=== PATIENT | male | born 1945 | race Caucasian/White ===

== ENCOUNTER → 2017-09-21 08:52 | Outpatient (CLI) | payer OTHER, SELFPAY ==
--- NOTE | 2017-09-21 09:06 | EKG12_ITS ---
Test Reason : PRE OP Blood Pressure : / mmHG Vent. Rate : 066 BPM Atrial Rate : 066 BPM P-R Int : 248 ms QRS Dur : 094 ms QT Int : 386 ms P-R-T Axes : 063 005 030 degrees QTc Int : 404 ms Sinus rhythm with 1st degree A-V block Otherwise normal ECG Confirmed by LESVIA BAIN, YONI ([id number]), acquisitions editor LUZ SO ([id number] on 09/25/2017 2:58:08 PM Referred By: KYLIE Confirmed By:YONI ALKHANI MD
[2017-09-21 09:20] LABS: Hematocrit 41.6 % (40-54); Hemoglobin 14.3 g/dl (13.0-16.5); Mean Corp Hgb Conc 34.4 g/gl (32-36); Mean Corpuscular Volume 96.1 fL (80-94); Mean Platelet Vol. 9.3 fl (6.2-12.0); Platelet Count 167 K/mm3 (150-450); RBC Distribution Width CV 13.3 % (11.6-14.6); RBC Distribution Width SD 46.7 fl (35.1-43.9); Red Blood Count 4.33 M/mm3 (4.6-6.2); Scan Indicated on CBC? Y/N NO; White Blood Count 5.1 K/mm3 (4.4-11.0)
[2017-09-21 09:40] LABS: Anion Gap 6 (5-15); BUN 16 mg/dL (7-18); BUN/Creat Ratio 15.8 RATIO (10-20); Calcium,Total 8.9 mg/dL (8.5-10.1); Chloride 110 mmol/L (98-107); Creatinine, Serum 1.01 mg/dL (0.70-1.30); EST Glomerular Filtration Rate 77 mL/min (>60); Est Glom Filt Rate - Afr Amer 93 mL/min (>60); Glucose 121 mg/dL (74-106); Potassium 4.2 mmol/L (3.5-5.1); Sodium Level 142 mmol/L (136-145)
[2017-09-21 09:48] LABS: Hemoglobin A1c 6.8 % (4.2-6.3)
== END ==
PROVIDERS: Physician Assistant; Family Provider Family Medicine; PCP Family Medicine; Visit Provider Orthopaedic Surgery
DX: Z01.818 Encounter for other preprocedural examination (principal); E11.9 Type 2 diabetes mellitus without complications; Z01.810 Encounter for preprocedural cardiovascular examination
CPT/HCPCS: 36415; 80048; 83036; 85027; 93005

== ENCOUNTER → 2017-09-27 12:47 | Outpatient (CLI) | payer SELFPAY ==
--- NOTE | 2017-09-27 12:43 | STE_ITS ---
Reason For Study: CAD/ASHD, PREOP Stress Results Protocol: Stress Echocardiogram Maximum Predicted HR: 148 bpm Target HR: 126 bpm% Maximum Pr edicted HR: 88 % DurationHeart Rate Stage (mm:ss) (bpm) BP BASELINE 68 130/70 RAY PROTOCOL- STAGE 1 3:00 10 0 132/76 RAY PROTOCOL- STAGE 2 3:00 12 1 148/78 RAY PROTOCOL- STAGE 3 0:30 13 0 / RECOVERY 90 122/62 Stress Duration: 6:30 mm:ss Maximum Stress HR: 130 bpm Baseline Echocardiogram Findings The estimated ejection fraction is 65 %. Stress Echo Wall motion Data Resting WMIntermediate WMStress WM Resting Wall Motion Wall Motion Stress No regional wall motion No regional wall motion abnormalities noted. abnormalities noted. EKG Data Normal intervals are noted. The patient exercised according to the regular Ray protocol for a total duration of 6:30. The maximum heart rate attained was 129 beats per minute. This was 87% of maximum predicted heart rate. The patient exercised into stage 3 of the Ray protocol. During stress, there were no ST or T wave changes noted to suggest ischemia. No clinical angina was noted. Interpretation Summary The estimated ejection fraction is 65 %. Normal, adequate, treadmill echocardiogram. Negative for ischemia by EKG and echocardiographic criteria. No anginal symptoms noted. Rare PVCs noted. Appropriate blood pressure response to exercise. Average exercise capacity for age. Final LVEF of 75%. No complications. Ordering Physician: Terry Barba Referring Physician: Terry Barba Performed By: Olinda Rice RDCS
== END ==
PROVIDERS: Family Provider Family Medicine; PCP Family Medicine; Visit Provider Internal Medicine Cardiovascular Disease
DX: I25.10 Atherosclerotic heart disease of native coronary artery without angina pectoris (principal); E78.5 Hyperlipidemia, unspecified; I10 Essential (primary) hypertension; I25.2 Old myocardial infarction; Z95.5 Presence of coronary angioplasty implant and graft; E11.9 Type 2 diabetes mellitus without complications
CPT/HCPCS: 93017; 93350

== ENCOUNTER → 2018-04-10 09:25 | Outpatient (CLI) | payer SELFPAY ==
[2018-04-08 14:27] VITALS: BMI 34.7
[2018-04-10 11:50] LABS: AST(SGOT) 24 U/L (15-37); Alanine Aminotransfer ALT/SGPT 34 U/L (16-61); Albumin, Serum 3.7 g/dL (3.2-5.0); Alkaline Phosphatase 56 U/L (45-117); Bilirubin, Direct 0.19 mg/dL (0.00-0.30); Cholesterol 114 mg/dL (200); Globulin 3.8 g/dL (2.2-4.2); High Density Lipoprotein 46 mg/dL; Protein, Total 7.5 g/dL (6.4-8.2); Triglycerides 121 mg/dL; Very Low Density Lipoprotein 24 mg/dL (5-40)
--- OUTSIDE RECORDS SUMMARY | 2018-05-27 05:36 | XMS RPT_ITS ---
:1945 Author Organization [place] Support Name Relationship Address Phone [facility] Unavailable [address] + [place] [address] JEROME, STARR Unavailable Unavailable + [facility] Unavailable Unavailable + [facility] Unavailable [address] + [place] [address] JEROME, STARR Unavailable [address] + [place] [address] [facility] Unavailable . + [place], [place] . [facility] Unavailable [address] + [place] [address] JEROME, STARR Unavailable [address] + [place] [address] JEROEM, ROSE Unavailable Unavailable + [facility] Unavailable [address] + [place] [address] JEROME, STARR Unavailable [address] + [place] [address] JEROME, ROSE Unavailable Unavailable + [facility] Unavailable [address] + [place] [address] [facility] Unavailable [address] + [place] [address] JEROME, STARR Unavailable [address] + [place] [address] JEROME, ROSE Unavailable Unavailable + [facility] Unavailable [address] + [place] [address] [facility] Unavailable [address] + [place] [address] CHETAN MARTÍNEZ Unavailable [address] + [place] [address] Care Team Providers Name Role Phone LELO MONROY (STEPHEN) Referring Unavailable ADAIR MERRILL Attending Unavailable ADAIR MERRILL Referring Unavailable DESIRAE ADAIR A Referring Unavailable DESIRAEBELLAADAIR A Attending Unavailable DESIRAE, ADAIR A Referring Unavailable DESIRAE, ADAIR A Referring Unavailable Terry Barba Attending Unavailable Terry Barba Referring Unavailable Desirae, Adair Primary Care Unavailable Terry Barba Attending Unavailable Adair Merrill Referring Unavailable Desirae, Adair Primary Care Unavailable Daljit Griffin Attending Unavailable Desirae, Adair Primary Care Unavailable Terry Barba Attending Unavailable Terry Barba Referring Unavailable Adair Merrill Primary Care Unavailable Terry Barba Attending Unavailable Evan Lakhani Attending Unavailable Daljit Griffin Referring Unavailable Terry Braba Attending Unavailable Adair Merrill Referring Unavailable PROBLEMS PROBLEMS DATE TYPE CONDITION / CODE ATTENDING STATUS SOURCE 04/10/2018 Unknown E78.5 - Terry Barba Active [facility] Hyperlipidemia, Community unspecified / Hospital E78.5(ICD-10) Repository 04/10/2018 Unknown I25.10 - Terry Barba Active [facility] Atherosclerotic heart Community disease of [facility] coronary artery Repository without angina pectoris / I25.10(ICD-10) 02/22/2018 Active Encounter for general NA Active [facility] adult medical [facility] Main examination without [place] abnormal findings / Repository Z00.00(ICD-10) 12/11/2016 Active Encounter for Active [facility] screening for Clinic Main malignant neoplasm of [place] colon / Repository Z12.11(ICD-10) 08/14/2017 Active Type 2 diabetes Active [facility] mellitus with Clinic Main hyperglycemia / [place] E11.65(ICD-10) Repository 12/11/2016 Active Disorder of prostate, NA Active [facility] unspecified / Clinic Main N42.9(ICD-10) [place] Repository 09/25/2017 Unknown Z01.818 - Encounter Gesler, Daljit Active [place] for other Community preprocedural Hospital examination / Repository Z01.818(ICD-10) 11/01/2017 Unknown I10 - Essential Evan Lakhani Active [facility] (primary) Community hypertension / Hospital I10(ICD-10) Repository 11/01/2017 Unknown I25.2 - Old Evan Lakhani Active [facility] myocardial infarction Community / I25.2(ICD-10) Hospital Repository 12/11/2016 Active Essential (primary) NA Active [facility] hypertension / Clinic Main I10(ICD-10) [place] Repository 11/06/2016 Active Mixed hyperlipidemia NA Active [facility] / E78.2(ICD-10) [facility] Main [place] Repository 08/08/2017 Active Atherosclerotic heart NA Active [facility] disease of [place] [facility] Main coronary artery [place] without angina Repository pectoris / I25.10(ICD-10) PROCEDURES PROCEDURES No Procedure Records FoundRESULTS RESULTS HOSP Observed: 04/17/2018 Status: COMPLETED Source: [place] 12:00 AM [facility] REPOSITORY Patient Update (FAMPWS) ESTELLA GALVAN ([id number]) 1945 M Date Time Provider Department 04/17/18 [facility]IR [facility]LL [facility] During your visit today, we recorded the following information about you: Allergies As of Date: 04/17/2018 Noted Allergy Reaction DIOVAN (VALSARTAN) 02/09/2005 3 - Cough CRESTOR (ROSUVASTATIN CALCIUM) 11/01/2006 14 - Other: See Comments Comments: rash and sore muscles METFORMIN 08/01/2005 6 - Diarrhea ZINC 02/09/2005 5 - Intolerance Comments: chest pain Date Reviewed: 02/22/2018 Reviewed by: Adair Merrill - Fully Assessed Order(s):LIPID PANEL (OUTSIDE) [[id number]] Order #: [id number] Prescriptions as of 04/17/2018 Sig: * ASPIRIN 81 MG TABLET 2 tablets daily ATENOLOL 50 MG TABLET Take 1 tablet by mouth once d* CINNAMON BARK 500 MG CAPSULE Take 500 mg by mouth. CLOTRIMAZOLE-BETAMETHASONE 1 * Apply 1 application to affect* VITAMIN D2 ORAL Take 2,000 Units by mouth. FLURBIPROFEN 100 MG TABLET TAKE ONE TABLET BY MOUTH TWIC* GLIMEPIRIDE 4 MG TABLET Take 1 tablet by mouth daily * QDUAQFSUJFM-PDGNEATGG-XPH C-M* Take 1 capsule by mouth twice* LOSARTAN 50 MG-HYDROCHLOROTHI* Take 1 tablet by mouth once d* METFORMIN ER 500 MG TABLET,EX* Take 1 tablet by mouth twice * UATSVPBSPOJH-YHQIELJO-PQNAPO * Take 1 tablet by mouth once d* NITROGLYCERIN 0.4 MG SUBLINGU* Dissolve 1 tablet under the t* ORPHENADRINE CITRATE ER 100 M* Take 1 tablet by mouth once d* SIMVASTATIN 80 MG TABLET Take 1 tablet by mouth daily * Problem List As Of Date 04/17/2018 Noted Resolved Generalized osteoarthrosis, unspecified site [M*INVALID FOR* Mixed hyperlipidemia [E78.2] INVALID FOR* Coronary atherosclerosis [I25.10] INVALID FOR* More... History of coronary artery stent placement [Z95*INVALID FOR* More... KARLA (obstructive sleep apnea) [G47.33] INVALID FOR* More... Ex-smoker [Z87.891] INVALID FOR* More... Well adult exam [Z00.00] INVALID FOR* More... Phimosis [N47.1] INVALID FOR* Benign prostatic hyperplasia without lower urin*INVALID FOR* Prostate disorder [N42.9] INVALID FOR* Hypertension, essential [I10] INVALID FOR* Screening for colon cancer [Z12.11] INVALID FOR* Microscopic hematuria [R31.29] INVALID FOR* Diabetic eye exam (HCC) [Z01.00, E11.9] INVALID FOR* More... controlled type 2 diabetes mellitus without com*INVALID FOR* Nocturnal leg cramps [G47.62] INVALID FOR* Encounter Status:Closed by ADAIR MERRILL on 04/17/18 LIVER PROFILE Collected: 04/10/2018 Status: F Source: [place] 9:33 AM [facility] REPOSITORY TYPE CODE TESTS RESULT OUT OF RANGE REFERENCE UNITS LAB L501.1500 6.4-8.2 g/dL Normal T PROT 7.5 LAB L501.1800 3.2-5.0 g/dL Normal ALB 3.7 LAB L501.1950 2.2-4.2 g/dL Normal GLOB 3.8 LAB L501.4100 15-37 U/L Normal AST 24 LAB L501.4305 45-117 U/L Normal ALK P 56 LAB L501.4405 16-61 U/L Normal ALT 34 LAB L501.4600 0.20-1.00 mg/dL Normal T BILI 0.60 LAB L501.4700 0.00-0.30 mg/dL Normal D BILI 0.19 Performed By: #### L500.3400, L500.4100 #### [facility] [address] [place], [place], [id number] LIPID PROFILE Collected: 04/10/2018 Status: F Source: [place] 9:33 AM [facility] REPOSITORY TYPE CODE TESTS RESULT OUT OF RANGE REFERENCE UNITS LAB L501.4900 200 mg/dL Normal CHOL 114 Result Comment: <200 mg/dL Desirable 200-240 mg/dL Borderline >240 mg/dL High Risk LAB L501.5000 mg/dL Normal TRIG 121 Result Comment: The drugs N-Acetylcysteine and Metamizole may falsely depress this assay. Serum Triglycerides Reference Interval Normal <150 mg/dL Borderline high 150 - 199 mg/dL High 200 - 499 mg/dL Very High > or = 500 mg/dL LAB L501.6400 mg/dL Normal HDL 46 Result Comment: The drugs N-Acetylcysteine and Metamizole may falsely depress this assay. Reference Range HDL <40 mg/dL Low HDL Cholesterol HDL >or= 60 mg/dL High HDL Cholesterol LAB L501.6500 0-130 mg/dL Normal LDL 44 LAB L501.6600 5-40 mg/dL Normal VLDL 24 Performed By: #### L500.3400, L500.4100 #### [facility] [address] [place], [place], [address] CARDIOLOGY VISIT Observed: 04/08/2018 Status: F Source: [place] REPORT 2:36 PM [facility] REPOSITORY [facility] [address] [place] [address] OFFICE VISIT Date of Service: 04/08/18 MR#: [id number] Acct: [id number] Name: ESTELLA GALVAN Rep #: [id number] : 1945 Provider: Terry Barba MD Age/Sex: 73/M Location: [facility] Status: Signed HPI HPI Chief Complaint: Routine f/u Details: Referring physician: Dr. Luis Bear It was a pleasure seeing your patient, Estella Galvan, today in our office. He is returning for followup of his coronary artery disease. As you know he is a very pleasant 73-year-old nondiabetic gentleman with a history of hypertension, hypercholesterolemia, coronary artery disease status post acute inferior wall myocardial infarction with bare metal stenting placed at [facility] to the mid right coronary artery . Since that time he has been doing relatively well. Since his last visit Mr. Galvan has had no chest, neck, jaw, arm discomfort to suggest angina,, pedal edema, palpitations, near syncope, or syncope. He underwent a previous stress echocardiogram on 05/24/11 which was negative for inducible ischemia, and he has an EF of 55%. He then had a repeat stress echocardiogram done in January 2013 which was also negative for inducible ischemia. 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 As part of his cardiac workup, he also underwent a repeat stress echo on 02/13/15 which was negative for inducible ischemia.patient continues to exercise by mowing his grass with an old-fashioned lawnmower without any difficulty. He has no anginal symptoms. Part of his workup for his spinal surgery by Dr. Hernandez, he underwent a stress echocardiogram on 09/27/17 which was negative for inducible ischemia. From a cardiac standpoint he denies any chest pain, angina, shortness of breath or dyspnea on exertion. In our office today his blood pressure is 140/60, pulse is 72 and regular. His physical exam is as below. His lipids as of 01/25/15 showed HDL of 45 and LDL 41. lipids as of 07/19/15 showing HDL 47 and LDL of 57. His lipids as of 07/08/16 showed LDL 37 and HDL 44. His lipids as of 01/20/17 shown LDL of 37 and an HDL of 45. Repeat lipids are pending per Intake Vital Signs04/08/18 Height 5 ft 6 in 04/08/18 Weight: 215 lb 04/08/18 Body Mass Index (BMI) 34.7 04/08/18 Blood Pressure 140/60 H Intake Visit Reasons: 6 M FU Allergies rosuvastatin [From Crestor] Allergy (Intermediate, Verified 04/08/18 14:29) Rash Medications antiarthritic combination no.2 900 mg tablet See Rx Instructions PO .q day tab 08/18/17 [History Confirmed 04/08/18] aspirin 81 mg tablet,delayed release 81 mg PO QDAY 08/18/17 [History Confirmed 04/08/18] cholecalciferol (vitamin D3) 2,000 unit tablet 2,000 unit PO QDAY 08/18/17 [History Confirmed 04/08/18] flurbiprofen 100 mg tablet 100 mg PO BID 08/18/17 [History Confirmed 04/08/18] glimepiride 4 mg tablet 4 mg PO QAM 08/18/17 [History Confirmed 04/08/18] metformin 500 mg tablet 500 mg PO BID 08/18/17 [History Confirmed 04/08/18] multivitamin tablet 1 tab PO QDAY 08/18/17 [History Confirmed 04/08/18] orphenadrine citrate ER 100 mg tablet,extended release 100 mg PO .q day tab 08/18/17 [History Confirmed 04/08/18] simvastatin 80 mg tablet 80 mg PO QPM #90 tab 08/20/17 [Rx Confirmed 04/08/18] atenolol 25 mg tablet 25 mg PO DAILY #90 tab 02/11/18 [Rx Confirmed 04/08/18] losartan 50 mg-hydrochlorothiazide 12.5 mg tablet 1 tab PO QDAY #90 tab 02/11/18 [Rx Confirmed 04/08/18] nitroglycerin 0.4 mg sublingual tablet 0.4 mg SUBLINGUAL Q5- 15M PRN #25 tab 04/08/18 [Rx Confirmed 04/08/18] [facility] Medical History Hyperlipidemia (Chronic) Hypertension (Chronic) Nonrheumatic mitral (valve) prolapse (Chronic) History of anterior wall myocardial infarction (Chronic) Atherosclerotic heart disease of [place] coronary artery without angina pectoris (Chronic) Diabetes mellitus type II, controlled (Chronic) Surgical History Stented coronary artery (Chronic) Family History Father , age 81 CAD (coronary artery disease) History of angioplasty, stent, CABG and valvular heart disease Mother , age 42 Heart disease Brother No problems noted. Sister , age 57 of renal cancer Renal cancer Social History Smoking Status: Former smoker ROS Const Const: Positive for other (Feels well); negative for fatigue, weakness, body ache, fever(s), headache(s), chills, frequent falls, night sweats, daytime sleepiness, difficulty sleeping, excessive sweating, weight gain, weight loss, increased appetite, poor appetite or anorexia Eyes Eyes: Negative for blind spots, loss of peripheral vision, transient loss of vision, blurry vision, change in vision, double vision, floaters, tunnel vision or other ENT ENT: Negative for headache(s), dizziness, hearing loss, tinnitus, Nosebleed/epistaxis, balance problems, post nasal drip, lip swelling, tongue swelling, bleeding gums, hoarseness, neck pain, dry mouth or other Cardio Chest Pain: No Palpitations: No Edema: None Muscle aches with walking: None Resp Respiratory: Negative for SOB with activity, SOB at rest, SOB orthopnea\SOB lying down, Cough, Coughing up blood/hemoptysis, chest congestion, pain on inspiration, snoring, stridor, wheezing, crackles, paroxysmal nocturnal dyspnea or other GI GI: Negative nausea, vomiting, heartburn, constipation, belching, bloating, cramping, vomiting blood/hematemesis, bright, red blood in stools, black,tarry stools, loose stools, Difficulty Swallowing or other : Negative for hematuria, frequent nighttime urination/ nocturia, erectile dysfunction or abnormal vaginal bleeding Musc Musc: Negative for balance problems, muscle aches/ myalgia, muscle weakness or joint pain Skin Skin: Negative redness, non-healing lesions, rash, unusual bruising, skin ulcer, wounds, jaundice or other Neuro Neuro: Negative for weakness, headache(s), frequent falls, blurry vision, double vision, dizziness, lightheadedness, near syncope, syncope, orthostatic symptoms, confusion, memory loss, restless legs, vertigo, seizures, lack of coordination or other Jesus Hematologic/Lymphatic: Negative for easy bleeding, easy bruising, enlarged lymph nodes or other Endo Endo: Negative for fatigue, excessive sweating, cold intolerance, heat intolerance, flushing, increased thirst/drinking, increased hunger, hair loss, hair growth or other Psych Psych: Negative for anxiety, depression, thoughts of harming anyone, thoughts of harming yourself, visual hallucinations, panic attacks or audible hallucinations Allergy Allergy/Immunology: Negative for lip swelling, Negative for tongue swelling, Negative for rash, Negative for throat swelling, Negative for hives Cardiology Exam Const Appearance: cooperative, healthy appearing and no acute distress Nutritional Appearance: well nourished Orientation: alert, oriented x3 and oriented to person Head Head: normal to inspection, atraumatic and normocephalic Nose: external nose normal Face and Sinus: face symmetric Mouth: oral mucosae normal Eyes General: appearance normal, both eyes and all related structures Eyelids: eyelids normal Conjunctivae: conjunctivae normal Pupils: PERRL and normal by confrontation EOM: EOM intact bilaterally Neck Neck: normal visual inspection and full ROM Carotids: normal carotid upstroke Chest Chest inspection: normal inspection of the chest Auscultation: Bilateral: Clear to Auscultation Cardio Palpation: normal PMI Rate: regular rate Rhythm: regular rhythm Heart sounds: S1 normal and S2 normal GI GI: normal to inspection, no hepatosplenomegaly and bowel sounds present Neuro General: alert, oriented x3, awake, CN's II-XI intact bilaterally and moves all extremities Skin Skin: no rashes or lesions noted Extremities Pulses: Normal: Right Femoral Pulse, Left Femoral Pulse, Right Dorsalis Pedis Pulse, Left Dorsalis Pedis Pulse, Right Posterior Tibial Pulse, Left Posterior Tibial Pulse, Right Radial Pulse, Left Radial Pulse Lower Extremity Edema: None: Bilateral Psych Psychological: normal affect Assessment AND Plan 1. Atherosclerotic heart disease of [place] coronary artery without angina pectoris I25.10 anterior MS,08/01/1997 PTCA and BMS to mid RCA per Dr. Tobar @ [facility] Plan 1. Coronary artery disease: No exertional anginal symptoms at this time. No indication for any additional testing. Recommended he continue his baby aspirin, atenolol, Hyzaar. I encouraged him to continue to exercise. His stress test in August 2017 was negative for inducible ischemia and he underwent spinal surgery without complications or difficulty and he feels much better. Orders Orders: 2. Hyperlipidemia E78.5 Plan 2. Hyperlipidemia: His LDL and HDL cholesterol were at goal. Repeat lipid profile pending. Continue Zocor. 3. Return office in 6 months. This note was generated using a voice recognition system and there may be incorrect words, spelling or punctuation that were not noted when reviewing the office note prior to saving. Orders Orders: Plan Detail Other Medications New: Follow Up +6M ([place]) Coding Level of Care Code Off vis,est,level 3 Diagnoses Atherosclerotic heart disease of [place] coronary artery without angina pectoris I25.10 Hyperlipidemia E78.5 Coding Level of Care Code Off vis,est,level 3 Diagnoses Atherosclerotic heart disease of [place] coronary artery without angina pectoris I25.10 Hyperlipidemia E78.5 04/08/18 1436 <Electronically signed by Terry Barba MD> Date Terry Barba MD Cosigner Signature: Date (if applicable) CC: Adair Merrill MD FECAL OCCULT BLD Collected: 04/08/2018 Status: F Source: [facility] 7:00 AM [facility] REPOSITORY TYPE CODE TESTS RESULT OUT OF REFERENCE UNITS RANGE LAB IFO Negative Immuno Negative FOB Result Comment: This test was developed and its performance characteristics determined by [facility] [place] (-[facility]). It has not been cleared or approved by the FDA. -[facility] is regulated under CLIA as qualified to perform high-complexity testing. This test is used for clinical purposes. It should not be regarded as investigational or for research. Performed By: #### IFOBT #### [facility] [address] [place], [place] [address] PROGRESS Observed: 02/22/2018 Status: COMPLETED Source: [place] 3:13 PM [facility] REPOSITORY HNO ID: [id number] Author: Adair Merrill Service: (none) Author Type: Physician Type: Progress Notes Filed: 02/22/2018 4:38 PM Note Text: Chief Complaint Patient presents with: Physical Imm/Inj: Flu Vaccine HPI Estella Galvan is a 73 year old male who presents here today for WAE and routine. Patient with Hx of DM type 2, HTN, Hyperlipidemia, CAD, COPD. Patient has been doing ok. Continues routine use of CPAP and notes benefit. Past medical history, appointments, medications, allergies reviewed. Previous Medical History PAST MEDICAL HISTORY Diagnosis Date - Benign prostatic hyperplasia without lower urinary tract symptoms 12/11/2016 - controlled type 2 diabetes mellitus without complication, without long-term current use of insulin (HCC) 08/14/2017 - Coronary atherosclerosis 05/02/2007 - Ex-smoker 12/11/2016 Started at age 17 yo, Up to 7-10 pipes a day. Quite at age 53 - Generalized osteoarthrosis, unspecified site 06/16/2005 - History of coronary artery stent placement 12/19/2012 - Hypertension, essential 12/11/2016 - Mixed hyperlipidemia 11/07/2005 - KARLA (obstructive sleep apnea) 12/19/2012 - Phimosis 12/11/2016 - Type II or unspecified type diabetes mellitus without mention of complication, not stated as uncontrolled 12/23/2014 Previous Surgical History PAST SURGICAL HISTORY Procedure Laterality Date - FECAL OCCULT BLOOD TEST 12/29/2016 negative - PAST SURGICAL HISTORY OF 07/09/2017 right carpal tunnel repair - PAST SURGICAL HISTORY OF 09/2017 C6, C7 block and plates - STRESS TEST 09/27/2017 negative - TOTAL KNEE REPLACEMENT Right - TOTAL KNEE REPLACEMENT Left Family History FAMILY HISTORY Problem Relation Age of Onset - Coronary Artery Disease Father after CABG at 81 - Cancer Sister renal - Kidney Disease Brother - other (Funk's Dz) Brother - Coronary Artery Disease Paternal Uncle 70's Patient Allergies ALLERGIES Allergen Reactions - Diovan [Valsartan] Cough - Crestor [Rosuvastat* Other: See Comments rash and sore muscles - Metformin Diarrhea - Zinc Intolerance chest pain Current Medications Current Outpatient Prescriptions on File Prior to Visit: metFORMIN ER (GLUCOPHAGE XR) 500 mg 24 hr tablet Take 1 tablet by mouth twice daily. Flurbiprofen 100 mg tablet TAKE ONE TABLET BY MOUTH TWICE DAILY FOR ARTHRITIS glimepiride (AMARYL) 4 mg tablet Take 1 tablet by mouth daily with breakfast. clotrimazole-betamethasone (LOTRISONE) cream Apply 1 application to affected area twice daily. ERGOCALCIFEROL, VITAMIN D2, (VITAMIN D2 ORAL) Take 2,000 Units by mouth. Frthtovemut-Cvzgtjzbe-Fyb C-Mn (GLUCOSAMINE CHONDROITIN MAXSTR) 500-400 mg cap Take 1 capsule by mouth twice daily. atenolol (TENORMIN) 50 mg tablet Take 1 tablet by mouth once daily. orphenadrine ER (NORFLEX) 100 mg tablet Take 1 tablet by mouth once daily. at night for leg cramps as needed nitroglycerin sublingual (NITROQUICK) 0.4 mg SL tablet Dissolve 1 tablet under the tongue as directed. EVERY 5 MIN X3 losartan-hydrochlorothiazide (HYZAAR) 50-12.5 mg per tablet Take 1 tablet by mouth once daily. simvastatin (ZOCOR) 80 mg tablet Take 1 tablet by mouth daily at bedtime. Per Dr. Barba Cinnamon Bark (CINNAMON) 500 mg cap Take 500 mg by mouth. Hzcbvfwdmjrpx-Faugtbjs-Vcuydk (CENTRUM SILVER) Tab Take 1 tablet by mouth once daily. Aspirin 81 mg ORAL Tab 2 tablets daily No current facility-administered medications on file prior to visit. Social History Social History Marital status: Spouse name: Years of education: Number of children: Social History Main Topics Smoking status: Former Smoker Packs/day: 0.00 Years: 0.00 Quit date: 07/29/1997 Smokeless tobacco: Former User Alcohol use: No Drug use: No Sexual activity: Not Currently Review of Symptoms REVIEW OF SYSTEMS GENERAL: No weight loss, malaise or fevers HEENT: Negative for frequent or significant headaches, significant change in vision, significant vision problems, significant ear problems or hearing loss, nasal discharge, or nose bleeds, sore throat, difficulty swallowing, mouth lesions, hoarseness NECK: Negative for lumps, goiter, pain and significant neck swelling RESPIRATORY: Negative for cough, hemoptysis, wheezing, COPD, dyspnea or shortness of breath CARDIOVASCULAR: Negative for chest pain, increased leg swelling, hypertension, CHF or palpitations GI: No nausea, vomiting, or diarrhea, No heartburn or reflux symptoms and no blood : No history of dysuria, frequency or blood MUSCULOSKELETAL: Negative for new or changes in typical joint pain,, back pain or muscle pain SKIN: Negative for lesions, rash, and itching PSYCH: Negative for sleep disturbance, mood disorder and recent psychosocial stressors HEMATOLOGY/LYMPHOLOGY: Negative for prolonged bleeding, bruising easily or swollen nodes ENDOCRINE: Negative for cold or heat intolerance and no symptoms of low BS's NEURO: No history of headaches, syncope, paralysis, seizures or tremors and no symptoms of low BS's EXAM: BP 136/60 (BP Site: Right Arm, BP Position: Sitting, BP Cuff Size: Large Adult) Pulse 70 Resp 12 Ht 165.1 cm (5' 5) Wt 95.7 kg (211 lb) BMI 35.11 kg/m? General Appearance: Well appearing, alert, in no acute distress, well-hydrated, well nourished. and Obese. Skin: Skin color, texture, turgor normal, no suspicious rashes or lesions. Head: Normocephalic, no masses, lesions, tenderness or abnormalities. Eyes: Anicteric sclera. Pupils are equally round and reactive to light. Extraocular movements are intact. . Ears: External ears normal, canals clear. Nose/Sinuses: Nares normal, septum midline, mucosa normal, no drainage or sinus tenderness. Oropharynx: Lips, mucosa, and tongue normal, teeth and gums normal, oropharynx normal. Neck: Supple, no adenopathy; thyroid symmetric, normal size, no bruits. Lungs: Lungs clear to auscultation. No wheezing, rhonchi, rales. Heart: RRR without murmur, gallop, or rubs. No ectopy. Abdomen: Normal abdominal exam, Abdomen soft, non-tender. Bowel sounds normal. No masses, organomegaly. Extremities: No deformities, edema, skin discoloration,. Musculoskeletal: Spine range of motion normal. Muscular strength intact, No joint swelling, deformity, or tenderness. Peripheral Pulses: Normal. Neurologic: Gait normal. Reflexes normal and symmetric. Sensation to light touch and crainal nerves 2-12intact.. Genitalia: Normal, Penis normal. No urethral discharge. Scrotum normal to palpation. No hernia. Four skin retractable.. Rectal: Normal exam. Prostate enlarged but smooth firm capsule. Diabetic Foot Exam: Feet: Shoes and socks removed, no deformities, ulcers, calluses, normal distal pulses, sensitive to 10 gm microfilament and vibratory exam within normal limits Skin: warm and dry Vascular Pulses: Normal SEMMES-NIHARIKA MONOFILAMENT TESTING Left Foot Right Foot Dorsal Surface Intact Dorsal Surface Intact Plantar Surface Intact Plantar Surface Intact Health Maintenance List BP CONTROLLED (<130/80) due on 1963 HEPATITIS C SCREENING due on 1989 FECAL OCCULT BLOOD due on 12/29/2017 INFLUENZA(1) due on 12/29/2017 STATIN MED ADHERENCE due on 02/28/2018 DIABETES MED ADHERENCE due on 02/28/2018 DTAP,TDAP,TD(2 - Td) due on 05/22/2018 URINE ALBUMIN:CREATININE RATIO due on 08/08/2018 ANNUAL PCP TEAM CHRONIC DISEASE VISIT due on 08/14/2018 HBA1C due on 08/19/2018 DILATED RETINAL EXAM due on 12/18/2018 LDL CHOLESTEROL due on 2019 DIABETIC FOOT EXAM due on 02/22/2019 ABDOMINAL AORTIC ANEURYSM SCREENING TOPIC Completed ADULT PREVNAR-13 Completed PNEUMOVAX AGE 65 AND OVER WITH 5YR LOOKBACK Completed Data reviewed Component Latest Ref Rng AND Units 08/08/2017 09/21/2017 2018 WBC 3.70 - 11.00 k/uL 5.1 5.35 RBC 4.20 - 6.00 m/uL 4.33 4.41 Hemoglobin 13.0 - 17.0 g/dL 14.8 Hematocrit 39.0 - 51.0 % 43.8 MCV 80.0 - 100.0 fL 96.1 99.3 MCH 26.0 - 34.0 pG 33.0 33.6 MCHC 30.5 - 36.0 g/dL 34.4 33.8 RDW-CV 11.5 - 15.0 % 13.0 Platelet Count 150 - 400 k/uL 187 MPV 9.0 - 12.7 fL 9.3 10.5 Neut% % 42.8 Abs Neut (ANC) 1.45 - 7.50 k/uL 2.27 Lymph% % 40.0 Abs Lymph 1.00 - 4.00 k/uL 2.14 Republic% % 12.5 Abs Republic <0.87 k/uL 0.67 Eosin% % 3.6 Abs Eosin <0.46 k/uL 0.19 Baso% % 1.1 Abs Baso <0.11 k/uL 0.06 Nucleated Reds 0 /100 WBC 0.0 Absolute nRBC <0.01 k/uL <0.01 Diff Type Auto Diff Protein, Total 6.3 - 8.0 g/dL 8.0 Albumin 3.9 - 4.9 g/dL 4.4 Calcium 8.5 - 10.2 mg/dL 9.8 Bilirubin, Total 0.2 - 1.3 mg/dL 0.5 Alkaline Phosphatase 36 - 108 U/L 47 AST 14 - 40 U/L 21 Glucose 74 - 106 MG/DL 136 (H) 121 (A) BUN 9 - 24 mg/dL 12 Creatinine 0.6 - 1.3 MG/DL 0.99 1.01 Sodium 136 - 145 MEQ/L 142 142 Potassium 3.5 - 5.1 MEQ/L 4.5 4.2 Chloride 98 - 107 MEQ/L 103 110 (A) CO2 22 - 30 mmol/L 26 Anion Gap 13 6 ALT 10 - 54 U/L 22 eGFR- >60 eGFR-All Other Races . >60 BICARBONATE 26.0 Urea Nitrogen 6 - 20 mg/dL 15.8 GFR mL/MIN 77 GFR AFR AMER mL/MIN 93 Calcium 8.8 - 10.5 MG/DL 8.9 HGB 14 - 16.5 g/dL 14.3 HCT 39 - 55 % 41.6 RDW 140 - 440 K/uL 13.3 (A) Platelet 140 - 440 K/uL 167 Cholesterol, Total <200 mg/dL 128 110 Triglyceride <150 mg/dL 148 110 HDL Cholesterol >39 mg/dL 51 43 LDL Cholesterol <100 mg/dL 47 45 Non HDL Cholesterol <130 mg/dL 77 67 Fasting Time hrs 12 12 VLDL Cholesterol <30 mg/dL 30 (H) 22 TC:HDL Ratio <5.10 2.51 2.56 LDL:HDL Ratio <2.54 0.92 1.05 Hemoglobin A1C 4.3 - 5.6 % 6.8 (A) 7.0 (H) Estimated Average Glucose mg/dL 154 PSA 0.00 - 2.59 ng/mL 1.01 A/P ASSESSMENT/PLAN: 1. Well adult exam - ICD9: V70.0, ICD10: Z00.00 (primary diagnosis) - Completed Digital Rectal exam - Recommended regular aerobic exercise. - Follow up for annual exam in one year. - FECAL OCCULT BLOOD TEST 2. controlled type 2 diabetes mellitus without complication, without long-term current use of insulin (HCC) - ICD9: 250.02, ICD10: E11.65 Controlled. - Continue current medications - Encouraged regular aerobic exercise and weight loss - Daily Asprin therapy recommended - BP goal of <130/80 - LDL goal of <100 - Patient to work on improved diet to get A1c back below 7% 3. Diabetic eye exam (HCC) - ICD9: V72.0, 250.00, ICD10: Z01.00, E11.9 - Up to date 4. Hypertension, essential - ICD9: 401.9, ICD10: I10 - good control - Continue current medication(s) - Recommended regular aerobic exercise. - Recommend home blood pressure monitoring, to bring results in on next visit - Goal of BP <130/80 5. Mixed hyperlipidemia - ICD9: 272.2, ICD10: E78.2 - good control - Continue current medication. - Encouraged following a low fat, low cholesterol diet. - Discussed the benefits of regular aerobic exercise and weight loss. - Encouraged following a low carbohydrate, healthy oil intake diet. 6. Atherosclerosis of [place] coronary artery of [place] heart without angina pectoris - ICD9: 414.01, ICD10: I25.10 - Clinically stable no changes and cont f/u with cardio 7. KARLA (obstructive sleep apnea) - ICD9: 327.23, ICD10: G47.33 - Doing well and benefiting from CPAP. 8. Benign prostatic hyperplasia without lower urinary tract symptoms - ICD9: 600.00, ICD10: N40.0 - No clinical issues. 9. Nocturnal leg cramps - ICD9: 327.52, ICD10: G47.62 - Cont nightly norflex. 10. Need for vaccination - ICD9: V05.9, ICD10: Z23 - INFLUENZA SEASONAL HIGH DOSE AGE 65+ 11. Screening for colon cancer - ICD9: V76.51, ICD10: Z12.11 Check - FECAL OCCULT BLOOD TEST Signed Prescriptions Disp Refills orphenadrine ER (NORFLEX) 100 mg tablet 30 tablet 5 Sig: Take 1 tablet by mouth once daily. at night for leg cramps as needed BRENNEN: No F/u 6 months routine check A1c, CMP, FLP, UA, urine albumin and CBC prior. Adair Merrill MD CNOV Observed: 02/22/2018 Status: COMPLETED Source: [place] 3:00 PM [facility] REPOSITORY Office Visit (FAMPWS) JEROMEESTELLA ([id number]) 1945 M Date Time Provider Department 02/22/18 3:00 PM ADAIR MERRILL FAMPWS During your visit today, we recorded the following information about you: Pulse Respiration Blood pressure Weight 70/minute 12/minute 136/60 95.7 kg Height 1.651 m Katelyn Taylor Cma 02/22/2018 4:38 PM Signed 73 year old male here for INACTIVATED INFLUENZA VACCINE. [id number] Season Patient is identified by name and date of : Yes [] CONTRAINDICATIONS color enhanced section Age less than 6 months? No Allergy to eggs, chicken, chicken feathers, or chicken dander? No Allergy to thimerosal (a preservative) or formaldehyde, gelatin? No History of severe reaction to any vaccine component or a previous dose of influenza vaccination? No History of Guillain-[place] Syndrome within 6 weeks after a previous influenza vaccine? No Patient is not moderately or severely ill? No Current temperature greater or equal to 100.4F? No History of Bone Marrow Transplant prior 6 months or solid organ transplant in the past 3 months ? No History of fainting after a prior injection or medical procedure? No- ? If patient has fainted in the past, the CDC recommends sitting or lying down for 15 minutes after the vaccination. [] VERIFICATION color enhanced section Was the answer Yes for any of the above contraindications? No contraindications present. Acceptable to proceed with vaccine. Patient/guardian agrees the above answers are true to the best of their knowledge? Yes Flu vaccine information sheet given? Yes See immunization activity in [facility] for details of immunizations adminstered today. Patient age: [age] year old For The 2249-5222 Flu Season 6-35 months old: Fluzone 0.25 ml - IM (Preservative Free) 3 years of age: Fluzone 0.5 ml - IM (Preservative Free) 3 years and older: Fluzone 0.5 ml- IM-(with Preservatives) 65+ years old: 2-49 years old Fluzone High-Dose 0.5 ml - IM (Preservative Free) FLUMIST- intranasal REMEMBER: If patient is less than 9 years of age and this is the first vaccine of Influenza to be received in any flu season, they should receive a second dose in one months time. Adair Merrill MD 02/22/2018 4:38 PM Signed Chief Complaint Patient presents with: Physical Imm/Inj: Flu Vaccine HPI Estella Galvan is a 73 year old male who presents here today for WAE and routine. Patient with Hx of DM type 2, HTN, Hyperlipidemia, CAD, COPD. Patient has been doing ok. Continues routine use of CPAP and notes benefit. Past medical history, appointments, medications, allergies reviewed. Previous Medical History PAST MEDICAL HISTORY Diagnosis Date - Benign prostatic hyperplasia without lower urinary tract symptoms 12/11/2016 - controlled type 2 diabetes mellitus without complication, without long-term current use of insulin (HCC) 08/14/2017 - Coronary atherosclerosis 05/02/2007 - Ex-smoker 12/11/2016 Started at age 17 yo, Up to 7-10 pipes a day. Quite at age 53 - Generalized osteoarthrosis, unspecified site 06/16/2005 - History of coronary artery stent placement 12/19/2012 - Hypertension, essential 12/11/2016 - Mixed hyperlipidemia 11/07/2005 - KARLA (obstructive sleep apnea) 12/19/2012 - Phimosis 12/11/2016 - Type II or unspecified type diabetes mellitus without mention of complication, not stated as uncontrolled 12/23/2014 Previous Surgical History PAST SURGICAL HISTORY Procedure Laterality Date - FECAL OCCULT BLOOD TEST 12/29/2016 negative - PAST SURGICAL HISTORY OF 07/09/2017 right carpal tunnel repair - PAST SURGICAL HISTORY OF 09/2017 C6, C7 block and plates - STRESS TEST 09/27/2017 negative - TOTAL KNEE REPLACEMENT Right - TOTAL KNEE REPLACEMENT Left Family History FAMILY HISTORY Problem Relation Age of Onset - Coronary Artery Disease Father after CABG at 81 - Cancer Sister renal - Kidney Disease Brother - other (Funk's Dz) Brother - Coronary Artery Disease Paternal Uncle 70's Patient Allergies ALLERGIES Allergen Reactions - Diovan [Valsartan] Cough - Crestor [Rosuvastat* Other: See Comments rash and sore muscles - Metformin Diarrhea - Zinc Intolerance chest pain Current Medications Current Outpatient Prescriptions on File Prior to Visit: metFORMIN ER (GLUCOPHAGE XR) 500 mg 24 hr tablet Take 1 tablet by mouth twice daily. Flurbiprofen 100 mg tablet TAKE ONE TABLET BY MOUTH TWICE DAILY FOR ARTHRITIS glimepiride (AMARYL) 4 mg tablet Take 1 tablet by mouth daily with breakfast. clotrimazole-betamethasone (LOTRISONE) cream Apply 1 application to affected area twice daily. ERGOCALCIFEROL, VITAMIN D2, (VITAMIN D2 ORAL) Take 2,000 Units by mouth. Shjtheunwic-Qlwgnrtmg-Zwp C-Mn (GLUCOSAMINE CHONDROITIN MAXSTR) 500-400 mg cap Take 1 capsule by mouth twice daily. atenolol (TENORMIN) 50 mg tablet Take 1 tablet by mouth once daily. orphenadrine ER (NORFLEX) 100 mg tablet Take 1 tablet by mouth once daily. at night for leg cramps as needed nitroglycerin sublingual (NITROQUICK) 0.4 mg SL tablet Dissolve 1 tablet under the tongue as directed. EVERY 5 MIN X3 losartan-hydrochlorothiazide (HYZAAR) 50-12.5 mg per tablet Take 1 tablet by mouth once daily. simvastatin (ZOCOR) 80 mg tablet Take 1 tablet by mouth daily at bedtime. Per Dr. Barba Cinnamon Bark (CINNAMON) 500 mg cap Take 500 mg by mouth. Xfgvtidcwrbyt-Nrvlecon-Ltkbil (CENTRUM SILVER) Tab Take 1 tablet by mouth once daily. Aspirin 81 mg ORAL Tab 2 tablets daily No current facility-administered medications on file prior to visit. Social History Social History Marital status: Spouse name: Years of education: Number of children: Social History Main Topics Smoking status: Former Smoker Packs/day: 0.00 Years: 0.00 Quit date: 07/29/1997 Smokeless tobacco: Former User Alcohol use: No Drug use: No Sexual activity: Not Currently Review of Symptoms REVIEW OF SYSTEMS GENERAL: No weight loss, malaise or fevers HEENT: Negative for frequent or significant headaches, significant change in vision, significant vision problems, significant ear problems or hearing loss, nasal discharge, or nose bleeds, sore throat, difficulty swallowing, mouth lesions, hoarseness NECK: Negative for lumps, goiter, pain and significant neck swelling RESPIRATORY: Negative for cough, hemoptysis, wheezing, COPD, dyspnea or shortness of breath CARDIOVASCULAR: Negative for chest pain, increased leg swelling, hypertension, CHF or palpitations GI: No nausea, vomiting, or diarrhea, No heartburn or reflux symptoms and no blood : No history of dysuria, frequency or blood MUSCULOSKELETAL: Negative for new or changes in typical joint pain,, back pain or muscle pain SKIN: Negative for lesions, rash, and itching PSYCH: Negative for sleep disturbance, mood disorder and recent psychosocial stressors HEMATOLOGY/LYMPHOLOGY: Negative for prolonged bleeding, bruising easily or swollen nodes ENDOCRINE: Negative for cold or heat intolerance and no symptoms of low BS's NEURO: No history of headaches, syncope, paralysis, seizures or tremors and no symptoms of low BS's EXAM: BP 136/60 (BP Site: Right Arm, BP Position: Sitting, BP Cuff Size: Large Adult) Pulse 70 Resp 12 Ht 165.1 cm (5' 5) Wt 95.7 kg (211 lb) BMI 35.11 kg/m? General Appearance: Well appearing, alert, in no acute distress, well-hydrated, well nourished. and Obese. Skin: Skin color, texture, turgor normal, no suspicious rashes or lesions. Head: Normocephalic, no masses, lesions, tenderness or abnormalities. Eyes: Anicteric sclera. Pupils are equally round and reactive to light. Extraocular movements are intact. . Ears: External ears normal, canals clear. Nose/Sinuses: Nares normal, septum midline, mucosa normal, no drainage or sinus tenderness. Oropharynx: Lips, mucosa, and tongue normal, teeth and gums normal, oropharynx normal. Neck: Supple, no adenopathy; thyroid symmetric, normal size, no bruits. Lungs: Lungs clear to auscultation. No wheezing, rhonchi, rales. Heart: RRR without murmur, gallop, or rubs. No ectopy. Abdomen: Normal abdominal exam, Abdomen soft, non-tender. Bowel sounds normal. No masses, organomegaly. Extremities: No deformities, edema, skin discoloration,. Musculoskeletal: Spine range of motion normal. Muscular strength intact, No joint swelling, deformity, or tenderness. Peripheral Pulses: Normal. Neurologic: Gait normal. Reflexes normal and symmetric. Sensation to light touch and crainal nerves 2-12intact.. Genitalia: Normal, Penis normal. No urethral discharge. Scrotum normal to palpation. No hernia. Four skin retractable.. Rectal: Normal exam. Prostate enlarged but smooth firm capsule. Diabetic Foot Exam: Feet: Shoes and socks removed, no deformities, ulcers, calluses, normal distal pulses, sensitive to 10 gm microfilament and vibratory exam within normal limits Skin: warm and dry Vascular Pulses: Normal SEMMES-NIHARIKA MONOFILAMENT TESTING Left Foot Right Foot Dorsal Surface Intact Dorsal Surface Intact Plantar Surface Intact Plantar Surface Intact Health Maintenance List BP CONTROLLED (<130/80) due on 1963 HEPATITIS C SCREENING due on 1989 FECAL OCCULT BLOOD due on 12/29/2017 INFLUENZA(1) due on 12/29/2017 STATIN MED ADHERENCE due on 02/28/2018 DIABETES MED ADHERENCE due on 02/28/2018 DTAP,TDAP,TD(2 - Td) due on 05/22/2018 URINE ALBUMIN:CREATININE RATIO due on 08/08/2018 ANNUAL PCP TEAM CHRONIC DISEASE VISIT due on 08/14/2018 HBA1C due on 08/19/2018 DILATED RETINAL EXAM due on 12/18/2018 LDL CHOLESTEROL due on 2019 DIABETIC FOOT EXAM due on 02/22/2019 ABDOMINAL AORTIC ANEURYSM SCREENING TOPIC Completed ADULT PREVNAR-13 Completed PNEUMOVAX AGE 65 AND OVER WITH 5YR LOOKBACK Completed Data reviewed Component Latest Ref Rng AND Units 08/08/2017 09/21/2017 2018 WBC 3.70 - 11.00 k/uL 5.1 5.35 RBC 4.20 - 6.00 m/uL 4.33 4.41 Hemoglobin 13.0 - 17.0 g/dL 14.8 Hematocrit 39.0 - 51.0 % 43.8 MCV 80.0 - 100.0 fL 96.1 99.3 MCH 26.0 - 34.0 pG 33.0 33.6 MCHC 30.5 - 36.0 g/dL 34.4 33.8 RDW-CV 11.5 - 15.0 % 13.0 Platelet Count 150 - 400 k/uL 187 MPV 9.0 - 12.7 fL 9.3 10.5 Neut% % 42.8 Abs Neut (ANC) 1.45 - 7.50 k/uL 2.27 Lymph% % 40.0 Abs Lymph 1.00 - 4.00 k/uL 2.14 Republic% % 12.5 Abs Republic <0.87 k/uL 0.67 Eosin% % 3.6 Abs Eosin <0.46 k/uL 0.19 Baso% % 1.1 Abs Baso <0.11 k/uL 0.06 Nucleated Reds 0 /100 WBC 0.0 Absolute nRBC <0.01 k/uL <0.01 Diff Type Auto Diff Protein, Total 6.3 - 8.0 g/dL 8.0 Albumin 3.9 - 4.9 g/dL 4.4 Calcium 8.5 - 10.2 mg/dL 9.8 Bilirubin, Total 0.2 - 1.3 mg/dL 0.5 Alkaline Phosphatase 36 - 108 U/L 47 AST 14 - 40 U/L 21 Glucose 74 - 106 MG/DL 136 (H) 121 (A) BUN 9 - 24 mg/dL 12 Creatinine 0.6 - 1.3 MG/DL 0.99 1.01 Sodium 136 - 145 MEQ/L 142 142 Potassium 3.5 - 5.1 MEQ/L 4.5 4.2 Chloride 98 - 107 MEQ/L 103 110 (A) CO2 22 - 30 mmol/L 26 Anion Gap 13 6 ALT 10 - 54 U/L 22 eGFR- >60 eGFR-All Other Races . >60 BICARBONATE 26.0 Urea Nitrogen 6 - 20 mg/dL 15.8 GFR mL/MIN 77 GFR AFR AMER mL/MIN 93 Calcium 8.8 - 10.5 MG/DL 8.9 HGB 14 - 16.5 g/dL 14.3 HCT 39 - 55 % 41.6 RDW 140 - 440 K/uL 13.3 (A) Platelet 140 - 440 K/uL 167 Cholesterol, Total <200 mg/dL 128 110 Triglyceride <150 mg/dL 148 110 HDL Cholesterol >39 mg/dL 51 43 LDL Cholesterol <100 mg/dL 47 45 Non HDL Cholesterol <130 mg/dL 77 67 Fasting Time hrs 12 12 VLDL Cholesterol <30 mg/dL 30 (H) 22 TC:HDL Ratio <5.10 2.51 2.56 LDL:HDL Ratio <2.54 0.92 1.05 Hemoglobin A1C 4.3 - 5.6 % 6.8 (A) 7.0 (H) Estimated Average Glucose mg/dL 154 PSA 0.00 - 2.59 ng/mL 1.01 A/P ASSESSMENT/PLAN: 1. Well adult exam - ICD9: V70.0, ICD10: Z00.00 (primary diagnosis) - Completed Digital Rectal exam - Recommended regular aerobic exercise. - Follow up for annual exam in one year. - FECAL OCCULT BLOOD TEST 2. controlled type 2 diabetes mellitus without complication, without long-term current use of insulin (HCC) - ICD9: 250.02, ICD10: E11.65 Controlled. - Continue current medications - Encouraged regular aerobic exercise and weight loss - Daily Asprin therapy recommended - BP goal of <130/80 - LDL goal of <100 - Patient to work on improved diet to get A1c back below 7% 3. Diabetic eye exam (HCC) - ICD9: V72.0, 250.00, ICD10: Z01.00, E11.9 - Up to date 4. Hypertension, essential - ICD9: 401.9, ICD10: I10 - good control - Continue current medication(s) - Recommended regular aerobic exercise. - Recommend home blood pressure monitoring, to bring results in on next visit - Goal of BP <130/80 5. Mixed hyperlipidemia - ICD9: 272.2, ICD10: E78.2 - good control - Continue current medication. - Encouraged following a low fat, low cholesterol diet. - Discussed the benefits of regular aerobic exercise and weight loss. - Encouraged following a low carbohydrate, healthy oil intake diet. 6. Atherosclerosis of [place] coronary artery of [place] heart without angina pectoris - ICD9: 414.01, ICD10: I25.10 - Clinically stable no changes and cont f/u with cardio 7. KARLA (obstructive sleep apnea) - ICD9: 327.23, ICD10: G47.33 - Doing well and benefiting from CPAP. 8. Benign prostatic hyperplasia without lower urinary tract symptoms - ICD9: 600.00, ICD10: N40.0 - No clinical issues. 9. Nocturnal leg cramps - ICD9: 327.52, ICD10: G47.62 - Cont nightly norflex. 10. Need for vaccination - ICD9: V05.9, ICD10: Z23 - INFLUENZA SEASONAL HIGH DOSE AGE 65+ 11. Screening for colon cancer - ICD9: V76.51, ICD10: Z12.11 Check - FECAL OCCULT BLOOD TEST Signed Prescriptions Disp Refills orphenadrine ER (NORFLEX) 100 mg tablet 30 tablet 5 Sig: Take 1 tablet by mouth once daily. at night for leg cramps as needed BRENNEN: No F/u 6 months routine check A1c, CMP, FLP, UA, urine albumin and CBC prior. MD Adair Porter MD 02/22/2018 3:42 PM Signed Please get fasting labs and urine testing on or after 08/09/2018 prior to next visit. Referring Provider: ADAIR MERRILL [[id number]] Allergies As of Date: 02/22/2018 Noted Allergy Reaction DIOVAN (VALSARTAN) 02/09/2005 3 - Cough CRESTOR (ROSUVASTATIN CALCIUM) 11/01/2006 14 - Other: See Comments Comments: rash and sore muscles METFORMIN 08/01/2005 6 - Diarrhea ZINC 02/09/2005 5 - Intolerance Comments: chest pain Date Reviewed: 02/22/2018 Reviewed by: Adair Merrill - Fully Assessed Reason for Visit: Physical [83] Imm/Inj [58] Cmt: Flu Vaccine Reason For Visit History Recorded Primary Visit Diagnosis:Well adult exam [Z00.00] Other Visit Diagnoses:controlled type 2 diabetes mellitus without complication, without long-term current use of insulin (HCC) [E11.65] Diabetic eye exam (HCC) [Z01.00, E11.9] Hypertension, essential [I10] Mixed hyperlipidemia [E78.2] Atherosclerosis of [place] coronary artery of [place] heart without angina pectoris [I25.10] KARLA (obstructive sleep apnea) [G47.33] Benign prostatic hyperplasia without lower urinary tract symptoms [N40.0] Nocturnal leg cramps [G47.62] Need for vaccination [Z23] Screening for colon cancer [Z12.11] Order(s):INFLUENZA SEASONAL HIGH DOSE AGE 65+ [30054HIX] Order #: [id number] orphenadrine ER (NORFLEX) 100 mg tabletTake 1 tablet by mouth once daily. at night for leg cramps as neededDisp: 30 tabletRfl: 5 FECAL OCCULT BLOOD TEST [SQIFOBT] Order #: [id number] FUTURE ALBUMIN/CREAT RATIO RND UR [SQUACR] Order #: [id number] FUTURE COMP METABOLIC PANEL [SQCMP] Order #: [id number] FUTURE HGB A1C [CFSGS3I] Order #: [id number] FUTURE URINALYSIS WITH MICROSCOPIC [SQUAWMIC] Order #: [id number] FUTURE LIPID PANEL, NONFASTING [SQLIPNF] Order #: [id number] FUTURE CBC + DIFF [SQCBCDIF] Order #: [id number] FUTURE Prescriptions as of 02/22/2018 Sig: ORPHENADRINE CITRATE ER 100 M* Take 1 tablet by mouth once d* METFORMIN ER 500 MG TABLET,EX* Take 1 tablet by mouth twice * FLURBIPROFEN 100 MG TABLET TAKE ONE TABLET BY MOUTH TWIC* GLIMEPIRIDE 4 MG TABLET Take 1 tablet by mouth daily * CLOTRIMAZOLE-BETAMETHASONE 1 * Apply 1 application to affect* VITAMIN D2 ORAL Take 2,000 Units by mouth. [id number]-PKYWWWCUH-BDV C-M* Take 1 capsule by mouth twice* ATENOLOL 50 MG TABLET Take 1 tablet by mouth once d* NITROGLYCERIN 0.4 MG SUBLINGU* Dissolve 1 tablet under the t* LOSARTAN 50 MG-HYDROCHLOROTHI* Take 1 tablet by mouth once d* SIMVASTATIN 80 MG TABLET Take 1 tablet by mouth daily * CINNAMON BARK 500 MG CAPSULE Take 500 mg by mouth. [id number]-[id number] * Take 1 tablet by mouth once d* * ASPIRIN 81 MG TABLET 2 tablets daily Problem List As Of Date 02/22/2018 Noted Resolved Generalized osteoarthrosis, unspecified site [M*INVALID FOR* Priority: M Mixed hyperlipidemia [E78.2] INVALID FOR* Priority: A Coronary atherosclerosis [I25.10] INVALID FOR* Priority: A More... History of coronary artery stent placement [Z95*INVALID FOR* Priority: A More... KARLA (obstructive sleep apnea) [G47.33] INVALID FOR* Priority: B More... Ex-smoker [Z87.891] INVALID FOR* Priority: B More... Well adult exam [Z00.00] INVALID FOR* Priority: E More... Phimosis [N47.1] INVALID FOR* Priority: C Benign prostatic hyperplasia without lower urin*INVALID FOR* Priority: C Prostate disorder [N42.9] INVALID FOR* Hypertension, essential [I10] INVALID FOR* Priority: A Screening for colon cancer [Z12.11] INVALID FOR* Microscopic hematuria [R31.29] INVALID FOR* Diabetic eye exam (HCC) [Z01.00, E11.9] INVALID FOR* Priority: A More... controlled type 2 diabetes mellitus without com*INVALID FOR* Priority: A Nocturnal leg cramps [G47.62] INVALID FOR* Priority: M Other instructions from your clinician: Please get fasting labs and urine testing on or after 08/09/2018 prior to next visit. Prescriptions ordered this encounter Disp Refills Start End ORPHENADRINE CITRATE ER 100 MG TABLE* 30 t* 5 02/22/2018 Route: ORAL Sig: Take 1 tablet by mouth once daily. at night for leg cramps as needed Medications Discontinued During This Encounter orphenadrine ER (NORFLEX) 100 mg tab* 30 t* 3 08/22/2016 02/22/2018 Route: ORAL Sig: Take 1 tablet by mouth once daily. at night for leg cramps as needed Disc: Reason for discontinue is not on file. Disposition: Return in about 6 months (around 08/23/2018) for daija. Follow-up and Disposition History Recorded Encounter Status:Closed by ADAIR MERRILL on 02/22/18 PROGRESS Observed: 02/22/2018 Status: COMPLETED Source: [place] 2:56 PM [facility] RE[facility]IT[facility] O ID: [id number] Author: Katelyn Taylor [facility] Service: (none) Author Type: (none) Type: Progress Notes Filed: 02/22/2018 4:38 PM Note Text: 73 year old male here for INACTIVATED INFLUENZA VACCINE. 6156-8818 Season Patient is identified by name and date of : Yes [] CONTRAINDICATIONS color enhanced section Age less than 6 months? No Allergy to eggs, chicken, chicken feathers, or chicken dander? No Allergy to thimerosal (a preservative) or formaldehyde, gelatin? No History of severe reaction to any vaccine component or a previous dose of influenza vaccination? No History of Guillain-[place] Syndrome within 6 weeks after a previous influenza vaccine? No Patient is not moderately or severely ill? No Current temperature greater or equal to 100.4F? No History of Bone Marrow Transplant prior 6 months or solid organ transplant in the past 3 months ? No History of fainting after a prior injection or medical procedure? No- ? If patient has fainted in the past, the CDC recommends sitting or lying down for 15 minutes after the vaccination. [] VERIFICATION color enhanced section Was the answer Yes for any of the above contraindications? No contraindications present. Acceptable to proceed with vaccine. Patient/guardian agrees the above answers are true to the best of their knowledge? Yes Flu vaccine information sheet given? Yes See immunization activity in [facility] for details of immunizations adminstered today. Patient age: [age] year old For The 3947-0318 Flu Season 6-35 months old: Fluzone 0.25 ml - IM (Preservative Free) 3 years of age: Fluzone 0.5 ml - IM (Preservative Free) 3 years and older: Fluzone 0.5 ml- IM-(with Preservatives) 65+ years old: 2-49 years old Fluzone High-Dose 0.5 ml - IM (Preservative Free) FLUMIST- intranasal REMEMBER: If patient is less than 9 years of age and this is the first vaccine of Influenza to be received in any flu season, they should receive a second dose in one months time. LIPID PANEL, BASIC Collected: 2018 Status: F Source: CALLERY 9:32 AM [facility] REPOSITORY TYPE CODE TESTS RESULT OUT OF REFERENCE UNITS RANGE LAB CHOL <200 mg/dL Cholesterol 110 Result Comment: <200 mg/dL, Desirable 200-239 mg/dL, Borderline high >239 mg/dL, High LAB TRIGLY <150 mg/dL Triglyceride 110 Result Comment: <150 mg/dL, Normal 150-199 mg/dL, Borderline high 200-499 mg/dL, High >499 mg/dL, Very high LAB HDL >39 mg/dL HDL-Cholesterol 43 Result Comment: 40-59 mg/dL, Acceptable >59 mg/dL, High: Negative risk factor for coronary heart disease <40 mg/dL, Low: Positive risk factor for coronary heart disease LAB LDL <100 mg/dL LDL-Cholesterol 45 Result Comment: <100 mg/dL, Optimal 100-129 mg/dL, Near optimal/above optimal 130-159 mg/dL, Borderline high 160-189 mg/dL, High >189 mg/dL, Very high Secondary prevention optimal LDL Cholesterol levels are recommended to be < 70 mg/dL LAB NONHDL <130 mg/dL Non HDL Cholesterol 67 Result Comment: <130 mg/dL, Optimal 130-159 mg/dL, Near optimal/above optimal 160-189 mg/dL, Borderline high 190-219 mg/dL, High >219 mg/dL, Very high Secondary prevention optimal non HDL Cholesterol levels are recommended to be < 100 mg/dL LAB FT hrs Fasting Time 12 LAB VLDL <30 mg/dL VLDL Cholesterol 22 LAB TCHDL <5.10 TC:HDL Ratio 2.56 LAB LDLHDL <2.54 LDL:HDL Ratio 1.05 Result Comment: Reference: 1. National Cholesterol Education Program ATP III Guideline At-A-Glance Quick Desk Reference: National Heart, Lung, and Blood [place]. National Institutes of Health. 2001: NIH Publication No. 01-3305. 2. An International Atherosclerosis Society position paper: global recommendations for the management of dyslipidemia: executive summary, Atherosclerosis. 2014: 232(2):410-413. Performed By: #### LIPB, CBCDIF, PSA, HBA1C #### [facility] [address] [address] CBC AND DIFFERENTIAL Collected: 2018 Status: F Source: CALLERY 9:32 AM [facility] REPOSITORY TYPE CODE TESTS RESULT OUT OF REFERENCE UNITS RANGE LAB WBC 3.70-11.00 k/uL WBC 5.35 LAB RBC 4.20-6.00 m/uL RBC 4.41 LAB HGB 13.0-17.0 g/dL Hemoglobin 14.8 LAB HCT 39.0-51.0 % Hematocrit 43.8 LAB MCV 80.0-100.0 fL MCV 99.3 LAB MCH 26.0-34.0 pG MCH 33.6 LAB MCHC 30.5-36.0 g/dL MCHC 33.8 LAB RDWCV 11.5-15.0 % RDW-CV 13.0 LAB PLTCT 150-400 k/uL Platelet Count 187 LAB MPV 9.0-12.7 fL MPV 10.5 LAB ANEUT % Neut% 42.8 LAB AANEUT 1.45-7.50 k/uL Abs Neut 2.27 LAB ALYMP % Lymph% 40.0 LAB AALYMP 1.00-4.00 k/uL Abs Lymph 2.14 LAB AMONO % Republic% 12.5 LAB AAMONO <0.87 k/uL Abs Republic 0.67 LAB AEOS % Eosin% 3.6 LAB AAEOS <0.46 k/uL Abs Eosin 0.19 LAB ABASO % Baso% 1.1 LAB AABASO <0.11 k/uL Abs Baso 0.06 LAB AUNRBC 0 /100 WBC NRBCs 0.0 LAB ABNRBC <0.01 k/uL Absolute nRBC <0.01 LAB DTYP DTYPE Auto Diff Performed By: #### LIPB, CBCDIF, PSA, HBA1C #### [facility] [address] [id number] PSA, DIAGNOSTIC Collected: 2018 Status: F Source: CALLERY 9:32 AM [facility] REPOSITORY TYPE CODE TESTS RESULT OUT OF REFERENCE UNITS RANGE LAB PSA 0.00-2.59 ng/mL PSA, Diagnostic 1.01 Result Comment: Total PSA test methodology used is the Electrochemiluminescence Immunoassay. Performed By: #### LIPB, CBCDIF, PSA, HBA1C #### [facility] [address] [address] HEMOGLOBIN A1C Collected: 2018 Status: F Source: CALLERY 9:32 AM [facility] REPOSITORY TYPE CODE TESTS RESULT OUT OF REFERENCE UNITS RANGE LAB HGBA1C 4.3-5.6 % High Hemoglobin A1c 7.0 LAB HBA0 mg/dL Est. Average Glucose 154 Result Comment: eAG: (Estimated average glucose) is a calculated value from HgbA1c and is data entry representative of the average blood glucose level in the last 2-3 month period. Performed By: #### LIPB, CBCDIF, PSA, HBA1C #### [facility] [address] [place], [place] [address] STRESS TEST ECHO W/O Observed: 09/27/2017 Status: F Source: CASCADE CONTRAST 5:21 PM [facility] REPOSITORY [facility] Cardiovascular Services [address] [place] [address] Stress Test Echo w/o Contrast MR#: [id number] Acct: [id number] Name: ESTELLA GALVAN Rep #: [id number] : 1945 72 From: Terry Barba MD Primary Care: Adair Merrill MD Status: REG CLI Ordering Dr: Terry Barba MD Sex: M C Reason For Study: CAD/ASHD, PREOP Stress Results Protocol: Stress Echocardiogram Maximum Predicted HR: 148 bpm Target HR: 126 bpm% Maximum Pr edicted HR: 88 % DurationHeart Rate Stage (mm:ss) (bpm) BP BASELINE 68 130/70 FRANCISCO J PROTOCOL- STAGE 1 3:00 10 0 132/76 FRANCISCO J PROTOCOL- STAGE 2 3:00 12 1 148/78 FRANCISCO J PROTOCOL- STAGE 3 0:30 13 0 / RECOVERY 90 122/62 Stress Duration: 6:30 mm:ss Maximum Stress HR: 130 bpm Baseline Echocardiogram Findings The estimated ejection fraction is 65 %. Stress Echo Wall motion Data Resting WMIntermediate WMStress WM Resting Wall Motion Wall Motion Stress No regional wall motion No regional wall motion abnormalities noted. abnormalities noted. EKG Data Normal intervals are noted. The patient exercised according to the regular Francisco J protocol for a total duration of 6:30. The maximum heart rate attained was 129 beats per minute. This was 87% of maximum predicted heart rate. The patient exercised into stage 3 of the Francisco J protocol. During stress, there were no ST or T wave changes noted to suggest ischemia. No clinical angina was noted. Interpretation Summary The estimated ejection fraction is 65 %. Normal, adequate, treadmill echocardiogram. Negative for ischemia by EKG and echocardiographic criteria. No anginal symptoms noted. Rare PVCs noted. Appropriate blood pressure response to exercise. Average exercise capacity for age. Final LVEF of 75%. No complications. Ordering Physician: Terry Barba Referring Physician: Terry Barba Performed By: Olinda Rice RDCS 09/27/17 1721 Date Terry Barba MD CC: Terry Barba MD; Adair Merrill MD Date Dictated: 09/27/17 1301 Date Transcribed: 09/27/171720 Avionics Electrical Engineer: Signed 12 LEAD ELECTROCARDIOGRAM Observed: 09/25/2017 Status: F Source: CASCADE 2:58 PM [facility] REPOSITORY [facility] Cardiovascular Services [address] [place] [id number] 12 Lead EKG 09/21/17913 MR#: [id number] Acct: [id number] Name: ESTELLA GALVAN Rep #: [id number] : 1945 72 From: Evan Lakhani MD Attending Dr: Daljit Griffin MD Status: REG CLI Ordering Dr: Daljit Griffin MD Date: 09/21/17 Location: LAB Sex: M C Admitted: Test Reason : PRE OP Blood Pressure : / mmHG Vent. Rate : 066 BPM Atrial Rate : 066 BPM P-R Int : 248 ms QRS Dur : 094 ms QT Int : 386 ms P-R-T Axes : 063 005 030 degrees QTc Int : 404 ms Sinus rhythm with 1st degree A-V block Otherwise normal ECG Confirmed by LESVIA BAIN, EVAN ([id number]), news editor LUZ SO ([id number]) on 09/25/2017 2:58:08 PM Referred By: KYLIE Confirmed By:EVAN LAKHANI MD 09/25/17 1458 Date Evan Lakhani MD CC: Daljit Griffin MD; Adair Merrill MD Signed CBC-COMPLETE BLOOD CNT Collected: 09/21/2017 Status: F Source: PETEY NO DIFF 8:58 AM [facility] REPOSITORY TYPE CODE TESTS RESULT OUT OF RANGE REFERENCE UNITS LAB L100.1000 4.4-11.0 K/mm3 Normal WBC 5.1 LAB L100.1200 4.6-6.2 M/mm3 Low RBC 4.33 LAB L100.1300 13.0-16.5 g/dl Normal HGB 14.3 LAB L100.1400 40-54 % Normal HCT 41.6 LAB L100.1500 80-94 fL High MCV 96.1 LAB L100.1600 27.0-32.0 pg High MCH 33.0 LAB L100.1700 32-36 g/gl Normal MCHC 34.4 LAB L100.1810 11.6-14.6 % Normal RDW CV 13.3 LAB L100.1820 35.1-43.9 fl High RDW SD 46.7 LAB L100.1900 150-450 K/mm3 Normal PLT 167 LAB L100.2000 6.2-12.0 fl Normal MPV 9.3 Performed By: #### L100.0500 #### [facility] [place], [address] BASIC METABOLIC Collected: 09/21/2017 Status: F Source: PETEY PROFILE (BMP) 8:58 AM [facility] REPOSITORY TYPE CODE TESTS RESULT OUT OF RANGE REFERENCE UNITS LAB L501.0100 74-106 mg/dL High GLU 121 Result Comment: Fasting Glucose result from 100 to 125 mg/dL suggests IMPAIRED HOMEOSTASIS per A.D.A. criteria. Please note revised GLUCOSE reference range effective 2017. LAB L501.1000 7-18 mg/dL Normal BUN 16 LAB L501.1100 0.70-1.30 mg/dL Normal CREAT,SERUM 1.01 Result Comment: The validity of the calculated GFR AND GFRAA in patients over 70 years has not been determined. Clinical correlation is essential. LAB L501.1110 >60 mL/min Normal EST GFR 77 Result Comment: Non- GFR Calc LAB L501.1115 >60 mL/min Normal EST GFR - AA 93 Result Comment: GFR Calc LAB L501.1300 10-20 RATIO Normal BUN/CRE 15.8 LAB L501.2200 8.5-10.1 mg/dL CA Normal 8.9 LAB L501.5300 136-145 mmol/L NA Normal 142 LAB L501.5600 3.5-5.1 mmol/L K Normal 4.2 LAB L501.5900 98-107 mmol/L High CL 110 LAB L501.6100 21.0-32.0 mmol/L Normal CO2 26.0 LAB L501.6200 5-15 Normal GAP 6 Performed By: #### L500.2500 #### [facility] [address] [place], [address] HEMOGLOBIN A1C Collected: 09/21/2017 Status: F Source: CASCADE 8:58 AM [facility] REPOSITORY TYPE CODE TESTS RESULT OUT OF RANGE REFERENCE UNITS LAB L501.9985 4.2-6.3 % High HGB A1C 6.8 Performed By: #### L501.9985 #### [facility] [address] [place], [address] CARDIOLOGY VISIT Observed: 08/20/2017 Status: F Source: CASC[place] REPORT 11:51 AM [facility] REPOSITORY [facility] [address] [place] [address] OFFICE VISIT Date of Service: 08/20/17 MR#: [id number] Acct: [id number] Name: ESTELLA GALVAN Rep #: [id number] : 1945 Provider: Terry Barba MD Age/Sex: 72/M Location: [facility] Status: Signed HPI HPI Chief Complaint: Routine f/u Details: Referring physician: Dr. Luis Bear It was a pleasure seeing your patient, Estella Galvan, today in our office. He is returning for followup of his coronary artery disease. As you know he is a very pleasant 72-year-old nondiabetic gentleman with a history of hypertension, hypercholesterolemia, coronary artery disease status post acute inferior wall myocardial infarction with bare metal stenting placed at [facility] to the mid right coronary artery . Since that time he has been doing relatively well. Since his last visit Mr. Galvan has had no chest, neck, jaw, arm discomfort to suggest angina,, pedal edema, palpitations, near syncope, or syncope. He underwent a previous stress echocardiogram on 05/24/11 which was negative for inducible ischemia, and he has an EF of 55%. He then had a repeat stress echocardiogram done in January 2013 which was also negative for inducible ischemia. 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 As part of his cardiac workup, he also underwent a repeat stress echo on 02/13/15 which was negative for inducible ischemia.patient continues to exercise by mowing his grass with an old-fashioned lawnmower without any difficulty. He has no anginal symptoms. Since our last visit he has been doing extraordinarily well. He denies any exertional chest pain, angina, shortness of breath or dyspnea on exertion he is taking and tolerating his medicines well. No additional lower extremity edema, presyncope or syncope. No appreciable change in his activity level since our last visit. Since her last visit he has been diagnosed with diabetes and started on Metformin and glimepiride. 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 Hernandez. This is not yet been confirmed. In our office today his blood pressure is 120/60, pulse is 64 and regular. His physical exam is as below. His lipids as of 01/25/15 showed HDL of 45 and LDL 41. lipids as of 07/19/15 showing HDL 47 and LDL of 57. His lipids as of 07/08/16 showed LDL 37 and HDL 44. His lipids as of 01/20/17 shown LDL of 37 and an HDL of 45. Intake Vital Signs08/20/17 Height 5 ft 6 in 08/20/17 Weight: 210 lb 08/20/17 Body Mass Index (BMI) 33.9 08/20/17 Blood Pressure 120/60 Intake Visit Reasons: 6 M FU Accompanied by: Is patient in pain?: No Allergies rosuvastatin [From Crestor] Allergy (Intermediate, Verified 08/20/17 11:38) Rash Medications antiarthritic combination no.2 900 mg tablet See Label Instructions PO .q day tab 08/18/17 [History Confirmed 08/20/17] aspirin 81 mg tablet,delayed release 81 mg PO QDAY 08/18/17 [History Confirmed 08/20/17] atenolol 50 mg tablet 50 mg PO QDAY 08/18/17 [History Confirmed 08/20/17] cholecalciferol (vitamin D3) 2,000 unit tablet 2,000 unit PO QDAY 08/18/17 [History Confirmed 08/20/17] flurbiprofen 100 mg tablet 100 mg PO BID 08/18/17 [History Confirmed 08/20/17] glimepiride 4 mg tablet 4 mg PO QAM 08/18/17 [History Confirmed 08/20/17] losartan 50 mg-hydrochlorothiazide 12.5 mg tablet 1 tab PO QDAY 08/18/17 [History Confirmed 08/20/17] metformin 500 mg tablet 500 mg PO BID 08/18/17 [History Confirmed 08/20/17] multivitamin tablet 1 tab PO QDAY 08/18/17 [History Confirmed 08/20/17] nitroglycerin 0.4 mg sublingual tablet 0.4 mg SUBLINGUAL Q5- 15M PRN 08/18/17 [History Confirmed 08/20/17] orphenadrine citrate ER 100 mg tablet,extended release 100 mg PO .q day tab 08/18/17 [History Confirmed 08/20/17] simvastatin 80 mg tablet 80 mg PO QPM #90 tab 08/20/17 [Rx Confirmed 08/20/17] Ejection fraction %: 55 to 59 PFSH Medical History Hyperlipidemia (Chronic) Hypertension (Chronic) Nonrheumatic mitral (valve) prolapse (Chronic) History of anterior wall myocardial infarction (Chronic) Atherosclerotic heart disease of [place] coronary artery without angina pectoris (Chronic) Diabetes mellitus type II, controlled (Chronic) Surgical History Stented coronary artery (Chronic) Family History Father , age 81 CAD (coronary artery disease) History of angioplasty, stent, CABG and valvular heart disease Mother , age 42 Heart disease Brother No problems noted. Sister , age 57 of renal cancer Renal cancer Social History Smoking Status: Former smoker ROS Const Const: Negative for fatigue, weakness, body ache, fever(s), headache(s), chills, frequent falls, night sweats, daytime sleepiness, difficulty sleeping, excessive sweating, weight gain, weight loss, increased appetite, poor appetite, anorexia or other Eyes Eyes: Negative for blind spots, loss of peripheral vision, transient loss of vision, blurry vision, change in vision, double vision, floaters, tunnel vision or other ENT ENT: Negative for headache(s), dizziness, hearing loss, tinnitus, Nosebleed/epistaxis, balance problems, post nasal drip, lip swelling, tongue swelling, bleeding gums, hoarseness, neck pain, dry mouth or other Cardio Chest Pain: No Palpitations: No Edema: Bilateral (mild lower leg, left > right) Muscle aches with walking: None Resp Respiratory: Negative for SOB with activity, SOB at rest, SOB orthopnea\SOB lying down, Coughing up blood/hemoptysis, chest congestion, pain on inspiration, snoring, stridor, wheezing, crackles, paroxysmal nocturnal dyspnea or other GI GI: Negative nausea, vomiting, heartburn, constipation, belching, bloating, cramping, vomiting blood/hematemesis, bright, red blood in stools, black,tarry stools, loose stools, Difficulty Swallowing or other : Negative for hematuria, frequent nighttime urination/ nocturia, erectile dysfunction or abnormal vaginal bleeding Musc Musc: Negative for balance problems, muscle aches/ myalgia, muscle weakness or joint pain Skin Skin: Negative redness, non-healing lesions, rash, unusual bruising, skin ulcer, wounds, jaundice or other Neuro Neuro: Negative for weakness, headache(s), frequent falls, blurry vision, double vision, dizziness, lightheadedness, near syncope, syncope, orthostatic symptoms, confusion, memory loss, restless legs, vertigo, seizures, lack of coordination or other Jesus Hematologic/Lymphatic: Negative for easy bleeding, easy bruising, enlarged lymph nodes or other Endo Endo: Negative for fatigue, excessive sweating, cold intolerance, heat intolerance, flushing, increased thirst/drinking, increased hunger, hair loss, hair growth or other Psych Psych: Negative for anxiety, depression, thoughts of harming anyone, thoughts of harming yourself, visual hallucinations, panic attacks or audible hallucinations Allergy Allergy/Immunology: Negative for lip swelling, Negative for tongue swelling, Negative for rash, Negative for throat swelling, Negative for hives Cardiology Exam Const Appearance: cooperative, healthy appearing and no acute distress Nutritional Appearance: well nourished Orientation: alert, oriented x3 and oriented to person Head Head: normal to inspection, atraumatic and normocephalic Nose: external nose normal Face and Sinus: face symmetric Mouth: oral mucosae normal Eyes General: appearance normal, both eyes and all related structures Eyelids: eyelids normal Conjunctivae: conjunctivae normal Pupils: PERRL and normal by confrontation EOM: EOM intact bilaterally Neck Neck: normal visual inspection and full ROM Carotids: normal carotid upstroke Chest Chest inspection: normal inspection of the chest Auscultation: Bilateral: Clear to Auscultation Cardio Palpation: normal PMI Rate: regular rate Rhythm: regular rhythm Heart sounds: S1 normal and S2 normal GI GI: normal to inspection, no hepatosplenomegaly and bowel sounds present Neuro General: alert, oriented x3, awake, CN's II-XI intact bilaterally and moves all extremities Skin Skin: no rashes or lesions noted Extremities Pulses: Normal: Right Femoral Pulse, Left Femoral Pulse, Right Dorsalis Pedis Pulse, Left Dorsalis Pedis Pulse, Right Posterior Tibial Pulse, Left Posterior Tibial Pulse, Right Radial Pulse, Left Radial Pulse Lower Extremity Edema: None: Bilateral Psych Psychological: normal affect Assessment AND Plan 1. Atherosclerotic heart disease of [place] coronary artery without angina pectoris I25.10 anterior MS,08/01/1997 PTCA and BMS to mid RCA per Dr. Tobar @ [facility] Plan 1. Coronary artery disease: No exertional anginal symptoms at this time. Patient is awaiting confirmation of surgery on his neck perhaps in August 2017. If and when it is been determined the patient requires neck surgery for a bulging disc, I would recommended he undergo a treadmill echocardiogram to evaluate for possible ischemia given his history of coronary disease. If his stress test is negative he will be deemed at low risk for noncardiac surgery. If his stress test is abnormal for ischemia he may require repeat catheterization prior to his next surgery. In the meantime I recommend he continue baby aspirin, atenolol, losartan/hydrochlorothiazide. 2. Hyperlipidemia E78.5 Plan 2. Hyperlipidemia: His LDL and HDL cholesterol are at goal. Continue Zocor and vitamin D. 3. Return office in 6 months. This note was generated using a voice recognition system and there may be incorrect words, spelling or punctuation that were not noted when reviewing the office note prior to saving. Plan Detail Other Medications New: Discontinued: cyanocobalamin (vit B-12) (Vitamin B-12) Discontinued [id number] mcg PO QDAY Valerie Agosto : Pt no longer taking Follow Up +6M ([place]) Coding Level of Care Code Off vis,est,level 3 Diagnoses Atherosclerotic heart disease of [place] coronary artery without angina pectoris I25.10 Hyperlipidemia E78.5 Coding Level of Care Code Off vis,est,level 3 Diagnoses Atherosclerotic heart disease of [place] coronary artery without angina pectoris I25.10 Hyperlipidemia E78.5 08/20/17 1151 <Electronically signed by Terry Barba MD> Date Terry Barba MD Cosigner Signature: Date (if applicable) CC: Adair Merrill MD PROGRESS Observed: 08/14/2017 Status: COMPLETED Source: CALLERY 9:51 AM [facility] [place] REPOSITORY HNO ID: [id number] Author: Adair Merrill Service: (none) Author Type: Physician Type: Progress Notes Filed: 08/14/2017 7:52 PM Note Text: Chief Complaint Patient presents with: Recheck: 4 months HPI Estella Galvan is a 72 year old male who presents here today for Chronic Medical Conditions.. Patient with Hx as reviewed and documented below. Has been doing well. Using CPAP nightly and feels good and sleeps better with than without. Past medical history, appointments, medications, allergies reviewed. Previous Medical History PAST MEDICAL HISTORY Diagnosis Date - Coronary atherosclerosis 05/02/2007 - Generalized osteoarthrosis, unspecified site 06/16/2005 - History of coronary artery stent placement 12/19/2012 - Mixed hyperlipidemia 11/07/2005 - KARLA (obstructive sleep apnea) 12/19/2012 - Type II or unspecified type diabetes mellitus without mention of complication, not stated as uncontrolled 12/23/2014 Previous Surgical History PAST SURGICAL HISTORY Procedure Laterality Date - FECAL OCCULT BLOOD TEST 12/29/2016 negative - TOTAL KNEE REPLACEMENT Right - TOTAL KNEE REPLACEMENT Left Family History FAMILY HISTORY Problem Relation Age of Onset - Coronary Artery Disease Father after CABG at 81 - Cancer Sister renal - Kidney Disease Brother - Funk's Dz [OTHER] Brother - Coronary Artery Disease Paternal Uncle 70's Patient Allergies ALLERGIES Allergen Reactions - Zinc Intolerance chest pain - Diovan [Valsartan] Cough - Crestor [Rosuvastat* rash and sore muscles - Metformin Diarrhea Current Medications Current Outpatient Prescriptions on File Prior to Visit: metFORMIN ER (GLUCOPHAGE XR) 500 mg 24 hr tablet Take 1 tablet by mouth twice daily. glimepiride (AMARYL) 4 mg tablet Take 1 tablet by mouth daily with breakfast. Flurbiprofen 100 mg tablet TAKE ONE TABLET BY MOUTH TWICE DAILY FOR ARTHRITIS clotrimazole-betamethasone (LOTRISONE) cream Apply 1 application to affected area twice daily. ERGOCALCIFEROL, VITAMIN D2, (VITAMIN D2 ORAL) Take 2,000 Units by mouth. Mzcknalbpwi-Victufuhx-Sdu C-Mn (GLUCOSAMINE CHONDROITIN MAXSTR) 500-400 mg cap Take 1 capsule by mouth twice daily. atenolol (TENORMIN) 50 mg tablet Take 1 tablet by mouth once daily. orphenadrine ER (NORFLEX) 100 mg tablet Take 1 tablet by mouth once daily. at night for leg cramps as needed nitroglycerin sublingual (NITROQUICK) 0.4 mg SL tablet Dissolve 1 tablet under the tongue as directed. EVERY 5 MIN X3 losartan-hydrochlorothiazide (HYZAAR) 50-12.5 mg per tablet Take 1 tablet by mouth once daily. simvastatin (ZOCOR) 80 mg tablet Take 1 tablet by mouth daily at bedtime. Per Dr. Barba Cinnamon Bark (CINNAMON) 500 mg cap Take 500 mg by mouth. Xhunacudgdtba-Qvnvhlny-Bvlpny (CENTRUM SILVER) Tab Take 1 tablet by mouth once daily. Aspirin 81 mg ORAL Tab 2 tablets daily No current facility-administered medications on file prior to visit. Social History Social History Marital status: Spouse name: Years of education: Number of children: Social History Main Topics Smoking status: Former Smoker Packs/day: 0.00 Years: 0.00 Quit date: 07/29/1997 Smokeless status: Former User Alcohol use: No Drug use: No Sexual activity: Not Currently Review of Symptoms REVIEW OF SYSTEMS GENERAL: No weight loss, malaise or fevers NECK: Negative for lumps, goiter, pain and significant neck swelling RESPIRATORY: Negative for cough, hemoptysis, wheezing, COPD, dyspnea or shortness of breath CARDIOVASCULAR: Negative for chest pain, leg swelling, hypertension, CHF or palpitations GI: No nausea, vomiting, or diarrhea and No heartburn or reflux symptoms : No history of dysuria or blood ENDOCRINE: FBS: 97-180. (last average on machine was around 180) NEURO: No history of headaches, syncope, paralysis, seizures or tremors EXAM: BP 132/66 (BP Site: Left Arm, BP Position: Sitting, BP Cuff Size: Large Adult) Pulse 74 Resp 20 Ht 167.6 cm (5' 6) Wt 94.8 kg (209 lb) BMI 33.73 kg/m2 General Appearance: Well appearing, alert, in no acute distress, well-hydrated, well nourished., Obese. Eyes: Anicteric sclera. Pupils are equally round and reactive to light. Extraocular movements are intact. . Oropharynx: Lips, mucosa, and tongue normal, teeth and gums normal, oropharynx normal. Neck: Supple, no adenopathy; thyroid symmetric, normal size, no bruits. Lungs: Lungs clear to auscultation. No wheezing, rhonchi, rales. Heart: RRR without murmur, gallop, or rubs. No ectopy. Abdomen: Normal abdominal exam, Abdomen soft, non-tender. Bowel sounds normal. No masses, organomegaly. Extremities: No deformities, edema . Musculoskeletal: Muscular strength intact, No joint swelling, deformity, or tenderness. Peripheral Pulses: Normal. Neurologic: Gait normal. Reflexes normal and symmetric. Sensation to light touch and crainal nerves 2-12 intact.. Health Maintenance List HEPATITIS C SCREENING due on 1989 FECAL OCCULT BLOOD due on 12/29/2017 DILATED RETINAL EXAM due on 01/11/2018 HBA1C due on 02/07/2018 DIABETIC FOOT EXAM due on 04/12/2018 TETANUS due on 05/22/2018 URINE ALBUMIN CREATININE RATIO due on 08/08/2018 LDL due on 08/08/2018 PROSTATE CANCER SCREENING DISCUSSION Completed ABDOMINAL AORTIC ANEURYSM SCREENING TOPIC Completed ADULT PREVNAR-13 Completed INFLUENZA Completed PNEUMOVAX AGE 65 AND OVER WITH 5YR LOOKBACK Completed Data reviewed Component Latest Ref Rng AND Units 01/20/2017 04/12/2017 08/08/2017 Protein, Total 6.3 - 8.0 g/dL 7.2 8.0 Albumin 3.9 - 4.9 g/dL 4.1 4.4 Calcium 8.5 - 10.2 mg/dL 9.0 9.8 Bilirubin, Total 0.2 - 1.3 mg/dL 0.5 0.5 Alkaline Phosphatase 36 - 108 U/L 44 47 AST 14 - 40 U/L 19 21 Glucose 74 - 99 mg/dL 118 (H) 136 (H) BUN 9 - 24 mg/dL 13 12 Creatinine 0.73 - 1.22 mg/dL 1.00 0.99 Sodium 136 - 144 mmol/L 141 142 Potassium 3.7 - 5.1 mmol/L 4.2 4.5 Chloride 97 - 105 mmol/L 103 103 CO2 22 - 30 mmol/L 27 26 Anion Gap 9 - 18 mmol/L 11 13 ALT 10 - 54 U/L 21 22 eGFR- >60 >60 eGFR-All Other Races . >60 >60 Cholesterol, Total <200 mg/dL 101 128 Triglyceride <150 mg/dL 94 148 HDL Cholesterol >39 mg/dL 51 LDL Cholesterol <100 mg/dL 47 Non HDL Cholesterol <130 mg/dL 77 Fasting Time hrs 12 VLDL Cholesterol <30 mg/dL 30 (H) TC:HDL Ratio <5.10 2.51 LDL:HDL Ratio <2.54 0.92 HDL CHOLESTEROL 40 45 LDL Cholesterol 70 37 Creatinine, Ur Random (UCRR) 20 - 300 mg/dL 64.2 Albumin, Urine Random 0.0 - 23.0 mg/L <12.0 Albumin/Creat Ratio 0 - 30 mg/g Not calculated Hemoglobin A1C 4.3 - 5.6 % 6.6 (H) 6.5 (H) Estimated Average Glucose mg/dL 143 140 A/P ASSESSMENT/PLAN: 1. controlled type 2 diabetes mellitus without complication, without long-term current use of insulin (HCC) - ICD9: 250.02, ICD10: E11.65 (primary diagnosis) Controlled. - Continue current medications - Daily Asprin therapy recommended - BP goal of <130/80 - LDL goal of <100 2. Hypertension, essential - ICD9: 401.9, ICD10: I10 - good control - Continue current medication(s) - Recommended regular aerobic exercise. - Recommend home blood pressure monitoring, to bring results in on next visit - Goal of BP <130/80 3. Mixed hyperlipidemia - ICD9: 272.2, ICD10: E78.2 - good control - Continue current medication. - Encouraged following a low fat, low cholesterol diet. - Discussed the benefits of regular aerobic exercise and weight loss. - Encouraged following a low carbohydrate, healthy oil intake diet. - Copy of labs given to take to his cardio appt. 4. Atherosclerosis of [place] coronary artery of [place] heart without angina pectoris - ICD9: 414.01, ICD10: I25.10 - Clinically stable cont current Tx and cardio f/u 5. KARLA (obstructive sleep apnea) - ICD9: 327.23, ICD10: G47.33 - Doing well and benefiting from nightly CPAP use. Signed Prescriptions Disp Refills Flurbiprofen 100 mg tablet 60 tablet 5 Sig: TAKE ONE TABLET BY MOUTH TWICE DAILY FOR ARTHRITIS BRNENEN: No F/u 6 months WAE, Check A1c, FLP ands PSA prior Adair Merrill MD CNOV Observed: 08/14/2017 Status: COMPLETED Source: [place] 9:20 AM [facility] REPOSITORY Office Visit (FAMPWS) ESTELLA GALVAN ([id number]) 1945 M Date Time Provider Department 08/14/17 9:20 AM ADAIR MERRILLPWS During your visit today, we recorded the following information about you: Pulse Respiration Blood pressure Weight 74/minute 20/minute 132/66 94.8 kg Height 1.676 m Adair Merrill MD 08/14/2017 7:52 PM Signed Chief Complaint Patient presents with: Recheck: 4 months HPI Estella Galvan is a 72 year old male who presents here today for Chronic Medical Conditions.. Patient with Hx as reviewed and documented below. Has been doing well. Using CPAP nightly and feels good and sleeps better with than without. Past medical history, appointments, medications, allergies reviewed. Previous Medical History PAST MEDICAL HISTORY Diagnosis Date - Coronary atherosclerosis 05/02/2007 - Generalized osteoarthrosis, unspecified site 06/16/2005 - History of coronary artery stent placement 12/19/2012 - Mixed hyperlipidemia 11/07/2005 - KARLA (obstructive sleep apnea) 12/19/2012 - Type II or unspecified type diabetes mellitus without mention of complication, not stated as uncontrolled 12/23/2014 Previous Surgical History PAST SURGICAL HISTORY Procedure Laterality Date - FECAL OCCULT BLOOD TEST 12/29/2016 negative - TOTAL KNEE REPLACEMENT Right - TOTAL KNEE REPLACEMENT Left Family History FAMILY HISTORY Problem Relation Age of Onset - Coronary Artery Disease Father after CABG at 81 - Cancer Sister renal - Kidney Disease Brother - Funk's Dz [OTHER] Brother - Coronary Artery Disease Paternal Uncle 70's Patient Allergies ALLERGIES Allergen Reactions - Zinc Intolerance chest pain - Diovan [Valsartan] Cough - Crestor [Rosuvastat* rash and sore muscles - Metformin Diarrhea Current Medications Current Outpatient Prescriptions on File Prior to Visit: metFORMIN ER (GLUCOPHAGE XR) 500 mg 24 hr tablet Take 1 tablet by mouth twice daily. glimepiride (AMARYL) 4 mg tablet Take 1 tablet by mouth daily with breakfast. Flurbiprofen 100 mg tablet TAKE ONE TABLET BY MOUTH TWICE DAILY FOR ARTHRITIS clotrimazole-betamethasone (LOTRISONE) cream Apply 1 application to affected area twice daily. ERGOCALCIFEROL, VITAMIN D2, (VITAMIN D2 ORAL) Take 2,000 Units by mouth. Ddwoilgoqzy-Gvduqeavi-Bty C-Mn (GLUCOSAMINE CHONDROITIN MAXSTR) 500-400 mg cap Take 1 capsule by mouth twice daily. atenolol (TENORMIN) 50 mg tablet Take 1 tablet by mouth once daily. orphenadrine ER (NORFLEX) 100 mg tablet Take 1 tablet by mouth once daily. at night for leg cramps as needed nitroglycerin sublingual (NITROQUICK) 0.4 mg SL tablet Dissolve 1 tablet under the tongue as directed. EVERY 5 MIN X3 losartan-hydrochlorothiazide (HYZAAR) 50-12.5 mg per tablet Take 1 tablet by mouth once daily. simvastatin (ZOCOR) 80 mg tablet Take 1 tablet by mouth daily at bedtime. Per Dr. Barba Cinnamon Bark (CINNAMON) 500 mg cap Take 500 mg by mouth. Cbadbepozmwoq-Bkavybet-Rmmstf (CENTRUM SILVER) Tab Take 1 tablet by mouth once daily. Aspirin 81 mg ORAL Tab 2 tablets daily No current facility-administered medications on file prior to visit. Social History Social History Marital status: Spouse name: Years of education: Number of children: Social History Main Topics Smoking status: Former Smoker Packs/day: 0.00 Years: 0.00 Quit date: 07/29/1997 Smokeless status: Former User Alcohol use: No Drug use: No Sexual activity: Not Currently Review of Symptoms REVIEW OF SYSTEMS GENERAL: No weight loss, malaise or fevers NECK: Negative for lumps, goiter, pain and significant neck swelling RESPIRATORY: Negative for cough, hemoptysis, wheezing, COPD, dyspnea or shortness of breath CARDIOVASCULAR: Negative for chest pain, leg swelling, hypertension, CHF or palpitations GI: No nausea, vomiting, or diarrhea and No heartburn or reflux symptoms : No history of dysuria or blood ENDOCRINE: FBS: 97-180. (last average on machine was around 180) NEURO: No history of headaches, syncope, paralysis, seizures or tremors EXAM: BP 132/66 (BP Site: Left Arm, BP Position: Sitting, BP Cuff Size: Large Adult) Pulse 74 Resp 20 Ht 167.6 cm (5' 6ANDquot;) Wt 94.8 kg (209 lb) BMI 33.73 kg/m2 General Appearance: Well appearing, alert, in no acute distress, well-hydrated, well nourished., Obese. Eyes: Anicteric sclera. Pupils are equally round and reactive to light. Extraocular movements are intact. . Oropharynx: Lips, mucosa, and tongue normal, teeth and gums normal, oropharynx normal. Neck: Supple, no adenopathy; thyroid symmetric, normal size, no bruits. Lungs: Lungs clear to auscultation. No wheezing, rhonchi, rales. Heart: RRR without murmur, gallop, or rubs. No ectopy. Abdomen: Normal abdominal exam, Abdomen soft, non-tender. Bowel sounds normal. No masses, organomegaly. Extremities: No deformities, edema . Musculoskeletal: Muscular strength intact, No joint swelling, deformity, or tenderness. Peripheral Pulses: Normal. Neurologic: Gait normal. Reflexes normal and symmetric. Sensation to light touch and crainal nerves 2-12 intact.. Health Maintenance List HEPATITIS C SCREENING due on 1989 FECAL OCCULT BLOOD due on 12/29/2017 DILATED RETINAL EXAM due on 01/11/2018 HBA1C due on 02/07/2018 DIABETIC FOOT EXAM due on 04/12/2018 TETANUS due on 05/22/2018 URINE ALBUMIN CREATININE RATIO due on 08/08/2018 LDL due on 08/08/2018 PROSTATE CANCER SCREENING DISCUSSION Completed ABDOMINAL AORTIC ANEURYSM SCREENING TOPIC Completed ADULT PREVNAR-13 Completed INFLUENZA Completed PNEUMOVAX AGE 65 AND OVER WITH 5YR LOOKBACK Completed Data reviewed Component Latest Ref Rng ANDamp; Units 01/20/2017 04/12/2017 08/08/2017 Protein, Total 6.3 - 8.0 g/dL 7.2 8.0 Albumin 3.9 - 4.9 g/dL 4.1 4.4 Calcium 8.5 - 10.2 mg/dL 9.0 9.8 Bilirubin, Total 0.2 - 1.3 mg/dL 0.5 0.5 Alkaline Phosphatase 36 - 108 U/L 44 47 AST 14 - 40 U/L 19 21 Glucose 74 - 99 mg/dL 118 (H) 136 (H) BUN 9 - 24 mg/dL 13 12 Creatinine 0.73 - 1.22 mg/dL 1.00 0.99 Sodium 136 - 144 mmol/L 141 142 Potassium 3.7 - 5.1 mmol/L 4.2 4.5 Chloride 97 - 105 mmol/L 103 103 CO2 22 - 30 mmol/L 27 26 Anion Gap 9 - 18 mmol/L 11 13 ALT 10 - 54 U/L 21 22 eGFR- ANDgt;60 ANDgt;60 eGFR-All Other Races . ANDgt;60 ANDgt;60 Cholesterol, Total ANDlt;200 mg/dL 101 128 Triglyceride ANDlt;150 mg/dL 94 148 HDL Cholesterol ANDgt;39 mg/dL 51 LDL Cholesterol ANDlt;100 mg/dL 47 Non HDL Cholesterol ANDlt;130 mg/dL 77 Fasting Time hrs 12 VLDL Cholesterol ANDlt;30 mg/dL 30 (H) TC:HDL Ratio ANDlt;5.10 2.51 LDL:HDL Ratio ANDlt;2.54 0.92 HDL CHOLESTEROL 40 45 LDL Cholesterol 70 37 Creatinine, Ur Random (UCRR) 20 - 300 mg/dL 64.2 Albumin, Urine Random 0.0 - 23.0 mg/L ANDlt;12.0 Albumin/Creat Ratio 0 - 30 mg/g Not calculated Hemoglobin A1C 4.3 - 5.6 % 6.6 (H) 6.5 (H) Estimated Average Glucose mg/dL 143 140 A/P ASSESSMENT/PLAN: 1. controlled type 2 diabetes mellitus without complication, without long-term current use of insulin (HCC) - ICD9: 250.02, ICD10: E11.65 (primary diagnosis) Controlled. - Continue current medications - Daily Asprin therapy recommended - BP goal of ANDlt;130/80 - LDL goal of ANDlt;100 2. Hypertension, essential - ICD9: 401.9, ICD10: I10 - good control - Continue current medication(s) - Recommended regular aerobic exercise. - Recommend home blood pressure monitoring, to bring results in on next visit - Goal of BP ANDlt;130/80 3. Mixed hyperlipidemia - ICD9: 272.2, ICD10: E78.2 - good control - Continue current medication. - Encouraged following a low fat, low cholesterol diet. - Discussed the benefits of regular aerobic exercise and weight loss. - Encouraged following a low carbohydrate, healthy oil intake diet. - Copy of labs given to take to his cardio appt. 4. Atherosclerosis of [place] coronary artery of [place] heart without angina pectoris - ICD9: 414.01, ICD10: I25.10 - Clinically stable cont current Tx and cardio f/u 5. KARLA (obstructive sleep apnea) - ICD9: 327.23, ICD10: G47.33 - Doing well and benefiting from nightly CPAP use. Signed Prescriptions Disp Refills Flurbiprofen 100 mg tablet 60 tablet 5 Sig: TAKE ONE TABLET BY MOUTH TWICE DAILY FOR ARTHRITIS BRENNEN: No F/u 6 months WAE, Check A1c, FLP ands PSA prior MD Adair Porter MD 08/14/2017 10:04 AM Signed Please get fasting labs on or after 02/01/2018 prior to next visit. Referring Provider: ADAIR MERRILL [[id number]] Allergies As of Date: 08/14/2017 Noted Allergy Reaction ZINC 02/09/2005 5 - Intolerance Comments: chest pain DIOVAN (VALSARTAN) 02/09/2005 3 - Cough CRESTOR (ROSUVASTATIN CALCIUM) 11/01/2006 Comments: rash and sore muscles METFORMIN 08/01/2005 6 - Diarrhea Date Reviewed: 08/14/2017 Reviewed by: Adair Merrill - Fully Assessed Reason for Visit: Recheck [92] Cmt: 4 months Primary Visit Diagnosis:controlled type 2 diabetes mellitus without complication, without long-term current use of insulin (HCC) [E11.65] Other Visit Diagnoses:Hypertension, essential [I10] Mixed hyperlipidemia [E78.2] Atherosclerosis of [place] coronary artery of [place] heart without angina pectoris [I25.10] KARLA (obstructive sleep apnea) [G47.33] Prostate disorder [N42.9] Order(s):Flurbiprofen 100 mg tabletTAKE ONE TABLET BY MOUTH TWICE DAILY FOR ARTHRITISDisp: 60 tabletRfl: 5 HGB A1C [QNRYX2X] Order #: [id number] FUTURE LIPID PANEL BASIC [SQLIPB] Order #: [id number] FUTURE PSA/PROSTSPECAG DIAG [SQPSA] Order #: [id number] FUTURE CBC + DIFF [SQCBCDIF] Order #: [id number] FUTURE Prescriptions as of 08/14/2017 Sig: FLURBIPROFEN 100 MG TABLET TAKE ONE TABLET BY MOUTH TWIC* METFORMIN ER 500 MG TABLET,EX* Take 1 tablet by mouth twice * GLIMEPIRIDE 4 MG TABLET Take 1 tablet by mouth daily * CLOTRIMAZOLE-BETAMETHASONE 1 * Apply 1 application to affect* VITAMIN D2 ORAL Take 2,000 Units by mouth. DLMNANXQZGL-ESDKUHIHT-JXH C-M* Take 1 capsule by mouth twice* ATENOLOL 50 MG TABLET Take 1 tablet by mouth once d* ORPHENADRINE CITRATE ER 100 M* Take 1 tablet by mouth once d* NITROGLYCERIN 0.4 MG SUBLINGU* Dissolve 1 tablet under the t* LOSARTAN 50 MG-HYDROCHLOROTHI* Take 1 tablet by mouth once d* SIMVASTATIN 80 MG TABLET Take 1 tablet by mouth daily * CINNAMON BARK 500 MG CAPSULE Take 500 mg by mouth. OVGWWFUGTAWD-KLIBVCFV-YEWTMB * Take 1 tablet by mouth once d* * ASPIRIN 81 MG TABLET 2 tablets daily Problem List As Of Date 08/14/2017 Noted Resolved Generalized osteoarthrosis, unspecified site [M*INVALID FOR* Priority: M Mixed hyperlipidemia [E78.2] INVALID FOR* Priority: A Coronary atherosclerosis [I25.10] INVALID FOR* Priority: A More... History of coronary artery stent placement [Z95*INVALID FOR* Priority: A More... KARLA (obstructive sleep apnea) [G47.33] INVALID FOR* Priority: B More... Ex-smoker [Z87.891] INVALID FOR* Priority: C More... Well adult exam [Z00.00] INVALID FOR* Priority: E More... Phimosis [N47.1] INVALID FOR* Priority: C Benign prostatic hyperplasia without lower urin*INVALID FOR* Priority: C Prostate disorder [N42.9] INVALID FOR* Hypertension, essential [I10] INVALID FOR* Priority: A Screening for colon cancer [Z12.11] INVALID FOR* Microscopic hematuria [R31.29] INVALID FOR* Diabetic eye exam (HCC) [Z01.00, E11.9] INVALID FOR* Priority: A More... controlled type 2 diabetes mellitus without com*INVALID FOR* Priority: A Other instructions from your clinician: Please get fasting labs on or after 02/01/2018 prior to next visit. Prescriptions ordered this encounter Disp Refills Start End FLURBIPROFEN 100 MG TABLET 60 t* 5 08/14/2017 Sig: TAKE ONE TABLET BY MOUTH TWICE DAILY FOR ARTHRITIS Medications Discontinued During This Encounter Flurbiprofen 100 mg tablet 60 t* 5 01/31/2017 08/14/2017 Sig: TAKE ONE TABLET BY MOUTH TWICE DAILY FOR ARTHRITIS Disc: Reason for discontinue is not on file. Disposition: Return in about 6 months (around 02/13/2018) for complete PE. Follow-up and Disposition History Recorded Encounter Status:Closed by ADAIR MERRILL on 08/14/17 ALBUMIN/CREAT RATIO Collected: 08/08/2017 Status: F Source: [facility] 9:20 AM [facility] REPOSITORY TYPE CODE TESTS RESULT OUT OF REFERENCE UNITS RANGE LAB UCRR 20-300 mg/dL 64.2 Creatinine,Ur ine,Ran LAB UALBR 0.0-23.0 mg/L <12.0 Albumin Urine Random LAB UALBCR 0-30 mg/g Not Albumin/Creat calculated Ratio Performed By: #### UACR #### [facility] [address] [place], [place] [address] COMP METABOLIC PANEL Collected: 08/08/2017 Status: F Source: [place] 9:10 AM [facility] REPOSITORY TYPE CODE TESTS RESULT OUT OF REFERENCE UNITS RANGE LAB TP 6.3-8.0 g/dL Protein, Total 8.0 LAB ALB 3.9-4.9 g/dL Albumin 4.4 LAB CA 8.5-10.2 mg/dL Calcium, Total 9.8 LAB TBIL 0.2-1.3 mg/dL Bilirubin, Total 0.5 LAB ALKP 36-108 U/L Alkaline Phosphatase 47 LAB AST 14-40 U/L AST 21 LAB GLU 74-99 mg/dL Glucose High 136 Result Comment: The [place] Diabetes Association (ADA) provides guidance for cutoff values for fasting glucose and random glucose. The ADA defines fasting as no caloric intake for at least 8 hours. Fas ting plasma glucose results between 100 to 125 mg/dL indicate increased risk for diabetes (prediabetes). Fasting plasma glucose results greater than or equal to 126 mg/dL meet the criteria for diagnosis of diabetes. In the absence of unequivocal hyperglycemia, results should be confirmed by repeat testing. In a patient with classic symptoms of hyperglycemia or hyperglycemic crisis, random plasma glucose results greater than or equal to 200 mg/dL meet the criteria for diagnosis of diabetes. Reference: Standards of Medical Care in Diabetes 2016, [place] Diabetes Association. Diabetes Care. 2016.39(Suppl 1). LAB BUN 9-24 mg/dL BUN 12 LAB CRET 0.73-1.22 mg/dL Creatinine 0.99 LAB NA 136-144 mmol/L Sodium 142 LAB K 3.7-5.1 mmol/L Potassium 4.5 LAB CL 97-105 mmol/L Chloride 103 LAB CO2 22-30 mmol/L CO2 26 LAB AGAP 9-18 mmol/L Anion Gap 13 LAB ALT 10-54 U/L ALT 22 LAB GFRAA eGFR- Amer. >60 LAB GFRNAA . eGFR-All Other Races >60 Result Comment: eGFR (Estimated GFR) Units of measure: mL/min/1.73 meters squared eGFR is derived from the reexpressed MDRD Study equation using the following parameters: serum creatinine, age, gender and race. The creatinine assay has been calibrated to be traceable to IDMS. An eGFR <60 mL/min/1.73m2 for >3 months is consistent with chronic kidney disease. Refer to KDOQI guidelines for clinical interpretation. In patients with unstable renal function, e.g. those with acute kidney injury, the eGFR may not accurately reflect actual GFR. Performed By: #### CMP, LIPB, HBA1C #### [facility] [address] [place], [place] [address] LIPID PANEL, BASIC Collected: 08/08/2017 Status: F Source: [place] 9:10 AM [facility] REPOSITORY TYPE CODE TESTS RESULT OUT OF REFERENCE UNITS RANGE LAB CHOL <200 mg/dL Cholesterol 128 Result Comment: <200 mg/dL, Desirable 200-239 mg/dL, Borderline high >239 mg/dL, High LAB TRIGLY <150 mg/dL Triglyceride 148 Result Comment: <150 mg/dL, Normal 150-199 mg/dL, Borderline high 200-499 mg/dL, High >499 mg/dL, Very high LAB HDL >39 mg/dL HDL-Cholesterol 51 Result Comment: 40-59 mg/dL, Acceptable >59 mg/dL, High: Negative risk factor for coronary heart disease <40 mg/dL, Low: Positive risk factor for coronary heart disease LAB LDL <100 mg/dL LDL-Cholesterol 47 Result Comment: <100 mg/dL, Optimal 100-129 mg/dL, Near optimal/above optimal 130-159 mg/dL, Borderline high 160-189 mg/dL, High >189 mg/dL, Very high Secondary prevention optimal LDL Cholesterol levels are recommended to be < 70 mg/dL LAB NONHDL <130 mg/dL Non HDL Cholesterol 77 Result Comment: <130 mg/dL, Optimal 130-159 mg/dL, Near optimal/above optimal 160-189 mg/dL, Borderline high 190-219 mg/dL, High >219 mg/dL, Very high Secondary prevention optimal non HDL Cholesterol levels are recommended to be < 100 mg/dL LAB FT hrs Fasting Time 12 LAB VLDL <30 mg/dL High VLDL Cholesterol 30 LAB TCHDL <5.10 TC:HDL Ratio 2.51 LAB LDLHDL <2.54 LDL:HDL Ratio 0.92 Result Comment: Reference: 1. National Cholesterol Education Program ATP III Guideline At-A-Glance Quick Desk Reference: National Heart, Lung, and Blood [place]. National Institutes of Health. 2001: NIH Publication No. 01-3305. 2. An International Atherosclerosis Society position paper: global recommendations for the management of dyslipidemia: executive summary, Atherosclerosis. 2014: 232(2):410-413. Performed By: #### CMP, LIPB, HBA1C #### [facility] [address] [place], [place] [address] HEMOGLOBIN A1C Collected: 08/08/2017 Status: F Source: [place] 9:10 AM [facility] REPOSITORY TYPE CODE TESTS RESULT OUT OF REFERENCE UNITS RANGE LAB HGBA1C 4.3-5.6 % High Hemoglobin A1c 6.5 LAB HBA0 mg/dL Est. Average Glucose 140 Result Comment: eAG: (Estimated average glucose) is a calculated value from HgbA1c and is data entry representative of the average blood glucose level in the last 2-3 month period. Performed By: #### CMP, LIPB, HBA1C #### [facility] [address] [place], [place] [address] ALLERGIES ALLERGIES DATE TYPE / NAME / CODE REACTION SEVERITY SOURCE CODE 04/08/2018 Drug rosuvastatin/F0060 Rash [place] Allergy/41 51614(RXNORM) [facility] [id number]([facility] OME CT) Repository 11/01/2006 DRUG ROSUVASTATIN OTHER: SEE C [facility] INGREDI/ CALCIUM [facility] [id number]( Repository OMED CT) 11/01/2006 DRUG [facility] [id number]( Repository OMED CT) 08/01/2005 DRUG METFORMIN DIARRHEA Low [facility] [address] [id number]( Repository OMED CT) 08/01/2005 DRUG METFORMIN DIARRHEA [facility] [address] [id number]( Repository OMED CT) 02/09/2005 DRUG ZINC INTOLERANCE High [address] [id number]( Repository OMED CT) 02/09/2005 DRUG VALSARTAN COUGH Med [facility] [address] [id number]( Repository OMED CT) ENCOUNTERS ENCOUNTERS ADMIT/DISCHARGE ACCOUNT ADMITTING ENCOUNTER LOCATION SOURCE NUMBER CLASS 04/10/2018 [id number] Ambulatory [facility] Hospital ing:LAB Repository 04/08/2018/04/08/20 [id number] Ambulatory [address] Repository 04/08/2018/04/08/20 [id number] Ambulatory BMSBuilding:B [place] [address] Repository 02/22/2018/02/26/20 [id number] Ambulatory [address] Repository 02/18/2018/02/19/20 [id number] Ambulatory [address] Repository 09/27/2017 [id number] Ambulatory [facility] ing:[facility] Repository 09/27/2017 [id number] [facility]ulatory [facility] 09/21/2017 [id number] Ambulatory [facility] Hospital ing:LAB Repository 09/21/2017 [id number] Ambulatory [facility]MSBuilding[facility] Repository 08/20/2017/08/21/19 [id number] Ambulatory BMSBuilding:B [place] 18 MS.[facility] Repository 08/14/2017/08/16/19 [id number] Ambulatory [address] Repository 08/08/2017/08/11/19 [id number] Ambulatory [address] Repository PAYERS PAYERS ENCOUNTER GUARANTOR PAYER SUBSCRIBER SOURCE 04/10/2018 ESTELLA D Primary NOT GIVENUNK [place] [id number] E Insurance:SELF [place]Y [place] Number: Effective Repository [id number]: (330) Date:2018-04-10 () 04/08/2018 ESTELLA D Primary NOT GIVENUNK [place] [id number] E Insurance:[place] Number: Effective Repository [id number]: (330) Date:2018-04-08 () 09/27/2017 ESTELLA D Primary Insurance:[facility] ESTELLA D [place] [id number] E PACKAGE PLANPolicy STUTZMANDOB: [facility] Number: [id number] Date:2017-09-26 Repository [id number]: () 09/27/2017 Secondary NOT GIVENUNK [place] Insurance:SELF PAY [facility] Number: Effective Repository Date:2017-09-26 09/27/2017 ESTELLA D Primary Insurance:[facility] ESTELLA D [place] [id number] E PACKAGE PLANPolicy STUTZMANDOB: Community HUSAM RDAPPLE Number: [id number] [place] Date:2017-09-26 Repository [id number]: () 09/27/2017 Secondary NOT GIVENUNK [place] Insurance:SELF PAY [facility] Number: Effective Repository Date:2017-09-27 09/21/2017 ESTELLA D Primary ESTELLA D [place] [id number] E Insurance:DIANNE STUTZMANDOB: [facility] Number: [id number] [id number] Repository [id number]: 330) Date:2017-09-21 () 09/21/2017 Secondary NOT GIVENUNK [place] Insurance:SELF PAY [facility] Number: Effective Repository Date:2017-09-21 09/21/2017 ESTELLA D Primary Insurance:[facility] ESTELLA D [place] [id number] E PACKAGE PLANPolicy STUTZMANDOB: Community HUSAM RDAPPLE Number: [id number] Date:2017-09-26 Repository [id number]: () 09/21/2017 Secondary NOT GIVENUNK [place] Insurance:SELF PAY [facility] Number: Effective Repository Date:2017-09-21 08/20/2017 ESTELLA D Primary NOT GIVENUNK [place] [id number] E Insurance:SELF [place] Number: Effective Repository [id number]: [phone]) Date:2017-04-09 [phone] ()
== END ==
PROVIDERS: Family Provider Family Medicine; PCP Family Medicine; Referring Provider Internal Medicine Cardiovascular Disease; Visit Provider Internal Medicine Cardiovascular Disease
DX: E78.5 Hyperlipidemia, unspecified (principal); I25.10 Atherosclerotic heart disease of native coronary artery without angina pectoris
CPT/HCPCS: 80061; 80076

== ENCOUNTER → 2018-11-09 | Outpatient (CLI) | payer SELFPAY ==
[2018-11-04 14:08] VITALS: BMI 33.9
[2018-11-09 08:36] LABS: AST(SGOT) 19 U/L (15-37); Alanine Aminotransfer ALT/SGPT 33 U/L (16-61); Albumin, Serum 3.6 g/dL (3.2-5.0); Alkaline Phosphatase 55 U/L (45-117); Bilirubin, Direct 0.18 mg/dL (0.00-0.30); Cholesterol 104 mg/dL (200); Globulin 3.6 g/dL (2.2-4.2); High Density Lipoprotein 45 mg/dL; Protein, Total 7.2 g/dL (6.4-8.2); Triglycerides 119 mg/dL; Very Low Density Lipoprotein 24 mg/dL (5-40)
== END | disposition home or self-care (01) ==
LOC: LAB 07:27
PROVIDERS: Family Provider Family Medicine; PCP Family Medicine; Referring Provider Internal Medicine Cardiovascular Disease; Visit Provider Internal Medicine Cardiovascular Disease
DX: E78.5 Hyperlipidemia, unspecified (principal)
CPT/HCPCS: 36415; 80061; 80076

== ENCOUNTER → 2018-11-19 | Outpatient (CLI) | payer SELFPAY ==
[2018-11-04 14:08] VITALS: BMI 33.9
--- NOTE | 2018-11-19 07:37 | ECHOD_ITS ---
Reason For Study: CAD/ASHD Procedure This was a 2D Doppler, Color Flow transthoracic echocardiogram. Exam performed in department. Left Ventricle Normal size and thickness. The estimated ejection fraction is 55 %. Stage 1 diastolic dysfunction. No regional wall motion abnormalities noted. Right Ventricle Normal size and thickness. Normal systolic function. Atria Normal left atrium. Normal right atrium. Normal atrial septum. Mitral Valve The mitral valve is structurally normal. No prolapse or stenosis seen. Tricuspid Valve Normal tricuspid valve. Trivial tricuspid valve insufficiency. Right ventricular systolic pressure estimated to be 27 mmHg. Aortic Valve Normal aortic valve. Trisinus/trileaflet aortic valve. Pulmonic Valve Normal pulmonic valve. Great Vessels Normal aortic root. Normal arch. Normal inferior vena cava. Inferior vena cava collapse with sniff. Pericardium/Pleural No pericardial effusion. MMode/2D Measurements & Calculations LVIDd: 4.8 cm IVSd: 1.2 cm Ao root diam: 3.5 cm LVIDs: 3.5 cm LVPWd: 1.2 cm RVDd: 3.5 cm FS: 28.5 % LAV(MOD-bp): 59.3 ml LA A4 area: 19.1 cm2 LA dimension(2D): 4.0 cm LAV(MOD-bp) Indexed: 29.4 ml/m2 LAV(MOD-sp2): 62.4 ml LAV(MOD-sp4): 56.1 ml RA A4 area: 15.7 cm2 Time Measurements MV dec time: 0.23 sec Doppler Measurements & Calculations MV E max jeancarlos: 57.7 cm/sec Lat Peak E' Jeancarlos: 6.5 cm/sec Med Peak E' Jeancarlos: 6.8 cm/sec MV A max jeancarlos: 82.4 cm/sec E/E' lat: 8.8 E/E' med: 8.4 MV E/A: 0.70 Ao V2 max: 133.2 cm/sec LV V1 max: 78.1 cm/sec PA V2 max: 111.5 cm/sec Ao max P.1 mmHg LV V1 max P.4 mmHg TR max jeancarlos: 236.4 cm/sec TR max P.4 mmHg Interpretation Summary The estimated ejection fraction is 55 %. Stage 1 diastolic dysfunction. Trivial tricuspid valve insufficiency. Right ventricular systolic pressure estimated to be 27 mmHg. Compared to echo report dated 05/24/2011, no appreciable changes noted. Ordering Physician: Terry Barba Referring Physician: César Osorio Performed By: Korina Chavez RDCS, RVT
== END | disposition home or self-care (01) ==
LOC: CVS 07:34
PROVIDERS: Family Provider Family Medicine; PCP Family Medicine; Referring Provider Internal Medicine Cardiovascular Disease; Visit Provider Internal Medicine Cardiovascular Disease
DX: I25.10 Atherosclerotic heart disease of native coronary artery without angina pectoris (principal); Z95.5 Presence of coronary angioplasty implant and graft; I25.2 Old myocardial infarction; I34.1 Nonrheumatic mitral (valve) prolapse
CPT/HCPCS: 93306

== ENCOUNTER → 2019-05-28 10:23 | Outpatient (CLI) | payer OTHER, SELFPAY ==
[2019-05-26 13:49] VITALS: BMI 33.9
[2019-05-28 11:34] LABS: AST(SGOT) 23 U/L (15-37); Alanine Aminotransfer ALT/SGPT 41 U/L (16-61); Albumin, Serum 3.8 g/dL (3.2-5.0); Alkaline Phosphatase 57 U/L (45-117); Bilirubin, Direct 0.22 mg/dL (0.00-0.30); Cholesterol 115 mg/dL (200); Globulin 3.9 g/dL (2.2-4.2); High Density Lipoprotein 50 mg/dL; Protein, Total 7.7 g/dL (6.4-8.2); Triglycerides 116 mg/dL; Very Low Density Lipoprotein 23 mg/dL (5-40)
== END ==
PROVIDERS: PCP Family Medicine; Referring Provider Internal Medicine Cardiovascular Disease; Visit Provider Internal Medicine Cardiovascular Disease
DX: E78.5 Hyperlipidemia, unspecified (principal)
CPT/HCPCS: 36415; 80061; 80076

== ENCOUNTER → 2019-11-28 07:24 | Outpatient (CLI) | payer SELFPAY ==
[2019-11-24 09:21] VITALS: BMI 33.5
[2019-11-28 08:33] LABS: AST(SGOT) 24 U/L (15-37); Alanine Aminotransfer ALT/SGPT 39 U/L (16-61); Albumin, Serum 3.7 g/dL (3.2-5.0); Alkaline Phosphatase 54 U/L (45-117); Bilirubin, Direct 0.24 mg/dL (0.00-0.30); Cholesterol 97 mg/dL (200); Globulin 3.6 g/dL (2.2-4.2); High Density Lipoprotein 42 mg/dL; Protein, Total 7.3 g/dL (6.4-8.2); Triglycerides 107 mg/dL; Very Low Density Lipoprotein 21 mg/dL (5-40)
== END ==
PROVIDERS: PCP Family Medicine; Referring Provider Internal Medicine Cardiovascular Disease; Visit Provider Internal Medicine Cardiovascular Disease
DX: E78.00 Pure hypercholesterolemia, unspecified (principal); E78.5 Hyperlipidemia, unspecified
CPT/HCPCS: 36415; 80061; 80076

== ENCOUNTER → 2019-12-09 09:26 | Outpatient (CLI) | payer SELFPAY ==
[2019-11-24 09:21] VITALS: BMI 33.5
--- NOTE | 2019-12-09 09:28 | STE_ITS ---
Reason For Study: CAD Stress Results Protocol: Francisco J Protocol Maximum Predicted HR: 146 bpm Target HR: 124 bpm % Maximum Predicted HR: 97 % DurationHeart Rate Stage (mm:ss) (bpm) BP Comment Baseline 67 148/72No Chest Pain Francisco J Protocol Stage I 3:00 113 152/64No Chest Pain Francisco J Protocol Stage II 3:00 131 184/70No Chest Pain; Mild Dyspnea Francisco J Protocol Stage III 1:00 141 / No Chest Pain; Moderate Dyspnea Recovery 97 138/64No Chest Pain; No Dyspnea Stress Duration: 7:00 mm:ss Maximum Stress HR: 141 bpm METS: 10 Baseline Echocardiogram Findings The estimated ejection fraction is 65 %. Stress Echo Wall motion Data Resting WM Intermediate WM Stress WM Resting Wall Motion Wall Motion Stress No regional wall motion No regional wall motion abnormalities noted. abnormalities noted. EKG Data The baseline ECG displays normal sinus rhythm. The patient exercised according to the regular Francisco J protocol for a total duration of 7:00. The maximum heart rate attained was 146 beats per minute. This was 100% of maximum predicted heart rate. The patient exercised into stage 3 of the Francisco J protocol. During stress, there were no ST or T wave changes noted to suggest ischemia. No clinical angina was noted. Interpretation Summary The estimated ejection fraction is 65 %. Normal, adequate, treadmill echocardiogram. Negative for ischemia by EKG and echocardiographic criteria. No anginal symptoms noted. Rare PVCs noted. Appropriate blood pressure response to exercise. Average exercise capacity for age. Patient tolerated procedure well. Final LVEF is 75%. Test terminated due to dyspnea. No complications. Ordering Physician: Terry Barba Referring Physician: César Osorio M.D. Performed By: Olinda Rice RDCS
== END ==
PROVIDERS: PCP Family Medicine; Referring Provider Internal Medicine Cardiovascular Disease; Visit Provider Internal Medicine Cardiovascular Disease
DX: I25.10 Atherosclerotic heart disease of native coronary artery without angina pectoris (principal); Z95.5 Presence of coronary angioplasty implant and graft; E78.5 Hyperlipidemia, unspecified; I10 Essential (primary) hypertension; I25.2 Old myocardial infarction
CPT/HCPCS: 93017; 93350

== ENCOUNTER → 2020-06-01 10:42 | Outpatient (CLI) | payer OTHER, SELFPAY ==
[2020-06-01 10:02] VITALS: BMI 33.4
[2020-06-01 11:56] LABS: AST(SGOT) 30 U/L (15-37); Alanine Aminotransfer ALT/SGPT 43 U/L (16-61); Albumin, Serum 3.6 g/dL (3.2-5.0); Alkaline Phosphatase 60 U/L (45-117); Bilirubin, Direct 0.13 mg/dL (0.00-0.30); Cholesterol 109 mg/dL (200); Globulin 4.1 g/dL (2.2-4.2); High Density Lipoprotein 49 mg/dL; Protein, Total 7.7 g/dL (6.4-8.2); Triglycerides 151 mg/dL; Very Low Density Lipoprotein 30 mg/dL (5-40)
== END ==
PROVIDERS: PCP Family Medicine; Referring Provider Physician Assistant Medical; Visit Provider Physician Assistant Medical
DX: I10 Essential (primary) hypertension (principal); E78.5 Hyperlipidemia, unspecified; I25.10 Atherosclerotic heart disease of native coronary artery without angina pectoris
CPT/HCPCS: 36415; 80061; 80076

== ENCOUNTER 2021-01-18 09:14 | Emergency (ER) | payer MEDICARE, OTHER, SELFPAY ==
[2021-01-18 09:14] VITALS: BP 166/75; PULSE 113; RESP 32; TEMP 37.6; O2SAT 94; BMI 32.3
--- NOTE | 2021-01-18 09:33 | RAD_ITS ---
STUDY: X-RAY CHEST REASON FOR EXAM: Male, 75 years old. Bilateral rales TECHNIQUE: Single AP portable view of the chest. COMPARISON: None. FINDINGS: EKG electrodes are seen. Patchy infiltrate in the right lung base as well as in the left lung. There is blunting of the left costophrenic angle. Normal size heart. Normal mediastinum and snehal. Normal visualized pulmonary arteries. There is atherosclerotic calcification of the aortic arch with tortuosity. There are diffuse degenerative changes of the visualized thoracic spine. Prior fusion of the lower cervical spine. There is no demonstrated abnormality of the visualized soft tissue structures of the upper abdomen. RAD/Chest 1 View (Portable) IMPRESSION: Patchy bilateral pulmonary infiltrates worse in the left lung. Blunting of the left costophrenic angle. Electronically Signed: Biju Armendariz MD at 11:07 EDT , Service support ,
--- NOTE | 2021-01-18 09:33 | EKG12_ITS ---
Test Reason : SOB Blood Pressure : / mmHG Vent. Rate : 116 BPM Atrial Rate : 116 BPM P-R Int : 198 ms QRS Dur : 084 ms QT Int : 304 ms P-R-T Axes : 044 -17 040 degrees QTc Int : 422 ms Sinus tachycardia Otherwise normal ECG Confirmed by LESVIA BAIN, YONI ([id number]), web editor IRMA CHOU ([id number]) on 01/21/2021 10:02:08 AM Referred By: SAVI Confirmed By:YONI LAKHANI MD
[2021-01-18 09:34] VITALS: O2SAT 92
--- NOTE | 2021-01-18 09:35 | EDS_ITS ---
HPI History of Present Illness Chief Complaint: Shortness of Breath Detail of Chief Complaint: Shortness of breath, generalized weakness and fatigue Informant: patient and legal guardian Onset/Context/Timing Onset: Days (Onset 5 days ago) Context: Sudden Onset Timing: Continuous Quality: Subjective fever, cough, shortness of breath, fatigue Location: Respiratory Current Severity: Mild Maximum Severity: Moderate Worsened by: This been on exertion Relieved by: Nothing Associated Symptoms Associated Symptoms: Generalized weakness with respiratory symptoms Narrative Narrative: Patient is an elderly male with multiple medical problems who presents with onset of respiratory symptoms 5 days ago. He reports subjective fever. He reports mild congestion with cough. The cough is nonproductive. He does endorse swelling of his legs and feet. He denies increased orthopnea. He denies PND. He denies chest discomfort. He denies history of PE or DVT. He denies black or maroon-colored stool. He denies headache. He denies ocular, visual auditory symptoms. He denies loss of taste or smell. He denies rash. He does report aching. He denies n eurologic symptoms. Prior similar symptoms: No Recent Illness/Hospitalization: No [facility] Medical History (Updated 01/18/21 @ 10:[address] Heath Hwang MD) Atherosclerotic heart disease of [place] coronary artery without angina pectoris Diabetes mellitus type II, controlled History of anterior wall myocardial infarction Hyperlipidemia Hypertension Nonrheumatic mitral (valve) prolapse Home Medications antiarthritic combination no.2 900 mg tablet See Rx Instructions PO .q day tab 08/18/17 [History Last Taken Unknown] aspirin 81 mg tablet,delayed release 81 mg PO QDAY 08/18/17 [History Last Taken Unknown] cholecalciferol (vitamin D3) 50 mcg (2,000 unit) tablet 2,000 unit PO QDAY 08/18/17 [History Last Taken Unknown] flurbiprofen 100 mg tablet 100 mg PO BID 08/18/17 [History Last Taken Unknown] glimepiride 4 mg tablet 4 mg PO QAM 08/18/17 [History Last Taken Unknown] metformin 500 mg tablet 500 mg PO BID 08/18/17 [History Last Taken Unknown] multivitamin 1 tab PO QDAY 08/18/17 [History Last Taken Unknown] orphenadrine citrate 100 mg tablet,extended release 100 mg PO .q day tab 04/21/18 [History Last Taken Unknown] nitroglycerin 0.4 mg sublingual tablet 0.4 mg SUBLINGUAL Q5-15M PRN #25 tab 11/04/18 [Rx Last Taken Unknown] atenolol 25 mg tablet 25 mg PO DAILY #90 tab 02/17/20 [Rx Last Taken Unknown] losartan 50 mg tablet 50 mg PO DAILY #90 tab 06/01/20 [Rx Last Taken Unknown] simvastatin 80 mg tablet 80 mg PO QPM #90 tab 09/06/20 [Rx Last Taken Unknown] hydrochlorothiazide 12.5 mg tablet 12.5 mg PO DAILY #90 tab 09/29/20 [Rx Last Taken Unknown] dexamethasone [Decadron] 6 mg PO DAILY #6 tab 01/18/21 [Rx Last Taken Unknown] Allergy/AdvReac Type Severity Reaction Status Date / Time rosuvastatin [From Crestor] Allergy Intermediate Rash Verified 06/01/20 10:00 Family History Father , age 81 CAD (coronary artery disease) History of angioplasty, stent, CABG and valvular heart disease Mother , age 42 Heart disease Brother No problems noted. Sister , age 57 of renal cancer Renal cancer Surgical History Stented coronary artery Social History (Updated 01/18/21 @ 09:[address] Heath Hwang MD) household members: spouse Smoking Status: Former smoker alcohol intake: current alcohol intake frequency: other substance use type: does not use ROS ROS ED Constitutional Constitutional ED: Reports fever(s) and subjective; Denies chills, sweats or weight loss Eyes Eyes: Denies blurry vision, change in vision or diplopia ENT ENT ED: Reports rhinorrhea and sore throat; Denies ear pain Cardiovascular Cardiovascular: Denies chest pain, orthopnea, palpitations, paroxysmal nocturnal dyspnea or racing heartbeat Respiratory/Chest Respiratory/Chest: Reports cough, dyspnea and dyspnea on exertion; Denies orthopnea, paroxysmal nocturnal dyspnea or sputum Gastrointestinal Gastrointestinal: Reports diarrhea and other Details: Patient reports diarrhea started Sunday. ; Denies abdominal pain, constipation, nausea or vomiting Genitourinary Genitourinary ED: Denies dysuria, hematuria or urinary frequency Musculoskeletal Musculoskeletal: Reports myalgias; Denies arthralgias, back pain or neck pain Integumentary Denies rash Neurologic Neurologic: Reports weakness; Denies headache(s) or paresthesias Endocrine Endocrinology: Denies polydipsia, polyphagia or polyuria EXAM Physical Exam Const Vital Signs: 01/18/21 09:14 01/18/21 09:34 Temperature 99.6 F H Temperature Source Temporal Pulse Rate 113 H Respiratory Rate 32 H Respiratory Effort Short of Breath Respiratory Depth Deep Respiratory Pattern Tachypnea Blood Pressure 166/75 H Blood Pressure Mean 105 Pulse Ox 94 Oxygen Delivery Method Room Air Room Air Positive well nourished, well developed and obese General Appearance ED: well developed; Negative for cyanotic, diaphoretic or NAD Nutritional Appearance: obese HEENT Reports TM's clear and moist mucous membranes HEENT Narrative: Head is atraumatic normocephalic. Nares patent with no discharge. Tympanic Membrane ED: Yes TM's clear Eyes PERRL and EOMs intact bilaterally General Eye ED: Negative for pale conjunctiva or scleral icterus Neck no lymphadenopathy, supple and no JVD Chest Wall inspection of chest normal Resp No normal respiratory effort and No clear to auscultation bilaterally Effort and Inspection: Negative for retractions Auscultation: rales bilateral (Right greater than left) base and diminished lung sounds; Negative for wheezes Cardio regular rhythm, S1 normal heart sound, S2 normal heart sound and no murmurs Rate: tachycardic GI normal to inspection, nondistended, normoactive bowel sounds and non-tender Palpation: soft Back/Spine no CVA tenderness Thoracic Spine / Upper Back: Negative for thoracic spinal tenderness or paraspinal muscle tenderness Lumbar Spine / Lower Back: Negative for lumbar spinal tenderness Extremity normal to inspection Extremity Narrative: 1+ pitting edema General Extremety ED: Yes edema; Negative for tenderness General Extremity: edema Neuro oriented x3 and CN's II-XII intact bilaterally Sensorium / Orientation: alert Motor Exam: strength 5/5 throughout Psych mental status grossly normal Skin no rashes or lesions noted and no wounds MDM MDM MDM Narrative Medical decision making narrative: Patient presents with shortness of breath. This may represent pneumonia, Covid pneumonia, congestive heart failure since he has rales with bilateral pedal edema. To evaluate patient's symptoms and findings EKG, chest x-ray and appropriate labs were ordered. Covid test was ordered as well. I was informed by the hospitalist Dr. Lenny cook he did the reinstituted the home oxygen plan for Covid patients. Patient does qualify for home oxygen. He was discharged prescription for Decadron and arrangements were made to have oxygen at patient's residence. Lab Data Attestation: I reviewed the patient's lab results. Lab results narrative: Test is positive. Since patient is tachypneic, tachycardic and now requiring oxygen at rest will call hospitalist for admission. Blood sugar is elevated to 28 with a normal CO2 and anion gap. Estimated GFR is 50 with a creatinine of 1.14. Labs: Laboratory Results - last 24 hr 01/18/21 01/18/21 01/18/21 09:40 09:40 09:40 WBC 2.6 L RBC 4.39 L Hgb 14.8 Hct 42.8 MCV 97.5 H MCH 33.7 H MCHC 34.6 RDW Std Deviation 46.2 H RDW Coeff of Gem 12.8 Plt Count 121 L MPV 9.5 Immature Gran % (Auto) 0.400 Neut % (Auto) 65.1 Lymph % (Auto) 24.4 [place] % (Auto) 10.1 H Eos % (Auto) 0.0 Baso % (Auto) 0.0 Absolute Neuts (auto) 1.7 L Absolute Lymphs (auto) 0.63 L Nucleated RBC % 0 Sodium 133 L Potassium 4.2 Chloride 102 Carbon Dioxide 25.0 Anion Gap 6 BUN 19 H Creatinine 1.14 Estim Creat Clear Calc 50.52 Est GFR (MDRD) Af Amer 80 Est GFR (MDRD) Non-Af 66 BUN/Creatinine Ratio 16.7 Glucose 228 H Calcium 8.7 Total Bilirubin 0.60 AST 57 H ALT 52 Alkaline Phosphatase 57 Troponin I High Sens 12 B-Natriuretic Peptide 10.4 Total Protein 7.9 Albumin 3.2 Globulin 4.7 H Albumin/Globulin Ratio 0.7 L Radiography Chest X-Ray - ED: 1 View (Single view portable chest x-ray reveals bilateral interstitial filtrates consistent with Covid. Patient's Covid test is positive.), Read by ED Physician (Chest is right at 1008.), Normal, Heart, Mediastinum, Bony Structures, Right Infiltrate and Left Infiltrate Diagnostic Testing: Radiology Impression Chest X-Ray 01/18/21 09:33 IMPRESSION: Patchy bilateral pulmonary infiltrates worse in the left lung. Blunting of the left costophrenic angle. Electronically Signed: Biju Armendariz MD at 11:07 EDT , Service support , Rhythm Strip Rhythm Strip: Sinus Tach Rate: 122 Ectopy: None EKG Initial EKG: Attestation: I personally reviewed and interpreted this EKG as follows: Interpretation: Sinus Tachycardia (Sinus tachycardia with a ventricular rate of 116. SD intervals 198 ms. Cures duration 84 ms. QS T duration is 304 ms. Brooks is normal.) Discharge Plan Triage Chief Complaint: Shortness of Breath ED Provider: Heath Hwang Dx/Rx/DC Orders Clinical Impression: Pneumonia due to 2019-nCoV, Acute respiratory failure with hypoxia, Sinus tachycardia by electrocardiogram, Hyperglycemia due to type 2 diabetes mellitus Instructions: Coronavirus Disease 2019 (COVID-19): Caring for Yourself or Others Prescriptions: New dexamethasone [Decadron] 6 mg tablet 6 mg PO DAILY Qty: 6 RF: 0 No Action glimepiride 4 mg tablet 4 mg PO QAM RF: 0 metformin 500 mg tablet 500 mg PO BID RF: 0 cholecalciferol (vitamin D3) 2,000 unit tablet 2,000 unit tablet 2,000 unit PO QDAY RF: 0 aspirin [Adult Aspirin Regimen] 81 mg tablet,delayed release (DR/EC) 81 mg PO QDAY RF: 0 orphenadrine citrate 100 mg tablet extended release 100 mg PO .q day RF: 0 multivitamin tablet 1 tab PO QDAY RF: 0 antiarthritic combination no.2 [glucosamine-chondroitin] 900 mg tablet See Rx Instructions PO .q day RF: 0 flurbiprofen 100 mg tablet 100 mg PO BID RF: 0 nitroglycerin 0.4 mg tablet, sublingual 0.4 mg SUBLINGUAL Q5-15M PRN (Reason: chest pain) Qty: 25 RF: 3 losartan 50 mg tablet 50 mg PO DAILY Qty: 90 RF: 3 atenolol 25 mg tablet 25 mg PO DAILY Qty: 90 RF: 4 simvastatin 80 mg tablet 80 mg PO QPM Qty: 90 RF: 3 hydrochlorothiazide 12.5 mg tablet 12.5 mg PO DAILY Qty: 90 RF: 3 Primary Care Provider: César Osorio Referrals: César Osorio MD [Primary Care Provider] - 10-14 Days if not better Disposition Disposition: Home, Self Care
[2021-01-18 09:51] LABS: Absolute Lymphocyte Count 0.63 X10^3/uL (0.83-4.51); Absolute Neutrophil Count 1.7 X10^3/uL (2.0-7.7); Hematocrit 42.8 % (40-54); Hemoglobin 14.8 g/dL (13.0-16.5); Lymphocyte # 0.63 X10^3/ul (0.83-4.51); Lymphocyte % 24.4 % (19-41); Mean Corp Hgb Conc 34.6 g/dL (32-36); Mean Corpuscular Hgb 33.7 pg (27.0-32.0); Mean Corpuscular Volume 97.5 fL (80-94); Mean Platelet Vol. 9.5 fl (6.2-12.0); Monocyte# 0.26 X10^3/uL; Monocyte% 10.1 % (0-10); NRBC Flagged by Analyzer 0 % (0-5); Neutrophil # 1.68 X10^3/uL (2.7-7.7); Neutrophil % 65.1 % (47-70); Platelet Count 121 K/mm3 (150-450); RBC Distribution Width CV 12.8 % (11.6-14.6); RBC Distribution Width SD 46.2 fl (35.1-43.9); Red Blood Count 4.39 M/mm3 (4.6-6.2); White Blood Count 2.6 K/mm3 (4.4-11.0)
[2021-01-18 10:08] LABS: ALB/GLOB Ratio 0.7 RATIO (0.9-2.4); AST(SGOT) 57 U/L (15-37); Alanine Aminotransfer ALT/SGPT 52 U/L (16-61); Albumin, Serum 3.2 g/dL (3.2-5.0); Alkaline Phosphatase 57 U/L (45-117); Anion Gap 6 (5-15); BUN 19 mg/dL (7-18); BUN/Creat Ratio 16.7 RATIO (10-20); Calcium,Total 8.7 mg/dL (8.5-10.1); Chloride 102 mmol/L (98-107); Creatinine, Serum 1.14 mg/dL (0.70-1.30); EST Glomerular Filtration Rate 66 mL/min (>60); Est Glom Filt Rate - Afr Amer 80 mL/min (>60); Estimated Creatinine Clearance 50.52 ml/min; Globulin 4.7 g/dL (2.2-4.2); Glucose 228 mg/dL (74-106); Potassium 4.2 mmol/L (3.5-5.1); Protein, Total 7.9 g/dL (6.4-8.2); Sodium Level 133 mmol/L (136-145); Troponin-I HS 12 pg/mL (3.0-78.0)
[2021-01-18 10:27] LABS: BNP,B-Type NATRIURETIC PEPTIDE 10.4 pg/mL (0-100)
[2021-01-18 11:10] VITALS: O2SAT 94
[2021-01-18 11:33] VITALS: BP 138/77; PULSE 62; RESP 15; O2SAT 93
--- NOTE | 2021-01-18 11:33 | CM.ED ---
SOCIAL WORK Referral Source: Dr. Hwang Reason for Consult: COVID-19 positive home O2 Received call from Dr. Hwang, patient requires home O2. Patient does not smoke, lives home with . Patient is Jainism and does not have electricity in the home. Patient was given pulse ox. Patient in agreement to have O2 set up through [employer]. [employer], [employer], and positive COVID-19 test result faxed and called to [employer]. Portable tank provided. RT to review O2 with patient and . Notified case management for follow up. Plan: Home with O2 through [employer] Ramone Huerta, WHARF BUILDER, ADVERTISING JOB TITLES
[2021-01-18] MEDS: dexAMETHasone 10 MG/ML Vial IV (12:05)
--- NOTE | 2021-01-18 12:06 | CM.ED ---
SOCIAL WORK Call to [facility] [place] to update patient has been discharged from ED. Ramone Huerta, PROGRAM DIRECTOR AIR TALENT, DIE TRY OUT WORKER
--- NOTE | 2021-01-19 17:05 | CASEMGMT ---
[facility] ED COVID Home O2 follow-up: This [facility] attempted to contact pt via phone for follow-up to pt's discharge from the ED with home O2. Voicemail for a business received so a message was not left. Kayleen Julian RN CM
--- NOTE | 2021-01-20 12:35 | CASEMGMT ---
RN [facility] ED COVWA Home O2 Follow-up: This RN CM attempted to contact pt for follow-up. The only number listed is a work number for both the pt and the pt's son. Upon calling this number, this RN CM was told nor the pt or his son were working today and she was not aware of the pt's status. An alternate number for the pt nor his son were available. Kayleen Julian RN CM
== END 2021-01-18 12:06 | disposition home or self-care (01) ==
PROVIDERS: Emergency Provider Emergency Medicine; PCP Family Medicine
DX: U07.1 COVID-19 (principal); J12.82 Pneumonia due to coronavirus disease 2019; E11.65 Type 2 diabetes mellitus with hyperglycemia; R00.0 Tachycardia, unspecified; J96.01 Acute respiratory failure with hypoxia; I10 Essential (primary) hypertension; E78.5 Hyperlipidemia, unspecified; I25.2 Old myocardial infarction; I34.1 Nonrheumatic mitral (valve) prolapse; I25.10 Atherosclerotic heart disease of native coronary artery without angina pectoris; Z79.82 Long term (current) use of aspirin; Z79.84 Long term (current) use of oral hypoglycemic drugs; Z79.899 Other long term (current) drug therapy; Z87.891 Personal history of nicotine dependence
CPT/HCPCS: 71045; 80053; 83880; 84484; 85025; 87426; 93005; 96374; 99284; A4216

== ENCOUNTER 2021-01-30 09:34 | Inpatient (IN) | payer MEDICARE, OTHER, SELFPAY ==
[2021-01-30] VITALS (9 sets, daily range): BP systolic 131–157; BP diastolic 61–72; PULSE 85–110; RESP 18–30; TEMP 36.8–37.6; O2SAT 87–99; BMI 30.6; BMI 29.5
--- NOTE | 2021-01-30 10:10 | EKG12_ITS ---
Test Reason : SOB Blood Pressure : / mmHG Vent. Rate : 109 BPM Atrial Rate : 109 BPM P-R Int : 194 ms QRS Dur : 086 ms QT Int : 318 ms P-R-T Axes : 049 -09 027 degrees QTc Int : 428 ms Sinus tachycardia Otherwise normal ECG Confirmed by LESVIA BAIN, YONI ([id number]), editorial assistant IRMA CHOU ([id number]) on 02/01/2021 8:42:58 AM Referred By: SHEELA Confirmed By:YONI LAKHANI MD
--- NOTE | 2021-01-30 10:11 | EDS_ITS ---
HPI History of Present Illness Chief Complaint: Shortness of Breath Informant: patient and family Onset/Context/Timing Onset: - (Worsened today) Current Severity: Moderate Maximum Severity: Moderate Narrative Narrative: Patient presents to emergency room secondary to increased shortness of breath. He was diagnosed with Covid approximately 2 weeks ago. He completed a 6-day course of Decadron and had been on 4 L of oxygen at home. Family states his oxygen saturations have been in the mid 90s. Due to increased shortness of breath today EMS was called. They state his oxygen level was 87% on 4 L. Patient denies fever or chills. Very minimal cough. He denies chest pain. [facility] Medical History (Updated 01/30/21 @ 12:[address] Meggan Husain MD) Atherosclerotic heart disease of [place] coronary artery without angina pectoris Diabetes mellitus type II, controlled History of anterior wall myocardial infarction Hyperlipidemia Hypertension Nonrheumatic mitral (valve) prolapse Home Medications antiarthritic combination no.2 900 mg tablet See Rx Instructions PO .q day tab 08/18/17 [History Last Taken Unknown] aspirin 81 mg tablet,delayed release 81 mg PO QDAY 08/18/17 [History Last Taken Unknown] cholecalciferol (vitamin D3) 50 mcg (2,000 unit) tablet 2,000 unit PO QDAY 08/18/17 [History Last Taken Unknown] flurbiprofen 100 mg tablet 100 mg PO BID 08/18/17 [History Last Taken Unknown] glimepiride 4 mg tablet 4 mg PO QAM 08/18/17 [History Last Taken Unknown] metformin 500 mg tablet 500 mg PO BID 08/18/17 [History Last Taken Unknown] multivitamin 1 tab PO QDAY 08/18/17 [History Last Taken Unknown] orphenadrine citrate 100 mg tablet,extended release 100 mg PO .q day tab 08/18/17 [History Last Taken Unknown] nitroglycerin 0.4 mg sublingual tablet 0.4 mg SUBLINGUAL Q5-15M PRN #25 tab 11/04/18 [Rx Last Taken Unknown] atenolol 25 mg tablet 25 mg PO DAILY #90 tab 02/17/20 [Rx Last Taken Unknown] losartan 50 mg tablet 50 mg PO DAILY #90 tab 06/01/20 [Rx Last Taken Unknown] simvastatin 80 mg tablet 80 mg PO QPM #90 tab 09/06/20 [Rx Last Taken Unknown] hydrochlorothiazide 12.5 mg tablet 12.5 mg PO DAILY #90 tab 09/29/20 [Rx Last Taken Unknown] dexamethasone [Decadron] 6 mg PO DAILY #6 tab 01/18/21 [Rx Last Taken Unknown] Allergy/AdvReac Type Severity Reaction Status Date / Time rosuvastatin [From Crestor] Allergy Intermediate Rash Verified 01/30/21 09:40 Family History Father , age 81 CAD (coronary artery disease) History of angioplasty, stent, CABG and valvular heart disease Mother , age 42 Heart disease Brother No problems noted. Sister , age 57 of renal cancer Renal cancer Surgical History Stented coronary artery Social History household members: spouse Smoking Status: Former smoker alcohol intake: current alcohol intake frequency: other substance use type: does not use ROS ROS ED Constitutional Constitutional ED: Denies chills or fever(s) Eyes Eyes: Denies change in vision ENT ENT ED: Denies sore throat Cardiovascular Cardiovascular: Denies chest pain Respiratory/Chest Respiratory/Chest: Reports cough and dyspnea Gastrointestinal Gastrointestinal: Denies abdominal pain, diarrhea, nausea or vomiting Genitourinary Genitourinary ED: Denies dysuria Musculoskeletal Musculoskeletal: Denies back pain Integumentary Denies rash Neurologic Neurologic: Reports weakness; Denies headache(s) Allergic/Immunologic Allergic/Immunologic ED: Denies urticaria EXAM Physical Exam Const Vital Signs: 01/30/21 09:36 01/30/21 11:47 01/30/21 12:08 Temperature 99.2 F H Temperature Source Oral Pulse Rate 110 H 103 H 105 H Respiratory Rate 25 H 30 H 30 H Respiratory Effort Short of Breath Respiratory Pattern Tachypnea Blood Pressure 157/71 H 140/72 H 142/61 H Blood Pressure Mean 99 94 88 Pulse Ox 87 93 94 Oxygen Delivery Method Nasal Cannula Nasal Cannula Nasal Cannula Oxygen Flow Rate (L/min) 4 6 6 Positive well nourished and well developed General Appearance ED: well developed HEENT Reports normocephalic and head/scalp atraumatic Eyes PERRL and EOMs intact bilaterally Neck supple Chest Wall inspection of chest normal and palpation of chest normal Resp Resp Narrative: Tachypnea Auscultation: rales Cardio regular rhythm Rate: tachycardic GI normal to inspection, nondistended, normoactive bowel sounds Palpation: soft Extremity normal to inspection General Extremety ED: Negative for edema General Extremity: Negative for edema Neuro oriented x3 Neuro Narrative: No focal neurologic deficits. Sensorium / Orientation: alert Psych mental status grossly normal Skin no rashes or lesions noted MDM MDM MDM Narrative Medical decision making narrative: Patient was on 6 L nasal cannula at the time of my examination. Lab work, EKG, chest x-ray ordered. Lab Data Attestation: I reviewed the patient's lab results. Labs: Laboratory Results - last 24 hr 01/30/21 01/30/21 01/30/21 09:45 09:45 09:45 WBC 10.6 RBC 4.08 L Hgb 13.7 Hct 39.5 L MCV 96.8 H MCH 33.6 H MCHC 34.7 RDW Std Deviation 44.4 H RDW Coeff of Gem 12.4 Plt Count 231 MPV 9.5 Immature Gran % (Auto) 0.600 Neut % (Auto) 88.1 H Lymph % (Auto) 4.8 L [place] % (Auto) 6.3 Eos % (Auto) 0.0 Baso % (Auto) 0.2 Absolute Neuts (auto) 9.3 H Absolute Lymphs (auto) 0.51 L Nucleated RBC % 0 Differential Comment SCANNED D-Dimer Quant (PE/DVT) 3.72 H* Sodium 135 L Potassium 4.1 Chloride 104 Carbon Dioxide 23.0 Anion Gap 8 BUN 14 Creatinine 1.01 Estim Creat Clear Calc 57.03 Est GFR (MDRD) Af Amer 92 Est GFR (MDRD) Non-Af 76 BUN/Creatinine Ratio 13.9 Glucose 364 H Lactic Acid Calcium 9.0 Total Bilirubin 0.70 AST 22 ALT 30 Alkaline Phosphatase 76 Troponin I High Sens 12 Total Protein 7.8 Albumin 2.1 L Globulin 5.7 H Albumin/Globulin Ratio 0.4 L 01/30/21 09:45 WBC RBC Hgb Hct MCV MCH MCHC RDW Std Deviation RDW Coeff of Gem Plt Count MPV Immature Gran % (Auto) Neut % (Auto) Lymph % (Auto) [place] % (Auto) Eos % (Auto) Baso % (Auto) Absolute Neuts (auto) Absolute Lymphs (auto) Nucleated RBC % Differential Comment D-Dimer Quant (PE/DVT) Sodium Potassium Chloride Carbon Dioxide Anion Gap BUN Creatinine Estim Creat Clear Calc Est GFR (MDRD) Af Amer Est GFR (MDRD) Non-Af BUN/Creatinine Ratio Glucose Lactic Acid 2.0 Calcium Total Bilirubin AST ALT Alkaline Phosphatase Troponin I High Sens Total Protein Albumin Globulin Albumin/Globulin Ratio Radiography Diagnostic Testing: Radiology Impression Chest CTA 01/30/21 10:35 IMPRESSION: 1. No CT evidence of pulmonary embolism. 2. Bilateral subsegmental atelectasis or pneumonitis. Commonly reported imaging features of Covid 19 pneumonia are present. Other processes such as influenza pneumonia and organizing pneumonia from drug toxicity or connective tissue disease can cause a similar imaging pattern. 3. Some denser bibasilar atelectasis or pneumonia. Electronically Signed: Jem Wan MD at 11:49 EDT Tel , Service support , EKG Initial EKG: Attestation: I personally reviewed and interpreted this EKG as follows: Interpretation: Sinus Tachycardia (Sinus tachycardia at 109. No acute ischemia.) Treatment and Re-Evaluation Comments:: Patient's lab work is reviewed. D-dimer is elevated at 3.72. In light of this portable chest x-ray is canceled and patient is sent for CTA of the chest. CTA reveals pneumonitis but no evidence of PE. At this time patient is requiring 6 L nasal cannula and will be admitted to the hospital for further treatment. He has already previously completed a full course of Decadron. Discharge Plan Triage Chief Complaint: Shortness of Breath ED Provider: Meggan Husain Dx/Rx/DC Orders Clinical Impression: Pneumonia due to COVID-19 virus Prescriptions: No Action glimepiride 4 mg tablet 4 mg PO QAM RF: 0 metformin 500 mg tablet 500 mg PO BID RF: 0 cholecalciferol (vitamin D3) 2,000 unit tablet 2,000 unit tablet 2,000 unit PO QDAY RF: 0 aspirin [Adult Aspirin Regimen] 81 mg tablet,delayed release (DR/EC) 81 mg PO QDAY RF: 0 orphenadrine citrate 100 mg tablet extended release 100 mg PO .q day RF: 0 multivitamin tablet 1 tab PO QDAY RF: 0 antiarthritic combination no.2 [glucosamine-chondroitin] 900 mg tablet See Rx Instructions PO .q day RF: 0 flurbiprofen 100 mg tablet 100 mg PO BID RF: 0 nitroglycerin 0.4 mg tablet, sublingual 0.4 mg SUBLINGUAL Q5-15M PRN (Reason: chest pain) Qty: 25 RF: 3 losartan 50 mg tablet 50 mg PO DAILY Qty: 90 RF: 3 dexamethasone [Decadron] 6 mg tablet 6 mg PO DAILY Qty: 6 RF: 0 atenolol 25 mg tablet 25 mg PO DAILY Qty: 90 RF: 4 simvastatin 80 mg tablet 80 mg PO QPM Qty: 90 RF: 3 hydrochlorothiazide 12.5 mg tablet 12.5 mg PO DAILY Qty: 90 RF: 3 Primary Care Provider: César Osorio Referrals: César Osorio MD [Primary Care Provider] - Disposition Disposition: Acute Care Hospital [facility]
[2021-01-30 10:17] LABS: Absolute Lymphocyte Count 0.51 X10^3/uL (0.83-4.51); Absolute Neutrophil Count 9.3 X10^3/uL (2.0-7.7); Basophil# 0.02 X10^3/uL; Basophil% 0.2 % (0-1); Hematocrit 39.5 % (40-54); Hemoglobin 13.7 g/dL (13.0-16.5); Lymphocyte # 0.51 X10^3/ul (0.83-4.51); Lymphocyte % 4.8 % (19-41); Mean Corp Hgb Conc 34.7 g/dL (32-36); Mean Corpuscular Hgb 33.6 pg (27.0-32.0); Mean Corpuscular Volume 96.8 fL (80-94); Mean Platelet Vol. 9.5 fl (6.2-12.0); Monocyte# 0.67 X10^3/uL; Monocyte% 6.3 % (0-10); NRBC Flagged by Analyzer 0 % (0-5); Neutrophil % 88.1 % (47-70); POSITIVE DIFFERENTIAL YES; Platelet Count 231 K/mm3 (150-450); RBC Distribution Width CV 12.4 % (11.6-14.6); RBC Distribution Width SD 44.4 fl (35.1-43.9); Red Blood Count 4.08 M/mm3 (4.6-6.2); White Blood Count 10.6 K/mm3 (4.4-11.0)
[2021-01-30 10:21] LABS: Differential Indicated SCAN CRITERIA MET
[2021-01-30 10:27] LABS: D-Dimer Quantitative (DVT/PE) 3.72 FEU/ug/m (0.27-0.49)
[2021-01-30 10:31] LABS: ALB/GLOB Ratio 0.4 RATIO (0.9-2.4); AST(SGOT) 22 U/L (15-37); Alanine Aminotransfer ALT/SGPT 30 U/L (16-61); Albumin, Serum 2.1 g/dL (3.2-5.0); Alkaline Phosphatase 76 U/L (45-117); Anion Gap 8 (5-15); BUN 14 mg/dL (7-18); BUN/Creat Ratio 13.9 RATIO (10-20); Chloride 104 mmol/L (98-107); Creatinine, Serum 1.01 mg/dL (0.70-1.30); EST Glomerular Filtration Rate 76 mL/min (>60); Est Glom Filt Rate - Afr Amer 92 mL/min (>60); Estimated Creatinine Clearance 57.03 ml/min; Globulin 5.7 g/dL (2.2-4.2); Glucose 364 mg/dL (74-106); Potassium 4.1 mmol/L (3.5-5.1); Protein, Total 7.8 g/dL (6.4-8.2); Sodium Level 135 mmol/L (136-145); Troponin-I HS 12 pg/mL (3.0-78.0)
--- NOTE | 2021-01-30 10:35 | CT_ITS ---
STUDY: CTA CHEST REASON FOR EXAM: Male, 75 years old. sob RADIATION DOSAGE (If Supplied By Facility): CTDIvol = ( 12.55 ) mGy, DLP = ( 411.79 ) mGycm TECHNIQUE: The examination was performed with the intravenous administration of IV 100mL Isovue-370. Post-processing of the angiographic images was performed, with multiplanar reformation and 3D reconstruction. Individualized dose optimization techniques were used for this CT. COMPARISON: Chest x-ray 01/18/2021 FINDINGS: Normal enhancement of the main pulmonary artery and right and left pulmonary arteries. Normal enhancement of the bilateral peripheral pulmonary arteries. There is no demonstrated pulmonary embolism. Normal thoracic aorta and visualized great vessels. There is no demonstrated aortic dissection. Normal heart and pericardium. There are calcifications of the coronary arteries. Several prominent mediastinal lymph nodes which are likely reactive. Normal hilar regions. Normal visualized trachea and bronchi. The lungs are well expanded. Bilateral patchy peripheral groundglass opacities consistent with subsegmental atelectasis or pneumonitis. Alveolar density in the dependent portion of both lungs consistent with bibasilar atelectasis or pneumonia. Normal pleura. Normal chest wall structures. Normal osseous structures. Normal visualized upper abdomen. CT/CTA Chest W/WO Contrast IMPRESSION: 1. No CT evidence of pulmonary embolism. 2. Bilateral subsegmental atelectasis or pneumonitis. Commonly reported imaging features of Covid 19 pneumonia are present. Other processes such as influenza pneumonia and organizing pneumonia from drug toxicity or connective tissue disease can cause a similar imaging pattern. 3. Some denser bibasilar atelectasis or pneumonia. Electronically Signed: Jem Wan MD at 11:49 EDT Tel , Service support ,
[2021-01-30 10:49] LABS: Differential Comment SCANNED
[2021-01-30] MEDS: Acetaminophen 500 MG Tablet 1000 MG PO (11:43)
--- NOTE | 2021-01-30 12:45 | HP.PCM.HOS_ITS ---
HPI - General General Date of Admission: 01/30/21 HPI Narrative ESTELLA CANO, is a 75 M who presents with a history of Covid diagnosed 2 weeks ago. He was sent home from the ER and was generally doing well on 4 L of oxygen nasal cannula. He took 6 days of Decadron however this morning he was found to be 95% and the family checked him again he was in the low to mid 80s on his 4 L. He was also experiencing increase shortness of breath today. Unfortunately he is out of the window for remdesivir, and baricitinib. In the ER lab work was unremarkable, he was tachycardic but afebrile but is a little tachypneic. CTA of the chest was negative for PEs and did not show any consolidation just showed atelectasis. [facility] Medical History (Updated 01/30/21 @ 12:[address] Thierno Caal MD) Atherosclerotic heart disease of [place] coronary artery without angina pectoris Diabetes mellitus type II, controlled History of anterior wall myocardial infarction Hyperlipidemia Hypertension Nonrheumatic mitral (valve) prolapse Home Medications antiarthritic combination no.2 900 mg tablet See Rx Instructions PO .q day tab 08/18/17 [History Last Taken Unknown] aspirin 81 mg tablet,delayed release 81 mg PO QDAY 08/18/17 [History Last Taken Unknown] cholecalciferol (vitamin D3) 50 mcg (2,000 unit) tablet 2,000 unit PO QDAY 08/18/17 [History Last Taken Unknown] metformin 500 mg tablet 500 mg PO BID 08/18/17 [History Last Taken Unknown] multivitamin 1 tab PO QDAY 08/18/17 [History Last Taken Unknown] nitroglycerin 0.4 mg sublingual tablet 0.4 mg SUBLINGUAL Q5-15M PRN #25 tab 12/16 [Rx Last Taken Unknown] atenolol 25 mg tablet 25 mg PO DAILY #90 tab 02/17/20 [Rx Last Taken Unknown] losartan 50 mg tablet 50 mg PO DAILY #90 tab 06/01/20 [Rx Last Taken Unknown] hydrochlorothiazide 12.5 mg tablet 12.5 mg PO DAILY #90 tab 09/29/20 [Rx Last Taken Unknown] baclofen 20 mg PO QHS 01/30/21 [History Last Taken Unknown] tamsulosin 0.4 mg PO QHS 01/30/21 [History Last Taken Unknown] Allergy/AdvReac Type Severity Reaction Status Date / Time rosuvastatin [From Crestor] Allergy Intermediate Rash Verified 01/30/21 09:40 Family History Father , age 81 CAD (coronary artery disease) History of angioplasty, stent, CABG and valvular heart disease Mother , age 42 Heart disease Brother No problems noted. Sister , age 57 of renal cancer Renal cancer Surgical History Stented coronary artery Social History household members: spouse Smoking Status: Former smoker alcohol intake: current alcohol intake frequency: other substance use type: does not use ROS Constitutional Constitutional: Denies chills, fatigue, fever(s) or malaise Eyes Eyes: Denies blurry vision ENT HEENT: Denies headache(s) or nasal discharge Cardiovascular Cardiovascular: Denies chest pain, dyspnea on exertion or syncope Respiratory/Chest Respiratory/Chest: Reports cough and shortness of breath at rest; Denies shortness of breath with exertion Gastrointestinal Gastrointestinal: Denies constipation, diarrhea, nausea or vomiting Genitourinary Genitourinary: Denies dysuria Neurologic Neurologic: Denies focal weakness, numbness or tremor(s) Psychiatric Psychiatric: Denies anxiety or depression Vital Signs Vital Signs Vital Signs: 01/30/21 09:36 01/30/21 11:47 01/30/21 12:08 Temperature 99.2 F H Temperature Source Oral Pulse Rate 110 H 103 H 105 H Respiratory Rate 25 H 30 H 30 H Respiratory Effort Short of Breath Respiratory Pattern Tachypnea Blood Pressure 157/71 H 140/72 H 142/61 H Blood Pressure Mean 99 94 88 Pulse Ox 87 93 94 Oxygen Delivery Method Nasal Cannula Nasal Cannula Nasal Cannula Oxygen Flow Rate (L/min) 4 6 6 Weight Weight: 189 lb 13.088 oz Body Mass Index (BMI) 30.6 Physical Exam Const alert, oriented x3 and no apparent distress General Appearance: cooperative HEENT normocephalic and moist oral mucous membranes Eyes PERRL, EOMs intact bilaterally and conjunctivae normal Neck supple and no JVD Resp normal respiratory effort, no retractions and no use of accessory muscles Effort and Inspection: tachypneic Auscultation: rhonchi, wheezes and diminished lung sounds; Negative for crackles or rales Cardio regular rate, regular rhythm, S1 normal heart sound, S2 normal heart sound and no murmurs GI soft to palpation, non-tender and non-distended; Negative for hepatosplenomegaly Extremity no clubbing, cyanosis or edema Skin no rashes or lesions noted Neuro no focal motor deficits and no sensory deficits noted Psych affect normal Appearance: appropriate Results Lab / Micro Data Result Diagrams: 01/30/21 09:45 01/30/21 09:45 Labs: Laboratory Results - last 24 hr 01/30/21 09:45: WBC 10.6, RBC 4.08 L, Hgb 13.7, Hct 39.5 L, MCV 96.8 H, MCH 33.6 H, MCHC 34.7, RDW Std Deviation 44.4 H, RDW Coeff of Gem 12.4, Plt Count 231, MPV 9.5, Immature Gran % (Auto) 0.600, Neut % (Auto) 88.1 H, Lymph % (Auto) 4.8 L, [place] % (Auto) 6.3, Eos % (Auto) 0.0, Baso % (Auto) 0.2, Absolute Neuts (auto) 9.3 H, Absolute Lymphs (auto) 0.51 L, Nucleated RBC % 0, Differential Comment SCANNED 01/30/21 09:45: D-Dimer Quant (PE/DVT) 3.72 H* 01/30/21 09:45: Sodium 135 L, Potassium 4.1, Chloride 104, Carbon Dioxide 23.0, Anion Gap 8, BUN 14, Creatinine 1.01, Estim Creat Clear Calc 57.03, Est GFR (MDRD) Af Amer 92, Est GFR (MDRD) Non-Af 76, BUN/Creatinine Ratio 13.9, Glucose 364 H, Calcium 9.0, Total Bilirubin 0.70, AST 22, ALT 30, Alkaline Phosphatase 76, Troponin I High Sens 12, Total Protein 7.8, Albumin 2.1 L, Globulin 5.7 H, Albumin/Globulin Ratio 0.4 L 01/30/21 09:45: Lactic Acid 2.0 Radiology Impression Chest CTA 01/30/21 10:35 IMPRESSION: 1. No CT evidence of pulmonary embolism. 2. Bilateral subsegmental atelectasis or pneumonitis. Commonly reported imaging features of Covid 19 pneumonia are present. Other processes such as influenza pneumonia and organizing pneumonia from drug toxicity or connective tissue disease can cause a similar imaging pattern. 3. Some denser bibasilar atelectasis or pneumonia. Electronically Signed: Jem Wan MD at 11:49 EDT Tel , Service support , Assessment & Plan Assessment/Plan (1) Acute and chronic respiratory failure with hypoxia: (2) Pneumonia due to COVID-19 virus: PLAN: 1. Acute on chronic hypoxic respiratory failure secondary to COVID-19 pneumonia -Symptoms started on 01/13/2021, currently has rhonchi on exam that clears with coughing, with increasing oxygen requirements -We will obtain a sputum culture and give him a dose of Lasix today -If no significant improvement in a day or 2 may need to initiate antibiotics while sputum cultures pending -Does not meet for remdesivir or baricitinib, he did receive a course of Decadron when he was first diagnosed 2. HTN/HLD -Blood pressure stable -We will continue with his home blood pressure medications -Continue with statin 3. DM2 -We will hold his home medication -we will place him on a long-acting insulin as well as sliding scale insulin -Accu-Cheks AC at bedtime, will adjust insulin as necessary DVT: Lovenox Charges/Coding Visit Charges Inpatient E&M: 28684 Init Hosp L3
[2021-01-30 14:12] LABS: Reflex Lactate? Y
[2021-01-30 15:06] LABS: Lactic Acid 1.6 mmol/L (0.4-1.9)
--- NOTE | 2021-01-30 15:17 | NURSING ---
Bladder scanned for 412 prior to lasix Iv x1 dose order, Pt up to bathroom, voided/unmeasured and then bladder scanned again. Post void bladder scan is 281ml. Will continue to monitor.
[2021-01-30] MEDS: Furosemide 40 MG/4 ML Vial IV (16:38)
[2021-01-30] MEDS: 0.9% Saline Lock 10 ML Syringe IV (16:41)
[2021-01-30] MEDS: Insulin Lispro 100 UNIT/ML INSULN.PEN SC ×2 (16:49→20:52)
[2021-01-30 19:26] LABS: Bedside Glucose 300 mg/dL (70-110)
[2021-01-30] MEDS: Ibuprofen 600 MG Tablet PO (20:54)
[2021-01-30] MEDS: Simvastatin 20 MG Tablet 80 MG PO (20:54)
[2021-01-30] MEDS: Acetaminophen 325 MG Tablet 650 MG PO (20:59)
[2021-01-30 22:00] LABS: Bedside Glucose 358 mg/dL (70-110)
--- NOTE | 2021-01-30 22:56 | PCS.PANDOC ---
PANDEMIC DOCUMENTATION INITIATED: Date: 12/13/2020 Time: 190
[2021-01-31] VITALS (8 sets, daily range): BP systolic 114–144; BP diastolic 56–63; PULSE 60–74; RESP 18–20; TEMP 35.8–36.8; O2SAT 94–96
[2021-01-31] MEDS: Insulin Lispro 100 UNIT/ML INSULN.PEN SC ×4 (03:31→21:33)
[2021-01-31 03:41] LABS: Bedside Glucose 323 mg/dL (70-110)
[2021-01-31 07:14] LABS: Absolute Lymphocyte Count 0.98 X10^3/uL (0.83-4.51); Absolute Neutrophil Count 4.1 X10^3/uL (2.0-7.7); Basophil# 0.04 X10^3/uL; Basophil% 0.7 % (0-1); Eosinophil# 0.07 X10^3/uL; Eosinophils% 1.2 % (0-5); Hematocrit 38.4 % (40-54); Hemoglobin 12.8 g/dL (13.0-16.5); Lymphocyte # 0.98 X10^3/ul (0.83-4.51); Lymphocyte % 16.9 % (19-41); Mean Corp Hgb Conc 33.3 g/dL (32-36); Mean Corpuscular Hgb 33.5 pg (27.0-32.0); Mean Corpuscular Volume 100.5 fL (80-94); Mean Platelet Vol. 9.4 fl (6.2-12.0); Monocyte# 0.55 X10^3/uL; Monocyte% 9.5 % (0-10); NRBC Flagged by Analyzer 0 % (0-5); Neutrophil # 4.13 X10^3/uL (2.7-7.7); Neutrophil % 71.2 % (47-70); Platelet Count 219 K/mm3 (150-450); RBC Distribution Width CV 12.7 % (11.6-14.6); Red Blood Count 3.82 M/mm3 (4.6-6.2); White Blood Count 5.8 K/mm3 (4.4-11.0)
[2021-01-31 07:34] LABS: Anion Gap 6 (5-15); BUN 23 mg/dL (7-18); BUN/Creat Ratio 20.7 RATIO (10-20); Calcium,Total 8.9 mg/dL (8.5-10.1); Chloride 107 mmol/L (98-107); Creatinine, Serum 1.11 mg/dL (0.70-1.30); EST Glomerular Filtration Rate 69 mL/min (>60); Est Glom Filt Rate - Afr Amer 83 mL/min (>60); Estimated Creatinine Clearance 51.89 ml/min; Glucose 286 mg/dL (74-106); Potassium 3.7 mmol/L (3.5-5.1); Sodium Level 139 mmol/L (136-145)
[2021-01-31] MEDS: Aspirin E.C. 81 MG Tablet PO (08:36)
[2021-01-31] MEDS: Atenolol 25 MG Tablet PO (08:36)
[2021-01-31] MEDS: Enoxaparin 40 MG/0.4 ML Syringe SC (08:36)
[2021-01-31] MEDS: Losartan Potassium 50 MG Tablet PO (08:36)
[2021-01-31] MEDS: Ibuprofen 600 MG Tablet PO ×2 (08:36→21:32)
[2021-01-31] MEDS: hydroCHLOROthiazide 12.5mg 12.5 MG PO (08:37)
[2021-01-31] MEDS: Orphenadrine 100 MG Tablet PO (08:37)
--- NOTE | 2021-01-31 11:15 | CASEMGMT ---
LEONEL NEVILLE Assessment: Face to Face with pt for initial transition planning/care coordination assessment. LEONEL NEVILLE introduced self and role at [facility], pt voices understanding and consents to assessment. Pt is A/O x4 and answers all questions appropriately at this time. Pt sitting up in bed with O2 on in no distress. Care providers, pharmacy, and demographics verified/updated. Admitting Dx: COVID PCP: Devon Specialists: Alec, cardio Preferred [facility]acy: [facility] Insurance: [employer] Prescription Benefit: No LW/HPOA: Pt states he does have a LW/DPOA. His DPOA is his Tejal Galvan. LNOK: Tejal Galvan, ; Adelaida Galvan, son; Gilberto Galvan, son Living Arrangements: Pt lives with in a two story house with 7 steps to enter with a rail. Pt reports he does not use the upstairs. Pt states he is I in ADL's and denies concerns at home. 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 DME/HHC/SNF: Pt has O2 through [employer] at 2L continuous. Pt has a CPAP at home that he states he does wear. Pt states he is not aware if his O2 is bled through his CPAP. Pt has a BGM with lancets and strips and checks his blood sugar before bed nightly. Pt denies having any previous HHC or SNF stays. Pt reports he was first tested for COVID at [facility]. He is able to quarantine at home and has family who can provide him with groceries and supplies. 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 Denies any alcohol or drug use. Pt states no concerns with going home at time of dc. Pt states no further concerns/needs. CM to follow. Advised pt to ask CM if any further question/concerns/needs arise, voices understanding. Pt Goal: Home Plan: Home, will monitor for change in O2 script- Pt will need an order to have O2 bled through CPAP. TC to [employer], spoke with Michelle. She states pt liter flow is 2L continuous. She was not aware that pt has CPAP. She states the O2 is not ordered to bleed through. She states pt does not have electricity and they are providing him with a jumbo tank and conserver.
[2021-01-31 11:50] LABS: Bedside Glucose 316 mg/dL (70-110)
--- NOTE | 2021-01-31 14:48 | PN.HOSP_ITS ---
Subjective Subjective Patient seen and examined. He says he feels much better and his breathing has improved. He denies cough, chest pain, palpitations, dizziness, nausea or vomiting. Review of systems otherwise negative. Objective Data Objective Data Vital Signs: Vital Signs Temp Pulse Resp BP Pulse Ox 97.8 F 73 18 124/62 H 94 01/31/21 13:30 01/31/21 13:30 01/31/21 13:30 01/31/21 13:30 01/31/21 13:30 Oxygen Flow Rate (L/min) 6 Oxygen Delivery Method Nasal Cannula Weight: 182 lb 12.211 oz Body Mass Index (BMI) 29.5 Intake & Output: Intake and Output for Last 24 Hours 01/29/21 01/30/21 01/31/21 23:59 23:59 23:59 Intake Total 240 / 240 1000 / 1000 Output Total 300 / 300 Balance 240 / 240 700 / 700 Medical Nutrition Assessment Dietitian: Malnutrition Criteria Met Start: 01/31/21 11:49 Freq: Status: Active Protocol: Document 01/31/21 11:49 AYAN (Rec: 01/31/21 11:49 SLA [id number]) Nutrition Malnutrition Evidence of Malnutrition Exists Yes Evidenced By Suboptimal Energy Intake ( Severe),Weight Loss (Severe) Clinical Problem Acute Disease or Injury Related Malnutrition Etiology related to acute illness / COVID and not being able to consume adequate nutrition to meet pt est nutritional needs Signs/Symptoms as evidenced by 8.9% wt loss and <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 Problem Recommendation Dietitian Recommendations/Changes Will continue diet as ordered Will provide 120 ml glucerna shake w/ meals Lab / Micro Data Result Diagrams: 01/31/21 06:46 01/31/21 06:46 Labs: Laboratory Results - last 24 hr 01/30/21 14:25: Lactic Acid 1.6 01/30/21 16:36: POC Glucose 300 H 01/30/21 20:51: POC Glucose 358 H 01/31/21 03:30: POC Glucose 323 H 01/31/21 06:46: WBC 5.8, RBC 3.82 L, Hgb 12.8 L, Hct 38.4 L, MCV 100.5 H, MCH 33.5 H, MCHC 33.3, RDW Std Deviation 47.0 H, RDW Coeff of Gem 12.7, Plt Count 219, MPV 9.4, Immature Gran % (Auto) 0.500, Neut % (Auto) 71.2 H, Lymph % (Auto) 16.9 L, [place] % (Auto) 9.5, Eos % (Auto) 1.2, Baso % (Auto) 0.7, Absolute Neuts (auto) 4.1, Absolute Lymphs (auto) 0.98, Nucleated RBC % 0 01/31/21 06:46: Sodium 139, Potassium 3.7, Chloride 107, Carbon Dioxide 26.0, Anion Gap 6, BUN 23 H, Creatinine 1.11, Estim Creat Clear Calc 51.89, Est GFR (MDRD) Af Amer 83, Est GFR (MDRD) Non-Af 69, BUN/Creatinine Ratio 20.7 H, Glucose 286 H, Calcium 8.9 01/31/21 11:31: POC Glucose 316 H Physical Exam Const alert, oriented x3 and no apparent distress Exam Limitations: no limitations HEENT head/scalp atraumatic and moist oral mucous membranes Head and Scalp: normocephalic Eyes PERRL, EOMs intact bilaterally and conjunctivae normal Neck no lymphadenopathy Resp Resp Narrative: diminished breath sounds bibasally, no wheezes or crackles. On 6L of oxygen. Cardio regular rate, regular rhythm, S1 normal heart sound and S2 normal heart sound GI normal to inspection, nondistended, normoactive bowel sounds, soft to palpation, non-tender and non-distended Extremity normal to inspection, full ROM and no clubbing, cyanosis or edema Peripheral Pulses: Yes pulses 2+ throughout Skin no rashes or lesions noted Neuro oriented x3, CN's II-XII intact bilaterally and moves all extremities Sensorium / Orientation: awake and alert Psych affect normal Assessment & Plan Assessment/Plan (1) Acute and chronic respiratory failure with hypoxia: (2) Pneumonia due to COVID-19 virus: PLAN: #Acute on chronic hypoxic respiratory failure due to COVID 19 pneumonia * symptoms started on 01/13/2021. * out of window for remdesivir and baricitinib. * on decadron * #Hypertension: on HCTZ and losartan as well atenolol #Hyperlipidemia: on statin #DM2 * onlantus 10 units daily. ISS * Accuchecks ACHS. DVT prophylaxis: on lovenox Charges/Coding Visit Charges Inpatient E&M: 56601 Subs Hosp L3
[2021-01-31 21:20] LABS: Bedside Glucose 361 mg/dL (70-110)
[2021-01-31] MEDS: Simvastatin 20 MG Tablet 80 MG PO (21:36)
[2021-01-31 21:45] LABS: Bedside Glucose 330 mg/dL (70-110)
[2021-02-01] VITALS (8 sets, daily range): BP systolic 114–133; BP diastolic 49–62; PULSE 60–77; RESP 18–20; TEMP 36.6–36.9; O2SAT 91–96
[2021-02-01] MEDS: Insulin Lispro 100 UNIT/ML INSULN.PEN SC ×4 (06:29→21:31)
[2021-02-01 06:34] LABS: Absolute Lymphocyte Count 1.39 X10^3/uL (0.83-4.51); Absolute Neutrophil Count 4.3 X10^3/uL (2.0-7.7); Basophil# 0.03 X10^3/uL; Basophil% 0.5 % (0-1); Eosinophil# 0.09 X10^3/uL; Eosinophils% 1.4 % (0-5); Hematocrit 39.1 % (40-54); Hemoglobin 13.4 g/dL (13.0-16.5); Lymphocyte # 1.39 X10^3/ul (0.83-4.51); Lymphocyte % 21.6 % (19-41); Mean Corp Hgb Conc 34.3 g/dL (32-36); Mean Corpuscular Hgb 33.6 pg (27.0-32.0); Mean Platelet Vol. 9.5 fl (6.2-12.0); Monocyte# 0.65 X10^3/uL; Monocyte% 10.1 % (0-10); NRBC Flagged by Analyzer 0 % (0-5); Neutrophil # 4.25 X10^3/uL (2.7-7.7); Neutrophil % 65.9 % (47-70); Platelet Count 233 K/mm3 (150-450); RBC Distribution Width CV 12.7 % (11.6-14.6); Red Blood Count 3.99 M/mm3 (4.6-6.2); White Blood Count 6.4 K/mm3 (4.4-11.0)
[2021-02-01 06:50] LABS: Bedside Glucose 295 mg/dL (70-110)
[2021-02-01 06:50] LABS: Anion Gap 8 (5-15); BUN 23 mg/dL (7-18); Calcium,Total 8.9 mg/dL (8.5-10.1); Chloride 105 mmol/L (98-107); Creatinine, Serum 0.92 mg/dL (0.70-1.30); EST Glomerular Filtration Rate 85 mL/min (>60); Est Glom Filt Rate - Afr Amer 103 mL/min (>60); Estimated Creatinine Clearance 62.61 ml/min; Glucose 308 mg/dL (74-106); Potassium 4.1 mmol/L (3.5-5.1); Sodium Level 136 mmol/L (136-145)
--- NOTE | 2021-02-01 07:40 | PN.HOSP_ITS ---
Subjective Subjective Patient seen and examined. He is feeling better today, and his shortness of breath has improved. REview of systems is otherwise negative. He is on 6L of oxygen today. Objective Data Objective Data Vital Signs: Vital Signs Temp Pulse Resp BP Pulse Ox 98.4 F 60 18 114/49 L 94 02/01/21 02:11 02/01/21 02:11 02/01/21 02:19 02/01/21 02:11 02/01/21 02:11 Oxygen Flow Rate (L/min) 6 Oxygen Delivery Method Nasal Cannula Weight: 182 lb 12.211 oz Body Mass Index (BMI) 29.5 Intake & Output: Intake and Output for Last 24 Hours 01/30/21 01/31/21 02/01/21 23:59 23:59 23:59 Intake Total 240 / 240 2200 / 2200 Output Total 1000 / 1000 Balance 240 / 240 1200 / 1200 Medical Nutrition Assessment Dietitian: Malnutrition Criteria Met Start: 01/31/21 11:49 Freq: Status: Active Protocol: Document 01/31/21 11:49 AYAN (Rec: 01/31/21 11:49 AYAN [id number]) Nutrition Malnutrition Evidence of Malnutrition Exists Yes Evidenced By Suboptimal Energy Intake ( Severe),Weight Loss (Severe) Clinical Problem Acute Disease or Injury Related Malnutrition Etiology related to acute illness / COVID and not being able to consume adequate nutrition to meet pt est nutritional needs Signs/Symptoms as evidenced by 8.9% wt loss and <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 Problem Recommendation Dietitian Recommendations/Changes Will continue diet as ordered Will provide 120 ml glucerna shake w/ meals Lab / Micro Data Result Diagrams: 02/01/21 06:16 02/01/21 06:16 Labs: Laboratory Results - last 24 hr 01/31/21 11:31: POC Glucose 316 H 01/31/21 16:42: POC Glucose 361 H 01/31/21 21:31: POC Glucose 330 H 02/01/21 06:16: WBC 6.4, RBC 3.99 L, Hgb 13.4, Hct 39.1 L, MCV 98.0 H, MCH 33.6 H, MCHC 34.3, RDW Std Deviation 46.0 H, RDW Coeff of Gem 12.7, Plt Count 233, MPV 9.5, Immature Gran % (Auto) 0.500, Neut % (Auto) 65.9, Lymph % (Auto) 21.6, [place] % (Auto) 10.1 H, Eos % (Auto) 1.4, Baso % (Auto) 0.5, Absolute Neuts (auto) 4.3, Absolute Lymphs (auto) 1.39, Nucleated RBC % 0 02/01/21 06:16: Sodium 136, Potassium 4.1, Chloride 105, Carbon Dioxide 23.0, Anion Gap 8, BUN 23 H, Creatinine 0.92, Estim Creat Clear Calc 62.61, Est GFR (MDRD) Af Amer 103, Est GFR (MDRD) Non-Af 85, BUN/Creatinine Ratio 25.0 H, Glucose 308 H, Calcium 8.9 02/01/21 06:27: POC Glucose 295 H Physical Exam Const alert, oriented x3 and no apparent distress General Appearance: cooperative Exam Limitations: no limitations HEENT normocephalic, head/scalp atraumatic and moist oral mucous membranes Head and Scalp: normocephalic Eyes PERRL, EOMs intact bilaterally and conjunctivae normal Neck no lymphadenopathy, supple and no JVD Resp normal respiratory effort, no retractions and no use of accessory muscles Resp Narrative: diminished breath sounds bibasally, no wheezes or crackles. On 6L of oxygen. Effort and Inspection: tachypneic Auscultation: diminished lung sounds; Negative for crackles or rales Cardio regular rate, regular rhythm, S1 normal heart sound, S2 normal heart sound and no murmurs GI normal to inspection, nondistended, normoactive bowel sounds, soft to palpation, non-tender and non-distended; Negative for hepatosplenomegaly Extremity normal to inspection, full ROM and no clubbing, cyanosis or edema Skin no rashes or lesions noted Neuro oriented x3, CN's II-XII intact bilaterally, moves all extremities, no focal motor deficits and no sensory deficits noted Sensorium / Orientation: awake and alert Psych affect normal Appearance: appropriate Assessment & Plan Assessment/Plan (1) Acute and chronic respiratory failure with hypoxia: (2) Pneumonia due to COVID-19 virus: PLAN: #Acute on chronic hypoxic respiratory failure due to COVID 19 pneumonia * symptoms started on 01/13/2021. * out of window for remdesivir and baricitinib. * on decadron * on 6L of oxygen today. Titrate oxygen to maintain sats >90% * breathing treatment with bronchodilators * #Hypertension: on HCTZ and losartan as well atenolol #Hyperlipidemia: on statin #DM2 * on lantus 10 units daily. ISS * Accuchecks ACHS. DVT prophylaxis: on lovenox Disposition: anticipate discharge in the next 24-48 hours. Charges/Coding Visit Charges Inpatient E&M: 44365 Subs Hosp L2
[2021-02-01] MEDS: Aspirin E.C. 81 MG Tablet PO (09:34)
[2021-02-01] MEDS: hydroCHLOROthiazide 12.5mg 12.5 MG PO (09:34)
[2021-02-01] MEDS: Losartan Potassium 50 MG Tablet PO (09:34)
[2021-02-01] MEDS: Atenolol 25 MG Tablet PO (09:35)
[2021-02-01] MEDS: Orphenadrine 100 MG Tablet PO (09:35)
[2021-02-01] MEDS: Ibuprofen 600 MG Tablet PO ×2 (09:35→21:30)
[2021-02-01] MEDS: Enoxaparin 40 MG/0.4 ML Syringe SC (09:35)
[2021-02-01 11:25] LABS: Bedside Glucose 383 mg/dL (70-110)
[2021-02-01 18:50] LABS: Bedside Glucose 327 mg/dL (70-110)
[2021-02-01] MEDS: Simvastatin 20 MG Tablet 80 MG PO (21:30)
[2021-02-01 21:46] LABS: Bedside Glucose 208 mg/dL (70-110)
[2021-02-02] VITALS (7 sets, daily range): BP systolic 121–142; BP diastolic 63–68; PULSE 61–102; RESP 16–24; TEMP 36.7–36.9; O2SAT 2–96
[2021-02-02] MEDS: Insulin Lispro 100 UNIT/ML INSULN.PEN SC ×3 (06:43→16:41)
[2021-02-02 06:55] LABS: Bedside Glucose 248 mg/dL (70-110)
[2021-02-02 07:46] LABS: Absolute Lymphocyte Count 0.99 X10^3/uL (0.83-4.51); Basophil# 0.04 X10^3/uL; Basophil% 0.7 % (0-1); Eosinophil# 0.06 X10^3/uL; Eosinophils% 1.1 % (0-5); Hematocrit 37.6 % (40-54); Hemoglobin 13.1 g/dL (13.0-16.5); Lymphocyte # 0.99 X10^3/ul (0.83-4.51); Lymphocyte % 17.5 % (19-41); Mean Corp Hgb Conc 34.8 g/dL (32-36); Mean Corpuscular Hgb 33.8 pg (27.0-32.0); Mean Corpuscular Volume 96.9 fL (80-94); Mean Platelet Vol. 9.3 fl (6.2-12.0); Monocyte# 0.59 X10^3/uL; Monocyte% 10.4 % (0-10); NRBC Flagged by Analyzer 0 % (0-5); Neutrophil # 3.97 X10^3/uL (2.7-7.7); Neutrophil % 69.9 % (47-70); Platelet Count 239 K/mm3 (150-450); RBC Distribution Width CV 12.6 % (11.6-14.6); Red Blood Count 3.88 M/mm3 (4.6-6.2); White Blood Count 5.7 K/mm3 (4.4-11.0)
[2021-02-02 08:28] LABS: Anion Gap 7 (5-15); BUN 18 mg/dL (7-18); BUN/Creat Ratio 19.7 RATIO (10-20); Chloride 103 mmol/L (98-107); Creatinine, Serum 0.92 mg/dL (0.70-1.30); EST Glomerular Filtration Rate 86 mL/min (>60); Est Glom Filt Rate - Afr Amer 103 mL/min (>60); Estimated Creatinine Clearance 62.61 ml/min; Glucose 279 mg/dL (74-106); Potassium 4.3 mmol/L (3.5-5.1); Sodium Level 136 mmol/L (136-145)
[2021-02-02] MEDS: Enoxaparin 40 MG/0.4 ML Syringe SC (09:14)
[2021-02-02] MEDS: hydroCHLOROthiazide 12.5mg 12.5 MG PO (09:15)
[2021-02-02] MEDS: Losartan Potassium 50 MG Tablet PO (09:15)
[2021-02-02] MEDS: Ibuprofen 600 MG Tablet PO (09:15)
[2021-02-02] MEDS: Atenolol 25 MG Tablet PO (09:15)
[2021-02-02] MEDS: Aspirin E.C. 81 MG Tablet PO (09:15)
[2021-02-02] MEDS: Orphenadrine 100 MG Tablet PO (09:15)
[2021-02-02 11:15] LABS: Bedside Glucose 333 mg/dL (70-110)
--- NOTE | 2021-02-02 12:59 | CASEMGMT ---
TC to Padma at [facility] [place] to make aware that pt requires a higher O2 script, pt will need an adaptor to have O2 bled into CPAP and that pt does not have electricity. Faxed referral at this time with this info on the face sheet as well. Spoke with nurse Natalie to make aware that pt has portable tanks at home and he will need to bring in to go home with.
--- NOTE | 2021-02-02 14:28 | DS.PCM_ITS ---
Providers Date of Admission: 01/30/21 Primary Care Physician: Dr. César Osorio MD Reason For Visit: COVID Diagnosis Discharge Diagnosis (1) Acute and chronic respiratory failure with hypoxia: Status: Chronic Code(s): J96.21 - Acute and chronic respiratory failure with hypoxia (2) Pneumonia due to COVID-19 virus: Status: Acute Code(s): U07.1 - COVID-19; J12.82 - Pneumonia due to coronavirus disease 2019 Medications at Discharge Home Medications antiarthritic combination no.2 900 mg tablet See Rx Instructions PO .q day tab 08/18/17 aspirin 81 mg tablet,delayed release 162 mg PO QDAY 08/18/17 cholecalciferol (vitamin D3) 50 mcg (2,000 unit) tablet 2,000 unit PO QDAY 08/18/17 metformin 500 mg tablet 1,000 mg PO BID 08/18/17 multivitamin 1 tab PO QDAY 08/18/17 nitroglycerin 0.4 mg sublingual tablet 0.4 mg SUBLINGUAL Q5-15M PRN #25 tab 11/04/18 atenolol 25 mg tablet 25 mg PO DAILY #90 tab 02/17/20 losartan 50 mg tablet 50 mg PO DAILY #90 tab 06/01/20 hydrochlorothiazide 12.5 mg tablet 12.5 mg PO DAILY #90 tab 09/29/20 baclofen 20 mg PO QHS 01/30/21 tamsulosin 0.4 mg PO QHS 01/30/21 Hospital Course Operations None Procedures None Summary of Care Provided Minutes Spent on Discharge: 45 Hospital Course: Patient is a 75-year-old male with a past medical history as outlined which includes, hypertension, hyperlipidemia and type 2 diabetes me llitus who was admitted through the ED on 01/30/2021 with a complaint of worsening shortness of breath. Patient had been diagnosed with Covid 2 weeks prior to admission and was sent home from the ER on 4 L of oxygen and had been doing well. He had been on Decadron for 6 days. On the morning of admission, family found him to be hypoxic in the low to mid 80s on his 4 L of oxygen with worsening shortness of breath so he was brought into the ED. He was out of window for remdesivir on baricitinib. CT of the chest was negative for PE and showed bilateral atelectasis. He was admitted and managed for acute on chronic hypoxic respiratory failure due to COVID-19 infection. He was also given Lasix as needed to help maintain euvolemic status. Patient was gradually weaned down on his oxygen and gradually felt better. His walking pulse ox showed that he required 4 L of oxygen on 02/02/2021. Patient remained stable and was discharged on 02/02/2021 and is to follow-up with his primary care doctor in 1 to 2 weeks. Patient was seen and examined prior to discharge. He felt much better and had no complaints. Review of systems otherwise negative. Labs and vitals reviewed. Home medication reviewed and reconciled. Physical Exam Const alert, oriented x3 and no apparent distress General Appearance: cooperative Exam Limitations: no limitations HEENT normocephalic, head/scalp atraumatic and moist oral mucous membranes Eyes PERRL, EOMs intact bilaterally and conjunctivae normal Neck no lymphadenopathy, supple and no JVD Resp normal respiratory effort, no retractions and no use of accessory muscles Resp Narrative: * diminished breath sounds bibasally, no wheezes or crackles. On 4L of oxygen. Effort and Inspection: tachypneic Auscultation: diminished lung sounds; Negative for crackles or rales Cardio regular rate, regular rhythm, S1 normal heart sound, S2 normal heart sound and no murmurs GI normal to inspection, nondistended, normoactive bowel sounds, soft to palpation, non-tender and non-distended; Negative for hepatosplenomegaly Extremity normal to inspection, full ROM and no clubbing, cyanosis or edema Skin no rashes or lesions noted Neuro oriented x3, CN's II-XII intact bilaterally, moves all extremities, no focal motor deficits and no sensory deficits noted Sensorium / Orientation: awake and alert Psych affect normal Appearance: appropriate Medical Records Data Medical Nutrition Assessment Dietitian: Malnutrition Criteria Met Start: 01/31/21 11:49 Freq: Status: Active Protocol: Document 01/31/21 11:49 AYAN (Rec: 01/31/21 11:49 AYAN [id number]) Nutrition Malnutrition Evidence of Malnutrition Exists Yes Evidenced By Suboptimal Energy Intake ( Severe),Weight Loss (Severe) Clinical Problem Acute Disease or Injury Related Malnutrition Etiology related to acute illness / COVID and not being able to consume adequate nutrition to meet pt est nutritional needs Signs/Symptoms as evidenced by 8.9% wt loss and <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 Problem Recommendation Dietitian Recommendations/Changes Will continue diet as ordered Will provide 120 ml glucerna shake w/ meals Weight / BMI Weight Weight: 182 lb 12.211 oz Body Mass Index (BMI) 29.5 ABG / Lab / Microbiology Data Result Diagrams: 02/02/21 07:23 02/02/21 07:23 Laboratory: Laboratory Results - last 24 hr 02/01/21 18:38: POC Glucose 327 H 02/01/21 21:23: POC Glucose 208 H 02/02/21 06:42: POC Glucose 248 H 02/02/21 07:23: WBC 5.7, RBC 3.88 L, Hgb 13.1, Hct 37.6 L, MCV 96.9 H, MCH 33.8 H, MCHC 34.8, RDW Std Deviation 45.0 H, RDW Coeff of Gem 12.6, Plt Count 239, MPV 9.3, Immature Gran % (Auto) 0.400, Neut % (Auto) 69.9, Lymph % (Auto) 17.5 L , [place] % (Auto) 10.4 H, Eos % (Auto) 1.1, Baso % (Auto) 0.7, Absolute Neuts (auto) 4.0, Absolute Lymphs (auto) 0.99, Nucleated RBC % 0 02/02/21 07:23: Sodium 136, Potassium 4.3, Chloride 103, Carbon Dioxide 26.0, Anion Gap 7, BUN 18, Creatinine 0.92, Estim Creat Clear Calc 62.61, Est GFR (MDRD) Af Amer 103, Est GFR (MDRD) Non-Af 86, BUN/Creatinine Ratio 19.7, Glucose 279 H, Calcium 9.0 02/02/21 11:04: POC Glucose 333 H Microbiology: Microbiology 01/30/21 11:20 Blood Culture (Wb) - Anticubital Right Blood Culture - Preliminary No growth in 48 hours. 01/30/21 09:45 Blood Culture (Wb) - Anticubital Left Blood Culture - Preliminary No growth in 48 hours. D/C Instructions Discharge Diet: Low fat / Low cholesterol and 1800 Calorie Control Diet Discharge Activity: Return to Normal Activity Weight Bearing Status: Weight bearing as tolerated Meaningful Use Info Meaningful Use Diagnoses (Choose all that apply): None applicable Discharge Plan Admission Admit Date/Time: 01/30/21 12:39 Primary Reason for Your Visit: acute on chronic hypoxic respiratory failure due to COVID 19 pneumonia Attending Provider: Carmenza Larson Primary Care Provider: César Osorio Discharge Orders/Prescriptions Prescriptions: Continued metformin 500 mg tablet 1,000 mg PO BID RF: 0 cholecalciferol (vitamin D3) 2,000 unit tablet 2,000 unit tablet 2,000 unit PO QDAY RF: 0 aspirin [Adult Aspirin Regimen] 81 mg tablet,delayed release (DR/EC) 162 mg PO QDAY RF: 0 multivitamin tablet 1 tab PO QDAY RF: 0 antiarthritic combination no.2 [glucosamine-chondroitin] 900 mg tablet See Rx Instructions PO .q day RF: 0 nitroglycerin 0.4 mg tablet, sublingual 0.4 mg SUBLINGUAL Q5-15M PRN (Reason: chest pain) Qty: 25 RF: 3 losartan 50 mg tablet 50 mg PO DAILY Qty: 90 RF: 3 baclofen 20 mg tablet 20 mg PO QHS RF: 0 tamsulosin 0.4 mg capsule 0.4 mg PO QHS RF: 0 atenolol 25 mg tablet 25 mg PO DAILY Qty: 90 RF: 4 hydrochlorothiazide 12.5 mg tablet 12.5 mg PO DAILY Qty: 90 RF: 3 Referrals / Follow Up: César Osorio MD [Primary Care Provider] - Within 2 Weeks Disposition Disposition (needs filled in before D/C Order can be placed): Home, Self Care Charges/Coding Visit Charges Inpatient E&M: 21807 Disch Hosp
[2021-02-02 16:56] LABS: Bedside Glucose 265 mg/dL (70-110)
--- NOTE | 2021-02-03 15:03 | CASEMGMT ---
RN CM Discharge Follow Up Phone Call: EFREME: Ghada Strata:2 Call Date: 02/03/21 Discharge Date: 02/02/21 Time of Call:1502 Duration:<1 min Admitting Dx:EDMAR CASTANEDA CM completed follow up phone call after recent hospitalization. Pt phone number is to his work. Lady who answered states there is no way to reach the patient.
== END 2021-02-02 18:15 | disposition home or self-care (01) | DRG 177 ==
LOC: ED 12:13 → MS3 12:59
PROVIDERS: Admitting Provider Family Medicine; Emergency Provider Emergency Medicine; PCP Family Medicine; Visit Provider Student in an Organized Health Care Education/Training Program
DX: U07.1 COVID-19 (principal); J12.82 Pneumonia due to coronavirus disease 2019; J96.21 Acute and chronic respiratory failure with hypoxia; E43 Unspecified severe protein-calorie malnutrition; Z68.29 Body mass index [BMI] 29.0-29.9, adult; E11.9 Type 2 diabetes mellitus without complications; E78.5 Hyperlipidemia, unspecified; I10 Essential (primary) hypertension; I25.10 Atherosclerotic heart disease of native coronary artery without angina pectoris; I25.2 Old myocardial infarction; I34.1 Nonrheumatic mitral (valve) prolapse; Z95.1 Presence of aortocoronary bypass graft; Z79.84 Long term (current) use of oral hypoglycemic drugs; Z79.82 Long term (current) use of aspirin; Z79.899 Other long term (current) drug therapy; Z87.891 Personal history of nicotine dependence
CPT/HCPCS: 36415; 71275; 80048; 80053; 82962; 83605; 84484; 85025; 85379; 87040; 93005; 94762; 99285; Q9967; A4216; J1940

== ENCOUNTER 2021-07-21 07:11 | Outpatient (CLI) | payer OTHER, SELFPAY ==
[2021-07-21 08:44] LABS: AST(SGOT) 21 U/L (15-37); Alanine Aminotransfer ALT/SGPT 24 U/L (16-61); Albumin, Serum 3.7 g/dL (3.2-5.0); Alkaline Phosphatase 52 U/L (45-117); Bilirubin, Direct 0.19 mg/dL (0.00-0.30); Cholesterol 117 mg/dL (200); Globulin 3.8 g/dL (2.2-4.2); High Density Lipoprotein 48 mg/dL; Protein, Total 7.5 g/dL (6.4-8.2); Triglycerides 131 mg/dL; Very Low Density Lipoprotein 26 mg/dL (5-40)
== END 2021-07-21 23:59 | disposition home or self-care (01) ==
LOC: LAB 07:12
PROVIDERS: PCP Family Medicine; Referring Provider Internal Medicine Cardiovascular Disease; Visit Provider Internal Medicine Cardiovascular Disease
DX: E78.00 Pure hypercholesterolemia, unspecified (principal)
CPT/HCPCS: 36415; 80061; 80076

== ENCOUNTER → 2022-01-24 | Outpatient (CLI) | payer SELFPAY, OTHER ==
--- NOTE | 2022-01-24 09:48 | ECHOD_ITS ---
Reason For Study: NON-RHEUMATIC MVP Procedure This was a 2D Doppler, Color Flow transthoracic echocardiogram. The study was technically difficult. Exam performed in department. Left Ventricle Normal LV size. Left ventricular systolic function is normal. The estimated ejection fraction is 60 %. Diastolic function is indeterminate. No regional wall motion abnormalities noted. Right Ventricle Normal RV size. The right ventricle is normal in size, function, and thickness. Atria The left and right atria are normal. Normal right atrium. No doppler evidence for ASD. Mitral Valve There is no mitral annular calcification. Normal mitral valve. Trivial mitral valve insufficiency. Tricuspid Valve Normal tricuspid valve. Trivial tricuspid valve insufficiency. Unable to estimate RV systolic pressure/pulmonary artery pressure due to technically difficult study. Aortic Valve Trisinus/trileaflet aortic valve. Mild focal aortic valve calcification. Pulmonic Valve The pulmonic valve is not well visualized. Great Vessels Normal sized aortic root. Calcified aortic root. Pericardium/Pleural No pericardial effusion. MMode/2D Measurements & Calculations LVIDd: 5.4 cm IVSd: 1.0 cm Ao root diam: 3.6 cm LVIDs: 3.8 cm LVPWd: 1.0 cm RVDd: 3.4 cm FS: 29.5 % LAV(MOD-bp): 70.9 ml LA A4 area: 21.3 cm2 LA dimension(2D): 5.0 cm LAV(MOD-bp) Indexed: 34.3 ml/m2 LAV(MOD-sp2): 68.7 ml LAV(MOD-sp4): 68.8 ml RA A4 area: 18.7 cm2 Time Measurements MV dec time: 0.35 sec Doppler Measurements & Calculations MV E max jeancarlos: 51.7 cm/sec Lat Peak E' Jeancarlos: 7.3 cm/sec Med Peak E' Jeancarlos: 8.3 cm/sec MV A max jeancarlos: 78.5 cm/sec E/E' lat: 7.1 E/E' med: 6.2 MV E/A: 0.66 MV dec slope: 146.5 cm/sec2 Ao V2 max: 138.0 cm/sec LV V1 max: 74.3 cm/sec Ao max P.6 mmHg LV V1 max P.2 mmHg Ao V2 mean: 91.9 cm/sec LV V1 mean P.2 mmHg Ao mean P.9 mmHg LV V1 mean: 51.7 cm/sec Ao V2 VTI: 30.3 cm LV V1 VTI: 16.4 cm PA V2 max: 126.4 cm/sec ECHO/Echo Complete Interpretation Summary The study was technically difficult. Left ventricular systolic function is normal. The estimated ejection fraction is 60 %. Trivial mitral valve insufficiency. Trivial tricuspid valve insufficiency. Mild focal aortic valve calcification. Calcified aortic root. Unable to estimate RV systolic pressure/pulmonary artery pressure due to techni dario difficult study. Diastolic function is indeterminate. Ordering Physician: January Loera Referring Physician: César Osorio Performed By: Korina Chavez, KARYNA, RVT
== END | disposition home or self-care (01) ==
PROVIDERS: PCP Family Medicine; Referring Provider Nurse Practitioner Gerontology; Visit Provider Nurse Practitioner Gerontology
DX: I34.1 Nonrheumatic mitral (valve) prolapse (principal); R06.09 Other forms of dyspnea
CPT/HCPCS: 93306

== ENCOUNTER → 2022-07-04 | Outpatient (CLI) | payer OTHER, SELFPAY ==
[2022-07-04 10:40] LABS: BNP,B-Type NATRIURETIC PEPTIDE 57.4 pg/mL (0-100)
[2022-07-04 10:58] LABS: AST(SGOT) 18 U/L (15-37); Alanine Aminotransfer ALT/SGPT 23 U/L (16-61); Albumin, Serum 3.5 g/dL (3.2-5.0); Alkaline Phosphatase 49 U/L (45-117); Anion Gap 9 (5-15); BUN 15 mg/dL (7-18); BUN/Creat Ratio 13.3 RATIO (10-20); Calcium,Total 9.1 mg/dL (8.5-10.1); Chloride 107 mmol/L (98-107); Cholesterol 110 mg/dL (200); Creatinine, Serum 1.13 mg/dL (0.70-1.30); EST Glomerular Filtration Rate 67 mL/min (>60); Est Glom Filt Rate - Afr Amer 81 mL/min (>60); Globulin 3.7 g/dL (2.2-4.2); Glucose 156 mg/dL (74-106); High Density Lipoprotein 49 mg/dL; Protein, Total 7.2 g/dL (6.4-8.2); Sodium Level 143 mmol/L (136-145); Triglycerides 135 mg/dL; Very Low Density Lipoprotein 27 mg/dL (5-40)
== END | disposition home or self-care (01) ==
PROVIDERS: Internal Medicine Cardiovascular Disease; PCP Family Medicine; Referring Provider Nurse Practitioner Gerontology; Visit Provider Nurse Practitioner Gerontology
DX: E78.5 Hyperlipidemia, unspecified (principal); I25.10 Atherosclerotic heart disease of native coronary artery without angina pectoris; R06.09 Other forms of dyspnea
CPT/HCPCS: 36415; 80048; 80061; 80076; 83880

== ENCOUNTER 2023-04-12 08:08 | Observation (INO) | payer OTHER, SELFPAY ==
--- NOTE | 2023-03-20 08:50 | RAD_ITS ---
STUDY: X-RAY CHEST REASON FOR EXAM: Male, 78 years old. Preoperative evaluation. TECHNIQUE: Frontal and lateral views of the chest. COMPARISON: January 18, 2021. FINDINGS: Stable hyperinflation with linear scarring in both bases. Scattered healed parenchymal granulomatous calcifications, unchanged. There is no demonstrated pleural abnormality. Cardiomegaly unchanged. Normal mediastinum and snehal. Normal visualized pulmonary arteries. Aortic tortuosity with calcification unaltered. Thoracic osteopenia with mild diffuse thoracic spondylosis, unchanged. Normal visualized ribs, clavicles, and shoulders. Stable lower cervical spine fusion. No abnormality of the visualized soft tissue structures of the upper abdomen. RAD/Chest PA and Lateral IMPRESSION: Stable cardiomegaly, marked aortic tortuosity with calcification and hyperinflation. No active or acute cardiopulmonary disease. Electronically Signed: George Gonzalez MD at 9:58 EST ,
[2023-03-20 09:19] LABS: Absolute Neutrophil Count 3.4 X10^3/uL (2.0-7.7); Basophil# 0.05 X10^3/uL; Basophil% 0.9 % (0-1); Eosinophil# 0.22 X10^3/uL; Eosinophils% 3.9 % (0-5); Hematocrit 42.5 % (40-54); Hemoglobin 13.9 g/dL (13.0-16.5); Lymphocyte % 26.6 % (19-41); Mean Corp Hgb Conc 32.7 g/dL (32-36); Mean Corpuscular Hgb 34.3 pg (27.0-32.0); Mean Corpuscular Volume 104.9 fL (80-94); Mean Platelet Vol. 9.4 fl (6.2-12.0); Monocyte# 0.49 X10^3/uL; Monocyte% 8.7 % (0-10); NRBC Flagged by Analyzer 0 % (0-5); Neutrophil # 3.35 X10^3/uL (2.7-7.7); Neutrophil % 59.5 % (47-70); Platelet Count 213 K/mm3 (150-450); RBC Distribution Width SD 54.1 fl (35.1-43.9); Red Blood Count 4.05 M/mm3 (4.6-6.2); White Blood Count 5.6 K/mm3 (4.4-11.0)
[2023-03-20 09:27] LABS: Prothrombin Time (Protime)PT. 13.6 SECONDS (11.7-14.9)
[2023-03-20 09:28] LABS: Partial Thromboplast Time 32.2 Seconds (24.1-36.2)
[2023-03-20 09:42] LABS: Anion Gap 2 (5-15); BUN 16 mg/dL (7-18); BUN/Creat Ratio 12.1 RATIO (10-20); Calcium,Total 9.4 mg/dL (8.5-10.1); Chloride 107 mmol/L (98-107); Creatinine, Serum 1.32 mg/dL (0.70-1.30); EST Glomerular Filtration Rate 56 mL/min (>60); Est Glom Filt Rate - Afr Amer 67 mL/min (>60); Glucose 219 mg/dL (74-106); Sodium Level 138 mmol/L (136-145)
[2023-03-20 10:14] LABS: Hemoglobin A1c 6.3 % (3.8-5.6)
[2023-04-12] VITALS (12 sets, daily range): BP systolic 91–135; BP diastolic 50–79; PULSE 53–75; RESP 16–26; TEMP 36.1–36.8; O2SAT 92–97; BMI 35.9; BMI 37.9
--- NOTE | 2023-04-12 06:30 | RAD_ITS ---
STUDY: X-RAY - LUMBAR SPINE REASON FOR EXAM: Male, 78 years old. LUMBAR FUSION/ DECOMPRESSION TECHNIQUE: 2 view(s) of the lumbar spine were obtained. COMPARISON: None FINDINGS: Fluoroscopy of the lumbar spine was utilized operating room during discectomy, interbody fusion, transpedicular fixation the lower lumbar spine and 6 images are cemented for interpretation. . RAD/Lumbar Spine 2 or 3 Views IMPRESSION: Fluoroscopy during lumbar spine fixation. Electronically Signed: Jem Wan MD at 23:28 EST ,
[2023-04-12] MEDS: Lactated Ringers 1,000 ML 15 ML IV (06:58)
[2023-04-12 07:22] LABS: Bedside Glucose 157 mg/dL (74-106)
--- NOTE | 2023-04-12 08:05 | OP.PCM_ITS ---
Problems Associated Problem List Diagnoses (1) Lumbar stenosis: Report of Operation Date of Procedure: 04/12/23 Description of Surgical Findings:: Preop diagnosis: 1. Lumbar stenosis, L3-4, L4-5 with spondylosis 2. Lumbar degenerative disc disease L3-4, L4-5 3 L3-4 spondylolisthesis Postop diagnosis: 1. Lumbar stenosis, L3-4, L4-5 with spondylosis 2. Lumbar degenerative disc disease L3-4, L4-5 3. L3-4 spondylolisthesis Procedures performed: 1. L3-4 posterior lumbar interbody fusion 2. L4-5 posterior lumbar interbody fusion 3. Insertion of intervertebral biomechanical device x 2 4. Structural allograft for spinal fusion 5. L3 bilateral laminectomies, foraminotomies, facetectomies, decompression of bilateral nerve roots 6. L4 bilateral laminectomies, foraminotomies, facetectomies, decompression of bilateral nerve roots 7. L3-4, L4-5 posterolateral fusion 8. Pedicle screw fixation 9. Local autograft for spinal fusion 10. Neuro monitoring bilateral upper and bilateral lower extremities Statement of medical necessity: The patient is a 78-year-old male with intractable back and leg pain. Image studies confirm the above diagnoses. They have failed conservative treatments and have opted for operative intervention understanding the risk to include but not limited to infection, bleeding, damage to nerves arteries and veins, possibility of spinal fluid leak, nonunion, hardware failure, continued pain, need for further surgery, deep vein thrombosis, pulmonary embolism, heart attack, risk of stroke or . Description of the procedure: The patient was identified in the preoperative holding area. There they received preoperative IV antibiotics and was then transferred to the operative suite. Once in the operative suite after general endotracheal anesthesia was established, the patient was positioned prone on the Jj operating table. All bony prominences were padded accordingly. The lumbar spine was prepped and draped in a standard fashion. Bear hugger's were not turned on until the drapes were placed and sealed with Ioban. A midline incision was made and taken down to the fascia. The fascia was divided and subperiosteal dissection was taken down to the level of the transverse processes of L3, L4, and L5 bilaterally. Deep retractors were placed. A bone scalpel was used to make cuts in the lamina and then a series of rongeurs and Kerrisons were used removing the spinous process and lamina of L3 and L4. Then facetectomies of greater than 50% were performed at L3-4 and L4-5 bilaterally as well as foraminotomies decompressing the bilateral nerve roots. Given the severity of the stenosis I needed to perform wide bilateral laminectomies and near complete facetectomies in order to decompress the neural elements thus creating instability necessitating the fusion. I then proceeded with interbody fusion. The nerve roots and dura were identified and retracted medially. A knife was utilized to perform an annulotomy at L3-4 on the left. Endplate elevators, curettes, and pituitaries were utilized to remove disc material. Endplates were prepared with a rasp. An appropriate sized intervertebral peek cage device measuring 11 mm was packed with morselized cancellous allograft and impacted int o position completing the posterior lumbar interbody fusion at the L3-4 level. The same steps were repeated at L4-5. An intervertebral peek cage device measuring 12 mm was packed with morselized cancellous allograft and impacted into position thus completing the posterior interbody fusion at the L4-5 level. I then proceeded with pedicle screw fixation. Starting points were found at the junction of the superior articular process and transverse processes of L3, L4, and L5. A power bur was used for the starting points. Pedicle probes were placed bilaterally and then 6.5 x 55 mm screws were placed bilaterally at L3, L4, and L5. The screws were tested with intraoperative neurophysiologic monitoring and tested within normal limits. Connector rods were applied and secured with set screws. I then proceeded with the posterolateral fusion. This was accomplished by decorticating the transverse processes bilaterally at L3, L4, and L5. This decorticated bone was then bridged with local autograft from the decompression as well as morselized cancellous allograft completing the posterolateral fusion of the L3-4, and L4-5 levels. The incision was thoroughly irrigated. Tisseel was placed over the dura as a hemostatic agent. A deep drain was placed. The fascia was closed with #1 Vicryl, subcutaneous with 2-0 Vicryl and skin with 2-0 nylon. A sterile dressing was applied with 4 x 4's ABD and tape. Sponge instrument and needle counts were correct at the end of the case. Neurophysiologic monitoring was maintained at baseline throughout the duration of the case. The patient was extubated and taken to the PACU without incident Surgeon: César Yung Type of Anesthesia: General Drains: Hemovac Estimated Blood Loss (mL): 1000 cc Fluids Replaced: 2000 cc Grafts/Implants Used: Unified spine Complications None Admit VTE Documentation VTE Present on Admission: No
--- NOTE | 2023-04-12 08:06 | PCM.PN.ORT ---
Subjective Subjective Seen and examined postop. Resting comfortably. Pain controlled. No complaints Objective Data Objective Data Vital Signs: Vital Signs Temp Pulse Resp BP Pulse Ox O2 Del Method 98.3 F 65 16 124/63 H 96 Room Air 04/12/23 06:20 04/12/23 06:20 04/12/23 06:20 04/12/23 06:20 04/12/23 06:20 04/12/23 06:20 Oxygen Delivery Method Room Air Weight: 222 lb 10.67 oz Body Mass Index (BMI) 35.9 Lab / Micro Data 03/20/23 08:41 03/20/23 08:41 Labs: Laboratory Results - last 24 hr 04/12/23 06:30: POC Glucose 157 H Physical Exam Const alert, oriented x3 and no apparent distress General Appearance: cooperative, comfortable and well kempt HEENT normocephalic and head/scalp atraumatic Eyes EOMs intact bilaterally and conjunctivae normal Neck full ROM General: normal visual inspection Chest inspection of chest normal and palpation of chest normal Resp normal respiratory effort and normal air movement Cardio regular rate, regular rhythm and peripheral pulses 2+ throughout GI soft to palpation, non-tender and non-distended Back/Spine Back/Spine Narrative: Dressing clean dry and intact. Cervical Spine: cervical ROM normal Thoracic Spine / Upper Back: normal to inspection Lumbar Spine / Lower Back: normal to inspection Extremity normal to inspection, full ROM, normal capillary refill, no clubbing, cyanosis or edema and no calf tenderness Skin no rashes or lesions noted General Skin Exam: no breakdown Neuro oriented x3, CN's II-XII intact bilaterally, moves all extremities, no focal motor deficits, no sensory deficits noted and deep tendon reflexes 2+ bilaterally Motor Exam: muscle tone normal throughout Assessment & Plan Assessment/Plan (1) Lumbar stenosis: PLAN: Okay to admit See orders Discharge planning, likely home tomorrow
--- NOTE | 2023-04-12 08:06 | PCM.DC.SUM ---
Providers Date of Admission: 04/12/23 Primary Care Physician: Dr. César Osorio MD Reason For Visit: LUMBAR 3 - LUMBAR 4, LUMBAR 4 - LUM Diagnosis Discharge Diagnosis (1) Lumbar stenosis: Status: Acute Code(s): M48.061 - Spinal stenosis, lumbar region without neurogenic claudication Medications at Discharge Home Medications nitroglycerin 0.4 mg sublingual tablet 0.4 mg sublingual Q5-15M PRN chest pain #25 tabs 11/04/18 baclofen 20 mg tablet 20 mg PO QHS Check with primary doctor 01/30/21 tamsulosin 0.4 mg capsule 0.4 mg PO QHS Check with primary doctor 01/30/21 gabapentin 100 mg capsule 100 mg PO QHS 07/21/21 pioglitazone 45 mg tablet 45 mg PO DAILY 07/21/21 cholecalciferol (vitamin D3) 125 mcg (5,000 unit) tablet 5,000 unit PO BID 01/11/22 glimepiride 4 mg tablet 4 mg PO BID 01/11/22 metformin 500 mg tablet,extended release 24 hr 1,000 mg PO BID 01/11/22 atenolol 25 mg tablet 25 mg PO DAILY #90 tabs 07/04/22 losartan 50 mg-hydrochlorothiazide 12.5 mg tablet 1 tab PO DAILY #90 tabs 07/04/22 simvastatin 80 mg tablet 80 mg PO QHS #90 tabs 10/11/22 hydrocodone-acetaminophen 5-325mg 5mg-325mg 1 tab PO Q6H 7 days #28 tabs 04/12/23 ipratropium bromide 17 mcg/actuation HFA aerosol inhaler (Atrovent HFA) 1 inh inhalation Q6H PRN shortness of breath or wheezing #12.9 grams 04/14/23 prednisone 10 mg tablet 10 mg PO DAILY #30 tabs 04/14/23 Hospital Course Operations - (L3-5 posterior lumbar interbody fusion, decompression, posterior spinal fusion with instrumentation) Summary of Care Provided Minutes Spent on Discharge: 15 Hospital Course: The patient is a 78-year-old male who underwent L3-5 lumbar fusion on 04/12/2023. He was subsequently admitted. The hospitalist was consulted for medical management. The patient progressed well. His pain was controlled and he was mobilizing well. His drain was pulled on postoperative day 1. No significant medical issues were reported. He was subsequently discharged home on 04/14/2023 to follow-up with Dr. Yung in 3 weeks Physical Exam Const alert, oriented x3 and no apparent distress General Appearance: cooperative, comfortable and well kempt Neck full ROM General: normal visual inspection Chest inspection of chest normal and palpation of chest normal Resp normal respiratory effort and normal air movement Effort and Inspection: able to speak in complete sentences Cardio regular rate and peripheral pulses 2+ throughout GI soft to palpation, non-tender and non-distended Back/Spine Back/Spine Narrative: Dressing clean dry and intact. Incision well-approximated with interrupted sutures in place. No tenderness erythema drainage or fluctuance Cervical Spine: cervical ROM normal Thoracic Spine / Upper Back: normal to inspection Lumbar Spine / Lower Back: normal to inspection Extremity normal to inspection, full ROM, normal capillary refill, no clubbing, cyanosis or edema and no calf tenderness Skin no rashes or lesions noted General Skin Exam: no breakdown Neuro oriented x3, CN's II-XII intact bilaterally, moves all extremities, no focal motor deficits, no sensory deficits noted and deep tendon reflexes 2+ bilaterally Motor Exam: strength 5/5 throughout and muscle tone normal throughout Weight / BMI Weight Weight: 222 lb 10.67 oz Body Mass Index (BMI) 35.9 ABG / Lab / Microbiology Data 04/13/23 09:16 04/13/23 09:16 Laboratory: Laboratory Results - last 24 hr 04/12/23 06:30: POC Glucose 157 H D/C Instructions Discharge Diet: No restrictions Additional Activity Instructions: Wear back brace at all times. Okay to remove brace to sleep. No repetitive bending twisting or lifting greater than 5 pounds Call your doctor if your incision/area has: Continuous Slow Oozing, Sudden Increased Bleeding, Increased Pain/ Swelling, Increased Redness, Foul Smelling Discharge and Swelling at the incision site Call your doctor if you observe: Fever of 101 or Higher, Coldness, Increased Pain, Numbness or Tingling, Change in Color, Inability to urinate, Inability to have a bowel movement, Using more than 1 pad per hour, Shortness of breath, Dizziness, Fainting spells, Swelling in the ankles, Chest pain, Prolonged hiccupping, Increased palpitations (irregular heartbeat), Calf discomfort and Uncontrolled pain Cleanse incision/area with: Do not get Incision Wet and Keep Dressing Clean & Dry Additional Dressing/Incision Instructions: Change dressing daily with iodine gauze and tape. Use waterproof dressing to shower Additional Instructions: 1. During your procedure, you received sedation through your IV. Please follow these instructions for the next 24 hours: Do not drive a motor vehicle, do not drink any alcoholic beverages, and do not sign any legal documents or make personal or business decisions. A responsible adult should stay with you at least 6 hours after the procedure. 2. Keep your surgical site/incision clean and the dressing dry and intact. You may use an ice pack at the surgical site to reduce any swelling or discomfort. 3. Monitor the incision site for any signs or symptoms of infection. Watch for redness, excessive swelling or drainage, or continued pain at the incision site after 3 days. Contact your physician immediately for a fever, chills or a temperature of 101.5? F or greater. 4. Take your medication exactly as prescribed by your physician. Do not attempt to wean yourself off any of your medications even though your pain is improving. This process needs to be carefully monitored by your doctor. Take any antibiotics prescribed exactly as directed and until they are gone. 5. Avoid stretching, bending, pulling, twisting or any sudden movements. Do not bend or twist at the waist. Wear back brace at all times 6. No lifting greater than 5 pounds. 7. Do not operate a motor vehicle, equipment or a power tool while taking pain medication 8. Do not have any manipulation done by a chiropractor or any other physician without first consulting with the surgeon 9. Please contact our office if you are even scheduled for a CT scan or an MRI. 10. Please call us if you have any questions, problems or concerns. Please Follow Up With: César Yung DO When: 3 weeks Meaningful Use Info Meaningful Use Diagnoses (Choose all that apply): None applicable Discharge Plan Admission Admit Date/Time: 04/12/23 08:08 Attending Provider: César Yung Primary Care Provider: César Osorio Consulting Providers: Gogo Santizo; Lenore Robledo Instructions Additional Instructions / Restrictions: 1. During your procedure, you received sedation through your IV. Please follow these instructions for the next 24 hours: Do not drive a motor vehicle, do not drink any alcoholic beverages, and do not sign any legal documents or make personal or business decisions. A responsible adult should stay with you at least 6 hours after the procedure. 2. Keep your surgical site/incision clean and the dressing dry and intact. You may use an ice pack at the surgical site to reduce any swelling or discomfort. 3. Monitor the incision site for any signs or symptoms of infection. Watch for redness, excessive swelling or drainage, or continued pain at the incision site after 3 days. Contact your physician immediately for a fever, chills or a temperature of 101.5? F or greater. 4. Take your medication exactly as prescribed by your physician. Do not attempt to wean yourself off any of your medications even though your pain is improving. This process needs to be carefully monitored by your doctor. Take any antibiotics prescribed exactly as directed and until they are gone. 5. Avoid stretching, bending, pulling, twisting or any sudden movements. Do not bend or twist at the waist. Wear back brace at all times 6. No lifting greater than 5 pounds. 7. Do not operate a motor vehicle, equipment or a power tool while taking pain medication 8. Do not have any manipulation done by a chiropractor or any other physician without first consulting with the surgeon 9. Please contact our office if you are even scheduled for a CT scan or an MRI. 10. Please call us if you have any questions, problems or concerns. 1. Please continue using your incentive spirometry and Acapella after discharge and complete your prednisone course and use your inhaler as needed 2. Please call your pulmonary doctor and get a follow-up to be seen in the next 1 to 2 weeks as availability allows Discharge Orders/Prescriptions Prescriptions: New hydrocodone-acetaminophen 5-325 mg tablet 1 tab PO Q6H 7 Days Qty: 28 0RF Atrovent HFA 17 mcg/actuation HFA aerosol inhaler 1 inh inhalation Q6H PRN (Reason: shortness of breath or wheezing) Qty: 12.9 1RF Rx Instructions: with a spacer prednisone 10 mg tablet 10 mg PO DAILY Qty: 30 0RF Rx Instructions: Take 4 tablets x 3 days, 3 tablets x 3 days, 2 tablets x 3 days, 1 tablet x 3 days and then stop Continued nitroglycerin 0.4 mg tablet, sublingual 0.4 mg SUBLINGUAL Q5-15M PRN (Reason: chest pain) Qty: 25 3RF metformin 500 mg tablet extended release 24 hr 1,000 mg PO BID Patient Comments: TAKE TWO TABLETS IN THE MORNING WITH breakfast AND TAKE TWO TABLETS IN THE EVENING losartan-hydrochlorothiazide 50-12.5 mg tablet 1 tab PO DAILY Qty: 90 3RF atenolol 25 mg tablet 25 mg PO DAILY Qty: 90 4RF baclofen 20 mg tablet 20 mg PO QHS Patient Comments: TAKE 1 TABLET BY MOUTH ONCE DAILY AT BEDTIME tamsulosin 0.4 mg capsule 0.4 mg PO QHS Patient Comments: TAKE 1 CAPSULE BY MOUTH EVERY DAY AT BEDTIME gabapentin 100 mg capsule 100 mg PO QHS pioglitazone 45 mg tablet 45 mg PO DAILY cholecalciferol (vitamin D3) 125 mcg (5,000 unit) tablet 5,000 unit PO BID glimepiride 4 mg tablet 4 mg PO BID simvastatin 80 mg tablet 80 mg PO QHS Qty: 90 3RF Discontinued aspirin [Adult Aspirin Regimen] 81 mg tablet,delayed release (DR/EC) 162 mg PO QDAY flurbiprofen 100 mg tablet 100 mg PO BID Patient Comments: TAKE ONE TABLET BY MOUTH TWICE DAILY for arthritis Referrals / Follow Up: Francisco J Fu MD [Med Staff - Active Staff] - None (COPD) May Ragland MD [Non-Staff] - Within 2 Weeks (Call Sunday to schedule follow-up to reassess oxygen needs) César Osorio MD [Primary Care Provider] - César Yung DO [Med Staff - Active Staff] - Disposition Disposition (needs filled in before D/C Order can be placed): Home, Self Care
[2023-04-12] MEDS: Cefazolin 2 GM in 0.9% Normal Saline (100mL Bag) 100 ML IV ×2 (08:30→12:30)
[2023-04-12] MEDS: Heparin 10,000 UNITS/10 ML Vial 10000 UNITS (09:36)
[2023-04-12] MEDS: THROMBIN (RECOMBINANT) 20,000 UNIT VIAL 20000 UNIT TOPICAL (09:37)
[2023-04-12] MEDS: Bupivacaine 0.25% 30 ML Vial (13:00)
[2023-04-12 14:03] LABS: Bedside Glucose 140 mg/dL (74-106)
[2023-04-12] MEDS: Acetaminophen 500 MG Tablet 1000 MG PO (16:18)
[2023-04-12] MEDS: Lactated Ringers 1,000 ML 100 ML IV (16:19)
--- NOTE | 2023-04-12 16:52 | EKG12_ITS ---
Test Reason : BRADYCARDIA Blood Pressure : / mmHG Vent. Rate : 066 BPM Atrial Rate : 066 BPM P-R Int : 234 ms QRS Dur : 086 ms QT Int : 362 ms P-R-T Axes : 039 -14 001 degrees QTc Int : 379 ms Sinus rhythm with 1st degree A-V block Otherwise normal ECG When compared with ECG of 30-JAN-2021 09:51, TX interval has increased Vent. rate has decreased BY 43 BPM QT has shortened Confirmed by DECLAN BAIN, MAN ([id number]), manager editorial IRMA CHOU ([id number]) on 04/16/2023 12:59:27 PM Referred By: César Yung Confirmed By:AMBAR MANRIQUEZ MD
[2023-04-12 17:04] LABS: Bedside Glucose 191 mg/dL (74-106)
[2023-04-12] MEDS: metFORMIN (XR) 500 MG Tablet 1000 MG PO (18:02)
[2023-04-12] MEDS: Glimepiride 4 MG Tablet PO (18:02)
--- NOTE | 2023-04-12 18:06 | PCM.PN.HOSP ---
Reason for Visit Reason for Visit: Diagnoses Spinal stenosis, lumbar region without neurogenic claudication (04/12/23) Encounter for other preprocedural examination (04/12/23) Subjective Subjective 78-year-old male history of coronary artery disease status post stenting, lumbar stenosis, type 2 diabetes, hypertension presented to [facility] 04/12/2023 for lumbar stenosis requiring L3-5 posterior lumbar interbody fusion, decompression, posterior spinal fusion with instrumentation with Dr. Yung. Hospitalist consulted for medical management. Reportedly postop on telemetry heart rate vacillating between 30s and 80s with no known history of fib. EKG obtained which showed sinus rhythm with first-degree block and heart rate of 66, similar to previous. On telemetry patient sinus rhythm with heart rate 60s to 80s at this time after chest was shaved and leads replaced. No fib or long pauses or other kinds of blocks appreciated on telemetry. Patient seen at bedside and reports a little bit of lumbar pain but overall feeling well and has no lightheadedness or chest pain and denies any problems with his breathing. No other complaints at this time Objective Data Objective Data Vital Signs: Vital Signs Temp Pulse Resp BP Pulse Ox O2 Del Method O2 Flow Rate 97.2 F L 66 18 130/54 H 95 Nasal Cannula 5 04/12/23 18:00 04/12/23 18:00 04/12/23 18:00 04/12/23 18:00 04/12/23 18:00 04/12/23 18:00 04/12/23 18:00 Oxygen Flow Rate (L/min) 5 Oxygen Delivery Method Nasal Cannula Weight: 106.594 kg Body Mass Index (BMI) 37.9 Intake & Output: Intake and Output for Last 24 Hours 04/10/23 04/11/23 04/12/23 23:59 23:59 23:59 Intake Total 2364 / 2364 Output Total 590 / 590 Balance 1774 / 1774 Lab / Micro Data 03/20/23 08:41 03/20/23 08:41 Labs: Laboratory Results - last 24 hr 04/12/23 06:30: POC Glucose 157 H 04/12/23 13:46: POC Glucose 140 H 04/12/23 16:39: POC Glucose 191 H Physical Exam Narrative General: Alert, oriented, no apparent distress HEENT: Atraumatic, normocephalic Eyes: Anicteric, normal conjunctiva, extraocular movements grossly intact Neck: Supple Respiratory: Clear to auscultation bilaterally, normal respiratory effort Cardiovascular: Regular rate and rhythm GI: Soft, nontender, nondistended Extremities: Trace lower extremity edema which is chronic Musculoskeletal: Moving all extremities Neuro: No overt focal neurological deficits Skin: No rashes appreciated Psych: Cooperative Assessment & Plan Assessment/Plan (1) Lumbar stenosis: (2) Stented coronary artery: (3) Diabetes mellitus type II, controlled: PLAN: Plan #First degree AV block -Reportedly heart rates transiently down into 30s, no fib on monitor, has been 60s to 80s since chest shaved and leads replaced. Patient has been asymptomatic -EKG with heart rate of 66 sinus rhythm and first-degree AV block similar to EKG in cardiology office last month -EKG in cardiology office 03/09/2023 demonstrated sinus rhythm with first-degree AV block and heart rate of 83 -most recent echocardiogram from 01/24/2022 demonstrated an ejection fraction of 60%, normal mitral valve, and trivial mitral valve insufficiency, RVSP and diastolic function indeterminant -Given patient now consistent in no new onset A-fib or new blocks do not think echo needs repeated -Would hold atenolol at this time pending continued improvement in heart rate # Lumbar stenosis -Lumbar fusion decompression 04/12/[address] Yung -Management per primary # Coronary artery disease -Stented artery in 1997 -Continue statin -Does follow with cardiology on an outpatient basis #Type 2 diabetes mellitus -Glucose checks, patient was continued on his home medications # Hypertension -Blood pressure medications continued #DVT ppx: Pharmacologic prophylaxis timing at discretion of surgeon Gogo Santizo MD Time spent in the patient's overall evaluation,decision-making process, review of diagnostic data, adjustment of management, discussion with other providers, nursing nursing and ancillary staff involved in patient's care documentation, 35 minutes Charges/Coding Visit Charges Inpatient E&M: 72580 Subs Hosp L2
[2023-04-12] MEDS: Gabapentin 100 MG Capsule PO (21:13)
[2023-04-12] MEDS: Cefazolin 1 GM/50 ML BAG IV (21:13)
[2023-04-12] MEDS: Tamsulosin HCl 0.4 MG Capsule PO (21:13)
[2023-04-12] MEDS: Atorvastatin Calcium 40 MG Tablet PO (21:14)
[2023-04-12] MEDS: Baclofen 10 MG Tablet 20 MG PO (21:14)
[2023-04-12] MEDS: Cholecalciferol (Vit D3) 125 MCG CAPSULE (5,000 UNITS) PO (21:14)
[2023-04-12] MEDS: Insulin Lispro 100 UNIT/ML INSULN.PEN SC (21:16)
[2023-04-12] MEDS: oxyCODONE 5 MG Tablet PO (21:23)
[2023-04-12 22:58] LABS: Bedside Glucose 193 mg/dL (74-106)
[2023-04-13] VITALS (11 sets, daily range): BP systolic 122–145; BP diastolic 52–60; PULSE 87–106; RESP 16–26; TEMP 36.6–37.6; O2SAT 90–97
[2023-04-13] MEDS: Lactated Ringers 1,000 ML 100 ML IV (02:19)
[2023-04-13] MEDS: Cefazolin 1 GM/50 ML BAG IV (05:24)
[2023-04-13] MEDS: Insulin Lispro 100 UNIT/ML INSULN.PEN SC ×4 (05:27→21:49)
[2023-04-13] MEDS: oxyCODONE 5 MG Tablet PO (05:36)
[2023-04-13 05:50] LABS: Bedside Glucose 183 mg/dL (74-106)
--- NOTE | 2023-04-13 06:43 | PCM.PN.ORT ---
Subjective Subjective Seen and examined postop day 1. Lying in bed resting comfortably. Pain controlled. No complaints including numbness tingling or weakness. The patient has been up with assistance including to a chair. Objective Data Objective Data Vital Signs: Vital Signs Temp Pulse Resp BP Pulse Ox O2 Del Method O2 Flow Rate 97.8 F 98 16 135/53 H 97 Nasal Cannula 5 04/13/23 03:00 04/13/23 03:00 04/13/23 03:00 04/13/23 03:00 04/13/23 03:00 04/13/23 03:00 04/13/23 03:00 Oxygen Flow Rate (L/min) 5 Oxygen Delivery Method Nasal Cannula Weight: 235 lb Body Mass Index (BMI) 37.9 Intake & Output: Intake and Output for Last 24 Hours 04/11/23 04/12/23 04/13/23 23:59 23:59 23:59 Intake Total 2414 / 2414 1050 / 1050 Output Total 905 / 2105 1840 / 1840 Balance 1509 / 309 -790 / -790 Lab / Micro Data 03/20/23 08:41 03/20/23 08:41 Labs: Laboratory Results - last 24 hr 04/12/23 06:30: POC Glucose 157 H 04/12/23 13:46: POC Glucose 140 H 04/12/23 16:39: POC Glucose 191 H 04/12/23 21:12: POC Glucose 193 H 04/13/23 05:27: POC Glucose 183 H Radiography Diagnostic Testing: Radiology Impression Lumbar Spine X-Ray 04/12/23 06:30 IMPRESSION: Fluoroscopy during lumbar spine fixation. Electronically Signed: Jem Wan MD at 23:28 EST , Physical Exam Const alert, oriented x3 and no apparent distress General Appearance: cooperative, comfortable and well kempt Neck full ROM General: normal visual inspection Chest inspection of chest normal and palpation of chest normal Resp normal respiratory effort and normal air movement Effort and Inspection: able to speak in complete sentences Cardio regular rate and peripheral pulses 2+ throughout GI soft to palpation, non-tender and non-distended Back/Spine Back/Spine Narrative: Dressing clean dry and intact. Incision well-approximated with interrupted sutures in place. No tenderness erythema drainage or fluctuance. Drain pulled Cervical Spine: cervical ROM normal Thoracic Spine / Upper Back: normal to inspection Lumbar Spine / Lower Back: normal to inspection Extremity normal to inspection, full ROM, normal capillary refill, no joint enlargement and no calf tenderness Skin no rashes or lesions noted General Skin Exam: no breakdown Neuro oriented x3, CN's II-XII intact bilaterally, moves all extremities, no focal motor deficits, no sensory deficits noted and deep tendon reflexes 2+ bilaterally Motor Exam: strength 5/5 throughout and muscle tone normal throughout Assessment & Plan Assessment/Plan (1) Lumbar stenosis: PLAN: Continue pain control and mobilization as tolerated. Okay to discharge home when patient is mobilizing well and stable from medicine point of view
--- NOTE | 2023-04-13 07:18 | PCM.PN.HOSP ---
Reason for Visit Reason for Visit: Lumbar stenosis Subjective Subjective Mr. Galvan is a 78-year-old male who underwent a lumbar interbody fusion, decompression, posterior spinal fusion with Dr. Yung yesterday at L3-L5. Postoperatively in PACU he had some bradycardia with heart rates between the 30s and 80s however this is resolved at this time. EKG showed first-degree block which is his baseline. He had no further bradycardia since PACU. He did require oxygen supplementation overnight however he has a history of sleep apnea and wears a CPAP which was not available to him here. Patient denies any dyspnea. No fever or chills. No cough. Patient does report a remote history of tobacco use and is unable to tell me exactly how long he smoked but does state he is quit 15 to 20 years ago. Does not wear oxygen at baseline but is compliant with CPAP nocturnally. Objective Data Objective Data Vital Signs: Vital Signs Temp Pulse Resp BP Pulse Ox O2 Del Method O2 Flow Rate 97.8 F 98 16 135/53 H 97 Nasal Cannula 5 04/13/23 03:00 04/13/23 03:00 04/13/23 03:00 04/13/23 03:00 04/13/23 03:00 04/13/23 03:00 04/13/23 03:00 Oxygen Flow Rate (L/min) 5 Oxygen Delivery Method Nasal Cannula Weight: 106.594 kg Body Mass Index (BMI) 37.9 Intake & Output: Intake and Output for Last 24 Hours 04/11/23 04/12/23 04/13/23 23:59 23:59 23:59 Intake Total 2414 / 2414 1050 / 1050 Output Total 905 / 2105 1840 / 1840 Balance 1509 / 309 -790 / -790 Lab / Micro Data 04/13/23 09:16 04/13/23 09:16 Labs: Laboratory Results - last 24 hr 04/12/23 06:30: POC Glucose 157 H 04/12/23 13:46: POC Glucose 140 H 04/12/23 16:39: POC Glucose 191 H 04/12/23 21:12: POC Glucose 193 H 04/13/23 05:27: POC Glucose 183 H Radiography Diagnostic Testing: Radiology Impression Lumbar Spine X-Ray 04/12/23 06:30 IMPRESSION: Fluoroscopy during lumbar spine fixation. Electronically Signed: Jem Wan MD at 23:28 EST , Physical Exam Const alert, oriented x3, no apparent distress and well nourished Constitutional Narrative: Older, Restorationist, white male, sitting up in bed, family at bedside, patient appears comfortable and nontoxic, currently on 5 L nasal cannula with no signs of respiratory distress HEENT head/scalp atraumatic and moist oral mucous membranes HEENT Narrative: Dentures in place, Mallampati is 3, no thrush Head and Scalp: normocephalic Resp normal respiratory effort, no retractions and no use of accessory muscles Resp Narrative: Diffuse end expiratory wheezing Auscultation: wheezes; Negative for crackles or rhonchi Cardio regular rhythm and S1 normal heart sound Cardio Narrative: Mild tachycardia GI normal to inspection, nondistended, normoactive bowel sounds, soft to palpation and non-tender Extremity no clubbing, cyanosis or edema Extremity Narrative: Pedal pulses are 2+ Neuro oriented x3, moves all extremities and no focal motor deficits Speech: speech normal Psych affect normal Psych Narrative: Very pleasant, eye contact is good Assessment & Plan Assessment/Plan (1) Lumbar stenosis: (2) Bradycardia: (3) First degree heart block: (4) Hypoxia: PLAN: Plan Lumbar stenosis -Postop day 1 lumbar fusion/decompression with Dr. 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 -Echocardiogram done within the last year showing EF of 60% -Heart rates have been stable through the night -Okay to restart atenolol at discharge Hypoxia -Patient currently on 5 L nasal cannula and desats easily with exertion -Is not O2 dependent at baseline -No signs of respiratory failure however patient hypoxic at rest and with exertion on room air -Discontinue IV fluids -Significant wheezing on exam -BNP is unremarkable -Chest x-ray shows some right basilar atelectasis or scarring but was otherwise unremarkable -Encourage Acapella and incentive spirometry -Start prednisone 40 mg daily -Check flu and COVID swab -Check respiratory viral panel -DuoNebs scheduled every 4 hours while awake -Will need to check ambulatory pulse ox prior to discharge CAD/HTN/HPL -Most recent stent was in 1997 -Continue statin -Continue losartan hydrochlorothiazide -Okay to beta-lizandro on discharge DM-2 -Continue Accu-Cheks as ordered -Patient okay to continue home medications with metformin, glimepiride and Actos Chronic pain/neuropathy -Continue home gabapentin -Continue home baclofen -Acute pain management per primary service BPH with obstruction -Continue home Flomax KARLA -Continue nocturnal CPAP DVT prophylaxis -Per primary service Disposition: With ongoing hypoxia and workup/treatment is ongoing. Would recommend holding discharge medically today and less able to wean to room air. Will require ambulatory pulse ox and possibly oxygen prior to discharge depending on progress in the next 24 hours Charges/Coding Visit Charges Inpatient E&M: 73408 Subs Hosp L2
[2023-04-13] MEDS: hydroCHLOROthiazide 12.5mg 12.5 MG PO (07:32)
[2023-04-13] MEDS: Acetaminophen 500 MG Tablet 1000 MG PO ×2 (07:32→16:05)
[2023-04-13] MEDS: metFORMIN (XR) 500 MG Tablet 1000 MG PO ×2 (07:32→17:21)
[2023-04-13] MEDS: Pioglitazone Hydrochloride 45 MG Tablet PO (07:32)
[2023-04-13] MEDS: Losartan Potassium 50 MG Tablet PO (07:32)
[2023-04-13] MEDS: Glimepiride 4 MG Tablet PO ×2 (07:32→17:21)
[2023-04-13] MEDS: Cholecalciferol (Vit D3) 125 MCG CAPSULE (5,000 UNITS) PO ×2 (07:33→21:49)
--- NOTE | 2023-04-13 08:57 | RAD_ITS ---
INDICATION: hypoxia EXAMINATION/TECHNIQUE: X-RAY - XR Chest 1 View COMPARISON: March 20, 2023 FINDINGS: LINES/DEVICES: None. LUNGS: There are low lung volumes. There is a curvilinear opacity within the right lower lung. No pneumothorax. MEDIASTINUM AND CARDIOVASCULAR STRUCTURES: Cardiac silhouette not enlarged. Central airways and mediastinal contour are unremarkable. BONES AND SOFT TISSUES: Unremarkable. RAD/Chest 1 View (Portable) IMPRESSION: Minimal right basilar atelectasis and/or scarring. Electronically Signed: Ashley Lujan MD at 9:53 EST ,
[2023-04-13 09:24] LABS: Absolute Lymphocyte Count 1.45 X10^3/uL (0.83-4.51); Absolute Neutrophil Count 5.8 X10^3/uL (2.0-7.7); Basophil# 0.03 X10^3/uL; Basophil% 0.4 % (0-1); Eosinophil# 0.01 X10^3/uL; Eosinophils% 0.1 % (0-5); Hematocrit 33.8 % (40-54); Hemoglobin 11.2 g/dL (13.0-16.5); Lymphocyte # 1.45 X10^3/ul (0.83-4.51); Lymphocyte % 17.4 % (19-41); Mean Corp Hgb Conc 33.1 g/dL (32-36); Mean Corpuscular Hgb 34.1 pg (27.0-32.0); Mean Platelet Vol. 9.4 fl (6.2-12.0); Monocyte# 0.97 X10^3/uL; Monocyte% 11.7 % (0-10); NRBC Flagged by Analyzer 0 % (0-5); Neutrophil # 5.82 X10^3/uL (2.7-7.7); Neutrophil % 69.9 % (47-70); Platelet Count 132 K/mm3 (150-450); RBC Distribution Width CV 13.9 % (11.6-14.6); Red Blood Count 3.28 M/mm3 (4.6-6.2); White Blood Count 8.3 K/mm3 (4.4-11.0)
[2023-04-13 09:35] LABS: Anion Gap 6 (5-15); BUN 15 mg/dL (7-18); BUN/Creat Ratio 11.1 RATIO (10-20); Calcium,Total 8.8 mg/dL (8.5-10.1); Chloride 106 mmol/L (98-107); Creatinine, Serum 1.35 mg/dL (0.70-1.30); EST Glomerular Filtration Rate 54 mL/min (>60); Est Glom Filt Rate - Afr Amer 66 mL/min (>60); Glucose 229 mg/dL (74-106); Potassium 3.9 mmol/L (3.5-5.1); Sodium Level 137 mmol/L (136-145)
[2023-04-13 09:37] LABS: BNP,B-Type NATRIURETIC PEPTIDE 94.6 pg/mL (0-100)
[2023-04-13] MEDS: Atenolol 25 MG Tablet PO (10:19)
[2023-04-13] MEDS: Ipratropium/Albuterol Sulfate 3 ML AMPUL.NEB INHALATION ×3 (11:33→19:42)
[2023-04-13 11:59] LABS: Bedside Glucose 241 mg/dL (74-106)
[2023-04-13] MEDS: predniSONE 20 MG Tablet 40 MG PO (12:16)
[2023-04-13] MEDS: Insulin Glargine-YFGN 100 UNIT/ML Pen 10 UNIT SC (12:16)
--- NOTE | 2023-04-13 14:21 | CASEMGMT ---
LEONEL NEVILLE Assessment: LEONEL NEVILLE to room to meet w/ pt for initial transition planning/care coordination assessment. LEONEL NEVILLE introduced self and role at [facility], pt voices understanding and consents to assessment. Pt is A/O x4 and answers all questions appropriately at this time. and son, Adelaida, @ bedside and pt agreeable to them being present during assessment. Pt resting in bed with O2 on in no distress. Care providers, pharmacy, and demographics verified/updated. PCP: [facility] Specialists: ROSY/cardioDilshad-ortho Preferred Pharmacy: [facility] if they are open @ time of discharge. Otherwise, [facility] [place] Insurance: [facility] [place] Prescription Benefit: No LW/HPOA: Pt states he does have a LW/DPOA. His DPOA is his Tejal Galvan. He states 1st alternative is son, Gilberto. 2nd alternative, Adelaida. LNOK: Tejal Galvan, ; Adelaida Galvan, son; Gilberto Galvan, son; dtr, Nancy. (Pt has 5 adult children) Living Arrangements: Pt lives with in a two story house with 4 steps to enter with a railing on both sides. FFSU/does not use the upstairs. Pt states he is I in ADL's and denies concerns at home. Pt manages his own medications. does home mgnt tasks. Atlee/son, lives next door. 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 DME: Pt has a pulse ox and O2 from [employer] that he had set up a couple yrs ago when he had COVID. He states he still has the large O2 tank and has 13 portable tanks. He no longer uses the oxygen. Pt has a CPAP at home that he uses @ . He has a generator that runs this. Pt has a functioning glucometer w/supplies. He has a shower chair and cane available that he does not use. Atlee has a walker that he can borrow. Pt wishes to discharge home, denies need for SNF, and states he feels he will be safe @ home. He reports good family support. Pt states no concerns with going home at time of dc. Pt states no further concerns/needs. CM to follow. Advised pt to ask CM if any further question/concerns/needs arise, voices understanding. Plan: Home w/family support and discharge plans in place. Monitor for Home O2 needs. Kareem JIMÉNEZN RN CM
--- NOTE | 2023-04-13 14:43 | CASEMGMT ---
LEONEL CM into pt room to make aware that a pain medication was called in yesterday to [facility] pharmacy. Pt states he can have someone pick this up for him. He is aware that meds will be sent to [facility] pharmacy if there is anything additional at [place] tomorrow and if they close, will be sent to [facility] in [place]. Pt verbalizes understanding. Green sheet on chart in case pt should need oxygen at [place].
[2023-04-13 16:31] LABS: Bedside Glucose 224 mg/dL (74-106)
[2023-04-13] MEDS: Atorvastatin Calcium 40 MG Tablet PO (21:49)
[2023-04-13] MEDS: Baclofen 10 MG Tablet 20 MG PO (21:49)
[2023-04-13] MEDS: Tamsulosin HCl 0.4 MG Capsule PO (21:49)
[2023-04-13] MEDS: Gabapentin 100 MG Capsule PO (21:49)
--- NOTE | 2023-04-13 21:50 | CPS ---
Pt refused PAP therapy for the night.
--- NOTE | 2023-04-13 21:52 | CPS ---
Critical ABG values, due to venous sample obtained. aware
[2023-04-13 22:32] LABS: Bedside Glucose 240 mg/dL (74-106)
[2023-04-14] MEDS: Acetaminophen 500 MG Tablet 1000 MG PO ×2 (01:03→07:48)
[2023-04-14 03:48] VITALS: BP 121/53; PULSE 92; RESP 18; TEMP 37.3; O2SAT 95
[2023-04-14 06:52] LABS: Bedside Glucose 135 mg/dL (74-106)
[2023-04-14 07:01] VITALS: PULSE 92; RESP 22; O2SAT 93
[2023-04-14] MEDS: Ipratropium/Albuterol Sulfate 3 ML AMPUL.NEB INHALATION ×2 (07:01→10:56)
[2023-04-14 07:37] VITALS: BP 124/56; PULSE 106; RESP 16; TEMP 36.8; O2SAT 94
[2023-04-14] MEDS: Furosemide 20 MG/2 ML VIAL IV (07:46)
[2023-04-14] MEDS: metFORMIN (XR) 500 MG Tablet 1000 MG PO (07:47)
[2023-04-14] MEDS: Glimepiride 4 MG Tablet PO (07:47)
[2023-04-14] MEDS: 0.9% Saline Lock 10 ML Syringe IV (07:47)
[2023-04-14] MEDS: predniSONE 20 MG Tablet 40 MG PO (07:48)
[2023-04-14] MEDS: Pioglitazone Hydrochloride 45 MG Tablet PO (09:25)
[2023-04-14] MEDS: Atenolol 25 MG Tablet PO (09:25)
[2023-04-14] MEDS: Losartan Potassium 50 MG Tablet PO (09:25)
[2023-04-14] MEDS: hydroCHLOROthiazide 12.5mg 12.5 MG PO (09:26)
[2023-04-14] MEDS: Cholecalciferol (Vit D3) 125 MCG CAPSULE (5,000 UNITS) PO (09:26)
[2023-04-14 09:28] VITALS: O2SAT 87; O2SAT 91
[2023-04-14 10:56] VITALS: PULSE 88; RESP 22
[2023-04-14] MEDS: Insulin Glargine-YFGN 100 UNIT/ML Pen 10 UNIT SC (11:24)
[2023-04-14] MEDS: Insulin Lispro 100 UNIT/ML INSULN.PEN SC (11:24)
--- NOTE | 2023-04-14 11:24 | PN.HOSP_ITS ---
Reason for Visit Reason for Visit: Chronic back pain Subjective Subjective No issues overnight. Patient remains on 2 L nasal cannula and with ambulation did well with 2 L however at rest with no oxygen his oxygen saturation was 87%. He indicates he is followed with Dr. May Ragland over at [facility] previously and will do so after discharge. He is anxious to go home and would be willing to do so on oxygen if needed. I think with his oxygen stabilizing we can get him home today with supplemental oxygen [id number] and he can follow-up as an outpatient with pulmonary medicine after discharge. He is very anxious to leave and voiced that he would be compliant at home with his supplemental oxygen. Objective Data Objective Data Vital Signs: Vital Signs Temp Pulse Resp BP Pulse Ox O2 Del Method O2 Flow Rate 98.3 F 88 22 H 124/56 H 87 Nasal Cannula 2 04/14/23 07:37 04/14/23 10:56 04/14/23 10:56 04/14/23 07:37 04/14/23 09:28 04/14/23 07:39 04/14/23 09:28 Oxygen Flow Rate (L/min) [ 2 AMBULATING with Oxygen #1] Oxygen Flow Rate (L/min) 4 Oxygen Delivery Method Nasal Cannula Weight: 106.594 kg Body Mass Index (BMI) 37.9 Intake & Output: Intake and Output for Last 24 Hours 04/12/23 04/13/23 04/14/23 23:59 23:59 23:59 Intake Total 2414 / 2414 1646.08 / 1646.08 600 / 600 Output Total 905 / 2105 2490 / 2490 150 / 150 Balance 1509 / 309 -843.92 / -843.92 450 / 450 Lab / Micro Data 04/13/23 09:16 04/13/23 09:16 Labs: Laboratory Results - last 24 hr 04/13/23 11:39: POC Glucose 241 H 04/13/23 16:03: POC Glucose 224 H 04/13/23 21:47: POC Glucose 240 H 04/14/23 06:32: POC Glucose 135 H Micro: Microbiology 04/13/23 11:35 Mucosa - Nasopharyngeal Respiratory Panel (PCR) - Final 04/13/23 11:35 Nasal Secretion SARS-CoV-2 & FLU Antigen (Rapid) - Final Physical Exam Const alert, oriented x3, no apparent distress and well nourished Constitutional Narrative: Older, Lion, white male, sitting up in a chair at the bedside, family at bedside, patient appears comfortable and nontoxic, currently on 2 L nasal cannula with no signs of respiratory distress HEENT head/scalp atraumatic and moist oral mucous membranes HEENT Narrative: Dentition is poor, Mallampati is 3, no thrush Head and Scalp: normocephalic Resp normal respiratory effort, no retractions, no use of accessory muscles and clear to auscultation bilaterally Resp Narrative: Wheezing has resolved and lungs pereira are clear Auscultation: Negative for crackles, rhonchi or wheezes Cardio regular rate, regular rhythm, S1 normal heart sound, S2 normal heart sound, no murmurs, no rub, no gallops and no clicks GI normal to inspection, nondistended, normoactive bowel sounds, soft to palpation and non-tender Extremity no clubbing, cyanosis or edema Extremity Narrative: Pedal pulses are 2+ Neuro oriented x3, moves all extremities and no focal motor deficits Speech: speech normal Psych affect normal Psych Narrative: Very pleasant, eye contact is good Assessment & Plan Assessment/Plan (1) Lumbar stenosis: (2) Bradycardia: (3) First degree heart block: (4) Hypoxia: PLAN: Plan Lumbar stenosis -Postop day 2 lumbar fusion/decompression with Dr. 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 -Echocardiogram done within the last year showing EF of 60% -Heart rates have been stable through the night -Continue atenolol Hypoxia -Supplemental oxygen had been weaned to 2 L an ambulatory pulse ox was assessed and patient does require 2 L with ambulation -No signs of respiratory failure however patient hypoxic at rest and with exert ion on room air -Lasix 20 mg IV push given one-time dose today -Wheezing on exam has resolved -Will discharge home with prednisone taper -Discharge home with Atrovent utilizing spacer and patient was instructed in use prior to discharge -Flu/COVID/respiratory viral panel were all unremarkable -Chest x-ray shows some right basilar atelectasis or scarring but was otherwise unremarkable -Encouraged Acapella and incentive spirometry at home after discharge -Home oxygen was set up for the patient and he was referred to revisit 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 Will require 2 L at rest and with exertion. Patient is anxious to go home and indicates that he can obtain oxygen at home. He utilizes a CPAP nocturnally with a 7 L bleed and already has supplies available with the generator. He has seen Dr. May Ragland in the past and did indicate he would schedule a follow-up to be seen by her after discharge. Okay to discharge home from medical standpoint with supplemental oxygen, prednisone taper, and as needed Atrovent inhaler with spacer. Charges/Coding Visit Charges Inpatient E&M: 62705 Subs Hosp L2
[2023-04-14 11:32] LABS: Bedside Glucose 233 mg/dL (74-106)
== END 2023-04-14 16:58 | disposition home or self-care (01) ==
LOC: SDC 15:11 → MS3 16:30
PROVIDERS: Emergency Medicine; Internal Medicine; Admitting Provider Orthopaedic Surgery; PCP Family Medicine; Referring Provider Orthopaedic Surgery; Visit Provider Orthopaedic Surgery
PROC: 0SG10AJ Fusion of 2 or more Lumbar Vertebral Joints with Interbody Fusion Device, Posterior Approach, Anterior Column, Open Approach (ICD-10-PCS; CPT 22630; principal; 2023-04-12 07:00)
DX: M48.061 Spinal stenosis, lumbar region without neurogenic claudication (principal); E11.40 Type 2 diabetes mellitus with diabetic neuropathy, unspecified; M43.16 Spondylolisthesis, lumbar region; M51.36 Other intervertebral disc degeneration, lumbar region; I25.10 Atherosclerotic heart disease of native coronary artery without angina pectoris; Z87.891 Personal history of nicotine dependence; Z79.84 Long term (current) use of oral hypoglycemic drugs; Z95.5 Presence of coronary angioplasty implant and graft; M47.816 Spondylosis without myelopathy or radiculopathy, lumbar region; I44.0 Atrioventricular block, first degree; R09.02 Hypoxemia; Z79.82 Long term (current) use of aspirin; Z79.899 Other long term (current) drug therapy; E78.00 Pure hypercholesterolemia, unspecified; G47.33 Obstructive sleep apnea (adult) (pediatric); Z86.16 Personal history of COVID-19; I25.2 Old myocardial infarction; I10 Essential (primary) hypertension; M41.86 Other forms of scoliosis, lumbar region; N40.1 Benign prostatic hyperplasia with lower urinary tract symptoms; N13.8 Other obstructive and reflux uropathy
CPT/HCPCS: 22633; 22634; 63053; 63052; 22842; 22853 ×2; 20930; 20936; 00670; 36415; 36600; 71045; 71046; 72100; 76000; 80048; 82962; 83036; 83880; 85025; 85610; 85730; 87428; 87633; 93005; 94002; 94640; 94668; 94762; 96361; 96365; 96366; 96375; 97162; 99221; C1713; J7120; A4216; G0378; J1940; J2405

== ENCOUNTER → 2024-10-03 | Outpatient (CLI) | payer SELFPAY, OTHER ==
--- NOTE | 2024-10-03 08:01 | CT_ITS ---
PROCEDURE: CTA ABD W/RUNOFF W/WO CONTRAST 10/03/2024 REASON FOR EXAM: SEVERE PAD TECHNIQUE: CTA imaging of the abdomen and pelvis with intravenous contrast. Multiplanar and multisequence images were obtained. CONTRAST: Isovue 370 VOLUME: 100 mL One or more dose reduction techniques were used (e.g., Automated exposure control, adjustment of the mA and/or kV according to patient size, use of iterative reconstruction technique). RADIATION DOSE SUMMARY: CTDlvol: 4.32 mGy DLP: 300 mGycm COMPARISON: None. FINDINGS: Aorta: Moderate stenosis of the abdominal aorta. Celiac: Mild stenosis. SMA: Moderate stenosis. BROOKE : Mild stenosis. Right Renal: Moderate stenosis. Left Renal: Mild stenosis. On the right side: Common iliac: High-grade subocclusive stenosis. External iliac : Mild stenosis. Internal iliac : Mild stenosis. Common femoral artery: Moderate stenosis. Superficial femoral artery : Moderate stenosis. Deep femoral artery : Mild stenosis. Popliteal artery : Mild stenosis. Posterior tibial artery : Mild stenosis. Anterior tibial artery : Mild stenosis. Peroneal artery : Mild stenosis. Dorsalis pedis artery : Mild stenosis. On the left side: Common iliac: Mild stenosis. External iliac : Mild stenosis. Internal iliac : Moderate stenosis. Common femoral artery: High-grade subocclusive stenosis. Superficial femoral artery : Moderate stenosis. Deep femoral artery : Mild stenosis. Popliteal artery : Mild stenosis. Posterior tibial artery : Mild stenosis. Anterior tibial artery : Mild stenosis. Peroneal artery : Mild stenosis. Dorsalis pedis artery : Mild stenosis. Cholelithiasis without acute cholecystitis. Uncomplicated colonic diverticulosis. Prostatomegaly. Diffuse thickening of the bladder. Chronic bladder outlet obstruction versus cystitis. Unremarkable metallic prosthesis of the knees. Prior decompression and fusion of the lower lumbar levels. CT/CTA Abd w/Runoff W/WO Contrast IMPRESSION: Atherosclerosis. Multifocal stenosis. Reading [facility]
[2024-10-03 08:30] LABS: CREATININE FINGERSTICK 1.4 mg/dL (0.70-1.30)
== END | disposition home or self-care (01) ==
LOC: CT 07:55
PROVIDERS: PCP Family Medicine; Referring Provider Physician Assistant; Visit Provider Physician Assistant
DX: I73.9 Peripheral vascular disease, unspecified (principal)
CPT/HCPCS: 75635; Q9967; A4216

== ENCOUNTER 2024-11-04 10:00 | Outpatient (CLI) | payer OTHER, SELFPAY ==
[2024-11-12 09:29] LABS: Hematocrit 42.0 % (40-54); Hemoglobin 14.0 g/dL (13.0-16.5); Mean Corp Hgb Conc 33.3 g/dL (32-36); Mean Corpuscular Volume 102.2 fL (80-94); Mean Platelet Vol. 9.4 fl (6.2-12.0); Platelet Count 170 K/mm3 (150-450); RBC Distribution Width CV 14.5 % (11.6-14.6); RBC Distribution Width SD 54.5 fl (35.1-43.9); Red Blood Count 4.11 M/mm3 (4.6-6.2); White Blood Count 4.5 K/mm3 (4.4-11.0)
[2024-11-12 10:00] LABS: Anion Gap 13 (5-15); BUN 18 mg/dL (4-19); BUN/Creat Ratio 14.4 RATIO (10-20); Calcium,Total 9.4 mg/dL (7.6-11.0); Carbon Dioxide 21.9 mmol/L (21.0-32.0); Chloride 103 mmol/L (98-108); Glucose 123 mg/dL (70-99); Potassium 3.8 mmol/L (3.3-5.1)
--- NOTE | 2024-11-12 21:22 | PAT.ANE_ITS ---
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 When Was Last Pacemaker Check QUESTION #4 FULL TEXT: You/Your Family Experience fever (hyperthermia) with Anesthesia Last Oral Intake Last Oral intake: Last Oral Intake NPO since Meds taken in AM with sips of water? 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 Has anyone observed you stop breathing during sleep? STOP Results Positive 11/06/24 11:49 QUESTION #5 FULL TEXT : Do you snore loudly (louder than talking or can be heard through closed doors)? 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 Specify any problems Hx of Preganancy in last 3 N/A 11/06/24 11:49 Months Nurse Filling Out Transfusion DSCHRIBER 11/06/24 11:49 & Questions: Date: 11/06/24 11/06/24 11:49 Time: 11:50 11/06/24 11:49 Patient unable to answer at this time (ie. 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 operator Hx Now No 11/06/24 11:49 Gestational Age (in weeks): EDC: Hx Hx Para Hx Section SAB No 11/06/24 11:49 PFSH Medical History (Updated 11/06/24 @ 11:57 by Jayla Joseph) Ambulates with cane History of pain when walking History of heart attack Wears hearing aid Wears glasses Wears dentures Diabetes Prostate disease High cholesterol Back pain Dietary restriction Former smoker Shortness of breath on exertion Leg cramps History of edema History of stress test History of echocardiogram Cardiology follow-up encounter History of rheumatic fever Essential hypertension Arthritis CPAP (continuous positive airway pressure) dependence Acute and chronic respiratory failure with hypoxia Hyperlipidemia Nonrheumatic mitral (valve) prolapse History of anterior wall myocardial infarction Stented coronary artery (~08/01/97) Atherosclerotic heart disease of [place] coronary artery without angina pectoris Home Medications ?Medication ?Instructions ?Recorded ?Last Taken ?Type nitroglycerin 0.4 mg sublingual 0.4 mg sublingual Q5-1 5M PRN chest 11/04/18 Unknown Rx tablet pain #25 tabs baclofen 20 mg tablet 20 mg PO QHS Check with prim cas 01/30/21 Unknown History doctor tamsulosin 0.4 mg capsule 0.4 mg PO QHS Check with rene katie 01/30/21 Unknown History doctor gabapentin 100 mg capsule 100 mg PO QHS LEG CRAMPS Unknown History pioglitazone 45 mg tablet 45 mg PO DAILY DIABETES 06/29 08/19 Unknown History glimepiride 4 mg tablet 4 mg PO BID DIABETES 2 Unknown History losartan 50 mg-hydrochlorothiazide 1 tab PO DAILY BP # 90 tabs 01/03/24 Unknown Rx 12.5 mg tablet simvastatin 80 mg tablet 80 mg PO QHS CHOLESTEROL #90 01/03/24 Unknown Rx TABLETS aspirin 81 mg chewable tablet 162 mg (2 x 81 mg) PO QD AY PVD #60 07/10/24 Unknown Rx (Manan Chewable Low Dose Aspirin) tabs berberine chloride 500 mg capsule 1,000 mg PO BID SUPP LEMENT 08/29/24 Unknown History cilostazol 50 mg tablet 50 mg PO BID PVD #60 tabs Unknown Rx clopidogrel 75 mg tablet (Plavix) 75 mg PO DAILY PVD # 180 tabs 10/09/24 Unknown Rx atenolol 25 mg tablet 25 mg PO DAILY BP #90 tabs 0 10/15/24 Unknown Rx CIRULATION CALCIUM 1 tab PO DAILY SUPPLEMENT Unknown History CURALIAN 2 cap PO BID SUPPLEMENT 10/28 Unknown History DYSODIUM 1 tab PO DAILY SUPPLEMENT Unknown History PRO-CURSE 1 tab PO DAILY SUPPLEMENT Unknown History SUPER HEALTH PROSTATE 1 tab PO DAILY SUPPLEMENT Unknown History cholecalciferol (vitamin D3) 50 50 mcg PO DAILY SUPPLE MENT 11/06/24 Unknown History mcg (2,000 unit) capsule (Vitamin D3) mecobalamin (vitamin B12) 1,000 1,000 mcg PO DAILY SUP PLEMENT 11/06/24 Unknown History mcg chewable tablet Allergy/AdvReac Type Severity Reaction Status Date / Time rosuvastatin (From [employer]) Allergy Intermediate Rash Verified 11/06/24 11:40 Family History Father , age 81 CAD (coronary artery disease) History of angioplasty, stent, CABG and valvular heart disease Mother , age 42 Heart disease Brother No problems noted. Sister , age 57 of renal cancer Renal cancer Surgical History (Updated 11/06/24 @ 11:57 by Jayla Joseph) History of lumbar fusion History of cardiac catheterization Hx of total knee arthroplasty Hx of fusion of cervical spine Presence of coronary angioplasty implant and graft (~08/01/97) Social History household members: spouse Smoking Status: Former smoker alcohol intake: current alcohol intake frequency: other substance use type: does not use Audit: Pertinent Findings HISTORY of Pertinent Findings History of Pertinent Findings: Patient with a history of CAD status post right coronary artery PCI done in 1997. Also with a history of type 2 diabetes. Echocardiogram 01/24/2022 Interpretation Summary The study was technically difficult. Left ventricular systolic function is normal. The estimated ejection fraction is 60 %. Trivial mitral valve insufficiency. Trivial tricuspid valve insufficiency. Mild focal aortic valve calcification. Calcified aortic root. Unable to estimate RV systolic pressure/pulmonary artery pressure due to technically difficult study. Diastolic function is indeterminate. Chest CTA 01/30/2021 IMPRESSION: 1. No CT evidence of pulmonary embolism. 2. Bilateral subsegmental atelectasis or pneumonitis. Commonly reported imaging features of Covid 19 pneumonia are present. Other processes such as influenza pneumonia and organizing pneumonia from drug toxicity or connective tissue disease can cause a similar imaging pattern. 3. Some denser bibasilar atelectasis or pneumonia. Stress Echocardiogram 12/09/2019 Interpretation Summary The estimated ejection fraction is 65 %. Normal, adequate, treadmill echocardiogram. Negative for ischemia by EKG and echocardiographic criteria. No anginal symptoms noted. Rare PVCs noted. Appropriate blood pressure response to exercise. Average exercise capacity for age. Patient tolerated procedure well. Final LVEF is 75%. Test terminated due to dyspnea. No complications. Pertinent Findings Stress test pertinent findings: Stress test done 11/12/2024: Impression: 1. Pharmacologic (Regadenoson) evaluation 2. Peak pharmacologic ECG with no ischemic changes. 3. There were no cardiac dysrhythmias pretest, during pharmacologic infusion, or recovery. 5. Mildly reduced reversible perfusion of the basal inferior and lateral wall, suggestive of mild ischemia. 6. The gated Cardiolite study reports an LVEF of 60%. Consult pertinent findings: Last cardiology note from 10/29/2024 visit with Trey Brooks NP cardiology patient and EKG twelve-lead done on 10/29/2024 that showed sinus rhythm with a first-degree AV block at a rate of 68 with no evidence of pathological Q waves. They recommended that he undergo a stress test prior to vascular surgery to ensure that his CAD is stable. His stress test results are above, which does not demonstrate any ischemic changes however there is mildly reduced reversible perfusion of the basal inferior and lateral wall suggestive of mild ischemia. 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 He last saw them on 10/29/2024 and they ordered a stress test that was done today. There should be had a note with a comment on the stress test results as there are some reversible perfusion changes that were noted.
== END 2024-11-04 19:00 | disposition home or self-care (01) ==
LOC: SDC 02-26 08:08
PROVIDERS: Anesthesiology; PCP Family Medicine; Referring Provider Surgery Trauma Surgery; Visit Provider Surgery Trauma Surgery
DX: Z01.818 Encounter for other preprocedural examination (principal)
CPT/HCPCS: 36415; 80048; 83036; 85027; 86850; 86900; 86901

== ENCOUNTER → 2024-11-12 | Outpatient (CLI) | payer SELFPAY, OTHER ==
--- OUTSIDE RECORDS SUMMARY | 2024-11-06 02:56 | XMS RPT_ITS | CCD ---
Author Organization [facility] ion Partnership [facility] Care Team Providers Care Furnace Attendant Name Role Phone Padma Baker Unavailable Unavailable Roof JOSH, Trey Alvarado Unavailable Padma Baker Unavailable Unavailable Padma Baker Unavailable Unavailable Padma Baker Unavailable Unavailable César Merrill MD Primary Care Provider [phone] Dr. César Merrill Primary Care Provider Dr. César Merrill Referring Provider [phone] Dr. Evan Michael Attending Provider [phone] Dr. César Merrill Primary Care Provider Dr. César Merrill Referring Provider [phone] CONRADO Loera NP Attending Provider Dr. Evan Michael Attending Provider [phone] César Merrill MD Primary Care Provider [phone] César Merrill MD Primary Care Provider [phone] Dr. César Merrill Primary Care Provider Dr. César Merrill Referring Provider [phone] CONRADO Loera NP Attending Provider César Merrill MD Primary Care Provider [phone] César Merrill MD Primary Care Provider [phone] Dr. César Merrill Primary Care Provider Dr. César Merrill Referring Provider [phone] Jaskaran MITCHELL, STEPHEN Gonzalez Attending Provider Dilshad, Dr. Lindsey Admit Provider Dr. César Tijerina Referring Provider Dilshad, Dr. Lindsey Other Provider [phone] Sukhdev, Dr. Bowens Attending Provider Dr. Gogo Santizo Other Provider Dr. Lenore Robledo Attending Provider Dr. 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 Lindsey Primary Care Provider [phone] Dr. César Merrill MD Referring Provider Dr. London Tobar MD Attending Provider Sloane Villela Attending Provider Sloane Villela Referring Provider Dr. 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, Fartun Unavailable Arpit SHI Katarzyna Unavailable DESIRAE, CÉSAR A Primary Care Unavailable DESIRAE, CÉSAR A Referring Unavailable DESIRAE, CÉSAR A Primary Care Unavailable DESIRAE, CÉSAR A Attending Unavailable DESIRAE, CÉSAR A Primary Care Unavailable DESIRAE, CÉSAR A Referring Unavailable DESIRAE, CÉSAR A Referring Unavailable DESIRAE, CÉSAR A Primary Care Unavailable DESIRAE, CÉSAR A Referring Unavailable DESIRAE, CÉSAR A Primary Care Unavailable DESIRAE, CÉSAR A Attending Unavailable DESIRAE, CÉSAR A Referring Unavailable DESIRAE, CÉSAR A Primary Care Unavailable Trey Lane Attending Provider Sloane Rush Attending Unavailable Sloane Rush Referring Unavailable Desirae, César Primary Care Unavailable Desirae, César Primary Care Unavailable Lenny Taylor Attending Unavailable César Merrill Referring Unavailable César Merrill Referring Unavailable Sloane Rush Attending Unavailable César Merrill Primary Care Unavailable César Merrill Referring Unavailable London Tobar Attending Unavailable César Merrill Primary Care Unavailable César Merrill Primary Care Unavailable Trey Malagon NP Attending Unavailable César Merrill Referring Unavailable César Merrill Primary Care Unavailable Lenny Taylor Admitting Unavailable Lenny Taylor Attending Unavailable Allergies Allergy Classification Reported Allergen(s) Allergy Type Date of Onset Reaction(s) Facility (5 sources) rosuvastatin drug allergy 1 Rash [facility] Work Phone: (20 sources) metFORMIN; Translations: [METFORMIN] Drug Allergy 6 Diarrhea [facility] Work Phone: (20 sources) rosuvastatin; Translations: [ROSUVASTATIN CALCIUM] Drug Allergy 7 Other: See Comments [facility] Work Phone: (20 sources) valsartan; Translations: [VALSARTAN] Drug Allergy 5 Cough [facility] (20 sources) Zinc; Translations: [ZINC] Drug Allergy 5 Intolerance [facility] Work Phone: (7 sources) rosuvastatin Drug Allergy 2 [facility] (1 source) rosuvastatin Drug Allergy 5 [facility] Medications Current Medications Medication Drug Class(es) Dates Sig (Normalized) Sig (Original) Antiarthritic Combination No.2 (Glucosamine-Chondro itin) 900 mg tablet (7 sources) Start: 08-18-2017 take 1 tablet by mouth once daily Antiarthritic Combination No.2 (Glucosamine-Chondr oitin) 900 mg tablet Active 0 PO .q day August 18, 2017 11:43am 1 tablet PO .q day Start: 08-18-2017 End: 01-11-2022 take 1 tablet by mouth once daily Antiarthritic Combination No.2 (Glucosamine-Chondroitin) 900 mg tablet Discontinued 0 PO .q day 0 August 18, 2017 12:00am January 11, 2022 10:09am 1 tablet PO .q day Start: 08-18-2017 End: 01-11-2022 take 1 tablet by mouth once daily Antiarthritic Combination No.2 (Glucosamine-Chondroitin) 900 mg tablet Discontinued 0 PO .q day August 17, 2017 11:00pm January 11, 2022 9:09am 1 tablet PO .q day Start: 08-18-2017 End: 01-11-2022 take 1 tablet by mouth once daily Antiarthritic Combination No.2 (Glucosamine-Chondroitin) 900 mg tablet Discontinued 0 PO .q day August 18, 2017 12:00am January 11, 2022 10:09am 1 tablet PO .q day aspirin 81 mg chewable tablet (20 sources) Nonsteroidal Anti-inflammatory Drug Start: 07-10-2024 take 2 tablets by mouth once daily Aspirin (Manan Chewable Aspirin) 81 mg tablet,chewable Active 162 mg PO daily 60 0 July 10, 2024 12:00am Start: 08-18-2017 End: 04-12-2023 Aspirin (Adult Aspirin Regim en) 81 mg tablet,delayed release (DR/EC) Discontinued 162 mg PO daily August 18, 2017 12:00am April 12, 2023 9:10am Check with primary doctor Start: 08-26-2010 take 1 tablet by lobito th once daily ADULT ASPIRIN EC LOW STRENGTH 81 MG TBEC One tablet by mouth daily ASPIRIN [id number] Mirna Weeks Start: 08-26-2010 take 1 tablet by lobito th once daily ADULT ASPIRIN EC LOW STRENGTH 81 MG TBEC One tablet by mouth daily ASPIRIN [id number] Mirna Weeks Start: 08-26-2010 [facility] daily ASPIRIN 81 MG TABS Two tablets by mouth daily ASPIRIN [id number] Madie Kearney Start: 11-01-2006 take 1 tablet by lobito th in the morning Aspirin 81 mg ORAL Tab Take 81 mg by mouth. Take (2) tablets in the morning 0 11/01/2006 Active Start: 11-01-2006 take 2 tablets by mo [facility] once daily Aspirin 81 mg ORAL Tab 2 tablets daily 0 11/01/2006 Active Comment on above: 2 tablets daily Take 81 mg by mouth. Take (2) tablets in the morning atenolol 25 mg oral tablet (20 sources) beta-Adrenergic Lizandro Start: 02-11-2018 End: 10-15-2024 take 1 tablet by mouth once daily Atenolol 25 mg tablet Active 25 mg PO DAILY 90 October 15, 2024 4:54pm Start: 08-18-2017 End: 02-11-2018 take 1 tablet by mouth once daily Atenolol 50 mg tablet Discontinued 50 mg PO daily August 18, 2017 12:00am February 11, 2018 2:52pm Start: 08-26-2010 take 1 tablet by lobito th once daily ATENOLOL 50 MG TABS One tablet by mouth daily ATENOLOL [id number] Terry Barba MD Comment on above: Take 1 tablet by lobito th once daily. Per [facility] atorvastatin 40 mg oral tablet (7 sources) HMG-CoA Reductase Inhibitor Start: End: take 1 tablet by mouth once daily atorvastatin (LIPITOR) 40 mg tablet Take 1 tablet by mouth once daily. 30 tablet 2 10/14/2024 Active baclofen 20 mg oral tablet (20 sources) gamma-Aminobutyric Acid-ergic Agonist Start: End: take 1 tablet by mouth at bedtime Baclofen 20 mg tablet Active 20 mg PO AT BEDTIME January 30, 2021 12:00am Check with primary doctor Comment on above: Take 1 tablet by lobito th daily at bedtime. Berberine Chloride 500 mg capsule (3 sources) Start: Berberine Chloride 500 mg capsule Active mg PO August 29, 2024 12:00am cilostazol 50 mg oral tablet (3 sources) Phosphodiesterase 3 Inhibitor Start: take 1 tablet by mouth twice daily Cilostazol 50 mg tablet Active 50 mg PO TWICE A DAY 60 1 August 29, 2024 12:00am clopidogrel 75 mg oral tablet (2 sources) P2Y12 Platelet Inhibitor Start: take 1 tablet by mouth once daily Clopidogrel (Plavix) 75 mg tablet Active 75 mg PO DAILY 180 0 October 09, 2024 12:00am dapagliflozin 5 mg oral tablet (7 sources) Sodium-Glucose Cotransporter 2 Inhibitor Start: take 1 tablet by mouth once daily at breakfast dapagliflozin propanediol (FARXIGA) 5 mg tablet Take 1 tablet by mouth daily with breakfast. 30 tablet 2 07/30/2024 Active doxycycline hyclate 100 mg oral tablet (1 source) Tetracycline-class Drug Start: End: take 1 tablet by mouth twice daily doxycycline (VIBRA-TABS) 100 mg tablet Indications: URI, acute Take 1 tablet by mouth two times a day for 7 days. 14 tablet 06/10/2024 06/17/2024 Active gabapentin 100 mg oral capsule (20 sources) Anti-epileptic Agent Start: End: take 1 capsule by mouth at bedtime Gabapentin 100 mg capsule Active 100 mg PO AT BEDTIME July 21, 2021 12:00am Comment on above: Take 1 capsule by [facility] daily at bedtime for 180 days. For leg cramps MEDICATION, NON-DATABASE (8 sources) take 2 capsules by mouth twice daily MEDICATION, NON-DATABASE Take 2 capsules by mouth two times a day. CURALIN BLOOD SUGAR SUPPORT Active Multivitamin preparation (4 sources) Start: take 1 tablet by mouth once daily Multivitamin Active 1 TABLET PO daily August 18, 2017 11:43am Start: 08-18-2017 End: 01-11-2022 take 1 tablet by mouth once daily Multivitamin Discontinued 1 TABLET PO daily August 17, 2017 11:00pm January 11, 2022 9:10am Start: 08-18-2017 End: 01-11-2022 take 1 tablet by mouth once daily Multivitamin Discontinued 1 TABLET PO daily August 18, 2017 12:00am January 11, 2022 10:10am pioglitazone 45 mg oral tablet (20 sources) Peroxisome Proliferator Receptor alpha Agonist, Peroxisome Proliferator Receptor gamma Agonist, Thiazolidinedione Start: 05-20-2021 End: 03-09-2025 take 1 tablet by mouth once daily Pioglitazone 45 mg tablet Active 45 mg PO DAILY July 21, 2021 12:00am Start: 11-09-2020 End: 05-20-2021 take 1 tablet by mouth once daily pioglitazone (ACTOS) 30 mg tablet Take 1 tablet by mouth once daily. 30 tablet 5 11/09/2020 05/20/2021 Discontinued Comment on above: Take 1 tablet by lobito once daily. saw/vit E/sod indu/lyc/beta/pyg (PROSTATE HEALTH ORAL) (8 sources) take 1 capsule by mouth twice daily saw/vit E/sod indu/lyc/beta/pyg (PROSTATE HEALTH ORAL) Take 1 capsule by mouth two times a day. Active tamsulosin hydrochloride 0.4 mg oral capsule (20 sources) alpha-Adrenergic Lizandro Start: 10-28-19 End: 03-09-20 take 1 capsule by mouth at bedtime Tamsulosin 0.4 mg capsule Active 0.4 mg PO AT BEDTIME January 30, 2021 12:00am Check with primary doctor Comment on above: Take 1 capsule by mo ut daily at bedtime. Bringing good RX coupon. terbinafine 250 mg oral tablet (8 sources) Allylamine Antifungal Start: 05-13-19 take 1 tablet by mouth once terbinafine HCl (LAMISIL) 250 mg tablet Take 1 tablet by mouth every afternoon. 05/13/2024 Active vitamin b12 1 mg extended release oral tablet (20 sources) Vitamin B12 Start: 07-26-19 take 1 tablet by mouth once daily Cyanocobalamin 1,000 mcg TbER Take 1 tablet by mouth once daily. 07/25/2024 Active Start: 09-14-2023 End: 07-25-2024 take 1.5 tablets by mouth once daily Cyanocobalamin 1,000 mcg TbER Take 1.5 tablets by mouth once daily. 09/14/2023 07/25/2024 Discontinued (Adjust Sig - Block E-Cancel) Start: 09-13-2023 End: 07-10-2024 take 1 tablet by mouth once daily Cyanocobalamin (Vitamin B-12) 2,500 mcg tablet Discontinued 2500 ug PO DAILY September 13, 2023 12:00am July 10, 2024 9:31am Start: 08-16-2023 End: 09-14-2023 take 1 tablet by mouth once daily Cyanocobalamin 1,000 mcg TbER Take 1 tablet by mouth once daily. 0 08/16/2023 09/14/2023 Discontinued (Adjust Sig - Block E-Cancel) Start: 08-18-2017 End: 08-20-2017 take 1 tablet by mouth once daily Cyanocobalamin (Vitamin B-12) (Vitamin B-12) 100 mcg tablet Discontinued 100 ug PO daily August 18, 2017 12:00am August 20, 2017 11:40am Start: 07-19-2015 take 1 tablet by lobito th once daily VITAMIN B-12 100 MCG TABS One tablet by mouth daily CYANOCOBALAMIN [id number] Terry Barba MD Comment on above: Take 1 tablet by lobito th once daily. Completed/Discontinued Medications Medication Drug Class(es) Dates Sig (Normalized) Sig (Original) acetaminophen 325 mg / HYDROcodone bitartrate 5 mg oral tablet (6 sources) Opioid Agonist Start: 04-12-2023 End: 09-13-2023 Hydrocodone-Acetami nophen 5-325 mg tablet Discontinued 1 {tbl} PO EVERY 6 HOURS 28 7 0 April 12, 2023 September 13, 2023 10:21am Spinal stenosis of lumbar region Spinal stenosis, lumbar region without neurogenic claudication Start: 04-12-2023 take 1 tablet by lobito th every six hours Hydrocodone-Acetaminophen Active 1 TABLE T PO EVERY 6 HOURS 28 7 April 12, 2023 Comment on above: Take 1 tablet by lobito th every 6 hours. for 7 days azithromycin 250 mg oral tablet (1 source) Macrolide Antimicrobial Start: End: azithromycin (ZITHROMAX Z-MARKUS) 250 mg tablet Indications: Pneumonia due to COVID-19 virus Take 2 tablets day one, then, 1 tablet daily until gone. 6 tablet 02/11/2021 02/16/2021 cholecalciferol 0.125 mg oral tablet (20 sources) Vitamin D Start: 022 End: take 1 tablet by mouth twice daily Cholecalciferol (Vitamin D3) 125 mcg (5,000 unit) tablet Discontinued 5000 U PO TWICE A DAY January 11, 2022 10:05am July 10, 2024 9:31am Start: 07-21-2021 End: 01-11-2022 take 1 tablet by mouth once daily Cholecalciferol (Vitamin D3) 125 mcg (5,000 unit) tablet Discontinued 250 ug PO DAILY July 21, 2021 12:00am January 11, 2022 10:13am Start: 08-18-2017 End: 07-21-2021 take 1 tablet by mouth once daily Cholecalciferol (Vitamin D3) 2,000 unit tablet Discontinued 2000 U PO daily August 18, 2017 12:00am July 21, 2021 8:50am Start: 07-19-2015 take 1 tablet by lobito th once daily VITAMIN D 2000 UNIT TABS One tablet by mouth daily CHOLECALCIFEROL [id number] Terry Barba MD chondroitin sulfates 400 mg / glucosamine hydrochloride 500 mg oral capsule (11 sources) Start: 12-11-2016 End: 11-15-2021 take 1 capsule by mouth twice daily [facility]-Mn (GLUCOSAMINE CHONDROITIN MAXSTR) 500-400 mg cap Take 1 capsule by mouth twice daily. 12/11/2016 11/15/2021 Discontinued (Discontinued by Patient) Start: 08-26-2010 take 1 tablet by lobito th once daily GLUCOSAMINE-CHONDROITIN CAPS One tablet by mouth daily GLUCOSAMINE-CHONDROITIN CAPS [id number] Madie Kearney Start: 08-26-2010 take 1 tablet by lobito th once daily GLUCOSAMINE-CHONDROITIN CAPS One tablet by mouth daily GLUCOSAMINE-CHONDROITIN CAPS [id number] Madie Kearney Start: 08-26-2010 take 1 tablet by lobito th once daily GLUCOSAMINE-CHONDROITIN CAPS One tablet by mouth daily GLUCOSAMINE-CHONDROITIN CAPS [id number] Madie Kearney Comment on above: Take 1 capsule by mo ut twice daily. cinnamon bark 500 mg oral capsule (9 sources) Start: 11-24-2014 End: 11-15-2021 Cinnamon Bark (CINNAMON) 500 mg cap Take 500 mg by mouth. 0 11/24/2014 11/15/2021 Discontinued (Discontinued by Patient) Comment on above: Take 500 mg by mouth . ERGOCALCIFEROL, VITAMIN D2, (VITAMIN D2 ORAL) (20 sources) End: 07-24-2024 ERGOCALCIFEROL, VITAMIN D2, (VITAMIN D2 ORAL) Take 2,000 Units by mouth. 07/24/2024 Discontinued (Discontinued by Patient) ERGOCALCIFEROL, VITAMIN D2, (VITAMIN D2 ORAL) Take 2,000 Units by mouth. Active ERGOCALCIFEROL, VITAMIN D2, (VITAMIN D2 ORAL) Take 2,000 Units by mouth. 0 Active Comment on above: Take 2,000 Units by mouth. flurbiprofen 100 mg oral tablet (20 sources) Nonsteroidal Anti-inflammatory Drug Start: End: 4 take 1 tablet by mouth twice daily Flurbiprofen 100 mg tablet Discontinued 100 mg PO TWICE A DAY January 11, 2022 12:00am April 12, 2023 9:10am Start: 08-26-2010 take 1 tablet by lobito th twice daily FLURBIPROFEN 100 MG TABS One tablet by mouth twice daily FLURBIPROFEN [id number] Madie Kearney Comment on above: TAKE ONE TABLET BY M OUTH TWICE DAILY FOR ARTHRITIS TAKE ONE TABLET BY M OUTH TWICE DAILY FOR ARTHRITIS, as needed folic acid 1 mg oral tablet (10 sources) Start: 1 End: 2 take 2 tablets by mouth once daily FOLIC ACID 1 MG TABS Two tablets by mouth daily FOLIC ACID [id number] Ray Guajardo MD glimepiride 4 mg oral tablet (20 sources) Sulfonylurea Start: 2 End: 2 take 1 tablet by mouth once daily Glimepiride 4 mg tablet Discontinued 4 mg PO DAILY July 21, 2021 12:00am January 11, 2022 10:13am Start: 05-20-2021 End: 01-20-2025 take 1 tablet by mouth twice daily Glimepiride 4 mg tablet Active 4 mg PO TWICE A DAY January 11, 2022 10:06am Start: 10-27-2020 End: 05-12-2021 take 1 tablet by mouth once daily at breakfast glimepiride (AMARYL) 4 mg tablet Take 1 tablet by mouth daily with breakfast. 90 tablet 1 10/27/2020 05/12/2021 Discontinued Start: 01-29-2017 take 1 tablet by lobito th once daily GLIMEPIRIDE 4 MG TABS One tablet by mouth daily GLIMEPIRIDE [id number] Terry Barba MD Comment on above: Take 1 tablet by lobito th twice daily with meals. Take 1 tablet by lobito th two times a day with meals. Cywwrygrujc-Lpgynhhvw-Qru C-Mn (GLUCOSAMINE CHONDROITIN MAXSTR) 500-400 mg cap (3 sources) Start: 2016 take 1 capsule by mouth twice daily Phlsjnmgcih-Mpgobnrno-Gs t C-Mn (GLUCOSAMINE CHONDROITIN MAXSTR) 500-400 mg cap Take 1 capsule by mouth twice daily. 0 12/11/2016 Active Comment on above: Take 1 capsule by mo [facility] twice daily. hydroCHLOROthiazide 12.5 mg oral tablet (20 sources) Thiazide Diuretic Start: 2019 End: 2021 take 1 tablet by mouth once daily Hydrochlorothiazide 12.5 mg tablet Discontinued 12.5 mg PO DAILY 90 September 29, 2020 1:12pm January 11, 2022 10:09am hydroCHLOROthiazide 12.5 mg / losartan potassium 50 mg oral tablet (20 sources) Thiazide Diuretic, Angiotensin 2 Receptor Lizandro Start: 2021 End: 2022 take 1 tablet by mouth once daily Losartan-Hydrochlorothia zide Active 1 TABLET PO DAILY July 04, 2022 9:34am Start: 08-18-2017 End: 05-28-2019 take 1 tablet by mouth once daily Losartan-Hydrochlorothiazide Discontinue d 1 TABLET PO daily November 25, 2018 1:02pm May 26, 2019 1:57pm Start: 08-26-2010 End: 03-09-2025 Losartan-Hydrochlorothiazide 50-12.5 mg tablet Discontinued 1 {tbl} PO DAILY July 21, 2021 12:00am July 04, 2022 10:34am Comment on above: Take 1 tablet by [facility] once daily. 200 actuat ipratropium bromide 0.017 mg/actuat metered dose inhaler (4 sources) Anticholinergic Start: 04-14-2023 End: 07-10-2024 Ipratropium Bard (Atrovent Hfa) 17 mcg/actuation HFA aerosol inhaler Discontinued 1 NMA INHALATION EVERY 6 HOURS as needed for shortness of breath or wheezing 12.9 1 April 14, 2023 1:00am July 10, 2024 9:31am with a spacer Start: 04-14-2023 Ipratropium Br omide (Atrovent Hfa) 17 mcg/actuation HFA aerosol inhaler Active 1 INH INHALATION EVERY 6 HOURS 12.9 April 14, 2023 12:00am with a spacer losartan potassium 50 mg oral tablet (20 sources) Angiotensin 2 Receptor Lizandro Start: 05-28-2019 End: 01-11-2022 take 1 tablet by mouth once daily Losartan 50 mg tablet Discontinued 50 mg PO DAILY 90 May 20, 2021 10:32am January 11, 2022 10:09am Start: 08-26-2010 take 1 tablet by lobito th once daily COZAAR 25 MG TABS One tablet by mouth daily LOSARTAN POTASSIUM [id number] Rayna Jessica PA-C 24 hr metFORMIN hydrochloride 500 mg extended release oral tablet (20 sources) Biguanide Start: 02-05-2023 End: 07-24-2024 metFORMIN ER (GLUCOPHAGE XR) 500 mg 24 hr tablet Take 2 in the morning with breakfast and two in the evening. 120 tablet 5 02/14/2024 07/24/2024 Discontinued (Adverse Reaction) Start: 01-11-2022 End: 07-10-2024 Metformin 500 mg tablet exte nded release 24 hr Discontinued 1000 mg PO TWICE A DAY January 11, 2022 12:00am July 10, 2024 9:32am Start: 01-11-2022 take 1000 mg by mout h twice daily Metformin Active 1000 MG PO TWICE A DAY January 10, 2022 11:00pm Start: 02-07-2021 End: 11-10-2022 metFORMIN ER (GLUCOPHAGE XR) 500 mg 24 hr tablet Take 2 in the morning with breakfast and two in the evening. 120 tablet 5 02/07/2021 08/09/2021 Discontinued Start: 08-18-2017 End: 01-11-2022 take 2 tablets by mouth twice daily Metformin 500 mg tablet Discontinued 1000 mg PO TWICE A DAY August 18, 2017 12:00am January 11, 2022 10:08am Check with primary doctor Start: 08-18-2017 End: 01-11-2022 take 1000 mg by mouth twice daily Metformin Discontinued 1000 MG PO TWICE A DAY August 17, 2017 11:00pm January 11, 2022 9:08am Start: 01-29-2017 take 1 tablet by lobito th twice daily METFORMIN HCL 500 MG TABS One tablet by mouth twice daily METFORMIN HCL [id number] Terry Barba MD Comment on above: Take 2 in the mornin g with breakfast and two in the evening. MULTIPLE VITAMIN (2 sources) Start: 08-26-2010 take 1 tablet by mouth once daily MULTIVITAMINS TABS One tablet by mouth daily MULTIPLE VITAMIN [id number] Madie Kearney MULTIPLE VITAMIN (3 sources) Start: 08-26-2010 take 1 tablet by mouth once daily MULTIVITAMINS TABS One tablet by mouth daily MULTIPLE VITAMIN [id number] Madie Kearney Start: 08-26-2010 take 1 tablet by lobito th once daily MULTIVITAMINS TABS One tablet by mouth daily MULTIPLE VITAMIN [id number] Madie Kearney Multivitamin tablet (3 sources) Start: 08-18-2017 End: 01-11-2022 Multivitamin tablet Discontinued 1 {tbl} PO daily August 18, 2017 12:00am January 11, 2022 10:10am Jnrecdaqprcbc-Cdzrewlu-E utein (CENTRUM SILVER) Tab (9 sources) Start: 10-21-2012 End: 11-15-2021 take 1 tablet by mouth once daily Multivitamins-Minerals- Lutein (CENTRUM SILVER) Tab Take 1 tablet by mouth once daily. 1 tablet 0 10/21/2012 11/15/2021 Discontinued (Discontinued by Patient) Start: 10-21-2012 take 1 tablet by lobito th once daily Lmtiofubduwel-Sroiopxx-Ilkbqx (CENTRUM SILVER) Tab Take 1 tablet by mouth once daily. 1 tablet 0 10/21/2012 Active Comment on above: Take 1 tablet by lobito th once daily. nitroglycerin 0.4 mg sublingual tablet (20 sources) Nitrate Vasodilator Start: 08-18-2017 End: 08-08-2023 Nitroglycerin 0.4 mg tablet, sublingual Discontinued 0.4 mg SL every 5 to 15 minutes as needed for chest pain 25 April 08, 2018 3:30pm November 04, 2018 2:20pm Start: 08-26-2010 NITROSTAT 0.4 MG SUBL 1 tablet under tongue every 5 min up to 3 X NITROGLYCERIN [id number] Ray Guajardo MD Comment on above: Dissolve 1 tablet un clayton the tongue as directed. EVERY 5 MIN X3 orphenadrine citrate 100 mg oral tablet (5 sources) Muscle Relaxant Start: 1 take 1 tablet by mouth at bedtime NORFLEX SOLN 100mg, One tablet by mouth at bedtime. ORPHENADRINE CITRATE SOLN [id number] Madie Kearney predniSONE 10 mg oral tablet (4 sources) Start: 3 End: 4 Prednisone 10 mg tablet Discontinued 10 mg PO DAILY 30 0 April 14, 2023 1:00am September 13, 2023 10:21am Take 4 tablets x 3 days, 3 tablets x 3 days, 2 tablets x 3 days, 1 tablet x 3 days and then stop simvastatin 80 mg oral tablet (20 sources) HMG-CoA Reductase Inhibitor Start: 1 End: 4 take 1 tablet by mouth at bedtime Simvastatin 80 mg tablet Discontinued 80 mg PO AT BEDTIME 90 3 October 11, 2022 10:05am January 03, 2024 12:32pm Comment on above: Take 1 tablet by lobito th daily at bedtime. Per Dr. Barba Problems Active Problems Problem Classification Problem Date Documented Date Episodic/Chronic Abdominal pain (2 sources) Generalized abdominal pain; Translations: [Generalized abdominal pain] Episodic Administrative/social admission (20 sources) Advance directive discussed with patient; Translations: [Other specified counseling] Onset: 11-15-2021 Episodic Cardiac dysrhythmias (13 sources) ECG: sinus tachycardia; Translations: [Tachycardia, unspecified] Onset: 10-29-2024 01-26-2021 Episodic Conduction disorders (6 sources) First degree atrioventricular block; Translations: [Atrioventricular block, first degree] Onset: 10-29-2024 04-13-2023 Chronic Coronary atherosclerosis and other heart disease (20 sources) Coronary arteriosclerosis; Translations: [Atherosclerotic heart disease of [place] coronary artery without angina pectoris] Onset: 05-02-2007 Resolved: 01-25-2015 01-25-2015 Chronic Comment on above: 08/01/1997 Deficiency and other anemia (1 source) Anemia; Translations: [Anemia, unspecified] 08-09-2023 Episodic Diabetes mellitus with complications (7 sources) Hyperglycemia due to type 2 diabetes mellitus; Translations: [Type 2 diabetes mellitus with hyperglycemia] 01-26-2021 Chronic Diabetes mellitus without complication (20 sources) Type 2 diabetes mellitus without complications; Translations: [Type 2 diabetes mellitus without complication] Onset: 01-29-2017 01-29-2017 Chronic Disorders of lipid metabolism (20 sources) Hyperlipidemia; Translations: [Mixed hyperlipidemia] Onset: 11-07-2005 08-26-2010 Chronic Essential hypertension (20 sources) Hypertensive disorder; Translations: [Essential hypertension] Onset: 08-26-2010 08-26-2010 Chronic Comment on above: CONTROLLED WITH MED Heart valve disorders (20 sources) Mitral valve prolapse; Translations: [Mitral valve regurgitation] Onset: 08-26-2010 Resolved: 01-25-2015 07-12-2016 Chronic Comment on above: per echo 05/24/2011 Hyperplasia of prostate (20 sources) Urinary frequency due to benign prostatic hypertrophy; Translations: [Benign prostatic hyperplasia with lower urinary tract symptoms] Onset: 12-11-2016 10-27-2020 Chronic Osteoarthritis (20 sources) Osteoarthritis; Translations: [Unspecified osteoarthritis, unspecified site] Onset: 06-16-2005 10-27-2020 Chronic Other circulatory disease (6 sources) Peripheral arterial occlusive disease; Translations: [Disorder of arteries and arterioles, unspecified] 09-02-2024 Chronic Comment on above: Arterial study from [facility] 08/21/24:R WILMA 0.25 with monophasic waveformsL WILMA 0.11 with monophasic PT waveform, absent DP waveform Other circulatory disease (1 source) Disorder of arteries and arterioles, unspecified; Translations: [Disorder of arteries and arterioles, unspecified] Onset: 08-29-2024 Chronic Other circulatory disease (2 sources) Abnormal peripheral pulse; Translations: [Other specified symptoms and signs involving the circulatory and respiratory systems] 07-24-2024 Episodic Other circulatory disease (1 source) Other specified symptoms and signs involving the circulatory and respiratory systems; Translations: [Diminished pulses in lower extremity] Onset: 08-21-2024 Episodic Other connective tissue disease (20 sources) Cramp in lower limb; Translations: [Sleep related leg cramps] Onset: 02-22-2018 02-22-2018 Chronic Other connective tissue disease (1 source) Sleep related leg cramps; Translations: [Nocturnal leg cramps] Onset: 02-22-2018 Chronic Other lower respiratory disease (6 sources) Dyspnea on exertion; Translations: [Other forms of dyspnea] 01-11-2022 Episodic Other lower respiratory disease (2 sources) Other forms of dyspnea; Translations: [Other respiratory abnormalities] Episodic Other lower respiratory disease (1 source) Hypoxemia; Translations: [Hypoxemia] 04-19-2023 Episodic Other lower respiratory disease (4 sources) Hypoxia; Translations: [Hypoxemia] 04-13-2023 Episodic Other lower respiratory disease (2 sources) Cyanosis; Translations: [Cyanosis] 07-24-2024 Episodic Other lower respiratory disease (1 source) Cyanosis; Translations: [Cyanosis] Onset: 08-21-2024 Episodic Other nutritional; endocrine; and metabolic disorders (5 sources) Body mass index (BMI) 36.0-36.9, adult; Translations: [Body mass index (BMI) 36.0-36.9, adult] Onset: 01-14-2013 01-14-2013 Chronic Other nutritional; endocrine; and metabolic disorders (1 source) Hypercalcemia; Translations: [Hypercalcemia] Chronic Other upper respiratory infections (1 source) Acute upper respiratory infection; Translations: [Acute upper respiratory infection, unspecified] 06-10-2024 Episodic Peripheral and visceral atherosclerosis (10 sources) Peripheral vascular disease; Translations: [Peripheral vascular disease, unspecified] Onset: 08-22-2024 08-22-2024 Chronic Comment on above: CTA images reviewed, bilateral common iliac densely calcified plaque, left with 90% stenosis, right appears occluded; bilateral common femoral densely calcified plaque both appear occluded Residual codes; unclassified (20 sources) Obstructive sleep apnea syndrome; Translations: [Obstructive sleep apnea (adult) (pediatric)] Onset: 12-19-2012 12-11-2016 Chronic Residual codes; unclassified (1 source) Obstructive sleep apnea (adult) (pediatric); Translations: [KARLA (obstructive sleep apnea)] Onset: 12-11-2016 Chronic Respiratory failure; insufficiency; arrest (adult) (7 sources) Acute respiratory failure; Translations: [Acute respiratory failure with hypoxia] 01-26-2021 Episodic Screening and history of mental health and substance abuse codes (20 sources) Ex-smoker; Translations: [Personal history of nicotine dependence] Onset: 12-11-2016 02-25-2019 Episodic Spondylosis; intervertebral disc disorders; other back problems (5 sources) Spinal stenosis of lumbar region; Translations: [Spinal stenosis, lumbar region without neurogenic claudication] 04-12-2023 Episodic Unclassified (2 sources) Placement of stent in coronary artery ; Translations: [Presence of coronary angioplasty implant and graft] Onset: 08-26-2010 01-25-2015 Unclassified (3 sources) Long-term drug therapy; Translations: [Other terminal worker (current) drug therapy] Onset: 08-26-2010 08-26-2010 Viral infection (16 sources) Disease caused by 2019-nCoV; Translations: [COVID-19] Onset: 01-18-2021 01-18-2021 Episodic Past or Other Problems Problem Classification Problem Date Documented Da te Episodic/Chronic Coronary atherosclerosis and other heart disease (20 sources) Coronary angioplasty status; Translations: [History of myocardial infarction] Onset: 07-29-1997 08-26-2010 Episodic Comment on above: 08/01/1997 PTCA and DE S to mid RCA per Dr. Tobar @ [facility] Genitourinary symptoms and ill-defined conditions (20 sources) Increased frequency of urination; Translations: [Frequency of micturition] Onset: 10-27-2019 10-27-2019 Episodic Immunizations and screening for infectious disease (3 sources) Vaccination needed; Translations: [Encounter for immunization] Onset: 02-14-2024 02-14-2024 Episodic Nutritional deficiencies (19 sources) Cobalamin deficiency; Translations: [Deficiency of other specified B group vitamins] Onset: 08-16-2023 08-16-2023 Episodic Other aftercare (2 sources) Other terminal worker (current) drug therapy; Translations: [Other alf (current) drug therapy] Onset: 08-26-2010 08-26-2010 Episodic Other circulatory disease (2 sources) History of myocardial infarction; Translations: [Old myocardial infarction] Onset: 01-25-2015 01-25-2015 Episodic Other infections; including parasitic (20 sources) Personal history of other infectious and parasitic diseases; Translations: [History of COVID-19] Onset: 01-18-2021 11-15-2021 Episodic Other lower respiratory disease (1 source) Hypoxemia; Translations: [Hypoxemia] 04-14-2023 Episodic Other male genital disorders (20 sources) Phimosis; Translations: [Phimosis] Onset: 12-11-2016 08-14-2017 Episodic Other male genital disorders (20 sources) Disorder of prostate; Translations: [Disorder of prostate, unspecified] Onset: 12-11-2016 12-11-2016 Episodic Other screening for suspected conditions (not mental disorders or infectious disease) (20 sources) Patient encounter status; Translations: [Encounter for screening for malignant neoplasm of colon] Onset: 12-11-2016 12-11-2016 Episodic Residual codes; unclassified (20 sources) Active living will ; Translations: [Other specified health status] Onset: 11-15-2021 Episodic Unclassified (10 sources) Family history of ischemic heart disease and other diseases of the circulatory system; Translations: [Family history of ischemic heart disease and other diseases of the circulatory system] Resolved: 01-25-2015 01-25-2015 Episodic Results Test Name Value Interpretation Reference Range Facility Cardiology Visit Reporton Cardiology Visit Report [facility] [address] [place] [address] OFFICE VISIT Date of Service: 10/29/24 MR#: [id number] Acct: [id number] Name: KATHARINE CANO Rep #: [id number] : 1945 Provider: CONRADO moyer Age/Sex: 79/M Location: [facility] Status: Signed HPI HPI History of Present Illness Details: Patient is a very pleasant 79-year-old Orthodox white male that comes in today for monitoring of his cardiovascular status. Patient is 26 years out from a PCI of the right coronary [place] [address] Tobar. He also has a history of hyperlipidemia and hypertension. He is also a type II diabetic. He is currently in follow-up with vascular team for peripheral arterial disease. He denies chest, arm, jaw, or neck discomfort. He denies palpitations. He acknowledges bilateral lower extreme edema and claudication. He acknowledges shortness breath with activity during increased walking. He denies shortness of breath at rest, cough, orthopnea, or PND. He denies lightheadedness, dizziness, near-syncope, syncope, weakness, or fatigue. Intake Vital Signs 07/10/24 09:30 10/29/24 10:29 10/29/24 10:42 Height 5 ft 6 in 5 ft 6 in Weight: 231 lb BMI 37.3 BP 158/68 H 149/70 H Blood Pressure Location Rt brachial Lt brachial Position Sitting Sitting Respiration 18 Pulse 60 60 Pulse Source NIBP NIBP Intake Visit Reasons: Surgical Clearance (See Note) [employer] Practitioner Required: No Accompanied by: Is patient in pain?: No Allergies rosuvastatin (From Crestor) Allergy (Intermediate, Verified 10/29/24 10:35) Rash Medications ???Medication ???Instructions ???Recorded ???Confirmed ???Type nitroglycerin 0.4 mg sublingual 0.4 mg sublingual Q5-15M PRN chest 11/04/18 10/29/24 Rx tablet pain #25 tabs baclofen 20 mg tablet 20 mg PO QHS Check with primary 10/29/24 History doctor tamsulosin 0.4 mg capsule 0.4 mg PO QHS Check with primary 1 10/29/24 History doctor gabapentin 100 mg capsule 100 mg PO QHS 07/21/21 10/29/24 Hi story pioglitazone 45 mg tablet 45 mg PO DAILY 07/21/21 10/29/24 H istory glimepiride 4 mg tablet 4 mg PO BID 01/11/22 10/29/24 Hist ory losartan 50 mg-hydrochlorothiazid e 1 tab PO DAILY #90 tabs 01/03/24 10/29/24 Rx 12.5 mg tablet simvastatin 80 mg tablet 80 mg PO QHS #90 TABLETS 01/03/24 10/29/24 Rx aspirin 81 mg chewable tablet 162 mg (2 x 81 mg) PO QDAY #60 tab s 07/10/24 10/29/24 Rx (Manan Chewable Low Dose Aspirin) berberine chloride 500 mg capsule mg PO 08/29/24 10/29/24 History cilostazol 50 mg tablet 50 mg PO BID #60 tabs 08/29/2406/24 Rx clopidogrel 75 mg tablet (Plavix) 75 mg PO DAILY #180 tabs 10/09/24 10/29/24 Rx atenolol 25 mg tablet 25 mg PO DAILY #90 tabs 10/15/24 0 10/29/24 Rx Ejection fraction %: 60 Have you fallen in the past year?: No PFSH Medical History Wears hearing aid Wears glasses Wears dentures Diabetes Prostate disease High cholesterol Back pain Dietary restriction Former smoker Shortness of breath on exertion Leg cramps History of edema History of stress test History of echocardiogram Cardiology follow-up encounter History of rheumatic fever Essential hypertension Arthritis CPAP (continuous positive airway pressure) dependence Acute and chronic respiratory failure with hypoxia Hyperlipidemia Nonrheumatic mitral (valve) prolapse History of anterior wall myocardial infarction Stented coronary artery ( 08/01/97) 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 Sister , age 57 of renal cancer Renal cancer Social History household members: spouse Smoking Status: Former smoker alcohol intake: current alcohol intake frequency: other substance use type: does not use ROS Const Const: Negative for fatigue or weakness Eyes Eyes: Negative for change in vision ENT ENT: Negative for dizziness or balance problems Cardio Chest Pain: No Palpitations: No Edema: Bilateral Muscle aches with walking: Bilateral Resp Respiratory: Positive for SOB with activity (Only with increased walking); Negative for SOB at rest or SOB orthopne (more content not included)... Normal [facility] MR/BMSAllie 10-09-2024 MR/BMSKAREN [facility] Vascular Surgery [address] [place] [address]. [address] [place] [address] OFFICE VISIT Date of Service: 10/09/24 MR#: [id number] Acct: [id number] Name: JEROME,KATHARINE Galvin Rep #: [id number] : 1945 Provider: Dr. Lenny Taylor MD Age/Sex: 79/M Location: [facility] Status: Signed Intake Vital Signs 07/10/24 09:30 10/09/24 15:06 Height 5 ft 6 in Weight: 232 lb 233 lb BMI 37.4 BP 142/65 H 143/70 H Blood Pressure Location Rt brachial Lt brachial Position Sitting Sitting Respiration 18 16 Pulse 55 L 83 Pulse Source Monitor Monitor Temp 98.2 F Temp Source Temporal Pulse Oximetry (%) 92 93 Oxygen Delivery Method room air room air Intake Visit Reasons: Discuss CTA Is patient in pain?: No Allergies rosuvastatin (From Crestor) Allergy (Intermediate, Verified 10/09/24 15:08) Rash Medications ???Medication ???Instructions ???Recorded ???Confirmed ???Type nitroglycerin 0.4 mg sublingual 0.4 mg sublingual Q5-15M PRN chest 11/04/18 10/09/24 Rx tablet pain #25 tabs baclofen 20 mg tablet 20 mg PO QHS Check with primary 10/09/24 History doctor tamsulosin 0.4 mg capsule 0.4 mg PO QHS Check with primary 1 10/09/24 History doctor gabapentin 100 mg capsule 100 mg PO QHS 07/21/21 10/09/24 Hi story pioglitazone 45 mg tablet 45 mg PO DAILY 07/21/21 10/09/24 H istory glimepiride 4 mg tablet 4 mg PO BID 01/11/22 10/09/24 Hist ory atenolol 25 mg tablet 25 mg PO DAILY #90 tabs 09/26/23 0 10/09/24 Rx losartan 50 mg-hydrochlorothiazid e 1 tab PO DAILY #90 tabs 01/03/24 10/09/24 Rx 12.5 mg tablet simvastatin 80 mg tablet 80 mg PO QHS #90 TABLETS 01/03/24 10/09/24 Rx aspirin 81 mg chewable tablet 162 mg (2 x 81 mg) PO QDAY #60 tab s 07/10/24 10/09/24 Rx (Manan Chewable Low Dose Aspirin) berberine chloride 500 mg capsule mg PO 08/29/24 10/09/24 History cilostazol 50 mg tablet 50 mg PO BID #60 tabs 08/29/2404/23 Rx Have you fallen in the past year?: No PFSH Medical History Wears hearing aid Wears glasses Wears dentures Diabetes Prostate disease High cholesterol Back pain Dietary restriction Former smoker Shortness of breath on exertion Leg cramps History of edema History of stress test History of echocardiogram Cardiology follow-up encounter History of rheumatic fever Essential hypertension Arthritis CPAP (continuous positive airway pressure) dependence Acute and chronic respiratory failure with hypoxia Hyperlipidemia Nonrheumatic mitral (valve) prolapse History of anterior wall myocardial infarction Stented coronary artery ( 08/01/97) 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 Sister , age 57 of renal cancer Renal cancer Social History household members: spouse Smoking Status: Former smoker alcohol intake: current alcohol intake frequency: other substance use type: does not use HPI HPI HPI: KATHARINE CANO, is a 79 M who presents to the office today for follow up of bilateral lower extremity critical arterial insufficiency with nocturnal rest pain, bilateral buttock claudication. He has had his CTA and is here to discuss options. His rest pain has improved with pletal but still present, no new wounds, left tam wound improved. ROS General General: No weight change, appetite, fatigue, colon cancer, breast cancer or weakness HEENT HEENT: No difficulty swallowing, eye injury, eye surgery, swollen glands or hoarseness Endo Endocrine: Yes diabetes mellitus; No thyroid disease, thyroid cancer, Hair loss, heat intolerance or cold intolerance Skin Skin: No rash or changing moles Musc Musculoskeletal: Yes back problems and arthritis; No rheumatoid arthritis, gout or joint pain Cardio Cardiovascular: Yes heart stent; No murmur, pacemaker, heart disease, atrial fibrillation, high blood pressure, heart attack, palpitations, shortness of breath with exertion or chest pain Psych Psychiatric: No depression, anxiety or hearing voices Resp Respiratory: Yes shortness of breath, Yes sleep apnea, No cough, No COPD, No asthma, No emphysema (more content not included)... Normal [facility] CREATININE FINGERSTICKon Creatinine [Mass/Vol] 1.4 mg/dL High 0.70-1.30 [facility] Comment on above: Performed By: #### L 9100.0200 #### [facility] [address] [place], [address] GFR/1.73 sq M.predicted among non-blacks MDRD (S/P/Bld) [Vol rate/Area] 51.0000 mL/min/{1.73_m2} Low >60 [facility] Comment on above: Performed By: #### L 9100.0200 #### [facility] [address] [place], [address] CTA Abd w/Runoff W/WO Contra ston 10-03-2024 CTA Abd w/Runoff W/WO Contrast [facility] [address] [facility] [place], [place] [address] CTA Abd w/Runoff W/WO Contrast MR#: [id number] Acct: [id number] Name: KATHARINE CANO Rep #: [id number] : 1945 M 79 From: Gloria weiner MD PCP: Dr. César Merrill MD Status: REG CLI Study: CTA Abd w/Runoff W/WO Contrast Date of Exam: 0 10/03/24 Exam# [id number] Ordering Dr: Sloane Rush PROCEDURE: CTA ABD W/RUNOFF W/WO CONTRAST 10/03/2024 REASON FOR EXAM: SEVERE PAD TECHNIQUE: CTA imaging of the abdomen and pelvis with intravenous contrast. Multiplanar and multisequence images were obtained. CONTRAST: Isovue 370 VOLUME: 100 mL One or more dose reduction techniques were used (e.g., Automated exposure control, adjustment of the mA and/or kV according to patient size, use of iterative reconstruction technique). RADIATION DOSE SUMMARY: CTDlvol: 4.32 mGy DLP: 300 mGycm COMPARISON: None. FINDINGS: Aorta: Moderate stenosis of the abdominal aorta. Celiac: Mild stenosis. SMA: Moderate stenosis. BROOKE : Mild stenosis. Right Renal: Moderate stenosis. Left Renal: Mild stenosis. On the right side: Common iliac: High-grade subocclusive stenosis. External iliac : Mild stenosis. Internal iliac : Mild stenosis. Common femoral artery: Moderate stenosis. Superficial femoral artery : Moderate stenosis. Deep femoral artery : Mild stenosis. Popliteal artery : Mild stenosis. Posterior tibial artery : Mild stenosis. Anterior tibial artery : Mild stenosis. Peroneal artery : Mild stenosis. Dorsalis pedis artery : Mild stenosis. On the left side: Common iliac: Mild stenosis. External iliac : Mild stenosis. Internal iliac : Moderate stenosis. Common femoral artery: High-grade subocclusive stenosis. Superficial femoral artery : Moderate stenosis. Deep femoral artery : Mild stenosis. Popliteal artery : Mild stenosis. Posterior tibial artery : Mild stenosis. Anterior tibial artery : Mild stenosis. Peroneal artery : Mild stenosis. Dorsalis pedis artery : Mild stenosis. Cholelithiasis without acute cholecystitis. Uncomplicated colonic diverticulosis. Prostatomegaly. Diffuse thickening of the bladder. Chronic bladder outlet obstruction versus cystitis. Unremarkable metallic prosthesis of the knees. Prior decompression and fusion of the lower lumbar levels. CT/CTA Abd w/Runoff W/WO Contrast IMPRESSION: Atherosclerosis. Multifocal stenosis. Reading Location: [place] [address] CC: STEPHEN Toth; Dr. 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 [address] [place] [address] OFFICE VISIT Date of Service: 08/29/24 MR#: [id number] Acct: [id number] Name: KATHARINE CANO Rep #: [id number] : 1945 Provider: STEPHEN Toth Age/Sex: 79/M Location: [facility] Status: Signed Intake Vital Signs 07/10/24 09:30 08/29/24 11:06 Height 5 ft 6 in Weight: 232 lb 231 lb BMI 37.4 BP 142/65 H 128/63 H Blood Pressure Location Rt brachial Rt brachial Position Sitting Sitting Respiration 18 18 Pulse 55 L 62 Pulse Source Monitor Monitor Temp 98.6 F Temp Source Temporal Pulse Oximetry (%) 92 94 Oxygen Delivery Method room air room air Intake Visit Reasons: Severe PVD Chief Complaint: Establish Care [employer] Practitioner Required: No Is patient in pain?: Yes Allergies rosuvastatin (From MediSapiens) Allergy (Intermediate, Verified 07/10/24 09:30) Rash Medications ???Medication ???Instructions ???Recorded ???Confirmed ???Type nitroglycerin 0.4 mg sublingual 0.4 mg sublingual Q5-15M PRN chest 11/04/18 08/29/24 Rx tablet pain #25 tabs baclofen 20 mg tablet 20 mg PO QHS Check with primary 08/29/24 History doctor tamsulosin 0.4 mg capsule 0.4 mg PO QHS Check with primary 1 08/29/24 History doctor gabapentin 100 mg capsule 100 mg PO QHS 07/21/21 08/29/24 Hi story pioglitazone 45 mg tablet 45 mg PO DAILY 07/21/21 08/29/24 H istory glimepiride 4 mg tablet 4 mg PO BID 01/11/22 08/29/24 Hist ory atenolol 25 mg tablet 25 mg PO DAILY #90 tabs 09/26/23 0 08/29/24 Rx losartan 50 mg-hydrochlorothiazid e 1 tab PO DAILY #90 tabs 01/03/24 08/29/24 Rx 12.5 mg tablet simvastatin 80 mg tablet 80 mg PO QHS #90 TABLETS 01/03/24 08/29/24 Rx aspirin 81 mg chewable tablet 162 mg (2 x 81 mg) PO QDAY #60 tab s 07/10/24 08/29/24 Rx (Manan Chewable Low Dose Aspirin) berberine chloride 500 mg capsule mg PO 08/29/24 08/29/24 History cilostazol 50 mg tablet 50 mg PO BID #60 tabs 08/29/2406/24 Rx Have you fallen in the past year?: No PFSH Medical History Wears hearing aid Wears glasses Wears dentures Diabetes Prostate disease High cholesterol Back pain Dietary restriction Former smoker Shortness of breath on exertion Leg cramps History of edema History of stress test History of echocardiogram Cardiology follow-up encounter History of rheumatic fever Essential hypertension Arthritis CPAP (continuous positive airway pressure) dependence Acute and chronic respiratory failure with hypoxia Hyperlipidemia Nonrheumatic mitral (valve) prolapse History of anterior wall myocardial infarction Stented coronary artery ( 08/01/97) 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 Sister , age 57 of renal cancer Renal cancer Social History household members: spouse Smoking Status: Former smoker alcohol intake: current alcohol intake frequency: other substance use type: does not use HPI HPI HPI: KATHARINE CANO, is a 79 M who presents to the office today for evaluation of PAD as referred by his PCP Dr. Merrill. He had recent arterial study demonstrating severe PAD. He denies claudication symptoms but admittedly does not do much walking. He does have nocturnal rest pain worse in the LLE which wakes him up at least 3 times a night and he has to sit on the edge of the bed to dangle his legs for a while to relieve this until he can go back to sleep. During the day, he sleeps in his recliner with his legs angled down and is much more comfortable. He has a very small superficial scrape to the anterior L tam, reports this has been there a long time and seems to be getting better. He has not had any other wounds. He has no prior history of revascularization. He is on aspirin and statin daily. He is diabetic. He has a history of smoking, quit years ago. ROS General General: No weight change, appetite, fatigue, colon cancer, breast cancer or weakness HEENT HEENT: No difficulty swallowing, eye injury, eye surgery, swollen glands or hoarseness Endo Endocrine: Yes diabetes mellitus; No thyroid disease, thyroid canc (more content not included)... Normal [facility] P[facility] LEG VAL VAS LABon 2024 [facility] LAB Non-Invasive Vascula r Laboratory [facility] Lower Extremity Arterial Physiology Study Bilateral/Complete Date of service/time: 08/21/2024 12:21:06 PM Name: MR. KATHARINE CANO Date of : 1945 Age: 79 years Gender: M Medical History Coronary disease: Yes Hypertension: Yes Diabetes: Yes Clinical Indication Cyanosis and decreased pulses. TECHNIQUE -------- An arterial physiological examination was performed, including measurement of blood pressures using continuous wave Doppler and recording of plethysmographic with or without Doppler waveforms at the below-mentioned limb segments. FINDINGS -------- RIGHT SIDE AT REST Right Doppler Waveforms Dorsalis pedis: Monophasic. Post tibial: Monophasic. Right Pressures Brachial: 132 mmHg High thigh: 121 mmHg Low thigh: 58 mmHg Calf: 42 mmHg Ankle dorsalis pedis: 29 mmHg WILMA: 0.22 Ankle posterior tibial: 33 mmHg WILMA: 0.25 Right PVR Waveforms High thigh: Severely dampened. Low thigh: Severely dampened. Calf: Severely dampened. Ankle: Severely dampened. Transmetatarsal: Severely dampened. Digit: Severely dampened. LEFT SIDE AT REST Left Doppler Waveforms Dorsalis pedis: Absent. Post tibial: Monophasic. Left Pressures Brachial: 130 mmHg High thigh: 49 mmHg Low thigh: 35 mmHg Calf: 31 mmHg Ankle dorsalis pedis: Not audible. Ankle posterior tibial: 15 mmHg WILMA: 0.11 Left PVR Waveforms High thigh: Severely dampened. Low thigh: Severely dampened. Calf: Severely dampened. Ankle: Severely dampened. Transmetatarsal: Severely dampened. Digit: Severely dampened. IMPRESSION The patient has an WILMA consistent with a diagnosis of peripheral artery disease. Consider referral to a vascular specialist for evaluation unless already implemented. RIGHT SIDE Resting right ankle brachial index: 0.25 Abnormal ankle brachial index at rest diagnostic of peripheral artery disease. Right ankle: Severe disease at rest. Aortic or bilateral iliofemoral disease. Right distal superficial femoral and/or popliteal disease. Right infrapopliteal disease. Unable to rule out distal disease in the right leg. LEFT SIDE Resting left ankle brachial index: 0.11 Abnormal ankle brachial index at rest diagnostic of peripheral artery disease. Left ankle: Severe disease at rest. Aortic or bilateral iliofemoral disease. Unable to rule out distal disease in the left leg. Technologist: Sabrina Deng T Ordering physician: CÉSAR MERRILL Interpreting physician: Diego Rice MD, ZAID Final CC [facility] Image : [id number] amicsSISUID See Link below for Image [facility] Tele[facility] ([facility]) KATHARINE CANO ([id number]) 1945 M Date Time Provider Department 07/31/24 CÉSAR MERRILL During your visit today, we recorded the following information about you: Jeannette Oliveira RN 07/31/2024 11:52 AM Signed Patient's son Adelaida calls and states that Farxiga is too expensive for patient. Atlee asking for different medication to be called into pharmacy. Please review and advise, LEONEL Trotter Christopher B, MD 07/31/2024 12:30 PM Signed Patient is already on Actos and Glimepiride. Cannot tolerate metformin due to diarrhea. Can we initiate PA for this medication? If not, would have patient check with insurance to see if they have list of covered alternatives. NORMA ANDERSON 07/31/2024 12:57 PM Signed Spoke with son, Adelaida, at this time and notified of Farxiga rangel if he uses GoodRx coupon at a different pharmacy ($288 with coupon; he was quoted over $400 at his preferred pharmacy without GoodRx). They will contact office back on whether they choose this route. He currently is taking Simvastatin 80mg daily that was originally prescribed through [facility]. Last visit with them on 07/10/24, stated they encouraged him to follow up with PCP for long-term management of his lipids and hypertension. They are questioning if they should continue with this or start Atorvastatin instead. Please review and advise. SAMMIE Figueroa Christopher B, MD 07/31/2024 3:01 PM Signed With LDL above 70 I would recommend he switch to the Atorvastatin 40 mg daily. Valerie Johnson LPN 07/31/2024 4:00 PM Signed Reviewed message with Adelaida and he voiced understanding. Valerie Johnson LPN Allergies As of Date: 07/31/2024 Noted Allergy Reaction DIOVAN (VALSARTAN) 02/09/2005 3 - Cough CRESTOR (ROSUVASTATIN CALCIUM) 11/01/2006 14 - Other: See Comments Comments: rash and sore muscles METFORMIN 08/01/2005 6 - Diarrhea ZINC 02/09/2005 5 - Intolerance Comments: chest pain Date Reviewed: 07/24/2024 Reviewed by: César Merrill MD - Fully Assessed Reason for Visit: Patient Update [1234] Prescriptions as of 08/05/2024 - dapagliflozin propanediol (FARXIGA) 5 mg tablet Take 1 tablet by mouth daily with breakfast. - atorvastatin (LIPITOR) 40 mg tablet Take 1 tablet by mouth once daily. - Cyanocobalamin 1,000 mcg TbER Take 1 tablet by mouth once daily. - terbinafine HCl (LAMISIL) 250 mg tablet Take 1 tablet by mouth every afternoon. - MEDICATION, NON-DATABASE Take 2 capsules by mouth two times a day. CURALIN BLOOD SUGAR SUPPORT - saw/vit E/sod indu/lyc/beta/pyg (PROSTATE HEALTH ORAL) Take 1 capsule by mouth two times a day. - gabapentin (NEURONTIN) 100 mg capsule Take 1 capsule by mouth daily at bedtime for 180 days. For leg cramps - baclofen 20 mg tablet Take 1 tablet by mouth daily at bedtime. - pioglitazone (ACTOS) 45 mg tablet Take 1 tablet by mouth once daily. - tamsulosin (FLOMAX) 0.4 mg Take 1 capsule by mouth daily at bedtime. Bringing good RX coupon. - losartan-hydroCHLOROt hiazide (HYZAAR) 50-12.5 mg per tablet Take 1 tablet by mouth once daily. - glimepiride (AMARYL) 4 mg tablet Take 1 tablet by mouth two times a day with meals. - nitroglycerin sublingual (NITROQUICK) 0.4 mg SL tablet Dissolve 1 tablet under the tongue as directed. EVERY 5 MIN X3 - Flurbiprofen 100 mg tablet TAKE ONE TABLET BY MOUTH TWICE DAILY FOR ARTHRITIS, as needed - atenolol (TENORMIN) 25 mg tablet Take 1 tablet by mouth once daily. Per [facility] - simvastatin (ZOCOR) 80 mg tablet Take 1 tablet by mouth daily at bedtime. Per Dr. Barba - Aspirin 81 mg ORAL Tab Take 81 mg by mouth. Take (2) tablets in the morning Problem List As Of Date 07/31/2024 Noted Resolved Osteoarthritis [M19.90] 06/16/2005 Mixed hyperlipidemia [E78.2] 11/07/2005 Coronary atherosclerosis [I25.10] 05/02/2007 History of coronary artery stent placement [Z95*12/19/2012 KARLA (obstructive sleep apnea) [G47.33] 12/19/2012 Ex-smoker [Z87.891] 12/11/2016 Well adult exam [Z00.00] 12/11/2016 Phimosis [N47.1] 12/11/2016 Benign prostatic hyperplasia with urinary frequ*12/11/2016 Prostate disorder [N42.9] 12/11/2016 Hypertension, essential [I10] 12/11/2016 Screening for colon cancer [Z12.11] 12/11/2016 Diabetic eye exam (HCC) [Z01.00, E11.9] 01/11/2017 Type 2 diabetes mellitus without complication, *08/14/2017 Nocturnal leg cramps [G47.62] 02/22/2018 History of COVID-19 [Z86.16] 01/18/[address] [Z78.9] 11/15/2021 Advance directive discussed with patient [Z71.8*11/15/2021 Vitamin B12 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] 08/16/2023 Encounter Status:Closed by JEANNETTE OLIVEIRA on 08/05/[address] [facility] ALBUMIN/CREATININE RATIO, UR INEon 07-24-2024 Albumin DL <= 20 mg/L (U) [Mass/Vol] mg/dL Normal [facility] Comment on above: Order Comment: Speci men Type: URINE SPECIMENOrdering Facility: [facility] Address: [address] [place] [address] Performed By: #### U ACR ####[facility] LABCLIA [id number] [place] [address] [place] Albumin/Creatinine (U) [Mass ratio] <8 Normal <30 [facility] Comment on above: Order Comment: Speci men Type: URINE SPECIMENOrdering Facility: [facility] Address: [address] [place] [address] Result Comment: Adul t Male and Female Nephrotic Criteria: <30 mg/g is considered normal to mildly increased 30-300 mg/g is considered moderately increased >300 mg/g is considered severely increased KDIGO. (2013). KDIGO 2012 Clinical Practice Guideline for the Evaluation and Management of Chronic Kidney Disease. Official Journal of the International Society of Nephrology, 3(1), 1-150. Performed By: #### U ACR ####[facility] LABCLIA [id number] [place] [address] [place] Creatinine (U) [Mass/Vol] 155.2 mg/dL Normal 20.0-300.0 [facility] Comment on above: Order Comment: Speci men Type: URINE SPECIMENOrdering Facility: [facility] Address: [address] [place], [place] [address] Performed By: #### U ACR ####[facility] LABCLIA [id number] [facility] [place] [address] [place] CBC W Auto Differential pane l (Bld)on 07-24-2024 Basophils (Bld) [#/Vol] 0.04 10*3/uL [facility] Basophils/100 WBC (Bld) 0.8 % [facility] Differential cell count method Nom (Bld) Auto [facility] Eosinophils (Bld) [#/Vol] 0.15 10*3/uL [facility] Eosinophils/100 WBC (Bld) 3.1 % [facility] Erythrocyte distribution width (RBC) [Ratio] 13.5 % 11.5 - 15.0 % [facility] Hematocrit (Bld) [Volume fraction] 42.7 % 39.0 - 51.0 % [facility] Hemoglobin (Bld) [Mass/Vol] 14.1 g/dL 13.0 - 17.0 g/dL [facility] Immature granulocytes (Bld) [#/Vol] [facility] Immature granulocytes/100 WBC (Bld) 0 % [facility] Interpretation and review of laboratory results Abnormal [facility] Lymphocytes (Bld) [#/Vol] 2.17 10*3/uL [facility] Lymphocytes/100 WBC (Bld) 45.5 % [facility] MCH (RBC) [Entitic mass] 33.3 pg 26.0 - 34.0 pg [facility] MCHC (RBC) [Mass/Vol] 33 g/dL 30.5 - 36.0 g/dL [facility] MCV (RBC) [Entitic vol] 100.9 fL High 80.0 - 100.0 fL [facility] Monocytes (Bld) [#/Vol] 0.56 10*3/uL [facility] Monocytes/100 WBC (Bld) 11.7 % [facility] Neutrophils (Bld) [#/Vol] 1.85 10*3/uL [facility] Neutrophils/100 WBC (Bld) 38.9 % [facility] Nucleated RBC (Bld) [#/Vol] [facility] Nucleated RBC/100 WBC (Bld) [Ratio] 0 % /100 WBC [facility] Platelet mean volume (Bld) [Entitic vol] 9.5 fL 9.0 - 12.7 fL [facility] Platelets (Bld) [#/Vol] 232 10*3/uL [facility] RBC (Bld) [#/Vol] 4.23 10*6/uL 4.20 - 6.0 0 m/uL [facility] WBC (Bld) [#/Vol] 4.77 10*3/uL [facility] Basophils (Bld) [#/Vol] 0.04 10*3/uL Normal <0.11 [facility] Comment on above: Order Comment: Speci men Type: BLOOD SPECIMENOrdering Facility: [facility] Address: [address] [place] [address] Performed By: #### 5 7021-8 ####[facility] LABCLIA [id number] [place] [address] [place] Basophils/100 WBC (Bld) 0.8 % Normal [facility] Comment on above: Order Comment: Speci men Type: BLOOD SPECIMENOrdering Facility: [facility] Address: [address] [place] [address] Performed By: #### 5 7021-8 ####[facility] LABCLIA [id number] [place] [address] [place] Differential cell count method Nom (Bld) Auto Normal [facility] Comment on above: Order Comment: Speci men Type: BLOOD SPECIMENOrdering Facility: [facility] Address: [address] [place] [address] Performed By: #### 5 7021-8 ####[facility] LABCLIA [id number] [place] [address] [place] Eosinophils (Bld) [#/Vol] 0.15 10*3/uL Normal <0.46 [facility] Comment on above: Order Comment: Speci men Type: BLOOD SPECIMENOrdering Facility: [facility] Address: [address] [place] [address] Performed By: #### 5 7021-8 ####[facility] LABCLIA [id number] [address] [place] [address] [place] Eosinophils/100 WBC (Bld) 3.1 % Normal [facility] Comment on above: Order Comment: Speci men Type: BLOOD SPECIMENOrdering Facility: [facility] Address: [address] [place] [address] Performed By: #### 5 7021-8 ####[facility] LABCLIA [id number] [address], [place] [address] [place] Erythrocyte distribution width (RBC) [Ratio] 13.5 % Normal 11.5-15.0 [facility] Comment on above: Order Comment: Speci men Type: BLOOD SPECIMENOrdering Facility: [facility] Address: [address] [place] [address] Performed By: #### 5 7021-8 ####[facility] LABCLIA [id number] [address], [place] [address] [place] Hematocrit (Bld) [Volume fraction] 42.7 % Normal 39.0-51.0 [facility] Comment on above: Order Comment: Speci men Type: BLOOD SPECIMENOrdering Facility: [facility] Address: [address] [place] [address] Performed By: #### 5 7021-8 ####[facility] LABCLIA [id number] [address], [place] [address] [place] Hemoglobin (Bld) [Mass/Vol] 14.1 g/dL Normal 13.0-17.0 [facility] Comment on above: Order Comment: Speci men Type: BLOOD SPECIMENOrdering Facility: [facility] Address: [address] [place] [address] Performed By: #### 5 7021-8 ####[facility] LABCLIA [id number] [address], [facility] [place] Immature granulocytes (Bld) [#/Vol] 10*3/uL Normal <0.10 [facility] Comment on above: Order Comment: Speci men Type: BLOOD SPECIMENOrdering Facility: [facility] Address: [address] [place] [address] Performed By: #### 5 7021-8 ####[facility] LABCLIA [id number] [address] [address] [place] Immature granulocytes/100 WBC (Bld) 0.0 % Normal [facility] Comment on above: Order Comment: Speci men Type: BLOOD SPECIMENOrdering Facility: [facility] Address: [address] [place] [address] Performed By: #### 5 7021-8 ####[facility] LABCLIA [id number] [address], [place] [address] [place] Lymphocytes (Bld) [#/Vol] 2.17 10*3/uL Normal 1.00-4.00 [facility] Comment on above: Order Comment: Speci men Type: BLOOD SPECIMENOrdering Facility: [facility] Address: [address] [place] [address] Performed By: #### 5 7021-8 ####[facility] LABCLIA [id number] [place] [address] [place] Lymphocytes/100 WBC (Bld) 45.5 % Normal [facility] Comment on above: Order Comment: Speci men Type: BLOOD SPECIMENOrdering Facility: [facility] Address: [address] [place] [address] Performed By: #### 5 7021-8 ####[facility] LABCLIA [id number] [place] [id number] [place] MCH (RBC) [Entitic mass] 33.3 pg Normal 26.0-34.0 [facility] Comment on above: Order Comment: Speci men Type: BLOOD SPECIMENOrdering Facility: [facility] Address: [address] [place] [address] Performed By: #### 5 7021-8 ####[facility] LABCLIA [id number] [place] [address] [place] MCHC (RBC) [Mass/Vol] 33.0 g/dL Normal 30.5-36.0 [facility] Comment on above: Order Comment: Speci men Type: BLOOD SPECIMENOrdering Facility: [facility] Address: [address] [place] [address] Performed By: #### 5 7021-8 ####[facility] LABIA [id number] [place] [address] [place] MCV (RBC) [Entitic vol] 100.9 fL High 80.0-100.0 [facility] Comment on above: Order Comment: Speci men Type: BLOOD SPECIMENOrdering Facility: [facility] Address: [address] [place] [address] Performed By: #### 5 7021-8 ####[facility] LABIA [id number] [place] [address] [place] Monocytes (Bld) [#/Vol] 0.56 10*3/uL Normal <0.87 [facility] Comment on above: Order Comment: Speci men Type: BLOOD SPECIMENOrdering Facility: [facility] Address: [address] [place] [address] Performed By: #### 5 7021-8 ####[facility] LABIA [id number] [place] [address] [place] Monocytes/100 WBC (Bld) 11.7 % Normal [facility] Comment on above: Order Comment: Speci men Type: BLOOD SPECIMENOrdering Facility: [facility] Address: [address] [place] [address] Performed By: #### 5 7021-8 ####[facility] LABIA [id number] [place] [address] [place] Neutrophils (Bld) [#/Vol] 1.85 10*3/uL Normal 1.45-7.50 [facility] Comment on above: Order Comment: Speci men Type: BLOOD SPECIMENOrdering Facility: [facility] Address: [address] [place] [address] Performed By: #### 5 7021-8 ####[facility] LABCLIA [id number] [place] [address] [place] Neutrophils/100 WBC (Bld) 38.9 % Normal [facility] Comment on above: Order Comment: Speci men Type: BLOOD SPECIMENOrdering Facility: [facility] Address: [address] [place] [address] Performed By: #### 5 7021-8 ####[facility] LABCLIA [id number] [place] [address] [place] Nucleated RBC (Bld) [#/Vol] 10*3/uL Normal <0.01 [facility] Comment on above: Order Comment: Speci men Type: BLOOD SPECIMENOrdering Facility: [facility] Address: [address] [place] [address] Performed By: #### 5 7021-8 ####[facility] LABCLIA [id number] [place] [address] [place] Nucleated RBC/100 WBC (Bld) [Ratio] 0.0 /[address] [facility] Comment on above: Order Comment: Speci men Type: BLOOD SPECIMENOrdering Facility: [facility] Address: [address] [place] [address] Performed By: #### 5 7021-8 ####[facility] LABIA [id number] [place] [address] [place] Platelet mean volume (Bld) [Entitic vol] 9.5 fL Normal 9.0-12.7 [facility] Comment on above: Order Comment: Speci men Type: BLOOD SPECIMENOrdering Facility: [facility] Address: [address] [place] [address] Performed By: #### 5 7021-8 ####[facility] LABCLIA [id number] [place] [address] [place] Platelets (Bld) [#/Vol] 232 10*3/uL Normal 150-400 [facility] Comment on above: Order Comment: Speci men Type: BLOOD SPECIMENOrdering Facility: [facility] Address: [address] [place] [address] Performed By: #### 5 7021-8 ####[facility] LABIA [id number] [place] [address] [place] RBC (Bld) [#/Vol] 4.23 10*6/uL Normal 4.20-6.00 [facility] Comment on above: Order Comment: Speci men Type: BLOOD SPECIMENOrdering Facility: [facility] Address: [address] [place] [address] Performed By: #### 5 7021-8 ####[facility]PITAL[facility] [id number] [place] [id number] [place] WBC (Bld) [#/Vol] 4.77 10*3/uL Normal 3.70-11.00 [facility] Comment on above: Order Comment: Speci men Type: BLOOD SPECIMENOrdering Facility: [facility] Address: [address] [place] [address] Performed By: #### 5 7021-8 ####[facility] LABIA [id number] [place] [id number] [place] CNOVon 07-24-2024 CNOV Office Visit (FAMPWS ) KATHARINE CANO ([id number]) 1945 M Date Time Provider Department 07/24/24 8:40 AM CÉSAR MERRILL During your visit today, we recorded the following information about you: Pulse Blood pressure Weight Height 60/minute 124/54 103 kg 1.651 m César Merrill MD 07/24/2024 8:53 AM Addendum Please bring in copies of your power of attorney general for health care and living will. Please get back on the B12 1000 mcg 1.5 tabs a day. César Merrill MD 07/24/2024 6:43 PM Signed Chief Complaint Patient presents with: Physical HPI Katharine Cano is a 79 year old male who presents here today for Physical. Patient with hx of CAD, HTN, hyperlipidemia, KARLA, DM2, BPH, and those as below. Ref Range AND Units 5 mo ago (02/14/24) 11 mo ago (08/08/23) 2 yr ago (05/31/22) 2 yr ago (11/15/21) 3 yr ago (05/12/21) 3 yr ago (10/27/20) 5 yr ago (08/15/18) Hemoglobin A1C 4.3 - 5.6 % 6.5 High 6.4 High CM 6.3 High CM 7.0 High CM 9.7 High CM 8.7 High CM 6 Patient sees Cardiology last visit 06/2024 Patient sees Ophthalmology last visit 06/2024 A recent phone encounter with patient's pharmacy revealed that he may not be taking his metformin, Glimepiride, gabapentin and baclofen on a regular basis based on last script dates and med refills. Seeing Dr. Castro with [facility] for his hip pains. Patient had run out of his gabapentin and baclofen and since he had no refills he used his 's gabapentin as needed and just stayed off the baclofen. He would like to get back on both meds. Patient stopped his metformin due to diarrhea and since then the diarrhea has stopped. Has been taking an OTC supplement called Curalin. His Fasting Blood sugars are running 170's on average and his before bed are running 140-200. Past medical history, appointments, medications, allergies reviewed. Previous Medical History PAST MEDICAL HISTORY Diagnosis Date Advance directive discussed with patient 11/15/2021 Discussed 10/2021 Benign prostatic hyperplasia with urinary frequency 12/11/2016 Coronary atherosclerosis 05/02/2007 COVID-19 virus infection 01/18/202112/2020 Diabetic eye exam (HCC) 01/11/2017 Last Done: 12/09/2018, No Retinopathy Ex-smoker 12/11/2016 Started at age 17 yo, Up to 7-10 pipes a day. Quite at age 53, [place] 11/2015 neg for AAA History of coronary artery stent placement 12/19/2012 Hypertension, essential 12/11/[address] 11/15/2021 DPA: Wilfredo (son) Mixed hyperlipidemia 11/07/2005 Nocturnal leg cramps 02/22/2018 KARLA (obstructive sleep apnea) 12/19/2012 Phimosis 12/11/2016 Type 2 diabetes mellitus without complication, without long-term current use of insulin (HCC) 08/14/2017 Previous Surgical History PAST SURGICAL HISTORY Procedure Laterality Date 2D ECHO (EXEP) 11/19/2018 EF 55%, stage 1 Diast Dysf, NO change from 04/2011 ARTHRP KNE CONDYLEANDPLATU MEDIALANDLAT COMPARTMENTS Right ARTHRP KNE CONDYLEANDPLATU MEDIALANDLAT COMPARTMENTS Left FECAL OCCULT BLOOD TEST 05/26/2019 negative PAST SURGICAL HISTORY OF 07/09/2017 right carpal tunnel repair PAST SURGICAL HISTORY OF 09/2017 C6, C7 block and plates PAST SURGICAL HISTORY OF 04/12/2023 lumbar surgery PAST SURGICAL HISTORY OF 03/2023 Spinal fusion L3-L4 STRESS TEST 09/27/2017 negative Family History FAMILY HISTORY Problem Relation Age of Onset Coronary Artery Disease Father after CABG at 81 Cancer Sister renal Kidney Disease Brother other (Lavon's) Brother Cancer Brother Coronary Artery Disease Paternal Uncle 70's COPD No Family History Cystic Fibrosis No Family History Patient Allergies ALLERGIES Allergen Reactions Diovan [Valsartan] Cough Crestor [Rosuvastat* Other: See Comments rash and sore muscles Metformin Diarrhea Zinc Intolerance chest pain Current Medications Current Outpatient Medications on File Prior to Visit Medication Sig tamsulosin (FLOMAX) 0.4 mg Take 1 capsule by mouth daily at bedtime. Bringing good RX coupon. pioglitazone (ACTOS) 45 mg tablet Take 1 tablet by mouth once daily. metFORMIN ER (GLUCOPHAGE XR) 500 mg 24 hr tablet Take 2 in the morning with breakfast and two in the evening. losartan-hydroCHLOROt hiazide (HYZAAR) 50-12.5 mg per tablet Take 1 tablet by mouth once daily. glimepiride (AMARYL) 4 mg tablet Take 1 tablet by mouth two times a day with meals. Cyanocobalamin 1,000 mcg TbER Take 1.5 tablets by mouth once daily. baclofen 20 mg tablet Take 1 tablet by mouth daily at bedtime. nitroglycerin sublingual (NITROQUICK) 0.4 mg SL tablet Dissolve 1 tablet under the tongue as directed. EVERY 5 MIN X3 Flurbiprofen 100 mg tablet TAKE ONE TABLET BY MOUTH TWICE DAILY FOR ARTHRITIS, as needed gabapentin (NEURONTIN) 100 mg capsule Take 1 capsule by mouth daily at bedtime for 180 days. For leg cramps ate (more content not included)... Normal [facility] Cobalamin (Vitamin B12) [Mas s/Vol]on 07-24-2024 Interpretation and review of laboratory results Normal [facility] Comprehensive metabolic 2000 panelon 07-24-2024 Albumin [Mass/Vol] 4.1 g/dL 3.9 - 4.9 g/dL [facility] ALP [Catalytic activity/Vol] 84 U/L 38 - 113 U/L [facility] ALT [Catalytic activity/Vol] 12 U/L 10 - 54 U/L [facility] Anion gap [Moles/Vol] 12 mmol/L 8 - 15 mmol/L [facility] AST [Catalytic activity/Vol] 20 U/L 14 - 40 U/L [facility] Bilirubin [Mass/Vol] 0.4 mg/dL 0.2 - 1 .3 mg/dL [facility] Calcium [Mass/Vol] 9.7 mg/dL 8.5 - 10. 2 mg/dL [facility] Chloride [Moles/Vol] 103 mmol/L 98 - 10 7 mmol/L [facility] CO2 [Moles/Vol] 24 mmol/L 22 - 30 mmol/L [facility] Creatinine [Mass/Vol] 1.36 mg/dL High 0.73 - 1.22 mg/dL [facility] GFR/1.73 sq M.predicted among non-blacks MDRD (S/P/Bld) [Vol rate/Area] 53 mL/min/{1.73_m2} Low - PINF [facility] Comment on above: Estimated Glomerular Filtration Rate (eGFR) is calculated using the 2020 CKD-EPI creatinine equation. This equation utilizes serum creatinine, sex, and age as parameters. The creatinine assay has traceable calibration to isotope dilution-mass spectrometry. Refer to KDIGO guidelines for clinical interpretation. In patients with unstable renal function, e.g. those with acute kidney injury, the eGFR may not accurately reflect actual GFR. Glucose [Mass/Vol] 154 mg/dL High 74 - 99 mg/dL [facility] Comment on above: The [place] Diabete s Association (ADA) provides guidance for cutoff values for fasting glucose and random glucose. The ADA defines fasting as no caloric intake for at least 8 hours. Fasting plasma glucose results between 100 to 125 [...] Standards of Medical Care in Diabetes 2016, [place] Diabetes Association. Diabetes Care. 2016.39(Suppl 1). Potassium [Moles/Vol] 4.4 mmol/L 3.7 - 5.1 mmol/L [facility] Protein [Mass/Vol] 7.9 g/dL 6.3 - 8.0 g/dL [facility] Sodium [Moles/Vol] 139 mmol/L 136 - 144 mmol/L [facility] Urea nitrogen [Mass/Vol] 21 mg/dL 9 - 24 mg/dL [facility] Albumin [Mass/Vol] 4.1 g/dL Normal 3.9-4.9 [facility] Comment on above: Order Comment: Speci men Type: BLOOD SPECIMENOrdering Facility: [facility] Address: [address] [place] [address] [place] [address] Performed By: #### 2 4323-8, BERNADINE, 2132-9 ####[facility] LABCLIA [id number] [place] [address] [place] ALP [Catalytic activity/Vol] 84 U/L Normal 38-113 [facility] Comment on above: Order Comment: Speci men Type: BLOOD SPECIMENOrdering Facility: [facility] Address: [address] [place] [address] Performed By: #### 2 4323-8, LIPNF, 2131-12 ####[facility] LABCLIA [id number] [place] [id number] [place] ALT [Catalytic activity/Vol] 12 U/L Normal 10-54 [facility] Comment on above: Order Comment: Speci men Type: BLOOD SPECIMENOrdering Facility: [facility] Address: [address] [place] [address] Performed By: #### 2 4323-8, LIPNF, 2131-12 ####[facility] LABCLIA [id number] [place] [address] [place] Anion gap [Moles/Vol] 12 mmol/L Normal 8-15 [facility] Comment on above: Order Comment: Speci men Type: BLOOD SPECIMENOrdering Facility: [facility] Address: [address] [place] [address] Performed By: #### 2 4323-8, LIPNF, 2131-12 ####[facility] LABIA [id number] [place] [address] [place] AST [Catalytic activity/Vol] 20 U/L Normal 14-40 [facility] Comment on above: Order Comment: Speci men Type: BLOOD SPECIMENOrdering Facility: [facility] Address: [address] [place] [address] Performed By: #### 2 4323-8, LIPNF, 2131-12 ####[facility] LABCLIA [id number] [place] [id number] [place] Bilirubin [Mass/Vol] 0.4 mg/dL Normal 0.2-1.3 [facility] Comment on above: Order Comment: Speci men Type: BLOOD SPECIMENOrdering Facility: [facility] Address: [address] [place] [address] Performed By: #### 2 432-8, LIPNF, 2131-12 ####[facility] LABCLIA [id number] [address] [address] [place] Calcium [Mass/Vol] 9.7 mg/dL Normal 8.5-10.2 [facility] Comment on above: Order Comment: Speci men Type: BLOOD SPECIMENOrdering Facility: [facility] Address: [address] [place] [address] Performed By: #### 2 432-8, LIPNF, 2131-12 ####[facility] LABCLIA [id number] [place] [id number] [place] Chloride [Moles/Vol] 103 mmol/L Normal 98-107 [facility] Comment on above: Order Comment: Speci men Type: BLOOD SPECIMENOrdering Facility: [facility] Address: [address] [place] [address] Performed By: #### 2 4328, LIPNF, 2131-12 ####[facility] LABCLIA [id number] [place] [id number] [place] CO2 [Moles/Vol] 24 mmol/L Normal 22-30 [facility] Comment on above: Order Comment: Speci men Type: BLOOD SPECIMENOrdering Facility: [facility] Address: [address] [place], [place] [address] Performed By: #### 2 4328, LIPNF, 2131-12 ####[facility] LABCLIA [id number] [address] [address] [place] Creatinine [Mass/Vol] 1.36 mg/dL High 0.73-1.22 [facility] Comment on above: Order Comment: Speci men Type: BLOOD SPECIMENOrdering Facility: [facility] Address: [address] [place], [place] [address] Performed By: #### 2 432-8, LIPNF, 2131-12 ####[facility] LABCLIA [id number] [place] [address] [place] Creatinine and Glomerular filtration rate.predicted panel (S/P/Bld) 53 mL/min/1.73m??? Low >=60 [facility] Comment on above: Order Comment: Lucho kidd Type: BLOOD SPECIMENOrdering Facility: [facility] Address: [address] [place] [address] Result Comment: Laurie mated Glomerular Filtration Rate (eGFR) is calculated using the 2020 CKD-EPI creatinine equation. This equation utilizes serum creatinine, sex, and age as parameters. The creatinine assay has traceable calibration to isotope dilution-mass spectrometry. Refer to KDIGO guidelines for clinical interpretation. In patients with unstable renal function, e.g. those with acute kidney injury, the eGFR may not accurately reflect actual GFR. Performed By: #### 2 4323-8, LIPTHOMAS, 2131-12 ####[facility]PITAL[facility] [id number] [place] [address] [place] Glucose [Mass/Vol] 154 mg/dL High 74-99 [facility] Comment on above: Order Comment: Lucho kidd Type: BLOOD SPECIMENOrdering Facility: [facility] Address: [address] [place] [address] Result Comment: The [place] Diabetes Association (ADA) provides guidance for cutoff values for fasting glucose and random glucose. The ADA defines fasting as no caloric intake for at least 8 hours. Fasting plasma glucose results between 100 to 125 [...] Standards of Medical Care in Diabetes 2016, [place] Diabetes Association. Diabetes Care. 2016.39(Suppl 1). Performed By: #### 2 4323-8, LIPNF, 2131-12 ####[facility] LABIA [id number] [address] [address] [place] Potassium [Moles/Vol] 4.4 mmol/L Normal 3.7-5.1 [facility] Comment on above: Order Comment: Speci men Type: BLOOD SPECIMENOrdering Facility: [facility] Address: [address] [place] [address] Performed By: #### 2 4323-8, LIPNF, 2131-12 ####[facility] LABCLIA [id number] [place] [address] [place] Protein [Mass/Vol] 7.9 g/dL Normal 6.3-8.0 [facility] Comment on above: Order Comment: Speci men Type: BLOOD SPECIMENOrdering Facility: [facility] Address: [address] [place] [address] Performed By: #### 2 4328, LIPNF, 2131-12 ####[facility] LABCLIA [id number] [place] [address] [place] Sodium [Moles/Vol] 139 mmol/L Normal 136-144 [facility] Comment on above: Order Comment: Speci men Type: BLOOD SPECIMENOrdering Facility: [facility] Address: [address] [place] [address] Performed By: #### 2 4328, LIPNF, 2131-12 ####[facility] LABCLIA [id number] [place] [id number] [place] Urea nitrogen [Mass/Vol] 21 mg/dL Normal 9-24 [facility] Comment on above: Order Comment: Speci men Type: BLOOD SPECIMENOrdering Facility: [facility] Address: [address] [place] [address] Performed By: #### 2 4323-8, LIPNF, 2131-12 ####[facility] LABCLIA [id number] [address] [address] [place] HbA1c (Bld)on 07-24-2024 Average glucose Estimated from glycated hemoglobin (Bld) [Mass/Vol] 171 mg/dL [facility] Comment on above: eAG: (Estimated aver age glucose) is a calculated value from HgbA1c and is sales solutions representative of the average blood glucose level in the last 2-3 month period. HbA1c (Bld) [Mass fraction] 7.6 % High 4.3 - 5.6 % [facility] Comment on above: [place] Diabetes As sociation guidelines indicate that patients with HgbA1c in the range 5.7-6.4% are at increased risk for development of diabetes, and intervention by lifestyle modification may be beneficial. HgbA1c greater or equal to 6.5% is considered diagnostic of diabetes. Interpretation and review of laboratory results Abnormal [facility] Average glucose Estimated from glycated hemoglobin (Bld) [Mass/Vol] 171 mg/dL Normal [facility] Comment on above: Order Comment: Lucho kidd Type: BLOOD SPECIMENOrdering Facility: [facility] Address: [address] [place] [address] Result Comment: eAG: (Estimated average glucose) is a calculated value from HgbA1c and is sales solutions representative of the average blood glucose level in the last 2-3 month period. Performed By: #### 5 5454-3 ####[facility] LABCLIA [id number] [address] STATES OF [facility] HbA1c (Bld) [Mass fraction] 7.6 % High 4.3-5.6 [facility] Comment on above: Order Comment: Lucho kidd Type: BLOOD SPECIMENOrdering Facility: [facility] Address: [address] [place] [address] Result Comment: [place] Diabetes Association guidelines indicate that patients with HgbA1c in the range 5.7-6.4% are at increased risk for development of diabetes, and intervention by lifestyle modification may be beneficial. HgbA1c greater or equal to 6.5% is considered diagnostic of diabetes. Performed By: #### 5 5454-3 ####[facility] LABCLIA [id number] [address] [address] [place] LIPID PANEL, NONFASTINGon Cholesterol [Mass/Vol] 213 mg/dL High NINF - 200 mg/dL [facility] Comment on above: <200 mg/dL, Desirabl e 200-239 mg/dL, Borderline high >239 mg/dL, High HDL Cholesterol, Nonfasting 44 mg/dL 39 - PINF mg/dL [facility] Comment on above: 40-59 mg/dL, Accepta ble >59 mg/dL, High: Negative risk factor for coronary heart disease <40 mg/dL, Low: Positive risk factor for coronary heart disease LDL Cholesterol, Nonfasting 133 mg/dL High NINF - 100 mg/dL [facility] Comment on above: <100 mg/dL, Optimal 100-129 mg/dL, Near optimal/above optimal 130-159 mg/dL, Borderline high 160-189 mg/dL, High >189 mg/dL, Very high Secondary prevention optimal LDL Cholesterol levels are recommended to be < 70 mg/dL LDL/HDL Ratio, Nonfasting 3.02 mg/dL High NINF - 2.54 mg/dL [facility] Comment on above: Reference: 1. National Cholesterol Education Program ATP III Guideline At-A-Glance Quick Desk Reference: National Heart, Lung, and Blood Post. National Institutes of Health. 2001: NIH Publication No. 01-3305. 2. An International Atherosclerosis Society position paper: global recommendations for the management of dyslipidemia: executive summary, Atherosclerosis. 2014: 232(2):410-413. Non HDL Cholesterol, Nonfasting 169 mg/dL High NINF - 130 mg/dL [facility] Comment on above: <130 mg/dL, Optimal 130-159 mg/dL, Near optimal/above optimal 160-189 mg/dL, Borderline high 190-219 mg/dL, High >219 mg/dL, Very high Secondary prevention optimal non HDL Cholesterol levels are recommended to be <100 mg/dL Total Chol/HDL Ratio, Nonfasting 4.84 mg/dL NINF - 5.10 mg/dL [facility] Triglycerides, Nonfasting 182 mg/dL High NINF - 150 mg/dL [facility] Comment on above: <150 mg/dL, Normal 150-199 mg/dL, Borderline high 200-499 mg/dL, High >499 mg/dL, Very high VLDL Cholesterol, Nonfasting 36 mg/dL High NINF - 30 mg/dL [facility] Cholesterol [Mass/Vol] 213 mg/dL High <200 [facility] Comment on above: Order Comment: Speci men Type: BLOOD SPECIMENOrdering Facility: [facility] Address: [address] [place] [address] Result Comment: <200 mg/dL, Desirable 200-239 mg/dL, Borderline high >239 mg/dL, High Performed By: #### 2 4323-8, LIPNF, 2131-12 ####[facility] LABCLIA [id number] [facility] [id number], [place] [address] [place] HDL CHOLESTEROL, NF 44 mg/dL Normal >39 [facility] Comment on above: Order Comment: Speci men Type: BLOOD SPECIMENOrdering Facility: [facility] Address: [address] [place] [address] Result Comment: 40-5 9 mg/dL, Acceptable >59 mg/dL, High: Negative risk factor for coronary heart disease <40 mg/dL, Low: Positive risk factor for coronary heart disease Performed By: #### 2 4323-8, LIPNF, 2131-12 ####[facility] LABCLIA [id number] [facility] [id number], [place] [address] [place] LDL CHOLESTEROL, NF 133 mg/dL High <100 [facility] Comment on above: Order Comment: Speci men Type: BLOOD SPECIMENOrdering Facility: [facility] Address: [address] [place] [address] Result Comment: <100 mg/dL, Optimal 100-129 mg/dL, Near optimal/above optimal 130-159 mg/dL, Borderline high 160-189 mg/dL, High >189 mg/dL, Very high Secondary prevention optimal LDL Cholesterol levels are recommended to be < 70 mg/dL Performed By: #### 2 4323-8, LIPNF, 2131-12 ####[facility] LABCLIA [id number] [facility] [id number] [address] [place] LDL/HDL RATIO, NF 3.02 mg/dL High <2.54 [facility] Comment on above: Order Comment: Speci men Type: BLOOD SPECIMENOrdering Facility: [facility] Address: [address] [place] [address] Result Comment: Conchita bateman: 1. National Cholesterol Education Program ATP III Guideline At-A-Glance Quick Desk Reference: National Heart, Lung, and Blood Post. National Institutes of Health. 2001: NIH Publication No. 01-3305. 2. An International Atherosclerosis Society position paper: global recommendations for the management of dyslipidemia: executive summary, Atherosclerosis. 2014: 232(2):410-413. Performed By: #### 2 4323-8, LIPNF, 2131-12 ####[facility] LABCLIA [id number] [place] [address] [place] NON HDL CHOL, NF 169 mg/dL High <130 [facility] Comment on above: Order Comment: Speci men Type: BLOOD SPECIMENOrdering Facility: [facility] Address: [address] [place] [address] Result Comment: <130 mg/dL, Optimal 130-159 mg/dL, Near optimal/above optimal 160-189 mg/dL, Borderline high 190-219 mg/dL, High >219 mg/dL, Very high Secondary prevention optimal non HDL Cholesterol levels are recommended to be <100 mg/dL Performed By: #### 2 432-8, LIPNF, 2131-12 ####[facility] LABCLIA [id number] [place] [address] [place] T CHOL/HDL RATIO NF 4.84 mg/dL Normal <5.10 [facility] Comment on above: Order Comment: Speci men Type: BLOOD SPECIMENOrdering Facility: [facility] Address: [address] [place] [address] Performed By: #### 2 4323-8, LIPNF, 2131-12 ####[facility] LABCLIA [id number] [place] [id number] [place] TRIGLYCERIDES, NF 182 mg/dL High <150 [facility] Comment on above: Order Comment: Speci men Type: BLOOD SPECIMENOrdering Facility: [facility] Address: [address] [place] [address] Result Comment: <150 mg/dL, Normal 150-199 mg/dL, Borderline high 200-499 mg/dL, High >499 mg/dL, Very high Performed By: #### 2 4323-8, LIPNF, 2131-12 ####[facility] LABCLIA [id number] [place] [address] [place] VLDL CHOLESTEROL, NF 36 mg/dL High <30 [facility] Comment on above: Order Comment: Speci men Type: BLOOD SPECIMENOrdering Facility: [facility] Address: [address] [place] [address] Performed By: #### 2 4323-8, LIPNF, 2131-12 ####[facility] LABCLIA [id number] [address] [place] No Panel Informationon 07-24 Interpretation and review of laboratory results Abnormal [facility] Urinalysis complete panel (U )on 07-24-2024 Bacteria LM.HPF (Urine sed) [#/Area] Negative Negative /HPF [facility] Bilirubin Ql (U) Negative Negative [facility] Clarity (Unsp spec) Clear [facility] Color (U) Yellow Yellow [facility] Epithelial cells LM.HPF (Urine sed) [#/Area] None Seen /HPF [facility] Glucose Test strip (U) [Mass/Vol] Negative Negative [facility] Hemoglobin Ql (U) Negative Negative [facility] Hyaline casts (Urine sed) [#/Area] 4-10 /LPF Abnormal 0 /LPF [facility] Interpretation and review of laboratory results Abnormal [facility] Ketones Ql (U) Negative Negative [facility] Leukocyte esterase Test strip Ql (U) Negative Negative [facility] Nitrite Ql (U) Negative Negative [facility] pH (U) 5.5 [pH] NINF - 8.5 [facility] Protein (U) [Mass/Vol] Negative Negative [facility] RBC LM.HPF (Urine sed) [#/Area] 0-2 /HPF 0-2 /HPF [facility] Specific gravity (U) [Rel density] 1.018 1.005 - 1.030 [facility] Urobilinogen Ql (U) 0.2 EU/dL 0.2-1.0 EU/dL [facility] WBC LM.HPF (Urine sed) [#/Area] 0-5 /HPF 0-5 /HPF [facility] This test was developed and its performance characteristics determined by [facility]'s [facility] ([facility]). It has not been cleared or approved by the FDA. [facility] is regulated under CLIA as qualified to perform high-complexity testing. This test is used for clinical purposes. It should not be regarded as investigational or for research. [facility] Bacteria LM.HPF (Urine sed) [#/Area] Negative Normal Negative [facility] Comment on above: Order Comment: Speci men Type: URINE SPECIMENOrdering Facility: [facility] Address: [address] [place] [address] Performed By: #### 2 4356-8 ####[facility] LABIA [id number] [place] [address] [place] Bilirubin Ql (U) Negative Normal Negative [facility] Comment on above: Order Comment: Speci men Type: URINE SPECIMENOrdering Facility: [facility] Address: [address] [place] [address] Performed By: #### 2 4356-8 ####[facility] LABIA [id number] [place] [address] [place] Clarity (Unsp spec) Clear Normal Clear [facility] Comment on above: Order Comment: Speci men Type: URINE SPECIMENOrdering Facility: [facility] Address: [address] [place] [address] Performed By: #### 2 4356-8 ####[facility] LABCLIA [id number] [place] [address] [place] Color (U) Yellow Normal Yellow [facility] Comment on above: Order Comment: Speci men Type: URINE SPECIMENOrdering Facility: [facility] Address: [address] [place] [address] Performed By: #### 2 4356-8 ####[facility] LABCLIA [id number] [place] [address] [place] [facility] Epithelial cells LM.HPF (Urine sed) [#/Area] None Seen Normal [facility] Comment on above: Order Comment: Speci men Type: URINE SPECIMENOrdering Facility: [facility] Address: [address] [place] [address] Performed By: #### 2 4356-8 ####[facility] LABCLIA [id number] [address] [place] Glucose Test strip (U) [Mass/Vol] Negative Normal Negative [facility] Comment on above: Order Comment: Speci men Type: URINE SPECIMENOrdering Facility: [facility] Address: [address] [place] [address] Performed By: #### 2 4356-8 ####[facility] LABCLIA [id number] [place] [address] [place] Hemoglobin Ql (U) Negative Normal Negative [facility] Comment on above: Order Comment: Speci men Type: URINE SPECIMENOrdering Facility: [facility] Address: [address] [place] [address] Performed By: #### 2 4356-8 ####[facility] LABCLIA [id number] [place] [address] [place] Hyaline casts (Urine sed) [#/Area] 4-10 /LPF Abnormal 0 /LPF [facility] Comment on above: Order Comment: Speci men Type: URINE SPECIMENOrdering Facility: [facility] Address: [address] [place] [address] Performed By: #### 2 4356-8 ####[facility] LABCLIA [id number] [place] [address] [place] Ketones Ql (U) Negative Normal Negative [facility] Comment on above: Order Comment: Speci men Type: URINE SPECIMENOrdering Facility: [facility] Address: [address] [place] [address] Performed By: #### 2 4356-8 ####[facility] LABCLIA [id number] [address] [place] [address] [place] Leukocyte esterase Test strip Ql (U) Negative Normal Negative [facility] Comment on above: Order Comment: Speci men Type: URINE SPECIMENOrdering Facility: [facility] Address: [address] [place] [address] Performed By: #### 2 4356-8 ####[facility] LABCLIA [id number] [address], [place] [address] [place] Nitrite Ql (U) Negative Normal Negative [facility] Comment on above: Order Comment: Speci men Type: URINE SPECIMENOrdering Facility: [facility] Address: [address] [place] [address] Performed By: #### 2 4356-8 ####[facility] LABCLIA [id number] [address], [place] [address] [place] pH (U) 5.5 [pH] Normal <8.5 [facility] Comment on above: Order Comment: Speci men Type: URINE SPECIMENOrdering Facility: [facility] Address: [address] [place] [address] Performed By: #### 2 4356-8 ####[facility] LABCLIA [id number] [address], [facility] [place] Protein (U) [Mass/Vol] Negative Normal Negative [facility] Comment on above: Order Comment: Speci men Type: URINE SPECIMENOrdering Facility: [facility] Address: [address] [place] [address] Performed By: #### 2 4356-8 ####[facility] LABCLIA [id number] [place] RBC LM.HPF (Urine sed) [#/Area] 0-2 /HPF Normal 0-2 /HPF [facility] Comment on above: Order Comment: Speci men Type: URINE SPECIMENOrdering Facility: [facility] Address: [address] [place] [address] Performed By: #### 2 4356-8 ####[facility] LABIA [id number] [place] [address] [place] Specific gravity (U) [Rel density] 1.018 Normal 1.005-1.030 [facility] Comment on above: Order Comment: Speci men Type: URINE SPECIMENOrdering Facility: [facility] Address: [address] [place] [address] Performed By: #### 2 4356-8 ####[facility] LABIA [id number] [address] [place] Urobilinogen Ql (U) 0.2 EU/dL Normal 0.2-1.0 EU/dL [facility] Comment on above: Order Comment: Speci men Type: URINE SPECIMENOrdering Facility: [facility] Address: [address] [place] [address] Performed By: #### 2 4356-8 ####[facility] LABIA [id number] [place] [address] [place] WBC LM.HPF (Urine sed) [#/Area] 0-5 /HPF Normal 0-5 /HPF [facility] Comment on above: Order Comment: Speci men Type: URINE SPECIMENOrdering Facility: [facility] Address: [address] [place] [address] Performed By: #### 2 4356-8 ####[facility] LABIA [id number] [place] [address] [place] VITAMIN B12on 07-24-2024 Cobalamin (Vitamin B12) [Mass/Vol] 529 pg/mL 232 - 1245 pg/mL [facility] Vit B12 SerPl-mCncon 07-24- 025 Cobalamin (Vitamin B12) [Mass/Vol] 529 pg/mL Normal 232-1245 [facility] Comment on above: Order Comment: Speci men Type: BLOOD SPECIMENOrdering Facility: [facility] Address: [address] [place] [address] [place] [address] Performed By: #### 2 4323-8, BERNADINE, 2132-9 ####[facility] LABCLIA [id number] [facility] SYSTEMKamar [place] [id number] [place] [address] STATES OF [facility] CNPLuisa 07-18-2024 CNPN Telephone (FAMPWS) KATHARINE CANO ([id number]) 1945 M Date Time Provider Department 07/18/24 CÉSAR MERRILL During your visit today, we recorded the following information about you: Zohreh Hughes, RN 07/18/2024 12:19 PM Signed Love from [facility] pharmacy in [place] calling in for refills for pt. She states pt called in for refill on his Baclofen and Gabapentin. Per [email or web address], last prescriptions for both of these were sent on 08/08/23 and were for 6 months total. Per Love, last time pt had them filled was in 10/2023 for 90 day supply. Discussed all of pt's meds with Love and it appears pt is not taking his Glimipiride or Metformin as he received 90 day supplies of those meds 155 days ago. Pt is taking his Losartan/HCTZ, Atenolol, Simvastatin correctly. Atenolol and Simvastatin prescribed by [facility]. Pt is set up for a physical on 08/12 with Katarzyna Munson. Pt is Orthodox and needs financially cleared for appt. Attempted to call pt and son Adelaida answered the phone and said pt is unavailable. Discussed with son about how pt is taking his medications and that perhaps we need to bring him in sooner for an appt to discuss med compliance. Son agreeable to this. César Merrill MD 07/18/2024 12:49 PM Signed Noted. Allergies As of Date: 07/18/2024 Noted Allergy Reaction DIOVAN (VALSARTAN) 02/09/2005 3 - Cough CRESTOR (ROSUVASTATIN CALCIUM) 11/01/2006 14 - Other: See Comments Comments: rash and sore muscles METFORMIN 08/01/2005 6 - Diarrhea ZINC 02/09/2005 5 - Intolerance Comments: chest pain Date Reviewed: 06/10/2024 Reviewed by: Jada Rivas MA - Fully Assessed Reason for Visit: Refill Request [94] Prescriptions as of 07/18/2024 - tamsulosin (FLOMAX) 0.4 mg Take 1 capsule by mouth daily at bedtime. Bringing good RX coupon. - pioglitazone (ACTOS) 45 mg tablet Take 1 tablet by mouth once daily. - metFORMIN ER (GLUCOPHAGE XR) 500 mg 24 hr tablet Take 2 in the morning with breakfast and two in the evening. - losartan-hydroCHLOROt hiazide (HYZAAR) 50-12.5 mg per tablet Take 1 tablet by mouth once daily. - glimepiride (AMARYL) 4 mg tablet Take 1 tablet by mouth two times a day with meals. - Cyanocobalamin 1,000 mcg TbER Take 1.5 tablets by mouth once daily. - baclofen 20 mg tablet Take 1 tablet by mouth daily at bedtime. - nitroglycerin sublingual (NITROQUICK) 0.4 mg SL tablet Dissolve 1 tablet under the tongue as directed. EVERY 5 MIN X3 - Flurbiprofen 100 mg tablet TAKE ONE TABLET BY MOUTH TWICE DAILY FOR ARTHRITIS, as needed - gabapentin (NEURONTIN) 100 mg capsule Take 1 capsule by mouth daily at bedtime for 180 days. For leg cramps - atenolol (TENORMIN) 25 mg tablet Take 1 tablet by mouth once daily. Per [facility] - ERGOCALCIFEROL, VITAMIN D2, (VITAMIN D2 ORAL) Take 2,000 Units by mouth. - simvastatin (ZOCOR) 80 mg tablet Take 1 tablet by mouth daily at bedtime. Per Dr. Barba - Aspirin 81 mg ORAL Tab Take 81 mg by mouth. Take (2) tablets in the morning Problem List As Of Date 07/18/2024 Noted Resolved Osteoarthritis [M19.90] 06/16/2005 Mixed hyperlipidemia [E78.2] 11/07/2005 Coronary atherosclerosis [I25.10] 05/02/2007 History of coronary artery stent placement [Z95*12/19/2012 KARLA (obstructive sleep apnea) [G47.33] 12/19/2012 Ex-smoker [Z87.891] 12/11/2016 Well adult exam [Z00.00] 12/11/2016 Phimosis [N47.1] 12/11/2016 Benign prostatic hyperplasia with urinary frequ*12/11/2016 Prostate disorder [N42.9] 12/11/2016 Hypertension, essential [I10] 12/11/2016 Screening for colon cancer [Z12.11] 12/11/2016 Diabetic eye exam (HCC) [Z01.00, E11.9] 01/11/2017 Type 2 diabetes mellitus without complication, *08/14/2017 Nocturnal leg cramps [G47.62] 02/22/2018 History of COVID-19 [Z86.16] 01/18/[address] [Z78.9] 11/15/2021 Advance directive discussed with patient [Z71.8*11/15/2021 Vitamin B12 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] 08/16/2023 Encounter Status:Closed by CÉSAR MERRILL on 07/18/24 [facility] Cardiology Visit Reporton Cardiology Visit Report [facility] [address] [place] [address] OFFICE VISIT Date of Service: 07/10/24 MR#: [id number] Acct: [id number] Name: JEROMEKATHARINE Rep #: [id number] : 1945 Provider: Dr. London ghosh MD Age/Sex: 79/M Location: [facility] Status: Signed HPI HPI History of Present Illness Details: Patient is a very pleasant 79-year-old Orthodox white male that comes in today for monitoring of his cardiovascular status. Patient is 26 years out from a PCI of the right coronary artery [place] [address] Tobar. He also has a history of hyperlipidemia and hypertension. The patient denies any recurrence of his burning mid retrosternal discomfort that was his anginal equivalent back in 1997. He is fairly active in his home environment he has some chronic dyspnea on exertion and chronic bilateral dependent lower extremity edema. None of this is changed over the past year. Patient's last lipids that we have are from June 2022 his total cholesterol was 110 HDL 49, LDL 34, and triglycerides 135. The patient also carries a history of hypertension reports his blood pressure in his home environment is adequately controlled. Today in the office it was 142/65 with a heart rate of 55. Patient denies any syncope or near syncope denies any lightheaded spells reports that he is doing fairly well in his home environment. 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 Accompanied by: Is patient in pain?: No Allergies rosuvastatin (From [employer]) Allergy (Intermediate, Verified 07/10/24 09:30) Rash Medications ???Medication ???Instructions ???Recorded ???Confirmed ???Type nitroglycerin 0.4 mg sublingual 0.4 mg sublingual Q5-15M PRN chest 11/04/18 07/10/24 Rx tablet pain #25 tabs baclofen 20 mg tablet 20 mg PO QHS Check with primary 07/10/24 [address] tamsulosin 0.4 mg capsule 0.4 mg PO QHS Check with primary 1 07/10/24 History doctor gabapentin 100 mg capsule 100 mg PO QHS 07/21/21 07/10/24 Hi story pioglitazone 45 mg tablet 45 mg PO DAILY 07/21/21 07/10/24 H istory glimepiride 4 mg tablet 4 mg PO BID 01/11/22 07/10/24 Hist ory atenolol 25 mg tablet 25 mg PO DAILY #90 tabs 09/26/23 0 07/10/24 Rx losartan 50 mg-hydrochlorothiazid e 1 tab PO DAILY #90 tabs 01/03/24 07/10/24 Rx 12.5 mg tablet simvastatin 80 mg tablet 80 mg PO QHS #90 TABLETS 01/03/24 07/10/24 Rx aspirin 81 mg chewable tablet 162 mg (2 x 81 mg) PO QDAY #60 tab s 07/10/24 07/10/24 Rx (Manan Chewable Low Dose Aspirin) Ejection fraction %: 60 Have you fallen in the past year?: No PFSH Medical History Wears hearing aid Wears glasses Wears dentures Diabetes Prostate disease High cholesterol Back pain Dietary restriction Former smoker Shortness of breath on exertion Leg cramps History of edema History of stress test History of echocardiogram Cardiology follow-up encounter History of rheumatic fever Essential hypertension Arthritis CPAP (continuous positive airway pressure) dependence Acute and chronic respiratory failure with hypoxia Hyperlipidemia Nonrheumatic mitral (valve) prolapse History of anterior wall myocardial infarction Stented coronary artery ( 08/01/97) 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 Sister , age 57 of renal cancer Renal cancer Social History household members: spouse Smoking Status: Former smoker alcohol intake: current alcohol intake frequency: other substance use type: does not use ROS Const Const: Positive for fatigue (attributes to back surgery); Negative for weakness ENT ENT: Negative for dizziness or balance problems Cardio Chest Pain: No Palpitations: No Edema (more content not included)... 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 Symptoms are staying the same. Associated symptoms includes facial pain/pressure and cough. Denies wheezing, dyspnea, fatigue, nausea, vomiting , and diarrhea. Treatments tried include nothing so far. with no relief of symptoms. Sick contacts: unknown. History of asthma, frequent episodes of bronchitis, chronic bronchitis, bronchiectasis or COPD: No Smoker: No Seasonal/environmenta l allergies: No The ROS is otherwise negative. The patient's pmh, medications, allergies, and past visits are reviewed. PHYSICAL EXAM: BP 142/72 Pulse 92 Temp 37.1 ?C (98.7 ?F) Resp 18 Wt 105.1 kg (231 lb 11.3 oz) SpO2 94% BMI 39.16 kg/m? General appearance: alert, cooperative, pleasant, in no acute distress Head: Normocephalic Eyes: EOM's intact, conjunctiva pink and moist, no icterus, sclera white, non-injected Ears: Right ear: External ear/canal- Normal, TM - clear with good landmarks. Left ear: External ear/canal- Normal, TM - clear with good landmarks Oropharynx:moist without lesions, No erythema, exudates or tonsillar hypertrophy. Heart: Negative. RRR without obvious murmur, gallop, or rubs. No ectopy. Lungs: clear to auscultation, without rales or wheeze, good air exchange PAST MEDICAL HISTORY Diagnosis Date Advance directive discussed with patient 11/15/2021 Discussed 10/2021 Benign prostatic hyperplasia with urinary frequency 12/11/2016 Coronary atherosclerosis 05/02/2007 COVID-19 virus infection 01/18/202112/2020 Diabetic eye exam (HCC) 01/11/2017 Last Done: 12/09/2018, No Retinopathy Ex-smoker 12/11/2016 Started at age 17 yo, Up to 7-10 pipes a day. Quite at age 53, [place] 11/2015 neg for AAA History of coronary artery stent placement 12/19/2012 Hypertension, essential 12/11/[address] 11/15/2021 DPA: Wilfredo (son) Mixed hyperlipidemia 11/07/2005 Nocturnal leg cramps 02/22/2018 KARLA (obstructive sleep apnea) 12/19/2012 Phimosis 12/11/2016 Type 2 diabetes mellitus without complication, without long-term current use of insulin (HCC) 08/14/2017 PAST SURGICAL HISTORY Procedure Laterality Date 2D ECHO (EXEP) 11/19/2018 EF 55%, stage 1 Diast Dysf, NO change from 04/2011 ARTHRP KNE CONDYLEANDPLATU MEDIALANDLAT COMPARTMENTS Right ARTHRP KNE CONDYLEANDPLATU MEDIALANDLAT COMPARTMENTS Left FECAL OCCULT BLOOD TEST 05/26/2019 negative PAST SURGICAL HISTORY OF 07/09/2017 right carpal tunnel repair PAST SURGICAL HISTORY OF 09/2017 C6, C7 block and plates PAST SURGICAL HISTORY OF 04/12/2023 lumbar surgery PAST SURGICAL HISTORY OF 03/2023 Spinal fusion L3-L4 STRESS TEST 09/27/2017 negative ALLERGIES Diovan [Valsartan], Crestor [Rosuvastatin Calcium], Metformin, and Zinc MEDICATIONS tamsulosin (FLOMAX) 0.4 mg Take 1 capsule by mouth daily at bedtime. Bringing good RX coupon. pioglitazone (ACTOS) 45 mg tablet Take 1 tablet by mouth once daily. metFORMIN ER (GLUCOPHAGE XR) 500 mg 24 hr tablet Take 2 in the morning with breakfast and two in the evening. losartan-hydroCHLOROt hiazide (HYZAAR) 50-12.5 mg per tablet Take 1 tablet by mouth once daily. glimepiride (AMARYL) 4 mg tablet Take 1 tablet by mouth two times a day with meals. Cyanocobalamin 1,000 mcg TbER Take 1.5 tablets by mouth once daily. baclofen 20 mg tablet Take 1 tablet by mouth daily at bedtime. nitroglycerin sublingual (NITROQUICK) 0.4 mg SL tablet Dissolve 1 tablet under the tongue as directed. EVERY 5 MIN X3 Flurbiprofen 100 mg tablet TAKE ONE TABLET BY MOUTH TWICE DAILY FOR ARTHRITIS, as needed atenolol (TENORMIN) 25 mg tablet Take 1 tablet by mouth once daily. Per [facility] ERGOCALCIFEROL, VITAMIN D2, (VITAMIN D2 ORAL) Take 2,000 Units by mouth. simvastatin (ZOCOR) 80 mg tablet Take 1 tablet by mouth daily at bedtime. Per Dr. Barba Aspirin 81 mg ORAL Tab Take 81 mg by mouth. Take (2) tablets in the morning doxycycline (VIBRA-TABS) 100 mg tablet Take 1 tablet by mouth two times a day for 7 days. gabapentin (NEURONTIN) 100 mg capsule Take 1 capsule by mouth daily at bedtime for 180 days. For leg cramps FAMILY HISTORY Problem Relation Age of Onset Coronary Artery Disease Father after CABG at 81 Cancer Sister renal Kidney Disease Brother other (Lavon's) Brother Can (more content not included)... Normal [facility] 02-15-[address] [facility] KATHARINE CANO ([id number]) 1945 M Date Time Provider Department 02/15/24 [facility]LL [facility] During your visit today, we recorded the following information about you: César Merrill MD 02/15/2024 10:04 AM Signed Let Katharine know that his recent labs along with his 's recent labs were ok. Demarcus Higginbotham LPN 02/15/2024 11:46 AM Signed Left message of pt and pt's results on pt's vm. Demarcus Higginbotham LPN Allergies As of Date: 02/15/2024 Noted Allergy Reaction DIOVAN (VALSARTAN) 02/09/2005 3 - Cough CRESTOR (ROSUVASTATIN CALCIUM) 11/01/2006 14 - Other: See Comments Comments: rash and sore muscles METFORMIN 08/01/2005 6 - Diarrhea ZINC 02/09/2005 5 - Intolerance Comments: chest pain Date Reviewed: 02/14/2024 Reviewed by: César Merrill MD - Fully Assessed Reason for Visit: Results [95] Prescriptions as of 02/15/2024 - tamsulosin (FLOMAX) 0.4 mg Take 1 capsule by mouth daily at bedtime. Bringing good RX coupon. - pioglitazone (ACTOS) 45 mg tablet Take 1 tablet by mouth once daily. - metFORMIN ER (GLUCOPHAGE XR) 500 mg 24 hr tablet Take 2 in the morning with breakfast and two in the evening. - losartan-hydroCHLOROt hiazide (HYZAAR) 50-12.5 mg per tablet Take 1 tablet by mouth once daily. - glimepiride (AMARYL) 4 mg tablet Take 1 tablet by mouth two times a day with meals. - Cyanocobalamin 1,000 mcg TbER Take 1.5 tablets by mouth once daily. - baclofen 20 mg tablet Take 1 tablet by mouth daily at bedtime. - nitroglycerin sublingual (NITROQUICK) 0.4 mg SL tablet Dissolve 1 tablet under the tongue as directed. EVERY 5 MIN X3 - Flurbiprofen 100 mg tablet TAKE ONE TABLET BY MOUTH TWICE DAILY FOR ARTHRITIS, as needed - gabapentin (NEURONTIN) 100 mg capsule Take 1 capsule by mouth daily at bedtime for 180 days. For leg cramps - atenolol (TENORMIN) 25 mg tablet Take 1 tablet by mouth once daily. Per [facility] - ERGOCALCIFEROL, VITAMIN D2, (VITAMIN D2 ORAL) Take 2,000 Units by mouth. - simvastatin (ZOCOR) 80 mg tablet Take 1 tablet by mouth daily at bedtime. Per Dr. Barba - Aspirin 81 mg ORAL Tab Take 81 mg by mouth. Take (2) tablets in the morning Problem List As Of Date 02/15/2024 Noted Resolved Osteoarthritis [M19.90] 06/16/2005 Mixed hyperlipidemia [E78.2] 11/07/2005 Coronary atherosclerosis [I25.10] 05/02/2007 History of coronary artery stent placement [Z95*12/19/2012 KARLA (obstructive sleep apnea) [G47.33] 12/19/2012 Ex-smoker [Z87.891] 12/11/2016 Well adult exam [Z00.00] 12/11/2016 Phimosis [N47.1] 12/11/2016 Benign prostatic hyperplasia with urinary frequ*12/11/2016 Prostate disorder [N42.9] 12/11/2016 Hypertension, essential [I10] 12/11/2016 Screening for colon cancer [Z12.11] 12/11/2016 Diabetic eye exam (HCC) [Z01.00, E11.9] 01/11/2017 Type 2 diabetes mellitus without complication, *08/14/2017 Nocturnal leg cramps [G47.62] 02/22/2018 History of COVID-19 [Z86.16] 01/18/[address] [Z78.9] 11/15/2021 Advance directive discussed with patient [Z71.8*11/15/2021 Vitamin B12 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] 08/16/2023 Encounter Status:Closed by DEMARCUS HIGGINBOTHAM on 02/15/24 [facility] CNOVon 02-14-2024 CNOV Office Visit (FAMPWS ) JEROMEKATHARINE ([id number]) 1945 M Date Time Provider Department 02/14/24 9:20 AM CÉSAR MERRILLPWS During your visit today, we recorded the following information about you: Pulse Blood pressure Weight Height 59/minute 132/58 100.2 kg 1.638 m César Merrill MD 02/14/2024 4:20 PM Signed Chief Complaint Patient presents with: 6 Month Exam HPI Katharine Galvin Jerome is a 78 year old male who presents here today for 6 month follow up. Patient with hx of CAD, HTN, hyperlipidemia, KARLA, DM2, BPH, and those as below. Patient has been doing ok. Having pain in the left hip and seeing ortho. No new issues Component Ref Range AND Units 6 mo ago (08/08/23) 1 yr ago (05/31/22) 2 yr ago (11/15/21) 2 yr ago (05/12/21) 3 yr ago (10/27/20) 5 yr ago (08/15/18) 5 yr ago (02/18/18) Hemoglobin A1C 4.3 - 5.6 % 6.4 High 6.3 High CM 7.0 High CM 9.7 High CM 8.7 High CM 6.8 High CM 7.0 High Past medical history, appointments, medications, allergies reviewed. Previous Medical History PAST MEDICAL HISTORY Diagnosis Date Advance directive discussed with patient 11/15/2021 Discussed 10/2021 Benign prostatic hyperplasia with urinary frequency 12/11/2016 Coronary atherosclerosis 05/02/2007 COVID-19 virus infection 01/18/202112/2020 Diabetic eye exam (HCC) 01/11/2017 Last Done: 12/09/2018, No Retinopathy Ex-smoker 12/11/2016 Started at age 17 yo, Up to 7-10 pipes a day. Quite at age 53, US 11/2015 neg for AAA History of coronary artery stent placement 12/19/2012 Hypertension, essential 12/11/[address] 11/15/2021 DPA: Wilfredo (son) Mixed hyperlipidemia 11/07/2005 Nocturnal leg cramps 02/22/2018 KARLA (obstructive sleep apnea) 12/19/2012 Phimosis 12/11/2016 Type 2 diabetes mellitus without complication, without long-term current use of insulin (HCC) 08/14/2017 Previous Surgical History PAST SURGICAL HISTORY Procedure Laterality Date 2D ECHO (EXEP) 11/19/2018 EF 55%, stage 1 Diast Dysf, NO change from 04/2011 ARTHRP KNE CONDYLEANDPLATU MEDIALANDLAT COMPARTMENTS Right ARTHRP KNE CONDYLEANDPLATU MEDIALANDLAT COMPARTMENTS Left FECAL OCCULT BLOOD TEST 05/26/2019 negative PAST SURGICAL HISTORY OF 07/09/2017 right carpal tunnel repair PAST SURGICAL HISTORY OF 09/2017 C6, C7 block and plates PAST SURGICAL HISTORY OF 04/12/2023 lumbar surgery PAST SURGICAL HISTORY OF 03/2023 Spinal fusion L3-L4 STRESS TEST 09/27/2017 negative Family History FAMILY HISTORY Problem Relation Age of Onset Coronary Artery Disease Father after CABG at 81 Cancer Sister renal Kidney Disease Brother other (Lavon's) Brother Cancer Brother Coronary Artery Disease Paternal Uncle 70's COPD No Family History Cystic Fibrosis No Family History Patient Allergies ALLERGIES Allergen Reactions Diovan [Valsartan] Cough Crestor [Rosuvastat* Other: See Comments rash and sore muscles Metformin Diarrhea Zinc Intolerance chest pain Current Medications Current Outpatient Medications on File Prior to Visit Medication Sig Cyanocobalamin 1,000 mcg TbER Take 1.5 tablets by mouth once daily. baclofen 20 mg tablet Take 1 tablet by mouth daily at bedtime. metFORMIN ER (GLUCOPHAGE XR) 500 mg 24 hr tablet Take 2 in the morning with breakfast and two in the evening. tamsulosin (FLOMAX) 0.4 mg Take 1 capsule by mouth daily at bedtime. Bringing good RX coupon. pioglitazone (ACTOS) 45 mg tablet Take 1 tablet by mouth once daily. losartan-hydroCHLOROt hiazide (HYZAAR) 50-12.5 mg per tablet Take 1 tablet by mouth once daily. glimepiride (AMARYL) 4 mg tablet Take 1 tablet by mouth two times a day with meals. nitroglycerin sublingual (NITROQUICK) 0.4 mg SL tablet Dissolve 1 tablet under the tongue as directed. EVERY 5 MIN X3 Flurbiprofen 100 mg tablet TAKE ONE TABLET BY MOUTH TWICE DAILY FOR ARTHRITIS, as needed gabapentin (NEURONTIN) 100 mg capsule Take 1 capsule by mouth daily at bedtime for 180 days. For leg cramps atenolol (TENORMIN) 25 mg tablet Take 1 tablet by mouth once daily. Per [facility] ERGOCALCIFEROL, VITAMIN D2, (VITAMIN D2 ORAL) Take 2,000 Units by mouth. simvastatin (ZOCOR) 80 mg tablet Take 1 tablet by mouth daily at bedtime. Per Dr. Barba Aspirin 81 mg ORAL Tab Take 81 mg by mouth. Take (2) tablets in the morning No current facility-administered medications on file prior to visit. Social History Social History Tobacco Use Smoking status: Former Current packs/day: 0.00 Types: Cigarettes Start date: 1963 Quit date: 07/29/1997 Years since quittin.5 Smokeless tobacco: Former Vaping Use Vaping status: Never Used Substance Use Topics Alcohol use: No Drug use: No Review of Symptoms REVIEW OF SYSTEMS GENERAL: No weight loss, malaise or fevers NECK: Negative for lumps, goiter, pain an (more content not included)... Normal [facility] Cobalamin (Vitamin B12) [Mas s/Vol]on 02-14-2024 Interpretation and review of laboratory results Normal [facility] HbA1c (Bld)on 02-14-2024 Average glucose Estimated from glycated hemoglobin (Bld) [Mass/Vol] 140 mg/dL [facility] Comment on above: eAG: (Estimated aver age glucose) is a calculated value from HgbA1c and is sales solutions representative of the average blood glucose level in the last 2-3 month period. HbA1c (Bld) [Mass fraction] 6.5 % High 4.3 - 5.6 % [facility] Comment on above: [place] Diabetes As sociation guidelines indicate that patients with HgbA1c in the range 5.7-6.4% are at increased risk for development of diabetes, and intervention by lifestyle modification may be beneficial. HgbA1c greater or equal to 6.5% is considered diagnostic of diabetes. Interpretation and review of laboratory results Abnormal [facility] Average glucose Estimated from glycated hemoglobin (Bld) [Mass/Vol] 140 mg/dL Normal [facility] Comment on above: Order Comment: Lucho kidd Type: BLOOD SPECIMENOrdering Facility: [facility] Address: [address] [place] [address] Result Comment: eAG: (Estimated average glucose) is a calculated value from HgbA1c and is sales solutions representative of the average blood glucose level in the last 2-3 month period. Performed By: #### 5 5454-3 ####[facility] LABCLIA [id number] [place] [address] [place] HbA1c (Bld) [Mass fraction] 6.5 % High 4.3-5.6 [facility] Comment on above: Order Comment: Lucho kidd Type: BLOOD SPECIMENOrdering Facility: [facility] Address: [address] [place] [address] Result Comment: [place] Diabetes Association guidelines indicate that patients with HgbA1c in the range 5.7-6.4% are at increased risk for development of diabetes, and intervention by lifestyle modification may be beneficial. HgbA1c greater or equal to 6.5% is considered diagnostic of diabetes. Performed By: #### 5 5454-3 ####[facility] LABCLIA [id number] [place] [address] [place] VITAMIN B12on 02-14-2024 Cobalamin (Vitamin B12) [Mass/Vol] 480 pg/mL 232 - 1245 pg/mL [facility] Vit B12 SerPl-mCncon 024 Cobalamin (Vitamin B12) [Mass/Vol] 480 pg/mL Normal 232-1245 [facility] Comment on above: Order Comment: Speci men Type: BLOOD SPECIMENOrdering Facility: [facility] Address: [address] [place] [address] Performed By: #### 2 [id number] ####[facility] LABCLIA [id number] [address] [place] CNPNon 08-16-[address] [facility] Telephone ([facility]) KATHARINE CANO ( ) 1945 M Date Time Provider Department 08/16/23 CÉSAR MERRILL [facility] During your visit today, we recorded the following information about you: César Merrill MD 08/16/2023 10:38 AM Signed Let patient know his iron studies and folate were ok. His B12 is pretty low and most likely the source of his anemia. I want him to start taking an OTC form of B12 at 1000 mcg once a day. I placed an order to get his B12 and CBC repeated in a month. Valerie Johnson LPN 08/16/2023 10:13 AM Signed Message left for patient's son Adelaida to return call to review patient's results and provider's recommendations. Jeannette Oliveira RN 08/16/2023 10:38 AM Signed Patient's son Atlee calls and notified of results and provider instructions. Atlee voices understanding. Jeannette Oliveira RN Allergies As of Date: 08/16/2023 Noted Allergy Reaction DIOVAN (VALSARTAN) 02/09/2005 3 - Cough CRESTOR (ROSUVASTATIN CALCIUM) 11/01/2006 14 - Other: See Comments Comments: rash and sore muscles METFORMIN 08/01/2005 6 - Diarrhea ZINC 02/09/2005 5 - Intolerance Comments: chest pain Date Reviewed: 08/08/2023 Reviewed by: César Merrill MD - Fully Assessed Reason for Visit: Results [95] Primary Visit Diagnosis:Vitamin B12 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] Order(s):VITAMIN B12 [SQB12] Order #: [id number] FUTURE COMPLETE BLOOD COUNT AND DIFFERENTIAL [SQCBCDIF] Order #: [id number] FUTURE Cyanocobalamin 1,000 mcg TbERTake 1 tablet by mouth once daily.Disp: Rfl: Prescriptions as of 08/16/2023 - Cyanocobalamin 1,000 mcg TbER Take 1 tablet by mouth once daily. - baclofen 20 mg tablet Take 1 tablet by mouth daily at bedtime. - metFORMIN ER (GLUCOPHAGE XR) 500 mg 24 hr tablet Take 2 in the morning with breakfast and two in the evening. - tamsulosin (FLOMAX) 0.4 mg Take 1 capsule by mouth daily at bedtime. Bringing good RX coupon. - pioglitazone (ACTOS) 45 mg tablet Take 1 tablet by mouth once daily. - losartan-hydroCHLOROt hiazide (HYZAAR) 50-12.5 mg per tablet Take 1 tablet by mouth once daily. - glimepiride (AMARYL) 4 mg tablet Take 1 tablet by mouth two times a day with meals. - nitroglycerin sublingual (NITROQUICK) 0.4 mg SL tablet Dissolve 1 tablet under the tongue as directed. EVERY 5 MIN X3 - Flurbiprofen 100 mg tablet TAKE ONE TABLET BY MOUTH TWICE DAILY FOR ARTHRITIS, as needed - gabapentin (NEURONTIN) 100 mg capsule Take 1 capsule by mouth daily at bedtime for 180 days. For leg cramps - atenolol (TENORMIN) 25 mg tablet Take 1 tablet by mouth once daily. Per [facility] - ERGOCALCIFEROL, VITAMIN D2, (VITAMIN D2 ORAL) Take 2,000 Units by mouth. - simvastatin (ZOCOR) 80 mg tablet Take 1 tablet by mouth daily at bedtime. Per Dr. Barba - Aspirin 81 mg ORAL Tab Take 81 mg by mouth. Take (2) tablets in the morning Problem List As Of Date 08/16/2023 Noted Resolved Osteoarthritis [M19.90] 06/16/2005 Mixed hyperlipidemia [E78.2] 11/07/2005 Coronary atherosclerosis [I25.10] 05/02/2007 History of coronary artery stent placement [Z95*12/19/2012 KARLA (obstructive sleep apnea) [G47.33] 12/19/2012 Ex-smoker [Z87.891] 12/11/2016 Well adult exam [Z00.00] 12/11/2016 Phimosis [N47.1] 12/11/2016 Benign prostatic hyperplasia with urinary frequ*12/11/2016 Prostate disorder [N42.9] 12/11/2016 Hypertension, essential [I10] 12/11/2016 Screening for colon cancer [Z12.11] 12/11/2016 Diabetic eye exam (HCC) [Z01.00, E11.9] 01/11/2017 Type 2 diabetes mellitus without complication, *08/14/2017 Nocturnal leg cramps [G47.62] 02/22/2018 History of COVID-19 [Z86.16] 01/18/[address] [Z78.9] 11/15/2021 Advance directive discussed with patient [Z71.8*11/15/2021 Vitamin B12 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] 08/16/2023 Prescriptions ordered this encounter Disp Refills Start End CYANOCOBALAMIN (VIT B-12) ER 1,000 M* 08/16/2023 Class: OTC Route: ORAL Sig: Take 1 tablet by mouth once daily. Encounter Status:Closed by JEANNETTE OLIVEIRA on 08/16/23 Normal [facility] ALBUMIN/CREATININE RATIO, UR SHERLEYon 08-08-2023 Albumin DL <= 20 mg/L (U) [Mass/Vol] [facility] Albumin/Creatinine (U) [Mass ratio] <30 mg/g [facility] Creatinine (U) [Mass/Vol] 92.5 mg/dL 20.0 - 300.0 mg/dL [facility] CBC W Auto Differential pane l (Bld)on 08-08-2023 Basophils (Bld) [#/Vol] 0.04 10*3/uL <0.11 k/uL [facility] Basophils/100 WBC (Bld) 0.8 % [facility] Differential cell count method Nom (Bld) Auto [facility] Eosinophils (Bld) [#/Vol] 0.14 10*3/uL <0.46 k/uL [facility] Eosinophils/100 WBC (Bld) 2.9 % [facility] Erythrocyte distribution width (RBC) [Ratio] 14.6 % 11.5 - 15.0 % [facility] Hematocrit (Bld) [Volume fraction] 39.3 % 39.0 - 51.0 % [facility] Hemoglobin (Bld) [Mass/Vol] 12.7 g/dL Low 13.0 - 17.0 g/dL [facility] Immature granulocytes (Bld) [#/Vol] <0.10 k/uL [facility] Immature granulocytes/100 WBC (Bld) 0.2 % [facility] Lymphocytes (Bld) [#/Vol] 1.94 10*3/uL 1.00 - 4.00 k/uL [facility] Lymphocytes/100 WBC (Bld) 40.8 % [facility] MCH (RBC) [Entitic mass] 32.5 pg 26.0 - 34.0 pg [facility] MCHC (RBC) [Mass/Vol] 32.3 g/dL 30.5 - 36.0 g/dL [facility] MCV (RBC) [Entitic vol] 100.5 fL High 80.0 - 100.0 fL [facility] Monocytes (Bld) [#/Vol] 0.59 10*3/uL <0.87 k/uL [facility] Monocytes/100 WBC (Bld) 12.4 % [facility] Neutrophils (Bld) [#/Vol] 2.03 10*3/uL 1.45 - 7.50 k/uL [facility] Neutrophils/100 WBC (Bld) 42.9 % [facility] Nucleated RBC (Bld) [#/Vol] <0.01 k/uL [facility] Nucleated RBC/100 WBC (Bld) [Ratio] 0.0 /100 WBC [facility] Platelet mean volume (Bld) [Entitic vol] 9.9 fL 9.0 - 12.7 fL [facility] Platelets (Bld) [#/Vol] 179 10*3/uL 150 - 400 k/uL [facility] RBC (Bld) [#/Vol] 3.91 10*6/uL Low 4.20 - 6.0 0 m/uL [facility] WBC (Bld) [#/Vol] 4.75 10*3/uL 3.70 - 11. 00 k/uL [facility] Comprehensive metabolic 2000 panelon 08-08-2023 Albumin [Mass/Vol] 4.1 g/dL 3.9 - 4.9 g/dL [facility] ALP [Catalytic activity/Vol] 71 U/L 38 - 113 U/L [facility] ALT [Catalytic activity/Vol] 12 U/L 10 - 54 U/L [facility] Anion gap [Moles/Vol] 12 mmol/L 9 - 18 mmol/L [facility] AST [Catalytic activity/Vol] 20 U/L 14 - 40 U/L [facility] Bilirubin [Mass/Vol] 0.4 mg/dL 0.2 - 1 .3 mg/dL [facility] Calcium [Mass/Vol] 9.8 mg/dL 8.5 - 10. 2 mg/dL [facility] Chloride [Moles/Vol] 105 mmol/L 97 - 10 5 mmol/L [facility] CO2 [Moles/Vol] 25 mmol/L 22 - 30 mmol/L [facility] Creatinine [Mass/Vol] 1.17 mg/dL 0.73 - 1.22 mg/dL [facility] Estimated Glomerular Filtration Rate 64 mL/min/1.73m >=60 mL/min/1.73m [facility] Glucose [Mass/Vol] 108 mg/dL High 74 - 99 mg/dL [facility] Potassium [Moles/Vol] 4.2 mmol/L 3.7 - 5.1 mmol/L [facility] Protein [Mass/Vol] 7.3 g/dL 6.3 - 8.0 g/dL [facility] Sodium [Moles/Vol] 142 mmol/L 136 - 144 mmol/L [facility] Urea nitrogen [Mass/Vol] 17 mg/dL 9 - 24 mg/dL [facility] HbA1c (Bld)on 08-08-2023 Average glucose Estimated from glycated hemoglobin (Bld) [Mass/Vol] 137 mg/dL [facility] HbA1c (Bld) [Mass fraction] 6.4 % High 4.3 - 5.6 % [facility] LIPID PANEL, NONFASTINGon Cholesterol [Mass/Vol] 133 mg/dL <200 mg/dL [facility] HDL Cholesterol, Nonfasting 41 mg/dL >39 mg/dL [facility] LDL Cholesterol, Nonfasting 64 mg/dL <100 mg/dL [facility] LDL/HDL Ratio, Nonfasting 1.56 mg/dL <2.54 mg/dL [facility] Non HDL Cholesterol, Nonfasting 92 mg/dL <130 mg/dL [facility] Total Chol/HDL Ratio, Nonfasting 3.24 mg/dL <5.10 mg/dL [facility] Triglycerides, Nonfasting 142 mg/dL <150 mg/dL [facility] VLDL Cholesterol, Nonfasting 28 mg/dL <30 mg/dL [facility] PROSTATE-SPECIFIC ANTIGEN DI AGNOSTICon 08-08-2023 Prostate specific Ag [Mass/Vol] 1.92 ng/mL <2.60 ng/mL [facility] Urinalysis complete panel (U )on 08-08-2023 Bacteria LM.HPF (Urine sed) [#/Area] Negative Negative /HPF [facility] Bilirubin Ql (U) Negative Negative [facility] Clarity (Unsp spec) Clear [facility] Color (U) Yellow Yellow [facility] Epithelial cells LM.HPF (Urine sed) [#/Area] None Seen [facility] Glucose Test strip (U) [Mass/Vol] Negative Negative [facility] Hemoglobin Ql (U) Negative Negative [facility] Hyaline casts (Urine sed) [#/Area] 0 /[LPF] 0 /LPF [facility] Ketones Ql (U) Negative Negative [facility] Leukocyte esterase Test strip Ql (U) Negative Negative [facility] Nitrite Ql (U) Negative Negative [facility] pH (U) 6.0 [pH] <8.5 [facility] Protein (U) [Mass/Vol] Negative Negative [facility] RBC LM.HPF (Urine sed) [#/Area] 0-2 /HPF 0-2 /HPF [facility] Specific gravity (U) [Rel density] 1.015 1.005 - 1.030 [facility] Urobilinogen Ql (U) 0.2 EU/dL 0.2-1.0 EU/dL [facility] WBC LM.HPF (Urine sed) [#/Area] 0-5 /HPF 0-5 /HPF [facility] Glucose Glucometer (BldC) [M ass/Vol]Ordered By: César Tijerina on 04-14-2023 Glucose [Mass/Vol] 233 mg/dL 74-106 [facility] Comment on above: MANAGEMENT OF PATIEN T CARE PER NURSING PROTOCOL Absolute lymphocyte countOrd ered By: Lenore Robledo on 04-13-2023 Lymphocytes Auto (Unsp spec) [#/Vol] 1.45 10*3/uL 0.83-4.51 [facility] Basophil percentageOrdered B y: Lenore Robledo on 04-13-2023 Basophils/100 WBC (Bld) 0.4 % 0-1 [facility] Chloride [Moles/Vol] 106 mmol/L 98-107 [facility] Eosinophils/100 WBC (Bld) 0.1 % 0-5 [facility] Glucose [Mass/Vol] 229 mg/dL 74-106 [facility] Comment on above: Glucose result great er than or equal to 200 mg/dLsuggests DIABETES MELLITUS per A.D.A. criteria. Neutrophils (Bld) [#/Vol] 5.8 10*3/uL 2.0-7.7 [facility] Neutrophils/100 WBC (Bld) 69.9 % 47-70 [facility] Potassium [Moles/Vol] 3.9 mmol/L 3.5-5.1 [facility] Sodium [Moles/Vol] 137 mmol/L 136-145 [facility] WBC (Bld) [#/Vol] 8.3 10*3/uL 4.4-11.0 [facility] Blood erythrocytes count (nu mber/volume)Ordered By: Lenore Robledo on 04-13-2023 RBC (Bld) [#/Vol] 3.28 10*6/uL 4.6-6.2 [facility] Blood hemoglobin measurement (mass/volume)Ordered By: Lenore Robledo on 04-13-2023 Hemoglobin (Bld) [Mass/Vol] 11.2 g/dL 13.0-16.5 [facility] Blood lymphocytes/100 leukoc ytesOrdered By: Lenore Robledo on 04-13-2023 Lymphocytes/100 WBC (Bld) 17.4 % 19-41 [facility] Blood monocytes/100 leukocyt esOrdered By: Lenore Robledo on 04-13-2023 Monocytes/100 WBC (Bld) 11.7 % 0-10 [facility] Blood platelet mean volumeOr dered By: Lenore Robledo on 04-13-2023 Platelet mean volume (Bld) [Entitic vol] 9.4 fL 6.2-12.0 [facility] Determination of erythrocyte mean corpuscular volume (MCV)Ordered By: Lenore Robledo on 04-13-2023 MCV (RBC) [Entitic vol] 103.0 fL 80-94 [facility] Hematocrit Auto (Bld) [Volum e fraction]Ordered By: Lenore Robledo on 04-13-2023 Hematocrit (Bld) [Volume fraction] 33.8 % 40-54 [facility] Laboratory - Chemistry and C hemistry - challengeOrdered By: Lenore Robledo on 04-13-2023 CO2 [Moles/Vol] 25.0 mmol/L 21.0-32.0 [facility] Natriuretic peptide B (Bld) [Mass/Vol] 94.6 pg/mL 0-100 [facility] Urea nitrogen/Creatinine [Mass ratio] 11.1 mg/mg 10-20 [facility] - Hematology and Cell countsOrdered By: Lenore Robledo on 04-13-2023 Erythrocyte distribution width (RBC) [Entitic vol] 53.0 fL 35.1-43.9 [facility] Erythrocyte distribution width (RBC) [Ratio] 13.9 % 11.6-14.6 [facility] Immature granulocytes/100 WBC (Bld) 0.500 % 0.0-0.9 [facility] Comment on above: IG% - Immature Granu locytes (promyelocytes, myelocytes and metamyelocytes) > 1% indicates that a LEFT SHIFT is Present. MCH (RBC) [Entitic mass] 34.1 pg 27.0-32.0 [facility] Nucleated RBC/100 WBC (Bld) [Ratio] 0 % 0-5 [facility] Auto (RBC) [Mass/Vol]Or dered By: Lenore Robledo on 04-13-2023 MCHC (RBC) [Mass/Vol] 33.1 g/dL 32-36 [facility] No Panel InformationOrdered By: Lenore Robledo on 04-13-2023 Estimated Creatinine Clearance Calc 40.70 ml/min [facility] Estimated GFR (MDRD) Amer 66 mL/min >60 [facility] Comment on above: GFR Calc Estimated GFR (MDRD) Non-Af Amer 54 mL/min >60 [facility] Comment on above: Non- GFR Calc Platelets bldOrdered By: Astrid Robledo on 04-13-2023 Platelets (Bld) [#/Vol] 132 10*3/uL 150-450 [facility] Respiratory pathogens detect ion panel by molecular detection methodOrdered By: Lenore Robledo on 04-13-2023 Respiratory pathogens DNA and RNA panel JOYCE+probe (Resp) [facility] Serum or plasma calcium jose urement (mass/volume)Ordered By: Lenore Robledo on 04-13-2023 Calcium [Mass/Vol] 8.8 mg/dL 8.5-10.1 [facility] Serum or plasma creatinine m easurement (mass/volume)Ordered By: Lenore Robledo on 04-13-2023 Creatinine [Mass/Vol] 1.35 mg/dL 0.70-1.30 [facility] Comment on above: The validity of the calculated GFR & GFRAA in patients over 70 years has not been determined. Clinical correlation is essential. Serum or plasma urea nitroge n measurement (mass/volume)Ordered By: Lenore Robledo on 04-13-2023 Urea nitrogen [Mass/Vol] 15 mg/dL 7-18 [facility] Thin prep Papanicolaou smear with manual screeningOrdered By: Lenore Robledo on 04-13-2023 Thin prep Papanicolaou smear with manual screening 6 - [facility] INR in Blood by Coagulation assayOrdered By: César Tijerina on 03-20-2023 INR Coag (Bld) [Relative time] 1.0 {INR} [facility] Laboratory - CoagulationOrde red By: César Tijerina on 03-20-2023 aPTT Coag (Bld) [Time] 32.2 s 24.1-36.2 [facility] PT Coag (PPP) [Time] 13.6 s 11.7-14.9 [facility] Whole blood hemoglobin A1c/t otal hemoglobin ratio (mass fraction)Ordered By: Neo Henry on 03-20-2023 HbA1c (Bld) [Mass fraction] 6.3 % 3.8-5.6 [facility] Comment on above: Normal < 5.7 % Predi abetic 5.7 - 6.4 % Diabetic >or= 6.5 % Please note range changes. Basophil percentageOrdered B y: Dr. Michael on 07-04-2022 Bilirubin [Mass/Vol] 0.60 mg/dL 0.20-1.00 [facility] Comment on above: For patients on eltr ombopag therapy, use of Dimension [place] TBIL is not recommended. Cholesterol [Mass/Vol] 110 mg/dL <200 [facility] Comment on above: <200 mg/dL Desirable 200-240 mg/dL Borderline >240 mg/dL High Risk Protein [Mass/Vol] 7.2 g/dL 6.4-8.2 [facility] Triglyceride [Mass/Vol] 135 mg/dL <199 [facility] Comment on above: The drugs N-Acetylcy steine and Metamizole may falsely depress this assay.Serum Triglycerides Reference Interval Normal <150 mg/dL Borderline high 150 - 199 mg/dL High 200 - 499 mg/dL Very High > or = 500 mg/dL Basophil percentageOrdered B y: January Loera on 07-04-2022 Chloride [Moles/Vol] 107 mmol/L 98-107 [facility] Glucose [Mass/Vol] 156 mg/dL 74-106 [facility] Comment on above: Fasting Glucose resu lt greater than or equal to 126 mg/dL suggests DIABETES MELLITUS per A.D.A. criteria. Potassium [Moles/Vol] 4.0 mmol/L 3.5-5.1 [facility] Sodium [Moles/Vol] 143 mmol/L 136-145 [facility] Direct bilirubinOrdered By: Dr. Michael on 07-04-2022 Bilirubin.direct [Mass/Vol] 0.20 mg/dL 0.00-0.30 [facility] - Chemistry and C hemistry - challengeOrdered By: Dr. Michael on 07-04-2022 ALP [Catalytic activity/Vol] 49 U/L 45-117 [facility] ALT [Catalytic activity/Vol] 23 U/L 16-61 [facility] Globulin (S) [Mass/Vol] 3.7 g/dL 2.2-4.2 [facility] - Chemistry and C hemistry - challengeOrdered By: January Loera on 07-04-2022 CO2 [Moles/Vol] 27.0 mmol/L 21.0-32.0 [facility] Urea nitrogen/Creatinine [Mass ratio] 13.3 mg/mg 10-20 [facility] Natriuretic peptide B (Bld) [Mass/Vol] 57.4 pg/mL 0-100 [facility] No Panel InformationOrdered By: January Loera on 07-04-2022 Estimated GFR (MDRD) Amer 81 mL/min >60 [facility] Comment on above: GFR Calc Estimated GFR (MDRD) Non-Af Amer 67 mL/min >60 [facility] Comment on above: Non- GFR Calc Serum or plasma albumin jose urement (mass/volume)Ordered By: Dr. Michael on 07-04-2022 Albumin [Mass/Vol] 3.5 g/dL 3.2-5.0 [facility] Serum or plasma calcium jose urement (mass/volume)Ordered By: January Loera on 07-04-2022 Calcium [Mass/Vol] 9.1 mg/dL 8.5-10.1 [facility] Serum or plasma cholesterol in HDL measurement (mass/volume)Ordered By: Dr. Michael on 07-04-2022 Cholesterol in HDL [Mass/Vol] 49 mg/dL >40 [facility] Comment on above: The drugs N-Acetylcy steine and Metamizole may falsely depress this assay. Reference Range HDL <40 mg/dL Low HDL Cholesterol HDL >or= 60 mg/dL High HDL Cholesterol Serum or plasma cholesterol in VLDL measurement (mass/volume)Ordered By: Dr. Michael on 07-04-2022 Cholesterol in VLDL [Mass/Vol] 27 mg/dL 5-40 [facility] Serum or plasma creatinine m easurement (mass/volume)Ordered By: January Loera on 07-04-2022 Creatinine [Mass/Vol] 1.13 mg/dL 0.70-1.30 [facility] Comment on above: The validity of the calculated GFR & GFRAA in patients over 70 years has not been determined. Clinical correlation is essential. Serum or plasma low density lipoprotein (LDL) cholesterol measurement (mass/volume)Ordered By: Dr. Michael on 07-04-2022 Cholesterol in LDL [Mass/Vol] 34 mg/dL 0-130 [facility] Serum or plasma urea nitroge n measurement (mass/volume)Ordered By: January Loera on 07-04-2022 Urea nitrogen [Mass/Vol] 15 mg/dL 7-18 [facility] Thin prep Papanicolaou smear with manual screeningOrdered By: Dr. Michael on 07-04-2022 Thin prep Papanicolaou smear with manual screening 18 U/L 15-37 [facility] Thin prep Papanicolaou smear with manual screeningOrdered By: January Loera on 07-04-2022 Thin prep Papanicolaou smear with manual screening 9 5-15 [facility] CBC W Auto Differential pane l (Bld)on 05-31-2022 Basophils (Bld) [#/Vol] 0.03 10*3/uL <0.11 k/uL [facility] Basophils/100 WBC (Bld) 0.6 % [facility] Differential cell count method Nom (Bld) Auto [facility] Eosinophils (Bld) [#/Vol] 0.17 10*3/uL <0.46 k/uL [facility] Eosinophils/100 WBC (Bld) 3.3 % [facility] Erythrocyte distribution width (RBC) [Ratio] 14.2 % 11.5 - 15.0 % [facility] Hematocrit (Bld) [Volume fraction] 42.1 % 39.0 - 51.0 % [facility] Hemoglobin (Bld) [Mass/Vol] 13.6 g/dL 13.0 - 17.0 g/dL [facility] Immature granulocytes (Bld) [#/Vol] <0.10 k/uL [facility] Immature granulocytes/100 WBC (Bld) 0.2 % [facility] Lymphocytes (Bld) [#/Vol] 1.75 10*3/uL 1.00 - 4.00 k/uL [facility] Lymphocytes/100 WBC (Bld) 33.6 % [facility] MCH (RBC) [Entitic mass] 33.7 pg 26.0 - 34.0 pg [facility] MCHC (RBC) [Mass/Vol] 32.3 g/dL 30.5 - 36.0 g/dL [facility] MCV (RBC) [Entitic vol] 104.2 fL High 80.0 - 100.0 fL [facility] Monocytes (Bld) [#/Vol] 0.59 10*3/uL <0.87 k/uL [facility] Monocytes/100 WBC (Bld) 11.3 % [facility] Neutrophils (Bld) [#/Vol] 2.66 10*3/uL 1.45 - 7.50 k/uL [facility] Neutrophils/100 WBC (Bld) 51.0 % [facility] Nucleated RBC (Bld) [#/Vol] <0.01 k/uL [facility] Nucleated RBC/100 WBC (Bld) [Ratio] 0.0 /100 WBC [facility] Platelet mean volume (Bld) [Entitic vol] 10.2 fL 9.0 - 12.7 fL [facility] Platelets (Bld) [#/Vol] 207 10*3/uL 150 - 400 k/uL [facility] RBC (Bld) [#/Vol] 4.04 10*6/uL Low 4.20 - 6.0 0 m/uL [facility] WBC (Bld) [#/Vol] 5.21 10*3/uL 3.70 - 11. 00 k/uL [facility] Comprehensive metabolic 2000 panelon 05-31-2022 Albumin [Mass/Vol] 4.2 g/dL 3.9 - 4.9 g/dL [facility] ALP [Catalytic activity/Vol] 48 U/L 38 - 113 U/L [facility] ALT [Catalytic activity/Vol] 21 U/L 10 - 54 U/L [facility] Anion gap [Moles/Vol] 10 mmol/L 9 - 18 mmol/L [facility] AST [Catalytic activity/Vol] 27 U/L 14 - 40 U/L [facility] Bilirubin [Mass/Vol] 0.6 mg/dL 0.2 - 1 .3 mg/dL [facility] Calcium [Mass/Vol] 9.7 mg/dL 8.5 - 10. 2 mg/dL [facility] Chloride [Moles/Vol] 108 mmol/L High 97 - 10 5 mmol/L [facility] CO2 [Moles/Vol] 25 mmol/L 22 - 30 mmol/L [facility] Creatinine [Mass/Vol] 0.89 mg/dL 0.73 - 1.22 mg/dL [facility] Estimated Glomerular Filtration Rate 88 mL/min/1.73m >=60 mL/min/1.73m [facility] Glucose [Mass/Vol] 156 mg/dL High 74 - 99 mg/dL [facility] Potassium [Moles/Vol] 4.7 mmol/L 3.7 - 5.1 mmol/L [facility] Protein [Mass/Vol] 7.2 g/dL 6.3 - 8.0 g/dL [facility] Sodium [Moles/Vol] 143 mmol/L 136 - 144 mmol/L [facility] Urea nitrogen [Mass/Vol] 14 mg/dL 9 - 24 mg/dL [facility] LIPID PANEL, NONFASTINGon Cholesterol [Mass/Vol] 117 mg/dL <200 mg/dL [facility] HDL Cholesterol, Nonfasting 51 mg/dL >39 mg/dL [facility] LDL Cholesterol, Nonfasting 49 mg/dL <100 mg/dL [facility] LDL/HDL Ratio, Nonfasting 0.96 mg/dL <2.54 mg/dL [facility] Non HDL Cholesterol, Nonfasting 66 mg/dL <130 mg/dL [facility] Total Chol/HDL Ratio, Nonfasting 2.29 mg/dL <5.10 mg/dL [facility] Triglycerides, Nonfasting 85 mg/dL <150 mg/dL [facility] VLDL Cholesterol, Nonfasting 17 mg/dL <30 mg/dL [facility] PSA/PROSTSPECAG DIAGon 05-31 Prostate specific Ag [Mass/Vol] 1.42 ng/mL <2.60 ng/mL [facility] C-REACTIVE PROTEIN (CRP)on 0 09-19-2021 CRP [Mass/Vol] mg/L <0.9 mg/dL [facility] CBC W Auto Differential pane l (Bld)on 09-19-2021 Abs Immature Gran <0.03 <0.10 k/uL [facility] Basophils (Bld) [#/Vol] 0.05 10*3/uL <0.11 k/uL [facility] Basophils/100 WBC (Bld) 0.7 % [facility] Differential cell count method Nom (Bld) Auto [facility] Eosinophils (Bld) [#/Vol] 0.09 10*3/uL <0.46 k/uL [facility] Eosinophils/100 WBC (Bld) 1.2 % [facility] Erythrocyte distribution width (RBC) [Ratio] 13.3 % 11.5 - 15.0 % [facility] Hematocrit (Bld) [Volume fraction] 43.0 % 39.0 - 51.0 % [facility] Hemoglobin (Bld) [Mass/Vol] 14.5 g/dL 13.0 - 17.0 g/dL [facility] Immature Gran % 0.3 % [facility] Lymphocytes (Bld) [#/Vol] 2.18 10*3/uL 1.00 - 4.00 k/uL [facility] Lymphocytes/100 WBC (Bld) 29.1 % [facility] MCH (RBC) [Entitic mass] 34.1 pg High 26.0 - 34.0 pg [facility] MCHC (RBC) [Mass/Vol] 33.7 g/dL 30.5 - 36.0 g/dL [facility] MCV (RBC) [Entitic vol] 101.2 fL High 80.0 - 100.0 fL [facility] Monocytes (Bld) [#/Vol] 0.80 10*3/uL <0.87 k/uL [facility] Monocytes/100 WBC (Bld) 10.7 % [facility] Neutrophils (Bld) [#/Vol] 4.35 10*3/uL 1.45 - 7.50 k/uL [facility] Neutrophils/100 WBC (Bld) 58.0 % [facility] Nucleated RBC (Bld) [#/Vol] 10*3/uL <0.01 k/uL [facility] Nucleated RBC/100 WBC (Bld) [Ratio] 0.0 /100 WBC [facility] Platelet mean volume (Bld) [Entitic vol] 9.0 fL 9.0 - 12.7 fL [facility] Platelets (Bld) [#/Vol] 274 10*3/uL 150 - 400 k/uL [facility] RBC (Bld) [#/Vol] 4.25 10*6/uL 4.20 - 6.0 0 m/uL [facility] WBC (Bld) [#/Vol] 7.49 10*3/uL 3.70 - 11. 00 k/uL [facility] Comprehensive metabolic 2000 panelon 09-19-2021 Albumin [Mass/Vol] 4.7 g/dL 3.9 - 4.9 g/dL [facility] ALP [Catalytic activity/Vol] 62 U/L 38 - 113 U/L [facility] ALT [Catalytic activity/Vol] 17 U/L 10 - 54 U/L [facility] Anion gap [Moles/Vol] 12 mmol/L 9 - 18 mmol/L [facility] AST [Catalytic activity/Vol] 20 U/L 14 - 40 U/L [facility] Bilirubin [Mass/Vol] 0.6 mg/dL 0.2 - 1 .3 mg/dL [facility] Calcium [Mass/Vol] 10.4 mg/dL High 8.5 - 10. 2 mg/dL [facility] Chloride [Moles/Vol] 100 mmol/L 97 - 10 5 mmol/L [facility] CO2 [Moles/Vol] 27 mmol/L 22 - 30 mmol/L [facility] Creatinine [Mass/Vol] 1.22 mg/dL 0.73 - 1.22 mg/dL [facility] Estimated Glomerular Filtration Rate 61 mL/min/1.73m >=60 mL/min/1.73m [facility] Glucose [Mass/Vol] 147 mg/dL High 74 - 99 mg/dL [facility] Potassium [Moles/Vol] 4.9 mmol/L 3.7 - 5.1 mmol/L [facility] Protein [Mass/Vol] 7.8 g/dL 6.3 - 8.0 g/dL [facility] Sodium [Moles/Vol] 139 mmol/L 136 - 144 mmol/L [facility] Urea nitrogen [Mass/Vol] 25 mg/dL High 9 - 24 mg/dL [facility] Basophil percentageon 2021 Bilirubin [Mass/Vol] 0.70 mg/dL 0.20-1.00 [facility] Work Phone: Comment on above: For patients on eltr ombopag therapy, use of Dimension [place] TBIL is not recommended. Cholesterol [Mass/Vol] 117 mg/dL <200 [facility] Work Phone: [phone] Comment on above: <200 mg/dL Desirable 200-240 mg/dL Borderline >240 mg/dL High Risk Protein [Mass/Vol] 7.5 g/dL 6.4-8.2 [facility] Work Phone: [phone] Triglyceride [Mass/Vol] 131 mg/dL [facility] Work Phone: [phone] Comment on above: The drugs N-Acetylcy steine and Metamizole may falsely depress this assay.Serum Triglycerides Reference Interval Normal <150 mg/dL Borderline high 150 - 199 mg/dL High 200 - 499 mg/dL Very High > or = 500 mg/dL Direct bilirubinon Bilirubin.direct [Mass/Vol] 0.19 mg/dL 0.00-0.30 [facility] Work Phone: [phone] Laboratory - Chemistry and C hemistry - challengeon 07-21-2021 ALP [Catalytic activity/Vol] 52 U/L 45-117 [facility] Work Phone: [phone] ALT [Catalytic activity/Vol] 24 U/L 16-61 [facility] Work Phone: [phone] Globulin (S) [Mass/Vol] 3.8 g/dL 2.2-4.2 [facility] Work Phone: [phone] Serum or plasma albumin jose urement (mass/volume)on 07-21-2021 Albumin [Mass/Vol] 3.7 g/dL 3.2-5.0 [facility] Work Phone: [phone] Serum or plasma cholesterol in HDL measurement (mass/volume)on 07-21-2021 Cholesterol in HDL [Mass/Vol] 48 mg/dL [facility] Work Phone: [phone] Comment on above: The drugs N-Acetylcy steine and Metamizole may falsely depress this assay. Reference Range HDL <40 mg/dL Low HDL Cholesterol HDL >or= 60 mg/dL High HDL Cholesterol Serum or plasma cholesterol in VLDL measurement (mass/volume)on 07-21-2021 Cholesterol in VLDL [Mass/Vol] 26 mg/dL 5-40 [facility] Work Phone: Serum or plasma low density lipoprotein (LDL) cholesterol measurement (mass/volume)on 07-21-2021 Cholesterol in LDL [Mass/Vol] 43 mg/dL 0-130 [facility] Work Phone: Thin prep Papanicolaou smear with manual screeningon 07-21-2021 Thin prep Papanicolaou smear with manual screening 21 U/L 15-37 [facility] Work Phone: XR Chest PA and Lateralon IMPRESSION: Bilateral pulmonary parenchymal opacities related to scarring or infiltrates. Small right-sided pleural effusion. Wedding Florist: RICARDO Transcribe Date/Time: Feb 11 2021 2:24P Dictated by : DAVID CLEMONS MD This examination was interpreted and the report reviewed and electronically signed by: DAVID CLEMONS MD on Feb 11 2021 2:28PM [facility] DIVISION OF RADIOLOGY * * *Final Report* * * DATE OF EXAM: Feb 11 2021 2:17PM WOX 5291 - XR CHEST 2V FRONTAL/LAT / PROCEDURE REASON: multiple diagnoses * * * * Physician Interpretation * * * * EXAMINATION: CHEST RADIOGRAPH (2 VIEW FRONTAL & LATERAL) CLINICAL HISTORY: Pneumonia due to COVID-19 virus Pneumonia due to COVID-19 virus MQ: XC2_6 EXAM DATE/TIME: 02/11/2021 2:17 PM COMPARISON: No relevant prior studies available. RESULT: Lines, tubes, and devices: None. Lungs and pleura: Bilateral pulmonary parenchymal opacities related to scarring or infiltrates. Small right-sided pleural effusion. No pneumothorax. Cardiomediastinal silhouette: Normal cardiomediastinal silhouette. Bones and soft tissues: Unremarkable. DIVISION OF RADIOLOGY Provider, [facility] * * *Final Report* * * DATE OF EXAM: Feb 11 2021 2:17PM WOX 5291 - XR CHEST 2V FRONTAL/LAT / PROCEDURE REASON: multiple diagnoses * * * * Physician Interpretation * * * * EXAMINATION: CHEST RADIOGRAPH (2 VIEW FRONTAL & LATERAL) CLINICAL HISTORY: Pneumonia due to COVID-19 virus Pneumonia due to COVID-19 virus MQ: XC2_6 EXAM DATE/TIME: 02/11/2021 2:17 PM COMPARISON: No relevant prior studies available. RESULT: Lines, tubes, and devices: None. Lungs and pleura: Bilateral pulmonary parenchymal opacities related to scarring or infiltrates. Small right-sided pleural effusion. No pneumothorax. Cardiomediastinal silhouette: Normal cardiomediastinal silhouette. Bones and soft tissues: Unremarkable. IMPRESSION IMPRESSION: Bilateral pulmonary parenchymal opacities related to scarring or infiltrates. Small right-sided pleural effusion. Wedding Florist: PSCB Transcribe Date/Time: Feb 11 2021 2:24P Dictated by : DAVID CLEMONS MD This examination was interpreted and the report reviewed and electronically signed by: DAVID CLEMONS MD on Feb 11 2021 2:28PM EST [facility] Radiology Study observation (narrative) [facility] XR Chest PA and LateralOrder ed By: [facility] Provider on 02-11-2021 [facility] Office Visiton 01-29-2017 Documentation of current medications (procedure) Done Invalid Interpretation Code [facility] Work Phone: [phone] Protein mass conc Done Invalid Interpretation Code [facility] Work Phone: [phone] Lab Report: Lipid Profileon 01-20-2017 HDL Cholesterol 45 mg/dL Invalid Interpretation Code [facility] Work Phone: [phone] LDL Cholesterol 37 mg/dL Invalid Interpretation Code 0-130 [facility] Work Phone: [phone] very low density lipoproteins 19 mg/dL Invalid Interpretation Code 5-40 [facility] Work Phone: [phone] Cholesterol 101 mg/dL Invalid Interpretation Code 200 [facility] Work Phone: [phone] Triglyceride 94 mg/dL Invalid Interpretation Code [facility] Work Phone: [phone] Replaced Document: Liver Pro fileon 01-20-2017 Alanine aminotransferase (ALT) 26 U/L Invalid Interpretation Code 12-78 [facility] Work Phone: [phone] Albumin 3.5 g/dL Invalid Interpretation Code 3.4-5.0 [facility] Work Phone: [phone] Alkaline phosphatase (ALP) 54 U/L Invalid Interpretation Code 45-117 [facility] [employer] Work Phone: [phone] ALP enzyme act/vol (Bld) 54 U/L Invalid Interpretation Code 45-117 [facility] [employer] Work Phone: [phone] Aspartate aminotransferase (AST) 21 U/L Invalid Interpretation Code 15-37 [facility] [employer] Work Phone: [phone] Bilirubin (direct) 0.16 mg/dL Invalid Interpretation Code 0.00-0.30 [facility] [employer] Work Phone: [phone] Bilirubin (total) 0.60 mg/dL Invalid Interpretation Code 0.20-1.00 [facility] [employer] Work Phone: [phone] Globulin 3.4 g/dL Invalid Interpretation Code 2.3-3.5 [facility] [employer] Work Phone: [phone] Globulin mass conc (S) 3.4 g/dL 2.3-3.5 [facility] [employer] Work Phone: [phone] Protein 6.9 g/dL Invalid Interpretation Code 6.4-8.2 [facility] Work Phone: [phone] Office Visiton 07-17-2016 Documentation of current medications (procedure) Done Invalid Interpretation Code [facility] Phone: [phone] Clinical Lists Update: 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 07-12-2016 Left ventricular Ejection fraction 55 % Invalid Interpretation Code [facility] Phone: [phone] Office Visiton 07-19-2015 Tobacco smoking status NHIS Former smoker Invalid Interpretation Code [facility] Work Phone: [phone] Tobacco use CPHS Former smoker Invalid Interpretation Code [facility] [employer] Work Phone: [phone] Office Visiton 01-26-2015 cardiac risk group C Invalid Interpretation Code [facility] Phone: [phone] Dietary management education, guidance, and counseling (procedure) yes Invalid Interpretation Code [facility] [employer] Work Phone: [phone] General cardiovascular disease 10Y risk [#] [place].Kamar'Agocal N/A Invalid Interpretation Code [facility] Work Phone: [phone] EKG Report: [facility] ECG Obse rvationson 01-20-2014 GE use only - for [employer] import when terms are not otherwise specified 399 ms Invalid Interpretation Code [facility] Work Phone: [phone] QTc Medrano 399 ms Invalid Interpretation Code [facility] Work Phone: [phone] Replaced Document: Joe Naik CG Observationson 01-20-2014 EKG QRS axis -9 deg Invalid Interpretation Code [facility] Work Phone: [phone] electrocardiogram interpretation Sinus Rhythm -First degree A-V block [place] = 230BORDERLINE RHYTHM Invalid Interpretation Code [facility] Work Phone: [phone] Interpretation Sinus Rhythm -First degree A-V block [place] = 230BORDERLINE RHYTHM Invalid Interpretation Code [facility] Work Phone: [phone] P Epps 36 deg Invalid Interpretation Code [facility] Work Phone: [phone] P wave axis, electrocardiogram 36 deg Invalid Interpretation Code [facility] Work Phone: [phone] SC Interval 230 ms Invalid Interpretation Code [facility] Work Phone: [phone] SC interval, electrocardiogram 230 ms Invalid Interpretation Code [facility] Work Phone: [phone] Pulse (Heart Rate) 401 ms Invalid Interpretation Code [facility] Work Phone: [phone] Pulse (Heart Rate) 61 /min Invalid Interpretation Code [facility] Phone: [phone] QRS axis, electrocardiogram -9 deg Invalid Interpretation Code [facility] Work Phone: [phone] QRS Duration 94 ms Invalid Interpretation Code [facility] Work Phone: [phone] QRS duration, electrocardiogram 94 ms Invalid Interpretation Code [facility] Work Phone: [phone] QT Interval new path ms Invalid Interpretation Code [facility] Work Phone: QT interval, electrocardiogram new path ms Invalid Interpretation Code [facility] Work Phone: T Epps 12 deg Invalid Interpretation Code [facility] Work Phone: T wave axis, electrocardiogram 12 deg Invalid Interpretation Code [facility] Work Phone: [phone] Clinical Lists Update: 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 Anion gap 8 mmol/L Invalid Interpretation Code [facility] Work Phone: [phone] Anion gap 4 molar conc 8 Invalid Interpretation Code [facility] Work Phone: [phone] Anion gap molar conc 8 mmol/L [facility] Work Phone: [phone] BUN/Creatinine Ratio 15 mg/mg Invalid Interpretation Code [facility] Work Phone: [phone] Calcium 8.9 mg/dL Invalid Interpretation Code [facility] Work Phone: [phone] Chloride 109 mmol/L High [facility] Work Phone: [phone] CO2 25 mmol/L Invalid Interpretation Code [facility] Work Phone: [phone] CO2 ppres (BldV) 25 mmol/L Invalid Interpretation Code [facility] Work Phone: [phone] Creatinine 1.0 mg/dL Invalid Interpretation Code [facility] Work Phone: [phone] Glucose 122 mg/dL High [facility] Work Phone: [phone] Glucose mass conc 122 mg/dL High [facility] Work Phone: [phone] Potassium 4.0 mmol/L Invalid Interpretation Code [facility] Work Phone: [phone] Sodium 142 mmol/L Invalid Interpretation Code [facility] Work Phone: [phone] Urea nitrogen 15 mg/dL Invalid Interpretation Code [facility] Work Phone: [phone] Office Visiton 05-19-2011 Alcoholism counseling (procedure) no Invalid Interpretation Code [facility] Work Phone: [phone] Protein mass conc no Invalid Interpretation Code [facility] Work Phone: [phone] Vital Signs Date Time Vital Sign Value Performing Clinician Facility 10-29-2024 10:42-0400 Diastolic blood pressure 70 mm[Hg] Dr. César Merrill MD Work Phone: [facility] 10-29-2024 10:42-0400 Heart rate 60 /min Dr. César Merrill MD Work Phone: [facility] 10-29-2024 10:42-0400 Systolic blood pressure 149 mm[Hg] Dr. César Merrill MD Work Phone: [phone] [place] [address] 10-29-2024 10:29-0400 Body height 167.[address] César Merrill MD Work Phone: [phone] [place] [address] 10-29-2024 10:29-0400 Body mass index (BMI) [Ratio] 37.3 kg/m2 Dr. César Merrill MD Work Phone: [phone] [place] [address] 10-29-2024 10:29-0400 Body weight 104.[address] César Merrill MD Work Phone: [phone] [place] [address] 10-29-2024 10:29-0400 Respiratory rate 18 /min Dr. César Merrill MD Work Phone: [phone] [place] [address] 10-09-2024 15:06-0400 Body temperature 98.2 [degF] Dr. César Merrill MD Work Phone: [phone] [place] [address] 10-09-2024 15:06-0400 Body weight 105.[address] César Merrill MD Work Phone: [phone] [place] [address] 10-09-2024 15:06-0400 Diastolic blood pressure 70 mm[Hg] Dr. César Merrill MD Work Phone: [phone] [place] [address] 10-09-2024 15:06-0400 Heart rate 83 /min Dr. César Merrill MD Work Phone: [phone] [place] [address] 10-09-2024 15:06-0400 Respiratory rate 16 /min Dr. César Merrill MD Work Phone: [phone] [place] [address] 10-09-2024 15:06-0400 SaO2% (BldA) [Mass fraction] 93 % Dr. César Merrill MD Work Phone: [phone] [place] [address] 10-09-2024 15:06-0400 Systolic blood pressure 143 mm[Hg] Dr. César Merrill MD Work Phone: [phone] [place] [address] 08-29-2024 11:06-0400 Body temperature 98.6 [degF] Dr. César Merrill MD Work Phone: [facility] 08-29-2024 11:06-0400 Body weight 104.[address] César Merrill MD Work Phone: [facility] 08-29-2024 11:06-0400 Diastolic blood pressure 63 mm[Hg] Dr. César Merrill MD Work Phone: [facility] 08-29-2024 11:06-0400 Heart rate 62 /min Dr. César Merrill MD Work Phone: [facility] 08-29-2024 11:06-0400 Respiratory rate 18 /min Dr. César Merrill MD Work Phone: [facility] 08-29-2024 11:06-0400 SaO2% (BldA) [Mass fraction] 94 % Dr. César Merrill MD Work Phone: [facility] 08-29-2024 11:06-0400 Systolic blood pressure 128 mm[Hg] Dr. César Merrill MD Work Phone: [facility] 07-24-2024 08:29-0400 Body height 165.1 cm César Merrill MD Work Phone: [facility] 07-24-2024 08:29-0400 Body mass index (BMI) [Ratio] 37.77 kg/m2 César Merrill MD Work Phone: [facility] 07-24-2024 08:29-0400 Body weight 102.97 kg César Merrill MD Work Phone: [facility] 07-24-2024 08:29-0400 Diastolic blood pressure 54 mm[Hg] César Merrill MD Work Phone: [facility] 07-24-2024 08:29-0400 Heart rate 60 /min César Merrill MD Work Phone: [facility] 07-24-2024 08:29-0400 SaO2% (BldA) [Mass fraction] 95 % César Merrill MD Work Phone: [facility] 07-24-2024 08:29-0400 Systolic blood pressure 124 mm[Hg] César Merrill MD Work Phone: [facility] 07-10-2024 09:30-0400 Body height 167.[address] César Merrlil MD Work Phone: [facility] 07-10-2024 09:30-0400 Body mass index (BMI) [Ratio] 37.4 kg/m2 Dr. César Merrill MD Work Phone: [facility] 07-10-2024 09:30-0400 Body weight 105.[address] César Merrill MD Work Phone: [facility] 07-10-2024 09:30-0400 Diastolic blood pressure 65 mm[Hg] Dr. César Merrill MD Work Phone: [facility] 07-10-2024 09:30-0400 Heart rate 55 /min Dr. César Merrill MD Work Phone: [facility] 07-10-2024 09:30-0400 Respiratory rate 18 /min Dr. César Merrill MD Work Phone: [facility] 07-10-2024 09:30-0400 SaO2% (BldA) [Mass fraction] 92 % Dr. César Merrill MD Work Phone: [facility] 07-10-2024 09:30-0400 Systolic blood pressure 142 mm[Hg] Dr. César Merrill MD Work Phone: [facility] 06-10-2024 13:21-0500 Body mass index (BMI) [Ratio] 39.16 kg/m2 Deysi Cain APRN.COMPOSITE BOAT BUILDER Work Phone: [facility] 06-10-2024 13:21-0500 Body temperature 98.71 [degF] Deysi Cain APRN.COMPOSITE BOAT BUILDER Work Phone: [facility] 06-10-2024 13:21-0500 Body weight 105.1 kg Deysi Cain APRN.COMPOSITE BOAT BUILDER Work Phone: [facility] 06-10-2024 13:21-0500 Diastolic blood pressure 72 mm[Hg] Deysi Cain APRN.COMPOSITE BOAT BUILDER Work Phone: [facility] 06-10-2024 13:21-0500 Heart rate 92 /min Deysiemeli Cain APRN.COMPOSITE BOAT BUILDER Work Phone: [facility] 06-10-2024 13:21-0500 Respiratory rate 18 /min Deysiemeli Cain APRN.COMPOSITE BOAT BUILDER Work Phone: [facility] 06-10-2024 13:21-0500 SaO2% (BldA) [Mass fraction] 94 % Deysi Cain APRN.COMPOSITE BOAT BUILDER Work Phone: [facility] 06-10-2024 13:21-0500 Systolic blood pressure 142 mm[Hg] Deysi Cain APRN.COMPOSITE BOAT BUILDER Work Phone: [facility] 02-14-2024 09:13-0400 Diastolic blood pressure 58 mm[Hg] César Merrill MD Work Phone: [facility] 02-14-2024 09:13-0400 Systolic blood pressure 132 mm[Hg] César Merrill MD Work Phone: [facility] 02-14-2024 08:39-0400 Body height 163.8 cm César Merrill MD Work Phone: [facility] 02-14-2024 08:39-0400 Body mass index (BMI) [Ratio] 37.33 kg/m2 César Merrill MD Work Phone: [facility] 02-14-2024 08:39-0400 Body weight 100.2 kg César Merrill MD Work Phone: [facility] 02-14-2024 08:39-0400 Heart rate 59 /min César Merrill MD Work Phone: [facility] 08-08-2023 09:31-0400 Body height 163.8 cm César Merrill MD Work Phone: [facility] 08-08-2023 09:31-0400 Body weight 101.15 kg César Merrill MD Work Phone: [facility] 08-08-2023 09:31-0400 Diastolic blood pressure 60 mm[Hg] César Merrill MD Work Phone: [facility] 08-08-2023 09:31-0400 Heart rate 76 /min César Merrill MD Work Phone: [facility] 08-08-2023 09:31-0400 Respiratory rate 16 /min César Merrill MD Work Phone: [facility] 08-08-2023 09:31-0400 Systolic blood pressure 118 mm[Hg] César Merrill MD Work Phone: [facility] 04-19-2023 09:58-0500 Body weight 101.15 kg May Ragland MD Work Phone: [facility] 04-19-2023 09:58-0500 Diastolic blood pressure 62 mm[Hg] May Ragland MD Work Phone: [facility] 04-19-2023 09:58-0500 Heart rate 81 /min May Ragland MD Work Phone: [facility] 04-19-2023 09:58-0500 SaO2% (BldA) [Mass fraction] 96 % May Ragland MD Work Phone: [facility] 04-19-2023 09:58-0500 Systolic blood pressure 142 mm[Hg] May Ragland MD Work Phone: [facility] 04-14-2023 10:56-0500 Heart rate 88 /min Dr. César Merrill Work Phone: [facility] 04-14-2023 10:56-0500 Respiratory rate 22 /min Dr. César Merrill Work Phone: [facility] 04-14-2023 09:28-0500 Inhaled oxygen flow rate 2 L/min Dr. César Merrill Work Phone: [facility] 04-14-2023 09:28-0500 SaO2% (BldA) [Mass fraction] 91 % Dr. César Merrill Work Phone: [phone] [place] [address] 04-14-2023 07:37-0500 Body temperature 98.3 [degF] Dr. César Merrill Work Phone: [phone] [place] [address] 04-14-2023 07:37-0500 Diastolic blood pressure 56 mm[Hg] Dr. César Merrill Work Phone: 2(772)[phone] [place] [address] 04-14-2023 07:37-0500 Systolic blood pressure 124 mm[Hg] Dr. César Merrill Work Phone: 3(407)[phone] [place] [address] 04-12-2023 16:00-0500 Body height 167.[address] César Merrill Work Phone: 8(213)[phone] [place] [address] 04-12-2023 16:00-0500 Body mass index (BMI) [Ratio] 37.9 kg/m2 Dr. César Merrill Work Phone: 9(154)[phone] [place] [address] 04-12-2023 16:00-0500 Body weight 106.[address] César Merrill Work Phone: 6(547)[phone] [place] [address] 03-26-2023 11:56-0500 Diastolic blood pressure 66 mm[Hg] Melody Jerome VACUUM DRIER OPERATOR.COMPOSITE BOAT BUILDER Work Phone: [facility] 03-26-2023 11:56-0500 Systolic blood pressure 141 mm[Hg] Melody Jerome VACUUM DRIER OPERATOR.COMPOSITE BOAT BUILDER Work Phone: [facility] 03-26-2023 11:50-0500 Body height 165.1 cm Melody Jerome VACUUM DRIER OPERATOR.COMPOSITE BOAT BUILDER Work Phone: [facility] 03-26-2023 11:50-0500 Body temperature 98.01 [degF] Melody Jerome VACUUM DRIER OPERATOR.COMPOSITE BOAT BUILDER Work Phone: [facility] 03-26-2023 11:50-0500 Body weight 103.42 kg Melody Jerome VACUUM DRIER OPERATOR.COMPOSITE BOAT BUILDER Work Phone: [facility] 03-26-2023 11:50-0500 Heart rate 70 /min Melody Cano VACUUM DRIER OPERATOR.COMPOSITE BOAT BUILDER Work Phone: [facility] 03-26-2023 11:50-0500 Respiratory rate 12 /min Melody Cano VACUUM DRIER OPERATOR.COMPOSITE BOAT BUILDER Work Phone: [facility] 03-26-2023 11:50-0500 SaO2% (BldA) [Mass fraction] 99 % Melody Cano VACUUM DRIER OPERATOR.COMPOSITE BOAT BUILDER Work Phone: [facility] 03-09-2023 10:57-0500 Diastolic blood pressure 78 mm[Hg] Dr. César Merrill Work Phone: [facility] 03-09-2023 10:57-0500 Systolic blood pressure 128 mm[Hg] Dr. César Merrill Work Phone: [facility] 03-09-2023 10:27-0500 Body mass index (BMI) [Ratio] 35.9 kg/m2 Dr. César Merrill Work Phone: 7(025)[phone] [place] [address] 03-09-2023 10:27-0500 Body weight 101.[address] César Merrill Work Phone: [facility] 03-09-2023 10:27-0500 Heart rate 94 /min Dr. César Merrill Work Phone: [facility] 03-09-2023 10:27-0500 Respiratory rate 18 /min Dr. César Merrill Work Phone: [facility] 03-09-2023 10:27-0500 SaO2% (BldA) [Mass fraction] 95 % Dr. César Merrill Work Phone: [facility] 07-04-2022 09:18-0500 Body height 167.[address] César Merrill Work Phone: 8(844)[phone] [place] [address] 07-04-2022 09:18-0500 Body mass index (BMI) [Ratio] 35.8 kg/m2 Dr. César Merrill Work Phone: [facility] 07-04-2022 09:18-0500 Body weight 100.[address] César Merrill Work Phone: [facility] 07-04-2022 09:18-0500 Diastolic blood pressure 67 mm[Hg] Dr. César Merrill Work Phone: [facility] 07-04-2022 09:18-0500 Heart rate 62 /min Dr. César Merrill Work Phone: [facility] 07-04-2022 09:18-0500 Respiratory rate 18 /min Dr. César Merrill Work Phone: [facility] 07-04-2022 09:18-0500 SaO2% (BldA) [Mass fraction] 95 % Dr. César Merrill Work Phone: [facility] 07-04-2022 09:18-0500 Systolic blood pressure 133 mm[Hg] Dr. César Merrill Work Phone: [facility] 05-31-2022 07:54-0500 Body height 165.1 cm César Merrill MD Work Phone: [facility] 05-31-2022 07:54-0500 Body weight 100.7 kg César Merrill MD Work Phone: [facility] 05-31-2022 07:54-0500 Diastolic blood pressure 68 mm[Hg] César Merrill MD Work Phone: [facility] 05-31-2022 07:54-0500 Heart rate 64 /min César Merrill MD Work Phone: [facility] 05-31-2022 07:54-0500 Respiratory rate 16 /min César Merrill MD Work Phone: [facility] 05-31-2022 07:54-0500 Systolic blood pressure 132 mm[Hg] César Merrill MD Work Phone: [facility] 01-11-2022 10:33-0400 Diastolic blood pressure 68 mm[Hg] Dr. César Merrill Work Phone: [facility] Work Phone: 01-11-2022 10:33-0400 Heart rate 60 /min Dr. César Merrill Work Phone: [facility] Work Phone: 01-11-2022 10:33-0400 Systolic blood pressure 142 mm[Hg] Dr. César Merrill Work Phone: [facility] Work Phone: 01-11-2022 10:00-0400 Body height 167.[address] César Merrill Work Phone: [facility] Work Phone: 01-11-2022 10:00-0400 Body mass index (BMI) [Ratio] 34.8 kg/m2 Dr. César Merrill Work Phone: [facility] Work Phone: 01-11-2022 10:00-0400 Body weight 97.[address] César Merrill Work Phone: [facility] Work Phone: 01-11-2022 10:00-0400 Respiratory rate 16 /min Dr. César Merrill Work Phone: [facility] Work Phone: 11-15-2021 08:00-0400 Body weight 98.43 kg César Merrill MD Work Phone: [facility] 11-15-2021 08:00-0400 Diastolic blood pressure 84 mm[Hg] César Merrill MD Work Phone: [facility] 11-15-2021 08:00-0400 Heart rate 78 /min César Merrill MD Work Phone: [facility] 11-15-2021 08:00-0400 Respiratory rate 14 /min César Merrill MD Work Phone: [facility] 11-15-2021 08:00-0400 Systolic blood pressure 132 mm[Hg] César Merrill MD Work Phone: [facility] 09-23-2021 11:04-0400 Body temperature 98.49 [degF] Katarzyna MITCHELL-C Work Phone: [facility] 09-23-2021 11:04-0400 Body weight 96.16 kg Katarzyna PAGANC Work Phone: [facility] 09-23-2021 11:04-0400 Diastolic blood pressure 60 mm[Hg] Katarzyna MITCHELL-C Work Phone: [facility] 09-23-2021 11:04-0400 Heart rate 68 /min Katarzyna Munson PA-C Work Phone: [facility] 09-23-2021 11:04-0400 Respiratory rate 16 /min Katarzyna PAGANC Work Phone: [facility] 09-23-2021 11:04-0400 Systolic blood pressure 110 mm[Hg] Katarzyna MITCHELL-C Work Phone: [facility] 09-19-2021 09:29-0400 Body temperature 98.71 [degF] César Ghotra VACUUM DRIER OPERATOR.COMPOSITE BOAT BUILDER Work Phone: [facility] 09-19-2021 09:29-0400 Body weight 93.44 kg César Ghotra APRN.COMPOSITE BOAT BUILDER Work Phone: [facility] 09-19-2021 09:29-0400 Diastolic blood pressure 56 mm[Hg] César Ghotra VACUUM DRIER OPERATOR.COMPOSITE BOAT BUILDER Work Phone: [facility] 09-19-2021 09:29-0400 Heart rate 92 /min César Ghotra VACUUM DRIER OPERATOR.COMPOSITE BOAT BUILDER Work Phone: [facility] 09-19-2021 09:29-0400 Respiratory rate 16 /min César Ghotra VACUUM DRIER OPERATOR.COMPOSITE BOAT BUILDER Work Phone: [facility] 09-19-2021 09:29-0400 SaO2% (BldA) [Mass fraction] 97 % César Ghotra VACUUM DRIER OPERATOR.COMPOSITE BOAT BUILDER Work Phone: [facility] 09-19-2021 09:29-0400 Systolic blood pressure 132 mm[Hg] César Ghotra VACUUM DRIER OPERATOR.COMPOSITE BOAT BUILDER Work Phone: [facility] 07-14-2021 10:03-0400 Body height 167.[address] César Merrill Work Phone: [facility] Work Phone: 07-14-2021 10:03-0400 Body mass index (BMI) [Ratio] 33.3 kg/m2 Dr. César Merrill Work Phone: [facility] Work Phone: 07-14-2021 10:03-0400 Body weight 93.[address] César Merrill Work Phone: [facility] Work Phone: 07-14-2021 10:03-0400 Diastolic blood pressure 58 mm[Hg] Dr. César Merrill Work Phone: [facility] Work Phone: 07-14-2021 10:03-0400 Heart rate 60 /min Dr. César Merrill Work Phone: [facility] Work Phone: 07-14-2021 10:03-0400 Respiratory rate 16 /min Dr. César Merrill Work Phone: [facility] Work Phone: 07-14-2021 10:03-0400 Systolic blood pressure 130 mm[Hg] Dr. César Merrill Work Phone: [facility] Work Phone: 01-29-2017 08:41-0400 BMI (Body Mass Index) 31.95 kg/m2 Padma Baker [facility] Work Phone: 01-29-2017 08:41-0400 BP Diastolic 72 mm[Hg] Padma Baker [facility] Work Phone: 01-29-2017 08:41-0400 BP Systolic 130 mm[Hg] Padma Baker [facility] Work Phone: 01-29-2017 08:41-0400 Height 167.64 cm Padma Baker [facility] Work Phone: 01-29-2017 08:41-0400 Pulse (Heart Rate) 58 /min Padma Baker [facility] Work Phone: 01-29-2017 08:41-0400 Respiratory Rate 18 /min [facility] Work Phone: 01-29-2017 08:41-0400 Weight 89.81 kg Padma Baker [facility] Work Phone: 07-17-2016 12:00-0400 BMI (Body Mass Index) 33.73 kg/m2 Trey Malagon MANAGER CLINICAL PHARMACY [facility] Work Phone: 07-17-2016 12:00-0400 BP Diastolic 52 mm[Hg] Trey Manas MANAGER CLINICAL PHARMACY [facility] Work Phone: 07-17-2016 12:00-0400 BP Systolic 128 mm[Hg] Trey Manas MANAGER CLINICAL PHARMACY [facility] Work Phone: 07-17-2016 12:00-0400 Height 167.64 cm Trey Malagon MANAGER CLINICAL PHARMACY [facility] Work Phone: 07-17-2016 12:00-0400 Pulse (Heart Rate) 60 /min Trey Malagon MANAGER CLINICAL PHARMACY [facility] Work Phone: 07-17-2016 12:00-0400 Respiratory Rate 18 /min Trey Malagon MANAGER CLINICAL PHARMACY [facility] Work Phone: 07-17-2016 12:00-0400 Weight 94.8 kg Trey Malagon MANAGER CLINICAL PHARMACY [facility] Work Phone: 01-14-2016 11:48-0400 BSA (Body Surface Area) 2.06 m2 Trey Malagon MANAGER CLINICAL PHARMACY [facility] Work Phone: 07-19-2015 09:04-0400 BP Diastolic 80 mm[Hg] Trey Manas MANAGER CLINICAL PHARMACY [facility] Work Phone: 07-19-2015 09:04-0400 BP Systolic 130 mm[Hg] Trey Manas MANAGER CLINICAL PHARMACY [facility] Work Phone: 01-20-2014 14:06-0400 Heart rate 401 ms Padma Baker [facility] Work Phone: 01-20-2014 14:06-0400 Heart rate 61 /min [facility] Work Phone: Encounters Encounter Date Encounter Type Care Provider Facility Start: 10-29-2024 Encounter for preprocedural cardiovascular examination Trey Alvarado Manas [facility] Start: 10-29-2024 End: 10-29-2024 Patient encounter procedure rTey Alvarado Manas MANAGER CLINICAL PHARMACY-C -[facility] Work Phone: Start: 10-29-2024 End: 10-29-2024 Patient encounter status Trey Alvarado Manas MANAGER CLINICAL PHARMACY-C [facility] Start: 10-29-2024 End: 10-29-[address] César Merrill MD Work Phone: -[facility] Start: 10-17-2024 End: 10-17-2024 Chart abstracting Diamond Cain MA [facility] Comment on above: Results (Outside res ults /) Start: 10-14-2024 End: 10-14-2024 Refill César Merrill MD Work Phone: [facility] Comment on above: Refill Request Start: 10-09-2024 End: 10-09-[address] Lenny Taylor MD -[facility] Work Phone: Start: 10-09-2024 End: 10-09-[address] César Merrill MD Work Phone: [facility] Work Phone: Start: 10-03-2024 End: 10-03-[address] César Merrill MD Work Phone: [facility] Work Phone: Start: 10-03-2024 End: 10-03-2024 [facility] Start: 10-03-2024 End: 10-03-2024 ambulatory [facility] Facility:[facility] Start: 09-10-2024 End: 09-10-2024 Refill César Merrill MD Work Phone: [facility] Comment on above: Refill Request Start: 09-02-2024 End: 09-02-2024 Chart abstracting César Merrill MD Work Phone: [facility] Comment on above: Outside Vascular Start: 08-29-2024 End: 08-29-2024 [facility] Work [facility]: Start: 08-29-2024 End: 08-29-2024 ambulatory César Merrill Facility:[facility] Start: 08-21-2024 End: 08-21-2024 ambulatory CÉSAR MERRILL Facility:[facility] Start: 07-31-2024 End: 08-05-2024 Telephone encounter César Merrill MD Work Phone: [facility] Comment on above: Patient Update Start: 07-25-2024 End: 07-30-2024 Follow-up encounter César Merrill MD Work Phone: [facility] Start: 07-24-2024 End: 07-24-2024 ambulatory CÉSAR MERRILL Facility:[facility] Start: 07-24-2024 End: 07-24-2024 Ophthalmic examination and evaluation César Merrill MD Work Phone: [facility] Start: 07-24-2024 End: 07-24-2024 Patient encounter procedure César Merrill MD Work Phone: [facility] Comment on above: Well adult exam (Bonita katie Dx); Type 2 diabetes mellitus without complication, without long-term current use of insulin (HCC); Diabetic eye exam (HCC); Hypertension, essential; Mixed hyperlipidemia; 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 Start: 07-24-2024 End: 07-24-2024 ambulatory CÉSAR MERRILL Facility:[facility] Start: 07-18-2024 End: 07-18-2024 Telephone encounter César Merrill MD Work Phone: [facility] Comment on above: Refill Request Start: 07-10-2024 End: 07-10-[address] London Tobar MD -[facility] Work Phone: Start: 07-10-2024 End: 07-10-2024 ambulatory César Merrill Facility:[facility] Start: 07-04-2024 End: 07-04-2024 Chart abstracting César Merrill MD Work Phone: [facility] Comment on above: Outside Diabetic Eye Exam Start: 06-10-2024 End: 06-10-2024 ambulatory CÉSAR MERRILL Facility:[facility] Start: 06-10-2024 End: 06-10-2024 Patient encounter procedure Deysi Cain APRN.CNP Work Phone: [facility] Comment on above: URI, acute (Primary Dx) Start: 02-15-2024 End: 02-15-2024 Telephone encounter César Merrill MD Work Phone: [facility] Comment on above: Results Start: 02-14-2024 End: 02-14-2024 ambulatory CÉSAR MERRILL Facility:[facility] Start: 02-14-2024 End: 02-14-2024 Ophthalmic examination and evaluation César Merrill MD Work Phone: [facility] Start: 02-14-2024 End: 02-14-2024 Patient encounter procedure César Merrill MD Work Phone: [facility] Comment on above: Type 2 diabetes channing itus without complication, without long- term current use of insulin (HCC) (Primary Dx); Diabetic eye exam (HCC); Hypertension, essential; Mixed hyperlipidemia; 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; KARLA (obstructive sleep apnea); Vitamin B12 deficiency; Need for vaccination; Encounter for immunization Start: 02-14-2024 End: 02-14-2024 ambulatory CÉSAR MERRILL Facility:[facility] Start: 09-14-2023 Telephone encounter César Merrill MD Work Phone: [facility] Comment on above: Results Start: 08-16-2023 Telephone encounter César Merrill MD Work Phone: [facility] Comment on above: Results Start: 08-09-2023 Telephone encounter César Merrill MD Work Phone: [facility] Comment on above: Results Start: 08-08-2023 End: 08-08-2023 Ophthalmic examination and evaluation César Merrill MD Work Phone: [facility] Work Phone: Start: 08-08-2023 End: 08-08-2023 Patient encounter procedure César Merrill MD Work Phone: [facility] Comment on above: Well adult exam (Bonita katie Dx); Type 2 diabetes mellitus without complication, without long-term current use of insulin (HCC); Diabetic eye exam (HCC); Hypertension, essential; Mixed hyperlipidemia; 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 Riccardo Merrill Work Phone: [facility] Work Phone: Start: 04-13-2023 Non-patient / Non-visit Dr. Riccardo Merrill Work Phone: [facility] Work Phone: Start: 04-12-2023 Non-patient / Non-visit Dr. Riccardo Merrill Work Phone: [facility] Work Phone: Start: 04-12-2023 End: 04-14-2023 Evaluation and management of inpatient Dr. César Merrill Work Phone: [facility] Work Phone: Start: 04-12-2023 End: 04-14-[address] César Merrill Work Phone: [facility] Work Phone: Start: 04-10-2023 Chart abstracting César winn MD Work Phone: [facility] Start: 04-10-2023 Ophthalmic examinati on and evaluation César Merrill MD Work Phone: [facility] Start: 03-26-2023 End: 03-26-2023 Patient encounter procedure Melody Cano APRN.COMPOSITE BOAT BUILDER Work Phone: [facility] Comment on above: Preop examination (P rimary Dx) Start: 03-26-2023 End: 03-26-2023 Preprocedural examination done Melody Cano APRN.COMPOSITE BOAT BUILDER Work Phone: [facility] Work Phone: Start: 03-15-2023 Telephone encounter César Merrill MD Work Phone: [facility] Comment on above: pre-op form Start: 03-09-2023 End: 03-09-[address] César Merrill Work Phone: [facility] Work Phone: Start: 11-10-2022 Refill César guevara MD Work Phone: [facility] Comment on above: Refill Request Start: 08-08-2022 Refill César guevara MD Work Phone: [facility] Comment on above: Refill Request Start: 07-06-2022 Chart abstracting César winn MD Work Phone: [facility] Comment on above: Consult (Consult to Cardiology/labs) Start: 07-04-2022 End: 07-04-[address] César Merrill Work Phone: [facility] Work Phone: Start: 07-04-2022 End: 07-04-[address] César Merrill Work Phone: [facility] Start: 05-31-2022 End: 05-31-2022 Ophthalmic examination and evaluation César Merrill MD Work Phone: [facility] Start: 05-31-2022 End: 05-31-2022 Patient encounter procedure César Merrill MD Work Phone: [facility] Comment on above: Well adult exam (Bonita katie Dx); Type 2 diabetes mellitus without complication, without long-term current use of insulin (HCC); Diabetic eye exam (HCC); Hypertension, essential; Mixed hyperlipidemia; 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; KARLA (obstructive sleep apnea); Benign prostatic hyperplasia with urinary frequency; Osteoarthritis of multiple joints, unspecified osteoarthritis type; Advance directive discussed with patient; Encounter for immunization; Screening for colon cancer; Prostate disorder Start: 05-31-2022 End: 05-31-2022 Patient encounter status César Merrill MD Work Phone: [facility] Start: 05-08-2022 Refill César guevara MD Work Phone: [facility] Comment on above: Refill Request Start: 04-05-2022 Telephone encounter Meggan Duffy LoreeGwen Milligan Work Phone: [facility]monary Medicine Comment on above: Orders Start: 03-21-2022 Ophthalmic examinati on and evaluation Meggan Kitchenone Work Phone: [facility] Start: 02-10-2022 Refill César guevara MD Work Phone: [facility] Comment on above: Refill Request Start: 01-24-2022 Non-patient / Non-visit Dr. Riccadro Merrill Work Phone: [facility] Start: 01-24-2022 End: 01-24-[address] César Merrill Work Phone: [facility] Work Phone: Start: 01-24-2022 End: 01-24-[address] César Merrill Work Phone: [facility] Start: 01-11-2022 End: 01-11-[address] César Merrill Work Phone: [facility] Start: 11-16-2021 Telephone encounter César Merrill MD Work Phone: [facility] Comment on above: Results Start: 11-15-2021 End: 11-15-2021 Ophthalmic examination and evaluation César Merrill MD Work Phone: [facility] Start: 11-15-2021 End: 11-15-2021 Patient encounter procedure César Merrill MD Work Phone: [facility] Comment on above: Type 2 diabetes channing itus without complication, without long- term current use of insulin (HCC) (Primary Dx); Diabetic eye exam (HCC); Hypertension, essential; Mixed hyperlipidemia; 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; KARLA (obstructive sleep apnea); Nocturnal leg cramps; Benign prostatic hyperplasia with urinary frequency; Living will in place; Advance directive discussed with patient Start: 09-27-2021 Telephone encounter Katarzyna huddleston PA-C Work Phone: [facility] Comment on above: Results Start: 09-23-2021 End: 09-23-2021 Patient encounter procedure Katarzyna Munson PA-C Work Phone: [facility] Comment on above: Generalized abdomina l pain (Primary Dx); Hypercalcemia Start: 09-19-2021 Telephone encounter Tiff Natalee manuel VACUUM DRIER OPERATOR.COMPOSITE BOAT BUILDER Work Phone: [facility] Comment on above: Results Start: 09-19-2021 End: 09-19-2021 Patient encounter procedure César Ghotra VACUUM DRIER OPERATOR.COMPOSITE BOAT BUILDER Work Phone: [facility] Comment on above: Abdominal pain, gene ralized (Primary Dx) Start: 08-09-2021 Refill César guevara MD Work Phone: [facility] Comment on above: Refill Request Start: 07-21-2021 Chart abstracting César winn MD Work Phone: [facility] Comment on above: Outside Labs Results Start: 07-21-2021 End: 07-21-[address] César Merrill Work Phone: [facility] Start: 07-14-2021 End: 07-14-[address] César Merrill Work Phone: [facility] Start: 06-27-2021 Refill César guevara MD Work Phone: [facility] Comment on above: Refill Request (NEW PHARMACY) Start: 05-12-2021 Patient encounter status Jogre Merrill MD Work Phone: [facility] Work Phone: Start: 02-24-2021 Ophthalmic examinati on and evaluation César Merrill MD Work Phone: [facility] Start: 02-11-2021 End: 02-11-2021 Subsequent hospital visit by physician [facility] Work Phone: Radiology Comment on above: Pneumonia due to COV ID-19 virus [U07.1, J12.82] Procedures Date Procedure Procedure Detail Performing Clinician Start: 10-03-2024 CT of abdominal aorta with contrast Dr. César Merrill MD Work Phone: Start: 07-24-2024 Adult depression screening assessment César Merrill MD Work Phone: Start: 08-08-2023 Adult depression screening assessment [facility] Work Phone: Start: 04-13-[address] César Merrill Work Phone: Start: 04-13-2023 Plain chest X-ray Dr. César Merrill Work Phone: Start: 04-12-2023 Post Lum Interbody Fusion Watt Two Level (Not Applicable) Dr. César Merrill Work Phone: Start: 04-12-[address] César Merrill Work Phone: Start: 04-12-2023 X-ray of lumbar spine, two or three views Dr. César Merrill Work Phone: Start: 03-20-2023 Plain chest X-ray Dr. César Merrill Work Phone: Start: 05-31-2022 INFLUENZA SEASONAL QUADRIVALENT HIGH DOSE AGE 65+ César Merrill MD Work Phone: Start: 02-11-2021 Radiologic exam chest 2 views Terry Sullivan APRN.COCO, MARIANNA Work Phone: Start: 01-29-2017 End: 01-29-2017 GREGORY Barba MD Work Phone: Start: 01-29-2017 End: 01-29-2017 Follow Up Appt 6 months Terry Barba MD Work Phone: Start: 01-29-2017 End: 01-29-2017 GREGORY Barba MD Work Phone: Start: 01-29-2017 End: 01-29-2017 Follow Up Appt 6 months Terry Barba MD Work Phone: Start: 01-12-2017 End: 01-29-2017 *Hepatic Function Panel Terry Barba MD Work Phone: Start: 01-12-2017 End: 01-29-2017 Lipid 1996 panel - Serum or Plasma Terry Barba MD Work Phone: Start: 01-12-2017 End: 01-29-2017 *Hepatic Function Panel Terry Barba MD Work Phone: Start: 01-12-2017 End: 01-29-2017 Lipid panel [AGGREGATE] Terry Barba MD Work Phone: Start: 07-17-2016 End: 07-17-2016 GREGORY Barba MD Work Phone: Start: 07-17-2016 End: 07-17-2016 Follow Up Appt 6 months Terry Barba MD Work Phone: Start: 07-17-2016 End: 07-17-2016 GREGORY Barba MD Work Phone: Start: 07-17-2016 End: 07-17-2016 Follow Up Appt 6 months Terry Barba MD Work Phone: Start: 07-12-2016 End: 07-13-2016 *Hepatic Function Panel Terry Barba MD Work Phone: Start: 07-12-2016 End: 07-14-2016 Lipid 1996 panel - Serum or Plasma Terry Barba MD Work Phone: Start: 07-12-2016 End: 07-13-2016 *Hepatic Function Panel Terry Barba MD Work Phone: Start: 07-12-2016 End: 07-14-2016 Lipid panel [AGGREGATE] Terry Barba MD Work Phone: Start: 01-14-2016 End: 01-14-2016 GREGORY Barba MD Work Phone: Start: 01-14-2016 End: 01-14-2016 Follow Up Appt 6 months Terry Barba MD Work Phone: Start: 01-14-2016 End: 01-14-2016 GREGORY Barba MD Work Phone: Start: 01-14-2016 End: 01-14-2016 Follow Up Appt 6 months Terry Barba MD Work Phone: Start: 01-10-2016 End: 01-10-2016 *Hepatic Function Panel Terry Barba MD Work Phone: Start: 01-10-2016 End: 01-10-2016 Lipid 1996 panel - Serum or Plasma Terry Barba MD Work Phone: Start: 01-10-2016 End: 01-10-2016 *Hepatic Function Panel Terry Barba MD Work Phone: Start: 01-10-2016 End: 01-10-2016 Lipid panel [AGGREGATE] Terry Barba MD Work Phone: Start: 07-19-2015 End: 07-19-2015 *Hepatic Function Panel Terry Barba MD Work Phone: Start: 07-19-2015 End: 07-19-2015 GREGORY Barba MD Work Phone: Start: 07-19-2015 End: 07-19-2015 Follow Up Appt 6 months Terry Barba MD Work Phone: Start: 07-19-2015 End: 07-19-2015 Lipid 1996 panel - Serum or Plasma Terry Barba MD Work Phone: Start: 07-19-2015 End: 07-19-2015 *Hepatic Function Panel Terry Barba MD Work Phone: Start: 07-19-2015 End: 07-19-2015 GREGORY Barba MD Work Phone: Start: 07-19-2015 End: 07-19-2015 Follow Up Appt 6 months Terry Barba MD Work Phone: Start: 07-19-2015 End: 07-19-2015 Lipid panel [AGGREGATE] Terry Barba MD Work Phone: Start: 01-26-2015 End: 01-26-2015 GREGORY Barba MD Work Phone: Start: 01-26-2015 End: 01-26-2015 Follow Up Appt 6 months Terry Barba MD Work Phone: Start: 01-26-2015 End: 02-05-2015 Stress Echocardiogram (treadmill) Terry Barba MD Work Phone: Start: 01-26-2015 End: 01-26-2015 Dietary management education, guidance, and counseling Padma Baker Start: 01-26-2015 End: 01-26-2015 GREGORY Barba MD Work Phone: Start: 01-26-2015 End: 01-26-2015 Follow Up Appt 6 months Terry Barba MD Work Phone: Start: 01-26-2015 End: 02-05-2015 Stress Echocardiogram (treadmill) Terry Barba MD Work Phone: Start: 01-22-2015 End: 01-25-2015 *Hepatic Function Panel Terry Barba MD Work Phone: Start: 01-22-2015 End: 01-25-2015 Lipid 1996 panel - Serum or Plasma Terry Barba MD Work Phone: Start: 01-22-2015 End: 01-25-2015 *Hepatic Function Panel Terry Barba MD Work Phone: Start: 01-22-2015 End: 01-25-2015 Lipid panel [AGGREGATE] Terry Barba MD Work Phone: Start: 07-15-2014 End: 07-20-2014 *Hepatic Function Panel Terry Barba MD Work Phone: Start: 07-15-2014 End: 07-20-2014 Lipid 1996 panel - Serum or Plasma Terry Barba MD Work Phone: Start: 07-15-2014 End: 07-20-2014 *Hepatic Function Panel Terry Barba MD Work Phone: Start: 07-15-2014 End: 07-20-2014 Lipid panel [AGGREGATE] Terry Barba MD Work Phone: Start: 01-20-2014 End: 01-20-2014 BONNIEN Terry Barba MD Work Phone: Start: 01-20-2014 End: 01-22-2014 Ecg routine ecg w/least 12 lds w/i&r Terry Barba MD Work Phone: Start: 01-20-2014 End: 01-20-2014 Follow Up Appt 1 year Lisa Pandey Work Phone: Start: 01-20-2014 End: 01-20-2014 BONNIEN Terry Barba MD Work Phone: Start: 01-20-2014 End: 01-22-2014 Electrocardiogram, complete Terry barrientos MD Work Phone: Start: 01-20-2014 End: 01-20-2014 Follow Up Appt 1 year Lisa Pandey Work Phone: Start: 12-29-2013 End: 01-15-2014 *Hepatic Function Panel Terry Barba MD Work Phone: Start: 12-29-2013 End: 01-15-2014 Lipid 1996 panel - Serum or Plasma Terry Barba MD Work Phone: Start: 12-29-2013 End: 01-15-2014 *Hepatic Function Panel Terry Barba MD Work Phone: Start: 12-29-2013 End: 01-15-2014 Lipid panel [AGGREGATE] Terry Barba MD Work Phone: Start: 06-28-2013 End: 07-16-2013 *Hepatic Function Panel Evan Michael MD Start: 06-28-2013 End: 07-16-2013 Lipid 1996 panel - Serum or Plasma Evan Michael MD Start: 06-28-2013 End: 07-16-2013 *Hepatic Function Panel Evan Michael MD Start: 06-28-2013 End: 07-16-2013 Lipid panel [AGGREGATE] Evan Michael MD Start: 01-14-2013 End: 01-14-2013 GREGORY Barba MD Work Phone: Start: 01-14-2013 End: 01-14-2013 Follow Up Appt 1 year Lisa Pandey Work Phone: Start: 01-14-2013 End: 01-23-2013 Stress Echocardiogram (treadmill) Terry Barba MD Work Phone: Start: 01-14-2013 End: 01-14-2013 GREGORY Barba MD Work Phone: Start: 01-14-2013 End: 01-14-2013 Follow Up Appt 1 year Lisa Pandey Work Phone: Start: 01-14-2013 End: 01-23-2013 Stress Echocardiogram (treadmill) Terry Barba MD Work Phone: Start: 12-29-2012 End: 01-06-2013 *Hepatic Function Panel Ray Guajardo MD Start: 12-29-2012 End: 01-06-2013 Lipid 1996 panel - Serum or Plasma Ray Guajardo MD Start: 12-29-2012 End: 01-06-2013 *Hepatic Function Panel Ray Guajardo MD Start: 12-29-2012 End: 01-06-2013 Lipid panel [AGGREGATE] Ray Guajardo MD Start: 12-19-2012 History of placement of stent for coronary artery disease History of coronary artery stent placement César Merrill MD Work Phone: Start: 06-25-2012 End: 07-18-2012 *Hepatic Function Panel Ray Guajardo MD Start: 06-25-2012 End: 06-25-2012 Ecg routine ecg w/least 12 lds w/i&r Ray Guajardo MD Start: 06-25-2012 End: 06-25-2012 Follow Up Appt 6 months Ray Guajardo MD Start: 06-25-2012 End: 07-18-2012 Lipid 1996 panel - Serum or Plasma Ray Guajardo MD Start: 06-25-2012 End: 07-18-2012 *Hepatic Function Panel Ray Guajardo MD Start: 06-25-2012 End: 06-25-2012 Electrocardiogram, complete Ray Guajardo MD Start: 06-25-2012 End: 06-25-2012 Follow Up Appt 6 months Ray Guajardo MD Start: 06-25-2012 End: 07-18-2012 Lipid panel [AGGREGATE] Ray Guajardo MD Start: 12-21-2011 End: 01-11-2012 *Hepatic Function Panel Ray Guajardo MD Start: 12-21-2011 End: 12-21-2011 Follow Up Appt 6 months Ray Guajardo MD Start: 12-21-2011 End: 01-11-2012 Lipid 1996 panel - Serum or Plasma Ray Guajardo MD Start: 12-21-2011 End: 01-11-2012 *Hepatic Function Panel Ray Guajardo MD Start: 12-21-2011 End: 12-21-2011 Follow Up Appt 6 months Ray Guajardo MD Start: 12-21-2011 End: 01-11-2012 Lipid panel [AGGREGATE] Ray Guajardo MD Start: 05-19-2011 End: 05-19-2011 Ecg routine ecg w/least 12 lds w/i&r Ray Guajardo MD Start: 05-19-2011 End: 05-25-2011 Echocardiography Ray Guajardo MD Start: 05-19-2011 End: 05-19-2011 Follow Up Appt 3 months Ray Guajardo MD Start: 05-19-2011 End: 05-25-2011 Nuclear stress test -adenosine Ray Guajardo MD Start: 05-19-2011 End: 05-25-2011 Echocardiography Ray Guajardo MD Start: 05-19-2011 End: 05-19-2011 Electrocardiogram, complete Ray Guajardo MD Start: 05-19-2011 End: 05-19-2011 Follow Up Appt 3 months Ray Guajardo MD Start: 05-19-2011 End: 05-25-2011 Nuclear stress test -adenosine Ray Guajardo MD Start: 08-26-2010 Placement of stent in coronary artery Status post cardiac stent placement Padma Baker Start: 08-26-2010 Placement of stent in coronary artery Status post cardiac stent placement Padma Baker Plan of Treatment Date Care Activity Detail Author Start: 10-27-2030 Urine microalbumin profile [facility] Start: 02-13-2027 Diabetes Screening Diabetes Screenin g [facility] Start: 07-24-2025 Annual PCP Team Store Protection Specialist kay Disease Visit Annual PCP Team Chronic Disease Visit [facility] Start: 03-27-2026 Anxiety Screening Anxiety Screening [facility] Start: 07-24-2025 BP Controlled (<130/80) BP Controlle d (<130/80) [facility] Start: 07-24-2025 Depression Screening Depression Scre ening [facility] Start: 07-24-2025 Diabetic foot examination Diabetic F oot Exam [facility] Start: 07-24-2025 Hepatitis B screening Urine Albumin:Creatinine Ratio [facility] Start: 07-24-2025 Hepatitis B surface antibody level LDL Cholesterol [facility] Start: 07-03-2025 Glaucoma screening Dilated Retinal E xam [facility] Start: 02-13-2025 Annual PCP Team Store Protection Specialist kay Disease Visit Annual PCP Team Chronic Disease Visit [facility] Start: 02-13-2025 BP Controlled (<130/80) BP Controlle d (<130/80) [facility] Start: 01-27-2025 End: 01-27-2025 Patient encounter procedure 01/27/2025 8:40 AM EDT Office Visit [facility] [address] [place] [address] [id number] César Merrill MD [address] [place] [id number] 6 month follow up Family [facility] Comment on above: 6 month follow up Start: 01-24-2025 Hemoglobin A1c measurement HbA1C [facility] Start: 11-18-2024 ambulatory Ambulatory Facility:[facility] Start: 10-29-2024 Evaluation of diagno stic study results [facility] Start: 08-21-2024 End: 08-21-2024 Patient encounter procedure 08/21/2024 12:30 PM EDT Office Visit [facility] [address] [place], [place] [id number] Cyanosis [R23.0]; Diminished pulses in lower extremity [R09.89] [facility] Comment on above: Cyanosis [R23.0]; Di minished pulses in lower extremity [R09.89] Start: 08-14-2024 Hemoglobin A1c measurement HbA1C [facility] Start: 08-14-2024 End: 08-14-2024 Patient encounter procedure Family [facility] Comment on above: physical physical-discuss med compliance Start: 08-07-2024 Annual PCP Team Store Protection Specialist kay Disease Visit Annual PCP Team Chronic Disease Visit [facility] Start: 08-07-2024 Anxiety Screening Anxiety Screening [facility] Start: 08-07-2024 BP Controlled (<130/80) BP Controlle d (<130/80) [facility] Start: 08-07-2024 Depression Screening Depression Scre ening [facility] Start: 08-07-2024 Diabetic foot examination Diabetic F oot Exam [facility] Start: 08-07-2024 Hepatitis B screening Urine Albumin:Creatinine Ratio [facility] Start: 08-07-2024 Hepatitis B surface antibody level LDL Cholesterol [facility] Start: 08-07-2024 RSV Vaccine (1 - 1-d ose 60+ series) RSV Vaccine (1 - 1-dose 60+ series) [facility] Comment on above: Postponed from 02/18 (Insurance Coverage) Start: 08-07-2024 RSV Vaccine (1 - 1-d ose 75+ series) RSV Vaccine (1 - 1-dose 75+ series) [facility] Comment on above: Postponed from 02/18 (Insurance Coverage) Start: 08-07-2024 Shingrix Vaccine (2 of 2) Tam grix Vaccine (2 of 2) [facility] Comment on above: Postponed from 12/22 (Declined at this time) Start: 07-24-2024 End: 10-23-2024 Microalbumin/Creatinine [Mass Ratio] in Urine [facility] Work Phone: Comment on above: Expected: 07/24/2024 , Expires: 10/23/2024 Start: 04-30-2024 Advance Directive Discussion Advance Directive Discussion [facility] Start: 04-10-2024 Glaucoma screening Dilated Retinal E xam [facility] Start: 03-26-2024 Annual PCP Team Store Protection Specialist kay Disease Visit Annual PCP Team Chronic Disease Visit [facility] Start: 02-14-2024 End: 02-14-2024 Patient encounter procedure 02/14/2024 9:20 AM EDT Office Visit [facility] [address] [place] [phone] César Merrill MD [address] [place] [id number] 6 month follow up [facility] Comment on above: 6 month follow up Start: 02-07-2024 Hemoglobin A1c measurement HbA1C [facility] Start: 02-06-2024 Annual PCP Team Store Protection Specialist kay Disease Visit Annual PCP Team Chronic Disease Visit [facility] Start: 02-06-2024 BP Controlled (<130/80) BP Controlle d (<130/80) [facility] Start: 02-06-2024 Covid-19 Vaccine (#1) Covid-19 Vacci ne (#1) [facility] Comment on above: Postponed from 08/19 (Declined at this time) Start: 02-06-2024 Covid-19 Vaccine () Covid-19 Vaccine () [facility] Comment on above: Postponed from 12/29 (Declined at this time) Start: 02-06-2024 Hepatitis B Vaccine (1 of 3 - Risk 3-dose series) Hepatitis B Vaccine (1 of 3 - Risk 3-dose series) [facility] Comment on above: Postponed from 02/18 (Declined at this time) Start: 12-30-2023 Covid-19 Vaccine ( season) Covid-19 Vaccine ( season) [facility] Start: 12-30-2023 Influenza vaccination Influenza Vacc ine (#1) [facility] Start: 09-14-2023 End: 12-14-2023 CBC W Auto Differential panel - Blood COMPLETE BLOOD COUNT AND DIFFERENTIAL Lab Routine Vitamin B12 deficiency Expected: 09/14/2023, Expires: 12/14/2023 [facility] Work Phone: Comment on above: Expected: 09/14/2023 , Expires: 12/14/2023 Start: 09-14-2023 End: 12-14-2023 Cobalamin (Vitamin B12) [Mass/volume] in Serum or Plasma VITAMIN B12 Lab Routine Vitamin B12 deficiency Expected: 09/14/2023, Expires: 12/14/2023 [facility] Work Phone: Comment on above: Expected: 09/14/2023 , Expires: 12/14/2023 Start: 08-09-2023 End: 11-08-2023 Cobalamin (Vitamin B12) [Mass/volume] in Serum or Plasma VITAMIN B12 Lab Routine Anemia, unspecified type Expected: 08/09/2023, Expires: 11/08/2023 [facility] Work Phone: Comment on above: Expected: 08/09/2023 , Expires: 11/08/2023 Start: 08-09-2023 End: 11-08-2023 Ferritin [Mass/volume] in Serum or Plasma FERRITIN Lab Routine Anemia, unspecified type Expected: 08/09/2023, Expires: 11/08/2023 [facility] Work Phone: Comment on above: Expected: 08/09/2023 , Expires: 11/08/2023 Start: 08-09-2023 End: 11-08-2023 Folate [Mass/volume] in Serum or Plasma FOLATE, SERUM Lab Routine Anemia, unspecified type Expected: 08/09/2023, Expires: 11/08/2023 [facility] Work Phone: Comment on above: Expected: 08/09/2023 , Expires: 11/08/2023 Start: 08-09-2023 End: 11-08-2023 Iron and Iron binding capacity panel - Serum or Plasma IRON AND TIBC Lab Routine Anemia, unspecified type Expected: 08/09/2023, Expires: 11/08/2023 [facility] Work Phone: Comment on above: Expected: 08/09/2023 , Expires: 11/08/2023 Start: 05-31-2023 3 comp foot exam completed DIABETIC FOOT EXAM [facility] Start: 05-31-2023 ANNUAL 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 KAY DISEASE VISIT ANNUAL PCP TEAM CHRONIC DISEASE VISIT [facility] Start: 05-31-2023 Diabetic foot examination Diabetic F oot Exam [facility] Start: 05-31-2023 Hepatitis B screening URINE ALBUMIN:CREATININE RATIO [facility] Start: 05-31-2023 Hepatitis B surface antibody level LDL CHOLESTEROL [facility] Start: [facility]-14-[facility]23 [facility] Start: 04-13-2023 Continuous pulse oximetry [facility] Start: 04-13-2023 Physiotherapy of chest [facility] Start: 04-13-2023 Inhalation therapy procedure [facility] Start: 04-12-2023 Care regimes management [facility] Start: 04-12-2023 Notification of physician [facility] Start: 04-12-2023 Oxygen therapy [facility] Start: 04-12-2023 Following clinical p athway protocol [facility] Start: 04-12-2023 Admission procedure [facility] Start: 04-12-2023 Application of ice c ollar, cap or bag [facility] Start: 04-12-2023 Application of intermittent pneumatic compression device [facility] Start: 04-12-2023 Catheterization of vein [facility] Start: 04-12-2023 Consultation [facility] Start: 04-12-2023 Following clinical p athway protocol [facility] Start: 04-12-2023 Introduction of urin cas catheter [facility] Start: 04-12-2023 Maintenance of drain age tube [facility] Start: 04-12-2023 Measuring intake and output [facility] Start: 04-12-2023 Neurovascular assessment [facility] Start: 04-12-2023 Patient education [facility] Start: 04-12-2023 Procedure discontinued [facility] Start: 04-12-2023 Provision of activit y privileges [facility] Start: 04-12-2023 Recommendation to co negraue with treatment [facility] Start: 04-12-2023 Referral to service [facility] Start: 04-12-2023 Taking patient vital signs [facility] Start: 03-16-2023 Hepatitis C antibody , confirmatory test DILATED RETINAL EXAM [facility] Start: 12-29-2022 Influenza vaccination INFLUENZA (#1) [facility] Start: 11-28-2022 Hemoglobin A1c measurement HbA1C [facility] Start: 11-28-2022 Hemoglobin A1c/Hemoglobin.total in Blood HBA1C [facility] Start: 11-15-2022 ANNUAL 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 KAY DISEASE VISIT ANNUAL PCP TEAM CHRONIC DISEASE VISIT [facility] Start: 11-15-2022 BP CONTROLLED (<130/80) BP CONTROLLE D (<130/80) [facility] Start: 11-15-2022 COVID-19 VACCINE (#1) COVID-19 VACCI NE (#1) [facility] Comment on above: Postponed from 08/19 (Declined at this time) Start: 11-15-2022 Hepatitis B screening URINE ALBUMIN:CREATININE RATIO [facility] Start: 11-15-2022 Hepatitis B surface antibody level LDL CHOLESTEROL [facility] Start: 11-15-2022 SHINGRIX VACCINE (2 of 2) TAM GRIX VACCINE (2 of 2) [facility] Comment on above: Postponed from 12/22 (Insurance Coverage) Start: 09-23-2022 ANNUAL 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 KAY DISEASE VISIT ANNUAL PCP TEAM CHRONIC DISEASE VISIT [facility] Start: 09-23-2022 BP CONTROLLED (<130/80) BP CONTROLLE D (<130/80) [facility] Start: 06-05-2022 FECAL OCCULT BLOOD FECAL OCCULT BLOO D [facility] Start: 06-05-2022 Screening for malign ant neoplasm of colon Fecal Occult Blood [facility] Start: 05-31-2022 End: 07-31-2022 ALBUMIN[facility]CREAT [facility] Work Phone: Comment on above: Expected: 05/31/2022 , Expires: 07/31/2022 Start: 05-31-2022 End: 07-31-2022 Hemoglobin A1c in Blood [facility] Work Phone: Comment on above: Expected: 05/31/2022 , Expires: 07/31/2022 Start: 05-31-2022 End: 07-31-2022 Urinalysis complete panel - Urine [facility] Work Phone: Comment on above: Expected: 05/31/2022 , Expires: 07/31/2022 Start: 05-18-2022 Hemoglobin A1c/Hemoglobin.total in Blood HBA1C [facility] Start: 05-12-2022 3 comp foot exam completed DIABETIC FOOT EXAM [facility] Start: 05-12-2022 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 KAY DISEASE VISIT ANNUAL PCP TEAM CHRONIC DISEASE VISIT [facility] Start: 04-30-2022 ADVANCE DIRECTIVE DISCUSSION ADVANCE DIRECTIVE DISCUSSION [facility] Start: 04-30-2022 DEPRESSION ASSESSMENT DEPRESSION ASS ESSMENT [facility] Start: 02-24-2022 Hepatitis C antibody , confirmatory test DILATED RETINAL EXAM [facility] Start: 12-29-2021 Influenza vaccination INFLUENZA (#1) [facility] Start: 10-27-2021 BP CONTROLLED (<130/80) BP CONTROLLE D (<130/80) [facility] Start: 10-27-2021 COVID-19 VACCINE (#1) COVID-19 VACCI NE (#1) [facility] Comment on above: Postponed from 02/18 (Declined at this time) Start: 10-27-2021 COVID-19 VACCINE (1) COVID-19 VACCIN E (1) [facility] Comment on above: Postponed from 02/18 (Declined at this time) Start: 10-27-2021 Hepatitis B screening URINE ALBUMIN:CREATININE RATIO [facility] Start: 10-27-2021 Hepatitis B surface antibody level LDL CHOLESTEROL [facility] Start: 09-23-2021 End: 11-23-2021 Calcium [Mass/volume] in Serum or Plasma [facility] Work Phone: Comment on above: Expected: 09/23/2021 , Expires: 11/23/2021 Start: 09-23-2021 End: 11-23-2021 PTH INTACT BLD [facility] Work Phone: Comment on above: Expected: 09/23/2021 , Expires: 11/23/2021 Start: 09-19-2021 End: 11-19-2021 Erythrocyte sedimentation rate [facility] Work Phone: Comment on above: Expected: 09/19/2021 , Expires: 11/19/2021 Start: 08-10-2021 Hemoglobin A1c/Hemoglobin.total in Blood HBA1C [facility] Start: 04-30-2021 ADVANCE DIRECTIVE DISCUSSION ADVANCE DIRECTIVE DISCUSSION [facility] Start: 04-30-2021 DEPRESSION ASSESSMENT DEPRESSION ASS ESSMENT [facility] Start: 12-22-2020 SHINGRIX VACCINE (2 of 2) TAM GRIX VACCINE (2 of 2) [facility] Start: 02-19-2020 RSV Vaccine (1 - 1-d ose 75+ series) RSV Vaccine (1 - 1-dose 75+ series) [facility] Start: 08-20-2017 End: 08-20-2017 Appointment Appointment [facility] Work Phone: Start: 07-23-2017 End: 01-23-2017 *Hepatic Function Panel *Hepatic Function Panel [facility] Work Phone: Start: 07-23-2017 End: 01-23-2017 Lipid 1996 panel *Lipid Profile CC PCP [facility] Work Phone: Start: 07-23-2017 End: 01-23-2017 *Hepatic Function Panel *Hepatic Function Panel [facility] Work Phone: Start: 07-23-2017 End: 01-23-2017 Lipid panel [AGGREGATE] *Lipid Profile CC PCP [facility] Work Phone: Start: 01-29-2017 End: 01-29-2017 BONNIEN BONNIEN [facility] Work Phone: Start: 01-29-2017 End: 01-29-2017 Follow Up Appt 6 months Follow Up Appt 6 months [facility] Work Phone: Start: 01-29-2017 End: 01-29-2017 Appointment Appointment [facility] Work Phone: Start: 01-29-2017 End: 01-29-2017 GREGORY NICOLEN [facility] Work Phone: Start: 01-29-2017 End: 01-29-2017 Follow Up Appt 6 months Follow Up Appt 6 months [facility] Work Phone: Start: 01-12-2017 End: 01-22-2017 *Hepatic Function Panel *Hepatic Function Panel [facility] Work Phone: Start: 01-12-2017 End: 01-22-2017 Lipid 1996 panel *Lipid Profile CC PCP [facility] Work Phone: Start: 01-12-2017 End: 01-22-2017 *Hepatic Function Panel *Hepatic Function Panel [facility] Work Phone: Start: 01-12-2017 End: 01-22-2017 Lipid panel [AGGREGATE] *Lipid Profile CC PCP [facility] Work Phone: Start: 07-17-2016 End: 07-17-2016 DJN DJN [facility] Work Phone: Start: 07-17-2016 End: 07-17-2016 Follow Up Appt 6 months Follow Up Appt 6 months [facility] Work Phone: Start: 07-17-2016 End: 07-17-2016 DJN DJN [facility] Work Phone: Start: 07-17-2016 End: 07-17-2016 Follow Up Appt 6 months Follow Up Appt 6 months [facility] Work Phone: Start: 07-12-2016 End: 07-13-2016 *Hepatic Function Panel *Hepatic Function Panel [facility] Work Phone: Start: 07-12-2016 End: 07-14-2016 Lipid 1996 panel *Lipid Profile CC PCP [facility] Work Phone: Start: 07-12-2016 End: 07-13-2016 *Hepatic Function Panel *Hepatic Function Panel [facility] Work Phone: Start: 07-12-2016 End: 07-14-2016 Lipid panel [AGGREGATE] *Lipid Profile CC PCP [facility] Work Phone: Start: 01-19-2016 End: 01-10-2016 *Hepatic Function Panel *Hepatic Function Panel [facility] Work Phone: Start: 01-19-2016 End: 01-10-2016 *Hepatic Function Panel *Hepatic Function Panel [facility] Work Phone: Start: 01-14-2016 End: 01-14-2016 DJN DJN [facility] Work Phone: Start: 01-14-2016 End: 01-14-2016 Follow Up Appt 6 months Follow Up Appt 6 months [facility] Work Phone: Start: 01-14-2016 End: 01-14-2016 DJN DJN [facility] Work Phone: Start: 01-14-2016 End: 01-14-2016 Follow Up Appt 6 months Follow Up Appt 6 months [facility] Work Phone: Start: 01-10-2016 End: 01-10-2016 Lipid 1996 panel *Lipid Profile CC PCP [facility] Work Phone: Start: 01-10-2016 End: 01-10-2016 Lipid panel [AGGREGATE] *Lipid Profile CC [facility]CP [facility] [facility] Work Phone: Start: 07-26-2015 End: 07-19-2015 *Hepatic Function Panel *Hepatic Function Panel [facility] Work Phone: Start: 07-26-2015 End: 07-19-2015 Lipid 1996 panel *Lipid Profile CC PCP [facility] Work Phone: Start: 07-26-2015 End: 07-19-2015 *Hepatic Function Panel *Hepatic Function Panel [facility] Work Phone: Start: 07-26-2015 End: 07-19-2015 Lipid panel [AGGREGATE] *Lipid Profile CC PCP [facility] Work Phone: Start: 07-19-2015 End: 07-19-2015 GREGORY JENKINS [facility] Work Phone: Start: 07-19-2015 End: 07-19-2015 Follow Up Appt 6 months Follow Up Appt 6 months [facility] Work Phone: Start: 07-19-2015 End: 07-19-2015 BONNIEN BONNIEN [facility] Work Phone: Start: 07-19-2015 End: 07-19-2015 Follow Up Appt 6 months Follow Up Appt 6 months [facility] Work Phone: Start: 01-26-2015 End: 01-26-2015 BONNIEN DJN [facility] Work Phone: Start: 01-26-2015 End: 01-26-2015 Follow Up Appt 6 months Follow Up Appt 6 months [facility] Work Phone: Start: 01-26-2015 End: 01-26-2015 Stress Echocardiogram (treadmill) Stress Echocardiogram (treadmill) [facility] Work Phone: Start: 01-26-2015 End: 01-26-2015 GREGORY JENKINS [facility] Work Phone: Start: 01-26-2015 End: 01-26-2015 Follow Up Appt 6 months Follow Up Appt 6 months [facility] Work Phone: Start: 01-26-2015 End: 01-26-2015 Stress Echocardiogram (treadmill) Stress Echocardiogram (treadmill) [facility] [employer] Work Phone: Start: 01-22-2015 End: 01-25-2015 *Hepatic Function Panel *Hepatic Function Panel [facility] [employer] Work Phone: Start: 01-22-2015 End: 01-25-2015 Lipid 1996 panel *Lipid Profile CC PCP [facility] Work Phone: Start: 01-22-2015 End: 01-25-2015 *Hepatic Function Panel *Hepatic Function Panel [facility] [employer] Work Phone: Start: 01-22-2015 End: 01-25-2015 Lipid panel [AGGREGATE] *Lipid Profile CC PCP [facility] Work Phone: Start: 07-15-2014 End: 07-20-2014 *Hepatic Function Panel *Hepatic Function Panel [facility] Work Phone: Start: 07-15-2014 End: 07-20-2014 Lipid 1996 panel *Lipid Profile CC PCP [facility] Work Phone: Start: 07-15-2014 End: 07-20-2014 *Hepatic Function Panel *Hepatic Function Panel [facility] Work Phone: Start: 07-15-2014 End: 07-20-2014 Lipid panel [AGGREGATE] *Lipid Profile CC PCP [facility] Work Phone: Start: 01-20-2014 End: 01-20-2014 GREGORY JENKINS [facility] Work Phone: Start: 01-20-2014 End: 01-22-2014 Ecg routine ecg w/least 12 lds w/i&r EKG (In office) [facility] Work Phone: Start: 01-20-2014 End: 01-20-2014 Follow Up Appt 1 year Follow Up Appt 1 year [facility] Work Phone: Start: 01-20-2014 End: 01-20-2014 DJN DJN [facility] Work Phone: Start: 01-20-2014 End: 01-22-2014 Electrocardiogram, complete EKG (In office) [facility] Work Phone: Start: 01-20-2014 End: 01-20-2014 Follow Up Appt 1 year Follow Up Appt 1 year [facility] Work Phone: Start: 12-29-2013 End: 01-15-2014 *Hepatic Function Panel *Hepatic Function Panel [facility] Work Phone: Start: 12-29-2013 End: 01-15-2014 Lipid 1996 panel *Lipid Profile CC PCP [facility] Work Phone: Start: 12-29-2013 End: 01-15-2014 *Hepatic Function Panel *Hepatic Function Panel [facility] Work Phone: Start: 12-29-2013 End: 01-15-2014 Lipid panel [AGGREGATE] *Lipid Profile CC PCP [facility] Work Phone: Start: 06-28-2013 End: 07-16-2013 *Hepatic Function Panel *Hepatic Function Panel [facility] Work Phone: Start: 06-28-2013 End: 07-16-2013 Lipid 1996 panel *Lipid Profile CC PCP [facility] Work Phone: Start: 06-28-2013 End: 07-16-2013 *Hepatic Function Panel *Hepatic Function Panel [facility] Work Phone: Start: 06-28-2013 End: 07-16-2013 Lipid panel [AGGREGATE] *Lipid Profile CC PCP [facility] Work Phone: Start: 01-14-2013 End: 01-14-2013 GREGORY BONNIEHarry [facility] Work Phone: Start: 01-14-2013 End: 01-14-2013 Follow Up Appt 1 year Follow Up Appt 1 year [facility] Work Phone: Start: 01-14-2013 End: 01-14-2013 Stress Echocardiogram (treadmill) Stress Echocardiogram (treadmill) [facility] [employer] Work Phone: Start: 01-14-2013 End: 01-14-2013 GREGORY JENKINS [facility] [employer] Work Phone: Start: 01-14-2013 End: 01-14-2013 Follow Up Appt 1 year Follow Up Appt 1 year [facility] Work Phone: Start: 01-14-2013 End: 01-14-2013 Stress Echocardiogram (treadmill) Stress Echocardiogram (treadmill) [facility] [employer] Work Phone: Start: 12-29-2012 End: 01-06-2013 *Hepatic Function Panel *Hepatic Function Panel [employer] Work Phone: Start: 12-29-2012 End: 01-06-2013 Lipid 1996 panel *Lipid Profile [facility] [employer] Phone: Start: 12-29-2012 End: 01-06-2013 *Hepatic Function Panel *Hepatic Function Panel [facility] [employer] Work Phone: Start: 12-29-2012 End: 01-06-2013 Lipid panel [AGGREGATE] *Lipid Profile [facility] Work Phone: Start: 06-25-2012 End: 07-18-2012 *Hepatic Function Panel *Hepatic Function Panel [facility] [employer] Work Phone: Start: 06-25-2012 End: 06-25-2012 Ecg routine ecg w/least 12 lds w/i&r EKG (In office) [facility] [employer] Work Phone: Start: 06-25-2012 End: 06-25-2012 Follow Up Appt 6 months Follow Up Appt 6 months [employer] Work Phone: Start: 06-25-2012 End: 07-18-2012 Lipid 1996 panel *Lipid Profile [facility] [employer] Phone: Start: 06-25-2012 End: 07-18-2012 *Hepatic Function Panel *Hepatic Function Panel [facility] [employer] Phone: Start: 06-25-2012 End: 06-25-2012 Electrocardiogram, complete EKG (In office) [facility] [employer] Work Phone: Start: 06-25-2012 End: 06-25-2012 Follow Up Appt 6 months Follow Up Appt 6 months [facility] [employer] Work Phone: Start: 06-25-2012 End: 07-18-2012 Lipid panel [AGGREGATE] *Lipid Profile [facility] [employer] [facility] [employer] Work Phone: Start: 12-21-2011 End: 01-11-2012 *Hepatic Function Panel *Hepatic Function Panel [facility] [employer] Work Phone: Start: 12-21-2011 End: 12-21-2011 Follow Up Appt 6 months Follow Up Appt 6 months [facility] [employer] Work Phone: Start: 12-21-2011 End: 01-11-2012 Lipid 1996 panel *Lipid Profile [facility] [employer] Phone: Start: 12-21-2011 End: 01-11-2012 *Hepatic Function Panel *Hepatic Function Panel [facility] [employer] Phone: Start: 12-21-2011 End: 12-21-2011 Follow Up Appt 6 months Follow Up Appt 6 months [facility] [employer] Work Phone: Start: 12-21-2011 End: 01-11-2012 Lipid panel [AGGREGATE] *Lipid Profile [facility] Work Phone: Start: 05-19-2011 End: 05-19-2011 Ecg routine ecg w/least 12 lds w/i&r EKG (In office) [employer] Phone: Start: 05-19-2011 End: 05-19-2011 Echocardiography Echocardiogram (complete) [facility] Work Phone: Start: 05-19-2011 End: 05-19-2011 Follow Up Appt 3 months Follow Up Appt 3 months [employer] Work Phone: Start: 05-19-2011 End: 05-19-2011 Nuclear stress test -adenosine Nuclear stress test -adenosine [facility] Work Phone: Start: 05-19-2011 End: 05-19-2011 Echocardiography Echocardiogram (complete) [facility] Work Phone: Start: 05-19-2011 End: 05-19-2011 Electrocardiogram, complete EKG (In office) [facility] Work Phone: Start: 05-19-2011 End: 05-19-2011 Follow Up Appt 3 months Follow Up Appt 3 months [employer] Work Phone: Start: 05-19-2011 End: 05-19-2011 Nuclear stress test -adenosine Nuclear stress test -adenosine [facility] Work Phone: Start: 2005 RSV Vaccine (1 - 1-d ose 60+ series) RSV Vaccine (1 - 1-dose 60+ series) [facility] Hemoglobin.gastroint estina l.lower [Presence] in Stool by Immunoassay FECAL OCCULT BLOOD TEST Lab Routine Well adult exam Screening for colon cancer Ordered: 05/31/2022 [facility] Work Phone: Comment on above: Ordered: 05/31/2022 Hemoglobin.gastroint estina l.lower [Presence] in Stool by Immunoassay IMMUNOCHEMICAL FECAL OCCULT BLOOD TEST Lab Routine Screening for colon cancer Ordered: 08/08/2023 [facility] Work Phone: Comment on above: Ordered: 08/08/2023 [facility] W str ess and W radionuclide IV [facility] OXIMETRY - NOCTURNAL OXIMETRY - NOCTURNAL Procedures Routine Pneumonia due to COVID-19 virus Ordered: 04/10/2022 [facility] Work Phone: Comment on above: Ordered: 04/10/2022 End: 05-18-2024 OXIMETRY WITH AMBULATION OXIMETRY WITH AMBULATION PFT Routine Hypoxemia 1 Occurrences starting 04/19/2023 until 05/18/2024 [facility] Work Phone: Comment on above: 1 Occurrences starti ng 04/19/2023 until 05/18/2024 Patient Education [facility] Work Phone: Patient referral [facility] Work Phone: End: 07-24-2025 US Lower extremity artery - bilateral [facility] V[facility] Lab Routine Cyanosis Diminished pulses in lower extremity 1 Occurrences starting 07/24/2024 until 07/24/2025 [facility] Comment on above: 1 Occurrences starti ng 07/24/2024 until 07/24/2025 [facility] Immunizations Immunization Date Immunization Notes Care Provider Fa [facility] 02-14-2024 influenza, high dose seasonal, preservative-free César Merrill MD Work Phone: [facility] 02-14-2024 zoster vaccine recombinant César Merrill MD Work Phone: [facility] 02-05-2023 influenza (HD-IIV4) vaccine, age 65+ yr, high dose, quadrivalent, PF (FLUZONE HIGH-DOSE) César Merrill MD Work Phone: [facility] 02-05-2023 influenza virus vacc ine, unspecified formulation Xr [facility] Work Phone: [facility] 05-31-2022 influenza, high-dose , quadrivalent vaccine (FLUZONE HIGH DOSE QUADRIVALENT) César Merrill MD Work Phone: [facility] 03-07-2021 influenza, high-dose , quadrivalent vaccine (FLUZONE HIGH DOSE QUADRIVALENT) César Merrill MD Work Phone: [facility] 10-27-2020 tetanus toxoid, redu silva diphtheria toxoid, and acellular pertussis vaccine, adsorbed César Merrill MD Work Phone: [facility] 10-27-2020 zoster vaccine recombinant César Merrill MD Work Phone: [facility] 02-25-2019 influenza, high dose seasonal, preservative-free César Merrill MD Work Phone: [facility] 02-22-2018 influenza, high dose seasonal, preservative-free César Merrill MD Work Phone: [facility] 04-12-2017 influenza, injectabl e, quadrivalent, contains preservative César Merrill MD Work Phone: [facility] 12-06-2015 pneumococcal polysaccharide vaccine, 23 valent César Merrill MD Work Phone: [facility] 11-24-2014 pneumococcal conjuga te vaccine, 13 valent César Merrill MD Work Phone: [facility] 10-22-2013 measles, mumps and rubella virus vaccine César Merrill MD Work Phone: [facility] Work Phone: 09-03-2013 measles, mumps and rubella virus vaccine César Merrill MD Work Phone: [facility] Work Phone: 01-24-2010 influenza virus vacc ine, unspecified formulation César Merrill MD Work Phone: [facility] 05-22-2008 tetanus toxoid, redu silva diphtheria toxoid, and acellular pertussis vaccine, adsorbed César Merrill MD Work Phone: [facility] Work Phone: 02-28-1998 pneumococcal polysaccharide vaccine, 23 valjing Merrill MD Work Phone: [facility] Payers Date Payer Category Payer Unknown [id number] 2024 Unknown [id number] 2024 Self-pay [id number] Unknown [id number] Unknown [id number] Unknown [id number] Unknown [id number] Unknown [id number] [id number] Unknown [id number] [id number] [id number] Unknown [id number] [id number] Social History Date Type Detail Facility Start: 03-07-2021 End: 03-16-2023 Tobacco smoking status OHIS Ex-smoker [facility] Start: 1963 End: 07-29-1997 History of tobacco use Current smoker [facility] Start: 05-12-2021 End: 08-22-2024 Alcohol intake Current non-drinker of alcohol (finding) [facility] Start: 1945 Sex Assigned At Not on file [facility] Start: 07-14-2021 End: 03-16-2023 Tobacco smoking status [facility] Unknown if ever smoked [facility] Start: 1945 Sex Assigned At Male W [facility] Start: 01-12-2021 End: 11-15-2021 Exposure to SARS-CoV-2 (event) Not sure [facility] Work Phone: Start: 1963 End: 07-29-1997 History of tobacco use Cigarette Smoker [facility] Work Phone: Start: 03-07-2021 End: 02-14-2024 Tobacco use and exposure Former smokeless tobacco user [facility] Work Phone: Start: 05-31-2022 End: 02-05-2023 History of Social function [facility] Work Phone: Start: 05-31-2022 End: 02-05-2023 Tobacco use panel [facility] Work Phone: Adult Depression Screening Assessment 0 [facility] Work Phone: Medical Equipment Procedure Code Equipment Code Equipment Original Text Equipment Identifier Dates [id number] FDA Start: 04-12-2023 SCREW FDA Start: 04-12-2023 SCREW FDA Start: 04-12-2023 SEALANT,TISSEEL 2ML FDA Start : 04-12-2023 SEALANT,TISSEEL 2ML FDA Start : 04-12-2023 SEALANT,TISSEEL 2ML FDA Start : 04-12-2023 SET SCREW FDA Start: 04-12-2023 SET SCREW FDA Start: 04-12-2023 SET SCREW FDA Start: 04-12-2023 SET SCREW FDA Start: 04-12-2023 SET SCREW FDA Start: 04-12-2023 GRAFT,DESHAWN ELITE MED FDA S tart: 04-12-2023 SET SCREW FDA Start: 04-12-2023 STERILE TALOS PE EK IBFD-CAGE FDA Start: 04-12-2023 STERILE TALOS PE EK IBFD-CAGE FDA Start: 04-12-2023 Collagen haemost atic agent, non-antimicrobial ()[id number] FDA Start: 04-12-2023 Collagen haemost atic agent, non-antimicrobial ()[id number] FDA Start: 04-12-2023 Plant polysaccha ride haemostatic agent, bioabsorbable ()[id number] FDA Start: 04-12-2023 PUTTY,BONE DBM 5 CC TIJERINA FDA Start: 04-12-2023 AMNA FDA Start: 04-12-2023 AMNA FDA Start: 04-12-2023 SCREW FDA Start: 04-12-2023 SCREW FDA Start: 04-12-2023 SCREW FDA Start: 04-12-2023 SCREW FDA Start: 04-12-2023 [id number] FDA Start: 04-12-2023 SCREW FDA Start: 04-12-2023 SCREW FDA Start: 04-12-2023 SEALANT,TISSEEL 2ML FDA Start : 04-12-2023 SEALANT,TISSEEL 2ML FDA Start : 04-12-2023 SEALANT,TISSEEL 2ML FDA Start : 04-12-2023 SET SCREW FDA Start: 04-12-2023 SET SCREW FDA Start: 04-12-2023 SET SCREW FDA Start: 04-12-2023 SET SCREW FDA Start: 04-12-2023 SET SCREW FDA Start: 04-12-2023 GRAFT,DESHAWN ELITE MED FDA S tart: 04-12-2023 SET SCREW FDA Start: 04-12-2023 STERILE TALOS PE EK IBFD-CAGE FDA Start: 04-12-2023 STERILE TALOS PE EK IBFD-CAGE FDA Start: 04-12-2023 PUTTY,BONE DBM 5 CC TIJERINA FDA Start: 04-12-2023 AMNA FDA Start: 04-12-2023 AMNA FDA Start: 04-12-2023 SCREW FDA Start: 04-12-2023 SCREW FDA Start: 04-12-2023 SCREW FDA Start: 04-12-2023 SCREW FDA Start: 04-12-2023 [id number] FDA Start: 04-12-2023 SCREW FDA Start: 04-12-2023 SCREW FDA Start: 04-12-2023 SEALANT,TISSEEL 2ML FDA Start : 04-12-2023 SEALANT,TISSEEL 2ML FDA Start : 04-12-2023 SEALANT,TISSEEL 2ML FDA Start : 04-12-2023 SET SCREW FDA Start: 04-12-2023 SET SCREW FDA Start: 04-12-2023 SET SCREW FDA Start: 04-12-2023 SET SCREW FDA Start: 04-12-2023 SET SCREW FDA Start: 04-12-2023 GRAFT,DESHAWN ELITE MED FDA S tart: 04-12-2023 SET SCREW FDA Start: 04-12-2023 STERILE TALOS PE EK IBFD-CAGE FDA Start: 04-12-2023 STERILE TALOS PE EK IBFD-CAGE FDA Start: 04-12-2023 PUTTY,BONE DBM 5 CC TIJERINA FDA Start: 04-12-2023 AMNA FDA Start: 04-12-2023 AMNA FDA Start: 04-12-2023 SCREW FDA Start: 04-12-2023 SCREW FDA Start: 04-12-2023 SCREW FDA Start: 04-12-2023 SCREW FDA Start: 04-12-2023 Goals Date Patient Goal Desired Activity /State Functional Status Date Assessment Result Facility 04-14-2023 Functional status Patient Activity Chair [facility] Work Phone: 04-14-2023 Functional status With Assist of 1 [facility] Work Phone: 11-24-2014 Are you deaf, or do you have serious difficulty hearing Yes 11/24/2014 8:22 AM EDT Bryn Benedict LPN Yes [facility] 11-24-2014 Are you blind, or do you have serious difficulty seeing, even when wearing glasses No 11/24/2014 8:22 AM EDT Bryn Benedict LPN No [facility] 11-24-2014 Do you have serious difficulty walking or climbing stairs No 11/24/2014 8:22 AM EDT Bryn Benedict LPN No [facility] 11-24-2014 Do you have difficul ty dressing or bathing No 11/24/2014 8:22 AM EDT Bryn Benedict LPN No [facility] 11-24-2014 Because of a physica l, mental, or emotional condition, do you have difficulty doing errands alone such as visiting a physician's office or shopping No 11/24/2014 8:22 AM EDT Bryn Benedict LPN No [facility] Mental Status Date Assessment Result Facility 04-14-2023 Cognitive function Voice/Name [facility] Work Phone: 11-24-2014 Because of a physica l, mental, or emotional condition, do you have serious difficulty concentrating, remembering, or making decisions No 11/24/2014 8:22 AM EDT Bryn Benedict LPN No [facility] Clinical Notes 07-29-1997 to 10-17-2024 Diamond Cain MA - 10/17/2024 1:51 PM EDTTelephone Encounter - Tamera Yeung - 10/14/2024 2:21 PM EDTTelephone Encounter - Tamera Yeung - 10/14/2024 2:21 PM EDT Note Date & Type Note Facility 10-17-2024 Note HNO ID: [id number] Author: DIAMOND CAIN MA Service: ? Author Type: Liability Claims Adjuster Type: Progress Notes Filed: 10/17/2024 13:51 Note Text: Scan on 10/03/2024 8:33 AM by ProviderTori PA-C: Chemistry Scan on 10/05/2024 6:29 AM by ProviderTori PA-C: CT Scan Diamond Cain MA [facility] 10-17-2024 History of Presen t illness Narrative Scan on 10/03/2024 8:33 AM by ProviderTori PA-C: Chemistry Scan on 10/05/2024 6:29 AM by ProviderTori PA-C: CT Scan Diamond Cain MA documented in this encounter [facility] 10-14-2024 Telephone encounter Note Patient son calling back for message. The message was read and patient son will call the heart group for the heart medication [facility] 10-14-2024 Miscellaneous Notes Patient son calling back for message. The message was read and patient son will call the heart group for the heart medication Patient has refills on Losartan and gets his atenolol through [facility]. Diamond Cain MA Left message for patient's EC . Diamond Cain MA' Patient has been identified by name and date of : Yes, Patient phones for refill(s): Requested Prescriptions Pending Prescriptions Disp Refills atenolol (TENORMIN) 25 mg tablet 90 tablet Sig: Take 1 tablet by mouth once daily. Per [facility] losartan-hydroCHLOROthiazide (HYZAAR) 50-12.5 mg per tablet 90 tablet 1 Sig: Take 1 tablet by mouth once daily. Date of last office visit in primary care: 07/24/2024 Date of next office visit in primary care: 01/27/2025 Please advise. Thank you. Zita Patel. documented in this encounter [facility] 10-14-2024 Telephone encounter Note Patient has refills on Losartan and gets his atenolol through [facility]. Diamond Cain MA Left message for patient's EC . Diamond Cain MA' [facility] 10-14-2024 Telephone encounter Note Prescription Refill Information The patient has been identified by name and date of : Yes Caregiver verified no other encounters exist for this prescription request: Yes Caregiver confirmed with patient/requestor that no other refills are due, in the near future, with this provider at this time: Yes The last office visit in the department: 06/2024 Does the patient have a future office visit with this provider/department: Yes Requested Prescriptions Pending Prescriptions Disp Refills atorvastatin (LIPITOR) 40 mg tablet 30 tablet 2 Sig: Take 1 tablet by mouth once daily. Diamond Cain MA October 14, 2024 11:10 AM [facility] 10-14-2024 Miscellaneous Notes Prescription Refill Information The patient has been identified by name and date of : Yes Caregiver verified no other encounters exist for this prescription request: Yes Caregiver confirmed with patient/requestor that no other refills are due, in the near future, with this provider at this time: Yes The last office visit in the department: 06/2024 Does the patient have a future office visit with this provider/department: Yes Requested Prescriptions Pending Prescriptions Disp Refills atorvastatin (LIPITOR) 40 mg tablet 30 tablet 2 Sig: Take 1 tablet by mouth once daily. Diamond Cain MA October 14, 2024 11:10 AM Patient has been identified by name and date of : Yes, Patient phones for refill(s): Requested Prescriptions Pending Prescriptions Disp Refills atorvastatin (LIPITOR) 40 mg tablet 30 tablet 2 Sig: Take 1 tablet by mouth once daily. Date of last office visit in primary care: 07/24/2024 Date of next office visit in primary care: 01/27/2025 Please advise. Thank you. Zita Patel. documented in this encounter [facility] 10-14-2024 Telephone encounter Note Patient has been identified by name and date of : Yes, Patient phones for refill(s): Requested Prescriptions Pending Prescriptions Disp Refills atorvastatin (LIPITOR) 40 mg tablet 30 tablet 2 Sig: Take 1 tablet by mouth once daily. Date of last office visit in primary care: 07/24/2024 Date of next office visit in primary care: 01/27/2025 Please advise. Thank you. Zita Patel. [facility] 10-14-2024 Telephone encounter Note Patient has been identified by name and date of : Yes, Patient phones for refill(s): Requested Prescriptions Pending Prescriptions Disp Refills atenolol (TENORMIN) 25 mg tablet 90 tablet Sig: Take 1 tablet by mouth once daily. [facility] losartan-hydroCHLOROthiazide (HYZAAR) 50-12.5 mg per tablet 90 tablet 1 Sig: Take 1 tablet by mouth once daily. Date of last office visit in primary care: 07/24/2024 Date of next office visit in primary care: 01/27/2025 Please advise. Thank you. Zita Patel. [facility] 10-05-2024 Radiology Diagnostic study note [facility] Imaging Services [address] [place] [address] CTA Abd w/Runoff W/WO Contrast MR#: [id number] Acct: [id number] Name: KATHARINE CANO Rep #: [id number] : 1945 M 79 From: Salazar Goldberg MD PCP: Dr. César Merrill MD Status: REG CLI Study:CTA Abd w/Runoff W/WO Contrast Date of Exam: 10/03/24 Exam# [id number] Ordering Dr: Kyrie Rush PA PROCEDURE: CTA ABD W/RUNOFF W/WO CONTRAST 10/03/2024 REASON FOR EXAM: SEVERE PAD TECHNIQUE: CTA imaging of the abdomen and pelvis with intravenous contrast. Multiplanar andmultisequence images were obtained. CONTRAST: Isovue 370 VOLUME: 100 mL One or more dose reduction techniques were used (e.g., Automated exposure control, adjustment of the mA and/or kV according to patient size, use of iterative reconstruction technique). RADIATION DOSE SUMMARY: CTDlvol: 4.32 mGy DLP: 300 mGycm COMPARISON: None. FINDINGS: Aorta: Moderate stenosis of the abdominal aorta. Celiac: Mild stenosis. SMA: Moderate stenosis. BROOKE : Mild stenosis. Right Renal: Moderate stenosis. Left Renal: Mild stenosis. On the right side: Common iliac: High-grade subocclusive stenosis. External iliac : Mild stenosis. Internal iliac : Mild stenosis. Common femoral artery: Moderate stenosis. Superficial femoral artery : Moderate stenosis. Deep femoral artery : Mild stenosis. Popliteal artery : Mild stenosis. Posterior tibial artery : Mild stenosis. Anterior tibial artery : Mild stenosis. Peroneal artery : Mild stenosis. Dorsalis pedis artery : Mild stenosis. On the left side: Common iliac: Mild stenosis. External iliac : Mild stenosis. Internal iliac : Moderate stenosis. Common femoral artery: High-grade subocclusive stenosis. Superficial femoral artery : Moderate stenosis. Deep femoral artery : Mild stenosis. Popliteal artery : Mild stenosis. Posterior tibial artery : Mild stenosis. Anterior tibial artery : Mild stenosis. Peroneal artery : Mild stenosis. Dorsalis pedis artery : Mild stenosis. Cholelithiasis without acute cholecystitis. Uncomplicated colonic diverticulosis. Prostatomegaly. Diffuse thickening of the bladder. Chronic bladder outlet obstruction versus cystitis. Unremarkable metallic prosthesis of the knees. Prior decompression and fusion of the lower lumbar levels. CT/CTA Abd w/Runoff W/WO Contrast IMPRESSION: Atherosclerosis. Multifocal stenosis. Reading Location: [place] [address] CC: STEPHEN Toth; Dr. César Merrill MD ~ [employer]: Signed [facility] 09-10-2024 Telephone encounter Note The following approved medication requests have been transmitted electronically. Requested Prescriptions Signed Prescriptions Disp Refills pioglitazone (ACTOS) 45 mg tablet 90 tablet 1 Sig: Take 1 tablet by mouth once daily. Authorizing Provider: CÉSAR MERRILL tamsulosin (FLOMAX) 0.4 mg 90 capsule 1 Sig: Take 1 capsule by mouth daily at bedtime. Bringing good RX coupon. Authorizing Provider: CÉSAR MERRILL losartan-hydroCHLOROthiazide (HYZAAR) 50-12.5 mg per tablet 90 tablet 1 Sig: Take 1 tablet by mouth once daily. Authorizing Provider: CÉSAR MERRILL MD [facility] 09-10-2024 Miscellaneous Notes The following approved medication requests have been transmitted electronically. Requested Prescriptions Signed Prescriptions Disp Refills pioglitazone (ACTOS) 45 mg tablet 90 tablet 1 Sig: Take 1 tablet by mouth once daily. Authorizing Provider: CÉSAR MERRILL tamsulosin (FLOMAX) 0.4 mg 90 capsule 1 Sig: Take 1 capsule by mouth daily at bedtime. Bringing good RX coupon. Authorizing Provider: CÉSAR MERRILL losartan-hydroCHLOROthiazide (HYZAAR) 50-12.5 mg per tablet 90 tablet 1 Sig: Take 1 tablet by mouth once daily. Authorizing Provider: CÉSAR MERRILL MD Prescription Refill Information The patient has been identified by name and date of : Yes Caregiver verified no other encounters exist for this prescription request: Yes Caregiver confirmed with patient/requestor that no other refills are due, in the near future, with this provider at this time: Yes The last office visit in the department: 07/24/24 Does the patient have a future office visit with this provider/department: Yes Requested Prescriptions Pending Prescriptions Disp Refills pioglitazone (ACTOS) 45 mg tablet 90 tablet 1 Sig: Take 1 tablet by mouth once daily. tamsulosin (FLOMAX) 0.4 mg 90 capsule 1 Sig: Take 1 capsule by mouth daily at bedtime. Bringing good RX coupon. losartan-hydroCHLOROthiazide (HYZAAR) 50-12.5 mg per tablet 90 tablet 1 Sig: Take 1 tablet by mouth once daily. Demarcus Higginbotham LPN September 10, 2024 2:52 PM Prescription Refill Information The patient has been identified by name and date of : Yes Caregiver verified no other encounters exist for this prescription request: Yes Caregiver confirmed with patient/requestor that no other refills are due, in the near future, with this provider at this time: Yes The last office visit in the department: 07/24/24 Does the patient have a future office visit with this provider/department: Yes 01/27/25 Requested Prescriptions Pending Prescriptions Disp Refills pioglitazone (ACTOS) 45 mg tablet 90 tablet 1 Sig: Take 1 tablet by mouth once daily. tamsulosin (FLOMAX) 0.4 mg 90 capsule 1 Sig: Take 1 capsule by mouth daily at bedtime. Bringing good RX coupon. losartan-hydroCHLOROthiazide (HYZAAR) 50-12.5 mg per tablet 90 tablet 1 Sig: Take 1 tablet by mouth once daily. Sissy Figueroa September 10, 2024 11:56 AM documented in this encounter [facility] 09-10-2024 Telephone encounter Note Prescription Refill Information The patient has been identified by name and date of : Yes Caregiver verified no other encounters exist for this prescription request: Yes Caregiver confirmed with patient/requestor that no other refills are due, in the near future, with this provider at this time: Yes The last office visit in the department: 07/24/24 Does the patient have a future office visit with this provider/department: Yes Requested Prescriptions Pending Prescriptions Disp Refills pioglitazone (ACTOS) 45 mg tablet 90 tablet 1 Sig: Take 1 tablet by mouth once daily. tamsulosin (FLOMAX) 0.4 mg 90 capsule 1 Sig: Take 1 capsule by mouth daily at bedtime. Bringing good RX coupon. losartan-hydroCHLOROthiazide (HYZAAR) 50-12.5 mg per tablet 90 tablet 1 Sig: Take 1 tablet by mouth once daily. Demarcus Higginbotham LPN September 10, 2024 2:52 PM [facility] 09-10-2024 Telephone encounter Note Prescription Refill Information The patient has been identified by name and date of : Yes Caregiver verified no other encounters exist for this prescription request: Yes Caregiver confirmed with patient/requestor that no other refills are due, in the near future, with this provider at this time: Yes The last office visit in the department: 07/24/24 Does the patient have a future office visit with this provider/department: Yes 01/27/25 Requested Prescriptions Pending Prescriptions Disp Refills pioglitazone (ACTOS) 45 mg tablet 90 tablet 1 Sig: Take 1 tablet by mouth once daily. tamsulosin (FLOMAX) 0.4 mg 90 capsule 1 Sig: Take 1 capsule by mouth daily at bedtime. Bringing good RX coupon. losartan-hydroCHLOROthiazide (HYZAAR) 50-12.5 mg per tablet 90 tablet 1 Sig: Take 1 tablet by mouth once daily. Sissy Figueroa September 10, 2024 11:56 AM [facility] 09-02-2024 Note HNO ID: [id number] Author: DEMARCUS HIGGINBOTHAM LPN Service: ? Author Type: LICENSED NURSE Type: Progress Notes Filed: 09/02/2024 14:59 Note Text: Scan on 09/02/2024 9:55 AM by Provider, External, PA-C: Consultation - Vascular Medicine/Vascular Surgery [facility] 09-02-2024 History of Presen t illness Narrative Scan on 09/02/2024 9:55 AM by Provider, YURIDIA Valle: Consultation - Vascular Medicine/Vascular Surgery documented in this encounter [facility] 07-31-2024 Telephone encounter Note Reviewed message with Adelaida and he voiced understanding. Valerie Johnson LPN [facility] 07-31-2024 Miscellaneous Notes Reviewed message with Adelaida and he voiced understanding. Valerie Johnson LPN With LDL above 70 I would recommend he switch to the Atorvastatin 40 mg daily. Spoke with son, Adelaida, at this time and notified of Nickie rangel if he uses GoodRx coupon at a different pharmacy ($288 with coupon; he was quoted over $400 at his preferred pharmacy without GoodRx). They will contact office back on whether they choose this route. He currently is taking Simvastatin 80mg daily that was originally prescribed through [facility]. Last visit with them on 07/10/24, stated they encouraged him to follow up with PCP for long-term management of his lipids and hypertension. They are questioning if they should continue with this or start Atorvastatin instead. Please review and advise. Norma Anderson LPN Patient is already on Actos and Glimepiride. Cannot tolerate metformin due to diarrhea. Can we initiate PA for this medication? If not, would have patient check with insurance to see if they have list of covered alternatives. Patient's son Adealida calls and states that Farxiga is too expensive for patient. Adelaida asking for different medication to be called into pharmacy. Please review and advise, Jeannette Oliveira RN documented in this encounter [facility] 07-31-2024 Telephone encounter Note With LDL above 70 I would recommend he switch to the Atorvastatin 40 mg daily. [facility] 07-31-2024 Telephone encounter Note Spoke with son, Adelaida, at this time and notified of Farxiga rangel if he uses GoodRx coupon at a different pharmacy ($288 with coupon; he was quoted over $400 at his preferred pharmacy without GoodRx). They will contact office back on whether they choose this route. He currently is taking Simvastatin 80mg daily that was originally prescribed through [facility]. Last visit with them on 07/10/24, stated they encouraged him to follow up with PCP for long-term management of his lipids and hypertension. They are questioning if they should continue with this or start Atorvastatin instead. Please review and advise. Norma Anderson LPN [facility] 07-31-2024 Telephone encounter Note Patient is already on Actos and Glimepiride. Cannot tolerate metformin due to diarrhea. Can we initiate PA for this medication? If not, would have patient check with insurance to see if they have list of covered alternatives. [facility] 07-31-2024 Telephone encounter Note Patient's son Adelaida calls and states that Farxiga is too expensive for patient. Adelaida asking for different medication to be called into pharmacy. Please review and advise, Jeannette Oliveira RN [facility] 07-30-2024 Telephone encounter Note Patient's son aware. Valerie Johnson LPN [facility] 07-30-2024 Miscellaneous Notes Patient's son aware. Valerie Johnson LPN Rx sent as requested. Call if unable to afford farxiga. Patient's son, Adelaida, returned call and given provider's message below. Son agreeable to provider's recommendations. 1)Son agreeable to have PCP send Farxiga script as pended, for patient. He will let office know if cost is too expensive. 2) Son states he is not sure if pt on cholesterol medication ordered by [facility]. States he will find out and call back with an update. 3) Son states he will instruct pt to take the Vit B12 as advised. Mee Shi RN Left message for pt to contact office. Demarcus Higginbotham LPN Let patient know his A1c is elevated at 7.6% (goal<7% and had been 6.3-6.5%). I would like to put him on farxiga since it has some kidney benefit and his kidney labs showed a reduced function. However, I do not know what it will cost. If it's too expensive they need to let me know so I can come up with a different plan. Also he should try to get 56-64 ounces of water a day for his kidnies. His lipid panel showed his trigs were elevated at 182 (goal<150 and typically was 120-140's), HDL is good at 44 and LDL is elevated at 133 (goal<100 and typically was 40-60's) I'm guessing he is no longer on the simvastatin per [facility]. If so I would suggest we put him on atorvastatin 40 mg a day. His B12 was on the low end of normal so I would advise getting back on Vit B12 1000 mcg but just one a day. All other labs and urine testing were ok. documented in this encounter [facility] 07-30-2024 Telephone encounter Note Rx sent as requested. Call if unable to afford farxiga. [facility] 07-30-2024 Telephone encounter Note Patient's son, Adelaida, returned call and given provider's message below. Son agreeable to provider's recommendations. 1)Son agreeable to have PCP send Farxiga script as pended, for patient. He will let office know if cost is too expensive. 2) Son states he is not sure if pt on cholesterol medication ordered by [facility]. States he will find out and call back with an update. 3) Son states he will instruct pt to take the Vit B12 as advised. Mee Shi RN [facility] 07-26-2024 Telephone encounter Note Left message for pt to contact office. Demarcus Higginbotham LPN [facility] 07-25-2024 Telephone encounter Note Let patient know his A1c is elevated at 7.6% (goal<7% and had been 6.3-6.5%). I would like to put him on farxiga since it has some kidney benefit and his kidney labs showed a reduced function. However, I do not know what it will cost. If it's too expensive they need to let me know so I can come up with a different plan. Also he should try to get 56-64 ounces of water a day for his kidnies. His lipid panel showed his trigs were elevated at 182 (goal<150 and typically was 120-140's), HDL is good at 44 and LDL is elevated at 133 (goal<100 and typically was 40-60's) I'm guessing he is no longer on the simvastatin per [facility]. If so I would suggest we put him on atorvastatin 40 mg a day. His B12 was on the low end of normal so I would advise getting back on Vit B12 1000 mcg but just one a day. All other labs and urine testing were ok. [facility] 07-24-2024 History of Presen t illness Narrative Images from the original note were not included. Chief Complaint Patient presents with: Physical HPI Katharine Cano is a 79 year old male who presents here today for Physical. Patient with hx of CAD, HTN, hyperlipidemia, KARLA, DM2, BPH, and those as below. Ref Range & Units 5 mo ago (02/14/24) 11 mo ago (08/08/23) 2 yr ago (05/31/22) 2 yr ago (11/15/21) 3 yr ago (05/12/21) 3 yr ago (10/27/20) 5 yr ago (08/15/18) Hemoglobin A1C 4.3 - 5.6 % 6.5 High 6.4 High CM 6.3 High CM 7.0 High CM 9.7 High CM 8.7 High CM 6 Patient sees Cardiology last visit 06/2024 Patient sees Ophthalmology last visit 06/2024 A recent phone encounter with patient's pharmacy revealed that he may not be taking his metformin, Glimepiride, gabapentin and baclofen on a regular basis based on last script dates and med refills. Seeing Dr. Castro with [facility] for his hip pains. Patient had run out of his gabapentin and baclofen and since he had no refills he used his 's gabapentin as needed and just stayed off the baclofen. He would like to get back on both meds. Patient stopped his metformin due to diarrhea and since then the diarrhea has stopped. Has been taking an OTC supplement called Curalin. His Fasting Blood sugars are running 170's on average and his before bed are running 140-200. Past medical history, appointments, medications, allergies reviewed. Previous Medical History PAST MEDICAL HISTORY Diagnosis Date Advance directive discussed with patient 11/15/2021 Discussed 10/2021 Benign prostatic hyperplasia with urinary frequency 12/11/2016 Coronary atherosclerosis 05/02/2007 COVID-19 virus infection 01/18/202112/2020 Diabetic eye exam (HCC) 01/11/2017 Last Done: 12/09/2018, No Retinopathy Ex-smoker 12/11/2016 Started at age 17 yo, Up to 7-10 pipes a day. Quite at age 53, [place] 11/2015 neg for AAA History of coronary artery stent placement 12/19/2012 Hypertension, essential 12/11/[address] 11/15/2021 DPA: Wilfredo (son) Mixed hyperlipidemia 11/07/2005 Nocturnal leg cramps 02/22/2018 KARLA (obstructive sleep apnea) 12/19/2012 Phimosis 12/11/2016 Type 2 diabetes mellitus without complication, without long-term current use of insulin (HCC) 08/14/2017 Previous Surgical History PAST SURGICAL HISTORY Procedure Laterality Date 2D ECHO (EXEP) 11/19/2018 EF 55%, stage 1 Diast Dysf, NO change from 04/2011 ARTHRP KNE CONDYLE&PLATU MEDIAL&LAT COMPARTMENTS Right ARTHRP KNE CONDYLE&PLATU MEDIAL&LAT COMPARTMENTS Left FECAL OCCULT BLOOD TEST 05/26/2019 negative PAST SURGICAL HISTORY OF 07/09/2017 right carpal tunnel repair PAST SURGICAL HISTORY OF 09/2017 C6, C7 block and plates PAST SURGICAL HISTORY OF 04/12/2023 lumbar surgery PAST SURGICAL HISTORY OF 03/2023 Spinal fusion L3-L4 STRESS TEST 09/27/2017 negative Family History FAMILY HISTORY Problem Relation Age of Onset Coronary Artery Disease Father after CABG at 81 Cancer Sister renal Kidney Disease Brother other (Lavon's) Brother Cancer Brother Coronary Artery Disease Paternal Uncle 70's COPD No Family History Cystic Fibrosis No Family History Patient Allergies ALLERGIES Allergen Reactions Diovan [Valsartan] Cough Crestor [Rosuvastat* Other: See Comments rash and sore muscles Metformin Diarrhea Zinc Intolerance chest pain Current Medications Current Outpatient Medications on File Prior to Visit Medication Sig tamsulosin (FLOMAX) 0.4 mg Take 1 capsule by mouth daily at bedtime. Bringing good RX coupon. pioglitazone (ACTOS) 45 mg tablet Take 1 tablet by mouth once daily. metFORMIN ER (GLUCOPHAGE XR) 500 mg 24 hr tablet Take 2 in the morning with breakfast and two in the evening. losartan-hydroCHLOROthiazide (HYZAAR) 50-12.5 mg per tablet Take 1 tablet by mouth once daily. glimepiride (AMARYL) 4 mg tablet Take 1 tablet by mouth two times a day with meals. Cyanocobalamin 1,000 mcg TbER Take 1.5 tablets by mouth once daily. baclofen 20 mg tablet Take 1 tablet by mouth daily at bedtime. nitroglycerin sublingual (NITROQUICK) 0.4 mg SL tablet Dissolve 1 tablet under the tongue as directed. EVERY 5 MIN X3 Flurbiprofen 100 mg tablet TAKE ONE TABLET BY MOUTH TWICE DAILY FOR ARTHRITIS, as needed gabapentin (NEURONTIN) 100 mg capsule Take 1 capsule by mouth daily at bedtime for 180 days. For leg cramps atenolol (TENORMIN) 25 mg tablet Take 1 tablet by mouth once daily. Per [facility] ERGOCALCIFEROL, VITAMIN D2, (VITAMIN D2 ORAL) Take 2,000 Units by mouth. simvastatin (ZOCOR) 80 mg tablet Take 1 tablet by mouth daily at bedtime. Per Dr. Barba Aspirin 81 mg ORAL Tab Take 81 mg by mouth. Take (2) tablets in the morning No current facility-administered medications on file prior to visit. Social History Social History Tobacco Use Smoking status: Former Current packs/day: 0.00 Types: Cigarettes Start date: 1963 Quit date: 07/29/1997 Years since quittin.0 Smokeless tobacco: Former Vaping Use Vaping status: Never Used Substance Use Topics Alcohol use: No Drug use: No Review of Symptoms REVIEW OF SYSTEMS GENERAL: No unintentional weight loss, malaise or fevers HEENT: Negative for frequent or significant headaches, No changes in hearing or vision, no nose bleeds or other nasal problems NECK: Negative for lumps, goiter, pain and significant neck swelling RESPIRATORY: Negative for cough, hemoptysis, wheezing, COPD, dyspnea or shortness of breath CARDIOVASCULAR: Negative for chest pain, leg swelling, hypertension, CHF or palpitations GI: No nausea, vomiting, or diarrhea, No heartburn or reflux symptoms, and no blood : No history of dysuria, blood. The flomax helps his stream strength MUSCULOSKELETAL: having hip pain and sees orthoi SKIN: Negative for lesions, rash, and itching PSYCH: Negative for sleep disturbance, mood disorder and recent psychosocial stressors HEMATOLOGY/LYMPHOLOGY: Negative for prolonged bleeding, bruising easily or swollen nodes ENDOCRINE: Negative for cold or heat intolerance, symptoms of low BS's NEURO: No history of headaches, syncope, paralysis, seizures or tremors EXAM: BP 124/54 Pulse 60 Ht 165.1 cm (5' 5) Wt 103 kg (227 lb) SpO2 95% BMI 37.77 kg/m Last 5 Encounter Wt Readings: Date: Wt: 07/24/2024 103 kg (227 lb) 06/10/2024 105.1 kg (231 lb 11.3 oz) 02/14/2024 100.2 kg (220 lb 14.4 oz) 08/08/2023 101.2 kg (223 lb) 04/19/2023 101.2 kg (223 lb) General Appearance: Well appearing, alert, in no acute distress, well-hydrated, well nourished. and Obese. Skin: Skin color, texture, turgor normal, no suspicious rashes or lesions. Head: Normocephalic, no masses, lesions, tenderness or abnormalities. Eyes: Anicteric sclera. Pupils are equally round and reactive to light. Extraocular movements are intact. . Ears: External ears, TM's normal, canals clear. Nose/Sinuses: Nares normal, septum midline, mucosa normal, no drainage or sinus tenderness. Oropharynx: Lips, mucosa, and tongue normal, teeth and gums normal, oropharynx normal. Neck: Supple, no adenopathy; thyroid symmetric, normal size, no bruits. Lungs: Lungs clear to auscultation. No wheezing, rhonchi, rales.. Heart: RRR without murmur, gallop, or rubs. No ectopy. Abdomen: Normal abdominal exam, Abdomen soft, non-tender. Bowel sounds normal. No masses, organomegaly. Extremities: No deformities, skin discoloration. Has mild edema in both lower legs. The left foot has mild cyanosis and reduced cap refill. Musculoskeletal: . Muscular strength intact, No joint swelling, deformity, or tenderness. Peripheral Pulses: Normal in the carotids and radials. Difficult to palpate in the feet/ankles. Neurologic: Gait normal. Reflexes normal and symmetric. Sensation to light touch and crainal nerves 2-12 intact.. Genitalia: Normal, Penis normal. No urethral discharge. Scrotum normal to palpation. No hernia.. Diabetic Foot Exam: Feet: Shoes and socks removed, no deformities, ulcers, calluses, abnormal pulses Decreased on the right and feels absent on the left. , sensitive to 10 gm microfilament, and vibratory exam absent bilaterally. Skin: warm, dry, and no callouses or ulcer Vascular Pulses: As above SEMMES-NIHAR[facility] MONOFILAMENT TESTING Left Foot Right Foot Dorsal Surface Intact Dorsal Surface Intact Plantar Surface Intact Plantar Surface Intact Health Maintenance List Advance Directive Discussion due on 04/30/2024 Urine Albumin:Creatinine Ratio due on 08/07/2024 LDL Cholesterol due on 08/07/2024 Diabetic Foot Exam due on 08/07/2024 Depression Screening due on 08/07/2024 Anxiety Screening due on 08/07/2024 RSV Vaccine(1 - 1-dose 75+ series) due on 08/07/2024 HbA1C due on 08/14/2024 Annual PCP Team Chronic Disease Visit due on 02/13/2025 BP Controlled (<130/80) due on 02/13/2025 Dilated Retinal Exam due on 07/03/2025 DTaP,Tdap,Td Vaccine(3 - Td or Tdap) due on 10/27/2030 Influenza Vaccine Completed Shingrix Vaccine Completed Pneumococcal Vaccine: 50+ Completed Colorectal Cancer Screening Discontinued Covid-19 Vaccine Discontinued Data reviewed A/P ASSESSMENT/PLAN: 1. Well adult exam - ICD9: V70.0, ICD10: Z00.00 (primary diagnosis) - Counseled on healthy diet and regular exercise - Discussed need for and benefit of weight loss. BMI 37.77 kg/(m^2) - Follow up for annual exam in one year 2. Type 2 diabetes mellitus without complication, without long-term current use of insulin (HCC) - ICD9: 250.00, ICD10: E11.9 - Control undetermined, due for labs - Continue current medications - Counseled on healthy diet and regular exercise - Discussed need for and benefit of weight loss. BMI 37.77 kg/(m^2) Check - ALBUMIN/CREATININE RATIO, URINE - COMPREHENSIVE METABOLIC PANEL - HEMOGLOBIN A1C - URINALYSIS, WITH MICROSCOPIC - LIPID PANEL, NONFASTING - COMPLETE BLOOD COUNT AND DIFFERENTIAL 3. Diabetic eye exam (HCC) - ICD9: V72.0, 250.00, ICD10: Z01.00, E11.9 - up to date 4. Hypertension, essential - ICD9: 401.9, ICD10: I10 - Controlled - Continue current medications - Recommend home blood pressure monitoring, to bring results to next visit - Encouraged sodium restriction, DASH or Mediterranean diet - Recommend regular aerobic exercise - Discussed need for and benefit of weight loss. BMI 37.77 kg/(m^2) Check - COMPREHENSIVE METABOLIC PANEL - URINALYSIS, WITH MICROSCOPIC - LIPID PANEL, NONFASTING 5. Mixed hyperlipidemia - ICD9: 272.2, ICD10: E78.2 - Control undetermined, due for labs - Continue current medications - Counseled on healthy diet and regular exercise - Discussed need for and benefit of weight loss. BMI 37.77 kg/(m^2) - COMPREHENSIVE METABOLIC PANEL - URINALYSIS, WITH MICROSCOPIC - LIPID PANEL, NONFASTING 6. 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 - ICD9: 414.01, ICD10: I25.10 - clinically stable and follows with cardio. Check - LIPID PANEL, NONFASTING 7. KARLA (obstructive sleep apnea) - ICD9: 327.23, ICD10: G47.33 - wearing CPAP nightly for at least 4 hrs. 8. Vitamin B12 deficiency - ICD9: 266.2, ICD10: E53.8 Check - VITAMIN B12 - advised him to restart the Vit B12. 9. Benign prostatic hyperplasia with urinary frequency - ICD9: 600.01, 788.41, ICD10: N40.1, R35.0 Doing well with the flomax. 10. Nocturnal leg cramps - ICD9: 327.52, ICD10: G47.62 Cont - GABAPENTIN 100 MG CAPSULE and baclofen. 11. Cyanosis - ICD9: 782.5, ICD10: R23.0 Check - [facility] 12. Diminished pulses in lower extremity - ICD9: 785.9, ICD10: R09.89 Check - [facility] 13. Screening for depression - ICD9: V79.0, ICD10: Z13.31 - DEPRESSION SCREENING 14. Advance directive discussed with patient - ICD9: V65.49, ICD10: Z71.89 - patient to bring in copies. 15. Encounter for screening examination for other mental health and behavioral disorders - ICD9: V79.8, ICD10: Z13.39 - ANXIETY SCREENING Requested Prescriptions Signed Prescriptions Disp Refills gabapentin (NEURONTIN) 100 mg capsule 90 capsule 1 Sig: Take 1 capsule by mouth daily at bedtime for 180 days. For leg cramps baclofen 20 mg tablet 30 tablet 5 Sig: Take 1 tablet by mouth daily at bedtime. pioglitazone (ACTOS) 45 mg tablet 90 tablet 1 Sig: Take 1 tablet by mouth once daily. tamsulosin (FLOMAX) 0.4 mg 90 capsule 1 Sig: Take 1 capsule by mouth daily at bedtime. Bringing good RX coupon. losartan-hydroCHLOROthiazide (HYZAAR) 50-12.5 mg per tablet 90 tablet 1 Sig: Take 1 tablet by mouth once daily. glimepiride (AMARYL) 4 mg tablet 180 tablet 1 Sig: Take 1 tablet by mouth two times a day with meals. F/u 6 months Will await labs to determine if any changes needed. I spent a total of 55 minutes on the date of the service which included preparing to see the patient, [id number] patient care, completing clinical documentation, performing a medically appropriate examination, counseling and educating the patient/family/caregiver and ordering medications, tests, or procedures. César Merrill MD SENSITIVE EXAMINATION CONSENT: The sensitive examination was discussed with the Patient or Patient's Authorized French Comber. As applicable, any other physician, advance practice provider, medical student, or other health professional student that will be observing or involved in the sensitive examination for educational or training purposes was discussed with the Patient or Authorized French Comber. The Patient or Authorized French Comber has agreed to proceed with the sensitive examination. documented in this encounter [facility] 07-24-2024 Note HNO ID: [id number] Author: CÉSAR MERRILL MD Service: ? Author Type: Physician Type: Progress Notes Filed: 07/24/2024 18:43 Note Text: Chief Complaint Patient presents with: Physical HPI Katharine Cano is a 79 year old male who presents here today for Physical. Patient with hx of CAD, HTN, hyperlipidemia, KARLA, DM2, BPH, and those as below. Ref Range AND Units 5 mo ago (02/14/24) 11 mo ago (08/08/23) 2 yr ago (05/31/22) 2 yr ago (11/15/21) 3 yr ago (05/12/21) 3 yr ago (10/27/20) 5 yr ago (08/15/18) Hemoglobin A1C 4.3 - 5.6 % 6.5 High 6.4 High CM 6.3 High CM 7.0 High CM 9.7 High CM 8.7 High CM 6 Patient sees Cardiology last visit 06/2024 Patient sees Ophthalmology last visit 06/2024 A recent phone encounter with patient's pharmacy revealed that he may not be taking his metformin, Glimepiride, gabapentin and baclofen on a regular basis based on last script dates and med refills. Seeing Dr. Castro with [facility] for his hip pains. Patient had run out of his gabapentin and baclofen and since he had no refills he used his 's gabapentin as needed and just stayed off the baclofen. He would like to get back on both meds. Patient stopped his metformin due to diarrhea and since then the diarrhea has stopped. Has been taking an OTC supplement called Curalin. His Fasting Blood sugars are running 170's on average and his before bed are running 140-200. Past medical history, appointments, medications, allergies reviewed. Previous Medical History PAST MEDICAL HISTORY Diagnosis Date Advance directive discussed with patient 11/15/2021 Discussed 10/2021 Benign prostatic hyperplasia with urinary frequency 12/11/2016 Coronary atherosclerosis 05/02/2007 COVID-19 virus infection 01/18/202112/2020 Diabetic eye exam (HCC) 01/11/2017 Last Done: 12/09/2018, No Retinopathy Ex-smoker 12/11/2016 Started at age 17 yo, Up to 7-10 pipes a day. Quite at age 53, [place] 11/2015 neg for AAA History of coronary artery stent placement 12/19/2012 Hypertension, essential 12/11/[address] 11/15/2021 DPA: Wilfredo (son) Mixed hyperlipidemia 11/07/2005 Nocturnal leg cramps 02/22/2018 KARLA (obstructive sleep apnea) 12/19/2012 Phimosis 12/11/2016 Type 2 diabetes mellitus without complication, without long-term current use of insulin (HCC) 08/14/2017 Previous Surgical History PAST SURGICAL HISTORY Procedure Laterality Date 2D ECHO (EXEP) 11/19/2018 EF 55%, stage 1 Diast Dysf, NO change from 04/2011 ARTHRP KNE CONDYLEANDPLATU MEDIALANDLAT COMPARTMENTS Right ARTHRP KNE CONDYLEANDPLATU MEDIALANDLAT COMPARTMENTS Left FECAL OCCULT BLOOD TEST 05/26/2019 negative PAST SURGICAL HISTORY OF 07/09/2017 right carpal tunnel repair PAST SURGICAL HISTORY OF 09/2017 C6, C7 block and plates PAST SURGICAL HISTORY OF 04/12/2023 lumbar surgery PAST SURGICAL HISTORY OF 03/2023 Spinal fusion L3-L4 STRESS TEST 09/27/2017 negative Family History FAMILY HISTORY Problem Relation Age of Onset Coronary Artery Disease Father after CABG at 81 Cancer Sister renal Kidney Disease Brother other (Lavon's) Brother Cancer Brother Coronary Artery Disease Paternal Uncle 70's COPD No Family History Cystic Fibrosis No Family History Patient Allergies ALLERGIES Allergen Reactions Diovan [Valsartan] Cough Crestor [Rosuvastat* Other: See Comments rash and sore muscles Metformin Diarrhea Zinc Intolerance chest pain Current Medications Current Outpatient Medications on File Prior to Visit Medication Sig tamsulosin (FLOMAX) 0.4 mg Take 1 capsule by mouth daily at bedtime. Bringing good RX coupon. pioglitazone (ACTOS) 45 mg tablet Take 1 tablet by mouth once daily. metFORMIN ER (GLUCOPHAGE XR) 500 mg 24 hr tablet Take 2 in the morning with breakfast and two in the evening. losartan-hydroCHLOROthiazide (HYZAAR) 50-12.5 mg per tablet Take 1 tablet by mouth once daily. glimepiride (AMARYL) 4 mg tablet Take 1 tablet by mouth two times a day with meals. Cyanocobalamin 1,000 mcg TbER Take 1.5 tablets by mouth once daily. baclofen 20 mg tablet Take 1 tablet by mouth daily at bedtime. nitroglycerin sublingual (NITROQUICK) 0.4 mg SL tablet Dissolve 1 tablet under the tongue as directed. EVERY 5 MIN X3 Flurbiprofen 100 mg tablet TAKE ONE TABLET BY MOUTH TWICE DAILY FOR ARTHRITIS, as needed gabapentin (NEURONTIN) 100 mg capsule Take 1 capsule by mouth daily at bedtime for 180 days. For leg cramps atenolol (TENORMIN) 25 mg tablet Take 1 tablet by mouth once daily. Per [facility] ERGOCALCIFEROL, VITAMIN D2, (VITAMIN D2 ORAL) Take 2,000 Units by mouth. simvastatin (ZOCOR) 80 mg tablet Take 1 tablet by mouth daily at bedtime. Per Dr. Barba Aspirin 81 mg ORAL Tab Take 81 mg by mouth. Take (2) tablets in the morning No current facility-administered medications on file prior to visit. Social History Social History Tobacco Use (more content not included)... [facility] 07-24-2024 Instructions César Merrill MD - 07/24/2024 8:38 AM EDT Please bring in copies of your power of attorney general for health care and living will. Please get back on the B12 1000 mcg 1.5 tabs a day. documented in this encounter [facility] 07-18-2024 Telephone encounter Note Noted. [facility] 07-18-2024 Miscellaneous Notes Noted. Love from [facility] pharmacy in [place] calling in for refills for pt. She states pt called in for refill on his Baclofen and Gabapentin. Per epic, last prescriptions for both of these were sent on 08/08/23 and were for 6 months total. Per Love, last time pt had them filled was in 10/2023 for 90 day supply. Discussed all of pt's meds with Love and it appears pt is not taking his Glimipiride or Metformin as he received 90 day supplies of those meds 155 days ago. Pt is taking his Losartan/HCTZ, Atenolol, Simvastatin correctly. Atenolol and Simvastatin prescribed by [facility]. Pt is set up for a physical on 08/12 with Katarzyna Munson. Pt is Orthodox and needs financially cleared for appt. Attempted to call pt and son Adelaida answered the phone and said pt is unavailable. Discussed with son about how pt is taking his medications and that perhaps we need to bring him in sooner for an appt to discuss med compliance. Son agreeable to this. documented in this encounter [facility] 07-18-2024 Telephone encounter Note Love from [facility] pharmacy in [place] calling in for refills for pt. She states pt called in for refill on his Baclofen and Gabapentin. Per epic, last prescriptions for both of these were sent on 08/08/23 and were for 6 months total. Per Love, last time pt had them filled was in 10/2023 for 90 day supply. Discussed all of pt's meds with Love and it appears pt is not taking his Glimipiride or Metformin as he received 90 day supplies of those meds 155 days ago. Pt is taking his Losartan/HCTZ, Atenolol, Simvastatin correctly. Atenolol and Simvastatin prescribed by [facility]. Pt is set up for a physical on 08/12 with Katarzyna Munson. Pt is Orthodox and needs financially cleared for appt. Attempted to call pt and son Adelaida answered the phone and said pt is unavailable. Discussed with son about how pt is taking his medications and that perhaps we need to bring him in sooner for an appt to discuss med compliance. Son agreeable to this. [facility] 07-10-2024 Evaluation note Diagnosis Onset Date Resolution Essential hypertension acute [facility] 2024 9:26am Atherosclerotic heart disease of augustine coronary artery without angina pectoris chronic July 10, 2024 9:26am Hyperlipidemia chronic June 9:26am PAOD (peripheral arterial occlusive disease) acute August 29, 2024 10:57am [facility] Work Phone: 1(678) 685-585903-13-2025 Evaluation note* Diagnosis Onset Date Resolution Status Admit Date Essential hypertension acute [facility] 2024 9:26am Atherosclerotic heart diseas e of augustine coronary artery without angina pectoris chronic July 10, 2024 9:26am Hyperlipidemia chronic June 9:26am PAOD (peripheral arterial occlusive disease) acute August 29, 2024 10:57am 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, bilateral chronic October 09, 2024 2:55pm [facility] Work Phone: 1(180) 422-442303-13-2025 Evaluation note* Diagnosis Onset Date Resolution Status Admit Date Essential hypertension acute [facility] 2024 9:26am Atherosclerotic heart diseas e of augustine coronary artery without angina pectoris chronic July 10, 2024 9:26am Hyperlipidemia chronic June 9:26am PAOD (peripheral arterial occlusive disease) acute August 29, 2024 10:57am 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 Author Type: LICENSED NURSE Type: Progress Notes Filed: 07/04/2024 08:36 Note Text: Scan on 07/04/2024 7:19 AM by Provider, External, PA-C: [facility] of Present illness Narrative* Demarcus Higginbotham LPN - 07/04/2024 8:24 AM EST Scan on 07/04/2024 7:19 AM by Provider, YURIDIA Valle: Consultation - Ophthalmology [facility] NoteHNO ID: [id number] Author: DEYSI CAIN APRN.[employer] Service: ? Author Type: Nurse Practitioner Type: Progress Notes Filed: 06/10/2024 13:45 Note Text: CC: Patient presents with: Chest Congestion: cough x 3 days HPI: Katharine Cano is a 79 year old male who presents to the office with complaint of head congestion, cough, nonproductive, and ear symptoms for a few days. Symptoms are staying the same. Associated symptoms includes facial pain/pressure and cough. Denies wheezing, dyspnea, fatigue, nausea, vomiting , and diarrhea. Treatments tried include nothing so far. with no relief of symptoms. Sick contacts: unknown. History of asthma, frequent episodes of bronchitis, chronic bronchitis, bronchiectasis or COPD: No Smoker: No Seasonal/environmental allergies: No The ROS is otherwise negative. The patient's pmh, medications, allergies, and past visits are reviewed. PHYSICAL EXAM: BP 142/72 Pulse 92 Temp 37.1 ?C (98.7 ?F) Resp 18 Wt 105.1 kg (231 lb 11.3 oz) SpO2 94% BMI 39.16 kg/m? General appearance: alert, cooperative, pleasant, in no acute distress Head: Normocephalic Eyes: EOM's intact, conjunctiva pink and moist, no icterus, sclera white, non-injected Ears: Right ear: External ear/canal- Normal, TM - clear with good landmarks. Left ear: External ear/canal- Normal, TM - clear with good landmarks Oropharynx:moist without lesions, No erythema, exudates or tonsillar hypertrophy. Heart: Negative. RRR without obvious murmur, gallop, or rubs. No ectopy. Lungs: clear to auscultation, without rales or wheeze, good air exchange PAST MEDICAL HISTORY Diagnosis Date Advance directive discussed with patient 11/15/2021 Discussed 10/2021 Benign prostatic hyperplasia with urinary frequency 12/11/2016 Coronary atherosclerosis 05/02/2007 COVID-19 virus infection 01/18/202112/2020 Diabetic eye exam (HCC) 01/11/2017 Last Done: 12/09/2018, No Retinopathy Ex-smoker 12/11/2016 Started at age 17 yo, Up to 7-10 pipes a day. Quite at age 53, [place] 11/2015 neg for AAA History of coronary artery stent placement 12/19/2012 Hypertension, essential 12/11/[address] 11/15/2021 DPA: Wilfredo (son) Mixed hyperlipidemia 11/07/2005 Nocturnal leg cramps 02/22/2018 KARLA (obstructive sleep apnea) 12/19/2012 Phimosis 12/11/2016 Type 2 diabetes mellitus without complication, without long-term current use of insulin (HCC) 08/14/2017 PAST SURGICAL HISTORY Procedure Laterality Date 2D ECHO (EXEP) 11/19/2018 EF 55%, stage 1 Diast Dysf, NO change from 04/2011 ARTHRP KNE CONDYLEANDPLATU MEDIALANDLAT COMPARTMENTS Right ARTHRP KNE CONDYLEANDPLATU MEDIALANDLAT COMPARTMENTS Left FECAL OCCULT BLOOD TEST 05/26/2019 negative PAST SURGICAL HISTORY OF 07/09/2017 right carpal tunnel repair PAST SURGICAL HISTORY OF 09/2017 C6, C7 block and plates PAST SURGICAL HISTORY OF 04/12/2023 lumbar surgery PAST SURGICAL HISTORY OF 03/2023 Spinal fusion L3-L4 STRESS TEST 09/27/2017 negative ALLERGIES Diovan [Valsartan], Crestor [Rosuvastatin Calcium], Metformin, and Zinc MEDICATIONS tamsulosin (FLOMAX) 0.4 mg Take 1 capsule by mouth daily at bedtime. Bringing good RX coupon. pioglitazone (ACTOS) 45 mg tablet Take 1 tablet by mouth once daily. metFORMIN ER (GLUCOPHAGE XR) 500 mg 24 hr tablet Take 2 in the morning with breakfast and two in the evening. losartan-hydroCHLOROthiazide (HYZAAR) 50-12.5 mg per tablet Take 1 tablet by mouth once daily. glimepiride (AMARYL) 4 mg tablet Take 1 tablet by mouth two times a day with meals. Cyanocobalamin 1,000 mcg TbER Take 1.5 tablets by mouth once daily. baclofen 20 mg tablet Take 1 tablet by mouth daily at bedtime. nitroglycerin sublingual (NITROQUICK) 0.4 mg SL tablet Dissolve 1 tablet under the tongue as directed. EVERY 5 MIN X3 Flurbiprofen 100 mg tablet TAKE ONE TABLET BY MOUTH TWICE DAILY FOR ARTHRITIS, as needed atenolol (TENORMIN) 25 mg tablet Take 1 tablet by mouth once daily. Per [facility] ERGOCALCIFEROL, VITAMIN D2, (VITAMIN D2 ORAL) Take 2,000 Units by mouth. simvastatin (ZOCOR) 80 mg tablet Take 1 tablet by mouth daily at bedtime. Per Dr. Barba Aspirin 81 mg ORAL Tab Take 81 mg by mouth. Take (2) tablets in the morning doxycycline (VIBRA-TABS) 100 mg tablet Take 1 tablet by mouth two times a day for 7 days. gabapentin (NEURONTIN) 100 mg capsule Take 1 capsule by mouth daily at bedtime for 180 days. For leg cramps FAMILY HISTORY Problem Relation Age of Onset Coronary Artery Disease Father after CABG at 81 Cancer Sister renal Kidney Disease Brother other (Lavon's) Brother Cancer Brother Coronary Artery Disease Paternal Uncle 70's COPD No Family History Cystic Fibrosis No Family History Social History Tobacco Use Smoking status: Former Current packs/day: 0.00 Types: Cigarettes Start date: 1963 Quit date: 07/29/1997 Years since quitting: (more content not included)...[facility] 06-10-2024 History of Present illness Narrative* Deysi Cain APRN.[facility] - 06/10/2024 1:43 PM EST CC: Patient presents with: Chest Congestion: cough x 3 days HPI: Katharine Cano is a 79 year old male who presents to the office with complaint of head congestion, cough, nonproductive, and ear symptoms for a few days. Symptoms are staying the same. Associated symptoms includes facial pain/pressure and cough. Denies wheezing, dyspnea, fatigue, nausea, vomiting , and diarrhea. Treatments tried include nothing so far. with no relief of symptoms. Sick contacts: unknown. History of asthma, frequent episodes of bronchitis, chronic bronchitis, bronchiectasis or COPD: No Smoker: No Seasonal/environmental allergies: No The ROS is otherwise negative. The patient's pmh, medications, allergies, and past visits are reviewed. PHYSICAL EXAM: BP 142/72 Pulse 92 Temp 37.1 C (98.7 F) Resp 18 Wt 105.1 kg (231 lb 11.3 oz) SpO2 94% BMI 39.16 kg/m General appearance: alert, cooperative, pleasant, in no acute distress Head: Normocephalic Eyes: EOM's intact, conjunctiva pink and moist, no icterus, sclera white, non-injected Ears: Right ear: External ear/canal- Normal, TM - clear with good landmarks. Left ear: External ear/canal- Normal, TM - clear with good landmarks Oropharynx:moist without lesions, No erythema, exudates or tonsillar hypertrophy. Heart: Negative. RRR without obvious murmur, gallop, or rubs. No ectopy. Lungs: clear to auscultation, without rales or wheeze, good air exchange PAST MEDICAL HISTORY Diagnosis Date Advance directive discussed with patient 11/15/2021 Discussed 10/2021 Benign prostatic hyperplasia with urinary frequency 12/11/2016 Coronary atherosclerosis 05/02/2007 COVID-19 virus infection 01/18/202112/2020 Diabetic eye exam (HCC) 01/11/2017 Last Done: 12/09/2018, No Retinopathy Ex-smoker 12/11/2016 Started at age 17 yo, Up to 7-10 pipes a day. Quite at age 53, [place] 11/2015 neg for AAA History of coronary artery stent placement 12/19/2012 Hypertension, essential 12/11/[address] 11/15/2021 DPA: Wilfreod (son) Mixed hyperlipidemia 11/07/2005 Nocturnal leg cramps 02/22/2018 KARLA (obstructive sleep apnea) 12/19/2012 Phimosis 12/11/2016 Type 2 diabetes mellitus without complication, without long-term current use of insulin (HCC) 08/14/2017 PAST SURGICAL HISTORY Procedure Laterality Date 2D ECHO (EXEP) 11/19/2018 EF 55%, stage 1 Diast Dysf, NO change from 04/2011 ARTHRP KNE CONDYLE&PLATU MEDIAL&LAT COMPARTMENTS Right ARTHRP KNE CONDYLE&PLATU MEDIAL&LAT COMPARTMENTS Left FECAL OCCULT BLOOD TEST 05/26/2019 negative PAST SURGICAL HISTORY OF 07/09/2017 right carpal tunnel repair PAST SURGICAL HISTORY OF 09/2017 C6, C7 block and plates PAST SURGICAL HISTORY OF 04/12/2023 lumbar surgery PAST SURGICAL HISTORY OF 03/2023 Spinal fusion L3-L4 STRESS TEST 09/27/2017 negative ALLERGIES Diovan [Valsartan], Crestor [Rosuvastatin Calcium], Metformin, and Zinc MEDICATIONS tamsulosin (FLOMAX) 0.4 mg Take 1 capsule by mouth daily at bedtime. Bringing good RX coupon. pioglitazone (ACTOS) 45 mg tablet Take 1 tablet by mouth once daily. metFORMIN ER (GLUCOPHAGE XR) 500 mg 24 hr tablet Take 2 in the morning with breakfast and two in the evening. losartan-hydroCHLOROthiazide (HYZAAR) 50-12.5 mg per tablet Take 1 tablet by mouth once daily. glimepiride (AMARYL) 4 mg tablet Take 1 tablet by mouth two times a day with meals. Cyanocobalamin 1,000 mcg TbER Take 1.5 tablets by mouth once daily. baclofen 20 mg tablet Take 1 tablet by mouth daily at bedtime. nitroglycerin sublingual (NITROQUICK) 0.4 mg SL tablet Dissolve 1 tablet under the tongue as directed. EVERY 5 MIN X3 Flurbiprofen 100 mg tablet TAKE ONE TABLET BY MOUTH TWICE DAILY FOR ARTHRITIS, as needed atenolol (TENORMIN) 25 mg tablet Take 1 tablet by mouth once daily. Per [facility] ERGOCALCIFEROL, VITAMIN D2, (VITAMIN D2 ORAL) Take 2,000 Units by mouth. simvastatin (ZOCOR) 80 mg tablet Take 1 tablet by mouth daily at bedtime. Per Dr. Barba Aspirin 81 mg ORAL Tab Take 81 mg by mouth. Take (2) tablets in the morning doxycycline (VIBRA-TABS) 100 mg tablet Take 1 tablet by mouth two times a day for 7 days. gabapentin (NEURONTIN) 100 mg capsule Take 1 capsule by mouth daily at bedtime for 180 days. For leg cramps FAMILY HISTORY Problem Relation Age of Onset Coronary Artery Disease Father after CABG at 81 Cancer Sister renal Kidney Disease Brother other (Lavon's) Brother Cancer Brother Coronary Artery Disease Paternal Uncle 70's COPD No Family History Cystic Fibrosis No Family History Social History Tobacco Use Smoking status: Former Current packs/day: 0.00 Types: Cigarettes Start date: 1963 Quit date: 07/29/1997 Years since quittin.8 Smokeless tobacco: Former Vaping Use Vaping status: Never Used Substance Use Topics Alcohol use: No Drug use: No ASSESSMENT/PLAN: 1. URI, acute - ICD9: 465.9, ICD10: J06.9 - DOXYCYCLINE HYCLATE 100 MG TABLET Patient will not start antibiotics until Sunday if symptoms persist. Prescription instructions reviewed with patient as applicable. Potential red flag symptoms discussed with the patient. Reviewed appropriate action plan to take if red flag symptoms occur. Patient agreeable to treatment plan. Deysi Cain APRN.[employer]DER [facility] Telephone encounter Note * Telephone Encounter - Demarcus Higginbotham LPN - 02/15/2024 11:46 AM EDT Left message of pt and pt's results on pt's vm. Demarcus Higginbotham LPN [facility]10-18-[facility]24 Miscellaneous Notes* Telephone Encounter - Demarcus Higginbotham LPN - 02/15/2024 11:46 AM EDT Left message of pt and pt's results on pt's vm. Demarcus Higginbotham LPN * Telephone Encounter - César Merrill MD - 02/15/2024 10:03 AM EDT Let Katharine know that his recent labs along with his 's recent labs were ok. [facility] Telephone encounter Note * Telephone Encounter - César Merrill MD - 02/15/2024 10:03 AM EDT Let Katharine know that his recent labs along with his 's recent labs were ok. [facility] History of Present illness Narrative* César Merrill MD - 02/14/2024 9:20 AM EDT Chief Complaint Patient presents with: 6 Month Exam HPI Katharine Cano is a 78 year old male who presents here today for 6 month follow up. Patient with hx of CAD, HTN, hyperlipidemia, KARLA, DM2, BPH, and those as below. Patient has been doing ok. Having pain in the left hip and seeing ortho. No new issues Component Ref Range & Units 6 mo ago (08/08/23) 1 yr ago (05/31/22) 2 yr ago (11/15/21) 2 yr ago (05/12/21) 3 yr ago (10/27/20) 5 yr ago (08/15/18) 5 yr ago (02/18/18) Hemoglobin A1C 4.3 - 5.6 % 6.4 High 6.3 High CM 7.0 High CM 9.7 High CM 8.7 High CM 6.8 High CM 7.0 High Past medical history, appointments, medications, allergies reviewed. Previous Medical History PAST MEDICAL HISTORY Diagnosis Date Advance directive discussed with patient 11/15/2021 Discussed 10/2021 Benign prostatic hyperplasia with urinary frequency 12/11/2016 Coronary atherosclerosis 05/02/2007 COVID-19 virus infection 01/18/202112/2020 Diabetic eye exam (HCC) 01/11/2017 Last Done: 12/09/2018, No Retinopathy Ex-smoker 12/11/2016 Started at age 17 yo, Up to 7-10 pipes a day. Quite at age 53, [place] 11/2015 neg for AAA History of coronary artery stent placement 12/19/2012 Hypertension, essential 12/11/[address] 11/15/2021 DPA: Wilfredo (son) Mixed hyperlipidemia 11/07/2005 Nocturnal leg cramps 02/22/2018 KARLA (obstructive sleep apnea) 12/19/2012 Phimosis 12/11/2016 Type 2 diabetes mellitus without complication, without long-term current use of insulin (HCC) 08/14/2017 Previous Surgical History PAST SURGICAL HISTORY Procedure Laterality Date 2D ECHO (EXEP) 11/19/2018 EF 55%, stage 1 Diast Dysf, NO change from 04/2011 ARTHRP KNE CONDYLE&PLATU MEDIAL&LAT COMPARTMENTS Right ARTHRP KNE CONDYLE&PLATU MEDIAL&LAT COMPARTMENTS Left FECAL OCCULT BLOOD TEST 05/26/2019 negative PAST SURGICAL HISTORY OF 07/09/2017 right carpal tunnel repair PAST SURGICAL HISTORY OF 09/2017 C6, C7 block and plates PAST SURGICAL HISTORY OF 04/12/2023 lumbar surgery PAST SURGICAL HISTORY OF 03/2023 Spinal fusion L3-L4 STRESS TEST 09/27/2017 negative Family History FAMILY HISTORY Problem Relation Age of Onset Coronary Artery Disease Father after CABG at 81 Cancer Sister renal Kidney Disease Brother other (Lavon's) Brother Cancer Brother Coronary Artery Disease Paternal Uncle 70's COPD No Family History Cystic Fibrosis No Family History Patient Allergies ALLERGIES Allergen Reactions Diovan [Valsartan] Cough Crestor [Rosuvastat* Other: See Comments rash and sore muscles Metformin Diarrhea Zinc Intolerance chest pain Current Medications Current Outpatient Medications on File Prior to Visit Medication Sig Cyanocobalamin 1,000 mcg TbER Take 1.5 tablets by mouth once daily. baclofen 20 mg tablet Take 1 tablet by mouth daily at bedtime. metFORMIN ER (GLUCOPHAGE XR) 500 mg 24 hr tablet Take 2 in the morning with breakfast and two in the evening. tamsulosin (FLOMAX) 0.4 mg Take 1 capsule by mouth daily at bedtime. Bringing good RX coupon. pioglitazone (ACTOS) 45 mg tablet Take 1 tablet by mouth once daily. losartan-hydroCHLOROthiazide (HYZAAR) 50-12.5 mg per tablet Take 1 tablet by mouth once daily. glimepiride (AMARYL) 4 mg tablet Take 1 tablet by mouth two times a day with meals. nitroglycerin sublingual (NITROQUICK) 0.4 mg SL tablet Dissolve 1 tablet under the tongue as directed. EVERY 5 MIN X3 Flurbiprofen 100 mg tablet TAKE ONE TABLET BY MOUTH TWICE DAILY FOR ARTHRITIS, as needed gabapentin (NEURONTIN) 100 mg capsule Take 1 capsule by mouth daily at bedtime for 180 days. For leg cramps atenolol (TENORMIN) 25 mg tablet Take 1 tablet by mouth once daily. Per [facility] ERGOCALCIFEROL, VITAMIN D2, (VITAMIN D2 ORAL) Take 2,000 Units by mouth. simvastatin (ZOCOR) 80 mg tablet Take 1 tablet by mouth daily at bedtime. Per Dr. Barba Aspirin 81 mg ORAL Tab Take 81 mg by mouth. Take (2) tablets in the morning No current facility-administered medications on file prior to visit. Social History Social History Tobacco Use Smoking status: Former Current packs/day: 0.00 Types: Cigarettes Start date: 1963 Quit date: 07/29/1997 Years since quittin.5 Smokeless tobacco: Former Vaping Use Vaping status: Never Used Substance Use Topics Alcohol use: No Drug use: No Review of Symptoms REVIEW OF SYSTEMS GENERAL: No weight loss, malaise or fevers NECK: Negative for lumps, goiter, pain and significant neck swelling RESPIRATORY: Negative for cough, hemoptysis, wheezing, COPD, dyspnea or shortness of breath CARDIOVASCULAR: Negative for chest pain, increased leg swelling, hypertension, CHF or palpitations GI: No nausea, vomiting, or diarrhea and No heartburn or reflux symptoms : No history of dysuria, blood ENDOCRINE: Negative for symptoms of low BS's NEURO: No history of headaches, syncope, paralysis, seizures or tremors EXAM: BP 143/75 Pulse (!) 59 Ht 163.8 cm (5' 4.5) Wt 100.2 kg (220 lb 14.4 oz) BMI 37.33 kg/m BP 132/58 Pulse (!) 59 Ht 163.8 cm (5' 4.5) Wt 100.2 kg (220 lb 14.4 oz) BMI 37.33 kg/m Last 5 Encounter Wt Readings: Date: Wt: 02/14/2024 100.2 kg (220 lb 14.4 oz) 08/08/2023 101.2 kg (223 lb) 04/19/2023 101.2 kg (223 lb) 03/26/2023 103.4 kg (228 lb) 02/05/2023 100.2 kg (221 lb) General Appearance: Well appearing, alert, in no acute distress, well-hydrated, well nourished.. Eyes: Anicteric sclera. Pupils are equally round and reactive to light. Extraocular movements are intact. . Neck: Supple, no adenopathy; thyroid symmetric, normal size, no bruits. Lungs: Lungs clear to auscultation. No wheezing, rhonchi, rales.. Heart: RRR without murmur, gallop, or rubs. No ectopy. Abdomen: Normal abdominal exam, Abdomen soft, non-tender. Bowel sounds normal. No masses, organomegaly. Extremities: No deformities, edema, skin discoloration, Good capillary refill. . Musculoskeletal: Muscular strength intact, No joint swelling, deformity, or tenderness. Peripheral Pulses: Normal. Neurologic: Gait normal. Sensation to light touch and crainal nerves 2-12 intact.. Health Maintenance List Influenza Vaccine(1) due on 12/30/2023 Covid-19 Vaccine( season) Never done HbA1C due on 02/07/2024 RSV Vaccine(1 - 1-dose 75+ series) due on 08/07/2024 Shingrix Vaccine(2 of 2) due on 08/07/2024 Dilated Retinal Exam due on 04/10/2024 Urine Albumin:Creatinine Ratio due on 08/07/2024 LDL Cholesterol due on 08/07/2024 Diabetic Foot Exam due on 08/07/2024 Annual PCP Team Chronic Disease Visit due on 08/07/2024 Depression Screening due on 08/07/2024 Anxiety Screening due on 08/07/2024 BP Controlled (<130/80) due on 08/07/2024 DTaP,Tdap,Td Vaccine(3 - Td or Tdap) due on 10/27/2030 Advance Directive Discussion Completed Pneumococcal Vaccine: 65+ Completed Colorectal Cancer Screening Discontinued Hepatitis C Screening Discontinued Data reviewed A/P ASSESSMENT/PLAN: 1. Type 2 diabetes mellitus without complication, without long-term current use of insulin (HCC) - ICD9: 250.00, ICD10: E11.9 (primary diagnosis) - Control undetermined, due for labs - Continue current medications - Counseled on healthy diet and regular exercise - Discussed need for and benefit of weight loss. BMI 37.33 kg/(m^2) - HEMOGLOBIN A1C 2. Diabetic eye exam (HCC) - ICD9: V72.0, 250.00, ICD10: Z01.00, E11.9 - up to date 3. Hypertension, essential - ICD9: 401.9, ICD10: I10 - Controlled - Continue current medications - Recommend home blood pressure monitoring, to bring results to next visit - Encouraged sodium restriction, DASH or Mediterranean diet - Recommend regular aerobic exercise - Discussed need for and benefit of weight loss. BMI 37.33 kg/(m^2) 4. Mixed hyperlipidemia - ICD9: 272.2, ICD10: E78.2 - Controlled - Continue current medications - Counseled on healthy diet and regular exercise 5. 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 - ICD9: 414.01, ICD10: I25.10 - clinically stable. No changes and managed per cardio 6. KARLA (obstructive sleep apnea) - ICD9: 327.23, ICD10: G47.33 - wearing CPAP nightly with benefit. 7. Vitamin B12 deficiency - ICD9: 266.2, ICD10: E53.8 Check - VITAMIN B12 8. Need for vaccination - ICD9: V05.9, ICD10: Z23 - ZOSTER VACCINE, RECOMBINANT (SHINGRIX): #2 given 9. Encounter for immunization - ICD9: V03.89, ICD10: Z23 - INFLUENZA VACCINE, PRSV FREE, AGE 65+ YR, HIGH DOSE, TRIVALENT (FLUZONE HIGH- DOSE): given Requested Prescriptions Signed Prescriptions Disp Refills tamsulosin (FLOMAX) 0.4 mg 90 capsule 1 Sig: Take 1 capsule by mouth daily at bedtime. Bringing good RX coupon. pioglitazone (ACTOS) 45 mg tablet 90 tablet 1 Sig: Take 1 tablet by mouth once daily. metFORMIN ER (GLUCOPHAGE XR) 500 mg 24 hr tablet 120 tablet 5 Sig: Take 2 in the morning with breakfast and two in the evening. losartan-hydroCHLOROthiazide (HYZAAR) 50-12.5 mg per tablet 90 tablet 1 Sig: Take 1 tablet by mouth once daily. glimepiride (AMARYL) 4 mg tablet 180 tablet 1 Sig: Take 1 tablet by mouth two times a day with meals. F/u 6 months extensive. César Merrill MD [facility] NoteHNO ID: [id number] Author: CÉSAR MERRILL MD Service: ? Author Type: Physician Type: Progress Notes Filed: 02/14/2024 16:20 Note Text: Chief Complaint Patient presents with: 6 Month Exam HPI Katharine Cano is a 78 year old male who presents here today for 6 month follow up. Patient with hx of CAD, HTN, hyperlipidemia, KARLA, DM2, BPH, and those as below. Patient has been doing ok. Having pain in the left hip and seeing ortho. No new issues Component Ref Range AND Units 6 mo ago (08/08/23) 1 yr ago (05/31/22) 2 yr ago (11/15/21) 2 yr ago (05/12/21) 3 yr ago (10/27/20) 5 yr ago (08/15/18) 5 yr ago (02/18/18) Hemoglobin A1C 4.3 - 5.6 % 6.4 High 6.3 High CM 7.0 High CM 9.7 High CM 8.7 High CM 6.8 High CM 7.0 High Past medical history, appointments, medications, allergies reviewed. Previous Medical History PAST MEDICAL HISTORY Diagnosis Date Advance directive discussed with patient 11/15/2021 Discussed 10/2021 Benign prostatic hyperplasia with urinary frequency 12/11/2016 Coronary atherosclerosis 05/02/2007 COVID-19 virus infection 01/18/202112/2020 Diabetic eye exam (HCC) 01/11/2017 Last Done: 12/09/2018, No Retinopathy Ex-smoker 12/11/2016 Started at age 17 yo, Up to 7-10 pipes a day. Quite at age 53, US 11/2015 neg for AAA History of coronary artery stent placement 12/19/2012 Hypertension, essential 12/11/[address] 11/15/2021 DPA: Wilfredo (son) Mixed hyperlipidemia 11/07/2005 Nocturnal leg cramps 02/22/2018 KARLA (obstructive sleep apnea) 12/19/2012 Phimosis 12/11/2016 Type 2 diabetes mellitus without complication, without long-term current use of insulin (HCC) 08/14/2017 Previous Surgical History PAST SURGICAL HISTORY Procedure Laterality Date 2D ECHO (EXEP) 11/19/2018 EF 55%, stage 1 Diast Dysf, NO change from 04/2011 ARTHRP KNE CONDYLEANDPLATU MEDIALANDLAT COMPARTMENTS Right ARTHRP KNE CONDYLEANDPLATU MEDIALANDLAT COMPARTMENTS Left FECAL OCCULT BLOOD TEST 05/26/2019 negative PAST SURGICAL HISTORY OF 07/09/2017 right carpal tunnel repair PAST SURGICAL HISTORY OF 09/2017 C6, C7 block and plates PAST SURGICAL HISTORY OF 04/12/2023 lumbar surgery PAST SURGICAL HISTORY OF 03/2023 Spinal fusion L3-L4 STRESS TEST 09/27/2017 negative Family History FAMILY HISTORY Problem Relation Age of Onset Coronary Artery Disease Father after CABG at 81 Cancer Sister renal Kidney Disease Brother other (Lavon's) Brother Cancer Brother Coronary Artery Disease Paternal Uncle 70's COPD No Family History Cystic Fibrosis No Family History Patient Allergies ALLERGIES Allergen Reactions Diovan [Valsartan] Cough Crestor [Rosuvastat* Other: See Comments rash and sore muscles Metformin Diarrhea Zinc Intolerance chest pain Current Medications Current Outpatient Medications on File Prior to Visit Medication Sig Cyanocobalamin 1,000 mcg TbER Take 1.5 tablets by mouth once daily. baclofen 20 mg tablet Take 1 tablet by mouth daily at bedtime. metFORMIN ER (GLUCOPHAGE XR) 500 mg 24 hr tablet Take 2 in the morning with breakfast and two in the evening. tamsulosin (FLOMAX) 0.4 mg Take 1 capsule by mouth daily at bedtime. Bringing good RX coupon. pioglitazone (ACTOS) 45 mg tablet Take 1 tablet by mouth once daily. losartan-hydroCHLOROthiazide (HYZAAR) 50-12.5 mg per tablet Take 1 tablet by mouth once daily. glimepiride (AMARYL) 4 mg tablet Take 1 tablet by mouth two times a day with meals. nitroglycerin sublingual (NITROQUICK) 0.4 mg SL tablet Dissolve 1 tablet under the tongue as directed. EVERY 5 MIN X3 Flurbiprofen 100 mg tablet TAKE ONE TABLET BY MOUTH TWICE DAILY FOR ARTHRITIS, as needed gabapentin (NEURONTIN) 100 mg capsule Take 1 capsule by mouth daily at bedtime for 180 days. For leg cramps atenolol (TENORMIN) 25 mg tablet Take 1 tablet by mouth once daily. Per [facility] ERGOCALCIFEROL, VITAMIN D2, (VITAMIN D2 ORAL) Take 2,000 Units by mouth. simvastatin (ZOCOR) 80 mg tablet Take 1 tablet by mouth daily at bedtime. Per Dr. Barba Aspirin 81 mg ORAL Tab Take 81 mg by mouth. Take (2) tablets in the morning No current facility-administered medications on file prior to visit. Social History Social History Tobacco Use Smoking status: Former Current packs/day: 0.00 Types: Cigarettes Start date: 1963 Quit date: 07/29/1997 Years since quittin.5 Smokeless tobacco: Former Vaping Use Vaping status: Never Used Substance Use Topics Alcohol use: No Drug use: No Review of Symptoms REVIEW OF SYSTEMS GENERAL: No weight loss, malaise or fevers NECK: Negative for lumps, goiter, pain and significant neck swelling RESPIRATORY: Negative for cough, hemoptysis, wheezing, COPD, dyspnea or shortness of breath CARDIOVASCULAR: Negative for chest pain, increased leg swelling, hypertension, CHF or palpitations GI: No nausea, vomiting, or diarrhea and N (more content not included)... [facility]05-17-2024 Telephone encounter Note* Telephone Encounter - Zohreh Hughes RN - 09/14/2023 2:48 PM EDT Teto Son returns the call and is notified of Dr. Merrill's instructions. He verbalizes understanding. [facility] Miscellaneous Notes* Telephone Encounter - Zohreh Hughes RN - 09/14/2023 2:48 PM EDT Teto Son returns the call and is notified of Dr. Merrill's instructions. He verbalizes understanding. * Telephone Encounter - Natalie Hebert LPN - 09/14/2023 1:16 PM EDT Left message to contact office for results. * Telephone Encounter - César Merrill MD - 09/14/2023 12:51 PM EDT Let patient (or since he has dementia) know his hemoglobin was back into a normal range. His B12 is improved but not wear it needs to be. He needs to increase his Vit B12 to 1500 mcg once a day. [facility] Telephone encounter Note * Telephone Encounter - Natalie Hebert LPN - 09/14/2023 1:16 PM EDT Left message to contact office for results. [facility] Tele[facility] encounter Note* Telephone Encounter - César Merrill MD - 09/14/2023 12:51 PM EDT Let patient (or since he has dementia) know his hemoglobin was back into a normal range. His B12 is improved but not wear it needs to be. He needs to increase his Vit B12 to 1500 mcg once a day. [facility] Miscellaneous Notes* Telephone Encounter - Jeannette Oliveira RN - 08/16/2023 10:37 AM EDT Patient's son Atlee calls and notified of results and provider instructions. Atlee voices understanding. Jeannette Olievira RN * Telephone Encounter - Valerie Johnson LPN - 08/16/2023 10:11 AM EDT Message left for patient's son Atlee to return call to review patient's results and provider's recommendations. * Telephone Encounter - César Merrill MD - 08/16/2023 8:34 AM EDT Let patient know his iron studies and folate were ok. His B12 is pretty low and most likely the source of his anemia. I want him to start taking an OTC form of B12 at 1000 mcg once a day. I placed an order to get his B12 and CBC repeated in a month. documented in [facility]04-[facility] Miscellaneous Notes* Telephone Encounter - Jeannette Oliveira RN - 08/13/2023 11:59 AM EDT Patient's son call back and notified of results and provider instructions. Son Voices understanding. Jeannette Oliveira RN * Telephone Encounter - Diamond Cain MA - 08/13/2023 9:24 AM EDT Left message for patient to contact office. Please verify the best number to reach patient's. Diamond Cain MA * Telephone Encounter - Natalie Hebert LPN - 08/09/2023 2:11 PM EDT Left message for patient to contact office. * Telephone Encounter - César Merrill MD - 08/09/2023 1:41 PM EDT Let patient know all his recent labs were ok except his blood count shows a mild anemia> I placed an order for additional labs to further evaluate. [facility] Instructions* Patient Instructions* César Merrill MD - 08/08/2023 9:43 AM EDT Consider getting the shingrix vaccine for prevention of shingles, and RSV vaccine from a local pharmacy or the health dept Please bring in copies of your power of attorney general for health care and living will. documented in [facility]04[facility] History of Present illness Narrative* César Merrill MD - 08/08/2023 9:40 AM EDT Images from the original note were not included. Chief Complaint Patient presents with: Physical HPI Katharine Cano is a 78 year old male who presents here today for medicare wellness Patient with hx of CAD, HTN, hyperlipidemia, KARLA, DM2, BPH, and those as below. Any recent ER/hospital visits? None Patient sees Dr. Ragland for pulmonary last visit 03/2023 Patient sees [facility] 03/2023 Patient sees Ophthalmology last visit 03/2023 Past medical history, appointments, medications, allergies reviewed. Previous Medical History PAST MEDICAL HISTORY Diagnosis Date Advance directive discussed with patient 11/15/2021 Discussed 10/2021 Benign prostatic hyperplasia without lower urinary tract symptoms 12/11/2016 Coronary atherosclerosis 05/02/2007 COVID-19 virus infection 01/18/202112/2020 Diabetes mellitus (HCC) Diabetic eye exam (HCC) 01/11/2017 Last Done: 12/09/2018, No Retinopathy Ex-smoker 12/11/2016 Started at age 17 yo, Up to 7-10 pipes a day. Quite at age 53, US 11/2015 neg for AAA History of coronary artery stent placement 12/19/2012 Hypertension, essential 12/11/[address] 11/15/2021 DPA: Wilfredo (son) Mixed hyperlipidemia 11/07/2005 Nocturnal leg cramps 02/22/2018 KARLA (obstructive sleep apnea) 12/19/2012 Phimosis 12/11/2016 Previous Surgical History PAST SURGICAL HISTORY Procedure Laterality Date 2D ECHO (EXEP) 11/19/2018 EF 55%, stage 1 Diast Dysf, NO change from 04/2011 ARTHRP KNE CONDYLE&PLATU MEDIAL&LAT COMPARTMENTS Right ARTHRP KNE CONDYLE&PLATU MEDIAL&LAT COMPARTMENTS Left FECAL OCCULT BLOOD TEST 05/26/2019 negative PAST SURGICAL HISTORY OF 07/09/2017 right carpal tunnel repair PAST SURGICAL HISTORY OF 09/2017 C6, C7 block and plates PAST SURGICAL HISTORY OF 04/12/2023 lumbar surgery PAST SURGICAL HISTORY OF 03/2023 Spinal fusion L3-L4 STRESS TEST 09/27/2017 negative Family History FAMILY HISTORY Problem Relation Age of Onset Coronary Artery Disease Father after CABG at 81 Cancer Sister renal Kidney Disease Brother other (Lavon's) Brother Cancer Brother Coronary Artery Disease Paternal Uncle 70's COPD No Family History Cystic Fibrosis No Family History Patient Allergies ALLERGIES Allergen Reactions Diovan [Valsartan] Cough Crestor [Rosuvastat* Other: See Comments rash and sore muscles Metformin Diarrhea Zinc Intolerance chest pain Current Medications Current Outpatient Medications on File Prior to Visit Medication Sig HYDROcodone-acetaminophen (NORCO) 5-325 mg per tablet Take 1 tablet by mouth every 6 hours. for 7 days baclofen 20 mg tablet Take 1 tablet by mouth daily at bedtime. gabapentin (NEURONTIN) 100 mg capsule Take 1 capsule by mouth daily at bedtime for 180 days. For leg cramps metFORMIN ER (GLUCOPHAGE XR) 500 mg 24 hr tablet Take 2 in the morning with breakfast and two in the evening. tamsulosin (FLOMAX) 0.4 mg Take 1 capsule by mouth daily at bedtime. Bringing good RX coupon. pioglitazone (ACTOS) 45 mg tablet Take 1 tablet by mouth once daily. losartan-hydroCHLOROthiazide (HYZAAR) 50-12.5 mg per tablet Take 1 tablet by mouth once daily. glimepiride (AMARYL) 4 mg tablet Take 1 tablet by mouth two times a day with meals. Flurbiprofen 100 mg tablet TAKE ONE TABLET BY MOUTH TWICE DAILY FOR ARTHRITIS nitroglycerin sublingual (NITROQUICK) 0.4 mg SL tablet Dissolve 1 tablet under the tongue as directed. EVERY 5 MIN X3 atenolol (TENORMIN) 25 mg tablet Take 1 tablet by mouth once daily. Per [facility] ERGOCALCIFEROL, VITAMIN D2, (VITAMIN D2 ORAL) Take 2,000 Units by mouth. simvastatin (ZOCOR) 80 mg tablet Take 1 tablet by mouth daily at bedtime. Per Dr. Barba Aspirin 81 mg ORAL Tab 2 tablets daily No current facility-administered medications on file prior to visit. Social History Social History Tobacco Use Smoking status: Former Years: 35 Types: Cigarettes Start date: 1963 Quit date: 07/29/1997 Years since quittin.0 Smokeless tobacco: Former Vaping Use Vaping Use: Never used Substance Use Topics Alcohol use: No Drug use: No Review of Symptoms REVIEW OF SYSTEMS GENERAL: No weight loss, malaise or fevers HEENT: Negative for frequent or significant headaches, No changes in hearing or vision, no nose bleeds or other nasal problems NECK: Negative for lumps, goiter, pain and significant neck swelling RESPIRATORY: Negative for cough, hemoptysis, wheezing, COPD, dyspnea or shortness of breath CARDIOVASCULAR: Negative for chest pain, increased leg swelling, hypertension, CHF or palpitations GI: No nausea, vomiting, or diarrhea, No heartburn or reflux symptoms, and no blood : No history of dysuria, frequency or blood MUSCULOSKELETAL: Negative for joint pain or swelling, back pain or muscle pain SKIN: Negative for lesions, rash, and itching PSYCH: Negative for sleep disturbance, mood disorder and recent psychosocial stressors HEMATOLOGY/LYMPHOLOGY: Negative for prolonged bleeding, bruising easily or swollen nodes ENDOCRINE: Negative for cold or heat intolerance,symptoms of low BS's NEURO: No history of headaches, syncope, paralysis, seizures or tremors EXAM: BP 118/60 (BP Site: Right Arm, BP Position: Sitting, BP Cuff Size: Large Adult) Pulse 76 Resp 16 Ht 163.8 cm (5' 4.5) Wt 101.2 kg (223 lb) BMI 37.69 kg/m Last 5 Encounter Wt Readings: Date: Wt: 08/08/2023 101.2 kg (223 lb) 04/19/2023 101.2 kg (223 lb) 03/26/2023 103.4 kg (228 lb) 02/05/2023 100.2 kg (221 lb) 05/31/2022 100.7 kg (222 lb) General Appearance: Well appearing, alert, in no acute distress, well-hydrated, well nourished. andObese. Skin: Skin color, texture, turgor normal, no suspicious rashes or lesions. Head: Normocephalic, no masses, lesions, tenderness or abnormalities. Eyes: Anicteric sclera. Pupils are equally round and reactive to light. Extraocular movements are intact. . Ears: External ears, TM's normal, canals clear. Nose/Sinuses: Nares normal, septum midline, mucosa normal, no drainage or sinus tenderness. Oropharynx: Lips, mucosa, and tongue normal, teeth and gums normal, oropharynx normal. Neck: Supple, no adenopathy; thyroid symmetric, normal size, no bruits. Lungs: Lungs clear to auscultation. No wheezing, rhonchi, rales.. Heart: RRR without murmur, gallop, or rubs. No ectopy. Abdomen: Normal abdominal exam, Abdomen soft, non-tender. Bowel sounds normal. No masses, organomegaly. Extremities: No deformities, skin discoloration, clubbing or cyanosis. Good capillary refill. Has bilateral 1+ pitting edema. Musculoskeletal: Muscular strength intact, No joint swelling, deformity, or tenderness. Peripheral Pulses: Normal. Neurologic: Gait normal. Reflexes normal and symmetric. Sensation to light touch and crainal nerves2-12 intact.. Genitalia: Normal, Penis normal. No urethral discharge. Scrotum normal to palpation. No hernia.. Rectal: Normal exam. Prostate enlarged with smooth firm capsule Diabetic Foot Exam: Feet: Shoes and socks removed, no deformities, ulcers, calluses, normal distal pulses, sensitive to10 gm microfilament, and vibratory exam within normal limits Skin: warm, dry, no callouses or ulcer, and normal hair growth Vascular Pulses: Normal SEMMES-NIHARIKA MONOFILAMENT TESTING Left Foot Right Foot Dorsal Surface Intact Dorsal Surface Intact Plantar Surface Intact Plantar Surface Intact Health Maintenance List RSV Vaccine(1 - 1-dose 60+ series) Never done Shingrix Vaccine(2 of 2) due on 12/22/2020 Fecal Occult Blood due on 06/05/2022 BP Controlled (<130/80) due on 11/15/2022 HbA1C due on 11/28/2022 Advance Directive Discussion due on 04/30/2023 Behavioral Health Screening Never done Urine Albumin:Creatinine Ratio due on 05/31/2023 LDL Cholesterol due on 05/31/2023 Diabetic Foot Exam due on 05/31/2023 Covid-19 Vaccine(2022- season) due on 02/06/2024 Annual PCP Team Chronic Disease Visit due on 03/26/2024 Dilated Retinal Exam due on 04/10/2024 DTaP,Tdap,Td Vaccine(3 - Td or Tdap) due on 10/27/2030 Influenza Vaccine Completed Pneumococcal Vaccine: 65+ Completed Hepatitis C Screening Discontinued Data reviewed ASSESSMENT/PLAN: 1. Well adult exam - ICD9: V70.0, ICD10: Z00.00 (primary diagnosis) - Counseled on healthy diet and regular exercise - Discussed need for and benefit of weight loss. BMI 37.69 kg/(m^2) - Colorectal cancer screening recommended - agrees to iFOBT testing - Risks/benefits of prostate cancer screening discussed. screening PSA ordered - Follow up for annual exam in one year - advised on RSV and Shingrix vaccine 2. Type 2 diabetes mellitus without complication, without long-term current use of insulin (HCC) - ICD9: 250.00, ICD10: E11.9 - Await labs - Continue current medications - Counseled on healthy diet and regular exercise - Discussed need for and benefit of weight loss. BMI 37.69 kg/(m^2) Check CMP, Lipid, UA, urine Micro albumin, A1c, CBC 3. Diabetic eye exam (HCC) - ICD9: V72.0, 250.00, ICD10: Z01.00, E11.9 - up to date 4. Hypertension, essential - ICD9: 401.9, ICD10: I10 - Controlled - Continue current medications - Recommend home blood pressure monitoring, to bring results to next visit - Encouraged sodium restriction, DASH or Mediterranean diet - Recommend regular aerobic exercise - Discussed need for and benefit of weight loss. BMI 37.69 kg/(m^2) - await labs 5. Mixed hyperlipidemia - ICD9: 272.2, ICD10: E78.2 - await labs - Continue current medications - Counseled on healthy diet and regular exercise - Discussed need for and benefit of weight loss. BMI 37.69 kg/(m^2) 6. 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 - ICD9: 414.01, ICD10: I25.10 - clinically stable - cont care with cardio 7. KARLA (obstructive sleep apnea) - ICD9: 327.23, ICD10: G47.33 - using CPAP nightly. 8. Benign prostatic hyperplasia with urinary frequency - ICD9: 600.01, 788.41, ICD10: N40.1, R35.0 Stable - cont current Tx. 9. Advance directive discussed with patient - ICD9: V65.49, ICD10: Z71.89 - needs to bring in copies. 10. Screening for colon cancer - ICD9: V76.51, ICD10: Z12.11 - check IFOBT 11. Prostate disorder - ICD9: 602.9, ICD10: N42.9 - check PSA 12. Nocturnal leg cramps - ICD9: 327.52, ICD10: G47.62 - cont baclofen. Requested Prescriptions Signed Prescriptions Disp Refills baclofen 20 mg tablet 30 tablet 5 Sig: Take 1 tablet by mouth daily at bedtime. metFORMIN ER (GLUCOPHAGE XR) 500 mg 24 hr tablet 120 tablet 5 Sig: Take 2 in the morning with breakfast and two in the evening. tamsulosin (FLOMAX) 0.4 mg 90 capsule 1 Sig: Take 1 capsule by mouth daily at bedtime. Bringing good RX coupon. pioglitazone (ACTOS) 45 mg tablet 90 tablet 1 Sig: Take 1 tablet by mouth once daily. losartan-hydroCHLOROthiazide (HYZAAR) 50-12.5 mg per tablet 90 tablet 1 Sig: Take 1 tablet by mouth once daily. glimepiride (AMARYL) 4 mg tablet 180 tablet 1 Sig: Take 1 tablet by mouth two times a day with meals. nitroglycerin sublingual (NITROQUICK) 0.4 mg SL tablet 25 tablet 3 Sig: Dissolve 1 tablet under the tongue as directed. EVERY 5 MIN X3 Flurbiprofen 100 mg tablet 60 tablet 5 Sig: TAKE ONE TABLET BY MOUTH TWICE DAILY FOR ARTHRITIS, as needed gabapentin (NEURONTIN) 100 mg capsule 90 capsule 1 Sig: Take 1 capsule by mouth daily at bedtime for 180 days. For leg cramps F/u 6 months routine I spent a total of 40 minutes on the date of the service which included preparing to see the patient, [id number] patient care, completing clinical documentation, performing a medically appropriate examination, counseling and educating the patient/family/caregiver and ordering medications, tests, or procedures. César Merrill MD documented in this [facility]12-21-2023 Instructions* Patient Instructions* May Ragland MD - 04/19/2023 10:20 AM EST Use inhaler for SOB Oxygen reassessment documented in this [facility]12-21-2023 History of Present illness Narrative* May Ragland MD - 04/19/2023 10:00 AM EST Images from the original note were not included. . Respiratory Post Note Patient name: Katharine Cano PCP: César Merrill MD CC: Hypoxemia HPI: Katharine Cano 78 year old male former 35 pack year smoker, quitting in 1997 with PMH significant for obesity, CAD s/p stent, HTN, HLD, KARLA on CPAP, DM2 and history of COVID PNA 2020 requiring oxygen. Last seen in pulmonary clinic in 2020. Ambulatory oxygen assessment did not show persistent need for supplemental oxygen. He had been doing well without oxygen. Self monitored levels had been > 90%.he has had persistent need for rescue inhaler due to intermittent shortness of breath, cough. Recently had at L3-5 laminectomy with spinal fusion [facility] 04/22/23 with postoperative note of hypoxemia down to 87%. Discharged on 2 L supplemental oxygen. Patient states that he has been doing well this past week since his surgery. He is more ambulatory. Denies any significant shortness of breath although he has intermittent cough without sputum production. He has not been wearing his oxygen and self monitored SpO2 has not dropped below 89%. DME: [employer] DATA: Reviewed EMR from [facility] Imaging / Diagnostic Studies: 03/20/23 STUDY: X-RAY CHEST REASON FOR EXAM: Male, 78 years old. Preoperative evaluation. COMPARISON: January 18, 2021. FINDINGS: Stable hyperinflation with linear scarring in both bases. Scattered healed parenchymal granulomatous calcifications, unchanged. There is no demonstrated pleural abnormality. Cardiomegaly unchanged. Normal mediastinum and snehal. Normal visualized pulmonary arteries. Aortic tortuosity with calcification unaltered. Thoracic osteopenia with mild diffuse thoracic spondylosis, unchanged. Normal visualized ribs, clavicles, and shoulders. Stable lower cervical spine fusion. No abnormality of the visualized soft tissue structures of the upper abdomen. IMPRESSION: Stable cardiomegaly, marked aortic tortuosity with calcification and hyperinflation. No active or acute cardiopulmonary disease. Reviewed portable CXR from [facility] which shows poor lung volumes but no evidence of pulmonary edema or significant atelectasis PAST MEDICAL HISTORY Diagnosis Date Advance directive discussed with patient 11/15/2021 Discussed 10/2021 Benign prostatic hyperplasia without lower urinary tract symptoms 12/11/2016 Coronary atherosclerosis 05/02/2007 COVID-19 virus infection 01/18/202112/2020 Diabetes mellitus (HCC) Diabetic eye exam (HCC) 01/11/2017 Last Done: 12/09/2018, No Retinopathy Ex-smoker 12/11/2016 Started at age 17 yo, Up to 7-10 pipes a day. Quite at age 53, [place] 11/2015 neg for AAA History of coronary artery stent placement 12/19/2012 Hypertension, essential 12/11/[address] 11/15/2021 DPA: Wilfredo (son) Mixed hyperlipidemia 11/07/2005 Nocturnal leg cramps 02/22/2018 KARLA (obstructive sleep apnea) 12/19/2012 Phimosis 12/11/2016 ALLERGIES Allergen Reactions Diovan [Valsartan] Cough Crestor [Rosuvastat* Other: See Comments rash and sore muscles Metformin Diarrhea Zinc Intolerance chest pain HYDROcodone-acetaminophen (NORCO) 5-325 mg per tablet Take 1 tablet by mouth every 6 hours. for 7 days baclofen 20 mg tablet Take 1 tablet by mouth daily at bedtime. gabapentin (NEURONTIN) 100 mg capsule Take 1 capsule by mouth daily at bedtime for 180 days. For leg cramps metFORMIN ER (GLUCOPHAGE XR) 500 mg 24 hr tablet Take 2 in the morning with breakfast and two in the evening. tamsulosin (FLOMAX) 0.4 mg Take 1 capsule by mouth daily at bedtime. Bringing good RX coupon. pioglitazone (ACTOS) 45 mg tablet Take 1 tablet by mouth once daily. losartan-hydroCHLOROthiazide (HYZAAR) 50-12.5 mg per tablet Take 1 tablet by mouth once daily. glimepiride (AMARYL) 4 mg tablet Take 1 tablet by mouth two times a day with meals. Flurbiprofen 100 mg tablet TAKE ONE TABLET BY MOUTH TWICE DAILY FOR ARTHRITIS nitroglycerin sublingual (NITROQUICK) 0.4 mg SL tablet Dissolve 1 tablet under the tongue as directed. EVERY 5 MIN X3 atenolol (TENORMIN) 25 mg tablet Take 1 tablet by mouth once daily. Per [facility] ERGOCALCIFEROL, VITAMIN D2, (VITAMIN D2 ORAL) Take 2,000 Units by mouth. simvastatin (ZOCOR) 80 mg tablet Take 1 tablet by mouth daily at bedtime. Per Dr. Barba Aspirin 81 mg ORAL Tab 2 tablets daily Social History Tobacco Use Smoking status: Former Years: 35 Types: Cigarettes Start date: 1963 Quit date: 07/29/1997 Years since quittin.7 Smokeless tobacco: Former Vaping Use Vaping Use: Never used Substance Use Topics Alcohol use: No Drug use: No FAMILY HISTORY Problem Relation Age of Onset Coronary Artery Disease Father after CABG at 81 Cancer Sister renal Kidney Disease Brother other (Lavon's) Brother Cancer Brother Coronary Artery Disease Paternal Uncle 70's COPD No Family History Cystic Fibrosis No Family History PAST SURGICAL HISTORY Procedure Laterality Date 2D ECHO (EXEP) 11/19/2018 EF 55%, stage 1 Diast Dysf, NO change from 04/2011 ARTHRP KNE CONDYLE&PLATU MEDIAL&LAT COMPARTMENTS Right ARTHRP KNE CONDYLE&PLATU MEDIAL&LAT COMPARTMENTS Left FECAL OCCULT BLOOD TEST 05/26/2019 negative PAST SURGICAL HISTORY OF 07/09/2017 right carpal tunnel repair PAST SURGICAL HISTORY OF 09/2017 C6, C7 block and plates PAST SURGICAL HISTORY OF 04/12/2023 lumbar surgery PAST SURGICAL HISTORY OF 03/2023 Spinal fusion L3-L4 STRESS TEST 09/27/2017 negative PMH, Social history, family history and surgical history reviewed and updated in EMR REVIEW OF SYSTEMS: CONSTITUTIONAL: No fevers, chills, nightsweats, unintended weight loss HEENT: Denies nasal congestion/sinus symptoms, allergy problems. CARDIOVASCULAR: No chest pain, dyspnea, palpitations, orthopnea, PND. Edema PULM: See HPI NEURO: No peripheral weakness/paresthesias or numbness of concern. Ambulating with a walker MUSC-SKEL: Back pain has improved PSY: No concerns regarding depression, anxiety INTEGUMENTARY: No new skin changes or rashes PHYSICAL EXAMINATION: BP 142/62 Pulse 81 Wt 223 lb (101.2kg) SpO2 96% General Appearance: Elderly male, NAD. Skin: Skin color, texture, turgor normal, no suspicious rashes or lesions. Head: Normocephalic, no masses, lesions, tenderness or abnormalities. Eyes: Sclera, conjunctiva normal. Neck: No JVD, no masses, no adenopathy. Lungs: Not labored, no wheezes or crackles. Heart: Regular rate and rhythm, no murmurs or gallops. Extremities: Lower extremity edema, no clubbing. Assessment/Plan: 1. Hypoxemia -Patient has history of COVID infection/pneumonia with some residual scarring, previously required supplemental oxygen. But able to discontinue in 2020 -Suspect patient had some atelectasis/poor inspiratory effort post lumbar surgery resulting in hypoxemia -Currently appears to be doing well -Repeat ambulatory oximetry testing 2. History of COVID -Long-term sequelae of mild fibrosis May Ragland MD Respiratory Post [facility] Progress note Author Lenore Robledo [facility] April 14, 2023 11:28am Note Date/Time April 14, 2023 11:28am [facility] Medical Records Department [address] [place] [address] Progress Note - Hospitalist 04/14/23 1124 MR#: [id number] Acct: [id number] Name: KATHARINE CANO Rep #:[id number] : 1945 78 From: Lenore Robledo DO PCP: Dr. César Merrill MD Status:ADM REESE Location: [place] [address] Reason for Visit Reason for Visit: Chronic back pain Subjective Subjective No issues overnight. Patient remains on 2 L nasal cannula and with ambulation did well with 2 L however at rest with no oxygen his oxygen saturation was 87%. He indicates he is followed with Dr. May Ragland over at [facility] previously and will do so after discharge. He is anxious to go home and would be willing to doso on oxygen if needed. I think with his oxygen stabilizing we can get him hometoday with supplemental oxygen [id number] and he can follow-up as an outpatient with pulmonary medicine after discharge. He is very anxious to leaveand voiced that he would be compliant at home with his supplemental oxygen. Objective Data Objective Data Vital Signs: Vital Signs Temp Pulse Resp BP Pulse Ox O2 Del Method O2 Flow Rate 98.3 F 88 22 H 124/56 H 87 Nasal Cannula 2 04/14/23 07:37 04/14/23 10:56 04/14/23 10:56 04/14/23 07:37 04/14/23 09:28 04/14/23 07:39 04/14/23 09:28 Oxygen Flow Rate (L/min) [ 2 AMBULATING with Oxygen #1] Oxygen Flow Rate (L/min) 4 Oxygen Delivery Method Nasal Cannula Weight: 106.594 kg Body Mass Index (BMI) 37.9 Intake & Output: Intake and Output for Last 24 Hours 04/12/23 04/13/23 04/14/23 23:59 23:59 23:59 Intake Total 2414 / 2414 1646.08 / 1646.08 600 / 600 Output Total 905 / 2105 2490 / 2490 150 / 150 Balance 1509 / 309 -843.92 / -843.92 450 / 450 Lab / Micro Data 04/13/23 09:16 04/13/23 09:16 Labs: Laboratory Results - last 24 hr 04/13/23 11:39: POC Glucose 241 H 04/13/23 16:03: POC Glucose 224 H 04/13/23 21:47: POC Glucose 240 H 04/14/23 06:32: POC Glucose 135 H Micro: Microbiology 04/13/23 11:35 Mucosa - Nasopharyngeal Respiratory Panel (PCR) - Final 04/13/23 11:35 Nasal Secretion SARS-CoV-2 & FLU Antigen (Rapid) - Final Physical Exam Const alert, oriented x3, no apparent distress and well nourished Constitutional Narrative: Older, Orthodox, white male, sitting up in a chair at the bedside, family at bedside, patient appears comfortable and nontoxic, currently on 2 L nasal cannula with no signs of respiratory distress HEENT head/scalp atraumatic and moist oral mucous membranes HEENT Narrative: Dentition is poor, Mallampati is 3, no thrush Head and Scalp: normocephalic Resp normal respiratory effort, no retractions, no use of accessory muscles and clearto auscultation bilaterally Resp Narrative: Wheezing has resolved and lungs pereira are clear Auscultation: Negative for crackles, rhonchi or wheezes Cardio regular rate, regular rhythm, S1 normal heart sound, S2 normal heart sound, no murmurs, no rub, no gallops and no clicks GI normal to inspection, nondistended, normoactive bowel sounds, soft to palpation and non-tender Extremity no clubbing, cyanosis or edema Extremity Narrative: Pedal pulses are 2+ Neuro oriented x3, moves all extremities and no focal motor deficits Speech: speech normal Psych affect normal Psych Narrative: Very pleasant, eye contact is good Assessment & Plan Assessment/Plan (1) Lumbar stenosis: (2) Bradycardia: (3) First degree heart block: (4) Hypoxia: PLAN: Plan Lumbar stenosis -Postop day 2 lumbar fusion/decompression with Dr. Tijerina -Seems to be doing well clinically and anxious to go home -Management per primary service next-recommend bowel regimen Postoperative bradycardia/first-degree heart block -Patient has chronic first-degree heart block that was noted in his cardiologistoffice last month -Echocardiogram done within the last year showing EF of 60% -Heart rates have been stable through the night -Continue atenolol Hypoxia -Supplemental oxygen had been weaned to 2 L an ambulatory pulse ox was assessed and patient does require 2 L with ambulation -No signs of respiratory failure however patient hypoxic at rest and with exertion on room air -Lasix 20 mg IV push given one-time dose today -Wheezing on exam has resolved -Will discharge home with prednisone taper -Discharge home with Atrovent utilizing spacer and patient was instructed in useprior to discharge -Flu/COVID/respiratory viral panel were all unremarkable -Chest x-ray shows some right basilar atelectasis or scarring but was otherwise unremarkable -Encouraged Acapella and incentive spirometry at home after discharge -Home oxygen was set up for the patient and he was referred to revisit with his home investment advisor after discharge CAD/HTN/HPL -Most recent stent was in 1997 -Continue statin -Continue losartan hydrochlorothiazide -Continue home atenolol DM-2 -Continue Accu-Cheks as ordered -Patient okay to continue home medications with metformin, glimepiride and Actos Chronic pain/neuropathy -Continue home gabapentin -Continue home baclofen -Acute pain management per primary service BPH with obstruction -Continue home Flomax KARLA -Continue nocturnal CPAP DVT prophylaxis -Per primary service Disposition: Patient medically stable however still requiring some supplemental oxygen however down to 2 L. Will require 2 L at rest and with exertion. Patient is anxious to go home and indicates that he can obtain oxygen at home. He utilizesa CPAP nocturnally with a 7 L bleed and already has supplies available with the generator. He has seen Dr. May Ragland in the past and did indicate he would schedule a follow-up to be seen by her after discharge. Okay to dischargehome from medical standpoint with supplemental oxygen, prednisone taper, and as needed Atrovent inhaler with spacer. Charges/Coding Visit Charges Inpatient E&M: 48512 Subs Hosp L2 04/14/23 1128 <Electronically signed by Lenore Robledo DO> Cosigner Signature (if applicable): CC: ~ Signed [facility] Work Phone: 1(911) 438-261912-15-2023 Progress note Author Lenore Robledo [facility] April 13, 2023 10:53am Note Date/Time April 13, 2023 7:24am [facility] Medical Records Department [address] [place] [address] Progress Note - Hospitalist 04/13/23 0718 MR#: [id number] Acct: [id number] Name: KATHARINE CANO Rep #:[id number] : 1945 78 From: Lenore Robledo DO PCP: Dr. César Merrill MD Status:ADM REESE Location: [place] [id number] Reason for Visit Reason for Visit: Lumbar stenosis Subjective Subjective Mr. Cano is a 78-year-old male who underwent a lumbar interbody fusion, decompression, posterior spinal fusion with Dr. Tijerina yesterday at L3-L5. Postoperatively in PACU he had some bradycardia with heart rates between the 30sand 80s however this is resolved at this time. EKG showed first-degree block which is his baseline. He had no further bradycardia since PACU. He did require oxygen supplementation overnight however he has a history of sleep apneaand wears a CPAP which was not available to him here. Patient denies any dyspnea. No fever or chills. No cough. Patient does reporta remote history of tobacco use and is unable to tell me exactly how long he smoked but does state he is quit 15 to 20 years ago. Does not wear oxygen at baseline but is compliant with CPAP nocturnally. Objective Data Objective Data Vital Signs: Vital Signs Temp Pulse Resp BP Pulse Ox O2 Del Method O2 Flow Rate 97.8 F 98 16 135/53 H 97 Nasal Cannula 5 04/13/23 03:00 04/13/23 03:00 04/13/23 03:00 04/13/23 03:00 04/13/23 03:00 04/13/23 03:00 04/13/23 03:00 Oxygen Flow Rate (L/min) 5 Oxygen Delivery Method Nasal Cannula Weight: 106.594 kg Body Mass Index (BMI) 37.9 Intake & Output: Intake and Output for Last 24 Hours 04/11/23 04/12/23 04/13/23 23:59 23:59 23:59 Intake Total 2414 / 2414 1050 / 1050 Output Total 905 / 2105 1840 / 1840 Balance 1509 / 309 -790 / -790 Lab / Micro Data 04/13/23 09:16 04/13/23 09:16 Labs: Laboratory Results - last 24 hr 04/12/23 06:30: POC Glucose 157 H 04/12/23 13:46: POC Glucose 140 H 04/12/23 16:39: POC Glucose 191 H 04/12/23 21:12: POC Glucose 193 H 04/13/23 05:27: POC Glucose 183 H Radiography Diagnostic Testing: Radiology Impression Lumbar Spine X-Ray 04/12/23 06:30 IMPRESSION: Fluoroscopy during lumbar spine fixation. Electronically Signed: Jem Wan MD at 23:28 EST , Physical Exam Const alert, oriented x3, no apparent distress and well nourished Constitutional Narrative: Older, Orthodox, white male, sitting up in bed, family at bedside, patient appears comfortable and nontoxic, currently on 5 L nasal cannula with no signs of respiratory distress HEENT head/scalp atraumatic and moist oral mucous membranes HEENT Narrative: Dentures in place, Mallampati is 3, no thrush Head and Scalp: normocephalic Resp normal respiratory effort, no retractions and no use of accessory muscles Resp Narrative: Diffuse end expiratory wheezing Auscultation: wheezes; Negative for crackles or rhonchi Cardio regular rhythm and S1 normal heart sound Cardio Narrative: Mild tachycardia GI normal to inspection, nondistended, normoactive bowel sounds, soft to palpation and non-tender Extremity no clubbing, cyanosis or edema Extremity Narrative: Pedal pulses are 2+ Neuro oriented x3, moves all extremities and no focal motor deficits Speech: speech normal Psych affect normal Psych Narrative: Very pleasant, eye contact is good Assessment & Plan Assessment/Plan (1) Lumbar stenosis: (2) Bradycardia: (3) First degree heart block: (4) Hypoxia: PLAN: Plan Lumbar stenosis -Postop day 1 lumbar fusion/decompression with Dr. Tijerina -Management per primary service next-recommend bowel regimen Postoperative bradycardia/first-degree heart block -Patient has chronic first-degree heart block that was noted in his cardiologistoffice last month -Echocardiogram done within the last year showing EF of 60% -Heart rates have been stable through the night -Okay to restart atenolol at discharge Hypoxia -Patient currently on 5 L nasal cannula and desats easily with exertion -Is not O2 dependent at baseline -No signs of respiratory failure however patient hypoxic at rest and with exertion on room air -Discontinue IV fluids -Significant wheezing on exam -BNP is unremarkable -Chest x-ray shows some right basilar atelectasis or scarring but was otherwise unremarkable -Encourage Acapella and incentive spirometry -Start prednisone 40 mg daily -Check flu and COVID swab -Check respiratory viral panel -DuoNebs scheduled every 4 hours while awake -Will need to check ambulatory pulse ox prior to discharge CAD/HTN/HPL -Most recent stent was in 1997 -Continue statin -Continue losartan hydrochlorothiazide -Okay to beta-lizandro on discharge DM-2 -Continue Accu-Cheks as ordered -Patient okay to continue home medications with metformin, glimepiride and Actos Chronic pain/neuropathy -Continue home gabapentin -Continue home baclofen -Acute pain management per primary service BPH with obstruction -Continue home Flomax KARLA -Continue nocturnal CPAP DVT prophylaxis -Per primary service Disposition: With ongoing hypoxia and workup/treatment is ongoing. Would recommend holding discharge medically today and less able to wean to room air. Will require ambulatory pulse ox and possibly oxygen prior to discharge depending on progressin the next 24 hours Charges/Coding Visit Charges Inpatient E&M: 62660 Subs Hosp L2 04/13/23 1053 <Electronically signed by Lenore Robledo DO> Cosigner Signature (if applicable): CC: ~ Signed [facility] Work Phone: [phone]) 743-192112-15-2023 Progress note Author César Tijerina [facility] April 13, 2023 6:45am Note Date/Time April 13, 2023 6:45am [facility] Medical Records Department [address] [place] [address] [place] [address] Progress Note - Orthopedic 04/13/23 0643 MR#: [id number] Acct: [id number] Name: KATHARINE CANO Rep #:[id number] : 1945 78 From: César Martin PCP: Dr. César Merrill MD Status:ADM REESE Location: [id number] Subjective Subjective Seen and examined postop day 1. Lying in bed resting comfortably. Pain controlled. No complaints including numbness tingling or weakness. The patienthas been up with assistance including to a chair. Objective Data Objective Data Vital Signs: Vital Signs Temp Pulse Resp BP Pulse Ox O2 Del Method O2 Flow Rate 97.8 F 98 16 135/53 H 97 Nasal Cannula 5 04/13/23 03:00 04/13/23 03:00 04/13/23 03:00 04/13/23 03:00 04/13/23 03:00 04/13/23 03:00 04/13/23 03:00 Oxygen Flow Rate (L/min) 5 Oxygen Delivery Method Nasal Cannula Weight: 235 lb Body Mass Index (BMI) 37.9 Intake & Output: Intake and Output for Last 24 Hours 04/11/23 04/12/23 04/13/23 23:59 23:59 23:59 Intake Total 2414 / 2414 1050 / 1050 Output Total 905 / 2105 1840 / 1840 Balance 1509 / 309 -790 / -790 Lab / Micro Data 03/20/23 08:41 03/20/23 08:41 Labs: Laboratory Results - last 24 hr 04/12/23 06:30: POC Glucose 157 H 04/12/23 13:46: POC Glucose 140 H 04/12/23 16:39: POC Glucose 191 H 04/12/23 21:12: POC Glucose 193 H 04/13/23 05:27: POC Glucose 183 H Radiography Diagnostic Testing: Radiology Impression Lumbar Spine X-Ray 04/12/23 06:30 IMPRESSION: Fluoroscopy during lumbar spine fixation. Electronically Signed: Jem Wan MD at 23:28 EST , Physical Exam Const alert, oriented x3 and no apparent distress General Appearance: cooperative, comfortable and well kempt Neck full ROM General: normal visual inspection Chest inspection of chest normal and palpation of chest normal Resp normal respiratory effort and normal air movement Effort and Inspection: able to speak in complete sentences Cardio regular rate and peripheral pulses 2+ throughout GI soft to palpation, non-tender and non-distended Back/Spine Back/Spine Narrative: Dressing clean dry and intact. Incision well-approximated with interrupted sutures in place. No tenderness erythema drainage or fluctuance. Drain pulled Cervical Spine: cervical ROM normal Thoracic Spine / Upper Back: normal to inspection Lumbar Spine / Lower Back: normal to inspection Extremity normal to inspection, full ROM, normal capillary refill, no joint enlargement and no calf tenderness Skin no rashes or lesions noted General Skin Exam: no breakdown Neuro oriented x3, CN's II-XII intact bilaterally, moves all extremities, no focal motor deficits, no sensory deficits noted and deep tendon reflexes 2+ bilaterally Motor Exam: strength 5/5 throughout and muscle tone normal throughout Assessment & Plan Assessment/Plan (1) Lumbar stenosis: PLAN: Continue pain control and mobilization as tolerated. Okay to discharge home when patient is mobilizing well and stable from medicine point of view 04/13/23 0645 <Electronically signed by César Tijerina DO> Cosigner Signature (if applicable): CC: ~ Signed [facility] Work Phone: 1(149) 417-722212-15-2023 Progress note Author César Tijerina [facility] April 13, 2023 6:43am Note Date/Time April 12, 2023 8:06am [facility] Medical Records Department [address] [place] [id number] Progress Note - Orthopedic 04/12/23805 MR#: [id number] Acct: [id number] Name: JEROMEKATHARINE Galvin Rep #:[id number] : 1945 78 From: César Martin PCP: Dr. César Merrill MD Status:ADM REESE Location: [place] [id number] Subjective Subjective Seen and examined postop. Resting comfortably. Pain controlled. No complaints Objective Data Objective Data Vital Signs: Vital Signs Temp Pulse Resp BP Pulse Ox O2 Del Method 98.3 F 65 16 124/63 H 96 Room Air 04/12/23 06:20 04/12/23 06:20 04/12/23 06:20 04/12/23 06:20 04/12/23 06:20 04/12/23 06:20 Oxygen Delivery Method Room Air Weight: 222 lb 10.67 oz Body Mass Index (BMI) 35.9 Lab / Micro Data 03/20/23 08:41 03/20/23 08:41 Labs: Laboratory Results - last 24 hr 04/12/23 06:30: POC Glucose 157 H Physical Exam Const alert, oriented x3 and no apparent distress General Appearance: cooperative, comfortable and well kempt HEENT normocephalic and head/scalp atraumatic Eyes EOMs intact bilaterally and conjunctivae normal Neck full ROM General: normal visual inspection Chest inspection of chest normal and palpation of chest normal Resp normal respiratory effort and normal air movement Cardio regular rate, regular rhythm and peripheral pulses 2+ throughout GI soft to palpation, non-tender and non-distended Back/Spine Back/Spine Narrative: Dressing clean dry and intact. Cervical Spine: cervical ROM normal Thoracic Spine / Upper Back: normal to inspection Lumbar Spine / Lower Back: normal to inspection Extremity normal to inspection, full ROM, normal capillary refill, no clubbing, cyanosis or edema and no calf tenderness Skin no rashes or lesions noted General Skin Exam: no breakdown Neuro oriented x3, CN's II-XII intact bilaterally, moves all extremities, no focal motor deficits, no sensory deficits noted and deep tendon reflexes 2+ bilaterally Motor Exam: muscle tone normal throughout Assessment & Plan Assessment/Plan (1) Lumbar stenosis: PLAN: Okay to admit See orders Discharge planning, likely home tomorrow 04/13/23 0643 <Electronically signed by César Tijerina DO> Cosigner Signature (if applicable): CC: ~ Signed [facility] Work Phone: 1(272) 876-816112-14-2023 Progress note Author Gogo Santizo [facility] April 12, 2023 6:13pm Note Date/Time April 12, 2023 6:13pm [facility] Medical Records Department [address] [place] [address] Progress Note - Hospitalist 04/12/231805 MR#: [id number] Acct: [id number] Name: KATHARINE CANO Rep #:[id number] : 1945 78 From: Gogo Santizo MD PCP: Dr. César Merrill MD Status:ADM REESE Location: [place] [id number] Reason for Visit Reason for Visit: Diagnoses Spinal stenosis, lumbar region without neurogenic claudication (04/12/23) Encounter for other preprocedural examination (04/12/23) Subjective Subjective 78-year-old male history of coronary artery disease status post stenting, lumbarstenosis, type 2 diabetes, hypertension presented to [facility] 04/12/2023 for lumbar stenosis requiring L3-5 posterior lumbar interbody fusion,decompression, posterior spinal fusion with instrumentation with Dr. Tijerina. Hospitalist consulted for medical management. Reportedly postop on telemetry heart rate vacillating between 30s and 80s with no known history of fib. EKG obtained which showed sinus rhythm with first-degree block and heart rate of 66,similar to previous. On telemetry patient sinus rhythm with heart rate 60s to 80s at this time after chest was shaved and leads replaced. No fib or long pauses or other kinds of blocks appreciated on telemetry. Patient seen at bedside and reports a little bit of lumbar pain but overall feeling well and hasno lightheadedness or chest pain and denies any problems with his breathing. Noother complaints at this time Objective Data Objective Data Vital Signs: Vital Signs Temp Pulse Resp BP Pulse Ox O2 Del Method O2 Flow Rate 97.2 F L 66 18 130/54 H 95 Nasal Cannula 5 04/12/23 18:00 04/12/23 18:00 04/12/23 18:00 04/12/23 18:00 04/12/23 18:00 04/12/23 18:00 04/12/23 18:00 Oxygen Flow Rate (L/min) 5 Oxygen Delivery Method Nasal Cannula Weight: 106.594 kg Body Mass Index (BMI) 37.9 Intake & Output: Intake and Output for Last 24 Hours 04/10/23 04/11/23 04/12/23 23:59 23:59 23:59 Intake Total 2364 / 2364 Output Total 590 / 590 Balance 1774 / 1774 Lab / Micro Data 03/20/23 08:41 03/20/23 08:41 Labs: Laboratory Results - last 24 hr 04/12/23 06:30: POC Glucose 157 H 04/12/23 13:46: POC Glucose 140 H 04/12/23 16:39: POC Glucose 191 H Physical Exam Narrative General: Alert, oriented, no apparent distress HEENT: Atraumatic, normocephalic Eyes: Anicteric, normal conjunctiva, extraocular movements grossly intact Neck: Supple Respiratory: Clear to auscultation bilaterally, normal respiratory effort Cardiovascular: Regular rate and rhythm GI: Soft, nontender, nondistended Extremities: Trace lower extremity edema which is chronic Musculoskeletal: Moving all extremities Neuro: No overt focal neurological deficits Skin: No rashes appreciated Psych: Cooperative Assessment & Plan Assessment/Plan (1) Lumbar stenosis: (2) Stented coronary artery: (3) Diabetes mellitus type II, controlled: PLAN: Plan #First degree AV block -Reportedly heart rates transiently down into 30s, no fib on monitor, has been 60s to 80s since chest shaved and leads replaced. Patient has been asymptomatic -EKG with heart rate of 66 sinus rhythm and first-degree AV block similar to EKGin cardiology office last month -EKG in cardiology office 03/09/2023 demonstrated sinus rhythm with first- degreeAV block and heart rate of 83 -most recent echocardiogram from 01/24/2022 demonstrated an ejection fraction of 60%, normal mitral valve, and trivial mitral valve insufficiency, RVSP and diastolic function indeterminant -Given patient now consistent in no new onset A-fib or new blocks do not think echo needs repeated -Would hold atenolol at this time pending continued improvement in heart rate # Lumbar stenosis -Lumbar fusion decompression 04/12/[address] Tijerina -Management per primary # Coronary artery disease -Stented artery in 1997 -Continue statin -Does follow with cardiology on an outpatient basis #Type 2 diabetes mellitus -Glucose checks, patient was continued on his home medications # Hypertension -Blood pressure medications continued #DVT ppx: Pharmacologic prophylaxis timing at discretion of surgeon Gogo Santizo MD Time spent in the patient's overall evaluation,decision-making process, review of diagnostic data, adjustment of management, discussion with other providers, nursing nursing and ancillary staff involved in patient's care documentation, 35minutes Charges/Coding Visit Charges Inpatient E&M: 91928 Subs Hosp L2 04/12/231812 <Electronically signed by Gogo Santizo MD> Cosigner Signature (if applicable): CC: ~ Signed [facility] Work Phone: 1(680) 696-194412-14-2023 Procedure [facility] 04-10-2023 History of Present illness Narrative* Demarcus Higginbotham LPN - 04/10/2023 2:26 PM EST Scan on 04/10/2023 10:15 AM by Provider, Tori, YURIDIA: Consultation - Ophthalmology documented [facility] History of Present illness Narrative* JeromeMauriceahBOBBY.COMPOSITE BOAT BUILDER - 03/26/2023 12:09 PM EST Chief Complaint Patient presents with: Pre-Op Exam: Surgery clearance for 04/12/23 by for back surgery HPI Katharine Cano is a 78 year old male who presents here today for Above Complaints. Today: Has had pain for about 2 years in his lumbar spine, L4 and L5. When just sitting is only a 1/10. Ifup walking, it gets worse the further he goes gets up to 8- 9/10. No known injury. BP at home is always systolic 130-140's. Walking far will cause some SOB but this is only due to the pain. Denies SOB. Has never had any trouble with anesthesia, no known family hx either. Recently had labs, EKG, chest xray as ordered by orthopedic physician. Dentures on the top, own teeth on bottom. Past medical history, appointments, medications, allergies reviewed. Previous Medical History PAST MEDICAL HISTORY Diagnosis Date Advance directive discussed with patient 11/15/2021 Discussed 10/2021 Benign prostatic hyperplasia without lower urinary tract symptoms 12/11/2016 Coronary atherosclerosis 05/02/2007 COVID-19 virus infection 01/18/202112/2020 Diabetic eye exam (HCC) 01/11/2017 Last Done: 12/09/2018, No Retinopathy Ex-smoker 12/11/2016 Started at age 17 yo, Up to 7-10 pipes a day. Quite at age 53, US 11/2015 neg for AAA History of coronary artery stent placement 12/19/2012 Hypertension, essential 12/11/[address] 11/15/2021 DPA: Wilfredo (son) Mixed hyperlipidemia 11/07/2005 Nocturnal leg cramps 02/22/2018 KARLA (obstructive sleep apnea) 12/19/2012 Phimosis 12/11/2016 Previous Surgical History PAST SURGICAL HISTORY Procedure Laterality Date 2D ECHO (EXEP) 11/19/2018 EF 55%, stage 1 Diast Dysf, NO change from 04/2011 ARTHRP KNE CONDYLE&PLATU MEDIAL&LAT COMPARTMENTS Right ARTHRP KNE CONDYLE&PLATU MEDIAL&LAT COMPARTMENTS Left FECAL OCCULT BLOOD TEST 05/26/2019 negative PAST SURGICAL HISTORY OF 07/09/2017 right carpal tunnel repair PAST SURGICAL HISTORY OF 09/2017 C6, C7 block and plates STRESS TEST 09/27/2017 negative Family History FAMILY HISTORY Problem Relation Age of Onset Coronary Artery Disease Father after CABG at 81 Cancer Sister renal Kidney Disease Brother other (Lavon's) Brother Cancer Brother Coronary Artery Disease Paternal Uncle 70's COPD No Family History Cystic Fibrosis No Family History Patient Allergies ALLERGIES Allergen Reactions Diovan [Valsartan] Cough Crestor [Rosuvastat* Other: See Comments rash and sore muscles Metformin Diarrhea Zinc Intolerance chest pain Current Medications Current Outpatient Medications on File Prior to Visit Medication Sig baclofen 20 mg tablet Take 1 tablet by mouth daily at bedtime. gabapentin (NEURONTIN) 100 mg capsule Take 1 capsule by mouth daily at bedtime for 180 days. For leg cramps metFORMIN ER (GLUCOPHAGE XR) 500 mg 24 hr tablet Take 2 in the morning with breakfast and two in the evening. tamsulosin (FLOMAX) 0.4 mg Take 1 capsule by mouth daily at bedtime. Bringing good RX coupon. pioglitazone (ACTOS) 45 mg tablet Take 1 tablet by mouth once daily. losartan-hydroCHLOROthiazide (HYZAAR) 50-12.5 mg per tablet Take 1 tablet by mouth once daily. glimepiride (AMARYL) 4 mg tablet Take 1 tablet by mouth two times a day with meals. Flurbiprofen 100 mg tablet TAKE ONE TABLET BY MOUTH TWICE DAILY FOR ARTHRITIS nitroglycerin sublingual (NITROQUICK) 0.4 mg SL tablet Dissolve 1 tablet under the tongue as directed. EVERY 5 MIN X3 atenolol (TENORMIN) 25 mg tablet Take 1 tablet by mouth once daily. Per [facility] ERGOCALCIFEROL, VITAMIN D2, (VITAMIN D2 ORAL) Take 2,000 Units by mouth. simvastatin (ZOCOR) 80 mg tablet Take 1 tablet by mouth daily at bedtime. Per Dr. Barba Aspirin 81 mg ORAL Tab 2 tablets daily No current facility-administered medications on file prior to visit. Social History Social History Tobacco Use Smoking status: Former Years: 35 Types: Cigarettes Start date: 1963 Quit date: 07/29/1997 Years since quittin.6 Smokeless tobacco: Former Vaping Use Vaping Use: Never used Substance Use Topics Alcohol use: No Drug use: No Review of Symptoms REVIEW OF SYSTEMS See HPI, otherwise negative EXAM: BP 141/66 (BP Site: Right Arm, BP Position: Sitting, BP Cuff Size: Large Adult) Pulse 70 Temp 36.7 C (98 F) Resp 12 Ht 165.1 cm (5' 5) Wt 103.4 kg (228 lb) SpO2 99% BMI 37.94 kg/m General Appearance: Well appearing, alert, in no acute distress, well-hydrated, well nourished.. Head: Normocephalic, no masses, lesions, tenderness or [...] Lungs clear to auscultation. No wheezing, rhonchi, rales.. Heart: RRR without murmur, gallop, or rubs. No ectopy. Abdomen: Normal abdominal exam, Abdomen soft, non-tender. Bowel sounds normal. No masses, organomegaly. Peripheral Pulses: Normal. Neurologic: Gait normal. Reflexes normal and symmetric. Sensation grossly intact.. Psychiatric: pleasant, cooperative. Health Maintenance List RSV Vaccine(1 - 1-dose 60+ series) Never done Shingrix Vaccine(2 of 2) due on 12/22/2020 Fecal Occult Blood due on 06/05/2022 HbA1C due on 11/28/2022 Dilated Retinal Exam due on 03/16/2023 Hepatitis B Vaccine(1 of 3 - Risk 3-dose series) due on 02/06/2024 Covid-19 Vaccine(1) due on 02/06/2024 Urine Albumin:Creatinine Ratio due on 05/31/2023 LDL Cholesterol due on 05/31/2023 Diabetic Foot Exam due on 05/31/2023 BP Controlled (<130/80) due on 02/06/2024 Annual PCP Team Chronic Disease Visit due on 03/26/2024 DTaP,Tdap,Td Vaccine(3 - Td or Tdap) due on 10/27/2030 Influenza Vaccine Completed Advance Directive Discussion Completed Depression Assessment Completed Pneumococcal Vaccine: 65+ Completed Hepatitis C Screening Discontinued Data reviewed Previous records, office notes ASSESSMENT/PLAN: 1. Preop examination - ICD9: V72.84, ICD10: Z01.818 Cleared for surgery from my standpoint. Melody Cano APRN.COMPOSITE BOAT BUILDER documented in [facility]11-22-[facility]23 Miscellaneous Notes* Telephone Encounter - Mary Worthington - 03/21/2023 2:45 PM EST Pre-op form received. Mary Worthington * Telephone Encounter - Demarcus Higginbotham LPN - 03/15/2023 3:26 PM EST Received pre -op forms form [facility]. Pt has appointment with Melody Cano 03/26. Forms placed in her mailbox. Demarcus Higginbotham LPN documented in [facility] encounterKe[facility]07-15-2023 Miscellaneous Notes* Telephone Encounter - César Merrill MD - 11/11/2022 11:29 AM EDT The following approved medication requests have been transmitted electronically. Requested Prescriptions Signed Prescriptions Disp Refills baclofen 20 mg tablet 30 tablet 5 Sig: Take 1 tablet by mouth daily at bedtime. Authorizing Provider: CÉSAR MERRILL gabapentin (NEURONTIN) 100 mg capsule 90 capsule 1 Sig: Take 1 capsule by mouth daily at bedtime for 180 days. For leg cramps Authorizing Provider: CÉSAR MERRILL metFORMIN ER (GLUCOPHAGE XR) 500 mg 24 hr tablet 120 tablet 5 Sig: Take 2 in the morning with breakfast and two in the evening. Authorizing Provider: CÉSAR MERRILL tamsulosin (FLOMAX) 0.4 mg 90 capsule 1 Sig: Take 1 capsule by mouth daily at bedtime. Bringing good RX coupon. Authorizing Provider: CÉSAR MERRILL pioglitazone (ACTOS) 45 mg tablet 90 tablet 1 Sig: Take 1 tablet by mouth once daily. Authorizing Provider: CÉSAR MERRILL losartan-hydroCHLOROthiazide (HYZAAR) 50-12.5 mg per tablet 90 tablet 1 Sig: Take 1 tablet by mouth once daily. Authorizing Provider: CÉSAR MERRILL glimepiride (AMARYL) 4 mg tablet 180 tablet 1 Sig: Take 1 tablet by mouth twice daily with meals. Authorizing Provider: CÉSAR MERRILL Flurbiprofen 100 mg tablet 60 tablet 5 Sig: TAKE ONE TABLET BY MOUTH TWICE DAILY FOR ARTHRITIS Authorizing Provider: CÉSAR MERRILL MD * Telephone Encounter - Demarcus Higginbotham LPN - 11/11/2022 8:23 AM EDT Appears pt should have refills of metformin left at pharm. [facility] 05/31/22 NOV none scheduled. Was canceled by clinic. Left message for pt to call and schedule 6 month routine f/u. Demarcus Higginbotham LPN * Telephone Encounter - Elvia Condon - 11/10/2022 1:53 PM EDT Patient has been identified by name and date of : Yes Requested Prescriptions Pending Prescriptions Disp Refills baclofen 20 mg tablet 30 tablet 5 Sig: Take 1 tablet by mouth daily at bedtime. gabapentin (NEURONTIN) 100 mg capsule 90 capsule 1 Sig: Take 1 capsule by mouth daily at bedtime for 180 days. For leg cramps metFORMIN ER (GLUCOPHAGE XR) 500 mg 24 hr tablet 120 tablet 5 Sig: Take 2 in the morning with breakfast and two in the evening. tamsulosin (FLOMAX) 0.4 mg 90 capsule 1 Sig: Take 1 capsule by mouth daily at bedtime. Bringing good RX coupon. pioglitazone (ACTOS) 45 mg tablet 90 tablet 1 Sig: Take 1 tablet by mouth once daily. losartan-hydroCHLOROthiazide (HYZAAR) 50-12.5 mg per tablet 90 tablet 1 Sig: Take 1 tablet by mouth once daily. glimepiride (AMARYL) 4 mg tablet 180 tablet 1 Sig: Take 1 tablet by mouth twice daily with meals. Flurbiprofen 100 mg tablet 60 tablet 5 Sig: TAKE ONE TABLET BY MOUTH TWICE DAILY FOR ARTHRITIS RX INSTRUCTIONS: Patient aware RX will be sent to pharmacy. No need to notify patient. Elvia Condon documented in this encounterKe[facility]04-11-2023 Miscellaneous Notes* Telephone Encounter - César Merrill MD - 08/08/2022 10:44 AM EDT The following approved medication requests have been transmitted electronically. Requested Prescriptions Signed Prescriptions Disp Refills metFORMIN ER (GLUCOPHAGE XR) 500 mg 24 hr tablet 120 tablet 5 Sig: Take 2 in the morning with breakfast and two in the evening. Authorizing Provider: CÉSAR MERRILL MD * Telephone Encounter - Trang Vanessa MA - 08/08/2022 10:32 AM EDT [facility] 05/31/22 NOV 11/28/22 Trang Vanessa MA * Telephone Encounter - Shima Ramon - 08/08/2022 9:49 AM EDT Patient has been identified by name and date of : Yes Requested Prescriptions Pending Prescriptions Disp Refills metFORMIN ER (GLUCOPHAGE XR) 500 mg 24 hr tablet 120 tablet 5 Sig: Take 2 in the morning with breakfast and two in the evening. RX INSTRUCTIONS: Patient aware RX will be sent to pharmacy. No need to notify patient. Shima Ramon documented in this encounterKe[facility]03-09-2023 History of Present illness Narrative* Diamond Cain MA - 07/06/2022 2:55 PM EST Scan on 07/04/2022 11:06 AM by External Provider: Consultation - Cardiology Scan on 07/04/2022 11:54 AM by External Provider: Chemistry Diamond Cain MA documented in this encounterKe[facility]02-01-2023 Instructions* Patient Instructions* César Merrill MD - 05/31/2022 8:12 AM EST Please bring in copies of your living ramos and durable power of attorney general for health care. documented in this encounterKe[facility]02-[facility]-2023 History of Present illness Narrative* César Merrill MD - 05/31/2022 7:46 AM EST Chief Complaint Patient presents with: Physical HPI Katharine Cano is a 77 year old male who presents here today for Physical. Patient with Hx of CAD, HTN, DM 2, hyperlipidemia, KARLA, BPH, nocturnal leg cramps as well as those reviewed and addressed below and in ROS. Patient has been doing ok. No new issues. Hearing getting worse. Does wear hearing aids. Past medical history, appointments, medications, allergies reviewed. Previous Medical History PAST MEDICAL HISTORY Diagnosis Date Advance directive discussed with patient 11/15/2021 Discussed 10/2021 Benign prostatic hyperplasia without lower urinary tract symptoms 12/11/2016 Coronary atherosclerosis 05/02/2007 COVID-19 virus infection 01/18/202112/2020 Diabetic eye exam (HCC) 01/11/2017 Last Done: 12/09/2018, No Retinopathy Ex-smoker 12/11/2016 Started at age 17 yo, Up to 7-10 pipes a day. Quite at age 53, US 11/2015 neg for AAA History of coronary artery stent placement 12/19/2012 Hypertension, essential 12/11/[address] 11/15/2021 DPA: Wilfredo (son) Mixed hyperlipidemia 11/07/2005 Nocturnal leg cramps 02/22/2018 KARLA (obstructive sleep apnea) 12/19/2012 Phimosis 12/11/2016 Previous Surgical History PAST SURGICAL HISTORY Procedure Laterality Date 2D ECHO (EXEP) 11/19/2018 EF 55%, stage 1 Diast Dysf, NO change from 04/2011 ARTHRP KNE CONDYLE&PLATU MEDIAL&LAT COMPARTMENTS Right ARTHRP KNE CONDYLE&PLATU MEDIAL&LAT COMPARTMENTS Left FECAL OCCULT BLOOD TEST 05/26/2019 negative PAST SURGICAL HISTORY OF 07/09/2017 right carpal tunnel repair PAST SURGICAL HISTORY OF 09/2017 C6, C7 block and plates STRESS TEST 09/27/2017 negative Family History FAMILY HISTORY Problem Relation Age of Onset Coronary Artery Disease Father after CABG at 81 Cancer Sister renal Kidney Disease Brother other (Lavon's) Brother Cancer Brother Coronary Artery Disease Paternal Uncle 70's COPD No Family History Cystic Fibrosis No Family History Patient Allergies ALLERGIES Allergen Reactions Diovan [Valsartan] Cough Crestor [Rosuvastat* Other: See Comments rash and sore muscles Metformin Diarrhea Zinc Intolerance chest pain Current Medications Current Outpatient Medications on File Prior to Visit Medication Sig baclofen (LIORESAL) 20 mg tablet Take 1 tablet by mouth daily at bedtime. gabapentin (NEURONTIN) 100 mg capsule Take 1 capsule by mouth daily at bedtime for 180 days. For leg cramps tamsulosin (FLOMAX) 0.4 mg Take 1 capsule by mouth daily at bedtime. Bringing good RX coupon. metFORMIN ER (GLUCOPHAGE XR) 500 mg 24 hr tablet Take 2 in the morning with breakfast and two in the evening. Flurbiprofen 100 mg tablet TAKE ONE TABLET BY MOUTH TWICE DAILY FOR ARTHRITIS losartan-hydroCHLOROthiazide (HYZAAR) 50-12.5 mg per tablet Take 1 tablet by mouth once daily. pioglitazone (ACTOS) 45 mg tablet Take 1 tablet by mouth once daily. glimepiride (AMARYL) 4 mg tablet Take 1 tablet by mouth twice daily with meals. nitroglycerin sublingual (NITROQUICK) 0.4 mg SL tablet Dissolve 1 tablet under the tongue as directed. EVERY 5 MIN X3 atenolol (TENORMIN) 25 mg tablet Take 1 tablet by mouth once daily. Per [facility] ERGOCALCIFEROL, VITAMIN D2, (VITAMIN D2 ORAL) Take 2,000 Units by mouth. simvastatin (ZOCOR) 80 mg tablet Take 1 tablet by mouth daily at bedtime. Per Dr. Barba Aspirin 81 mg ORAL Tab 2 tablets daily No current facility-administered medications on file prior to visit. Social History Social History Tobacco Use Smoking status: Former Years: 35.00 Types: Cigarettes Start date: 1963 Quit date: 07/29/1997 Years since quittin.8 Smokeless tobacco: Former Substance Use Topics Alcohol use: No Drug use: No Review of Symptoms REVIEW OF SYSTEMS GENERAL: No weight loss, malaise or fevers HEENT: Negative for frequent or significant headaches, No changes in hearing or vision, no nose bleeds or other nasal problems NECK: Negative for lumps, goiter, pain and significant neck swelling RESPIRATORY: Negative for cough, hemoptysis, wheezing, COPD, or shortness of breath. Slight dyspneawith stairs but has been stable from past. CARDIOVASCULAR: Negative for chest pain, increased leg swelling, hypertension, CHF or palpitations GI: No nausea, vomiting, or diarrhea, No heartburn or reflux symptoms, and no blood : No history of dysuria, blood MUSCULOSKELETAL: Negative for new or changes in his typical joint pain or swelling, back pain or muscle pain SKIN: Negative for lesions, rash, and itching PSYCH: Negative for sleep disturbance, mood disorder and recent psychosocial stressors HEMATOLOGY/LYMPHOLOGY: Negative for prolonged bleeding, bruising easily or swollen nodes ENDOCRINE: Negative for cold or heat intolerance, symptoms of low BS's NEURO: No history of headaches, syncope, paralysis, seizures or tremors EXAM: BP 132/68 (BP Site: Left Arm, BP Position: Sitting, BP Cuff Size: Large Adult) Pulse 64 Resp 16 Ht 165.1 cm (5' 5) Wt 100.7 kg (222 lb) BMI 36.94 kg/m Last 5 Encounter Wt Readings: Date: Wt: 05/31/2022 100.7 kg (222 lb) 11/15/2021 98.4 kg (217 lb) 09/23/2021 96.2 kg (212 lb) 09/19/2021 93.4 kg (206 lb) 05/12/2021 90.3 kg (199 lb) General Appearance: Well appearing, alert, in no acute distress, well-hydrated, well nourished. andObese. Skin: Skin color, texture, turgor normal, no suspicious rashes or lesions. Head: Normocephalic, no masses, lesions, tenderness or abnormalities. Eyes: Anicteric sclera. Pupils are equally round and reactive to light. Extraocular movements are intact. . Ears: External ears normal, canals clear. Neck: Supple, no adenopathy; thyroid symmetric, normal size, no bruits. Lungs: Lungs clear to auscultation. No wheezing, rhonchi, rales.. Heart: RRR without murmur, gallop, or rubs. No ectopy. Abdomen: Normal abdominal exam, Abdomen soft, non-tender. Bowel sounds normal. No masses, organomegaly. Has an umbilical hernia. Extremities: No deformities, edema, skin discoloration, clubbing or cyanosis. Good capillary refill. . Musculoskeletal: Muscular strength intact, No joint swelling, deformity, or tenderness. Peripheral Pulses: Normal. Neurologic: Gait normal. Reflexes normal and symmetric. Sensation grossly intact.. Genitalia: Normal, Penis normal. No urethral discharge. Scrotum normal to palpation. No hernia.. Rectal: Normal exam. Prostate enlarged but smooth firm capsule. Health Maintenance List INFLUENZA(1) due on 12/29/2021 ADVANCE DIRECTIVE DISCUSSION due on 04/30/2022 DEPRESSION ASSESSMENT Never done HBA1C due on 05/18/2022 DIABETIC FOOT EXAM due on 05/12/2022 FECAL OCCULT BLOOD due on 06/05/2022 SHINGRIX VACCINE(2 of 2) due on 11/15/2022 COVID-19 VACCINE(1) due on 11/15/2022 URINE ALBUMIN:CREATININE RATIO due on 11/15/2022 LDL CHOLESTEROL due on 11/15/2022 ANNUAL PCP TEAM CHRONIC DISEASE VISIT due on 11/15/2022 BP CONTROLLED (<130/80) due on 11/15/2022 DILATED RETINAL EXAM due on 03/16/2023 DTAP,TDAP,TD(3 - Td or Tdap) due on 10/27/2030 PNEUMOCOCCAL: 65+ Completed HEPATITIS C SCREENING Discontinued Data reviewed A/P ASSESSMENT/PLAN: 1. Well adult exam - ICD9: V70.0, ICD10: Z00.00 (primary diagnosis) - Counseled on healthy diet and regular exercise - Discussed need for and benefit of weight loss. BMI 36.94 kg/(m^2) - Patient was counseled [id number] by myself (the billing provider) for the following immunizations and vaccine components, including side effects: Influenza. Patient consents for immunization and understands risks and benefits. A VIS sheet on each immunization was given to the patient. - Follow up for annual exam in one year Check - FECAL OCCULT BLOOD TEST - PSA/PROSTSPECAG DIAG 2. Type 2 diabetes mellitus without complication, without long-term current use of insulin (HCC) - ICD9: 250.00, ICD10: E11.9 - will await labs to see if any changes needed. - Continue current medications - Encouraged regular aerobic exercise and weight loss - BP goal of <130/80 - LDL goal of <100 Check - HGB A1C - ALBUMIN/CREAT RATIO RND UR - COMP METABOLIC PANEL - URINALYSIS, WITH MICROSCOPIC - LIPID PANEL, NONFASTING - CBC + DIFF 3. Diabetic eye exam (HCC) - ICD9: V72.0, 250.00, ICD10: Z01.00, E11.9 - up to date 4. Hypertension, essential - ICD9: 401.9, ICD10: I10 - good control - Continue current medication(s) - Recommended regular aerobic exercise. - Recommend home blood pressure monitoring, to bring results in on next visit - Goal of BP <130/80 Check - COMP METABOLIC PANEL - URINALYSIS, WITH MICROSCOPIC - LIPID PANEL, NONFASTING 5. Mixed hyperlipidemia - ICD9: 272.2, ICD10: E78.2 - to be determined upon return of lab results - Encouraged following a low fat, low cholesterol diet. - Discussed the benefits of regular aerobic exercise and weight loss. - Encouraged following a low carbohydrate, healthy oil intake diet. - Continue current therapy. Check - COMP METABOLIC PANEL - URINALYSIS, WITH MICROSCOPIC - LIPID PANEL, NONFASTING 6. 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 - ICD9: 414.01, ICD10: I25.10 - clinically stable. No changes and cont f/u with cardio 7. KARLA (obstructive sleep apnea) - ICD9: 327.23, ICD10: G47.33 - wearing CPAP nightly with benefit. 8. Benign prostatic hyperplasia with urinary frequency - ICD9: 600.01, 788.41, ICD10: N40.1, R35.0 - stable 9. Osteoarthritis of multiple joints, unspecified osteoarthritis type - ICD9: 715.89, ICD10: M15.9 - stable 10. Advance directive discussed with patient - ICD9: V65.49, ICD10: Z71.89 - patient to bring in copies 11. Encounter for immunization - ICD9: V03.89, ICD10: Z23 - INFLUENZA SEASONAL QUADRIVALENT HIGH DOSE AGE 65+: given 12. Screening for colon cancer - ICD9: V76.51, ICD10: Z12.11 Check - FECAL OCCULT BLOOD TEST 13. Prostate disorder - ICD9: 602.9, ICD10: N42.9 Check - PSA/PROSTSPECAG DIAG Requested Prescriptions Signed Prescriptions Disp Refills losartan-hydroCHLOROthiazide (HYZAAR) 50-12.5 mg per tablet 90 tablet 1 Sig: Take 1 tablet by mouth once daily. pioglitazone (ACTOS) 45 mg tablet 90 tablet 1 Sig: Take 1 tablet by mouth once daily. glimepiride (AMARYL) 4 mg tablet 180 tablet 1 Sig: Take 1 tablet by mouth twice daily with meals. F/u 6 months routine César Merrill MD documented in this encounterKe[facility]01-09-[facility]23 Miscellaneous Notes* Telephone Encounter - Diamond Cain MA - 05/08/2022 12:24 PM EST Patient has been identified by name and date of : Yes Requested Prescriptions Pending Prescriptions Disp Refills baclofen (LIORESAL) 20 mg tablet 30 tablet 5 Sig: Take 1 tablet by mouth daily at bedtime. gabapentin (NEURONTIN) 100 mg capsule 90 capsule 1 Sig: Take 1 capsule by mouth daily at bedtime for 180 days. For leg cramps tamsulosin (FLOMAX) 0.4 mg 90 capsule 1 Sig: Take 1 capsule by mouth daily at bedtime. Bringing good RX coupon. RX INSTRUCTIONS: Patient aware RX will be sent to pharmacy. No need to notify patient. Diamond Cain MA Vinod: 10/2021 Nov: 05/2022 Last refill 10/2021 * Telephone Encounter - Shima Ramon - 05/08/2022 12:13 PM EST Patient has been identified by name and date of : Yes Requested Prescriptions Pending Prescriptions Disp Refills baclofen (LIORESAL) 20 mg tablet 30 tablet 5 Sig: Take 1 tablet by mouth daily at bedtime. gabapentin (NEURONTIN) 100 mg capsule 90 capsule 1 Sig: Take 1 capsule by mouth daily at bedtime for 180 days. For leg cramps tamsulosin (FLOMAX) 0.4 mg 90 capsule 1 Sig: Take 1 capsule by mouth daily at bedtime. Bringing good RX coupon. RX INSTRUCTIONS: Patient aware RX will be sent to pharmacy. No need to notify patient. Shima Ramon documented in this encounterKe[facility]12-12-2022 Miscellaneous Notes* Telephone Encounter - Mary Portillo LPN - 04/10/2022 10:54 AM EST Order for overnight oximetry faxed to [facility]. Mary Portillo LPN * Telephone Encounter - Meggan Milligan PA-C - 04/10/2022 10:52 AM EST Printed order for nocturnal oximetry on RA with CPAP. Please FAX to [facility]. Meggan Milligan PA-C * Telephone Encounter - Mary Portillo LPN - 04/05/2022 10:03 AM EST VINOD 03/2021. Patient was requiring 2L at night. Mary Portillo LPN * Telephone Encounter - Karina Mcdonough LPN - 04/05/2022 9:56 AM EST Atlashlee, patients son, called. Verified name and date of of patient. Adelaida states he has been trying to get [employer] to [employer] that patient no longer uses and was told by them yesterday a referral is needed sent to [employer] [facility] [employer]. Karina Mcdonough LPN documented in this encounterKeen[facility]10-14-2022 Miscellaneous Notes* Telephone Encounter - Diamond Cain MA - 02/10/2022 10:13 AM EDT Patient has been identified by name and date of : Yes Requested Prescriptions Pending Prescriptions Disp Refills metFORMIN ER (GLUCOPHAGE XR) 500 mg 24 hr tablet 120 tablet 5 Sig: Take 2 in the morning with breakfast and two in the evening. Flurbiprofen 100 mg tablet 60 tablet 5 Sig: TAKE ONE TABLET BY MOUTH TWICE DAILY FOR ARTHRITIS RX INSTRUCTIONS: Patient aware RX will be sent to pharmacy. No need to notify patient. Diamond Cain MA Vinod: 10/2021 Nov: 05/2022 Last refill; 07/2021 * Telephone Encounter - Jdaa Solomon - 02/10/2022 9:38 AM EDT Patient has been identified by name and date of : Yes Last office visit in this department: 11/15/2021 RX INSTRUCTIONS: Patient aware RX will be sent to pharmacy. No need to notify patient. Patient phones requesting refills as follows: Requested Prescriptions Pending Prescriptions Disp Refills metFORMIN ER (GLUCOPHAGE XR) 500 mg 24 hr tablet 120 tablet 5 Sig: Take 2 in the morning with breakfast and two in the evening. Flurbiprofen 100 mg tablet 60 tablet 5 Sig: TAKE ONE TABLET BY MOUTH TWICE DAILY FOR ARTHRITIS Please review and advise. Jada Newton Pss documented in this encounterKeen[facility]07-21-2022 Miscellaneous Notes* Telephone Encounter - May Doe Ma - 11/17/2021 9:47 AM EDT Left detailed message on son Adelaida Cano confidential vm May Doe Ma * Telephone Encounter - César Merrill MD - 11/16/2021 9:23 PM EDT Let patient know urine testing, CBC, lipid panel and CMP were all ok. A1c is improved at 7% down from 9.7%. Will not make any further changes at this time to see if dietcan further lower this. (see Tejal's TE to discuss with him with her dementia) documented in this encounterKeenan [facility]07-19-2022 History of Present illness Narrative* César Merrill MD - 11/15/2021 8:40 AM EDT Chief Complaint Patient presents with: Recheck HPI Katharine Cano is a 76 year old male who presents here today for 6 month follow up. Patient with Hx of CAD, HTN, DM 2, hyperlipidemia, KARLA, BPH, nocturnal leg cramps as well as those reviewed and addressed below and in ROS. Patient continues to see cardio and has an appt in the near future. Patient continues to use his CPAP at night. The flomax has been helpful in reducing the urine frequency. The baclofen and Neurontinhave been controlling his nocturnal leg cramps. Past medical history, appointments, medications, allergies reviewed. Previous Medical History PAST MEDICAL HISTORY Diagnosis Date Benign prostatic hyperplasia without lower urinary tract symptoms 12/11/2016 Coronary atherosclerosis 05/02/2007 COVID-19 virus infection 01/18/202112/2020 Diabetic eye exam (HCC) 01/11/2017 Last Done: 12/09/2018, No Retinopathy Ex-smoker 12/11/2016 Started at age 17 yo, Up to 7-10 pipes a day. Quite at age 53, [place] 11/2015 neg for AAA History of coronary artery stent placement 12/19/2012 Hypertension, essential 12/11/2016 Mixed hyperlipidemia 11/07/2005 Nocturnal leg cramps 02/22/2018 KARLA (obstructive sleep apnea) 12/19/2012 Phimosis 12/11/2016 Previous Surgical History PAST SURGICAL HISTORY Procedure Laterality Date 2D ECHO (EXEP) 11/19/2018 EF 55%, stage 1 Diast Dysf, NO change from 04/2011 ARTHRP KNE CONDYLE&PLATU MEDIAL&LAT COMPARTMENTS Right ARTHRP KNE CONDYLE&PLATU MEDIAL&LAT COMPARTMENTS Left FECAL OCCULT BLOOD TEST 05/26/2019 negative PAST SURGICAL HISTORY OF 07/09/2017 right carpal tunnel repair PAST SURGICAL HISTORY OF 09/2017 C6, C7 block and plates STRESS TEST 09/27/2017 negative Family History FAMILY HISTORY Problem Relation Age of Onset Coronary Artery Disease Father after CABG at 81 Cancer Sister renal Kidney Disease Brother other (Lavon's) Brother Cancer Brother Coronary Artery Disease Paternal Uncle 70's COPD No Family History Cystic Fibrosis No Family History Patient Allergies ALLERGIES Allergen Reactions Diovan [Valsartan] Cough Crestor [Rosuvastat* Other: See Comments rash and sore muscles Metformin Diarrhea Zinc Intolerance chest pain Current Medications Current Outpatient Medications on File Prior to Visit Medication Sig glimepiride (AMARYL) 4 mg tablet Take 1 tablet by mouth twice daily with meals. metFORMIN ER (GLUCOPHAGE XR) 500 mg 24 hr tablet Take 2 in the morning with breakfast and two in the evening. losartan-hydroCHLOROthiazide (HYZAAR) 50-12.5 mg per tablet Take 1 tablet by mouth once daily. pioglitazone (ACTOS) 45 mg tablet Take 1 tablet by mouth once daily. tamsulosin (FLOMAX) 0.4 mg Take 1 capsule by mouth daily at bedtime. Bringing good RX coupon. Flurbiprofen 100 mg tablet TAKE ONE TABLET BY MOUTH TWICE DAILY FOR ARTHRITIS gabapentin (NEURONTIN) 100 mg capsule Take 1 capsule by mouth daily at bedtime for 180 days. For leg cramps nitroglycerin sublingual (NITROQUICK) 0.4 mg SL tablet Dissolve 1 tablet under the tongue as directed. EVERY 5 MIN X3 atenolol (TENORMIN) 25 mg tablet Take 1 tablet by mouth once daily. Per [facility] baclofen (LIORESAL) 20 mg tablet Take 1 tablet by mouth daily at bedtime. ERGOCALCIFEROL, VITAMIN D2, (VITAMIN D2 ORAL) Take 2,000 Units by mouth. Muweymvrrih-Xsmgwyjyj-Hbl C-Mn (GLUCOSAMINE CHONDROITIN MAXSTR) 500-400 mg cap Take 1 capsule by mouth twice daily. simvastatin (ZOCOR) 80 mg tablet Take 1 tablet by mouth daily at bedtime. Per Dr. Barba Cinnamon Bark (CINNAMON) 500 mg cap Take 500 mg by mouth. Ophxhshxnhlue-Fhyluvlt-Bhumew (CENTRUM SILVER) Tab Take 1 tablet by mouth once daily. Aspirin 81 mg ORAL Tab 2 tablets daily No current facility-administered medications on file prior to visit. Social History Social History Tobacco Use Smoking status: Former Smoker Years: 35.00 Start date: 1963 Quit date: 07/29/1997 Years since quittin.3 Smokeless tobacco: Former User Substance Use Topics Alcohol use: No Drug use: No Review of Symptoms REVIEW OF SYSTEMS GENERAL: No weight loss, malaise or fevers NECK: Negative for lumps, goiter, pain and significant neck swelling RESPIRATORY: Negative for cough, hemoptysis, wheezing, COPD, dyspnea or shortness of breath CARDIOVASCULAR: Negative for chest pain, increased leg swelling, hypertension, CHF or palpitations GI: No nausea, vomiting, or diarrhea and No heartburn or reflux symptoms : No history of dysuria, no blood. See HPI MUSCULOSKELETAL: see HPI ENDOCRINE: Negative for symptoms of low BS's NEURO: No history of syncope, paralysis, seizures or tremors. Has the occasional headache. EXAM: BP 132/84 Pulse 78 Resp 14 Wt 98.4 kg (217 lb) BMI 36.15 kg/m Last 6 Encounter Wt Readings: Date: Wt: 11/15/2021 98.4 kg (217 lb) 09/23/2021 96.2 kg (212 lb) 09/19/2021 93.4 kg (206 lb) 05/12/2021 90.3 kg (199 lb) 04/08/2021 90.7 kg (200 lb) 03/14/2021 89.8 kg (198 lb) General Appearance: Well appearing, alert, in no acute distress, well-hydrated, well nourished. andObese. Eyes: Anicteric sclera. Pupils are equally round and reactive to light. Extraocular movements are intact. . Neck: Supple, no adenopathy; thyroid symmetric, normal size, no bruits. Lungs: Lungs clear to auscultation. No wheezing, rhonchi, rales.. Heart: RRR without murmur, gallop, or rubs. No ectopy. Abdomen: Normal abdominal exam, Abdomen soft, non-tender. Bowel sounds normal. No masses, organomegaly. Extremities: No deformities, skin discoloration. 1+ pitting edema in both lower legs, stable Musculoskeletal: . Muscular strength intact, No joint swelling, deformity, or tenderness. Peripheral Pulses: Normal. Neurologic: Gait normal. Sensation to light touch and crainal nerves 2-12 intact.. Health Maintenance List COVID-19 VACCINE(1) Never done SHINGRIX VACCINE(2 of 2) due on 12/22/2020 ADVANCE DIRECTIVE DISCUSSION Never done HBA1C due on 08/10/2021 URINE ALBUMIN:CREATININE RATIO due on 10/27/2021 LDL CHOLESTEROL due on 10/27/2021 INFLUENZA(1) due on 12/29/2021 DILATED RETINAL EXAM due on 02/24/2022 DIABETIC FOOT EXAM due on 05/12/2022 FECAL OCCULT BLOOD due on 06/05/2022 ANNUAL PCP TEAM CHRONIC DISEASE VISIT due on 09/23/2022 BP CONTROLLED (<130/80) due on 09/23/2022 DTAP,TDAP,TD(3 - Td or Tdap) due on 10/27/2030 PNEUMOCOCCAL: 65+ Completed HEPATITIS C SCREENING Discontinued DEPRESSION SCREENING Discontinued Data reviewed Component Latest Ref Rng & Units 10/27/2020 WBC 3.70 - 11.00 k/uL 5.39 RBC 4.20 - 6.00 m/uL 4.22 Hemoglobin 13.0 - 17.0 g/dL 13.8 Hematocrit 39.0 - 51.0 % 41.0 MCV 80.0 - 100.0 fL 97.2 MCH 26.0 - 34.0 pG 32.7 MCHC 30.5 - 36.0 g/dL 33.7 RDW-CV 11.5 - 15.0 % 12.5 Platelet Count 150 - 400 k/uL 183 MPV 9.0 - 12.7 fL 10.1 Neut% % 52.5 Abs Neut (ANC) 1.45 - 7.50 k/uL 2.82 Lymph% % 31.2 Abs Lymph 1.00 - 4.00 k/uL 1.68 Nye% % 11.5 Abs Nye <0.87 k/uL 0.62 Eosin% % 3.9 Abs Eosin <0.46 k/uL 0.21 Baso% % 0.9 Abs Baso <0.11 k/uL 0.05 Nucleated Reds 0 /100 WBC 0.0 Absolute nRBC <0.01 k/uL <0.01 Diff Type Auto Diff Protein, Total 6.3 - 8.0 g/dL 6.8 Albumin 3.9 - 4.9 g/dL 4.0 Calcium 8.5 - 10.2 mg/dL 9.2 Bilirubin, Total 0.2 - 1.3 mg/dL 0.8 Alkaline Phosphatase 38 - 113 U/L 55 AST 14 - 40 U/L 33 Glucose 74 - 99 mg/dL 216 (H) BUN 9 - 24 mg/dL 14 Creatinine 0.73 - 1.22 mg/dL 0.78 Sodium 136 - 144 mmol/L 139 Potassium 3.7 - 5.1 mmol/L 4.1 Chloride 97 - 105 mmol/L 105 CO2 22 - 30 mmol/L 22 Anion Gap 9 - 18 mmol/L 12 ALT 10 - 54 U/L 36 eGFR- >60 eGFR-All Other Races . >60 Total Cholesterol, Nonfasting <200 mg/dL 97 Triglycerides, Nonfasting <150 mg/dL 117 HDL Cholesterol, Nonfasting >39 mg/dL 37 (L) LDL Cholesterol, Nonfasting <100 mg/dL 37 Non HDL Cholesterol, Nonfasting <130 mg/dL 60 VLDL Cholesterol, Nonfasting <30 mg/dL 23 Total Chol/HDL Ratio, Nonfasting <5.10 mg/dL 2.62 LDL/HDL Ratio, Nonfasting <2.54 mg/dL 1.00 Creatinine, Ur Random (UCRR) 20 - 300 mg/dL 142.9 Albumin, Urine Random mg/L 24.9 Albumin/Creat Ratio <30 mg/g 17 Hemoglobin A1C 4.3 - 5.6 % 8.7 (H) Estimated Average Glucose mg/dL 203 A/P ASSESSMENT/PLAN: 1. Type 2 diabetes mellitus without complication, without long-term current use of insulin ([facility]) - ICD9: 250.00, ICD10: E11.9 (primary diagnosis) - Will await labs to determine control and if changes needed. - Continue current medications - Encouraged regular aerobic exercise and weight loss - BP goal of <130/80 - LDL goal of <100 2. Diabetic eye exam (HCC) - ICD9: V72.0, 250.00, ICD10: Z01.00, E11.9 - Up to date 3. Hypertension, essential - ICD9: 401.9, ICD10: I10 - good control - Continue current medication(s) - Recommended regular aerobic exercise. - Recommend home blood pressure monitoring, to bring results in on next visit - Goal of BP <130/80 4. Mixed hyperlipidemia - ICD9: 272.2, ICD10: E78.2 - to be determined upon return of lab results - Encouraged following a low fat, low cholesterol diet. - Discussed the benefits of regular aerobic exercise and weight loss. - Encouraged following a low carbohydrate, healthy oil intake diet. - Continue current therapy. 5. 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 - ICD9: 414.01, ICD10: I25.10 - clinically stable no changes. Cont f/u with cardio 6. KARLA (obstructive sleep apnea) - ICD9: 327.23, ICD10: G47.33 - benefiting from oightly CPAP 7. Nocturnal leg cramps - ICD9: 327.52, ICD10: G47.62 Cont - GABAPENTIN 100 MG CAPSULE and baclofen. 8. Benign prostatic hyperplasia with urinary frequency - ICD9: 600.01, 788.41, ICD10: N40.1, R35.0 Cont - TAMSULOSIN 0.4 MG CAPSULE 9. Living will in place - ICD9: V49.89, ICD10: Z78.9 - Patient asked to bring in copies of living will and DPA 10. Advance directive discussed with patient - ICD9: V65.49, ICD10: Z71.89 - As per #9 Signed Prescriptions Disp Refills losartan-hydroCHLOROthiazide (HYZAAR) 50-12.5 mg per tablet 90 tablet 1 Sig: Take 1 tablet by mouth once daily. BRENNEN: No Flurbiprofen 100 mg tablet 60 tablet 5 Sig: TAKE ONE TABLET BY MOUTH TWICE DAILY FOR ARTHRITIS BRENNEN: No pioglitazone (ACTOS) 45 mg tablet 90 tablet 1 Sig: Take 1 tablet by mouth once daily. BRENNEN: No tamsulosin (FLOMAX) 0.4 mg 90 capsule 1 Sig: Take 1 capsule by mouth daily at bedtime. Bringing good RX coupon. BRENNEN: No gabapentin (NEURONTIN) 100 mg capsule 90 capsule 1 Sig: Take 1 capsule by mouth daily at bedtime for 180 days. For leg cramps BRENNEN: No glimepiride (AMARYL) 4 mg tablet 180 tablet 1 Sig: Take 1 tablet by mouth twice daily with meals. BRENNEN: No baclofen (LIORESAL) 20 mg tablet 30 tablet 5 Sig: Take 1 tablet by mouth daily at bedtime. BRENNEN: No nitroglycerin sublingual (NITROQUICK) 0.4 mg SL tablet 25 tablet 3 Sig: Dissolve 1 tablet under the tongue as directed. EVERY 5 MIN X3 BRENNEN: No F/u 6 months complete PE César Merrill MD documented in this encounterKeen[facility]05-31-2022 Miscellaneous Notes* Telephone Encounter - Demarcus Higginbotham LPN - 09/27/2021 8:46 AM EDT Pt's son advised of results. Demarcus Higginbotham LPN * Telephone Encounter - Katarzyna Munson PA-C - 09/27/2021 7:30 AM EDT Repeat calcium level is normal. Katarzyna Munson PA-C documented in this encounterKeenan [facility] Hospital05-27-2022 Instructions* Patient Instructions* Katarzyna Munson PA-C - 09/23/2021 11:21 AM EDT Repeat calcium labs today. Follow up as scheduled in October. Return sooner as needed. documented in this encounterKeenan [facility] Hospital05-27-2022 History of Present illness Narrative* Katarzyna Munson PA-C - 09/23/2021 11:14 AM EDT Chief Complaint Patient presents with: Recheck: labs done [facility] HPI Katharine Cano is a 76 year old male who presents here today for Above Complaints.. Patient was seen in [facility] on 09/19/21 for abdominal pain/nausea. Symptoms at that time had seemed to start improving but patient had some LLQ pain on exam so express care provider discussed with me and we had labs checked. Overall labs looked okay. Only mild elevation in sed rate. He is feeling better now. States that on 09/21 he was feeling pretty much back to normal. See labs below. Past medical history, appointments, medications, allergies reviewed. Previous Medical History PAST MEDICAL HISTORY Diagnosis Date Benign prostatic hyperplasia without lower urinary tract symptoms 12/11/2016 Coronary atherosclerosis 05/02/2007 COVID-19 virus infection 01/18/202112/2020 Diabetic eye exam (HCC) 01/11/2017 Last Done: 12/09/2018, No Retinopathy Ex-smoker 12/11/2016 Started at age 17 yo, Up to 7-10 pipes a day. Quite at age 53, US 11/2015 neg for AAA History of coronary artery stent placement 12/19/2012 Hypertension, essential 12/11/2016 Mixed hyperlipidemia 11/07/2005 Nocturnal leg cramps 02/22/2018 KARLA (obstructive sleep apnea) 12/19/2012 Phimosis 12/11/2016 Previous Surgical History PAST SURGICAL HISTORY Procedure Laterality Date 2D ECHO (EXEP) 11/19/2018 EF 55%, stage 1 Diast Dysf, NO change from 04/2011 ARTHRP KNE CONDYLE&PLATU MEDIAL&LAT COMPARTMENTS Right ARTHRP KNE CONDYLE&PLATU MEDIAL&LAT COMPARTMENTS Left FECAL OCCULT BLOOD TEST 05/26/2019 negative PAST SURGICAL HISTORY OF 07/09/2017 right carpal tunnel repair PAST SURGICAL HISTORY OF 09/2017 C6, C7 block and plates STRESS TEST 09/27/2017 negative Family History FAMILY HISTORY Problem Relation Age of Onset Coronary Artery Disease Father after CABG at 81 Cancer Sister renal Kidney Disease Brother other (Alvon's) Brother Cancer Brother Coronary Artery Disease Paternal Uncle 70's COPD No Family History Cystic Fibrosis No Family History Patient Allergies ALLERGIES Allergen Reactions Diovan [Valsartan] Cough Crestor [Rosuvastat* Other: See Comments rash and sore muscles Metformin Diarrhea Zinc Intolerance chest pain Current Medications Current Outpatient Medications on File Prior to Visit Medication Sig metFORMIN ER (GLUCOPHAGE XR) 500 mg 24 hr tablet Take 2 in the morning with breakfast and two in the evening. losartan-hydroCHLOROthiazide (HYZAAR) 50-12.5 mg per tablet Take 1 tablet by mouth once daily. pioglitazone (ACTOS) 45 mg tablet Take 1 tablet by mouth once daily. glimepiride (AMARYL) 4 mg tablet Take 1 tablet by mouth twice daily with meals. tamsulosin (FLOMAX) 0.4 mg Take 1 capsule by mouth daily at bedtime. Bringing good RX coupon. Flurbiprofen 100 mg tablet TAKE ONE TABLET BY MOUTH TWICE DAILY FOR ARTHRITIS nitroglycerin sublingual (NITROQUICK) 0.4 mg SL tablet Dissolve 1 tablet under the tongue as directed. EVERY 5 MIN X3 atenolol (TENORMIN) 25 mg tablet Take 1 tablet by mouth once daily. Per [facility] baclofen (LIORESAL) 20 mg tablet Take 1 tablet by mouth daily at bedtime. ERGOCALCIFEROL, VITAMIN D2, (VITAMIN D2 ORAL) Take 2,000 Units by mouth. Xdnjfdilqku-Kshwilfna-Bqk C-Mn (GLUCOSAMINE CHONDROITIN MAXSTR) 500-400 mg cap Take 1 capsule by mouth twice daily. simvastatin (ZOCOR) 80 mg tablet Take 1 tablet by mouth daily at bedtime. Per Dr. Barba Cinnamon Bark (CINNAMON) 500 mg cap Take 500 mg by mouth. Osimwibbdhbyq-Zygoosrf-Oxrsql (CENTRUM SILVER) Tab Take 1 tablet by mouth once daily. Aspirin 81 mg ORAL Tab 2 tablets daily gabapentin (NEURONTIN) 100 mg capsule Take 1 capsule by mouth daily at bedtime for 180 days. For leg cramps No current facility-administered medications on file prior to visit. Social History Social History Tobacco Use Smoking status: Former Smoker Years: 35.00 Start date: 1963 Quit date: 07/29/1997 Years since quittin.1 Smokeless tobacco: Former User Substance Use Topics Alcohol use: No Drug use: No Review of Symptoms REVIEW OF SYSTEMS see hpi EXAM: BP 110/60 (BP Site: Left Arm, BP Position: Sitting, BP Cuff Size: Large Adult) Pulse 68 Temp 36.9 C (98.5 F) Resp 16 Wt 96.2 kg (212 lb) BMI 35.32 kg/m General Appearance: Well appearing, alert, in no acute distress, well-hydrated, well nourished.. obese Lungs: Lungs clear to auscultation. No wheezing, rhonchi, rales.. Heart: RRR without murmur, gallop, or rubs. No ectopy. Abdomen: Normal abdominal exam, Abdomen soft, non-tender. Bowel sounds normal. No masses, organomegaly. Health Maintenance List SHINGRIX VACCINE(2 of 2) due on 12/22/2020 ADVANCE DIRECTIVE DISCUSSION Never done HBA1C due on 08/10/2021 COVID-19 VACCINE(1) due on 10/27/2021 URINE ALBUMIN:CREATININE RATIO due on 10/27/2021 LDL CHOLESTEROL due on 10/27/2021 BP CONTROLLED (<130/80) due on 10/27/2021 DILATED RETINAL EXAM due on 02/24/2022 DIABETIC FOOT EXAM due on 05/12/2022 ANNUAL PCP TEAM CHRONIC DISEASE VISIT due on 05/12/2022 FECAL OCCULT BLOOD due on 06/05/2022 DTAP,TDAP,TD(3 - Td or Tdap) due on 10/27/2030 INFLUENZA Completed PNEUMOCOCCAL: 65+ Completed HEPATITIS C SCREENING Discontinued DEPRESSION SCREENING Discontinued Data reviewed Component Latest Ref Rng & Units 09/19/2021 WBC 3.70 - 11.00 k/uL 7.49 RBC 4.20 - 6.00 m/uL 4.25 Hemoglobin 13.0 - 17.0 g/dL 14.5 Hematocrit 39.0 - 51.0 % 43.0 MCV 80.0 - 100.0 fL 101.2 (H) MCH 26.0 - 34.0 pg 34.1 (H) MCHC 30.5 - 36.0 g/dL 33.7 RDW-CV 11.5 - 15.0 % 13.3 Platelet Count 150 - 400 k/uL 274 MPV 9.0 - 12.7 fL 9.0 Neut% % 58.0 Abs Neut (ANC) 1.45 - 7.50 k/uL 4.35 Lymph% % 29.1 Abs Lymph 1.00 - 4.00 k/uL 2.18 Nye% % 10.7 Abs Nye <0.87 k/uL 0.80 Eosin% % 1.2 Abs Eosin <0.46 k/uL 0.09 Baso% % 0.7 Abs Baso <0.11 k/uL 0.05 Immature Gran % % 0.3 IMMATURE GRANS (ABS) <0.10 k/uL <0.03 NRBC /100 WBC 0.0 Absolute nRBC <0.01 k/uL <0.01 DTYPE Auto Protein, Total 6.3 - 8.0 g/dL 7.8 Albumin 3.9 - 4.9 g/dL 4.7 Calcium 8.5 - 10.2 mg/dL 10.4 (H) Bilirubin, Total 0.2 - 1.3 mg/dL 0.6 Alkaline Phosphatase 38 - 113 U/L 62 AST 14 - 40 U/L 20 ALT 10 - 54 U/L 17 Glucose 74 - 99 mg/dL 147 (H) BUN 9 - 24 mg/dL 25 (H) Creatinine 0.73 - 1.22 mg/dL 1.22 Sodium 136 - 144 mmol/L 139 Potassium 3.7 - 5.1 mmol/L 4.9 Chloride 97 - 105 mmol/L 100 CO2 22 - 30 mmol/L 27 Anion Gap 9 - 18 mmol/L 12 eGFR >=60 mL/min/1.73m 61 WSR 0 - 15 mm/hr 20 (H) CRP <0.9 mg/dL <0.3 ASSESSMENT/PLAN: 1. Generalized abdominal pain - ICD9: 789.07, ICD10: R10.84 (primary diagnosis) - Resolved F/u prn 2. Hypercalcemia - ICD9: 275.42, ICD10: E83.52 recheck - CALCIUM TOTAL BLD - PTH INTACT BLD Keep routine in October. Labs prior. Katarzyna Munson PA-C documented in [facility] encounter[facility] Miscellaneous Notes* Telephone Encounter - Zahra Currie LPN - 09/20/2021 7:53 AM EDT Left message on cell phone with results and recommendations-home number is a work number and he wasnot there today.Zahra Currie LPN * Telephone Encounter - Tiff Meadows APRN.COCO - 09/19/2021 7:52 PM EDT Sed rate is slightly elevated. Please attempt to call patient again in the morning of 09/20/21. Encourage him to keep his follow up appointment. * Telephone Encounter - Tiff Meadows APRN.CNP - 09/19/2021 6:41 PM EDT CBC, CMP (BUN is slightly elevated at 25) , and CRP are essentially normal The CRP is pending Attempted to call patient. No answer. VM message left requesting call back and directing him to keep his appointment tomorrow. documented in this encounterKe[facility]05-[facility]22 History of Present illness Narrative* César Ghotra APRN.CNP - 09/19/2021 10:05 AM EDT Subjective HPI Nontoxic-appearing male presents urgent care chief complaint transient abdominal pain. Duration of symptoms 5 days. Associated symptoms intermittent abdominal pain. Patient states abdominal pain improves in the morning and worsens throughout the day. States pain is worse after eating. States he hashad a few episodes of loose stool would not consider this diarrhea. States pain is slightly better today. Denies any blood in stool. No nausea no vomiting. Denies any fevers. No OTC medications. Denies any significant abdominal pain currently. Past medical history prescription medication use allergies reviewed. .Patient presents with: Diarrhea: abdominal cramping x 5 days PAST MEDICAL HISTORY Diagnosis Date Benign prostatic hyperplasia without lower urinary tract symptoms 12/11/2016 Coronary atherosclerosis 05/02/2007 COVID-19 virus infection 01/18/202112/2020 Diabetic eye exam (HCC) 01/11/2017 Last Done: 12/09/2018, No Retinopathy Ex-smoker 12/11/2016 Started at age 17 yo, Up to 7-10 pipes a day. Quite at age 53, [place] 11/2015 neg for AAA History of coronary artery stent placement 12/19/2012 Hypertension, essential 12/11/2016 Mixed hyperlipidemia 11/07/2005 Nocturnal leg cramps 02/22/2018 KARLA (obstructive sleep apnea) 12/19/2012 Phimosis 12/11/2016 PAST SURGICAL HISTORY Procedure Laterality Date 2D ECHO (EXEP) 11/19/2018 EF 55%, stage 1 Diast Dysf, NO change from 04/2011 ARTHRP KNE CONDYLE&PLATU MEDIAL&LAT COMPARTMENTS Right ARTHRP KNE CONDYLE&PLATU MEDIAL&LAT COMPARTMENTS Left FECAL OCCULT BLOOD TEST 05/26/2019 negative PAST SURGICAL HISTORY OF 07/09/2017 right carpal tunnel repair PAST SURGICAL HISTORY OF 09/2017 C6, C7 block and plates STRESS TEST 09/27/2017 negative ALLERGIES Diovan [Valsartan], Crestor [Rosuvastatin Calcium], Metformin, and Zinc MEDICATIONS metFORMIN ER (GLUCOPHAGE XR) 500 mg 24 hr tablet Take 2 in the morning with breakfast and two in the evening. losartan-hydroCHLOROthiazide (HYZAAR) 50-12.5 mg per tablet Take 1 tablet by mouth once daily. pioglitazone (ACTOS) 45 mg tablet Take 1 tablet by mouth once daily. glimepiride (AMARYL) 4 mg tablet Take 1 tablet by mouth twice daily with meals. tamsulosin (FLOMAX) 0.4 mg Take 1 capsule by mouth daily at bedtime. Bringing good RX coupon. Flurbiprofen 100 mg tablet TAKE ONE TABLET BY MOUTH TWICE DAILY FOR ARTHRITIS gabapentin (NEURONTIN) 100 mg capsule Take 1 capsule by mouth daily at bedtime for 180 days. For leg cramps nitroglycerin sublingual (NITROQUICK) 0.4 mg SL tablet Dissolve 1 tablet under the tongue as directed. EVERY 5 MIN X3 atenolol (TENORMIN) 25 mg tablet Take 1 tablet by mouth once daily. Per [facility] baclofen (LIORESAL) 20 mg tablet Take 1 tablet by mouth daily at bedtime. ERGOCALCIFEROL, VITAMIN D2, (VITAMIN D2 ORAL) Take 2,000 Units by mouth. Tucnksugjym-Ofxdcxftr-Kou C-Mn (GLUCOSAMINE CHONDROITIN MAXSTR) 500-400 mg cap Take 1 capsule by mouth twice daily. simvastatin (ZOCOR) 80 mg tablet Take 1 tablet by mouth daily at bedtime. Per Dr. Barba Cinnamon Bark (CINNAMON) 500 mg cap Take 500 mg by mouth. Qcgxymckugclt-Djojrfpl-Fipfgd (CENTRUM SILVER) Tab Take 1 tablet by mouth once daily. Aspirin 81 mg ORAL Tab 2 tablets daily FAMILY HISTORY Problem Relation Age of Onset Coronary Artery Disease Father after CABG at 81 Cancer Sister renal Kidney Disease Brother other (Lavon's) Brother Cancer Brother Coronary Artery Disease Paternal Uncle 70's COPD No Family History Cystic Fibrosis No Family History Social History Tobacco Use Smoking status: Former Smoker Years: 35.00 Start date: 1963 Quit date: 07/29/1997 Years since quittin.1 Smokeless tobacco: Former User Substance Use Topics Alcohol use: No Drug use: No BP 132/56 Pulse 92 Temp 37.1 C (98.7 F) Resp 16 Wt 93.4 kg (206 lb) SpO2 97% BMI 34.32 kg/m Review of Systems Constitutional: Negative for chills, fever and malaise/fatigue. HENT: Negative for congestion, ear discharge, ear pain, sinus pain and sore throat. Eyes: Negative for blurred vision, pain, discharge and redness. Respiratory: Negative for cough, hemoptysis, sputum production, shortness of breath, wheezing and stridor. Cardiovascular: Negative for chest pain. Gastrointestinal: Positive for abdominal pain and diarrhea. Negative for nausea and vomiting. Musculoskeletal: Negative for myalgias. Skin: Negative for itching and rash. Neurological: Negative for dizziness and headaches. Objective Physical Exam Constitutional: General: He is not in acute distress. Appearance: He is not diaphoretic. HENT: Head: Normocephalic. Mouth/Throat: Mouth: Mucous membranes are moist. Pharynx: Oropharynx is clear. No oropharyngeal exudate or posterior oropharyngeal erythema. Eyes: Conjunctiva/sclera: Conjunctivae normal. Pupils: Pupils are equal, round, and reactive to light. Cardiovascular: Rate and Rhythm: Normal rate and regular rhythm. Heart sounds: Normal heart sounds. Pulmonary: Effort: Pulmonary effort is normal. No tachypnea, accessory muscle usage or respiratory distress. Breath sounds: Normal breath sounds. No stridor. Abdominal: General: Bowel sounds are normal. There is no distension. Palpations: Abdomen is soft. Tenderness: There is no abdominal tenderness. There is no right CVA tenderness, left CVA tenderness, guarding or rebound. Hernia: A hernia is present. Comments: Umbilical hernia noted. No signs or symptoms of incarceration. Slight increased tenderness left upper/left lower quadrant. Musculoskeletal: Cervical back: Normal range of motion and neck supple. No rigidity or tenderness. Lymphadenopathy: Cervical: No cervical adenopathy. Skin: General: Skin is warm and dry. Neurological: Mental Status: He is alert and oriented to person, place, and time. ASSESSMENT/PLAN: 1. Abdominal pain, generalized - ICD9: 789.07, ICD10: - CBC + DIFF - COMP METABOLIC PANEL - SED RATE WESTERGREN - C-REACTIVE PROTEIN (CRP) Patient nontoxic-appearing. Vital signs within normal limits. Patient states pain is slightly better today than yesterday. Upon examination patient did not have a surgical abdomen. Will obtain a CBC CMP sed rate and CRP today. We will follow-up with PCP tomorrow. Appointment scheduled. Red flags for prompt reevaluation tonight discussed with patient and significant other. Will be seen in ED for any new or worsening symptoms. Patient/significant other verbalized understanding agrees with plan ofcare. César Ghotra APRN.COCO documented in this encounterKe[facility]04-12-2022 Miscellaneous Notes* Telephone Encounter - César Merrill MD - 08/09/2021 2:03 PM EDT The following approved medication requests have been transmitted electronically. Signed Prescriptions Disp Refills metFORMIN ER (GLUCOPHAGE XR) 500 mg 24 hr tablet 120 tablet 5 Sig: Take 2 in the morning with breakfast and two in the evening. BRENNEN: No Authorizing Provider: CÉSAR MERRILL MD * Telephone Encounter - May Doe Ma - 08/09/2021 1:00 PM EDT Patient last visit with PCP 05/12/21 Follow up appointment scheduled 11/15/21 May Doe Ma * Telephone Encounter - Elvia Condon - 08/09/2021 12:47 PM EDT Patient has been identified by name and date of : Yes Pending Prescriptions Disp Refills METFORMIN ER 500 MG TABLET,EXTENDED RELEASE 24 HR 120 tablet 5 Sig: Take 2 in the morning with breakfast and two in the evening. BRENNEN: No RX INSTRUCTIONS: Patient aware RX will be sent to pharmacy. No need to notify patient. Elvia Condon documented in this encounterKeen[facility]03-24-2022 History of Present illness Narrative* Demarcus Higginbotham LPN - 07/21/2021 9:35 AM EDT Scan on 07/21/2021 9:08 AM by External Provider: Chemistry documented in this encounterKeenan [facility]02-28-2022 Miscellaneous Notes* Telephone Encounter - Catarina Calvert Pss - 06/27/2021 12:20 PM EST Patient has been identified by name and date of : Yes Pending Prescriptions Disp Refills LOSARTAN 50 MG-HYDROCHLOROTHIAZIDE 12.5 MG TABLET 90 tablet 1 Sig: Take 1 tablet by mouth once daily. BRENNEN: No PIOGLITAZONE 45 MG TABLET 90 tablet 1 Sig: Take 1 tablet by mouth once daily. BRENNEN: No VINOD-05/12/21 Labs-06/07/21 NOV-11/15/21 RX INSTRUCTIONS:Patient is out of the losartan-hydrocholorothiazide. Patient is using new Pharmacy,please send both. Patient aware RX will be sent to pharmacy. No need to notify patient. Catarina Calvert Pss documented in this encounterKeenan [facility] Hospital10-15-2021 History of Present illness Narrative* Christine Hendrix, RT(R) - 02/11/2021 2:10 PM EDT Radiology Service Progress Note PATIENT NAME: Katharine Cano DATE OF SERVICE: February 11, 2021 TIME: 2:06 PM PATIENT IDENTITY VERIFICATION COMPLETED USING TWO (2) IDENTIFIERS: Name and Date of confirmedby patient verbally. FALL SCREENING: Has the patient had 2 falls in the last year or 1 fall with injury or currently using an Ambulatory Assistive Device (Walker, Cane, Wheelchair, Crutches, etc.)? No PATIENT GENDER DATA: Male PATIENT RELEVANT IMPLANT DATA REVIEWED: Yes RADIOLOGY DEPARTMENT: General X-ray: Exam(s) Completed: Chest X-Ray PERIPHERAL IV DATA: Not applicable SIGNED BY: RT Jessica(R) February 11, 2021 2:06 PM documented in this encounterKeenan [facility]04-01-1998 Evaluation note* Diagnosis Onset Date Resolution Status Essential hypertension acute Atherosclerotic heart diseas e of [place] coronary artery without angina pectoris chronic Hyperlipidemia chronic Stented coronary artery July, [facility] Work Phone: 1(851) 234-576004-01-1998 Evaluation note* Diagnosis Onset Date Resolution Status SEYMOUR (dyspnea on exertion) [place] Essential hypertension acute Hyperlipidemia chronic Nonrheumatic mitral (valve) prolapse chronic Stented coronary artery July, [facility] Work Phone: 1(274) 742-988104-01-1998 Evaluation note* Diagnosis Onset Date Resolution Status Essential hypertension acute Hyperlipidemia chronic Nonrheumatic mitral (valve) prolapse chronic Stented coronary artery July, [facility] Bradycardia acute First degree heart block acu te Hypoxia acute Lumbar stenosis acute Diabetes mellitus type II, controlled chronic Stented coronary artery July, [facility] Work Phone: Evaluation note* Diagnosis Abdominal pain, generalized- Primary [facility] Diagnosis Generalized abdominal pain- Primary Abdominal pain, generalized Hypercalcemia documented in this encounter [facility] note* Diagnosis Type 2 diabetes mellitus without complication, without long-term current use of insulin (HCC)- Primary Diabetic eye exam (HCC) Type II or unspecified type diabetes mellitus without mention of complication, not stated as uncontrolled Hypertension, essential Unspecified essential hypertension Mixed hyperlipidemia 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 KARLA (obstructive sleep apnea) Obstructive sleep apnea (adult) (pediatric) Nocturnal leg cramps Sleep related leg cramps Benign prostatic hyperplasia with urinary frequency Living will in place Advance directive discussed with patient Other specified counseling documented in this encounter [facility] note* Diagnosis Onset Date Resolution Status [place]OUR (dyspnea on exertion) [place] Essential hypertension acute Atherosclerotic heart diseas e of [place] coronary artery without angina pectoris chronic Hyperlipidemia chronic Nonrheumatic mitral (valve) prolapse chronic Stented coronary artery July, [facility] Work Phone: Evaluation note* Diagnosis Pneumonia due to COVID-19 virus- [facility] Diagnosis Nocturnal leg cramps Sleep related leg cramps Benign prostatic hyperplasia with urinary frequency [facility]* Diagnosis Well adult exam- Primary Routine general medical examination at a health care facility Type 2 diabetes mellitus without complication, without long-term current use of insulin (HCC) Diabetic eye exam (HCC) Type II or unspecified type diabetes mellitus without mention of complication, not stated as uncontrolled Hypertension, essential Unspecified essential hypertension Mixed hyperlipidemia 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 KARLA (obstructive sleep apnea) Obstructive sleep apnea (adult) (pediatric) Benign prostatic hyperplasia with urinary frequency Osteoarthritis of multiple joints, unspecified osteoarthritis type Advance directive discussed with patient Other specified counseling Encounter for immunization Need for other specified prophylactic vaccination against single bacterial disease Screening for colon cancer Special screening for malignant neoplasms, colon Prostate disorder Unspecified disorder of prostate [facility] Diagnosis Nocturnal leg cramps Sleep related leg cramps Benign prostatic hyperplasia with urinary frequency [facility]* Diagnosis Preop examination- Primary Preoperative examination, unspecified [facility]* Diagnosis Diabetic eye exam (HCC) Type II or unspecified type diabetes mellitus without mention of complication, not stated as uncontrolled [facility]* Diagnosis Hypoxemia- Primary History of COVID-19 [facility]* Diagnosis Well adult exam- Primary Routine general medical examination at a health care facility Type 2 diabetes mellitus without complication, without long-term current use of insulin (HCC) Diabetic eye exam (HCC) Type II or unspecified type diabetes mellitus without mention of complication, not stated as uncontrolled Hypertension, essential Unspecified essential hypertension Mixed hyperlipidemia 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 KARLA (obstructive sleep apnea) Obstructive sleep apnea (adult) (pediatric) Benign prostatic hyperplasia with urinary frequency Advance directive discussed with patient Other specified counseling Screening for colon cancer Special screening for malignant neoplasms, colon Prostate disorder Unspecified disorder of prostate Nocturnal leg cramps Sleep related leg cramps documented [facility]* Diagnosis Anemia, unspecified type- Primary [facility]* Diagnosis Vitamin B12 deficiency- Primary Other B-complex deficiencies [facility]* Diagnosis Pneumonia due to COVID-19 virus [facility]* Diagnosis Type 2 diabetes mellitus without complication, without long-term current use of insulin (HCC)- Primary Diabetic eye exam (HCC) Type II or unspecified type diabetes mellitus without mention of complication, not stated as uncontrolled Hypertension, essential Unspecified essential hypertension Mixed hyperlipidemia 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 KARLA (obstructive sleep apnea) Obstructive sleep apnea (adult) (pediatric) Vitamin B12 deficiency Other B-complex deficiencies Need for vaccination Need for prophylactic vaccination and inoculation against unspecified single disease Encounter for immunization Need for other specified prophylactic vaccination against single bacterial disease documented in this encounter [facility] note* Diagnosis URI, acute- Primary Acute upper respiratory infections of unspecified site documented [facility] encounter [facility]* Diagnosis Well adult exam- Primary Routine general medical examination at a health care facility Type 2 diabetes mellitus without complication, without long-term current use of insulin ([facility]) Diabetic eye exam (HCC) Type II or unspecified type diabetes mellitus without mention of complication, not stated as uncontrolled Hypertension, essential Unspecified essential hypertension Mixed hyperlipidemia 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 KARLA (obstructive sleep apnea) Obstructive sleep apnea (adult) (pediatric) Vitamin B12 deficiency Other B-complex deficiencies Benign prostatic hyperplasia with urinary frequency Nocturnal leg cramps Sleep related leg cramps Cyanosis Diminished pulses in lower extremity Other symptoms involving cardiovascular system Screening for depression Advance directive discussed with patient Other specified counseling Encounter for screening examination for other mental health and behavioral disorders documented in this encounter [facility] for referral (narrative)* Outpatient Procedure (Routine) - Pending Review Specialty Diagnoses / Procedures Referred By Sincere vivas [facility] Diagnoses Hypoxemia Procedures OXIMETRY WITH AMBULATION NONINVASIVE EAR/PULSE OXIMETRY May Alford MD [address] [place] [address] Respiratory [address] [facility] [place] [place] [address] Referral ID Status Reason Start Date Expiration Date Visits Requested Visits Authorized [id number] Pending Review Auto-Generat ed Referral 3 05/18/2024 1 1 [facility]No reason for referral information availableZearing Medical Services Work Phone: Chief Complaint and Reason for Visit Chief Complaint 1 y fu INT LABS Reason for Visit Essential hypertensi on Atherosclerotic heart disease of [place] coronary artery without angina pectoris Hyperlipidemia Stented coronary artery Chief Complaint 6 M FU DYSPNEA Reason for Visit SEYMOUR (dyspnea on exer tion) Essential hypertension Atherosclerotic heart disease of [place] coronary artery without angina pectoris Hyperlipidemia Nonrheumatic mitral (valve) prolapse Stented coronary artery Chief Complaint 6 M FU E ORDERS Reason for Visit SEYMOUR (dyspnea on exer tion) Essential hypertension Hyperlipidemia Nonrheumatic mitral (valve) prolapse Stented coronary artery Chief Complaint 9 M FU (Prev PFM) / Surg Clearance LUMBAR 3 - LUMBAR 4, LUMBAR 4 - LUM LUMBAR 3 - LUMBAR 4, LUMBAR 4 - LUM LUMBAR 3 - LUMBAR 4, LUMBAR 4 - LUM LUMBAR 3 - LUMBAR 4, LUMBAR 4 - LUM Reason for Visit Essential hypertensi on Hyperlipidemia Nonrheumatic mitral (valve) prolapse Stented coronary artery Bradycardia First degree heart block Hypoxia Lumbar stenosis Diabetes mellitus type II, controlled Stented coronary artery Chief Complaint Admit Date 9 M FU July 10, 2024 9:2 6am Severe PVD August 29, 2024 10:57a m Disorder of arteries and arterioles, uns pecified October 03, 2024 7:53am Discuss CTA October 09, 2024 2:55 pm Reason for Visit Admit Date Essential hypertension July 10, 2024 9:26am Atherosclerotic heart diseas e of [place] coronary artery without angina pectoris July 10, 2024 9:26am Hyperlipidemia July 10, 2024 9:2 6am PAOD (peripheral arterial occlusive dise ase) August 29, 2024 10:57am Reason for Visit Admit Date Essential hypertension July 10, 2024 9:26am Atherosclerotic heart diseas e of [place] coronary artery without angina pectoris July 10, 2024 9:26am Hyperlipidemia July 10, 2024 9:2 6am PAOD (peripheral arterial occlusive dise ase) August 29, 2024 10:57am Atherosclerosis of [place] 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, bilateral October 09, 2024 2:55pm Chief Complaint Admit Date 9 M FU July 10, 2024 9:2 6am Severe PVD August 29, 2024 10:57a m Disorder of arteries and arterioles, uns pecified October 03, 2024 7:53am Discuss CTA October 09, 2024 2:55 pm Surgical Clearance (See Note) October 29, 2024 10:17am Reason for Visit Admit Date Essential hypertension July 10, 2024 9:26am Atherosclerotic heart diseas e of [place] coronary artery without angina pectoris July 10, 2024 9:26am Hyperlipidemia July 10, 2024 9:2 6am PAOD (peripheral arterial occlusive dise ase) August 29, 2024 10:57am Atherosclerosis of [place] 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, bilateral October 09, 2024 2:55pm Essential hypertension October 29, 2024 10 :17am Preop cardiovascular exam October 29, 2024 10:17am Atherosclerotic heart diseas e of [place] coronary artery without angina pectoris October 29, 2024 10:17am Hyperlipidemia October 29, 2024 10:17 am Family History No Family History Records Found Relationship Condition Age at Onset Recorded Date/T fabio father Coronary artery disease Unknown mother Cardiac disease Unknown sister Malignant neoplasm of kidney Unknown Advance Directives No Advanced Directives Records Found Advance Directive Response Recorded Date/ Time Living Will No January 30 2:08pm Power of Industrial Waste Treatment Technician No January 30 021 2:08pm Advance Directive Response Recorded Date/ Time Name of Medical Power of Industrial Waste Treatment Technician SON April 12, 2023 4:00pm Living Will Yes April 12 023 4:00pm Power of Industrial Waste Treatment Technician Yes April 12, 2023 4:00pm Summary Purpose Additional Source Comments Source Comments (unrecognize d section and content) In the event this informatio n is protected by the Federal Confidentiality of Alcohol and Drug Abuse Patient Records regulations: The Federal rules restrict any use of the information to criminally investigate or prosecute any alcohol or drug abuse patient.[facility] the event this information is protected by the Federal Confidentiality of Alcohol and Drug Abuse Patient Records regulations: The Federal rules restrict any use of the information to criminally investigate or prosecute any alcohol or drug abuse patient.[facility] HospitalIn the event this information is protected by the Federal Confidentiality of Alcohol and Drug Abuse Patient Records regulations: The Federal rules restrict any use of the information to criminally investigate or prosecute any alcohol or drug abuse patient.[facility] HospitalIn the event this information is protected by the Federal Confidentiality of Alcohol and Drug Abuse Patient Records regulations: The Federal rules restrict any use of the information to criminally investigate or prosecute any alcohol or drug abuse patient.[facility] HospitalIn the event this information is protected by the Federal Confidentiality of Alcohol and Drug Abuse Patient Records regulations: The Federal rules restrict any use of the information to criminally investigate or prosecute any alcohol or drug abuse patient.[facility] HospitalIn the event this information is protected by the Federal Confidentiality of Alcohol and Drug Abuse Patient Records regulations: The Federal rules restrict any use of the information to criminally investigate or prosecute any alcohol or drug abuse patient.[facility] HospitalIn the event this information is protected by the Federal Confidentiality of Alcohol and Drug Abuse Patient Records regulations: The Federal rules restrict any use of the information to criminally investigate or prosecute any alcohol or drug abuse patient.[facility] HospitalIn the event this information is protected by the Federal Confidentiality of Alcohol and Drug Abuse Patient Records regulations: The Federal rules restrict any use of the information to criminally investigate or prosecute any alcohol or drug abuse patient.[facility] HospitalIn the event this information is protected by the Federal Confidentiality of Alcohol and Drug Abuse Patient Records regulations: The Federal rules restrict any use of the information to criminally investigate or prosecute any alcohol or drug abuse patient.[facility] HospitalIn the event this information is protected by the Federal Confidentiality of Alcohol and Drug Abuse Patient Records regulations: The Federal rules restrict any use of the information to criminally investigate or prosecute any alcohol or drug abuse patient.[facility] HospitalIn the event this information is protected by the Federal Confidentiality of Alcohol and Drug Abuse Patient Records regulations: The Federal rules restrict any use of the information to criminally investigate or prosecute any alcohol or drug abuse patient.[facility] HospitalIn the event this information is protected by the Federal Confidentiality of Alcohol and Drug Abuse Patient Records regulations: The Federal rules restrict any use of the information to criminally investigate or prosecute any alcohol or drug abuse patient.[facility] HospitalIn the event this information is protected by the Federal Confidentiality of Alcohol and Drug Abuse Patient Records regulations: The Federal rules restrict any use of the information to criminally investigate or prosecute any alcohol or drug abuse patient.[facility] HospitalIn the event this information is protected by the Federal Confidentiality of Alcohol and Drug Abuse Patient Records regulations: The Federal rules restrict any use of the information to criminally investigate or prosecute any alcohol or drug abuse patient.[facility] HospitalIn the event this information is protected by the Federal Confidentiality of Alcohol and Drug Abuse Patient Records regulations: The Federal rules restrict any use of the information to criminally investigate or prosecute any alcohol or drug abuse patient.[facility] HospitalIn the event this information is protected by the Federal Confidentiality of Alcohol and Drug Abuse Patient Records regulations: The Federal rules restrict any use of the information to criminally investigate or prosecute any alcohol or drug abuse patient.[facility] HospitalIn the event this information is protected by the Federal Confidentiality of Alcohol and Drug Abuse Patient Records regulations: The Federal rules restrict any use of the information to criminally investigate or prosecute any alcohol or drug abuse patient.[facility] HospitalIn the event this information is protected by the Federal Confidentiality of Alcohol and Drug Abuse Patient Records regulations: The Federal rules restrict any use of the information to criminally investigate or prosecute any alcohol or drug abuse patient.[facility] HospitalIn the event this information is protected by the Federal Confidentiality of Alcohol and Drug Abuse Patient Records regulations: The Federal rules restrict any use of the information to criminally investigate or prosecute any alcohol or drug abuse patient.[facility] HospitalIn the event this information is protected by the Federal Confidentiality of Alcohol and Drug Abuse Patient Records regulations: The Federal rules restrict any use of the information to criminally investigate or prosecute any alcohol or drug abuse patient.[facility] HospitalIn the event this information is protected by the Federal Confidentiality of Alcohol and Drug Abuse Patient Records regulations: The Federal rules restrict any use of the information to criminally investigate or prosecute any alcohol or drug abuse patient.[facility] HospitalIn the event this information is protected by the Federal Confidentiality of Alcohol and Drug Abuse Patient Records regulations: The Federal rules restrict any use of the information to criminally investigate or prosecute any alcohol or drug abuse patient.[facility] HospitalIn the event this information is protected by the Federal Confidentiality of Alcohol and Drug Abuse Patient Records regulations: The Federal rules restrict any use of the information to criminally investigate or prosecute any alcohol or drug abuse patient.[facility] HospitalIn the event this information is protected by the Federal Confidentiality of Alcohol and Drug Abuse Patient Records regulations: The Federal rules restrict any use of the information to criminally investigate or prosecute any alcohol or drug abuse patient.[facility] HospitalIn the event this information is protected by the Federal Confidentiality of Alcohol and Drug Abuse Patient Records regulations: The Federal rules restrict any use of the information to criminally investigate or prosecute any alcohol or drug abuse patient.[facility] HospitalIn the event this information is protected by the Federal Confidentiality of Alcohol and Drug Abuse Patient Records regulations: The Federal rules restrict any use of the information to criminally investigate or prosecute any alcohol or drug abuse patient.[facility] HospitalIn the event this information is protected by the Federal Confidentiality of Alcohol and Drug Abuse Patient Records regulations: The Federal rules restrict any use of the information to criminally investigate or prosecute any alcohol or drug abuse patient.[facility] HospitalIn the event this information is protected by the Federal Confidentiality of Alcohol and Drug Abuse Patient Records regulations: The Federal rules restrict any use of the information to criminally investigate or prosecute any alcohol or drug abuse patient.[facility] HospitalIn the event this information is protected by the Federal Confidentiality of Alcohol and Drug Abuse Patient Records regulations: The Federal rules restrict any use of the information to criminally investigate or prosecute any alcohol or drug abuse patient.[facility] HospitalIn the event this information is protected by the Federal Confidentiality of Alcohol and Drug Abuse Patient Records regulations: The Federal rules restrict any use of the information to criminally investigate or prosecute any alcohol or drug abuse patient.[facility] HospitalIn the event this information is protected by the Federal Confidentiality of Alcohol and Drug Abuse Patient Records regulations: The Federal rules restrict any use of the information to criminally investigate or prosecute any alcohol or drug abuse patient.[facility] HospitalIn the event this information is protected by the Federal Confidentiality of Alcohol and Drug Abuse Patient Records regulations: The Federal rules restrict any use of the information to criminally investigate or prosecute any alcohol or drug abuse patient.[facility] HospitalIn the event this information is protected by the Federal Confidentiality of Alcohol and Drug Abuse Patient Records regulations: The Federal rules restrict any use of the information to criminally investigate or prosecute any alcohol or drug abuse patient.[facility] HospitalIn the event this information is protected by the Federal Confidentiality of Alcohol and Drug Abuse Patient Records regulations: The Federal rules restrict any use of the information to criminally investigate or prosecute any alcohol or drug abuse patient.[facility] HospitalIn the event this information is protected by the Federal Confidentiality of Alcohol and Drug Abuse Patient Records regulations: The Federal rules restrict any use of the information to criminally investigate or prosecute any alcohol or drug abuse patient.[facility] HospitalIn the event this information is protected by the Federal Confidentiality of Alcohol and Drug Abuse Patient Records regulations: The Federal rules restrict any use of the information to criminally investigate or prosecute any alcohol or drug abuse patient.[facility] HospitalIn the event this information is protected by the Federal Confidentiality of Alcohol and Drug Abuse Patient Records regulations: The Federal rules restrict any use of the information to criminally investigate or prosecute any alcohol or drug abuse patient.[facility] HospitalIn the event this information is protected by the Federal Confidentiality of Alcohol and Drug Abuse Patient Records regulations: The Federal rules restrict any use of the information to criminally investigate or prosecute any alcohol or drug abuse patient.[facility] Reason for Visit (unrecogniz ed section and content) Reason Onset Date Comments Refill Request 06/27/2021 NEW PHARMACY Reason Comments Outside Labs Results Reason Onset Date Comments Refill Request 08/09/2021 Reason Comments Diarrhea abdominal cramping x 5 days Reason Comments Results Reason Comments Recheck labs done [facility] Reason Comments Recheck Reason Onset Date Comments Refill Request 02/10/2022 Reason Comments Orders Reason Onset Date Comments Refill Request 05/08/2022 Reason Comments Physical Specialty Diagnoses / Procedures Referred By Contac t Referred To Contact Diagnoses consult/test/treat Procedures consult/test/treat César Merrill MD [address] [place] [address] [facility] Dept Referral ID Status Reason Start Date Expiration Date Visits Requested Visits Authorized [id number] Authorized Patient Cleared - Qualified 100% FAS 11/28/2022 02/28/2023 99 99 Reason Comments Consult Consult to Cardiolog y/labs Reason Onset Date Comments Refill Request 08/08/2022 Reason Onset Date Comments Refill Request 11/10/2022 Reason Comments pre-op form Reason Comments Pre-Op Exam Surgery clearance fo r 04/12/23 by for back surgery Specialty Diagnoses / Procedures Referred By Contac t Referred To Contact Diagnoses consult/test/treat Procedures consult/test/treat César Merrill MD [address] [place] [address] [facility] [place] [address] Referral ID Status Reason Start Date Expiration Date V isits Requested Visits Authorized [id number] Closed Patient Cleared - Qualified 100% FAS 11/28/2022 02/28/2023 99 99 Reason Comments Hospital F/U Specialty Diagnoses / Procedures Referred By Contac t Referred To Contact [facility] Diagnoses [facility] Hosp discharge oxygen levels dropped after surgery was discharged with O2 Procedures hosp follow up Self [facility] [address] [place] [address] Referral ID Status Reason Start Date Expiration Date Visits Requested Visits Authorized [id number] Authorized Patient Cleared - Qualified 100% FAS 07/15/2023 99 99 Specialty Diagnoses / Procedures Referred By Contac t Referred To Contact Family Medicine / FAMILY MEDICINE Diagnoses [facility] FOLLOW UP-COVID/PNEUMONIA DISCHARGED 02/02 Procedures 4C EST HOSP/ER FU Self Terry Sullivan, VACUUM DRIER OPERATOR.COMPOSITE BOAT BUILDER, DNP [address] [place] [address] Referral ID Status Reason Start Date Expiration Date V isits Requested Visits Authorized [id number] Closed Patient Cleared - Qualified 100% FAS 02/11/2021 05/12/2021 99 99 Reason Comments 6 Month Exam Specialty Diagnoses / Procedures Referred By Contac t Referred To Contact Family Medicine / FAMILY MEDICINE Diagnoses 6 month follow up Procedures 4C EST César Merrill MD [address] [place] [address] César Merrill MD [address] [place] [address] Referral ID Status Reason Start Date Expiration Date Visits Requested Visits Authorized [id number] Authorized Patient Cleared - Qualified 100% FAS 05/14/2024 99 99 Reason Comments Chest Congestion cough x 3 days Reason Comments Outside Diabetic Eye Exam Reason Onset Date Comments Refill Request 07/18/2024 Reason Comments Physical Specialty Diagnoses / Procedures Referred By Contac t Referred To Contact Family Medicine / [facility] Diagnoses cough, chest congestion Procedures EST SAME DAY Self Deysi Cain APRN.COMPOSITE BOAT BUILDER [address] [place] [address] Phone: tel: fax: Referral ID Status Reason Start Date Expiration Date Visits Requested Visits Authorized [id number] Authorized Patient Cleared - Qualified 100% FAS 06/10/2024 09/08/2024 99 99 Reason Comments Patient Update Reason Comments Outside Vascular Reason Onset Date Comments Refill Request 09/10/2024 Reason Onset Date Comments Refill Request 10/14/2024 Reason Comments Results Outside results Care Teams (unrecognized sec tion and content) Furnace Attendant Relationship Specialty Start Date End Date César Merrill MD [address] [place], [place] [id number] PCP - General Family Practice 12/11/16 Furnace Attendant Relationship Specialty Start Date End Date César Merrill MD [address] [place] [address] PCP - General Family Practice 12/11/16 Furnace Attendant Relationship Specialty Start Date End Date César Merrill MD [address] [place], [place] [id number] [phone] PCP - General Family Practice 12/11/16 Furnace Attendant Relationship Specialty Start Date End Date Cés[place] [address] [place] [address] [phone] PCP - General Family Practice 12/11/16 Furnace Attendant Relationship Specialty Start Date End Date César Merrill MD [address] [facility] [address] PCP - General Family Practice 12/11/16 Furnace Attendant Relationship Specialty Start Date End Date César Merrill MD [address] [facility] [address] PCP - General Family Practice 12/11/16 Furnace Attendant Relationship Specialty Start Date End Date César Merrill MD [address] [facility] [address] PCP - General Family Practice 12/11/16 Furnace Attendant Relationship Specialty Start Date End Date César Merrill MD [facility] [address] PCP - General Family Practice 12/11/16 Furnace Attendant Relationship Specialty Start Date End Date César Merrill MD [address] [facility] [address] PCP - General Family Medicine 12/11/16 Furnace Attendant Relationship Specialty Start Date End Date César Merrill MD [address] [facility] [address] PCP - General Family Medicine 12/11/16 Furnace Attendant Relationship Specialty Start Date End Date César Merrill MD [facility] [address] PCP - General Family Medicine 12/11/16 Furnace Attendant Relationship Specialty Start Date End Date César Merrill MD [address] [facility] [address] PCP - General Family Medicine 12/11/16 Furnace Attendant Relationship Specialty Start Date End Date César Merrill MD [facility] [address] PCP - General Family Medicine 12/11/16 Team Status: Active Member Role Status Dates Dr. César Merrill MD Family Provider Active Dr. César Merrill MD Primary Care Provider Active Team Status: Inactive Member Role Status Dates Dr. César Merrill MD Primary Care Provider, Referri ng Provider Active January Loera [facility], [facility]C Attending Provider Active Team Status: Inactive Member Role Status Dates Dr. César Merrill MD Primary Care Provider Active January Loera [facility], [facility] Attending Provider, Patrick gregory Active Furnace Attendant Relationship Specialty Start Date End Date César Merrill MD [address] [place] [address] PCP - General Family Medicine 12/11/16 Furnace Attendant Relationship Specialty Start Date End Date César Merrill MD [address] [place] [address] PCP - General Family Medicine 12/11/16 Furnace Attendant Relationship Specialty Start Date End Date César Merrill MD [address] [place] [address] PCP - General Family Medicine 12/11/16 Furnace Attendant Relationship Specialty Start Date End Date César Merrill MD [address] [place] [address] PCP - General Family Medicine 12/11/16 Furnace Attendant Relationship Specialty Start Date End Date César Merrill MD [address] [place] [address] PCP - General Family Medicine 12/11/16 Furnace Attendant Relationship Specialty Start Date End Date César Merrill MD [address] [place] [address] PCP - General Family Medicine 12/11/16 Furnace Attendant Relationship Specialty Start Date End Date César Merrill MD [address] [place] [address] PCP - General Family Medicine 12/11/16 Furnace Attendant Relationship Specialty Start Date End Date César Merrill MD [address] [place] [address] PCP - General Family Medicine 12/11/16 Furnace Attendant Relationship Specialty Start Date End Date César Merrill MD [address] [place] [address] PCP - General Family Medicine 12/11/16 Furnace Attendant Relationship Specialty Start Date End Date César Merrill MD [address] [place] [address] PCP - General Family Medicine 12/11/16 Furnace Attendant Relationship Specialty Start Date End Date César Merrill MD [address] [place] [address] PCP - General Family Medicine 12/11/16 Team Status: Inactive Member Role Status Dates Dr. César Merrill MD Primary Care Provider, Referri ng Provider Active Rayna Jessica PA, PA Attending Provider Active Team Status: Active Member Role Status Dates Dr. César Merrill MD Primary Care Provider Active Dr. César Tijerina DO Admit Provider, R eferring Provider, Other Provider Active Dr. Gogo Santizo MD Attending Provider, Other Provid er Active Team Status: Active Member Role Status Dates Dr. César Merrill MD Primary Care Provider Active Dr. César Tijerina DO Admit Provider, R eferring Provider, Other Provider Active Dr. Gogo Santizo MD Other Provider Active Dr. Lenore Robledo DO Attending Provider, Other Provide r Active Team Status: Inactive Member Role Status Dates Dr. César Merrill MD Primary Care Provider Active Dr. César Tijerina DO Admit Provider, A ttending Provider, Referring Provider Active Dr. Gogo Santizo MD Other Provider Active Dr. Lenore Robledo DO Other Provider Active Furnace Attendant Relationship Specialty Start Date End Date César Merrill MD [address] [place] [address] PCP - General Family Medicine 12/11/16 Fartun Knight, BOBBY.COMPOSITE BOAT BUILDER [address] [place] [address] Dye Mixer Family Medicine 04/05/24 Katarzyna Munson PA-C [address] [place] [address] [facility]24 Furnace Attendant Relationship Specialty Start Date End Date César Merrill MD [address] [place] [address] PCP - General Family Medicine 12/11/16 Fartun Knight, BOBBY.COMPOSITE BOAT BUILDER [address] [place] [address] Dye Mixer Family Medicine 04/05/24 Katarzyna Munson PA-C [address] [place] [address] Dye Mixer Family Medicine 04/05/24 Furnace Attendant Relationship Specialty Start Date End Date César Merrill MD [address] [place] [address] PCP - General Family Medicine 12/11/16 Fartun Knight, BOBBY.COMPOSITE BOAT BUILDER [address] [place] [address] Dye Mixer Family Medicine 04/05/24 Katarzyna Munson PA-C [address] [facility] [address] Dye Mixer Family Medicine 04/05/24 Furnace Attendant Relationship Specialty Start Date End Date César Merrill MD [address] [facility] [address] PCP - General Family Medicine 12/11/16 Fartun Knight, BOBBY.COMPOSITE BOAT BUILDER [address] [place] [address] Dye Mixer Family Medicine 04/05/24 Katarzyna Munson PA-C [address] [place] [address] Dye Mixer Family Medicine 04/05/24 Furnace Attendant Relationship Specialty Start Date End Date César Merrill MD [address] [place] [address] PCP - General Family Medicine 12/11/16 Fartun Knight, BOBBY.COMPOSITE BOAT BUILDER [address] [place] [address] Dye Mixer Family Medicine 04/05/24 Katarzyna Munson PA-C [address] [facility] [address] Dye Mixer Family Medicine 04/05/24 Furnace Attendant Relationship Specialty Start Date End Date César Merrill MD [address] [place] [address] PCP - General Family Medicine 12/11/16 08/03/24 César Merrill MD [address] [place] [address] [place] [address] PCP - General Family Medicine 08/04/24 Fartun Knight APRN.COMPOSITE BOAT BUILDER [address] [place] [address] Dye Mixer Family Medicine 04/05/24 Katarzyna Munson PA-C [address] [place] [address] Dye Mixer Family Medicine 04/05/24 Furnace Attendant Relationship Specialty Start Date End Date César Merrill MD [address] [place] [address] PCP - General Family Medicine 08/04/24 Fartun Knight APRN.COMPOSITE BOAT BUILDER [address] [place] [address] Dye Mixer Family Medicine 04/05/24 Katarzyna Munson PA-C [address] [place] [address] Dye Mixer Family Medicine 04/05/24 Furnace Attendant Relationship Specialty Start Date End Date César Merrill MD [address] [place] [address] PCP - General Family Medicine 08/04/24 Fartun Knight APRN.COMPOSITE BOAT BUILDER [address] [place] [address] Dye Mixer Family Medicine 04/05/24 Katarzyna Munson PA-C [address] [place] [address] Dye Mixer Family Medicine 04/05/24 Team Status: Active Member Role Status Dates Dr. César Merrill MD Primary Care Provider Active Team Status: Inactive Member Role Status Dates Dr. César Merrill MD Primary Care Provider Active Start: July 10, 2024 End: July 10, 2024 Dr. César Merrill MD Referring Provider Active Start: July 10, 2024 End: July 10, 2024 Dr. London Tobar MD Attending Provider Active Start: July 10, 2024 End: July 10, 2024 Team Status: Inactive Member Role Status Dates Dr. César Merrill MD Primary Care Provider Active Start: August 29, 2024 End: August 29, 2024 Dr. César Merrill MD Referring Provider Active Start: August 29, 2024 End: August 29, 2024 STEPHEN Toth Attending Provider Active Star t: August 29, 2024 End: August 29, 2024 Team Status: Active Member Role Status Dates Dr. César Merrill MD Primary Care Provider Active Start: October 03, 2024 STEPHEN Toth Attending Provider Active Star t: October 03, 2024 STEPHEN Toth Referring Provider Active Star t: October 03, 2024 Team Status: Inactive Member Role Status Dates Dr. César Merrill MD Primary Care Provider Active Start: October 09, 2024 End: October 09, 2024 Dr. César Merrill MD Referring Provider Active Start: October 09, 2024 End: October 09, 2024 Dr. Lenny Taylor MD Attending Provider Active S tart: October 09, 2024 End: October 09, 2024 Team Status: Inactive Member Role Status Dates Dr. César Merrill MD Primary Care Provider Active Start: October 03, 2024 End: October 03, 2024 STEPHEN Toth Attending Provider Active Star t: October 03, 2024 End: October 03, 2024 STEPHEN Toth Referring Provider Active Star t: October 03, 2024 End: October 03, 2024 Furnace Attendant Relationship Specialty Start Date End Date César Merrill MD [address] [place] [id number] PCP - General Family Medicine 08/04/24 Fartun Knight APRN.COMPOSITE BOAT BUILDER [facility] [place] [address] Dye Mixer Family Medicine 09/29/24 Katarzyna Munson PA-C [facility] [place] [address] Dye Mixer Family Medicine 09/29/24 Furnace Attendant Relationship Specialty Start Date End Date César Merrill MD [address] [place] [id number] PCP - General Family Medicine 08/04/24 Fartun Knight APRN.COMPOSITE BOAT BUILDER [address] [place] [id number] Dye Mixer Family Medicine 09/29/24 Katarzyna Munson PA-C [address] [place] [id number] Dye Mixer Family Medicine 09/29/24 Furnace Attendant Relationship Specialty Start Date End Date César Merrill MD [address] [place] [id number] PCP - General Family Medicine 08/04/24 Fartun Knight APRN.COMPOSITE BOAT BUILDER [address] [place] [id number] Dye Mixer Family Medicine 09/29/24 Katarzyna Munson PA-C [address] [place] [id number] Dye Mixer Family Medicine 09/29/24 Team Status: Active Member Role/Relationship Status Dates Dr. César Merrill MD Primary Care Provider Active Team Status: Inactive Member Role/Relationship Status Dates Dr. César Merrill MD Primary Care Provider Active Start: July 10, 2024 End: July 10, 2024 Dr. César Merrill MD Referring Provider Active Start: July 10, 2024 End: July 10, 2024 Dr. London Tobar MD Attending Provider Active Start: July 10, 2024 End: July 10, 2024 Team Status: Inactive Member Role/Relationship Status Dates Dr. César Merrill MD Primary Care Provider Active Start: August 29, 2024 End: August 29, 2024 Dr. César Merrill MD Referring Provider Active Start: August 29, 2024 End: August 29, 2024 STEPHEN Toth Attending Provider Active Star t: August 29, 2024 End: August 29, 2024 Team Status: Inactive Member Role/Relationship Status Dates Dr. César Merrill MD Primary Care Provider Active Start: October 03, 2024 End: October 03, 2024 STEPHEN Toth Attending Provider Active Star t: October 03, 2024 End: October 03, 2024 STEPHEN Toth Referring Provider Active Star t: October 03, 2024 End: October 03, 2024 Team Status: Inactive Member Role/Relationship Status Dates Dr. César Merrill MD Primary Care Provider Active Start: October 09, 2024 End: October 09, 2024 Dr. César Merrill MD Referring Provider Active Start: October 09, 2024 End: October 09, 2024 Dr. Lenny Taylor MD Attending Provider Active S tart: October 09, 2024 End: October 09, 2024 Team Status: Inactive Member Role/Relationship Status Dates Dr. César Merrill MD Primary Care Provider Active Start: October 29, 2024 End: October 29, 2024 Dr. César Merrill MD Referring Provider Active Start: October 29, 2024 End: October 29, 2024 Trey Malagon [facility], [facility] Attending Provider Active S tart: October 29, 2024 End: October 29, 2024 Goals (unrecognized section and content) Goals may be documented in a n alternate sectionGoals may be documented in an alternate sectionGoals may be documented in an alternate sectionGoals may be documented in an alternate sectionGoals may be documented in an alternate sectionGoals may be documented in an alternate section (unrecognized sect ion and content) No Status Records FoundNo Status Records FoundNo Status Records Found INFORMATION SOURCE (unrecogn ized section and content) DATE CREATED AUTHOR 08/17/2023 [facility] DATE CREATED AUTHOR AUTHOR'S ORGANIZ ATION 10/20/2024 [facility] DATE CREATED AUTHOR AUTHOR'S ORGANIZ ATION 10/31/2024 [facility] FOR RECORDS PERTAINING TO PATIENTS WHO ARE OR HAVE BEEN ENROLLED IN A CHEMICAL DEPENDENCY/SUBSTANCEABUSE PROGRAM, SOME INFORMATION MAY BE OMITTED. This clinical summary was aggregated from multiple sources. Caution should be exercised in using it in the provision of clinical care. This summary normalizes information from multiple sources, and as a consequence, information in this document may materially change the coding, format and clinical context of patient data. In addition, data may be omitted in some cases. CLINICAL DECISIONS SHOULD BE BASED ON THE PRIMARY CLINICAL RECORDS. [facility] [employer] provides no warranty or guarantee of the accuracy or completeness of information in this document.
--- OUTSIDE RECORDS SUMMARY | 2024-11-06 02:56 | XMS RPT_ITS | CCD ---
Author Organization [facility] ion Partnership [facility] Care Team Providers Care Unit Assembler Name Role Phone Padma Baker Unavailable Unavailable [...] Referring Provider Dilshad, Dr. Lindsey Other Provider Sukhdev, Dr. Bowens Attending Provider Dr. Gogo Santizo Other Provider Dr. Lenore Robledo Attending Provider Dr. Lenore Robledo Other Provider [facility] MEDICAL SOCIAL WORKER.LOOSE HAND PACKER, Fartun Unavailable Arpit SHI, Katarzyna Unavailable César Merrill MD Primary Care Provider Desirae BAIN, César Rascon Primary Care Provider Desirae BAIN, Dr. Lindsey Primary Care Provider [phone] Dr. César Merrill MD Referring Provider Dr. London Tobar MD Attending Provider Sloane Villela Attending Provider Sloane Villela Referring Provider Dr. Lenny Taylor MD Attending Provider [facility] MEDICAL SOCIAL WORKER.LOOSE HAND PACKER, Fartun Unavailable Arpit SHI Katarzyna Unavailable DESIRAE, [...] (5 sources) rosuvastatin drug allergy 1 Rash [facility] Work Phone: (20 sources) metFORMIN; Translations: [METFORMIN] Drug Allergy 6 Diarrhea [facility] Work Phone: (20 sources) rosuvastatin; Translations: [ROSUVASTATIN CALCIUM] Drug Allergy 7 Other: See Comments [facility] Work Phone: (20 sources) valsartan; Translations: [VALSARTAN] Drug Allergy 5 Cough [facility] (20 sources) Zinc; Translations: [ZINC] Drug Allergy 5 Intolerance [facility] Work Phone: (7 sources) rosuvastatin Drug Allergy 2 [facility] (1 source) rosuvastatin Drug Allergy 5 [facility] Repository Medications Current Medications Medication Drug Class(es) [...] TBEC One tablet by mouth daily ASPIRIN 08201233337 Mirna Weeks Start: 08-26-2010 take 1 tablet by lobito th once daily ADULT ASPIRIN EC LOW STRENGTH 81 MG TBEC One tablet by mouth daily ASPIRIN 69633187250 Mirna Weeks Start: 08-26-2010 take 2 tablets by mo [facility] once daily ASPIRIN 81 MG TABS Two tablets by mouth daily ASPIRIN 60438368839 Madie Kearney Start: 11-01-2006 take 1 tablet by lobito th in the morning Aspirin 81 mg ORAL Tab Take 81 mg by mouth. Take (2) tablets in the morning 0 11/01/2006 Active Start: 11-01-2006 take 2 tablets by mo [facility] once daily Aspirin 81 mg ORAL Tab [...] TABS One tablet by mouth daily ATENOLOL 09220035439 Terry Barba MD Comment on above: Take [...] on above: Take 1 capsule by mo [facility] daily at bedtime for 180 days. For [...] TABS One tablet by mouth daily CYANOCOBALAMIN 76689550720 Terry Barba MD Comment on above: Take [...] TABS One tablet by mouth daily CHOLECALCIFEROL 41228871909 Terry Barba MD chondroitin sulfates 400 mg / glucosamine hydrochloride 500 mg oral capsule (11 sources) Start: 12-11-2016 End: 11-15-2021 take 1 capsule by mouth twice daily Shfljomihbt-Ibsrdutir-Htj C-Mn (GLUCOSAMINE CHONDROITIN MAXSTR) 500-400 mg cap Take 1 capsule by mouth twice daily. 12/11/2016 11/15/2021 Discontinued (Discontinued by Patient) Start: 08-26-2010 take 1 tablet by lobito th once daily GLUCOSAMINE-CHONDROITIN CAPS One tablet by mouth daily GLUCOSAMINE-CHONDROITIN CAPS 35299851304 Madie Kearney Start: 08-26-2010 take 1 tablet by lobito th once daily GLUCOSAMINE-CHONDROITIN CAPS One tablet by mouth daily GLUCOSAMINE-CHONDROITIN CAPS 62735803521 Madie Kearney Start: 08-26-2010 take 1 tablet by lobito th once daily GLUCOSAMINE-CHONDROITIN CAPS One tablet by mouth daily GLUCOSAMINE-CHONDROITIN CAPS 37360987639 Madie Kearney Comment on above: Take 1 [...] One tablet by mouth twice daily FLURBIPROFEN 27307670157 Madie Kearney Comment on above: TAKE ONE TABLET BY M OUTH TWICE DAILY FOR ARTHRITIS TAKE ONE TABLET BY M OUTH TWICE DAILY FOR ARTHRITIS, as needed folic acid 1 mg oral tablet (10 sources) Start: 1 End: 2 take 2 tablets by mouth once daily FOLIC ACID 1 MG TABS Two tablets by mouth daily FOLIC ACID 94824625693 Ray Guajardo MD glimepiride 4 mg oral [...] TABS One tablet by mouth daily GLIMEPIRIDE 68403543556 Terry Barba MD Comment on above: Take 1 tablet by lobito th twice daily with meals. Take 1 tablet by lobito th two times a day with meals. Ejebjexavap-Cbxztxhep-Rca C-Mn (GLUCOSAMINE CHONDROITIN MAXSTR) 500-400 mg cap (3 sources) Start: 2016 take 1 capsule by mouth twice daily Hokrjmlzuso-Tksboysgz-Bw t C-Mn (GLUCOSAMINE CHONDROITIN MAXSTR) 500-400 mg cap Take 1 capsule by mouth twice daily. 0 12/11/2016 Active Comment on above: Take 1 capsule by mo [facility] twice daily. hydroCHLOROthiazide 12.5 mg oral tablet [...] Comment on above: Take 1 tablet by [facility] once daily. 200 actuat ipratropium bromide 0.017 mg/actuat metered dose inhaler (4 sources) Anticholinergic Start: 04-14-2023 End: 07-10-2024 Ipratropium [place] (Atrovent Hfa) 17 mcg/actuation HFA aerosol inhaler [...] One tablet by mouth daily LOSARTAN POTASSIUM 46128833348 Rayna Jessica PA-C 24 hr metFORMIN hydrochloride [...] tablet by mouth twice daily METFORMIN HCL 65068430143 Terry Barba MD Comment on above: Take 2 in the mornin g with breakfast and two in the evening. MULTIPLE VITAMIN (2 sources) Start: 08-26-2010 take 1 tablet by mouth once daily MULTIVITAMINS TABS One tablet by mouth daily MULTIPLE VITAMIN 59426549076 Madie Kearney MULTIPLE VITAMIN (3 sources) Start: 08-26-2010 take 1 tablet by mouth once daily MULTIVITAMINS TABS One tablet by mouth daily MULTIPLE VITAMIN 31879733731 Madie Kearney Start: 08-26-2010 take 1 tablet by lobito th once daily MULTIVITAMINS TABS One tablet by mouth daily MULTIPLE VITAMIN 74474686437 Madie Kearney Multivitamin tablet (3 sources) Start: 08-18-2017 End: 01-11-2022 Multivitamin tablet Discontinued 1 {tbl} PO daily August 18, 2017 12:00am January 11, 2022 10:10am Idyewuritrsds-Ybdrjzuk-D utein (CENTRUM SILVER) Tab (9 sources) Start: 10-21-2012 End: 11-15-2021 take 1 tablet by mouth once daily Multivitamins-Minerals- Lutein (CENTRUM SILVER) Tab Take 1 tablet by mouth once daily. 1 tablet 0 10/21/2012 11/15/2021 Discontinued (Discontinued by Patient) Start: 10-21-2012 take 1 tablet by lobito th once daily Extrnybwgnswj-Ujeqdpzf-Pqcmom (CENTRUM SILVER) Tab Take 1 tablet by [...] 5 min up to 3 X NITROGLYCERIN [id number] Ray Guajardo MD Comment on above: Dissolve 1 tablet un clayton the tongue as directed. EVERY 5 MIN X3 orphenadrine citrate 100 mg oral tablet (5 sources) Muscle Relaxant Start: 1 take 1 tablet by mouth at bedtime NORFLEX SOLN 100mg, One tablet by mouth at bedtime. ORPHENADRINE CITRATE SOLN 51097412055 Madie Kearney predniSONE 10 mg oral tablet [...] Coronary arteriosclerosis; Translations: [Atherosclerotic heart disease of red devil coronary artery without angina pectoris] Onset: 05-02-2007 [...] Chronic Comment on above: Arterial study from [facility] 08/21/24:R WILMA 0.25 with monophasic waveformsL [...] (3 sources) Long-term drug therapy; Translations: [Other intermodal dispatcher (current) drug therapy] Onset: 08-26-2010 08-26-2010 Viral [...] to mid RCA per Dr. Tobar @ [facility] Genitourinary symptoms and ill-defined conditions (20 sources) Increased frequency of urination; Translations: [Frequency of micturition] Onset: 10-27-2019 10-27-2019 Episodic Immunizations and screening for infectious disease (3 sources) Vaccination needed; Translations: [Encounter for immunization] Onset: 02-14-2024 02-14-2024 Episodic Nutritional deficiencies (19 sources) Cobalamin deficiency; Translations: [Deficiency of other specified B group vitamins] Onset: 08-16-2023 08-16-2023 Episodic Other aftercare (2 sources) Other intermodal dispatcher (current) drug therapy; Translations: [Other retirement (current) drug therapy] Onset: 08-26-2010 08-26-2010 Episodic [...] Facility Cardiology Visit Reporton Cardiology Visit Report [facility] [address] [place] [address] OFFICE VISIT Date of Service: 10/29/24 MR#: [id number] Acct: [id number] Name: KAHTARINE CANO Rep #: [id number] : 1945 Provider: CONRADO moyer Age/Sex: 79/M Location: [facility] [place] Status: Signed HPI HPI History of Present Illness Details: Patient is a very pleasant 79-year-old Christianity white male that comes in today for [...] Intake Visit Reasons: Surgical Clearance (See Note) Oven Press Tender Required: No Accompanied by: Is patient in [...] artery ( 08/01/97) Atherosclerotic heart disease of red devil coronary artery without angina pectoris Diabetes mellitus [...] SOB orthopne (more content not included)... Normal [facility] MR/BMSAllie 10-09-2024 MR/BMSKAREN [facility] Vascular Surgery [address] [place] [address]. [address] [place] [address] OFFICE VISIT Date of Service: 10/09/24 MR#: [id number] Acct: [id number] Name: JEROME,KATHARINE Galvin Rep #: [id number] : 1945 Provider: Dr. Lenny Taylor MD Age/Sex: 79/M Location: [facility] Status: Signed Intake Vital Signs [...] artery ( 08/01/97) Atherosclerotic heart disease of red devil coronary artery without angina pectoris Diabetes mellitus [...] No emphysema (more content not included)... Normal [facility] CREATININE FINGERSTICKon Creatinine [Mass/Vol] 1.4 mg/dL High 0.70-1.30 [facility] Comment on above: Performed By: #### L 9100.0200 #### [facility] Laboratory [address] [place], [address] GFR/1.73 sq M.predicted among non-blacks MDRD (S/P/Bld) [Vol rate/Area] 51.0000 mL/min/{1.73_m2} Low >60 [facility] Comment on above: Performed By: #### L 9100.0200 #### [facility] [address] [place], [address] CTA Abd w/Runoff W/WO Contra ston 10-03-2024 CTA Abd w/Runoff W/WO Contrast [facility] Imaging Services [address] [facility] [place], [place] [address] CTA Abd w/Runoff W/WO Contrast MR#: [id number] Acct: [id number] Name: KATHARINE CANO Rep #: [id number] : 1945 M 79 From: Gloria weiner MD PCP: Dr. César Merrill MD Status: REG CLI Study: CTA Abd w/Runoff W/WO Contrast Date of Exam: 0 10/03/24 Exam# [id number] Ordering Dr: Sloane Rush PROCEDURE: CTA ABD [...] Contrast IMPRESSION: Atherosclerosis. Multifocal stenosis. Reading Location: [place] [address] CC: STEPHEN Toth; Dr. César Merrill MD Pick Up Driver: Signed Normal [facility] Creatinine measurement at dsideOrdered By: Sloane Rush on 10-03-2024 Creatinine [Mass/Vol] 1.4 mg/dL High 0.70-1.30 [facility] EGFROrdered By: Sloane Rush on 10-03-2024 GFR/1.73 sq M.predicted among non-blacks MDRD (S/P/Bld) [Vol rate/Area] 51.0000 mL/min/{1.73_m2} Low >60 [facility] MR/Vinod 08-29-2024 /SEVERINO.SALVADOR [facility] [place] [facility] [address] [place] [address] OFFICE VISIT Date of Service: 08/29/24 MR#: [id number] Acct: [id number] Name: KATHARINE CANO Rep #: [id number] : 1945 Provider: STEPHEN Toth Age/Sex: 79/M Location: [facility] [place] Status: Signed Intake Vital Signs 07/10/24 09:30 [...] Reasons: Severe PVD Chief Complaint: Establish Care Oven Press Tender Required: No Is patient in pain?: Yes Allergies rosuvastatin (From [employer] ASA) Allergy (Intermediate, Verified 07/10/24 09:30) Rash Medications [...] artery ( 08/01/97) Atherosclerotic heart disease of red devil coronary artery without angina pectoris Diabetes mellitus [...] thyroid canc (more content not included)... Normal [facility] PVR LEG VAL VAS LABon 2024 P[facility] LEG VAL VAS LAB Non-Invasive Vascula r Laboratory [facility] Lower Extremity Arterial Physiology Study Bilateral/Complete [...] physician: Diego Rice MD, ZAID Final CC [employer] [facility] Image : [id number] amicsSISUID See Link below for Image [facility] CNPN Telephone ([facility]) KATHARINE CANO ([id number]) 1945 M Date Time Provider Department 07/31/24 [...] Status:Closed by JEANNETTE OLIVEIRA on 08/05/24 Normal [facility] ALBUMIN/CREATININE RATIO, UR INEon 07-24-2024 Albumin DL <= 20 mg/L (U) [Mass/Vol] mg/dL Normal [facility] Comment on above: Order Comment: Speci men Type: URINE SPECIMENOrdering Facility: [facility] Address: [address] [place] [address] Performed By: #### U ACR ####[facility] LABCLIA [id number] [place] [address] [place] Albumin/Creatinine (U) [Mass ratio] <8 Normal <30 [facility] Comment on above: Order Comment: Speci men Type: URINE SPECIMENOrdering Facility: [facility] Address: [address] [place] [address] Result Comment: Adul t Male and Female Nephrotic Criteria: <30 mg/g is considered normal to mildly increased 30-300 mg/g is considered moderately increased >300 mg/g is considered severely increased KDIGO. (2013). KDIGO 2012 Clinical Practice Guideline for the Evaluation and Management of Chronic Kidney Disease. Official Journal of the International Society of Nephrology, 3(1), 1-150. Performed By: #### U ACR ####[facility] LABCLIA [id number] [place] [address] [place] Creatinine (U) [Mass/Vol] 155.2 mg/dL Normal 20.0-300.0 [facility] Comment on above: Order Comment: Speci men Type: URINE SPECIMENOrdering Facility: [facility] Address: [address] [place], [place] [address] Performed By: #### U ACR ####[facility] LABCLIA [id number] [facility] [place] [address] [place] CBC W Auto Differential pane l (Bld)on 07-24-2024 Basophils (Bld) [#/Vol] 0.04 10*3/uL [facility] Basophils/100 WBC (Bld) 0.8 % [facility] Differential cell count method Nom (Bld) Auto [facility] Eosinophils (Bld) [#/Vol] 0.15 10*3/uL [facility] Eosinophils/100 WBC (Bld) 3.1 % [facility] Erythrocyte distribution width (RBC) [Ratio] 13.5 % 11.5 - 15.0 % [facility] Hematocrit (Bld) [Volume fraction] 42.7 % 39.0 - 51.0 % [facility] Hemoglobin (Bld) [Mass/Vol] 14.1 g/dL 13.0 - 17.0 g/dL [facility] Immature granulocytes (Bld) [#/Vol] [facility] Immature granulocytes/100 WBC (Bld) 0 % [facility] Interpretation and review of laboratory results Abnormal [facility] Lymphocytes (Bld) [#/Vol] 2.17 10*3/uL [facility] Lymphocytes/100 WBC (Bld) 45.5 % [facility] MCH (RBC) [Entitic mass] 33.3 pg 26.0 - 34.0 pg [facility] MCHC (RBC) [Mass/Vol] 33 g/dL 30.5 - 36.0 g/dL [facility] MCV (RBC) [Entitic vol] 100.9 fL High 80.0 - 100.0 fL [facility] Monocytes (Bld) [#/Vol] 0.56 10*3/uL [facility] Monocytes/100 WBC (Bld) 11.7 % [facility] Neutrophils (Bld) [#/Vol] 1.85 10*3/uL [facility] Neutrophils/100 WBC (Bld) 38.9 % [facility] Nucleated RBC (Bld) [#/Vol] [facility] Nucleated RBC/100 WBC (Bld) [Ratio] 0 % /100 WBC [facility] Platelet mean volume (Bld) [Entitic vol] 9.5 fL 9.0 - 12.7 fL [facility] Platelets (Bld) [#/Vol] 232 10*3/uL [facility] RBC (Bld) [#/Vol] 4.23 10*6/uL 4.20 - 6.0 0 m/uL [facility] WBC (Bld) [#/Vol] 4.77 10*3/uL [facility] Basophils (Bld) [#/Vol] 0.04 10*3/uL Normal <0.11 [facility] Comment on above: Order Comment: Speci men Type: BLOOD SPECIMENOrdering Facility: [facility] Address: [address] [place] [address] Performed By: #### 5 7021-8 ####[facility] LABCLIA [id number] [place] [address] [place] Basophils/100 WBC (Bld) 0.8 % Normal [facility] Comment on above: Order Comment: Speci men Type: BLOOD SPECIMENOrdering Facility: [facility] Address: [address] [place] [address] Performed By: #### 5 7021-8 ####[facility] LABCLIA [id number] [place] [address] [place] Differential cell count method Nom (Bld) Auto Normal [facility] Comment on above: Order Comment: Speci men Type: BLOOD SPECIMENOrdering Facility: [facility] Address: [address] [place] [address] Performed By: #### 5 7021-8 ####[facility] LABCLIA [id number] [place] [address] [place] Eosinophils (Bld) [#/Vol] 0.15 10*3/uL Normal <0.46 [facility] Comment on above: Order Comment: Speci men Type: BLOOD SPECIMENOrdering Facility: [facility] Address: [address] [place] [address] Performed By: #### 5 7021-8 ####[facility] LABCLIA [id number] [address] [place] [address] [place] Eosinophils/100 WBC (Bld) 3.1 % Normal [facility] Comment on above: Order Comment: Speci men Type: BLOOD SPECIMENOrdering Facility: [facility] Address: [address] [place] [address] Performed By: #### 5 7021-8 ####[facility] LABCLIA [id number] [address], [place] [address] [place] Erythrocyte distribution width (RBC) [Ratio] 13.5 % Normal 11.5-15.0 [facility] Comment on above: Order Comment: Speci men Type: BLOOD SPECIMENOrdering Facility: [facility] Address: [address] [place] [address] Performed By: #### 5 7021-8 ####[facility] LABCLIA [id number] [address], [place] [address] [place] Hematocrit (Bld) [Volume fraction] 42.7 % Normal 39.0-51.0 [facility] Comment on above: Order Comment: Speci men Type: BLOOD SPECIMENOrdering Facility: [facility] Address: [address] [place] [address] Performed By: #### 5 7021-8 ####[facility] LABCLIA [id number] [address], [place] [address] [place] Hemoglobin (Bld) [Mass/Vol] 14.1 g/dL Normal 13.0-17.0 [facility] Comment on above: Order Comment: Speci men Type: BLOOD SPECIMENOrdering Facility: [facility] Address: [address] [place] [address] Performed By: #### 5 7021-8 ####[facility] LABCLIA [id number] [address], [facility] [place] Immature granulocytes (Bld) [#/Vol] 10*3/uL Normal <0.10 [facility] Comment on above: Order Comment: Speci men Type: BLOOD SPECIMENOrdering Facility: [facility] Address: [address] [place] [address] Performed By: #### 5 7021-8 ####[facility] LABCLIA [id number] [address] [address] [place] Immature granulocytes/100 WBC (Bld) 0.0 % Normal [facility] Comment on above: Order Comment: Speci men Type: BLOOD SPECIMENOrdering Facility: [facility] Address: [address] [place] [address] Performed By: #### 5 7021-8 ####[facility] LABCLIA [id number] [address], [place] [address] [place] Lymphocytes (Bld) [#/Vol] 2.17 10*3/uL Normal 1.00-4.00 [facility] Comment on above: Order Comment: Speci men Type: BLOOD SPECIMENOrdering Facility: [facility] Address: [address] [place] [address] Performed By: #### 5 7021-8 ####[facility] LABCLIA [id number] [place] [address] [place] Lymphocytes/100 WBC (Bld) 45.5 % Normal [facility] Comment on above: Order Comment: Speci men Type: BLOOD SPECIMENOrdering Facility: [facility] Address: [address] [place] [address] Performed By: #### 5 7021-8 ####[facility] LABCLIA [id number] [place] [address] [place] MCH (RBC) [Entitic mass] 33.3 pg Normal 26.0-34.0 [facility] Comment on above: Order Comment: Speci men Type: BLOOD SPECIMENOrdering Facility: [facility] Address: [address] [place] [address] Performed By: #### 5 7021-8 ####[facility] LABCLIA [id number] [place] [address] [place] MCHC (RBC) [Mass/Vol] 33.0 g/dL Normal 30.5-36.0 [facility] Comment on above: Order Comment: Speci men Type: BLOOD SPECIMENOrdering Facility: [facility] Address: [address] [place] [address] Performed By: #### 5 7021-8 ####[facility] LABIA [id number] [place] [address] [place] MCV (RBC) [Entitic vol] 100.9 fL High 80.0-100.0 [facility] Comment on above: Order Comment: Speci men Type: BLOOD SPECIMENOrdering Facility: [facility] Address: [address] [place] [address] Performed By: #### 5 7021-8 ####[facility] LABIA [id number] [place] [address] [place] Monocytes (Bld) [#/Vol] 0.56 10*3/uL Normal <0.87 [facility] Comment on above: Order Comment: Speci men Type: BLOOD SPECIMENOrdering Facility: [facility] Address: [address] [place] [address] Performed By: #### 5 7021-8 ####[facility] LABIA [id number] [place] [address] [place] Monocytes/100 WBC (Bld) 11.7 % Normal [facility] Comment on above: Order Comment: Speci men Type: BLOOD SPECIMENOrdering Facility: [facility] Address: [address] [place] [address] Performed By: #### 5 7021-8 ####[facility] LABIA [id number] [place] [address] [place] Neutrophils (Bld) [#/Vol] 1.85 10*3/uL Normal 1.45-7.50 [facility] Comment on above: Order Comment: Speci men Type: BLOOD SPECIMENOrdering Facility: [facility] Address: [address] [place] [address] Performed By: #### 5 7021-8 ####[facility] LABCLIA [id number] [place] [address] [place] Neutrophils/100 WBC (Bld) 38.9 % Normal [facility] Comment on above: Order Comment: Speci men Type: BLOOD SPECIMENOrdering Facility: [facility] Address: [address] [place] [address] Performed By: #### 5 7021-8 ####[facility] LABCLIA [id number] [place] [address] [place] Nucleated RBC (Bld) [#/Vol] 10*3/uL Normal <0.01 [facility] Comment on above: Order Comment: Speci men Type: BLOOD SPECIMENOrdering Facility: [facility] Address: [address] [place] [address] Performed By: #### 5 7021-8 ####[facility] LABCLIA [id number] [place] [address] [place] Nucleated RBC/100 WBC (Bld) [Ratio] 0.0 /100 WBC Normal [facility] Comment on above: Order Comment: Speci men Type: BLOOD SPECIMENOrdering Facility: [facility] Address: [address] [place] [address] Performed By: #### 5 7021-8 ####[facility] LABIA [id number] [place] [address] [place] Platelet mean volume (Bld) [Entitic vol] 9.5 fL Normal 9.0-12.7 [facility] Comment on above: Order Comment: Speci men Type: BLOOD SPECIMENOrdering Facility: [facility] Address: [address] [place] [address] Performed By: #### 5 7021-8 ####[facility] LABCLIA [id number] [place] [address] [place] Platelets (Bld) [#/Vol] 232 10*3/uL Normal 150-400 [facility] Comment on above: Order Comment: Speci men Type: BLOOD SPECIMENOrdering Facility: [facility] Address: [address] [place] [address] Performed By: #### 5 7021-8 ####[facility] LABIA [id number] [place] [address] [place] RBC (Bld) [#/Vol] 4.23 10*6/uL Normal 4.20-6.00 [facility] Comment on above: Order Comment: Speci men Type: BLOOD SPECIMENOrdering Facility: [facility] Address: [address] [place] [address] Performed By: #### 5 7021-8 ####[facility], INCIA [id number] [place] [id number] [place] WBC (Bld) [#/Vol] 4.77 10*3/uL Normal 3.70-11.00 [facility] Comment on above: Order Comment: Speci men Type: BLOOD SPECIMENOrdering Facility: [facility] Address: [address] [place] [address] Performed By: #### 5 7021-8 ####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 Please [...] cramps ate (more content not included)... Normal [facility] Cobalamin (Vitamin B12) [Mas s/Vol]on 07-24-2024 Interpretation and review of laboratory results Normal [facility] Comprehensive metabolic 2000 panelon 07-24-2024 Albumin [Mass/Vol] 4.1 g/dL 3.9 - 4.9 g/dL [facility] ALP [Catalytic activity/Vol] 84 U/L 38 - 113 U/L [facility] ALT [Catalytic activity/Vol] 12 U/L 10 - 54 U/L [facility] Anion gap [Moles/Vol] 12 mmol/L 8 - 15 mmol/L [facility] AST [Catalytic activity/Vol] 20 U/L 14 - 40 U/L [facility] Bilirubin [Mass/Vol] 0.4 mg/dL 0.2 - 1 .3 mg/dL [facility] Calcium [Mass/Vol] 9.7 mg/dL 8.5 - 10. 2 mg/dL [facility] Chloride [Moles/Vol] 103 mmol/L 98 - 10 7 mmol/L [facility] CO2 [Moles/Vol] 24 mmol/L 22 - 30 mmol/L [facility] Creatinine [Mass/Vol] 1.36 mg/dL High 0.73 - 1.22 mg/dL [facility] GFR/1.73 sq M.predicted among non-blacks MDRD (S/P/Bld) [Vol rate/Area] 53 mL/min/{1.73_m2} Low - PINF [facility] Comment on above: Estimated Glomerular Filtration [...] 154 mg/dL High 74 - 99 mg/dL [facility] Comment on above: The [place] Diabete s Association (ADA) provides guidance for [...] Standards of Medical Care in Diabetes 2016, [place] Diabetes Association. Diabetes Care. 2016.39(Suppl 1). Potassium [Moles/Vol] 4.4 mmol/L 3.7 - 5.1 mmol/L [facility] Protein [Mass/Vol] 7.9 g/dL 6.3 - 8.0 g/dL [facility] Sodium [Moles/Vol] 139 mmol/L 136 - 144 mmol/L [facility] Urea nitrogen [Mass/Vol] 21 mg/dL 9 - 24 mg/dL [facility] Albumin [Mass/Vol] 4.1 g/dL Normal 3.9-4.9 [facility] Comment on above: Order Comment: Speci men Type: BLOOD SPECIMENOrdering Facility: [facility] Address: [address] [place] [address] [place] [address] Performed By: #### 2 4323-8, BERNADINE, 2132-9 ####[facility] LABCLIA [id number] [place] [address] [place] ALP [Catalytic activity/Vol] 84 U/L Normal 38-113 [facility] Comment on above: Order Comment: Speci men Type: BLOOD SPECIMENOrdering Facility: [facility] Address: [address] [place] [address] Performed By: #### 2 4323-8, LIPNF, 2131-12 ####[facility] LABCLIA [id number] [place] [id number] [place] ALT [Catalytic activity/Vol] 12 U/L Normal 10-54 [facility] Comment on above: Order Comment: Speci men Type: BLOOD SPECIMENOrdering Facility: [facility] Address: [address] [place] [address] Performed By: #### 2 4323-8, LIPNF, 2131-12 ####[facility] LABCLIA [id number] [place] [address] [place] Anion gap [Moles/Vol] 12 mmol/L Normal 8-15 [facility] Comment on above: Order Comment: Speci men Type: BLOOD SPECIMENOrdering Facility: [facility] Address: [address] [place] [address] Performed By: #### 2 4323-8, LIPNF, 2131-12 ####[facility] LABIA [id number] [place] [address] [place] AST [Catalytic activity/Vol] 20 U/L Normal 14-40 [facility] Comment on above: Order Comment: Speci men Type: BLOOD SPECIMENOrdering Facility: [facility] Address: [address] [place] [address] Performed By: #### 2 4323-8, LIPNF, 2131-12 ####[facility] LABCLIA [id number] [place] [id number] [place] Bilirubin [Mass/Vol] 0.4 mg/dL Normal 0.2-1.3 [facility] Comment on above: Order Comment: Speci men Type: BLOOD SPECIMENOrdering Facility: [facility] Address: [address] [place] [address] Performed By: #### 2 432-8, LIPNF, 2131-12 ####[facility] LABCLIA [id number] [address] [address] [place] Calcium [Mass/Vol] 9.7 mg/dL Normal 8.5-10.2 [facility] Comment on above: Order Comment: Speci men Type: BLOOD SPECIMENOrdering Facility: [facility] Address: [address] [place] [address] Performed By: #### 2 432-8, LIPNF, 2131-12 ####[facility] LABCLIA [id number] [place] [id number] [place] Chloride [Moles/Vol] 103 mmol/L Normal 98-107 [facility] Comment on above: Order Comment: Speci men Type: BLOOD SPECIMENOrdering Facility: [facility] Address: [address] [place] [address] Performed By: #### 2 4328, LIPNF, 2131-12 ####[facility] LABCLIA [id number] [place] [id number] [place] CO2 [Moles/Vol] 24 mmol/L Normal 22-30 [facility] Comment on above: Order Comment: Speci men Type: BLOOD SPECIMENOrdering Facility: [facility] Address: [address] [place], [place] [address] Performed By: #### 2 4328, LIPNF, 2131-12 ####[facility] LABCLIA [id number] [address] [address] [place] Creatinine [Mass/Vol] 1.36 mg/dL High 0.73-1.22 [facility] Comment on above: Order Comment: Speci men Type: BLOOD SPECIMENOrdering Facility: [facility] Address: [address] [place], [place] [address] Performed By: #### 2 432-8, LIPNF, 2131-12 ####[facility] LABCLIA [id number] [place] [address] [place] Creatinine and Glomerular filtration rate.predicted panel (S/P/Bld) 53 mL/min/1.73m??? Low >=60 [facility] Comment on above: Order Comment: Lucho kidd Type: BLOOD SPECIMENOrdering Facility: [facility] Address: [address] [place] [address] Result Comment: Laurie mated Glomerular Filtration Rate [...] Performed By: #### 2 4323-8, LIPTHOMAS, 2131-12 ####[facility] [id number] [place] [address] [place] Glucose [Mass/Vol] 154 mg/dL High 74-99 [facility] Comment on above: Order Comment: Lucho kidd Type: BLOOD SPECIMENOrdering Facility: [facility] Address: [address] [place] [address] Result Comment: The [place] Diabetes Association (ADA) provides guidance for cutoff [...] Standards of Medical Care in Diabetes 2016, [place] Diabetes Association. Diabetes Care. 2016.39(Suppl 1). Performed By: #### 2 4323-8, LIPNF, 2131-12 ####[facility] LABIA [id number] [address] [address] [place] Potassium [Moles/Vol] 4.4 mmol/L Normal 3.7-5.1 [facility] Comment on above: Order Comment: Speci men Type: BLOOD SPECIMENOrdering Facility: [facility] Address: [address] [place] [address] Performed By: #### 2 4323-8, LIPNF, 2131-12 ####[facility] LABCLIA [id number] [place] [address] [place] Protein [Mass/Vol] 7.9 g/dL Normal 6.3-8.0 [facility] Comment on above: Order Comment: Speci men Type: BLOOD SPECIMENOrdering Facility: [facility] Address: [address] [place] [address] Performed By: #### 2 4328, LIPNF, 2131-12 ####[facility] LABCLIA [id number] [place] [address] [place] Sodium [Moles/Vol] 139 mmol/L Normal 136-144 [facility] Comment on above: Order Comment: Speci men Type: BLOOD SPECIMENOrdering Facility: [facility] Address: [address] [place] [address] Performed By: #### 2 4328, LIPNF, 2131-12 ####[facility] LABCLIA [id number] [place] [id number] [place] Urea nitrogen [Mass/Vol] 21 mg/dL Normal 9-24 [facility] Comment on above: Order Comment: Speci men Type: BLOOD SPECIMENOrdering Facility: [facility] Address: [address] [place] [address] Performed By: #### 2 4323-8, LIPNF, 2131-12 ####[facility] LABCLIA [id number] [address] [address] [place] HbA1c (Bld)on 07-24-2024 Average glucose Estimated from glycated hemoglobin (Bld) [Mass/Vol] 171 mg/dL [facility] Comment on above: eAG: (Estimated aver age glucose) is a calculated value from HgbA1c and is exhibit display representative of the average blood glucose level in the last 2-3 month period. HbA1c (Bld) [Mass fraction] 7.6 % High 4.3 - 5.6 % [facility] Comment on above: [place] Diabetes As sociation guidelines indicate that patients with HgbA1c in the range 5.7-6.4% are at increased risk for development of diabetes, and intervention by lifestyle modification may be beneficial. HgbA1c greater or equal to 6.5% is considered diagnostic of diabetes. Interpretation and review of laboratory results Abnormal [facility] Average glucose Estimated from glycated hemoglobin (Bld) [Mass/Vol] 171 mg/dL Normal [facility] Comment on above: Order Comment: Lucho kidd Type: BLOOD SPECIMENOrdering Facility: [facility] Address: [address] [place] [address] Result Comment: eAG: (Estimated average glucose) is a calculated value from HgbA1c and is exhibit display representative of the average blood glucose level in the last 2-3 month period. Performed By: #### 5 5454-3 ####[facility] LABCLIA [id number] [address] STATES OF [facility] HbA1c (Bld) [Mass fraction] 7.6 % High 4.3-5.6 [facility] Comment on above: Order Comment: Lucho kidd Type: BLOOD SPECIMENOrdering Facility: [facility] Address: [address] [place] [address] Result Comment: [place] Diabetes Association guidelines indicate that patients with HgbA1c in the range 5.7-6.4% are at increased risk for development of diabetes, and intervention by lifestyle modification may be beneficial. HgbA1c greater or equal to 6.5% is considered diagnostic of diabetes. Performed By: #### 5 5454-3 ####[facility] LABCLIA [id number] [address] [address] [place] LIPID PANEL, NONFASTINGon Cholesterol [Mass/Vol] 213 mg/dL High NINF - 200 mg/dL [facility] Comment on above: <200 mg/dL, Desirabl e 200-239 mg/dL, Borderline high >239 mg/dL, High HDL Cholesterol, Nonfasting 44 mg/dL 39 - PINF mg/dL [facility] Comment on above: 40-59 mg/dL, Accepta ble >59 mg/dL, High: Negative risk factor for coronary heart disease <40 mg/dL, Low: Positive risk factor for coronary heart disease LDL Cholesterol, Nonfasting 133 mg/dL High NINF - 100 mg/dL [facility] Comment on above: <100 mg/dL, Optimal 100-129 mg/dL, Near optimal/above optimal 130-159 mg/dL, Borderline high 160-189 mg/dL, High >189 mg/dL, Very high Secondary prevention optimal LDL Cholesterol levels are recommended to be < 70 mg/dL LDL/HDL Ratio, Nonfasting 3.02 mg/dL High NINF - 2.54 mg/dL [facility] Comment on above: Reference: 1. National Cholesterol Education Program ATP III Guideline At-A-Glance Quick Desk Reference: National Heart, Lung, and Blood [place]. National Institutes of Health. 2001: NIH Publication No. 01-3305. 2. An International Atherosclerosis Society position paper: global recommendations for the management of dyslipidemia: executive summary, Atherosclerosis. 2014: 232(2):410-413. Non HDL Cholesterol, Nonfasting 169 mg/dL High NINF - 130 mg/dL [facility] Comment on above: <130 mg/dL, Optimal 130-159 mg/dL, Near optimal/above optimal 160-189 mg/dL, Borderline high 190-219 mg/dL, High >219 mg/dL, Very high Secondary prevention optimal non HDL Cholesterol levels are recommended to be <100 mg/dL Total Chol/HDL Ratio, Nonfasting 4.84 mg/dL NINF - 5.10 mg/dL [facility] Triglycerides, Nonfasting 182 mg/dL High NINF - 150 mg/dL [facility] Comment on above: <150 mg/dL, Normal 150-199 mg/dL, Borderline high 200-499 mg/dL, High >499 mg/dL, Very high VLDL Cholesterol, Nonfasting 36 mg/dL High NINF - 30 mg/dL [facility] Cholesterol [Mass/Vol] 213 mg/dL High <200 [facility] Comment on above: Order Comment: Speci men Type: BLOOD SPECIMENOrdering Facility: [facility] Address: [address] [place] [address] Result Comment: <200 mg/dL, Desirable 200-239 mg/dL, Borderline high >239 mg/dL, High Performed By: #### 2 4323-8, LIPNF, 2131-12 ####[facility] LABCLIA [id number] [facility] [id number], [place] [address] [place] HDL CHOLESTEROL, NF 44 mg/dL Normal >39 [facility] Comment on above: Order Comment: Speci men Type: BLOOD SPECIMENOrdering Facility: [facility] Address: [address] [place] [address] Result Comment: 40-5 9 mg/dL, Acceptable >59 mg/dL, High: Negative risk factor for coronary heart disease <40 mg/dL, Low: Positive risk factor for coronary heart disease Performed By: #### 2 4323-8, LIPNF, 2131-12 ####[facility] LABCLIA [id number] [facility] [id number], [place] [address] [place] LDL CHOLESTEROL, NF 133 mg/dL High <100 [facility] Comment on above: Order Comment: Speci men Type: BLOOD SPECIMENOrdering Facility: [facility] Address: [address] [place] [address] Result Comment: <100 mg/dL, Optimal 100-129 mg/dL, Near optimal/above optimal 130-159 mg/dL, Borderline high 160-189 mg/dL, High >189 mg/dL, Very high Secondary prevention optimal LDL Cholesterol levels are recommended to be < 70 mg/dL Performed By: #### 2 4323-8, LIPNF, 2131-12 ####[facility] LABCLIA [id number] [facility] [id number], [place] [address] [place] LDL/HDL RATIO, NF 3.02 mg/dL High <2.54 [facility] Comment on above: Order Comment: Speci men Type: BLOOD SPECIMENOrdering Facility: [facility] Address: [address] [place] [address] Result Comment: Conchita bateman: 1. National Cholesterol Education Program ATP III Guideline At-A-Glance Quick Desk Reference: National Heart, Lung, and Blood [place]. National Institutes of Health. 2001: NIH Publication No. 01-3305. 2. An International Atherosclerosis Society position paper: global recommendations for the management of dyslipidemia: executive summary, Atherosclerosis. 2014: 232(2):410-413. Performed By: #### 2 4323-8, LIPNF, 2131-12 ####[facility] LABCLIA [id number] [place] [address] [place] NON HDL CHOL, NF 169 mg/dL High <130 [facility] Comment on above: Order Comment: Speci men Type: BLOOD SPECIMENOrdering Facility: [facility] Address: [address] [place] [address] Result Comment: <130 mg/dL, Optimal 130-159 mg/dL, Near optimal/above optimal 160-189 mg/dL, Borderline high 190-219 mg/dL, High >219 mg/dL, Very high Secondary prevention optimal non HDL Cholesterol levels are recommended to be <100 mg/dL Performed By: #### 2 432-8, LIPNF, 2131-12 ####[facility] LABCLIA [id number] [place] [address] [place] T CHOL/HDL RATIO NF 4.84 mg/dL Normal <5.10 [facility] Comment on above: Order Comment: Speci men Type: BLOOD SPECIMENOrdering Facility: [facility] Address: [address] [place] [address] Performed By: #### 2 4323-8, LIPNF, 2131-12 ####[facility] LABCLIA [id number] [place] [id number] [place] TRIGLYCERIDES, NF 182 mg/dL High <150 [facility] Comment on above: Order Comment: Speci men Type: BLOOD SPECIMENOrdering Facility: [facility] Address: [address] [place] [address] Result Comment: <150 mg/dL, Normal 150-199 mg/dL, Borderline high 200-499 mg/dL, High >499 mg/dL, Very high Performed By: #### 2 4323-8, LIPNF, 2131-12 ####[facility] LABCLIA [id number] [place] [address] [place] VLDL CHOLESTEROL, NF 36 mg/dL High <30 [facility] Comment on above: Order Comment: Speci men Type: BLOOD SPECIMENOrdering Facility: [facility] Address: [address] [place] [address] Performed By: #### 2 4323-8, LIPNF, 2131-12 ####[facility] LABCLIA [id number] [address] [place] No Panel Informationon 07-24 Interpretation and review of laboratory results Abnormal [facility] Urinalysis complete panel (U )on 07-24-2024 Bacteria LM.HPF (Urine sed) [#/Area] Negative Negative /HPF [facility] Bilirubin Ql (U) Negative Negative [facility] Clarity (Unsp spec) Clear Clear [facility] Color (U) Yellow Yellow [facility] Epithelial cells LM.HPF (Urine sed) [#/Area] None Seen /HPF [facility] Glucose Test strip (U) [Mass/Vol] Negative Negative [facility] Hemoglobin Ql (U) Negative Negative [facility] Hyaline casts (Urine sed) [#/Area] 4-10 /LPF Abnormal 0 /LPF [facility] Interpretation and review of laboratory results Abnormal [facility] Ketones Ql (U) Negative Negative [facility] Leukocyte esterase Test strip Ql (U) Negative Negative [facility] Nitrite Ql (U) Negative Negative [facility] pH (U) 5.5 [pH] NINF - 8.5 [facility] Protein (U) [Mass/Vol] Negative Negative [facility] RBC LM.HPF (Urine sed) [#/Area] 0-2 /HPF 0-2 /HPF [facility] Specific gravity (U) [Rel density] 1.018 1.005 - 1.030 [facility] Urobilinogen Ql (U) 0.2 EU/dL 0.2-1.0 EU/dL [facility] WBC LM.HPF (Urine sed) [#/Area] 0-5 /HPF 0-5 /HPF [facility] This test was developed and its performance characteristics determined by [facility]'s [facility] Pathology and Laboratory Medicine [place] ([facility]). It has not been cleared or approved by the FDA. [facility] is regulated under CLIA as qualified to perform high-complexity testing. This test is used for clinical purposes. It should not be regarded as investigational or for research. [facility] Bacteria LM.HPF (Urine sed) [#/Area] Negative Normal Negative [facility] Comment on above: Order Comment: Speci men Type: URINE SPECIMENOrdering Facility: [facility] Address: [address] [place] [address] Performed By: #### 2 4356-8 ####[facility] LABIA [id number] [place] [address] [place] Bilirubin Ql (U) Negative Normal Negative [facility] Comment on above: Order Comment: Speci men Type: URINE SPECIMENOrdering Facility: [facility] Address: [address] [place] [address] Performed By: #### 2 4356-8 ####[facility] LABIA [id number] [place] [address] [place] Clarity (Unsp spec) Clear Normal Clear [facility] Comment on above: Order Comment: Speci men Type: URINE SPECIMENOrdering Facility: [facility] Address: [address] [place] [address] Performed By: #### 2 4356-8 ####[facility] LABCLIA [id number] [place] [address] [place] Color (U) Yellow Normal Yellow [facility] Comment on above: Order Comment: Speci men Type: URINE SPECIMENOrdering Facility: [facility] Address: [address] [place] [address] Performed By: #### 2 4356-8 ####[facility] LABCLIA [id number] [place] [address] [place] [facility] Epithelial cells LM.HPF (Urine sed) [#/Area] None Seen Normal [facility] Comment on above: Order Comment: Speci men Type: URINE SPECIMENOrdering Facility: [facility] Address: [address] [place] [address] Performed By: #### 2 4356-8 ####[facility] LABCLIA [id number] [address] [place] Glucose Test strip (U) [Mass/Vol] Negative Normal Negative [facility] Comment on above: Order Comment: Speci men Type: URINE SPECIMENOrdering Facility: [facility] Address: [address] [place] [address] Performed By: #### 2 4356-8 ####[facility] LABCLIA [id number] [place] [address] [place] Hemoglobin Ql (U) Negative Normal Negative [facility] Comment on above: Order Comment: Speci men Type: URINE SPECIMENOrdering Facility: [facility] Address: [address] [place] [address] Performed By: #### 2 4356-8 ####[facility] LABCLIA [id number] [place] [address] [place] Hyaline casts (Urine sed) [#/Area] 4-10 /LPF Abnormal 0 /LPF [facility] Comment on above: Order Comment: Speci men Type: URINE SPECIMENOrdering Facility: [facility] Address: [address] [place] [address] Performed By: #### 2 4356-8 ####[facility] LABCLIA [id number] [place] [address] [place] Ketones Ql (U) Negative Normal Negative [facility] Comment on above: Order Comment: Speci men Type: URINE SPECIMENOrdering Facility: [facility] Address: [address] [place] [address] Performed By: #### 2 4356-8 ####[facility] LABCLIA [id number] [address] [place] [address] [place] Leukocyte esterase Test strip Ql (U) Negative Normal Negative [facility] Comment on above: Order Comment: Speci men Type: URINE SPECIMENOrdering Facility: [facility] Address: [address] [place] [address] Performed By: #### 2 4356-8 ####[facility] LABCLIA [id number] [address], [place] [address] [place] Nitrite Ql (U) Negative Normal Negative [facility] Comment on above: Order Comment: Speci men Type: URINE SPECIMENOrdering Facility: [facility] Address: [address] [place] [address] Performed By: #### 2 4356-8 ####[facility] LABCLIA [id number] [address], [place] [address] [place] pH (U) 5.5 [pH] Normal <8.5 [facility] Comment on above: Order Comment: Speci men Type: URINE SPECIMENOrdering Facility: [facility] Address: [address] [place] [address] Performed By: #### 2 4356-8 ####[facility] LABCLIA [id number] [address], [facility] [place] Protein (U) [Mass/Vol] Negative Normal Negative [facility] Comment on above: Order Comment: Speci men Type: URINE SPECIMENOrdering Facility: [facility] Address: [address] [place] [address] Performed By: #### 2 4356-8 ####[facility] LABCLIA [id number] [place] RBC LM.HPF (Urine sed) [#/Area] 0-2 /HPF Normal 0-2 /HPF [facility] Comment on above: Order Comment: Speci men Type: URINE SPECIMENOrdering Facility: [facility] Address: [address] [place] [address] Performed By: #### 2 4356-8 ####[facility] LABIA [id number] [place] [address] [place] Specific gravity (U) [Rel density] 1.018 Normal 1.005-1.030 [facility] Comment on above: Order Comment: Speci men Type: URINE SPECIMENOrdering Facility: [facility] Address: [address] [place] [address] Performed By: #### 2 4356-8 ####[facility] LABIA [id number] [address] [place] Urobilinogen Ql (U) 0.2 EU/dL Normal 0.2-1.0 EU/dL [facility] Comment on above: Order Comment: Speci men Type: URINE SPECIMENOrdering Facility: [facility] Address: [address] [place] [address] Performed By: #### 2 4356-8 ####[facility] LABIA [id number] [place] [address] [place] WBC LM.HPF (Urine sed) [#/Area] 0-5 /HPF Normal 0-5 /HPF [facility] Comment on above: Order Comment: Speci men Type: URINE SPECIMENOrdering Facility: [facility] Address: [address] [place] [address] Performed By: #### 2 4356-8 ####[facility] LABIA [id number] [place] [address] [place] VITAMIN B12on 07-24-2024 Cobalamin (Vitamin B12) [Mass/Vol] 529 pg/mL 232 - 1245 pg/mL [facility] Vit B12 SerPl-mCncon 07-24- 025 Cobalamin (Vitamin B12) [Mass/Vol] 529 pg/mL Normal 232-1245 [facility] Comment on above: Order Comment: Speci men Type: BLOOD SPECIMENOrdering Facility: [facility] Address: [address] [place] [address] [place] [address] Performed By: #### 2 4323-8, BERNADINE, 2132-9 ####[facility] LABCLIA [id number] [facility] CENTERKamar FISHS EDDYCALVIN [id number] [place] [address] STATES OF [facility] CNPLuisa 07-18-2024 CNPN Telephone (FAMPWS) KATHARINE CANO ([id number]) 1945 M Date Time Provider Department 07/18/24 CÉSAR MERRILL During your visit today, we recorded the following information about you: Zohreh Hughes, RN 07/18/2024 12:19 PM Signed Love from [facility] pharmacy in [place] calling in for refills for pt. She states pt called in for refill on his Baclofen and Gabapentin. Per [employer], last prescriptions for both of these were [...] Simvastatin correctly. Atenolol and Simvastatin prescribed by [facility]. Pt is set up for a physical on 08/12 with Katarzyna Munson. Pt is Christianity and needs financially cleared for appt. Attempted [...] Encounter Status:Closed by CÉSAR MERRILL on 07/18/24 [facility] Cardiology Visit Reporton Cardiology Visit Report [facility] [address] [place] [address] OFFICE VISIT Date of Service: 07/10/24 MR#: [id number] Acct: [id number] Name: JEROMEKATHARINE Rep #: [id number] : 1945 Provider: Dr. 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 Normal [facility] 02-15-2024 [facility] KATHARINE CANO ([id number]) 1945 M Date Time Provider Department 02/15/24 [facility] During your visit today, we recorded the [...] Encounter Status:Closed by DEMARCUS HIGGINBOTHAM on 02/15/24 [facility] CNOVon 02-14-2024 CNOV Office Visit (FAMPWS ) JEROMEKATHARINE ([id number]) 1945 M Date Time Provider Department 02/14/24 [...] pain an (more content not included)... Normal [facility] Cobalamin (Vitamin B12) [Mas s/Vol]on 02-14-2024 Interpretation and review of laboratory results Normal [facility] HbA1c (Bld)on 02-14-2024 Average glucose Estimated from glycated hemoglobin (Bld) [Mass/Vol] 140 mg/dL [facility] Comment on above: eAG: (Estimated aver age glucose) is a calculated value from HgbA1c and is exhibit display representative of the average blood glucose level in the last 2-3 month period. HbA1c (Bld) [Mass fraction] 6.5 % High 4.3 - 5.6 % [facility] Comment on above: [place] Diabetes As sociation guidelines indicate that patients with HgbA1c in the range 5.7-6.4% are at increased risk for development of diabetes, and intervention by lifestyle modification may be beneficial. HgbA1c greater or equal to 6.5% is considered diagnostic of diabetes. Interpretation and review of laboratory results Abnormal [facility] Average glucose Estimated from glycated hemoglobin (Bld) [Mass/Vol] 140 mg/dL Normal [facility] Comment on above: Order Comment: Lucho kidd Type: BLOOD SPECIMENOrdering Facility: [facility] Address: [address] [place] [address] Result Comment: eAG: (Estimated average glucose) is a calculated value from HgbA1c and is exhibit display representative of the average blood glucose level in the last 2-3 month period. Performed By: #### 5 5454-3 ####[facility] LABCLIA [id number] [place] [address] [place] HbA1c (Bld) [Mass fraction] 6.5 % High 4.3-5.6 [facility] Comment on above: Order Comment: Lucho kidd Type: BLOOD SPECIMENOrdering Facility: [facility] Address: [address] [place] [address] Result Comment: [place] Diabetes Association guidelines indicate that patients with HgbA1c in the range 5.7-6.4% are at increased risk for development of diabetes, and intervention by lifestyle modification may be beneficial. HgbA1c greater or equal to 6.5% is considered diagnostic of diabetes. Performed By: #### 5 5454-3 ####[facility] LABCLIA [id number] [place] [address] [place] VITAMIN B12on 02-14-2024 Cobalamin (Vitamin B12) [Mass/Vol] 480 pg/mL 232 - 1245 pg/mL [facility] Vit B12 SerPl-mCncon 024 Cobalamin (Vitamin B12) [Mass/Vol] 480 pg/mL Normal 232-1245 [facility] Comment on above: Order Comment: Speci men Type: BLOOD SPECIMENOrdering Facility: [facility] Address: [address] [place] [address] Performed By: #### 2 132-9 ####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] Order(s):VITAMIN B12 [SQB12] Order #: [id number] FUTURE COMPLETE BLOOD COUNT AND DIFFERENTIAL [SQCBCDIF] Order #: [id number] FUTURE Cyanocobalamin 1,000 mcg TbERTake 1 tablet [...] Status:Closed by JEANNETTE OLIVEIRA on 08/16/23 Normal [facility] ALBUMIN/CREATININE RATIO, UR SHERLEYon 08-08-2023 Albumin DL <= 20 mg/L (U) [Mass/Vol] [facility] Albumin/Creatinine (U) [Mass ratio] <30 mg/g [facility] Creatinine (U) [Mass/Vol] 92.5 mg/dL 20.0 - 300.0 mg/dL [facility] CBC W Auto Differential pane l (Bld)on 08-08-2023 Basophils (Bld) [#/Vol] 0.04 10*3/uL <0.11 k/uL [facility] Basophils/100 WBC (Bld) 0.8 % [facility] Differential cell count method Nom (Bld) Auto [facility] Eosinophils (Bld) [#/Vol] 0.14 10*3/uL <0.46 k/uL [facility] Eosinophils/100 WBC (Bld) 2.9 % [facility] Erythrocyte distribution width (RBC) [Ratio] 14.6 % 11.5 - 15.0 % [facility] Hematocrit (Bld) [Volume fraction] 39.3 % 39.0 - 51.0 % [facility] Hemoglobin (Bld) [Mass/Vol] 12.7 g/dL Low 13.0 - 17.0 g/dL [facility] Immature granulocytes (Bld) [#/Vol] <0.10 k/uL [facility] Immature granulocytes/100 WBC (Bld) 0.2 % [facility] Lymphocytes (Bld) [#/Vol] 1.94 10*3/uL 1.00 - 4.00 k/uL [facility] Lymphocytes/100 WBC (Bld) 40.8 % [facility] MCH (RBC) [Entitic mass] 32.5 pg 26.0 - 34.0 pg [facility] MCHC (RBC) [Mass/Vol] 32.3 g/dL 30.5 - 36.0 g/dL [facility] MCV (RBC) [Entitic vol] 100.5 fL High 80.0 - 100.0 fL [facility] Monocytes (Bld) [#/Vol] 0.59 10*3/uL <0.87 k/uL [facility] Monocytes/100 WBC (Bld) 12.4 % [facility] Neutrophils (Bld) [#/Vol] 2.03 10*3/uL 1.45 - 7.50 k/uL [facility] Neutrophils/100 WBC (Bld) 42.9 % [facility] Nucleated RBC (Bld) [#/Vol] <0.01 k/uL [facility] Nucleated RBC/100 WBC (Bld) [Ratio] 0.0 /100 WBC [facility] Platelet mean volume (Bld) [Entitic vol] 9.9 fL 9.0 - 12.7 fL [facility] Platelets (Bld) [#/Vol] 179 10*3/uL 150 - 400 k/uL [facility] RBC (Bld) [#/Vol] 3.91 10*6/uL Low 4.20 - 6.0 0 m/uL [facility] WBC (Bld) [#/Vol] 4.75 10*3/uL 3.70 - 11. 00 k/uL [facility] Comprehensive metabolic 2000 panelon 08-08-2023 Albumin [Mass/Vol] 4.1 g/dL 3.9 - 4.9 g/dL [facility] ALP [Catalytic activity/Vol] 71 U/L 38 - 113 U/L [facility] ALT [Catalytic activity/Vol] 12 U/L 10 - 54 U/L [facility] Anion gap [Moles/Vol] 12 mmol/L 9 - 18 mmol/L [facility] AST [Catalytic activity/Vol] 20 U/L 14 - 40 U/L [facility] Bilirubin [Mass/Vol] 0.4 mg/dL 0.2 - 1 .3 mg/dL [facility] Calcium [Mass/Vol] 9.8 mg/dL 8.5 - 10. 2 mg/dL [facility] Chloride [Moles/Vol] 105 mmol/L 97 - 10 5 mmol/L [facility] CO2 [Moles/Vol] 25 mmol/L 22 - 30 mmol/L [facility] Creatinine [Mass/Vol] 1.17 mg/dL 0.73 - 1.22 mg/dL [facility] Estimated Glomerular Filtration Rate 64 mL/min/1.73m >=60 mL/min/1.73m [facility] Glucose [Mass/Vol] 108 mg/dL High 74 - 99 mg/dL [facility] Potassium [Moles/Vol] 4.2 mmol/L 3.7 - 5.1 mmol/L [facility] Protein [Mass/Vol] 7.3 g/dL 6.3 - 8.0 g/dL [facility] Sodium [Moles/Vol] 142 mmol/L 136 - 144 mmol/L [facility] Urea nitrogen [Mass/Vol] 17 mg/dL 9 - 24 mg/dL [facility] HbA1c (Bld)on 08-08-2023 Average glucose Estimated from glycated hemoglobin (Bld) [Mass/Vol] 137 mg/dL [facility] HbA1c (Bld) [Mass fraction] 6.4 % High 4.3 - 5.6 % [facility] LIPID PANEL, NONFASTINGon Cholesterol [Mass/Vol] 133 mg/dL <200 mg/dL [facility] HDL Cholesterol, Nonfasting 41 mg/dL >39 mg/dL [facility] LDL Cholesterol, Nonfasting 64 mg/dL <100 mg/dL [facility] LDL/HDL Ratio, Nonfasting 1.56 mg/dL <2.54 mg/dL [facility] Non HDL Cholesterol, Nonfasting 92 mg/dL <130 mg/dL [facility] Total Chol/HDL Ratio, Nonfasting 3.24 mg/dL <5.10 mg/dL [facility] Triglycerides, Nonfasting 142 mg/dL <150 mg/dL [facility] VLDL Cholesterol, Nonfasting 28 mg/dL <30 mg/dL [facility] PROSTATE-SPECIFIC ANTIGEN DI AGNOSTICon 08-08-2023 Prostate specific Ag [Mass/Vol] 1.92 ng/mL <2.60 ng/mL [facility] Urinalysis complete panel (U )on 08-08-2023 Bacteria LM.HPF (Urine sed) [#/Area] Negative Negative /HPF [facility] Bilirubin Ql (U) Negative Negative [facility] Clarity (Unsp spec) Clear Clear [facility] Color (U) Yellow Yellow [facility] Epithelial cells LM.HPF (Urine sed) [#/Area] None Seen [facility] Glucose Test strip (U) [Mass/Vol] Negative Negative [facility] Hemoglobin Ql (U) Negative Negative [facility] Hyaline casts (Urine sed) [#/Area] 0 /[LPF] 0 /LPF [facility] Ketones Ql (U) Negative Negative [facility] Leukocyte esterase Test strip Ql (U) Negative Negative [facility] Nitrite Ql (U) Negative Negative [facility] pH (U) 6.0 [pH] <8.5 [facility] Protein (U) [Mass/Vol] Negative Negative [facility] RBC LM.HPF (Urine sed) [#/Area] 0-2 /HPF 0-2 /HPF [facility] Specific gravity (U) [Rel density] 1.015 1.005 - 1.030 [facility] Urobilinogen Ql (U) 0.2 EU/dL 0.2-1.0 EU/dL [facility] WBC LM.HPF (Urine sed) [#/Area] 0-5 /HPF 0-5 /HPF [facility] Glucose Glucometer (BldC) [M ass/Vol]Ordered By: César Tijerina on 04-14-2023 Glucose [Mass/Vol] 233 mg/dL 74-106 [facility] Comment on above: MANAGEMENT OF PATIEN T CARE PER NURSING PROTOCOL Absolute lymphocyte countOrd ered By: Lenore Robledo on 04-13-2023 Lymphocytes Auto (Unsp spec) [#/Vol] 1.45 10*3/uL 0.83-4.51 [facility] Basophil percentageOrdered B y: Lenore Robledo on 04-13-2023 Basophils/100 WBC (Bld) 0.4 % 0-1 [facility] Chloride [Moles/Vol] 106 mmol/L 98-107 [facility] Eosinophils/100 WBC (Bld) 0.1 % 0-5 [facility] Glucose [Mass/Vol] 229 mg/dL 74-106 [facility] Comment on above: Glucose result great er than or equal to 200 mg/dLsuggests DIABETES MELLITUS per A.D.A. criteria. Neutrophils (Bld) [#/Vol] 5.8 10*3/uL 2.0-7.7 [facility] Neutrophils/100 WBC (Bld) 69.9 % 47-70 [facility] Potassium [Moles/Vol] 3.9 mmol/L 3.5-5.1 [facility] Sodium [Moles/Vol] 137 mmol/L 136-145 [facility] WBC (Bld) [#/Vol] 8.3 10*3/uL 4.4-11.0 [facility] Blood erythrocytes count (nu mber/volume)Ordered By: Lenore Robledo on 04-13-2023 RBC (Bld) [#/Vol] 3.28 10*6/uL 4.6-6.2 [facility] Blood hemoglobin measurement (mass/volume)Ordered By: Lenore Robledo on 04-13-2023 Hemoglobin (Bld) [Mass/Vol] 11.2 g/dL 13.0-16.5 [facility] Blood lymphocytes/100 leukoc ytesOrdered By: Lenore Robledo on 04-13-2023 Lymphocytes/100 WBC (Bld) 17.4 % 19-41 [facility] Blood monocytes/100 leukocyt esOrdered By: Lenore Robledo on 04-13-2023 Monocytes/100 WBC (Bld) 11.7 % 0-10 [facility] Blood platelet mean volumeOr dered By: Lenore Robledo on 04-13-2023 Platelet mean volume (Bld) [Entitic vol] 9.4 fL 6.2-12.0 [facility] Determination of erythrocyte mean corpuscular volume (MCV)Ordered By: Lenore Robledo on 04-13-2023 MCV (RBC) [Entitic vol] 103.0 fL 80-94 [facility] Hematocrit Auto (Bld) [Volum e fraction]Ordered By: Lenore Robledo on 04-13-2023 Hematocrit (Bld) [Volume fraction] 33.8 % 40-54 [facility] Laboratory - Chemistry and C hemistry - challengeOrdered By: Lenore Robledo on 04-13-2023 CO2 [Moles/Vol] 25.0 mmol/L 21.0-32.0 [facility] Natriuretic peptide B (Bld) [Mass/Vol] 94.6 pg/mL 0-100 [facility] Urea nitrogen/Creatinine [Mass ratio] 11.1 mg/mg 10-20 [facility] Laboratory - Hematology and Cell countsOrdered By: Lenore Robledo on 04-13-2023 Erythrocyte distribution width (RBC) [Entitic vol] 53.0 fL 35.1-43.9 [facility] Erythrocyte distribution width (RBC) [Ratio] 13.9 % 11.6-14.6 [facility] Immature granulocytes/100 WBC (Bld) 0.500 % 0.0-0.9 [facility] Comment on above: IG% - Immature Granu locytes (promyelocytes, myelocytes and metamyelocytes) > 1% indicates that a LEFT SHIFT is Present. MCH (RBC) [Entitic mass] 34.1 pg 27.0-32.0 [facility] Nucleated RBC/100 WBC (Bld) [Ratio] 0 % 0-5 [facility] Auto (RBC) [Mass/Vol]Or dered By: Lenore Robledo on 04-13-2023 MCHC (RBC) [Mass/Vol] 33.1 g/dL 32-36 [facility] No Panel InformationOrdered By: Lenore Robledo on 04-13-2023 Estimated Creatinine Clearance Calc 40.70 ml/min [facility] Estimated GFR (MDRD) Amer 66 mL/min >60 [facility] Comment on above: GFR Calc Estimated GFR (MDRD) Non-Af Amer 54 mL/min >60 [facility] Comment on above: Non- GFR Calc Platelets bldOrdered By: Astrid Robledo on 04-13-2023 Platelets (Bld) [#/Vol] 132 10*3/uL 150-450 [facility] Respiratory pathogens detect ion panel by molecular detection methodOrdered By: Lenore Robledo on 04-13-2023 Respiratory pathogens DNA and RNA panel JOYCE+probe (Resp) [facility] Serum or plasma calcium jose urement (mass/volume)Ordered By: Lenore Robledo on 04-13-2023 Calcium [Mass/Vol] 8.8 mg/dL 8.5-10.1 [facility] Serum or plasma creatinine m easurement (mass/volume)Ordered By: Lenore Robledo on 04-13-2023 Creatinine [Mass/Vol] 1.35 mg/dL 0.70-1.30 [facility] Comment on above: The validity of the calculated GFR & GFRAA in patients over 70 years has not been determined. Clinical correlation is essential. Serum or plasma urea nitroge n measurement (mass/volume)Ordered By: Lenore Robledo on 04-13-2023 Urea nitrogen [Mass/Vol] 15 mg/dL 7-18 [facility] Thin prep Papanicolaou smear with manual screeningOrdered By: Lenore Robledo on 04-13-2023 Thin prep Papanicolaou smear with manual screening 6 - [facility] INR in Blood by Coagulation assayOrdered By: César Tijerina on 03-20-2023 INR Coag (Bld) [Relative time] 1.0 {INR} [facility] Laboratory - CoagulationOrde red By: César Tijerina on 03-20-2023 aPTT Coag (Bld) [Time] 32.2 s 24.1-36.2 [facility] PT Coag (PPP) [Time] 13.6 s 11.7-14.9 [facility] Whole blood hemoglobin A1c/t otal hemoglobin ratio (mass fraction)Ordered By: Neo Henry on 03-20-2023 HbA1c (Bld) [Mass fraction] 6.3 % 3.8-5.6 [facility] Comment on above: Normal < 5.7 % Predi abetic 5.7 - 6.4 % Diabetic >or= 6.5 % Please note range changes. Basophil percentageOrdered B y: Dr. Michael on 07-04-2022 Bilirubin [Mass/Vol] 0.60 mg/dL 0.20-1.00 [facility] Comment on above: For patients on eltr ombopag therapy, use of Dimension [place] TBIL is not recommended. Cholesterol [Mass/Vol] 110 mg/dL <200 [facility] Comment on above: <200 mg/dL Desirable 200-240 mg/dL Borderline >240 mg/dL High Risk Protein [Mass/Vol] 7.2 g/dL 6.4-8.2 [facility] Triglyceride [Mass/Vol] 135 mg/dL <199 [facility] Comment on above: The drugs N-Acetylcy steine and Metamizole may falsely depress this assay.Serum Triglycerides Reference Interval Normal <150 mg/dL Borderline high 150 - 199 mg/dL High 200 - 499 mg/dL Very High > or = 500 mg/dL Basophil percentageOrdered B y: January Loera on 07-04-2022 Chloride [Moles/Vol] 107 mmol/L 98-107 [facility] Glucose [Mass/Vol] 156 mg/dL 74-106 [facility] Comment on above: Fasting Glucose resu lt greater than or equal to 126 mg/dL suggests DIABETES MELLITUS per A.D.A. criteria. Potassium [Moles/Vol] 4.0 mmol/L 3.5-5.1 [facility] Sodium [Moles/Vol] 143 mmol/L 136-145 [facility] Direct bilirubinOrdered By: Dr. Michael on 07-04-2022 Bilirubin.direct [Mass/Vol] 0.20 mg/dL 0.00-0.30 [facility] Laboratory - Chemistry and C hemistry - challengeOrdered By: Dr. Michael on 07-04-2022 ALP [Catalytic activity/Vol] 49 U/L 45-117 [facility] ALT [Catalytic activity/Vol] 23 U/L 16-61 [facility] Globulin (S) [Mass/Vol] 3.7 g/dL 2.2-4.2 [facility] Laboratory - Chemistry and C hemistry - challengeOrdered By: January Loera on 07-04-2022 CO2 [Moles/Vol] 27.0 mmol/L 21.0-32.0 [facility] Urea nitrogen/Creatinine [Mass ratio] 13.3 mg/mg 10-20 [facility] Natriuretic peptide B (Bld) [Mass/Vol] 57.4 pg/mL 0-100 [facility] No Panel InformationOrdered By: January Loera on 07-04-2022 Estimated GFR (MDRD) Amer 81 mL/min >60 [facility] Comment on above: GFR Calc Estimated GFR (MDRD) Non-Af Amer 67 mL/min >60 [facility] Comment on above: Non- GFR Calc Serum or plasma albumin jose urement (mass/volume)Ordered By: Dr. Michael on 07-04-2022 Albumin [Mass/Vol] 3.5 g/dL 3.2-5.0 [facility] Serum or plasma calcium jose urement (mass/volume)Ordered By: January Loera on 07-04-2022 Calcium [Mass/Vol] 9.1 mg/dL 8.5-10.1 [facility] Serum or plasma cholesterol in HDL measurement (mass/volume)Ordered By: Dr. Michael on 07-04-2022 Cholesterol in HDL [Mass/Vol] 49 mg/dL >40 [facility] Comment on above: The drugs N-Acetylcy steine and Metamizole may falsely depress this assay. Reference Range HDL <40 mg/dL Low HDL Cholesterol HDL >or= 60 mg/dL High HDL Cholesterol Serum or plasma cholesterol in VLDL measurement (mass/volume)Ordered By: Dr. Michael on 07-04-2022 Cholesterol in VLDL [Mass/Vol] 27 mg/dL 5-40 [facility] Serum or plasma creatinine m easurement (mass/volume)Ordered By: January Loera on 07-04-2022 Creatinine [Mass/Vol] 1.13 mg/dL 0.70-1.30 [facility] Comment on above: The validity of the calculated GFR & GFRAA in patients over 70 years has not been determined. Clinical correlation is essential. Serum or plasma low density lipoprotein (LDL) cholesterol measurement (mass/volume)Ordered By: Dr. Michael on 07-04-2022 Cholesterol in LDL [Mass/Vol] 34 mg/dL 0-130 [facility] Serum or plasma urea nitroge n measurement (mass/volume)Ordered By: January Loera on 07-04-2022 Urea nitrogen [Mass/Vol] 15 mg/dL 7-18 [facility] Thin prep Papanicolaou smear with manual screeningOrdered By: Dr. Michael on 07-04-2022 Thin prep Papanicolaou smear with manual screening 18 U/L 15-37 [facility] Thin prep Papanicolaou smear with manual screeningOrdered By: January Loera on 07-04-2022 Thin prep Papanicolaou smear with manual screening 9 5-15 [facility] CBC W Auto Differential pane l (Bld)on 05-31-2022 Basophils (Bld) [#/Vol] 0.03 10*3/uL <0.11 k/uL [facility] Basophils/100 WBC (Bld) 0.6 % [facility] Differential cell count method Nom (Bld) Auto [facility] Eosinophils (Bld) [#/Vol] 0.17 10*3/uL <0.46 k/uL [facility] Eosinophils/100 WBC (Bld) 3.3 % [facility] Erythrocyte distribution width (RBC) [Ratio] 14.2 % 11.5 - 15.0 % [facility] Hematocrit (Bld) [Volume fraction] 42.1 % 39.0 - 51.0 % [facility] Hemoglobin (Bld) [Mass/Vol] 13.6 g/dL 13.0 - 17.0 g/dL [facility] Immature granulocytes (Bld) [#/Vol] <0.10 k/uL [facility] Immature granulocytes/100 WBC (Bld) 0.2 % [facility] Lymphocytes (Bld) [#/Vol] 1.75 10*3/uL 1.00 - 4.00 k/uL [facility] Lymphocytes/100 WBC (Bld) 33.6 % [facility] MCH (RBC) [Entitic mass] 33.7 pg 26.0 - 34.0 pg [facility] MCHC (RBC) [Mass/Vol] 32.3 g/dL 30.5 - 36.0 g/dL [facility] MCV (RBC) [Entitic vol] 104.2 fL High 80.0 - 100.0 fL [facility] Monocytes (Bld) [#/Vol] 0.59 10*3/uL <0.87 k/uL [facility] Monocytes/100 WBC (Bld) 11.3 % [facility] Neutrophils (Bld) [#/Vol] 2.66 10*3/uL 1.45 - 7.50 k/uL [facility] Neutrophils/100 WBC (Bld) 51.0 % [facility] Nucleated RBC (Bld) [#/Vol] <0.01 k/uL [facility] Nucleated RBC/100 WBC (Bld) [Ratio] 0.0 /100 WBC [facility] Platelet mean volume (Bld) [Entitic vol] 10.2 fL 9.0 - 12.7 fL [facility] Platelets (Bld) [#/Vol] 207 10*3/uL 150 - 400 k/uL [facility] RBC (Bld) [#/Vol] 4.04 10*6/uL Low 4.20 - 6.0 0 m/uL [facility] WBC (Bld) [#/Vol] 5.21 10*3/uL 3.70 - 11. 00 k/uL [facility] Comprehensive metabolic 2000 panelon 05-31-2022 Albumin [Mass/Vol] 4.2 g/dL 3.9 - 4.9 g/dL [facility] ALP [Catalytic activity/Vol] 48 U/L 38 - 113 U/L [facility] ALT [Catalytic activity/Vol] 21 U/L 10 - 54 U/L [facility] Anion gap [Moles/Vol] 10 mmol/L 9 - 18 mmol/L [facility] AST [Catalytic activity/Vol] 27 U/L 14 - 40 U/L [facility] Bilirubin [Mass/Vol] 0.6 mg/dL 0.2 - 1 .3 mg/dL [facility] Calcium [Mass/Vol] 9.7 mg/dL 8.5 - 10. 2 mg/dL [facility] Chloride [Moles/Vol] 108 mmol/L High 97 - 10 5 mmol/L [facility] CO2 [Moles/Vol] 25 mmol/L 22 - 30 mmol/L [facility] Creatinine [Mass/Vol] 0.89 mg/dL 0.73 - 1.22 mg/dL [facility] Estimated Glomerular Filtration Rate 88 mL/min/1.73m >=60 mL/min/1.73m [facility] Glucose [Mass/Vol] 156 mg/dL High 74 - 99 mg/dL [facility] Potassium [Moles/Vol] 4.7 mmol/L 3.7 - 5.1 mmol/L [facility] Protein [Mass/Vol] 7.2 g/dL 6.3 - 8.0 g/dL [facility] Sodium [Moles/Vol] 143 mmol/L 136 - 144 mmol/L [facility] Urea nitrogen [Mass/Vol] 14 mg/dL 9 - 24 mg/dL [facility] LIPID PANEL, NONFASTINGon Cholesterol [Mass/Vol] 117 mg/dL <200 mg/dL [facility] HDL Cholesterol, Nonfasting 51 mg/dL >39 mg/dL [facility] LDL Cholesterol, Nonfasting 49 mg/dL <100 mg/dL [facility] LDL/HDL Ratio, Nonfasting 0.96 mg/dL <2.54 mg/dL [facility] Non HDL Cholesterol, Nonfasting 66 mg/dL <130 mg/dL [facility] Total Chol/HDL Ratio, Nonfasting 2.29 mg/dL <5.10 mg/dL [facility] Triglycerides, Nonfasting 85 mg/dL <150 mg/dL [facility] VLDL Cholesterol, Nonfasting 17 mg/dL <30 mg/dL [facility] PSA/PROSTSPECAG DIAGon 05-31 Prostate specific Ag [Mass/Vol] 1.42 ng/mL <2.60 ng/mL [facility] C-REACTIVE PROTEIN (CRP)on 0 09-19-2021 CRP [Mass/Vol] mg/L <0.9 mg/dL [facility] CBC W Auto Differential pane l (Bld)on 09-19-2021 Abs Immature Gran <0.03 <0.10 k/uL [facility] Basophils (Bld) [#/Vol] 0.05 10*3/uL <0.11 k/uL [facility] Basophils/100 WBC (Bld) 0.7 % [facility] Differential cell count method Nom (Bld) Auto [facility] Eosinophils (Bld) [#/Vol] 0.09 10*3/uL <0.46 k/uL [facility] Eosinophils/100 WBC (Bld) 1.2 % [facility] Erythrocyte distribution width (RBC) [Ratio] 13.3 % 11.5 - 15.0 % [facility] Hematocrit (Bld) [Volume fraction] 43.0 % 39.0 - 51.0 % [facility] Hemoglobin (Bld) [Mass/Vol] 14.5 g/dL 13.0 - 17.0 g/dL [facility] Immature Gran % 0.3 % [facility] Lymphocytes (Bld) [#/Vol] 2.18 10*3/uL 1.00 - 4.00 k/uL [facility] Lymphocytes/100 WBC (Bld) 29.1 % [facility] MCH (RBC) [Entitic mass] 34.1 pg High 26.0 - 34.0 pg [facility] MCHC (RBC) [Mass/Vol] 33.7 g/dL 30.5 - 36.0 g/dL [facility] MCV (RBC) [Entitic vol] 101.2 fL High 80.0 - 100.0 fL [facility] Monocytes (Bld) [#/Vol] 0.80 10*3/uL <0.87 k/uL [facility] Monocytes/100 WBC (Bld) 10.7 % [facility] Neutrophils (Bld) [#/Vol] 4.35 10*3/uL 1.45 - 7.50 k/uL [facility] Neutrophils/100 WBC (Bld) 58.0 % [facility] Nucleated RBC (Bld) [#/Vol] 10*3/uL <0.01 k/uL [facility] Nucleated RBC/100 WBC (Bld) [Ratio] 0.0 /100 WBC [facility] Platelet mean volume (Bld) [Entitic vol] 9.0 fL 9.0 - 12.7 fL [facility] Platelets (Bld) [#/Vol] 274 10*3/uL 150 - 400 k/uL [facility] RBC (Bld) [#/Vol] 4.25 10*6/uL 4.20 - 6.0 0 m/uL [facility] WBC (Bld) [#/Vol] 7.49 10*3/uL 3.70 - 11. 00 k/uL [facility] Comprehensive metabolic 2000 panelon 09-19-2021 Albumin [Mass/Vol] 4.7 g/dL 3.9 - 4.9 g/dL [facility] ALP [Catalytic activity/Vol] 62 U/L 38 - 113 U/L [facility] ALT [Catalytic activity/Vol] 17 U/L 10 - 54 U/L [facility] Anion gap [Moles/Vol] 12 mmol/L 9 - 18 mmol/L [facility] AST [Catalytic activity/Vol] 20 U/L 14 - 40 U/L [facility] Bilirubin [Mass/Vol] 0.6 mg/dL 0.2 - 1 .3 mg/dL [facility] Calcium [Mass/Vol] 10.4 mg/dL High 8.5 - 10. 2 mg/dL [facility] Chloride [Moles/Vol] 100 mmol/L 97 - 10 5 mmol/L [facility] CO2 [Moles/Vol] 27 mmol/L 22 - 30 mmol/L [facility] Creatinine [Mass/Vol] 1.22 mg/dL 0.73 - 1.22 mg/dL [facility] Estimated Glomerular Filtration Rate 61 mL/min/1.73m >=60 mL/min/1.73m [facility] Glucose [Mass/Vol] 147 mg/dL High 74 - 99 mg/dL [facility] Potassium [Moles/Vol] 4.9 mmol/L 3.7 - 5.1 mmol/L [facility] Protein [Mass/Vol] 7.8 g/dL 6.3 - 8.0 g/dL [facility] Sodium [Moles/Vol] 139 mmol/L 136 - 144 mmol/L [facility] Urea nitrogen [Mass/Vol] 25 mg/dL High 9 - 24 mg/dL [facility] Basophil percentageon 2021 Bilirubin [Mass/Vol] 0.70 mg/dL 0.20-1.00 [facility] Work Phone: Comment on above: For patients on eltr ombopag therapy, use of Dimension [place] TBIL is not recommended. Cholesterol [Mass/Vol] 117 mg/dL <200 [facility] Work Phone: [phone] Comment on above: <200 mg/dL Desirable 200-240 mg/dL Borderline >240 mg/dL High Risk Protein [Mass/Vol] 7.5 g/dL 6.4-8.2 [facility] Work Phone: [phone] Triglyceride [Mass/Vol] 131 mg/dL [facility] Work Phone: [phone] Comment on above: The drugs N-Acetylcy steine and Metamizole may falsely depress this assay.Serum Triglycerides Reference Interval Normal <150 mg/dL Borderline high 150 - 199 mg/dL High 200 - 499 mg/dL Very High > or = 500 mg/dL Direct bilirubinon Bilirubin.direct [Mass/Vol] 0.19 mg/dL 0.00-0.30 [facility] Work Phone: [phone] Laboratory - Chemistry and C hemistry - challengeon 07-21-2021 ALP [Catalytic activity/Vol] 52 U/L 45-117 [facility] Work Phone: [phone] ALT [Catalytic activity/Vol] 24 U/L 16-61 [facility] Work Phone: [phone] Globulin (S) [Mass/Vol] 3.8 g/dL 2.2-4.2 [facility] Work Phone: [phone] Serum or plasma albumin jose urement (mass/volume)on 07-21-2021 Albumin [Mass/Vol] 3.7 g/dL 3.2-5.0 [facility] Work Phone: [phone] Serum or plasma cholesterol in HDL measurement (mass/volume)on 07-21-2021 Cholesterol in HDL [Mass/Vol] 48 mg/dL [facility] Work Phone: [phone] Comment on above: The drugs N-Acetylcy steine and Metamizole may falsely depress this assay. Reference Range HDL <40 mg/dL Low HDL Cholesterol HDL >or= 60 mg/dL High HDL Cholesterol Serum or plasma cholesterol in VLDL measurement (mass/volume)on 07-21-2021 Cholesterol in VLDL [Mass/Vol] 26 mg/dL 5-40 [facility] Work Phone: Serum or plasma low density lipoprotein (LDL) cholesterol measurement (mass/volume)on 07-21-2021 Cholesterol in LDL [Mass/Vol] 43 mg/dL 0-130 [facility] Work Phone: Thin prep Papanicolaou smear with manual screeningon 07-21-2021 Thin prep Papanicolaou smear with manual screening 21 U/L 15-37 [facility] Work Phone: XR Chest PA and Lateralon IMPRESSION: Bilateral pulmonary parenchymal opacities related to scarring or infiltrates. Small right-sided pleural effusion. Pick Up Driver: RICARDO Transcribe Date/Time: Feb 11 2021 2:24P Dictated by : DAVID CLEMONS MD This examination was interpreted and the report reviewed and electronically signed by: DAVID CLEMONS MD on Feb 11 2021 2:28PM [facility] DIVISION OF RADIOLOGY * * *Final [...] soft tissues: Unremarkable. DIVISION OF RADIOLOGY Provider, [facility] * * *Final Report* * [...] scarring or infiltrates. Small right-sided pleural effusion. Pick Up Driver: PSCB Transcribe Date/Time: Feb 11 2021 2:24P Dictated by : DAVID CLEMONS MD This examination was interpreted and the report reviewed and electronically signed by: DAVID CLEMONS MD on Feb 11 2021 2:28PM EST [facility] Radiology Study observation (narrative) [facility] XR Chest PA and LateralOrder ed By: Ccf Provider on 02-11-2021 [facility] Office Visiton 01-29-2017 Documentation of current medications (procedure) Done Invalid Interpretation Code [facility] Work Phone: [phone] Protein mass conc Done Invalid Interpretation Code [facility] Work Phone: [phone] Lab Report: Lipid Profileon 01-20-2017 HDL Cholesterol 45 mg/dL Invalid Interpretation Code [facility] Work Phone: [phone] LDL Cholesterol 37 mg/dL Invalid Interpretation Code 0-130 [facility] Work Phone: [phone] very low density lipoproteins 19 mg/dL Invalid Interpretation Code 5-40 [facility] Work Phone: [phone] Cholesterol 101 mg/dL Invalid Interpretation Code 200 [facility] Work Phone: [phone] Triglyceride 94 mg/dL Invalid Interpretation Code [facility] Work Phone: [phone] Replaced Document: Liver Pro fileon 01-20-2017 Alanine aminotransferase (ALT) 26 U/L Invalid Interpretation Code 12-78 [facility] Work Phone: [phone] Albumin 3.5 g/dL Invalid Interpretation Code 3.4-5.0 [facility] Work Phone: [phone] Alkaline phosphatase (ALP) 54 U/L Invalid Interpretation Code 45-117 [facility] Work Phone: [phone] ALP enzyme act/vol (Bld) 54 U/L Invalid Interpretation Code 45-117 [facility] Work Phone: [phone] Aspartate aminotransferase (AST) 21 U/L Invalid Interpretation Code 15-37 [facility] Work Phone: [phone] Bilirubin (direct) 0.16 mg/dL Invalid Interpretation Code 0.00-0.30 [facility] Work Phone: [phone] Bilirubin (total) 0.60 mg/dL Invalid Interpretation Code 0.20-1.00 [facility] Work Phone: [phone] Globulin 3.4 g/dL Invalid Interpretation Code 2.3-3.5 [facility] Work Phone: [phone] Globulin mass conc (S) 3.4 g/dL 2.3-3.5 [facility] Work Phone: [phone] Protein 6.9 g/dL Invalid Interpretation Code 6.4-8.2 [facility] Work Phone: [phone] Office Visiton 07-17-2016 Documentation of current medications (procedure) Done Invalid Interpretation Code [employer] Phone: [phone] 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 Left ventricular Ejection fraction 55 % Invalid Interpretation Code [facility] Phone: [phone] Office Visiton 07-19-2015 Tobacco smoking status NHIS Former smoker Invalid Interpretation Code [facility] Work Phone: [phone] Tobacco use CPHS Former smoker Invalid Interpretation Code [facility] Work Phone: [phone] Office Visiton 01-26-2015 cardiac risk group C Invalid Interpretation Code [facility] Phone: [phone] Dietary management education, guidance, and counseling (procedure) yes Invalid Interpretation Code [facility] Work Phone: [phone] General cardiovascular disease 10Y risk [#] [facility]amar[facility]Agocal N/A Invalid Interpretation Code [facility] Work Phone: [phone] EKG Report: [facility] ECG Obse rvationson 01-20-2014 GE use only - for [employer] import when terms are not otherwise specified 399 ms Invalid Interpretation Code [facility] Work Phone: [phone] QTc [place] 399 ms Invalid Interpretation Code [facility] Work Phone: [phone] Replaced Document: Joe Naik CG Observationson 01-20-2014 EKG QRS axis -9 deg Invalid Interpretation Code [facility] Work Phone: [phone] electrocardiogram interpretation Sinus Rhythm -First degree A-V block [place] = 230BORDERLINE RHYTHM Invalid Interpretation Code [facility] Work Phone: [phone] Interpretation Sinus Rhythm -First degree A-V block [place] = 230BORDERLINE RHYTHM Invalid Interpretation Code [facility] Work Phone: [phone] P [place] 36 deg Invalid Interpretation Code [facility] Work Phone: [phone] P wave axis, electrocardiogram 36 deg Invalid Interpretation Code [facility] Work Phone: [phone] MI Interval 230 ms Invalid Interpretation Code [facility] Work Phone: [phone] MI interval, electrocardiogram 230 ms Invalid Interpretation Code [facility] Work Phone: [phone] Pulse (Heart Rate) 401 ms Invalid Interpretation Code [facility] Work Phone: [phone] Pulse (Heart Rate) 61 /min Invalid Interpretation Code [facility] Phone: [phone] QRS axis, electrocardiogram -9 deg Invalid Interpretation Code [facility] Work Phone: [phone] QRS Duration 94 ms Invalid Interpretation Code [facility] Work Phone: [phone] QRS duration, electrocardiogram 94 ms Invalid Interpretation Code [facility] Work Phone: [phone] QT Interval new path ms Invalid Interpretation Code [facility] Work Phone: QT interval, electrocardiogram new path ms Invalid Interpretation Code [facility] Work Phone: T [place] 12 deg Invalid Interpretation Code [facility] Work Phone: T wave axis, electrocardiogram 12 deg Invalid Interpretation Code [facility] Work Phone: [phone] Clinical Lists Update: 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 Anion gap 8 mmol/L Invalid Interpretation Code [facility] Work Phone: [phone] Anion gap 4 molar conc 8 Invalid Interpretation Code [facility] Work Phone: [phone] Anion gap molar conc 8 mmol/L [facility] Work Phone: [phone] BUN/Creatinine Ratio 15 mg/mg Invalid Interpretation Code [facility] Work Phone: [phone] Calcium 8.9 mg/dL Invalid Interpretation Code [facility] Work Phone: [phone] Chloride 109 mmol/L High [facility] Work Phone: [phone] CO2 25 mmol/L Invalid Interpretation Code [facility] Work Phone: [phone] CO2 ppres (BldV) 25 mmol/L Invalid Interpretation Code [facility] Work Phone: [phone] Creatinine 1.0 mg/dL Invalid Interpretation Code [facility] Work Phone: [phone] Glucose 122 mg/dL High [facility] Work Phone: [phone] Glucose mass conc 122 mg/dL High [facility] Work Phone: [phone] Potassium 4.0 mmol/L Invalid Interpretation Code [facility] Work Phone: [phone] Sodium 142 mmol/L Invalid Interpretation Code [facility] Work Phone: [phone] Urea nitrogen 15 mg/dL Invalid Interpretation Code [facility] Work Phone: [phone] Office Visiton 05-19-2011 Alcoholism counseling (procedure) no Invalid Interpretation Code [facility] Work Phone: [phone] Protein mass conc no Invalid Interpretation Code [facility] Work Phone: [phone] Vital Signs Date Time Vital Sign Value Performing Clinician Facility 10-29-2024 10:42-0400 Diastolic blood pressure 70 mm[Hg] Dr. César Merrill MD Work Phone: [facility] 10-29-2024 10:42-0400 Heart rate 60 /min Dr. César Merrill MD Work Phone: [facility] 10-29-2024 10:42-0400 Systolic blood pressure 149 mm[Hg] Dr. César Merrill MD Work Phone: [phone] [place] [address] 10-29-2024 10:29-0400 Body height 167.[address] César Merrill MD Work Phone: [phone] [place] [address] 10-29-2024 10:29-0400 Body mass index (BMI) [Ratio] 37.3 kg/m2 Dr. César Merrill MD Work Phone: [phone] [place] [address] 10-29-2024 10:29-0400 Body weight 104.[address] César Merrill MD Work Phone: [phone] [place] [address] 10-29-2024 10:29-0400 Respiratory rate 18 /min Dr. César Merrill MD Work Phone: [phone] [place] [address] 10-09-2024 15:06-0400 Body temperature 98.2 [degF] Dr. César Merrill MD Work Phone: [phone] [place] [address] 10-09-2024 15:06-0400 Body weight 105.[address] César Merrill MD Work Phone: [phone] [place] [address] 10-09-2024 15:06-0400 Diastolic blood pressure 70 mm[Hg] Dr. César Merrill MD Work Phone: [phone] [place] [address] 10-09-2024 15:06-0400 Heart rate 83 /min Dr. César Merrill MD Work Phone: [phone] [place] [address] 10-09-2024 15:06-0400 Respiratory rate 16 /min Dr. César Merrill MD Work Phone: [phone] [place] [address] 10-09-2024 15:06-0400 SaO2% (BldA) [Mass fraction] 93 % Dr. César Merrill MD Work Phone: [phone] [place] [address] 10-09-2024 15:06-0400 Systolic blood pressure 143 mm[Hg] Dr. César Merrill MD Work Phone: [phone] [place] [address] 08-29-2024 11:06-0400 Body temperature 98.6 [degF] Dr. César Merrill MD Work Phone: [facility] 08-29-2024 11:06-0400 Body weight 104.[address] César Merrill MD Work Phone: [facility] 08-29-2024 11:06-0400 Diastolic blood pressure 63 mm[Hg] Dr. César Merrill MD Work Phone: [facility] 08-29-2024 11:06-0400 Heart rate 62 /min Dr. César Merrill MD Work Phone: [facility] 08-29-2024 11:06-0400 Respiratory rate 18 /min Dr. César Merrill MD Work Phone: [facility] 08-29-2024 11:06-0400 SaO2% (BldA) [Mass fraction] 94 % Dr. César Merrill MD Work Phone: [facility] 08-29-2024 11:06-0400 Systolic blood pressure 128 mm[Hg] Dr. César Merrill MD Work Phone: [facility] 07-24-2024 08:29-0400 Body height 165.1 cm César Merrill MD Work Phone: [facility] 07-24-2024 08:29-0400 Body mass index (BMI) [Ratio] 37.77 kg/m2 César Merrill MD Work Phone: [facility] 07-24-2024 08:29-0400 Body weight 102.97 kg César Merrill MD Work Phone: [facility] 07-24-2024 08:29-0400 Diastolic blood pressure 54 mm[Hg] César Merrill MD Work Phone: [facility] 07-24-2024 08:29-0400 Heart rate 60 /min César Merrill MD Work Phone: [facility] 07-24-2024 08:29-0400 SaO2% (BldA) [Mass fraction] 95 % César Merrill MD Work Phone: [facility] 07-24-2024 08:29-0400 Systolic blood pressure 124 mm[Hg] César Merrill MD Work Phone: [facility] 07-10-2024 09:30-0400 Body height 167.[address] César Merrill MD Work Phone: [facility] 07-10-2024 09:30-0400 Body mass index (BMI) [Ratio] 37.4 kg/m2 Dr. César Merrill MD Work Phone: [facility] 07-10-2024 09:30-0400 Body weight 105.[address] César Merrill MD Work Phone: [facility] 07-10-2024 09:30-0400 Diastolic blood pressure 65 mm[Hg] Dr. César Merrill MD Work Phone: [facility] 07-10-2024 09:30-0400 Heart rate 55 /min Dr. César Merrill MD Work Phone: [facility] 07-10-2024 09:30-0400 Respiratory rate 18 /min Dr. César Merrill MD Work Phone: [facility] 07-10-2024 09:30-0400 SaO2% (BldA) [Mass fraction] 92 % Dr. César Merrill MD Work Phone: [facility] 07-10-2024 09:30-0400 Systolic blood pressure 142 mm[Hg] Dr. César Merrill MD Work Phone: [facility] 06-10-2024 13:21-0500 Body mass index (BMI) [Ratio] 39.16 kg/m2 Deysi Cain APRN.[employer] Work Phone: [facility] 06-10-2024 13:21-0500 Body temperature 98.71 [degF] Deysi Cain APRN.[employer] Work Phone: [facility] 06-10-2024 13:21-0500 Body weight 105.1 kg Deysi Cain APRN.[employer] Work Phone: [facility] 06-10-2024 13:21-0500 Diastolic blood pressure 72 mm[Hg] Deysi Cain APRN.[employer] Work Phone: [facility] 06-10-2024 13:21-0500 Heart rate 92 /min Deysiemeli Cain APRN.[employer] Work Phone: [facility] 06-10-2024 13:21-0500 Respiratory rate 18 /min Deysiemeli Cain APRN.[employer] Work Phone: [facility] 06-10-2024 13:21-0500 SaO2% (BldA) [Mass fraction] 94 % Deysi Cain APRN.[employer] Work Phone: [facility] 06-10-2024 13:21-0500 Systolic blood pressure 142 mm[Hg] Deysi Cain APRN.[employer] Work Phone: [facility] 02-14-2024 09:13-0400 Diastolic blood pressure 58 mm[Hg] César Merrill MD Work Phone: [facility] 02-14-2024 09:13-0400 Systolic blood pressure 132 mm[Hg] César Merrill MD Work Phone: [facility] 02-14-2024 08:39-0400 Body height 163.8 cm César Merrill MD Work Phone: [facility] 02-14-2024 08:39-0400 Body mass index (BMI) [Ratio] 37.33 kg/m2 César Merrill MD Work Phone: [facility] 02-14-2024 08:39-0400 Body weight 100.2 kg César Merrill MD Work Phone: [facility] 02-14-2024 08:39-0400 Heart rate 59 /min César Merrill MD Work Phone: [facility] 08-08-2023 09:31-0400 Body height 163.8 cm César Merrill MD Work Phone: [facility] 08-08-2023 09:31-0400 Body weight 101.15 kg César Merrill MD Work Phone: [facility] 08-08-2023 09:31-0400 Diastolic blood pressure 60 mm[Hg] César Merrill MD Work Phone: [facility] 08-08-2023 09:31-0400 Heart rate 76 /min César Merrill MD Work Phone: [facility] 08-08-2023 09:31-0400 Respiratory rate 16 /min César Merrill MD Work Phone: [facility] 08-08-2023 09:31-0400 Systolic blood pressure 118 mm[Hg] César Merrill MD Work Phone: [facility] 04-19-2023 09:58-0500 Body weight 101.15 kg May Ragland MD Work Phone: [facility] 04-19-2023 09:58-0500 Diastolic blood pressure 62 mm[Hg] May Ragland MD Work Phone: [facility] 04-19-2023 09:58-0500 Heart rate 81 /min May Ragland MD Work Phone: [facility] 04-19-2023 09:58-0500 SaO2% (BldA) [Mass fraction] 96 % May Ragland MD Work Phone: [facility] 04-19-2023 09:58-0500 Systolic blood pressure 142 mm[Hg] May Ragland MD Work Phone: [facility] 04-14-2023 10:56-0500 Heart rate 88 /min Dr. César Merrill Work Phone: [facility] 04-14-2023 10:56-0500 Respiratory rate 22 /min Dr. César Merrill Work Phone: [facility] 04-14-2023 09:28-0500 Inhaled oxygen flow rate 2 L/min Dr. César Merrill Work Phone: [facility] 04-14-2023 09:28-0500 SaO2% (BldA) [Mass fraction] 91 % Dr. César Merrill Work Phone: 7(219)003-500604 [place] [address] 04-14-2023 07:37-0500 Body temperature 98.3 [degF] Dr. César Merrill Work Phone: 2(264)670-074913 [place] [address] 04-14-2023 07:37-0500 Diastolic blood pressure 56 mm[Hg] Dr. César Merrill Work Phone: 5(600)601-279013 [place] [address] 04-14-2023 07:37-0500 Systolic blood pressure 124 mm[Hg] Dr. César Merrill Work Phone: 1(248)166-001413 [place] [address] 04-12-2023 16:00-0500 Body height 167.[address] César Merrill Work Phone: 8(272)017-051313 [place] [address] 04-12-2023 16:00-0500 Body mass index (BMI) [Ratio] 37.9 kg/m2 Dr. César Merrill Work Phone: 1(449)195-902513 [place] [address] 04-12-2023 16:00-0500 Body weight 106.[address] César Merrill Work Phone: 5(556)502-540913 [place] [address] 03-26-2023 11:56-0500 Diastolic blood pressure 66 mm[Hg] Melody Jerome MEDICAL SOCIAL WORKER.[employer]OOSE [employer] PACKER Work Phone: [facility] 03-26-2023 11:56-0500 Systolic blood pressure 141 mm[Hg] Melody Jerome MEDICAL SOCIAL WORKER.[employer]OOSE [employer] PACKER Work Phone: [facility] 03-26-2023 11:50-0500 Body height 165.1 cm Melody Jerome MEDICAL SOCIAL WORKER.[employer]OOSE [employer] P[employer]ER Work Phone: [facility] 03-26-2023 11:50-0500 Body temperature 98.01 [degF] Melody Jerome MEDICAL SOCIAL WORKER.LOOSE [employer] PACKER Work Phone: [facility] 03-26-2023 11:50-0500 Body weight 103.42 kg Melody Jerome MEDICAL SOCIAL WORKER.LOOSE [employer] P[employer]ER Work Phone: [facility] 03-26-2023 11:50-0500 Heart rate 70 /min Melody Cano MEDICAL SOCIAL WORKER.LOOSE [employer] P[employer]ER Work Phone: [facility] 03-26-2023 11:50-0500 Respiratory rate 12 /min Melody Cano MEDICAL SOCIAL WORKER.[employer]OOSE [employer] P[employer]ER Work Phone: [facility] 03-26-2023 11:50-0500 SaO2% (BldA) [Mass fraction] 99 % Melody Cano MEDICAL SOCIAL WORKER.[employer]OOSE [employer] PACKER Work Phone: [facility] 03-09-2023 10:57-0500 Diastolic blood pressure 78 mm[Hg] Dr. César Merrill Work Phone: [facility] 03-09-2023 10:57-0500 Systolic blood pressure 128 mm[Hg] Dr. César Merrill Work Phone: [facility] 03-09-2023 10:27-0500 Body mass index (BMI) [Ratio] 35.9 kg/m2 Dr. César Merrill Work Phone: 8(908)652-023904 [place] [address] 03-09-2023 10:27-0500 Body weight 101.[address] César Merrill Work Phone: [facility] 03-09-2023 10:27-0500 Heart rate 94 /min Dr. César Merrill Work Phone: [facility] 03-09-2023 10:27-0500 Respiratory rate 18 /min Dr. César Merrill Work Phone: [facility] 03-09-2023 10:27-0500 SaO2% (BldA) [Mass fraction] 95 % Dr. César Merrill Work Phone: [facility] 07-04-2022 09:18-0500 Body height 167.[address] César Merrill Work Phone: 2(856)692-885604 [place] [address] 07-04-2022 09:18-0500 Body mass index (BMI) [Ratio] 35.8 kg/m2 Dr. César Merrill Work Phone: [facility] 07-04-2022 09:18-0500 Body weight 100.[address] César Merrill Work Phone: [facility] 07-04-2022 09:18-0500 Diastolic blood pressure 67 mm[Hg] Dr. César Merrill Work Phone: [facility] 07-04-2022 09:18-0500 Heart rate 62 /min Dr. César Merrill Work Phone: [facility] 07-04-2022 09:18-0500 Respiratory rate 18 /min Dr. César Merrill Work Phone: [facility] 07-04-2022 09:18-0500 SaO2% (BldA) [Mass fraction] 95 % Dr. César Merrill Work Phone: [facility] 07-04-2022 09:18-0500 Systolic blood pressure 133 mm[Hg] Dr. César Merrill Work Phone: [facility] 05-31-2022 07:54-0500 Body height 165.1 cm César Merrill MD Work Phone: [facility] 05-31-2022 07:54-0500 Body weight 100.7 kg César Merrill MD Work Phone: [facility] 05-31-2022 07:54-0500 Diastolic blood pressure 68 mm[Hg] César Merrill MD Work Phone: [facility] 05-31-2022 07:54-0500 Heart rate 64 /min César Merrill MD Work Phone: [facility] 05-31-2022 07:54-0500 Respiratory rate 16 /min César Merrill MD Work Phone: [facility] 05-31-2022 07:54-0500 Systolic blood pressure 132 mm[Hg] César Merrill MD Work Phone: [facility] 01-11-2022 10:33-0400 Diastolic blood pressure 68 mm[Hg] Dr. César Merrill Work Phone: [facility] Work Phone: 01-11-2022 10:33-0400 Heart rate 60 /min Dr. César Merrill Work Phone: [facility] Work Phone: 01-11-2022 10:33-0400 Systolic blood pressure 142 mm[Hg] Dr. César Merrill Work Phone: [facility] Work Phone: 01-11-2022 10:00-0400 Body height 167.[address] César Merrill Work Phone: [facility] Work Phone: 01-11-2022 10:00-0400 Body mass index (BMI) [Ratio] 34.8 kg/m2 Dr. César Merrill Work Phone: [facility] Work Phone: 01-11-2022 10:00-0400 Body weight 97.[address] César Merrill Work Phone: [facility] Work Phone: 01-11-2022 10:00-0400 Respiratory rate 16 /min Dr. César Merrill Work Phone: [facility] Work Phone: 11-15-2021 08:00-0400 Body weight 98.43 kg César Merrill MD Work Phone: [facility] 11-15-2021 08:00-0400 Diastolic blood pressure 84 mm[Hg] César Merrill MD Work Phone: [facility] 11-15-2021 08:00-0400 Heart rate 78 /min César Merrill MD Work Phone: [facility] 11-15-2021 08:00-0400 Respiratory rate 14 /min César Merrill MD Work Phone: [facility] 11-15-2021 08:00-0400 Systolic blood pressure 132 mm[Hg] César Merrill MD Work Phone: [facility] 09-23-2021 11:04-0400 Body temperature 98.49 [degF] Katarzyna MITCHELL-C Work Phone: [facility] 09-23-2021 11:04-0400 Body weight 96.16 kg Katarzyna PAGANC Work Phone: [facility] 09-23-2021 11:04-0400 Diastolic blood pressure 60 mm[Hg] Katarzyna MITCHELL-C Work Phone: [facility] 09-23-2021 11:04-0400 Heart rate 68 /min Katarzyna Munson PA-C Work Phone: [facility] 09-23-2021 11:04-0400 Respiratory rate 16 /min Katarzyna PAGANC Work Phone: [facility] 09-23-2021 11:04-0400 Systolic blood pressure 110 mm[Hg] Katarzyna MITCHELL-C Work Phone: [facility] 09-19-2021 09:29-0400 Body temperature 98.71 [degF] César Ghotra MEDICAL SOCIAL WORKER.[employer]OOSE [employer] P[employer]ER Work Phone: [facility] 09-19-2021 09:29-0400 Body weight 93.44 kg César Ghotra APRN.[employer]OOSE [employer] PACKER Work Phone: [facility] 09-19-2021 09:29-0400 Diastolic blood pressure 56 mm[Hg] César Ghotra MEDICAL SOCIAL WORKER.[employer]OOSE [employer] P[employer]ER Work Phone: [facility] 09-19-2021 09:29-0400 Heart rate 92 /min César Ghotra MEDICAL SOCIAL WORKER.[employer]OOSE [employer] P[employer]ER Work Phone: [facility] 09-19-2021 09:29-0400 Respiratory rate 16 /min César Ghotra MEDICAL SOCIAL WORKER.LOOSE [employer] PACKER Work Phone: [facility] 09-19-2021 09:29-0400 SaO2% (BldA) [Mass fraction] 97 % César Ghotra MEDICAL SOCIAL WORKER.[employer]OOSE [employer] P[employer]ER Work Phone: [facility] 09-19-2021 09:29-0400 Systolic blood pressure 132 mm[Hg] César Ghotra MEDICAL SOCIAL WORKER.LOOSE [employer] PACKER Work Phone: [facility] 07-14-2021 10:03-0400 Body height 167.[address] César Merrill Work Phone: [facility] Work Phone: 07-14-2021 10:03-0400 Body mass index (BMI) [Ratio] 33.3 kg/m2 Dr. César Merrill Work Phone: [facility] Work Phone: 07-14-2021 10:03-0400 Body weight 93.[address] César Merrill Work Phone: [facility] Work Phone: 07-14-2021 10:03-0400 Diastolic blood pressure 58 mm[Hg] Dr. César Merrill Work Phone: [facility] Work Phone: 07-14-2021 10:03-0400 Heart rate 60 /min Dr. César Merrill Work Phone: [facility] Work Phone: 07-14-2021 10:03-0400 Respiratory rate 16 /min Dr. César Merrill Work Phone: [facility] Work Phone: 07-14-2021 10:03-0400 Systolic blood pressure 130 mm[Hg] Dr. César Merrill Work Phone: [facility] Work Phone: 01-29-2017 08:41-0400 BMI (Body Mass Index) 31.95 kg/m2 Padma Baker [facility] Work Phone: 01-29-2017 08:41-0400 BP Diastolic 72 mm[Hg] Padma Baker [facility] Work Phone: 01-29-2017 08:41-0400 BP Systolic 130 mm[Hg] Padma Baker [facility] Work Phone: 01-29-2017 08:41-0400 Height [...] (Body Mass Index) 33.73 kg/m2 Trey Malagon DINKEY MOTOR OPERATOR [facility] Work Phone: 07-17-2016 12:00-0400 BP Diastolic 52 mm[Hg] Trey Manas DINKEY MOTOR OPERATOR [facility] Work Phone: 07-17-2016 12:00-0400 BP Systolic 128 mm[Hg] Trey Manas DINKEY MOTOR OPERATOR [facility] Work Phone: 07-17-2016 12:00-0400 Height 167.64 cm Trey Malagon DINKEY MOTOR OPERATOR [facility] Work Phone: 07-17-2016 12:00-0400 Pulse (Heart Rate) 60 /min Trey Malagon DINKEY MOTOR OPERATOR [facility] Work Phone: 07-17-2016 12:00-0400 Respiratory Rate 18 /min Trey Malagon DINKEY MOTOR OPERATOR [facility] Work Phone: 07-17-2016 12:00-0400 Weight 94.8 kg Trey Malagon DINKEY MOTOR OPERATOR [facility] Work Phone: 01-14-2016 11:48-0400 BSA (Body Surface Area) 2.06 m2 Trey Malagon DINKEY MOTOR OPERATOR [facility] Work Phone: 07-19-2015 09:04-0400 BP Diastolic 80 mm[Hg] Trey Manas DINKEY MOTOR OPERATOR [facility] Work Phone: 07-19-2015 09:04-0400 BP Systolic 130 mm[Hg] Trey Manas DINKEY MOTOR OPERATOR [facility] Work Phone: 01-20-2014 14:06-0400 Heart rate 401 ms Padma Baker [facility] Work Phone: 01-20-2014 14:06-0400 Heart rate 61 /min [facility] Work Phone: Encounters Encounter Date Encounter Type Care Provider Facility Start: 10-29-2024 Encounter for preprocedural cardiovascular examination Trey Alvarado Manas [facility] Start: 10-29-2024 End: 10-29-2024 Patient encounter procedure Trey Alvarado Manas DINKEY MOTOR OPERATOR-C -[facility] Work Phone: Start: 10-29-2024 End: 10-29-2024 Patient encounter status Trey Alvarado Manas DINKEY MOTOR OPERATOR-C [facility] Start: 10-29-2024 End: 10-29-[address] César Merrill MD Work Phone: [facility] Start: 10-17-2024 End: 10-17-2024 Chart abstracting Diamond Cain MA [facility] Comment on above: Results (Outside res ults /) Start: 10-14-2024 End: 10-14-2024 Refill César Merrill MD Work Phone: [facility] Comment on above: Refill Request Start: 10-09-2024 End: 10-09-[address] Lenny Taylor MD -[facility] Work Phone: Start: 10-09-2024 End: 10-09-[address] César Merrill MD Work Phone: [facility] Work Phone: Start: 10-03-2024 End: 10-03-[address] César Merrill MD Work Phone: [facility] Work Phone: Start: 10-03-2024 End: 10-03-2024 [facility] Start: 10-03-2024 End: 10-03-2024 ambulatory [facility] Facility:[facility] Start: 09-10-2024 End: 09-10-2024 Refill César Merrill MD Work Phone: [facility] Comment on above: Refill Request Start: 09-02-2024 End: 09-02-2024 Chart abstracting César Merrill MD Work Phone: [facility] Comment on above: Outside Vascular Start: 08-29-2024 End: 08-29-2024 [facility] Work [facility]: Start: 08-29-2024 End: 08-29-2024 ambulatory César Merrill Facility:[facility] Start: 08-21-2024 End: 08-21-2024 ambulatory CÉSAR MERRILL Facility:[facility] Start: 07-31-2024 End: 08-05-2024 Telephone encounter César Merrill MD Work Phone: [facility] Comment on above: Patient Update Start: 07-25-2024 End: 07-30-2024 Follow-up encounter César Merrill MD Work Phone: [facility] Start: 07-24-2024 End: 07-24-2024 ambulatory CÉSAR MERRILL Facility:[facility] Start: 07-24-2024 End: 07-24-2024 Ophthalmic examination and evaluation César Merrill MD Work Phone: [facility] Start: 07-24-2024 End: 07-24-2024 Patient encounter procedure César Merrill MD Work Phone: [facility] Comment on above: Well adult exam (Bonita katie Dx); Type 2 diabetes mellitus without complication, without long-term current use of insulin (HCC); Diabetic eye exam (HCC); Hypertension, essential; Mixed hyperlipidemia; 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; KARLA (obstructive sleep apnea); Vitamin B12 deficiency; Benign prostatic hyperplasia with urinary frequency; Nocturnal leg cramps; Cyanosis; Diminished pulses in lower extremity; Screening for depression; Advance directive discussed with patient; Encounter for screening examination for other mental health and behavioral disorders Start: 07-24-2024 End: 07-24-2024 Patient encounter status César Merrill MD Work Phone: [facility] Start: 07-24-2024 Encounter for genera l adult medical examination without abnormal findings CÉSAR MERRILL [facility] Start: 07-24-2024 End: 07-24-2024 ambulatory CÉSAR MERRILL Facility:[facility] Start: 07-18-2024 End: 07-18-2024 Telephone encounter César Merrill MD Work Phone: [facility] [place] Comment on above: Refill Request Start: 07-10-2024 End: 07-10-[address] London Tobar MD -[facility] Work Phone: Start: 07-10-2024 End: 07-10-2024 ambulatory César Merrill Facility:[facility] [facility] Start: 07-04-2024 End: 07-04-2024 Chart abstracting César Merrill MD Work Phone: [facility] Comment on above: Outside Diabetic Eye Exam Start: 06-10-2024 End: 06-10-2024 ambulatory CÉSAR MERRILL Facility:[facility] Start: 06-10-2024 End: 06-10-2024 Patient encounter procedure Deysi Cain APRN.CNP Work Phone: [facility] Comment on above: URI, acute (Primary Dx) Start: 02-15-2024 End: 02-15-2024 Telephone encounter César Merrill MD Work Phone: [facility] Comment on above: Results Start: 02-14-2024 End: 02-14-2024 ambulatory CÉSAR MERRILL Facility:[facility] Start: 02-14-2024 End: 02-14-2024 Ophthalmic examination and evaluation César Merrill MD Work Phone: [facility] Start: 02-14-2024 End: 02-14-2024 Patient encounter procedure César Merrill MD Work Phone: [facility] Comment on above: Type 2 diabetes channing itus without complication, without long- term current use of insulin (HCC) (Primary Dx); Diabetic eye exam (HCC); Hypertension, essential; Mixed hyperlipidemia; 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; KARLA (obstructive sleep apnea); Vitamin B12 deficiency; Need for vaccination; Encounter for immunization Start: 02-14-2024 End: 02-14-2024 ambulatory CÉSAR MERRILL Facility:[facility] Start: 09-14-2023 Telephone encounter César Merrill MD Work Phone: [facility] [place] Comment on above: Results Start: 08-16-2023 Telephone encounter César Merrill MD Work Phone: [facility] Comment on above: Results Start: 08-09-2023 Telephone encounter César Merrill MD Work Phone: [facility] Comment on above: Results Start: 08-08-2023 End: 08-08-2023 Ophthalmic examination and evaluation César Merrill MD Work Phone: [facility] Work Phone: Start: 08-08-2023 End: 08-08-2023 Patient encounter procedure César Merrill MD Work Phone: [facility] Comment on above: Well adult exam (Bonita katie Dx); Type 2 diabetes mellitus without complication, without long-term current use of insulin (HCC); Diabetic eye exam (HCC); Hypertension, essential; Mixed hyperlipidemia; 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 Riccardo Merrill Work Phone: [facility] Work Phone: Start: 04-13-2023 Non-patient / Non-visit Dr. Riccardo Merrill Work Phone: [facility] Work Phone: Start: 04-12-2023 Non-patient / Non-visit Dr. Riccardo Merrill Work Phone: [facility] Work Phone: Start: 04-12-2023 End: 04-14-2023 Evaluation and management of inpatient Dr. César Merrill Work Phone: [facility] Work Phone: Start: 04-12-2023 End: 04-14-[address] César Merrill Work Phone: [facility] Work Phone: Start: 04-10-2023 Chart abstracting César winn MD Work Phone: [facility] Start: 04-10-2023 Ophthalmic examinati on and evaluation César Merrill MD Work Phone: [facility] Start: 03-26-2023 End: 03-26-2023 Patient encounter procedure Melody Cano APRN.LOOSE HAND PACKER Work Phone: [facility] Comment on above: Preop examination (P rimary Dx) Start: 03-26-2023 End: 03-26-2023 Preprocedural examination done Melody Cano APRN.LOOSE HAND PACKER Work Phone: [facility] Work Phone: Start: 03-15-2023 Telephone encounter César Merrill MD Work Phone: [facility] [place] Comment on above: pre-op form Start: 03-09-2023 End: 03-09-[address] César Merrill Work Phone: [facility] Work Phone: Start: 11-10-2022 Refill César guevara MD Work Phone: [facility] Comment on above: Refill Request Start: 08-08-2022 Refill César guevara MD Work Phone: [facility] Comment on above: Refill Request Start: 07-06-2022 Chart abstracting César winn MD Work Phone: [facility] Comment on above: Consult (Consult to Cardiology/labs) Start: 07-04-2022 End: 07-04-[address] César Merrill Work Phone: [facility] Work Phone: Start: 07-04-2022 End: 07-04-[address] 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; KARLA (obstructive sleep apnea); Benign prostatic hyperplasia with urinary frequency; Osteoarthritis of multiple joints, unspecified osteoarthritis type; Advance directive discussed with patient; Encounter for immunization; Screening for colon cancer; Prostate disorder Start: 05-31-2022 End: 05-31-2022 Patient encounter status César Merrill MD Work Phone: [facility] Start: 05-08-2022 Refill César guevara MD Work Phone: [facility] Comment on above: Refill Request Start: 04-05-2022 Telephone encounter Meggan Duffy LoreeGwen Milligan Work Phone: [facility] Comment on above: Orders Start: 03-21-2022 Ophthalmic examinati on and evaluation Meggan Kitchenone Work Phone: [facility] Start: 02-10-2022 Refill César guevara MD Work Phone: [facility] Comment on above: Refill Request Start: 01-24-2022 Non-patient / Non-visit Dr. Riccardo Merrill Work Phone: [facility] Start: 01-24-2022 End: 01-24-[address] César Merrill Work Phone: [facility] Work Phone: Start: 01-24-2022 End: 01-24-[address] César Merrill Work Phone: [facility] Start: 01-11-2022 End: 01-11-[address] Cséar Merrill Work Phone: [facility] Start: 11-16-2021 Telephone encounter César Merrill MD Work Phone: [facility] Comment on above: Results Start: 11-15-2021 End: 11-15-2021 Ophthalmic examination and evaluation César Merrill MD Work Phone: [facility] Start: 11-15-2021 End: 11-15-2021 Patient encounter procedure César Merrill MD Work Phone: [facility] Comment on above: Type 2 diabetes channing itus without complication, without long- term current use of insulin (HCC) (Primary Dx); Diabetic eye exam (HCC); Hypertension, essential; Mixed hyperlipidemia; 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; KARLA (obstructive sleep apnea); Nocturnal leg cramps; Benign prostatic hyperplasia with urinary frequency; Living will in place; Advance directive discussed with patient Start: 09-27-2021 Telephone encounter Katarzyna huddleston PA-C Work Phone: [facility] Comment on above: Results Start: 09-23-2021 End: 09-23-2021 Patient encounter procedure Katarzyna Munson PA-C Work Phone: [facility] Comment on above: Generalized abdomina l pain (Primary Dx); Hypercalcemia Start: 09-19-2021 Telephone encounter Tiff Natalee manuel MEDICAL SOCIAL WORKER.LOOSE [employer] P[employer]ER Work Phone: [facility] Comment on above: Results Start: 09-19-2021 End: 09-19-2021 Patient encounter procedure César Ghotra MEDICAL SOCIAL WORKER.[employer]OOSE [employer] P[employer]ER Work Phone: [facility] Comment on above: Abdominal pain, gene ralized (Primary Dx) Start: 08-09-2021 Refill César guevara MD Work Phone: [facility] Comment on above: Refill Request Start: 07-21-2021 Chart abstracting César winn MD Work Phone: [facility] Comment on above: Outside Labs Results Start: 07-21-2021 End: 07-21-[address] César Merrill Work Phone: [facility] Start: 07-14-2021 End: 07-14-[address] César Merrill Work Phone: [facility] Start: 06-27-2021 Refill César guevara MD Work Phone: [facility] Comment on above: Refill Request (NEW PHARMACY) Start: 05-12-2021 Patient encounter status Jorge Merrill MD Work Phone: [facility] Work Phone: Start: 02-24-2021 Ophthalmic examinati on and evaluation César Merrill MD Work Phone: [facility] Start: 02-11-2021 End: 02-11-2021 Subsequent hospital visit by physician Xr [facility] Work Phone: Radiology Comment on above: [...] 01-26-2015 Follow Up Appt 6 months Terry Braba MD Work Phone: Start: 01-26-2015 End: 02-05-2015 [...] Detail Author Start: 10-27-2030 Urine microalbumin profile [facility] Start: 02-13-2027 Diabetes Screening Diabetes Screenin g [facility] Start: 07-24-2025 Annual PCP Team Crew Supervisor kay Disease Visit Annual PCP Team Chronic Disease Visit [facility] Start: 03-27-2026 Anxiety Screening Anxiety Screening [facility] Start: 07-24-2025 BP Controlled (<130/80) BP Controlle d (<130/80) [facility] Start: 07-24-2025 Depression Screening Depression Scre ening [facility] Start: 07-24-2025 Diabetic foot examination Diabetic F oot Exam [facility] Start: 07-24-2025 Hepatitis B screening Urine Albumin:Creatinine Ratio [facility] Start: 07-24-2025 Hepatitis B surface antibody level LDL Cholesterol [facility] Start: 07-03-2025 Glaucoma screening Dilated Retinal E xam [facility] Start: 02-13-2025 Annual PCP Team Crew Supervisor kay Disease Visit Annual PCP Team Chronic Disease Visit [facility] Start: 02-13-2025 BP Controlled (<130/80) BP Controlle d (<130/80) [facility] Start: 01-27-2025 End: 01-27-2025 Patient encounter procedure 01/27/2025 8:40 AM EDT Office Visit [facility] [address] [place] [id number] César Merrill MD [address] [place] [id number] 6 month follow up [facility] Comment on above: 6 month follow up Start: 01-24-2025 Hemoglobin A1c measurement HbA1C [facility] Start: 11-18-2024 ambulatory Ambulatory Facility:[facility] Start: 10-29-2024 Evaluation of diagno stic study results [facility] Start: 08-21-2024 End: 08-21-2024 Patient encounter procedure 08/21/2024 12:30 PM EDT Office Visit [facility] [address] [place], [place] [address] Cyanosis [R23.0]; Diminished pulses in lower extremity [R09.89] [facility] Comment on above: Cyanosis [R23.0]; Di minished pulses in lower extremity [R09.89] Start: 08-14-2024 Hemoglobin A1c measurement HbA1C [facility] Start: 08-14-2024 End: 08-14-2024 Patient encounter procedure [facility] Comment on above: physical physical-discuss med compliance Start: 08-07-2024 Annual PCP Team Crew Supervisor kay Disease Visit Annual PCP Team Chronic Disease Visit [facility] Start: 08-07-2024 Anxiety Screening Anxiety Screening [facility] Start: 08-07-2024 BP Controlled (<130/80) BP Controlle d (<130/80) [facility] Start: 08-07-2024 Depression Screening Depression Scre ening [facility] Start: 08-07-2024 Diabetic foot examination Diabetic F oot Exam [facility] Start: 08-07-2024 Hepatitis B screening Urine Albumin:Creatinine Ratio [facility] Start: 08-07-2024 Hepatitis B surface antibody level LDL Cholesterol [facility] Start: 08-07-2024 RSV Vaccine (1 - 1-d ose 60+ series) RSV Vaccine (1 - 1-dose 60+ series) [facility] Comment on above: Postponed from 02/18 (Insurance Coverage) Start: 08-07-2024 RSV Vaccine (1 - 1-d ose 75+ series) RSV Vaccine (1 - 1-dose 75+ series) [facility] Comment on above: Postponed from 02/18 (Insurance Coverage) Start: 08-07-2024 Shingrix Vaccine (2 of 2) Tam grix Vaccine (2 of 2) [facility] Comment on above: Postponed from 12/22 (Declined at this time) Start: 07-24-2024 End: 10-23-2024 Microalbumin/Creatinine [Mass Ratio] in Urine [facility] Work Phone: Comment on above: Expected: 07/24/2024 , Expires: 10/23/2024 Start: 04-30-2024 Advance Directive Discussion Advance Directive Discussion [facility] Start: 04-10-2024 Glaucoma screening Dilated Retinal E xam [facility] Start: 03-26-2024 Annual PCP Team Crew Supervisor kay Disease Visit Annual PCP Team Chronic Disease Visit [facility] Start: 02-14-2024 End: 02-14-2024 Patient encounter procedure 02/14/2024 9:20 AM EDT Office Visit [facility] [address] [place] [id number] César Merrill MD [address] [place] [id number] 6 month follow up [facility] Comment on above: 6 month follow up Start: 02-07-2024 Hemoglobin A1c measurement HbA1C [facility] Start: 02-06-2024 Annual PCP Team Crew Supervisor kay Disease Visit Annual PCP Team Chronic Disease Visit [facility] Start: 02-06-2024 BP Controlled (<130/80) BP Controlle d (<130/80) [facility] Start: 02-06-2024 Covid-19 Vaccine (#1) Covid-19 Vacci ne (#1) [facility] Comment on above: Postponed from 08/19 (Declined at this time) Start: 02-06-2024 Covid-19 Vaccine () Covid-19 Vaccine () [facility] Comment on above: Postponed from 12/29 (Declined at this time) Start: 02-06-2024 Hepatitis B Vaccine (1 of 3 - Risk 3-dose series) Hepatitis B Vaccine (1 of 3 - Risk 3-dose series) [facility] Comment on above: Postponed from 02/18 (Declined at this time) Start: 12-30-2023 Covid-19 Vaccine ( season) Covid-19 Vaccine ( season) [facility] Start: 12-30-2023 Influenza vaccination Influenza Vacc ine (#1) [facility] Start: 09-14-2023 End: 12-14-2023 CBC W Auto Differential panel - Blood COMPLETE BLOOD COUNT AND DIFFERENTIAL Lab Routine Vitamin B12 deficiency Expected: 09/14/2023, Expires: 12/14/2023 [facility] Work Phone: Comment on above: Expected: 09/14/2023 , Expires: 12/14/2023 Start: 09-14-2023 End: 12-14-2023 Cobalamin (Vitamin B12) [Mass/volume] in Serum or Plasma VITAMIN B12 Lab Routine Vitamin B12 deficiency Expected: 09/14/2023, Expires: 12/14/2023 [facility] Work Phone: Comment on above: Expected: 09/14/2023 , Expires: 12/14/2023 Start: 08-09-2023 End: 11-08-2023 Cobalamin (Vitamin B12) [Mass/volume] in Serum or Plasma VITAMIN B12 Lab Routine Anemia, unspecified type Expected: 08/09/2023, Expires: 11/08/2023 [facility] Work Phone: Comment on above: Expected: 08/09/2023 , Expires: 11/08/2023 Start: 08-09-2023 End: 11-08-2023 Ferritin [Mass/volume] in Serum or Plasma FERRITIN Lab Routine Anemia, unspecified type Expected: 08/09/2023, Expires: 11/08/2023 [facility] Work Phone: Comment on above: Expected: 08/09/2023 , Expires: 11/08/2023 Start: 08-09-2023 End: 11-08-2023 Folate [Mass/volume] in Serum or Plasma FOLATE, SERUM Lab Routine Anemia, unspecified type Expected: 08/09/2023, Expires: 11/08/2023 [facility] Work Phone: Comment on above: Expected: 08/09/2023 , Expires: 11/08/2023 Start: 08-09-2023 End: 11-08-2023 Iron and Iron binding capacity panel - Serum or Plasma IRON AND TIBC Lab Routine Anemia, unspecified type Expected: 08/09/2023, Expires: 11/08/2023 [facility] Work Phone: Comment on above: Expected: 08/09/2023 , Expires: 11/08/2023 Start: 05-31-2023 3 comp foot exam completed DIABETIC FOOT EXAM [facility] Start: 05-31-2023 ANNUAL PCP TEAM FIRE EXTINGUISHER INSTALLER KAY DISEASE VISIT ANNUAL PCP TEAM CHRONIC DISEASE VISIT [facility] Start: 05-31-2023 Diabetic foot examination Diabetic F oot Exam [facility] Start: 05-31-2023 Hepatitis B screening URINE ALBUMIN:CREATININE RATIO [facility] Start: 05-31-2023 Hepatitis B surface antibody level LDL CHOLESTEROL [facility] Start: 04-14-2023 [facility] Start: 04-13-2023 Continuous pulse oximetry [facility] Start: 04-13-2023 Physiotherapy of chest [facility] Start: 04-13-2023 Inhalation therapy procedure [facility] Start: 04-12-2023 Care regimes management [facility] Start: 04-12-2023 Notification of physician [facility] Start: 04-12-2023 Oxygen therapy [facility] Start: 04-12-2023 Following clinical p athway protocol [facility] Start: 04-12-2023 Admission procedure [facility] Start: 04-12-2023 Application of ice c ollar, cap or bag [facility] Start: 04-12-2023 Application of intermittent pneumatic compression device [facility] Start: 04-12-2023 Catheterization of vein [facility] Start: 04-12-2023 Consultation [facility] Start: 04-12-2023 Following clinical p athway protocol [facility] Start: 04-12-2023 Introduction of urin cas catheter [facility] Start: 04-12-2023 Maintenance of drain age tube [facility] Start: 04-12-2023 Measuring intake and output [facility] Start: 04-12-2023 Neurovascular assessment [facility] Start: 04-12-2023 Patient education [facility] Start: 04-12-2023 Procedure discontinued [facility] Start: 04-12-2023 Provision of activit y privileges [facility] Start: 04-12-2023 Recommendation to co negraue with treatment [facility] Start: 04-12-2023 Referral to service [facility] Start: 04-12-2023 Taking patient vital signs [facility] Start: 03-16-2023 Hepatitis C antibody , confirmatory test DILATED RETINAL EXAM [facility] Start: 12-29-2022 Influenza vaccination INFLUENZA (#1) [facility] Start: 11-28-2022 Hemoglobin A1c measurement HbA1C [facility] Start: 11-28-2022 Hemoglobin A1c/Hemoglobin.total in Blood HBA1C [facility] Start: 11-15-2022 ANNUAL PCP TEAM FIRE EXTINGUISHER INSTALLER KAY DISEASE VISIT ANNUAL PCP TEAM CHRONIC DISEASE VISIT [facility] Start: 11-15-2022 BP CONTROLLED (<130/80) BP CONTROLLE D (<130/80) [facility] Start: 11-15-2022 COVID-19 VACCINE (#1) COVID-19 VACCI NE (#1) [facility] Comment on above: Postponed from 08/19 (Declined at this time) Start: 11-15-2022 Hepatitis B screening URINE ALBUMIN:CREATININE RATIO [facility] Start: 11-15-2022 Hepatitis B surface antibody level LDL CHOLESTEROL [facility] Start: 11-15-2022 SHINGRIX VACCINE (2 of 2) TAM GRIX VACCINE (2 of 2) [facility] Comment on above: Postponed from 12/22 (Insurance Coverage) Start: 09-23-2022 ANNUAL PCP TEAM FIRE EXTINGUISHER INSTALLER KAY DISEASE VISIT ANNUAL PCP TEAM CHRONIC DISEASE VISIT [facility] Start: 09-23-2022 BP CONTROLLED (<130/80) BP CONTROLLE D (<130/80) [facility] Start: 06-05-2022 FECAL OCCULT BLOOD FECAL OCCULT BLOO D [facility] Start: 06-05-2022 Screening for malign ant neoplasm of colon Fecal Occult Blood [facility] Start: 05-31-2022 End: 07-31-2022 ALBUMIN/CREAT RATIO RND UR [facility] Work Phone: Comment on above: Expected: 05/31/2022 , Expires: 07/31/2022 Start: 05-31-2022 End: 07-31-2022 Hemoglobin A1c in Blood [facility] Work Phone: Comment on above: Expected: 05/31/2022 , Expires: 07/31/2022 Start: 05-31-2022 End: 07-31-2022 Urinalysis complete panel - Urine [facility] Work Phone: Comment on above: Expected: 05/31/2022 , Expires: 07/31/2022 Start: 05-18-2022 Hemoglobin A1c/Hemoglobin.total in Blood HBA1C [facility] Start: 05-12-2022 3 comp foot exam completed DIABETIC FOOT EXAM [facility] Start: 05-12-2022 ANNUAL PCP TEAM FIRE EXTINGUISHER INSTALLER KAY DISEASE VISIT ANNUAL PCP TEAM CHRONIC DISEASE VISIT [facility] Start: 04-30-2022 ADVANCE DIRECTIVE DISCUSSION ADVANCE DIRECTIVE DISCUSSION [facility] Start: 04-30-2022 DEPRESSION ASSESSMENT DEPRESSION ASS ESSMENT [facility] Start: 02-24-2022 Hepatitis C antibody , confirmatory test DILATED RETINAL EXAM [facility] Start: 12-29-2021 Influenza vaccination INFLUENZA (#1) [facility] Start: 10-27-2021 BP CONTROLLED (<130/80) BP CONTROLLE D (<130/80) [facility] Start: 10-27-2021 COVID-19 VACCINE (#1) COVID-19 VACCI NE (#1) [facility] Comment on above: Postponed from 02/18 (Declined at this time) Start: 10-27-2021 COVID-19 VACCINE (1) COVID-19 VACCIN E (1) [facility] Comment on above: Postponed from 02/18 (Declined at this time) Start: 10-27-2021 Hepatitis B screening URINE ALBUMIN:CREATININE RATIO [facility] Start: 10-27-2021 Hepatitis B surface antibody level LDL CHOLESTEROL [facility] Start: 09-23-2021 End: 11-23-2021 Calcium [Mass/volume] in Serum or Plasma [facility] Work Phone: Comment on above: Expected: 09/23/2021 , Expires: 11/23/2021 Start: 09-23-2021 End: 11-23-2021 PTH INTACT BLD [facility] Work Phone: Comment on above: Expected: 09/23/2021 , Expires: 11/23/2021 Start: 09-19-2021 End: 11-19-2021 Erythrocyte sedimentation rate [facility] Work Phone: Comment on above: Expected: 09/19/2021 , Expires: 11/19/2021 Start: 08-10-2021 Hemoglobin A1c/Hemoglobin.total in Blood HBA1C [facility] Start: 04-30-2021 ADVANCE DIRECTIVE DISCUSSION ADVANCE DIRECTIVE DISCUSSION [facility] Start: 04-30-2021 DEPRESSION ASSESSMENT DEPRESSION ASS ESSMENT [facility] Start: 12-22-2020 SHINGRIX VACCINE (2 of 2) TAM GRIX VACCINE (2 of 2) [facility] Start: 02-19-2020 RSV Vaccine (1 - 1-d ose 75+ series) RSV Vaccine (1 - 1-dose 75+ series) [facility] Start: 08-20-2017 End: 08-20-2017 Appointment Appointment [facility] Work Phone: Start: 07-23-2017 End: 01-23-2017 *Hepatic Function Panel *Hepatic Function Panel [facility] Work Phone: Start: 07-23-2017 End: 01-23-2017 Lipid 1996 panel *Lipid Profile CC PCP [facility] Work Phone: Start: 07-23-2017 End: 01-23-2017 *Hepatic Function Panel *Hepatic Function Panel [facility] Work Phone: Start: 07-23-2017 End: 01-23-2017 Lipid panel [AGGREGATE] *Lipid Profile CC PCP [facility] Work Phone: Start: 01-29-2017 End: 01-29-2017 BONNIEN BONNIEN [facility] Work Phone: Start: 01-29-2017 End: 01-29-2017 Follow Up Appt 6 months Follow Up Appt 6 months [facility] Work Phone: Start: 01-29-2017 End: 01-29-2017 Appointment Appointment [facility] Work Phone: Start: 01-29-2017 End: 01-29-2017 GREGORY NICOLEN [facility] Work Phone: Start: 01-29-2017 End: 01-29-2017 Follow Up Appt 6 months Follow Up Appt 6 months [facility] Work Phone: Start: 01-12-2017 End: 01-22-2017 *Hepatic Function Panel *Hepatic Function Panel [facility] Work Phone: Start: 01-12-2017 End: 01-22-2017 Lipid 1996 panel *Lipid Profile CC PCP [facility] Work Phone: Start: 01-12-2017 End: 01-22-2017 *Hepatic Function Panel *Hepatic Function Panel [facility] Work Phone: Start: 01-12-2017 End: 01-22-2017 Lipid panel [AGGREGATE] *Lipid Profile CC PCP [facility] Work Phone: Start: 07-17-2016 End: 07-17-2016 DJN DJN [facility] Work Phone: Start: 07-17-2016 End: 07-17-2016 Follow Up Appt 6 months Follow Up Appt 6 months [facility] Work Phone: Start: 07-17-2016 End: 07-17-2016 DJN DJN [facility] Work Phone: Start: 07-17-2016 End: 07-17-2016 Follow Up Appt 6 months Follow Up Appt 6 months [facility] Work Phone: Start: 07-12-2016 End: 07-13-2016 *Hepatic Function Panel *Hepatic Function Panel [facility] Work Phone: Start: 07-12-2016 End: 07-14-2016 Lipid 1996 panel *Lipid Profile CC PCP [facility] Work Phone: Start: 07-12-2016 [...] 07-19-2015 *Hepatic Function Panel *Hepatic Function Panel [facility] Work Phone: Start: 07-26-2015 End: 07-19-2015 Lipid 1996 panel *Lipid Profile CC PCP [facility] Work Phone: Start: 07-26-2015 End: 07-19-2015 *Hepatic Function Panel *Hepatic Function Panel [facility] Work Phone: Start: 07-26-2015 End: 07-19-2015 Lipid panel [AGGREGATE] *Lipid Profile CC PCP [facility] Work Phone: Start: 07-19-2015 End: 07-19-2015 GREGORY JENKINS [facility] Work Phone: Start: 07-19-2015 End: 07-19-2015 Follow Up Appt 6 months Follow Up Appt 6 months [facility] Work Phone: Start: 07-19-2015 [...] 6 months Follow Up Appt 6 months [facility] Work Phone: Start: 01-26-2015 End: 01-26-2015 Stress Echocardiogram (treadmill) Stress Echocardiogram (treadmill) [facility] Work Phone: Start: 01-22-2015 End: 01-25-2015 *Hepatic Function Panel *Hepatic Function Panel [facility] Work Phone: Start: 01-22-2015 End: 01-25-2015 Lipid 1996 panel *Lipid Profile CC PCP [facility] Work Phone: Start: 01-22-2015 End: 01-25-2015 *Hepatic Function Panel *Hepatic Function Panel [facility] Work Phone: Start: 01-22-2015 End: 01-25-2015 Lipid panel [AGGREGATE] *Lipid Profile CC PCP [facility] Work Phone: Start: 07-15-2014 End: 07-20-2014 *Hepatic Function Panel *Hepatic Function Panel [facility] Work Phone: Start: 07-15-2014 End: 07-20-2014 Lipid 1996 panel *Lipid Profile CC PCP [facility] Work Phone: Start: 07-15-2014 End: 07-20-2014 *Hepatic Function Panel *Hepatic Function Panel [facility] Work Phone: Start: 07-15-2014 End: 07-20-2014 Lipid panel [AGGREGATE] *Lipid Profile CC PCP [facility] Work Phone: Start: 01-20-2014 End: 01-20-2014 GREGORY JENKINS [facility] Work Phone: Start: 01-20-2014 End: 01-22-2014 Ecg routine ecg w/least 12 lds w/i&r EKG (In office) [facility] Work Phone: Start: 01-20-2014 End: 01-20-2014 Follow Up Appt 1 year Follow Up Appt 1 year [facility] Work Phone: Start: 01-20-2014 End: 01-20-2014 DJN DJN [facility] Work Phone: Start: 01-20-2014 End: 01-22-2014 Electrocardiogram, complete EKG (In office) [facility] Work Phone: Start: 01-20-2014 End: 01-20-2014 Follow Up Appt 1 year Follow Up Appt 1 year [facility] Work Phone: Start: 12-29-2013 End: 01-15-2014 *Hepatic Function Panel *Hepatic Function Panel [facility] Work Phone: Start: 12-29-2013 [...] 01-14-2013 Stress Echocardiogram (treadmill) Stress Echocardiogram (treadmill) [facility] Work Phone: Start: 01-14-2013 End: 01-14-2013 GREGORY JENKINS [facility] Work Phone: Start: 01-14-2013 End: 01-14-2013 Follow Up Appt 1 year Follow Up Appt 1 year [facility] Work Phone: Start: 01-14-2013 End: 01-14-2013 Stress Echocardiogram (treadmill) Stress Echocardiogram (treadmill) [facility] Work Phone: Start: 12-29-2012 End: 01-06-2013 *Hepatic Function Panel *Hepatic Function Panel [employer] Work Phone: Start: 12-29-2012 End: 01-06-2013 Lipid 1996 panel *Lipid Profile [employer] [facility] [employer] Phone: Start: 12-29-2012 End: 01-06-2013 *Hepatic Function Panel *Hepatic Function Panel [facility] Work Phone: Start: 12-29-2012 End: 01-06-2013 Lipid panel [AGGREGATE] *Lipid Profile [facility] Work Phone: Start: 06-25-2012 End: 07-18-2012 *Hepatic Function Panel *Hepatic Function Panel [facility] Work Phone: Start: 06-25-2012 End: 06-25-2012 Ecg routine ecg w/least 12 lds w/i&r EKG (In office) [facility] Work Phone: Start: 06-25-2012 End: 06-25-2012 Follow Up Appt 6 months Follow Up Appt 6 months [employer] Work Phone: Start: 06-25-2012 End: 07-18-2012 Lipid 1996 panel *Lipid Profile [facility] [employer] Phone: Start: 06-25-2012 End: 07-18-2012 *Hepatic Function Panel *Hepatic Function Panel [facility] [employer] Phone: Start: 06-25-2012 End: 06-25-2012 Electrocardiogram, complete EKG (In office) [facility] Work Phone: Start: 06-25-2012 End: 06-25-2012 Follow Up Appt 6 months Follow Up Appt 6 months [facility] Work Phone: Start: 06-25-2012 End: 07-18-2012 Lipid panel [AGGREGATE] *Lipid Profile [facility] [employer] Work Phone: Start: 12-21-2011 End: 01-11-2012 *Hepatic Function Panel *Hepatic Function Panel [facility] Work Phone: Start: 12-21-2011 End: 12-21-2011 Follow Up Appt 6 months Follow Up Appt 6 months [facility] Work Phone: Start: 12-21-2011 End: 01-11-2012 Lipid 1996 panel *Lipid Profile [facility] Phone: Start: 12-21-2011 End: 01-11-2012 *Hepatic Function Panel *Hepatic Function Panel [facility] [employer] Phone: Start: 12-21-2011 End: 12-21-2011 Follow Up Appt 6 months Follow Up Appt 6 months [facility] Work Phone: Start: 12-21-2011 End: 01-11-2012 Lipid panel [AGGREGATE] *Lipid Profile [facility] Work Phone: Start: 05-19-2011 End: 05-19-2011 Ecg routine ecg w/least 12 lds w/i&r EKG (In office) [employer] Phone: Start: 05-19-2011 End: 05-19-2011 Echocardiography Echocardiogram (complete) [employer] Work Phone: Start: 05-19-2011 End: 05-19-2011 Follow Up Appt 3 months Follow Up Appt 3 months [employer] Work Phone: Start: 05-19-2011 End: 05-19-2011 Nuclear stress test -adenosine Nuclear stress test -adenosine [facility] Work Phone: Start: 05-19-2011 End: 05-19-2011 Echocardiography Echocardiogram (complete) [facility] Work Phone: Start: 05-19-2011 End: 05-19-2011 Electrocardiogram, complete EKG (In office) [facility] Work Phone: Start: 05-19-2011 End: 05-19-2011 Follow Up Appt 3 months Follow Up Appt 3 months [employer] Work Phone: Start: 05-19-2011 End: 05-19-2011 Nuclear stress test -adenosine Nuclear stress test -adenosine [facility] [employer] Work Phone: Start: 2005 RSV Vaccine (1 - 1-d ose 60+ series) RSV Vaccine (1 - 1-dose 60+ series) [facility] Hemoglobin.gastroint estina l.lower [Presence] in Stool by Immunoassay FECAL OCCULT BLOOD TEST Lab Routine Well adult exam Screening for colon cancer Ordered: 05/31/2022 [facility] Work Phone: Comment on above: Ordered: 05/31/2022 Hemoglobin.gastroint estina l.lower [Presence] in Stool by Immunoassay IMMUNOCHEMICAL FECAL OCCULT BLOOD TEST Lab Routine Screening for colon cancer Ordered: 08/08/2023 [facility] Work Phone: Comment on above: Ordered: 08/08/2023 [facility] W str ess and W radionuclide IV [facility] OXIMETRY - NOCTURNAL OXIMETRY - NOCTURNAL Procedures Routine Pneumonia due to COVID-19 virus Ordered: 04/10/2022 [facility] Work Phone: Comment on above: Ordered: 04/10/2022 End: 05-18-2024 OXIMETRY WITH AMBULATION OXIMETRY WITH AMBULATION PFT Routine Hypoxemia 1 Occurrences starting 04/19/2023 until 05/18/2024 [facility] Work Phone: Comment on above: 1 Occurrences starti ng 04/19/2023 until 05/18/2024 Patient Education [facility] [employer] Work Phone: [place] [facility] [place]: End: 07-24-2025 US Lower extremity artery - bilateral [facility] Vascular Lab Routine Cyanosis Diminished pulses in lower extremity 1 Occurrences starting 07/24/2024 until 07/24/2025 [facility] Comment on above: 1 Occurrences starti ng 07/24/2024 until 07/24/[address] [facility] Immunizations Immunization Date Immunization Notes Care Provider Fa [facility] 02-14-2024 influenza, high dose seasonal, preservative-free César Merrill MD Work Phone: [facility] 02-14-2024 zoster vaccine recombinant César Merrill MD Work Phone: [facility] 02-05-2023 influenza (HD-IIV4) vaccine, age 65+ yr, high dose, quadrivalent, PF (FLUZONE HIGH-DOSE) César Merrill MD Work Phone: [facility] 02-05-2023 influenza virus vacc ine, unspecified formulation [facility] [place] Work Phone: [facility] 05-31-2022 influenza, high-dose , quadrivalent vaccine (FLUZONE HIGH DOSE QUADRIVALENT) César Merrill MD Work Phone: [facility] 03-07-2021 influenza, high-dose , quadrivalent vaccine (FLUZONE HIGH DOSE QUADRIVALENT) César Merrill MD Work Phone: [facility] 10-27-2020 tetanus toxoid, redu silva diphtheria toxoid, and acellular pertussis vaccine, adsorbed César Merrill MD Work Phone: [facility] 10-27-2020 zoster vaccine recombinant César Merrill MD Work Phone: [facility] 02-25-2019 influenza, high dose seasonal, preservative-free César Merrill MD Work Phone: [facility] 02-22-2018 influenza, high dose seasonal, preservative-free César Merrill MD Work Phone: [facility] 04-12-2017 influenza, injectabl e, quadrivalent, contains preservative César Merrill MD Work Phone: [facility] 12-06-2015 pneumococcal polysaccharide vaccine, 23 valent César Merrill MD Work Phone: [facility] 11-24-2014 pneumococcal conjuga te vaccine, 13 valent César Merrill MD Work Phone: [facility] 10-22-2013 measles, mumps and rubella virus vaccine César Merrill MD Work Phone: [facility] Work Phone: 09-03-2013 measles, mumps and rubella virus vaccine César Merrill MD Work Phone: [facility] Work Phone: 01-24-2010 influenza virus vacc ine, unspecified formulation César Merrill MD Work Phone: [facility] 05-22-2008 tetanus toxoid, redu silva diphtheria toxoid, and acellular pertussis vaccine, adsorbed César Merrill MD Work Phone: [facility] Work Phone: 02-28-1998 pneumococcal polysaccharide vaccine, 23 valjing Merrill MD Work Phone: [facility] Payers Date Payer Category Payer Unknown [id number] 2024 Unknown [id number] 2024 Self-pay [id number] Unknown [id number] Unknown [id number] [id number] [id number] Unknown [id number] [id number] Unknown [id number] [id number] Unknown [id number] [id number] [id number] Unknown [id number] [id number] [id number] Unknown [id number] [id number] [id number] Social History Date Type Detail Facility Start: 03-07-2021 End: 03-16-2023 Tobacco smoking status AKIS Ex-smoker [facility] Start: 1963 End: 07-29-1997 History of tobacco use Current smoker [facility] Start: 05-12-2021 End: 08-22-2024 Alcohol intake Current non-drinker of alcohol (finding) [facility] Start: 1945 Sex Assigned At Not on file C [facility] Start: 07-14-2021 End: 03-16-2023 Tobacco smoking status [facility] Unknown if ever smoked [facility] Start: 1945 Sex Assigned At Male [facility] Start: 01-12-2021 End: 11-15-2021 Exposure to SARS-CoV-2 (event) Not sure [facility] Work Phone: Start: 1963 End: 07-29-1997 History of tobacco use Cigarette Smoker [facility] Work Phone: Start: 03-07-2021 End: 02-14-2024 Tobacco use and exposure Former smokeless tobacco user [facility] Work Phone: Start: 05-31-2022 End: 02-05-2023 History of Social function [facility] Work Phone: Start: 05-31-2022 End: 02-05-2023 Tobacco use panel [facility] Work Phone: Adult Depression Screening Assessment 0 [facility] Work Phone: Medical Equipment Procedure Code Equipment Code Equipment Original Text Equipment Identifier Dates [id number] FDA Start: 04-12-2023 SCREW FDA Start: 04-12-2023 [...] Start: 04-12-2023 Collagen haemost atic agent, non-antimicrobial ()[id number] FDA Start: 04-12-2023 Collagen haemost atic agent, non-antimicrobial ()[id number] FDA Start: 04-12-2023 Plant polysaccha ride haemostatic agent, bioabsorbable ()[id number] FDA Start: 04-12-2023 PUTTY,BONE DBM 5 CC TIJERINA FDA Start: 04-12-2023 AMNA FDA Start: 04-12-2023 AMNA FDA Start: 04-12-2023 SCREW FDA Start: 04-12-2023 SCREW FDA Start: 04-12-2023 SCREW FDA Start: 04-12-2023 SCREW FDA Start: 04-12-2023 [id number] FDA Start: 04-12-2023 SCREW FDA Start: 04-12-2023 [...] FDA Start: 04-12-2023 SCREW FDA Start: 04-12-2023 [id number] FDA Start: 04-12-2023 SCREW FDA Start: 04-12-2023 [...] Facility 04-14-2023 Functional status Patient Activity Chair [facility] Work Phone: 04-14-2023 Functional status With Assist of 1 [facility] Work Phone: 11-24-2014 Are you deaf, or do you have serious difficulty hearing Yes 11/24/2014 8:22 AM EDT Bryn Benedict LPN Yes [facility] 11-24-2014 Are you blind, or do you have serious difficulty seeing, even when wearing glasses No 11/24/2014 8:22 AM EDT Brny Benedict LPN No [facility] 11-24-2014 Do you have serious difficulty walking or climbing stairs No 11/24/2014 8:22 AM EDT Bryn Benedict LPN No [facility] 11-24-2014 Do you have difficul ty dressing or bathing No 11/24/2014 8:22 AM EDT Bryn Benedict LPN No [facility] 11-24-2014 Because of a physica l, mental, or emotional condition, do you have difficulty doing errands alone such as visiting a physician's office or shopping No 11/24/2014 8:22 AM EDT Bryn Benedict LPN No [facility] Mental Status Date Assessment Result Facility 04-14-2023 Cognitive function Voice/Name [facility] Work Phone: 11-24-2014 Because of a physica l, mental, or emotional condition, do you have serious difficulty concentrating, remembering, or making decisions No 11/24/2014 8:22 AM EDT Bryn Benedict LPN No [facility] Clinical Notes 07-29-1997 to 10-17-2024 Diamond Cain MA - 10/17/2024 1:51 PM EDTTelephone Encounter - Tamera Yeung - 10/14/2024 2:21 PM EDTTelephone Encounter - Tamera Yeung - 10/14/2024 2:21 PM EDT Note Date & Type Note Facility 10-17-2024 Note HNO ID: [id number] Author: DIAMOND CAIN MA Service: ? Author Type: Motorcyles Final Inspector Type: Progress Notes Filed: 10/17/2024 13:51 Note Text: Scan on 10/03/2024 8:33 AM by ProviderTori PA-C: Chemistry Scan on 10/05/2024 6:29 AM by ProviderTori PA-C: CT Scan Diamond Cain MA [facility] 10-17-2024 History of Presen t illness Narrative Scan on 10/03/2024 8:33 AM by ProviderTori PA-C: Chemistry Scan on 10/05/2024 6:29 AM by ProviderTori PA-C: CT Scan Diamond Cain MA documented in this encounter [facility] 10-14-2024 Telephone encounter Note Patient son calling back for message. The message was read and patient son will call the heart group for the heart medication [facility] 10-14-2024 Miscellaneous Notes Patient son calling [...] you. Zita Patel. documented in this encounter [facility] 10-14-2024 Telephone encounter Note Patient has refills on Losartan and gets his atenolol through [facility]. Diamond Cain MA Left message for patient's EC . Diamond Cian MA' [facility] 10-14-2024 Telephone encounter Note Prescription Refill [...] Cain MA October 14, 2024 11:10 AM [facility] 10-14-2024 Miscellaneous Notes Prescription Refill Information [...] you. Zita Patel. documented in this encounter [facility] 10-14-2024 Telephone encounter Note Patient has [...] 01/27/2025 Please advise. Thank you. Zita Patel. [facility] 10-14-2024 Telephone encounter Note Patient has [...] 01/27/2025 Please advise. Thank you. Zita Patel. [facility] 10-05-2024 Radiology Diagnostic study note [facility] Imaging Services [address] [place] [address] CTA Abd w/Runoff W/WO Contrast MR#: [id number] Acct: [id number] Name: KATHARINE CANO Rep #: [id number] : 1945 M 79 From: Salazar Goldberg MD PCP: Dr. César Merrill MD Status: REG CLI Study:CTA Abd w/Runoff W/WO Contrast Date of Exam: 10/03/24 Exam# [id number] Ordering Dr: Kyrie Rush PA PROCEDURE: CTA [...] Contrast IMPRESSION: Atherosclerosis. Multifocal stenosis. Reading Location: [place] [address] CC: STEPHEN Toth; Dr. César Merrill MD ~ Pick Up Driver: Signed [facility] 09-10-2024 Telephone encounter Note The following approved [...] once daily. Authorizing Provider: CÉSAR MERRILL MD [facility] 09-10-2024 Miscellaneous Notes The following approved [...] 2024 11:56 AM documented in this encounter [facility] 09-10-2024 Telephone encounter Note Prescription Refill [...] Higginbotham LPN September 10, 2024 2:52 PM [facility] 09-10-2024 Telephone encounter Note Prescription Refill [...] Sissy Figueroa September 10, 2024 11:56 AM [facility] 09-02-2024 Note HNO ID: [id number] Author: DEMARCUS HIGGINBOTHAM LPN Service: ? Author Type: LICENSED NURSE Type: Progress Notes Filed: 09/02/2024 14:59 Note Text: Scan on 09/02/2024 9:55 AM by Provider, External, PA-C: Consultation - Vascular Medicine/Vascular Surgery [facility] 09-02-2024 History of Presen t illness Narrative Scan on 09/02/2024 9:55 AM by Provider, YURIDIA Valle: Consultation - Vascular Medicine/Vascular Surgery documented in this encounter [facility] 07-31-2024 Telephone encounter Note Reviewed message with Adelaida and he voiced understanding. Valerie Johnson LPN [facility] 07-31-2024 Miscellaneous Notes Reviewed message with [...] 80mg daily that was originally prescribed through [facility]. Last visit with them on [...] have list of covered alternatives. Patient's son Adelaida calls and states that Farxiga is too expensive for patient. Adelaida asking for different medication to be called into pharmacy. Please review and advise, Jeannette Oliveira RN documented in this encounter [facility] 07-31-2024 Telephone encounter Note With LDL above 70 I would recommend he switch to the Atorvastatin 40 mg daily. [facility] 07-31-2024 Telephone encounter Note Spoke with [...] Please review and advise. Norma Anderson LPN [facility] 07-31-2024 Telephone encounter Note Patient is already on Actos and Glimepiride. Cannot tolerate metformin due to diarrhea. Can we initiate PA for this medication? If not, would have patient check with insurance to see if they have list of covered alternatives. [facility] 07-31-2024 Telephone encounter Note Patient's son Adelaida calls and states that Farxiga is too expensive for patient. Adelaida asking for different medication to be called into pharmacy. Please review and advise, Jeannette Oliveira RN [facility] 07-30-2024 Telephone encounter Note Patient's son aware. Valerie Johnson LPN [facility] 07-30-2024 Miscellaneous Notes Patient's son aware. [...] if pt on cholesterol medication ordered by [facility]. States he will find out [...] is no longer on the simvastatin per [facility]. If so I would suggest we put him on atorvastatin 40 mg a day. His B12 was on the low end of normal so I would advise getting back on Vit B12 1000 mcg but just one a day. All other labs and urine testing were ok. documented in this encounter [facility] 07-30-2024 Telephone encounter Note Rx sent as requested. Call if unable to afford farxiga. [facility] 07-30-2024 Telephone encounter Note Patient's son, [...] Vit B12 as advised. Mee Shi RN [facility] 07-26-2024 Telephone encounter Note Left message for pt to contact office. Demarcus Higginbotham LPN [facility] 07-25-2024 Telephone encounter Note Let patient [...] other labs and urine testing were ok. [facility] 07-24-2024 History of Presen t illness Narrative Images from the original note were not included. Chief Complaint Patient presents with: Physical HPI Katharine aCno is a 79 year old male who [...] and med refills. Seeing Dr. Castro with [facility] for his hip pains. Patient had [...] - LIPID PANEL, NONFASTING 6. 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 César Merrill MD SENSITIVE EXAMINATION CONSENT: The sensitive examination was discussed with the Patient or Patient's Authorized Diplomatic Interpreter. As applicable, any other physician, advance practice provider, medical student, or other health professional student that will be observing or involved in the sensitive examination for educational or training purposes was discussed with the Patient or Authorized Diplomatic Interpreter. The Patient or Authorized Diplomatic Interpreter has agreed to proceed with the sensitive examination. documented in this encounter [facility] 07-24-2024 Note HNO ID: [id number] Author: CÉSAR MERRILL MD Service: ? Author [...] History Tobacco Use (more content not included)... [facility] 07-24-2024 Instructions César Merrill MD - 07/24/2024 8:38 AM EDT Please bring in copies of your power of buffet attendant for health care and living will. Please get back on the B12 1000 mcg 1.5 tabs a day. documented in this encounter [facility] 07-18-2024 Telephone encounter Note Noted. [facility] 07-18-2024 Miscellaneous Notes Noted. Love from [facility] pharmacy in [place] calling in for refills for pt. She [...] Simvastatin correctly. Atenolol and Simvastatin prescribed by [facility]. Pt is set up for a physical on 08/12 with Katarzyna Munson. Pt is Christianity and needs financially cleared for appt. Attempted to call pt and son Adelaida answered the phone and said pt is unavailable. Discussed with son about how pt is taking his medications and that perhaps we need to bring him in sooner for an appt to discuss med compliance. Son agreeable to this. documented in this encounter [facility] 07-18-2024 Telephone encounter Note Love from [facility] pharmacy in [place] calling in for refills for pt. She [...] Simvastatin correctly. Atenolol and Simvastatin prescribed by [facility]. Pt is set up for a physical on 08/12 with Katarzyna Munson. Pt is Christianity and needs financially cleared for appt. Attempted to call pt and son Adelaida answered the phone and said pt is unavailable. Discussed with son about how pt is taking his medications and that perhaps we need to bring him in sooner for an appt to discuss med compliance. Son agreeable to this. [facility] 07-10-2024 Evaluation note Diagnosis Onset Date Resolution Essential hypertension acute 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 Work Phone: 1(641) 205-403803-13-2025 Evaluation note* Diagnosis Onset Date Resolution Status Admit Date Essential hypertension acute 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 Author Type: LICENSED NURSE Type: Progress Notes Filed: 07/04/2024 08:36 Note Text: Scan on 07/04/2024 7:19 AM by Provider, External, PA-C: [facility] History of Present illness Narrative* Demarcus Higginbotham LPN - 07/04/2024 8:24 AM EST Scan on 07/04/2024 7:19 AM by Provider, YURIDIA Valle: Consultation - Ophthalmology [facility]25 NoteHNO ID: [id number] Author: DEYSI CAIN APRN.[employer] Service: ? Author Type: Nurse Practitioner Type: [...] 07/29/1997 Years since quitting: (more content not included)...[facility] 06-10-2024 History of Present illness Narrative* Deysi Cain APRN.[facility] - 06/10/2024 1:43 PM EST CC: [...] Patient agreeable to treatment plan. Deysi Cain APRN.[employer] documented [facility] Telephone encounter Note * Telephone Encounter - Demarcus Higginbotham LPN - 02/15/2024 11:46 AM EDT Left message of pt and pt's results on pt's vm. Demarcus Higginbotham LPN [facility]10-18-2024 Miscellaneous Notes* Telephone Encounter - Demarcus Higginbotham LPN - 02/15/2024 11:46 AM EDT Left message of pt and pt's results on pt's vm. Demarcus Higginbotham LPN * Telephone Encounter - César Merrill MD - 02/15/2024 10:03 AM EDT Let Katharine know that his recent labs along with his 's recent labs were ok. [facility] Telephone encounter Note * Telephone Encounter - César Merrill MD - 02/15/2024 10:03 AM EDT Let Katharine know that his recent labs along with his 's recent labs were ok. [facility]10-17-2024 History of Present illness Narrative* César [...] diet and regular exercise 5. 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 César Merrill MD documented in [facility]2024 NoteHNO ID: [id number] Author: CÉSAR MERRILL MD Service: ? Author [...] diarrhea and N (more content not included)... [facility]05-17-[facility] Telephone encounter Note* Telephone Encounter - Zohreh Hughes RN - 09/14/2023 2:48 PM EDT Teto Son returns the call and is notified of Dr. Merrill's instructions. He verbalizes understanding. [facility]05-17-2024 Miscellaneous Notes* Telephone Encounter - Zohreh [...] mcg once a day. documented in this encounter[facility] Telephone encounter Note * Telephone Encounter - Natalie Hebert LPN - 09/14/2023 1:16 PM EDT Left message to contact office for results. [facility]05-17-2024 Telephone encounter Note* Telephone Encounter - César Merrill MD - 09/14/2023 12:51 PM EDT Let patient (or since he has dementia) know his hemoglobin was back into a normal range. His B12 is improved but not wear it needs to be. He needs to increase his Vit B12 to 1500 mcg once a day. [facility]04-18-2024 Miscellaneous Notes* Telephone Encounter - Jeannette Oliveira RN - 08/16/2023 10:37 AM EDT Patient's son Atlee calls and notified of results and provider instructions. Atlee voices understanding. Jeannette Oliveira RN * Telephone Encounter - Valerie Johnson [...] repeated in a month. documented in [facility] Miscellaneous Notes* Telephone Encounter - Jeannette [...] labs to further evaluate. documented in this encounterAv[facility]24 Instructions* Patient Instructions* César Merrill MD - 08/08/2023 9:43 AM EDT Consider getting the shingrix vaccine for prevention of shingles, and RSV vaccine from a local pharmacy or the health dept Please bring in copies of your power of buffet attendant for health care and living will. documented in [facility] encounter[facility] History of Present illness Narrative* César [...] for pulmonary last visit 03/2023 Patient sees [facility] 03/2023 Patient sees Ophthalmology last [...] loss. BMI 37.69 kg/(m^2) 6. 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 César Merrill MD documented in this [facility]12-21-2023 Instructions* Patient Instructions* May Ragland MD - 04/19/2023 10:20 AM EST Use inhaler for SOB Oxygen reassessment documented in this [facility]12-21-2023 History of Present illness Narrative* May Ragland MD - 04/19/2023 10:00 AM EST Images from the original note were not included. . [facility] [place] Note Patient name: Katharine Cano PCP: César [...] had at L3-5 laminectomy with spinal fusion [facility] 04/22/23 with postoperative note of hypoxemia [...] 89%. DME: [employer] DATA: Reviewed EMR from [facility] Imaging / Diagnostic Studies: 03/20/23 STUDY: [...] acute cardiopulmonary disease. Reviewed portable CXR from [facility] which shows poor lung volumes but [...] of mild fibrosis May Ragland MD [facility] [place] [facility] this [facility] Progress note Author Lenore Robledo [facility] April 14, 2023 11:28am Note Date/Time April 14, 2023 11:28am [facility] Medical Records Department [address] [place] [address] Progress Note - Hospitalist 04/14/23 1124 MR#: [id number] Acct: [id number] Name: KATHARINE CANO Rep #:[id number] : 1945 78 From: Lenore Robledo DO PCP: Dr. César Merrill MD Status:ADM REESE Location: [place] [address] Reason for Visit Reason for Visit: Chronic back pain Subjective Subjective No issues overnight. Patient remains on 2 L nasal cannula and with ambulation did well with 2 L however at rest with no oxygen his oxygen saturation was 87%. He indicates he is followed with Dr. May Ragland over at [facility] previously and will do so after discharge. He is anxious to go home and would be willing to doso on oxygen if needed. 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 Charges/Coding Visit Charges Inpatient E&M: 94987 Subs Hosp L2 04/14/23 1128 <Electronically signed by Lenore Robledo DO> Cosigner Signature (if applicable): CC: ~ Signed [facility] Work Phone: 1(891) 987-140012-15-2023 Progress note Author Lenore Robledo [facility] April 13, 2023 10:53am Note Date/Time April 13, 2023 7:24am [facility] Medical Records Department [address] [place] [address] Progress Note - Hospitalist 04/13/23 0718 MR#: [id number] Acct: [id number] Name: KATHARINE CANO Rep #:[id number] : 1945 78 From: Lenore Robledo DO PCP: Dr. César Merrill MD Status:ADM REESE Location: [place] [address]-1 Reason for Visit Reason for Visit: Lumbar [...] distress and well nourished Constitutional Narrative: Older, Christianity, white male, sitting up in bed, family [...] 24 hours Charges/Coding Visit Charges Inpatient E&M: 70780 Subs Hosp L2 04/13/23 1053 <Electronically signed by Lenore Robledo DO> Cosigner Signature (if applicable): CC: ~ Signed [facility] Work Phone: 1(497) 367-108012-15-2023 Progress note Author César Tijerina [facility] April 13, 2023 6:45am Note Date/Time April 13, 2023 6:45am [facility] Medical Records Department [address] [place] [address] [place] [address] Progress Note - Orthopedic 04/13/23 0643 MR#: [id number] Acct: [id number] Name: KATHARINE CANO Rep #:[id number] : 1945 78 From: César Martin PCP: Dr. César Merrill MD Status:ADM REESE Location: MS3 [id number] Subjective Subjective Seen and examined postop day [...] Cosigner Signature (if applicable): CC: ~ Signed [facility] Work Phone: 1(293) 979-565712-15-2023 Progress note Author César Tijerina [facility] April 13, 2023 6:43am Note Date/Time April 12, 2023 8:06am [facility] Medical Records Department [address] [place] [address] Progress Note - Orthopedic 04/12/23805 MR#: [id number] Acct: [id number] Name: JEROMEKATHARINE Galvin Rep #:[id number] : 1945 78 From: César Martin PCP: Dr. César Merrill MD Status:ADM REESE Location: [place] [id number] Subjective Subjective Seen and examined postop. Resting [...] Cosigner Signature (if applicable): CC: ~ Signed [facility] Work Phone: 1(654) 552-177812-14-2023 Progress note Author Gogo Santizo [facility] April 12, 2023 6:13pm Note Date/Time April 12, 2023 6:13pm [facility] Medical Records Department [address] [place] [address] Progress Note - Hospitalist 04/12/231805 MR#: [id number] Acct: [id number] Name: KATHARINE CANO Rep #:[id number] : 1945 78 From: Gogo Santizo MD PCP: Dr. César Merrill MD Status:ADM REESE Location: [place]3 LP590-6 Reason for Visit Reason for Visit: Diagnoses Spinal stenosis, lumbar region without neurogenic claudication (04/12/23) Encounter for other preprocedural examination (04/12/23) Subjective Subjective 78-year-old male history of coronary artery disease status post stenting, lumbarstenosis, type 2 diabetes, hypertension presented to [facility] 04/12/2023 for lumbar stenosis requiring L3-5 posterior [...] documentation, 35minutes Charges/Coding Visit Charges Inpatient E&M: 03057 Subs Hosp L2 04/12/231812 <Electronically signed by Gogo Santizo MD> Cosigner Signature (if applicable): CC: ~ Signed [facility] Work Phone: 1(561) 912-664012-14-2023 Procedure [facility] 04-10-2023 History of Present illness Narrative* Demarcus Higginbotham LPN - 04/10/2023 2:26 PM EST Scan on 04/10/2023 10:15 AM by Provider, Tori, YURIDIA: Consultation - Ophthalmology documented in this encounterAv[facility]11-27-2023 History of Present illness Narrative* JeromeMauriceahBOBBY.LOOSE HAND PACKER - 03/26/2023 12:09 PM EST Chief Complaint [...] for surgery from my standpoint. Melody Cano APRN.LOOSE HAND PACKER documented in this encounterAvita [facility]11-22-2023 Miscellaneous Notes* Telephone Encounter - Mary Worthington - 03/21/2023 2:45 PM EST Pre-op form received. Mary Worthington * Telephone Encounter - Demarcus Higginbotham LPN - 03/15/2023 3:26 PM EST Received pre -op forms form [facility] L[facility]. Pt has appointment with Melody Cano 03/26. Forms placed in her mailbox. Demarcus Higginbotham LPN documented in this encounterAvita [facility]07-15-2023 Miscellaneous Notes* Telephone Encounter - César [...] have refills of metformin left at pharm. [facility] 05/31/22 NOV none scheduled. Was canceled by [...] notify patient. Elvia Condon documented in this encounterAvita [facility]04-11-2023 Miscellaneous Notes* Telephone Encounter - César [...] notify patient. Shima Ramon documented in this encounterAvita [facility]03-09-2023 History of Present illness Narrative* Diamond Cain MA - 07/06/2022 2:55 PM EST Scan on 07/04/2022 11:06 AM by External Provider: Consultation - Cardiology Scan on 07/04/2022 11:54 AM by External Provider: Chemistry Diamond Cain MA documented in this encounterAvita [facility]02-01-2023 Instructions* Patient Instructions* César Merrill MD - 05/31/2022 8:12 AM EST Please bring in copies of your living ramos and durable power of buffet attendant for health care. documented in this encounterAvita [facility]02-01-2023 History of Present illness Narrative* César [...] BMI 36.94 kg/(m^2) - Patient was counseled [id number] by myself (the billing provider) for the [...] - LIPID PANEL, NONFASTING 6. 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 - ICD9: 414.01, [...] routine César Merrill MD documented in this encounterAvita [facility]01-09-2023 Miscellaneous Notes* Telephone Encounter - Diamond [...] notify patient. Shima Ramon documented in this encounterAvita [facility]12-12-2022 Miscellaneous Notes* Telephone Encounter - Mary Portillo LPN - 04/10/2022 10:54 AM EST Order for overnight oximetry faxed to [facility]. Mary Portillo LPN * Telephone Encounter - Meggan Milligan PA-C - 04/10/2022 10:52 AM EST Printed order for nocturnal oximetry on RA with CPAP. Please FAX to [facility]. Meggan Milligan PA-C * Telephone Encounter - Mary Portillo LPN - 04/05/2022 10:03 AM EST [facility] 03/2021. Patient was requiring 2L at night. Mary Portillo LPN * Telephone Encounter - Karina Mcdonough LPN - 04/05/2022 9:56 AM EST Atlashlee, patients son, called. Verified name and date of of patient. Adelaida states he has been trying to get [employer] to [employer] that patient no longer uses and was told by them yesterday a referral is needed sent to [employer] to [employer]. Karina Mcdonough LPN documented in this encounterAvita [facility]10-14-2022 Miscellaneous Notes* Telephone Encounter - Diamond [...] Last refill; 07/2021 * Telephone Encounter - Jada Solomon - 02/10/2022 9:38 AM EDT Patient [...] advise. Jada Newton Pss documented in this encounterAvita [facility]07-21-2022 Miscellaneous Notes* Telephone Encounter - May [...] him with her dementia) documented in this encounterAvita [facility]07-19-2022 History of Present illness Narrative* César [...] D2 ORAL) Take 2,000 Units by mouth. Yoarcmnvyhu-Saufrhtpz-Fjj C-Mn (GLUCOSAMINE CHONDROITIN MAXSTR) 500-400 mg cap Take 1 capsule by mouth twice daily. simvastatin (ZOCOR) 80 mg tablet Take 1 tablet by mouth daily at bedtime. Per Dr. Barba Cinnamon Bark (CINNAMON) 500 mg cap Take 500 mg by mouth. Itypzxtlcbukh-Qbslywfn-Qrkvyr (CENTRUM SILVER) Tab Take 1 tablet by [...] Abs Lymph 1.00 - 4.00 k/uL 1.68 Bethel% % 11.5 Abs Bethel <0.87 k/uL 0.62 Eosin% % 3.9 Abs [...] complication, without long-term current use of insulin ([facility]) - ICD9: 250.00, ICD10: E11.9 (primary diagnosis) [...] - Continue current therapy. 5. 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 - ICD9: 414.01, [...] PE César Merrill MD documented in this encounterAvita [facility]05-31-2022 Miscellaneous Notes* Telephone Encounter - Demarcus Higginbotham LPN - 09/27/2021 8:46 AM EDT Pt's son advised of results. Demarcus Higginbotham LPN * Telephone Encounter - Katarzyna Munson PA-C - 09/27/2021 7:30 AM EDT Repeat calcium level is normal. Katarzyna Munson PA-C documented in this encounterAvita [facility]05-27-2022 Instructions* Patient Instructions* Katarzyna Munson PA-C - 09/23/2021 11:21 AM EDT Repeat calcium labs today. Follow up as scheduled in October. Return sooner as needed. documented in this encounterAvita [facility]05-27-2022 History of Present illness Narrative* Katarzyna Munson PA-C - 09/23/2021 11:14 AM EDT Chief Complaint Patient presents with: Recheck: labs done [facility] HPI Katharine Cano is a 76 year old male who presents here today for Above Complaints.. Patient was seen in [facility] on 09/19/21 for abdominal pain/nausea. Symptoms at [...] D2 ORAL) Take 2,000 Units by mouth. Thrgahfzble-Efwgruovc-Fhy C-Mn (GLUCOSAMINE CHONDROITIN MAXSTR) 500-400 mg cap Take 1 capsule by mouth twice daily. simvastatin (ZOCOR) 80 mg tablet Take 1 tablet by mouth daily at bedtime. Per Dr. Barba Cinnamon Bark (CINNAMON) 500 mg cap Take 500 mg by mouth. Ucaydfwhmouxo-Isgtvqbk-Zmwrlo (CENTRUM SILVER) Tab Take 1 tablet by [...] Abs Lymph 1.00 - 4.00 k/uL 2.18 Bethel% % 10.7 Abs Bethel <0.87 k/uL 0.80 Eosin% % 1.2 Abs [...] prior. Katarzyna Munson PA-C documented in this encounterAvita [facility]05-24-2022 Miscellaneous Notes* Telephone Encounter - Zahra [...] keep his appointment tomorrow. documented in this encounterAvita Health [facility]05-23-2022 History of Present illness Narrative* César [...] D2 ORAL) Take 2,000 Units by mouth. Bqixalbqovg-Jfihxzeei-Mqv C-Mn (GLUCOSAMINE CHONDROITIN MAXSTR) 500-400 mg cap Take 1 capsule by mouth twice daily. simvastatin (ZOCOR) 80 mg tablet Take 1 tablet by mouth daily at bedtime. Per Dr. Barba Cinnamon Bark (CINNAMON) 500 mg cap Take 500 mg by mouth. Mstiirllobsbj-Nneczuno-Nyupjh (CENTRUM SILVER) Tab Take 1 tablet by [...] ofcare. César Ghotra APRN.[employer] documented in this encounterAvita [facility]04-12-2022 Miscellaneous Notes* Telephone Encounter - César [...] notify patient. Elvia Condon documented in this encounterAvita [facility]03-24-2022 History of Present illness Narrative* Demarcus Higginbotham LPN - 07/21/2021 9:35 AM EDT Scan on 07/21/2021 9:08 AM by External Provider: Chemistry documented in this encounterAvita Health [facility]02-28-2022 Miscellaneous Notes* Telephone Encounter - Catarina [...] patient. Catarina Calvert Pss documented in this encounterAvita Health [facility]10-15-2021 History of Present illness Narrative* Christine [...] 11, 2021 2:06 PM documented in this encounterAvita [facility]04-01-1998 Evaluation note* Diagnosis Onset Date Resolution Status Essential hypertension acute Atherosclerotic heart diseas e of red devil coronary artery without angina pectoris chronic Hyperlipidemia chronic Stented coronary artery July, [facility] Work Phone: 1(308) 890-343004-01-1998 Evaluation note* Diagnosis Onset Date Resolution Status SEYMOUR (dyspnea on exertion) ac kashia Essential hypertension acute Hyperlipidemia chronic Nonrheumatic mitral (valve) prolapse chronic Stented coronary artery July, [facility] Work Phone: 1(447) 509-837304-01-1998 Evaluation note* Diagnosis Onset Date Resolution Status Essential hypertension acute Hyperlipidemia chronic Nonrheumatic mitral (valve) prolapse chronic Stented coronary artery July, [facility] Bradycardia acute First degree heart block acu te Hypoxia acute Lumbar stenosis acute Diabetes mellitus type II, controlled chronic Stented coronary artery July, [facility] Work Phone: Evaluation note* Diagnosis Abdominal pain, generalized- Primary [facility] [place] [facility]* Diagnosis Generalized abdominal pain- Primary Abdominal pain, generalized Hypercalcemia documented in this encounter [facility] note* Diagnosis Type 2 diabetes mellitus without complication, without long-term current use of insulin (HCC)- Primary Diabetic eye exam (HCC) Type II or unspecified type diabetes mellitus without mention of complication, not stated as uncontrolled Hypertension, essential Unspecified essential hypertension Mixed hyperlipidemia 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 KARLA (obstructive sleep apnea) Obstructive sleep apnea (adult) (pediatric) Nocturnal leg cramps Sleep related leg cramps Benign prostatic hyperplasia with urinary frequency Living will in place Advance directive discussed with patient Other specified counseling documented in this encounter [facility] note* Diagnosis Onset Date Resolution Status SEYMOUR (dyspnea on exertion) ac kashia Essential hypertension acute Atherosclerotic heart diseas e of red devil coronary artery without angina pectoris chronic Hyperlipidemia chronic Nonrheumatic mitral (valve) prolapse chronic Stented coronary artery July, [facility] Work Phone: Evaluation note* Diagnosis Pneumonia due to COVID-19 virus- Primary [facility]* Diagnosis Nocturnal leg cramps Sleep related leg cramps Benign prostatic hyperplasia with urinary frequency [facility]* Diagnosis Well adult exam- Primary Routine general medical examination at a health care facility Type 2 diabetes mellitus without complication, without long-term current use of insulin (HCC) Diabetic eye exam (HCC) Type II or unspecified type diabetes mellitus without mention of complication, not stated as uncontrolled Hypertension, essential Unspecified essential hypertension Mixed hyperlipidemia 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 KARLA (obstructive sleep [...] disorder of prostate [facility]* Diagnosis Nocturnal leg cramps Sleep related leg cramps Benign prostatic hyperplasia with urinary frequency [facility]* Diagnosis Preop examination- Primary Preoperative examination, unspecified [facility]* Diagnosis Diabetic eye exam (HCC) Type II or unspecified type diabetes mellitus without mention of complication, not stated as uncontrolled [facility]* Diagnosis Hypoxemia- Primary History of COVID-19 [facility]* Diagnosis Well adult exam- Primary Routine general medical examination at a health care facility Type 2 diabetes mellitus without complication, without long-term current use of insulin (HCC) Diabetic eye exam (HCC) Type II or unspecified type diabetes mellitus without mention of complication, not stated as uncontrolled Hypertension, essential Unspecified essential hypertension Mixed hyperlipidemia 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 KARLA (obstructive sleep apnea) Obstructive sleep apnea (adult) (pediatric) Benign prostatic hyperplasia with urinary frequency Advance directive discussed with patient Other specified counseling Screening for colon cancer Special screening for malignant neoplasms, colon Prostate disorder Unspecified disorder of prostate Nocturnal leg cramps Sleep related leg cramps documented in this encounter [facility]* Diagnosis Anemia, unspecified type- Primary documented in this encounter [facility] [place] [facility]* Diagnosis Vitamin B12 deficiency- Primary Other B-complex deficiencies documented in this encounter [facility] [place] [facility]* Diagnosis Pneumonia due to COVID-19 virus documented in this encounter [facility] [place] [facility]* Diagnosis Type 2 diabetes mellitus without complication, without long-term current use of insulin (HCC)- Primary Diabetic eye exam (HCC) Type II or unspecified type diabetes mellitus without mention of complication, not stated as uncontrolled Hypertension, essential Unspecified essential hypertension Mixed hyperlipidemia 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 KARLA (obstructive sleep apnea) Obstructive sleep apnea (adult) (pediatric) Vitamin B12 deficiency Other B-complex deficiencies Need for vaccination Need for prophylactic vaccination and inoculation against unspecified single disease Encounter for immunization Need for other specified prophylactic vaccination against single bacterial disease documented in this encounter [facility] note* Diagnosis URI, acute- Primary Acute upper respiratory infections of unspecified site documented in this encounter [facility]* Diagnosis Well adult exam- Primary Routine general medical examination at a health care facility Type 2 diabetes mellitus without complication, without long-term current use of insulin ([facility]) Diabetic eye exam (HCC) Type II or unspecified type diabetes mellitus without mention of complication, not stated as uncontrolled Hypertension, essential Unspecified essential hypertension Mixed hyperlipidemia 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 KARLA (obstructive sleep [...] and behavioral disorders documented in this encounter [facility] for referral (narrative)* Outpatient Procedure (Routine) - Pending Review Specialty Diagnoses / Procedures Referred By [facility] Diagnoses Hypoxemia Procedures OXIMETRY WITH AMBULATION NONINVASIVE EAR/PULSE OXIMETRY May Alford MD [address] [place] [address] Respiratory [place] [address] [place] [address] Referral ID Status Reason Start Date Expiration Date Visits Requested Visits Authorized [id number] Pending Review Auto-Generat ed Referral 3 05/18/2024 1 1 [facility]No reason for referral information availableMalden Bridge Medical Services Work Phone: Chief Complaint and Reason for Visit Chief Complaint 1 y fu INT LABS Reason for Visit Essential hypertensi on Atherosclerotic heart disease of red devil coronary artery without angina pectoris Hyperlipidemia Stented coronary artery Chief Complaint 6 M FU DYSPNEA Reason for Visit SEYMOUR (dyspnea on exer tion) Essential hypertension Atherosclerotic heart disease of red devil coronary artery without angina pectoris Hyperlipidemia Nonrheumatic [...] 2024 9:26am Atherosclerotic heart diseas e of red devil coronary artery without angina pectoris July 10, 2024 9:26am Hyperlipidemia July 10, 2024 9:2 6am PAOD (peripheral arterial occlusive dise ase) August 29, 2024 10:57am Reason for Visit Admit Date Essential hypertension July 10, 2024 9:26am Atherosclerotic heart diseas e of red devil coronary artery without angina pectoris July 10, 2024 9:26am Hyperlipidemia July 10, 2024 9:2 6am PAOD (peripheral arterial occlusive dise ase) August 29, 2024 10:57am Atherosclerosis of red devil 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, [...] 2024 9:26am Atherosclerotic heart diseas e of red devil coronary artery without angina pectoris July 10, 2024 9:26am Hyperlipidemia July 10, 2024 9:2 6am PAOD (peripheral arterial occlusive dise ase) August 29, 2024 10:57am Atherosclerosis of red devil 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, bilateral October 09, 2024 2:55pm Essential hypertension October 29, 2024 10 :17am Preop cardiovascular exam October 29, 2024 10:17am Atherosclerotic heart diseas e of red devil coronary artery without angina pectoris October 29, [...] Will No January 30 2:08pm Power of Pain Medicine Physician No January 30 021 2:08pm Advance Directive Response Recorded Date/ Time Name of Medical Power of Pain Medicine Physician SON April 12, 2023 4:00pm Living Will Yes April 12 023 4:00pm Power of Pain Medicine Physician Yes April 12, 2023 4:00pm Summary Purpose Additional Source Comments Source Comments (unrecognize d section and content) In the event this informatio n is protected by the Federal Confidentiality of Alcohol and Drug Abuse Patient Records regulations: The Federal rules restrict any use of the information to criminally investigate or prosecute any alcohol or drug abuse patient.[facility] HospitalIn the event this information is protected by the Federal Confidentiality of Alcohol and Drug Abuse Patient Records regulations: The Federal rules restrict any use of the information to criminally investigate or prosecute any alcohol or drug abuse patient.[facility] HospitalIn the event this information is protected by the Federal Confidentiality of Alcohol and Drug Abuse Patient Records regulations: The Federal rules restrict any use of the information to criminally investigate or prosecute any alcohol or drug abuse patient.[facility] HospitalIn the event this information is protected by the Federal Confidentiality of Alcohol and Drug Abuse Patient Records regulations: The Federal rules restrict any use of the information to criminally investigate or prosecute any alcohol or drug abuse patient.[facility] HospitalIn the event this information is protected by the Federal Confidentiality of Alcohol and Drug Abuse Patient Records regulations: The Federal rules restrict any use of the information to criminally investigate or prosecute any alcohol or drug abuse patient.[facility] HospitalIn the event this information is protected by the Federal Confidentiality of Alcohol and Drug Abuse Patient Records regulations: The Federal rules restrict any use of the information to criminally investigate or prosecute any alcohol or drug abuse patient.[facility] HospitalIn the event this information is protected by the Federal Confidentiality of Alcohol and Drug Abuse Patient Records regulations: The Federal rules restrict any use of the information to criminally investigate or prosecute any alcohol or drug abuse patient.[facility] HospitalIn the event this information is protected by the Federal Confidentiality of Alcohol and Drug Abuse Patient Records regulations: The Federal rules restrict any use of the information to criminally investigate or prosecute any alcohol or drug abuse patient.[facility] HospitalIn the event this information is protected by the Federal Confidentiality of Alcohol and Drug Abuse Patient Records regulations: The Federal rules restrict any use of the information to criminally investigate or prosecute any alcohol or drug abuse patient.[facility] HospitalIn the event this information is protected by the Federal Confidentiality of Alcohol and Drug Abuse Patient Records regulations: The Federal rules restrict any use of the information to criminally investigate or prosecute any alcohol or drug abuse patient.[facility] HospitalIn the event this information is protected by the Federal Confidentiality of Alcohol and Drug Abuse Patient Records regulations: The Federal rules restrict any use of the information to criminally investigate or prosecute any alcohol or drug abuse patient.[facility] HospitalIn the event this information is protected by the Federal Confidentiality of Alcohol and Drug Abuse Patient Records regulations: The Federal rules restrict any use of the information to criminally investigate or prosecute any alcohol or drug abuse patient.[facility] HospitalIn the event this information is protected by the Federal Confidentiality of Alcohol and Drug Abuse Patient Records regulations: The Federal rules restrict any use of the information to criminally investigate or prosecute any alcohol or drug abuse patient.[facility] HospitalIn the event this information is protected by the Federal Confidentiality of Alcohol and Drug Abuse Patient Records regulations: The Federal rules restrict any use of the information to criminally investigate or prosecute any alcohol or drug abuse patient.[facility] HospitalIn the event this information is protected by the Federal Confidentiality of Alcohol and Drug Abuse Patient Records regulations: The Federal rules restrict any use of the information to criminally investigate or prosecute any alcohol or drug abuse patient.[facility] HospitalIn the event this information is protected by the Federal Confidentiality of Alcohol and Drug Abuse Patient Records regulations: The Federal rules restrict any use of the information to criminally investigate or prosecute any alcohol or drug abuse patient.[facility] HospitalIn the event this information is protected by the Federal Confidentiality of Alcohol and Drug Abuse Patient Records regulations: The Federal rules restrict any use of the information to criminally investigate or prosecute any alcohol or drug abuse patient.[facility] HospitalIn the event this information is protected by the Federal Confidentiality of Alcohol and Drug Abuse Patient Records regulations: The Federal rules restrict any use of the information to criminally investigate or prosecute any alcohol or drug abuse patient.[facility] HospitalIn the event this information is protected by the Federal Confidentiality of Alcohol and Drug Abuse Patient Records regulations: The Federal rules restrict any use of the information to criminally investigate or prosecute any alcohol or drug abuse patient.[facility] HospitalIn the event this information is protected by the Federal Confidentiality of Alcohol and Drug Abuse Patient Records regulations: The Federal rules restrict any use of the information to criminally investigate or prosecute any alcohol or drug abuse patient.[facility] HospitalIn the event this information is protected by the Federal Confidentiality of Alcohol and Drug Abuse Patient Records regulations: The Federal rules restrict any use of the information to criminally investigate or prosecute any alcohol or drug abuse patient.[facility] HospitalIn the event this information is protected by the Federal Confidentiality of Alcohol and Drug Abuse Patient Records regulations: The Federal rules restrict any use of the information to criminally investigate or prosecute any alcohol or drug abuse patient.[facility] HospitalIn the event this information is protected by the Federal Confidentiality of Alcohol and Drug Abuse Patient Records regulations: The Federal rules restrict any use of the information to criminally investigate or prosecute any alcohol or drug abuse patient.[facility] HospitalIn the event this information is protected by the Federal Confidentiality of Alcohol and Drug Abuse Patient Records regulations: The Federal rules restrict any use of the information to criminally investigate or prosecute any alcohol or drug abuse patient.[facility] HospitalIn the event this information is protected by the Federal Confidentiality of Alcohol and Drug Abuse Patient Records regulations: The Federal rules restrict any use of the information to criminally investigate or prosecute any alcohol or drug abuse patient.[facility] HospitalIn the event this information is protected by the Federal Confidentiality of Alcohol and Drug Abuse Patient Records regulations: The Federal rules restrict any use of the information to criminally investigate or prosecute any alcohol or drug abuse patient.[facility] HospitalIn the event this information is protected by the Federal Confidentiality of Alcohol and Drug Abuse Patient Records regulations: The Federal rules restrict any use of the information to criminally investigate or prosecute any alcohol or drug abuse patient.[facility] HospitalIn the event this information is protected by the Federal Confidentiality of Alcohol and Drug Abuse Patient Records regulations: The Federal rules restrict any use of the information to criminally investigate or prosecute any alcohol or drug abuse patient.[facility] HospitalIn the event this information is protected by the Federal Confidentiality of Alcohol and Drug Abuse Patient Records regulations: The Federal rules restrict any use of the information to criminally investigate or prosecute any alcohol or drug abuse patient.[facility] HospitalIn the event this information is protected by the Federal Confidentiality of Alcohol and Drug Abuse Patient Records regulations: The Federal rules restrict any use of the information to criminally investigate or prosecute any alcohol or drug abuse patient.[facility] HospitalIn the event this information is protected by the Federal Confidentiality of Alcohol and Drug Abuse Patient Records regulations: The Federal rules restrict any use of the information to criminally investigate or prosecute any alcohol or drug abuse patient.[facility] HospitalIn the event this information is protected by the Federal Confidentiality of Alcohol and Drug Abuse Patient Records regulations: The Federal rules restrict any use of the information to criminally investigate or prosecute any alcohol or drug abuse patient.[facility] HospitalIn the event this information is protected by the Federal Confidentiality of Alcohol and Drug Abuse Patient Records regulations: The Federal rules restrict any use of the information to criminally investigate or prosecute any alcohol or drug abuse patient.[facility] HospitalIn the event this information is protected by the Federal Confidentiality of Alcohol and Drug Abuse Patient Records regulations: The Federal rules restrict any use of the information to criminally investigate or prosecute any alcohol or drug abuse patient.[facility] HospitalIn the event this information is protected by the Federal Confidentiality of Alcohol and Drug Abuse Patient Records regulations: The Federal rules restrict any use of the information to criminally investigate or prosecute any alcohol or drug abuse patient.[facility] HospitalIn the event this information is protected by the Federal Confidentiality of Alcohol and Drug Abuse Patient Records regulations: The Federal rules restrict any use of the information to criminally investigate or prosecute any alcohol or drug abuse patient.[facility] HospitalIn the event this information is protected by the Federal Confidentiality of Alcohol and Drug Abuse Patient Records regulations: The Federal rules restrict any use of the information to criminally investigate or prosecute any alcohol or drug abuse patient.[facility] HospitalIn the event this information is protected by the Federal Confidentiality of Alcohol and Drug Abuse Patient Records regulations: The Federal rules restrict any use of the information to criminally investigate or prosecute any alcohol or drug abuse patient.[facility] Reason for Visit (unrecogniz ed section [...] Diagnoses consult/test/treat Procedures consult/test/treat César Merrill MD [address] [place] [address] [facility] Dept Referral ID Status Reason Start Date Expiration Date Visits Requested Visits Authorized [id number] Authorized Patient Cleared - Qualified 100% FAS [...] consult/test/treat Procedures consult/test/treat César Merrill MD [address] [place] [address] [facility] [place] [address] Referral ID Status Reason Start Date Expiration Date V isits Requested Visits Authorized [id number] Closed Patient Cleared - Qualified 100% FAS 11/28/2022 02/28/2023 99 99 Reason Comments Hospital F/U Specialty Diagnoses / Procedures Referred By Contac t Referred To Contact [facility] Diagnoses [facility] Hosp discharge oxygen levels dropped after surgery was discharged with O2 Procedures hosp follow up Self [facility] [place] [address] [place] [address] Referral ID Status Reason Start Date Expiration Date Visits Requested Visits Authorized [id number] Authorized Patient Cleared - Qualified 100% FAS 07/15/2023 99 99 Specialty Diagnoses / Procedures Referred By Contac t Referred To Contact Family Medicine / FAMILY MEDICINE Diagnoses [facility] FOLLOW UP-COVID/PNEUMONIA DISCHARGED 02/02 Procedures 4C EST HOSP/ER FU Self Terry Sullivan, MEDICAL SOCIAL WORKER.LOOSE HAND PACKER, DNP [address] [place] [address] Referral ID Status Reason Start Date Expiration Date V isits Requested Visits Authorized [id number] Closed Patient Cleared - Qualified 100% FAS 02/11/2021 05/12/2021 99 99 Reason Comments 6 Month Exam Specialty Diagnoses / Procedures Referred By Contac t Referred To Contact Family Medicine / FAMILY MEDICINE Diagnoses 6 month follow up Procedures 4C EST César Merrill MD [address] [place] [address] César Merrill MD [address] [place] [address] Referral ID Status Reason Start Date Expiration Date Visits Requested Visits Authorized [id number] Authorized Patient Cleared - Qualified 100% FAS 05/14/2024 99 99 Reason Comments Chest Congestion cough x 3 days Reason Comments Outside Diabetic Eye Exam Reason Onset Date Comments Refill Request 07/18/2024 Reason Comments Physical Specialty Diagnoses / Procedures Referred By Contac t Referred To Contact Family Medicine / [facility] Diagnoses cough, chest congestion Procedures EST SAME DAY Self Deysi Cain APRN.LOOSE HAND PACKER [address] [place] [address] Phone: tel: fax: Referral ID Status Reason Start Date Expiration Date Visits Requested Visits Authorized [id number] Authorized Patient Cleared - Qualified 100% FAS 06/10/2024 09/08/2024 99 99 Reason Comments Patient Update Reason Comments Outside Vascular Reason Onset Date Comments Refill Request 09/10/2024 Reason Onset Date Comments Refill Request 10/14/2024 Reason Comments Results Outside results Care Teams (unrecognized sec tion and content) Unit Assembler Relationship Specialty Start Date End Date César Merrill MD [address] [place], [place] [id number] PCP - General Family Practice 12/11/16 Unit Assembler Relationship Specialty Start Date End Date César Merrill MD [address] [place] [address] PCP - General Family Practice 12/11/16 Unit Assembler Relationship Specialty Start Date End Date César Merrill MD [address] [place], [place] [id number] [phone] PCP - General Family Practice 12/11/16 Unit Assembler Relationship Specialty Start Date End Date Cés[place] [address] [place] [id number] [phone] PCP - General Family Practice 12/11/16 Unit Assembler Relationship Specialty Start Date End Date César Merrill MD [address] [facility] [place] [address] PCP - General Family Practice 12/11/16 Unit Assembler Relationship Specialty Start Date End Date César Merrill MD [address] [facility] [place] [address] PCP - General Family Practice 12/11/16 Unit Assembler Relationship Specialty Start Date End Date César Merrill MD [address] [facility] [place] [address] PCP - General Family Practice 12/11/16 Unit Assembler Relationship Specialty Start Date End Date César Merrill MD [facility] [place] [address] PCP - General Family Practice 12/11/16 Unit Assembler Relationship Specialty Start Date End Date César Merrill MD [address] [facility] [place] [address] PCP - General Family Medicine 12/11/16 Unit Assembler Relationship Specialty Start Date End Date César Merrill MD [address] [facility] [place] [address] PCP - General Family Medicine 12/11/16 Unit Assembler Relationship Specialty Start Date End Date César Merrill MD [facility] [place] [address] PCP - General Family Medicine 12/11/16 Unit Assembler Relationship Specialty Start Date End Date César Merrill MD [address] [facility] [place] [address] PCP - General Family Medicine 12/11/16 Unit Assembler Relationship Specialty Start Date End Date César Merrill MD [facility] [place] [address] PCP - General Family Medicine 12/11/16 Team Status: Active Member Role Status Dates Dr. César Merrill MD Family Provider Active Dr. César Merrill MD Primary Care Provider Active Team Status: Inactive Member Role Status Dates Dr. César Merrill MD Primary Care Provider, Referri ng Provider Active January Loera DINKEY MOTOR OPERATOR, DINKEY MOTOR OPERATOR-C Attending Provider Active Team Status: Inactive Member Role Status Dates Dr. César Merrill MD Primary Care Provider Active January Loera DINKEY MOTOR OPERATOR, DINKEY MOTOR OPERATOR-C Attending Provider, Patrick gregory Active Unit Assembler Relationship Specialty Start Date End Date César Merrill MD [address] [place] [address] PCP - General Family Medicine 12/11/16 Unit Assembler Relationship Specialty Start Date End Date César Merrill MD [address] [place] [address] PCP - General Family Medicine 12/11/16 Unit Assembler Relationship Specialty Start Date End Date César Merrill MD [address] [place] [address] PCP - General Family Medicine 12/11/16 Unit Assembler Relationship Specialty Start Date End Date César Merrill MD [address] [place] [address] PCP - General Family Medicine 12/11/16 Unit Assembler Relationship Specialty Start Date End Date César Merrill MD [address] [place] [address] PCP - General Family Medicine 12/11/16 Unit Assembler Relationship Specialty Start Date End Date César Merrill MD [address] [place] [address] PCP - General Family Medicine 12/11/16 Unit Assembler Relationship Specialty Start Date End Date César Merrill MD [address] [place] [address] PCP - General Family Medicine 12/11/16 Unit Assembler Relationship Specialty Start Date End Date César Merrill MD [address] [place] [address] PCP - General Family Medicine 12/11/16 Unit Assembler Relationship Specialty Start Date End Date César Merrill MD [address] [place] [address] PCP - General Family Medicine 12/11/16 Unit Assembler Relationship Specialty Start Date End Date César Merrill MD [address] [place] [address] PCP - General Family Medicine 12/11/16 Unit Assembler Relationship Specialty Start Date End Date César Merrill MD [address] [place] [address] PCP - General Family Medicine 12/11/16 Team [...] Dr. Lenore Robledo DO Other Provider Active Unit Assembler Relationship Specialty Start Date End Date César Merrill MD [address] [place] [address] PCP - General Family Medicine 12/11/16 Fartun Knight, BOBBY.LOOSE HAND PACKER [address] [place] [address] Pipefitter Helper Family Medicine 04/05/24 Katarzyna Munson PA-C [address] [place] [address] [facility] 04/[facility]/24 Unit Assembler Relationship Specialty Start Date End Date César Merrill MD [address] [place] [address] PCP - General Family Medicine 12/11/16 Fartun Knight, BOBBY.LOOSE HAND PACKER [address] [place] [address] Pipefitter Helper Family Medicine 04/05/24 Katarzyna Munson PA-C [address] [place] [address] Pipefitter Helper Family Medicine 04/05/24 Unit Assembler Relationship Specialty Start Date End Date César Merrill MD [address] [place] [address] PCP - General Family Medicine 12/11/16 Fartun Knight, BOBBY.LOOSE HAND PACKER [address] [place] [address] Pipefitter Helper Family Medicine 04/05/24 Katarzyna Munson PA-C [address] [facility] [place] [address] Pipefitter Helper Family Medicine 04/05/24 Unit Assembler Relationship Specialty Start Date End Date César Merrill MD [address] [facility] [place] [address] PCP - General Family Medicine 12/11/16 Fartun Knight, BOBBY.LOOSE HAND PACKER [address] [place] [address] Pipefitter Helper Family Medicine 04/05/24 Katarzyna Munson PA-C [address] [place] [address] Pipefitter Helper Family Medicine 04/05/24 Unit Assembler Relationship Specialty Start Date End Date César Merrill MD [address] [place] [address] PCP - General Family Medicine 12/11/16 Fartun Knight, BOBBY.LOOSE HAND PACKER [address] [place] [address] Pipefitter Helper Family Medicine 04/05/24 Katarzyna Munson PA-C [address] [facility] [place] [address] Pipefitter Helper Family Medicine 04/05/24 Unit Assembler Relationship Specialty Start Date End Date César Merrill MD [address] [place] [address] PCP - General Family Medicine 12/11/16 08/03/24 César Merrill MD [address] [place] [address] [place] [address] PCP - General Family Medicine 08/04/24 Fartun Knight APRN.LOOSE HAND PACKER [address] [place] [address] Pipefitter Helper Family Medicine 04/05/24 Katarzyna Munson PA-C [address] [place] [address] Pipefitter Helper Family Medicine 04/05/24 Unit Assembler Relationship Specialty Start Date End Date César Merrill MD [address] [place] [address] PCP - General Family Medicine 08/04/24 Fartun Knight APRN.LOOSE HAND PACKER [address] [place] [address] Pipefitter Helper Family Medicine 04/05/24 Katarzyna Munson PA-C [address] [place] [address] Pipefitter Helper Family Medicine 04/05/24 Unit Assembler Relationship Specialty Start Date End Date César Merrill MD [address] [place] [address] PCP - General Family Medicine 08/04/24 Fartun Knight APRN.LOOSE HAND PACKER [address] [place] [address] Pipefitter Helper Family Medicine 04/05/24 Katarzyna Munson PA-C [address] [place] [address] Pipefitter Helper Family Medicine 04/05/24 Team Status: Active Member [...] October 03, 2024 End: October 03, 2024 Unit Assembler Relationship Specialty Start Date End Date César Merrill MD [address] [place] [address] PCP - General Family Medicine 08/04/24 Fartun Knight APRN.LOOSE HAND PACKER [facility] [place] [address] Pipefitter Helper Family Medicine 09/29/24 Katarzyna Munson PA-C [facility] [place] [address] Pipefitter Helper Family Medicine 09/29/24 Unit Assembler Relationship Specialty Start Date End Date César Merrill MD [address] [place] [address] PCP - General Family Medicine 08/04/24 Fartun Knight APRN.LOOSE HAND PACKER [address] [place] [address] Pipefitter Helper Family Medicine 09/29/24 Katarzyna Munson PA-C [address] [place] [address] Pipefitter Helper Family Medicine 09/29/24 Unit Assembler Relationship Specialty Start Date End Date César Merrill MD [address] [place] [address] PCP - General Family Medicine 08/04/24 Fartun Knight APRN.LOOSE HAND PACKER [address] [place] [address] Pipefitter Helper Family Medicine 09/29/24 Katarzyna Munson PA-C [address] [place] [address] Pipefitter Helper Family Medicine 09/29/24 Team Status: Active Member [...] 2024 End: October 29, 2024 Trey Malagon DINKEY MOTOR OPERATOR, DINKEY MOTOR OPERATOR-C Attending Provider Active S tart: October 29, [...] section and content) DATE CREATED AUTHOR 08/17/2023 [facility] DATE CREATED AUTHOR AUTHOR'S ORGANIZ ATION 10/20/2024 [facility] DATE CREATED AUTHOR AUTHOR'S ORGANIZ ATION 10/31/2024 [facility] FOR RECORDS PERTAINING TO PATIENTS WHO [...] BE BASED ON THE PRIMARY CLINICAL RECORDS. [facility] [employer] provides no warranty or guarantee of the accuracy or completeness of information in this document.
--- OUTSIDE RECORDS SUMMARY | 2024-11-12 06:30 | XMS RPT_ITS | CCD ---
Author Organization [facility] [employer] Care Team Providers Care Lot Boss Name Role Phone Baker Padma Unavailable Unavailable Roof CIGARETTE MACHINES MECHANIC, Trey Alvarado Unavailable Padma Baker Unavailable Unavailable Padma Baker Unavailable Unavailable Padma Baker Unavailable Unavailable César Merrill MD Primary Care Provider Dr. César Merrill Primary Care Provider Dr. César Merrill Referring Provider Dr. Evan Michael Attending Provider Dr. César Merrill Primary Care Provider Dr. César Merrill Referring Provider CONRADO Loera NP Attending Provider Dr. Evan Michael Attending Provider [phone] César Merrill MD Primary Care Provider César Merrill MD Primary Care Provider [phone] Dr. César Merrill Primary Care Provider Dr. César Merrill Referring Provider Evaristo MORENO, JOSH-Maria L Sin Attending Provider César Merrill MD Primary Care Provider [phone] César Merrill MD Primary Care Provider Dr. César Merrill Primary Care Provider Dr. César Merrill Referring Provider Jaskaran MITCHELL, PA Rayna Gonzalez Attending Provider Dr. César Tijerina Admit Provider [phone] César Tijerina Referring Provider [phone] Dr. César Tijerina Other Provider Dr. Gogo Santizo Attending Provider Dr. Gogo Santizo Other Provider Dr. Lenore Robledo Attending Provider Dr. Lenoer Robledo Other Provider Antonia BRUSH FINISHER.RUFFLER, Fartun Unavailable Maximilian Munson PA-Ce Unavailable Desirae BAIN, César Rascon Primary Care Provider Desirae BAIN, César Rascon Primary Care Provider Desirae BAIN, Dr. Lindsey Primary Care Provider [phone] Desirae BAIN, Dr. Lindsey Referring Provider Dr. London Tobar MD Attending Provider Sloane Villela Attending Provider [phone] Sloane Villela Referring Provider [phone] Lenny Taylor MD Attending Provider Antonia BRUSH FINISHER.RUFFLER, Fartun Unavailable Arpit SHI Katarzyna Unavailable DESIRAE, [...] Unavailable DESIRAE, CÉSAR A Primary Care Unavailable Manas MORENO-CTrey Attending Provider Desirae, César Primary Care Unavailable Desirae, César Referring Unavailable Trey Malagon NP Attending Unavailable Desirae, César Referring Unavailable Desirae, César Primary Care Unavailable London Tobar Attending Unavailable Lenny Taylor Attending Unavailable Lenny Taylor Admitting Unavailable Desirae, César Primary Care Unavailable César Merrill Primary Care Unavailable Sloane Rush Referring Unavailable Sloane Rush Attending Unavailable César Merrill Primary Care Unavailable Manas MORENO, Trey Alvarado Referring Unavailable Manas MORENO, Trey Alvarado Attending Unavailable César Merrill Referring Unavailable Lenny Taylor Attending Unavailable DesiraeCésar Primary Care Unavailable César Merrill Referring Unavailable César Merrill Primary Care Unavailable Sloane Rush Attending Unavailable Allergies Allergy Classification Reported Allergen(s) Allergy Type Date of Onset Reaction(s) Facility (5 sources) rosuvastatin drug allergy 1 Rash [facility] Work Phone: (20 sources) metFORMIN; Translations: [METFORMIN] Drug Allergy 6 Diarrhea [facility] Work Phone: (20 sources) rosuvastatin; Translations: [ROSUVASTATIN CALCIUM] Drug Allergy 7 Other: See Comments [facility] Work Phone: (20 sources) valsartan; Translations: [VALSARTAN] Drug Allergy 5 Cough [facility] (20 sources) Zinc; Translations: [ZINC] Drug Allergy 5 Intolerance [facility] Work Phone: (7 sources) rosuvastatin Drug Allergy 2 [facility] (1 source) rosuvastatin Drug Allergy 5 [facility] Repository Medications Current Medications Medication Drug [...] TBEC One tablet by mouth daily ASPIRIN [id number] Mirna Weeks Start: 08-26-2010 take 1 tablet by lobito th once daily ADULT ASPIRIN EC LOW STRENGTH 81 MG TBEC One tablet by mouth daily ASPIRIN [id number] Mirna Weeks Start: 08-26-2010 take 2 tablets by mo [facility] once daily ASPIRIN 81 MG TABS Two tablets by mouth daily ASPIRIN [id number] Madie Kearney Start: 11-01-2006 take 1 tablet by lobito th in the morning Aspirin 81 mg ORAL Tab Take 81 mg by mouth. Take (2) tablets in the morning 0 11/01/2006 Active Start: 11-01-2006 take 2 tablets by mo [facility] once daily Aspirin 81 mg ORAL Tab [...] TABS One tablet by mouth daily ATENOLOL [id number] Terry Barba MD Comment on above: Take [...] on above: Take 1 capsule by mo [facility] daily at bedtime for 180 days. For [...] on above: Take 1 capsule by mo [facility] daily at bedtime. Bringing good RX coupon. [...] TABS One tablet by mouth daily CYANOCOBALAMIN [id number] Terry Barba MD Comment on above: Take [...] TABS One tablet by mouth daily CHOLECALCIFEROL [id number] Terry Barba MD chondroitin sulfates 400 mg / glucosamine hydrochloride 500 mg oral capsule (11 sources) Start: 12-11-2016 End: 11-15-2021 take 1 capsule by mouth twice daily Qqrixgbmrha-Ocrgnxnan-Pay C-Mn (GLUCOSAMINE CHONDROITIN MAXSTR) 500-400 mg cap Take 1 capsule by mouth twice daily. 12/11/2016 11/15/2021 Discontinued (Discontinued by Patient) Start: 08-26-2010 take 1 tablet by lobito th once daily GLUCOSAMINE-CHONDROITIN CAPS One tablet by mouth daily GLUCOSAMINE-CHONDROITIN CAPS [id number] Madie M Christel Start: 08-26-2010 take 1 tablet by lobito th once daily GLUCOSAMINE-CHONDROITIN CAPS One tablet by mouth daily GLUCOSAMINE-CHONDROITIN CAPS 80919495557 Madie Kearney Start: 08-26-2010 take 1 tablet by lobito th once daily GLUCOSAMINE-CHONDROITIN CAPS One tablet by mouth daily GLUCOSAMINE-CHONDROITIN CAPS 03323699209 Madie Kearney Comment on above: Take 1 capsule by mo uth twice daily. cinnamon bark 500 mg oral [...] One tablet by mouth twice daily FLURBIPROFEN [id number] Madie Kearney Comment on above: TAKE ONE TABLET BY M OUTH TWICE DAILY FOR ARTHRITIS TAKE ONE TABLET BY M OUTH TWICE DAILY FOR ARTHRITIS, as needed folic acid 1 mg oral tablet (10 sources) Start: 1 End: 2 take 2 tablets by mouth once daily FOLIC ACID 1 MG TABS Two tablets by mouth daily FOLIC ACID 46305021676 Ray Guajardo MD glimepiride 4 mg oral [...] TABS One tablet by mouth daily GLIMEPIRIDE 26059308480 Terry Barba MD Comment on above: Take 1 tablet by lobito th twice daily with meals. Take 1 tablet by lobito th two times a day with meals. Rquspbnmlou-Aeljaqufk-Qxh C-Mn (GLUCOSAMINE CHONDROITIN MAXSTR) 500-400 mg cap (3 sources) Start: 2016 take 1 capsule by mouth twice daily Jgjxdjyruyn-Pqjvljvgh-Oc t C-Mn (GLUCOSAMINE CHONDROITIN MAXSTR) 500-400 mg cap Take 1 capsule by mouth twice daily. 0 12/11/2016 Active Comment on above: Take 1 capsule by mo [facility] twice daily. hydroCHLOROthiazide 12.5 mg oral tablet [...] Comment on above: Take 1 tablet by [facility] once daily. 200 actuat ipratropium bromide 0.017 mg/actuat metered dose inhaler (4 sources) Anticholinergic Start: 04-14-2023 End: 07-10-2024 Ipratropium [place] (Atrovent Hfa) 17 mcg/actuation HFA aerosol inhaler [...] One tablet by mouth daily LOSARTAN POTASSIUM [id number] Rayna Jessica PA-C 24 hr metFORMIN hydrochloride [...] tablet by mouth twice daily METFORMIN HCL 98796922022 Terry Barba MD Comment on above: Take 2 in the mornin g with breakfast and two in the evening. MULTIPLE VITAMIN (2 sources) Start: 08-26-2010 take 1 tablet by mouth once daily MULTIVITAMINS TABS One tablet by mouth daily MULTIPLE VITAMIN 63441198198 Madie Kearney MULTIPLE VITAMIN (3 sources) Start: 08-26-2010 take 1 tablet by mouth once daily MULTIVITAMINS TABS One tablet by mouth daily MULTIPLE VITAMIN 78043515414 Madie Kearney Start: 08-26-2010 take 1 tablet by lobito th once daily MULTIVITAMINS TABS One tablet by mouth daily MULTIPLE VITAMIN 84254697295 Madie Kearney Multivitamin tablet (3 sources) Start: 08-18-2017 End: 01-11-2022 Multivitamin tablet Discontinued 1 {tbl} PO daily August 18, 2017 12:00am January 11, 2022 10:10am Ujumpwlwkjyvt-Bajooamc-G utein (CENTRUM SILVER) Tab (9 sources) Start: 10-21-2012 End: 11-15-2021 take 1 tablet by mouth once daily Multivitamins-Minerals- Lutein (CENTRUM SILVER) Tab Take 1 tablet by mouth once daily. 1 tablet 0 10/21/2012 11/15/2021 Discontinued (Discontinued by Patient) Start: 10-21-2012 take 1 tablet by lobito th once daily Jpabjbjkgmgej-Illuqwre-Uitzzx (CENTRUM SILVER) Tab Take 1 tablet by mouth once daily. 1 tablet 0 10/21/2012 Active Comment on above: Take 1 tablet by lobito th once daily. nitroglycerin 0.4 mg sublingual tablet (20 sources) Nitrate Vasodilator Start: 08-18-2017 End: 08-08-2023 Nitroglycerin 0.4 mg tablet, sublingual Discontinued 0.4 mg SL every 5 to 15 minutes as needed for chest pain 22 07April 08, 2018 3:30pm November 04, 2018 2:20pm Start: 08-26-2010 NITROSTAT 0.4 MG SUBL 1 tablet under tongue every 5 min up to 3 X NITROGLYCERIN [id number] Ray Guajardo MD Comment on above: Dissolve 1 tablet un [place] the tongue as directed. EVERY 5 MIN X3 orphenadrine citrate 100 mg oral tablet (5 sources) Muscle Relaxant Start: 1 take 1 tablet by mouth at bedtime NORFLEX SOLN 100mg, One tablet by mouth at bedtime. ORPHENADRINE CITRATE SOLN [id number] Madie Kearney predniSONE 10 mg oral tablet [...] Coronary arteriosclerosis; Translations: [Atherosclerotic heart disease of [place] coronary artery without angina pectoris] Onset: 05-02-2007 [...] Chronic Comment on above: Arterial study from [facility] 08/21/24:R WILMA 0.25 with monophasic waveformsL [...] (3 sources) Long-term drug therapy; Translations: [Other long term care social worker (current) drug therapy] Onset: 08-26-2010 08-26-2010 [...] to mid RCA per Dr. Tobar @ [facility] Genitourinary symptoms and ill-defined conditions (20 sources) Increased frequency of urination; Translations: [Frequency of micturition] Onset: 10-27-2019 10-27-2019 Episodic Immunizations and screening for infectious disease (3 sources) Vaccination needed; Translations: [Encounter for immunization] Onset: 02-14-2024 02-14-2024 Episodic Nutritional deficiencies (19 sources) Cobalamin deficiency; Translations: [Deficiency of other specified B group vitamins] Onset: 08-16-2023 08-16-2023 Episodic Other aftercare (2 sources) Other correction (current) drug therapy; Translations: [Other long term care social worker (current) drug therapy] Onset: 08-26-2010 08-26-2010 Episodic [...] Facility Cardiology Visit Reporton Cardiology Visit Report [facility] [address] [place] [address] OFFICE VISIT Date of Service: 10/29/24 MR#: [id number] Acct: [id number] Name: KATHARINE CANO Rep #: [id number] : 1945 Provider: CONRADO moyer Age/Sex: 79/M Location: [facility] Status: Signed HPI HPI History of Present Illness Details: Patient is a very pleasant 79-year-old Yazdanism white male that comes in today for [...] Intake Visit Reasons: Surgical Clearance (See Note) Sales And Support Center Agent Required: No Accompanied by: Is patient in [...] artery ( 08/01/97) Atherosclerotic heart disease of [place] coronary artery without angina pectoris Diabetes mellitus [...] SOB orthopne (more content not included)... Normal [facility] MR/BMSAllie 10-09-2024 MR/BMSKAREN [facility] Vascular Surgery [address] [place] [address] OFFICE VISIT Date of Service: 10/09/24 MR#: [id number] Acct: [id number] Name: JEROMEKATHARINE Rep #: [id number] : 1945 Provider: Dr. Lenny Taylor MD Age/Sex: 79/M Location: [facility] Status: Signed Intake Vital [...] artery ( 08/01/97) Atherosclerotic heart disease of [place] coronary artery without angina pectoris Diabetes mellitus [...] No emphysema (more content not included)... Normal [facility] CREATININE FINGERSTICKon Creatinine [Mass/Vol] 1.4 mg/dL High 0.70-1.30 [facility] Comment on above: Performed By: #### L 9100.0200 #### [facility] [address] [place], [address] GFR/1.73 sq M.predicted among non-blacks MDRD (S/P/Bld) [Vol rate/Area] 51.0000 mL/min/{1.73_m2} Low >60 [facility] Comment on above: Performed By: #### L 9100.0200 #### [facility] [address] [place], [address] CTA Abd w/Runoff W/WO Contra ston 10-03-2024 CTA Abd w/Runoff W/WO Contrast [facility] [address] [place], [place] [address] CTA Abd w/Runoff W/WO Contrast MR#: [id number] Acct: [id number] Name: KATHARINE CANO Kamar Rep #: [id number] : 1945 M 79 From: Gloria weiner MD PCP: Dr. César Merrill MD Status: REG CLI Study: CTA Abd w/Runoff W/WO Contrast Date of Exam: 0 10/03/24 Exam# [id number] Ordering Dr: Sloane Rush PROCEDURE: CTA ABD [...] Contrast IMPRESSION: Atherosclerosis. Multifocal stenosis. Reading Location: [place] [address] CC: STEPHEN Toth; Dr. César Merrill MD Manager Drive: Signed Normal [facility] Creatinine measurement at dsideOrdered By: Sloane Rush on 10-03-2024 Creatinine [Mass/Vol] 1.4 mg/dL High 0.70-1.30 [facility] EGFROrdered By: Sloane Rush on 10-03-2024 GFR/1.73 sq M.predicted among non-blacks MDRD (S/P/Bld) [Vol rate/Area] 51.0000 mL/min/{1.73_m2} Low >60 [facility] MR/BMSAllie 08-29-2024 /BMS.SALVADOR [facility] [address] [place] [address] OFFICE VISIT Date of Service: 08/29/24 MR#: [id number] Acct: [id number] Name: KATHARINE CANO Rep #: [id number] : 1945 Provider: STEPHEN Toth Age/Sex: 79/M Location: [facility] Status: Signed Intake Vital Signs 07/10/24 09:30 [...] Reasons: Severe PVD Chief Complaint: Establish Care Sales And Support Center Agent Required: No Is patient in pain?: Yes Allergies rosuvastatin (From Crestor) Allergy (Intermediate, Verified 07/10/24 09:30) Rash Medications [...] artery ( 08/01/97) Atherosclerotic heart disease of [place] coronary artery without angina pectoris Diabetes mellitus [...] thyroid canc (more content not included)... Normal [facility]on 2024 [facility] Non-Invasive Vascula r [facility] Lower Extremity Arterial Physiology Study Bilateral/Complete [...] physician: Diego Rice MD, ZAID Final CC [employer] [facility] Image : [id number] amicsSISUID See Link below for Image [facility] CNPN Telephone (FAMAmberWS) KATHARINE CANO ([id number]) 1945 M Date Time Provider Department 07/31/24 [...] 80mg daily that was originally prescribed through [facility]. Last visit with them on [...] Status:Closed by JEANNETTE OLIVEIRA on 08/05/24 Normal [facility] ALBUMIN/CREATININE RATIO, UR INEon 07-24-2024 Albumin DL <= 20 mg/L (U) [Mass/Vol] mg/dL Normal [facility] Comment on above: Order Comment: Speci men Type: URINE SPECIMENOrdering Facility: [facility] Address: [address] [place] [address] Performed By: #### U ACR ####[facility] LABCLIA [id number] [place] [address] [place] Albumin/Creatinine (U) [Mass ratio] <8 Normal <30 [facility] Comment on above: Order Comment: Speci men Type: URINE SPECIMENOrdering Facility: [facility] Address: [address] [place] [address] Result Comment: Adul t Male and Female Nephrotic Criteria: <30 mg/g is considered normal to mildly increased 30-300 mg/g is considered moderately increased >300 mg/g is considered severely increased KDIGO. (2013). KDIGO 2012 Clinical Practice Guideline for the Evaluation and Management of Chronic Kidney Disease. Official Journal of the International Society of Nephrology, 3(1), 1-150. Performed By: #### U ACR ####[facility] LABCLIA [id number] [place] [address] [place] Creatinine (U) [Mass/Vol] 155.2 mg/dL Normal 20.0-300.0 [facility] Comment on above: Order Comment: Speci men Type: URINE SPECIMENOrdering Facility: [facility] Address: [address] [place] [address] Performed By: #### U ACR ####[facility] LABCLIA [id number] [place] [address] [place] CBC W Auto Differential pane l (Bld)on 07-24-2024 Basophils (Bld) [#/Vol] 0.04 10*3/uL [facility] Basophils/100 WBC (Bld) 0.8 % [facility] Differential cell count method Nom (Bld) Auto [facility] Eosinophils (Bld) [#/Vol] 0.15 10*3/uL [facility] Eosinophils/100 WBC (Bld) 3.1 % [facility] Erythrocyte distribution width (RBC) [Ratio] 13.5 % 11.5 - 15.0 % [facility] Hematocrit (Bld) [Volume fraction] 42.7 % 39.0 - 51.0 % [facility] Hemoglobin (Bld) [Mass/Vol] 14.1 g/dL 13.0 - 17.0 g/dL [facility] Immature granulocytes (Bld) [#/Vol] [facility] Immature granulocytes/100 WBC (Bld) 0 % [facility] Interpretation and review of laboratory results Abnormal [facility] Lymphocytes (Bld) [#/Vol] 2.17 10*3/uL [facility] Lymphocytes/100 WBC (Bld) 45.5 % [facility] MCH (RBC) [Entitic mass] 33.3 pg 26.0 - 34.0 pg [facility] MCHC (RBC) [Mass/Vol] 33 g/dL 30.5 - 36.0 g/dL [facility] MCV (RBC) [Entitic vol] 100.9 fL High 80.0 - 100.0 fL [facility] Monocytes (Bld) [#/Vol] 0.56 10*3/uL [facility] Monocytes/100 WBC (Bld) 11.7 % [facility] Neutrophils (Bld) [#/Vol] 1.85 10*3/uL [facility] Neutrophils/100 WBC (Bld) 38.9 % [facility] Nucleated RBC (Bld) [#/Vol] [facility] Nucleated RBC/100 WBC (Bld) [Ratio] 0 % /100 WBC [facility] Platelet mean volume (Bld) [Entitic vol] 9.5 fL 9.0 - 12.7 fL [facility] Platelets (Bld) [#/Vol] 232 10*3/uL [facility] RBC (Bld) [#/Vol] 4.23 10*6/uL 4.20 - 6.0 0 m/uL [facility] WBC (Bld) [#/Vol] 4.77 10*3/uL [facility] Basophils (Bld) [#/Vol] 0.04 10*3/uL Normal <0.11 [facility] Comment on above: Order Comment: Speci men Type: BLOOD SPECIMENOrdering Facility: [facility] Address: [address] [place] [address] Performed By: #### 5 7021-8 ####[facility] LABCLIA [id number] [place] [address] [place] Basophils/100 WBC (Bld) 0.8 % Normal [facility] Comment on above: Order Comment: Speci men Type: BLOOD SPECIMENOrdering Facility: [facility] Address: [address] [place] [address] Performed By: #### 5 7021-8 ####[facility] LABCLIA [id number] [place] [address] [place] Differential cell count method Nom (Bld) Auto Normal [facility] Comment on above: Order Comment: Speci men Type: BLOOD SPECIMENOrdering Facility: [facility] Address: [address] [place] [address] Performed By: #### 5 7021-8 ####[facility] LABIA [id number] [place] [address] [place] Eosinophils (Bld) [#/Vol] 0.15 10*3/uL Normal <0.46 [facility] Comment on above: Order Comment: Speci men Type: BLOOD SPECIMENOrdering Facility: [facility] Address: [address] [place] [address] Performed By: #### 5 7021-8 ####[facility] LABCLIA [id number] [address] [place] [address] [place] Eosinophils/100 WBC (Bld) 3.1 % Normal [facility] Comment on above: Order Comment: Speci men Type: BLOOD SPECIMENOrdering Facility: [facility] Address: [address] [place] [address] Performed By: #### 5 7021-8 ####[facility] LABCLIA [id number] [address], [place] [address] [place] Erythrocyte distribution width (RBC) [Ratio] 13.5 % Normal 11.5-15.0 [facility] Comment on above: Order Comment: Speci men Type: BLOOD SPECIMENOrdering Facility: [facility] Address: [address] [place] [address] Performed By: #### 5 7021-8 ####[facility] LABCLIA [id number] [address], [place] [address] [place] Hematocrit (Bld) [Volume fraction] 42.7 % Normal 39.0-51.0 [facility] Comment on above: Order Comment: Speci men Type: BLOOD SPECIMENOrdering Facility: [facility] Address: [address] [place] [address] Performed By: #### 5 7021-8 ####[facility] LABCLIA [id number] [address], [place] [address] [place] Hemoglobin (Bld) [Mass/Vol] 14.1 g/dL Normal 13.0-17.0 [facility] Comment on above: Order Comment: Speci men Type: BLOOD SPECIMENOrdering Facility: [facility] Address: [address] [place] [address] Performed By: #### 5 7021-8 ####[facility] LABCLIA [id number] [address], [facility] [place] Immature granulocytes (Bld) [#/Vol] 10*3/uL Normal <0.10 [facility] Comment on above: Order Comment: Speci men Type: BLOOD SPECIMENOrdering Facility: [facility] Address: [address] [place] [address] Performed By: #### 5 7021-8 ####[facility] LABCLIA [id number] [place] [id number] [place] Immature granulocytes/100 WBC (Bld) 0.0 % Normal [facility] Comment on above: Order Comment: Speci men Type: BLOOD SPECIMENOrdering Facility: [facility] Address: [address] [place] [address] Performed By: #### 5 7021-8 ####[facility] LABIA [id number] [place] [address] [place] Lymphocytes (Bld) [#/Vol] 2.17 10*3/uL Normal 1.00-4.00 [facility] Comment on above: Order Comment: Speci men Type: BLOOD SPECIMENOrdering Facility: [facility] Address: [address] [place] [address] Performed By: #### 5 7021-8 ####[facility] LABIA [id number] [place] [address] [place] Lymphocytes/100 WBC (Bld) 45.5 % Normal [facility] Comment on above: Order Comment: Speci men Type: BLOOD SPECIMENOrdering Facility: [facility] Address: [address] [place] [address] Performed By: #### 5 7021-8 ####[facility] LABCLIA [id number] [place] [id number] [place] MCH (RBC) [Entitic mass] 33.3 pg Normal 26.0-34.0 [facility] Comment on above: Order Comment: Speci men Type: BLOOD SPECIMENOrdering Facility: [facility] Address: [address] [place] [address] Performed By: #### 5 7021-8 ####[facility] LABCLIA [id number] [place] [address] [place] MCHC (RBC) [Mass/Vol] 33.0 g/dL Normal 30.5-36.0 [facility] Comment on above: Order Comment: Speci men Type: BLOOD SPECIMENOrdering Facility: [facility] Address: [address] [place] [address] Performed By: #### 5 7021-8 ####[facility] LABIA [id number] [place] [address] [place] MCV (RBC) [Entitic vol] 100.9 fL High 80.0-100.0 [facility] Comment on above: Order Comment: Speci men Type: BLOOD SPECIMENOrdering Facility: [facility] Address: [address] [place] [address] Performed By: #### 5 7021-8 ####[facility] LABIA [id number] [place] [address] [place] Monocytes (Bld) [#/Vol] 0.56 10*3/uL Normal <0.87 [facility] Comment on above: Order Comment: Speci men Type: BLOOD SPECIMENOrdering Facility: [facility] Address: [address] [place] [address] Performed By: #### 5 7021-8 ####[facility] LABIA [id number] [place] [address] [place] Monocytes/100 WBC (Bld) 11.7 % Normal [facility] Comment on above: Order Comment: Speci men Type: BLOOD SPECIMENOrdering Facility: [facility] Address: [address] [place] [address] Performed By: #### 5 7021-8 ####[facility] LABIA [id number] [place] [address] [place] Neutrophils (Bld) [#/Vol] 1.85 10*3/uL Normal 1.45-7.50 [facility] Comment on above: Order Comment: Speci men Type: BLOOD SPECIMENOrdering Facility: [facility] Address: [address] [place] [address] Performed By: #### 5 7021-8 ####[facility] LABCLIA [id number] [place] [address] [place] Neutrophils/100 WBC (Bld) 38.9 % Normal [facility] Comment on above: Order Comment: Speci men Type: BLOOD SPECIMENOrdering Facility: [facility] Address: [address] [place] [address] Performed By: #### 5 7021-8 ####[facility] LABCLIA [id number] [place] [address] [place] Nucleated RBC (Bld) [#/Vol] 10*3/uL Normal <0.01 [facility] Comment on above: Order Comment: Speci men Type: BLOOD SPECIMENOrdering Facility: [facility] Address: [address] [place] [address] Performed By: #### 5 7021-8 ####[facility] LABIA [id number] [place] [address] [place] Nucleated RBC/100 WBC (Bld) [Ratio] 0.0 /100 WBC Normal [facility] Comment on above: Order Comment: Speci men Type: BLOOD SPECIMENOrdering Facility: [facility] Address: [address] [place] [address] Performed By: #### 5 7021-8 ####[facility] LABCLIA [id number] [place] [address] [place] Platelet mean volume (Bld) [Entitic vol] 9.5 fL Normal 9.0-12.7 [facility] Comment on above: Order Comment: Speci men Type: BLOOD SPECIMENOrdering Facility: [facility] Address: [address] [place] [address] Performed By: #### 5 7021-8 ####[facility] LABIA [id number] [place] [address] [place] Platelets (Bld) [#/Vol] 232 10*3/uL Normal 150-400 [facility] Comment on above: Order Comment: Speci men Type: BLOOD SPECIMENOrdering Facility: [facility] Address: [address] [place] [address] Performed By: #### 5 7021-8 ####[facility] LABIA [id number] [place] [address] [place] RBC (Bld) [#/Vol] 4.23 10*6/uL Normal 4.20-6.00 [facility] Comment on above: Order Comment: Speci men Type: BLOOD SPECIMENOrdering Facility: [facility] Address: [address] [place] [address] Performed By: #### 5 7021-8 ####[facility] [id number] [place] [address] [place] WBC (Bld) [#/Vol] 4.77 10*3/uL Normal 3.70-11.00 [facility] Comment on above: Order Comment: Speci men Type: BLOOD SPECIMENOrdering Facility: [facility] Address: [address] [place] [address] Performed By: #### 5 7021-8 ####[facility] LABIA [id number] [place] [id number] [facility] [place] CNOVon 07-24-2024 CNOV Office Visit (FAMPWS ) KATHARINE CANO ([id number]) 1945 M Date Time Provider Department 07/24/24 8:40 AM CÉSAR MERRILL During your visit today, we recorded the following information about you: Pulse Blood pressure Weight Height 60/minute 124/54 103 kg 1.651 m César Merrill MD 07/24/2024 8:53 AM Addendum Please bring in copies of your power of tax associate attorney for health care and living will. Please [...] and med refills. Seeing Dr. Castro with [facility] for his hip pains. Patient had run [...] cramps ate (more content not included)... Normal [facility] Cobalamin (Vitamin B12) [Mas s/Vol]on 07-24-2024 Interpretation and review of laboratory results Normal [facility] Comprehensive metabolic 2000 panelon 07-24-2024 Albumin [Mass/Vol] 4.1 g/dL 3.9 - 4.9 g/dL [facility] ALP [Catalytic activity/Vol] 84 U/L 38 - 113 U/L [facility] ALT [Catalytic activity/Vol] 12 U/L 10 - 54 U/L [facility] Anion gap [Moles/Vol] 12 mmol/L 8 - 15 mmol/L [facility] AST [Catalytic activity/Vol] 20 U/L 14 - 40 U/L [facility] Bilirubin [Mass/Vol] 0.4 mg/dL 0.2 - 1 .3 mg/dL [facility] Calcium [Mass/Vol] 9.7 mg/dL 8.5 - 10. 2 mg/dL [facility] Chloride [Moles/Vol] 103 mmol/L 98 - 10 7 mmol/L [facility] CO2 [Moles/Vol] 24 mmol/L 22 - 30 mmol/L [facility] Creatinine [Mass/Vol] 1.36 mg/dL High 0.73 - 1.22 mg/dL [facility] GFR/1.73 sq M.predicted among non-blacks MDRD (S/P/Bld) [Vol rate/Area] 53 mL/min/{1.73_m2} Low - PINF [facility] Comment on above: Estimated Glomerular Filtration [...] 154 mg/dL High 74 - 99 mg/dL [facility] Comment on above: The [place] Diabete s Association (ADA) provides guidance for [...] Standards of Medical Care in Diabetes 2016, [place] Diabetes Association. Diabetes Care. 2016.39(Suppl 1). Potassium [Moles/Vol] 4.4 mmol/L 3.7 - 5.1 mmol/L [facility] Protein [Mass/Vol] 7.9 g/dL 6.3 - 8.0 g/dL [facility] Sodium [Moles/Vol] 139 mmol/L 136 - 144 mmol/L [facility] Urea nitrogen [Mass/Vol] 21 mg/dL 9 - 24 mg/dL [facility] Albumin [Mass/Vol] 4.1 g/dL Normal 3.9-4.9 [facility] Comment on above: Order Comment: Speci men Type: BLOOD SPECIMENOrdering Facility: [facility] Address: [address] [place] [address] Performed By: #### 2 4323-8, BERNADINE, 2132-9 ####[facility] LABCLIA [id number] [place] [address] [place] ALP [Catalytic activity/Vol] 84 U/L Normal 38-113 [facility] Comment on above: Order Comment: Speci men Type: BLOOD SPECIMENOrdering Facility: [facility] Address: [address] [place] [address] Performed By: #### 2 4323-8, LIPNF, 2131-12 ####[facility] LABCLIA [id number] [place] [id number] [place] ALT [Catalytic activity/Vol] 12 U/L Normal 10-54 [facility] Comment on above: Order Comment: Speci men Type: BLOOD SPECIMENOrdering Facility: [facility] Address: [address] [place] [address] Performed By: #### 2 4323-8, LIPNF, 2131-12 ####[facility] LABCLIA [id number] [place] [address] [place] Anion gap [Moles/Vol] 12 mmol/L Normal 8-15 [facility] Comment on above: Order Comment: Speci men Type: BLOOD SPECIMENOrdering Facility: [facility] Address: [address] [place] [address] Performed By: #### 2 4323-8, LIPNF, 2131-12 ####[facility] LABCLIA [id number] [place] [address] [place] AST [Catalytic activity/Vol] 20 U/L Normal 14-40 [facility] Comment on above: Order Comment: Speci men Type: BLOOD SPECIMENOrdering Facility: [facility] Address: [address] [place] [address] Performed By: #### 2 4323-8, LIPNF, 2131-12 ####[facility] LABCLIA [id number] [place] [id number] [place] Bilirubin [Mass/Vol] 0.4 mg/dL Normal 0.2-1.3 [facility] Comment on above: Order Comment: Speci men Type: BLOOD SPECIMENOrdering Facility: [facility] Address: [address] [place] [address] Performed By: #### 2 432-8, LIPNF, 2131-12 ####[facility] LABCLIA [id number] [address] [address] [place] Calcium [Mass/Vol] 9.7 mg/dL Normal 8.5-10.2 [facility] Comment on above: Order Comment: Speci men Type: BLOOD SPECIMENOrdering Facility: [facility] Address: [address] [place] [address] Performed By: #### 2 432-8, LIPNF, 2131-12 ####[facility] LABCLIA [id number] [place] [address] [place] Chloride [Moles/Vol] 103 mmol/L Normal 98-107 [facility] Comment on above: Order Comment: Speci men Type: BLOOD SPECIMENOrdering Facility: [facility] Address: [address] [place] [address] Performed By: #### 2 4328, LIPNF, 2131-12 ####[facility] LABCLIA [id number] [place] [address] [place] CO2 [Moles/Vol] 24 mmol/L Normal 22-30 [facility] Comment on above: Order Comment: Speci men Type: BLOOD SPECIMENOrdering Facility: [facility] Address: [address] [place] [address] Performed By: #### 2 432-8, LIPNF, 2131-12 ####[facility] LABCLIA [id number] [address] [address] [place] Creatinine [Mass/Vol] 1.36 mg/dL High 0.73-1.22 [facility] Comment on above: Order Comment: Speci men Type: BLOOD SPECIMENOrdering Facility: [facility] Address: [address] [place] [address] Performed By: #### 2 432-8, LIPNF, 2131-12 ####[facility] LABCLIA [id number] [place] [address] [place] Creatinine and Glomerular filtration rate.predicted panel (S/P/Bld) 53 mL/min/1.73m??? Low >=60 [facility] Comment on above: Order Comment: Lucho kidd Type: BLOOD SPECIMENOrdering Facility: [facility] Address: [address] [place] [address] Result Comment: Laurie mated Glomerular Filtration Rate [...] actual GFR. Performed By: #### 2 4323-8, LIPNF, 2131-12 ####[facility] [id number] [place] [address] [place] Glucose [Mass/Vol] 154 mg/dL High 74-99 [facility] Comment on above: Order Comment: Lucho kidd Type: BLOOD SPECIMENOrdering Facility: [facility] Address: [address] [place] [address] Result Comment: The [place] Diabetes Association (ADA) provides guidance for cutoff [...] Standards of Medical Care in Diabetes 2016, [place] Diabetes Association. Diabetes Care. 2016.39(Suppl 1). Performed By: #### 2 4323-8, LIPNF, 2131-12 ####[facility] [id number] [place] [address] [place] Potassium [Moles/Vol] 4.4 mmol/L Normal 3.7-5.1 [facility] Comment on above: Order Comment: Speci men Type: BLOOD SPECIMENOrdering Facility: [facility] Address: [address] [place] [address] Performed By: #### 2 4323-8, LIPNF, 2131-12 ####[facility] LABCLIA [id number] [place] [address] [place] Protein [Mass/Vol] 7.9 g/dL Normal 6.3-8.0 [facility] Comment on above: Order Comment: Speci men Type: BLOOD SPECIMENOrdering Facility: [facility] Address: [address] [place] [address] Performed By: #### 2 4328, LIPNF, 2131-12 ####[facility] LABCLIA [id number] [place] [address] [place] Sodium [Moles/Vol] 139 mmol/L Normal 136-144 [facility] Comment on above: Order Comment: Speci men Type: BLOOD SPECIMENOrdering Facility: [facility] Address: [address] [place] [address] Performed By: #### 2 432-8, LIPNF, 2131-12 ####[facility] LABCLIA [id number] [place] [address] [place] Urea nitrogen [Mass/Vol] 21 mg/dL Normal 9-24 [facility] Comment on above: Order Comment: Speci men Type: BLOOD SPECIMENOrdering Facility: [facility] Address: [address] [place] [address] Performed By: #### 2 432-8, LIPNF, 2131-12 ####[facility] LABCLIA [id number] [address] [address] [place] HbA1c (Bld)on 07-24-2024 Average glucose Estimated from glycated hemoglobin (Bld) [Mass/Vol] 171 mg/dL [facility] Comment on above: eAG: (Estimated aver age glucose) is a calculated value from HgbA1c and is sales representative consultant of the average blood glucose level in the last 2-3 month period. HbA1c (Bld) [Mass fraction] 7.6 % High 4.3 - 5.6 % [facility] Comment on above: [place] Diabetes As sociation guidelines indicate that patients with HgbA1c in the range 5.7-6.4% are at increased risk for development of diabetes, and intervention by lifestyle modification may be beneficial. HgbA1c greater or equal to 6.5% is considered diagnostic of diabetes. Interpretation and review of laboratory results Abnormal [facility] Average glucose Estimated from glycated hemoglobin (Bld) [Mass/Vol] 171 mg/dL Normal [facility] Comment on above: Order Comment: Lucho kidd Type: BLOOD SPECIMENOrdering Facility: [facility] Address: [address] [place] [address] Result Comment: eAG: (Estimated average glucose) is a calculated value from HgbA1c and is sales representative consultant of the average blood glucose level in the last 2-3 month period. Performed By: #### 5 5454-3 ####[facility] LABCLIA [id number] [address] STATES OF [facility] HbA1c (Bld) [Mass fraction] 7.6 % High 4.3-5.6 [facility] Comment on above: Order Comment: Lucho kidd Type: BLOOD SPECIMENOrdering Facility: [facility] Address: [address] [place] [address] Result Comment: [place] Diabetes Association guidelines indicate that patients with HgbA1c in the range 5.7-6.4% are at increased risk for development of diabetes, and intervention by lifestyle modification may be beneficial. HgbA1c greater or equal to 6.5% is considered diagnostic of diabetes. Performed By: #### 5 5454-3 ####[facility] LABCLIA [id number] [address] [address] [place] LIPID PANEL, NONFASTINGon Cholesterol [Mass/Vol] 213 mg/dL High NINF - 200 mg/dL [facility] Comment on above: <200 mg/dL, Desirabl e 200-239 mg/dL, Borderline high >239 mg/dL, High HDL Cholesterol, Nonfasting 44 mg/dL 39 - PINF mg/dL [facility] Comment on above: 40-59 mg/dL, Accepta ble >59 mg/dL, High: Negative risk factor for coronary heart disease <40 mg/dL, Low: Positive risk factor for coronary heart disease LDL Cholesterol, Nonfasting 133 mg/dL High NINF - 100 mg/dL [facility] Comment on above: <100 mg/dL, Optimal 100-129 mg/dL, Near optimal/above optimal 130-159 mg/dL, Borderline high 160-189 mg/dL, High >189 mg/dL, Very high Secondary prevention optimal LDL Cholesterol levels are recommended to be < 70 mg/dL LDL/HDL Ratio, Nonfasting 3.02 mg/dL High NINF - 2.54 mg/dL [facility] Comment on above: Reference: 1. National Cholesterol Education Program ATP III Guideline At-A-Glance Quick Desk Reference: National Heart, Lung, and Blood [place]. National Institutes of Health. 2001: NIH Publication No. 01-3305. 2. An International Atherosclerosis Society position paper: global recommendations for the management of dyslipidemia: executive summary, Atherosclerosis. 2014: 232(2):410-413. Non HDL Cholesterol, Nonfasting 169 mg/dL High NINF - 130 mg/dL [facility] Comment on above: <130 mg/dL, Optimal 130-159 mg/dL, Near optimal/above optimal 160-189 mg/dL, Borderline high 190-219 mg/dL, High >219 mg/dL, Very high Secondary prevention optimal non HDL Cholesterol levels are recommended to be <100 mg/dL Total Chol/HDL Ratio, Nonfasting 4.84 mg/dL NINF - 5.10 mg/dL [facility] Triglycerides, Nonfasting 182 mg/dL High NINF - 150 mg/dL [facility] Comment on above: <150 mg/dL, Normal 150-199 mg/dL, Borderline high 200-499 mg/dL, High >499 mg/dL, Very high VLDL Cholesterol, Nonfasting 36 mg/dL High NINF - 30 mg/dL [facility] Cholesterol [Mass/Vol] 213 mg/dL High <200 Cl [facility] Comment on above: Order Comment: Speci men Type: BLOOD SPECIMENOrdering Facility: [facility] Address: [address] [place] [address] Result Comment: <200 mg/dL, Desirable 200-239 mg/dL, Borderline high >239 mg/dL, High Performed By: #### 2 4323-8, LIPNF, 2131-12 ####[facility] LABCLIA [id number] [address] [place] [address] [place] HDL CHOLESTEROL, NF 44 mg/dL Normal >39 [facility] Comment on above: Order Comment: Speci men Type: BLOOD SPECIMENOrdering Facility: [facility] Address: [address] [place] [address] Result Comment: 40-5 9 mg/dL, Acceptable >59 mg/dL, High: Negative risk factor for coronary heart disease <40 mg/dL, Low: Positive risk factor for coronary heart disease Performed By: #### 2 4323-8, LIPNF, 2131-12 ####[facility] LABCLIA [id number] [address], [place] [address] [place] LDL CHOLESTEROL, NF 133 mg/dL High <100 [facility] Comment on above: Order Comment: Speci men Type: BLOOD SPECIMENOrdering Facility: [facility] Address: [address] [place] [address] Result Comment: <100 mg/dL, Optimal 100-129 mg/dL, Near optimal/above optimal 130-159 mg/dL, Borderline high 160-189 mg/dL, High >189 mg/dL, Very high Secondary prevention optimal LDL Cholesterol levels are recommended to be < 70 mg/dL Performed By: #### 2 4323-8, LIPNF, 2131-12 ####[facility] LABCLIA [id number] [address] [place] [address] [place] LDL/HDL RATIO, NF 3.02 mg/dL High <2.54 [facility] Comment on above: Order Comment: Speci men Type: BLOOD SPECIMENOrdering Facility: [facility] Address: [address] [place] [address] Result Comment: Conchita bateman: 1. National Cholesterol Education Program ATP III Guideline At-A-Glance Quick Desk Reference: National Heart, Lung, and Blood [place]. National Institutes of Health. 2001: NIH Publication No. 01-3305. 2. An International Atherosclerosis Society position paper: global recommendations for the management of dyslipidemia: executive summary, Atherosclerosis. 2014: 232(2):410-413. Performed By: #### 2 4323-8, LIPNF, 2131-12 ####[facility] LABCLIA [id number] [place] [address] [place] NON HDL CHOL, NF 169 mg/dL High <130 [facility] Comment on above: Order Comment: Speci men Type: BLOOD SPECIMENOrdering Facility: [facility] Address: [address] [place] [address] Result Comment: <130 mg/dL, Optimal 130-159 mg/dL, Near optimal/above optimal 160-189 mg/dL, Borderline high 190-219 mg/dL, High >219 mg/dL, Very high Secondary prevention optimal non HDL Cholesterol levels are recommended to be <100 mg/dL Performed By: #### 2 4323-8, LIPNF, 2131-12 ####[facility] LABCLIA [id number] [place] [address] [place] T CHOL/HDL RATIO NF 4.84 mg/dL Normal <5.10 [facility] Comment on above: Order Comment: Speci men Type: BLOOD SPECIMENOrdering Facility: [facility] Address: [address] [place] [address] Performed By: #### 2 4323-8, LIPNF, 2131-12 ####[facility] LABCLIA [id number] [place] [address] [place] TRIGLYCERIDES, NF 182 mg/dL High <150 [facility] Comment on above: Order Comment: Speci men Type: BLOOD SPECIMENOrdering Facility: [facility] Address: [address] [place] [address] Result Comment: <150 mg/dL, Normal 150-199 mg/dL, Borderline high 200-499 mg/dL, High >499 mg/dL, Very high Performed By: #### 2 4323-8, LIPNF, 2131-12 ####[facility] LABCLIA [id number] [place] [address] [place] VLDL CHOLESTEROL, NF 36 mg/dL High <30 [facility] Comment on above: Order Comment: Speci men Type: BLOOD SPECIMENOrdering Facility: [facility] Address: [address] [place] [address] Performed By: #### 2 4323-8, LIPTHOMAS, 2131-12 ####[facility] LABCLIA [id number] [address] [place] No Panel Informationon 07-24 Interpretation and review of laboratory results Abnormal [facility] Urinalysis complete panel (U )on 07-24-2024 Bacteria LM.HPF (Urine sed) [#/Area] Negative Negative /HPF [facility] Bilirubin Ql (U) Negative Negative [facility] Clarity (Unsp spec) Clear Clear [facility] Color (U) Yellow Yellow [facility] Epithelial cells LM.HPF (Urine sed) [#/Area] None Seen /HPF [facility] Glucose Test strip (U) [Mass/Vol] Negative Negative [facility] Hemoglobin Ql (U) Negative Negative [facility] Hyaline casts (Urine sed) [#/Area] 4-10 /LPF Abnormal 0 /LPF [facility] Interpretation and review of laboratory results Abnormal [facility] Ketones Ql (U) Negative Negative [facility] Leukocyte esterase Test strip Ql (U) Negative Negative [facility] Nitrite Ql (U) Negative Negative [facility] pH (U) 5.5 [pH] NINF - 8.5 [facility] Protein (U) [Mass/Vol] Negative Negative [facility] RBC LM.HPF (Urine sed) [#/Area] 0-2 /HPF 0-2 /HPF [facility] Specific gravity (U) [Rel density] 1.018 1.005 - 1.030 [facility] Urobilinogen Ql (U) 0.2 EU/dL 0.2-1.0 EU/dL [facility] WBC LM.HPF (Urine sed) [#/Area] 0-5 /HPF 0-5 /HPF [facility] This test was developed and its performance characteristics determined by [facility]'s [facility] Pathology and Laboratory Medicine [place] ([facility] It has not been cleared or approved by the FDA. [facility] is regulated under CLIA as qualified to perform high-complexity testing. This test is used for clinical purposes. It should not be regarded as investigational or for research. [facility] Bacteria LM.HPF (Urine sed) [#/Area] Negative Normal Negative [facility] Comment on above: Order Comment: Speci men Type: URINE SPECIMENOrdering Facility: [facility] Address: [address] [place] [address] Performed By: #### 2 4356-8 ####[facility] LABCLIA [id number] [place] [address] [place] Bilirubin Ql (U) Negative Normal Negative [facility] Comment on above: Order Comment: Speci men Type: URINE SPECIMENOrdering Facility: [facility] Address: [address] [place] [address] Performed By: #### 2 4356-8 ####[facility] LABCLIA [id number] [place] [address] [place] Clarity (Unsp spec) Clear Normal Clear [facility] Comment on above: Order Comment: Speci men Type: URINE SPECIMENOrdering Facility: [facility] Address: [address] [place] [address] Performed By: #### 2 4356-8 ####[facility] LABCLIA [id number] [place] [address] [place] Color (U) Yellow Normal Yellow [facility] Comment on above: Order Comment: Speci men Type: URINE SPECIMENOrdering Facility: [facility] Address: [address] [place] [address] Performed By: #### 2 4356-8 ####[facility] LABCLIA [id number] [address] [place] Epithelial cells LM.HPF (Urine sed) [#/Area] None Seen Normal [facility] Comment on above: Order Comment: Speci men Type: URINE SPECIMENOrdering Facility: [facility] Address: [address] [place] [address] Performed By: #### 2 4356-8 ####[facility] LABCLIA [id number] [address] STATES OF [place]LEKSANDRA Glucose Test strip (U) [Mass/Vol] Negative Normal Negative [facility] Comment on above: Order Comment: Speci men Type: URINE SPECIMENOrdering Facility: [facility] Address: [address] [place] [address] Performed By: #### 2 4356-8 ####[facility] LABCLIA [id number] [place] [address] [place] Hemoglobin Ql (U) Negative Normal Negative [facility] Comment on above: Order Comment: Speci men Type: URINE SPECIMENOrdering Facility: [facility] Address: [address] [place] [address] Performed By: #### 2 4356-8 ####[facility] LABCLIA [id number] [place] [address] [place] Hyaline casts (Urine sed) [#/Area] 4-10 /LPF Abnormal 0 /LPF [facility] Comment on above: Order Comment: Speci men Type: URINE SPECIMENOrdering Facility: [facility] Address: [address] [place] [address] Performed By: #### 2 4356-8 ####[facility] LABCLIA [id number] [place] [address] [place] Ketones Ql (U) Negative Normal Negative [facility] Comment on above: Order Comment: Speci men Type: URINE SPECIMENOrdering Facility: [facility] Address: [address] [place] [address] Performed By: #### 2 4356-8 ####[facility] LABCLIA [id number] [address] [place] [address] [place] Leukocyte esterase Test strip Ql (U) Negative Normal Negative [facility] Comment on above: Order Comment: Speci men Type: URINE SPECIMENOrdering Facility: [facility] Address: [address] [place] [address] Performed By: #### 2 4356-8 ####[facility] LABCLIA [id number] [address], [place] [address] [place] Nitrite Ql (U) Negative Normal Negative [facility] Comment on above: Order Comment: Speci men Type: URINE SPECIMENOrdering Facility: [facility] Address: [address] [place] [address] Performed By: #### 2 4356-8 ####[facility] LABCLIA [id number] [address], [place] [address] [place] pH (U) 5.5 [pH] Normal <8.5 [facility] Comment on above: Order Comment: Speci men Type: URINE SPECIMENOrdering Facility: [facility] Address: [address] [place] [address] Performed By: #### 2 4356-8 ####[facility] LABCLIA [id number] [facility]ALK [address], [facility] [place] Protein (U) [Mass/Vol] Negative Normal Negative [facility] Comment on above: Order Comment: Speci men Type: URINE SPECIMENOrdering Facility: [facility] Address: [address] [place], [place] [address] Performed By: #### 2 4356-8 ####[facility] LABCLIA [id number] [address] [place] RBC LM.HPF (Urine sed) [#/Area] 0-2 /HPF Normal 0-2 /HPF [facility] Comment on above: Order Comment: Speci men Type: URINE SPECIMENOrdering Facility: [facility] Address: [address] [place] [address] Performed By: #### 2 4356-8 ####[facility] LABIA [id number] [place] [address] [place] Specific gravity (U) [Rel density] 1.018 Normal 1.005-1.030 [facility] Comment on above: Order Comment: Speci men Type: URINE SPECIMENOrdering Facility: [facility] Address: [address] [place] [address] Performed By: #### 2 4356-8 ####[facility] LABIA [id number] [address] [place] Urobilinogen Ql (U) 0.2 EU/dL Normal 0.2-1.0 EU/dL [facility] Comment on above: Order Comment: Speci men Type: URINE SPECIMENOrdering Facility: [facility] Address: [address] [place] [address] Performed By: #### 2 4356-8 ####[facility]PITALIA [id number] [place] [address] [place] WBC LM.HPF (Urine sed) [#/Area] 0-5 /HPF Normal 0-5 /HPF [facility] Comment on above: Order Comment: Speci men Type: URINE SPECIMENOrdering Facility: [facility] Address: [address] [place] [address] Performed By: #### 2 4356-8 ####[facility] LABIA [id number] [place] [address] [place] VITAMIN B12on 07-24-2024 Cobalamin (Vitamin B12) [Mass/Vol] 529 pg/mL 232 - 1245 pg/mL [facility] B12 SerPl-mCncon 07-24- 025 Cobalamin (Vitamin B12) [Mass/Vol] 529 pg/mL Normal 232-1245 [facility] Comment on above: Order Comment: Speci men Type: BLOOD SPECIMENOrdering Facility: [facility] Address: [address] [place] [address] [place] [address] Performed By: #### 2 4323-8, BERNADINE, 2132-9 ####[facility] LABCLIA [id number] [facility] CLINICKamar TIFFINCALVIN [address] [place] CNPLuisa 07-18-2024 CNPN Telephone (FAMPWS) KATHARINE CANO ([id number]) 1945 M Date Time Provider Department 07/18/24 CÉSAR MERRILL During your visit today, we recorded the following information about you: Zohreh Hughes, RN 07/18/2024 12:19 PM Signed Love from [facility] pharmacy in [place] calling in for refills for pt. She states pt called in for refill on his Baclofen and Gabapentin. Per [facility], last prescriptions for both of these were [...] Simvastatin correctly. Atenolol and Simvastatin prescribed by [facility]. Pt is set up for a physical on 08/12 with Katarzyna Munson. Pt is Yazdanism and needs financially cleared for appt. Attempted [...] Encounter Status:Closed by CÉSAR MERRILL on 07/18/24 Normal [facility] Cardiology Visit Reporton Cardiology Visit Report [facility] [address] [place] [address] OFFICE VISIT Date of Service: 07/10/24 MR#: [id number] Acct: [id number] Name: JEROMEKATHARINE Rep #: [id number] : 1945 Provider: Dr. London ghosh MD Age/Sex: 79/M Location[place] [facility] [place]: Signed HPI HPI History of Present Illness Details: Patient is a very pleasant 79-year-old Yazdanism white male that comes in today for [...] room air Intake Visit Reasons: 9 M [employer] Agent Required: No Accompanied by: Is patient in pain?: No Allergies rosuvastatin (From Crestor) Allergy (Intermediate, Verified 07/10/24 09:30) Rash Medications [...] artery ( 08/01/97) Atherosclerotic heart disease of [place] coronary artery without angina pectoris Diabetes mellitus [...] (more content not included)... [facility] Office Visit (UCWSTR ) KATHARINE CANO ([id number]) 1945 M Date Time Provider Department 06/10/24 1:00 PM DEYSI [facility] During your visit today, we recorded the following information about you: Temperature Pulse Respiration Blood pressure 98.7 degrees 92/minute 18/minute 142/72 Weight 105.1 kg Deysi Cain, BRUSH FINISHER.RUFFLER 06/10/2024 1:45 PM Signed CC: Patient presents [...] Brother Can (more content not included)... Normal [facility] 02-15-2024 [facility] KATHARINE CANO ([id number]) 1945 M Date Time Provider Department 02/15/24 [facility] MERRILL [facility] During your visit today, we recorded the [...] Encounter Status:Closed by DEMARCUS HIGGINBOTHAM on 02/15/24 [facility] CNOVon 02-14-2024 CNOV Office Visit (FAMPWS ) KATHARINE CANO ([id number]) 1945 M Date Time Provider Department 02/14/24 [...] pain an (more content not included)... Normal [facility] Cobalamin (Vitamin B12) [Mas s/Vol]on 02-14-2024 Interpretation and review of laboratory results Normal [facility] HbA1c (Bld)on 02-14-2024 Average glucose Estimated from glycated hemoglobin (Bld) [Mass/Vol] 140 mg/dL [facility] Comment on above: eAG: (Estimated aver age glucose) is a calculated value from HgbA1c and is sales representative consultant of the average blood glucose level in the last 2-3 month period. HbA1c (Bld) [Mass fraction] 6.5 % High 4.3 - 5.6 % [facility] Comment on above: [place] Diabetes As sociation guidelines indicate that patients with HgbA1c in the range 5.7-6.4% are at increased risk for development of diabetes, and intervention by lifestyle modification may be beneficial. HgbA1c greater or equal to 6.5% is considered diagnostic of diabetes. Interpretation and review of laboratory results Abnormal [facility] Average glucose Estimated from glycated hemoglobin (Bld) [Mass/Vol] 140 mg/dL Normal [facility] Comment on above: Order Comment: Lucho kidd Type: BLOOD SPECIMENOrdering Facility: [facility] Address: [address] [place] [address] Result Comment: eAG: (Estimated average glucose) is a calculated value from HgbA1c and is sales representative consultant of the average blood glucose level in the last 2-3 month period. Performed By: #### 5 5454-3 ####[facility] LABCLIA [id number] [facility] [id number] [place] [address] [place] HbA1c (Bld) [Mass fraction] 6.5 % High 4.3-5.6 [facility] Comment on above: Order Comment: Lucho kidd Type: BLOOD SPECIMENOrdering Facility: [facility] Address: [address] [place] [address] Result Comment: [place] Diabetes Association guidelines indicate that patients with HgbA1c in the range 5.7-6.4% are at increased risk for development of diabetes, and intervention by lifestyle modification may be beneficial. HgbA1c greater or equal to 6.5% is considered diagnostic of diabetes. Performed By: #### 5 5454-3 ####[facility] LABCLIA [id number] [place] [address] [place] VITAMIN B12on 02-14-2024 Cobalamin (Vitamin B12) [Mass/Vol] 480 pg/mL 232 - 1245 pg/mL [facility] Vit B12 SerPl-mCncon 024 Cobalamin (Vitamin B12) [Mass/Vol] 480 pg/mL Normal 232-1245 [facility] Comment on above: Order Comment: Speci men Type: BLOOD SPECIMENOrdering Facility: [facility] Address: [address] [place] [address] Performed By: #### 2 132-9 ####[facility] LABCLIA [id number] [address] OF [facility] CNPNon 08-16-2023 [facility] KATHARINE CANO ( ) 1945 M Date Time Provider Department 08/16/23 CÉSAR MERRILL [facility] During your visit today, we [...] review patient's results and provider's recommendations. 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] Order(s):VITAMIN B12 [SQB12] Order #: [id number] FUTURE COMPLETE BLOOD COUNT AND DIFFERENTIAL [SQCBCDIF] Order #: [id number] FUTURE Cyanocobalamin 1,000 mcg TbERTake 1 tablet [...] Status:Closed by JEANNETTE OLIVEIRA on 08/16/23 Normal [facility] ALBUMIN/CREATININE RATIO, HERBERT LEPEjana 08-08-2023 Albumin DL <= 20 mg/L (U) [Mass/Vol] [facility] Albumin/Creatinine (U) [Mass ratio] <30 mg/g [facility] Creatinine (U) [Mass/Vol] 92.5 mg/dL 20.0 - 300.0 mg/dL [facility] CBC W Auto Differential pane l (Bld)on 08-08-2023 Basophils (Bld) [#/Vol] 0.04 10*3/uL <0.11 k/uL [facility] Basophils/100 WBC (Bld) 0.8 % [facility] Differential cell count method Nom (Bld) Auto [facility] Eosinophils (Bld) [#/Vol] 0.14 10*3/uL <0.46 k/uL [facility] Eosinophils/100 WBC (Bld) 2.9 % [facility] Erythrocyte distribution width (RBC) [Ratio] 14.6 % 11.5 - 15.0 % [facility] Hematocrit (Bld) [Volume fraction] 39.3 % 39.0 - 51.0 % [facility] Hemoglobin (Bld) [Mass/Vol] 12.7 g/dL Low 13.0 - 17.0 g/dL [facility] Immature granulocytes (Bld) [#/Vol] <0.10 k/uL [facility] Immature granulocytes/100 WBC (Bld) 0.2 % [facility] Lymphocytes (Bld) [#/Vol] 1.94 10*3/uL 1.00 - 4.00 k/uL [facility] Lymphocytes/100 WBC (Bld) 40.8 % [facility] MCH (RBC) [Entitic mass] 32.5 pg 26.0 - 34.0 pg [facility] MCHC (RBC) [Mass/Vol] 32.3 g/dL 30.5 - 36.0 g/dL [facility] MCV (RBC) [Entitic vol] 100.5 fL High 80.0 - 100.0 fL [facility] Monocytes (Bld) [#/Vol] 0.59 10*3/uL <0.87 k/uL [facility] Monocytes/100 WBC (Bld) 12.4 % [facility] Neutrophils (Bld) [#/Vol] 2.03 10*3/uL 1.45 - 7.50 k/uL [facility] Neutrophils/100 WBC (Bld) 42.9 % [facility] Nucleated RBC (Bld) [#/Vol] <0.01 k/uL [facility] Nucleated RBC/100 WBC (Bld) [Ratio] 0.0 /100 WBC [facility] Platelet mean volume (Bld) [Entitic vol] 9.9 fL 9.0 - 12.7 fL [facility] Platelets (Bld) [#/Vol] 179 10*3/uL 150 - 400 k/uL [facility] RBC (Bld) [#/Vol] 3.91 10*6/uL Low 4.20 - 6.0 0 m/uL [facility] WBC (Bld) [#/Vol] 4.75 10*3/uL 3.70 - 11. 00 k/uL [facility] Comprehensive metabolic 2000 panelon 08-08-2023 Albumin [Mass/Vol] 4.1 g/dL 3.9 - 4.9 g/dL [facility] ALP [Catalytic activity/Vol] 71 U/L 38 - 113 U/L [facility] ALT [Catalytic activity/Vol] 12 U/L 10 - 54 U/L [facility] Anion gap [Moles/Vol] 12 mmol/L 9 - 18 mmol/L [facility] AST [Catalytic activity/Vol] 20 U/L 14 - 40 U/L [facility] Bilirubin [Mass/Vol] 0.4 mg/dL 0.2 - 1 .3 mg/dL [facility] Calcium [Mass/Vol] 9.8 mg/dL 8.5 - 10. 2 mg/dL [facility] Chloride [Moles/Vol] 105 mmol/L 97 - 10 5 mmol/L [facility] CO2 [Moles/Vol] 25 mmol/L 22 - 30 mmol/L [facility] Creatinine [Mass/Vol] 1.17 mg/dL 0.73 - 1.22 mg/dL [facility] Estimated Glomerular Filtration Rate 64 mL/min/1.73m >=60 mL/min/1.73m [facility] Glucose [Mass/Vol] 108 mg/dL High 74 - 99 mg/dL [facility] Potassium [Moles/Vol] 4.2 mmol/L 3.7 - 5.1 mmol/L [facility] Protein [Mass/Vol] 7.3 g/dL 6.3 - 8.0 g/dL [facility] Sodium [Moles/Vol] 142 mmol/L 136 - 144 mmol/L [facility] Urea nitrogen [Mass/Vol] 17 mg/dL 9 - 24 mg/dL [facility] HbA1c (Bld)on 08-08-2023 Average glucose Estimated from glycated hemoglobin (Bld) [Mass/Vol] 137 mg/dL [facility] HbA1c (Bld) [Mass fraction] 6.4 % High 4.3 - 5.6 % [facility] LIPID PANEL, NONFASTINGon Cholesterol [Mass/Vol] 133 mg/dL <200 mg/dL [facility] HDL Cholesterol, Nonfasting 41 mg/dL >39 mg/dL [facility] LDL Cholesterol, Nonfasting 64 mg/dL <100 mg/dL [facility] LDL/HDL Ratio, Nonfasting 1.56 mg/dL <2.54 mg/dL [facility] Non HDL Cholesterol, Nonfasting 92 mg/dL <130 mg/dL [facility] Total Chol/HDL Ratio, Nonfasting 3.24 mg/dL <5.10 mg/dL [facility] Triglycerides, Nonfasting 142 mg/dL <150 mg/dL [facility] VLDL Cholesterol, Nonfasting 28 mg/dL <30 mg/dL [facility] PROSTATE-SPECIFIC ANTIGEN DI AGNOSTICon 08-08-2023 Prostate specific Ag [Mass/Vol] 1.92 ng/mL <2.60 ng/mL [facility] Urinalysis complete panel (U )on 08-08-2023 Bacteria LM.HPF (Urine sed) [#/Area] Negative Negative /HPF [facility] Bilirubin Ql (U) Negative Negative [facility] Clarity (Unsp spec) Clear Clear [facility] Color (U) Yellow Yellow [facility] Epithelial cells LM.HPF (Urine sed) [#/Area] None Seen [facility] Glucose Test strip (U) [Mass/Vol] Negative Negative [facility] Hemoglobin Ql (U) Negative Negative [facility] Hyaline casts (Urine sed) [#/Area] 0 /[LPF] 0 /LPF [facility] Ketones Ql (U) Negative Negative [facility] Leukocyte esterase Test strip Ql (U) Negative Negative [facility] Nitrite Ql (U) Negative Negative [facility] pH (U) 6.0 [pH] <8.5 [facility] Protein (U) [Mass/Vol] Negative Negative [facility] RBC LM.HPF (Urine sed) [#/Area] 0-2 /HPF 0-2 /HPF [facility] Specific gravity (U) [Rel density] 1.015 1.005 - 1.030 [facility] Urobilinogen Ql (U) 0.2 EU/dL 0.2-1.0 EU/dL [facility] WBC LM.HPF (Urine sed) [#/Area] 0-5 /HPF 0-5 /HPF [facility] Glucose Glucometer (BldC) [M ass/Vol]Ordered By: César Tijerina on 04-14-2023 Glucose [Mass/Vol] 233 mg/dL 74-106 [facility] Comment on above: MANAGEMENT OF PATIEN T CARE PER NURSING PROTOCOL Absolute lymphocyte countOrd ered By: Lenore Robledo on 04-13-2023 Lymphocytes Auto (Unsp spec) [#/Vol] 1.45 10*3/uL 0.83-4.51 [facility] Basophil percentageOrdered B y: Lenore Robledo on 04-13-2023 Basophils/100 WBC (Bld) 0.4 % 0-1 [facility] Chloride [Moles/Vol] 106 mmol/L 98-107 [facility] Eosinophils/100 WBC (Bld) 0.1 % 0-5 [facility] Glucose [Mass/Vol] 229 mg/dL 74-106 [facility] Comment on above: Glucose result great er than or equal to 200 mg/dLsuggests DIABETES MELLITUS per A.D.A. criteria. Neutrophils (Bld) [#/Vol] 5.8 10*3/uL 2.0-7.7 [facility] Neutrophils/100 WBC (Bld) 69.9 % 47-70 [facility] Potassium [Moles/Vol] 3.9 mmol/L 3.5-5.1 [facility] Sodium [Moles/Vol] 137 mmol/L 136-145 [facility] WBC (Bld) [#/Vol] 8.3 10*3/uL 4.4-11.0 [facility] Blood erythrocytes count (nu mber/volume)Ordered By: Lenore Robledo on 04-13-2023 RBC (Bld) [#/Vol] 3.28 10*6/uL 4.6-6.2 [facility] Blood hemoglobin measurement (mass/volume)Ordered By: Lenore Robledo on 04-13-2023 Hemoglobin (Bld) [Mass/Vol] 11.2 g/dL 13.0-16.5 [facility] Blood lymphocytes/100 leukoc ytesOrdered By: Lenore Robledo on 04-13-2023 Lymphocytes/100 WBC (Bld) 17.4 % 19-41 [facility] Blood monocytes/100 leukocyt esOrdered By: Lenore Robledo on 04-13-2023 Monocytes/100 WBC (Bld) 11.7 % 0-10 [facility] Blood platelet mean volumeOr dered By: Lenore Robledo on 04-13-2023 Platelet mean volume (Bld) [Entitic vol] 9.4 fL 6.2-12.0 [facility] Determination of erythrocyte mean corpuscular volume (MCV)Ordered By: Lenore Robledo on 04-13-2023 MCV (RBC) [Entitic vol] 103.0 fL 80-94 [facility] Hematocrit Auto (Bld) [Volum e fraction]Ordered By: Lenore Robledo on 04-13-2023 Hematocrit (Bld) [Volume fraction] 33.8 % 40-54 [facility] Laboratory - Chemistry and C hemistry - challengeOrdered By: Lenore Robledo on 04-13-2023 CO2 [Moles/Vol] 25.0 mmol/L 21.0-32.0 [facility] Natriuretic peptide B (Bld) [Mass/Vol] 94.6 pg/mL 0-100 [facility] Urea nitrogen/Creatinine [Mass ratio] 11.1 mg/mg 10-20 [facility] - Hematology and Cell countsOrdered By: Lenore Robledo on 04-13-2023 Erythrocyte distribution width (RBC) [Entitic vol] 53.0 fL 35.1-43.9 [facility] Erythrocyte distribution width (RBC) [Ratio] 13.9 % 11.6-14.6 [facility] Immature granulocytes/100 WBC (Bld) 0.500 % 0.0-0.9 [facility] Comment on above: IG% - Immature Granu locytes (promyelocytes, myelocytes and metamyelocytes) > 1% indicates that a LEFT SHIFT is Present. MCH (RBC) [Entitic mass] 34.1 pg 27.0-32.0 [facility] Nucleated RBC/100 WBC (Bld) [Ratio] 0 % 0-5 [facility] (RBC) [Mass/Vol]Or dered By: Lenore Robledo on 04-13-2023 MCHC (RBC) [Mass/Vol] 33.1 g/dL 32-36 [facility] No Panel InformationOrdered By: Lenore Robledo on 04-13-2023 Estimated Creatinine Clearance Calc 40.70 ml/min [facility] Estimated GFR (MDRD) Amer 66 mL/min >60 [facility] Comment on above: GFR Calc Estimated GFR (MDRD) Non-Af Amer 54 mL/min >60 [facility] Comment on above: Non- GFR Calc Platelets bldOrdered By: Astrid Robldeo on 04-13-2023 Platelets (Bld) [#/Vol] 132 10*3/uL 150-450 [facility] Respiratory pathogens detect ion panel by molecular detection methodOrdered By: Lenore Robledo on 04-13-2023 Respiratory pathogens DNA and RNA panel JOYCE+probe (Resp) [facility] Serum or plasma calcium jose urement (mass/volume)Ordered By: Lenore Robledo on 04-13-2023 Calcium [Mass/Vol] 8.8 mg/dL 8.5-10.1 [facility] Serum or plasma creatinine m easurement (mass/volume)Ordered By: Lenore Robledo on 04-13-2023 Creatinine [Mass/Vol] 1.35 mg/dL 0.70-1.30 [facility] Comment on above: The validity of the calculated GFR & GFRAA in patients over 70 years has not been determined. Clinical correlation is essential. Serum or plasma urea nitroge n measurement (mass/volume)Ordered By: Lenore Robledo on 04-13-2023 Urea nitrogen [Mass/Vol] 15 mg/dL 7-18 [facility] Thin prep Papanicolaou smear with manual screeningOrdered By: Lenore Robledo on 04-13-2023 Thin prep Papanicolaou smear with manual screening 6 09-11 [facility] INR in Blood by Coagulation assayOrdered By: César Tijerina on 03-20-2023 INR Coag (Bld) [Relative time] 1.0 {INR} [facility] Laboratory - CoagulationOrde red By: César Tijerina on 03-20-2023 aPTT Coag (Bld) [Time] 32.2 s 24.1-36.2 [facility] PT Coag (PPP) [Time] 13.6 s 11.7-14.9 [facility] Whole blood hemoglobin A1c/t otal hemoglobin ratio (mass fraction)Ordered By: Neo Henry on 03-20-2023 HbA1c (Bld) [Mass fraction] 6.3 % 3.8-5.6 [facility] Comment on above: Normal < 5.7 % Predi abetic 5.7 - 6.4 % Diabetic >or= 6.5 % Please note range changes. Basophil percentageOrdered B y: Dr. Michael on 07-04-2022 Bilirubin [Mass/Vol] 0.60 mg/dL 0.20-1.00 [facility] Comment on above: For patients on eltr ombopag therapy, use of Dimension [place] TBIL is not recommended. Cholesterol [Mass/Vol] 110 mg/dL <200 [facility] Comment on above: <200 mg/dL Desirable 200-240 mg/dL Borderline >240 mg/dL High Risk Protein [Mass/Vol] 7.2 g/dL 6.4-8.2 [facility] Triglyceride [Mass/Vol] 135 mg/dL <199 [facility] Comment on above: The drugs N-Acetylcy steine and Metamizole may falsely depress this assay.Serum Triglycerides Reference Interval Normal <150 mg/dL Borderline high 150 - 199 mg/dL High 200 - 499 mg/dL Very High > or = 500 mg/dL Basophil percentageOrdered B y: January Loera on 07-04-2022 Chloride [Moles/Vol] 107 mmol/L 98-107 [facility] Glucose [Mass/Vol] 156 mg/dL 74-106 [facility] Comment on above: Fasting Glucose resu lt greater than or equal to 126 mg/dL suggests DIABETES MELLITUS per A.D.A. criteria. Potassium [Moles/Vol] 4.0 mmol/L 3.5-5.1 [facility] Sodium [Moles/Vol] 143 mmol/L 136-145 [facility] Direct bilirubinOrdered By: Dr. Michael on 07-04-2022 Bilirubin.direct [Mass/Vol] 0.20 mg/dL 0.00-0.30 [facility] Laboratory - Chemistry and C hemistry - challengeOrdered By: Dr. Michael on 07-04-2022 ALP [Catalytic activity/Vol] 49 U/L 45-117 [facility] ALT [Catalytic activity/Vol] 23 U/L 16-61 [facility] Globulin (S) [Mass/Vol] 3.7 g/dL 2.2-4.2 [facility] - Chemistry and C hemistry - challengeOrdered By: January Loera on 07-04-2022 CO2 [Moles/Vol] 27.0 mmol/L 21.0-32.0 [facility] Urea nitrogen/Creatinine [Mass ratio] 13.3 mg/mg 10-20 [facility] Natriuretic peptide B (Bld) [Mass/Vol] 57.4 pg/mL 0-100 [facility] No Panel InformationOrdered By: January Loera on 07-04-2022 Estimated GFR (MDRD) Amer 81 mL/min >60 [facility] Comment on above: GFR Calc Estimated GFR (MDRD) Non-Af Amer 67 mL/min >60 [facility] Comment on above: Non- GFR Calc Serum or plasma albumin jose urement (mass/volume)Ordered By: Dr. Michael on 07-04-2022 Albumin [Mass/Vol] 3.5 g/dL 3.2-5.0 [facility] Serum or plasma calcium jose urement (mass/volume)Ordered By: January Loera on 07-04-2022 Calcium [Mass/Vol] 9.1 mg/dL 8.5-10.1 [facility] Serum or plasma cholesterol in HDL measurement (mass/volume)Ordered By: Dr. Michael on 07-04-2022 Cholesterol in HDL [Mass/Vol] 49 mg/dL >40 [facility] Comment on above: The drugs N-Acetylcy steine and Metamizole may falsely depress this assay. Reference Range HDL <40 mg/dL Low HDL Cholesterol HDL >or= 60 mg/dL High HDL Cholesterol Serum or plasma cholesterol in VLDL measurement (mass/volume)Ordered By: Dr. Michael on 07-04-2022 Cholesterol in VLDL [Mass/Vol] 27 mg/dL 5-40 [facility] Serum or plasma creatinine m easurement (mass/volume)Ordered By: January Loera on 07-04-2022 Creatinine [Mass/Vol] 1.13 mg/dL 0.70-1.30 [facility] Comment on above: The validity of the calculated GFR & GFRAA in patients over 70 years has not been determined. Clinical correlation is essential. Serum or plasma low density lipoprotein (LDL) cholesterol measurement (mass/volume)Ordered By: Dr. Michael on 07-04-2022 Cholesterol in LDL [Mass/Vol] 34 mg/dL 0-130 [facility] Serum or plasma urea nitroge n measurement (mass/volume)Ordered By: January Loera on 07-04-2022 Urea nitrogen [Mass/Vol] 15 mg/dL 7-18 [facility] Thin prep Papanicolaou smear with manual screeningOrdered By: Dr. Michael on 07-04-2022 Thin prep Papanicolaou smear with manual screening 18 U/L 15-37 [facility] Thin prep Papanicolaou smear with manual screeningOrdered By: January Loera on 07-04-2022 Thin prep Papanicolaou smear with manual screening 9 5-15 [facility] CBC W Auto Differential pane l (Bld)on 05-31-2022 Basophils (Bld) [#/Vol] 0.03 10*3/uL <0.11 k/uL [facility] Basophils/100 WBC (Bld) 0.6 % [facility] Differential cell count method Nom (Bld) Auto [facility] Eosinophils (Bld) [#/Vol] 0.17 10*3/uL <0.46 k/uL [facility] Eosinophils/100 WBC (Bld) 3.3 % [facility] Erythrocyte distribution width (RBC) [Ratio] 14.2 % 11.5 - 15.0 % [facility] Hematocrit (Bld) [Volume fraction] 42.1 % 39.0 - 51.0 % [facility] Hemoglobin (Bld) [Mass/Vol] 13.6 g/dL 13.0 - 17.0 g/dL [facility] Immature granulocytes (Bld) [#/Vol] <0.10 k/uL [facility] Immature granulocytes/100 WBC (Bld) 0.2 % [facility] Lymphocytes (Bld) [#/Vol] 1.75 10*3/uL 1.00 - 4.00 k/uL [facility] Lymphocytes/100 WBC (Bld) 33.6 % [facility] MCH (RBC) [Entitic mass] 33.7 pg 26.0 - 34.0 pg [facility] MCHC (RBC) [Mass/Vol] 32.3 g/dL 30.5 - 36.0 g/dL [facility] MCV (RBC) [Entitic vol] 104.2 fL High 80.0 - 100.0 fL [facility] Monocytes (Bld) [#/Vol] 0.59 10*3/uL <0.87 k/uL [facility] Monocytes/100 WBC (Bld) 11.3 % [facility] Neutrophils (Bld) [#/Vol] 2.66 10*3/uL 1.45 - 7.50 k/uL [facility] Neutrophils/100 WBC (Bld) 51.0 % [facility] Nucleated RBC (Bld) [#/Vol] <0.01 k/uL [facility] Nucleated RBC/100 WBC (Bld) [Ratio] 0.0 /100 WBC [facility] Platelet mean volume (Bld) [Entitic vol] 10.2 fL 9.0 - 12.7 fL [facility] Platelets (Bld) [#/Vol] 207 10*3/uL 150 - 400 k/uL [facility] RBC (Bld) [#/Vol] 4.04 10*6/uL Low 4.20 - 6.0 0 m/uL [facility] WBC (Bld) [#/Vol] 5.21 10*3/uL 3.70 - 11. 00 k/uL [facility] Comprehensive metabolic 2000 panelon 05-31-2022 Albumin [Mass/Vol] 4.2 g/dL 3.9 - 4.9 g/dL [facility] ALP [Catalytic activity/Vol] 48 U/L 38 - 113 U/L [facility] ALT [Catalytic activity/Vol] 21 U/L 10 - 54 U/L [facility] Anion gap [Moles/Vol] 10 mmol/L 9 - 18 mmol/L [facility] AST [Catalytic activity/Vol] 27 U/L 14 - 40 U/L [facility] Bilirubin [Mass/Vol] 0.6 mg/dL 0.2 - 1 .3 mg/dL [facility] Calcium [Mass/Vol] 9.7 mg/dL 8.5 - 10. 2 mg/dL [facility] Chloride [Moles/Vol] 108 mmol/L High 97 - 10 5 mmol/L [facility] CO2 [Moles/Vol] 25 mmol/L 22 - 30 mmol/L [facility] Creatinine [Mass/Vol] 0.89 mg/dL 0.73 - 1.22 mg/dL [facility] Estimated Glomerular Filtration Rate 88 mL/min/1.73m >=60 mL/min/1.73m [facility] Glucose [Mass/Vol] 156 mg/dL High 74 - 99 mg/dL [facility] Potassium [Moles/Vol] 4.7 mmol/L 3.7 - 5.1 mmol/L [facility] Protein [Mass/Vol] 7.2 g/dL 6.3 - 8.0 g/dL [facility] Sodium [Moles/Vol] 143 mmol/L 136 - 144 mmol/L [facility] Urea nitrogen [Mass/Vol] 14 mg/dL 9 - 24 mg/dL [facility] LIPID PANEL, NONFASTINGon Cholesterol [Mass/Vol] 117 mg/dL <200 mg/dL [facility] HDL Cholesterol, Nonfasting 51 mg/dL >39 mg/dL [facility] LDL Cholesterol, Nonfasting 49 mg/dL <100 mg/dL [facility] LDL/HDL Ratio, Nonfasting 0.96 mg/dL <2.54 mg/dL [facility] Non HDL Cholesterol, Nonfasting 66 mg/dL <130 mg/dL [facility] Total Chol/HDL Ratio, Nonfasting 2.29 mg/dL <5.10 mg/dL [facility] Triglycerides, Nonfasting 85 mg/dL <150 mg/dL [facility] VLDL Cholesterol, Nonfasting 17 mg/dL <30 mg/dL [facility] PSA/PROSTSPECAG DIAGon 05-31 Prostate specific Ag [Mass/Vol] 1.42 ng/mL <2.60 ng/mL [facility] C-REACTIVE PROTEIN (CRP)on 0 09-19-2021 CRP [Mass/Vol] mg/L <0.9 mg/dL [facility] CBC W Auto Differential pane l (Bld)on 09-19-2021 Abs Immature Gran <0.03 <0.10 k/uL [facility] Basophils (Bld) [#/Vol] 0.05 10*3/uL <0.11 k/uL [facility] Basophils/100 WBC (Bld) 0.7 % [facility] Differential cell count method Nom (Bld) Auto [facility] Eosinophils (Bld) [#/Vol] 0.09 10*3/uL <0.46 k/uL [facility] Eosinophils/100 WBC (Bld) 1.2 % [facility] Erythrocyte distribution width (RBC) [Ratio] 13.3 % 11.5 - 15.0 % [facility] Hematocrit (Bld) [Volume fraction] 43.0 % 39.0 - 51.0 % [facility] Hemoglobin (Bld) [Mass/Vol] 14.5 g/dL 13.0 - 17.0 g/dL [facility] Immature Gran % 0.3 % [facility] Lymphocytes (Bld) [#/Vol] 2.18 10*3/uL 1.00 - 4.00 k/uL [facility] Lymphocytes/100 WBC (Bld) 29.1 % [facility] MCH (RBC) [Entitic mass] 34.1 pg High 26.0 - 34.0 pg [facility] MCHC (RBC) [Mass/Vol] 33.7 g/dL 30.5 - 36.0 g/dL [facility] MCV (RBC) [Entitic vol] 101.2 fL High 80.0 - 100.0 fL [facility] Monocytes (Bld) [#/Vol] 0.80 10*3/uL <0.87 k/uL [facility] Monocytes/100 WBC (Bld) 10.7 % [facility] Neutrophils (Bld) [#/Vol] 4.35 10*3/uL 1.45 - 7.50 k/uL [facility] Neutrophils/100 WBC (Bld) 58.0 % [facility] Nucleated RBC (Bld) [#/Vol] 10*3/uL <0.01 k/uL [facility] Nucleated RBC/100 WBC (Bld) [Ratio] 0.0 /100 WBC [facility] Platelet mean volume (Bld) [Entitic vol] 9.0 fL 9.0 - 12.7 fL [facility] Platelets (Bld) [#/Vol] 274 10*3/uL 150 - 400 k/uL [facility] RBC (Bld) [#/Vol] 4.25 10*6/uL 4.20 - 6.0 0 m/uL [facility] WBC (Bld) [#/Vol] 7.49 10*3/uL 3.70 - 11. 00 k/uL [facility] Comprehensive metabolic 2000 panelon 09-19-2021 Albumin [Mass/Vol] 4.7 g/dL 3.9 - 4.9 g/dL [facility] ALP [Catalytic activity/Vol] 62 U/L 38 - 113 U/L [facility] ALT [Catalytic activity/Vol] 17 U/L 10 - 54 U/L [facility] Anion gap [Moles/Vol] 12 mmol/L 9 - 18 mmol/L [facility] AST [Catalytic activity/Vol] 20 U/L 14 - 40 U/L [facility] Bilirubin [Mass/Vol] 0.6 mg/dL 0.2 - 1 .3 mg/dL [facility] Calcium [Mass/Vol] 10.4 mg/dL High 8.5 - 10. 2 mg/dL [facility] Chloride [Moles/Vol] 100 mmol/L 97 - 10 5 mmol/L [facility] CO2 [Moles/Vol] 27 mmol/L 22 - 30 mmol/L [facility] Creatinine [Mass/Vol] 1.22 mg/dL 0.73 - 1.22 mg/dL [facility] Estimated Glomerular Filtration Rate 61 mL/min/1.73m >=60 mL/min/1.73m [facility] Glucose [Mass/Vol] 147 mg/dL High 74 - 99 mg/dL [facility] Potassium [Moles/Vol] 4.9 mmol/L 3.7 - 5.1 mmol/L [facility] Protein [Mass/Vol] 7.8 g/dL 6.3 - 8.0 g/dL [facility] Sodium [Moles/Vol] 139 mmol/L 136 - 144 mmol/L [facility] Urea nitrogen [Mass/Vol] 25 mg/dL High 9 - 24 mg/dL [facility] Basophil percentageon 2021 Bilirubin [Mass/Vol] 0.70 mg/dL 0.20-1.00 [facility] Work Phone: Comment on above: For patients on eltr ombopag therapy, use of Dimension [place] TBIL is not recommended. Cholesterol [Mass/Vol] 117 mg/dL <200 [facility] Work Phone: [phone] Comment on above: <200 mg/dL Desirable 200-240 mg/dL Borderline >240 mg/dL High Risk Protein [Mass/Vol] 7.5 g/dL 6.4-8.2 [facility] Work Phone: [phone] Triglyceride [Mass/Vol] 131 mg/dL [facility] Work Phone: [phone] Comment on above: The drugs N-Acetylcy steine and Metamizole may falsely depress this assay.Serum Triglycerides Reference Interval Normal <150 mg/dL Borderline high 150 - 199 mg/dL High 200 - 499 mg/dL Very High > or = 500 mg/dL Direct bilirubinon 2 Bilirubin.direct [Mass/Vol] 0.19 mg/dL 0.00-0.30 [facility] Work Phone: [phone] Laboratory - Chemistry and C hemistry - challengeon 07-21-2021 ALP [Catalytic activity/Vol] 52 U/L 45-117 [facility] Work Phone: [phone] ALT [Catalytic activity/Vol] 24 U/L 16-61 [facility] Work Phone: [phone] Globulin (S) [Mass/Vol] 3.8 g/dL 2.2-4.2 [facility] Work Phone: [phone] Serum or plasma albumin jose urement (mass/volume)on 07-21-2021 Albumin [Mass/Vol] 3.7 g/dL 3.2-5.0 [facility] Work Phone: [phone] Serum or plasma cholesterol in HDL measurement (mass/volume)on 07-21-2021 Cholesterol in HDL [Mass/Vol] 48 mg/dL [facility] Work Phone: [phone] Comment on above: The drugs N-Acetylcy steine and Metamizole may falsely depress this assay. Reference Range HDL <40 mg/dL Low HDL Cholesterol HDL >or= 60 mg/dL High HDL Cholesterol Serum or plasma cholesterol in VLDL measurement (mass/volume)on 07-21-2021 Cholesterol in VLDL [Mass/Vol] 26 mg/dL 5-40 [facility] Work Phone: Serum or plasma low density lipoprotein (LDL) cholesterol measurement (mass/volume)on 07-21-2021 Cholesterol in LDL [Mass/Vol] 43 mg/dL 0-130 [facility] Work Phone: Thin prep Papanicolaou smear with manual screeningon 07-21-2021 Thin prep Papanicolaou smear with manual screening 21 U/L 15-37 [facility] Work Phone: XR Chest PA and Lateralon IMPRESSION: Bilateral pulmonary parenchymal opacities related to scarring or infiltrates. Small right-sided pleural effusion. Manager Drive: RICARDO Transcribe Date/Time: Feb 11 2021 2:24P Dictated by : DAVID CLEMONS MD This examination was interpreted and the report reviewed and electronically signed by: DAVID CLEMONS MD on Feb 11 2021 2:28PM [facility] DIVISION OF RADIOLOGY * * *Final Report* [...] soft tissues: Unremarkable. DIVISION OF RADIOLOGY Provider, [facility] Parisa Douglas - 02/11/2021 * * *Final Report* * [...] scarring or infiltrates. Small right-sided pleural effusion. Manager Drive: PSCB Transcribe Date/Time: Feb 11 2021 2:24P Dictated by : DAVID CLEMONS MD This examination was interpreted and the report reviewed and electronically signed by: DAVID CLEMONS MD on Feb 11 2021 2:28PM EST [facility] Radiology Study observation (narrative) [facility] XR Chest PA and LateralOrder ed By: [facility] Provider on 02-11-2021 [facility] Office Visiton 01-29-2017 Documentation of current medications (procedure) Done Invalid Interpretation Code [facility] Work Phone: [phone] Protein mass conc Done Invalid Interpretation Code [facility] Work Phone: [phone] Lab Report: Lipid Profileon 01-20-2017 HDL Cholesterol 45 mg/dL Invalid Interpretation Code [facility] Work Phone: [phone] LDL Cholesterol 37 mg/dL Invalid Interpretation Code 0-130 [facility] Work Phone: [phone] very low density lipoproteins 19 mg/dL Invalid Interpretation Code 5-40 [facility] Work Phone: [phone] Cholesterol 101 mg/dL Invalid Interpretation Code 200 [facility] Work Phone: [phone] Triglyceride 94 mg/dL Invalid Interpretation Code [facility] Work Phone: [phone] Replaced Document: Liver Pro fileon 01-20-2017 Alanine aminotransferase (ALT) 26 U/L Invalid Interpretation Code 12-78 [facility] Work Phone: [phone] Albumin 3.5 g/dL Invalid Interpretation Code 3.4-5.0 [facility] Work Phone: [phone] Alkaline phosphatase (ALP) 54 U/L Invalid Interpretation Code 45-117 [facility] Work Phone: [phone] ALP enzyme act/vol (Bld) 54 U/L Invalid Interpretation Code 45-117 [facility] Work Phone: [phone] Aspartate aminotransferase (AST) 21 U/L Invalid Interpretation Code 15-37 [facility] Work Phone: [phone] Bilirubin (direct) 0.16 mg/dL Invalid Interpretation Code 0.00-0.30 [facility] Work Phone: [phone] Bilirubin (total) 0.60 mg/dL Invalid Interpretation Code 0.20-1.00 [facility] Work Phone: [phone] Globulin 3.4 g/dL Invalid Interpretation Code 2.3-3.5 [facility] Work Phone: [phone] Globulin mass conc (S) 3.4 g/dL 2.3-3.5 [facility] Work Phone: [phone] Protein 6.9 g/dL Invalid Interpretation Code 6.4-8.2 [facility] Work Phone: [phone] Office Visiton 07-17-2016 Documentation of current medications (procedure) Done Invalid Interpretation Code [facility] [employer] Phone: [phone] Clinical Lists Update: Prelo [employer] 07-12-2016 Left ventricular Ejection fraction 55 % Invalid Interpretation Code [facility] Phone: [phone] Office Visiton 07-19-2015 Tobacco smoking status NHIS Former smoker Invalid Interpretation Code [facility] Work Phone: [phone] Tobacco use CPHS Former smoker Invalid Interpretation Code [facility] Work Phone: [phone] Office Visiton 01-26-2015 cardiac risk group C Invalid Interpretation Code [facility] Phone: [phone] Dietary management education, guidance, and counseling (procedure) yes Invalid Interpretation Code [facility] Work Phone: [phone] General cardiovascular disease 10Y risk [#] Lyn.Kamar'James N/A Invalid Interpretation Code [facility] Work Phone: [phone] EKG Report: [place] ECG Obse rvationson 01-20-2014 GE use only - for [employer] import when terms are not otherwise specified 399 ms Invalid Interpretation Code [facility] Work Phone: [phone] QTc Med[place] 399 ms Invalid Interpretation Code [facility] Work Phone: Replaced Document: Joe Naik CG Observationson 01-20-2014 EKG QRS axis -9 deg Invalid Interpretation Code [facility] Work Phone: [phone] electrocardiogram interpretation Sinus Rhythm -First degree A-V block [place] = 230BORDERLINE RHYTHM Invalid Interpretation Code [facility] Work Phone: [phone] Interpretation Sinus Rhythm -First degree A-V block [place] = 230BORDERLINE RHYTHM Invalid Interpretation Code [facility] Work Phone: [phone] P [place] 36 deg Invalid Interpretation Code [facility] Work Phone: [phone] P wave axis, electrocardiogram 36 deg Invalid Interpretation Code [facility] Work Phone: [phone] CA Interval 230 ms Invalid Interpretation Code [facility] Work Phone: [phone] CA interval, electrocardiogram 230 ms Invalid Interpretation Code [facility] Work Phone: [phone] Pulse (Heart Rate) 401 ms Invalid Interpretation Code [facility] Work Phone: [phone] Pulse (Heart Rate) 61 /min Invalid Interpretation Code [facility] Work Phone: [phone] QRS axis, electrocardiogram -9 deg Invalid Interpretation Code [facility] Work Phone: [phone] QRS Duration 94 ms Invalid Interpretation Code [facility] Work Phone: [phone] QRS duration, electrocardiogram 94 ms Invalid Interpretation Code [facility] Work Phone: QT Interval new path ms Invalid Interpretation Code [facility] Work Phone: QT interval, electrocardiogram new path ms Invalid Interpretation Code [facility] Work Phone: T [place] 12 deg Invalid Interpretation Code [facility] Work Phone: T wave axis, electrocardiogram 12 deg Invalid Interpretation Code [facility] Work Phone: Clinical Lists Update: Prelo [employer] 10-13-2011 Anion gap 8 mmol/L Invalid Interpretation Code [facility] Work Phone: [phone] Anion gap 4 molar conc 8 Invalid Interpretation Code [facility] Work Phone: [phone] Anion gap molar conc 8 mmol/L [facility] Work Phone: [phone] BUN/Creatinine Ratio 15 mg/mg Invalid Interpretation Code [facility] Work Phone: [phone] Calcium 8.9 mg/dL Invalid Interpretation Code [facility] Work Phone: [phone] Chloride 109 mmol/L High [facility] Work Phone: [phone] CO2 25 mmol/L Invalid Interpretation Code [facility] Work Phone: [phone] CO2 ppres (BldV) 25 mmol/L Invalid Interpretation Code [facility] Work Phone: [phone] Creatinine 1.0 mg/dL Invalid Interpretation Code [facility] Work Phone: [phone] Glucose 122 mg/dL High [facility] Work Phone: [phone] Glucose mass conc 122 mg/dL High [facility] Work Phone: [phone] Potassium 4.0 mmol/L Invalid Interpretation Code [facility] Work Phone: [phone] Sodium 142 mmol/L Invalid Interpretation Code [facility] Work Phone: [phone] Urea nitrogen 15 mg/dL Invalid Interpretation Code [facility] Work Phone: [phone] Office Visiton 05-19-2011 Alcoholism counseling (procedure) no Invalid Interpretation Code [facility] Work Phone: [phone] Protein mass conc no Invalid Interpretation Code [facility] Work Phone: [phone] Vital Signs Date Time Vital Sign Value Performing Clinician Facility 10-29-2024 10:42-0400 Diastolic blood pressure 70 mm[Hg] Dr. César Merrill MD Work Phone: [facility] 10-29-2024 10:42-0400 Heart rate 60 /min Dr. César Merrill MD Work Phone: [facility] 10-29-2024 10:42-0400 Systolic blood pressure 149 mm[Hg] Dr. César Merrill MD Work Phone: [phone] [place] [address] 10-29-2024 10:29-0400 Body height 167.[address] César Merrill MD Work Phone: [phone] [place] [address] 10-29-2024 10:29-0400 Body mass index (BMI) [Ratio] 37.3 kg/m2 Dr. César Merrill MD Work Phone: [phone] [place] [address] 10-29-2024 10:29-0400 Body weight 104.[address] César Merrill MD Work Phone: [phone] [place] [address] 10-29-2024 10:29-0400 Respiratory rate 18 /min Dr. César Merrill MD Work Phone: [phone] [place] [address] 10-09-2024 15:06-0400 Body temperature 98.2 [degF] Dr. César Merrill MD Work Phone: [phone] [place] [address] 10-09-2024 15:06-0400 Body weight 105.[address] César Merrill MD Work Phone: [phone] [place] [address] 10-09-2024 15:06-0400 Diastolic blood pressure 70 mm[Hg] Dr. César Merrill MD Work Phone: [phone] [place] [address] 10-09-2024 15:06-0400 Heart rate 83 /min Dr. César Merrill MD Work Phone: [phone] [place] [address] 10-09-2024 15:06-0400 Respiratory rate 16 /min Dr. César Merrill MD Work Phone: [phone] [place] [address] 10-09-2024 15:06-0400 SaO2% (BldA) [Mass fraction] 93 % Dr. César Merrill MD Work Phone: [phone] [place] [address] 10-09-2024 15:06-0400 Systolic blood pressure 143 mm[Hg] Dr. César Merrill MD Work Phone: [phone] [place] [address] 08-29-2024 11:06-0400 Body temperature 98.6 [degF] Dr. César Merrill MD Work Phone: [facility] 08-29-2024 11:06-0400 Body weight 104.[address] César Merrill MD Work Phone: [facility] 08-29-2024 11:06-0400 Diastolic blood pressure 63 mm[Hg] Dr. César Merrill MD Work Phone: [facility] 08-29-2024 11:06-0400 Heart rate 62 /min Dr. César Merrill MD Work Phone: [facility] 08-29-2024 11:06-0400 Respiratory rate 18 /min Dr. César Merrill MD Work Phone: [facility] 08-29-2024 11:06-0400 SaO2% (BldA) [Mass fraction] 94 % Dr. César Merrill MD Work Phone: [facility] 08-29-2024 11:06-0400 Systolic blood pressure 128 mm[Hg] Dr. César Merrill MD Work Phone: [facility] 07-24-2024 08:29-0400 Body height 165.1 cm César Merrill MD Work Phone: [facility] 07-24-2024 08:29-0400 Body mass index (BMI) [Ratio] 37.77 kg/m2 César Merrill MD Work Phone: [facility] 07-24-2024 08:29-0400 Body weight 102.97 kg César Merrill MD Work Phone: [facility] 07-24-2024 08:29-0400 Diastolic blood pressure 54 mm[Hg] César Merrill MD Work Phone: [facility] 07-24-2024 08:29-0400 Heart rate 60 /min César Merrill MD Work Phone: [facility] 07-24-2024 08:29-0400 SaO2% (BldA) [Mass fraction] 95 % César Merrill MD Work Phone: [facility] 07-24-2024 08:29-0400 Systolic blood pressure 124 mm[Hg] César Merrill MD Work Phone: [facility] 07-10-2024 09:30-0400 Body height 167.[address] César Merrill MD Work Phone: [facility] 07-10-2024 09:30-0400 Body mass index (BMI) [Ratio] 37.4 kg/m2 Dr. César Merrill MD Work Phone: [facility] 07-10-2024 09:30-0400 Body weight 105.[address] César Merrill MD Work Phone: [facility] 07-10-2024 09:30-0400 Diastolic blood pressure 65 mm[Hg] Dr. César Merrill MD Work Phone: [facility] 07-10-2024 09:30-0400 Heart rate 55 /min Dr. César Merrill MD Work Phone: [facility] 07-10-2024 09:30-0400 Respiratory rate 18 /min Dr. César Merrill MD Work Phone: [facility] 07-10-2024 09:30-0400 SaO2% (BldA) [Mass fraction] 92 % Dr. César Merrill MD Work Phone: [facility] 07-10-2024 09:30-0400 Systolic blood pressure 142 mm[Hg] Dr. César Merrill MD Work Phone: [facility] 06-10-2024 13:21-0500 Body mass index (BMI) [Ratio] 39.16 kg/m2 Deysi Cain APRN.RUFFLER Work Phone: [facility] 06-10-2024 13:21-0500 Body temperature 98.71 [degF] Deysi Cain APRN.CNP Work Phone: [facility] 06-10-2024 13:21-0500 Body weight 105.1 kg Deysi Cain APRN.CNP Work Phone: [facility] 06-10-2024 13:21-0500 Diastolic blood pressure 72 mm[Hg] Deysi Cain APRN.RUFFLER Work Phone: [facility] 06-10-2024 13:21-0500 Heart rate 92 /min Deysi Cain APRN.RUFFLER Work Phone: [facility] 06-10-2024 13:21-0500 Respiratory rate 18 /min Deysi Cain APRN.RUFFLER Work Phone: [facility] 06-10-2024 13:21-0500 SaO2% (BldA) [Mass fraction] 94 % Deysi Cain APRN.RUFFLER Work Phone: [facility] 06-10-2024 13:21-0500 Systolic blood pressure 142 mm[Hg] Deysi Cain APRN.RUFFLER Work Phone: [facility] 02-14-2024 09:13-0400 Diastolic blood pressure 58 mm[Hg] César Merrill MD Work Phone: [facility] 02-14-2024 09:13-0400 Systolic blood pressure 132 mm[Hg] César Merrill MD Work Phone: [facility] 02-14-2024 08:39-0400 Body height 163.8 cm César Merrill MD Work Phone: [facility] 02-14-2024 08:39-0400 Body mass index (BMI) [Ratio] 37.33 kg/m2 César Merrill MD Work Phone: [facility] 02-14-2024 08:39-0400 Body weight 100.2 kg César Merrill MD Work Phone: [facility] 02-14-2024 08:39-0400 Heart rate 59 /min César Merrill MD Work Phone: [facility] 08-08-2023 09:31-0400 Body height 163.8 cm César Merrill MD Work Phone: [facility] 08-08-2023 09:31-0400 Body weight 101.15 kg César Merrill MD Work Phone: [facility] 08-08-2023 09:31-0400 Diastolic blood pressure 60 mm[Hg] César Merrill MD Work Phone: [facility] 08-08-2023 09:31-0400 Heart rate 76 /min César Merrill MD Work Phone: [facility] 08-08-2023 09:31-0400 Respiratory rate 16 /min César Merrill MD Work Phone: [facility] 08-08-2023 09:31-0400 Systolic blood pressure 118 mm[Hg] César Merrill MD Work Phone: [facility] 04-19-2023 09:58-0500 Body weight 101.15 kg May Ragland MD Work Phone: [facility] 04-19-2023 09:58-0500 Diastolic blood pressure 62 mm[Hg] May Ragland MD Work Phone: [facility] 04-19-2023 09:58-0500 Heart rate 81 /min May Ragland MD Work Phone: [facility] 04-19-2023 09:58-0500 SaO2% (BldA) [Mass fraction] 96 % May Ragland MD Work Phone: [facility] 04-19-2023 09:58-0500 Systolic blood pressure 142 mm[Hg] May Ragland MD Work Phone: [facility] 04-14-2023 10:56-0500 Heart rate 88 /min Dr. César Merrill Work Phone: [facility] 04-14-2023 10:56-0500 Respiratory rate 22 /min Dr. César Merrill Work Phone: [facility] 04-14-2023 09:28-0500 Inhaled oxygen flow rate 2 L/min Dr. César Merrill Work Phone: 7(491)[phone] [place] [address] 04-14-2023 09:28-0500 SaO2% (BldA) [Mass fraction] 91 % Dr. César Merrill Work Phone: 7(475)814-372082 [place] [address] 04-14-2023 07:37-0500 Body temperature 98.3 [degF] Dr. César Merrill Work Phone: 2(427)370-455371 [place] [address] 04-14-2023 07:37-0500 Diastolic blood pressure 56 mm[Hg] Dr. César Merrill Work Phone: 0(744)709-007871 [place] [address] 04-14-2023 07:37-0500 Systolic blood pressure 124 mm[Hg] Dr. César Merrill Work Phone: 5(627)353-164371 [place] [address] 04-12-2023 16:00-0500 Body height 167.[address] César Merrill Work Phone: 1(434)011-670971 [place] [address] 04-12-2023 16:00-0500 Body mass index (BMI) [Ratio] 37.9 kg/m2 Dr. César Merrill Work Phone: 4(273)246-845271 [place] [address] 04-12-2023 16:00-0500 Body weight 106.[address] César Merrill Work Phone: 2(037)942-821071 [place] [address] 03-26-2023 11:56-0500 Diastolic blood pressure 66 mm[Hg] Melody Jerome [employer]ISHER[employer]RUFFLER Work Phone: [facility] 03-26-2023 11:56-0500 Systolic blood pressure 141 mm[Hg] Melody Jerome [employer] FINISHER[employer]RUFFLER Work Phone: [facility] 03-26-2023 11:50-0500 Body height 165.1 cm Melody Jerome [employer] FINISHER[employer]RUFFLER Work Phone: [facility] 03-26-2023 11:50-0500 Body temperature 98.01 [degF] Melody Jerome [employer] FINISHER[employer]RUFF[employer]ER Work Phone: [facility] 03-26-2023 11:50-0500 Body weight 103.42 kg Melody Jerome [employer] FINISHER.RUFFLER Work Phone: [facility] 03-26-2023 11:50-0500 Heart rate 70 /min Melody Cano [employer] FINISHER[employer]RUFF[employer]ER Work Phone: [facility] 03-26-2023 11:50-0500 Respiratory rate 12 /min Melodyjuvenal Cano [employer] FINISHER[employer]RUFFLER Work Phone: [facility] 03-26-2023 11:50-0500 SaO2% (BldA) [Mass fraction] 99 % Melodyrigo Cano [employer] FINISHER[employer]RUFFLER Work Phone: [facility] 03-09-2023 10:57-0500 Diastolic blood pressure 78 mm[Hg] Dr. César Merrill Work Phone: [facility] 03-09-2023 10:57-0500 Systolic blood pressure 128 mm[Hg] Dr. César Merrill Work Phone: [facility] 03-09-2023 10:27-0500 Body mass index (BMI) [Ratio] 35.9 kg/m2 Dr. César Merrill Work Phone: 7(171)037-968382 [place] [address] 03-09-2023 10:27-0500 Body weight 101.[address] César Merrill Work Phone: [facility] 03-09-2023 10:27-0500 Heart rate 94 /min Dr. César Merrill Work Phone: [facility] 03-09-2023 10:27-0500 Respiratory rate 18 /min Dr. César Merrill Work Phone: [facility] 03-09-2023 10:27-0500 SaO2% (BldA) [Mass fraction] 95 % Dr. César Merrill Work Phone: [facility] 07-04-2022 09:18-0500 Body height 167.[address] César Merrill Work Phone: 1(700)945-146882 [place] [address] 07-04-2022 09:18-0500 Body mass index (BMI) [Ratio] 35.8 kg/m2 Dr. César Merrill Work Phone: [facility] 07-04-2022 09:18-0500 Body weight 100.[address] César Merrill Work Phone: [facility] 07-04-2022 09:18-0500 Diastolic blood pressure 67 mm[Hg] Dr. César Merrill Work Phone: [facility] 07-04-2022 09:18-0500 Heart rate 62 /min Dr. César eMrrill Work Phone: [facility] 07-04-2022 09:18-0500 Respiratory rate 18 /min Dr. César Merrill Work Phone: [facility] 07-04-2022 09:18-0500 SaO2% (BldA) [Mass fraction] 95 % Dr. César Merrill Work Phone: [facility] 07-04-2022 09:18-0500 Systolic blood pressure 133 mm[Hg] Dr. César Merrill Work Phone: [facility] 05-31-2022 07:54-0500 Body height 165.1 cm César Merrill MD Work Phone: [facility] 05-31-2022 07:54-0500 Body weight 100.7 kg César Merrill MD Work Phone: [facility] 05-31-2022 07:54-0500 Diastolic blood pressure 68 mm[Hg] César Merrill MD Work Phone: [facility] 05-31-2022 07:54-0500 Heart rate 64 /min César Merrill MD Work Phone: [facility] 05-31-2022 07:54-0500 Respiratory rate 16 /min César Merrill MD Work Phone: [facility] 05-31-2022 07:54-0500 Systolic blood pressure 132 mm[Hg] César Merrill MD Work Phone: [facility] 01-11-2022 10:33-0400 Diastolic blood pressure 68 mm[Hg] Dr. César Merrill Work Phone: [facility] Work Phone: 01-11-2022 10:33-0400 Heart rate 60 /min Dr. César Merrill Work Phone: [facility] Work Phone: 01-11-2022 10:33-0400 Systolic blood pressure 142 mm[Hg] Dr. César Merrill Work Phone: [facility] Work Phone: 01-11-2022 10:00-0400 Body height 167.[address] César Merrill Work Phone: [facility] Work Phone: 01-11-2022 10:00-0400 Body mass index (BMI) [Ratio] 34.8 kg/m2 Dr. César Merrill Work Phone: [facility] Work Phone: 01-11-2022 10:00-0400 Body weight 97.[address] César Merrill Work Phone: [facility] Work Phone: 01-11-2022 10:00-0400 Respiratory rate 16 /min Dr. César Merrill Work Phone: [facility] Work Phone: 11-15-2021 08:00-0400 Body weight 98.43 kg César Merrill MD Work Phone: [facility] 11-15-2021 08:00-0400 Diastolic blood pressure 84 mm[Hg] César Merrill MD Work Phone: [facility] 11-15-2021 08:00-0400 Heart rate 78 /min César Merrill MD Work Phone: [facility] 11-15-2021 08:00-0400 Respiratory rate 14 /min César Merrill MD Work Phone: [facility] 11-15-2021 08:00-0400 Systolic blood pressure 132 mm[Hg] César Merrill MD Work Phone: [facility] 09-23-2021 11:04-0400 Body temperature 98.49 [degF] Katarzyna MITCHELL-C Work Phone: [facility] 09-23-2021 11:04-0400 Body weight 96.16 kg Katarzyna MITCHELL-C Work Phone: [facility] 09-23-2021 11:04-0400 Diastolic blood pressure 60 mm[Hg] Katarzyna MITCHELL-C Work Phone: [facility] 09-23-2021 11:04-0400 Heart rate 68 /min Katarzyna MITCHELL-C Work Phone: [facility] 09-23-2021 11:04-0400 Respiratory rate 16 /min Katarzyna MITCHELL-C Work Phone: [facility] 09-23-2021 11:04-0400 Systolic blood pressure 110 mm[Hg] Katarzyna MITCHELL-C Work Phone: [facility] 09-19-2021 09:29-0400 Body temperature 98.71 [degF] César Ghotra BR[employer] FINISHER.RUFFLER Work Phone: [facility] 09-19-2021 09:29-0400 Body weight 93.44 kg César Ghotra [employer] FINISHER[employer]RUFFLER Work Phone: [facility] 09-19-2021 09:29-0400 Diastolic blood pressure 56 mm[Hg] César Ghotra [employer] FINISHER.RUFFLER Work Phone: [facility] 09-19-2021 09:29-0400 Heart rate 92 /min César Ghotra BR[employer] FINISHER.RUFFLER Work Phone: [facility] 09-19-2021 09:29-0400 Respiratory rate 16 /min César Ghotra [employer] FINISHER[employer]RUFFLER Work Phone: [facility] 09-19-2021 09:29-0400 SaO2% (BldA) [Mass fraction] 97 % César Ghotra [employer] FINISHER.RUFFLER Work Phone: [facility] 09-19-2021 09:29-0400 Systolic blood pressure 132 mm[Hg] César Ghotra APRN.RUFFLER Work Phone: [facility] 07-14-2021 10:03-0400 Body height 167.[address] César Merrill Work Phone: [facility] Work Phone: 07-14-2021 10:03-0400 Body mass index (BMI) [Ratio] 33.3 kg/m2 Dr. Cséar Merrill Work Phone: [facility] Work Phone: 07-14-2021 10:03-0400 Body weight 93.[address] César Merrill Work Phone: [facility] Work Phone: 07-14-2021 10:03-0400 Diastolic blood pressure 58 mm[Hg] Dr. César Merrill Work Phone: [facility] Work Phone: 07-14-2021 10:03-0400 Heart rate 60 /min Dr. César Merrill Work Phone: [facility] Work Phone: 07-14-2021 10:03-0400 Respiratory rate 16 /min Dr. César Merrill Work Phone: [facility] Work Phone: 07-14-2021 10:03-0400 Systolic blood pressure 130 mm[Hg] Dr. César Merrill Work Phone: [facility] Work Phone: 01-29-2017 08:41-0400 BMI (Body Mass Index) 31.95 kg/m2 Padma Angelo [facility] Work Phone: 01-29-2017 08:41-0400 BP Diastolic 72 mm[Hg] Padma Baker [facility] Work Phone: 01-29-2017 08:41-0400 BP Systolic 130 mm[Hg] Padma Baker [facility] Work Phone: 01-29-2017 08:41-0400 Height 167.64 cm Padma Baker [facility] Work Phone: 01-29-2017 08:41-0400 Pulse (Heart Rate) 58 /min Padma Baker [facility] Work Phone: 01-29-2017 08:41-0400 Respiratory Rate 18 /min Padma Baker [facility] Work Phone: 01-29-2017 08:41-0400 Weight 89.81 kg Padma Baker [facility] Work Phone: 07-17-2016 12:00-0400 BMI (Body Mass Index) 33.73 kg/m2 Trey Malagon [employer] [facility] Work Phone: 07-17-2016 12:00-0400 BP Diastolic 52 mm[Hg] Trey Malagon [employer] [facility] Work Phone: 07-17-2016 12:00-0400 BP Systolic 128 mm[Hg] Trey Manas [employer] [facility] Work Phone: 07-17-2016 12:00-0400 Height 167.64 cm Trey Malagon [employer] [facility] Work Phone: 07-17-2016 12:00-0400 Pulse (Heart Rate) 60 /min Trey Malagon [employer] [facility] Work Phone: 07-17-2016 12:00-0400 Respiratory Rate 18 /min Trey Malagon [employer] [facility] Work Phone: 07-17-2016 12:00-0400 Weight 94.8 kg Trey Malagon [employer] [facility] Work Phone: 01-14-2016 11:48-0400 BSA (Body Surface Area) 2.06 m2 Trey Malagon [employer] [facility] Work Phone: 07-19-2015 09:04-0400 BP Diastolic 80 mm[Hg] Trey Manas MORENO [facility] Work Phone: 07-19-2015 [id number] BP Systolic 130 mm[Hg] Trey Manas [employer] [facility] Work Phone: 01-20-2014 14:06-0400 Heart rate 401 ms Padma Baker [facility] Work Phone: 01-20-2014 14:06-0400 Heart rate 61 /min Padma Baker [facility] Work Phone: Encounters Encounter Date Encounter Type Care Provider Facility Start: 11-18-2024 ambulatory Lenny Taylor Facility:[facility] Start: 11-12-2024 ambulatory César Merrill Facility :[facility] Start: 11-07-2024 Encounter for other preprocedural examination [facility] Start: 10-29-2024 Encounter for preprocedural cardiovascular examination Trey Malagon [facility] Start: 10-29-2024 End: 10-29-2024 Patient encounter procedure Trey Alvarado Manas [employer]-C -[facility] Work Phone: Start: 10-29-2024 End: 10-29-2024 Patient encounter status Trey Alvarado Manas [employer]-C [facility] Start: 10-29-2024 End: 10-29-[address] César Merrill MD Work Phone: -[facility] Start: 10-17-2024 End: 10-17-2024 Chart abstracting Diamond Cain MA [facility] Comment on above: Results (Outside res ults /) Start: 10-14-2024 End: 10-14-2024 Refill César Merrill MD Work Phone: [facility] Comment on above: Refill Request Start: 10-09-2024 End: 10-09-[address] Lenny Taylor MD -[facility] Work Phone: Start: 10-09-2024 End: 10-09-[address] César Merrill MD Work Phone: [facility] Work Phone: Start: 10-03-2024 End: 10-03-[address] César Merrill MD Work Phone: [facility] Work Phone: Start: 10-03-2024 End: 10-03-2024 Patient encounter procedure Sloane MITCHELL [facility] Work Phone: Start: 10-03-2024 End: 10-03-2024 ambulatory César Merrill Facility:[facility] Start: 09-10-2024 End: 09-10-2024 Refill César Merrill MD Work Phone: [facility] Comment on above: Refill Request Start: 09-02-2024 End: 09-02-2024 Chart abstracting César Merrill MD Work Phone: [facility] Comment on above: Outside Vascular Start: 08-29-2024 End: 08-29-2024 Patient encounter procedure Sloane MITCHELL [facility] Work Phone: Start: 08-29-2024 End: 08-29-2024 ambulatory César Merrill Facility:[facility] Start: 08-21-2024 End: 08-21-2024 ambulatory CÉSAR MERRILL Facility:[facility] Start: 07-31-2024 End: 08-05-2024 Telephone encounter César Merrill MD Work Phone: [facility] Comment on above: Patient Update Start: 07-25-2024 End: 07-30-2024 Follow-up encounter César Merrill MD Work Phone: [facility] Start: 07-24-2024 End: 07-24-2024 ambulatory CÉSAR MERRILL Facility:[facility] Start: 07-24-2024 End: 07-24-2024 Ophthalmic examination and evaluation César Merrill MD Work Phone: [facility] Start: 07-24-2024 End: 07-24-2024 Patient encounter procedure César Merrill MD Work Phone: [facility] Comment on above: Well adult exam (Bonita katie Dx); Type 2 diabetes mellitus without complication, without long-term current use of insulin (HCC); Diabetic eye exam (HCC); Hypertension, essential; Mixed hyperlipidemia; Atherosclerosis of [place] coronary artery of [place] heart without angina pectoris; KARLA (obstructive sleep apnea); Vitamin B12 deficiency; Benign prostatic hyperplasia with urinary frequency; Nocturnal leg cramps; Cyanosis; Diminished pulses in lower extremity; Screening for depression; Advance directive discussed with patient; Encounter for screening examination for other mental health and behavioral disorders Start: 07-24-2024 End: 07-24-2024 Patient encounter status César Merrill MD Work Phone: [facility] Start: 07-24-2024 Encounter for genera l adult medical examination without abnormal findings CÉSAR MERRILL [facility] Start: 07-24-2024 End: 07-24-2024 ambulatory CÉSAR MERRILL Facility:[facility] Start: 07-18-2024 End: 07-18-2024 Telephone encounter César Merrill MD Work Phone: [facility] Comment on above: Refill Request Start: 07-10-2024 End: 07-10-[address] London Tobar MD -[facility] Work Phone: Start: 07-10-2024 End: 07-10-2024 ambulatory César Merrill Facility:[facility] Start: 07-04-2024 End: 07-04-2024 Chart abstracting César Merrill MD Work Phone: [facility] Comment on above: Outside Diabetic Eye Exam Start: 06-10-2024 End: 06-10-2024 ambulatory CÉSAR MERRILL Facility:[facility] Start: 06-10-2024 End: 06-10-2024 Patient encounter procedure Deysi Cain APRN.CNP Work Phone: [facility] Comment on above: URI, acute (Primary Dx) Start: 02-15-2024 End: 02-15-2024 Telephone encounter César Merrill MD Work Phone: [facility] Comment on above: Results Start: 02-14-2024 End: 02-14-2024 ambulatory CÉSAR MERRILL Facility:[facility] Start: 02-14-2024 End: 02-14-2024 Ophthalmic examination and evaluation César Merrill MD Work Phone: [facility] Start: 02-14-2024 End: 02-14-2024 Patient encounter procedure César Merrill MD Work Phone: [facility] Comment on above: Type 2 diabetes channing itus without complication, without long- term current use of insulin (HCC) (Primary Dx); Diabetic eye exam (HCC); Hypertension, essential; Mixed hyperlipidemia; Atherosclerosis of [place] coronary artery of [place] heart without angina pectoris; KARLA (obstructive sleep apnea); Vitamin B12 deficiency; Need for vaccination; Encounter for immunization Start: 02-14-2024 End: 02-14-2024 ambulatory CÉSAR MERRILL Facility:[facility] Start: 09-14-2023 Telephone encounter Céasr Merrill MD Work Phone: [facility] Comment on above: Results Start: 08-16-2023 Telephone encounter César Merrill MD Work Phone: [facility] Comment on above: Results Start: 08-09-2023 Telephone encounter César Merrill MD Work Phone: [facility] Comment on above: Results Start: 08-08-2023 End: 08-08-2023 Ophthalmic examination and evaluation César Merrill MD Work Phone: [facility] Work Phone: Start: 08-08-2023 End: 08-08-2023 Patient encounter procedure César Merrill MD Work Phone: [facility] Comment on above: Well adult exam (Bonita katie Dx); Type 2 diabetes mellitus without complication, without long-term current use of insulin (HCC); Diabetic eye exam (HCC); Hypertension, essential; Mixed hyperlipidemia; Atherosclerosis of [place] coronary artery of [place] heart without angina pectoris; KARLA (obstructive sleep apnea); Benign prostatic hyperplasia with urinary frequency; Advance directive discussed with patient; Screening for colon cancer; Prostate disorder; Nocturnal leg cramps Start: 08-08-2023 End: 08-08-2023 Patient encounter status César Merrill MD Work Phone: [facility] Work Phone: Start: 04-19-2023 End: 04-19-2023 Patient encounter procedure May Ragland MD Work Phone: Pulmonary Medicine Comment on above: Hypoxemia (Primary D x); History of COVID-19 Start: 04-14-2023 Non-patient / Non-visit Dr. Riccardo Merrill Work Phone: [facility] Work Phone: Start: 04-13-2023 Non-patient / Non-visit Dr. Riccardo Merrill Work Phone: [facility] Work Phone: Start: 04-12-2023 Non-patient / Non-visit Dr. Riccardo Merrill Work Phone: [facility] Work Phone: Start: 04-12-2023 End: 04-14-2023 Evaluation and management of inpatient Dr. César Merrill Work Phone: [facility] Work Phone: Start: 04-12-2023 End: 04-14-[address] César Merrill Work Phone: [facility] Work Phone: Start: 04-10-2023 Chart abstracting César winn MD Work Phone: [facility] Start: 04-10-2023 Ophthalmic examinati on and evaluation César Merrill MD Work Phone: [facility] Start: 03-26-2023 End: 03-26-2023 Patient encounter procedure Melody Cano APRN.RUFFLER Work Phone: [facility] Comment on above: Preop examination (P rimary Dx) Start: 03-26-2023 End: 03-26-2023 Preprocedural examination done Melody Jerome FRAN Work Phone: [facility] Work Phone: Start: 03-15-2023 Telephone encounter César Merrill MD Work Phone: [facility] Comment on above: pre-op form Start: 03-09-2023 End: 03-09-[address] César Merrill Work Phone: [facility] Work Phone: Start: 11-10-2022 Refill César guevara MD Work Phone: [facility] Comment on above: Refill Request Start: 08-08-2022 Refill César guevara MD Work Phone: [facility] Comment on above: Refill Request Start: 07-06-2022 Chart abstracting César winn MD Work Phone: [facility] Comment on above: Consult (Consult to Cardiology/labs) Start: 07-04-2022 End: 07-04-[address] César Merrill Work Phone: [facility] Work Phone: Start: 07-04-2022 End: 07-04-[address] César Merrill Work Phone: [facility] Start: 05-31-2022 End: 05-31-2022 Ophthalmic examination and evaluation Céasr Merrill MD Work Phone: [facility] Start: 05-31-2022 End: 05-31-2022 Patient encounter procedure César Merrill MD Work Phone: [facility] Comment on above: Well adult exam (Bonita katie Dx); Type 2 diabetes mellitus without complication, without long-term current use of insulin (HCC); Diabetic eye exam (HCC); Hypertension, essential; Mixed hyperlipidemia; Atherosclerosis of [place] coronary artery of [place] heart without angina pectoris; KARLA (obstructive sleep apnea); Benign prostatic hyperplasia with urinary frequency; Osteoarthritis of multiple joints, unspecified osteoarthritis type; Advance directive discussed with patient; Encounter for immunization; Screening for colon cancer; Prostate disorder Start: 05-31-2022 End: 05-31-2022 Patient encounter status César Merrill MD Work Phone: [facility] Start: 05-08-2022 Refill César guevara MD Work Phone: [facility] Comment on above: Refill Request Start: 04-05-2022 Telephone encounter Meggan Srini Work Phone: Pulmonary Medicine Comment on above: Orders Start: 03-21-2022 Ophthalmic examinati on and evaluation Meggan Milligan Work Phone: [facility] Start: 02-10-2022 Refill César guevara MD Work Phone: [facility] Comment on above: Refill Request Start: 01-24-2022 Non-patient / Non-visit Dr. Riccardo Merrill Work Phone: [facility] Start: 01-24-2022 End: 01-24-[address] César Merrill Work Phone: [facility] Work Phone: Start: 01-24-2022 End: 01-24-[address] César Merrill Work Phone: [facility] Start: 01-11-2022 End: 01-11-[address] César Merrill Work Phone: [facility] Start: 11-16-2021 Telephone encounter César Merrill MD Work Phone: [facility] Comment on above: Results Start: 11-15-2021 End: 11-15-2021 Ophthalmic examination and evaluation César Merrill MD Work Phone: [facility] Start: 11-15-2021 End: 11-15-2021 Patient encounter procedure César Merrill MD Work Phone: [facility] Comment on above: Type 2 diabetes channing itus without complication, without long- term current use of insulin (HCC) (Primary Dx); Diabetic eye exam (HCC); Hypertension, essential; Mixed hyperlipidemia; Atherosclerosis of [place] coronary artery of [place] heart without angina pectoris; KARLA (obstructive sleep apnea); Nocturnal leg cramps; Benign prostatic hyperplasia with urinary frequency; Living will in place; Advance directive discussed with patient Start: 09-27-2021 Telephone encounter Katarzyna huddleston PA-C Work Phone: [facility] Comment on above: Results Start: 09-23-2021 End: 09-23-2021 Patient encounter procedure Katarzyna Munson PA-C Work Phone: [facility] Comment on above: Generalized abdomina l pain (Primary Dx); Hypercalcemia Start: 09-19-2021 Telephone encounter Tiffog manuel BRUSH FINISHER.RUFFLER Work Phone: [facility] Comment on above: Results Start: 09-19-2021 End: 09-19-2021 Patient encounter procedure César Ghotra [employer] FINISHER.RUFFLER Work Phone: [facility] Comment on above: Abdominal pain, gene ralized (Primary Dx) Start: 08-09-2021 Refill César guevara MD Work Phone: [facility] Comment on above: Refill Request Start: 07-21-2021 Chart abstracting César winn MD Work Phone: [facility] Comment on above: Outside Labs Results Start: 07-21-2021 End: 07-21-[address] César Merrill Work Phone: [facility] Start: 07-14-2021 End: 07-14-[address] César Merrill Work Phone: [facility] Start: 06-27-2021 Refill César guevara MD Work Phone: [facility] Comment on above: Refill Request (NEW PHARMACY) Start: 05-12-2021 Patient encounter status Jorge Merrill MD Work Phone: [facility] Work Phone: Start: 02-24-2021 Ophthalmic examinati on and evaluation César Merrill MD Work Phone: [facility] Start: 02-11-2021 End: 02-11-2021 Subsequent hospital visit by physician [facility] Work Phone: Radiology Comment on above: Pneumonia due to COV ID-19 virus [U07.1, J12.82] Procedures Date Procedure Procedure Detail Performing Clinician Start: 10-03-2024 CT of abdominal aorta with contrast Dr. César Merrill MD Work Phone: Start: 07-24-2024 Adult depression screening assessment César Merrill MD Work Phone: Start: 08-08-2023 Adult depression screening assessment [facility] Work Phone: Start: 04-13-2023 Nucleic acid assay [...] exam chest 2 views Terry Sullivan APRN.COCO, DNP Work Phone: Start: 01-29-2017 End: 01-29-2017 GREGORY [...] Pandey Work Phone: Start: 01-20-2014 End: 01-20-2014 GREGORY Barba MD Work Phone: Start: 01-20-2014 End: [...] Detail Author Start: 10-27-2030 Urine microalbumin profile [facility] Start: 02-13-2027 Diabetes Screening Diabetes Screenin g [facility] Start: 07-24-2025 Annual PCP Team Used [employer] Ready Worker kay Disease Visit Annual PCP Team Chronic Disease Visit [facility] Start: 07-24-2025 Anxiety Screening Anxiety Screening [facility] Start: 07-24-2025 BP Controlled (<130/80) BP Controlle d (<130/80) [facility] Start: 07-24-2025 Depression Screening Depression Scre ening [facility] Start: 07-24-2025 Diabetic foot examination Diabetic F oot Exam [facility] Start: 07-24-2025 Hepatitis B screening Urine Albumin:Creatinine Ratio [facility] Start: 07-24-2025 Hepatitis B surface antibody level LDL Cholesterol [facility] Start: 07-03-2025 Glaucoma screening Dilated Retinal E xam [facility] Start: 02-13-2025 Annual PCP Team Used [employer] Ready Worker kay Disease Visit Annual PCP Team Chronic Disease Visit [facility] Start: 02-13-2025 BP Controlled (<130/80) BP Controlle d (<130/80) [facility] Start: 01-27-2025 End: 01-27-2025 Patient encounter procedure 01/27/2025 8:40 AM EDT Office Visit [facility] [address] [place] [address] César Merrill MD [address] [place] [id number] 6 month follow up [facility] Comment on above: 6 month follow up Start: 01-24-2025 Hemoglobin A1c measurement HbA1C [facility] Start: 10-29-2024 Evaluation of diagno stic study results [facility] Start: 08-21-2024 End: 08-21-2024 Patient encounter procedure 08/21/2024 12:30 PM EDT Office Visit [facility] [address] [place] [address] Cyanosis [R23.0]; Diminished pulses in lower extremity [R09.89] [facility] Comment on above: Cyanosis [R23.0]; Di minished pulses in lower extremity [R09.89] Start: 08-14-2024 Hemoglobin A1c measurement HbA1C [facility] Start: 08-14-2024 End: 08-14-2024 Patient encounter procedure [facility] Comment on above: physical physical-discuss med compliance Start: 08-07-2024 Annual PCP Team Used [employer] Make Ready Worker kay Disease Visit Annual PCP Team Chronic Disease Visit [facility] Start: 08-07-2024 Anxiety Screening Anxiety Screening [facility] Start: 08-07-2024 BP Controlled (<130/80) BP Controlle d (<130/80) [facility] Start: 08-07-2024 Depression Screening Depression Scre ening [facility] Start: 08-07-2024 Diabetic foot examination Diabetic F oot Exam [facility] Start: 08-07-2024 Hepatitis B screening Urine Albumin:Creatinine Ratio [facility] Start: 08-07-2024 Hepatitis B surface antibody level LDL Cholesterol [facility] Start: 08-07-2024 RSV Vaccine (1 - 1-d ose 60+ series) RSV Vaccine (1 - 1-dose 60+ series) [facility] Comment on above: Postponed from 02/18 (Insurance Coverage) Start: 08-07-2024 RSV Vaccine (1 - 1-d ose 75+ series) RSV Vaccine (1 - 1-dose 75+ series) [facility] Comment on above: Postponed from 02/18 (Insurance Coverage) Start: 08-07-2024 Shingrix Vaccine (2 of 2) Tam grix Vaccine (2 of 2) [facility] Comment on above: Postponed from 12/22 (Declined at this time) Start: 07-24-2024 End: 10-23-2024 Microalbumin/Creatinine [Mass Ratio] in Urine [facility] Work Phone: Comment on above: Expected: 07/24/2024 , Expires: 10/23/2024 Start: 04-30-2024 Advance Directive Discussion Advance Directive Discussion [facility] Start: 04-10-2024 Glaucoma screening Dilated Retinal E xam [facility] Start: 03-26-2024 Annual PCP Team Used [employer] Make Ready Worker kay Disease Visit Annual PCP Team Chronic Disease Visit [facility] Start: 02-14-2024 End: 02-14-2024 Patient encounter procedure 02/14/2024 9:20 AM EDT Office Visit Family [facility] [address] [facility] [place] [id number] César Merrill MD [address] [place] [address] 6 month follow up [facility] Comment on above: 6 month follow up Start: 02-07-2024 Hemoglobin A1c measurement HbA1C [facility] Start: 02-06-2024 Annual PCP Team Used [employer] Make Ready Worker kay Disease Visit Annual PCP Team Chronic Disease Visit [facility] Start: 02-06-2024 BP Controlled (<130/80) BP Controlle d (<130/80) [facility] Start: 02-06-2024 Covid-19 Vaccine (#1) Covid-19 Vacci ne (#1) [facility] Comment on above: Postponed from 08/19 (Declined at this time) Start: 02-06-2024 Covid-19 Vaccine ( season) Covid-19 Vaccine ( season) [facility] Comment on above: Postponed from 12/29 (Declined at this time) Start: 02-06-2024 Hepatitis B Vaccine (1 of 3 - Risk 3-dose series) Hepatitis B Vaccine (1 of 3 - Risk 3-dose series) [facility] Comment on above: Postponed from 02/18 (Declined at this time) Start: 12-30-2023 Covid-19 Vaccine ( season) Covid-19 Vaccine ( season) [facility] Start: 12-30-2023 Influenza vaccination Influenza Vacc ine (#1) [facility] Start: 09-14-2023 End: 12-14-2023 CBC W Auto Differential panel - Blood COMPLETE BLOOD COUNT AND DIFFERENTIAL Lab Routine Vitamin B12 deficiency Expected: 09/14/2023, Expires: 12/14/2023 [facility] Work Phone: Comment on above: Expected: 09/14/2023 , Expires: 12/14/2023 Start: 09-14-2023 End: 12-14-2023 Cobalamin (Vitamin B12) [Mass/volume] in Serum or Plasma VITAMIN B12 Lab Routine Vitamin B12 deficiency Expected: 09/14/2023, Expires: 12/14/2023 [facility] Work Phone: Comment on above: Expected: 09/14/2023 , Expires: 12/14/2023 Start: 08-09-2023 End: 11-08-2023 Cobalamin (Vitamin B12) [Mass/volume] in Serum or Plasma VITAMIN B12 Lab Routine Anemia, unspecified type Expected: 08/09/2023, Expires: 11/08/2023 [facility] Work Phone: Comment on above: Expected: 08/09/2023 , Expires: 11/08/2023 Start: 08-09-2023 End: 11-08-2023 Ferritin [Mass/volume] in Serum or Plasma FERRITIN Lab Routine Anemia, unspecified type Expected: 08/09/2023, Expires: 11/08/2023 [facility] Work Phone: Comment on above: Expected: 08/09/2023 , Expires: 11/08/2023 Start: 08-09-2023 End: 11-08-2023 Folate [Mass/volume] in Serum or Plasma FOLATE, SERUM Lab Routine Anemia, unspecified type Expected: 08/09/2023, Expires: 11/08/2023 [facility] Work Phone: Comment on above: Expected: 08/09/2023 , Expires: 11/08/2023 Start: 08-09-2023 End: 11-08-2023 Iron and Iron binding capacity panel - Serum or Plasma IRON AND TIBC Lab Routine Anemia, unspecified type Expected: 08/09/2023, Expires: 11/08/2023 [facility] Work Phone: Comment on above: Expected: 08/09/2023 , Expires: 11/08/2023 Start: 05-31-2023 3 comp foot exam completed DIABETIC FOOT EXAM [facility] Start: 05-31-2023 ANNUAL PCP TEAM [place] SURVEYOR KAY DISEASE VISIT ANNUAL PCP TEAM CHRONIC DISEASE VISIT [facility] Start: 05-31-2023 Diabetic foot examination Diabetic F oot Exam [facility] Start: 05-31-2023 Hepatitis B screening URINE ALBUMIN:CREATININE RATIO [facility] Start: 05-31-2023 Hepatitis B surface antibody level LDL CHOLESTEROL [facility] Start: 04-14-2023 Patient discharge [facility] Start: 04-13-2023 Continuous pulse oximetry [facility] Start: 04-13-2023 Physiotherapy of chest [facility] Start: 04-13-2023 Inhalation therapy procedure [facility] Start: 04-12-2023 Care regimes management [facility] Start: 04-12-2023 Notification of physician [facility] Start: 04-12-2023 Oxygen therapy [facility] Start: 04-12-2023 Following clinical p athway protocol [facility] Start: 04-12-2023 Admission procedure [facility] Start: 04-12-2023 Application of ice c ollar, cap or bag [facility] Start: 04-12-2023 Application of intermittent pneumatic compression device [facility] Start: 04-12-2023 Catheterization of vein [facility] Start: 04-12-2023 Consultation [facility] Start: 04-12-2023 Following clinical p athway protocol [facility] Start: 04-12-2023 Introduction of urin cas catheter [facility] Start: 04-12-2023 Maintenance of drain age tube [facility] Start: 04-12-2023 Measuring intake and output [facility] Start: 04-12-2023 Neurovascular assessment [facility] Start: 04-12-2023 Patient education [facility] Start: 04-12-2023 Procedure discontinued [facility] Start: 04-12-2023 Provision of activit y privileges [facility] Start: 04-12-2023 Recommendation to co nael with treatment [facility] Start: 04-12-2023 Referral to service [facility] Start: 04-12-2023 Taking patient vital signs [facility] Start: 03-16-2023 Hepatitis C antibody , confirmatory test DILATED RETINAL EXAM [facility] Start: 12-29-2022 Influenza vaccination INFLUENZA (#1) [facility] Start: 11-28-2022 Hemoglobin A1c measurement HbA1C [facility] Start: 11-28-2022 Hemoglobin A1c/Hemoglobin.total in Blood HBA1C [facility] Start: 11-15-2022 ANNUAL PCP TEAM [employer] SURVEYOR KAY DISEASE VISIT ANNUAL PCP TEAM CHRONIC DISEASE VISIT [facility] Start: 11-15-2022 BP CONTROLLED (<130/80) BP CONTROLLE D (<130/80) [facility] Start: 11-15-2022 COVID-19 VACCINE (#1) COVID-19 VACCI NE (#1) [facility] Comment on above: Postponed from 08/19 (Declined at this time) Start: 11-15-2022 Hepatitis B screening URINE ALBUMIN:CREATININE RATIO [facility] Start: 11-15-2022 Hepatitis B surface antibody level LDL CHOLESTEROL [facility] Start: 11-15-2022 SHINGRIX VACCINE (2 of 2) TAM GRIX VACCINE (2 of 2) [facility] Comment on above: Postponed from 12/22 (Insurance Coverage) Start: 09-23-2022 ANNUAL PCP TEAM [employer] SURVEYOR KAY DISEASE VISIT ANNUAL PCP TEAM CHRONIC DISEASE VISIT [facility] Start: 09-23-2022 BP CONTROLLED (<130/80) BP CONTROLLE D (<130/80) [facility] Start: 06-05-2022 FECAL OCCULT BLOOD FECAL OCCULT BLOO D [facility] Start: 06-05-2022 Screening for malign ant neoplasm of colon Fecal Occult Blood [facility] Start: 05-31-2022 End: 07-31-2022 ALBUMIN/CREAT RATIO RND UR [facility] Work Phone: Comment on above: Expected: 05/31/2022 , Expires: 07/31/2022 Start: 05-31-2022 End: 07-31-2022 Hemoglobin A1c in Blood [facility] Work Phone: Comment on above: Expected: 05/31/2022 , Expires: 07/31/2022 Start: 05-31-2022 End: 07-31-2022 Urinalysis complete panel - Urine [facility] Work Phone: Comment on above: Expected: 05/31/2022 , Expires: 07/31/2022 Start: 05-18-2022 Hemoglobin A1c/Hemoglobin.total in Blood HBA1C [facility] Start: 05-12-2022 3 comp foot exam completed DIABETIC FOOT EXAM [facility] Start: 05-12-2022 ANNUAL PCP TEAM [employer] SURVEYOR KAY DISEASE VISIT ANNUAL PCP TEAM CHRONIC DISEASE VISIT [facility] Start: 04-30-2022 ADVANCE DIRECTIVE DISCUSSION ADVANCE DIRECTIVE DISCUSSION [facility] Start: 04-30-2022 DEPRESSION ASSESSMENT DEPRESSION ASS ESSMENT [facility] Start: 02-24-2022 Hepatitis C antibody , confirmatory test DILATED RETINAL EXAM [facility] Start: 12-29-2021 Influenza vaccination INFLUENZA (#1) [facility] Start: 10-27-2021 BP CONTROLLED (<130/80) BP CONTROLLE D (<130/80) [facility] Start: 10-27-2021 COVID-19 VACCINE (#1) COVID-19 VACCI NE (#1) [facility] Comment on above: Postponed from 02/18 (Declined at this time) Start: 10-27-2021 COVID-19 VACCINE (1) COVID-19 VACCIN E (1) [facility] Comment on above: Postponed from 02/18 (Declined at this time) Start: 10-27-2021 Hepatitis B screening URINE ALBUMIN:CREATININE RATIO [facility] Start: 10-27-2021 Hepatitis B surface antibody level LDL CHOLESTEROL [facility] Start: 09-23-2021 End: 11-23-2021 Calcium [Mass/volume] in Serum or Plasma [facility] Work Phone: Comment on above: Expected: 09/23/2021 , Expires: 11/23/2021 Start: 09-23-2021 End: 11-23-2021 PTH INTACT BLD [facility] Work Phone: Comment on above: Expected: 09/23/2021 , Expires: 11/23/2021 Start: 09-19-2021 End: 11-19-2021 Erythrocyte sedimentation rate [facility] Work Phone: Comment on above: Expected: 09/19/2021 , Expires: 11/19/2021 Start: 08-10-2021 Hemoglobin A1c/Hemoglobin.total in Blood HBA1C [facility] Start: 04-30-2021 ADVANCE DIRECTIVE DISCUSSION ADVANCE DIRECTIVE DISCUSSION [facility] Start: 04-30-2021 DEPRESSION ASSESSMENT DEPRESSION ASS ESSMENT [facility] Start: 12-22-2020 SHINGRIX VACCINE (2 of 2) TAM GRIX VACCINE (2 of 2) [facility] Start: 02-19-2020 RSV Vaccine (1 - 1-d ose 75+ series) RSV Vaccine (1 - 1-dose 75+ series) [facility] Start: 08-20-2017 End: 08-20-2017 Appointment Appointment [facility] Work Phone: Start: 07-23-2017 End: 01-23-2017 *Hepatic Function Panel *Hepatic Function Panel [facility] Work Phone: Start: 07-23-2017 End: 01-23-2017 Lipid 1996 panel *Lipid Profile CC PCP [facility] Work Phone: Start: 07-23-2017 End: 01-23-2017 *Hepatic Function Panel *Hepatic Function Panel [facility] Work Phone: Start: 07-23-2017 End: 01-23-2017 Lipid panel [AGGREGATE] *Lipid Profile CC PCP [facility] Work Phone: Start: 01-29-2017 End: 01-29-2017 GREGORY JENKINS [facility] Work Phone: Start: 01-29-2017 End: 01-29-2017 Follow Up Appt 6 months Follow Up Appt 6 months [facility] Work Phone: Start: 01-29-2017 End: 01-29-2017 Appointment Appointment [facility] Work Phone: Start: 01-29-2017 End: 01-29-2017 GREGORY JENKINS [facility] Work Phone: Start: 01-29-2017 End: 01-29-2017 Follow Up Appt 6 months Follow Up Appt 6 months [facility] Work Phone: Start: 01-12-2017 End: 01-22-2017 *Hepatic Function Panel *Hepatic Function Panel [facility] Work Phone: Start: 01-12-2017 End: 01-22-2017 Lipid 1996 panel *Lipid Profile CC PCP [facility] Work Phone: Start: 01-12-2017 End: 01-22-2017 *Hepatic Function Panel *Hepatic Function Panel [facility] Work Phone: Start: 01-12-2017 End: 01-22-2017 Lipid panel [AGGREGATE] *Lipid Profile CC PCP [facility] Work Phone: Start: 07-17-2016 End: 07-17-2016 DJN DJN [facility] Work Phone: Start: 07-17-2016 End: 07-17-2016 Follow Up Appt 6 months Follow Up Appt 6 months [facility] Work Phone: Start: 07-17-2016 End: 07-17-2016 DJN DJN [facility] Work Phone: Start: 07-17-2016 End: 07-17-2016 Follow Up Appt 6 months Follow Up Appt 6 months [facility] Work Phone: Start: 07-12-2016 End: 07-13-2016 *Hepatic Function Panel *Hepatic Function Panel [facility] Work Phone: Start: 07-12-2016 End: 07-14-2016 Lipid 1996 panel *Lipid Profile CC PCP [facility] Work Phone: Start: 07-12-2016 End: 07-13-2016 *Hepatic Function Panel *Hepatic Function Panel [facility] Work Phone: Start: 07-12-2016 End: 07-14-2016 Lipid panel [AGGREGATE] *Lipid Profile CC PCP [facility] Work Phone: Start: 01-19-2016 End: 01-10-2016 *Hepatic Function Panel *Hepatic Function Panel [facility] Work Phone: Start: 01-19-2016 End: 01-10-2016 *Hepatic Function Panel *Hepatic Function Panel [facility] Work Phone: Start: 01-14-2016 End: 01-14-2016 DJN DJN [facility] Work Phone: Start: 01-14-2016 End: 01-14-2016 Follow Up Appt 6 months Follow Up Appt 6 months [facility] Work Phone: Start: 01-14-2016 End: 01-14-2016 DJN DJN [facility] Work Phone: Start: 01-14-2016 End: [...] 07-19-2015 *Hepatic Function Panel *Hepatic Function Panel [facility] Work Phone: Start: 07-26-2015 End: 07-19-2015 Lipid 1996 panel *Lipid Profile CC PCP [facility] Work Phone: Start: 07-26-2015 End: 07-19-2015 *Hepatic Function Panel *Hepatic Function Panel [facility] Work Phone: Start: 07-26-2015 End: 07-19-2015 Lipid panel [AGGREGATE] *Lipid Profile CC PCP [facility] Work Phone: Start: 07-19-2015 End: 07-19-2015 DJN DJN [facility] Work Phone: Start: 07-19-2015 End: 07-19-2015 Follow Up Appt 6 months Follow Up Appt 6 months [facility] Work Phone: Start: 07-19-2015 End: 07-19-2015 DJN DJN [facility] Work Phone: Start: 07-19-2015 End: 07-19-2015 Follow Up Appt 6 months Follow Up Appt 6 months [facility] Work Phone: Start: 01-26-2015 End: 01-26-2015 DJN BONNIEN [facility] Work Phone: Start: 01-26-2015 End: 01-26-2015 Follow Up Appt 6 months Follow Up Appt 6 months [facility] Work Phone: Start: 01-26-2015 End: 01-26-2015 Stress Echocardiogram (treadmill) Stress Echocardiogram (treadmill) [facility] Work Phone: Start: 01-26-2015 End: 01-26-2015 DJN GREGORY [facility] Work Phone: Start: 01-26-2015 End: 01-26-2015 Follow Up Appt 6 months Follow Up Appt 6 months [facility] Work Phone: Start: 01-26-2015 End: 01-26-2015 Stress Echocardiogram (treadmill) Stress Echocardiogram (treadmill) [facility] Work Phone: Start: 01-22-2015 End: 01-25-2015 *Hepatic Function Panel *Hepatic Function Panel [facility] Work Phone: Start: 01-22-2015 End: 01-25-2015 Lipid 1996 panel *Lipid Profile CC PCP [facility] Work Phone: Start: 01-22-2015 End: 01-25-2015 *Hepatic Function Panel *Hepatic Function Panel [facility] Work Phone: Start: 01-22-2015 End: 01-25-2015 Lipid panel [AGGREGATE] *Lipid Profile CC PCP [facility] Work Phone: Start: 07-15-2014 End: 07-20-2014 *Hepatic Function Panel *Hepatic Function Panel [facility] Work Phone: Start: 07-15-2014 End: 07-20-2014 Lipid 1996 panel *Lipid Profile CC PCP [facility] Work Phone: Start: 07-15-2014 End: 07-20-2014 *Hepatic Function Panel *Hepatic Function Panel [facility] Work Phone: Start: 07-15-2014 End: 07-20-2014 Lipid panel [AGGREGATE] *Lipid Profile CC PCP [facility] Work Phone: Start: 01-20-2014 End: 01-20-2014 BONNIEHarry GREGORY [facility] Work Phone: Start: 01-20-2014 End: 01-22-2014 Ecg routine ecg w/least 12 lds w/i&r EKG (In office) [facility] Work Phone: Start: 01-20-2014 End: 01-20-2014 Follow Up Appt 1 year Follow Up Appt 1 year [facility] Work Phone: Start: 01-20-2014 End: 01-20-2014 DJN BONNIEHarry [facility] Work Phone: Start: 01-20-2014 End: 01-22-2014 Electrocardiogram, complete EKG (In office) [facility] Work Phone: Start: 01-20-2014 End: 01-20-2014 Follow Up Appt 1 year Follow Up Appt 1 year [facility] Work Phone: Start: 12-29-2013 End: 01-15-2014 *Hepatic Function Panel *Hepatic Function Panel [facility] Work Phone: Start: 12-29-2013 End: 01-15-2014 Lipid 1996 panel *Lipid Profile CC PCP [facility] Work Phone: Start: 12-29-2013 End: 01-15-2014 *Hepatic Function Panel *Hepatic Function Panel [facility] Work Phone: Start: 12-29-2013 End: 01-15-2014 Lipid panel [AGGREGATE] *Lipid Profile CC PCP [facility] Work Phone: Start: 06-28-2013 End: 07-16-2013 *Hepatic Function Panel *Hepatic Function Panel [facility] Work Phone: Start: 06-28-2013 End: 07-16-2013 Lipid 1996 panel *Lipid Profile CC PCP [facility] Work Phone: Start: 06-28-2013 End: 07-16-2013 *Hepatic Function Panel *Hepatic Function Panel [facility] Work Phone: Start: 06-28-2013 End: 07-16-2013 Lipid panel [AGGREGATE] *Lipid Profile CC PCP [facility] Work Phone: Start: 01-14-2013 End: 01-14-2013 GREGORY JENKINS [facility] Work Phone: Start: 01-14-2013 End: 01-14-2013 Follow Up Appt 1 year Follow Up Appt 1 year [facility] Work Phone: Start: 01-14-2013 End: 01-14-2013 Stress Echocardiogram (treadmill) Stress Echocardiogram (treadmill) [facility] Phone: Start: 01-14-2013 End: 01-14-2013 GREGORY JENKINS [facility] Phone: Start: 01-14-2013 End: 01-14-2013 Follow Up Appt 1 year Follow Up Appt 1 year [facility] Work Phone: Start: 01-14-2013 End: 01-14-2013 Stress Echocardiogram (treadmill) Stress Echocardiogram (treadmill) [facility] Phone: Start: 12-29-2012 End: 01-06-2013 *Hepatic Function Panel *Hepatic Function Panel [employer] Phone: Start: 12-29-2012 End: 01-06-2013 Lipid 1996 panel *Lipid Profile [facility] Phone: Start: 12-29-2012 End: 01-06-2013 *Hepatic Function Panel *Hepatic Function Panel [employer] Phone: Start: 12-29-2012 End: 01-06-2013 Lipid panel [AGGREGATE] *Lipid Profile [facility] [facility] [employer] [facility] Work Phone: Start: 06-25-2012 End: 07-18-2012 *Hepatic Function Panel *Hepatic Function Panel [employer] Phone: Start: 06-25-2012 End: 06-25-2012 Ecg routine ecg w/least 12 lds w/i&r EKG (In office) [facility] Phone: Start: 06-25-2012 End: 06-25-2012 Follow Up Appt 6 months Follow Up Appt 6 months [facility] [employer] Phone: Start: 06-25-2012 End: 07-18-2012 Lipid 1996 panel *Lipid Profile [facility] [employer] Phone: Start: 06-25-2012 End: 07-18-2012 *Hepatic Function Panel *Hepatic Function Panel [facility] Work Phone: Start: 06-25-2012 End: 06-25-2012 Electrocardiogram, complete EKG (In office) [facility] [employer] Phone: Start: 06-25-2012 End: 06-25-2012 Follow Up Appt 6 months Follow Up Appt 6 months [facility] [employer] Phone: Start: 06-25-2012 End: 07-18-2012 Lipid panel [AGGREGATE] *Lipid Profile [facility] [employer] Work Phone: Start: 12-21-2011 End: 01-11-2012 *Hepatic Function Panel *Hepatic Function Panel [facility] [employer] Phone: Start: 12-21-2011 End: 12-21-2011 Follow Up Appt 6 months Follow Up Appt 6 months [facility] [employer] Phone: Start: 12-21-2011 End: 01-11-2012 Lipid 1996 panel *Lipid Profile [facility] [employer] Phone: Start: 12-21-2011 End: 01-11-2012 *Hepatic Function Panel *Hepatic Function Panel [facility] [employer] Phone: Start: 12-21-2011 End: 12-21-2011 Follow Up Appt 6 months Follow Up Appt 6 months [facility] Work Phone: Start: 12-21-2011 End: 01-11-2012 Lipid panel [AGGREGATE] *Lipid Profile [facility] Work Phone: Start: 05-19-2011 End: 05-19-2011 Ecg routine ecg w/least 12 lds w/i&r EKG (In office) [facility] Work Phone: Start: 05-19-2011 End: 05-19-2011 Echocardiography Echocardiogram (complete) [facility] Work Phone: Start: 05-19-2011 End: 05-19-2011 Follow Up Appt 3 months Follow Up Appt 3 months [facility] [employer] [facility] Work Phone: Start: 05-19-2011 End: 05-19-2011 Nuclear stress test -adenosine Nuclear stress test -adenosine [facility] Work Phone: Start: 05-19-2011 End: 05-19-2011 Echocardiography Echocardiogram (complete) [facility] Work Phone: Start: 05-19-2011 End: 05-19-2011 Electrocardiogram, complete EKG (In office) [facility] Work Phone: Start: 05-19-2011 End: 05-19-2011 Follow Up Appt 3 months Follow Up Appt 3 months [facility] [employer] [facility] [facility] Work Phone: Start: 05-19-2011 End: 05-19-2011 Nuclear stress test -adenosine Nuclear stress test -adenosine [facility] Work Phone: Start: 2005 RSV Vaccine (1 - 1-d ose 60+ series) RSV Vaccine (1 - 1-dose 60+ series) [facility] Hemoglobin.gastroint estina l.lower [Presence] in Stool by Immunoassay FECAL OCCULT BLOOD TEST Lab Routine Well adult exam Screening for colon cancer Ordered: 05/31/2022 [facility] Work Phone: Comment on above: Ordered: 05/31/2022 Hemoglobin.gastroint estina l.lower [Presence] in Stool by Immunoassay IMMUNOCHEMICAL FECAL OCCULT BLOOD TEST Lab Routine Screening for colon cancer Ordered: 08/08/2023 [facility] Work Phone: Comment on above: Ordered: 08/08/2023 [facility] W str ess and W radionuclide IV [facility] OXIMETRY - NOCTURNAL OXIMETRY - NOCTURNAL Procedures Routine Pneumonia due to COVID-19 virus Ordered: 04/10/2022 [facility] Work Phone: Comment on above: Ordered: 04/10/2022 End: 05-18-2024 OXIMETRY WITH AMBULATION OXIMETRY WITH AMBULATION PFT Routine Hypoxemia 1 Occurrences starting 04/19/2023 until 05/18/2024 [facility] Work Phone: Comment on above: 1 Occurrences starti ng 04/19/2023 until 05/18/2024 Patient Education [facility] Work Phone: Patient referral [facility] Work Phone: End: 07-24-2025 US Lower extremity artery - bilateral [facility] Vascular Lab Routine Cyanosis Diminished pulses in lower extremity 1 Occurrences starting 07/24/2024 until 07/24/2025 [facility] Comment on above: 1 Occurrences starti ng 07/24/2024 until 07/24/2025 [facility] Immunizations Immunization Date Immunization Notes Care Provider [facility] 02-14-2024 influenza, high dose seasonal, preservative-free César Merrill MD Work Phone: [facility] 02-14-2024 zoster vaccine recombinant César Merrill MD Work Phone: [facility] 02-05-2023 influenza (HD-IIV4) vaccine, age 65+ yr, high dose, quadrivalent, PF (FLUZONE HIGH-DOSE) César Merrill MD Work Phone: [facility] 02-05-2023 influenza virus vacc ine, unspecified formulation [facility] Work Phone: [facility] 05-31-2022 influenza, high-dose , quadrivalent vaccine (FLUZONE HIGH DOSE QUADRIVALENT) César Merrill MD Work Phone: [facility] 03-07-2021 influenza, high-dose , quadrivalent vaccine (FLUZONE HIGH DOSE QUADRIVALENT) César Merrill MD Work Phone: [facility] 06-30-2021 tetanus toxoid, redu silva diphtheria toxoid, and acellular pertussis vaccine, adsorbed César Merrill MD Work Phone: [facility] 10-27-2020 zoster vaccine recombinant César Merrill MD Work Phone: [facility] 02-25-2019 influenza, high dose seasonal, preservative-free César Merrill MD Work Phone: [facility] 02-22-2018 influenza, high dose seasonal, preservative-free César Merrill MD Work Phone: [facility] 04-12-2017 influenza, injectabl e, quadrivalent, contains preservative César Merrill MD Work Phone: [facility] 12-06-2015 pneumococcal polysaccharide vaccine, 23 valent César Merrill MD Work Phone: [facility] 11-24-2014 pneumococcal conjuga te vaccine, 13 valent César Merrill MD Work Phone: [facility] 10-22-2013 measles, mumps and rubella virus vaccine César Merrill MD Work Phone: [facility] Work Phone: 09-03-2013 measles, mumps and rubella virus vaccine César Merrill MD Work Phone: [facility] Work Phone: 01-24-2010 influenza virus vacc ine, unspecified formulation César Merrill MD Work Phone: [facility] 05-22-2008 tetanus toxoid, redu silva diphtheria toxoid, and acellular pertussis vaccine, adsorbed César Merrill MD Work Phone: [facility] Work Phone: 02-28-1998 pneumococcal polysaccharide vaccine, 23 valjing Merrill MD Work Phone: [facility] Payers Date Payer Category Payer Unknown [id number] 2024 Unknown [id number] 2024 Self-pay [id number] Unknown [id number] Unknown [id number] 2.16.8 [id number] Unknown [id number] 2.16.8 [id number] Unknown [id number] 2.16.8 [id number] Unknown [id number] 2.16.8 [id number] Unknown [id number] 2.16.8 [id number] Unknown [id number] 2.16.8 [id number] Unknown [id number] 2.16.8 [id number] Social History Date Type Detail Facility Start: 03-07-2021 End: 03-16-2023 Tobacco smoking status [facility] Ex-smoker [facility] Start: 1963 End: 07-29-1997 History of tobacco use Current smoker [facility] Start: 05-12-2021 End: 08-22-2024 Alcohol intake Current non-drinker of alcohol (finding) [facility] Start: 1945 Sex Assigned At Not on file [facility] Start: 07-14-2021 End: 03-16-2023 Tobacco smoking status [facility] Unknown if ever smoked [facility] Start: 1945 Sex Assigned At Male [facility] Start: 01-12-2021 End: 11-15-2021 Exposure to SARS-CoV-2 (event) Not sure [facility] Work Phone: Start: 1963 End: 07-29-1997 History of tobacco use Cigarette Smoker [facility] Work Phone: Start: 03-07-2021 End: 02-14-2024 Tobacco use and exposure Former smokeless tobacco user [facility] Work Phone: Start: 05-31-2022 End: 02-05-2023 History of Social function [facility] Work Phone: Start: 05-31-2022 End: 02-05-2023 Tobacco use panel [facility] Work Phone: Adult Depression Screening Assessment 0 [facility] Work Phone: Medical Equipment Procedure Code Equipment Code Equipment Original Text Equipment Identifier Dates [id number] FDA Start: 04-12-2023 SCREW FDA Start: 04-12-2023 [...] Start: 04-12-2023 Collagen haemost atic agent, non-antimicrobial ()[id number] FDA Start: 04-12-2023 Collagen haemost atic agent, non-antimicrobial ()[id number] FDA Start: 04-12-2023 Plant polysaccha ride haemostatic agent, bioabsorbable ()[id number] FDA Start: 04-12-2023 PUTTY,BONE DBM 5 CC TIJERINA FDA Start: 04-12-2023 AMNA FDA Start: 04-12-2023 AMNA FDA Start: 04-12-2023 SCREW FDA Start: 04-12-2023 SCREW FDA Start: 04-12-2023 SCREW FDA Start: 04-12-2023 SCREW FDA Start: 04-12-2023 [id number] FDA Start: 04-12-2023 SCREW FDA Start: 04-12-2023 [...] FDA Start: 04-12-2023 SCREW FDA Start: 04-12-2023 [id number] FDA Start: 04-12-2023 SCREW FDA Start: 04-12-2023 [...] Facility 04-14-2023 Functional status Patient Activity Chair [facility] Work Phone: 04-14-2023 Functional status With Assist of 1 [facility] Work Phone: 11-24-2014 Are you deaf, or do you have serious difficulty hearing Yes 11/24/2014 8:22 AM Bryn Oneil LPN Yes [facility] 11-24-2014 Are you blind, or do you have serious difficulty seeing, even when wearing glasses No 11/24/2014 8:22 AM Bryn Oneil LPN No [facility] 11-24-2014 Do you have serious difficulty walking or climbing stairs No 11/24/2014 8:22 AM Bryn Oneil LPN No [facility] 11-24-2014 Do you have difficul ty dressing or bathing No 11/24/2014 8:22 AM Bryn Oneil LPN No [facility] 11-24-2014 Because of a physica l, mental, or emotional condition, do you have difficulty doing errands alone such as visiting a physician's office or shopping No 11/24/2014 8:22 AM Bryn Oneil LPN No [facility] Mental Status Date Assessment Result Facility 04-14-2023 Cognitive function Voice/Name [facility] Work Phone: 11-24-2014 Because of a physica l, mental, or emotional condition, do you have serious difficulty concentrating, remembering, or making decisions No 11/24/2014 8:22 AM Bryn Oneil LPN No [facility] Clinical Notes 07-29-1997 to 10-17-2024 Diamond Cain MA - 10/17/2024 1:51 PM EDTTelephone Encounter - Tamera Yeung - 10/14/2024 2:21 PM EDTTelephone Encounter - Tamera Yeung - 10/14/2024 2:21 PM EDT Note Date & Type Note Facility 10-17-2024 Note HNO ID: [id number] Author: DIAMOND CAIN MA Service: ? Author Type: Dock Manager Type: Progress Notes Filed: 10/17/2024 13:51 Note Text: Scan on 10/03/2024 8:33 AM by ProviderTori PA-C: Chemistry Scan on 10/05/2024 6:29 AM by Tori Meredith PA-C: CT Scan Diamond Cain MA [facility] 10-17-2024 History of Presen t illness Narrative Scan on 10/03/2024 8:33 AM by ProviderTori PA-C: Chemistry Scan on 10/05/2024 6:29 AM by ProviderTori PA-C: CT Scan Diamond Cain MA documented in this encounter [facility] 10-14-2024 Telephone encounter Note Patient son calling back for message. The message was read and patient son will call the heart group for the heart medication [facility] 10-14-2024 Miscellaneous Notes Patient son calling [...] you. Zita Patel. documented in this encounter [facility] 10-14-2024 Telephone encounter Note Patient has refills on Losartan and gets his atenolol through [facility]. Diamond Cain MA Left message for patient's EC . Diamond Cain MA' [facility] 10-14-2024 Telephone encounter Note Prescription Refill [...] Cain MA October 14, 2024 11:10 AM [facility] 10-14-2024 Miscellaneous Notes Prescription Refill Information [...] you. Zita Patel. documented in this encounter [facility] 10-14-2024 Telephone encounter Note Patient has [...] 01/27/2025 Please advise. Thank you. Zita Patel. [facility] 10-14-2024 Telephone encounter Note Patient has [...] 01/27/2025 Please advise. Thank you. Zita Patel. [facility] 10-05-2024 Radiology Diagnostic study note [facility] Services [address] [address] CTA Abd w/Runoff W/WO Contrast MR#: [id number] Acct: [id number] Name: KATHARINE CANO Rep #: [id number] : 1945 M 79 From: Salazar Goldberg MD PCP: Dr. César Merrill MD Status: REG CLI Study:CTA Abd w/Runoff W/WO Contrast Date of Exam: 10/03/24 Exam# [id number] Ordering Dr: Kyrie Rush ison PA PROCEDURE: CTA ABD W/RUNOFF W/WO CONTRAST [...] Contrast IMPRESSION: Atherosclerosis. Multifocal stenosis. Reading Location: [place] [address] CC: STEPHEN Toth; Dr. César Merrill MD ~ Manager Drive: Signed [facility] 09-10-2024 Telephone encounter Note The following [...] once daily. Authorizing Provider: CÉSAR MERRILL MD [facility] 09-10-2024 Miscellaneous Notes The following approved [...] 2024 11:56 AM documented in this encounter [facility] 09-10-2024 Telephone encounter Note Prescription Refill [...] Higginbotham LPN September 10, 2024 2:52 PM [facility] 09-10-2024 Telephone encounter Note Prescription Refill [...] Sissy Figueroa September 10, 2024 11:56 AM [facility] 09-02-2024 Note HNO ID: [id number] Author: DEMARCUS HIGGINBOTHAM LPN Service: ? Author Type: LICENSED NURSE Type: Progress Notes Filed: 09/02/2024 14:59 Note Text: Scan on 09/02/2024 9:55 AM by ProviderTori PA-C: Consultation - Vascular Medicine/Vascular Surgery [facility] 09-02-2024 History of Presen t illness Narrative Scan on 09/02/2024 9:55 AM by Provider, YURIDIA Valle: Consultation - Vascular Medicine/Vascular Surgery documented in this encounter [facility] 07-31-2024 Telephone encounter Note Reviewed message with Adelaida and he voiced understanding. Valerie Johnson LPN [facility] 07-31-2024 Miscellaneous Notes Reviewed message with [...] 80mg daily that was originally prescribed through [facility]. Last visit with them on [...] Jeannette Oliveira RN documented in this encounter [facility] 07-31-2024 Telephone encounter Note With LDL above 70 I would recommend he switch to the Atorvastatin 40 mg daily. [facility] 07-31-2024 Telephone encounter Note Spoke with [...] Please review and advise. Norma Anderson LPN [facility] 07-31-2024 Telephone encounter Note Patient is already on Actos and Glimepiride. Cannot tolerate metformin due to diarrhea. Can we initiate PA for this medication? If not, would have patient check with insurance to see if they have list of covered alternatives. [facility] 07-31-2024 Telephone encounter Note Patient's son Adelaida calls and states that Farxiga is too expensive for patient. Atlee asking for different medication to be called into pharmacy. Please review and advise, Jeannette Oliveira RN [facility] 07-30-2024 Telephone encounter Note Patient's son aware. Valerie Johnson LPN [facility] 07-30-2024 Miscellaneous Notes Patient's son aware. [...] is no longer on the simvastatin per [facility]. If so I would suggest we put him on atorvastatin 40 mg a day. His B12 was on the low end of normal so I would advise getting back on Vit B12 1000 mcg but just one a day. All other labs and urine testing were ok. documented in this encounter [facility] 07-30-2024 Telephone encounter Note Rx sent as requested. Call if unable to afford farxiga. [facility] 07-30-2024 Telephone encounter Note Patient's son, [...] Vit B12 as advised. Mee Shi RN [facility] 07-26-2024 Telephone encounter Note Left message for pt to contact office. Demarcus Higginbotham LPN [facility] 07-25-2024 Telephone encounter Note Let patient [...] other labs and urine testing were ok. T [facility] 07-24-2024 History of Presen t illness [...] - LIPID PANEL, NONFASTING 6. Atherosclerosis of [place] coronary artery of [place] heart without angina pectoris - ICD9: 414.01, [...] which included preparing to see the patient, [id number] patient care, completing clinical documentation, performing a medically appropriate examination, counseling and educating the patient/family/caregiver and ordering medications, tests, or procedures. César Merrill MD SENSITIVE EXAMINATION CONSENT: The sensitive examination was discussed with the Patient or Patient's Authorized Fire Apparatus Engineer. As applicable, any other physician, advance practice provider, medical student, or other health professional student that will be observing or involved in the sensitive examination for educational or training purposes was discussed with the Patient or Authorized Fire Apparatus Engineer. The Patient or Authorized Fire Apparatus Engineer has agreed to proceed with the sensitive examination. documented in this encounter [facility] 07-24-2024 Note HNO ID: [id number] Author: CÉSAR MERRILL MD Service: ? Author [...] med refills. Seeing Dr. Castro with [facility] for his hip pains. Patient had run [...] without long-term current use of insulin ([facility]) 08/14/2017 Previous Surgical History PAST SURGICAL HISTORY [...] History Tobacco Use (more content not included)... [facility] 07-24-2024 Instructions César Merrill MD - 07/24/2024 8:38 AM EDT Please bring in copies of your power of tax associate attorney for health care and living will. Please get back on the B12 1000 mcg 1.5 tabs a day. documented in this encounter [facility] 07-18-2024 Telephone encounter Note Noted. [facility] 07-18-2024 Miscellaneous Notes Noted. Love from [facility] pharmacy in [place] calling in for refills for pt. She [...] Simvastatin correctly. Atenolol and Simvastatin prescribed by [facility]. Pt is set up for a physical on 08/12 with Katarzyna Munson. Pt is Yazdanism and needs financially cleared for appt. Attempted to call pt and son Adelaida answered the phone and said pt is unavailable. Discussed with son about how pt is taking his medications and that perhaps we need to bring him in sooner for an appt to discuss med compliance. Son agreeable to this. documented in this encounter [facility] 07-18-2024 Telephone encounter Note Love from [facility] [place] [facility] in [place] calling in for refills for pt. She [...] Simvastatin correctly. Atenolol and Simvastatin prescribed by [facility]. Pt is set up for a physical on 08/12 with Katarzyna Munson. Pt is Yazdanism and needs financially cleared for appt. Attempted to call pt and son Adelaida answered the phone and said pt is unavailable. Discussed with son about how pt is taking his medications and that perhaps we need to bring him in sooner for an appt to discuss med compliance. Son agreeable to this. [facility] 07-10-2024 Evaluation note Diagnosis Onset Date Resolution Essential hypertension acute [facility] 2024 9:26am Atherosclerotic heart disease of [place] coronary artery without angina pectoris chronic July 10, 2024 9:26am Hyperlipidemia chronic June 9:26am PAOD (peripheral arterial occlusive disease) acute August 29, 2024 10:57am [facility] Work Phone: 1(209) 832-465103-13-2025 Evaluation note* Diagnosis Onset Date Resolution Status Admit Date Essential hypertension acute [facility] 2024 9:26am Atherosclerotic heart diseas e of [place] coronary artery without angina pectoris chronic July 10, 2024 9:26am Hyperlipidemia chronic June 9:26am PAOD (peripheral arterial occlusive disease) acute August 29, 2024 10:57am Atherosclerosis of [place] arteries of extremities with rest pain, bilateral chronic October 09, 2024 2:55pm [facility] Work Phone: 1(787) 716-987303-13-2025 Evaluation note* Diagnosis Onset Date Resolution Status Admit Date Essential hypertension acute [facility] 2024 9:26am Atherosclerotic heart diseas e of [place] coronary artery without angina pectoris chronic July 10, 2024 9:26am Hyperlipidemia chronic June 9:26am PAOD (peripheral arterial occlusive disease) acute August 29, 2024 10:57am Atherosclerosis of [place] arteries of extremities with rest pain, bilateral chronic October 09, 2024 2:55pm Essential hypertension acute 2024 10:17am Preop cardiovascular exam acute October 29, 2024 10:17am Atherosclerotic heart diseas e of [place] coronary artery without angina pectoris chronic October 29, 2024 1 0:17am Hyperlipidemia chronic October 29, 2024 10:17am [facility] Work Phone: 1(704) 457-454903-07-2025 NoteHNO ID: [id number] Author: DEMARCUS HIGGINBOTHAM LPN Service: ? Author Type: LICENSED NURSE Type: Progress Notes Filed: 07/04/2024 08:36 Note Text: Scan on 07/04/2024 7:19 AM by ProviderTori PA-C: [facility] History of Present illness Narrative* Demarcus Higginbotham LPN - 07/04/2024 8:24 AM EST Scan on 07/04/2024 7:19 AM by Provider, YURIDIA Valle: Consultation - Ophthalmology [facility]-2025 NoteHNO ID: [id number] Author: DEYSI CAIN APRN.RUFFLER Service: ? Author Type: Nurse Practitioner Type: [...] 07/29/1997 Years since quitting: (more content not included)...[facility] 06-10-2024 History of Present illness Narrative* Deysi Cain APRN.RUFFLER - 06/10/2024 1:43 PM EST CC: Patient [...] Patient agreeable to treatment plan. Deysi Cain APRN.RUFFLER [facility] Telephone encounter Note * Telephone Encounter - Demarcus Higginbotham LPN - 02/15/2024 11:46 AM EDT Left message of pt and pt's results on pt's vm. Demarcus Higginbotham LPN [facility]10-18-2024 Miscellaneous Notes* Telephone Encounter - Demarcus Higginbotham LPN - 02/15/2024 11:46 AM EDT Left message of pt and pt's results on pt's vm. Demarcus Higginbotham LPN * Telephone Encounter - César Merrill MD - 02/15/2024 10:03 AM EDT Let Katharine know that his recent labs along with his 's recent labs were ok. [facility]10-[facility] Telephone encounter Note * Telephone Encounter - César Merrill MD - 02/15/2024 10:03 AM EDT Let Katharine know that his recent labs along with his 's recent labs were ok. [facility]10-17-2024 History of Present illness Narrative* César [...] Influenza Vaccine(1) due on 12/30/2023 Covid-19 Vaccine( - season) Never done HbA1C due on 02/07/2024 [...] diet and regular exercise 5. Atherosclerosis of [place] coronary artery of [place] heart without angina pectoris - ICD9: 414.01, [...] extensive. César Merrill MD documented in [facility]10-[facility]-2024 NoteHNO ID: [id number] Author: CÉSAR MERRILL MD Service: ? Author [...] diarrhea and N (more content not included)... [facility]05-17-2024 Telephone encounter Note* Telephone Encounter - Zohreh Hughes RN - 09/14/2023 2:48 PM EDT Teto Son returns the call and is notified of Dr. Merrill's instructions. He verbalizes understanding. [facility]05-17-2024 Miscellaneous Notes* Telephone Encounter - Zohreh [...] mcg once a day. documented in this encounterProv[facility]05-17-2024 Telephone encounter Note * Telephone Encounter - Natalie Hebert LPN - 09/14/2023 1:16 PM EDT Left message to contact office for results. [facility]05-17-2024 Telephone encounter Note* Telephone Encounter - César Merrill MD - 09/14/2023 12:51 PM EDT Let patient (or since he has dementia) know his hemoglobin was back into a normal range. His B12 is improved but not wear it needs to be. He needs to increase his Vit B12 to 1500 mcg once a day. [facility]04-18-2024 Miscellaneous Notes* Telephone Encounter - Jeannette [...] repeated in a month. documented in [facility] encounterProv[facility]04-15-2024 Miscellaneous Notes* Telephone Encounter - Jeannette [...] labs to further evaluate. documented in [facility]Prov[facility]04-10-2024 Instructions* Patient Instructions* César Merrill MD - 08/08/2023 9:43 AM EDT Consider getting the shingrix vaccine for prevention of shingles, and RSV vaccine from a local pharmacy or the health dept Please bring in copies of your power of tax associate attorney for health care and living will. documented in [facility] encounterProv[facility]04-10-2024 History of Present illness Narrative* César [...] for pulmonary last visit 03/2023 Patient sees [facility] 03/2023 Patient sees Ophthalmology last [...] loss. BMI 37.69 kg/(m^2) 6. Atherosclerosis of [place] coronary artery of [place] heart without angina pectoris - ICD9: 414.01, [...] which included preparing to see the patient, bslw-[id number] patient care, completing clinical documentation, performing a medically appropriate examination, counseling and educating the patient/family/caregiver and ordering medications, tests, or procedures. César Merrill MD documented in this [facility]12-21-2023 Instructions* Patient Instructions* May Ragland MD - 04/19/2023 10:20 AM EST Use inhaler for SOB Oxygen reassessment documented in this encounterCleveland [id number] History of Present illness Narrative* May Ragland MD - 04/19/2023 10:00 AM EST Images from the original note were not included. . [facility] [place] Note Patient name: Katharine Cano PCP: César [...] had at L3-5 laminectomy with spinal fusion [facility] 04/22/23 with postoperative note of hypoxemia down [...] 89%. DME: [employer] DATA: Reviewed EMR from [facility] Imaging / Diagnostic Studies: 03/20/23 STUDY: X-RAY [...] acute cardiopulmonary disease. Reviewed portable CXR from [facility] which shows poor lung volumes but no [...] Cancer Sister renal Kidney Disease Brother other (Lvaon's) Brother Cancer Brother Coronary Artery Disease Paternal [...] of mild fibrosis May Ragland MD [facility] [place] documented in this encounterProvidence Hospital12-16-2023 Progress note Author Lenore Robledo [facility] April 14, 2023 11:28am Note Date/Time April 14, 2023 11:28am [facility] Medical Records Department [address] [place] [address] Progress Note - Hospitalist 04/14/23 1124 MR#: [id number] Acct: [id number] Name: JEROMEKATHARINE Rep #:[id number] : 1945 78 From: Lenore Robledo DO PCP: Dr. César Merrill MD Status:ADM REESE Location: [address] Reason for Visit Reason for Visit: Chronic back pain Subjective Subjective No issues overnight. Patient remains on 2 L nasal cannula and with ambulation did well with 2 L however at rest with no oxygen his oxygen saturation was 87%. He indicates he is followed with Dr. May Ragland over at [facility] previously and will do so after discharge. He is anxious to go home and would be willing to doso on oxygen if needed. 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 Charges/Coding Visit Charges Inpatient E&M: 39754 Subs Hosp L2 04/14/23 1128 <Electronically signed by Lenore Robledo DO> Cosigner Signature (if applicable): CC: ~ Signed [facility] Work Phone: 1(247) 666-592012-15-2023 Progress note Author Lenore Robledo [facility] April 13, 2023 10:53am Note Date/Time April 13, 2023 7:24am [facility] Medical Records Department [address] [place] [address] Progress Note - Hospitalist 04/13/23717 MR#: [id number] Acct: [id number] Name: KATHARINE CANO Rep #:[id number] : 1945 78 From: Lenore Robledo DO PCP: Dr. César Merrill MD Status:ADM REESE Location: [facility] [id number] Reason for Visit Reason for Visit: Lumbar [...] distress and well nourished Constitutional Narrative: Older, Yazdanism, white male, sitting up in bed, family [...] 24 hours Charges/Coding Visit Charges Inpatient E&M: 52779 Subs Hosp L2 04/13/23 1054 <Electronically signed by Lenore Robledo DO> Cosigner Signature (if applicable): CC: ~ Signed [facility] Work Phone: 1(526) 132-490912-15-2023 Progress note [facility] April 13, 2023 6:45am Note Date/Time April 13, 2023 6:45am [facility] Medical Records Department [address] [place] [address] Progress Note - Orthopedic 04/13/2343 MR#: [id number] Acct: [id number] Name: KATHARINE CANO Rep #:[id number] : 1945 78 From: César Martin PCP: Dr. César Merrill MD Status:ADM REESE Location: [facility]3 [id number] Subjective Subjective Seen and examined postop day [...] Cosigner Signature (if applicable): CC: ~ Signed [facility] Work Phone: 1(254) 808-198112-15-2023 Progress note Author César Tijerina [facility] April 13, 2023 6:43am Note Date/Time April 12, 2023 8:06am [facility] Medical Records Department [address] [place] [address] Progress Note - Orthopedic 04/12/23805 MR#: [id number] Acct: [id number] Name: KATHARINE CANO Kamar Rep #:[id number] : 1945 78 From: César Martin PCP: Dr. César Merrill MD Status:ADM REESE Location: [place] [address] Subjective Subjective Seen and examined postop. Resting [...] Cosigner Signature (if applicable): CC: ~ Signed [facility] Work Phone: 1(320) 789-332112-14-2023 Progress note Author Gogo Santizo [facility] April 12, 2023 6:13pm Note Date/Time April 12, 2023 6:13pm [facility] Medical Records Department [facility] [place] [address] Progress Note - Hospitalist 04/12/23 1806 MR#: [id number] Acct: [id number] Name: KATHARINE CANO Rep #:[id number] : 1945 78 From: Gogo Santizo MD PCP: Dr. César Merrill MD Status:ADM REESE [facility] Reason for Visit Reason for Visit: Diagnoses Spinal stenosis, lumbar region without neurogenic claudication (04/12/23) Encounter for other preprocedural examination (04/12/23) Subjective Subjective 78-year-old male history of coronary artery disease status post stenting, lumbarstenosis, type 2 diabetes, hypertension presented to [facility] 04/12/2023 for lumbar stenosis requiring L3-5 [...] documentation, 35minutes Charges/Coding Visit Charges Inpatient E&M: 82073 Subs Hosp L2 04/12/231812 <Electronically signed by Gogo Santizo MD> Cosigner Signature (if applicable): CC: ~ Signed [facility] Work Phone: 1(447) 602-638412-14-2023 Procedure [facility] 04-10-2023 History of Present illness Narrative* Demarcus Higginbotham LPN - 04/10/2023 2:26 PM EST Scan on 04/10/2023 10:15 AM by Provider, YURIDIA Valle: Consultation - Ophthalmology documented in this encounterProv[facility]11-27-2023 History of Present illness Narrative* JeromeMelody APRN.RUFFLER - 03/26/2023 12:09 PM EST Chief Complaint [...] for surgery from my standpoint. Melody Cano APRN.RUFFLER documented in this encounterProvidence Hospital11-22-2023 Miscellaneous Notes* Telephone Encounter - Mary Worthington - 03/21/2023 2:45 PM EST Pre-op form received. Mary Worthington * Telephone Encounter - Demarcus Higginbotham LPN - 03/15/2023 3:26 PM EST Received pre -op forms form Mahin Lara. Pt has appointment with Melody Cano 03/26. Forms placed in her mailbox. Demarcus Higginbotham LPN documented in this encounterProvidence Hospital07-15-2023 Miscellaneous Notes* Telephone Encounter - César [...] have refills of metformin left at pharm. [facility] 05/31/22 NOV none scheduled. Was canceled by [...] notify patient. Elvia Condon documented in this encounterProvidence Hospital04-11-2023 Miscellaneous Notes* Telephone Encounter - César [...] notify patient. Shima Ramon documented in this encounterProvidence Hospital03-09-2023 History of Present illness Narrative* Diamond Cain MA - 07/06/2022 2:55 PM EST Scan on 07/04/2022 11:06 AM by External Provider: Consultation - Cardiology Scan on 07/04/2022 11:54 AM by External Provider: Chemistry Diamond Cain MA documented in this encounterProvidence Hospital02-01-2023 Instructions* Patient Instructions* César Merrill MD - 05/31/2022 8:12 AM EST Please bring in copies of your living ramos and durable power of tax associate attorney for health care. documented in this encounterProvidence Hospital02-01-2023 History of Present illness Narrative* César Merrill MD - 05/31/2022 7:46 AM EST Chief Complaint Patient presents with: Physical HPI Katharine Cnao is a 77 year old male who [...] BMI 36.94 kg/(m^2) - Patient was counseled [id number]-oeel by myself (the billing provider) for the [...] - LIPID PANEL, NONFASTING 6. Atherosclerosis of [place] coronary artery of [place] heart without angina pectoris - ICD9: 414.01, [...] routine César Merrill MD documented in this encounterProvidence Hospital01-09-2023 Miscellaneous Notes* Telephone Encounter - Diamond [...] notify patient. Shima Ramon documented in this encounterProvidence Hospital12-12-2022 Miscellaneous Notes* Telephone Encounter - Mary Portillo LPN - 04/10/2022 10:54 AM EST Order for overnight oximetry faxed to Steve. Mary Portillo LPN * Telephone Encounter - Meggan Milligan PA-C - 04/10/2022 10:52 AM EST Printed order for nocturnal oximetry on RA with CPAP. Please FAX to Steve. Meggan Milligan PA-C * Telephone Encounter - Mary Portillo LPN - 04/05/2022 10:03 AM EST [facility] 03/2021. Patient was requiring 2L at night. Mary Portillo LPN * Telephone Encounter - Karina Mcdonough LPN - 04/05/2022 9:56 AM EST [place], patients son, called. Verified name and date of of patient. 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 Karina Mcdonough LPN documented in this encounterProvidence Hospital10-14-2022 Miscellaneous Notes* Telephone Encounter - Diamond [...] refill; 07/2021 * Telephone Encounter - Jada Newton [facility] - 02/10/2022 9:38 AM EDT Patient has [...] advise. Jada Newton Pss documented in this encounterProvidence Hospital07-21-2022 Miscellaneous Notes* Telephone Encounter - May [...] him with her dementia) documented in this encounterProvidence Hospital07-19-2022 History of Present illness Narrative* César [...] Cancer Sister renal Kidney Disease Brother other (Laovn's) Brother Cancer Brother Coronary Artery Disease Paternal [...] D2 ORAL) Take 2,000 Units by mouth. Iscomndtttv-Gzpjtkjli-Xmi C-Mn (GLUCOSAMINE CHONDROITIN MAXSTR) 500-400 mg cap Take 1 capsule by mouth twice daily. simvastatin (ZOCOR) 80 mg tablet Take 1 tablet by mouth daily at bedtime. Per Dr. Barba Cinnamon Bark (CINNAMON) 500 mg cap Take 500 mg by mouth. Kqozacjmokppq-Zoifnjho-Knlwqa (CENTRUM SILVER) Tab Take 1 tablet by [...] Abs Lymph 1.00 - 4.00 k/uL 1.68 Woodford% % 11.5 Abs Woodford <0.87 k/uL 0.62 Eosin% % 3.9 Abs [...] - Continue current therapy. 5. Atherosclerosis of [place] coronary artery of [place] heart without angina pectoris - ICD9: 414.01, [...] PE César Merrill MD documented in this encounterProvidence Hospital05-31-2022 Miscellaneous Notes* Telephone Encounter - Demarcus Higginbotham LPN - 09/27/2021 8:46 AM EDT Pt's son advised of results. Demarcus Higginbotham LPN * Telephone Encounter - Katarzyna Munson PA-C - 09/27/2021 7:30 AM EDT Repeat calcium level is normal. Katarzyna Munson PA-C documented in this encounterProvidence Hospital05-27-2022 Instructions* Patient Instructions* Katarzyna Munson PA-C - 09/23/2021 11:21 AM EDT Repeat calcium labs today. Follow up as scheduled in October. Return sooner as needed. documented in this encounterProvidence Hospital05-27-2022 History of Present illness Narrative* Katarzyna Munson PA-C - 09/23/2021 11:14 AM EDT Chief Complaint Patient presents with: Recheck: labs done [facility] HPI Katharine Cano is a 76 year old male who presents here today for Above Complaints.. Patient was seen in express care on 09/19/21 for abdominal pain/nausea. Symptoms at [...] D2 ORAL) Take 2,000 Units by mouth. Kklphaacbqf-Slpyyzvwh-Bqe C-Mn (GLUCOSAMINE CHONDROITIN MAXSTR) 500-400 mg cap Take 1 capsule by mouth twice daily. simvastatin (ZOCOR) 80 mg tablet Take 1 tablet by mouth daily at bedtime. Per Dr. Braba Cinnamon Bark (CINNAMON) 500 mg cap Take 500 mg by mouth. Ygqjcpllsudyj-Ttoccavf-Qwyyst (CENTRUM SILVER) Tab Take 1 tablet by [...] Abs Lymph 1.00 - 4.00 k/uL 2.18 Woodford% % 10.7 Abs [place]ford <0.87 k/uL 0.80 Eosin% % 1.2 Abs [...] prior. Katarzyna Munson PA-C documented in this encounterProvidence Hospital05-24-2022 Miscellaneous Notes* Telephone Encounter - Zahra Currie LPN - 09/20/2021 7:53 AM EDT Left message on cell phone with results and recommendations-home number is a work number and he wasnot there today.Zahra Currie LPN * Telephone Encounter - Tiff Meadows APRN.CNP - 09/19/2021 7:52 PM EDT Sed rate [...] keep his appointment tomorrow. documented in this encounterProvidence Hospital05-23-2022 History of Present illness Narrative* César Ghotra APRN.COCO - 09/19/2021 10:05 AM EDT Subjective HPI [...] D2 ORAL) Take 2,000 Units by mouth. Rbazprczkmr-Roozkyuyb-Wkg C-Mn (GLUCOSAMINE CHONDROITIN MAXSTR) 500-400 mg cap Take 1 capsule by mouth twice daily. simvastatin (ZOCOR) 80 mg tablet Take 1 tablet by mouth daily at bedtime. Per Dr. Barba Cinnamon Bark (CINNAMON) 500 mg cap Take 500 mg by mouth. Loayzqnkyfuzv-Eqlbcaii-Jakmsw (CENTRUM SILVER) Tab Take 1 tablet by [...] ofcare. César Ghotra APRN.COCO documented in this encounterProvidence Hospital04-12-2022 Miscellaneous Notes* Telephone Encounter - César [...] notify patient. Elvia Condon documented in this encounterProvidence Hospital03-24-2022 History of Present illness Narrative* Demarcus Higginbotham LPN - 07/21/2021 9:35 AM EDT Scan on 07/21/2021 9:08 AM by External Provider: Chemistry documented in this [facility]02-28-2022 Miscellaneous Notes* Telephone Encounter - Catarina [...] patient. Catarina Calvert Pss documented in this [facility]10-15-2021 History of Present illness Narrative* Christine [...] 11, 2021 2:06 PM documented in this encounterProvidence Hospital04-01-1998 Evaluation note* Diagnosis Onset Date Resolution Status Essential hypertension acute Atherosclerotic heart diseas e of [place] coronary artery without angina pectoris chronic Hyperlipidemia chronic Stented coronary artery July, [facility] Work Phone: 1(874) 101-699204-01-1998 Evaluation note* Diagnosis Onset Date Resolution Status SEYMOUR (dyspnea on exertion) ac andreafski Essential hypertension acute Hyperlipidemia chronic Nonrheumatic mitral (valve) prolapse chronic Stented coronary artery July, [facility] Work Phone: 1(251) 553-403704-01-1998 Evaluation note* Diagnosis Onset Date Resolution Status Essential hypertension acute Hyperlipidemia chronic Nonrheumatic mitral (valve) prolapse chronic Stented coronary artery July, [facility] Bradycardia acute First degree heart block acu te Hypoxia acute Lumbar stenosis acute Diabetes mellitus type II, controlled chronic Stented coronary artery July, [facility] Work Phone: Evaluation note* Diagnosis Abdominal pain, generalized- Primary documented in this encounter [facility]* Diagnosis Generalized abdominal pain- Primary Abdominal pain, generalized Hypercalcemia documented in this encounter [facility] note* Diagnosis Type 2 diabetes mellitus without complication, without long-term current use of insulin (HCC)- Primary Diabetic eye exam (HCC) Type II or unspecified type diabetes mellitus without mention of complication, not stated as uncontrolled Hypertension, essential Unspecified essential hypertension Mixed hyperlipidemia Atherosclerosis of [place] coronary artery of [place] heart without angina pectoris KARLA (obstructive sleep apnea) Obstructive sleep apnea (adult) (pediatric) Nocturnal leg cramps Sleep related leg cramps Benign prostatic hyperplasia with urinary frequency Living will in place Advance directive discussed with patient Other specified counseling documented in this encounter [facility]Evaluation [facility]* Diagnosis Onset Date Resolution Status SEYMOUR (dyspnea on exertion) ac andreafski Essential hypertension acute Atherosclerotic heart diseas e of [place] coronary artery without angina pectoris chronic Hyperlipidemia chronic Nonrheumatic mitral (valve) prolapse chronic Stented coronary artery July, [facility] Work Phone: Evaluation note* Diagnosis Pneumonia due to COVID-19 virus- Primary [facility] Diagnosis Nocturnal leg cramps Sleep related leg cramps Benign prostatic hyperplasia with urinary frequency [facility]* Diagnosis Well adult exam- Primary Routine general medical examination at a health care facility Type 2 diabetes mellitus without complication, without long-term current use of insulin (HCC) Diabetic eye exam (HCC) Type II or unspecified type diabetes mellitus without mention of complication, not stated as uncontrolled Hypertension, essential Unspecified essential hypertension Mixed hyperlipidemia Atherosclerosis of [place] coronary artery of [place] heart without angina pectoris KARLA (obstructive sleep [...] disorder of prostate [facility]* Diagnosis Nocturnal leg cramps Sleep related leg cramps Benign prostatic hyperplasia with urinary frequency [facility]* Diagnosis Preop examination- Primary Preoperative examination, unspecified [facility]* Diagnosis Diabetic eye exam (HCC) Type II or unspecified type diabetes mellitus without mention of complication, not stated as uncontrolled [facility]* Diagnosis Hypoxemia- Primary History of COVID-19 [facility]* Diagnosis Well adult exam- Primary Routine general medical examination at a health care facility Type 2 diabetes mellitus without complication, without long-term current use of insulin (HCC) Diabetic eye exam (HCC) Type II or unspecified type diabetes mellitus without mention of complication, not stated as uncontrolled Hypertension, essential Unspecified essential hypertension Mixed hyperlipidemia Atherosclerosis of [place] coronary artery of [place] heart without angina pectoris KARLA (obstructive sleep apnea) Obstructive sleep apnea (adult) (pediatric) Benign prostatic hyperplasia with urinary frequency Advance directive discussed with patient Other specified counseling Screening for colon cancer Special screening for malignant neoplasms, colon Prostate disorder Unspecified disorder of prostate Nocturnal leg cramps Sleep related leg cramps documented [facility] this encounter [facility]* Diagnosis Anemia, unspecified type- Primary documented [facility]* Diagnosis Vitamin B12 deficiency- Primary Other B-complex deficiencies documented in this encounter [facility] note* Diagnosis Pneumonia due to COVID-19 virus documented [facility] this encounter [facility]* Diagnosis Type 2 diabetes mellitus without complication, without long-term current use of insulin (HCC)- Primary Diabetic eye exam (HCC) Type II or unspecified type diabetes mellitus without mention of complication, not stated as uncontrolled Hypertension, essential Unspecified essential hypertension Mixed hyperlipidemia Atherosclerosis of [place] coronary artery of [place] heart without angina pectoris KARLA (obstructive sleep apnea) Obstructive sleep apnea (adult) (pediatric) Vitamin B12 deficiency Other B-complex deficiencies Need for vaccination Need for prophylactic vaccination and inoculation against unspecified single disease Encounter for immunization Need for other specified prophylactic vaccination against single bacterial disease documented [facility] this encounter [facility]* Diagnosis URI, acute- Primary Acute upper respiratory infections of unspecified site documented in this encounter [facility]* Diagnosis Well adult exam- Primary Routine general medical examination at a health care facility Type 2 diabetes mellitus without complication, without long-term current use of insulin (HCC) Diabetic eye exam (HCC) Type II or unspecified type diabetes mellitus without mention of complication, not stated as uncontrolled Hypertension, essential Unspecified essential hypertension Mixed hyperlipidemia Atherosclerosis of [place] coronary artery of [place] heart without angina pectoris KARLA (obstructive sleep [...] and behavioral disorders documented in this encounter [facility] for referral (narrative)* Outpatient Procedure (Routine) - Pending Review Specialty Diagnoses / Procedures Referred By Sincere vivas [facility] Diagnoses Hypoxemia Procedures OXIMETRY WITH AMBULATION NONINVASIVE EAR/PULSE OXIMETRY May Alford MD [address] [place] [address] [address] [place] [address] Referral ID Status Reason Start Date Expiration Date Visits Requested Visits Authorized [id number] Pending Review Auto-Generat ed Referral 3 05/18/2024 [address] [facility] for referral (narrative)No reason for referral information availableAltadena Medical Services Work Phone: Chief Complaint and Reason for Visit Chief Complaint 1 y fu INT LABS Reason for Visit Essential hypertensi on Atherosclerotic heart disease of [place] coronary artery without angina pectoris Hyperlipidemia Stented coronary artery Chief Complaint 6 M FU DYSPNEA Reason for Visit SEYMOUR (dyspnea on exer tion) Essential hypertension Atherosclerotic heart disease of [place] coronary artery without angina pectoris Hyperlipidemia Nonrheumatic [...] 2024 9:26am Atherosclerotic heart diseas e of [place] coronary artery without angina pectoris July 10, 2024 9:26am Hyperlipidemia July 10, 2024 9:2 6am PAOD (peripheral arterial occlusive dise ase) August 29, 2024 10:57am Reason for Visit Admit Date Essential hypertension July 10, 2024 9:26am Atherosclerotic heart diseas e of [place] coronary artery without angina pectoris July 10, 2024 9:26am Hyperlipidemia July 10, 2024 9:2 6am PAOD (peripheral arterial occlusive dise ase) August 29, 2024 10:57am 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, [...] 2024 9:26am Atherosclerotic heart diseas e of [place] coronary artery without angina pectoris July 10, 2024 9:26am Hyperlipidemia July 10, 2024 9:2 6am PAOD (peripheral arterial occlusive dise ase) August 29, 2024 10:57am 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, bilateral October 09, 2024 2:55pm Essential hypertension October 29, 2024 10 :17am Preop cardiovascular exam October 29, 2024 10:17am Atherosclerotic heart diseas e of [place] coronary artery without angina pectoris October 29, [...] Will No January 30 2:08pm Power of Staff Development Coordinator Rn No January 30 021 2:08pm Advance Directive Response Recorded Date/ Time Name of Medical Power of Staff Development Coordinator Rn SON April 12, 2023 4:00pm Living Will Yes April 12 023 4:00pm Power of Staff Development Coordinator Rn Yes April 12, 2023 4:00pm Summary Purpose Additional Source Comments Source Comments (unrecognize d section and content) In the event this informatio n is protected by the Federal Confidentiality of Alcohol and Drug Abuse Patient Records regulations: The Federal rules restrict any use of the information to criminally investigate or prosecute any alcohol or drug abuse patient.Prov[facility] HospitalIn the event this information is protected by the Federal Confidentiality of Alcohol and Drug Abuse Patient Records regulations: The Federal rules restrict any use of the information to criminally investigate or prosecute any alcohol or drug abuse patient.Prov[facility] HospitalIn the event this information is protected by the Federal Confidentiality of Alcohol and Drug Abuse Patient Records regulations: The Federal rules restrict any use of the information to criminally investigate or prosecute any alcohol or drug abuse patient.Prov[facility] HospitalIn the event this information is protected by the Federal Confidentiality of Alcohol and Drug Abuse Patient Records regulations: The Federal rules restrict any use of the information to criminally investigate or prosecute any alcohol or drug abuse patient.[facility] HospitalIn the event this information is protected by the Federal Confidentiality of Alcohol and Drug Abuse Patient Records regulations: The Federal rules restrict any use of the information to criminally investigate or prosecute any alcohol or drug abuse patient.[facility] the event this information is protected by the Federal Confidentiality of Alcohol and Drug Abuse Patient Records regulations: The Federal rules restrict any use of the information to criminally investigate or prosecute any alcohol or drug abuse patient.[facility] HospitalIn the event this information is protected by the Federal Confidentiality of Alcohol and Drug Abuse Patient Records regulations: The Federal rules restrict any use of the information to criminally investigate or prosecute any alcohol or drug abuse patient.[facility] HospitalIn the event this information is protected by the Federal Confidentiality of Alcohol and Drug Abuse Patient Records regulations: The Federal rules restrict any use of the information to criminally investigate or prosecute any alcohol or drug abuse patient.[facility]In the event this information is protected by the Federal Confidentiality of Alcohol and Drug Abuse Patient Records regulations: The Federal rules restrict any use of the information to criminally investigate or prosecute any alcohol or drug abuse patient.[facility] HospitalIn the event this information is protected by the Federal Confidentiality of Alcohol and Drug Abuse Patient Records regulations: The Federal rules restrict any use of the information to criminally investigate or prosecute any alcohol or drug abuse patient.[facility] HospitalIn the event this information is protected by the Federal Confidentiality of Alcohol and Drug Abuse Patient Records regulations: The Federal rules restrict any use of the information to criminally investigate or prosecute any alcohol or drug abuse patient.[facility] HospitalIn the event this information is protected by the Federal Confidentiality of Alcohol and Drug Abuse Patient Records regulations: The Federal rules restrict any use of the information to criminally investigate or prosecute any alcohol or drug abuse patient.[facility] HospitalIn the event this information is protected by the Federal Confidentiality of Alcohol and Drug Abuse Patient Records regulations: The Federal rules restrict any use of the information to criminally investigate or prosecute any alcohol or drug abuse patient.[facility] HospitalIn the event this information is protected by the Federal Confidentiality of Alcohol and Drug Abuse Patient Records regulations: The Federal rules restrict any use of the information to criminally investigate or prosecute any alcohol or drug abuse patient.[facility] HospitalIn the event this information is protected by the Federal Confidentiality of Alcohol and Drug Abuse Patient Records regulations: The Federal rules restrict any use of the information to criminally investigate or prosecute any alcohol or drug abuse patient.[facility] HospitalIn the event this information is protected by the Federal Confidentiality of Alcohol and Drug Abuse Patient Records regulations: The Federal rules restrict any use of the information to criminally investigate or prosecute any alcohol or drug abuse patient.[facility] HospitalIn the event this information is protected by the Federal Confidentiality of Alcohol and Drug Abuse Patient Records regulations: The Federal rules restrict any use of the information to criminally investigate or prosecute any alcohol or drug abuse patient.[facility] HospitalIn the event this information is protected by the Federal Confidentiality of Alcohol and Drug Abuse Patient Records regulations: The Federal rules restrict any use of the information to criminally investigate or prosecute any alcohol or drug abuse patient.[facility] HospitalIn the event this information is protected by the Federal Confidentiality of Alcohol and Drug Abuse Patient Records regulations: The Federal rules restrict any use of the information to criminally investigate or prosecute any alcohol or drug abuse patient.[facility] HospitalIn the event this information is protected by the Federal Confidentiality of Alcohol and Drug Abuse Patient Records regulations: The Federal rules restrict any use of the information to criminally investigate or prosecute any alcohol or drug abuse patient.[facility] HospitalIn the event this information is protected by the Federal Confidentiality of Alcohol and Drug Abuse Patient Records regulations: The Federal rules restrict any use of the information to criminally investigate or prosecute any alcohol or drug abuse patient.[facility] HospitalIn the event this information is protected by the Federal Confidentiality of Alcohol and Drug Abuse Patient Records regulations: The Federal rules restrict any use of the information to criminally investigate or prosecute any alcohol or drug abuse patient.[facility] HospitalIn the event this information is protected by the Federal Confidentiality of Alcohol and Drug Abuse Patient Records regulations: The Federal rules restrict any use of the information to criminally investigate or prosecute any alcohol or drug abuse patient.[facility] HospitalIn the event this information is protected by the Federal Confidentiality of Alcohol and Drug Abuse Patient Records regulations: The Federal rules restrict any use of the information to criminally investigate or prosecute any alcohol or drug abuse patient.[facility] HospitalIn the event this information is protected by the Federal Confidentiality of Alcohol and Drug Abuse Patient Records regulations: The Federal rules restrict any use of the information to criminally investigate or prosecute any alcohol or drug abuse patient.[facility] HospitalIn the event this information is protected by the Federal Confidentiality of Alcohol and Drug Abuse Patient Records regulations: The Federal rules restrict any use of the information to criminally investigate or prosecute any alcohol or drug abuse patient.[facility] HospitalIn the event this information is protected by the Federal Confidentiality of Alcohol and Drug Abuse Patient Records regulations: The Federal rules restrict any use of the information to criminally investigate or prosecute any alcohol or drug abuse patient.[facility] HospitalIn the event this information is protected by the Federal Confidentiality of Alcohol and Drug Abuse Patient Records regulations: The Federal rules restrict any use of the information to criminally investigate or prosecute any alcohol or drug abuse patient.[facility] HospitalIn the event this information is protected by the Federal Confidentiality of Alcohol and Drug Abuse Patient Records regulations: The Federal rules restrict any use of the information to criminally investigate or prosecute any alcohol or drug abuse patient.[facility] HospitalIn the event this information is protected by the Federal Confidentiality of Alcohol and Drug Abuse Patient Records regulations: The Federal rules restrict any use of the information to criminally investigate or prosecute any alcohol or drug abuse patient.[facility] HospitalIn the event this information is protected by the Federal Confidentiality of Alcohol and Drug Abuse Patient Records regulations: The Federal rules restrict any use of the information to criminally investigate or prosecute any alcohol or drug abuse patient.[facility] HospitalIn the event this information is protected by the Federal Confidentiality of Alcohol and Drug Abuse Patient Records regulations: The Federal rules restrict any use of the information to criminally investigate or prosecute any alcohol or drug abuse patient.[facility] HospitalIn the event this information is protected by the Federal Confidentiality of Alcohol and Drug Abuse Patient Records regulations: The Federal rules restrict any use of the information to criminally investigate or prosecute any alcohol or drug abuse patient.[facility] HospitalIn the event this information is protected by the Federal Confidentiality of Alcohol and Drug Abuse Patient Records regulations: The Federal rules restrict any use of the information to criminally investigate or prosecute any alcohol or drug abuse patient.[facility] HospitalIn the event this information is protected by the Federal Confidentiality of Alcohol and Drug Abuse Patient Records regulations: The Federal rules restrict any use of the information to criminally investigate or prosecute any alcohol or drug abuse patient.[facility] HospitalIn the event this information is protected by the Federal Confidentiality of Alcohol and Drug Abuse Patient Records regulations: The Federal rules restrict any use of the information to criminally investigate or prosecute any alcohol or drug abuse patient.[facility] HospitalIn the event this information is protected by the Federal Confidentiality of Alcohol and Drug Abuse Patient Records regulations: The Federal rules restrict any use of the information to criminally investigate or prosecute any alcohol or drug abuse patient.[facility] HospitalIn the event this information is protected by the Federal Confidentiality of Alcohol and Drug Abuse Patient Records regulations: The Federal rules restrict any use of the information to criminally investigate or prosecute any alcohol or drug abuse patient.[facility] Reason for Visit (unrecogniz ed section [...] consult/test/treat Procedures consult/test/treat César Merrill MD [address] [place] [address] [facility] Referral ID Status Reason Start Date Expiration Date Visits Requested Visits Authorized [id number] Authorized Patient Cleared - Qualified 100% FAS [...] Diagnoses consult/test/treat Procedures consult/test/treat César Merrill MD [address] [place] [address] [facility] [address] Referral ID Status Reason Start Date Expiration Date V isits Requested Visits Authorized [id number] Closed Patient Cleared - Qualified 100% FAS 11/28/2022 02/28/2023 99 99 Reason Comments Hospital F/U Specialty Diagnoses / Procedures Referred By Contac t Referred To Contact [facility] Diagnoses [facility] Hosp discharge oxygen levels dropped after surgery was discharged with O2 Procedures hosp follow up Self [facility] [place] [address] [place] [address] Referral ID Status Reason Start Date Expiration Date Visits Requested Visits Authorized [id number] Authorized Patient Cleared - Qualified 100% FAS 07/15/2023 99 99 Specialty Diagnoses / Procedures Referred By Contac t Referred To Contact Family Medicine / FAMILY MEDICINE Diagnoses [facility] FOLLOW UP-COVID/PNEUMONIA DISCHARGED 02/02 Procedures 4C EST HOSP/ER FU Self Terry Sullivan, BRUSH FINISHER.RUFFLER, DNP [address] [place] [address] Referral ID Status Reason Start Date Expiration Date V isits Requested Visits Authorized [id number] Closed Patient Cleared - Qualified 100% FAS 02/11/2021 05/12/2021 99 99 Reason Comments 6 Month Exam Specialty Diagnoses / Procedures Referred By Contac t Referred To Contact Family Medicine / FAMILY MEDICINE Diagnoses 6 month follow up Procedures 4C EST César Merrill MD [address] [place] [address] César Merrill MD [address] [place] [address] Referral ID Status Reason Start Date Expiration Date Visits Requested Visits Authorized [id number] Authorized Patient Cleared - Qualified 100% FAS 4 05/14/2024 99 99 Reason Comments Chest Congestion cough x 3 days Reason Comments Outside Diabetic Eye Exam Reason Onset Date Comments Refill Request 07/18/2024 Reason Comments Physical Specialty Diagnoses / Procedures Referred By Contac t Referred To Contact Family Medicine / [facility] Diagnoses cough, chest congestion Procedures EST SAME DAY Self Deysi Cain APRN.CNP [address] [place] [address] Phone: tel: fax: Referral ID Status Reason Start Date Expiration Date Visits Requested Visits Authorized [id number] Authorized Patient Cleared - Qualified 100% FAS 06/10/2024 09/08/2024 99 99 Reason Comments Patient Update Reason Comments Outside Vascular Reason Onset Date Comments Refill Request 09/10/2024 Reason Onset Date Comments Refill Request 10/14/2024 Reason Comments Results Outside results Care Teams (unrecognized sec tion and content) Lot Boss Relationship Specialty Start Date End Date César Merrill MD [address] [place], [place] [id number] PCP - General Family Practice 12/11/16 Lot Boss Relationship Specialty Start Date End Date César Merrill MD [address] [place], [place] [id number] PCP - General Family Practice 12/11/16 Lot Boss Relationship Specialty Start Date End Date César Merrill MD [address] [place], [place] [id number] PCP - General Family Practice 12/11/16 Lot Boss Relationship Specialty Start Date End Date César Merrill MD [address] [place] [address] PCP - General Family Practice 12/11/16 Lot Boss Relationship Specialty Start Date End Date César Merrill MD [address] [place] [address] PCP - General Family Practice 12/11/16 Lot Boss Relationship Specialty Start Date End Date César Merrill MD [address] [place] [address] PCP - General Family Practice 12/11/16 Lot Boss Relationship Specialty Start Date End Date César Merrill MD [facility] [place] [address] PCP - General Family Practice 12/11/16 Lot Boss Relationship Specialty Start Date End Date César Merrill MD [facility] [place] [address] PCP - General Family Practice 12/11/16 Lot Boss Relationship Specialty Start Date End Date César Merrill MD [address] [place] [address] PCP - General Family Medicine 12/11/16 Lot Boss Relationship Specialty Start Date End Date éCsar Merrill MD [address] [place] [address] PCP - General Family Medicine 12/11/16 Lot Boss Relationship Specialty Start Date End Date César Merrill MD [facility] [place] [address] PCP - General Family Medicine 12/11/16 Lot Boss Relationship Specialty Start Date End Date César Merrill MD [facility] [place] [address] PCP - General Family Medicine 12/11/16 Lot Boss Relationship Specialty Start Date End Date César Merrill MD [address] [place] [address] PCP - General Family Medicine 12/11/16 Team Status: Active Member Role Status Dates Dr. César Merrill MD Family Provider Active Dr. César Merrill MD Primary Care Provider Active Team Status: Inactive Member Role Status Dates Dr. César Merrill MD Primary Care Provider, Referri ng Provider Active January Loera CIGARETTE MACHINES MECHANIC, CIGARETTE MACHINES MECHANIC-C Attending Provider Active Team Status: Inactive Member Role Status Dates Dr. César Merrill MD Primary Care Provider Active January Loera CIGARETTE MACHINES MECHANIC, CIGARETTE MACHINES MECHANIC-C Attending Provider, Patrick gregory Active Lot Boss Relationship Specialty Start Date End Date César Merrill MD [address] [place] [address] PCP - General Family Medicine 12/11/16 Lot Boss Relationship Specialty Start Date End Date César Merrill MD [address] [place] [address] PCP - General Family Medicine 12/11/16 Lot Boss Relationship Specialty Start Date End Date César Merrill MD [address] [place] [address] PCP - General Family Medicine 12/11/16 Lot Boss Relationship Specialty Start Date End Date César Merrill MD [address] [place] [address] PCP - General Family Medicine 12/11/16 Lot Boss Relationship Specialty Start Date End Date César Merrill MD [address] [place] [address] PCP - General Family Medicine 12/11/16 Lot Boss Relationship Specialty Start Date End Date César Merrill MD [address] [place] [address] PCP - General Family Medicine 12/11/16 Lot Boss Relationship Specialty Start Date End Date César Merrill MD [address] [place] [address] PCP - General Family Medicine 12/11/16 Lot Boss Relationship Specialty Start Date End Date César Merrill MD [address] [place] [address] PCP - General Family Medicine 12/11/16 Lot Boss Relationship Specialty Start Date End Date César Merrill MD [address] [place] [address] PCP - General Family Medicine 12/11/16 Lot Boss Relationship Specialty Start Date End Date César Merrill MD [address] [place] [address] PCP - General Family Medicine 12/11/16 Lot Boss Relationship Specialty Start Date End Date César Merrill MD [address] [place] [address] PCP - General Family Medicine 12/11/16 Team [...] MD Other Provider Active Dr. Lenore Robledo , Attending Provider, Other Provide r Active Team Status: Inactive Member Role Status Dates Dr. César Merrill MD Primary Care Provider Active Dr. César Tijerina , Admit Provider, A ttending Provider, Referring Provider Active Dr. Gogo Santizo MD Other Provider Active Dr. Lenore Robledo , DO Other Provider Active Lot Boss Relationship Specialty Start Date End Date César Merrill MD [address] [place] [address] PCP - General Family Medicine 12/11/16 Fartun Knight, BOBBY.RUFFLER [address] [place] [address] [facility] 04/05/24 Katarzyna Munson PA-C [address] [place] [address] Equity Trader [facility] Medicine 04/05/24 Lot Boss Relationship Specialty Start Date End Date César Merrill MD [address] [place] [address] PCP - General Family Medicine 12/11/16 Fartun Knight, BRUSH FINISHER.RUFFLER [address] [place] [address] [facility] 04/05/24 Katarzyna Munson PA-C [address] [place] [address] Equ[employer] Tr[employer] [facility] Medicine 04/05/24 Lot Boss Relationship Specialty Start Date End Date César Merrill MD [address] [place] [address] PCP - General Family Medicine 12/11/16 Fartun Knight, BRUSH FINISHER.RUFFLER [address] [place] [address] [facility] 04/05/24 Katarzyna Munson PA-C [address] [place] [address] [facility] 04/05/24 Lot Boss Relationship Specialty Start Date End Date César Merrill MD [address] [place] [address] PCP - General Family Medicine 12/11/16 Fartun Knight, BRUSH FINISHER.RUFFLER [address] [place] [address] [facility] 04/05/24 Katarzyna Munson PA-C [address] [place] [address] [facility] 04/05/24 Lot Boss Relationship Specialty Start Date End Date César Merrill MD [address] [place] [address] PCP - General Family Medicine 12/11/16 Fartun Knight, BRUSH FINISHER.RUFFLER [address] [place] [address] [facility] 04/05/24 Katarzyna Munson PA-C [address] [place] [address] [facility] 04/05/24 Lot Boss Relationship Specialty Start Date End Date César Merrill MD [address] [place] [address] PCP - General Family Medicine 12/11/16 08/03/24 César Merrill MD [address] [place] [address] PCP - General Family Medicine 08/04/24 Fartun Knight APRN.RUFFLER [address] [place] [address] [facility] 04/05/24 Katarzyna Munson PA-C [address] [place] [address] [facility] 04/05/24 Lot Boss Relationship Specialty Start Date End Date César Merrill MD [address] [place] [address] PCP - General Family Medicine 08/04/24 Fartun Knight APRN.RUFFLER [address] [place] [address] [facility] 04/05/24 Katarzyna Munson PA-C [facility] [place] [address] Equity Trader Family [facility] 04/05/24 Lot Boss Relationship Specialty Start Date End Date César Merrill MD [address] [place] [address] PCP - General Family Medicine 08/04/24 Fartun Knight APRN.RUFFLER [address] [place] [address] [facility] 04/05/24 Katarzyna Munson PA-C [address] [place] [address] [facility] 04/05/24 Team Status: Active Member Role Status [...] Active Star t: October 03, 2024 End: Tiffany 6th, 2025 Lot Boss Relationship Specialty Start Date End Date César Merrill MD [address] [place] [address] PCP - General Family Medicine 08/04/24 Fartun Knight, BOBBY.RUFFLER [address] [place] [address] [facility] 09/29/24 Katarzyna Munson PA-C [address] [place] [address] [facility] 09/29/24 Lot Boss Relationship Specialty Start Date End Date César Merrill MD [address] [place] [address] PCP - General Family Medicine 08/04/24 Fartun Knight, BRUSH FINISHER.RUFFLER [address] [place] [address] [facility] 09/29/24 Katarzyna Munson PA-C [address] [place] [address] [facility] 09/29/24 Lot Boss Relationship Specialty Start Date End Date César Merrill MD [address] [place] [address] PCP - General Family Medicine 08/04/24 Fartun Knight, BRUSH FINISHER.RUFFLER [address] [place] [address] [facility] 09/29/24 Katarzyna Munson PA-C [address] [place] [address] [facility] 09/29/24 Team Status: Active Member [...] 29, 2024 End: October 29, 2024 Trey Malgaon CIGARETTE MACHINES MECHANIC, CIGARETTE MACHINES MECHANIC-C Attending Provider Active S tart: October 29, [...] content) DATE CREATED AUTHOR 08/17/2023 [facility] DATE CREATED AUTHOR AUTHOR'S ORGANIZ ATION 10/20/2024 [facility] DATE CREATED AUTHOR AUTHOR'S ORGANIZ ATION 11/12/2024 [facility] FOR RECORDS PERTAINING TO PATIENTS WHO [...] BE BASED ON THE PRIMARY CLINICAL RECORDS. [employer] [facility]. provides no warranty or guarantee of the accuracy or completeness of information in this document.
--- OUTSIDE RECORDS SUMMARY | 2024-11-12 06:30 | XMS RPT_ITS | CCD ---
Author Organization [facility] CliniSyne Care Team Providers Care Production Controller Name Role Phone Baker Padma Unavailable Unavailable Roof TRAY SETTER, Trey Alvarado Unavailable Padma Baker Unavailable Unavailable Padma Baker Unavailable Unavailable Padma Baker Unavailable Unavailable César Merrill MD Primary Care Provider Dr. César Merrill Primary Care Provider Dr. César Merrill Referring Provider Dr. Evan Michael Attending Provider Dr. César Merrill Primary Care Provider Dr. César Merrill Referring Provider CORNADO Loera NP Attending Provider Dr. Evan Michael Attending Provider [phone] César Merrill MD Primary Care Provider César Merrill MD Primary Care Provider [phone] Dr. César Merrill Primary Care Provider Dr. César Merrill Referring Provider Evaristo MORENO, JOSH-Maria L Sin Attending Provider César Merrill MD Primary Care Provider [phone] Cséar Merrill MD Primary Care Provider Dr. César Merrill Primary Care Provider Dr. César Merrill Referring Provider Jaskaran MITCHELL, PA Rayna Gonzalez Attending Provider Dr. César Tijerina Admit Provider Dr. César Tijerina Referring Provider [phone] Dr. César Tijerina Other Provider Dr. Gogo Santizo Attending Provider Dr. Gogo Santizo Other Provider Dr. Lenore Robledo Attending Provider Dr. Lenore Robledo Other Provider Antonia ADULT FAMILY HOME PROGRAM MANAGER.BIOLOGY INTERN, Fartun Unavailable Maximilian Munson PA-Ce Unavailable Desirae BAIN, César Rascon Primary Care Provider Desirae BAIN, César Rascon Primary Care Provider Desirae BAIN, Dr. Lindsey Primary Care Provider [phone] Desirae BAIN, Dr. Lindsey Referring Provider Dr. London Tobar MD Attending Provider Sloane Villela Attending Provider [phone] Sloane Villela Referring Provider [phone] Lenny Taylor MD Attending Provider Antonia ADULT FAMILY HOME PROGRAM MANAGER.BIOLOGY INTERN, Fartun Unavailable Arpit SHI Katarzyna Unavailable DESIRAE, [...] (5 sources) rosuvastatin drug allergy 1 Rash [facility] Work Phone: (20 sources) metFORMIN; Translations: [METFORMIN] Drug Allergy 6 Diarrhea [facility] Work Phone: (20 sources) rosuvastatin; Translations: [ROSUVASTATIN CALCIUM] Drug Allergy 7 Other: See Comments [facility] Work Phone: (20 sources) valsartan; Translations: [VALSARTAN] Drug Allergy 5 Cough [facility] (20 sources) Zinc; Translations: [ZINC] Drug Allergy 5 Intolerance [facility] Work Phone: (7 sources) rosuvastatin Drug Allergy 2 [facility] (1 source) rosuvastatin Drug Allergy 5 [facility] Repository Medications Current Medications Medication Drug [...] TBEC One tablet by mouth daily ASPIRIN [id number] Mirna Weeks Start: 08-26-2010 take 1 tablet by lobito th once daily ADULT ASPIRIN EC LOW STRENGTH 81 MG TBEC One tablet by mouth daily ASPIRIN [id number] Mirna Weeks Start: 08-26-2010 take 2 tablets by mo [facility] once daily ASPIRIN 81 MG TABS Two tablets by mouth daily ASPIRIN [id number] Madie Kearney Start: 11-01-2006 take 1 tablet by lobito th in the morning Aspirin 81 mg ORAL Tab Take 81 mg by mouth. Take (2) tablets in the morning 0 11/01/2006 Active Start: 11-01-2006 take 2 tablets by mo [facility] once daily Aspirin 81 mg ORAL Tab [...] TABS One tablet by mouth daily ATENOLOL [id number] Terry Barba MD Comment on above: Take [...] on above: Take 1 capsule by mo [facility] daily at bedtime for 180 days. For [...] on above: Take 1 capsule by mo [facility] daily at bedtime. Bringing good RX coupon. [...] TABS One tablet by mouth daily CYANOCOBALAMIN [id number] Terry Barba MD Comment on above: Take [...] TABS One tablet by mouth daily CHOLECALCIFEROL 56991387566 Terry Barba MD chondroitin sulfates 400 mg / glucosamine hydrochloride 500 mg oral capsule (11 sources) Start: 12-11-2016 End: 11-15-2021 take 1 capsule by mouth twice daily Txwpqotgomb-Ihyelxdkn-Jcc C-Mn (GLUCOSAMINE CHONDROITIN MAXSTR) 500-400 mg cap Take 1 capsule by mouth twice daily. 12/11/2016 11/15/2021 Discontinued (Discontinued by Patient) Start: 08-26-2010 take 1 tablet by lobito th once daily GLUCOSAMINE-CHONDROITIN CAPS One tablet by mouth daily GLUCOSAMINE-CHONDROITIN CAPS 57854345837 Madie M Christel Start: 08-26-2010 take 1 tablet by lobito th once daily GLUCOSAMINE-CHONDROITIN CAPS One tablet by mouth daily GLUCOSAMINE-CHONDROITIN CAPS 93565088773 Madie Kearney Start: 08-26-2010 take 1 tablet by lobito th once daily GLUCOSAMINE-CHONDROITIN CAPS One tablet by mouth daily GLUCOSAMINE-CHONDROITIN CAPS 02069469975 Madie Kearney Comment on above: Take 1 [...] One tablet by mouth twice daily FLURBIPROFEN [id number] Madie Kearney Comment on above: TAKE ONE TABLET BY M OUTH TWICE DAILY FOR ARTHRITIS TAKE ONE TABLET BY M OUTH TWICE DAILY FOR ARTHRITIS, as needed folic acid 1 mg oral tablet (10 sources) Start: 1 End: 2 take 2 tablets by mouth once daily FOLIC ACID 1 MG TABS Two tablets by mouth daily FOLIC ACID 80642060481 Ray Guajardo MD glimepiride 4 mg oral [...] TABS One tablet by mouth daily GLIMEPIRIDE 05224257565 Terry Barba MD Comment on above: Take 1 tablet by lobito th twice daily with meals. Take 1 tablet by loibto th two times a day with meals. Zljobknascx-Oaprpoatm-Ihs C-Mn (GLUCOSAMINE CHONDROITIN MAXSTR) 500-400 mg cap (3 sources) Start: 2016 take 1 capsule by mouth twice daily Yaekzanhkho-Njhdsgjvl-Pe t C-Mn (GLUCOSAMINE CHONDROITIN MAXSTR) 500-400 mg cap Take 1 capsule by mouth twice daily. 0 12/11/2016 Active Comment on above: Take 1 capsule by mo [facility] twice daily. hydroCHLOROthiazide 12.5 mg oral tablet [...] Comment on above: Take 1 tablet by [facility] once daily. 200 actuat ipratropium bromide 0.017 mg/actuat metered dose inhaler (4 sources) Anticholinergic Start: 04-14-2023 End: 07-10-2024 Ipratropium Wirt (Atrovent Hfa) 17 mcg/actuation HFA aerosol inhaler [...] One tablet by mouth daily LOSARTAN POTASSIUM [id number] Rayna Jessica PA-C 24 hr metFORMIN hydrochloride [...] tablet by mouth twice daily METFORMIN HCL 45120091018 Terry Barba MD Comment on above: Take 2 in the mornin g with breakfast and two in the evening. MULTIPLE VITAMIN (2 sources) Start: 08-26-2010 take 1 tablet by mouth once daily MULTIVITAMINS TABS One tablet by mouth daily MULTIPLE VITAMIN 10595340850 Madie Kearney MULTIPLE VITAMIN (3 sources) Start: 08-26-2010 take 1 tablet by mouth once daily MULTIVITAMINS TABS One tablet by mouth daily MULTIPLE VITAMIN 23104738502 Madie Kearney Start: 08-26-2010 take 1 tablet by lobito th once daily MULTIVITAMINS TABS One tablet by mouth daily MULTIPLE VITAMIN 09660189157 Madie Kearney Multivitamin tablet (3 sources) Start: 08-18-2017 End: 01-11-2022 Multivitamin tablet Discontinued 1 {tbl} PO daily August 18, 2017 12:00am January 11, 2022 10:10am Gjjvebgbnpome-Gbfrogye-D utein (CENTRUM SILVER) Tab (9 sources) Start: 10-21-2012 End: 11-15-2021 take 1 tablet by mouth once daily Multivitamins-Minerals- Lutein (CENTRUM SILVER) Tab Take 1 tablet by mouth once daily. 1 tablet 0 10/21/2012 11/15/2021 Discontinued (Discontinued by Patient) Start: 10-21-2012 take 1 tablet by lobito th once daily Efwibfxtbzwao-Esmmucuh-Ggekur (CENTRUM SILVER) Tab Take 1 tablet by [...] 5 min up to 3 X NITROGLYCERIN [id number] Ray Guajardo MD Comment on above: Dissolve 1 tablet un clayton the tongue as directed. EVERY 5 MIN X3 orphenadrine citrate 100 mg oral tablet (5 sources) Muscle Relaxant Start: 1 take 1 tablet by mouth at bedtime NORFLEX SOLN 100mg, One tablet by mouth at bedtime. ORPHENADRINE CITRATE SOLN [id number] Madie Kearney predniSONE 10 mg oral tablet [...] Coronary arteriosclerosis; Translations: [Atherosclerotic heart disease of [place] coronary artery without angina pectoris] Onset: 05-02-2007 [...] Chronic Comment on above: Arterial study from [facility] 08/21/24:R WILMA 0.25 with monophasic waveformsL WILMA [...] sources) Long-term drug therapy; Translations: [Other terminal gauger (current) drug therapy] Onset: 08-26-2010 08-26-2010 Viral [...] to mid RCA per Dr. Tobar @ [facility] Genitourinary symptoms and ill-defined conditions (20 sources) Increased frequency of urination; Translations: [Frequency of micturition] Onset: 10-27-2019 10-27-2019 Episodic Immunizations and screening for infectious disease (3 sources) Vaccination needed; Translations: [Encounter for immunization] Onset: 02-14-2024 02-14-2024 Episodic Nutritional deficiencies (19 sources) Cobalamin deficiency; Translations: [Deficiency of other specified B group vitamins] Onset: 08-16-2023 08-16-2023 Episodic Other aftercare (2 sources) Other [facility] (current) drug therapy; Translations: [Other terminal gauger (current) drug therapy] Onset: 08-26-2010 08-26-2010 Episodic [...] Facility Cardiology Visit Reporton Cardiology Visit Report [facility] [address] [place] [address] OFFICE VISIT Date of Service: 10/29/24 MR#: [id number] Acct: [id number] Name: KATHARINE CANO Rep #: [id number] : 1945 Provider: CONRADO moyer Age/Sex: 79/M [place] [facility] [place] Status: Signed HPI HPI History of Present Illness Details: Patient is a very pleasant 79-year-old Gnosticist white male that comes in today for [...] Intake Visit Reasons: Surgical Clearance (See Note) Poultry Pathologist Required: No Accompanied by: Is patient in [...] artery ( 08/01/97) Atherosclerotic heart disease of [place] coronary artery without angina pectoris Diabetes mellitus [...] SOB orthopne (more content not included)... Normal [facility] MR/BMSAllie 10-09-2024 MR/BMSKAREN [facility] Vascular Surgery [address] [place] [address] OFFICE VISIT Date of Service: 10/09/24 MR#: [id number] Acct: [id number] Name: JEROMEKATHARINE Rep #: [id number] : 1945 Provider: Dr. Lenny Taylor MD Age/Sex: 79/M [place] [facility] [place] Status: Signed Intake Vital Signs [...] artery ( 08/01/97) Atherosclerotic heart disease of [place] coronary artery without angina pectoris Diabetes mellitus [...] No emphysema (more content not included)... Normal [facility] CREATININE FINGERSTICKon Creatinine [Mass/Vol] 1.4 mg/dL High 0.70-1.30 [facility] Comment on above: Performed By: #### L 9100.0200 #### [facility] [address] [place], [address] GFR/1.73 sq M.predicted among non-blacks MDRD (S/P/Bld) [Vol rate/Area] 51.0000 mL/min/{1.73_m2} Low >60 [facility] Comment on above: Performed By: #### L 9100.0200 #### [facility] [address] [place], [address] CTA Abd w/Runoff W/WO Contra ston 10-03-2024 CTA Abd w/Runoff W/WO Contrast [facility] Services [address] [facility] [place] [address] CTA Abd w/Runoff W/WO Contrast MR#: [id number] Acct: [id number] Name: KATHARINE CANO Kamar Rep #: [id number] : 1945 M 79 From: Gloria weiner MD PCP: Dr. César Merrill MD Status: REG CLI Study: CTA Abd w/Runoff W/WO Contrast Date of Exam: 0 10/03/24 Exam# [id number] Ordering Dr: Sloane Rush PROCEDURE: CTA ABD [...] Contrast IMPRESSION: Atherosclerosis. Multifocal stenosis. Reading Location: [place] [address] CC: STEPHEN Toth; Dr. César Merrill MD Fountain Pen Turner: Signed Normal [facility] Creatinine measurement at dsideOrdered By: Sloane Rush on 10-03-2024 Creatinine [Mass/Vol] 1.4 mg/dL High 0.70-1.30 [facility] EGFROrdered By: Sloane Rush on 10-03-2024 GFR/1.73 sq M.predicted among non-blacks MDRD (S/P/Bld) [Vol rate/Area] 51.0000 mL/min/{1.73_m2} Low >60 [facility] MR/BMSAllie 08-29-2024 /BMS.SALVADOR [facility] Vascular Surgery [address] [place] [address] OFFICE VISIT Date of Service: 08/29/24 MR#: [id number] Acct: [id number] Name: KATHARINE CANO Rep #: [id number] : 1945 Provider: STEPHEN Toth Age/Sex: 79/M [place] [facility] [place] Status: Signed Intake Vital Signs 07/10/24 09:30 [...] Reasons: Severe PVD Chief Complaint: Establish Care Poultry Pathologist Required: No Is patient in pain?: Yes [...] artery ( 08/01/97) Atherosclerotic heart disease of [place] coronary artery without angina pectoris Diabetes mellitus [...] PAD as referred by his PCP Dr. Mrerill. He had recent arterial study demonstrating severe [...] thyroid canc (more content not included)... Normal [facility] PVR LEG VAL VAS LABon 2024 P[facility] LEG [facility] VAS LAB Non-Invasive Vascula r Laboratory [facility] Lower Extremity Arterial Physiology Study Bilateral/Complete Date [...] physician: Diego Rice MD, ZAID Final CC [employer] Medical Image : [id number] amicsSISUID See Link below for Image [facility] C[facility]N Tele[facility] (FAMAmberWS) KATHARINE CANO ([id number]) 1945 M Date Time Provider Department 07/31/24 [...] 80mg daily that was originally prescribed through [facility]. Last visit with them on [...] Status:Closed by JEANNETTE OLIVEIRA on 08/05/24 Normal [facility] ALBUMIN/CREATININE RATIO, UR INEon 07-24-2024 Albumin DL <= 20 mg/L (U) [Mass/Vol] mg/dL Normal [facility] Comment on above: Order Comment: Speci men Type: URINE SPECIMENOrdering Facility: [facility] Address: [address] [place] [address] Performed By: #### U ACR ####[facility] LABCLIA [id number] [place] [address] [place] Albumin/Creatinine (U) [Mass ratio] <8 Normal <30 [facility] Comment on above: Order Comment: Speci men Type: URINE SPECIMENOrdering Facility: [facility] Address: [address] [place] [address] Result Comment: Adul t Male and Female Nephrotic Criteria: <30 mg/g is considered normal to mildly increased 30-300 mg/g is considered moderately increased >300 mg/g is considered severely increased KDIGO. (2013). KDIGO 2012 Clinical Practice Guideline for the Evaluation and Management of Chronic Kidney Disease. Official Journal of the International Society of Nephrology, 3(1), 1-150. Performed By: #### U ACR ####[facility] LABCLIA [id number] [place] [address] [place] Creatinine (U) [Mass/Vol] 155.2 mg/dL Normal 20.0-300.0 [facility] Comment on above: Order Comment: Speci men Type: URINE SPECIMENOrdering Facility: [facility] Address: [address] [place] [address] Performed By: #### U ACR ####[facility] LABCLIA [id number] [place] [address] [place] CBC W Auto Differential pane l (Bld)on 07-24-2024 Basophils (Bld) [#/Vol] 0.04 10*3/uL [facility] Basophils/100 WBC (Bld) 0.8 % [facility] Differential cell count method Nom (Bld) Auto [facility] Eosinophils (Bld) [#/Vol] 0.15 10*3/uL [facility] Eosinophils/100 WBC (Bld) 3.1 % [facility] Erythrocyte distribution width (RBC) [Ratio] 13.5 % 11.5 - 15.0 % [facility] Hematocrit (Bld) [Volume fraction] 42.7 % 39.0 - 51.0 % [facility] Hemoglobin (Bld) [Mass/Vol] 14.1 g/dL 13.0 - 17.0 g/dL [facility] Immature granulocytes (Bld) [#/Vol] [facility] Immature granulocytes/100 WBC (Bld) 0 % [facility] Interpretation and review of laboratory results Abnormal [facility] Lymphocytes (Bld) [#/Vol] 2.17 10*3/uL [facility] Lymphocytes/100 WBC (Bld) 45.5 % [facility] MCH (RBC) [Entitic mass] 33.3 pg 26.0 - 34.0 pg [facility] MCHC (RBC) [Mass/Vol] 33 g/dL 30.5 - 36.0 g/dL [facility] MCV (RBC) [Entitic vol] 100.9 fL High 80.0 - 100.0 fL [facility] Monocytes (Bld) [#/Vol] 0.56 10*3/uL [facility] Monocytes/100 WBC (Bld) 11.7 % [facility] Neutrophils (Bld) [#/Vol] 1.85 10*3/uL [facility] Neutrophils/100 WBC (Bld) 38.9 % [facility] Nucleated RBC (Bld) [#/Vol] [facility] Nucleated RBC/100 WBC (Bld) [Ratio] 0 % /100 WBC [facility] Platelet mean volume (Bld) [Entitic vol] 9.5 fL 9.0 - 12.7 fL [facility] Platelets (Bld) [#/Vol] 232 10*3/uL [facility] RBC (Bld) [#/Vol] 4.23 10*6/uL 4.20 - 6.0 0 m/uL [facility] WBC (Bld) [#/Vol] 4.77 10*3/uL [facility] Basophils (Bld) [#/Vol] 0.04 10*3/uL Normal <0.11 [facility] Comment on above: Order Comment: Speci men Type: BLOOD SPECIMENOrdering Facility: [facility] Address: [address] [place] [address] Performed By: #### 5 7021-8 ####[facility] LABCLIA [id number] [place] [address] [place] Basophils/100 WBC (Bld) 0.8 % Normal [facility] Comment on above: Order Comment: Speci men Type: BLOOD SPECIMENOrdering Facility: [facility] Address: [address] [place] [address] Performed By: #### 5 7021-8 ####[facility] LABCLIA [id number] [place] [address] [place] Differential cell count method Nom (Bld) Auto Normal [facility] Comment on above: Order Comment: Speci men Type: BLOOD SPECIMENOrdering Facility: [facility] Address: [address] [place] [address] Performed By: #### 5 7021-8 ####[facility] LABIA [id number] [place] [address] [place] Eosinophils (Bld) [#/Vol] 0.15 10*3/uL Normal <0.46 [facility] Comment on above: Order Comment: Speci men Type: BLOOD SPECIMENOrdering Facility: [facility] Address: [address] [place] [address] Performed By: #### 5 7021-8 ####[facility] LABCLIA [id number] [address] [place] [address] [place] Eosinophils/100 WBC (Bld) 3.1 % Normal [facility] Comment on above: Order Comment: Speci men Type: BLOOD SPECIMENOrdering Facility: [facility] Address: [address] [place] [address] Performed By: #### 5 7021-8 ####[facility] LABCLIA [id number] [address], [place] [address] [place] Erythrocyte distribution width (RBC) [Ratio] 13.5 % Normal 11.5-15.0 [facility] Comment on above: Order Comment: Speci men Type: BLOOD SPECIMENOrdering Facility: [facility] Address: [address] [place] [address] Performed By: #### 5 7021-8 ####[facility] LABCLIA [id number] [address], [place] [address] [place] Hematocrit (Bld) [Volume fraction] 42.7 % Normal 39.0-51.0 [facility] Comment on above: Order Comment: Speci men Type: BLOOD SPECIMENOrdering Facility: [facility] Address: [address] [place] [address] Performed By: #### 5 7021-8 ####[facility] LABCLIA [id number] [address], [place] [address] [place] Hemoglobin (Bld) [Mass/Vol] 14.1 g/dL Normal 13.0-17.0 [facility] Comment on above: Order Comment: Speci men Type: BLOOD SPECIMENOrdering Facility: [facility] Address: [address] [place] [address] Performed By: #### 5 7021-8 ####[facility] LABCLIA [id number] [address], [facility] [place] Immature granulocytes (Bld) [#/Vol] 10*3/uL Normal <0.10 [facility] Comment on above: Order Comment: Speci men Type: BLOOD SPECIMENOrdering Facility: [facility] Address: [address] [place] [address] Performed By: #### 5 7021-8 ####[facility] LABCLIA [id number] [place] [id number] [place] Immature granulocytes/100 WBC (Bld) 0.0 % Normal [facility] Comment on above: Order Comment: Speci men Type: BLOOD SPECIMENOrdering Facility: [facility] Address: [address] [place] [address] Performed By: #### 5 7021-8 ####[facility] LABIA [id number] [place] [address] [place] Lymphocytes (Bld) [#/Vol] 2.17 10*3/uL Normal 1.00-4.00 [facility] Comment on above: Order Comment: Speci men Type: BLOOD SPECIMENOrdering Facility: [facility] Address: [address] [place] [address] Performed By: #### 5 7021-8 ####[facility] LABIA [id number] [place] [address] [place] Lymphocytes/100 WBC (Bld) 45.5 % Normal [facility] Comment on above: Order Comment: Speci men Type: BLOOD SPECIMENOrdering Facility: [facility] Address: [address] [place] [address] Performed By: #### 5 7021-8 ####[facility] LABCLIA [id number] [place] [id number] [place] MCH (RBC) [Entitic mass] 33.3 pg Normal 26.0-34.0 [facility] Comment on above: Order Comment: Speci men Type: BLOOD SPECIMENOrdering Facility: [facility] Address: [address] [place] [address] Performed By: #### 5 7021-8 ####[facility] LABCLIA [id number] [place] [address] [place] MCHC (RBC) [Mass/Vol] 33.0 g/dL Normal 30.5-36.0 [facility] Comment on above: Order Comment: Speci men Type: BLOOD SPECIMENOrdering Facility: [facility] Address: [address] [place] [address] Performed By: #### 5 7021-8 ####[facility] LABIA [id number] [place] [address] [place] MCV (RBC) [Entitic vol] 100.9 fL High 80.0-100.0 [facility] Comment on above: Order Comment: Speci men Type: BLOOD SPECIMENOrdering Facility: [facility] Address: [address] [place] [address] Performed By: #### 5 7021-8 ####[facility] LABIA [id number] [place] [address] [place] Monocytes (Bld) [#/Vol] 0.56 10*3/uL Normal <0.87 [facility] Comment on above: Order Comment: Speci men Type: BLOOD SPECIMENOrdering Facility: [facility] Address: [address] [place] [address] Performed By: #### 5 7021-8 ####[facility] LABIA [id number] [place] [address] [place] [place] Monocytes/100 WBC (Bld) 11.7 % Normal [facility] Comment on above: Order Comment: Speci men Type: BLOOD SPECIMENOrdering Facility: [facility] Address: [address] [place] [address] Performed By: #### 5 7021-8 ####[facility] LABIA [id number] [place] [address] [place] Neutrophils (Bld) [#/Vol] 1.85 10*3/uL Normal 1.45-7.50 [facility] Comment on above: Order Comment: Speci men Type: BLOOD SPECIMENOrdering Facility: [facility] Address: [address] [place] [address] Performed By: #### 5 7021-8 ####[facility] LABCLIA [id number] [place] [address] [place] Neutrophils/100 WBC (Bld) 38.9 % Normal [facility] Comment on above: Order Comment: Speci men Type: BLOOD SPECIMENOrdering Facility: [facility] Address: [address] [place] [address] Performed By: #### 5 7021-8 ####[facility] LABCLIA [id number] [place] [address] [place] Nucleated RBC (Bld) [#/Vol] 10*3/uL Normal <0.01 [facility] Comment on above: Order Comment: Speci men Type: BLOOD SPECIMENOrdering Facility: [facility] Address: [address] [place] [address] Performed By: #### 5 7021-8 ####[facility] LABIA [id number] [place] [address] [place] Nucleated RBC/100 WBC (Bld) [Ratio] 0.0 /100 WBC Normal [facility] Comment on above: Order Comment: Speci men Type: BLOOD SPECIMENOrdering Facility: [facility] Address: [address] [place] [address] Performed By: #### 5 7021-8 ####[facility] LABCLIA [id number] [place] [address] [place] Platelet mean volume (Bld) [Entitic vol] 9.5 fL Normal 9.0-12.7 [facility] Comment on above: Order Comment: Speci men Type: BLOOD SPECIMENOrdering Facility: [facility] Address: [address] [place] [address] Performed By: #### 5 7021-8 ####[facility] LABIA [id number] [place] [address] [place] Platelets (Bld) [#/Vol] 232 10*3/uL Normal 150-400 [facility] Comment on above: Order Comment: Speci men Type: BLOOD SPECIMENOrdering Facility: [facility] Address: [address] [place] [address] Performed By: #### 5 7021-8 ####[facility] LABIA [id number] [place] [address] [place] RBC (Bld) [#/Vol] 4.23 10*6/uL Normal 4.20-6.00 [facility] Comment on above: Order Comment: Speci men Type: BLOOD SPECIMENOrdering Facility: [facility] Address: [address] [place] [address] Performed By: #### 5 7021-8 ####[facility] OHIOIA [id number] [place] [address] [place] WBC (Bld) [#/Vol] 4.77 10*3/uL Normal 3.70-11.00 [facility] Comment on above: Order Comment: Speci men Type: BLOOD SPECIMENOrdering Facility: [facility] Address: [address] [place] [address] Performed By: #### 5 7021-8 ####[facility] LABIA [id number] [place] [id number] [facility] OF [place] CNOVon 07-24-2024 CNOV Office Visit (FAMPWS ) KATHARINE CANO ([id number]) 1945 M Date Time Provider Department 07/24/24 8:40 AM CÉSAR MERRILL During your visit today, we recorded the following information about you: Pulse Blood pressure Weight Height 60/minute 124/54 103 kg 1.651 m César Merrill MD 07/24/2024 8:53 AM Addendum Please bring in copies of your power of assistant district attorney for health care and living will. [...] and med refills. Seeing Dr. Castro with [facility] for his hip pains. Patient had run [...] cramps ate (more content not included)... Normal [facility] Cobalamin (Vitamin B12) [Mas s/Vol]on 07-24-2024 Interpretation and review of laboratory results Normal [facility] Comprehensive metabolic 2000 panelon 07-24-2024 Albumin [Mass/Vol] 4.1 g/dL 3.9 - 4.9 g/dL [facility] ALP [Catalytic activity/Vol] 84 U/L 38 - 113 U/L [facility] ALT [Catalytic activity/Vol] 12 U/L 10 - 54 U/L [facility] Anion gap [Moles/Vol] 12 mmol/L 8 - 15 mmol/L [facility] AST [Catalytic activity/Vol] 20 U/L 14 - 40 U/L [facility] Bilirubin [Mass/Vol] 0.4 mg/dL 0.2 - 1 .3 mg/dL [facility] Calcium [Mass/Vol] 9.7 mg/dL 8.5 - 10. 2 mg/dL [facility] Chloride [Moles/Vol] 103 mmol/L 98 - 10 7 mmol/L [facility] CO2 [Moles/Vol] 24 mmol/L 22 - 30 mmol/L [facility] Creatinine [Mass/Vol] 1.36 mg/dL High 0.73 - 1.22 mg/dL [facility] GFR/1.73 sq M.predicted among non-blacks MDRD (S/P/Bld) [Vol rate/Area] 53 mL/min/{1.73_m2} Low - PINF [facility] Comment on above: Estimated Glomerular Filtration Rate [...] 154 mg/dL High 74 - 99 mg/dL [facility] Comment on above: The [place] Diabete s Association (ADA) provides guidance for [...] Standards of Medical Care in Diabetes 2016, [place] [employer] Association. Diabetes Care. 2016.39(Suppl 1). Potassium [Moles/Vol] 4.4 mmol/L 3.7 - 5.1 mmol/L [facility] Protein [Mass/Vol] 7.9 g/dL 6.3 - 8.0 g/dL [facility] Sodium [Moles/Vol] 139 mmol/L 136 - 144 mmol/L [facility] Urea nitrogen [Mass/Vol] 21 mg/dL 9 - 24 mg/dL [facility] Albumin [Mass/Vol] 4.1 g/dL Normal 3.9-4.9 [facility] Comment on above: Order Comment: Speci men Type: BLOOD SPECIMENOrdering Facility: [facility] Address: [address] [place] [address] Performed By: #### 2 4323-8, BERNADINE, 2132-9 ####[facility] LABCLIA [id number] [place] [address] [place] ALP [Catalytic activity/Vol] 84 U/L Normal 38-113 [facility] Comment on above: Order Comment: Speci men Type: BLOOD SPECIMENOrdering Facility: [facility] Address: [address] [place] [address] Performed By: #### 2 4323-8, LIPNF, 2131-12 ####[facility] LABCLIA [id number] [place] [id number] [place] ALT [Catalytic activity/Vol] 12 U/L Normal 10-54 [facility] Comment on above: Order Comment: Speci men Type: BLOOD SPECIMENOrdering Facility: [facility] Address: [address] [place] [address] Performed By: #### 2 4323-8, LIPNF, 2131-12 ####[facility] LABCLIA [id number] [place] [address] [place] Anion gap [Moles/Vol] 12 mmol/L Normal 8-15 [facility] Comment on above: Order Comment: Speci men Type: BLOOD SPECIMENOrdering Facility: [facility] Address: [address] [place] [address] Performed By: #### 2 4323-8, LIPNF, 2131-12 ####[facility] LABCLIA [id number] [place] [address] [place] AST [Catalytic activity/Vol] 20 U/L Normal 14-40 [facility] Comment on above: Order Comment: Speci men Type: BLOOD SPECIMENOrdering Facility: [facility] Address: [address] [place] [address] Performed By: #### 2 4323-8, LIPNF, 2131-12 ####[facility] LABCLIA [id number] [place] [id number] [place] Bilirubin [Mass/Vol] 0.4 mg/dL Normal 0.2-1.3 [facility] Comment on above: Order Comment: Speci men Type: BLOOD SPECIMENOrdering Facility: [facility] Address: [address] [place] [address] Performed By: #### 2 432-8, LIPNF, 2131-12 ####[facility] LABCLIA [id number] [address] [address] [place] Calcium [Mass/Vol] 9.7 mg/dL Normal 8.5-10.2 [facility] Comment on above: Order Comment: Speci men Type: BLOOD SPECIMENOrdering Facility: [facility] Address: [address] [place] [address] Performed By: #### 2 432-8, LIPNF, 2131-12 ####[facility] LABCLIA [id number] [place] [address] [place] Chloride [Moles/Vol] 103 mmol/L Normal 98-107 [facility] Comment on above: Order Comment: Speci men Type: BLOOD SPECIMENOrdering Facility: [facility] Address: [address] [place] [address] Performed By: #### 2 4328, LIPNF, 2131-12 ####[facility] LABCLIA [id number] [place] [address] [place] CO2 [Moles/Vol] 24 mmol/L Normal 22-30 [facility] Comment on above: Order Comment: Speci men Type: BLOOD SPECIMENOrdering Facility: [facility] Address: [address] [place] [address] Performed By: #### 2 432-8, LIPNF, 2131-12 ####[facility] LABCLIA [id number] [address] [address] [place] Creatinine [Mass/Vol] 1.36 mg/dL High 0.73-1.22 [facility] Comment on above: Order Comment: Speci men Type: BLOOD SPECIMENOrdering Facility: [facility] Address: [address] [place] [address] Performed By: #### 2 432-8, LIPNF, 2131-12 ####[facility] LABCLIA [id number] [place] [address] [place] Creatinine and Glomerular filtration rate.predicted panel (S/P/Bld) 53 mL/min/1.73m??? Low >=60 [facility] Comment on above: Order Comment: Lucho kidd Type: BLOOD SPECIMENOrdering Facility: [facility] Address: [address] [place] [address] Result Comment: Laurie mated Glomerular Filtration Rate [...] Performed By: #### 2 4323-8, LIPNF, 2131-12 ####[facility] [id number] [place] [address] [place] Glucose [Mass/Vol] 154 mg/dL High 74-99 [facility] Comment on above: Order Comment: Lucho kidd Type: BLOOD SPECIMENOrdering Facility: [facility] Address: [address] [place] [address] Result Comment: The [place] Diabetes Association (ADA) provides guidance for cutoff [...] Standards of Medical Care in Diabetes 2016, [place] [employer] Association. Diabetes Care. 2016.39(Suppl 1). Performed By: #### 2 4323-8, LIPNF, 2131-12 ####[facility] [id number] [place] [address] [place] Potassium [Moles/Vol] 4.4 mmol/L Normal 3.7-5.1 [facility] Comment on above: Order Comment: Speci men Type: BLOOD SPECIMENOrdering Facility: [facility] Address: [address] [place] [address] Performed By: #### 2 4323-8, LIPNF, 2131-12 ####[facility] LABCLIA [id number] [place] [address] [place] Protein [Mass/Vol] 7.9 g/dL Normal 6.3-8.0 [facility] Comment on above: Order Comment: Speci men Type: BLOOD SPECIMENOrdering Facility: [facility] Address: [address] [place] [address] Performed By: #### 2 4328, LIPNF, 2131-12 ####[facility] LABCLIA [id number] [place] [address] [place] Sodium [Moles/Vol] 139 mmol/L Normal 136-144 [facility] Comment on above: Order Comment: Speci men Type: BLOOD SPECIMENOrdering Facility: [facility] Address: [address] [place] [address] Performed By: #### 2 432-8, LIPNF, 2131-12 ####[facility] LABCLIA [id number] [place] [address] [place] Urea nitrogen [Mass/Vol] 21 mg/dL Normal 9-24 [facility] Comment on above: Order Comment: Speci men Type: BLOOD SPECIMENOrdering Facility: [facility] Address: [address] [place] [address] Performed By: #### 2 432-8, LIPNF, 2131-12 ####[facility] LABCLIA [id number] [address] [address] [place] HbA1c (Bld)on 07-24-2024 Average glucose Estimated from glycated hemoglobin (Bld) [Mass/Vol] 171 mg/dL [facility] Comment on above: eAG: (Estimated aver age glucose) is a calculated value from HgbA1c and is sales representative printing supplies of the average blood glucose level in the last 2-3 month period. HbA1c (Bld) [Mass fraction] 7.6 % High 4.3 - 5.6 % [facility] Comment on above: [place] Diabetes As sociation guidelines indicate that patients with HgbA1c in the range 5.7-6.4% are at increased risk for development of diabetes, and intervention by lifestyle modification may be beneficial. HgbA1c greater or equal to 6.5% is considered diagnostic of diabetes. Interpretation and review of laboratory results Abnormal [facility] Average glucose Estimated from glycated hemoglobin (Bld) [Mass/Vol] 171 mg/dL Normal [facility] Comment on above: Order Comment: Lucho kidd Type: BLOOD SPECIMENOrdering Facility: [facility] Address: [address] [place] [address] Result Comment: eAG: (Estimated average glucose) is a calculated value from HgbA1c and is sales representative printing supplies of the average blood glucose level in the last 2-3 month period. Performed By: #### 5 5454-3 ####[facility] LABCLIA [id number] [address] STATES OF [facility] HbA1c (Bld) [Mass fraction] 7.6 % High 4.3-5.6 [facility] Comment on above: Order Comment: Lucho kidd Type: BLOOD SPECIMENOrdering Facility: [facility] Address: [address] [place] [address] Result Comment: [place] Diabetes Association guidelines indicate that patients with HgbA1c in the range 5.7-6.4% are at increased risk for development of diabetes, and intervention by lifestyle modification may be beneficial. HgbA1c greater or equal to 6.5% is considered diagnostic of diabetes. Performed By: #### 5 5454-3 ####[facility] LABCLIA [id number] [address] [address] [place] LIPID PANEL, NONFASTINGon Cholesterol [Mass/Vol] 213 mg/dL High NINF - 200 mg/dL [facility] Comment on above: <200 mg/dL, Desirabl e 200-239 mg/dL, Borderline high >239 mg/dL, High HDL Cholesterol, Nonfasting 44 mg/dL 39 - PINF mg/dL [facility] Comment on above: 40-59 mg/dL, Accepta ble >59 mg/dL, High: Negative risk factor for coronary heart disease <40 mg/dL, Low: Positive risk factor for coronary heart disease LDL Cholesterol, Nonfasting 133 mg/dL High NINF - 100 mg/dL [facility] Comment on above: <100 mg/dL, Optimal 100-129 mg/dL, Near optimal/above optimal 130-159 mg/dL, Borderline high 160-189 mg/dL, High >189 mg/dL, Very high Secondary prevention optimal LDL Cholesterol levels are recommended to be < 70 mg/dL LDL/HDL Ratio, Nonfasting 3.02 mg/dL High NINF - 2.54 mg/dL [facility] Comment on above: Reference: 1. National Cholesterol Education Program ATP III Guideline At-A-Glance Quick Desk Reference: National Heart, Lung, and Blood [place]. National Institutes of Health. 2001: NIH Publication No. 01-3305. 2. An International Atherosclerosis Society position paper: global recommendations for the management of dyslipidemia: executive summary, Atherosclerosis. 2014: 232(2):410-413. Non HDL Cholesterol, Nonfasting 169 mg/dL High NINF - 130 mg/dL [facility] Comment on above: <130 mg/dL, Optimal 130-159 mg/dL, Near optimal/above optimal 160-189 mg/dL, Borderline high 190-219 mg/dL, High >219 mg/dL, Very high Secondary prevention optimal non HDL Cholesterol levels are recommended to be <100 mg/dL Total Chol/HDL Ratio, Nonfasting 4.84 mg/dL NINF - 5.10 mg/dL [facility] Triglycerides, Nonfasting 182 mg/dL High NINF - 150 mg/dL [facility] Comment on above: <150 mg/dL, Normal 150-199 mg/dL, Borderline high 200-499 mg/dL, High >499 mg/dL, Very high VLDL Cholesterol, Nonfasting 36 mg/dL High NINF - 30 mg/dL [facility] Cholesterol [Mass/Vol] 213 mg/dL High <200 Cl [facility] Comment on above: Order Comment: Speci men Type: BLOOD SPECIMENOrdering Facility: [facility] Address: [address] [place] [address] Result Comment: <200 mg/dL, Desirable 200-239 mg/dL, Borderline high >239 mg/dL, High Performed By: #### 2 4323-8, LIPNF, 2131-12 ####[facility] LABCLIA [id number] [address] [place] [address] [place] HDL CHOLESTEROL, NF 44 mg/dL Normal >39 [facility] Comment on above: Order Comment: Speci men Type: BLOOD SPECIMENOrdering Facility: [facility] Address: [address] [place] [address] Result Comment: 40-5 9 mg/dL, Acceptable >59 mg/dL, High: Negative risk factor for coronary heart disease <40 mg/dL, Low: Positive risk factor for coronary heart disease Performed By: #### 2 4323-8, LIPNF, 2131-12 ####[facility] LABCLIA [id number] [address], [place] [address] [place] LDL CHOLESTEROL, NF 133 mg/dL High <100 [facility] Comment on above: Order Comment: Speci men Type: BLOOD SPECIMENOrdering Facility: [facility] Address: [address] [place] [address] Result Comment: <100 mg/dL, Optimal 100-129 mg/dL, Near optimal/above optimal 130-159 mg/dL, Borderline high 160-189 mg/dL, High >189 mg/dL, Very high Secondary prevention optimal LDL Cholesterol levels are recommended to be < 70 mg/dL Performed By: #### 2 4323-8, LIPNF, 2131-12 ####[facility] LABCLIA [id number] [address] [place] [address] [place] LDL/HDL RATIO, NF 3.02 mg/dL High <2.54 [facility] Comment on above: Order Comment: Speci men Type: BLOOD SPECIMENOrdering Facility: [facility] Address: [address] [place] [address] Result Comment: Conchita bateman: 1. National Cholesterol Education Program ATP III Guideline At-A-Glance Quick Desk Reference: National Heart, Lung, and Blood [place]. National Institutes of Health. 2001: NIH Publication No. 01-3305. 2. An International Atherosclerosis Society position paper: global recommendations for the management of dyslipidemia: executive summary, Atherosclerosis. 2014: 232(2):410-413. Performed By: #### 2 4323-8, LIPNF, 2131-12 ####[facility] LABCLIA [id number] [place] [address] [place] NON HDL CHOL, NF 169 mg/dL High <130 [facility] Comment on above: Order Comment: Speci men Type: BLOOD SPECIMENOrdering Facility: [facility] Address: [address] [place] [address] Result Comment: <130 mg/dL, Optimal 130-159 mg/dL, Near optimal/above optimal 160-189 mg/dL, Borderline high 190-219 mg/dL, High >219 mg/dL, Very high Secondary prevention optimal non HDL Cholesterol levels are recommended to be <100 mg/dL Performed By: #### 2 4323-8, LIPNF, 2131-12 ####[facility] LABCLIA [id number] [place] [address] [place] T CHOL/HDL RATIO NF 4.84 mg/dL Normal <5.10 [facility] Comment on above: Order Comment: Speci men Type: BLOOD SPECIMENOrdering Facility: [facility] Address: [address] [place] [address] Performed By: #### 2 4323-8, LIPNF, 2131-12 ####[facility] LABCLIA [id number] [place] [address] [place] TRIGLYCERIDES, NF 182 mg/dL High <150 [facility] Comment on above: Order Comment: Speci men Type: BLOOD SPECIMENOrdering Facility: [facility] Address: [address] [address] Result Comment: <150 mg/dL, Normal 150-199 mg/dL, Borderline high 200-499 mg/dL, High >499 mg/dL, Very high Performed By: #### 2 4323-8, LIPNF, 2131-12 ####[facility] LABCLIA [id number] [place] [address] [place] VLDL CHOLESTEROL, NF 36 mg/dL High <30 [facility] Comment on above: Order Comment: Speci men Type: BLOOD SPECIMENOrdering Facility: [facility] Address: [address] [address] [address] Performed By: #### 2 4323-8, LIPTHOMAS, 2131-12 ####[facility] LABCLIA [id number] [address] [place] No Panel Informationon 07-24 Interpretation and review of laboratory results Abnormal [facility] Urinalysis complete panel (U )on 07-24-2024 Bacteria LM.HPF (Urine sed) [#/Area] Negative Negative /HPF [facility] Bilirubin Ql (U) Negative Negative [facility] Clarity (Unsp spec) Clear Clear [facility] Color (U) Yellow Yellow [facility] Epithelial cells LM.HPF (Urine sed) [#/Area] None Seen /HPF [facility] Glucose Test strip (U) [Mass/Vol] Negative Negative [facility] Hemoglobin Ql (U) Negative Negative [facility] Hyaline casts (Urine sed) [#/Area] 4-10 /LPF Abnormal 0 /LPF [facility] Interpretation and review of laboratory results Abnormal [facility] Ketones Ql (U) Negative Negative [facility] Leukocyte esterase Test strip Ql (U) Negative Negative [facility] Nitrite Ql (U) Negative Negative [facility] pH (U) 5.5 [pH] NINF - 8.5 [facility] Protein (U) [Mass/Vol] Negative Negative [facility] RBC LM.HPF (Urine sed) [#/Area] 0-2 /HPF 0-2 /HPF [facility] Specific gravity (U) [Rel density] 1.018 1.005 - 1.030 [facility] Urobilinogen Ql (U) 0.2 EU/dL 0.2-1.0 EU/dL [facility] WBC LM.HPF (Urine sed) [#/Area] 0-5 /HPF 0-5 /HPF [facility] This test was developed and its performance characteristics determined by [facility]'s [facility] Pathology and Laboratory Medicine [place] ([facility]). It has not been cleared or approved by the FDA. [facility] is regulated under CLIA as qualified to perform high-complexity testing. This test is used for clinical purposes. It should not be regarded as investigational or for research. [facility] Bacteria LM.HPF (Urine sed) [#/Area] Negative Normal Negative [facility] Comment on above: Order Comment: Speci men Type: URINE SPECIMENOrdering Facility: [facility] Address: [address] [place] [address] Performed By: #### 2 4356-8 ####[facility] LABCLIA [id number] [place] [address] [place] Bilirubin Ql (U) Negative Normal Negative [facility] Comment on above: Order Comment: Speci men Type: URINE SPECIMENOrdering Facility: [facility] Address: [address] [place] [address] Performed By: #### 2 4356-8 ####[facility] LABCLIA [id number] [place] [address] [place] Clarity (Unsp spec) Clear Normal Clear [facility] Comment on above: Order Comment: Speci men Type: URINE SPECIMENOrdering Facility: [facility] Address: [address] [place] [address] Performed By: #### 2 4356-8 ####[facility] LABCLIA [id number] [place] [address] [place] Color (U) Yellow Normal Yellow [facility] Comment on above: Order Comment: Speci men Type: URINE SPECIMENOrdering Facility: [facility] Address: [address] [place] [address] Performed By: #### 2 4356-8 ####[facility] LABCLIA [id number] [address] [place] Epithelial cells LM.HPF (Urine sed) [#/Area] None Seen Normal [facility] Comment on above: Order Comment: Speci men Type: URINE SPECIMENOrdering Facility: [facility] Address: [address] [place] [address] Performed By: #### 2 4356-8 ####[facility] LABCLIA [id number] [address] [place] Glucose Test strip (U) [Mass/Vol] Negative Normal Negative [facility] Comment on above: Order Comment: Speci men Type: URINE SPECIMENOrdering Facility: [facility] Address: [address] [place] [address] Performed By: #### 2 4356-8 ####[facility] LABCLIA [id number] [place] [address] [place] Hemoglobin Ql (U) Negative Normal Negative [facility] Comment on above: Order Comment: Speci men Type: URINE SPECIMENOrdering Facility: [facility] Address: [address] [place] [address] Performed By: #### 2 4356-8 ####[facility] LABCLIA [id number] [place] [address] [place] Hyaline casts (Urine sed) [#/Area] 4-10 /LPF Abnormal 0 /LPF [facility] Comment on above: Order Comment: Speci men Type: URINE SPECIMENOrdering Facility: [facility] Address: [address] [place] [address] Performed By: #### 2 4356-8 ####[facility] LABCLIA [id number] [place] [address] [place] Ketones Ql (U) Negative Normal Negative [facility] Comment on above: Order Comment: Speci men Type: URINE SPECIMENOrdering Facility: [facility] Address: [address] [place] [address] Performed By: #### 2 4356-8 ####[facility] LABCLIA [id number] [address] [place] [address] [place] Leukocyte esterase Test strip Ql (U) Negative Normal Negative [facility] Comment on above: Order Comment: Speci men Type: URINE SPECIMENOrdering Facility: [facility] Address: [address] [place] [address] Performed By: #### 2 4356-8 ####[facility] LABCLIA [id number] [address], [place] [address] [place] Nitrite Ql (U) Negative Normal Negative [facility] Comment on above: Order Comment: Speci men Type: URINE SPECIMENOrdering Facility: [facility] Address: [address] [place] [address] Performed By: #### 2 4356-8 ####[facility] LABCLIA [id number] [address], [place] [address] [place] pH (U) 5.5 [pH] Normal <8.5 [facility] Comment on above: Order Comment: Speci men Type: URINE SPECIMENOrdering Facility: [facility] Address: [address] [place] [address] Performed By: #### 2 4356-8 ####[facility] LABCLIA [id number] [facility] [address], [facility] [place] Protein (U) [Mass/Vol] Negative Normal Negative [facility] Comment on above: Order Comment: Speci men Type: URINE SPECIMENOrdering Facility: [facility] Address: [address] [place], [place] [address] Performed By: #### 2 4356-8 ####[facility] LABCLIA [id number] [address] [place] RBC LM.HPF (Urine sed) [#/Area] 0-2 /HPF Normal 0-2 /HPF [facility] Comment on above: Order Comment: Speci men Type: URINE SPECIMENOrdering Facility: [facility] Address: [address] [place] [address] Performed By: #### 2 4356-8 ####[facility] LABIA [id number] [place] [address] [place] Specific gravity (U) [Rel density] 1.018 Normal 1.005-1.030 [facility] Comment on above: Order Comment: Speci men Type: URINE SPECIMENOrdering Facility: [facility] Address: [address] [place] [address] Performed By: #### 2 4356-8 ####[facility] LABIA [id number] [address] [place] Urobilinogen Ql (U) 0.2 EU/dL Normal 0.2-1.0 EU/dL [facility] Comment on above: Order Comment: Speci men Type: URINE SPECIMENOrdering Facility: [facility] Address: [address] [place] [address] Performed By: #### 2 4356-8 ####[facility] OHIOIA [id number] [place] [address] [place] WBC LM.HPF (Urine sed) [#/Area] 0-5 /HPF Normal 0-5 /HPF [facility] Comment on above: Order Comment: Speci men Type: URINE SPECIMENOrdering Facility: [facility] Address: [address] [place] [address] Performed By: #### 2 4356-8 ####[facility] LABIA [id number] [place] [address] [place] VITAMIN B12on 07-24-2024 Cobalamin (Vitamin B12) [Mass/Vol] 529 pg/mL 232 - 1245 pg/mL [facility] B12 SerPl-mCncon 07-24- 025 Cobalamin (Vitamin B12) [Mass/Vol] 529 pg/mL Normal 232-1245 [facility] Comment on above: Order Comment: Speci men Type: BLOOD SPECIMENOrdering Facility: [facility] Address: [address] [place] [address] [place] [address] Performed By: #### 2 4323-8, BERNADINE, 2132-9 ####[facility] LABCLIA [id number] [facility] [place] [address] [place] CNPLuisa 07-18-2024 CNPN Telephone (FAMPWS) KATHARINE CANO ([id number]) 1945 M Date Time Provider Department 07/18/24 CÉSAR MERRILL During your visit today, we recorded the following information about you: Zohreh Hughes, RN 07/18/2024 12:19 PM Signed Love from [facility] pharmacy in [place] calling in for refills for pt. She states pt called in for refill on his Baclofen and Gabapentin. Per [facility], last prescriptions for both of these were [...] on 08/12 with Katarzyna Munson. Pt is Gnosticist and needs financially cleared for appt. Attempted [...] Status:Closed by CÉSAR MERRILL on 07/18/24 Normal [facility] Cardiology Visit Reporton Cardiology Visit Report [facility] [address] [place] [address] OFFICE VISIT Date of Service: 07/10/24 MR#: [id number] Acct: [id number] Name: JEROMEKATHARINE Rep #: [id number] : 1945 Provider: Dr. 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 [facility] ) KATHARINE CANO ([id number]) 1945 M Date Time Provider Department 06/10/24 1:00 PM DEYSI CAIN [facility] During your visit today, we recorded the following information about you: Temperature Pulse Respiration Blood pressure 98.7 degrees 92/minute 18/minute 142/72 Weight 105.1 kg Deysi Cain, ADULT FAMILY HOME PROGRAM MANAGER.BIOLOGY INTERN 06/10/2024 1:45 PM Signed CC: Patient presents [...] Brother Can (more content not included)... Normal [facility] 02-15-2024 [facility] KATHARINE CANO ([id number]) 1945 M Date Time Provider Department 02/15/24 [facility]LL [facility] During your visit today, we recorded the [...] Encounter Status:Closed by DEMARCUS HIGGINBOTHAM on 02/15/24 [facility] CNOVon 02-14-2024 CNOV Office Visit (FAMPWS ) KATHARINE CANO ([id number]) 1945 M Date Time Provider Department 02/14/24 [...] pain an (more content not included)... Normal [facility] Cobalamin (Vitamin B12) [Mas s/Vol]on 02-14-2024 Interpretation and review of laboratory results Normal [facility] HbA1c (Bld)on 02-14-2024 Average glucose Estimated from glycated hemoglobin (Bld) [Mass/Vol] 140 mg/dL [facility] Comment on above: eAG: (Estimated aver age glucose) is a calculated value from HgbA1c and is sales representative printing supplies of the average blood glucose level in the last 2-3 month period. HbA1c (Bld) [Mass fraction] 6.5 % High 4.3 - 5.6 % [facility] Comment on above: [place] Diabetes As sociation guidelines indicate that patients with HgbA1c in the range 5.7-6.4% are at increased risk for development of diabetes, and intervention by lifestyle modification may be beneficial. HgbA1c greater or equal to 6.5% is considered diagnostic of diabetes. Interpretation and review of laboratory results Abnormal [facility] Average glucose Estimated from glycated hemoglobin (Bld) [Mass/Vol] 140 mg/dL Normal [facility] Comment on above: Order Comment: Lucho kidd Type: BLOOD SPECIMENOrdering Facility: [facility] Address: [address] [place] [address] Result Comment: eAG: (Estimated average glucose) is a calculated value from HgbA1c and is sales representative printing supplies of the average blood glucose level in the last 2-3 month period. Performed By: #### 5 5454-3 ####[facility] LABCLIA [id number] [facility] [id number] [place] [address] [place] HbA1c (Bld) [Mass fraction] 6.5 % High 4.3-5.6 [facility] Comment on above: Order Comment: Lucho kidd Type: BLOOD SPECIMENOrdering Facility: [facility] Address: [address] [place] [address] Result Comment: [place] Diabetes Association guidelines indicate that patients with HgbA1c in the range 5.7-6.4% are at increased risk for development of diabetes, and intervention by lifestyle modification may be beneficial. HgbA1c greater or equal to 6.5% is considered diagnostic of diabetes. Performed By: #### 5 5454-3 ####[facility] LABCLIA [id number] [place] [address] [place] VITAMIN B12on 02-14-2024 Cobalamin (Vitamin B12) [Mass/Vol] 480 pg/mL 232 - 1245 pg/mL [facility] Vit B12 SerPl-mCncon 024 Cobalamin (Vitamin B12) [Mass/Vol] 480 pg/mL Normal 232-1245 [facility] Comment on above: Order Comment: Speci men Type: BLOOD SPECIMENOrdering Facility: [facility] Address: [address] [place] [address] Performed By: #### 2 132-9 ####[facility] LABCLIA [id number] [address] OF [facility] CNPNon 08-16-2023 [facility]) KATHARINE CANO ( ) 1945 M Date Time Provider Department 08/16/23 CÉSAR MERRILL [facility] During your visit today, we [...] 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] Order(s):VITAMIN B12 [SQB12] Order #: [id number] FUTURE COMPLETE BLOOD COUNT AND DIFFERENTIAL [SQCBCDIF] Order #: [id number] FUTURE Cyanocobalamin 1,000 mcg TbERTake 1 tablet [...] Status:Closed by JEANNETTE OLIVEIRA on 08/16/23 Normal [facility] ALBUMIN/CREATININE RATIO, HERBERT LEPEjana 08-08-2023 Albumin DL <= 20 mg/L (U) [Mass/Vol] [facility] Albumin/Creatinine (U) [Mass ratio] <30 mg/g [facility] Creatinine (U) [Mass/Vol] 92.5 mg/dL 20.0 - 300.0 mg/dL [facility] CBC W Auto Differential pane l (Bld)on 08-08-2023 Basophils (Bld) [#/Vol] 0.04 10*3/uL <0.11 k/uL [facility] Basophils/100 WBC (Bld) 0.8 % [facility] Differential cell count method Nom (Bld) Auto [facility] Eosinophils (Bld) [#/Vol] 0.14 10*3/uL <0.46 k/uL [facility] Eosinophils/100 WBC (Bld) 2.9 % [facility] Erythrocyte distribution width (RBC) [Ratio] 14.6 % 11.5 - 15.0 % [facility] Hematocrit (Bld) [Volume fraction] 39.3 % 39.0 - 51.0 % [facility] Hemoglobin (Bld) [Mass/Vol] 12.7 g/dL Low 13.0 - 17.0 g/dL [facility] Immature granulocytes (Bld) [#/Vol] <0.10 k/uL [facility] Immature granulocytes/100 WBC (Bld) 0.2 % [facility] Lymphocytes (Bld) [#/Vol] 1.94 10*3/uL 1.00 - 4.00 k/uL [facility] Lymphocytes/100 WBC (Bld) 40.8 % [facility] MCH (RBC) [Entitic mass] 32.5 pg 26.0 - 34.0 pg [facility] MCHC (RBC) [Mass/Vol] 32.3 g/dL 30.5 - 36.0 g/dL [facility] MCV (RBC) [Entitic vol] 100.5 fL High 80.0 - 100.0 fL [facility] Monocytes (Bld) [#/Vol] 0.59 10*3/uL <0.87 k/uL [facility] Monocytes/100 WBC (Bld) 12.4 % [facility] Neutrophils (Bld) [#/Vol] 2.03 10*3/uL 1.45 - 7.50 k/uL [facility] Neutrophils/100 WBC (Bld) 42.9 % [facility] Nucleated RBC (Bld) [#/Vol] <0.01 k/uL [facility] Nucleated RBC/100 WBC (Bld) [Ratio] 0.0 /100 WBC [facility] Platelet mean volume (Bld) [Entitic vol] 9.9 fL 9.0 - 12.7 fL [facility] Platelets (Bld) [#/Vol] 179 10*3/uL 150 - 400 k/uL [facility] RBC (Bld) [#/Vol] 3.91 10*6/uL Low 4.20 - 6.0 0 m/uL [facility] WBC (Bld) [#/Vol] 4.75 10*3/uL 3.70 - 11. 00 k/uL [facility] Comprehensive metabolic 2000 panelon 08-08-2023 Albumin [Mass/Vol] 4.1 g/dL 3.9 - 4.9 g/dL [facility] ALP [Catalytic activity/Vol] 71 U/L 38 - 113 U/L [facility] ALT [Catalytic activity/Vol] 12 U/L 10 - 54 U/L [facility] Anion gap [Moles/Vol] 12 mmol/L 9 - 18 mmol/L [facility] AST [Catalytic activity/Vol] 20 U/L 14 - 40 U/L [facility] Bilirubin [Mass/Vol] 0.4 mg/dL 0.2 - 1 .3 mg/dL [facility] Calcium [Mass/Vol] 9.8 mg/dL 8.5 - 10. 2 mg/dL [facility] Chloride [Moles/Vol] 105 mmol/L 97 - 10 5 mmol/L [facility] CO2 [Moles/Vol] 25 mmol/L 22 - 30 mmol/L [facility] Creatinine [Mass/Vol] 1.17 mg/dL 0.73 - 1.22 mg/dL [facility] Estimated Glomerular Filtration Rate 64 mL/min/1.73m >=60 mL/min/1.73m [facility] Glucose [Mass/Vol] 108 mg/dL High 74 - 99 mg/dL [facility] Potassium [Moles/Vol] 4.2 mmol/L 3.7 - 5.1 mmol/L [facility] Protein [Mass/Vol] 7.3 g/dL 6.3 - 8.0 g/dL [facility] Sodium [Moles/Vol] 142 mmol/L 136 - 144 mmol/L [facility] Urea nitrogen [Mass/Vol] 17 mg/dL 9 - 24 mg/dL [facility] HbA1c (Bld)on 08-08-2023 Average glucose Estimated from glycated hemoglobin (Bld) [Mass/Vol] 137 mg/dL [facility] HbA1c (Bld) [Mass fraction] 6.4 % High 4.3 - 5.6 % [facility] LIPID PANEL, NONFASTINGon Cholesterol [Mass/Vol] 133 mg/dL <200 mg/dL [facility] HDL Cholesterol, Nonfasting 41 mg/dL >39 mg/dL [facility] LDL Cholesterol, Nonfasting 64 mg/dL <100 mg/dL [facility] LDL/HDL Ratio, Nonfasting 1.56 mg/dL <2.54 mg/dL [facility] Non HDL Cholesterol, Nonfasting 92 mg/dL <130 mg/dL [facility] Total Chol/HDL Ratio, Nonfasting 3.24 mg/dL <5.10 mg/dL [facility] Triglycerides, Nonfasting 142 mg/dL <150 mg/dL [facility] VLDL Cholesterol, Nonfasting 28 mg/dL <30 mg/dL [facility] PROSTATE-SPECIFIC ANTIGEN DI AGNOSTICon 08-08-2023 Prostate specific Ag [Mass/Vol] 1.92 ng/mL <2.60 ng/mL [facility] Urinalysis complete panel (U )on 08-08-2023 Bacteria LM.HPF (Urine sed) [#/Area] Negative Negative /HPF [facility] Bilirubin Ql (U) Negative Negative [facility] Clarity (Unsp spec) Clear Clear [facility] Color (U) Yellow Yellow [facility] Epithelial cells LM.HPF (Urine sed) [#/Area] None Seen [facility] Glucose Test strip (U) [Mass/Vol] Negative Negative [facility] Hemoglobin Ql (U) Negative Negative [facility] Hyaline casts (Urine sed) [#/Area] 0 /[LPF] 0 /LPF [facility] Ketones Ql (U) Negative Negative [facility] Leukocyte esterase Test strip Ql (U) Negative Negative [facility] Nitrite Ql (U) Negative Negative [facility] pH (U) 6.0 [pH] <8.5 [facility] Protein (U) [Mass/Vol] Negative Negative [facility] RBC LM.HPF (Urine sed) [#/Area] 0-2 /HPF 0-2 /HPF [facility] Specific gravity (U) [Rel density] 1.015 1.005 - 1.030 [facility] Urobilinogen Ql (U) 0.2 EU/dL 0.2-1.0 EU/dL [facility] WBC LM.HPF (Urine sed) [#/Area] 0-5 /HPF 0-5 /HPF [facility] Glucose Glucometer (BldC) [M ass/Vol]Ordered By: César Tijerina on 04-14-2023 Glucose [Mass/Vol] 233 mg/dL 74-106 [facility] Comment on above: MANAGEMENT OF PATIEN T CARE PER NURSING PROTOCOL Absolute lymphocyte countOrd ered By: Lenore Robledo on 04-13-2023 Lymphocytes Auto (Unsp spec) [#/Vol] 1.45 10*3/uL 0.83-4.51 [facility] Basophil percentageOrdered B y: Lenore Robledo on 04-13-2023 Basophils/100 WBC (Bld) 0.4 % 0-1 [facility] Chloride [Moles/Vol] 106 mmol/L 98-107 [facility] Eosinophils/100 WBC (Bld) 0.1 % 0-5 [facility] Glucose [Mass/Vol] 229 mg/dL 74-106 [facility] Comment on above: Glucose result great er than or equal to 200 mg/dLsuggests DIABETES MELLITUS per A.D.A. criteria. Neutrophils (Bld) [#/Vol] 5.8 10*3/uL 2.0-7.7 [facility] Neutrophils/100 WBC (Bld) 69.9 % 47-70 [facility] Potassium [Moles/Vol] 3.9 mmol/L 3.5-5.1 [facility] Sodium [Moles/Vol] 137 mmol/L 136-145 [facility] WBC (Bld) [#/Vol] 8.3 10*3/uL 4.4-11.0 [facility] Blood erythrocytes count (nu mber/volume)Ordered By: Lenore Robledo on 04-13-2023 RBC (Bld) [#/Vol] 3.28 10*6/uL 4.6-6.2 [facility] Blood hemoglobin measurement (mass/volume)Ordered By: Lenore Robledo on 04-13-2023 Hemoglobin (Bld) [Mass/Vol] 11.2 g/dL 13.0-16.5 [facility] Blood lymphocytes/100 leukoc ytesOrdered By: Lenore Robledo on 04-13-2023 Lymphocytes/100 WBC (Bld) 17.4 % 19-41 [facility] Blood monocytes/100 leukocyt esOrdered By: Lenore Robledo on 04-13-2023 Monocytes/100 WBC (Bld) 11.7 % 0-10 [facility] Blood platelet mean volumeOr dered By: Lenore Robledo on 04-13-2023 Platelet mean volume (Bld) [Entitic vol] 9.4 fL 6.2-12.0 [facility] Determination of erythrocyte mean corpuscular volume (MCV)Ordered By: Lenore Robledo on 04-13-2023 MCV (RBC) [Entitic vol] 103.0 fL 80-94 [facility] Hematocrit Auto (Bld) [Volum e fraction]Ordered By: Lenore Robledo on 04-13-2023 Hematocrit (Bld) [Volume fraction] 33.8 % 40-54 [facility] Laboratory - Chemistry and C hemistry - challengeOrdered By: Lenore Robledo on 04-13-2023 CO2 [Moles/Vol] 25.0 mmol/L 21.0-32.0 [facility] Natriuretic peptide B (Bld) [Mass/Vol] 94.6 pg/mL 0-100 [facility] Urea nitrogen/Creatinine [Mass ratio] 11.1 mg/mg 10-20 [facility] - Hematology and Cell countsOrdered By: Lenore Robledo on 04-13-2023 Erythrocyte distribution width (RBC) [Entitic vol] 53.0 fL 35.1-43.9 [facility] Erythrocyte distribution width (RBC) [Ratio] 13.9 % 11.6-14.6 [facility] Immature granulocytes/100 WBC (Bld) 0.500 % 0.0-0.9 [facility] Comment on above: IG% - Immature Granu locytes (promyelocytes, myelocytes and metamyelocytes) > 1% indicates that a LEFT SHIFT is Present. MCH (RBC) [Entitic mass] 34.1 pg 27.0-32.0 [facility] Nucleated RBC/100 WBC (Bld) [Ratio] 0 % 0-5 [facility] ([facility]) [Mass/Vol]Or dered By: Lenore Robledo on 04-13-2023 MCHC (RBC) [Mass/Vol] 33.1 g/dL 32-36 [facility] No Panel InformationOrdered By: Lenore Robledo on 04-13-2023 Estimated Creatinine Clearance Calc 40.70 ml/min [facility] Estimated GFR (MDRD) Amer 66 mL/min >60 [facility] Comment on above: GFR Calc Estimated GFR (MDRD) Non-Af Amer 54 mL/min >60 [facility] Comment on above: Non- GFR Calc Platelets bldOrdered By: Astrid Robledo on 04-13-2023 Platelets (Bld) [#/Vol] 132 10*3/uL 150-450 [facility] Respiratory pathogens detect ion panel by molecular detection methodOrdered By: Lenore Robledo on 04-13-2023 Respiratory pathogens DNA and RNA panel JOYCE+probe (Resp) [facility] [facility] Serum or plasma calcium jose urement (mass/volume)Ordered By: Lenore Robledo on 04-13-2023 Calcium [Mass/Vol] 8.8 mg/dL 8.5-10.1 [facility] Serum or plasma creatinine m easurement (mass/volume)Ordered By: Lenore Robledo on 04-13-2023 Creatinine [Mass/Vol] 1.35 mg/dL 0.70-1.30 [facility] Comment on above: The validity of the calculated GFR & GFRAA in patients over 70 years has not been determined. Clinical correlation is essential. Serum or plasma urea nitroge n measurement (mass/volume)Ordered By: Lenore Robledo on 04-13-2023 Urea nitrogen [Mass/Vol] 15 mg/dL 7-18 [facility] Thin prep Papanicolaou smear with manual screeningOrdered By: Lenore Robledo on 04-13-2023 Thin prep Papanicolaou smear with manual screening 6 09-11 [facility] INR in Blood by Coagulation assayOrdered By: César Tijerina on 03-20-2023 INR Coag (Bld) [Relative time] 1.0 {INR} [facility] Laboratory - CoagulationOrde red By: César Tijerina on 03-20-2023 aPTT Coag (Bld) [Time] 32.2 s 24.1-36.2 [facility] PT Coag (PPP) [Time] 13.6 s 11.7-14.9 [facility] Whole blood hemoglobin A1c/t otal hemoglobin ratio (mass fraction)Ordered By: Neo Henry on 03-20-2023 HbA1c (Bld) [Mass fraction] 6.3 % 3.8-5.6 [facility] Comment on above: Normal < 5.7 % Predi abetic 5.7 - 6.4 % Diabetic >or= 6.5 % Please note range changes. Basophil percentageOrdered B y: Dr. Michael on 07-04-2022 Bilirubin [Mass/Vol] 0.60 mg/dL 0.20-1.00 [facility] Comment on above: For patients on eltr ombopag therapy, use of Dimension [place] TBIL is not recommended. Cholesterol [Mass/Vol] 110 mg/dL <200 [facility] Comment on above: <200 mg/dL Desirable 200-240 mg/dL Borderline >240 mg/dL High Risk Protein [Mass/Vol] 7.2 g/dL 6.4-8.2 [facility] Triglyceride [Mass/Vol] 135 mg/dL <199 [facility] Comment on above: The drugs N-Acetylcy steine and Metamizole may falsely depress this assay.Serum Triglycerides Reference Interval Normal <150 mg/dL Borderline high 150 - 199 mg/dL High 200 - 499 mg/dL Very High > or = 500 mg/dL Basophil percentageOrdered B y: January Loera on 07-04-2022 Chloride [Moles/Vol] 107 mmol/L 98-107 [facility] Glucose [Mass/Vol] 156 mg/dL 74-106 [facility] Comment on above: Fasting Glucose resu lt greater than or equal to 126 mg/dL suggests DIABETES MELLITUS per A.D.A. criteria. Potassium [Moles/Vol] 4.0 mmol/L 3.5-5.1 [facility] Sodium [Moles/Vol] 143 mmol/L 136-145 [facility] Direct bilirubinOrdered By: Dr. Michael on 07-04-2022 Bilirubin.direct [Mass/Vol] 0.20 mg/dL 0.00-0.30 [facility] Laboratory - Chemistry and C hemistry - challengeOrdered By: Dr. Michael on 07-04-2022 ALP [Catalytic activity/Vol] 49 U/L 45-117 [facility] ALT [Catalytic activity/Vol] 23 U/L 16-61 [facility] Globulin (S) [Mass/Vol] 3.7 g/dL 2.2-4.2 [facility] Laboratory - Chemistry and C hemistry - challengeOrdered By: January Loera on 07-04-2022 CO2 [Moles/Vol] 27.0 mmol/L 21.0-32.0 [facility] Urea nitrogen/Creatinine [Mass ratio] 13.3 mg/mg 10-20 [facility] Natriuretic peptide B (Bld) [Mass/Vol] 57.4 pg/mL 0-100 [facility] No Panel InformationOrdered By: January Loera on 07-04-2022 Estimated GFR (MDRD) Amer 81 mL/min >60 [facility] Comment on above: GFR Calc Estimated GFR (MDRD) Non-Af Amer 67 mL/min >60 [facility] Comment on above: Non- GFR Calc Serum or plasma albumin jose urement (mass/volume)Ordered By: Dr. Michael on 07-04-2022 Albumin [Mass/Vol] 3.5 g/dL 3.2-5.0 [facility] Serum or plasma calcium jose urement (mass/volume)Ordered By: January Loera on 07-04-2022 Calcium [Mass/Vol] 9.1 mg/dL 8.5-10.1 [facility] Serum or plasma cholesterol in HDL measurement (mass/volume)Ordered By: Dr. Michael on 07-04-2022 Cholesterol in HDL [Mass/Vol] 49 mg/dL >40 [facility] Comment on above: The drugs N-Acetylcy steine and Metamizole may falsely depress this assay. Reference Range HDL <40 mg/dL Low HDL Cholesterol HDL >or= 60 mg/dL High HDL Cholesterol Serum or plasma cholesterol in VLDL measurement (mass/volume)Ordered By: Dr. Michael on 07-04-2022 Cholesterol in VLDL [Mass/Vol] 27 mg/dL 5-40 [facility] Serum or plasma creatinine m easurement (mass/volume)Ordered By: January Loera on 07-04-2022 Creatinine [Mass/Vol] 1.13 mg/dL 0.70-1.30 [facility] Comment on above: The validity of the calculated GFR & GFRAA in patients over 70 years has not been determined. Clinical correlation is essential. Serum or plasma low density lipoprotein (LDL) cholesterol measurement (mass/volume)Ordered By: Dr. Michael on 07-04-2022 Cholesterol in LDL [Mass/Vol] 34 mg/dL 0-130 [facility] Serum or plasma urea nitroge n measurement (mass/volume)Ordered By: January Loera on 07-04-2022 Urea nitrogen [Mass/Vol] 15 mg/dL 7-18 [facility] Thin prep Papanicolaou smear with manual screeningOrdered By: Dr. Michael on 07-04-2022 Thin prep Papanicolaou smear with manual screening 18 U/L 15-37 [facility] Thin prep Papanicolaou smear with manual screeningOrdered By: January Loera on 07-04-2022 Thin prep Papanicolaou smear with manual screening 9 5-15 [facility] CBC W Auto Differential pane l (Bld)on 05-31-2022 Basophils (Bld) [#/Vol] 0.03 10*3/uL <0.11 k/uL [facility] Basophils/100 WBC (Bld) 0.6 % [facility] Differential cell count method Nom (Bld) Auto [facility] Eosinophils (Bld) [#/Vol] 0.17 10*3/uL <0.46 k/uL [facility] Eosinophils/100 WBC (Bld) 3.3 % [facility] Erythrocyte distribution width (RBC) [Ratio] 14.2 % 11.5 - 15.0 % [facility] Hematocrit (Bld) [Volume fraction] 42.1 % 39.0 - 51.0 % [facility] Hemoglobin (Bld) [Mass/Vol] 13.6 g/dL 13.0 - 17.0 g/[facility] Immature granulocytes (Bld) [#/Vol] <0.10 k/uL [facility] Immature granulocytes/100 WBC (Bld) 0.2 % [facility] Lymphocytes (Bld) [#/Vol] 1.75 10*3/uL 1.00 - 4.00 k/uL [facility] Lymphocytes/100 WBC (Bld) 33.6 % [facility] MCH (RBC) [Entitic mass] 33.7 pg 26.0 - 34.0 pg [facility] MCHC (RBC) [Mass/Vol] 32.3 g/dL 30.5 - 36.0 g/dL [facility] MCV (RBC) [Entitic vol] 104.2 fL High 80.0 - 100.0 fL [facility] Monocytes (Bld) [#/Vol] 0.59 10*3/uL <0.87 k/uL [facility] Monocytes/100 WBC (Bld) 11.3 % [facility] Neutrophils (Bld) [#/Vol] 2.66 10*3/uL 1.45 - 7.50 k/uL [facility] Neutrophils/100 WBC (Bld) 51.0 % [facility] Nucleated RBC (Bld) [#/Vol] <0.01 k/uL [facility] Nucleated RBC/100 WBC (Bld) [Ratio] 0.0 /100 WBC [facility] Platelet mean volume (Bld) [Entitic vol] 10.2 fL 9.0 - 12.7 fL [facility] Platelets (Bld) [#/Vol] 207 10*3/uL 150 - 400 k/uL [facility] RBC (Bld) [#/Vol] 4.04 10*6/uL Low 4.20 - 6.0 0 m/uL [facility] WBC (Bld) [#/Vol] 5.21 10*3/uL 3.70 - 11. 00 k/uL [facility] Comprehensive metabolic 2000 panelon 05-31-2022 Albumin [Mass/Vol] 4.2 g/dL 3.9 - 4.9 g/dL [facility] ALP [Catalytic activity/Vol] 48 U/L 38 - 113 U/L [facility] ALT [Catalytic activity/Vol] 21 U/L 10 - 54 U/L [facility] Anion gap [Moles/Vol] 10 mmol/L 9 - 18 mmol/L [facility] AST [Catalytic activity/Vol] 27 U/L 14 - 40 U/L [facility] Bilirubin [Mass/Vol] 0.6 mg/dL 0.2 - 1 .3 mg/dL [facility] Calcium [Mass/Vol] 9.7 mg/dL 8.5 - 10. 2 mg/dL [facility] Chloride [Moles/Vol] 108 mmol/L High 97 - 10 5 mmol/L [facility] CO2 [Moles/Vol] 25 mmol/L 22 - 30 mmol/L [facility] Creatinine [Mass/Vol] 0.89 mg/dL 0.73 - 1.22 mg/dL [facility] Estimated Glomerular Filtration Rate 88 mL/min/1.73m >=60 mL/min/1.73m [facility] Glucose [Mass/Vol] 156 mg/dL High 74 - 99 mg/dL [facility] Potassium [Moles/Vol] 4.7 mmol/L 3.7 - 5.1 mmol/L [facility] Protein [Mass/Vol] 7.2 g/dL 6.3 - 8.0 g/dL [facility] Sodium [Moles/Vol] 143 mmol/L 136 - 144 mmol/L [facility] Urea nitrogen [Mass/Vol] 14 mg/dL 9 - 24 mg/dL [facility] LIPID PANEL, NONFASTINGon Cholesterol [Mass/Vol] 117 mg/dL <200 mg/dL [facility] HDL Cholesterol, Nonfasting 51 mg/dL >39 mg/dL [facility] LDL Cholesterol, Nonfasting 49 mg/dL <100 mg/dL [facility] LDL/HDL Ratio, Nonfasting 0.96 mg/dL <2.54 mg/dL [facility] Non HDL Cholesterol, Nonfasting 66 mg/dL <130 mg/dL [facility] Total Chol/HDL Ratio, Nonfasting 2.29 mg/dL <5.10 mg/dL [facility] Triglycerides, Nonfasting 85 mg/dL <150 mg/dL [facility] VLDL Cholesterol, Nonfasting 17 mg/dL <30 mg/dL [facility] PSA/PROSTSPECAG DIAGon 05-31 Prostate specific Ag [Mass/Vol] 1.42 ng/mL <2.60 ng/mL [facility] C-REACTIVE PROTEIN (CRP)on 0 09-19-2021 CRP [Mass/Vol] mg/L <0.9 mg/dL [facility] CBC W Auto Differential pane l (Bld)on 09-19-2021 Abs Immature Gran <0.03 <0.10 k/uL [facility] Basophils (Bld) [#/Vol] 0.05 10*3/uL <0.11 k/uL [facility] Basophils/100 WBC (Bld) 0.7 % [facility] Differential cell count method Nom (Bld) Auto [facility] Eosinophils (Bld) [#/Vol] 0.09 10*3/uL <0.46 k/uL [facility] Eosinophils/100 WBC (Bld) 1.2 % [facility] Erythrocyte distribution width (RBC) [Ratio] 13.3 % 11.5 - 15.0 % [facility] Hematocrit (Bld) [Volume fraction] 43.0 % 39.0 - 51.0 % [facility] Hemoglobin (Bld) [Mass/Vol] 14.5 g/dL 13.0 - 17.0 g/dL [facility] Immature Gran % 0.3 % [facility] Lymphocytes (Bld) [#/Vol] 2.18 10*3/uL 1.00 - 4.00 k/uL [facility] Lymphocytes/100 WBC (Bld) 29.1 % [facility] MCH (RBC) [Entitic mass] 34.1 pg High 26.0 - 34.0 pg [facility] MCHC (RBC) [Mass/Vol] 33.7 g/dL 30.5 - 36.0 g/dL [facility] MCV (RBC) [Entitic vol] 101.2 fL High 80.0 - 100.0 fL [facility] Monocytes (Bld) [#/Vol] 0.80 10*3/uL <0.87 k/uL [facility] Monocytes/100 WBC (Bld) 10.7 % [facility] Neutrophils (Bld) [#/Vol] 4.35 10*3/uL 1.45 - 7.50 k/uL [facility] Neutrophils/100 WBC (Bld) 58.0 % [facility] Nucleated RBC (Bld) [#/Vol] 10*3/uL <0.01 k/uL [facility] Nucleated RBC/100 WBC (Bld) [Ratio] 0.0 /100 WBC [facility] Platelet mean volume (Bld) [Entitic vol] 9.0 fL 9.0 - 12.7 fL [facility] Platelets (Bld) [#/Vol] 274 10*3/uL 150 - 400 k/uL [facility] RBC (Bld) [#/Vol] 4.25 10*6/uL 4.20 - 6.0 0 m/uL [facility] WBC (Bld) [#/Vol] 7.49 10*3/uL 3.70 - 11. 00 k/uL [facility] Comprehensive metabolic 2000 panelon 09-19-2021 Albumin [Mass/Vol] 4.7 g/dL 3.9 - 4.9 g/dL [facility] ALP [Catalytic activity/Vol] 62 U/L 38 - 113 U/L [facility] ALT [Catalytic activity/Vol] 17 U/L 10 - 54 U/L [facility] Anion gap [Moles/Vol] 12 mmol/L 9 - 18 mmol/L [facility] AST [Catalytic activity/Vol] 20 U/L 14 - 40 U/L [facility] Bilirubin [Mass/Vol] 0.6 mg/dL 0.2 - 1 .3 mg/dL [facility] Calcium [Mass/Vol] 10.4 mg/dL High 8.5 - 10. 2 mg/dL [facility] Chloride [Moles/Vol] 100 mmol/L 97 - 10 5 mmol/L [facility] CO2 [Moles/Vol] 27 mmol/L 22 - 30 mmol/L [facility] Creatinine [Mass/Vol] 1.22 mg/dL 0.73 - 1.22 mg/dL [facility] Estimated Glomerular Filtration Rate 61 mL/min/1.73m >=60 mL/min/1.73m [facility] Glucose [Mass/Vol] 147 mg/dL High 74 - 99 mg/dL [facility] Potassium [Moles/Vol] 4.9 mmol/L 3.7 - 5.1 mmol/L [facility] Protein [Mass/Vol] 7.8 g/dL 6.3 - 8.0 g/dL [facility] Sodium [Moles/Vol] 139 mmol/L 136 - 144 mmol/L [facility] Urea nitrogen [Mass/Vol] 25 mg/dL High 9 - 24 mg/dL [facility] Basophil percentageon 2021 Bilirubin [Mass/Vol] 0.70 mg/dL 0.20-1.00 [facility] Work Phone: Comment on above: For patients on eltr ombopag therapy, use of Dimension [place] TBIL is not recommended. Cholesterol [Mass/Vol] 117 mg/dL <200 [facility] Work Phone: [phone] Comment on above: <200 mg/dL Desirable 200-240 mg/dL Borderline >240 mg/dL High Risk Protein [Mass/Vol] 7.5 g/dL 6.4-8.2 [facility] Work Phone: [phone] Triglyceride [Mass/Vol] 131 mg/dL [facility] Work Phone: [phone] Comment on above: The drugs N-Acetylcy steine and Metamizole may falsely depress this assay.Serum Triglycerides Reference Interval Normal <150 mg/dL Borderline high 150 - 199 mg/dL High 200 - 499 mg/dL Very High > or = 500 mg/dL Direct bilirubinon 2 Bilirubin.direct [Mass/Vol] 0.19 mg/dL 0.00-0.30 [facility] Work Phone: [phone] Laboratory - Chemistry and C hemistry - challengeon 07-21-2021 ALP [Catalytic activity/Vol] 52 U/L 45-117 [facility] Work Phone: [phone] ALT [Catalytic activity/Vol] 24 U/L 16-61 [facility] Work Phone: [phone] Globulin (S) [Mass/Vol] 3.8 g/dL 2.2-4.2 [facility] Work Phone: [phone] Serum or plasma albumin jose urement (mass/volume)on 07-21-2021 Albumin [Mass/Vol] 3.7 g/dL 3.2-5.0 [facility] Work Phone: [phone] Serum or plasma cholesterol in HDL measurement (mass/volume)on 07-21-2021 Cholesterol in HDL [Mass/Vol] 48 mg/dL [facility] Work Phone: [phone] Comment on above: The drugs N-Acetylcy steine and Metamizole may falsely depress this assay. Reference Range HDL <40 mg/dL Low HDL Cholesterol HDL >or= 60 mg/dL High HDL Cholesterol Serum or plasma cholesterol in VLDL measurement (mass/volume)on 07-21-2021 Cholesterol in VLDL [Mass/Vol] 26 mg/dL 5-40 [facility] Work Phone: Serum or plasma low density lipoprotein (LDL) cholesterol measurement (mass/volume)on 07-21-2021 Cholesterol in LDL [Mass/Vol] 43 mg/dL 0-130 [facility] Work Phone: Thin prep Papanicolaou smear with manual screeningon 07-21-2021 Thin prep Papanicolaou smear with manual screening 21 U/L 15-37 [facility] Work Phone: XR Chest PA and Lateralon IMPRESSION: Bilateral pulmonary parenchymal opacities related to scarring or infiltrates. Small right-sided pleural effusion. [employer] Turner: RICARDO Transcribe Date/Time: Feb 11 2021 2:24P Dictated by : DAVID CLEMONS MD This examination was interpreted and the report reviewed and electronically signed by: DAVID CLEMONS MD on Feb 11 2021 2:28PM [facility] DIVISION OF RADIOLOGY * * *Final Report* [...] soft tissues: Unremarkable. DIVISION OF RADIOLOGY Provider, [facility] Parisa Douglas - 02/11/2021 * * *Final [...] scarring or infiltrates. Small right-sided pleural effusion. [employer] Turner: PSCB Transcribe Date/Time: Feb 11 2021 2:24P Dictated by : DAVID CLEMONS MD This examination was interpreted and the report reviewed and electronically signed by: DAVID CLEMONS MD on Feb 11 2021 2:28PM EST [facility] Radiology Study observation (narrative) [facility] XR Chest PA and LateralOrder ed By: [facility] Provider on 02-11-2021 [facility] Office Visiton 01-29-2017 Documentation of current medications (procedure) Done Invalid Interpretation Code [facility] Work Phone: [phone] Protein mass conc Done Invalid Interpretation Code [facility] [employer] [facility] Work Phone: [phone] Lab Report: Lipid Profileon 01-20-2017 HDL Cholesterol 45 mg/dL Invalid Interpretation Code [facility] [employer] [facility] Work Phone: [phone] LDL Cholesterol 37 mg/dL Invalid Interpretation Code 0-130 [facility] Work Phone: [phone] very low density lipoproteins 19 mg/dL Invalid Interpretation Code 5-40 [facility] Work Phone: [phone] Cholesterol 101 mg/dL Invalid Interpretation Code 200 [facility] Work Phone: [phone] Triglyceride 94 mg/dL Invalid Interpretation Code [employer] [facility] Work Phone: [phone] Replaced Document: Liver Pro fileon 01-20-2017 Alanine aminotransferase (ALT) 26 U/L Invalid Interpretation Code 12-78 [employer] [facility] [facility] Work Phone: [phone] Albumin 3.5 g/dL Invalid Interpretation Code 3.4-5.0 [facility] [employer] [facility] Work Phone: [phone] Alkaline phosphatase (ALP) 54 U/L Invalid Interpretation Code 45-117 [facility] Work Phone: [phone] ALP enzyme act/vol (Bld) 54 U/L Invalid Interpretation Code 45-117 [facility] Work Phone: [phone] Aspartate aminotransferase (AST) 21 U/L Invalid Interpretation Code 15-37 [facility] Work Phone: [phone] Bilirubin (direct) 0.16 mg/dL Invalid Interpretation Code 0.00-0.30 [facility] Work Phone: [phone] Bilirubin (total) 0.60 mg/dL Invalid Interpretation Code 0.20-1.00 [facility] Work Phone: [phone] Globulin 3.4 g/dL Invalid Interpretation Code 2.3-3.5 [facility] Work Phone: [phone] Globulin mass conc (S) 3.4 g/dL 2.3-3.5 [facility] [employer] Work Phone: [phone] Protein 6.9 g/dL Invalid Interpretation Code 6.4-8.2 [facility] Work Phone: [phone] Office Visiton 07-17-2016 Documentation of current medications (procedure) Done Invalid Interpretation Code [facility] Phone: [phone] Clinical Lists Update: 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 Left ventricular Ejection fraction 55 % Invalid Interpretation Code [facility] Phone: [phone] Office Visiton 07-19-2015 Tobacco smoking status NHIS Former smoker Invalid Interpretation Code [facility] Work Phone: [phone] Tobacco use CPHS Former smoker Invalid Interpretation Code [facility] Work Phone: [phone] Office Visiton 01-26-2015 cardiac risk group C Invalid Interpretation Code [facility] Phone: [phone] Dietary management education, guidance, and counseling (procedure) yes Invalid Interpretation Code [facility] Work Phone: [phone] General cardiovascular disease 10Y risk [#] Lyn.Kamar'James N/A Invalid Interpretation Code [facility] Work Phone: [phone] EKG Report: [place] ECG Obse rvationson 01-20-2014 GE use only - for [employer] import when terms are not otherwise specified 399 ms Invalid Interpretation Code [facility] Work Phone: [phone] QTc Med[place] 399 ms Invalid Interpretation Code [facility] Work Phone: Replaced Document: Joe Naik CG Observationson 01-20-2014 EKG QRS axis -9 deg Invalid Interpretation Code [facility] Work Phone: [phone] electrocardiogram interpretation Sinus Rhythm -First degree A-V block [place] = 230BORDERLINE RHYTHM Invalid Interpretation Code [facility] Work Phone: [phone] Interpretation Sinus Rhythm -First degree A-V block [place] = 230BORDERLINE RHYTHM Invalid Interpretation Code [facility] Work Phone: [phone] P Seco 36 deg Invalid Interpretation Code [facility] Work Phone: [phone] P wave axis, electrocardiogram 36 deg Invalid Interpretation Code [facility] Work Phone: [phone] VA Interval 230 ms Invalid Interpretation Code [facility] Work Phone: [phone] VA interval, electrocardiogram 230 ms Invalid Interpretation Code [facility] Work Phone: [phone] Pulse (Heart Rate) 401 ms Invalid Interpretation Code [facility] Work Phone: [phone] Pulse (Heart Rate) 61 /min Invalid Interpretation Code [facility] Work Phone: [phone] QRS axis, electrocardiogram -9 deg Invalid Interpretation Code [facility] Work Phone: [phone] QRS Duration 94 ms Invalid Interpretation Code [facility] Work Phone: [phone] QRS duration, electrocardiogram 94 ms Invalid Interpretation Code [facility] Work Phone: QT Interval new path ms Invalid Interpretation Code [facility] Work Phone: QT interval, electrocardiogram new path ms Invalid Interpretation Code [facility] Work Phone: T Seco 12 deg Invalid Interpretation Code [facility] Work Phone: T wave axis, electrocardiogram 12 deg Invalid Interpretation Code [facility] Work Phone: Clinical Lists 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 Anion gap 8 mmol/L Invalid Interpretation Code [facility] Work Phone: [phone] Anion gap 4 molar conc 8 Invalid Interpretation Code [facility] Work Phone: [phone] Anion gap molar conc 8 mmol/L [facility] Work Phone: [phone] BUN/Creatinine Ratio 15 mg/mg Invalid Interpretation Code [facility] Work Phone: [phone] Calcium 8.9 mg/dL Invalid Interpretation Code [facility] Work Phone: [phone] Chloride 109 mmol/L High [facility] Work Phone: [phone] CO2 25 mmol/L Invalid Interpretation Code [facility] Work Phone: [phone] CO2 ppres (BldV) 25 mmol/L Invalid Interpretation Code [facility] Work Phone: [phone] Creatinine 1.0 mg/dL Invalid Interpretation Code [facility] Work Phone: [phone] Glucose 122 mg/dL High [facility] Work Phone: [phone] Glucose mass conc 122 mg/dL High [facility] Work Phone: [phone] Potassium 4.0 mmol/L Invalid Interpretation Code [facility] Work Phone: [phone] Sodium 142 mmol/L Invalid Interpretation Code [facility] Work Phone: [phone] Urea nitrogen 15 mg/dL Invalid Interpretation Code [facility] Work Phone: [phone] Office Visiton 05-19-2011 Alcoholism counseling (procedure) no Invalid Interpretation Code [facility] Work Phone: [phone] Protein mass conc no Invalid Interpretation Code [facility] Work Phone: [phone] Vital Signs Date Time Vital Sign Value Performing Clinician Facility 10-29-2024 10:42-0400 Diastolic blood pressure 70 mm[Hg] Dr. César Merrill MD Work Phone: [facility] 10-29-2024 10:42-0400 Heart rate 60 /min Dr. César Merrill MD Work Phone: [facility] 10-29-2024 10:42-0400 Systolic blood pressure 149 mm[Hg] Dr. César Merrill MD Work Phone: 2(467)412-728391 [place] [address] 10-29-2024 10:29-0400 Body height 167.[address] César Merrill MD Work Phone: 4(430)359-309791 [place] [address] 10-29-2024 10:29-0400 Body mass index (BMI) [Ratio] 37.3 kg/m2 Dr. César Merrill MD Work Phone: 1(836)955-290291 [place] [address] 10-29-2024 10:29-0400 Body weight 104.[address] César Merrill MD Work Phone: 8(715)885-314491 [place] [address] 10-29-2024 10:29-0400 Respiratory rate 18 /min Dr. César Merrill MD Work Phone: 8(350)976-442291 [place] [address] 10-09-2024 15:06-0400 Body temperature 98.2 [degF] Dr. César Merrill MD Work Phone: 8(988)790-492691 [place] [address] 10-09-2024 15:06-0400 Body weight 105.[address] César Merrill MD Work Phone: 6(633)745-877391 [place] [address] 10-09-2024 15:06-0400 Diastolic blood pressure 70 mm[Hg] Dr. César Merrill MD Work Phone: 6(534)828-284991 [place] [address] 10-09-2024 15:06-0400 Heart rate 83 /min Dr. César Merrill MD Work Phone: 4(063)364-386991 [place] [address] 10-09-2024 15:06-0400 Respiratory rate 16 /min Dr. César Merrill MD Work Phone: 4(127)213-974891 [place] [address] 10-09-2024 15:06-0400 SaO2% (BldA) [Mass fraction] 93 % Dr. César Merrill MD Work Phone: 1(853)582-651591 [place] [address] 10-09-2024 15:06-0400 Systolic blood pressure 143 mm[Hg] Dr. César Merrill MD Work Phone: 4(162)263-627591 [place] [address] 08-29-2024 11:06-0400 Body temperature 98.6 [degF] Dr. César Merrill MD Work Phone: [facility] 08-29-2024 11:06-0400 Body weight 104.[address] César Merrill MD Work Phone: [facility] 08-29-2024 11:06-0400 Diastolic blood pressure 63 mm[Hg] Dr. César Merrill MD Work Phone: [facility] 08-29-2024 11:06-0400 Heart rate 62 /min Dr. César Merrill MD Work Phone: [facility] 08-29-2024 11:06-0400 Respiratory rate 18 /min Dr. César Merrill MD Work Phone: [facility] 08-29-2024 11:06-0400 SaO2% (BldA) [Mass fraction] 94 % Dr. César Merrill MD Work Phone: [facility] 08-29-2024 11:06-0400 Systolic blood pressure 128 mm[Hg] Dr. César Merrill MD Work Phone: [facility] 07-24-2024 08:29-0400 Body height 165.1 cm César Merrill MD Work Phone: [facility] 07-24-2024 08:29-0400 Body mass index (BMI) [Ratio] 37.77 kg/m2 César Merrill MD Work Phone: [facility] 07-24-2024 08:29-0400 Body weight 102.97 kg César Merrill MD Work Phone: [facility] 07-24-2024 08:29-0400 Diastolic blood pressure 54 mm[Hg] César Merrill MD Work Phone: [facility] 07-24-2024 08:29-0400 Heart rate 60 /min César Merrill MD Work Phone: [facility] 07-24-2024 08:29-0400 SaO2% (BldA) [Mass fraction] 95 % César Merrill MD Work Phone: [facility] 07-24-2024 08:29-0400 Systolic blood pressure 124 mm[Hg] César Merrill MD Work Phone: [facility] 07-10-2024 09:30-0400 Body height 167.[address] César Merrill MD Work Phone: [facility] 07-10-2024 09:30-0400 Body mass index (BMI) [Ratio] 37.4 kg/m2 Dr. César Merrill MD Work Phone: [facility] 07-10-2024 09:30-0400 Body weight 105.[address] César Merrill MD Work Phone: [facility] 07-10-2024 09:30-0400 Diastolic blood pressure 65 mm[Hg] Dr. César Merrill MD Work Phone: [facility] 07-10-2024 09:30-0400 Heart rate 55 /min Dr. César Merrill MD Work Phone: [facility] 07-10-2024 09:30-0400 Respiratory rate 18 /min Dr. César Merrill MD Work Phone: [facility] 07-10-2024 09:30-0400 SaO2% (BldA) [Mass fraction] 92 % Dr. César Merrill MD Work Phone: [facility] 07-10-2024 09:30-0400 Systolic blood pressure 142 mm[Hg] Dr. César Merrill MD Work Phone: [facility] 06-10-2024 13:21-0500 Body mass index (BMI) [Ratio] 39.16 kg/m2 Deysi Cain APRN.BIOLOGY INTERN Work Phone: [facility] 06-10-2024 13:21-0500 Body temperature 98.71 [degF] Deysi Cain APRN.CNP Work Phone: [facility] 06-10-2024 13:21-0500 Body weight 105.1 kg Deysi Cain APRN.CNP Work Phone: [facility] 06-10-2024 13:21-0500 Diastolic blood pressure 72 mm[Hg] Deysi Cain APRN.BIOLOGY INTERN Work Phone: [facility] 06-10-2024 13:21-0500 Heart rate 92 /min Deysi Cain APRN.BIOLOGY INTERN Work Phone: [facility] 06-10-2024 13:21-0500 Respiratory rate 18 /min Deysi Cain APRN.BIOLOGY INTERN Work Phone: [facility] 06-10-2024 13:21-0500 SaO2% (BldA) [Mass fraction] 94 % Deysi Cain APRN.BIOLOGY INTERN Work Phone: [facility] 06-10-2024 13:21-0500 Systolic blood pressure 142 mm[Hg] Deysi Cain APRN.BIOLOGY INTERN Work Phone: [facility] 02-14-2024 09:13-0400 Diastolic blood pressure 58 mm[Hg] César Merrill MD Work Phone: [facility] 02-14-2024 09:13-0400 Systolic blood pressure 132 mm[Hg] César Merrill MD Work Phone: [facility] 02-14-2024 08:39-0400 Body height 163.8 cm César Merrill MD Work Phone: [facility] 02-14-2024 08:39-0400 Body mass index (BMI) [Ratio] 37.33 kg/m2 César Merrill MD Work Phone: [facility] 02-14-2024 08:39-0400 Body weight 100.2 kg César Merrill MD Work Phone: [facility] 02-14-2024 08:39-0400 Heart rate 59 /min César Merrill MD Work Phone: [facility] 08-08-2023 09:31-0400 Body height 163.8 cm César Merrill MD Work Phone: [facility] 08-08-2023 09:31-0400 Body weight 101.15 kg César Merrill MD Work Phone: [facility] 08-08-2023 09:31-0400 Diastolic blood pressure 60 mm[Hg] César Merrill MD Work Phone: [facility] 08-08-2023 09:31-0400 Heart rate 76 /min César Merrill MD Work Phone: [facility] 08-08-2023 09:31-0400 Respiratory rate 16 /min César Merrill MD Work Phone: [facility] 08-08-2023 09:31-0400 Systolic blood pressure 118 mm[Hg] César Merrill MD Work Phone: [facility] 04-19-2023 09:58-0500 Body weight 101.15 kg May Ragland MD Work Phone: [facility] 04-19-2023 09:58-0500 Diastolic blood pressure 62 mm[Hg] May Ragland MD Work Phone: [facility] 04-19-2023 09:58-0500 Heart rate 81 /min May Ragland MD Work Phone: [facility] 04-19-2023 09:58-0500 SaO2% (BldA) [Mass fraction] 96 % May Ragland MD Work Phone: [facility] 04-19-2023 09:58-0500 Systolic blood pressure 142 mm[Hg] May Ragland MD Work Phone: [facility] 04-14-2023 10:56-0500 Heart rate 88 /min Dr. Cséar Merrill Work Phone: [facility] 04-14-2023 10:56-0500 Respiratory rate 22 /min Dr. César Merrill Work Phone: [facility] 04-14-2023 09:28-0500 Inhaled oxygen flow rate 2 L/min Dr. César Merrill Work Phone: 1(570)428-672991 [place] [address] 04-14-2023 09:28-0500 SaO2% (BldA) [Mass fraction] 91 % Dr. César Merrill Work Phone: 2(666)072-270929 [place] [address] 04-14-2023 07:37-0500 Body temperature 98.3 [degF] Dr. César Merrill Work Phone: 8(696)036-232391 [place] [address] 04-14-2023 07:37-0500 Diastolic blood pressure 56 mm[Hg] Dr. César Merrill Work Phone: 7(393)817-429291 [place] [address] 04-14-2023 07:37-0500 Systolic blood pressure 124 mm[Hg] Dr. César Merrill Work Phone: 0(619)875-283291 [place] [address] 04-12-2023 16:00-0500 Body height 167.[address] César Merrill Work Phone: 2(962)068-942991 [place] [address] 04-12-2023 16:00-0500 Body mass index (BMI) [Ratio] 37.9 kg/m2 Dr. César Merrill Work Phone: 1(879)774-583191 [place] [address] 04-12-2023 16:00-0500 Body weight 106.[address] César Merrill Work Phone: 5(487)967-140291 [place] [address] 03-26-2023 11:56-0500 Diastolic blood pressure 66 mm[Hg] Melody Jerome ADULT FAMILY HOME PROGRAM MANAGER.BIOLOGY INTERN Work Phone: [facility] 03-26-2023 11:56-0500 Systolic blood pressure 141 mm[Hg] Melody Jerome ADULT FAMILY HOME PROGRAM MANAGER.BIOLOGY INTERN Work Phone: [facility] 03-26-2023 11:50-0500 Body height 165.1 cm Melody Jerome ADULT FAMILY HOME PROGRAM MANAGER.BIOLOGY INTERN Work Phone: [facility] 03-26-2023 11:50-0500 Body temperature 98.01 [degF] Melody Jerome ADULT FAMILY HOME PROGRAM MANAGER.BIOLOGY INTERN Work Phone: [facility] 03-26-2023 11:50-0500 Body weight 103.42 kg Melody Jerome ADULT FAMILY HOME PROGRAM MANAGER.BIOLOGY INTERN Work Phone: [facility] 03-26-2023 11:50-0500 Heart rate 70 /min Melody Cano ADULT FAMILY HOME PROGRAM MANAGER.BIOLOGY INTERN Work Phone: [facility] 03-26-2023 11:50-0500 Respiratory rate 12 /min Melodyjuvenal Cano ADULT FAMILY HOME PROGRAM MANAGER.BIOLOGY INTERN Work Phone: [facility] 03-26-2023 11:50-0500 SaO2% (BldA) [Mass fraction] 99 % Melodyrigo Cano ADULT FAMILY HOME PROGRAM MANAGER.BIOLOGY INTERN Work Phone: [facility] 03-09-2023 10:57-0500 Diastolic blood pressure 78 mm[Hg] Dr. César Merrill Work Phone: [facility] 03-09-2023 10:57-0500 Systolic blood pressure 128 mm[Hg] Dr. César Merrill Work Phone: [facility] 03-09-2023 10:27-0500 Body mass index (BMI) [Ratio] 35.9 kg/m2 Dr. César Merrill Work Phone: 7(510)500-697829 [place] [address] 03-09-2023 10:27-0500 Body weight 101.[address] César Merrill Work Phone: [facility] 03-09-2023 10:27-0500 Heart rate 94 /min Dr. César Merrill Work Phone: [facility] 03-09-2023 10:27-0500 Respiratory rate 18 /min Dr. César Merrill Work Phone: [facility] 03-09-2023 10:27-0500 SaO2% (BldA) [Mass fraction] 95 % Dr. César Merrill Work Phone: [facility] 07-04-2022 09:18-0500 Body height 167.[address] César Merrill Work Phone: 8(088)285-355929 [place] [address] 07-04-2022 09:18-0500 Body mass index (BMI) [Ratio] 35.8 kg/m2 Dr. César Merrill Work Phone: [facility] 07-04-2022 09:18-0500 Body weight 100.[address] César Merrill Work Phone: [facility] 07-04-2022 09:18-0500 Diastolic blood pressure 67 mm[Hg] Dr. César Merrill Work Phone: [facility] 07-04-2022 09:18-0500 Heart rate 62 /min Dr. César Merrill Work Phone: [facility] 07-04-2022 09:18-0500 Respiratory rate 18 /min Dr. César Merrill Work Phone: [facility] 07-04-2022 09:18-0500 SaO2% (BldA) [Mass fraction] 95 % Dr. César Merrill Work Phone: [facility] 07-04-2022 09:18-0500 Systolic blood pressure 133 mm[Hg] Dr. César Merrill Work Phone: [facility] 05-31-2022 07:54-0500 Body height 165.1 cm César Merrill MD Work Phone: [facility] 05-31-2022 07:54-0500 Body weight 100.7 kg César Merrill MD Work Phone: [facility] 05-31-2022 07:54-0500 Diastolic blood pressure 68 mm[Hg] César Merrill MD Work Phone: [facility] 05-31-2022 07:54-0500 Heart rate 64 /min César Merrill MD Work Phone: [facility] 05-31-2022 07:54-0500 Respiratory rate 16 /min César Merrill MD Work Phone: [facility] 05-31-2022 07:54-0500 Systolic blood pressure 132 mm[Hg] César Merrill MD Work Phone: [facility] 01-11-2022 10:33-0400 Diastolic blood pressure 68 mm[Hg] Dr. César Merrill Work Phone: [facility] Work Phone: 01-11-2022 10:33-0400 Heart rate 60 /min Dr. César Merrill Work Phone: [facility] Work Phone: 01-11-2022 10:33-0400 Systolic blood pressure 142 mm[Hg] Dr. César Merrill Work Phone: [facility] Work Phone: 01-11-2022 10:00-0400 Body height 167.[address] César Merrill Work Phone: [facility] Work Phone: 01-11-2022 10:00-0400 Body mass index (BMI) [Ratio] 34.8 kg/m2 Dr. César Merrill Work Phone: [facility] Work Phone: 01-11-2022 10:00-0400 Body weight 97.[address] César Merrill Work Phone: [facility] Work Phone: 01-11-2022 10:00-0400 Respiratory rate 16 /min Dr. César Merrill Work Phone: [facility] Work Phone: 11-15-2021 08:00-0400 Body weight 98.43 kg César Merrill MD Work Phone: [facility] 11-15-2021 08:00-0400 Diastolic blood pressure 84 mm[Hg] César Merrill MD Work Phone: [facility] 11-15-2021 08:00-0400 Heart rate 78 /min César Merrill MD Work Phone: [facility] 11-15-2021 08:00-0400 Respiratory rate 14 /min César Merrill MD Work Phone: [facility] 11-15-2021 08:00-0400 Systolic blood pressure 132 mm[Hg] César Merrill MD Work Phone: [facility] 09-23-2021 11:04-0400 Body temperature 98.49 [degF] Katarzyna MITCHELL-C Work Phone: [facility] 09-23-2021 11:04-0400 Body weight 96.16 kg Katarzyna MITCHELL-C Work Phone: [facility] 09-23-2021 11:04-0400 Diastolic blood pressure 60 mm[Hg] Katarzyna MITCHELL-C Work Phone: [facility] 09-23-2021 11:04-0400 Heart rate 68 /min Katarzyna MITCHELL-C Work Phone: [facility] 09-23-2021 11:04-0400 Respiratory rate 16 /min Katarzyna MITCHELL-C Work Phone: [facility] 09-23-2021 11:04-0400 Systolic blood pressure 110 mm[Hg] Katarzyna MITCHELL-C Work Phone: [facility] 09-19-2021 09:29-0400 Body temperature 98.71 [degF] César Ghotra ADULT FAMILY HOME PROGRAM MANAGER.BIOLOGY INTERN Work Phone: [facility] 09-19-2021 09:29-0400 Body weight 93.44 kg César Ghotra ADULT FAMILY HOME PROGRAM MANAGER.BIOLOGY INTERN Work Phone: [facility] 09-19-2021 09:29-0400 Diastolic blood pressure 56 mm[Hg] César Ghotra ADULT FAMILY HOME PROGRAM MANAGER.BIOLOGY INTERN Work Phone: [facility] 09-19-2021 09:29-0400 Heart rate 92 /min César Ghotra ADULT FAMILY HOME PROGRAM MANAGER.BIOLOGY INTERN Work Phone: [facility] 09-19-2021 09:29-0400 Respiratory rate 16 /min César Ghotra ADULT FAMILY HOME PROGRAM MANAGER.BIOLOGY INTERN Work Phone: [facility] 09-19-2021 09:29-0400 SaO2% (BldA) [Mass fraction] 97 % César Ghotra ADULT FAMILY HOME PROGRAM MANAGER.BIOLOGY INTERN Work Phone: [facility] 09-19-2021 09:29-0400 Systolic blood pressure 132 mm[Hg] César Ghotra APRN.BIOLOGY INTERN Work Phone: [facility] 07-14-2021 10:03-0400 Body height 167.[address] César Merrill Work Phone: [facility] Work Phone: 07-14-2021 10:03-0400 Body mass index (BMI) [Ratio] 33.3 kg/m2 Dr. César Merrill Work Phone: [facility] Work Phone: 07-14-2021 10:03-0400 Body weight 93.[address] César Merrill Work Phone: [facility] Work Phone: 07-14-2021 10:03-0400 Diastolic blood pressure 58 mm[Hg] Dr. César Merrill Work Phone: [facility] Work Phone: 07-14-2021 10:03-0400 Heart rate 60 /min Dr. César Merrill Work Phone: [facility] Work Phone: 07-14-2021 10:03-0400 Respiratory rate 16 /min Dr. César Merrill Work Phone: [facility] Work Phone: 07-14-2021 10:03-0400 Systolic blood pressure 130 mm[Hg] Dr. César Merrill Work Phone: [facility] Work Phone: 01-29-2017 08:41-0400 BMI (Body Mass Index) 31.95 kg/m2 Padma Angelo [facility] Work Phone: 01-29-2017 08:41-0400 BP Diastolic 72 mm[Hg] Padma Baker [facility] Work Phone: 01-29-2017 08:41-0400 BP Systolic 130 mm[Hg] Padma Baker [facility] Work Phone: 01-29-2017 08:41-0400 Height 167.64 cm Padma Baker [facility] Work Phone: 01-29-2017 08:41-0400 Pulse (Heart Rate) 58 /min Padma Baker [facility] Work Phone: 01-29-2017 08:41-0400 Respiratory Rate 18 /min Padma Baker [facility] Work Phone: 01-29-2017 08:41-0400 Weight 89.81 kg Padma Baker [facility] Work Phone: 07-17-2016 12:00-0400 BMI (Body Mass Index) 33.73 kg/m2 Trey Malagon [employer] [facility] Work Phone: 07-17-2016 12:00-0400 BP Diastolic 52 mm[Hg] Trey Malagon TRAY SETTER [facility] Work Phone: 07-17-2016 12:00-0400 BP Systolic 128 mm[Hg] Trey Manas TRAY SETTER [facility] Work Phone: 07-17-2016 12:00-0400 Height 167.64 cm Trey Malagon TRAY SETTER [facility] Work Phone: 07-17-2016 12:00-0400 Pulse (Heart Rate) 60 /min Trey Malagon T[employer] SETTER [facility] Work Phone: 07-17-2016 12:00-0400 Respiratory Rate 18 /min Trey Malagon T[employer] SETTER [facility] Work Phone: 07-17-2016 12:00-0400 Weight 94.8 kg Tery Malagon T[employer] SETTER [facility] Work Phone: 01-14-2016 11:48-0400 BSA (Body Surface Area) 2.06 m2 Trey Malagon T[employer] SETTER [facility] Work Phone: 07-19-2015 09:04-0400 BP Diastolic 80 mm[Hg] Trey Manas MORENO [facility] Work Phone: 07-19-2015 [id number] BP Systolic 130 mm[Hg] Trey Manas TRAY SETTER [facility] Work Phone: 01-20-2014 14:06-0400 Heart rate 401 ms Padma Baker [facility] Work Phone: 01-20-2014 14:06-0400 Heart rate 61 /min Padma Baker [facility] Work Phone: Encounters Encounter Date Encounter Type Care Provider Facility Start: 11-18-2024 ambulatory Lenny Taylor Facility:[facility] Start: 11-12-2024 ambulatory César Merrill Facility :[facility] Start: 11-07-2024 Encounter for other preprocedural examination [facility] Start: 10-29-2024 Encounter for preprocedural cardiovascular examination Trey Malagon [facility] Start: 10-29-2024 End: 10-29-2024 Patient encounter procedure Trey Alvarado Manas TRAY SETTER-C -[facility] Work Phone: Start: 10-29-2024 End: 10-29-2024 Patient encounter status Trey Alvarado Manas TRAY SETTER-C [facility] Start: 10-29-2024 End: 10-29-[address] César Merrill MD Work Phone: -[facility] Start: 10-17-2024 End: 10-17-2024 Chart abstracting Diamond Cain MA [facility] Comment on above: Results (Outside res ults /) Start: 10-14-2024 End: 10-14-2024 Refill César Merrill MD Work Phone: [facility] Comment on above: Refill Request Start: 10-09-2024 End: 10-09-[address] Lenny Taylor MD -[facility] Work Phone: Start: 10-09-2024 End: 10-09-[address] César Merrill MD Work Phone: [facility] Work Phone: Start: 10-03-2024 End: 10-03-[address] César Merrill MD Work Phone: [facility] Work Phone: Start: 10-03-2024 End: 10-03-2024 Patient encounter procedure Sloane MITCHELL [facility] Work Phone: Start: 10-03-2024 End: 10-03-2024 ambulatory César Merrill Facility:[facility] Start: 09-10-2024 End: 09-10-2024 Refill César Merrill MD Work Phone: [facility] Comment on above: Refill Request Start: 09-02-2024 End: 09-02-2024 Chart abstracting César Merrill MD Work Phone: [facility] Comment on above: Outside Vascular Start: 08-29-2024 End: 08-29-2024 Patient encounter procedure Sloane MITCHELL [facility] Work Phone: Start: 08-29-2024 End: 08-29-2024 ambulatory César Merrill [facility] Start: 08-21-2024 End: 08-21-2024 ambulatory CÉSAR MERRILL Facility:[facility] Start: 07-31-2024 End: 08-05-2024 Telephone encounter César Merrill MD Work Phone: [facility] Comment on above: Patient Update Start: 07-25-2024 End: 07-30-2024 Follow-up encounter César Merrill MD Work Phone: [facility] Start: 07-24-2024 End: 07-24-2024 ambulatory CÉSAR MERRILL Facility:[facility] Start: 07-24-2024 End: 07-24-2024 Ophthalmic examination and evaluation César Merrill MD Work Phone: [facility] Start: 07-24-2024 End: 07-24-2024 Patient encounter procedure César Merrill MD Work Phone: [facility] Comment on above: Well adult exam (Bonita katie Dx); Type 2 diabetes mellitus without complication, without long-term current use of insulin (HCC); Diabetic eye exam (HCC); Hypertension, essential; Mixed hyperlipidemia; Atherosclerosis of [place] coronary artery of [place] heart without angina pectoris; KARLA (obstructive sleep apnea); Vitamin B12 deficiency; Benign prostatic hyperplasia with urinary frequency; Nocturnal leg cramps; Cyanosis; Diminished pulses in lower extremity; Screening for depression; Advance directive discussed with patient; Encounter for screening examination for other mental health and behavioral disorders Start: 07-24-2024 End: 07-24-2024 Patient encounter status César Merrill MD Work Phone: [facility] Start: 07-24-2024 Encounter for genera l adult medical examination without abnormal findings CÉSAR MERRILL [facility] Start: 07-24-2024 End: 07-24-2024 ambulatory CÉSAR MERRILL Facility:[facility] Start: 07-18-2024 End: 07-18-2024 Telephone encounter César Merrill MD Work Phone: [facility] Comment on above: Refill Request Start: 07-10-2024 End: 07-10-[address] London Tobar MD -[facility] Work Phone: Start: 07-10-2024 End: 07-10-2024 ambulatory César Merrill Facility:[facility] Start: 07-04-2024 End: 07-04-2024 Chart abstracting César Merrill MD Work Phone: [facility] Comment on above: Outside Diabetic Eye Exam Start: 06-10-2024 End: 06-10-2024 ambulatory CÉSAR MERRILL Facility:[facility] Start: 06-10-2024 End: 06-10-2024 Patient encounter procedure Deysi Cain APRN.CNP Work Phone: [facility] Comment on above: URI, acute (Primary Dx) Start: 02-15-2024 End: 02-15-2024 Telephone encounter César Merrill MD Work Phone: [facility] Comment on above: Results Start: 02-14-2024 End: 02-14-2024 ambulatory CÉSAR MERRILL Facility:[facility] Start: 02-14-2024 End: 02-14-2024 Ophthalmic examination and evaluation César Merrill MD Work Phone: [facility] Start: 02-14-2024 End: 02-14-2024 Patient encounter procedure César Merrill MD Work Phone: [facility] Comment on above: Type 2 diabetes channing itus without complication, without long- term current use of insulin (HCC) (Primary Dx); Diabetic eye exam (HCC); Hypertension, essential; Mixed hyperlipidemia; Atherosclerosis of [place] coronary artery of [place] heart without angina pectoris; KARLA (obstructive sleep apnea); Vitamin B12 deficiency; Need for vaccination; Encounter for immunization Start: 02-14-2024 End: 02-14-2024 ambulatory CÉSAR MERRILL Facility:[facility] Start: 09-14-2023 Telephone encounter César Merrill MD Work Phone: [facility] Comment on above: Results Start: 08-16-2023 Telephone encounter César Merrill MD Work Phone: [facility] Comment on above: Results Start: 08-09-2023 Telephone encounter César Merrill MD Work Phone: [facility] Comment on above: Results Start: 08-08-2023 End: 08-08-2023 Ophthalmic examination and evaluation César Merrill MD Work Phone: [facility] Work Phone: Start: 08-08-2023 End: 08-08-2023 Patient encounter procedure César Merrill MD Work Phone: [facility] Comment on above: Well adult exam (Bonita katie Dx); Type 2 diabetes mellitus without complication, without long-term current use of insulin (HCC); Diabetic eye exam (HCC); Hypertension, essential; Mixed hyperlipidemia; Atherosclerosis of [place] coronary artery of [place] heart without angina pectoris; KARLA (obstructive sleep apnea); Benign prostatic hyperplasia with urinary frequency; Advance directive discussed with patient; Screening for colon cancer; Prostate disorder; Nocturnal leg cramps Start: 08-08-2023 End: 08-08-2023 Patient encounter status César Merrill MD Work Phone: [facility] Work Phone: Start: 04-19-2023 End: 04-19-2023 Patient encounter procedure May Ragland MD Work Phone: Pulmonary Medicine Comment on above: Hypoxemia (Primary D x); History of COVID-19 Start: 04-14-2023 Non-patient / Non-visit Dr. Riccardo Merrill Work Phone: [facility] Work Phone: Start: 04-13-2023 Non-patient / Non-visit Dr. Riccardo Merrill Work Phone: [facility] Work Phone: Start: 04-12-2023 Non-patient / Non-visit Dr. Riccardo Merrill Work Phone: [facility] Work Phone: Start: 04-12-2023 End: 04-14-2023 Evaluation and management of inpatient Dr. César Merrill Work Phone: [facility] Work Phone: Start: 04-12-2023 End: 04-14-[address] César Merrill Work Phone: [facility] Work Phone: Start: 04-10-2023 Chart abstracting César winn MD Work Phone: [facility] Start: 04-10-2023 Ophthalmic examinati on and evaluation César Merrill MD Work Phone: [facility] Start: 03-26-2023 End: 03-26-2023 Patient encounter procedure Melody Cano APRN.BIOLOGY INTERN Work Phone: [facility] Comment on above: Preop examination (P rimary Dx) Start: 03-26-2023 End: 03-26-2023 Preprocedural examination done Melody Jerome FRAN Work Phone: [facility] Work Phone: Start: 03-15-2023 Telephone encounter César Merrill MD Work Phone: [facility] [place] Comment on above: pre-op form Start: 03-09-2023 End: 03-09-[address] César Merrill Work Phone: [facility] Work Phone: Start: 11-10-2022 Refill César guevara MD Work Phone: [facility] Comment on above: Refill Request Start: 08-08-2022 Refill César guevara MD Work Phone: [facility] Comment on above: Refill Request Start: 07-06-2022 Chart abstracting César winn MD Work Phone: [facility] Comment on above: Consult (Consult to Cardiology/labs) Start: 07-04-2022 End: 07-04-[address] César Merrill Work Phone: [facility] Work Phone: Start: 07-04-2022 End: 07-04-[address] César Merrill Work Phone: [facility] Start: 05-31-2022 End: 05-31-2022 Ophthalmic examination and evaluation César Merrill MD Work Phone: [facility] Start: 05-31-2022 End: 05-31-2022 Patient encounter procedure César Merrill MD Work Phone: [facility] Comment on above: Well adult exam (Bonita katie Dx); Type 2 diabetes mellitus without complication, without long-term current use of insulin (HCC); Diabetic eye exam (HCC); Hypertension, essential; Mixed hyperlipidemia; Atherosclerosis of [place] coronary artery of [place] heart without angina pectoris; KARLA (obstructive sleep apnea); Benign prostatic hyperplasia with urinary frequency; Osteoarthritis of multiple joints, unspecified osteoarthritis type; Advance directive discussed with patient; Encounter for immunization; Screening for colon cancer; Prostate disorder Start: 05-31-2022 End: 05-31-2022 Patient encounter status César Merrill MD Work Phone: [facility] Start: 05-08-2022 Refill César guevara MD Work Phone: [facility] Comment on above: Refill Request Start: 04-05-2022 Telephone encounter Meggan Srini Work Phone: Pulmonary Medicine Comment on above: Orders Start: 03-21-2022 Ophthalmic examinati on and evaluation Meggan Milligan Work Phone: [facility] Start: 02-10-2022 Refill César guevara MD Work Phone: [facility] Comment on above: Refill Request Start: 01-24-2022 Non-patient / Non-visit Dr. Riccardo Merrill Work Phone: [facility] Start: 01-24-2022 End: 01-24-[address] César Merrill Work Phone: [facility] Work Phone: Start: 01-24-2022 End: 01-24-[address] César Merrill Work Phone: [facility] Start: 01-11-2022 End: 01-11-[address] César Merrill Work Phone: [facility] [facility] Start: 11-16-2021 Telephone encounter César Merrill MD Work Phone: [facility] Comment on above: Results Start: 11-15-2021 End: 11-15-2021 Ophthalmic examination and evaluation César Merrill MD Work Phone: [facility] Start: 11-15-2021 End: 11-15-2021 Patient encounter procedure César Merrill MD Work Phone: [facility] Comment on above: Type 2 diabetes channing itus without complication, without long- term current use of insulin (HCC) (Primary Dx); Diabetic eye exam (HCC); Hypertension, essential; Mixed hyperlipidemia; Atherosclerosis of [place] coronary artery of [place] heart without angina pectoris; KARLA (obstructive sleep apnea); Nocturnal leg cramps; Benign prostatic hyperplasia with urinary frequency; Living will in place; Advance directive discussed with patient Start: 09-27-2021 Telephone encounter Katarzyna huddleston PA-C Work Phone: [facility] Comment on above: Results Start: 09-23-2021 End: 09-23-2021 Patient encounter procedure Katarzyna Munson PA-C Work Phone: [facility] Comment on above: Generalized abdomina l pain (Primary Dx); Hypercalcemia Start: 09-19-2021 Telephone encounter Tiffog manuel ADULT FAMILY HOME PROGRAM MANAGER.BIOLOGY INTERN Work Phone: [facility] Comment on above: Results Start: 09-19-2021 End: 09-19-2021 Patient encounter procedure César Ghotra ADULT FAMILY HOME PROGRAM MANAGER.BIOLOGY INTERN Work Phone: [facility] Comment on above: Abdominal pain, gene ralized (Primary Dx) Start: 08-09-2021 Refill César guevara MD Work Phone: [facility] Comment on above: Refill Request Start: 07-21-2021 Chart abstracting César winn MD Work Phone: [facility] Comment on above: Outside Labs Results Start: 07-21-2021 End: 07-21-[address] César Merrill Work Phone: [facility] Start: 07-14-2021 End: 07-14-[address] César Merrill Work Phone: [facility] [facility] Start: 06-27-2021 Refill César guevara MD Work Phone: [facility] Comment on above: Refill Request (NEW PHARMACY) Start: 05-12-2021 Patient encounter status Jorge Merrill MD Work Phone: [facility] Work Phone: Start: 02-24-2021 Ophthalmic examinati on and evaluation César Merrill MD Work Phone: [facility] Start: 02-11-2021 End: 02-11-2021 Subsequent hospital visit by physician Xr [facility] Work Phone: Radiology Comment on above: [...] 07-19-2015 End: 07-19-2015 *Hepatic Function Panel Terry Barab MD Work Phone: Start: 07-19-2015 End: 07-19-2015 [...] 1996 panel - Serum or Plasma Ray uGajardo MD Start: 12-29-2012 End: 01-06-2013 *Hepatic Function [...] Detail Author Start: 10-27-2030 Urine microalbumin profile [facility] Start: 02-13-2027 Diabetes Screening Diabetes Screenin g [facility] Start: 07-24-2025 Annual PCP Team Dock Guard kay Disease Visit Annual PCP Team Chronic Disease Visit [facility] Start: 07-24-2025 Anxiety Screening Anxiety Screening [facility] Start: 07-24-2025 BP Controlled (<130/80) BP Controlle d (<130/80) [facility] Start: 07-24-2025 Depression Screening Depression Scre ening [facility] Start: 07-24-2025 Diabetic foot examination Diabetic F oot Exam [facility] Start: 07-24-2025 Hepatitis B screening Urine Albumin:Creatinine Ratio [facility] Start: 07-24-2025 Hepatitis B surface antibody level LDL Cholesterol [facility] Start: 07-03-2025 Glaucoma screening Dilated Retinal E xam [facility] Start: 02-13-2025 Annual PCP Team Dock Guard kay Disease Visit Annual PCP Team Chronic Disease Visit [facility] Start: 02-13-2025 BP Controlled (<130/80) BP Controlle d (<130/80) [facility] Start: 01-27-2025 End: 01-27-2025 Patient encounter procedure 01/27/2025 8:40 AM EDT Office Visit [facility] [address] [place] [address] César Merrill MD [address] [place] [id number] 6 month follow up [facility] Comment on above: 6 month follow up Start: 01-24-2025 Hemoglobin A1c measurement HbA1C [facility] Start: 10-29-2024 Evaluation of diagno stic study results [facility] Start: 08-21-2024 End: 08-21-2024 Patient encounter procedure 08/21/2024 12:30 PM EDT Office Visit Vascul[facility] [address] [place] [address] Cyanosis [R23.0]; Diminished pulses in lower extremity [R09.89] [facility] Comment on above: Cyanosis [R23.0]; Di minished pulses in lower extremity [R09.89] Start: 08-14-2024 Hemoglobin A1c measurement HbA1C [facility] Start: 08-14-2024 End: 08-14-2024 Patient encounter procedure [facility] Comment on above: physical physical-discuss med compliance Start: 08-07-2024 Annual PCP Team Dock Guard kay Disease Visit Annual PCP Team Chronic Disease Visit [facility] Start: 08-07-2024 Anxiety Screening Anxiety Screening [facility] Start: 08-07-2024 BP Controlled (<130/80) BP Controlle d (<130/80) [facility] Start: 08-07-2024 Depression Screening Depression Scre ening [facility] Start: 08-07-2024 Diabetic foot examination Diabetic F oot Exam [facility] Start: 08-07-2024 Hepatitis B screening Urine Albumin:Creatinine Ratio [facility] Start: 08-07-2024 Hepatitis B surface antibody level LDL Cholesterol [facility] Start: 08-07-2024 RSV Vaccine (1 - 1-d ose 60+ series) RSV Vaccine (1 - 1-dose 60+ series) [facility] Comment on above: Postponed from 02/18 (Insurance Coverage) Start: 08-07-2024 RSV Vaccine (1 - 1-d ose 75+ series) RSV Vaccine (1 - 1-dose 75+ series) [facility] Comment on above: Postponed from 02/18 (Insurance Coverage) Start: 08-07-2024 Shingrix Vaccine (2 of 2) Tam grix Vaccine (2 of 2) [facility] Comment on above: Postponed from 12/22 (Declined at this time) Start: 07-24-2024 End: 10-23-2024 Microalbumin/Creatinine [Mass Ratio] in Urine [facility] Work Phone: Comment on above: Expected: 07/24/2024 , Expires: 10/23/2024 Start: 04-30-2024 Advance Directive Discussion Advance Directive Discussion [facility] Start: 04-10-2024 Glaucoma screening Dilated Retinal E xam [facility] Start: 03-26-2024 Annual PCP Team Dock Guard kay Disease Visit Annual PCP Team Chronic Disease Visit [facility] Start: 02-14-2024 End: 02-14-2024 Patient encounter procedure 02/14/2024 9:20 AM EDT Office Visit [facility] [place] [address] [facility] [place] [address] César Merrill MD [address] [place] [address] 6 month follow up [facility] Comment on above: 6 month follow up Start: 02-07-2024 Hemoglobin A1c measurement HbA1C [facility] Start: 02-06-2024 Annual PCP Team Dock Guard kay Disease Visit Annual PCP Team Chronic Disease Visit [facility] Start: 02-06-2024 BP Controlled (<130/80) BP Controlle d (<130/80) [facility] Start: 02-06-2024 Covid-19 Vaccine (#1) Covid-19 Vacci ne (#1) [facility] Comment on above: Postponed from 08/19 (Declined at this time) Start: 02-06-2024 Covid-19 Vaccine ( season) Covid-19 Vaccine ( season) [facility] Comment on above: Postponed from 12/29 (Declined at this time) Start: 02-06-2024 Hepatitis B Vaccine (1 of 3 - Risk 3-dose series) Hepatitis B Vaccine (1 of 3 - Risk 3-dose series) [facility] Comment on above: Postponed from 02/18 (Declined at this time) Start: 12-30-2023 Covid-19 Vaccine ( season) Covid-19 Vaccine ( season) [facility] Start: 12-30-2023 Influenza vaccination Influenza Vacc ine (#1) [facility] Start: 09-14-2023 End: 12-14-2023 CBC W Auto Differential panel - Blood COMPLETE BLOOD COUNT AND DIFFERENTIAL Lab Routine Vitamin B12 deficiency Expected: 09/14/2023, Expires: 12/14/2023 [facility] Work Phone: Comment on above: Expected: 09/14/2023 , Expires: 12/14/2023 Start: 09-14-2023 End: 12-14-2023 Cobalamin (Vitamin B12) [Mass/volume] in Serum or Plasma VITAMIN B12 Lab Routine Vitamin B12 deficiency Expected: 09/14/2023, Expires: 12/14/2023 [facility] Work Phone: Comment on above: Expected: 09/14/2023 , Expires: 12/14/2023 Start: 08-09-2023 End: 11-08-2023 Cobalamin (Vitamin B12) [Mass/volume] in Serum or Plasma VITAMIN B12 Lab Routine Anemia, unspecified type Expected: 08/09/2023, Expires: 11/08/2023 [facility] Work Phone: Comment on above: Expected: 08/09/2023 , Expires: 11/08/2023 Start: 08-09-2023 End: 11-08-2023 Ferritin [Mass/volume] in Serum or Plasma FERRITIN Lab Routine Anemia, unspecified type Expected: 08/09/2023, Expires: 11/08/2023 [facility] Work Phone: Comment on above: Expected: 08/09/2023 , Expires: 11/08/2023 Start: 08-09-2023 End: 11-08-2023 Folate [Mass/volume] in Serum or Plasma FOLATE, SERUM Lab Routine Anemia, unspecified type Expected: 08/09/2023, Expires: 11/08/2023 [facility] Work Phone: Comment on above: Expected: 08/09/2023 , Expires: 11/08/2023 Start: 08-09-2023 End: 11-08-2023 Iron and Iron binding capacity panel - Serum or Plasma IRON AND TIBC Lab Routine Anemia, unspecified type Expected: 08/09/2023, Expires: 11/08/2023 [facility] Work Phone: Comment on above: Expected: 08/09/2023 , Expires: 11/08/2023 Start: 05-31-2023 3 comp foot exam completed DIABETIC FOOT EXAM [facility] Start: 05-31-2023 ANNUAL PCP TEAM DAYCARE DIRECTOR KAY DISEASE VISIT ANNUAL PCP TEAM CHRONIC DISEASE VISIT [facility] Start: 05-31-2023 Diabetic foot examination Diabetic F oot Exam [facility] Start: 05-31-2023 Hepatitis B screening URINE ALBUMIN:CREATININE RATIO [facility] Start: 05-31-2023 Hepatitis B surface antibody level LDL CHOLESTEROL [facility] Start: 04-14-2023 Patient discharge [facility] Start: 04-13-2023 Continuous pulse oximetry [facility] Start: 04-13-2023 Physiotherapy of chest [facility] Start: 04-13-2023 Inhalation therapy procedure [facility] Start: 04-12-2023 Care regimes management [facility] Start: 04-12-2023 Notification of physician [facility] Start: 04-12-2023 Oxygen therapy [facility] Start: 04-12-2023 Following clinical p athway protocol [facility] Start: 04-12-2023 Admission procedure [facility] Start: 04-12-2023 Application of ice c ollar, cap or bag [facility] Start: 04-12-2023 Application of intermittent pneumatic compression device [facility] Start: 04-12-2023 Catheterization of vein [facility] Start: 04-12-2023 Consultation [facility] Start: 04-12-2023 Following clinical p athway protocol [facility] Start: 04-12-2023 Introduction of urin cas catheter [facility] Start: 04-12-2023 Maintenance of drain age tube [facility] Start: 04-12-2023 Measuring intake and output [facility] Start: 04-12-2023 Neurovascular assessment [facility] Start: 04-12-2023 Patient education [facility] Start: 04-12-2023 Procedure discontinued [facility] Start: 04-12-2023 Provision of activit y privileges [facility] Start: 04-12-2023 Recommendation to co nael with treatment [facility] Start: 04-12-2023 Referral to service [facility] Start: 04-12-2023 Taking patient vital signs [facility] Start: 03-16-2023 Hepatitis C antibody , confirmatory test DILATED RETINAL EXAM [facility] Start: 12-29-2022 Influenza vaccination INFLUENZA (#1) [facility] Start: 11-28-2022 Hemoglobin A1c measurement HbA1C [facility] Start: 11-28-2022 Hemoglobin A1c/Hemoglobin.total in Blood HBA1C [facility] Start: 11-15-2022 ANNUAL PCP TEAM DAYCARE DIRECTOR KAY DISEASE VISIT ANNUAL PCP TEAM CHRONIC DISEASE VISIT [facility] Start: 11-15-2022 BP CONTROLLED (<130/80) BP CONTROLLE D (<130/80) [facility] Start: 11-15-2022 COVID-19 VACCINE (#1) COVID-19 VACCI NE (#1) [facility] Comment on above: Postponed from 08/19 (Declined at this time) Start: 11-15-2022 Hepatitis B screening URINE ALBUMIN:CREATININE RATIO [facility] Start: 11-15-2022 Hepatitis B surface antibody level LDL CHOLESTEROL [facility] Start: 11-15-2022 SHINGRIX VACCINE (2 of 2) TAM GRIX VACCINE (2 of 2) [facility] Comment on above: Postponed from 12/22 (Insurance Coverage) Start: 09-23-2022 ANNUAL PCP TEAM DAYCARE DIRECTOR KAY DISEASE VISIT ANNUAL PCP TEAM CHRONIC DISEASE VISIT [facility] Start: 09-23-2022 BP CONTROLLED (<130/80) BP CONTROLLE D (<130/80) [facility] Start: 06-05-2022 FECAL OCCULT BLOOD FECAL OCCULT BLOO D [facility] Start: 06-05-2022 Screening for malign ant neoplasm of colon Fecal Occult Blood [facility] Start: 05-31-2022 End: 07-31-2022 ALBUMIN/CREAT RATIO RND UR [facility] Work Phone: Comment on above: Expected: 05/31/2022 , Expires: 07/31/2022 Start: 05-31-2022 End: 07-31-2022 Hemoglobin A1c in Blood [facility] Work Phone: Comment on above: Expected: 05/31/2022 , Expires: 07/31/2022 Start: 05-31-2022 End: 07-31-2022 Urinalysis complete panel - Urine [facility] Work Phone: Comment on above: Expected: 05/31/2022 , Expires: 07/31/2022 Start: 05-18-2022 Hemoglobin A1c/Hemoglobin.total in Blood HBA1C [facility] Start: 05-12-2022 3 comp foot exam completed DIABETIC FOOT EXAM [facility] Start: 05-12-2022 ANNUAL PCP TEAM DAYCARE DIRECTOR KAY DISEASE VISIT ANNUAL PCP TEAM CHRONIC DISEASE VISIT [facility] Start: 04-30-2022 ADVANCE DIRECTIVE DISCUSSION ADVANCE DIRECTIVE DISCUSSION [facility] Start: 04-30-2022 DEPRESSION ASSESSMENT DEPRESSION ASS ESSMENT [facility] Start: 02-24-2022 Hepatitis C antibody , confirmatory test DILATED RETINAL EXAM [facility] Start: 12-29-2021 Influenza vaccination INFLUENZA (#1) [facility] Start: 10-27-2021 BP CONTROLLED (<130/80) BP CONTROLLE D (<130/80) [facility] Start: 10-27-2021 COVID-19 VACCINE (#1) COVID-19 VACCI NE (#1) [facility] Comment on above: Postponed from 02/18 (Declined at this time) Start: 10-27-2021 COVID-19 VACCINE (1) COVID-19 VACCIN E (1) [facility] Comment on above: Postponed from 02/18 (Declined at this time) Start: 10-27-2021 Hepatitis B screening URINE ALBUMIN:CREATININE RATIO [facility] Start: 10-27-2021 Hepatitis B surface antibody level LDL CHOLESTEROL [facility] Start: 09-23-2021 End: 11-23-2021 Calcium [Mass/volume] in Serum or Plasma [facility] Work Phone: Comment on above: Expected: 09/23/2021 , Expires: 11/23/2021 Start: 09-23-2021 End: 11-23-2021 PTH INTACT BLD [facility] Work Phone: Comment on above: Expected: 09/23/2021 , Expires: 11/23/2021 Start: 09-19-2021 End: 11-19-2021 Erythrocyte sedimentation rate [facility] Work Phone: Comment on above: Expected: 09/19/2021 , Expires: 11/19/2021 Start: 08-10-2021 Hemoglobin A1c/Hemoglobin.total in Blood HBA1C [facility] Start: 04-30-2021 ADVANCE DIRECTIVE DISCUSSION ADVANCE DIRECTIVE DISCUSSION [facility] Start: 04-30-2021 DEPRESSION ASSESSMENT DEPRESSION ASS ESSMENT [facility] Start: 12-22-2020 SHINGRIX VACCINE (2 of 2) TAM GRIX VACCINE (2 of 2) [facility] Start: 02-19-2020 RSV Vaccine (1 - 1-d ose 75+ series) RSV Vaccine (1 - 1-dose 75+ series) [facility] Start: 08-20-2017 End: 08-20-2017 Appointment Appointment [facility] Work Phone: Start: 07-23-2017 End: 01-23-2017 *Hepatic Function Panel *Hepatic Function Panel [facility] Work Phone: Start: 07-23-2017 End: 01-23-2017 Lipid 1996 panel *Lipid Profile CC [facility] Work Phone: Start: 07-23-2017 End: 01-23-2017 *Hepatic Function Panel *Hepatic Function Panel [facility] Work Phone: Start: 07-23-2017 End: 01-23-2017 Lipid panel [AGGREGATE] *Lipid Profile CC PCP [facility] Work Phone: Start: 01-29-2017 End: 01-29-2017 GREGORY JENKINS [facility] Work Phone: Start: 01-29-2017 End: 01-29-2017 Follow Up Appt 6 months Follow Up Appt 6 months [facility] Work Phone: Start: 01-29-2017 End: 01-29-2017 Appointment Appointment [facility] Work Phone: Start: 01-29-2017 End: 01-29-2017 GREGORY JENKINS [facility] Work Phone: Start: 01-29-2017 End: 01-29-2017 Follow Up Appt 6 months Follow Up Appt 6 months [facility] Work Phone: Start: 01-12-2017 End: 01-22-2017 *Hepatic Function Panel *Hepatic Function Panel [facility] Work Phone: Start: 01-12-2017 End: 01-22-2017 Lipid 1996 panel *Lipid Profile CC PCP [facility] Work Phone: Start: 01-12-2017 End: 01-22-2017 *Hepatic Function Panel *Hepatic Function Panel [facility] Work Phone: Start: 01-12-2017 End: 01-22-2017 Lipid panel [AGGREGATE] *Lipid Profile CC PCP [facility] Work Phone: Start: 07-17-2016 End: 07-17-2016 DJN DJN [facility] Work Phone: Start: 07-17-2016 End: 07-17-2016 Follow Up Appt 6 months Follow Up Appt 6 months [facility] Work Phone: Start: 07-17-2016 End: 07-17-2016 DJN DJN [facility] Work Phone: Start: 07-17-2016 End: 07-17-2016 Follow Up Appt 6 months Follow Up Appt 6 months [facility] Work Phone: Start: 07-12-2016 End: 07-13-2016 *Hepatic Function Panel *Hepatic Function Panel [facility] Work Phone: Start: 07-12-2016 End: 07-14-2016 Lipid 1996 panel *Lipid Profile CC PCP [facility] Work Phone: Start: 07-12-2016 End: 07-13-2016 *Hepatic Function Panel *Hepatic Function Panel [facility] Work Phone: Start: 07-12-2016 End: 07-14-2016 Lipid panel [AGGREGATE] *Lipid Profile CC PCP [facility] Work Phone: Start: 01-19-2016 End: 01-10-2016 *Hepatic Function Panel *Hepatic Function Panel [facility] Work Phone: Start: 01-19-2016 End: 01-10-2016 *Hepatic Function Panel *Hepatic Function Panel [facility] Work Phone: Start: 01-14-2016 End: 01-14-2016 DJN DJN [facility] Work Phone: Start: 01-14-2016 End: 01-14-2016 Follow Up Appt 6 months Follow Up Appt 6 months [facility] Work Phone: Start: 01-14-2016 End: 01-14-2016 DJN DJN [facility] Work Phone: Start: 01-14-2016 End: [...] 07-19-2015 *Hepatic Function Panel *Hepatic Function Panel [facility] Work Phone: Start: 07-26-2015 End: 07-19-2015 Lipid 1996 panel *Lipid Profile CC PCP [facility] Work Phone: Start: 07-26-2015 End: 07-19-2015 *Hepatic Function Panel *Hepatic Function Panel [facility] Work Phone: Start: 07-26-2015 End: 07-19-2015 Lipid panel [AGGREGATE] *Lipid Profile CC PCP [facility] Work Phone: Start: 07-19-2015 End: 07-19-2015 DJN DJN [facility] Work Phone: Start: 07-19-2015 End: 07-19-2015 Follow Up Appt 6 months Follow Up Appt 6 months [facility] Work Phone: Start: 07-19-2015 End: 07-19-2015 DJN DJN [facility] Work Phone: Start: 07-19-2015 End: 07-19-2015 Follow Up Appt 6 months Follow Up Appt 6 months [facility] Work Phone: Start: 01-26-2015 End: 01-26-2015 DJN BONNIEN [facility] Work Phone: Start: 01-26-2015 End: 01-26-2015 Follow Up Appt 6 months Follow Up Appt 6 months [facility] Work Phone: Start: 01-26-2015 End: 01-26-2015 Stress Echocardiogram (treadmill) Stress Echocardiogram (treadmill) [facility] Work Phone: Start: 01-26-2015 End: 01-26-2015 DJN GREGORY [facility] Work Phone: Start: 01-26-2015 End: 01-26-2015 Follow Up Appt 6 months Follow Up Appt 6 months [facility] Work Phone: Start: 01-26-2015 End: 01-26-2015 Stress Echocardiogram (treadmill) Stress Echocardiogram (treadmill) [facility] [employer] Work Phone: Start: 01-22-2015 End: 01-25-2015 *Hepatic Function Panel *Hepatic Function Panel [facility] Work Phone: Start: 01-22-2015 End: 01-25-2015 Lipid 1996 panel *Lipid Profile CC PCP [facility] Work Phone: Start: 01-22-2015 End: 01-25-2015 *Hepatic Function Panel *Hepatic Function Panel [facility] Work Phone: Start: 01-22-2015 End: 01-25-2015 Lipid panel [AGGREGATE] *Lipid Profile CC PCP [facility] Work Phone: Start: 07-15-2014 End: 07-20-2014 *Hepatic Function Panel *Hepatic Function Panel [facility] Work Phone: Start: 07-15-2014 End: 07-20-2014 Lipid 1996 panel *Lipid Profile CC PCP [facility] Work Phone: Start: 07-15-2014 End: 07-20-2014 *Hepatic Function Panel *Hepatic Function Panel [facility] Work Phone: Start: 07-15-2014 [...] Phone: Start: 01-20-2014 End: 01-20-2014 DJN BONNIEHarry [facility] Work Phone: Start: 01-20-2014 End: 01-22-2014 Electrocardiogram, complete EKG (In office) [facility] Work Phone: Start: 01-20-2014 End: 01-20-2014 Follow Up Appt 1 year Follow Up Appt 1 year [facility] Work Phone: Start: 12-29-2013 End: 01-15-2014 *Hepatic Function Panel *Hepatic Function Panel [facility] Work Phone: Start: 12-29-2013 End: 01-15-2014 Lipid 1996 panel *Lipid Profile CC PCP [facility] Work Phone: Start: 12-29-2013 End: 01-15-2014 *Hepatic Function Panel *Hepatic Function Panel [facility] Work Phone: Start: 12-29-2013 End: 01-15-2014 Lipid panel [AGGREGATE] *Lipid Profile CC PCP [facility] Work Phone: Start: 06-28-2013 End: 07-16-2013 *Hepatic Function Panel *Hepatic Function Panel [facility] Work Phone: Start: 06-28-2013 End: 07-16-2013 Lipid 1996 panel *Lipid Profile CC PCP [facility] Work Phone: Start: 06-28-2013 End: 07-16-2013 *Hepatic Function Panel *Hepatic Function Panel [facility] Work Phone: Start: 06-28-2013 End: 07-16-2013 Lipid panel [AGGREGATE] *Lipid Profile CC PCP [facility] Work Phone: Start: 01-14-2013 End: 01-14-2013 GREGORY JENKINS [facility] Work Phone: Start: 01-14-2013 End: 01-14-2013 Follow Up Appt 1 year Follow Up Appt 1 year [facility] Work Phone: Start: 01-14-2013 End: 01-14-2013 Stress Echocardiogram (treadmill) Stress Echocardiogram (treadmill) [facility] Phone: Start: 01-14-2013 End: 01-14-2013 GREGORY JENKINS [facility] Phone: Start: 01-14-2013 End: 01-14-2013 Follow Up Appt 1 year Follow Up Appt 1 year [facility] Work Phone: Start: 01-14-2013 End: 01-14-2013 Stress Echocardiogram (treadmill) Stress Echocardiogram (treadmill) [facility] Phone: Start: 12-29-2012 End: 01-06-2013 *Hepatic Function Panel *Hepatic Function Panel [facility] Phone: Start: 12-29-2012 End: 01-06-2013 Lipid 1996 panel *Lipid Profile [facility] Phone: Start: 12-29-2012 End: 01-06-2013 *Hepatic Function Panel *Hepatic Function Panel [facility] Phone: Start: 12-29-2012 End: 01-06-2013 Lipid panel [AGGREGATE] *Lipid Profile [facility] Work Phone: Start: 06-25-2012 End: 07-18-2012 *Hepatic Function Panel *Hepatic Function Panel [facility] Phone: Start: 06-25-2012 End: 06-25-2012 Ecg routine ecg w/least 12 lds w/i&r EKG (In office) [facility] Phone: Start: 06-25-2012 End: 06-25-2012 Follow Up Appt 6 months Follow Up Appt 6 months [facility] Phone: Start: 06-25-2012 End: 07-18-2012 Lipid 1996 panel *Lipid Profile [facility] Phone: Start: 06-25-2012 End: 07-18-2012 *Hepatic Function Panel *Hepatic Function Panel [facility] [employer] Work Phone: Start: 06-25-2012 End: 06-25-2012 Electrocardiogram, complete EKG (In office) [facility] Phone: Start: 06-25-2012 End: 06-25-2012 Follow Up Appt 6 months Follow Up Appt 6 months [facility] Phone: Start: 06-25-2012 End: 07-18-2012 Lipid panel [AGGREGATE] *Lipid Profile [facility] [employer] Work Phone: Start: 12-21-2011 End: 01-11-2012 *Hepatic Function Panel *Hepatic Function Panel [facility] Phone: Start: 12-21-2011 End: 12-21-2011 Follow Up Appt 6 months Follow Up Appt 6 months [facility] Phone: Start: 12-21-2011 End: 01-11-2012 Lipid 1996 panel *Lipid Profile [facility] Phone: Start: 12-21-2011 End: 01-11-2012 *Hepatic Function Panel *Hepatic Function Panel [facility] Phone: Start: 12-21-2011 End: 12-21-2011 Follow Up Appt 6 months Follow Up Appt 6 months [facility] [employer] Work Phone: Start: 12-21-2011 End: 01-11-2012 Lipid panel [AGGREGATE] *Lipid Profile [facility] Work Phone: Start: 05-19-2011 End: 05-19-2011 Ecg routine ecg w/least 12 lds w/i&r EKG (In office) [facility] Work Phone: Start: 05-19-2011 End: 05-19-2011 Echocardiography Echocardiogram (complete) [facility] Work Phone: Start: 05-19-2011 End: 05-19-2011 Follow Up Appt 3 months Follow Up Appt 3 months [facility] Work Phone: Start: 05-19-2011 End: 05-19-2011 Nuclear stress test -adenosine Nuclear stress test -adenosine [facility] Work Phone: Start: 05-19-2011 End: 05-19-2011 Echocardiography Echocardiogram (complete) [facility] Work Phone: Start: 05-19-2011 End: 05-19-2011 Electrocardiogram, complete EKG (In office) [facility] Work Phone: Start: 05-19-2011 End: 05-19-2011 Follow Up Appt 3 months Follow Up Appt 3 months [employer] [facility] Work Phone: Start: 05-19-2011 End: 05-19-2011 Nuclear stress test -adenosine Nuclear stress test -adenosine [facility] Work Phone: Start: 2005 RSV Vaccine (1 - 1-d ose 60+ series) RSV Vaccine (1 - 1-dose 60+ series) [facility] Hemoglobin.gastroint estina l.lower [Presence] in Stool by Immunoassay FECAL OCCULT BLOOD TEST Lab Routine Well adult exam Screening for colon cancer Ordered: 05/31/2022 [facility] Work Phone: Comment on above: Ordered: 05/31/2022 Hemoglobin.gastroint estina l.lower [Presence] in Stool by Immunoassay IMMUNOCHEMICAL FECAL OCCULT BLOOD TEST Lab Routine Screening for colon cancer Ordered: 08/08/2023 [facility] Work Phone: Comment on above: Ordered: 08/08/2023 [facility] W str ess and W radionuclide IV [facility] OXIMETRY - NOCTURNAL OXIMETRY - NOCTURNAL Procedures Routine Pneumonia due to COVID-19 virus Ordered: 04/10/2022 [facility] Work Phone: Comment on above: Ordered: 04/10/2022 End: 05-18-2024 OXIMETRY WITH AMBULATION OXIMETRY WITH AMBULATION PFT Routine Hypoxemia 1 Occurrences starting 04/19/2023 until 05/18/2024 [facility] Work Phone: Comment on above: 1 Occurrences starti ng 04/19/2023 until 05/18/2024 Patient Education [facility] Work Phone: Patient referral [facility] Work Phone: End: 07-24-2025 US Lower extremity artery - bilateral [facility] Vascular Lab Routine Cyanosis Diminished pulses in lower extremity 1 Occurrences starting 07/24/2024 until 07/24/2025 [facility] Comment on above: 1 Occurrences starti ng 07/24/2024 until 07/24/2025 [facility] Immunizations Immunization Date Immunization Notes Care Provider Fa [facility] 02-14-2024 influenza, high dose seasonal, preservative-free César Merrill MD Work Phone: [facility] 02-14-2024 zoster vaccine recombinant César Merrill MD Work Phone: [facility] 02-05-2023 influenza (HD-IIV4) vaccine, age 65+ yr, high dose, quadrivalent, PF (FLUZONE HIGH-DOSE) César Merrill MD Work Phone: [facility] 02-05-2023 influenza virus vacc ine, unspecified formulation Xr [place] Work Phone: [facility] 05-31-2022 influenza, high-dose , quadrivalent vaccine (FLUZONE HIGH DOSE QUADRIVALENT) César Merrill MD Work Phone: [facility] 03-07-2021 influenza, high-dose , quadrivalent vaccine (FLUZONE HIGH DOSE QUADRIVALENT) César Merrill MD Work Phone: [facility] 06-30-2021 tetanus toxoid, redu silva diphtheria toxoid, and acellular pertussis vaccine, adsorbed César Merrill MD Work Phone: [facility] 10-27-2020 zoster vaccine recombinant César Merrill MD Work Phone: [facility] 02-25-2019 influenza, high dose seasonal, preservative-free César Merrill MD Work Phone: [facility] 02-22-2018 influenza, high dose seasonal, preservative-free César Merrill MD Work Phone: [facility] 04-12-2017 influenza, injectabl e, quadrivalent, contains preservative César Merrill MD Work Phone: [facility] 12-06-2015 pneumococcal polysaccharide vaccine, 23 valent César Merrill MD Work Phone: [facility] 11-24-2014 pneumococcal conjuga te vaccine, 13 valent César Merrill MD Work Phone: [facility] 10-22-2013 measles, mumps and rubella virus vaccine César Merrill MD Work Phone: [facility] Work Phone: 09-03-2013 measles, mumps and rubella virus vaccine César Merrill MD Work Phone: [facility] Work Phone: 01-24-2010 influenza virus vacc ine, unspecified formulation César Merrill MD Work Phone: [facility] 05-22-2008 tetanus toxoid, redu silva diphtheria toxoid, and acellular pertussis vaccine, adsorbed César Merrill MD Work Phone: [facility] Work Phone: 02-28-1998 pneumococcal polysaccharide vaccine, 23 valjing Merrill MD Work Phone: [facility] Payers Date Payer Category Payer Unknown [id number] 2024 Unknown [id number] 2024 Self-pay [id number] Unknown [id number] [id number] [id number] Unknown [id number] Unknown [id number] [id number] [id number] Unknown [id number] [id number] [id number] Unknown [id number] [id number] [id number] Unknown [id number] [id number] Unknown [id number] [id number] Social History Date Type Detail Facility Start: 03-07-2021 End: 03-16-2023 Tobacco smoking status MAIS Ex-smoker [facility] Start: 1963 End: 07-29-1997 History of tobacco use Current smoker [facility] Start: 05-12-2021 End: 08-22-2024 Alcohol intake Current non-drinker of alcohol (finding) [facility] Start: 1945 Sex Assigned At Not on file [facility] Start: 07-14-2021 End: 03-16-2023 Tobacco smoking status [facility] Unknown if ever smoked [facility] Start: 1945 Sex Assigned At Male [facility] Start: 01-12-2021 End: 11-15-2021 Exposure to SARS-CoV-2 (event) Not sure [facility] Work Phone: Start: 1963 End: 07-29-1997 History of tobacco use Cigarette Smoker [facility] Work Phone: Start: 03-07-2021 End: 02-14-2024 Tobacco use and exposure Former smokeless tobacco user [facility] Work Phone: Start: 05-31-2022 End: 02-05-2023 History of Social function [facility] Work Phone: Start: 05-31-2022 End: 02-05-2023 Tobacco use panel [facility] Work Phone: Adult Depression Screening Assessment 0 [facility] Work Phone: Medical Equipment Procedure Code Equipment Code Equipment Original Text Equipment Identifier Dates [id number] FDA Start: 04-12-2023 SCREW FDA Start: 04-12-2023 [...] Start: 04-12-2023 Collagen haemost atic agent, non-antimicrobial ()[id number] FDA Start: 04-12-2023 Collagen haemost atic agent, non-antimicrobial ()[id number] FDA Start: 04-12-2023 Plant polysaccha ride haemostatic agent, bioabsorbable ()[id number] FDA Start: 04-12-2023 PUTTY,BONE DBM 5 CC TIJERINA FDA Start: 04-12-2023 AMNA FDA Start: 04-12-2023 AMNA FDA Start: 04-12-2023 SCREW FDA Start: 04-12-2023 SCREW FDA Start: 04-12-2023 SCREW FDA Start: 04-12-2023 SCREW FDA Start: 04-12-2023 [id number] FDA Start: 04-12-2023 SCREW FDA Start: 04-12-2023 [...] FDA Start: 04-12-2023 SCREW FDA Start: 04-12-2023 [id number] FDA Start: 04-12-2023 SCREW FDA Start: 04-12-2023 [...] Facility 04-14-2023 Functional status Patient Activity Chair [facility] Work Phone: 04-14-2023 Functional status With Assist of 1 [facility] Work Phone: 11-24-2014 Are you deaf, or do you have serious difficulty hearing Yes 11/24/2014 8:22 AM Bryn Oneil LPN Yes [facility] 11-24-2014 Are you blind, or do you have serious difficulty seeing, even when wearing glasses No 11/24/2014 8:22 AM Bryn Oneil LPN No [facility] 11-24-2014 Do you have serious difficulty walking or climbing stairs No 11/24/2014 8:22 AM Bryn Oneil LPN No [facility] 11-24-2014 Do you have difficul ty dressing or bathing No 11/24/2014 8:22 AM Bryn Oneil LPN No [facility] 11-24-2014 Because of a physica l, mental, or emotional condition, do you have difficulty doing errands alone such as visiting a physician's office or shopping No 11/24/2014 8:22 AM Bryn Oneil LPN No [facility] Mental Status Date Assessment Result Facility 04-14-2023 Cognitive function Voice/Name [facility] Work Phone: 11-24-2014 Because of a physica l, mental, or emotional condition, do you have serious difficulty concentrating, remembering, or making decisions No 11/24/2014 8:22 AM Bryn Oneil LPN No [facility] Clinical Notes 07-29-1997 to 10-17-2024 Diamond Cain MA - 10/17/2024 1:51 PM EDTTelephone Encounter - Tamera Yeung - 10/14/2024 2:21 PM EDTTelephone Encounter - Tamera Yeung - 10/14/2024 2:21 PM EDT Note Date & Type Note Facility 10-17-2024 Note HNO ID: [id number] Author: DIAMOND CAIN MA Service: ? Author Type: [employer] Type: Progress Notes Filed: 10/17/2024 13:51 Note Text: Scan on 10/03/2024 8:33 AM by ProviderTori PA-C: Chemistry Scan on 10/05/2024 6:29 AM by Tori Meredith PA-C: CT Scan Diamond Cain MA [facility] 10-17-2024 History of Presen t illness Narrative Scan on 10/03/2024 8:33 AM by ProviderTori PA-C: Chemistry Scan on 10/05/2024 6:29 AM by ProviderTori PA-C: CT Scan Diamond Cain MA documented in this encounter [facility] 10-14-2024 Telephone encounter Note Patient son calling back for message. The message was read and patient son will call the heart group for the heart medication [facility] 10-14-2024 Miscellaneous Notes Patient son calling back [...] you. Zita Patel. documented in this encounter [facility] 10-14-2024 Telephone encounter Note Patient has refills on Losartan and gets his atenolol through [facility]. Diamond Cain MA Left message for patient's EC . Diamond Cain MA' [facility] 10-14-2024 Telephone encounter Note Prescription Refill Information [...] Cain MA October 14, 2024 11:10 AM [facility] 10-14-2024 Miscellaneous Notes Prescription Refill Information The [...] you. Zita Patel. documented in this encounter [facility] 10-14-2024 Telephone encounter Note Patient has been [...] 01/27/2025 Please advise. Thank you. Zita Patel. [facility] 10-14-2024 Telephone encounter Note Patient has been [...] 01/27/2025 Please advise. Thank you. Zita Patel. [facility] 10-05-2024 Radiology Diagnostic study note [facility] Imaging Services [address] [address] CTA Abd w/Runoff W/WO Contrast MR#: [id number] Acct: [id number] Name: KATHARINE CANO Rep #: [id number] : 1945 M [id number] From: Salazar Goldberg MD PCP: Dr. César Merrill MD Status: REG CLI Study:CTA Abd w/Runoff W/WO Contrast Date of Exam: 10/03/24 Exam# [id number] Ordering Dr: Kyrie Rush ison PA PROCEDURE: [...] Contrast IMPRESSION: Atherosclerosis. Multifocal stenosis. Reading Location: [place] [address] CC: STEPHEN Toth; Dr. César Merrill MD ~ [employer]: Signed [facility] 09-10-2024 Telephone encounter Note The following [...] once daily. Authorizing Provider: CÉSAR MERRILL MD [facility] 09-10-2024 Miscellaneous Notes The following approved medication [...] 2024 11:56 AM documented in this encounter [facility] 09-10-2024 Telephone encounter Note Prescription Refill Information [...] Higginbotham LPN September 10, 2024 2:52 PM [facility] 09-10-2024 Telephone encounter Note Prescription Refill Information [...] Sissy Figueroa September 10, 2024 11:56 AM [facility] 09-02-2024 Note HNO ID: [id number] Author: DEMARCUS HIGGINBOTHAM LPN Service: ? Author Type: LICENSED NURSE Type: Progress Notes Filed: 09/02/2024 14:59 Note Text: Scan on 09/02/2024 9:55 AM by ProviderTori PA-C: Consultation - Vascular Medicine/Vascular Surgery [facility] 09-02-2024 History of Presen t illness Narrative Scan on 09/02/2024 9:55 AM by Provider, YURIDIA Valle: Consultation - Vascular Medicine/Vascular Surgery documented in this encounter [facility] 07-31-2024 Telephone encounter Note Reviewed message with Adelaida and he voiced understanding. Valerie Johnson LPN [facility] 07-31-2024 Miscellaneous Notes Reviewed message with Adelaida [...] 80mg daily that was originally prescribed through [facility]. Last visit with them on [...] Jeannette Oliveira RN documented in this encounter [facility] 07-31-2024 Telephone encounter Note With LDL above 70 I would recommend he switch to the Atorvastatin 40 mg daily. [facility] 07-31-2024 Telephone encounter Note Spoke with son, [...] Please review and advise. Norma Anderson LPN [facility] 07-31-2024 Telephone encounter Note Patient is already on Actos and Glimepiride. Cannot tolerate metformin due to diarrhea. Can we initiate PA for this medication? If not, would have patient check with insurance to see if they have list of covered alternatives. [facility] 07-31-2024 Telephone encounter Note Patient's son Adelaida calls and states that Farxiga is too expensive for patient. Atlee asking for different medication to be called into pharmacy. Please review and advise, Jeannette Oliveira RN [facility] 07-30-2024 Telephone encounter Note Patient's son aware. Valerie Johnson LPN [facility] 07-30-2024 Miscellaneous Notes Patient's son aware. Valerie [...] is no longer on the simvastatin per [facility]. If so I would suggest we put him on atorvastatin 40 mg a day. His B12 was on the low end of normal so I would advise getting back on Vit B12 1000 mcg but just one a day. All other labs and urine testing were ok. documented in this encounter [facility] 07-30-2024 Telephone encounter Note Rx sent as requested. Call if unable to afford farxiga. [facility] 07-30-2024 Telephone encounter Note Patient's son, Adelaida, [...] Vit B12 as advised. Mee Shi RN [facility] 07-26-2024 Telephone encounter Note Left message for pt to contact office. Demarcus Higginbotham LPN [facility] 07-25-2024 Telephone encounter Note Let patient know [...] labs and urine testing were ok. T [facility] 07-24-2024 History of Presen t illness Narrative [...] - LIPID PANEL, NONFASTING 6. Atherosclerosis of [place] coronary artery of [place] heart without angina pectoris - ICD9: 414.01, [...] which included preparing to see the patient, rcno-[id number] patient care, completing clinical documentation, performing a medically appropriate examination, counseling and educating the patient/family/caregiver and ordering medications, tests, or procedures. César Merrill MD SENSITIVE EXAMINATION CONSENT: The sensitive examination was discussed with the Patient or Patient's Authorized Business Analytics Analyst. As applicable, any other physician, advance practice provider, medical student, or other health professional student that will be observing or involved in the sensitive examination for educational or training purposes was discussed with the Patient or Authorized Business Analytics Analyst. The Patient or Authorized Business Analytics Analyst has agreed to proceed with the sensitive examination. documented in this encounter [facility] 07-24-2024 Note HNO ID: [id number] Author: CÉSAR MERRILL MD Service: ? Author [...] complication, without long-term current use of insulin ([facility]) 08/14/2017 Previous Surgical History PAST SURGICAL HISTORY [...] History Tobacco Use (more content not included)... [facility] 07-24-2024 Instructions César Merrill MD - 07/24/2024 8:38 AM EDT Please bring in copies of your power of assistant district attorney for health care and living will. Please get back on the B12 1000 mcg 1.5 tabs a day. documented in this encounter [facility] 07-18-2024 Telephone encounter Note Noted. [facility] 07-18-2024 Miscellaneous Notes Noted. Love from [facility] pharmacy in [place] calling in for refills for pt. She [...] on 08/12 with Katarzyna Munson. Pt is Gnosticist and needs financially cleared for appt. Attempted to call pt and son Adelaida answered the phone and said pt is unavailable. Discussed with son about how pt is taking his medications and that perhaps we need to bring him in sooner for an appt to discuss med compliance. Son agreeable to this. documented in this encounter [facility] 07-18-2024 Telephone encounter Note Love from [facility] in [place] calling in for refills for pt. She [...] Simvastatin correctly. Atenolol and Simvastatin prescribed by [facility]. Pt is set up for a physical on 08/12 with Katarzyna Munson. Pt is Gnosticist and needs financially cleared for appt. Attempted to call pt and son Adelaida answered the phone and said pt is unavailable. Discussed with son about how pt is taking his medications and that perhaps we need to bring him in sooner for an appt to discuss med compliance. Son agreeable to this. [facility] 07-10-2024 Evaluation note Diagnosis Onset Date Resolution Essential hypertension acute [facility] 2024 9:26am Atherosclerotic heart disease of [place] coronary artery without angina pectoris chronic July 10, 2024 9:26am Hyperlipidemia chronic June 9:26am PAOD (peripheral arterial occlusive disease) acute August 29, 2024 10:57am [facility] Work Phone: 1(909) 534-670203-13-2025 Evaluation note* Diagnosis Onset Date Resolution Status Admit Date Essential hypertension acute [facility] 2024 9:26am Atherosclerotic heart diseas e of [place] coronary artery without angina pectoris chronic July 10, 2024 9:26am Hyperlipidemia chronic June 9:26am PAOD (peripheral arterial occlusive disease) acute August 29, 2024 10:57am Atherosclerosis of [place] arteries of extremities with rest pain, bilateral chronic October 09, 2024 2:55pm [facility] Work Phone: 1(915) 352-869703-13-2025 Evaluation note* Diagnosis Onset Date Resolution Status Admit Date Essential hypertension acute [facility] 2024 9:26am Atherosclerotic heart diseas e of [place] coronary artery without angina pectoris chronic July 10, 2024 9:26am Hyperlipidemia chronic June 9:26am PAOD (peripheral arterial occlusive disease) acute August 29, 2024 10:57am Atherosclerosis of [place] arteries of extremities with rest pain, bilateral chronic October 09, 2024 2:55pm Essential hypertension acute 2024 10:17am Preop cardiovascular exam acute October 29, 2024 10:17am Atherosclerotic heart diseas e of [place] coronary artery without angina pectoris chronic October 29, 2024 1 0:17am Hyperlipidemia chronic October 29, 2024 10:17am [facility] Work Phone: 1(354) 497-115003-07-2025 NoteHNO ID: [id number] Author: DEMARCUS HIGGINBOTHAM LPN Service: ? Author Type: LICENSED NURSE Type: Progress Notes Filed: 07/04/2024 08:36 Note Text: Scan on 07/04/2024 7:19 AM by ProviderTori PA-C: [facility] History of Present illness Narrative* Demarcus Higginbotham LPN - 07/04/2024 8:24 AM EST Scan on 07/04/2024 7:19 AM by Provider, YURIDIA Valle: Consultation - Ophthalmology documented in this encounterUniversity Hospitals [facility] Center02-11-2025 NoteHNO ID: [id number] Author: DEYSI CAIN APRN.BIOLOGY INTERN Service: ? Author Type: Nurse Practitioner Type: [...] 07/29/1997 Years since quitting: (more content not included)...[facility] 06-10-2024 History of Present illness Narrative* Deysi Cain APRN.BIOLOGY INTERN - 06/10/2024 1:43 PM EST CC: Patient presents with: Chest Congestion: cough x 3 days HPI: Katharien Cano is a 79 year old male [...] 12/11/[address] 11/15/2021 DPA: Wilfrdeo (son) Mixed hyperlipidemia 11/07/2005 Nocturnal leg cramps [...] Patient agreeable to treatment plan. Deysi Cain APRN.BIOLOGY INTERN documented in this encounterUniversity Hospitals Tri[facility] Center10-18-2024 Telephone encounter Note * Telephone Encounter - Demarcus Higginbotham LPN - 02/15/2024 11:46 AM EDT Left message of pt and pt's results on pt's vm. Demarcus Higginbotham LPN [facility]10-18-2024 Miscellaneous Notes* Telephone Encounter - Demarcus Higginbotham LPN - 02/15/2024 11:46 AM EDT Left message of pt and pt's results on pt's vm. Demarcus Higginbotham LPN * Telephone Encounter - César Merrill MD - 02/15/2024 10:03 AM EDT Let Katharine know that his recent labs along with his 's recent labs were ok. documented in this encounterUniversity Hospitals [facility] Center10-18-2024 Telephone encounter Note * Telephone Encounter - César Merrill MD - 02/15/2024 10:03 AM EDT Let Katharine know that his recent labs along with his 's recent labs were ok. [facility]10-17-[facility]24 History of Present illness Narrative* César Merrill [...] diet and regular exercise 5. Atherosclerosis of [place] coronary artery of [place] heart without angina pectoris - ICD9: 414.01, [...] extensive. César Merrill MD documented in this encounterUniversity Hospitals Tripoint Medical Center10-17-2024 NoteHNO ID: [id number] Author: CÉSAR MERRILL MD Service: ? Author [...] diarrhea and N (more content not included)... [facility]05-17-2024 Telephone encounter Note* Telephone Encounter - Zohreh Hughes RN - 09/14/2023 2:48 PM EDT Teto Son returns the call and is notified of Dr. Merrill's instructions. He verbalizes understanding. [facility]05-17-2024 Miscellaneous Notes* Telephone Encounter - Zohreh Hughes [...] mcg once a day. documented in this encounterUniversity Hospitals [facility]point [facility] Center05-17-2024 Telephone encounter Note * Telephone Encounter - Natalie Hebert LPN - 09/14/2023 1:16 PM EDT Left message to contact office for results. [facility]05-17-2024 Telephone encounter Note* Telephone Encounter - César Merrill MD - 09/14/2023 12:51 PM EDT Let patient (or since he has dementia) know his hemoglobin was back into a normal range. His B12 is improved but not wear it needs to be. He needs to increase his Vit B12 to 1500 mcg once a day. [facility]04-18-2024 Miscellaneous Notes* Telephone Encounter - Jeannette Oliveira [...] repeated in a month. documented in this encounterUniversity Hospitals Tripoint Medical Center04-15-2024 Miscellaneous Notes* Telephone Encounter - Jeannette Oliveira RN - 08/13/2023 11:59 AM EDT Patient's son call back and notified of results and provider instructions. Son Voices understanding. Jeannette Oliveira RN * Telephone Encounter - Diamnod Cain MA - 08/13/2023 9:24 AM EDT [...] labs to further evaluate. documented in this encounterUniversity Hospitals Tripoint Medical Center04-10-2024 Instructions* Patient Instructions* César Merrill MD - 08/08/2023 9:43 AM EDT Consider getting the shingrix vaccine for prevention of shingles, and RSV vaccine from a local pharmacy or the health dept Please bring in copies of your power of assistant district attorney for health care and living will. documented in this encounterUniversity Hospitals Tripoint Medical Center04-10-2024 History of Present illness Narrative* César Merrill [...] for pulmonary last visit 03/2023 Patient sees [facility] 03/2023 Patient sees Ophthalmology last [...] loss. BMI 37.69 kg/(m^2) 6. Atherosclerosis of [place] coronary artery of [place] heart without angina pectoris - ICD9: 414.01, [...] which included preparing to see the patient, qxys-fq-[id number] patient care, completing clinical documentation, performing a medically appropriate examination, counseling and educating the patient/family/caregiver and ordering medications, tests, or procedures. César Merrill MD documented in this [facility]12-21-2023 Instructions* Patient Instructions* May Ragland MD - 04/19/2023 10:20 AM EST Use inhaler for SOB Oxygen reassessment documented in this encounterCleveland [id number] History of Present illness Narrative* May Ragland MD - 04/19/2023 10:00 AM EST Images from the original note were not included. . [facility] [place] Note Patient name: Katharine Cano PCP: César [...] had at L3-5 laminectomy with spinal fusion [facility] 04/22/23 with postoperative note of hypoxemia [...] 89%. DME: [employer] DATA: Reviewed EMR from [facility] Imaging / Diagnostic Studies: 03/20/23 STUDY: [...] acute cardiopulmonary disease. Reviewed portable CXR from [facility] which shows poor lung volumes but [...] of mild fibrosis May Ragland MD [facility] [place] documented in this encounterUniversity Hospitals Tripoint Medical Center12-16-2023 Progress note Author Lenore Robledo [facility] April 14, 2023 11:28am Note Date/Time April 14, 2023 11:28am [facility] Medical Records Department [address] [place] [address] Progress Note - Hospitalist 04/14/23 1124 MR#: [id number] Acct: [id number] Name: JEROMEKATHARINE Rep #:[id number] : 1945 78 From: Lenore Robledo DO PCP: Dr. César Merrill MD Status:ADM REESE Location: [address] Reason for Visit Reason for Visit: Chronic back pain Subjective Subjective No issues overnight. Patient remains on 2 L nasal cannula and with ambulation did well with 2 L however at rest with no oxygen his oxygen saturation was 87%. He indicates he is followed with Dr. May Ragland over at [facility] previously and will do so after discharge. He is anxious to go home and would be willing to doso on oxygen if needed. I think with his oxygen stabilizing we can get him hometoday with supplemental oxygen [id number] and he can follow-up as an outpatient [...] distress and well nourished Constitutional Narrative: Older, Gnosticist, white male, sitting up in a chair [...] was referred to revisit with his home brusher warp after discharge CAD/HTN/HPL -Most recent stent was [...] with spacer. Charges/Coding Visit Charges Inpatient E&M: 26920 Subs Hosp L2 04/14/23 1128 <Electronically signed by Lenore Robledo DO> Cosigner Signature (if applicable): CC: ~ Signed [facility] Work Phone: 1(770) 599-445012-15-2023 Progress note Author Lenore Robledo [facility] April 13, 2023 10:53am Note Date/Time April 13, 2023 7:24am [facility] Medical Records Department [address] [place] [address] Progress Note - Hospitalist 04/13/23717 MR#: [id number] Acct: [id number] Name: KATHARINE CANO Rep #:[id number] : 1945 78 From: Lenore Robledo DO PCP: Dr. César Merrill MD Status:ADM REESE Location: [facility] [id number] Reason for Visit Reason for Visit: Lumbar [...] distress and well nourished Constitutional Narrative: Older, Gnosticist, white male, sitting up in bed, family [...] 24 hours Charges/Coding Visit Charges Inpatient E&M: 51966 Subs Hosp L2 04/13/23 1056 <Electronically signed by Lenore Robledo DO> Cosigner Signature (if applicable): CC: ~ Signed [facility] Work Phone: 1(267) 202-513912-15-2023 Progress note Author [facility] April 13, 2023 6:45am Note Date/Time April 13, 2023 6:45am [facility] Medical Records Department [address] [place] [address] Progress Note - Orthopedic 04/13/2343 MR#: [id number] Acct: [id number] Name: KATHRAINE CANO Rep #:[id number] : 1945 78 From: César Martin PCP: Dr. César Merrill MD Status:ADM REESE Location: MS3 [id number] Subjective Subjective Seen and examined postop day [...] Cosigner Signature (if applicable): CC: ~ Signed [facility] Work Phone: 1(573) 603-630412-15-2023 Progress note Author César Tijerina [facility] April 13, 2023 6:43am Note Date/Time April 12, 2023 8:06am [facility] Medical Records Department [address] [place] [address] Progress Note - Orthopedic 04/12/23805 MR#: [id number] Acct: [id number] Name: KATHARINE CANO Kamar Rep #:[id number] : 1945 78 From: César Martin PCP: Dr. César Merrill MD Status:ADM REESE Location: [place] [address] Subjective Subjective Seen and examined postop. Resting [...] Cosigner Signature (if applicable): CC: ~ Signed [facility] Work Phone: 1(792) 967-195712-14-2023 Progress note Author Gogo Santizo [facility] April 12, 2023 6:13pm Note Date/Time April 12, 2023 6:13pm [facility] Medical Records Department [facility] [address] [place] [address] Progress Note - Hospitalist 04/12/23 1806 MR#: [id number] Acct: [id number] Name: KATHARINE CANO Rep #:[id number] : 1945 78 From: Gogo Santizo MD PCP: Dr. César Merrill MD Status:ADM REESE [id number] Reason for Visit Reason for Visit: Diagnoses Spinal stenosis, lumbar region without neurogenic claudication (04/12/23) Encounter for other preprocedural examination (04/12/23) Subjective Subjective 78-year-old male history of coronary artery disease status post stenting, lumbarstenosis, type 2 diabetes, hypertension presented to [facility] 04/12/2023 for lumbar stenosis requiring L3-5 [...] documentation, 35minutes Charges/Coding Visit Charges Inpatient E&M: 39551 Subs Hosp L2 04/12/231812 <Electronically signed by Gogo Santizo MD> Cosigner Signature (if applicable): CC: ~ Signed [facility] Work Phone: 1(364) 659-283212-14-2023 Procedure [facility] 04-10-2023 History of Present illness Narrative* Demarcus Higginbotham LPN - 04/10/2023 2:26 PM EST Scan on 04/10/2023 10:15 AM by Provider, YURIDIA Valle: Consultation - Ophthalmology documented in this encounterUniversity Hospitals Tripoint Medical Center11-27-2023 History of Present illness Narrative* JeromeMelody APRN.BIOLOGY INTERN - 03/26/2023 12:09 PM EST Chief Complaint Patient presents with: Pre-Op Exam: Surgery clearance for 04/12/23 by for back surgery HPI Ktaharine Cano is a 78 year old male [...] for surgery from my standpoint. Melody Cano APRN.BIOLOGY INTERN documented in this encounterUniversity Hospitals Tripoint Medical Center11-22-2023 Miscellaneous Notes* Telephone Encounter - Mary Worthington - 03/21/2023 2:45 PM EST Pre-op form received. Mary Worthington * Telephone Encounter - Demarcus Higginbotham LPN - 03/15/2023 3:26 PM EST Received pre -op forms form Mahin Lara. Pt has appointment with Melody Cano 03/26. Forms placed in her mailbox. Demarcus Higginbotham LPN documented in this encounterUniversity Hospitals Tripoint Medical Center07-15-2023 Miscellaneous Notes* Telephone Encounter - César Merrill [...] notify patient. Elvia Condon documented in this encounterUniversity Hospitals Tripoint Medical Center04-11-2023 Miscellaneous Notes* Telephone Encounter - César Merrill [...] notify patient. Shima Ramon documented in this encounterUniversity Hospitals Tripoint Medical Center03-09-2023 History of Present illness Narrative* Diamond Cain MA - 07/06/2022 2:55 PM EST Scan on 07/04/2022 11:06 AM by External Provider: Consultation - Cardiology Scan on 07/04/2022 11:54 AM by External Provider: Chemistry Diamond Cain MA documented in this encounterUniversity Hospitals Tripoint Medical Center02-01-2023 Instructions* Patient Instructions* César Merrill MD - 05/31/2022 8:12 AM EST Please bring in copies of your living ramos and durable power of assistant district attorney for health care. documented in this encounterUniversity Hospitals Tripoint Medical Center02-01-2023 History of Present illness Narrative* César Merrill [...] BMI 36.94 kg/(m^2) - Patient was counseled [id number] by myself (the billing provider) for the [...] - LIPID PANEL, NONFASTING 6. Atherosclerosis of [place] coronary artery of [place] heart without angina pectoris - ICD9: 414.01, [...] routine César Merrill MD documented in this encounterUniversity Hospitals Tripoint Medical Center01-09-2023 Miscellaneous Notes* Telephone Encounter - Diamond Cain [...] notify patient. 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 Karina Mcdonough LPN documented in this encounterUniversity Hospitals Tripoint Medical Center10-14-2022 Miscellaneous Notes* Telephone Encounter - Diamond Cain [...] 07/2021 * Telephone Encounter - Jada Newton [facility] - 02/10/2022 9:38 AM [...] advise. Jada Newton Pss documented in this encounterUniversity Hospitals Tripoint Medical Center07-21-2022 Miscellaneous Notes* Telephone Encounter - May Doe [...] him with her dementia) documented in this encounterUniversity Hospitals Tripoint Medical Center07-19-2022 History of Present illness Narrative* César Merrill [...] D2 ORAL) Take 2,000 Units by mouth. Coaknjssjew-Ejtqeivrf-Ybs C-Mn (GLUCOSAMINE CHONDROITIN MAXSTR) 500-400 mg cap Take 1 capsule by mouth twice daily. simvastatin (ZOCOR) 80 mg tablet Take 1 tablet by mouth daily at bedtime. Per Dr. Barba Cinnamon Bark (CINNAMON) 500 mg cap Take 500 mg by mouth. Kaqiowfoxbhqg-Gbksyfma-Iyxner (CENTRUM SILVER) Tab Take 1 tablet by [...] Abs Lymph 1.00 - 4.00 k/uL 1.68 [place]% % 11.5 Abs [place] <0.87 k/uL 0.62 Eosin% % 3.9 Abs [...] - Continue current therapy. 5. Atherosclerosis of [place] coronary artery of [place] heart without angina pectoris - ICD9: 414.01, [...] PE César Merrill MD documented in this encounterUniversity Hospitals Tripoint Medical Center05-31-2022 Miscellaneous Notes* Telephone Encounter - Demarcus Higginbotham LPN - 09/27/2021 8:46 AM EDT Pt's son advised of results. Demarcus Higginbotham LPN * Telephone Encounter - Katarzyna Munson PA-C - 09/27/2021 7:30 AM EDT Repeat calcium level is normal. Katarzyna Munson PA-C documented in this encounterUniversity Hospitals Tripoint Medical Center05-27-2022 Instructions* Patient Instructions* Katarzyna Munson PA-C - 09/23/2021 11:21 AM EDT Repeat calcium labs today. Follow up as scheduled in October. Return sooner as needed. documented in this encounterUniversity Hospitals Tripoint Medical Center05-27-2022 History of Present illness Narrative* Katarzyna Munson [...] D2 ORAL) Take 2,000 Units by mouth. Gqkrbbuiseh-Oievpazji-Jha C-Mn (GLUCOSAMINE CHONDROITIN MAXSTR) 500-400 mg cap Take 1 capsule by mouth twice daily. simvastatin (ZOCOR) 80 mg tablet Take 1 tablet by mouth daily at bedtime. Per Dr. Barba Cinnamon Bark (CINNAMON) 500 mg cap Take 500 mg by mouth. Echsaakwcsoxh-Wvbltblm-Mrhght (CENTRUM SILVER) Tab Take 1 tablet by [...] Abs Lymph 1.00 - 4.00 k/uL 2.18 [place]% % 10.7 Abs [place] <0.87 k/uL 0.80 Eosin% % 1.2 Abs [...] prior. Katarzyna Munson PA-C documented in this encounterUniversity Hospitals Tripoint Medical Center05-24-2022 Miscellaneous Notes* Telephone Encounter - Zahra Currie [...] keep his appointment tomorrow. documented in this encounterUniversity Hospitals Tripoint Medical Center05-23-2022 History of Present illness Narrative* César Ghotra [...] D2 ORAL) Take 2,000 Units by mouth. Noofoqdcjut-Dfryqfjhf-Ohz C-Mn (GLUCOSAMINE CHONDROITIN MAXSTR) 500-400 mg cap Take 1 capsule by mouth twice daily. simvastatin (ZOCOR) 80 mg tablet Take 1 tablet by mouth daily at bedtime. Per Dr. Barba Cinnamon Bark (CINNAMON) 500 mg cap Take 500 mg by mouth. Wgtsfjgmsowep-Xmxagklr-Omqmpb (CENTRUM SILVER) Tab Take 1 tablet by [...] ofcare. César Ghotra APRN.[employer] documented in this encounterUniversity Hospitals Tripoint Medical Center04-12-2022 Miscellaneous Notes* Telephone Encounter - César Merrill [...] notify patient. Elvia Condon documented in this encounterUniversity Hospitals Tripoint Medical Center03-24-2022 History of Present illness Narrative* Demarcus Higginbotham LPN - 07/21/2021 9:35 AM EDT Scan on 07/21/2021 9:08 AM by External Provider: Chemistry documented in this [facility]02-28-2022 Miscellaneous Notes* Telephone Encounter - Catarina [...] patient. Catarina Calvert Pss documented in this [facility]10-15-2021 History of Present illness Narrative* Christine [...] 11, 2021 2:06 PM documented in this encounterUniversity Hospitals Tripoint Medical Center04-01-1998 Evaluation note* Diagnosis Onset Date Resolution Status Essential hypertension acute Atherosclerotic heart diseas e of [place] coronary artery without angina pectoris chronic Hyperlipidemia chronic Stented coronary artery July, [facility] Work Phone: 1(117) 607-909804-01-1998 Evaluation note* Diagnosis Onset Date Resolution Status [place] (dyspnea on exertion) [place] Essential hypertension acute Hyperlipidemia chronic Nonrheumatic mitral (valve) prolapse chronic Stented coronary artery July, [facility] Work Phone: 1(787) 988-781804-01-1998 Evaluation note* Diagnosis Onset Date Resolution Status Essential hypertension acute Hyperlipidemia chronic Nonrheumatic mitral (valve) prolapse chronic Stented coronary artery July, [facility] Bradycardia acute First degree heart block acu te Hypoxia acute Lumbar stenosis acute Diabetes mellitus type II, controlled chronic Stented coronary artery July, [facility] Work Phone: Evaluation note* Diagnosis Abdominal pain, generalized- Primary documented in this encounter [facility] CenterEvalunemours foundation note* Diagnosis Generalized abdominal pain- Primary Abdominal pain, generalized Hypercalcemia documented in this encounter [facility] note* Diagnosis Type 2 diabetes mellitus without complication, without long-term current use of insulin (HCC)- Primary Diabetic eye exam (HCC) Type II or unspecified type diabetes mellitus without mention of complication, not stated as uncontrolled Hypertension, essential Unspecified essential hypertension Mixed hyperlipidemia Atherosclerosis of [place] coronary artery of [place] heart without angina pectoris KARLA (obstructive sleep apnea) Obstructive sleep apnea (adult) (pediatric) Nocturnal leg cramps Sleep related leg cramps Benign prostatic hyperplasia with urinary frequency Living will in place Advance directive discussed with patient Other specified counseling [facility] Diagnosis Onset Date Resolution Status SEYMOUR (dyspnea on exertion) [place] Essential hypertension acute Atherosclerotic heart diseas e of [place] coronary artery without angina pectoris chronic Hyperlipidemia chronic Nonrheumatic mitral (valve) prolapse chronic Stented coronary artery July, [facility] Work Phone: Evaluation note* Diagnosis Pneumonia due to COVID-19 virus- [facility] Diagnosis Nocturnal leg cramps Sleep related leg cramps Benign prostatic hyperplasia with urinary frequency [facility]* Diagnosis Well adult exam- Primary Routine general medical examination at a health care facility Type 2 diabetes mellitus without complication, without long-term current use of insulin (HCC) Diabetic eye exam (HCC) Type II or unspecified type diabetes mellitus without mention of complication, not stated as uncontrolled Hypertension, essential Unspecified essential hypertension Mixed hyperlipidemia Atherosclerosis of [place] coronary artery of [place] heart without angina pectoris KARLA (obstructive sleep [...] disorder of prostate [facility] Diagnosis Nocturnal leg cramps Sleep related leg cramps Benign prostatic hyperplasia with urinary frequency [facility] Diagnosis Preop examination- Primary Preoperative examination, unspecified [facility]* Diagnosis Diabetic eye exam (HCC) Type II or unspecified type diabetes mellitus without mention of complication, not stated as uncontrolled [facility] Diagnosis Hypoxemia- Primary History of COVID-19 [facility]* Diagnosis Well adult exam- Primary Routine general medical examination at a health care facility Type 2 diabetes mellitus without complication, without long-term current use of insulin (HCC) Diabetic eye exam (HCC) Type II or unspecified type diabetes mellitus without mention of complication, not stated as uncontrolled Hypertension, essential Unspecified essential hypertension Mixed hyperlipidemia Atherosclerosis of [place] coronary artery of [place] heart without angina pectoris KARLA (obstructive sleep apnea) Obstructive sleep apnea (adult) (pediatric) Benign prostatic hyperplasia with urinary frequency Advance directive discussed with patient Other specified counseling Screening for colon cancer Special screening for malignant neoplasms, colon Prostate disorder Unspecified disorder of prostate Nocturnal leg cramps Sleep related leg cramps [facility]* Diagnosis Anemia, unspecified type- Primary [facility] Diagnosis Vitamin B12 deficiency- Primary Other B-complex deficiencies documented in this encounter [facility]* Diagnosis Pneumonia due to COVID-19 virus documented [facility] this [facility]* Diagnosis Type 2 diabetes mellitus without complication, without long-term current use of insulin (HCC)- Primary Diabetic eye exam (HCC) Type II or unspecified type diabetes mellitus without mention of complication, not stated as uncontrolled Hypertension, essential Unspecified essential hypertension Mixed hyperlipidemia Atherosclerosis of [place] coronary artery of [place] heart without angina pectoris KARLA (obstructive sleep apnea) Obstructive sleep apnea (adult) (pediatric) Vitamin B12 deficiency Other B-complex deficiencies Need for vaccination Need for prophylactic vaccination and inoculation against unspecified single disease Encounter for immunization Need for other specified prophylactic vaccination against single bacterial disease documented [facility] this [facility]* Diagnosis URI, acute- Primary Acute upper respiratory infections of unspecified site documented in this encounter [facility]* Diagnosis Well adult exam- Primary Routine general medical examination at a health care facility Type 2 diabetes mellitus without complication, without long-term current use of insulin (HCC) Diabetic eye exam (HCC) Type II or unspecified type diabetes mellitus without mention of complication, not stated as uncontrolled Hypertension, essential Unspecified essential hypertension Mixed hyperlipidemia Atherosclerosis of [place] coronary artery of [place] heart without angina pectoris KARLA (obstructive sleep [...] and behavioral disorders documented in this encounter [facility] for referral (narrative)* Outpatient Procedure (Routine) - Pending Review Specialty Diagnoses / Procedures Referred By Sincere vivas Referred To [facility] Diagnoses Hypoxemia Procedures OXIMETRY WITH AMBULATION NONINVASIVE EAR/PULSE OXIMETRY May Alford MD [address] [place] [address] [facility] [place] [address] [place] [address] Referral ID Status Reason Start Date Expiration Date Visits Requested Visits Authorized [id number] Pending Review Auto-Generat ed Referral 3 05/18/2024 1 1 [facility] for referral (narrative)No reason for referral information availableWilliston [facility] Services Work Phone: Chief Complaint and Reason for Visit Chief Complaint 1 y fu INT LABS Reason for Visit Essential hypertensi on Atherosclerotic heart disease of [place] coronary artery without angina pectoris Hyperlipidemia Stented coronary artery Chief Complaint 6 M FU DYSPNEA Reason for Visit SEYMOUR (dyspnea on exer tion) Essential hypertension Atherosclerotic heart disease of [place] coronary artery without angina pectoris Hyperlipidemia Nonrheumatic [...] 2024 9:26am Atherosclerotic heart diseas e of [place] coronary artery without angina pectoris July 10, 2024 9:26am Hyperlipidemia July 10, 2024 9:2 6am PAOD (peripheral arterial occlusive dise ase) August 29, 2024 10:57am Reason for Visit Admit Date Essential hypertension July 10, 2024 9:26am Atherosclerotic heart diseas e of [place] coronary artery without angina pectoris July 10, 2024 9:26am Hyperlipidemia July 10, 2024 9:2 6am PAOD (peripheral arterial occlusive dise ase) August 29, 2024 10:57am 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, [...] 2024 9:26am Atherosclerotic heart diseas e of [place] coronary artery without angina pectoris July 10, 2024 9:26am Hyperlipidemia July 10, 2024 9:2 6am PAOD (peripheral arterial occlusive dise ase) August 29, 2024 10:57am 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, bilateral October 09, 2024 2:55pm Essential hypertension October 29, 2024 10 :17am Preop cardiovascular exam October 29, 2024 10:17am Atherosclerotic heart diseas e of [place] coronary artery without angina pectoris October 29, [...] Will No January 30 2:08pm Power of Merchandising Execution Associate No January 30 021 2:08pm Advance Directive Response Recorded Date/ Time Name of Medical Power of Merchandising Execution Associate SON April 12, 2023 4:00pm Living Will Yes April 12 023 4:00pm Power of Merchandising Execution Associate Yes April 12, 2023 4:00pm Summary Purpose Additional Source Comments Source Comments (unrecognize d section and content) In the event this informatio n is protected by the Federal Confidentiality of Alcohol and Drug Abuse Patient Records regulations: The Federal rules restrict any use of the information to criminally investigate or prosecute any alcohol or drug abuse patient.[facility] Center[facility] the event this information is protected by the Federal Confidentiality of Alcohol and Drug Abuse Patient Records regulations: The Federal rules restrict any use of the information to criminally investigate or prosecute any alcohol or drug abuse patient.[facility] Center[facility] the event this information is protected by the Federal Confidentiality of Alcohol and Drug Abuse Patient Records regulations: The Federal rules restrict any use of the information to criminally investigate or prosecute any alcohol or drug abuse patient.[facility] CenterIn the event this information is protected by the Federal Confidentiality of Alcohol and Drug Abuse Patient Records regulations: The Federal rules restrict any use of the information to criminally investigate or prosecute any alcohol or drug abuse patient.[facility] CenterIn the event this information is protected by the Federal Confidentiality of Alcohol and Drug Abuse Patient Records regulations: The Federal rules restrict any use of the information to criminally investigate or prosecute any alcohol or drug abuse patient.[facility] the event this information is protected by the Federal Confidentiality of Alcohol and Drug Abuse Patient Records regulations: The Federal rules restrict any use of the information to criminally investigate or prosecute any alcohol or drug abuse patient.[facility] CenterIn the event this information is protected by the Federal Confidentiality of Alcohol and Drug Abuse Patient Records regulations: The Federal rules restrict any use of the information to criminally investigate or prosecute any alcohol or drug abuse patient.[facility] CenterIn the event this information is protected by [...] or prosecute any alcohol or drug abuse patient.[facility] CenterIn the event this information is protected by the Federal Confidentiality of Alcohol and Drug Abuse Patient Records regulations: The Federal rules restrict any use of the information to criminally investigate or prosecute any alcohol or drug abuse patient.[facility] CenterIn the event this information is protected by the Federal Confidentiality of Alcohol and Drug Abuse Patient Records regulations: The Federal rules restrict any use of the information to criminally investigate or prosecute any alcohol or drug abuse patient.[facility] CenterIn the event this information is protected by the Federal Confidentiality of Alcohol and Drug Abuse Patient Records regulations: The Federal rules restrict any use of the information to criminally investigate or prosecute any alcohol or drug abuse patient.[facility] CenterIn the event this information is protected by the Federal Confidentiality of Alcohol and Drug Abuse Patient Records regulations: The Federal rules restrict any use of the information to criminally investigate or prosecute any alcohol or drug abuse patient.[facility] CenterIn the event this information is protected by the Federal Confidentiality of Alcohol and Drug Abuse Patient Records regulations: The Federal rules restrict any use of the information to criminally investigate or prosecute any alcohol or drug abuse patient.[facility] CenterIn the event this information is protected by the Federal Confidentiality of Alcohol and Drug Abuse Patient Records regulations: The Federal rules restrict any use of the information to criminally investigate or prosecute any alcohol or drug abuse patient.[facility] CenterIn the event this information is protected by the Federal Confidentiality of Alcohol and Drug Abuse Patient Records regulations: The Federal rules restrict any use of the information to criminally investigate or prosecute any alcohol or drug abuse patient.[facility] CenterIn the event this information is protected by the Federal Confidentiality of Alcohol and Drug Abuse Patient Records regulations: The Federal rules restrict any use of the information to criminally investigate or prosecute any alcohol or drug abuse patient.[facility] CenterIn the event this information is protected by the Federal Confidentiality of Alcohol and Drug Abuse Patient Records regulations: The Federal rules restrict any use of the information to criminally investigate or prosecute any alcohol or drug abuse patient.[facility] CenterIn the event this information is protected by the Federal Confidentiality of Alcohol and Drug Abuse Patient Records regulations: The Federal rules restrict any use of the information to criminally investigate or prosecute any alcohol or drug abuse patient.[facility] CenterIn the event this information is protected by the Federal Confidentiality of Alcohol and Drug Abuse Patient Records regulations: The Federal rules restrict any use of the information to criminally investigate or prosecute any alcohol or drug abuse patient.[facility] CenterIn the event this information is protected by the Federal Confidentiality of Alcohol and Drug Abuse Patient Records regulations: The Federal rules restrict any use of the information to criminally investigate or prosecute any alcohol or drug abuse patient.[facility] CenterIn the event this information is protected by the Federal Confidentiality of Alcohol and Drug Abuse Patient Records regulations: The Federal rules restrict any use of the information to criminally investigate or prosecute any alcohol or drug abuse patient.[facility] CenterIn the event this information is protected by the Federal Confidentiality of Alcohol and Drug Abuse Patient Records regulations: The Federal rules restrict any use of the information to criminally investigate or prosecute any alcohol or drug abuse patient.[facility] CenterIn the event this information is protected by the Federal Confidentiality of Alcohol and Drug Abuse Patient Records regulations: The Federal rules restrict any use of the information to criminally investigate or prosecute any alcohol or drug abuse patient.[facility] CenterIn the event this information is protected by the Federal Confidentiality of Alcohol and Drug Abuse Patient Records regulations: The Federal rules restrict any use of the information to criminally investigate or prosecute any alcohol or drug abuse patient.[facility] CenterIn the event this information is protected by the Federal Confidentiality of Alcohol and Drug Abuse Patient Records regulations: The Federal rules restrict any use of the information to criminally investigate or prosecute any alcohol or drug abuse patient.[facility] CenterIn the event this information is protected by the Federal Confidentiality of Alcohol and Drug Abuse Patient Records regulations: The Federal rules restrict any use of the information to criminally investigate or prosecute any alcohol or drug abuse patient.[facility] CenterIn the event this information is protected by the Federal Confidentiality of Alcohol and Drug Abuse Patient Records regulations: The Federal rules restrict any use of the information to criminally investigate or prosecute any alcohol or drug abuse patient.[facility] CenterIn the event this information is protected by the Federal Confidentiality of Alcohol and Drug Abuse Patient Records regulations: The Federal rules restrict any use of the information to criminally investigate or prosecute any alcohol or drug abuse patient.[facility] CenterIn the event this information is protected by the Federal Confidentiality of Alcohol and Drug Abuse Patient Records regulations: The Federal rules restrict any use of the information to criminally investigate or prosecute any alcohol or drug abuse patient.[facility] CenterIn the event this information is protected by the Federal Confidentiality of Alcohol and Drug Abuse Patient Records regulations: The Federal rules restrict any use of the information to criminally investigate or prosecute any alcohol or drug abuse patient.[facility] CenterIn the event this information is protected by the Federal Confidentiality of Alcohol and Drug Abuse Patient Records regulations: The Federal rules restrict any use of the information to criminally investigate or prosecute any alcohol or drug abuse patient.[facility] CenterIn the event this information is protected by the Federal Confidentiality of Alcohol and Drug Abuse Patient Records regulations: The Federal rules restrict any use of the information to criminally investigate or prosecute any alcohol or drug abuse patient.[facility] CenterIn the event this information is protected by the Federal Confidentiality of Alcohol and Drug Abuse Patient Records regulations: The Federal rules restrict any use of the information to criminally investigate or prosecute any alcohol or drug abuse patient.[facility] CenterIn the event this information is protected by the Federal Confidentiality of Alcohol and Drug Abuse Patient Records regulations: The Federal rules restrict any use of the information to criminally investigate or prosecute any alcohol or drug abuse patient.[facility] CenterIn the event this information is protected by the Federal Confidentiality of Alcohol and Drug Abuse Patient Records regulations: The Federal rules restrict any use of the information to criminally investigate or prosecute any alcohol or drug abuse patient.[facility] CenterIn the event this information is protected by the Federal Confidentiality of Alcohol and Drug Abuse Patient Records regulations: The Federal rules restrict any use of the information to criminally investigate or prosecute any alcohol or drug abuse patient.[facility] CenterIn the event this information is protected by the Federal Confidentiality of Alcohol and Drug Abuse Patient Records regulations: The Federal rules restrict any use of the information to criminally investigate or prosecute any alcohol or drug abuse patient.[facility] Reason for Visit (unrecogniz ed section and [...] consult/test/treat Procedures consult/test/treat César Merrill MD [address] [place] [address] [facility] Referral ID Status Reason Start Date Expiration Date Visits Requested Visits Authorized [id number] Authorized Patient Cleared - Qualified 100% FAS [...] Diagnoses consult/test/treat Procedures consult/test/treat César Merrill MD [address] [place] [address] [facility] [id number] Referral ID Status Reason Start Date Expiration Date V isits Requested Visits Authorized [id number] Closed Patient Cleared - Qualified 100% FAS 11/28/2022 02/28/2023 99 99 Reason Comments Hospital F/U Specialty Diagnoses / Procedures Referred By Contac t Referred To Contact [facility] Diagnoses [facility] Hosp discharge oxygen levels dropped after surgery was discharged with O2 Procedures hosp follow up Self [facility] [place] [address] [place] [address] Referral ID Status Reason Start Date Expiration Date Visits Requested Visits Authorized [id number] Authorized Patient Cleared - Qualified 100% FAS 07/15/2023 99 99 Specialty Diagnoses / Procedures Referred By Contac t Referred To Contact Family Medicine / FAMILY [facility] Diagnoses [facility] FOLLOW UP-COVID/PNEUMONIA DISCHARGED 02/02 Procedures 4C EST HOSP/ER FU Self Terry Sullivan, ADULT FAMILY HOME PROGRAM MANAGER.BIOLOGY INTERN, DNP [address] [place] [address] Referral ID Status Reason Start Date Expiration Date V isits Requested Visits Authorized [id number] Closed Patient Cleared - Qualified 100% FAS 02/11/2021 05/12/2021 99 99 Reason Comments 6 Month Exam Specialty Diagnoses / Procedures Referred By Contac t Referred To Contact Family Medicine / FAMILY MEDICINE Diagnoses 6 month follow up Procedures 4C EST César Merrill MD [address] [place] [address] César Merrill MD [address] [place] [address] Referral ID Status Reason Start Date Expiration Date Visits Requested Visits Authorized [id number] Authorized Patient Cleared - Qualified 100% FAS 4 05/14/2024 99 99 Reason Comments Chest Congestion cough x 3 days Reason Comments Outside Diabetic Eye Exam Reason Onset Date Comments Refill Request 07/18/2024 Reason Comments Physical Specialty Diagnoses / Procedures Referred By Contac t Referred To Contact Family Medicine / [facility] Diagnoses cough, chest congestion Procedures EST SAME DAY Self Deysi Cain APRN.CNP [address] [place] [address] Phone: tel: fax: Referral ID Status Reason Start Date Expiration Date Visits Requested Visits Authorized [id number] Authorized Patient Cleared - Qualified 100% FAS 06/10/2024 09/08/2024 99 99 Reason Comments Patient Update Reason Comments Outside Vascular Reason Onset Date Comments Refill Request 09/10/2024 Reason Onset Date Comments Refill Request 10/14/2024 Reason Comments Results Outside results Care Teams (unrecognized sec tion and content) Production Controller Relationship Specialty Start Date End Date César Merrill MD [address] [place], [place] [id number] PCP - General Family Practice 12/11/16 Production Controller Relationship Specialty Start Date End Date César Merrill MD [address] [place], [place] [id number] PCP - General Family Practice 12/11/16 Production Controller Relationship Specialty Start Date End Date César Merrill MD [address] [place], [place] [id number] PCP - General Family Practice 12/11/16 Production Controller Relationship Specialty Start Date End Date César Merrill MD [address] [place] [address] PCP - General Family Practice 12/11/16 Production Controller Relationship Specialty Start Date End Date César Merrill MD [address] [place] [address] PCP - General Family Practice 12/11/16 Production Controller Relationship Specialty Start Date End Date César Merrill MD [address] [place] [address] PCP - General Family Practice 12/11/16 Production Controller Relationship Specialty Start Date End Date César Merrill MD [facility] [place] [address] PCP - General Family Practice 12/11/16 Production Controller Relationship Specialty Start Date End Date César Merrill MD [facility] [place] [address] PCP - General Family Practice 12/11/16 Production Controller Relationship Specialty Start Date End Date César Merrill MD [address] [place] [address] PCP - General Family Medicine 12/11/16 Production Controller Relationship Specialty Start Date End Date César Merrill MD [address] [place] [address] PCP - General Family Medicine 12/11/16 Production Controller Relationship Specialty Start Date End Date César Merrill MD [facility] [facility] [place] [address] PCP - General Family Medicine 12/11/16 Production Controller Relationship Specialty Start Date End Date César Merrill MD [facility] [place] [address] PCP - General Family Medicine 12/11/16 Production Controller Relationship Specialty Start Date End Date César Merrill MD [address] [place] [address] PCP - General Family Medicine 12/11/16 Team Status: Active Member Role Status Dates Dr. César Merrill MD Family Provider Active Dr. César Merrill MD Primary Care Provider Active Team Status: Inactive Member Role Status Dates Dr. César Merrill MD Primary Care Provider, Referri ng Provider Active January Loera TRAY SETTER, TRAY SETTER-C Attending Provider Active Team Status: Inactive Member Role Status Dates Dr. César Merrill MD Primary Care Provider Active January Loera TRAY SETTER, TRAY SETTER-C Attending Provider, Patrick gregory Active Production Controller Relationship Specialty Start Date End Date César Merrill MD [address] [place] [address] PCP - General Family Medicine 12/11/16 Production Controller Relationship Specialty Start Date End Date César Merrill MD [address] [place] [address] PCP - General Family Medicine 12/11/16 Production Controller Relationship Specialty Start Date End Date César Merrill MD [address] [place] [address] PCP - General Family Medicine 12/11/16 Production Controller Relationship Specialty Start Date End Date César Merrill MD [address] [place] [address] PCP - General Family Medicine 12/11/16 Production Controller Relationship Specialty Start Date End Date César Merrill MD [address] [place] [address] PCP - General Family Medicine 12/11/16 Production Controller Relationship Specialty Start Date End Date César Merrill MD [address] [place] [address] PCP - General Family Medicine 12/11/16 Production Controller Relationship Specialty Start Date End Date César Merrill MD [address] [place] [address] PCP - General Family Medicine 12/11/16 Production Controller Relationship Specialty Start Date End Date César Merrill MD [address] [place] [address] PCP - General Family Medicine 12/11/16 Production Controller Relationship Specialty Start Date End Date César Merrill MD [address] [place] [address] PCP - General Family Medicine 12/11/16 Production Controller Relationship Specialty Start Date End Date César Merrill MD [address] [place] [address] PCP - General Family Medicine 12/11/16 Production Controller Relationship Specialty Start Date End Date César Merrill MD [address] [place] [address] PCP - General Family Medicine 12/11/16 Team [...] Lenore Robledo , DO Other Provider Active Production Controller Relationship Specialty Start Date End Date César Merrill MD [address] [place] [address] PCP - General Family Medicine 12/11/16 Fartun Knight, BOBBY.BIOLOGY INTERN [address] [place] [address] Gas Station Attendant Family Medicine 04/05/24 Katarzyna Munson PA-C [address] [place] [address] Gas Station Attendant [facility] Medicine 04/05/24 Production Controller Relationship Specialty Start Date End Date César Merrill MD [address] [place] [address] PCP - General Family Medicine 12/11/16 Fartun Knight, ADULT FAMILY HOME PROGRAM MANAGER.BIOLOGY INTERN [address] [place] [address] Gas Station Attendant Family Medicine 04/05/24 Katarzyna Munson PA-C [address] [place] [address] Gas Station Attendant [facility] Medicine 04/05/24 Production Controller Relationship Specialty Start Date End Date César Merrill MD [address] [place] [address] PCP - General Family Medicine 12/11/16 Fartun Knight, ADULT FAMILY HOME PROGRAM MANAGER.BIOLOGY INTERN [address] [place] [address] Gas Station Attendant Family Medicine 04/05/24 Katarzyna Munson PA-C [address] [place] [address] Gas Station Attendant Family Medicine 04/05/24 Production Controller Relationship Specialty Start Date End Date César Merrill MD [address] [place] [address] PCP - General Family Medicine 12/11/16 Fartun Knight, ADULT FAMILY HOME PROGRAM MANAGER.BIOLOGY INTERN [address] [place] [address] Gas Station Attendant Family Medicine 04/05/24 Katarzyna Munson PA-C [address] [place] [address] [facility] Production Controller Relationship Specialty Start Date End Date César Merrill MD [address] [place] [address] PCP - General Family Medicine 12/11/16 Fartun Knight, ADULT FAMILY HOME PROGRAM MANAGER.BIOLOGY INTERN [address] [place] [address] Gas Station Attendant Family Medicine 04/05/24 Katarzyna Munson PA-C [address] [place] [address] Gas Station Attendant Family Medicine 04/05/24 Production Controller Relationship Specialty Start Date End Date César Merrill MD [address] [place] [address] PCP - General Family Medicine 12/11/16 08/03/24 César Merrill MD [address] [place] [address] PCP - General Family Medicine 08/04/24 Fartun Knight APRN.BIOLOGY INTERN [address] [place] [address] Gas Station Attendant Family Medicine 04/05/24 Katarzyna Munson PA-C [address] [place] [address] Gas Station Attendant Family Medicine 04/05/24 Production Controller Relationship Specialty Start Date End Date César Merrill MD [address] [place] [address] PCP - General Family Medicine 08/04/24 Fartun Knight APRN.BIOLOGY INTERN [address] [place] [address] Gas Station Attendant Family Medicine 04/05/24 Katarzyna Munson PA-C [facility] [place] [address] Gas Station Attendant Family [facility] 04/05/24 Production Controller Relationship Specialty Start Date End Date César Merrill MD [address] [place] [address] PCP - General Family Medicine 08/04/24 Fartun Knight APRN.BIOLOGY INTERN [address] [place] [address] [facility] 04/05/24 Katarzyna Munson PA-C [address] [place] [address] [facility] 04/05/24 Team Status: Active Member Role Status Dates Dr. César Merrill MD Primary Care Provider Active Team Status: Inactive Member Role Status Dates Dr. Césra Merrill MD Primary Care Provider Active Start: [...] 03, 2024 End: October 03, 2024 STEPHEN oTth Referring Provider Active Star t: October 03, 2024 End: Tiffany 6th, 2025 Production Controller Relationship Specialty Start Date End Date César Merrill MD [address] [place] [address] PCP - General Family Medicine 08/04/24 Fartun Knight, BOBBY.BIOLOGY INTERN [address] [place] [address] Gas Station Attendant Family Medicine 09/29/24 Katarzyna Munson PA-C [address] [place] [address] Gas Station Attendant Family Medicine 09/29/24 Production Controller Relationship Specialty Start Date End Date César Merrill MD [address] [place] [address] PCP - General Family Medicine 08/04/24 Fartun Knight, ADULT FAMILY HOME PROGRAM MANAGER.BIOLOGY INTERN [address] [place] [address] Gas Station Attendant Family Medicine 09/29/24 Katarzyna Munson PA-C [address] [place] [address] Gas Station Attendant Family Medicine 09/29/24 Production Controller Relationship Specialty Start Date End Date César Merrill MD [address] [place] [address] PCP - General Family Medicine 08/04/24 Fartun Knight, ADULT FAMILY HOME PROGRAM MANAGER.BIOLOGY INTERN [address] [place] [address] Gas Station Attendant Family Medicine 09/29/24 Katarzyna Munson PA-C [address] [place] [address] Gas Station Attendant Family Medicine 09/29/24 Team Status: Active Member [...] 2024 End: October 29, 2024 Trey Malagon TRAY SETTER, TRAY SETTER-C Attending Provider Active S tart: October 29, [...] section and content) DATE CREATED AUTHOR 08/17/2023 [facility] DATE CREATED AUTHOR AUTHOR'S ORGANIZ ATION 10/20/2024 [facility] DATE CREATED AUTHOR AUTHOR'S ORGANIZ ATION 11/12/2024 [facility] FOR RECORDS PERTAINING TO PATIENTS [...] BE BASED ON THE PRIMARY CLINICAL RECORDS. [facility]. provides no warranty or guarantee of the accuracy or completeness of information in this document.
--- NOTE | 2024-11-12 12:09 | STRESSREP_ITS ---
Stress Test Report Date: 11/12/2024 Procedure: Pharmacologic stress nuclear imaging study Indications: Coronary artery disease Consent: Per the patient Procedure: The patient underwent pharmacologic (Regadenoson 0.4mg ) evaluation with a peak heart rate of 90 beats per minute (64%predicted maximal heart rate) and a peak blood pressure of 152/70 mmHg. The baseline ECG demonstrated sinus rhythm. The peak pharmacologic ECG not show any ischemic changes. There were no cardiac dysrhythmias pretest, during pharmacologic infusion, or recovery. There was no complaint of chest discomfort during pharmacologic infusion or recovery. The patient was injected with 14.2 millicuries of technetium 99m Cardiolite and subsequently rest SPECT Cardiolite nuclear imaging was obtained in the horizontal long, vertical long, and short axis views. The patient underwent pharmacologic (Regadenoson) evaluation. The patient was injected with 45.0 millicuries of technetium 99m Cardiolite and subsequently stress SPECT Cardiolite nuclear imaging was obtained in the horizontal long, vertical long, and short axis views. A gated Cardiolite study at peak stress was obtained. The examination was stopped secondary to completion of protocol. Rest and stress SPECT Cardiolite nuclear imaging status post realignment, normalization, and attenuation correction demonstrate mildly reduced perfusion of the basal inferior and lateral wall post pharmacological stress. There is end systolic thickening and brightening. The gated Cardiolite study demonstrates myocardial thickening and inward wall motion. The reported LVEF is 60%. Impression: 1. Pharmacologic (Regadenoson) evaluation 2. Peak pharmacologic ECG with no ischemic changes. 3. There were no cardiac dysrhythmias pretest, during pharmacologic infusion, or recovery. 5. Mildly reduced reversible perfusion of the basal inferior and lateral wall, suggestive of mild ischemia. 6. The gated Cardiolite study reports an LVEF of 60%. This note was generated with [email or web address] software. It may contain incorrect words, spelling, and punctuation that were not noted in checking the note before signing.
== END | disposition home or self-care (01) ==
PROVIDERS: PCP Family Medicine; Referring Provider Nurse Practitioner Family; Visit Provider Nurse Practitioner Family
DX: Z01.818 Encounter for other preprocedural examination (principal); I10 Essential (primary) hypertension; E78.00 Pure hypercholesterolemia, unspecified
CPT/HCPCS: 78452; 93017; A9500; A4216; J2785

== ENCOUNTER → 2024-11-21 | Outpatient (CLI) | payer SELFPAY, OTHER ==
--- NOTE | 2024-11-21 10:11 | RAD_ITS ---
EXAM: XR Chest, 2 Views CLINICAL INDICATION: PRE-OPERATIVE: LHC TECHNIQUE: Frontal and lateral views of the chest. COMPARISON: No relevant prior studies available. FINDINGS: LUNGS AND PLEURAL SPACES: Unremarkable. No consolidation. No pneumothorax. HEART: Unremarkable. No cardiomegaly. MEDIASTINUM: Unremarkable. Normal mediastinal contour. BONES/JOINTS: Unremarkable. No acute fracture. RAD/Chest PA and Lateral IMPRESSION: No acute cardiopulmonary process. Reading Location: [id number]
== END | disposition home or self-care (01) ==
PROVIDERS: PCP Family Medicine; Referring Provider Nurse Practitioner Family; Visit Provider Nurse Practitioner Family
DX: I70.223 Atherosclerosis of native arteries of extremities with rest pain, bilateral legs (principal); I34.1 Nonrheumatic mitral (valve) prolapse; I25.2 Old myocardial infarction; I25.10 Atherosclerotic heart disease of native coronary artery without angina pectoris; R94.39 Abnormal result of other cardiovascular function study; Z95.5 Presence of coronary angioplasty implant and graft
CPT/HCPCS: 71046

== ENCOUNTER 2024-11-27 07:24 | Day surgery (SDC) | payer SELFPAY, OTHER ==
[2024-11-26 12:14] VITALS: BMI 37.3
--- NOTE | 2024-12-08 09:47 | CL.D_ITS ---
Patient Name: ESTELLA CANO Study Date: 11/27/2024 Performing: Debbie Cablalero MD Ht: 66 inches 167.64 cm : 1945 Wt: 231 lbs 104.78 kg Age: 79 Gender: male BSA: 2.13 PROCEDURE(S) PERFORMED [id number]-([id number])[facility] CLINICAL PROFILE AND INDICATIONS Indications: Stable Known CAD Heart Failure: None Stress/Imaging Stress Test w/SPECT MPI: Yes Result: Positive Intermediate RiskStress Test with SPECT MPI: Positive Intermediate Risk CAD Presentations: No Sxs, no angina. CONCLUSIONS 60% distal LMCA 70% ostial, 70% Mid LAD 95% ostial LCX 70% distal RCA RECOMMENDATIONS Surgery consult for coronary revascularization DESCRIPTION OF PROCEDURE The patient arrived to the procedure lab. The risks and benefits of the procedure as well as a full description of our services here and current unavailability of surgical backup were fully explained to the patient and/or their significant other prior to the catheterization. The Timeout was completed, verifying the correct patient and procedure. The patient's procedural site was prepped and draped in the usual fashion. Local anesthetic was given subcutaneously to right radial region with Lidocaine 2%. Using a modified Seldinger technique, arterial access was obtained via the right radial artery, a 6Fr sheath was inserted. Right Coronary Artery selective angiography was then performed in multiple views using a 5 Fr. 4.0 [place] catheter. Left Coronary Artery selective angiography was performed in multiple views using a 5 Fr. 4.0 [place] catheter.The arterial sheath was pulled and a TR Band was applied for hemostasis. 10cc aire CORONARY ANGIOGRAPHY DOMINANCE: Right Dominant LEFT MAIN: Tubular 60% Distal lesion in LMCA LEFT ANTERIOR DESCENDING ARTERY: LAD: Tubular 70% Ostial lesion in LAD Tubular 70% Mid lesion in LAD RIGHT CORONARY ARTERY: RCA: Calcified 50% Proximal lesion in RCA Tubular 70% Distal lesion in RCA COMPLICATIONS No Complications PROCEDURE MEDICATIONS Fentanyl 50 mcg IV Versed 1 mg IV Oxygen: 2 L/min via nasal cannula Heparin given IA 11/27/2024 09:56:11 Verapamil 2.5mg, Ntg 200mcgs, 2000 units of Heparin given IA 11/27/2024 09:56:11 SUMMARY OF HEMODYNAMIC DATA Time AIR REST AO 138/60 (90) SA 10:08:13 AIR REST 10:24:00 AIR REST ECG 10:24:00 Signed By Debbie Caballero MD On 11/27/2024 10:43:53 Debbie Caballero MD
== END 2024-11-27 12:00 | disposition home or self-care (01) ==
PROVIDERS: PCP Family Medicine; Referring Provider Internal Medicine Cardiovascular Disease; Visit Provider Internal Medicine Cardiovascular Disease
DX: I25.10 Atherosclerotic heart disease of native coronary artery without angina pectoris (principal); E11.51 Type 2 diabetes mellitus with diabetic peripheral angiopathy without gangrene; I10 Essential (primary) hypertension; I25.2 Old myocardial infarction; E78.00 Pure hypercholesterolemia, unspecified; E66.9 Obesity, unspecified; Z68.37 Body mass index [BMI] 37.0-37.9, adult; R94.39 Abnormal result of other cardiovascular function study; Z95.5 Presence of coronary angioplasty implant and graft; Z79.02 Long term (current) use of antithrombotics/antiplatelets; Z79.82 Long term (current) use of aspirin; Z79.84 Long term (current) use of oral hypoglycemic drugs; Z79.899 Other long term (current) drug therapy; Z87.891 Personal history of nicotine dependence
CPT/HCPCS: 93454; 99152; 99153; C1769; Q9967; C1894

== ENCOUNTER → 2025-01-15 | Outpatient (CLI) | payer OTHER, SELFPAY ==
--- NOTE | 2025-01-15 07:49 | ECHOD_ITS ---
Reason For Study Reason For Study: AORTIC Procedure This was a 2D Doppler, Color Flow transthoracic echocardiogram. Exam performed in department. Left Ventricle Normal LV size. Moderate concentric left ventricular hypertrophy. The left ventricular ejection fraction is 55 %. Stage 1 diastolic dysfunction. No regional wall motion abnormalities noted. Right Ventricle Normal RV size. Normal systolic function. Atria Normal left atrium. Normal right atrium. Mitral Valve Normal mitral valve. Tricuspid Valve Normal tricuspid valve. Aortic Valve Trisinus/trileaflet aortic valve. Pulmonic Valve Normal pulmonic valve. Great Vessels Normal aortic root. The pulmonary artery is normal size. Inferior vena cava collapse with respiration. Pericardium/Pleural No pericardial effusion. MMode/2D Measurements & Calculations LVIDd: 5.7 cm IVSd: 1.4 cm Ao root diam: 3.6 cm LVIDs: 3.4 cm LVPWd: 1.5 cm FS: 39.4 % LAV(MOD-bp): 43.8 ml LVAd ap4: 28.7 cm2 LVAd ap2: 25.6 cm2 LAV(MOD-bp) Indexed: 20.8 ml/m2 LVLd ap4: 8.6 cm LVLd ap2: 8.6 cm LAV(MOD-sp2): 43.1 ml EDV(MOD-sp4): 80.8 ml EDV(MOD-sp2): 66.4 ml LAV(MOD-sp4): 38.1 ml EDV(sp4-el): 81.7 ml EDV(sp2-el): 64.4 ml LVAs ap4: 16.2 cm2 LVAs ap2: 15.1 cm2 LVLs ap4: 6.5 cm LVLs ap2: 7.3 cm ESV(MOD-sp4): 35.1 ml ESV(MOD-sp2): 29.1 ml ESV(sp4-el): 34.3 ml ESV(sp2-el): 26.2 ml EF(MOD-sp4): 56.5 % EF(MOD-sp2): 56.2 % EF(sp4-el): 58.0 % SV(MOD-sp4): 45.7 ml SV(MOD-sp2): 37.3 ml SV(sp4-el): 47.3 ml SI(MOD-sp4): 21.7 ml/m2 SI(MOD-sp2): 17.7 ml/m2 LA A4 area: 15.2 cm2 LA dimension(2D): 4.5 cm RA A4 area: 12.4 cm2 Time Measurements MV dec time: 0.19 sec Doppler Measurements & Calculations MV E max bjorn: 60.2 cm/sec MV V2 max: 96.3 cm/sec MV dec slope: 330.8 cm/sec2 MV A max bjorn: 86.7 cm/sec MV max P.7 mmHg MV E/A: 0.69 MV V2 mean: 53.3 cm/sec MV mean P.3 mmHg MV V2 VTI: 35.1 cm Ao V2 max: 147.9 cm/sec LV V1 max: 101.6 cm/sec PA V2 max: 94.4 cm/sec Ao max P.8 mmHg LV V1 max P.1 mmHg PA V2 mean: 61.7 cm/sec Ao V2 mean: 100.6 cm/sec LV V1 mean P.4 mmHg Ao mean P.7 mmHg LV V1 mean: 72.9 cm/sec Ao V2 VTI: 41.4 cm LV V1 VTI: 28.0 cm AV (velocity ratio): 0.68 ECHO/Echo Complete Interpretation Summary Normal LV size. Moderate concentric left ventricular hypertrophy. The left ventricular ejection fraction is 55 %. Stage 1 diastolic dysfunction. Ordering Physician: PAYTON BRIZUELA Referring Physician: PAYTON BRIZUELA Performed By: Alize Herrera RCS
--- NOTE | 2025-01-15 07:50 | CT_ITS ---
PROCEDURE: CHEST WITHOUT CONTRAST 01/15/2025 REASON FOR EXAM: AORTIC VALVE STENOSIS TECHNIQUE: Chest CT without contrast. Coronal and Sagittal reconstruction series were provided. One or more dose reduction techniques were used (e.g., Automated exposure control, adjustment of the mA and/or kV according to patient size, use of iterative reconstruction technique RADIATION DOSE SUMMARY: DLP: 602.94 mGycm COMPARISON: CT chest dated 01/30/2021 FINDINGS: There is a calcified granuloma in the right lower lobe. Dependent atelectatic changes and consolidation noted on previous exams has resolved. Mild ground-glass opacities and diffuse interstitial lung disease again demonstrated. No pneumothorax. No effusion. The thoracic inlet and base of the neck appear within normal limits. Heavy atherosclerosis of the aorta present. No aneurysm or dissection. Coronary arterial calcifications evident with heavy calcifications at the aortic leaflets. No pericardial effusion. There are shotty lymph nodes in the mediastinum which are not pathologically enlarged by size criteria. A calcified subcarinal and right hilar lymph nodes are present. Upper abdominal structures are within normal limits. Osseous structures reveal no destructive bone lesion or acute fracture. Multilevel spondylosis seen. CT/Chest without Contrast IMPRESSION: Complete resolution of consolidations and dependent atelectasis noted in previo us exams. Mild diffuse interstitial lung disease and dependent atelectasis. No acute cardiopulmonary process. Heavy calcifications of the aortic leaflets. Coronary arterial calcifications. No pericardial effusion. Reading Location: [facility]
--- NOTE | 2025-01-15 07:51 | VDLE_ITS ---
Reason For Study Reason For Study: Pre-Op Planning RIGHT LEFT GSV GSV Prox Thigh - 0.33cm x 0.37cm Prox Thigh - 0.45cm x 0.54cm Mid Thigh - 0.38cm x 0.37cm Mid Thigh - 0.49cm x 0.51cm Dist Thigh - 0.30cm x 0.34cm Dist Thigh - 0.52cm x 0.57cm Knee - 0.29cm x 0.32cm Knee - 0.41cm x 0.38cm Prox Calf - 0.20cm x 0.21cm Prox Calf - 0.16cm x 0.20cm Mid Calf - 0.22cm x 0.26cm Mid Calf - 0.16cm x 0.18cm Distal Calf - 0.18cm x 0.21cm Distal Calf - 0.18cm x 0.21cm SSV ASV Prox Calf - 0.06cm x 0.10cm Prox Calf - 0.39cm x 0.47cm Mid Calf - 0.09cm x 0.11cm Mid Calf - 0.39cm x 0.46cm Dist Calf - 0.09cm x 0.13cm Dist Calf - 0.13cm x 0.18cm GSV and SSV appear compressible throughout. SSV Procedure Prox Calf - 0.07cm x 0.09cm This is a venous duplex using B-mode, color flow and Mid Calf - 0.09cm x 0.12cm spectral Doppler. Dist Calf - 0.15cm x 0.14cm Exam performed in department. The exam was diagnostic. GSV, ASV and SSV appear compressible throughout. VL/Saphenous Vein Mapping, Bilat Interpretation Summary Bilateral great saphenous veins patent with measurements above. Bilateral small saphenous veins patent with measurements above. Ordering Physician: PAYTON BRIZUELA Referring Physician: César Osorio Performed By: Hamilton Kelly RVT and Student
== END | disposition home or self-care (01) ==
LOC: CVS 07:39
PROVIDERS: PCP Family Medicine
DX: Z01.818 Encounter for other preprocedural examination (principal); I35.0 Nonrheumatic aortic (valve) stenosis; R07.9 Chest pain, unspecified
CPT/HCPCS: 71250; 93306; 93970

== ENCOUNTER → 2025-02-05 | Outpatient (CLI) | payer SELFPAY, OTHER | END | disposition home or self-care (01) | LOC: CVS 09:45 | PROVIDERS: PCP Family Medicine; Referring Provider Thoracic Surgery (Cardiothoracic Vascular Surgery); Visit Provider Thoracic Surgery (Cardiothoracic Vascular Surgery) | DX: R09.89 Other specified symptoms and signs involving the circulatory and respiratory systems (principal) | CPT/HCPCS: 93880 ==

== ENCOUNTER → 2025-03-12 | Outpatient (CLI) | payer OTHER, SELFPAY ==
[2025-03-12 08:35] LABS: Hematocrit 39.1 % (40-54); Hemoglobin 13.0 g/dL (13.0-16.5); Immature Granulocytes Count 0.010 X10^3/uL (0.0-0.0); Mean Corp Hgb Conc 33.2 g/dL (32-36); Mean Corpuscular Volume 106.3 fL (80-94); Mean Platelet Vol. 9.4 fl (6.2-12.0); NRBC Flagged by Analyzer 0 % (0-5); Platelet Count 168 K/mm3 (150-450); RBC Distribution Width CV 13.9 % (11.6-14.6); RBC Distribution Width SD 54.4 fl (35.1-43.9); Red Blood Count 3.68 M/mm3 (4.6-6.2); White Blood Count 4.0 K/mm3 (4.4-11.0)
[2025-03-12 09:08] LABS: AST(SGOT) 23 U/L (<=37); Alanine Aminotransfer ALT/SGPT 14 U/L (<=46); Albumin, Serum 4.0 g/dL (3.4-4.8); Alkaline Phosphatase 67 U/L (40-129); Anion Gap 12 (5-15); BUN 33 mg/dL (4-19); BUN/Creat Ratio 20.9 RATIO (10-20); Calcium,Total 9.6 mg/dL (7.6-11.0); Carbon Dioxide 26.2 mmol/L (21.0-32.0); Chloride 105 mmol/L (98-108); Cholesterol 125 mg/dL (<=200); Globulin 3.5 g/dL (2.2-4.2); Glucose 174 mg/dL (70-99); Low Density Lipoprotein Calc. 53 mg/dL; Potassium 3.9 mmol/L (3.3-5.1); Pro- Brain NATRIURETIC PEPTIDE 186 pg/mL (<=1800); Triglycerides 137 mg/dL; Very Low Density Lipoprotein 27 mg/dL (5-40); cholesterol:hdl ratio screen 2.61
== END | disposition home or self-care (01) ==
LOC: LAB 07:54
PROVIDERS: PCP Family Medicine; Referring Provider Internal Medicine; Visit Provider Internal Medicine
DX: R06.02 Shortness of breath (principal)
CPT/HCPCS: 36415; 80053; 80061; 83880; 85025

== ENCOUNTER 2025-03-20 11:59 | Inpatient (IN) | payer OTHER, SELFPAY ==
[2025-03-20] VITALS (10 sets, daily range): BP systolic 131–150; BP diastolic 50–70; PULSE 57–92; RESP 13–20; TEMP 36.6–36.7; O2SAT 87–99; BMI 41.5; BMI 37.6
--- NOTE | 2025-03-20 13:15 | EKG12_ITS ---
Test Reason : Blood Pressure : */* mmHG Vent. Rate : 59 BPM Atrial Rate : * BPM P-R Int : * ms QRS Dur : 96 ms QT Int : 416 ms P-R-T Axes : * -23 17 degrees QTcB Int : 411 ms Normal sinus rhythm Minimal voltage criteria for LVH, may be normal variant ( R in aVL ) Abnormal ECG Confirmed by CHAI BAIN, BRIGIDA ([id number]), publishing editor IRMA CHOU ([id number]) on 03/23/2025 1:27:33 PM Referred By: Confirmed By: BRIGIDA PAULA MD
--- NOTE | 2025-03-20 13:15 | CT_ITS ---
PROCEDURE: CTA ABD W/RUNOFF W/WO CONTRAST 03/20/2025 REASON FOR EXAM: LLE PAIN WORSE, HX OF PAD TECHNIQUE: Procedure Code: [id number] Modality: CT Procedure: CTA ABD W/RUNOFF W/WO CONTRAST Multiplanar Sagittal and Coronal images were obtained. CONTRAST: Isovue 370 VOLUME: 100 mL One or more dose reduction techniques were used (e.g., Automated exposure control, adjustment of the mA and/or kV according to patient size, use of iterative reconstruction technique). RADIATION DOSE SUMMARY: CTDlvol: 4.32 mGy DLP: 161.27 mGycm COMPARISON: CTA abdomen and pelvis October 03, 2024. FINDINGS: Aorta: Atherosclerotic calcifications. No aneurysm. Iliac Arteries: Patent. Celiac: Patent SMA: Patent. BROOKE : Stenotic but patent. Right Renal: The 2 right renal arteries are patent. Left Renal: Patent left renal artery. Right lower extremity arteries: Severe narrowing of the right common femoral artery. The femoris profunda and femoral artery are patent. The popliteal and 3 runoff arteries to the right foot are present and patent. Left lower extremity arteries: Severe narrowing of the left common femoral artery. The femoris profunda, femoral and popliteal artery are patent. The 3 runoff arteries to the left foot are present. Extravascular Findings: Moderate cardiomegaly. Atherosclerotic calcifications of the coronary arteries. Diffuse interstitial pulmonary densities may represent CHF. The liver, spleen, adrenal glands, pancreas, and bladder are unremarkable. Perinephric fat stranding. No hydronephrosis. No nephrolithiasis. Fat containing periumbilical hernia measures 2.4 x 5.4 x 2.4 cm. No evidence of induration. Colonic diverticulosis without evidence of acute diverticulitis. No bowel obstruction. Cholelithiasis. No biliary dilation. No acute bony abnormalities. CT/CTA Abd w/Runoff W/WO Contrast IMPRESSION: Severe narrowing of the bilateral common femoral arteries mild atherosclerotic calcifications. The remainder runoff arteries to the lower extremities are patent. Perinephric fat stranding. Correlation with the urinalysis is recommended. Otherwise, no abdominopelvic abnormalities. Diffuse interstitial pulmonary densities may represent CHF. Correlate clinical ly. Reading Location: [facility]
--- NOTE | 2025-03-20 13:44 | EX.ED.DYSGE1 ---
HPI History of Present Illness Chief Complaint: Lower Extremity Injury Narrative Narrative: Patient is a 80-year-old male with past medical history of peripheral arterial disease, CAD status post stents, diabetes, hypertension, hyperlipidemia who presented to the emergency department with a chief complaint of left lower extremity pain. Patient states that he is to have surgery on his left lower extremity with Dr. Taylor however he states that he was having preoperative clearance given his cardiac history and noted that he failed the stress test. He states that he had a heart catheterization and at that point time they felt it was not safe for them to place stents and referred him to [place] for bypass. He states that he went to [place] and discussed with the doctor there and they felt that they could place stents therefore they were requesting further testing which was ultimately done. He states that he is still waiting for this stent placement before Dr. Taylor will do his surgery on his legs. He states that he has 100% occlusion of his left leg and 80% in his right leg. He states that for the past few days he has had worsening pain on and off and notes that he 2 days ago he had severe pain and then he felt something move and then after that his pain got better. He states that today his pain got bad again prompting him to come here for further evaluation management. Patient states that his legs have been chronically swollen. [facility] Medical History Peripheral artery disease Multi-vessel coronary artery stenosis Ambulates with cane History of pain when walking History of heart attack Wears hearing aid Wears glasses Wears dentures Diabetes Prostate disease High cholesterol Back pain Dietary restriction Former smoker Shortness of breath on exertion Leg cramps History of edema History of stress test History of echocardiogram Cardiology follow-up encounter History of rheumatic fever Essential hypertension Arthritis CPAP (continuous positive airway pressure) dependence Acute and chronic respiratory failure with hypoxia Hyperlipidemia Nonrheumatic mitral (valve) prolapse History of anterior wall myocardial infarction Stented coronary artery (~08/01/97) Atherosclerotic heart disease of three affiliated coronary artery without angina pectoris Home Medications ?Medication ?Instructions ?Recorded ?Last Taken ?Type nitroglycerin 0.4 mg sublingual 0.4 mg sublingual Q5-15M PRN chest 11/04/18 Unknown Rx tablet pain #25 tabs baclofen 20 mg tablet 20 mg PO QHS Check with primary 01/30/21 Unknown History doctor tamsulosin 0.4 mg capsule 0.4 mg PO QHS Check with primary 01/30/21 Unknown History doctor gabapentin 100 mg capsule 100 mg PO QHS LEG CRAMPS 07/21/21 Unknown History pioglitazone 45 mg tablet 45 mg PO DAILY DIABETES 07/21/21 Unknown History glimepiride 4 mg tablet 4 mg PO BID DIABETES 01/11/22 Unknown History losartan 50 mg-hydrochlorothiazide 1 tab PO DAILY BP #90 tabs 01/03/24 Unknown Rx 12.5 mg tablet simvastatin 80 mg tablet 80 mg PO QHS CHOLESTEROL #90 01/03/24 Unknown Rx TABLETS aspirin 81 mg chewable tablet 162 mg (2 x 81 mg) PO QDAY PVD #60 07/10/24 11/27/24 Rx (Manan Chewable Low Dose Aspirin) tabs berberine chloride 500 mg capsule 1,000 mg PO BID SUPPLEMENT 08/29/24 Unknown History cilostazol 50 mg tablet 50 mg PO BID PVD #60 tabs 08/29/24 Unknown Rx clopidogrel 75 mg tablet (Plavix) 75 mg PO DAILY PVD #180 tabs 10/09/24 11/27/24 Rx atenolol 25 mg tablet 25 mg PO DAILY BP #90 tabs 10/15/24 Unknown Rx CIRULATION CALCIUM 1 tab PO DAILY SUPPLEMENT 11/06/24 Unknown History CURALIAN 2 cap PO BID SUPPLEMENT 11/06/24 Unknown History DYSODIUM 1 tab PO DAILY SUPPLEMENT 11/06/24 Unknown History PRO-CURSE 1 tab PO DAILY SUPPLEMENT 11/06/24 Unknown History SUPER HEALTH PROSTATE 1 tab PO DAILY SUPPLEMENT 11/06/24 Unknown History cholecalciferol (vitamin D3) 50 50 mcg PO DAILY SUPPLEMENT 11/06/24 Unknown History mcg (2,000 unit) capsule (Vitamin D3) mecobalamin (vitamin B12) 1,000 1,000 mcg PO DAILY SUPPLEMENT 11/06/24 Unknown History mcg chewable tablet Allergy/AdvReac Type Severity Reaction Status Date / Time rosuvastatin (From Crestor) Allergy Intermediate Rash Verified 03/20/25 13:49 Family History Father , age 81 CAD (coronary artery disease) History of angioplasty, stent, CABG and valvular heart disease Mother , age 42 Heart disease Brother No problems noted. Sister , age 57 of renal cancer Renal cancer Surgical History History of lumbar fusion History of cardiac catheterization Hx of total knee arthroplasty Hx of fusion of cervical spine Presence of coronary angioplasty implant and graft (~08/01/97) Social History household members: spouse Smoking Status: Former smoker alcohol intake: current alcohol intake frequency: other substance use type: does not use ROS ROS ED ROS Narrative Constitutional: Denies any fevers or chills Cardiovascular: Denies chest pain Respiratory: Denies new shortness of breath Abdomen: Denies abdominal pain nausea vomit diarrhea : Denies any urinary symptoms Neurological: Denies any new numbness, tingling Musculoskeletal: Complains of left lower extremity pain as noted above Skin: Denies any new rashes or lesions EXAM Physical Exam Narrative Exam Narrative: General: Patient lying in bed rest comfortably did not appear to be in acute distress Head: Atraumatic, normocephalic Eyes: PERRL bilaterally, EOMI bilaterally, no conjunctival injection noted Neck: Soft, supple, trachea midline Cardiovascular: Regular rate and rhythm Respiratory: Clear to auscultation bilaterally Abdomen: Soft, nondistended, nontender to palpation Extremities: Patient has 2+ pitting edema in the bilateral lower extremities, patient had very weak monophasic to no dopplerable pulses in the left lower extremity the left lower extremity is warm to the touch and cap refill is approximately 3 seconds Neurological: Patient following commands that he was at [facility] year is 2024 Skin: Warm, dry, intact, patient has what appears to be a chronic skin wound noted to the left anterior tam no concern for infection at this point time chronic skin changes noted to bilateral lower extremities Const Vital Signs: 03/20/25 11:59 03/20/25 13:59 03/20/25 14:14 Temperature 98 F Temperature Source Temporal Pulse Rate 73 57 L Respiratory Rate 14 13 Blood Pressure 150/70 H 145/58 H Blood Pressure Mean 96 87 Pulse Ox 99 94 Oxygen Delivery Method Room Air Room Air Room Air 03/20/25 15:00 03/20/25 17:00 Temperature Temperature Source Pulse Rate 67 66 Respiratory Rate 19 H 20 H Blood Pressure 136/52 H 136/50 H Blood Pressure Mean 80 78 Pulse Ox 93 90 Oxygen Delivery Method Room Air MDM MDM MDM Narrative Medical decision making narrative: Patient is 80-year-old male who presented to the emergency department the chief complaint of left leg pain. On the differential diagnose includes but not limited to worsening peripheral arterial disease, electrolyte abnormality. Once workup is obtained and Reviewed he will be reevaluated. Persistent patient's CBC reviewed and showed a white blood cell count of 4.2, he was 12.4, plate count was only 164. Patient sodium 142, potassium normal 3.7, creatinine elevated 1.28 he has underlying chronic kidney disease according to previous blood draws proBNP normal at 342. Patient's EKG showed sinus rhythm with a rate of 59 bpm. Patient's chest x-ray reviewed by myself by radiology showed no acute cardiopulmonary processes. Patient CTA abdomen/pelvis with runoff showed severe narrowing of the bilateral common femoral arteries which is unchanged. Remainder runoff arteries to the lower extremities are patent. Perinephric fat stranding correlation with urinalysis recommended otherwise no acute findings. Diffuse interstitial pulmonary densities may represent CHF clinically correlate. Patient ambulated here in the emergency department and became hypoxic to 87%. He will be given a milligram of IV Bumex. Will discuss case with hospitalist for admission. Discussed case with hospitalist Dr. Ocampo who accept patient for admission. Patient is agreeable as well as family numbers. All question concerns answered. Lab Data Labs: Laboratory Results - last 24 hr 03/20/25 03/20/25 13:45 13:52 WBC 4.2 L RBC 3.59 L Hgb 12.4 L Hct 38.0 L MCV 105.8 H MCH 34.5 H MCHC 32.6 RDW Std Deviation 53.7 H RDW Coeff of Gem 13.6 Plt Count 164 MPV 9.5 Immature Gran % (Auto) 0.200 Neut % (Auto) 44.7 L Lymph % (Auto) 39.0 [place] % (Auto) 11.8 H Eos % (Auto) 3.6 Baso % (Auto) 0.7 Absolute Neuts (auto) 1.9 L Absolute Lymphs (auto) 1.62 Nucleated RBC % 0 Sodium 142 Potassium 3.7 Chloride 107 Carbon Dioxide 24.1 Anion Gap 11 BUN 27 H Creatinine 1.28 H Estim Creat Clear Calc 51.69 Est GFR (MDRD) Non-Af 57 L BUN/Creatinine Ratio 20.9 H Glucose 147 H Calcium 9.4 NT pro BNP II 342 Radiography Diagnostic Testing: Clinical Impression(s) from Imaging Studies Abdomen/Pelvis CTA 03/20/25 13:15 IMPRESSION: Severe narrowing of the bilateral common femoral arteries mild atherosclerotic calcifications. The remainder runoff arteries to the lower extremities are patent. Perinephric fat stranding. Correlation with the urinalysis is recommended. Otherwise, no abdominopelvic abnormalities. Diffuse interstitial pulmonary densities may represent CHF. Correlate clinically. Reading Location: [facility] Chest X-Ray 03/20/25 14:35 IMPRESSION: Cardiomegaly. The lungs are clear. Reading Location: [facility] Discharge Plan Dx/Rx/DC Orders Clinical Impression: Acute hypoxemic respiratory failure, CHF (congestive heart failure), Localized swelling of both lower legs, Essential hypertension, Diabetes mellitus type II, controlled, PAD (peripheral artery disease) Disposition Disposition: Acute Care Hospital [facility]
[2025-03-20 13:57] LABS: Hematocrit 38.0 % (40-54); Hemoglobin 12.4 g/dL (13.0-16.5); Immature Granulocytes Count 0.010 X10^3/uL (0.0-0.0); Mean Corp Hgb Conc 32.6 g/dL (32-36); Mean Corpuscular Volume 105.8 fL (80-94); Mean Platelet Vol. 9.5 fl (6.2-12.0); NRBC Flagged by Analyzer 0 % (0-5); Platelet Count 164 K/mm3 (150-450); RBC Distribution Width CV 13.6 % (11.6-14.6); RBC Distribution Width SD 53.7 fl (35.1-43.9); Red Blood Count 3.59 M/mm3 (4.6-6.2); White Blood Count 4.2 K/mm3 (4.4-11.0)
[2025-03-20] MEDS: HYDROcodone Bitartrate/Apap 5/325 Tablet PO (14:11)
[2025-03-20 14:20] LABS: Anion Gap 11 (5-15); BUN 27 mg/dL (4-19); BUN/Creat Ratio 20.9 RATIO (10-20); Calcium,Total 9.4 mg/dL (7.6-11.0); Carbon Dioxide 24.1 mmol/L (21.0-32.0); Chloride 107 mmol/L (98-108); Estimated Creatinine Clearance 51.69 ml/min (50-250); Glucose 147 mg/dL (70-99); Potassium 3.7 mmol/L (3.3-5.1); Pro- Brain NATRIURETIC PEPTIDE 342 pg/mL (<=1800)
--- NOTE | 2025-03-20 14:35 | RAD_ITS ---
PROCEDURE: CHEST 1 VIEW (PORTABLE) 03/20/2025 REASON FOR EXAM: SOB TECHNIQUE: Frontal view of the chest. COMPARISON: November 21, 2024. FINDINGS: Hardware: EKG electrodes are seen. Heart: Moderate degree of cardiomegaly. Lungs: The lungs are clear. Bones: Degenerative changes are identified within the thoracic spine. RAD/Chest 1 View (Portable) IMPRESSION: Cardiomegaly. The lungs are clear. Reading Location: [id number]
--- NOTE | 2025-03-20 17:30 | PCM.HP.STD ---
HPI - General General Date of Admission: 03/20/25 Date of Service: 03/20/25 Chief Complaint: Leg swelling with discomfort and shortness of breath on exertion HPI Narrative ESTELLA CANO, is a 80 M who presented to [place] ED on 03/20/2025 with leg swelling with discomfort and shortness of breath on exertion. Medical history significant for CAD with stenting, PAD, class II obesity with KARLA, hypertension, hyperlipidemia and type 2 diabetes mellitus. He follows with cardiology and vascular surgery here and has also recently established with cardiology in [place]. He sees vascular surgery for bilateral lower extremity critical arterial insufficiency with nocturnal rest pain and bilateral buttock claudication. On CTA imaging in October he had bilateral common iliac densely calcified plaque, left with 90% stenosis in right appears occluded. Plan was for bilateral femoral endarterectomy with fem-fem bypass with possible left iliac intravascular lithotripsy with stent placement. However, vascular recommended cardiology optimization first. He had a diagnostic left heart cath done on 11/27 with 60% distal LMCA lesion, 70% ostial and mid LAD lesions, 95% ostial left circumflex lesion and 70% distal RCA lesions. Was initially thought he would need bypass surgery, but after seeing cardiology in [place] they noted that complex PCI should be sufficient. However, this has apparently been delayed due to scheduling issues. Patient and family note that they are hoping it will be scheduled in the next few weeks. Patient presented today with worsening lower extremity swelling with pain for the past several days. He has also had some shortness of breath with exertion over the past few days. The trailer driver in [place] notably did put him on daily Lasix starting about 2 weeks ago, and he noticed some improvement in his leg swelling with this. However, he had a repeat BMP drawn a week ago and it was noted that his creatinine was starting to rise so the Lasix was discontinued. In the ED today he was mildly hypertensive to the 140s systolic and was hypoxic to the mid 80s on room air at rest. He was otherwise in normal sinus rhythm and afebrile. Does not wear home oxygen. CBC was benign. BMP with creatinine 1.28 (at baseline), otherwise unremarkable. Chest x-ray showed cardiomegaly with only mild vascular congestion. However, CT abdomen pelvis with runoff showed severe narrowing of the bilateral common femoral arteries, stable from previous; also showed moderate cardiomegaly with diffuse interstitial pulmonary densities concerning for CHF. BNP 342, slightly up from previous. Given concern for CHF exacerbation with hypoxia, he was given a dose of IV Bumex and hospitalist was contacted for admission. I saw the patient at bedside in the ED, several family was present. Patient was sitting up comfortably in bed, conversing normally, in no acute distress. He was breathing comfortably on 2 L nasal cannula at rest. Has urinated multiple times since the IV Bumex dose was given. Denies any leg pain currently. No other acute concerns currently. Will be admitted for further management. [facility] Medical History Peripheral artery disease Multi-vessel coronary artery stenosis Ambulates with cane History of pain when walking History of heart attack Wears hearing aid Wears glasses Wears dentures Diabetes Prostate disease High cholesterol Back pain Dietary restriction Former smoker Shortness of breath on exertion Leg cramps History of edema History of stress test History of echocardiogram Cardiology follow-up encounter History of rheumatic fever Essential hypertension Arthritis CPAP (continuous positive airway pressure) dependence Acute and chronic respiratory failure with hypoxia Hyperlipidemia Nonrheumatic mitral (valve) prolapse History of anterior wall myocardial infarction Stented coronary artery (~08/01/97) Atherosclerotic heart disease of [place] coronary artery without angina pectoris Home Medications ?Medication ?Instructions ?Recorded ?Last Taken ?Type nitroglycerin 0.4 mg sublingual 0.4 mg sublingual Q5-15M PRN chest 11/04/18 Unknown Rx tablet pain #25 tabs baclofen 20 mg tablet 20 mg PO QHS Check with primary 01/30/21 Unknown History doctor tamsulosin 0.4 mg capsule 0.4 mg PO QHS Check with primary 01/30/21 Unknown History doctor gabapentin 100 mg capsule 100 mg PO QHS LEG CRAMPS 07/21/21 Unknown History pioglitazone 45 mg tablet 45 mg PO DAILY DIABETES 07/21/21 Unknown History glimepiride 4 mg tablet 4 mg PO BID DIABETES 01/11/22 Unknown History losartan 50 mg-hydrochlorothiazide 1 tab PO DAILY BP #90 tabs 01/03/24 Unknown Rx 12.5 mg tablet simvastatin 80 mg tablet 80 mg PO QHS CHOLESTEROL #90 01/03/24 Unknown Rx TABLETS aspirin 81 mg chewable tablet 162 mg (2 x 81 mg) PO QDAY PVD #60 07/10/24 11/27/24 Rx (Manan Chewable Low Dose Aspirin) tabs berberine chloride 500 mg capsule 1,000 mg PO BID SUPPLEMENT 08/29/24 Unknown History cilostazol 50 mg tablet 50 mg PO BID PVD #60 tabs 08/29/24 Unknown Rx clopidogrel 75 mg tablet (Plavix) 75 mg PO DAILY PVD #180 tabs 10/09/24 11/27/24 Rx atenolol 25 mg tablet 25 mg PO DAILY BP #90 tabs 10/15/24 Unknown Rx CIRULATION CALCIUM 1 tab PO DAILY SUPPLEMENT 11/06/24 Unknown History CURALIAN 2 cap PO BID SUPPLEMENT 11/06/24 Unknown History DYSODIUM 1 tab PO DAILY SUPPLEMENT 11/06/24 Unknown History PRO-CURSE 1 tab PO DAILY SUPPLEMENT 11/06/24 Unknown History SUPER HEALTH PROSTATE 1 tab PO DAILY SUPPLEMENT 11/06/24 Unknown History cholecalciferol (vitamin D3) 50 50 mcg PO DAILY SUPPLEMENT 11/06/24 Unknown History mcg (2,000 unit) capsule (Vitamin D3) mecobalamin (vitamin B12) 1,000 1,000 mcg PO DAILY SUPPLEMENT 11/06/24 Unknown History mcg chewable tablet Allergy/AdvReac Type Severity Reaction Status Date / Time rosuvastatin (From Crestor) Allergy Intermediate Rash Verified 03/20/25 13:49 Family History Father , age 81 CAD (coronary artery disease) History of angioplasty, stent, CABG and valvular heart disease Mother , age 42 Heart disease Brother No problems noted. Sister , age 57 of renal cancer Renal cancer Surgical History History of lumbar fusion History of cardiac catheterization Hx of total knee arthroplasty Hx of fusion of cervical spine Presence of coronary angioplasty implant and graft (~08/01/97) Social History household members: spouse Smoking Status: Former smoker alcohol intake: current alcohol intake frequency: other substance use type: does not use ROS Constitutional Constitutional: Denies chills, fatigue, fever(s) or weakness Eyes Eyes: Denies change in vision Cardiovascular Cardiovascular: Reports dyspnea on exertion and edema; Denies chest pain, lightheadedness, orthopnea or palpitations Respiratory/Chest Respiratory/Chest: Denies cough, productive cough, shortness of breath at rest or wheezing Gastrointestinal Gastrointestinal: Denies abdominal pain, constipation, diarrhea, nausea or vomiting Genitourinary Genitourinary: Denies dysuria Musculoskeletal Musculoskeletal: Reports other Details: Bilateral leg pain with swelling ; Denies arthralgias or myalgias Neurologic Neurologic: Denies dizziness, focal weakness, headache(s), numbness or tingling Vital Signs Vital Signs Vital Signs: 03/20/25 11:59 03/20/25 13:59 03/20/25 14:14 Temperature 98 F Temperature Source Temporal Pulse Rate 73 57 L Respiratory Rate 14 13 Blood Pressure 150/70 H 145/58 H Blood Pressure Mean 96 87 Pulse Ox 99 94 Oxygen Delivery Method Room Air Room Air Room Air 03/20/25 15:00 03/20/25 17:00 Temperature Temperature Source Pulse Rate 67 66 Respiratory Rate 19 H 20 H Blood Pressure 136/52 H 136/50 H Blood Pressure Mean 80 78 Pulse Ox 93 90 Oxygen Delivery Method Room Air Weight Weight: 109.7 kg Body Mass Index (BMI) 41.5 Physical Exam Const alert, oriented x3 and no apparent distress Constitutional Narrative: Elderly male, class II obesity, mildly fatigued appearing but otherwise sitting back comfortably in bed, conversing normally, in no acute distress. General Appearance: cooperative and comfortable HEENT normocephalic, head/scalp atraumatic, hearing grossly normal bilaterally, nasal mucous membranes and turbinates normal and moist oral mucous membranes Eyes PERRL, EOMs intact bilaterally and conjunctivae normal Neck full ROM Chest inspection of chest normal Resp normal respiratory effort, normal air movement, no use of accessory muscles and clear to auscultation bilaterally Cardio regular rate, regular rhythm, no murmurs and peripheral pulses 2+ throughout GI normal to inspection, nondistended, normoactive bowel sounds, soft to palpation, non-tender and non-distended Back/Spine normal ROM Extremity Extremity Narrative: +2-3 lower extremity pitting edema up to the knees. Skin no rashes or lesions noted Psych mental status grossly normal Results Lab / Micro Data 03/20/25 13:52 03/20/25 13:45 Labs: Laboratory Results - last 24 hr 03/20/25 13:45: Sodium 142, Potassium 3.7, Chloride 107, Carbon Dioxide 24.1, Anion Gap 11, BUN 27 H, Creatinine 1.28 H, Estim Creat Clear Calc 51.69, Est GFR (MDRD) Non-Af 57 L, BUN/Creatinine Ratio 20.9 H, Glucose 147 H, Calcium 9.4, NT pro BNP II 342 03/20/25 13:52: WBC 4.2 L, RBC 3.59 L, Hgb 12.4 L, Hct 38.0 L, MCV 105.8 H, MCH 34.5 H, MCHC 32.6, RDW Std Deviation 53.7 H, RDW Coeff of Gem 13.6, Plt Count 164, MPV 9.5, Immature Gran % (Auto) 0.200, Neut % (Auto) 44.7 L, Lymph % (Auto) 39.0, [place] % (Auto) 11.8 H, Eos % (Auto) 3.6, Baso % (Auto) 0.7, Absolute Neuts (auto) 1.9 L, Absolute Lymphs (auto) 1.62, Nucleated RBC % 0 Imaging Radiology Impression Abdomen/Pelvis CTA 03/20/25 13:15 IMPRESSION: Severe narrowing of the bilateral common femoral arteries mild atherosclerotic calcifications. The remainder runoff arteries to the lower extremities are patent. Perinephric fat stranding. Correlation with the urinalysis is recommended. Otherwise, no abdominopelvic abnormalities. Diffuse interstitial pulmonary densities may represent CHF. Correlate clinically. Reading Location: [facility] Chest X-Ray 03/20/25 14:35 IMPRESSION: Cardiomegaly. The lungs are clear. Reading Location: [id number] Assessment & Plan Assessment/Plan (1) Acute on chronic heart failure with preserved ejection fraction (HFpEF): (2) Hypoxia: PLAN: Plan Patient is an 80-year-old male who presented to [place] ED on 03/20/2025 with lower extremity swelling with discomfort and shortness of breath with exertion. 1. Acute on chronic HFpEF with hypoxia ? Admit under inpatient status to PCU. Not on home oxygen, was satting in the mid 80s on room air at rest in the ED, improved to the low 90s on 2 L nasal cannula. Chest x-ray with cardiomegaly with mild vascular congestion; however CTA and pelvis with runoff showed diffuse vascular congestion and lung bases consistent with CHF. BNP only 342, is underestimated with obesity. Recent echo on 01/15 with EF 55%, stage I diastolic dysfunction, moderate concentric LV hypertrophy, no other concerning findings. EKG with no ischemic changes and no chest pain noted, low concern for ischemic etiology in setting of multivessel CAD as below. Will treat with IV Lasix 40 mg twice daily for now, follow-up daily BMP and urine output. Suspect patient will only need 1 to 2 days of IV diuresis to improve back to baseline. Will need oxygen qualification testing prior to discharge. 2. Multivessel CAD with remote history of stenting, severe bilateral PAD with claudication, hypertension, hyperlipidemia ? See HPI for further details. In short, has severe bilateral common iliac stenosis with critical arterial insufficiency leading to nocturnal rest pain and bilateral buttock claudication. Plan is for eventual bilateral femoral endarterectomy with fem-fem bypass with possible left iliac intravascular lithotripsy with stent placement. However, he needed preoperative cardiac evaluation and was found on diagnostic cath to have severe multivessel disease. Plan is for complex PCI in [place] that has been delayed due to scheduling issues; per family, hoping for this to happen in March. Normotensive and stable at rest on admit. Continue home aspirin, Plavix, atenolol, and simvastatin. Will hold home losartan?hydrochlorothiazide for now to maximize fluid removal on IV Lasix as above without causing significant RAUDEL. Continue home cilostazol, gabapentin at night and baclofen at night as well. 3. CKD stage IIIa ? Creatinine 1.28 on admit, stable at baseline. Monitoring daily BMP and urine output while on IV diuresis as above. 4. Type 2 diabetes mellitus ? Glucose 147 on admit. Most recent A1c 7.1% in October. Will treat/scale insulin with meals while inpatient, adjust as needed. Hold home pioglitazone and glimepiride. 5. Class II obesity with KARLA ? BMI 37 on admit. Complicates hospital course and care. Continue home PAP therapy at night. 6. BPH with obstructive symptoms ? Stable. Continue home Flomax. DVT prophylaxis: Lovenox CODE STATUS: Full code, verified Expected disposition: Home, 2 to 3 days Total clinical time spent by myself addressing the patient's medical issues, reviewing all the data, and collaborating with patient's care team: 83 minutes. Charges/Coding Visit Charges Inpatient E&M: 38836 Init Hosp L3
--- OUTSIDE RECORDS SUMMARY | 2025-03-20 17:53 | XMS RPT_ITS | CCD ---
Author Organization [facility] Inform ion Partnership [facility] Care Team Providers Care Applied Statistician Name Role Phone Padma Baker Unavailable Unavailable Roof JOSH, Trey Alvarado Unavailable Padma Baker Unavailable Unavailable Padma Baker Unavailable Unavailable Padma Baker Unavailable Unavailable César Merrill MD Primary Care Provider [phone] Dr. César Merrill Primary Care Provider Dr. César Merrill Referring Provider [phone] Dr. Evan Michael Attending Provider [phone] Dr. César Merrill Primary Care Provider Dr. César Merrill Referring Provider [phone] CONRADO Loera NP Attending Provider Dr. Evan Michael Attending Provider [phone] César Merrill MD Primary Care Provider [phone] César Merrill MD Primary Care Provider [phone] Dr. César Merrill Primary Care Provider Dr. César Merrill Referring Provider [phone] CONRADO Loera NP Attending Provider César Merrill MD Primary Care Provider César Merrill MD Primary Care Provider Dr. César Merrill Primary Care Provider Dr. César Merrill Referring Provider [phone] Jaskaran MITCHELLSTEPHEN Attending Provider Dilshad, Dr. Lindsey Admit Provider Dr. César Tijerina Referring Provider Dilshad, Dr. Lindsey Other Provider Sukhdev, Dr. Bowens Attending Provider Dr. Gogo Santizo Other Provider Dr. Lenore Robledo Attending Provider Dr. Lenore Robledo Other Provider [facility] ENVIRONMENTAL SCIENCE INSTRUCTOR.VEHICLE TRIMMER, Fartun Unavailable Katarzyna Munson PA-C Unavailable César Merrill MD Primary Care Provider César Merrill MD Primary Care Provider Dr. César Merrill MD Primary Care Provider [phone] Dr. César Merrill MD Referring Provider Dr. London Tobar MD Attending Provider Sloane Villela Attending Provider [phone] Sloane Villela Referring Provider [phone] Lenny Taylor MD Attending Provider [phone] [facility] ENVIRONMENTAL SCIENCE INSTRUCTOR.VEHICLE TRIMMER, Fartun Unavailable Katarzyna Munson PA-C Unavailable Manas MORENO-Trey Lisa Attending Provider Dr. César Merrill MD Primary Care Provider Dr. César Merrill MD Referring Provider Manas PROGRAM ADVISORTrey Leroy Referring Provider Trey Lane Other Provider Dr. Debbie Remy MD Attending Provider Dr. John Nieto MD Attending Provider Dr. Debbie Remy MD Referring Provider Desirae MD, César A Primary Care Provider Desirae BAIN, Dr. Lindsey Primary Care Physician Sloane Villela Attending Physician Desirae BAIN, Dr. Lindsey Referring Provider Claudia BAIN, Dr. Galvez Attending Physician Roof PROGRAM ADVISOR-C, Trey H Attending Physician Roof PROGRAM ADVISOR-C, Trey H Nurse Practitioner Federico BAIN, Dr. Lewis Attending Physician Gerson BAIN, Dr. Lopez Attending Physician PAYTON BRIZUELA Attending Physician PAYTON BRIZUELA Referring Provider Guerda BAIN, Dr. Estrada Attending Physician Desirae, César Referring Unavailable Claudia, Lenny Attending Unavailable Desirae, César Primary Care Unavailable Desirae, César Referring Unavailable Roof PROGRAM ADVISOR, Trey H Attending Unavailable Desirae, César Primary Care Unavailable Desirae, César Referring Unavailable Desirae, César Primary Care Unavailable London Tobar Attending Unavailable John Nieto Attending Unavailable Desirae, César Referring Unavailable Desirae, César Primary Care Unavailable Desirae, César Referring Unavailable Desirae, César Primary Care Unavailable Rush, Sloane Attending Unavailable Federico, Debbie Attending Unavailable Roof PROGRAM ADVISOR, Trey H Referring Unavailable Roof PROGRAM ADVISOR, Trey H Consulting Unavailable Desirae, César Primary Care Unavailable Desirae, César Primary Care Unavailable Payton Brizuela Referring Unavailable Oden, Lenny Attending Unavailable Roof PROGRAM ADVISOR, Trey H Referring Unavailable Roof PROGRAM ADVISOR, Trey H Attending Unavailable Desirae, César Primary Care Unavailable Oden, Lenny Referring Unavailable Desirae, César Primary Care Unavailable Claudia, Lenny Attending Unavailable Claudia, Lenny Admitting Unavailable Desirae, César Primary Care Unavailable Victor Manuel Sloane Referring Unavailable Rush, Sloane Attending Unavailable Roof PROGRAM ADVISOR, Trey H Referring Unavailable Roof PROGRAM ADVISOR, Trey H Attending Unavailable Desirae, César Primary Care Unavailable Federico, Debbie Referring Unavailable Federico, Debbie Attending Unavailable Roof PROGRAM ADVISOR, Trey H Consulting Unavailable Desirae, César Primary Care Unavailable Desirae, César Primary Care Unavailable Payton Brizuela Referring Unavailable Payton Brizuela Attending Unavailable SOFIE BALBUENA Attending Unavailable Desirae, César Primary Care Unavailable SOFIE BALBUENA Referring Unavailable Desirae, César Primary Care Unavailable Payton Brizuela Referring Unavailable Lenny Taylor Attending Unavailable Desirae, César Primary Care Unavailable Sean Croft Attending Unavailable CÉSAR MERRILL Attending Unavailable BELLA MERRILLREY A Primary Care Unavailable CÉSAR MERRILL A Referring Unavailable DESIRAE, CÉSAR A Primary Care Unavailable DESIRAE, CÉSAR A Primary Care Unavailable DESIRAE, CÉSAR A Referring Unavailable DESIRAE, CÉSAR A Attending Unavailable DESIRAE, CÉSAR A Primary Care Unavailable DESIRAE, CÉSAR A Referring Unavailable DESIRAE, CÉSAR A Primary Care Unavailable DESIRAE, CÉSAR A Referring Unavailable DESIRAE, CÉSAR A Primary Care Unavailable DEBBIE REMY Referring Unavailable APYTON BRIZUELA Attending Unavailable DESIRAE, CÉSAR Primary Care Unavailable PAYTON BRIZUELA Attending Unavailable DESIRAE, CÉSAR Primary Care Unavailable ZUNILDA BARRIENTOS Attending Unavailable DESIRAE, CÉSAR Primary Care Unavailable César Merrill MD Primary Care Provider Allergies Allergy Classification Reported Allergen(s) Allergy Type Date of Onset Reaction(s) Facility (5 sources) rosuvastatin drug allergy 1 Rash [facility] Work Phone: (20 sources) metFORMIN; Translations: [METFORMIN] Drug Allergy 6 Diarrhea [facility] Work Phone: (20 sources) rosuvastatin; Translations: [ROSUVASTATIN CALCIUM] Drug Allergy 7 Other: See Comments [facility] Work Phone: (20 sources) valsartan; Translations: [VALSARTAN] Drug Allergy 5 Cough [facility] (20 sources) Zinc; Translations: [ZINC] Drug Allergy 5 Intolerance [facility] Work Phone: (16 sources) rosuvastatin Drug Allergy 7 Rash [facility] (1 source) rosuvastatin Drug Allergy 5 [facility] Repository (2 sources) Valsartan Propensity to adverse reactions 5 [facility] Medications Current Medications Medication Drug Class(es) Dates Sig (Normalized) Sig (Original) Antiarthritic Combination No.2 (Glucosamine-Chondro itin) 900 mg tablet (12 sources) Start: 08-18-2017 take 1 tablet by [...] take 2 tablets by mouth once daily Start: 08-18-2017 End: 04-12-2023 Aspirin (Adult Aspirin Regim en) 81 mg tablet,delayed release (DR/EC) Discontinued 162 mg PO daily August 18, 2017 12:00am April 12, 2023 9:10am Check with primary doctor Start: 08-26-2010 take 1 tablet by lobito th once daily ADULT ASPIRIN EC LOW STRENGTH 81 MG TBEC One tablet by mouth daily ASPIRIN [id number] Mirna Weeks Start: 08-26-2010 take 1 tablet by lobito th once daily ADULT ASPIRIN EC LOW STRENGTH 81 MG TBEC One tablet by mouth daily ASPIRIN [id number] Mirna Weeks Start: 08-26-2010 take 2 tablets by mo uth once daily ASPIRIN 81 MG TABS Two tablets by mouth daily ASPIRIN [id number] Madie Kearney Start: 11-01-2006 take 1 tablet by lobito th in the morning Aspirin 81 mg ORAL Tab Take 81 mg by mouth. Take (2) tablets in the morning 0 11/01/2006 Active Start: 11-01-2006 take 2 tablets by mo neh once daily Aspirin 81 mg ORAL Tab 2 tablets daily 0 11/01/2006 Active Comment on above: 2 tablets daily Take 81 mg by mouth. Take (2) tablets in the morning atorvastatin 40 mg oral tablet (8 sources) HMG-CoA Reductase Inhibitor Start: End: 5 take 1 tablet by mouth once daily atorvastatin (LIPITOR) 40 mg tablet Take 1 tablet by mouth once daily. 30 tablet 2 10/14/2024 Active baclofen 20 mg oral tablet (20 sources) gamma-Aminobutyric Acid-ergic Agonist Start: End: take 1 tablet by mouth at bedtime Comment on above: Take 1 tablet by lobito th daily at bedtime. Berberine Chloride 500 mg capsule (8 sources) Start: take 2 capsules by mouth twice daily Start: 08-29-2024 take 2 capsules by m [facility] twice daily Berberine Chloride 500 mg capsule Active 1000 mg PO TWICE A DAY August 29, 2024 12:00am SUPPLEMENT Start: 08-29-2024 Berberine Chlo ride 500 mg capsule Active mg PO August 29, 2024 12:00am Berberine Chloride 500 MG capsule (4 sources) Berberine Chlori de 500 MG capsule Take by mouth. Active cholecalciferol 0.05 mg oral capsule (20 sources) Vitamin D Start: 11-06-2024 take 1 capsule by mouth once daily Start: 01-11-2022 End: 07-10-2024 take 1 tablet by mouth twice daily [...] TABS One tablet by mouth daily CHOLECALCIFEROL [id number] Terry Barba MD take 50 ug by mouth once daily Cholecalciferol (D3 PO) Take 50 mcg by mouth daily. Active cilostazol 50 mg oral tablet (12 sources) Phosphodiesterase 3 Inhibitor Start: 08-29-2024 take 1 tablet by mouth twice daily CIRULATION CALCIUM (5 sources) Start: 11-06-2024 Start: 11-06-2024 CIRULATION TAY CIUM Active 1 {tbl} PO DAILY November 06, 2024 12:00am SUPPLEMENT clopidogrel 75 mg oral tablet (11 sources) P2Y12 Platelet Inhibitor Start: 10-09-2024 take 1 tablet by mouth once daily CURALIAN (5 sources) Start: 11-06-2024 Start: 11-06-2024 CURALIAN Activ e 2 NMA PO TWICE A DAY November 06, 2024 12:00am SUPPLEMENT dapagliflozin 5 mg oral tablet (8 sources) Sodium-Glucose Cotransporter 2 Inhibitor Start: 07-30-2024 take 1 tablet by mouth once daily at breakfast dapagliflozin propanediol (FARXIGA) 5 mg tablet Take 1 tablet by mouth daily with breakfast. 30 tablet 2 07/30/2024 Active doxycycline hyclate 100 mg oral tablet (1 source) Tetracycline-class Drug Start: 06-10-2024 End: 06-17-2024 take 1 tablet by mouth twice daily doxycycline (VIBRA-TABS) 100 mg tablet Indications: URI, acute Take 1 tablet by mouth two times a day for 7 days. 14 tablet 06/10/2024 06/17/2024 Active DYSODIUM (5 sources) Start: 11-06-2024 Start: 11-06-2024 DYSODIUM Activ e 1 {tbl} PO DAILY November 06, 2024 12:00am SUPPLEMENT furosemide 40 mg oral tablet (2 sources) Loop Diuretic Start: 03-05-2025 End: 03-05-2026 take 1 tablet by mouth once daily furosemide (Lasix) 40 MG tablet Indications: Shortness of breath Take 1 tablet (40 mg) by mouth daily. 30 tablet 03/05/2025 03/05/2026 Active gabapentin 100 mg oral capsule (20 sources) Anti-epileptic Agent Start: 05-12-2021 End: 01-20-2025 take 1 capsule by mouth at bedtime Comment on above: Take 1 capsule by mo [facility] daily at bedtime for 180 days. For leg cramps mecobalamin 1 mg chewable tablet (5 sources) Start: 11-06-2024 take 1 tablet by mouth once daily MEDICATION, NON-DATABASE (9 sources) take 2 capsules by mouth twice daily MEDICATION, NON-DATABASE Take 2 capsules by mouth two times a day. CURALIN BLOOD SUGAR SUPPORT Active Multivitamin preparation (4 sources) Start: 08-18-2017 take 1 tablet by [...] 18, 2017 12:00am January 11, 2022 10:10am NON FORMULARY (10 sources) NON FORMULARY AVILEZ PER HEALTH Active NON FORMULARY TX O-CURSE Active NON FORMULARY DY SODIUM Active NON FORMULARY CU RALIN SUPPLEMENT FOR BLOOD SUGAR Active NON FORMULARY CI RULATION CALC Active pioglitazone 45 mg oral tablet (20 sources) Peroxisome Proliferator Receptor alpha Agonist, Peroxisome Proliferator Receptor gamma Agonist, Thiazolidinedione Start: 05-20-2021 End: 03-09-2025 take 1 tablet by mouth once daily Start: 11-09-2020 End: 05-20-2021 take 1 tablet by mouth once daily pioglitazone (ACTOS) 30 mg tablet Take 1 tablet by mouth once daily. 30 tablet 11/09/2020 05/20/2021 Discontinued Comment on above: [facility] PRO-CURSE (5 sources) Start: 11-06-2024 Start: 11-06-2024 PRO-CURSE Acti ve 1 {tbl} PO DAILY November 06, 2024 12:00am SUPPLEMENT saw/vit E/sod indu/lyc/beta/pyg (PROSTATE HEALTH ORAL) (9 sources) take 1 capsule by mouth twice daily saw/vit E/sod indu/lyc/beta/pyg (PROSTATE HEALTH ORAL) Take 1 capsule by mouth two times a day. Active [employer] PROSTATE (5 sources) Start: 11-06-2024 Start: 11-06-2024 SUPER HEALTH P ROSTATE Active 1 {tbl} PO DAILY November 06, 2024 12:00am SUPPLEMENT tamsulosin hydrochloride 0.4 mg oral capsule (20 sources) alpha-Adrenergic Lizandro Start: 10-27-2020 End: 03-09-2025 take 1 capsule by mouth at bedtime Comment on above: Take 1 capsule by mo ut daily at bedtime. Bringing good RX coupon. terbinafine 250 mg oral tablet (9 sources) Allylamine Antifungal Start: 05-13-2024 take 1 tablet by mouth once terbinafine HCl (LAMISIL) 250 mg tablet Take 1 tablet by mouth every afternoon. 05/13/2024 Active vitamin b12 1 mg extended release oral tablet (20 sources) Vitamin B12 Start: 07-25-2024 take 1 tablet by mouth once daily [...] TABS One tablet by mouth daily CYANOCOBALAMIN [id number] Terry Barba MD take 1 tablet by lobito th once daily cyanocobalamin (Vitamin B-12) 1000 MCG tablet Take 1,000 mcg by mouth daily. Active Comment on above: Take 1 tablet by lobito th once daily. Completed/Discontinued Medications Medication Drug Class(es) Dates Sig (Normalized) Sig (Original) acetaminophen 325 mg / HYDROcodone bitartrate 5 mg oral tablet (11 sources) Opioid Agonist Start: 04-12-2023 End: 09-13-2023 Hydrocodone-Acetami nophen 5-325 mg tablet Discontinued 1 {tbl} PO EVERY 6 HOURS 28 7 April 12, 2023 September 13, 2023 10:21am Spinal stenosis of lumbar region Spinal stenosis, lumbar region without neurogenic claudication Start: 04-12-2023 take 1 tablet by lobito th every six hours Hydrocodone-Acetaminophen Active 1 TABLE T PO EVERY 6 HOURS 28 April 12, 2023 Comment on above: Take 1 tablet by lobito th every 6 hours. for 7 days atenolol 25 mg oral tablet (20 sources) beta-Adrenergic Lizandro Start: 02-11-2018 End: 10-15-2024 take 1 tablet by mouth once daily Atenolol 25 mg tablet Discontinued 25 mg PO DAILY 90 4 September 26, 2023 3:57pm October 15, 2024 4:54pm Start: 08-18-2017 End: 02-11-2018 take 1 tablet by mouth once daily Atenolol 50 mg tablet Discontinued 50 mg PO daily August 18, 2017 12:00am February 11, 2018 2:52pm Start: 08-26-2010 take 1 tablet by lobito th once daily ATENOLOL 50 MG TABS One tablet by mouth daily ATENOLOL [id number] Terry Barba MD Comment on above: Take 1 tablet by lobito th once daily. Per [facility] azithromycin 250 mg oral tablet (1 source) Macrolide Antimicrobial Start: 02-12-20 End: 02-17-20 azithromycin (ZITHROMAX Z-MARKUS) 250 mg tablet Indications: Pneumonia due to COVID-19 virus Take 2 tablets day one, then, 1 tablet daily until gone. 6 tablet 02/11/2021 02/16/2021 chondroitin sulfates 400 mg / glucosamine hydrochloride 500 mg oral capsule (11 sources) Start: 12-12-19 End: 11-16-19 take 1 capsule by mouth twice daily Glucosamine-Chondroi t-Vit C-Mn (GLUCOSAMINE CHONDROITIN MAXSTR) 500-400 mg cap Take 1 capsule by mouth twice daily. 12/11/2016 11/15/2021 Discontinued (Discontinued by Patient) Start: 08-26-2010 take 1 tablet by lobito th once daily GLUCOSAMINE-CHONDROITIN CAPS One tablet by mouth daily GLUCOSAMINE-CHONDROITIN CAPS [id number] Madie Kearney Start: 08-26-2010 take 1 tablet by lobito th once daily GLUCOSAMINE-CHONDROITIN CAPS One tablet by mouth daily GLUCOSAMINE-CHONDROITIN CAPS [id number] Madie Kearney Start: 08-26-2010 take 1 tablet by lobito th once daily GLUCOSAMINE-CHONDROITIN CAPS One tablet by mouth daily GLUCOSAMINE-CHONDROITIN CAPS [id number] Madie Kearney Comment on above: Take 1 capsule by mo [facility] twice daily. cinnamon bark 500 mg oral [...] tablet (20 sources) Nonsteroidal Anti-inflammatory Drug Start: 1 End: 4 take 1 tablet by mouth twice daily Flurbiprofen 100 mg tablet Discontinued 100 mg PO TWICE A DAY January 11, 2022 12:00am April 12, 2023 9:10am Start: 08-26-2010 take 1 tablet by lobito th twice daily FLURBIPROFEN 100 MG TABS One tablet by mouth twice daily FLURBIPROFEN [id number] Madie Kearney Comment on above: TAKE ONE TABLET BY M OUTH TWICE DAILY FOR ARTHRITIS TAKE ONE TABLET BY M OUTH TWICE DAILY FOR ARTHRITIS, as needed folic acid 1 mg oral tablet (10 sources) Start: 1 End: 2 take 2 tablets by mouth once daily FOLIC ACID 1 MG TABS Two tablets by mouth daily FOLIC ACID [id number] Ray Guajardo MD glimepiride 4 mg oral tablet (20 sources) Sulfonylurea Start: 2 End: 2 take 1 tablet by mouth once daily Glimepiride 4 mg tablet Discontinued 4 mg PO DAILY July 21, 2021 12:00am January 11, 2022 10:13am Start: 05-20-2021 End: 01-20-2025 take 1 tablet by mouth twice daily Start: 10-27-2020 End: 05-12-2021 take 1 tablet by mouth once daily at breakfast glimepiride (AMARYL) 4 mg tablet Take 1 tablet by mouth daily with breakfast. 90 tablet 1 10/27/2020 05/12/2021 Discontinued Start: 01-29-2017 take 1 tablet by lobito th once daily GLIMEPIRIDE 4 MG TABS One tablet by mouth daily GLIMEPIRIDE [id number] Terry Barba MD Comment on above: Take 1 tablet by lobito th twice daily with meals. Take 1 tablet by lobito th two times a day with meals. Ayqzzugetdz-Psgxvtybx-Zvi C-Mn (GLUCOSAMINE CHONDROITIN MAXSTR) 500-400 mg cap (3 sources) Start: 2016 take 1 capsule by mouth twice daily Gjkvmxnusnd-Jauanogyj-Gb t C-Mn (GLUCOSAMINE CHONDROITIN MAXSTR) 500-400 mg cap Take 1 capsule by mouth twice daily. 0 12/11/2016 Active Comment on above: Take 1 capsule by mo [facility] twice daily. hydroCHLOROthiazide 12.5 mg oral [...] mg tablet Discontinued 1 {tbl} PO DAILY 1 July 21, 2021 12:00am July 04, 2022 10:34am Comment on above: Take 1 tablet by [facility] once daily. 200 actuat ipratropium bromide 0.017 mg/actuat metered dose inhaler (9 sources) Anticholinergic Start: 04-14-2023 End: 07-10-2024 Ipratropium [place] (Atrovent Hfa) 17 mcg/actuation HFA aerosol inhaler Discontinued 1 NMA INHALATION EVERY 6 HOURS as needed for shortness of breath or wheezing 12.9 April 14, 2023 1:00am July 10, 2024 [...] One tablet by mouth daily LOSARTAN POTASSIUM [id number] Rayna Jessica PA-C 24 hr metFORMIN hydrochloride [...] tablet by mouth twice daily METFORMIN HCL [id number] Terry Barba MD Comment on above: Take 2 in the mornin g with breakfast and two in the evening. MULTIPLE VITAMIN (2 sources) Start: 08-26-2010 take 1 tablet by mouth once daily MULTIVITAMINS TABS One tablet by mouth daily MULTIPLE VITAMIN [id number] Madie Kearney MULTIPLE VITAMIN (3 sources) Start: 08-26-2010 take 1 tablet by mouth once daily MULTIVITAMINS TABS One tablet by mouth daily MULTIPLE VITAMIN [id number] Madie Kearney Start: 08-26-2010 take 1 tablet by lobito th once daily MULTIVITAMINS TABS One tablet by mouth daily MULTIPLE VITAMIN [id number] Madie Kearney Multivitamin tablet (8 sources) Start: 08-18-2017 End: 01-11-2022 Multivitamin tablet Discontinued 1 {tbl} PO daily August 18, 2017 12:00am January 11, 2022 10:10am Fssmxjbocispe-Clwvlfpl-P utein (CENTRUM SILVER) Tab (9 sources) Start: 10-21-2012 End: 11-15-2021 take 1 tablet by mouth once daily Multivitamins-Minerals- Lutein (CENTRUM SILVER) Tab Take 1 tablet by mouth once daily. 1 tablet 0 10/21/2012 11/15/2021 Discontinued (Discontinued by Patient) Start: 10-21-2012 take 1 tablet by lobito th once daily Curscbbkjxbsi-Zedffxhw-Nqchsk (CENTRUM SILVER) Tab Take 1 tablet by mouth once daily. 1 tablet 0 10/21/2012 Active Comment on above: Take 1 tablet by lobito th once daily. nitroglycerin 0.4 mg sublingual tablet (20 sources) Nitrate Vasodilator Start: 08-27-19 End: 08-08-19 24 Nitroglycerin 0.4 mg tablet, sublingual Discontinued 0.4 mg SL every 5 to 15 minutes as needed for chest pain 22 07April 08, 2018 3:30pm November 04, 2018 2:20pm Comment on above: Dissolve 1 tablet un [place] the tongue as directed. EVERY 5 MIN X3 orphenadrine citrate 100 mg oral tablet (5 sources) Muscle Relaxant Start: 08-27-19 take 1 tablet by mouth at bedtime NORFLEX SOLN 100mg, One tablet by mouth at bedtime. ORPHENADRINE CITRATE SOLN [id number] Madie Kearney predniSONE 10 mg oral tablet (9 sources) Start: 04-14-20 End: 09-13-19 24 Prednisone 10 mg tablet Discontinued 10 mg PO DAILY 30 0 April 14, 2023 1:00am September 13, 2023 10:21am Take 4 tablets x 3 days, 3 tablets x 3 days, 2 tablets x 3 days, 1 tablet x 3 days and then stop simvastatin 80 mg oral tablet (20 sources) HMG-CoA Reductase Inhibitor Start: 08-27-19 11 End: 01-03-20 24 take 1 tablet by mouth at bedtime [...] abdominal pain; Translations: [Generalized abdominal pain] Episodic Chronic kidney disease (4 sources) Chronic kidney disease stage 3A ; Translations: [CKD stage 3a, GFR 45-59 ml/min (CMS/HCC)] Onset: 03-05-2025 03-05-2025 Chronic Conduction disorders (11 sources) First degree atrioventricular block; Translations: [Atrioventricular block, first degree] Onset: 10-29-2024 04-13-2023 Chronic Coronary atherosclerosis and other heart disease (20 sources) Coronary arteriosclerosis; Translations: [Atherosclerotic heart disease of [place] coronary artery without angina pectoris] Onset: 05-02-2007 Resolved: 01-25-2015 01-25-2015 Chronic Comment on above: 08/01/1997 Deficiency and other anemia (1 source) Anemia; Translations: [Anemia, unspecified] 08-09-2023 Episodic Diabetes mellitus with complications (12 sources) Hyperglycemia due to type 2 diabetes [...] urinary tract symptoms] Onset: 12-11-2016 10-27-2020 Chronic Immunizations and screening for infectious disease (2 sources) Vaccination needed; Translations: [Encounter for immunization] Onset: 01-27-2025 02-14-2024 Episodic Osteoarthritis (20 sources) Osteoarthritis; Translations: [Unspecified osteoarthritis, unspecified site] Onset: 06-16-2005 10-27-2020 Chronic Other circulatory disease (15 sources) Peripheral arterial occlusive disease; Translations: [Disorder of arteries and arterioles, unspecified] 09-02-2024 Chronic Comment on above: Arterial study from [facility] 08/21/24:R WILMA 0.25 with monophasic waveformsL WILMA 0.11 with monophasic PT waveform, absent DP waveform Other circulatory disease (1 source) Disorder of arteries and arterioles, unspecified; Translations: [Disorder of arteries and arterioles, unspecified] Onset: 08-29-2024 Chronic Other circulatory disease (4 sources) Iliac artery stenosis; Translations: [Stricture of artery] Onset: 03-05-2025 03-05-2025 Chronic Other circulatory disease (2 sources) Abnormal peripheral pulse; Translations: [Other specified symptoms and signs involving the circulatory and respiratory systems] 07-24-2024 Episodic Other connective tissue disease (20 sources) Cramp in lower limb; Translations: [Sleep related leg cramps] Onset: 02-22-2018 02-22-2018 Chronic Other connective tissue disease (1 source) Sleep related leg cramps; Translations: [Nocturnal leg cramps] Onset: 02-22-2018 Chronic Other lower respiratory disease (11 sources) Dyspnea on exertion; Translations: [Other forms of dyspnea] 01-11-2022 Episodic Other lower respiratory disease (2 sources) Other forms of dyspnea; Translations: [Other respiratory abnormalities] Episodic Other lower respiratory disease (1 source) Hypoxemia; Translations: [Hypoxemia] 04-19-2023 Episodic Other lower respiratory disease (9 sources) Hypoxia; Translations: [Hypoxemia] 04-13-2023 Episodic Other lower respiratory disease (2 sources) Cyanosis; Translations: [Cyanosis] 07-24-2024 Episodic Other lower respiratory disease (2 sources) Shortness of breath; Translations: [Shortness of breath] Onset: 03-05-2025 Episodic Other lower respiratory disease (4 sources) Dyspnea; Translations: [Shortness of breath] Onset: 03-05-2025 03-05-2025 Episodic Other nutritional; endocrine; and metabolic disorders (5 sources) Body mass index (BMI) 36.0-36.9, adult; Translations: [Body mass index (BMI) 36.0-36.9, adult] Onset: 01-14-2013 01-14-2013 Chronic Other nutritional; endocrine; and metabolic disorders (1 source) Hypercalcemia; Translations: [Hypercalcemia] Chronic Other screening for suspected conditions (not mental disorders or infectious disease) (20 sources) Patient encounter status; Translations: [Encounter for screening for malignant neoplasm of colon] Onset: 12-11-2016 12-11-2016 Episodic Other upper respiratory infections (1 source) Acute upper respiratory infection; Translations: [Acute upper respiratory infection, unspecified] 06-10-2024 Episodic Peripheral and visceral atherosclerosis (20 sources) Peripheral vascular disease; Translations: [Peripheral vascular [...] [KARLA (obstructive sleep apnea)] Onset: 12-11-2016 Chronic Residual codes; unclassified (4 sources) Localized edema; Translations: [Localized edema] Onset: 03-05-2025 03-05-2025 Episodic Respiratory failure; insufficiency; arrest (adult) (12 sources) Acute respiratory failure; Translations: [Acute respiratory failure with hypoxia] 01-26-2021 Episodic Spondylosis; intervertebral disc disorders; other back problems (10 sources) Spinal stenosis of lumbar region; Translations: [Spinal stenosis, lumbar region without neurogenic claudication] 04-12-2023 Episodic Unclassified (2 sources) Placement of stent in coronary artery ; Translations: [Presence of coronary angioplasty implant and graft] Onset: 08-26-2010 01-25-2015 Unclassified (3 sources) Long-term drug therapy; Translations: [Other intermediate designer (current) drug therapy] Onset: 08-26-2010 08-26-2010 Unclassified (2 sources) New Patient; Translations: [New Patient] Onset: 12-17-2024 Viral infection (20 sources) Disease caused by 2019-nCoV; Translations: [COVID-19] Onset: 01-18-2021 01-18-2021 Episodic Past or Other Problems Problem Classification Problem Date Documented Da te Episodic/Chronic Administrative/social admission (20 sources) Advance directive discussed with patient; Translations: [Other specified counseling] Onset: 11-15-2021 Episodic Cardiac dysrhythmias (20 sources) ECG: sinus tachycardia; Translations: [Tachycardia, unspecified] Onset: 10-29-2024 01-26-2021 Episodic Coronary atherosclerosis and other heart disease (20 sources) Coronary angioplasty status; Translations: [History of myocardial infarction] Onset: 07-29-1997 08-26-2010 Episodic Comment on above: 08/01/1997 PTCA and DE S to mid RCA per Dr. Tobar @ [facility] Genitourinary symptoms and ill-defined conditions (20 sources) Increased frequency of urination; Translations: [Frequency of micturition] Onset: 10-27-2019 10-27-2019 Episodic Nutritional deficiencies (20 sources) Cobalamin deficiency; Translations: [Deficiency of other specified B group vitamins] Onset: 08-16-2023 08-16-2023 Episodic Other aftercare (2 sources) Other senior living (current) drug therapy; Translations: [Other intermediate designer (current) drug therapy] Onset: 08-26-2010 08-26-2010 Episodic Other circulatory disease (2 sources) History of myocardial infarction; Translations: [Old myocardial infarction] Onset: 01-25-2015 01-25-2015 Episodic Other circulatory disease (2 sources) Other specified symptoms and signs involving the circulatory and respiratory systems; Translations: [Other specified symptoms and signs involving the circulatory and respiratory systems] Onset: 07-24-2024 Episodic Other infections; including parasitic (20 sources) Personal history of other infectious and parasitic diseases; Translations: [History of COVID-19] Onset: 01-18-2021 11-15-2021 Episodic Other lower respiratory disease (1 source) Hypoxemia; Translations: [Hypoxemia] 04-14-2023 Episodic Other lower respiratory disease (1 source) Cyanosis; Translations: [Cyanosis] Onset: 07-24-2024 Episodic Other male genital disorders (20 sources) Phimosis; Translations: [Phimosis] Onset: 12-11-2016 08-14-2017 Episodic Other male genital disorders (20 sources) Disorder of prostate; Translations: [Disorder of prostate, unspecified] Onset: 12-11-2016 12-11-2016 Episodic Residual codes; unclassified (20 sources) Active living will ; Translations: [Other specified health status] Onset: 11-15-2021 Episodic Screening and history of mental health and substance abuse codes (20 sources) Ex-smoker; Translations: [Personal history of nicotine dependence] Onset: 12-11-2016 02-25-2019 Episodic Unclassified (10 sources) Family history of ischemic heart disease and other diseases of the circulatory system; Translations: [Family history of ischemic heart disease and other diseases of the circulatory system] Resolved: 01-25-2015 01-25-2015 Episodic Results Test Name Value Interpretation Reference Range Facility Progress Noteon 03-11-2025 Progress Note I called patient to discuss plan for Impella supported left main/multivessel PCI and left a message on home phone. I asked him to return call to the office at his convenience so we can discuss and set things up as per my office note. Please let me know a time when he would be available and we will try to reach him and his family. Zunilda Barrientos MD Normal [facility] No Panel Informationon 03-05 Sinus Rhythm -First degree A-V block [facility] Office Visiton 03-05-2025 Follow-up visit [id number] Christofer Cano i 1945 M Date Provider Department Center 03/05/2025 ZUNILDA JOY [facility] [address] Family History Problem Relation Age of Onset Heart disease Mother Coronary artery disease Father Kidney cancer Sister Family Status - Relation Status Age at Mother Father Sister Level of Service:56282 [place] OFFICE/OUTPATIENT NEW MODERATE MDM 45 MINUTES Reason for Visit and Comments: New Patient [542] Coronary Artery Disease [187] Normal [facility] Progress Noteon 03-05-2025 Progress Note [facility] Cardiology Note DATE of SERVICE: 03/05/2025 DATE of : 1945 PRIMARY CARE PHYSICIAN: César Merrill MD Chief Complaint: Chief Complaint Patient presents with ? New Patient ? Coronary Artery Disease History of Present Illness: Katharine Cano is a 80 y.o. Episcopal male with severe bilateral iliac disease with lifestyle-limiting claudication (Followed by Dr. Taylor) found to have significant multivessel coronary disease involving distal left main bifurcation into ostial LAD and ostial circumflex with at least moderate calcified nodular stenosis of the large proximal dominant RCA was referred to interventional cardiology for evaluation of potential percutaneous coronary revascularization options. He was initially worked up for claudication and was found to have severe bilateral iliac stenoses with subtotal/total occlusions. Current surgical plan for lower extremity revascularization includes axillary bifemoral bypass. Further cardiovascular evaluation ensued at [place] including stress test showing inferolateral ischemia followed by cardiac cath with the findings as above. Echocardiogram performed showing normal EF and valves. He was referred to [facility] cardiothoracic surgeon Dr. Brizuela for potential CABG. however increased risks of CABG noted due to advanced age, some debilitation with decreased mobility (in wheelchair in office), obesity, and mild CKD with creatinine 1.2-1.3. Patient then referred for evaluation of percutaneous coronary revascularization options. Cardiac cath films from [place] personally reviewed and showed moderate tapering of distal left main with calcified critical stenosis of ostial circumflex and moderate to severe ostial LAD stenosis. Additional 50% stenosis of mid LAD which appears nonflow-limiting. Large dominant RCA noted calcified focal moderate proximal stenosis, estimated at least 50% stenotic. Complex anatomy with calcified distal left main bifurcation stenosis present, best approached with hemodynamic support using Impella, but this was further complicated by his critical calcified bilateral common iliac and femoral stenoses. Patient is ambulatory at baseline, but tires easily with shortness of breath, angina, and significant leg claudication bilaterally. He is obese, and utilizes a wheelchair for longer distances, including getting to our office. He is accompanied by his and son. He has chronic bilateral lower extremity edema. He is on chronic losartan/HCTZ, atenolol, DAPT with aspirin and Plavix, and high-dose Zocor 80 mg daily. Lipids are well-controlled, and hemoglobin A1c under reasonable control at 6.6%. Blood pressure is controlled. Creatinine 1.2. Past Medical History: Medical History Past Medical History: Diagnosis Date ? Acute on chronic respiratory failure with hypoxia (HCC) ? Coronary artery disease ? Diabetes mellitus (HCC) ? History of rheumatic fever ? Hyperlipidemia ? Hypertension ? ND (myocardial infarction) (HCC) ? Mitral valve prolapse Past Surgical History Surgical History Past Surgical History: Procedure Laterality Date ? BACK SURGERY 2022 ? PARTIAL KNEE ARTHROPLASTY Bilateral 2011 ? SPINE SURGERY 2014 Family History Family History Family History Problem Relation Name Age of Onset ? Heart disease Mother ? Coronary artery disease Father ? Kidney cancer Sister Social History Social History Social History Tobacco Use ? Smoking status: Former Types: Cigarettes Substance Use Topics ? Alcohol use: Never ? Drug use: Never Allergies: Allergies Allergies Allergen Reactions ? Rosuvastatin Rash Other Reaction(s): Other: See Comments rash and sore muscles ? Valsartan Other Reaction(s): Cough ? Metformin Diarrhea ? Zinc Other Reaction(s): Intolerance chest pain Medications: Current Medications Current Outpatient Medications: ? aspirin 81 MG EC tablet, Take 81 mg by mouth daily. (Patient taking differently: Take 162 mg by mouth daily.), Disp: , Rfl: ? atenolol (Tenormin) 25 MG tablet, Take 25 mg by mouth daily., Disp: , Rfl: ? baclofen (Lioresal) 20 MG tablet, Take 20 mg by mouth Nightly as needed for muscle spasms., Disp: , Rfl: ? Berberine Chloride 500 MG capsule, Take by mouth., Disp: , Rfl: ? Cholecalciferol (D3 PO), Take 50 mcg by mouth daily., Disp: , Rfl: ? cilostazol (Pletal) 50 MG tablet, Take 50 mg by mouth 2 times daily., Disp: , Rfl: ? clopidogrel (Plavix) 75 MG tablet, Take 75 mg by mouth daily., Disp: , Rfl: ? cyanocobalamin (Vitamin B-12) 1000 MCG tablet, Take 1,000 mcg by mouth daily., Disp: , Rfl: ? gabapentin (Neurontin) 100 MG capsule, Take 100 mg by mouth Nightly., Disp: , Rfl: ? glimepiride (Amaryl) 4 MG tablet, Take 4 mg by mouth 2 times daily., Disp: , Rfl: ? losartan-hydroCHLOROt hiazide (Hyzaar) 50-12.5 MG tablet, Take 1 tablet by mouth daily., Disp: , Rfl: ? nitroglycerin (Nitrost (more content not included)... Normal [facility] Progress Noteon 02-19-2025 Progress Note [facility] [address] [facility] [address] Dept: [phone] Dept Loc: [phone] Patient was identified and seen today via Telehealth by agreement and consent. I used the following Telehealth technology: Audio capability only. Total length of call 5 minutes. The patient was offered and advised video for a more comprehensive evaluation, but the patient declined or was unable to use video. Patient location: Patient Location: Home. This patient encounter is appropriate and reasonable under the circumstances: transportation issues . The patient has been advised of the potential risks and limitations of this mode of treatment (including but not limited to the absence of in-person examination) and has agreed to be treated in a remote fashion in spite of them. Any and all of the patient's/patient's family's questions on this issue have been answered and I have made no promises or guarantees to the patient. The patient has also been advised to contact this office for worsening conditions or problems, and seek emergency medical treatment and/or call 911 if the patient deems either necessary. The patient stated that they are currently in the [facility]. If the patient is a minor, permission has been obtained by the parent or guardian for the patient to receive medical care at this visit. Visit type: Established Reason for Visit: Discussed results of heart team meeting this morning Assessment and plan 1. Coronary artery disease involving [place] coronary artery of [place] heart without angina pectoris Recommendations I discussed the results of the heart team discussion with the patient, specifically our concerns regarding his left lower extremity peripheral vascular disease and potential complications associated with cardiopulmonary bypass and poor recovery given that the patient can only walk a few feet without having to use a wheelchair. The conclusion of the meeting was we will review the CT scans from [place] of the abdomen and pelvis to determine if he has access for peripheral Impella insertion to aid PCI of the left main and RCA. Once the images arrive in our system, I will have a discussion with interventional cardiology regarding the options in this regard. He may also be a candidate for axillary Impella and PCI if the femoral access is poor. STS Risk Calculator Procedure Type: Isolated CABG Perioperative Outcome Estimate % Operative Mortality 1.54% Morbidity & Mortality 6.5% Stroke 0.596% Renal Failure 1.44% Reoperation 1.67% Prolonged Ventilation 3.39% Deep Sternal Wound Infection 0.328% Long Hospital Stay (>14 days) 5.01% Short Hospital Stay (<6 days)* 37.7% History of Present Illness Katharine Cano is a 80 y.o. male known to Dr. Brizuela for CAD. Per note, patient with past medical history significant for ND s/p PCI to RCA in 1997, HLD, HTN, T2DM, PAD. Pt was seen by cardiology for pre op cardiac clearance prior to femoral vascular surgery. Pt reported ongoing shortness of breath on exertion. Pt underwent nuclear stress test 11/12/24 which showed mildly reduced reversible perfusion of basal inferior and lateral wall. Pt then underwent heart catheterization on 12/08/24 which demonstrated 60% distal LMCA, 70% ostial, 70% Mid LAD, 95% ostial LCX, 70% distal RCA lesions. Dr. Brizuela Note 12/17/24 This is a 79-year-old gentleman referred for evaluation for CABG after positive stress test and heart catheterization that showed multivessel coronary disease. He received the stress test secondary to workup for potential lower extremity bypass by vascular surgery for his peripheral arterial disease. Patient also has a history of type 2 diabetes and PCI to the RCA in 1997. Secondary to his lower extremity peripheral arterial disease, the patient does not ambulate much and presented today in a wheelchair. About a year and a half ago he was more active and denied chest pain with activity at that time. On my review of the heart catheterization, the patient has a very large RCA with a large PDA and PLB, amenable to bypass. LAD has a left main/proximal LAD lesion as well as a mid LAD lesion and a jailed diagonal branch, both amenable for grafting. The circumflex is very small vessel as result of the large right-sided dominant vessels in that territory, as result the circumflex is likely not graftable secondary to size. EF appears to be normal on stress testing, however evaluation of valvular abnormalities was limited on that exam. He has a history of rheumatic fever as a child and has a diagnosis in the chart of prolapsed mitral valve. From an anatomy standpoint, the patient has adequate targets for bypass, plan would be for use of left internal mammary artery and additional saphenous vein for conduit. His lower extremities are edematous and he has some non (more content not included)... Normal [facility] Carotid Duplex Ultrasoundon 02-05-2025 Carotid Duplex Ultrasound [facility] [address] [place] [address] Carotid Duplex Ultrasound 02/05/25 0955 MR#: [id number] Acct: [id number] Name: KATHARINE CANO Kamar Rep #: [id number] : 1945 79 From: Lenny Taylor MD Attending Dr: Dr. Payton Brizuela MD Status: REG CLI Ordering Dr: Payton Brizuela MD Date: 02/05/25 Location: [facility] Sex: M C Admitted: Reason For Study Reason For Study: Bilateral Neck Bruit Rt. Velocities/BP Lt. Velocities/BP Prox CCA 50.4/12.0 cm/sec. Prox CCA 54.8/9.8 cm/sec. Mid CCA 61.4/14.2 cm/sec. Mid CCA 73.5/12.0 cm/sec. Dist CCA 75.7/16.4 cm/sec. Dist CCA 59.2/12.0 cm/sec. Prox ICA 113.7/14.8 cm/sec. Prox ICA 111.2/21.7 cm/sec. Mid ICA 96.9/18.5 cm/sec. Mid ICA 124.1/25.7 cm/sec. Dist ICA 80.9/18.3 cm/sec. Dist ICA 61.3/16.9 cm/sec. Rt. ICA/CCA = 1.9. Lt. ICA/CCA = 1.7. Prox ECA 142.3/7.5 cm/sec. Prox ECA 95.6/7.5 cm/sec. Rt. Vert. 53.3/9.9 cm/sec. Lt. Vert. 45.3/10.4 cm/sec. Right Extracranial There is intimal thickening but no significant atherosclerotic plaque noted in the right common carotid artery. There is heterogeneous, irregular atherosclerotic plaque noted in the right internal carotid artery. The tortuous nature of the right internal carotid artery may result in flow velocities overestimating the degree of stenosis. There is heterogeneous, irregular atherosclerotic plaque noted in the right external carotid artery. Antegrade flow is noted in the right vertebral artery. Left Extracranial There is intimal thickening but no significant atherosclerotic plaque noted in the left common carotid artery. There is heterogeneous, irregular atherosclerotic plaque noted in the left internal carotid artery. The tortuous nature of the left internal carotid artery may result in flow velocities overestimating the degree of stenosis. There is heterogeneous, irregular atherosclerotic plaque noted in the left external carotid artery. Antegrade flow is noted in the left vertebral artery. Procedure Carotid Duplex 71187. This is a Carotid Duplex examination using B-mode, color flow and specral Doppler. The exam was diagnostic. Exam performed in department. VL/Carotid Duplex Ultrasound Interpretation Summary Mild (<50%) stenosis right extracranial internal carotid. Mild (<50%) stenosis left extracranial internal carotid. Patent and antegrade vertebrals bilaterally. Ordering Physician: Payton Brizuela Referring Physician: César Merrill Performed By: Hamilton Kelly, [facility] 02/05/25 1421 Date Lenny Taylor MD CC: Dr. Payton Brizuela MD; Dr. César Merrill MD Date Dictated: 02/05/2555 Date Transcribed: 02/05/25 142 Testing Lead: Signed Normal [facility] Basic metabolic 2000 panelon 01-27-2025 Anion gap [Moles/Vol] 14 mmol/L Normal 8-15 [facility] Comment on above: Order Comment: Speci men Type: BLOOD SPECIMENOrdering Facility: [facility] Address: [address] [place] [address] Performed By: #### 2 4321-2, LIPNF ####[facility] LABCLIA [id number] [place] [address] [place] Calcium [Mass/Vol] 9.4 mg/dL Normal 8.5-10.2 [facility] Comment on above: Order Comment: Speci men Type: BLOOD SPECIMENOrdering Facility: [facility] Address: [address] [place] [address] Performed By: #### 2 4321-2, LIPNF ####[facility] LABCLIA [id number] [place] [address] [place] Chloride [Moles/Vol] 106 mmol/L Normal 98-107 [facility] Comment on above: Order Comment: Speci men Type: BLOOD SPECIMENOrdering Facility: [facility] Address: [address] [place] [address] Performed By: #### 2 4321-2, LIPNF ####[facility] LABCLIA [id number] [place] [address] [place] CO2 [Moles/Vol] 21 mmol/L Low 22-30 [facility] Comment on above: Order Comment: Speci men Type: BLOOD SPECIMENOrdering Facility: [facility] Address: [address] [place] [address] Performed By: #### 2 4321-2, LIPNF ####[facility] LABCLIA [id number] [place] [address] [place] Creatinine [Mass/Vol] 1.24 mg/dL High 0.73-1.22 [facility] Comment on above: Order Comment: Speci men Type: BLOOD SPECIMENOrdering Facility: [facility] Address: [address] [place] [address] Performed By: #### 2 4321-2, LIPNF ####[facility] [id number] [place] [address] [place] eGFRcr SerPlBld CKD-EPI 2020 59 mL/min/1.73m??? Low >=60 [facility] Comment on above: Order Comment: Lucho kidd Type: BLOOD SPECIMENOrdering Facility: [facility] Address: [address] [place] [address] Result Comment: Laurie mated Glomerular Filtration Rate [...] reflect actual GFR. Performed By: #### 2 4321-2, LIPNF ####[facility] LABIA [id number] [place] [address] [place] Glucose [Mass/Vol] 125 mg/dL High 74-99 [facility] Comment on above: Order Comment: Lucho kidd Type: BLOOD SPECIMENOrdering Facility: [facility] Address: [address] [place] [address] Result Comment: The [place] Diabetes Association (ADA) provides guidance for cutoff [...] Standards of Medical Care in Diabetes 2016, [place] [employer]. Diabetes Care. 2016.39(Suppl 1). Performed By: #### 2 4321-2, LIPNF ####[facility] LABCLIA [id number] [address] [address] [place] Potassium [Moles/Vol] 4.4 mmol/L Normal 3.7-5.1 [facility] Comment on above: Order Comment: Speci men Type: BLOOD SPECIMENOrdering Facility: [facility] Address: [address] [place] [address] Performed By: #### 2 4321-2, LIPNF ####[facility] LABIA [id number] [place] [address] [place] Sodium [Moles/Vol] 141 mmol/L Normal 136-144 [facility] Comment on above: Order Comment: Speci men Type: BLOOD SPECIMENOrdering Facility: [facility] Address: [address] [place] [address] Performed By: #### 2 4321-2, LIPNF ####[facility] LABIA [id number] [place] [address] [place] Urea nitrogen [Mass/Vol] 23 mg/dL Normal 9-24 [facility] Comment on above: Order Comment: Speci men Type: BLOOD SPECIMENOrdering Facility: [facility] Address: [address] [place] [address] Performed By: #### 2 4321-2, LIPNF ####[facility] LABIA [id number] [place] [id number] [place] CNOVon 01-27-2025 CNOV Office Visit (FAMPWS ) KATHARINE CANO ([id number]) 1945 M Date Time Provider Department 01/27/25 8:40 AM CÉSAR MERRILL During your visit today, we recorded the following information about you: Pulse Respiration Blood pressure Weight 56/minute 18/minute 120/66 105 kg César Merrill MD 01/27/2025 9:42 AM Signed Chief Complaint Patient presents with: F/U 6 Month HPI Katharine Cano is a 79 year old male who presents here today for a routine follow up. Patient with hx of CAD, HTN, hyperlipidemia, KARLA, DM2, BPH, PVD and those as below. Had cardiac cath completed on 11/27/24 at [facility]. Katharine has been evaluated by a wet silk hanger at [facility], Dr. Nieto, on 11/14. He has been diagnosed with significant coronary artery disease, including an 80% occlusion in the LAD and a 100% occlusion in another coronary artery. He is awaiting further evaluation and treatment, including potential stent placement in the LAD and a bypass surgery for the 100% occluded artery. He has undergone multiple diagnostic tests, including a CT scan of the chest and vein mapping on 01/15 at [facility], which showed patent great saphenous and small saphenous veins. He is also scheduled for leg surgery by Dr. Taylor, a vascular surgeon, before the planned open-heart surgery. Katharine reports worsening dyspnea on exertion, which improves with rest. He denies hemoptysis, chest pain, palpitations, or arrhythmias. He also reports increased lower extremity edema, which has remained consistent since his last cardiology visit. He elevates his legs at home and uses a recliner for sleep due to discomfort in the lower legs, particularly from the knees down to the ankles. He experiences occasional leg cramps, for which he takes Yen's cramp pills sublingually, providing relief within 5 minutes. He denies new onset of leg cramps. Katharine experienced a syncopal episode several months ago while [place], attributed to inadequate food and water intake. He was accompanied by his two sons, who provided water and a sandwich, leading to symptom resolution. He denies seizures or tremors. He denies fevers, diaphoresis, chills, cervical lymphadenopathy, nausea, emesis, diarrhea, heartburn, or cephalalgia. He continues to use his CPAP machine at night. Past medical history, appointments, medications, allergies reviewed. [...] KARLA (obstructive sleep apnea) 12/19/2012 Phimosis 12/11/2016 PVD (peripheral vascular disease) 08/22/2024 Type 2 diabetes mellitus without complication, without long-term current use of insulin (HCC) 08/14/2017 Previous Surgical History PAST SURGICAL HISTORY Procedure Laterality Date 2D ECHO (EXEP) 11/19/2018 EF 55%, stage 1 Diast Dysf, NO change from 04/2011 ARTHRP KNE CONDYLEANDPLATU MEDIALANDLAT COMPARTMENTS Right ARTHRP KNE CONDYLEANDPLATU MEDIALANDLAT COMPARTMENTS Left IMMUNOCHEMICAL FECAL OCCULT BLOOD TEST 05/26/2019 negative PAST SURGICAL HISTORY OF 07/09/2017 right carpal tunnel repair PAST SURGICAL HISTORY OF 09/2017 C6, C7 block and plates PAST SURGICAL HISTORY OF 04/12/2023 lumbar surgery PAST SURGICAL HISTORY OF 03/2023 Spinal fusion L3-L4 PAST SURGICAL HISTORY OF N/A 11/27/2024 Heart catherization STRESS TEST 09/27/2017 negative Family History FAMILY [...] on File Prior to Visit Medication Sig atorvastatin (LIPITOR) 40 mg tablet Take 1 tablet by mouth once daily. pioglitazone (ACTOS) 45 mg tablet Take 1 tablet by mouth once daily. tamsulosin (FLOMAX) 0.4 mg Take 1 capsule by mouth daily at bedtime. Bringing good RX coupon. losartan-hydroCHLOROt hiazide (HYZAAR) 50-12.5 mg p (more content not included)... Normal [facility] HbA1c (Bld)on 01-27-2025 Average glucose Estimated from glycated hemoglobin (Bld) [Mass/Vol] 143 mg/dL Normal [facility] Comment on above: Order Comment: Lucho kidd Type: BLOOD SPECIMENOrdering Facility: [facility] Address: [address] [place] [address] Result Comment: eAG: (Estimated average glucose) is a calculated value from HgbA1c and is technical service representative of the average blood glucose level in the last 2-3 month period. Performed By: #### 5 5454-3 ####[facility] LABIA [id number] [place] [address] [place] HbA1c (Bld) [Mass fraction] 6.6 % High 4.3-5.6 [facility] Comment on above: Order Comment: Lucho kidd Type: BLOOD SPECIMENOrdering Facility: [facility] Address: [address] [place] [address] Result Comment: Amer ican Diabetes Association guidelines indicate that patients with HgbA1c in the range 5.7-6.4% are at increased risk for development of diabetes, and intervention by lifestyle modification may be beneficial. HgbA1c greater or equal to 6.5% is considered diagnostic of diabetes. Performed By: #### 5 5454-3 ####[facility] LABIA [id number] [place] [address] [place] LIPID PANEL, NONFASTINGon Cholesterol [Mass/Vol] 117 mg/dL Normal <200 Cl [facility] Comment on above: Order Comment: Lucho kidd Type: BLOOD SPECIMENOrdering Facility: [facility] Address: [address] [place] [address] Result Comment: <200 mg/dL, Desirable 200-239 mg/dL, Borderline high >239 mg/dL, High Performed By: #### 2 4321-2, LIPNF ####[facility] LABCLIA [id number] [address] [place] HDL CHOLESTEROL, NF 41 mg/dL Normal >39 [facility] Comment on above: Order Comment: Lucho kidd Type: BLOOD SPECIMENOrdering Facility: [facility] Address: [address] [place] [address] Result Comment: 40-5 9 mg/dL, Acceptable >59 mg/dL, High: Negative risk factor for coronary heart disease <40 mg/dL, Low: Positive risk factor for coronary heart disease Performed By: #### 2 4321-2, LIPNF ####[facility] LABCLIA [id number] [address] LDL CHOLESTEROL CALCULATED, NF 57 mg/dL Normal <100 [facility] Comment on above: Order Comment: Randolphjanell [facility] Type: BLOOD SPECIMENOrdering Facility: [facility] Address: [address] [place] [address] Result Comment: <100 mg/dL, Optimal 100-129 mg/dL, Near optimal/above optimal 130-159 mg/dL, Borderline high 160-189 mg/dL, High >189 mg/dL, Very high Secondary prevention optimal LDL Cholesterol levels are recommended to be <70 mg/dL LDL cholesterol is calculated using the Davis-NIH equation. Performed By: #### 2 4321-2, LIPNF ####[facility] LABCLIA [id number] [address] [facility] LDL/HDL RATIO, NF 1.39 mg/dL Normal <2.54 [facility] Comment on above: Order Comment: Lucho kidd Type: BLOOD SPECIMENOrdering Facility: [facility] Address: [address] [place] [address] Result Comment: Refe rence: 1. National Cholesterol Education Program ATP III Guideline At-A-Glance Quick Desk Reference: National Heart, Lung, and Blood Donaldson. National Institutes of Health. 2001: NIH Publication No. 01-3305. 2. An International Atherosclerosis Society position paper: global recommendations for the management of dyslipidemia: executive summary, Atherosclerosis. 2014: 232(2):410-413. Performed By: #### 2 4321-2, LIPNF ####[facility] LABCLIA [id number] [address], [facility] [place] NON HDL CHOL, NF 76 mg/dL Normal <130 [facility] Comment on above: Order Comment: Speci men Type: BLOOD SPECIMENOrdering Facility: [facility] Address: [address] [place] [address] Result Comment: <130 mg/dL, Optimal 130-159 mg/dL, Near optimal/above optimal 160-189 mg/dL, Borderline high 190-219 mg/dL, High >219 mg/dL, Very high Secondary prevention optimal non HDL Cholesterol levels are recommended to be <100 mg/dL Performed By: #### 2 4321-2, LIPNF ####[facility] LABCLIA [id number] [address], [address] [place] T CHOL/HDL RATIO NF 2.85 mg/dL Normal <5.10 [facility] Comment on above: Order Comment: Speci men Type: BLOOD SPECIMENOrdering Facility: [facility] Address: [address] [place] [address] Performed By: #### 2 4321-2, LIPNF ####[facility] LABCLIA [id number] [address], [facility] [place] TRIGLYCERIDES, NF 101 mg/dL Normal <150 [facility] Comment on above: Order Comment: Speci men Type: BLOOD SPECIMENOrdering Facility: [facility] Address: [address] [place] [address] Result Comment: <150 mg/dL, Normal 150-199 mg/dL, Borderline high 200-499 mg/dL, High >499 mg/dL, Very high Performed By: #### 2 4321-2, LIPNF ####[facility] LABCLIA [id number] [place] [address] [place] VLDL CHOLESTEROL, NF 15 mg/dL Normal <30 [facility] Comment on above: Order Comment: Speci men Type: BLOOD SPECIMENOrdering Facility: [facility] Address: [address] [place] [address] Performed By: #### 2 4321-2, LIPNF ####[facility] LABCLIA [id number] [facility] [address] [place] Venous duplex ultrasound rep ortOrdered By: Lenny Taylor on 01-19-2025 Vein [facility] Cardiovascular Services [address] [facility] [place] [address] Saphenous Vein Mapping, Bilat 01/15/25 09 MR#: [id number] Acct: [id number] Name: KATHARINE CANO Kamar Rep #:[id number] : 1945 79 From: Lenny Galvin Attending Dr: PAYTON BRIZUELA Status : REG CLI Ordering Dr: PAYTON BRIZUELA Date: Location: [facility] Sex: M C Admitted: Reason For Study Reason For Study: Pre-Op Planning RIGHT LEFT GSV GSV Prox Thigh - 0.33cm x 0.37cm Prox Thigh - 0.45cm x 0.54cm Mid Thigh - 0.38cm x 0.37cm Mid Thigh - 0.49cm x 0.51cm Dist Thigh - 0.30cm x 0.34cm Dist Thigh - 0.52cm x 0.57cm Knee - 0.29cm x 0.32cm Knee - 0.41cm x 0.38cm Prox Calf - 0.20cm x 0.21cm Prox Calf - 0.16cm x 0.20cm Mid Calf - 0.22cm x 0.26cm Mid Calf - 0.16cm x 0.18cm Distal Calf - 0.18cm x 0.21cm Distal Calf - 0.18cm x 0.21cm SSV ASV Prox Calf - 0.06cm x 0.10cm Prox Calf - 0.39cm x 0.47cm Mid Calf - 0.09cm x 0.11cm Mid Calf - 0.39cm x 0.46cm Dist Calf - 0.09cm x 0.13cm Dist Calf - 0.13cm x 0.18cm GSV and SSV appear compressible throughout. SSV Procedure Prox Calf - 0.07cm x 0.09cm This is a venous duplex using B-mode, color flow and Mid Calf - 0.09cm x 0.12cm spectral Doppler. Dist Calf - 0.15cm x 0.14cm Exam performed in department. The exam was diagnostic. GSV, ASV and SSV appear compressible throughout. VL/Saphenous Vein Mapping, Bilat Interpretation Summary Bilateral great saphenous veins patent with measurements above. Bilateral small saphenous veins patent with measurements above. Ordering Physician: PAYTON BRIZUELA Referring Physician: César Merrill Performed By: Hamilton Kelly RVT and Student 01/19/25905 Date _ Lenny Taylor MD CC: Dr. César Merrill MD; PAYTON BRIZUELA ~ Date Dictated: 01/15/25904 Date Transcribed: 01/19/25905 Testing Lead: Signed [facility] Work Phone: Chest without Contraston Chest without Contrast [facility] Imaging Services [address] [place] [address] Chest without Contrast MR#: [id number] Acct: [id number] Name: KATHARINE CANO Rep #: [id number] : 1945 M 79 From: Sergio guzman MD PCP: Dr. César Merrill MD Status: REG CLI Study: Chest without Contrast Date of Exam: 01/15/25 Exam# [id number] Ordering Dr: PAYTON BRIZUELA PROCEDURE: CHEST WITHOUT CONTRAST 01/15/2025 REASON FOR EXAM: AORTIC VALVE STENOSIS TECHNIQUE: Chest CT without contrast. Coronal and Sagittal reconstruction series were provided. One or more dose reduction techniques were used (e.g., Automated exposure control, adjustment of the mA and/or kV according to patient size, use of iterative reconstruction technique RADIATION DOSE SUMMARY: DLP: 602.94 mGycm COMPARISON: CT chest dated 01/30/2021 FINDINGS: There is a calcified granuloma in the right lower lobe. Dependent atelectatic changes and consolidation noted on previous exams has resolved. Mild ground-glass opacities and diffuse interstitial lung disease again demonstrated. No pneumothorax. No effusion. The thoracic inlet and base of the neck appear within normal limits. Heavy atherosclerosis of the aorta present. No aneurysm or dissection. Coronary arterial calcifications evident with heavy calcifications at the aortic leaflets. No pericardial effusion. There are shotty lymph nodes in the mediastinum which are not pathologically enlarged by size criteria. A calcified subcarinal and right hilar lymph nodes are present. Upper abdominal structures are within normal limits. Osseous structures reveal no destructive bone lesion or acute fracture. Multilevel spondylosis seen. CT/Chest without Contrast IMPRESSION: Complete resolution of consolidations and dependent atelectasis noted in previous exams. Mild diffuse interstitial lung disease and dependent atelectasis. No acute cardiopulmonary process. Heavy calcifications of the aortic leaflets. Coronary arterial calcifications. No pericardial effusion. Reading Location: [facility] CC: Dr. César Merrill MD; PAYTON BRIZUELA Testing Lead: Signed Normal [facility] Echo Completeon 01-15-2025 Echo Complete [facility] Cardiovascular Services [address] [place] [address] Echo Complete 01/15/25 0947 MR#: [id number] Acct: [id number] Name: KATHARINE CANO Rep #: [id number] : 1945 79 From: Sean Croft MD Attending Dr: PAYTON BRIZUELA Status: REG CLI Ordering Dr: PAYTON BRIZUELA Date: 01/15/25 Location: [facility] Sex: M C Admitted: Reason For Study Reason For Study: AORTIC Procedure This was a 2D Doppler, Color Flow transthoracic echocardiogram. Exam performed in department. Left Ventricle Normal LV size. Moderate concentric left ventricular hypertrophy. The left ventricular ejection fraction is 55 %. Stage 1 diastolic dysfunction. No regional wall motion abnormalities noted. Right Ventricle Normal RV size. Normal systolic function. Atria Normal left atrium. Normal right atrium. Mitral Valve Normal mitral valve. Tricuspid Valve Normal tricuspid valve. Aortic Valve Trisinus/trileaflet aortic valve. Pulmonic Valve Normal pulmonic valve. Great Vessels Normal aortic root. The pulmonary artery is normal size. Inferior vena cava collapse with respiration. Pericardium/Pleural No pericardial effusion. MMode/2D Measurements Calculations LVIDd: 5.7 cm IVSd: 1.4 cm Ao root diam: 3.6 cm LVIDs: 3.4 cm LVPWd: 1.5 cm FS: 39.4 % LAV(MOD-bp): 43.8 ml LVAd ap4: 28.7 cm2 LVAd ap2: 25.6 cm2 LAV(MOD-bp) Indexed: 20.8 ml/m2 LVLd ap4: 8.6 cm LVLd ap2: 8.6 cm LAV(MOD-sp2): 43.1 ml EDV(MOD-sp4): 80.8 ml EDV(MOD-sp2): 66.4 ml LAV(MOD-sp4): 38.1 ml EDV(sp4-el): 81.7 ml EDV(sp2-el): 64.4 ml LVAs ap4: 16.2 cm2 LVAs ap2: 15.1 cm2 LVLs ap4: 6.5 cm LVLs ap2: 7.3 cm ESV(MOD-sp4): 35.1 ml ESV(MOD-sp2): 29.1 ml ESV(sp4-el): 34.3 ml ESV(sp2-el): 26.2 ml EF(MOD-sp4): 56.5 % EF(MOD-sp2): 56.2 % EF(sp4-el): 58.0 % SV(MOD-sp4): 45.7 ml SV(MOD-sp2): 37.3 ml SV(sp4-el): 47.3 ml SI(MOD-sp4): 21.7 ml/m2 SI(MOD-sp2): 17.7 ml/m2 LA A4 area: 15.2 cm2 LA dimension(2D): 4.5 cm RA A4 area: 12.4 cm2 Time Measurements MV dec time: 0.19 sec Doppler Measurements Calculations MV E max bjorn: 60.2 cm/sec MV V2 max: 96.3 cm/sec MV dec slope: 330.8 cm/sec2 MV A max bjorn: 86.7 cm/sec MV max P.7 mmHg MV E/A: 0.69 MV V2 mean: 53.3 cm/sec MV mean P.3 mmHg MV V2 VTI: 35.1 cm Ao V2 max: 147.9 cm/sec LV V1 max: 101.6 cm/sec PA V2 max: 94.4 cm/sec Ao max P.8 mmHg LV V1 max P.1 mmHg PA V2 mean: 61.7 cm/sec Ao V2 mean: 100.6 cm/sec LV V1 mean P.4 mmHg Ao mean P.7 mmHg LV V1 mean: 72.9 cm/sec Ao V2 VTI: 41.4 cm LV V1 VTI: 28.0 cm AV (velocity ratio): 0.68 ECHO/Echo Complete Interpretation Summary Normal LV size. Moderate concentric left ventricular hypertrophy. The left ventricular ejection fraction is 55 %. Stage 1 diastolic dysfunction. Ordering Physician: PAYTON BRIZUELA Referring Physician: PAYTON BRIZUELA Performed By: Alize Herrera RCS 01/15/25 115 Date Sean Croft MD CC: Dr. César Merrill MD; PAYTON BRIZUELA Date Dictated: 01/15/2547 Date Transcribed: 01/15/251154 Testing Lead: Signed Normal [facility] Echocardiogram study reportO rdered By: Sean Croft on 01-15-2025 Study report [facility] Cardiovascular Services [address] [place] [address] Echo Complete 01/15/2547 MR#: [id number] Acct: [id number] Name: KATHARINE CANO Rep #:[id number] : 1945 79 From: Sean Galvin Attending Dr: PAYTON BRIZUELA Status : REG CLI Ordering Dr: PAYTON BRIZUELA Date: Location: [facility] Sex: M C Admitted: Reason For Study Reason For Study: AORTIC Procedure This was a 2D Doppler, Color Flow transthoracic echocardiogram. Exam performed in department. Left Ventricle Normal LV size. Moderate concentric left ventricular hypertrophy. The left ventricular ejection fraction is 55 %. Stage 1 diastolic dysfunction. No regional wall motion abnormalities noted. Right Ventricle Normal RV size. Normal systolic function. Atria Normal left atrium. Normal right atrium. Mitral Valve Normal mitral valve. Tricuspid Valve Normal tricuspid valve. Aortic Valve Trisinus/trileaflet aortic valve. Pulmonic Valve Normal pulmonic valve. Great Vessels Normal aortic root. The pulmonary artery is normal size. Inferior vena cava collapse with respiration. Pericardium/Pleural No pericardial effusion. MMode/2D Measurements & Calculations LVIDd: 5.7 cm IVSd: 1.4 cm Ao root diam: 3.6 cm LVIDs: 3.4 cm LVPWd: 1.5 cm FS: 39.4 % LAV(MOD-bp): 43.8 ml LVAd ap4: 28.7 cm2 LVAd ap2: 25.6 cm2 LAV(MOD-bp) Indexed: 20.8 ml/m2 LVLd ap4: 8.6 cm LVLd ap2: 8.6 cm LAV(MOD-sp2): 43.1 ml EDV(MOD-sp4): 80.8 ml EDV(MOD-sp2): 66.4 ml LAV(MOD-sp4): 38.1 ml EDV(sp4-el): 81.7 ml EDV(sp2-el): 64.4 ml LVAs ap4: 16.2 cm2 LVAs ap2: 15.1 cm2 LVLs ap4: 6.5 cm LVLs ap2: 7.3 cm ESV(MOD-sp4): 35.1 ml ESV(MOD-sp2): 29.1 ml ESV(sp4-el): 34.3 ml ESV(sp2-el): 26.2 ml EF(MOD-sp4): 56.5 % EF(MOD-sp2): 56.2 % EF(sp4-el): 58.0 % SV(MOD-sp4): 45.7 ml SV(MOD-sp2): 37.3 ml SV(sp4-el): 47.3 ml SI(MOD-sp4): 21.7 ml/m2 SI(MOD-sp2): 17.7 ml/m2 LA A4 area: 15.2 cm2 LA dimension(2D): 4.5 cm RA A4 area: 12.4 cm2 Time Measurements MV dec time: 0.19 sec Doppler Measurements & Calculations MV E max bjorn: 60.2 cm/sec MV V2 max: 96.3 cm/sec MV dec slope: 330.8 cm/sec2 MV A max bjorn: 86.7 cm/sec MV max P.7 mmHg MV E/A: 0.69 MV V2 mean: 53.3 cm/sec MV mean P.3 mmHg MV V2 VTI: 35.1 cm Ao V2 max: 147.9 cm/sec LV V1 max: 101.6 cm/sec PA V2 max: 94.4 cm/sec Ao max P.8 mmHg LV V1 max P.1 mmHg PA V2 mean: 61.7 cm/sec Ao V2 mean: 100.6 cm/sec LV V1 mean P.4 mmHg Ao mean P.7 mmHg LV V1 mean: 72.9 cm/sec Ao V2 VTI: 41.4 cm LV V1 VTI: 28.0 cm AV (velocity ratio): 0.68 ECHO/Echo Complete Interpretation Summary Normal LV size. Moderate concentric left ventricular hypertrophy. The left ventricular ejection fraction is 55 %. Stage 1 diastolic dysfunction. Ordering Physician: PAYTON BRIZUELA Referring Physician: PAYTON BRIZUELA Performed By: Alize Herrera RCS 01/15/25 1155 Date _ Sean Croft MD CC: Dr. César Merrill MD; PAYTON BRIZUELA ~ Date Dictated: 01/15/2547 Date Transcribed: 01/15/25 115 Testing Lead: Signed [facility] Work Phone: Saphenous Vein Mapping Bila ton 01-15-2025 Saphenous Vein Mapping, Bilat [facility] Cardiovascular Services [address] [place] [address] Saphenous Vein Mapping, Bilat 01/15/25904 MR#: [id number] Acct: [id number] Name: KATHARINE CANO Rep #: [id number] : 1945 79 From: Lenny Taylor MD Attending Dr: PAYTON BRIZUELA Status: REG CLI Ordering Dr: PAYTON BRIZUELA Date: 01/15/25 Location: [facility] Sex: M C Admitted: Reason For Study Reason For Study: Pre-Op Planning RIGHT LEFT GSV GSV Prox Thigh - 0.33cm x 0.37cm Prox Thigh - 0.45cm x 0.54cm Mid Thigh - 0.38cm x 0.37cm Mid Thigh - 0.49cm x 0.51cm Dist Thigh - 0.30cm x 0.34cm Dist Thigh - 0.52cm x 0.57cm Knee - 0.29cm x 0.32cm Knee - 0.41cm x 0.38cm Prox Calf - 0.20cm x 0.21cm Prox Calf - 0.16cm x 0.20cm Mid Calf - 0.22cm x 0.26cm Mid Calf - 0.16cm x 0.18cm Distal Calf - 0.18cm x 0.21cm Distal Calf - 0.18cm x 0.21cm SSV ASV Prox Calf - 0.06cm x 0.10cm Prox Calf - 0.39cm x 0.47cm Mid Calf - 0.09cm x 0.11cm Mid Calf - 0.39cm x 0.46cm Dist Calf - 0.09cm x 0.13cm Dist Calf - 0.13cm x 0.18cm GSV and SSV appear compressible throughout. SSV Procedure Prox Calf - 0.07cm x 0.09cm This is a venous duplex using B-mode, color flow and Mid Calf - 0.09cm x 0.12cm spectral Doppler. Dist Calf - 0.15cm x 0.14cm Exam performed in department. The exam was diagnostic. GSV, ASV and SSV appear compressible throughout. VL/Saphenous Vein Mapping, Bilat Interpretation Summary Bilateral great saphenous veins patent with measurements above. Bilateral small saphenous veins patent with measurements above. Ordering Physician: PAYTON BRIZUELA Referring Physician: César Merrill Performed By: Hamilton Kelly RVT and Student 01/19/25905 Date Lenny Taylor MD CC: Dr. César Merrill MD; PAYTON BRIZUELA Date Dictated: 01/15/25904 Date Transcribed: 01/19/25905 Testing Lead: Signed [facility] 36on 12-19-2024 36 Patient is scheduled for Testing in [place] on 01/15/25. [facility] 36 We have been unable to reach your patient to schedule their testing. Test Name: Vas US vein mapping, US carotid,Echo,CT chest 1st Attempt: 12/18/24 2nd Attempt: 12/19/24 [facility] Office Visiton 12-17-2024 Follow-up visit [id number] Christofer Cano i 1945 Date Provider Department Center 12/17/2024 [id number] BRIZUELA [facility] [place] Family History Problem Relation Age of Onset Heart disease Mother Coronary artery disease Father Kidney cancer Sister Family Status - Relation Status Age at Mother Father Sister Level of Service:84529 TX OFFICE/OP CONSLTJ NEW/EST PT HIGH MDM 55 MINUTES Reason for Visit and Comments: New Patient [542] [facility] Progress Noteon 12-17-2024 Progress Note [facility] CARDIOVASCULAR & THORACIC SURGERY [address] [facility] [address] Dept: [phone] Dept Loc: [phone] Visit type: New Reason for Visit: Coronary artery disease Assessment and plan 1. Coronary artery disease of [place] artery of [place] heart with stable angina pectoris (HCC) This is a 79-year-old gentleman referred for evaluation for CABG after positive stress test and heart catheterization that showed multivessel coronary disease. He received the stress test secondary to workup for potential lower extremity bypass by vascular surgery for his peripheral arterial disease. Patient also has a history of type 2 diabetes and PCI to the RCA in 1997. Secondary to his lower extremity peripheral arterial disease, the patient does not ambulate much and presented today in a wheelchair. About a year and a half ago he was more active and denied chest pain with activity at that time. On my review of the heart catheterization, the patient has a very large RCA with a large PDA and PLB, amenable to bypass. LAD has a left main/proximal LAD lesion as well as a mid LAD lesion and a jailed diagonal branch, both amenable for grafting. The circumflex is very small vessel as result of the large right-sided dominant vessels in that territory, as result the circumflex is likely not graftable secondary to size. EF appears to be normal on stress testing, however evaluation of valvular abnormalities was limited on that exam. He has a history of rheumatic fever as a child and has a diagnosis in the chart of prolapsed mitral valve. From an anatomy standpoint, the patient has adequate targets for bypass, plan would be for use of left internal mammary artery and additional saphenous vein for conduit. His lower extremities are edematous and he has some nonhealing wounds of the left lower extremity which is the side with worse stenosis in the femorals. I have concerns that blood flow will be compromised during the cardiopulmonary bypass run to the lower extremities, and I will have to have a discussion with vascular surgery regarding conduit they may use for lower extremity bypass as well. If he is deemed too high risk for surgical complications he may be a PCI candidate, we will have to discuss with interventional cardiology regarding his options. Prior to consideration for surgery will need the following: - TTE - CT of the chest - Bilateral carotid artery ultrasounds - Bilateral lower extremity vein mapping I will then see him back in the office to discuss the results of the studies as well as determine his risk for surgical intervention and plan moving forward. STS Calculation Procedure Type: Isolated CABG Perioperative Outcome Estimate % Operative Mortality 1.73% Morbidity & Mortality 6.31% Stroke 0.969% Renal Failure 1.2% Reoperation 1.95% Prolonged Ventilation 2.83% Deep Sternal Wound Infection 0.162% Long Hospital Stay (>14 days) 3.73% Short Hospital Stay (<6 days)* 46.3% History of Present Illness Katharine Cano is a 79 y.o. male referred by Dr. Remy for CABG consult. Per note, patient with past medical history significant for ND s/p PCI to RCA in 1997, HLD, HTN, T2DM, PAD. Pt was seen by cardiology for pre op cardiac clearance prior to femoral vascular surgery. Pt reported ongoing shortness of breath on exertion. Pt underwent nuclear stress test 11/12/24 which showed mildly reduced reversible perfusion of basal inferior and lateral wall. Pt then underwent heart catheterization on 12/08/24 which demonstrated 60% distal LMCA, 70% ostial, 70% Mid LAD, 95% ostial LCX, 70% distal RCA lesions. Patient is a former smoker. Hgb A1C on 07/24/24 was 7.6%. Patient is here for a CABG consult. Past Medical History Medical History[1] Past Surgical History Surgical History[2] Family History Family History[3] Social History Social History[4] Allergies Allergies[5] Medications Current Medications[6] Review of Systems Review of Systems Respiratory: Negative for shortness of breath. Shortness of breath with exertion Cardiovascular: Positive for chest pain. All other systems reviewed and are negative. Physical Exam Vitals: BP 138/76 (BP Location: Right arm, Patient Position: Sitting, BP Cuff Size: Large adult) Pulse 56 Wt 230 lb (104 kg) Physical Exam Labs No results found for: WBC, HGB, PLT, NA, K, CREATININE Imaging Heart Catheterization 11/27/24 CONCLUSIONS 60% distal LMCA 70% ostial, 70% Mid LAD 95% ostial LCX 70% distal RCA RECOMMENDATIONS Surgery consult for coronary revascularization CORONARY ANGIOGRAPHY DOMINANCE: Right Dominant LEFT MAIN: Tubular 60% Distal lesion in LMCA LEFT ANTERIOR DESCENDING ARTERY: LAD: Tubular 70% Ostial lesion in LAD Tubular 70% Mid lesion in LAD RIGHT CORONARY ARTERY: RCA: Calcified 50% Proximal lesion in RC (more content not included)... Normal [facility] Cardiac Cath Diagnosticon Cardiac Cath Diagnostic [facility] Imaging Services [address] [place] [address] Cardiac Cath Diagnostic MR#: [id number] Acct: [id number] Name: KATHARINE CANO Rep #: [id number] : 1945 79 From: Debbie Remy MD PCP: Dr. César Merrill MD Status:[facility] Patient Name: KATHARINE CNAO Study Date: 11/27/2024 Performing: Debbie Remy MD Ht: 66 inches 167.64 cm : 1945 Wt: 231 lbs 104.78 kg Age: 79 Gender: male BSA: 2.13 PROCEDURE(S) PERFORMED [id number]-([id number])[facility] CLINICAL PROFILE AND INDICATIONS Indications: Stable Known CAD Heart Failure: None Stress/Imaging Stress Test w/SPECT MPI: Yes Result: Positive Intermediate RiskStress Test with SPECT MPI: Positive Intermediate Risk CAD Presentations: No Sxs, no angina. CONCLUSIONS 60% distal LMCA 70% ostial, 70% Mid LAD 95% ostial LCX 70% distal RCA RECOMMENDATIONS Surgery consult for coronary revascularization DESCRIPTION OF PROCEDURE The patient arrived to the procedure lab. The risks and benefits of the procedure as well as a full description of our services here and current unavailability of surgical backup were fully explained to the patient and/or their significant other prior to the catheterization. The Timeout was completed, verifying the correct patient and procedure. The patient's procedural site was prepped and draped in the usual fashion. Local anesthetic was given subcutaneously to right radial region with Lidocaine 2%. Using a modified Seldinger technique, arterial access was obtained via the right radial artery, a 6Fr sheath was inserted. Right Coronary Artery selective angiography was then performed in multiple views using a 5 Fr. 4.0 [place] catheter. Left Coronary Artery selective angiography was performed in multiple views using a 5 Fr. 4.0 [place] catheter.The arterial sheath was pulled and a TR Band was applied for hemostasis. 10cc aire CORONARY ANGIOGRAPHY DOMINANCE: Right Dominant LEFT MAIN: Tubular 60% Distal lesion in LMCA LEFT ANTERIOR DESCENDING ARTERY: LAD: Tubular 70% Ostial lesion in LAD Tubular 70% Mid lesion in LAD RIGHT CORONARY ARTERY: RCA: Calcified 50% Proximal lesion in RCA Tubular 70% Distal lesion in RCA COMPLICATIONS No Complications PROCEDURE MEDICATIONS Fentanyl 50 mcg IV Versed 1 mg IV Oxygen: 2 L/min via nasal cannula Heparin given IA 11/27/2024 09:56:11 Verapamil 2.5mg, Ntg 200mcgs, 2000 units of Heparin given IA 11/27/2024 09:56:11 SUMMARY OF HEMODYNAMIC DATA Time AIR REST AO 138/60 (90) SA 10:08:13 AIR REST 10:24:00 AIR REST ECG 10:24:00 Signed By Debbie Remy MD On 11/27/2024 10:43:53 Debbie Remy MD 12/08/24 0947 Date Debbie Remy MD Cosigner Signature: Date (if indicated) CC: Dr. Debbie Remy MD; Dr. César Merrill MD Date Dictated: 11/27/2455 Date Transcribed: 11/27/24 1043 Testing Lead: AR Signed Normal [facility] Chest PA and Lateralon 11-21 Chest PA and Lateral [facility] Imaging Services [address] [place], [place] [id number] Chest PA and Lateral MR#: [id number] Acct: [id number] Name: JEROMEKATHARINE Rep #: [id number] : 1945 M 79 From: Zunilda Delong MD PCP: Dr. César Merrill MD Status: REG CLI Study: Chest PA and Lateral Date of Exam: 11/21/24 Exam# [id number] Ordering Dr: Trey Malagon PROGRAM ADVISOR PROGRAM ADVISOR-C EXAM: XR Chest, 2 Views CLINICAL INDICATION: PRE-OPERATIVE: LHC TECHNIQUE: Frontal and lateral views of the chest. COMPARISON: No relevant prior studies available. FINDINGS: LUNGS AND PLEURAL SPACES: Unremarkable. No consolidation. No pneumothorax. HEART: Unremarkable. No cardiomegaly. MEDIASTINUM: Unremarkable. Normal mediastinal contour. BONES/JOINTS: Unremarkable. No acute fracture. RAD/Chest PA and Lateral IMPRESSION: No acute cardiopulmonary process. Reading Location: [id number] CC: CONRADO Malagon; Dr. César Merrill MD Testing Lead: Signed Normal [facility] Plastic Surgery Visit Report on 11-14-2024 Plastic Surgery Visit Report [facility] Plastic Reconstructive Surgery [address], [address] [place] [address] OFFICE VISIT Date of Service: 11/14/24 MR#: [id number] Acct: [id number] Name: KATHARINE CANO Kamar Rep #: [id number] : 1945 Provider: Dr. John Nieto MD Age/Sex: 79/M Location: [facility] Status: Signed Intake Vital Signs 10/29/24 10:29 11/14/24 10:30 Height 5 ft 6 in 5 ft 6 in Weight: 220 lb BMI 35.5 BP 159/68 H Blood Pressure Location Rt brachial Position Sitting Respiration 20 H Pulse 65 Pulse Source Monitor Temp 96.8 F L Temp Source Temporal Pulse Oximetry (%) 94 Oxygen Delivery Method room air Intake Visit Reasons: PREOP Chief Complaint: Establish Care Apprentice Cosmetologist Required: No DME Vendor: n/a Accompanied by: Other Family Is patient in pain?: Yes Pain scale (1-10): 3 Allergies rosuvastatin (From Crestor) Allergy (Intermediate, Verified 11/14/24 10:31) Rash Medications ???Medication ???Instructions ???Recorded ???Confirmed ???Type nitroglycerin 0.4 mg sublingual 0.4 mg sublingual Q5-15M PRN chest 11/04/18 11/14/24 Rx tablet pain #25 tabs baclofen 20 mg tablet 20 mg PO QHS Check with primary 11/14/24 [address] tamsulosin 0.4 mg capsule 0.4 mg PO QHS Check with primary 1 11/14/24 History doctor gabapentin 100 mg capsule 100 mg PO QHS LEG CRAMPS 07/21/21 11/14/24 History pioglitazone 45 mg tablet 45 mg PO DAILY DIABETES 07/21/21 0 11/14/24 History glimepiride 4 mg tablet 4 mg PO BID DIABETES 01/11/2210/28 History losartan 50 mg-hydrochlorothiazid e 1 tab PO DAILY BP #90 tabs 01/0211/14/24 Rx 12.5 mg tablet simvastatin 80 mg tablet 80 mg PO QHS CHOLESTEROL #90 01/0211/14/24 Rx TABLETS aspirin 81 mg chewable tablet 162 mg (2 x 81 mg) PO QDAY PVD #60 07/10/24 11/14/24 Rx (Manan Chewable Low Dose Aspirin) tabs berberine chloride 500 mg capsule 1,000 mg PO BID SUPPLEMENT 11/14/24 History cilostazol 50 mg tablet 50 mg PO BID PVD #60 tabs 08/29/24 11/14/24 Rx clopidogrel 75 mg tablet (Plavix) 75 mg PO DAILY PVD #180 tabs 09/2811/14/24 Rx atenolol 25 mg tablet 25 mg PO DAILY BP #90 tabs 5 11/14/24 Rx CIRULATION CALCIUM 1 tab PO DAILY SUPPLEMENT 11/06/24 11/14/24 History CURALIAN 2 cap PO BID SUPPLEMENT 11/06/24 0 11/14/24 History DYSODIUM 1 tab PO DAILY SUPPLEMENT 11/06/24 11/14/24 History PRO-CURSE 1 tab PO DAILY SUPPLEMENT 11/06/24 11/14/24 History SUPER HEALTH PROSTATE 1 tab PO DAILY SUPPLEMENT 11/06/24 11/14/24 History cholecalciferol (vitamin D3) 50 50 mcg PO DAILY SUPPLEMENT 5 11/14/24 History mcg (2,000 unit) capsule (Vitamin D3) mecobalamin (vitamin B12) 1,000 1,000 mcg PO DAILY SUPPLEMENT 10/2811/14/24 History mcg chewable tablet Have you fallen in the past year?: No [facility] Medical History (Updated 11/06/24 @ 11:57 by Jayla Joseph) Ambulates with cane History of pain when walking History of heart attack Wears hearing aid Wears glasses Wears dentures [...] artery ( 08/01/97) Atherosclerotic heart disease of [place] coronary artery without angina pectoris Surgical History (Updated 11/06/24 @ 11:57 by Jayla Joseph) History of lumbar fusion History of cardiac catheterization Hx of total [...] substance use type: does not use HPI PREOP Details: The patient is a 79-year-old male presenting with a need for reconstructive surgery to assist in vascular repair. The patient has a history of diabetes mellitus, which may complicate wound healing and surgical outcomes. The anticipated procedures of bypass for the left l (more content not included)... Normal [facility] Basic Metabolic Profile (BMP )on 11-12-2024 BUN/CRE 14.4 RATIO Normal 10-20 [facility] Comment on above: Performed By: #### L 500.2500, L100.0500, BTSPAT #### [facility] Laboratory [address] [place], [place], [id number] Calcium [Mass/Vol] 9.4 mg/dL Normal 7.6-11.0 [facility] Comment on above: Performed By: #### L 500.2500, L100.0500, BTSPAT #### [facility] Laboratory [address] [place], [address] Chloride [Moles/Vol] 103 mmol/L Normal 98-108 [facility] Comment on above: Performed By: #### L 500.2500, L100.0500, BTSPAT #### [facility] Laboratory [address] [place], [address] CO2 [Moles/Vol] 21.9 mmol/L Normal 21.0-32.0 [facility] Comment on above: Performed By: #### L 500.2500, L100.0500, BTSPAT #### [facility] Laboratory [address] [place], [address] Creatinine [Mass/Vol] 1.25 mg/dL High 0.70-1.20 [facility] Comment on above: Performed By: #### L 500.2500, L100.0500, BTSPAT #### [facility] [address] [place], [address] GAP 13 Normal 5-15 [facility] Comment on above: Performed By: #### L 500.2500, L100.0500, BTSPAT #### [facility] Laboratory [address] [place], [address] GFR/1.73 sq M.predicted among non-blacks MDRD (S/P/Bld) [Vol rate/Area] 59 mL/min/{1.73_m2} Low >60 [facility] Comment on above: Result Comment: mL/m in/1.73m2 CKD-EPI Creatinine Equation (2020) Performed By: #### L 500.2500, L100.0500, BTSPAT #### [facility] [address] [place], [address] Glucose [Mass/Vol] 123 mg/dL High 70-99 [facility] Comment on above: Performed By: #### L 500.2500, L100.0500, BTSPAT #### [facility] [address] [place], [address] Potassium [Moles/Vol] 3.8 mmol/L Normal 3.3-5.1 [facility] Comment on above: Performed By: #### L 500.2500, L100.0500, BTSPAT #### [facility] [address] [place], [address] Sodium [Moles/Vol] 138 mmol/L Normal 133-145 [facility] Comment on above: Performed By: #### L 500.2500, L100.0500, BTSPAT #### [facility] [address] [place], [address] Urea nitrogen [Mass/Vol] 18 mg/dL Normal 4-19 [facility] Comment on above: Performed By: #### L 500.2500, L100.0500, BTSPAT #### [facility] [address] [place], [address] CBC-Complete Blood Cnt No Di ffon 11-12-2024 Erythrocyte distribution width (RBC) [Ratio] 14.5 % Normal 11.6-14.6 [facility] Comment on above: Performed By: #### L 500.2500, L100.0500, BTSPAT #### [facility] [address] [place], [address] Hematocrit (Bld) [Volume fraction] 42.0 % Normal 40-54 [facility] Comment on above: Performed By: #### L 500.2500, L100.0500, BTSPAT #### [facility] [address] [place], [address] Hemoglobin (Bld) [Mass/Vol] 14.0 g/dL Normal 13.0-16.5 [facility] Comment on above: Performed By: #### L 500.2500, L100.0500, BTSPAT #### [facility] [address] [place], [address] MCH (RBC) [Entitic mass] 34.1 pg High 27.0-32.0 [facility] Comment on above: Performed By: #### L 500.2500, L100.0500, BTSPAT #### [facility] [address] [place], [address] MCHC (RBC) [Mass/Vol] 33.3 g/dL Normal 32-36 [facility] Comment on above: Performed By: #### L 500.2500, L100.0500, BTSPAT #### [facility] [address] [place], [address] MCV (RBC) [Entitic vol] 102.2 fL High 80-94 [facility] Comment on above: Performed By: #### L 500.2500, L100.0500, BTSPAT #### [facility] Laboratory [address] [place], [address] Platelet mean volume (Bld) [Entitic vol] 9.4 fL Normal 6.2-12.0 [facility] Comment on above: Performed By: #### L 500.2500, L100.0500, BTSPAT #### [facility] Laboratory [address] [place], [address] Platelets (Bld) [#/Vol] 170 10*3/uL Normal 150-450 [facility] Comment on above: Performed By: #### L 500.2500, L100.0500, BTSPAT #### [facility] Laboratory [address] [place], [address] RBC (Bld) [#/Vol] 4.11 10*6/uL Low 4.6-6.2 [facility] Comment on above: Performed By: #### L 500.2500, L100.0500, BTSPAT #### [facility] Laboratory [address] [place], [address] RDW SD 54.5 fl High 35.1-43.9 [facility] Comment on above: Performed By: #### L 500.2500, L100.0500, BTSPAT #### [facility] Laboratory [address] [place], [address] WBC (Bld) [#/Vol] 4.5 10*3/uL Normal 4.4-11.0 [facility] Comment on above: Performed By: #### L 500.2500, L100.0500, BTSPAT #### [facility] Laboratory [address] [place], [address] Cardiovascular stress test r eportOrdered By: Debbie Remy on 11-12-2024 Study report [facility] Cardiovascular Services [address] [place] [address] MR#: [id number] Acct: [id number] Name: KATHARINE CANO Kamar Rep #: [id number] : 1945 79 From: Debbie Remy MD Primary Care: Dr. César Merrill MD Stat us: REG CLI Referring Dr: Trey Malagon NP PROGRAM ADVISOR-C Sex: M C Stress Test Report Date: 11/12/2024 Procedure: Pharmacologic stress nuclear imaging study Indications: Coronary artery disease Consent: Per the patient Procedure: The patient underwent pharmacologic (Regadenoson 0.4mg ) evaluation with a peak heart rate of 90 beats per minute (64%predicted maximal heart rate) and a peak blood pressure of 152/70 mmHg. The baseline ECG demonstrated sinus rhythm. The peak pharmacologic ECG not showany ischemic changes. There were no cardiac dysrhythmias pretest, during pharmacologic infusion, or recovery. There was no complaint of chest discomfort during pharmacologic infusion or recovery. The patient was injected with 14.2 millicuries of technetium 99m Cardiolite and subsequently rest SPECT Cardiolite nuclear imaging was obtained in the horizontal long, vertical long, and short axis views. The patient underwent pharmacologic (Regadenoson) evaluation. The patient was injected with 45.0 millicuries of technetium 99m Cardiolite and subsequently stress SPECT Cardiolite nuclear imaging was obtained in the horizontal long, vertical long, and short axis views. A gated Cardiolite study at peak stress was obtained. The examination was stopped secondary to completion of protocol. Rest and stress SPECT Cardiolite nuclear imaging status post realignment, normalization, and attenuation correction demonstrate mildly reduced perfusion of the basal inferior and lateral wall post pharmacological stress. There is end systolic thickening and brightening. The gated Cardiolite study demonstrates myocardial thickening and inward wall motion. The reported LVEF is60%. Impression: 1. Pharmacologic (Regadenoson) evaluation 2. Peak pharmacologic ECG with no ischemic changes. 3. There were no cardiac dysrhythmias pretest, during pharmacologic infusion, or recovery. 5. Mildly reduced reversible perfusion of the basal inferior and lateral wall, suggestive of mild ischemia. 6. The gated Cardiolite study reports an LVEF of 60%. This note was generated with [employer] software. It may contain incorrectwords, spelling, and punctuation that were not noted in checking the note beforesigning. 11/12/24 1211 Date _ Debbie Remy MD CC: CONRADO Malagon; Dr. César Merrill MD ~ Date Dictated: 11/12/241208 Date Transcribed: 11/12/241208 Testing Lead: GARCÍA Maldonado [facility] Work Phone: Hemoglobin A1con 11-12-2024 HbA1c (Bld) [Mass fraction] 7.1 % High <=5.6 [facility] Comment on above: Result Comment: Norm al < 5.7 % Prediabetic 5.7 - 6.4 % Diabetic >or= 6.5 % Please note range changes. Performed By: #### L 501.9924 #### [facility] Laboratory [address] [place], [place], [id number] MR/PAT.ANEon 11-12-2024 MR/PAT.ELIF [facility] Medical Records Department [address] [place] [address] PAT - Anesthesia 11/12/242121 MR#: [id number] Acct: [id number] Name: KATHARINE CANO Rep #: [id number] : 1945 79 From: Chauncey Whitney MD PCP: Dr. 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 When Was Last Pacemaker Check QUESTION #4 FULL TEXT: You/Your Family Experience fever (hyperthermia) with Anesthesia Last Oral Intake Last Oral intake: Last Oral Intake NPO since Meds taken in AM with sips of water? 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 Female No 11/06/24 11:49 HX of Motion Sickness No 11/06/24 11:49 HX of N/V After Surgery No 11/06/24 11:49 Non-Smoker Yes 11/06/24 11:49 Duration of Surgery greater Yes 11/06/24 11:49 than 60 minutes Number of Risk Factors 2 11/06/24 11:49 PONV Score Moderate Risk 11/06/24 11:49 Height Weight Height Weight: Anesthesia: Height Weight Height 5 ft 6 in 07/10/24 09:30 Respiratory Assessment Respiratory Assessment - seal extrusion operator: Respiratory Tract Infection Hx - seal extrusion operator Hx Respiratory Tract Infection No 11/06/24 11:49 STOP Sleep Apnea STOP Sleep Apnea - seal extrusion operator: STOP Sleep Apnea - seal extrusion operator Hx Hypertension Yes: CONTROLLED WITH MEDS 11/06/24 11:49 Hx Sleep Apnea Yes 11/06/24 11:49 CPAP Yes 11/06/24 11:49 BIPAP No 11/06/24 11:49 Do you snore loudly (louder than talking or can be heard Do you often feel tired/ fatigued/ sleepy during daytime? Has anyone observed you stop breathing during sleep? STOP Results Positive 11/06/24 11:49 QUESTION #5 FULL TEXT : Do you snore loudly (louder than talking or can be heard through closed doors)? 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 Specify any problems Hx of Preganancy in last 3 N/A 11/06/24 11:49 Months Nurse Filling Out Transfusion DSCHRIBER 11/06/24 11:49 Questions: Date: 11/06/24 11/06/24 11:49 Time: 11:50 11/06/24 11:49 Patient unable to answer at this time (ie. confused, unrespo /Reproductio n History /Reproductiv e History - seal extrusion operator: /Reproductiv e Hx- seal extrusion operator Hx Now No 11/06/24 11:49 Gestational Age (in weeks): EDC: Hx Hx Para Hx Section SAB No 11/06/24 11:49 PFSH Medical History (Updated 11/06/24 @ 11:57 by Jayla Joseph) Ambulates with cane History of pain when walking History of heart attack Wears hearing aid Wears glasses Wears dentures [...] Stented coronary artery ( 08/01/97) Atherosclerotic heart disea (more content not included)... Normal [facility] Stress Reporton 11-12-2024 Stress Report [facility] Cardiovascular Services [address] [place] [address] MR#: [id number] Acct: [id number] Name: KATHARINE CANO Rep #: [id number] : 1945 79 From: Debbie Remy MD Primary Care: Dr. César Merrill MD Status: REG CLI Referring Dr: Trey Malagon NP PROGRAM ADVISOR-C Sex: M C Stress Test Report Date: 11/12/2024 Procedure: Pharmacologic stress nuclear imaging study Indications: Coronary artery disease Consent: Per the patient Procedure: The patient underwent pharmacologic (Regadenoson 0.4mg ) evaluation with a peak heart rate of 90 beats per minute (64%predicted maximal heart rate) and a peak blood pressure of 152/70 mmHg. The baseline ECG demonstrated sinus rhythm. The peak pharmacologic ECG not show any ischemic changes. There were no cardiac dysrhythmias pretest, during pharmacologic infusion, or recovery. There was no complaint of chest discomfort during pharmacologic infusion or recovery. The patient was injected with 14.2 millicuries of technetium 99m Cardiolite and subsequently rest SPECT Cardiolite nuclear imaging was obtained in the horizontal long, vertical long, and short axis views. The patient underwent pharmacologic (Regadenoson) evaluation. The patient was injected with 45.0 millicuries of technetium 99m Cardiolite and subsequently stress SPECT Cardiolite nuclear imaging was obtained in the horizontal long, vertical long, and short axis views. A gated Cardiolite study at peak stress was obtained. The examination was stopped secondary to completion of protocol. Rest and stress SPECT Cardiolite nuclear imaging status post realignment, normalization, and attenuation correction demonstrate mildly reduced perfusion of the basal inferior and lateral wall post pharmacological stress. There is end systolic thickening and brightening. The gated Cardiolite study demonstrates myocardial thickening and inward wall motion. The reported LVEF is 60%. Impression: 1. Pharmacologic (Regadenoson) evaluation 2. Peak pharmacologic ECG with no ischemic changes. 3. There were no cardiac dysrhythmias pretest, during pharmacologic infusion, or recovery. 5. Mildly reduced reversible perfusion of the basal inferior and lateral wall, suggestive of mild ischemia. 6. The gated Cardiolite study reports an LVEF of 60%. This note was generated with [employer] dictation software. It may contain incorrect words, spelling, and punctuation that were not noted in checking the note before signing. 11/12/24 1211 Date Debbie Remy MD CC: CONRADO Malagon; Dr. César Merrill MD Date Dictated: 11/12/24 120 Date Transcribed: 11/12/241208 Testing Lead: AR Signed Normal [facility] Type AND Screen - PAT ONLYon 11-12-2024 ABO and Rh group Nom (Bld) Blood group A Rh(D) positive Normal [facility] Comment on above: Order Comment: Surge ry Date: 11/18/24 Reason for Laboratory Test PREOP [id number] N/A N N S BILAT FEMEROL ENDARTERECTOMY FEM-FEM BYPASS Performed By: #### L 500.2500, L100.0500, BTSPAT #### [facility] [address] [place], [address] Cardiology Visit Reporton Cardiology Visit Report [facility] [address] [place] [address] OFFICE VISIT Date of Service: 10/29/24 MR#: [id number] Acct: [id number] Name: JEROMEKATHARINE Rep #: [id number] : 1945 Provider: CONRADO moyer Age/Sex: 79/M Location: [facility] Status: Signed HPI HPI History of Present Illness Details: Patient is a very pleasant 79-year-old Episcopal white male that comes in today for [...] Intake Visit Reasons: Surgical Clearance (See Note) Apprentice Cosmetologist Required: No Accompanied by: Is patient in pain?: No Allergies rosuvastatin (From ShieldEffect) Allergy (Intermediate, Verified 10/29/24 10:35) Rash Medications [...] artery ( 08/01/97) Atherosclerotic heart disease of [place] coronary artery without angina pectoris Diabetes mellitus [...] SOB orthopne (more content not included)... Normal [facility] MR/BMS.BVTeto 10-09-2024 MR/BMS.BVS [facility] Vascular Surgery [address] [place] [address] OFFICE VISIT Date of Service: 10/09/24 MR#: [id number] Acct: [id number] Name: KATHARINE CANO Rep #: [id number] : 1945 Provider: Dr. Lenny Taylor MD Age/Sex: 79/M Location: [facility] Status: Signed Intake Vital Signs 07/10/24 09:30 [...] artery ( 08/01/97) Atherosclerotic heart disease of [place] coronary artery without angina pectoris Diabetes mellitus [...] No emphysema (more content not included)... Normal [facility] CREATININE FINGERSTICKon Creatinine [Mass/Vol] 1.4 mg/dL High 0.70-1.30 [facility] Comment on above: Performed By: #### L 9100.0200 #### [facility] [address] [place], [address] GFR/1.73 sq M.predicted among non-blacks MDRD (S/P/Bld) [Vol rate/Area] 51.0000 mL/min/{1.73_m2} Low >60 [facility] Comment on above: Performed By: #### L 9100.0200 #### [facility] [address] [facility] [place], [address] CTA Abd w/Runoff W/WO Contra ston 10-03-2024 CTA Abd w/Runoff W/WO Contrast [facility] Imaging Services [address] [place] [address] CTA Abd w/Runoff W/WO Contrast MR#: [id number] Acct: [id number] Name: KATHARINE CANO Rep #: [id number] : 1945 M 79 From: Gloria weiner MD PCP: Dr. César Merrill MD Status: REG CLI Study: CTA Abd w/Runoff W/WO Contrast Date of Exam: 0 10/03/24 Exam# [id number] Ordering Dr: Sloane Rush PROCEDURE: CTA ABD [...] Contrast IMPRESSION: Atherosclerosis. Multifocal stenosis. [facility] CC: STEPHEN Toth; Dr. César Merrill MD Testing Lead: Signed Normal [facility] Creatinine measurement at dsideOrdered By: Sloane Rush on 10-03-2024 Creatinine [Mass/Vol] 1.4 mg/dL High 0.70-1.30 [facility] EGFROrdered By: Sloane Rush on 10-03-2024 GFR/1.73 sq M.predicted among non-blacks MDRD (S/P/Bld) [Vol rate/Area] 51.0000 mL/min/{1.73_m2} Low >60 [facility] MR/BMS.BVSon 08-29-2024 MR/BMS.BVS [facility] Vascular Surgery [address] [place] [address] OFFICE VISIT Date of Service: 08/29/24 MR#: [id number] Acct: [id number] Name: KATHARINE CANO Rep #: [id number] : 1945 Provider: STEPHEN Toth Age/Sex: 79/M Location: [facility] Status: Signed Intake Vital Signs 07/10/24 09:30 [...] Reasons: Severe PVD Chief Complaint: Establish Care Apprentice Cosmetologist Required: No Is patient in pain?: Yes [...] artery ( 08/01/97) Atherosclerotic heart disease of [place] coronary artery without angina pectoris Diabetes mellitus [...] thyroid canc (more content not included)... Normal [facility] PVR LEG JON VAS LABon 2024 P[facility] LEG J[facility]AS LAB Non-Invasive Vascula r Laboratory [facility] Lower Extremity Arterial Physiology Study Bilateral/Complete Date [...] physician: Diego Rice MD, [employer] Final CC [employer] Image : [id number] amicsSISUID See Link below for Image Normal [facility] [place] 07-31-2024 [facility] Telephone (FAMPWS) JEROME,ELI Kamar ([id number]) 1945 M Date Time Provider Department 07/31/24 [facility] During your visit today, we recorded the [...] Status:Closed by JEANNETTE OLIVEIRA on 08/05/24 Normal [facility] ALBUMIN/CREATININE RATIO, UR INEon 07-24-2024 Albumin DL <= 20 mg/L (U) [Mass/Vol] mg/dL Normal [facility] Comment on above: Order Comment: Speci men Type: URINE SPECIMENOrdering Facility: [facility] Address: [address] [place] [address] Performed By: #### U ACR ####[facility] LABCLIA [id number] [place] [address] [place] Albumin/Creatinine (U) [Mass ratio] <8 Normal <30 [facility] Comment on above: Order Comment: Speci men Type: URINE SPECIMENOrdering Facility: [facility] Address: [address] [place] [address] Result Comment: Adul t Male and Female Nephrotic Criteria: <30 mg/g is considered normal to mildly increased 30-300 mg/g is considered moderately increased >300 mg/g is considered severely increased KDIGO. (2013). KDIGO 2012 Clinical Practice Guideline for the Evaluation and Management of Chronic Kidney Disease. Official Journal of the International Society of Nephrology, 3(1), 1-150. Performed By: #### U ACR ####[facility] LABCLIA [id number] [place] [address] [place] Creatinine (U) [Mass/Vol] 155.2 mg/dL Normal 20.0-300.0 [facility] Comment on above: Order Comment: Speci men Type: URINE SPECIMENOrdering Facility: [facility] Address: [address] [place] [address] Performed By: #### U ACR ####[facility] LABCLIA [id number] [place] [address] [place] CBC W Auto Differential pane l (Bld)on 07-24-2024 Basophils (Bld) [#/Vol] 0.04 10*3/uL [facility] Basophils/100 WBC (Bld) 0.8 % [facility] Differential cell count method Nom (Bld) Auto [facility] Eosinophils (Bld) [#/Vol] 0.15 10*3/uL [facility] Eosinophils/100 WBC (Bld) 3.1 % [facility] Erythrocyte distribution width (RBC) [Ratio] 13.5 % 11.5 - 15.0 % [facility] Hematocrit (Bld) [Volume fraction] 42.7 % 39.0 - 51.0 % [facility] Hemoglobin (Bld) [Mass/Vol] 14.1 g/dL 13.0 - 17.0 g/dL [facility] Immature granulocytes (Bld) [#/Vol] [facility] Immature granulocytes/100 WBC (Bld) 0 % [facility] Interpretation and review of laboratory results Abnormal [facility] Lymphocytes (Bld) [#/Vol] 2.17 10*3/uL [facility] Lymphocytes/100 WBC (Bld) 45.5 % [facility] MCH (RBC) [Entitic mass] 33.3 pg 26.0 - 34.0 pg [facility] MCHC (RBC) [Mass/Vol] 33 g/dL 30.5 - 36.0 g/dL [facility] MCV (RBC) [Entitic vol] 100.9 fL High 80.0 - 100.0 fL [facility] Monocytes (Bld) [#/Vol] 0.56 10*3/uL [facility] Monocytes/100 WBC (Bld) 11.7 % [facility] Neutrophils (Bld) [#/Vol] 1.85 10*3/uL [facility] Neutrophils/100 WBC (Bld) 38.9 % [facility] Nucleated RBC (Bld) [#/Vol] [facility] Nucleated RBC/100 WBC (Bld) [Ratio] 0 % /100 WBC [facility] Platelet mean volume (Bld) [Entitic vol] 9.5 fL 9.0 - 12.7 fL [facility] Platelets (Bld) [#/Vol] 232 10*3/uL [facility] RBC (Bld) [#/Vol] 4.23 10*6/uL 4.20 - 6.0 0 m/uL [facility] WBC (Bld) [#/Vol] 4.77 10*3/uL [facility] Basophils (Bld) [#/Vol] 0.04 10*3/uL Normal <0.11 [facility] Comment on above: Order Comment: Speci men Type: BLOOD SPECIMENOrdering Facility: [facility] Address: [address] [place] [address] Performed By: #### 5 7021-8 ####[facility] LABCLIA [id number] [address] OF [facility] Basophils/100 WBC (Bld) 0.8 % Normal [facility] Comment on above: Order Comment: Speci men Type: BLOOD SPECIMENOrdering Facility: [facility] Address: [address] [place] [address] Performed By: #### 5 7021-8 ####[facility] LABCLIA [id number] [address], [place] [address] [place] Differential cell count method Nom (Bld) Auto Normal [facility] Comment on above: Order Comment: Speci men Type: BLOOD SPECIMENOrdering Facility: [facility] Address: [address] [place] [address] Performed By: #### 5 7021-8 ####[facility] LABCLIA [id number] [address], [place] [address] [place] Eosinophils (Bld) [#/Vol] 0.15 10*3/uL Normal <0.46 [facility] Comment on above: Order Comment: Speci men Type: BLOOD SPECIMENOrdering Facility: [facility] Address: [address] [place] [address] Performed By: #### 5 7021-8 ####[facility] LABCLIA [id number] [address], [place] [address] [place] Eosinophils/100 WBC (Bld) 3.1 % Normal [facility] Comment on above: Order Comment: Speci men Type: BLOOD SPECIMENOrdering Facility: [facility] Address: [address] [place] [address] Performed By: #### 5 7021-8 ####[facility] LABCLIA [id number] [place] [address] [place] Erythrocyte distribution width (RBC) [Ratio] 13.5 % Normal 11.5-15.0 [facility] Comment on above: Order Comment: Speci men Type: BLOOD SPECIMENOrdering Facility: [facility] Address: [address] [place] [address] Performed By: #### 5 7021-8 ####[facility] LABCLIA [id number] [address], [facility] [place] Hematocrit (Bld) [Volume fraction] 42.7 % Normal 39.0-51.0 [facility] Comment on above: Order Comment: Speci men Type: BLOOD SPECIMENOrdering Facility: [facility] Address: [address] [place] [address] Performed By: #### 5 7021-8 ####[facility] LABCLIA [id number] [place] [address] [place] Hemoglobin (Bld) [Mass/Vol] 14.1 g/dL Normal 13.0-17.0 [facility] Comment on above: Order Comment: Speci men Type: BLOOD SPECIMENOrdering Facility: [facility] Address: [address] [place] [address] Performed By: #### 5 7021-8 ####[facility] LABCLIA [id number] [place] [address] [place] Immature granulocytes (Bld) [#/Vol] 10*3/uL Normal <0.10 [facility] Comment on above: Order Comment: Speci men Type: BLOOD SPECIMENOrdering Facility: [facility] Address: [address] [place] [address] Performed By: #### 5 7021-8 ####[facility] LABCLIA [id number] [place] [address] [place] Immature granulocytes/100 WBC (Bld) 0.0 % Normal [facility] Comment on above: Order Comment: Speci men Type: BLOOD SPECIMENOrdering Facility: [facility] Address: [address] [place] [address] Performed By: #### 5 7021-8 ####[facility] LABCLIA [id number] [place] [id number] [place] Lymphocytes (Bld) [#/Vol] 2.17 10*3/uL Normal 1.00-4.00 [facility] Comment on above: Order Comment: Speci men Type: BLOOD SPECIMENOrdering Facility: [facility] Address: [address] [place] [address] Performed By: #### 5 7021-8 ####[facility] LABCLIA [id number] [place] [address] [place] Lymphocytes/100 WBC (Bld) 45.5 % Normal [facility] Comment on above: Order Comment: Speci men Type: BLOOD SPECIMENOrdering Facility: [facility] Address: [address] [place] [address] Performed By: #### 5 7021-8 ####[facility] LABIA [id number] [place] [address] [place] MCH (RBC) [Entitic mass] 33.3 pg Normal 26.0-34.0 [facility] Comment on above: Order Comment: Speci men Type: BLOOD SPECIMENOrdering Facility: [facility] Address: [address] [place] [address] Performed By: #### 5 7021-8 ####[facility] LABIA [id number] [place] [address] [place] MCHC (RBC) [Mass/Vol] 33.0 g/dL Normal 30.5-36.0 [facility] Comment on above: Order Comment: Speci men Type: BLOOD SPECIMENOrdering Facility: [facility] Address: [address] [place] [address] Performed By: #### 5 7021-8 ####[facility] LABIA [id number] [place] [address] [place] MCV (RBC) [Entitic vol] 100.9 fL High 80.0-100.0 [facility] Comment on above: Order Comment: Speci men Type: BLOOD SPECIMENOrdering Facility: [facility] Address: [address] [place] [address] Performed By: #### 5 7021-8 ####[facility] LABIA [id number] [place] [address] [place] Monocytes (Bld) [#/Vol] 0.56 10*3/uL Normal <0.87 [facility] Comment on above: Order Comment: Speci men Type: BLOOD SPECIMENOrdering Facility: [facility] Address: [address] [place] [address] Performed By: #### 5 7021-8 ####[facility] LABCLIA [id number] [place] [id number] [place] Monocytes/100 WBC (Bld) 11.7 % Normal [facility] Comment on above: Order Comment: Speci men Type: BLOOD SPECIMENOrdering Facility: [facility] Address: [address] [place] [address] Performed By: #### 5 7021-8 ####[facility] LABIA [id number] [place] [address] [place] Neutrophils (Bld) [#/Vol] 1.85 10*3/uL Normal 1.45-7.50 [facility] Comment on above: Order Comment: Speci men Type: BLOOD SPECIMENOrdering Facility: [facility] Address: [address] [place] [address] Performed By: #### 5 7021-8 ####[facility] LABCLIA [id number] [place] [address] [place] Neutrophils/100 WBC (Bld) 38.9 % Normal [facility] Comment on above: Order Comment: Speci men Type: BLOOD SPECIMENOrdering Facility: [facility] Address: [address] [place] [address] Performed By: #### 5 7021-8 ####[facility] LABCLIA [id number] [place] [id number] [place] Nucleated RBC (Bld) [#/Vol] 10*3/uL Normal <0.01 [facility] Comment on above: Order Comment: Speci men Type: BLOOD SPECIMENOrdering Facility: [facility] Address: [address] [place] [address] Performed By: #### 5 7021-8 ####[facility] LABCLIA [id number] [address] [place] [address] [place] Nucleated RBC/100 WBC (Bld) [Ratio] 0.0 /100 WBC Normal [facility] Comment on above: Order Comment: Speci men Type: BLOOD SPECIMENOrdering Facility: [facility] Address: [address] [place] [address] Performed By: #### 5 7021-8 ####[facility] LABCLIA [id number] [address] [place] [address] [place] Platelet mean volume (Bld) [Entitic vol] 9.5 fL Normal 9.0-12.7 [facility] Comment on above: Order Comment: Speci men Type: BLOOD SPECIMENOrdering Facility: [facility] Address: [address] [place] [address] Performed By: #### 5 7021-8 ####[facility] LABIA [id number] [address], [place] [address] [place] Platelets (Bld) [#/Vol] 232 10*3/uL Normal 150-400 [facility] Comment on above: Order Comment: Speci men Type: BLOOD SPECIMENOrdering Facility: [facility] Address: [address] [place] [address] Performed By: #### 5 7021-8 ####[facility] LABIA [id number] [address] [place] [address] [place] RBC (Bld) [#/Vol] 4.23 10*6/uL Normal 4.20-6.00 [facility] Comment on above: Order Comment: Speci men Type: BLOOD SPECIMENOrdering Facility: [facility] Address: [address] [place] [address] Performed By: #### 5 7021-8 ####[facility] LABCLIA [id number] [address] [place] [address] [place] WBC (Bld) [#/Vol] 4.77 10*3/uL Normal 3.70-11.00 [facility] Comment on above: Order Comment: Speci men Type: BLOOD SPECIMENOrdering Facility: [facility] Address: [address] [place] [address] Performed By: #### 5 7021-8 ####[facility] LABCLIA [id number] [address] [facility] CNOVon 07-24-2024 CNOV Office Visit (FAMPWS ) JEROME,ELI Kamar ([id number]) 1945 M Date Time Provider Department 07/24/24 8:40 AM [facility] During your visit today, we recorded the following information about you: Pulse Blood pressure Weight Height 60/minute 124/54 103 kg 1.651 m César Merrill MD 07/24/2024 8:53 AM Addendum Please bring in copies of your power of regulatory attorney for health care and living will. Please get back on the B12 1000 mcg 1.5 tabs a day. César Merrill MD 07/24/2024 6:43 PM Signed Chief Complaint Patient presents with: Physical HPI Katharine Galvin Jerome is a 79 year old male who [...] cramps ate (more content not included)... Normal [facility] Cobalamin (Vitamin B12) [Mas s/Vol]on 07-24-2024 Interpretation and review of laboratory results Normal [facility] Comprehensive metabolic 2000 panelon 07-24-2024 Albumin [Mass/Vol] 4.1 g/dL 3.9 - 4.9 g/dL [facility] ALP [Catalytic activity/Vol] 84 U/L 38 - 113 U/L [facility] ALT [Catalytic activity/Vol] 12 U/L 10 - 54 U/L [facility] Anion gap [Moles/Vol] 12 mmol/L 8 - 15 mmol/L [facility] AST [Catalytic activity/Vol] 20 U/L 14 - 40 U/L [facility] Bilirubin [Mass/Vol] 0.4 mg/dL 0.2 - 1 .3 mg/dL [facility] Calcium [Mass/Vol] 9.7 mg/dL 8.5 - 10. 2 mg/dL [facility] Chloride [Moles/Vol] 103 mmol/L 98 - 10 7 mmol/L [facility] CO2 [Moles/Vol] 24 mmol/L 22 - 30 mmol/L [facility] Creatinine [Mass/Vol] 1.36 mg/dL High 0.73 - 1.22 mg/dL [facility] GFR/1.73 sq M.predicted among non-blacks MDRD (S/P/Bld) [Vol rate/Area] 53 mL/min/{1.73_m2} Low - PINF [facility] Comment on above: Estimated Glomerular Filtration Rate [...] 154 mg/dL High 74 - 99 mg/dL [facility] Comment on above: The [place] Diab[employer] s Association (ADA) provides guidance for [...] Standards of Medical Care in Diabetes 2016, [place] [employer]. Diabetes Care. 2016.39(Suppl 1). Potassium [Moles/Vol] 4.4 mmol/L 3.7 - 5.1 mmol/L [facility] Protein [Mass/Vol] 7.9 g/dL 6.3 - 8.0 g/dL [facility] Sodium [Moles/Vol] 139 mmol/L 136 - 144 mmol/L [facility] Urea nitrogen [Mass/Vol] 21 mg/dL 9 - 24 mg/dL [facility] Albumin [Mass/Vol] 4.1 g/dL Normal 3.9-4.9 [facility] Comment on above: Order Comment: Speci men Type: BLOOD SPECIMENOrdering Facility: [facility] Address: [address] [place] [address] Performed By: #### 2 4323-8, LIPNF, 2131-12 ####[facility] LABCLIA [id number] [place] [address] [place] ALP [Catalytic activity/Vol] 84 U/L Normal 38-113 [facility] Comment on above: Order Comment: Speci men Type: BLOOD SPECIMENOrdering Facility: [facility] Address: [address] [place] [address] Performed By: #### 2 4323-8, LIPNF, 2131-12 ####[facility] LABCLIA [id number] [place] [address] [place] ALT [Catalytic activity/Vol] 12 U/L Normal 10-54 [facility] Comment on above: Order Comment: Speci men Type: BLOOD SPECIMENOrdering Facility: [facility] Address: [address] [place] [address] Performed By: #### 2 4323-8, LIPNF, 2131-12 ####[facility] LABCLIA [id number] [address] [address] [place] Anion gap [Moles/Vol] 12 mmol/L Normal 8-15 [facility] Comment on above: Order Comment: Speci men Type: BLOOD SPECIMENOrdering Facility: [facility] Address: [address] [place] [address] Performed By: #### 2 4323-8, LIPNF, 2131-12 ####[facility] LABCLIA [id number] [place] [id number] [place] AST [Catalytic activity/Vol] 20 U/L Normal 14-40 [facility] Comment on above: Order Comment: Speci men Type: BLOOD SPECIMENOrdering Facility: [facility] Address: [address] [place] [address] Performed By: #### 2 4323-8, LIPNF, 2131-12 ####[facility] LABCLIA [id number] [place] [id number] [place] Bilirubin [Mass/Vol] 0.4 mg/dL Normal 0.2-1.3 [facility] Comment on above: Order Comment: Speci men Type: BLOOD SPECIMENOrdering Facility: [facility] Address: [address] [place] [address] Performed By: #### 2 432-8, LIPNF, 2131-12 ####[facility] LABCLIA [id number] [place] [address] [place] Calcium [Mass/Vol] 9.7 mg/dL Normal 8.5-10.2 [facility] Comment on above: Order Comment: Speci men Type: BLOOD SPECIMENOrdering Facility: [facility] Address: [address] [place] [address] Performed By: #### 2 4323-8, LIPNF, 2131-12 ####[facility] LABCLIA [id number] [place] [id number] [place] Chloride [Moles/Vol] 103 mmol/L Normal 98-107 [facility] Comment on above: Order Comment: Speci men Type: BLOOD SPECIMENOrdering Facility: [facility] Address: [address] [place] [address] Performed By: #### 2 4323-8, LIPNF, 2131-12 ####[facility] LABCLIA [id number] [address] [address] [place] CO2 [Moles/Vol] 24 mmol/L Normal 22-30 [facility] Comment on above: Order Comment: Speci marti Type: BLOOD SPECIMENOrdering Facility: [facility] Address: [address] [place] [address] Performed By: #### 2 4323-8, BERNADINE, 2131-12 ####[facility] LABCLIA [id number] [place] [address] [place] Creatinine [Mass/Vol] 1.36 mg/dL High 0.73-1.22 [facility] Comment on above: Order Comment: Speci men Type: BLOOD SPECIMENOrdering Facility: [facility] Address: [address] [place] [address] Performed By: #### 2 4323-8, BERNADINE, 2131-12 ####[facility] LABCLIA [id number] [place] [address] [place] Creatinine and Glomerular filtration rate.predicted panel (S/P/Bld) 53 mL/min/1.73m??? Low >=60 [facility] Comment on above: Order Comment: Lucho kidd Type: BLOOD SPECIMENOrdering Facility: [facility] Address: [address] [place] [address] Result Comment: Laurie mated Glomerular Filtration Rate [...] actual GFR. Performed By: #### 2 4323-8, BERNADINE, 2131-12 ####[facility] LABCLIA [id number] [place] [id number] [place] Glucose [Mass/Vol] 154 mg/dL High 74-99 [facility] Comment on above: Order Comment: Speci men Type: BLOOD SPECIMENOrdering Facility: [facility] Address: [address] [id number] Result Comment: The [place] Diabetes Association (ADA) provides guidance for cutoff [...] Standards of Medical Care in Diabetes 2016, [place] Diabetes Association. Diabetes Care. 2016.39(Suppl 1). Performed By: #### 2 4323-8, BERNADINE, 2131-12 ####[facility] LABCLIA [id number] [place] [address] [place] Potassium [Moles/Vol] 4.4 mmol/L Normal 3.7-5.1 [facility] Comment on above: Order Comment: Speci men Type: BLOOD SPECIMENOrdering Facility: [facility] Address: [address] [place] [address] Performed By: #### 2 432-8, BERNADINE, 2131-12 ####[facility] LABCLIA [id number] [place] [address] [place] Protein [Mass/Vol] 7.9 g/dL Normal 6.3-8.0 [facility] Comment on above: Order Comment: Speci men Type: BLOOD SPECIMENOrdering Facility: [facility] Address: [address] [id number] Performed By: #### 2 432-8, LIPTHOMAS, 2131-12 ####[facility] LABCLIA [id number] [address] [address] [place] Sodium [Moles/Vol] 139 mmol/L Normal 136-144 [facility] Comment on above: Order Comment: Speci men Type: BLOOD SPECIMENOrdering Facility: [facility] Address: [address] [place] [address] Performed By: #### 2 4323-8, BERNADINE, 2131-12 ####[facility] LABCLIA [id number] [place] [address] [place] Urea nitrogen [Mass/Vol] 21 mg/dL Normal 9-24 [facility] Comment on above: Order Comment: Speci men Type: BLOOD SPECIMENOrdering Facility: [facility] Address: [address] [place] [address] Performed By: #### 2 4323-8, LIPTHOMAS, 2131-12 ####[facility] LABCLIA [id number] [address] [place] HbA1c (Bld)on 07-24-2024 Average glucose Estimated from glycated hemoglobin (Bld) [Mass/Vol] 171 mg/dL [facility] Comment on above: eAG: (Estimated aver age glucose) is a calculated value from HgbA1c and is technical service representative of the average blood glucose level in the last 2-3 month period. HbA1c (Bld) [Mass fraction] 7.6 % High 4.3 - 5.6 % [facility] Comment on above: [place] Diabetes As sociation guidelines indicate that patients with HgbA1c in the range 5.7-6.4% are at increased risk for development of diabetes, and intervention by lifestyle modification may be beneficial. HgbA1c greater or equal to 6.5% is considered diagnostic of diabetes. Interpretation and review of laboratory results Abnormal [facility] Average glucose Estimated from glycated hemoglobin (Bld) [Mass/Vol] 171 mg/dL Normal [facility] Comment on above: Order Comment: Speci men Type: BLOOD SPECIMENOrdering Facility: [facility] Address: [address] [place] [address] Result Comment: eAG: (Estimated average glucose) is a calculated value from HgbA1c and is technical service representative of the average blood glucose level in the last 2-3 month period. Performed By: #### 5 5454-3 ####[facility] LABCLIA [id number] [place] [address] [place] HbA1c (Bld) [Mass fraction] 7.6 % High 4.3-5.6 [facility] Comment on above: Order Comment: Speci men Type: BLOOD SPECIMENOrdering Facility: [facility] Address: [address] [facility] [place] [address] Result Comment: Amer [place] Diabetes Association guidelines indicate that patients with HgbA1c in the range 5.7-6.4% are at increased risk for development of diabetes, and intervention by lifestyle modification may be beneficial. HgbA1c greater or equal to 6.5% is considered diagnostic of diabetes. Performed By: #### 5 5454-3 ####[facility] LABCLIA [id number] [address] [place] LIPID PANEL, NONFASTINGon Cholesterol [Mass/Vol] 213 mg/dL High NINF - 200 mg/dL [facility] Comment on above: <200 mg/dL, Desirabl e 200-239 mg/dL, Borderline high >239 mg/dL, High HDL Cholesterol, Nonfasting 44 mg/dL 39 - PINF mg/dL [facility] Comment on above: 40-59 mg/dL, Accepta ble >59 mg/dL, High: Negative risk factor for coronary heart disease <40 mg/dL, Low: Positive risk factor for coronary heart disease LDL Cholesterol, Nonfasting 133 mg/dL High NINF - 100 mg/dL [facility] Comment on above: <100 mg/dL, Optimal 100-129 mg/dL, Near optimal/above optimal 130-159 mg/dL, Borderline high 160-189 mg/dL, High >189 mg/dL, Very high Secondary prevention optimal LDL Cholesterol levels are recommended to be < 70 mg/dL LDL/HDL Ratio, Nonfasting 3.02 mg/dL High NINF - 2.54 mg/dL [facility] Comment on above: Reference: 1. National Cholesterol Education Program ATP III Guideline At-A-Glance Quick Desk Reference: National Heart, Lung, and Blood [place]. National Institutes of Health. 2001: NIH Publication No. 01-3305. 2. An International Atherosclerosis Society position paper: global recommendations for the management of dyslipidemia: executive summary, Atherosclerosis. 2014: 232(2):410-413. Non HDL Cholesterol, Nonfasting 169 mg/dL High NINF - 130 mg/dL [facility] Comment on above: <130 mg/dL, Optimal 130-159 mg/dL, Near optimal/above optimal 160-189 mg/dL, Borderline high 190-219 mg/dL, High >219 mg/dL, Very high Secondary prevention optimal non HDL Cholesterol levels are recommended to be <100 mg/dL Total Chol/HDL Ratio, Nonfasting 4.84 mg/dL NINF - 5.10 mg/dL [facility] Triglycerides, Nonfasting 182 mg/dL High NINF - 150 mg/dL [facility] Comment on above: <150 mg/dL, Normal 150-199 mg/dL, Borderline high 200-499 mg/dL, High >499 mg/dL, Very high VLDL Cholesterol, Nonfasting 36 mg/dL High NINF - 30 mg/dL [facility] Cholesterol [Mass/Vol] 213 mg/dL High <200 Cl [facility] Comment on above: Order Comment: Lucho men Type: BLOOD SPECIMENOrdering Facility: [facility] Address: [address] [place] [address] Result Comment: <200 mg/dL, Desirable 200-239 mg/dL, Borderline high >239 mg/dL, High Performed By: #### 2 4323-8, LIPTHOMAS, 2131-12 ####[facility] LABCLIA [id number] [place] [address] [place] HDL CHOLESTEROL, NF 44 mg/dL Normal >39 [facility] Comment on above: Order Comment: Lucho men Type: BLOOD SPECIMENOrdering Facility: [facility] Address: [address] [place] [address] Result Comment: 40-5 9 mg/dL, Acceptable >59 mg/dL, High: Negative risk factor for coronary heart disease <40 mg/dL, Low: Positive risk factor for coronary heart disease Performed By: #### 2 4323-8, LIPNF, 2131-12 ####[facility] LABCLIA [id number] [place] [address] [place] LDL CHOLESTEROL, NF 133 mg/dL High <100 [facility] Comment on above: Order Comment: Speci men Type: BLOOD SPECIMENOrdering Facility: [facility] Address: [address] [place] [address] Result Comment: <100 mg/dL, Optimal 100-129 mg/dL, Near optimal/above optimal 130-159 mg/dL, Borderline high 160-189 mg/dL, High >189 mg/dL, Very high Secondary prevention optimal LDL Cholesterol levels are recommended to be < 70 mg/dL Performed By: #### 2 4323-8, LIPNF, 2131-12 ####[facility] LABCLIA [id number] [address] [facility] LDL/HDL RATIO, NF 3.02 mg/dL High <2.54 [facility] Comment on above: Order Comment: Lucho men Type: BLOOD SPECIMENOrdering Facility: [facility] Address: [address] [place] [address] Result Comment: Refe rence: 1. National Cholesterol Education Program ATP III Guideline At-A-Glance Quick Desk Reference: National Heart, Lung, and Blood Donaldson. National Institutes of Health. 2001: NIH Publication No. 01-3305. 2. An International Atherosclerosis Society position paper: global recommendations for the management of dyslipidemia: executive summary, Atherosclerosis. 2014: 232(2):410-413. Performed By: #### 2 4323-8, LIPNF, 2131-12 ####[facility] LABCLIA [id number] [address] [place] NON HDL CHOL, NF 169 mg/dL High <130 [facility] Comment on above: Order Comment: Randolphi men Type: BLOOD SPECIMENOrdering Facility: [facility] Address: [address] [place] [address] Result Comment: <130 mg/dL, Optimal 130-159 mg/dL, Near optimal/above optimal 160-189 mg/dL, Borderline high 190-219 mg/dL, High >219 mg/dL, Very high Secondary prevention optimal non HDL Cholesterol levels are recommended to be <100 mg/dL Performed By: #### 2 4323-8, LIPNF, 2131-12 ####[facility] LABCLIA [id number] [place] [address] [place] T CHOL/HDL RATIO NF 4.84 mg/dL Normal <5.10 [facility] Comment on above: Order Comment: Speci men Type: BLOOD SPECIMENOrdering Facility: [facility] Address: [address] [place] [address] Performed By: #### 2 4323-8, LIPNF, 2131-12 ####[facility] LABCLIA [id number] [place] [address] [place] TRIGLYCERIDES, NF 182 mg/dL High <150 [facility] Comment on above: Order Comment: Speci men Type: BLOOD SPECIMENOrdering Facility: [facility] Address: [address] [place] [address] Result Comment: <150 mg/dL, Normal 150-199 mg/dL, Borderline high 200-499 mg/dL, High >499 mg/dL, Very high Performed By: #### 2 4323-8, LIPNF, 2131-12 ####[facility] LABCLIA [id number] [place] [address] [place] VLDL CHOLESTEROL, NF 36 mg/dL High <30 [facility] Comment on above: Order Comment: Speci men Type: BLOOD SPECIMENOrdering Facility: [facility] Address: [address] [place] [address] Performed By: #### 2 4323-8, LIPNF, 2131-12 ####[facility] LABCLIA [id number] [place] [address] [place] No Panel Informationon 07-24 Interpretation and review of laboratory results Abnormal [facility] Urinalysis complete panel (U )on 07-24-2024 Bacteria LM.HPF (Urine sed) [#/Area] Negative Negative /HPF [facility] Bilirubin Ql (U) Negative Negative [facility] Clarity (Unsp spec) Clear Clear [facility] Color (U) Yellow Yellow [facility] Epithelial cells LM.HPF (Urine sed) [#/Area] None Seen /HPF [facility] Glucose Test strip (U) [Mass/Vol] Negative Negative [facility] Hemoglobin Ql (U) Negative Negative [facility] Hyaline casts (Urine sed) [#/Area] 4-10 /LPF Abnormal 0 /LPF [facility] Interpretation and review of laboratory results Abnormal [facility] Ketones Ql (U) Negative Negative [facility] Leukocyte esterase Test strip Ql (U) Negative Negative [facility] Nitrite Ql (U) Negative Negative [facility] pH (U) 5.5 [pH] NINF - 8.5 [facility] Protein (U) [Mass/Vol] Negative Negative [facility] RBC LM.HPF (Urine sed) [#/Area] 0-2 /HPF 0-2 /HPF [facility] Specific gravity (U) [Rel density] 1.018 1.005 - 1.030 [facility] Urobilinogen Ql (U) 0.2 EU/dL 0.2-1.0 EU/dL [facility] WBC LM.HPF (Urine sed) [#/Area] 0-5 /HPF 0-5 /HPF [facility] This test was developed and its performance characteristics determined by [facility]'s [facility] Pathology and Laboratory Medicine [place] ([facility]). It has not been cleared or approved by the FDA. -[facility] is regulated under CLIA as qualified to perform high-complexity testing. This test is used for clinical purposes. It should not be regarded as investigational or for research. [facility] Bacteria LM.HPF (Urine sed) [#/Area] Negative Normal Negative [facility] Comment on above: Order Comment: Speci men Type: URINE SPECIMENOrdering Facility: [facility] Address: [address] [place] [address] Performed By: #### 2 4356-8 ####[facility] LABCLIA [id number] [place] [address] [place] Bilirubin Ql (U) Negative Normal Negative [facility] Comment on above: Order Comment: Speci men Type: URINE SPECIMENOrdering Facility: [facility] Address: [address] [place] [address] Performed By: #### 2 4356-8 ####[facility] LABCLIA [id number] [place] [address] [place] Clarity (Unsp spec) Clear Normal Clear [facility] Comment on above: Order Comment: Speci men Type: URINE SPECIMENOrdering Facility: [facility] Address: [address] [place] [address] Performed By: #### 2 4356-8 ####[facility] LABCLIA [id number] [place] [address] [place] Color (U) Yellow Normal Yellow [facility] Comment on above: Order Comment: Speci men Type: URINE SPECIMENOrdering Facility: [facility] Address: [address] [place] [address] Performed By: #### 2 4356-8 ####[facility] LABCLIA [id number] [place] [address] [place] Epithelial cells LM.HPF (Urine sed) [#/Area] None Seen Normal [facility] Comment on above: Order Comment: Speci men Type: URINE SPECIMENOrdering Facility: [facility] Address: [address] [place] [address] Performed By: #### 2 4356-8 ####[facility] LABCLIA [id number] [place] [address] [place] Glucose Test strip (U) [Mass/Vol] Negative Normal Negative [facility] Comment on above: Order Comment: Speci men Type: URINE SPECIMENOrdering Facility: [facility] Address: [address] [place] [address] Performed By: #### 2 4356-8 ####[facility] LABCLIA [id number] [place] [id number] [place] Hemoglobin Ql (U) Negative Normal Negative [facility] Comment on above: Order Comment: Speci men Type: URINE SPECIMENOrdering Facility: [facility] Address: [address] [place] [address] Performed By: #### 2 4356-8 ####[facility] LABCLIA [id number] [address] [place] [address] [place] Hyaline casts (Urine sed) [#/Area] 4-10 /LPF Abnormal 0 /LPF [facility] Comment on above: Order Comment: Speci men Type: URINE SPECIMENOrdering Facility: [facility] Address: [address] [place] [address] Performed By: #### 2 4356-8 ####[facility] LABCLIA [id number] [address] [place] [address] [place] Ketones Ql (U) Negative Normal Negative [facility] Comment on above: Order Comment: Speci men Type: URINE SPECIMENOrdering Facility: [facility] Address: [address] [place] [address] Performed By: #### 2 4356-8 ####[facility] LABCLIA [id number] [address], [facility] [place] Leukocyte esterase Test strip Ql (U) Negative Normal Negative [facility] Comment on above: Order Comment: Speci men Type: URINE SPECIMENOrdering Facility: [facility] Address: [address] [place] [address] Performed By: #### 2 4356-8 ####[facility] LABCLIA [id number] [address] [place] [address] [place] Nitrite Ql (U) Negative Normal Negative [facility] Comment on above: Order Comment: Speci men Type: URINE SPECIMENOrdering Facility: [facility] Address: [address] [place], [place] [address] Performed By: #### 2 4356-8 ####[facility] LABCLIA [id number] [place] [address] [place] pH (U) 5.5 [pH] Normal <8.5 [facility] Comment on above: Order Comment: Speci men Type: URINE SPECIMENOrdering Facility: [facility] Address: [address] [place] [address] Performed By: #### 2 4356-8 ####[facility] LABIA [id number] [place] [address] [place] Protein (U) [Mass/Vol] Negative Normal Negative Cl [facility] Comment on above: Order Comment: Speci men Type: URINE SPECIMENOrdering Facility: [facility] Address: [address] [place] [address] Performed By: #### 2 4356-8 ####[facility] LABIA [id number] [place] [address] [place] RBC LM.HPF (Urine sed) [#/Area] 0-2 /HPF Normal 0-2 /HPF [facility] Comment on above: Order Comment: Speci men Type: URINE SPECIMENOrdering Facility: [facility] Address: [address] [place] [address] Performed By: #### 2 4356-8 ####[facility] LABIA [id number] [place] [address] [place] Specific gravity (U) [Rel density] 1.018 Normal 1.005-1.030 [facility] Comment on above: Order Comment: Speci men Type: URINE SPECIMENOrdering Facility: [facility] Address: [address] [place] [address] Performed By: #### 2 4356-8 ####[facility] LABIA [id number] [place] [address] [place] Urobilinogen Ql (U) 0.2 EU/dL Normal 0.2-1.0 EU/dL [facility] Comment on above: Order Comment: Speci men Type: URINE SPECIMENOrdering Facility: [facility] Address: [address] [place] [address] Performed By: #### 2 4356-8 ####[facility] LABIA [id number] [place] [address] [place] WBC LM.HPF (Urine sed) [#/Area] 0-5 /HPF Normal 0-5 /HPF [facility] Comment on above: Order Comment: Speci men Type: URINE SPECIMENOrdering Facility: [facility] Address: [address] [place] [address] Performed By: #### 2 4356-8 ####[facility] LABIA [id number] [place] [address] [place] VITAMIN B12on 07-24-2024 Cobalamin (Vitamin B12) [Mass/Vol] 529 pg/mL 232 - 1245 pg/mL [facility] Vit B12 SerPl-mCncon 025 Cobalamin (Vitamin B12) [Mass/Vol] 529 pg/mL Normal 232-1245 [facility] Comment on above: Order Comment: Speci men Type: BLOOD SPECIMENOrdering Facility: [facility] Address: [address] [place] [address] Performed By: #### 2 4323-8, LIPNF, 2132-9 ####[facility] LABIA [id number] [place] [id number] [place] CNPNon 07-18-2024 CNPN Telephone (RAMYWS) KATHARINE CANO ([id number]) 1945 M Date Time Provider Department 07/18/24 [facility] During your visit today, we recorded the following information about you: Zohreh Hughes RN 07/18/2024 12:19 PM Signed Love from [facility] pharmacy in [place] calling in for refills for pt. She states pt called in for refill on his Baclofen and Gabapentin. Per epic, last prescriptions for both of these were sent on 08/08/23 and were for 6 months total. Per Lvoe, last time pt had them filled was in 10/2023 for 90 day supply. Discussed all of pt's meds with Love and it appears pt is not taking his Glimipiride or Metformin as he received 90 day supplies of those meds 155 days ago. Pt is taking his Losartan/HCTZ, Atenolol, Simvastatin correctly. Atenolol and Simvastatin prescribed by [facility]. Pt is set up for a physical on 08/12 with Katarzyna Munson. Pt is Ep[employer] and needs financially cleared for appt. Attempted [...] B12 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] 08/16/2023 Encounter Status:Closed by DESIRAECÉSAR on 07/18/24 Normal [facility] Cardiology Visit Reporton Cardiology Visit Report [facility] [address] [place] [address] OFFICE VISIT Date of Service: 07/10/24 MR#: [id number] Acct: [id number] Name: KATHARINE CANO Rep #: [id number] : 1945 Provider: Dr. 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 Normal [facility] Cobalamin (Vitamin B12) [Mas s/Vol]on 02-14-2024 Interpretation and review of laboratory results Normal [facility] HbA1c (Bld)on 02-14-2024 Average glucose Estimated from glycated hemoglobin (Bld) [Mass/Vol] 140 mg/dL [facility] Comment on above: eAG: (Estimated aver age glucose) is a calculated value from HgbA1c and is technical service representative of the average blood glucose level in the last 2-3 month period. HbA1c (Bld) [Mass fraction] 6.5 % High 4.3 - 5.6 % [facility] Comment on above: [place] Diabetes As sociation guidelines indicate that patients with HgbA1c in the range 5.7-6.4% are at increased risk for development of diabetes, and intervention by lifestyle modification may be beneficial. HgbA1c greater or equal to 6.5% is considered diagnostic of diabetes. Interpretation and review of laboratory results Abnormal [facility] VITAMIN B12on 02-14-2024 Cobalamin (Vitamin B12) [Mass/Vol] 480 pg/mL 232 - 1245 pg/mL [facility] CNPNon 08-16-2023 CNPN Telephone ([facility]) KATHARINE CANO ( ) 1945 M Date Time Provider Department 08/16/23 CÉSAR MERRILL [facility] During your visit today, we recorded the [...] patient's results and provider's recommendations. Jeannette Oliveira, LEONEL 08/16/2023 10:38 AM Signed Patient's son Adelaida calls and notified of results and provider [...] 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] Order(s):VITAMIN B12 [SQB12] Order #: [id number] FUTURE COMPLETE BLOOD COUNT AND DIFFERENTIAL [SQCBCDIF] Order #: [id number] FUTURE Cyanocobalamin 1,000 mcg TbERTake 1 tablet [...] Status:Closed by JEANNETTE OLIVEIRA on 08/16/23 Normal [facility] ALBUMIN/CREATININE RATIO, UR INEon 08-08-2023 Albumin DL <= 20 mg/L (U) [Mass/Vol] [facility] Albumin/Creatinine (U) [Mass ratio] <30 mg/g [facility] Creatinine (U) [Mass/Vol] 92.5 mg/dL 20.0 - 300.0 mg/dL [facility] CBC W Auto Differential pane l (Bld)on 08-08-2023 Basophils (Bld) [#/Vol] 0.04 10*3/uL <0.11 k/uL [facility] Basophils/100 WBC (Bld) 0.8 % [facility] Differential cell count method Nom (Bld) Auto [facility] Eosinophils (Bld) [#/Vol] 0.14 10*3/uL <0.46 k/uL [facility] Eosinophils/100 WBC (Bld) 2.9 % [facility] Erythrocyte distribution width (RBC) [Ratio] 14.6 % 11.5 - 15.0 % [facility] Hematocrit (Bld) [Volume fraction] 39.3 % 39.0 - 51.0 % [facility] Hemoglobin (Bld) [Mass/Vol] 12.7 g/dL Low 13.0 - 17.0 g/dL [facility] Immature granulocytes (Bld) [#/Vol] <0.10 k/uL [facility] Immature granulocytes/100 WBC (Bld) 0.2 % [facility] Lymphocytes (Bld) [#/Vol] 1.94 10*3/uL 1.00 - 4.00 k/uL [facility] Lymphocytes/100 WBC (Bld) 40.8 % [facility] MCH (RBC) [Entitic mass] 32.5 pg 26.0 - 34.0 pg [facility] MCHC (RBC) [Mass/Vol] 32.3 g/dL 30.5 - 36.0 g/dL [facility] MCV (RBC) [Entitic vol] 100.5 fL High 80.0 - 100.0 fL [facility] Monocytes (Bld) [#/Vol] 0.59 10*3/uL <0.87 k/uL [facility] Monocytes/100 WBC (Bld) 12.4 % [facility] Neutrophils (Bld) [#/Vol] 2.03 10*3/uL 1.45 - 7.50 k/uL [facility] Neutrophils/100 WBC (Bld) 42.9 % [facility] Nucleated RBC (Bld) [#/Vol] <0.01 k/uL [facility] Nucleated RBC/100 WBC (Bld) [Ratio] 0.0 /100 WBC [facility] Platelet mean volume (Bld) [Entitic vol] 9.9 fL 9.0 - 12.7 fL [facility] Platelets (Bld) [#/Vol] 179 10*3/uL 150 - 400 k/uL [facility] RBC (Bld) [#/Vol] 3.91 10*6/uL Low 4.20 - 6.0 0 m/uL [facility] WBC (Bld) [#/Vol] 4.75 10*3/uL 3.70 - 11. 00 k/uL [facility] Comprehensive metabolic 2000 panelon 08-08-2023 Albumin [Mass/Vol] 4.1 g/dL 3.9 - 4.9 g/dL [facility] ALP [Catalytic activity/Vol] 71 U/L 38 - 113 U/L [facility] ALT [Catalytic activity/Vol] 12 U/L 10 - 54 U/L [facility] Anion gap [Moles/Vol] 12 mmol/L 9 - 18 mmol/L [facility] AST [Catalytic activity/Vol] 20 U/L 14 - 40 U/L [facility] Bilirubin [Mass/Vol] 0.4 mg/dL 0.2 - 1 .3 mg/dL [facility] Calcium [Mass/Vol] 9.8 mg/dL 8.5 - 10. 2 mg/dL [facility] Chloride [Moles/Vol] 105 mmol/L 97 - 10 5 mmol/L [facility] CO2 [Moles/Vol] 25 mmol/L 22 - 30 mmol/L [facility] Creatinine [Mass/Vol] 1.17 mg/dL 0.73 - 1.22 mg/dL [facility] Estimated Glomerular Filtration Rate 64 mL/min/1.73m >=60 mL/min/1.73m [facility] Glucose [Mass/Vol] 108 mg/dL High 74 - 99 mg/dL [facility] Potassium [Moles/Vol] 4.2 mmol/L 3.7 - 5.1 mmol/L [facility] Protein [Mass/Vol] 7.3 g/dL 6.3 - 8.0 g/dL [facility] Sodium [Moles/Vol] 142 mmol/L 136 - 144 mmol/L [facility] Urea nitrogen [Mass/Vol] 17 mg/dL 9 - 24 mg/dL [facility] HbA1c (Bld)on 08-08-2023 Average glucose Estimated from glycated hemoglobin (Bld) [Mass/Vol] 137 mg/dL [facility] HbA1c (Bld) [Mass fraction] 6.4 % High 4.3 - 5.6 % [facility] LIPID PANEL, NONFASTINGon Cholesterol [Mass/Vol] 133 mg/dL <200 mg/dL [facility] HDL Cholesterol, Nonfasting 41 mg/dL >39 mg/dL [facility] LDL Cholesterol, Nonfasting 64 mg/dL <100 mg/dL [facility] LDL/HDL Ratio, Nonfasting 1.56 mg/dL <2.54 mg/dL [facility] Non HDL Cholesterol, Nonfasting 92 mg/dL <130 mg/dL [facility] Total Chol/HDL Ratio, Nonfasting 3.24 mg/dL <5.10 mg/dL [facility] Triglycerides, Nonfasting 142 mg/dL <150 mg/dL [facility] VLDL Cholesterol, Nonfasting 28 mg/dL <30 mg/dL [facility] PROSTATE-SPECIFIC ANTIGEN DI AGNOSTICon 08-08-2023 Prostate specific Ag [Mass/Vol] 1.92 ng/mL <2.60 ng/mL [facility] Urinalysis complete panel (U )on 08-08-2023 Bacteria LM.HPF (Urine sed) [#/Area] Negative Negative /HPF [facility] Bilirubin Ql (U) Negative Negative [facility] Clarity (Unsp spec) Clear Clear [facility] Color (U) Yellow Yellow [facility] Epithelial cells LM.HPF (Urine sed) [#/Area] None Seen [facility] Glucose Test strip (U) [Mass/Vol] Negative Negative [facility] Hemoglobin Ql (U) Negative Negative [facility] Hyaline casts (Urine sed) [#/Area] 0 /[LPF] 0 /LPF [facility] Ketones Ql (U) Negative Negative [facility] Leukocyte esterase Test strip Ql (U) Negative Negative [facility] Nitrite Ql (U) Negative Negative [facility] pH (U) 6.0 [pH] <8.5 [facility] Protein (U) [Mass/Vol] Negative Negative [facility] RBC LM.HPF (Urine sed) [#/Area] 0-2 /HPF 0-2 /HPF [facility] Specific gravity (U) [Rel density] 1.015 1.005 - 1.030 [facility] Urobilinogen Ql (U) 0.2 EU/dL 0.2-1.0 EU/dL [facility] WBC LM.HPF (Urine sed) [#/Area] 0-5 /HPF 0-5 /HPF [facility] Glucose Glucometer (BldC) [M ass/Vol]Ordered By: César Tijerina on 04-14-2023 Glucose [Mass/Vol] 233 mg/dL 74-106 [facility] Comment on above: MANAGEMENT OF PATIEN T CARE PER NURSING PROTOCOL Absolute lymphocyte countOrd ered By: Lenore Robledo on 04-13-2023 Lymphocytes Auto (Unsp spec) [#/Vol] 1.45 10*3/uL 0.83-4.51 [facility] Basophil percentageOrdered B y: Lenore Robledo on 04-13-2023 Basophils/100 WBC (Bld) 0.4 % 0-1 [facility] Chloride [Moles/Vol] 106 mmol/L 98-107 [facility] Eosinophils/100 WBC (Bld) 0.1 % 0-5 [facility] Glucose [Mass/Vol] 229 mg/dL 74-106 [facility] Comment on above: Glucose result great er than or equal to 200 mg/dLsuggests DIABETES MELLITUS per A.D.A. criteria. Neutrophils (Bld) [#/Vol] 5.8 10*3/uL 2.0-7.7 [facility] Neutrophils/100 WBC (Bld) 69.9 % 47-70 [facility] Potassium [Moles/Vol] 3.9 mmol/L 3.5-5.1 [facility] Sodium [Moles/Vol] 137 mmol/L 136-145 [facility] WBC (Bld) [#/Vol] 8.3 10*3/uL 4.4-11.0 [facility] Blood erythrocytes count (nu mber/volume)Ordered By: Lenore Robledo on 04-13-2023 RBC (Bld) [#/Vol] 3.28 10*6/uL 4.6-6.2 [facility] Blood hemoglobin measurement (mass/volume)Ordered By: Lenore Robledo on 04-13-2023 Hemoglobin (Bld) [Mass/Vol] 11.2 g/dL 13.0-16.5 [facility] Blood lymphocytes/100 leukoc ytesOrdered By: Lenore Robledo on 04-13-2023 Lymphocytes/100 WBC (Bld) 17.4 % 19-41 [facility] Blood monocytes/100 leukocyt esOrdered By: Lenore Robledo on 04-13-2023 Monocytes/100 WBC (Bld) 11.7 % 0-10 [facility] Blood platelet mean volumeOr dered By: Lenore Robledo on 04-13-2023 Platelet mean volume (Bld) [Entitic vol] 9.4 fL 6.2-12.0 [facility] Determination of erythrocyte mean corpuscular volume (MCV)Ordered By: Lenore Robledo on 04-13-2023 MCV (RBC) [Entitic vol] 103.0 fL 80-94 [facility] Hematocrit Auto (Bld) [Volum e fraction]Ordered By: Lenore Robledo on 04-13-2023 Hematocrit (Bld) [Volume fraction] 33.8 % 40-54 [facility] Laboratory - Chemistry and C hemistry - challengeOrdered By: Lenore Robledo on 04-13-2023 CO2 [Moles/Vol] 25.0 mmol/L 21.0-32.0 [facility] Natriuretic peptide B (Bld) [Mass/Vol] 94.6 pg/mL 0-100 [facility] Urea nitrogen/Creatinine [Mass ratio] 11.1 mg/mg 10-20 [facility] Laboratory - Hematology and Cell countsOrdered By: Lenore Robledo on 04-13-2023 Erythrocyte distribution width (RBC) [Entitic vol] 53.0 fL 35.1-43.9 [facility] Erythrocyte distribution width (RBC) [Ratio] 13.9 % 11.6-14.6 [facility] Immature granulocytes/100 WBC (Bld) 0.500 % 0.0-0.9 [facility] Comment on above: IG% - Immature Granu locytes (promyelocytes, myelocytes and metamyelocytes) > 1% indicates that a LEFT SHIFT is Present. MCH (RBC) [Entitic mass] 34.1 pg 27.0-32.0 [facility] Nucleated RBC/100 WBC (Bld) [Ratio] 0 % 0-5 [facility] MCHC Auto (RBC) [Mass/Vol]Or dered By: Lenore Robledo on 04-13-2023 MCHC (RBC) [Mass/Vol] 33.1 g/dL 32-36 [facility] No Panel InformationOrdered By: Lenore Robledo on 04-13-2023 Estimated Creatinine Clearance Calc 40.70 ml/min [facility] Estimated GFR (MDRD) Amer 66 mL/min >60 [facility] Comment on above: GFR Calc Estimated GFR (MDRD) Non-Af Amer 54 mL/min >60 [facility] Comment on above: Non- GFR Calc Platelets bldOrdered By: Astrid Robledo on 04-13-2023 Platelets (Bld) [#/Vol] 132 10*3/uL 150-450 [facility] Respiratory pathogens detect ion panel by molecular detection methodOrdered By: Lenore Robledo on 04-13-2023 Respiratory pathogens DNA and RNA panel JOYCE+probe (Resp) [facility] Serum or plasma calcium jose urement (mass/volume)Ordered By: Lenore Robledo on 04-13-2023 Calcium [Mass/Vol] 8.8 mg/dL 8.5-10.1 [facility] Serum or plasma creatinine m easurement (mass/volume)Ordered By: Lenore Robledo on 04-13-2023 Creatinine [Mass/Vol] 1.35 mg/dL 0.70-1.30 [facility] Comment on above: The validity of the calculated GFR & GFRAA in patients over 70 years has not been determined. Clinical correlation is essential. Serum or plasma urea nitroge n measurement (mass/volume)Ordered By: Lenore Robledo on 04-13-2023 Urea nitrogen [Mass/Vol] 15 mg/dL - [facility] Thin prep Papanicolaou smear with manual screeningOrdered By: Lenore Robledo on 04-13-2023 Thin prep Papanicolaou smear with manual screening 6 - [facility] INR in Blood by Coagulation assayOrdered By: César Tijerina on 03-20-2023 INR Coag (Bld) [Relative time] 1.0 {INR} [facility] Laboratory - CoagulationOrde red By: César Tijerina on 03-20-2023 aPTT Coag (Bld) [Time] 32.2 s 24.1-36.2 [facility] PT Coag (PPP) [Time] 13.6 s 11.7-14.9 [facility] Whole blood hemoglobin A1c/t otal hemoglobin ratio (mass fraction)Ordered By: Neo Henry on 03-20-2023 HbA1c (Bld) [Mass fraction] 6.3 % 3.8-5.6 [facility] Comment on above: Normal < 5.7 % Predi abetic 5.7 - 6.4 % Diabetic >or= 6.5 % Please note range changes. Basophil percentageOrdered B y: Dr. Michael on 07-04-2022 Bilirubin [Mass/Vol] 0.60 mg/dL 0.20-1.00 [facility] Comment on above: For patients on eltr ombopag therapy, use of Dimension [place] TBIL is not recommended. Cholesterol [Mass/Vol] 110 mg/dL <200 [facility] Comment on above: <200 mg/dL Desirable 200-240 mg/dL Borderline >240 mg/dL High Risk Protein [Mass/Vol] 7.2 g/dL 6.4-8.2 [facility] Triglyceride [Mass/Vol] 135 mg/dL <199 [facility] Comment on above: The drugs N-Acetylcy steine and Metamizole may falsely depress this assay.Serum Triglycerides Reference Interval Normal <150 mg/dL Borderline high 150 - 199 mg/dL High 200 - 499 mg/dL Very High > or = 500 mg/dL Basophil percentageOrdered B y: January Loera on 07-04-2022 Chloride [Moles/Vol] 107 mmol/L 98-107 [facility] Glucose [Mass/Vol] 156 mg/dL 74-106 [facility] Comment on above: Fasting Glucose resu lt greater than or equal to 126 mg/dL suggests DIABETES MELLITUS per A.D.A. criteria. Potassium [Moles/Vol] 4.0 mmol/L 3.5-5.1 [facility] Sodium [Moles/Vol] 143 mmol/L 136-145 [facility] Direct bilirubinOrdered By: Dr. Michael on 07-04-2022 Bilirubin.direct [Mass/Vol] 0.20 mg/dL 0.00-0.30 [facility] Laboratory - Chemistry and C hemistry - challengeOrdered By: Dr. Michael on 07-04-2022 ALP [Catalytic activity/Vol] 49 U/L 45-117 [facility] ALT [Catalytic activity/Vol] 23 U/L 16-61 [facility] Globulin (S) [Mass/Vol] 3.7 g/dL 2.2-4.2 [facility] Laboratory - Chemistry and C hemistry - challengeOrdered By: January Loera on 07-04-2022 CO2 [Moles/Vol] 27.0 mmol/L 21.0-32.0 [facility] Urea nitrogen/Creatinine [Mass ratio] 13.3 mg/mg 10-20 [facility] Natriuretic peptide B (Bld) [Mass/Vol] 57.4 pg/mL 0-100 [facility] No Panel InformationOrdered By: January Loera on 07-04-2022 Estimated GFR (MDRD) Amer 81 mL/min >60 [facility] Comment on above: GFR Calc Estimated GFR (MDRD) Non-Af Amer 67 mL/min >60 [facility] Comment on above: Non- GFR Calc Serum or plasma albumin jose urement (mass/volume)Ordered By: Dr. Michael on 07-04-2022 Albumin [Mass/Vol] 3.5 g/dL 3.2-5.0 [facility] Serum or plasma calcium jose urement (mass/volume)Ordered By: January Loera on 07-04-2022 Calcium [Mass/Vol] 9.1 mg/dL 8.5-10.1 [facility] Serum or plasma cholesterol in HDL measurement (mass/volume)Ordered By: Dr. Michael on 07-04-2022 Cholesterol in HDL [Mass/Vol] 49 mg/dL >40 [facility] Comment on above: The drugs N-Acetylcy steine and Metamizole may falsely depress this assay. Reference Range HDL <40 mg/dL Low HDL Cholesterol HDL >or= 60 mg/dL High HDL Cholesterol Serum or plasma cholesterol in VLDL measurement (mass/volume)Ordered By: Dr. Michael on 07-04-2022 Cholesterol in VLDL [Mass/Vol] 27 mg/dL 5-40 [facility] Serum or plasma creatinine m easurement (mass/volume)Ordered By: January Loera on 07-04-2022 Creatinine [Mass/Vol] 1.13 mg/dL 0.70-1.30 [facility] Comment on above: The validity of the calculated GFR & GFRAA in patients over 70 years has not been determined. Clinical correlation is essential. Serum or plasma low density lipoprotein (LDL) cholesterol measurement (mass/volume)Ordered By: Dr. Michael on 07-04-2022 Cholesterol in LDL [Mass/Vol] 34 mg/dL 0-130 [facility] Serum or plasma urea nitroge n measurement (mass/volume)Ordered By: January Loera on 07-04-2022 Urea nitrogen [Mass/Vol] 15 mg/dL 7-18 [facility] Thin prep Papanicolaou smear with manual screeningOrdered By: Dr. Michael on 07-04-2022 Thin prep Papanicolaou smear with manual screening 18 U/L 15-37 [facility] Thin prep Papanicolaou smear with manual screeningOrdered By: January Loera on 07-04-2022 Thin prep Papanicolaou smear with manual screening 9 5-15 [facility] CBC W Auto Differential pane l (Bld)on 05-31-2022 Basophils (Bld) [#/Vol] 0.03 10*3/uL <0.11 k/uL [facility] Basophils/100 WBC (Bld) 0.6 % [facility] Differential cell count method Nom (Bld) Auto [facility] Eosinophils (Bld) [#/Vol] 0.17 10*3/uL <0.46 k/uL [facility] Eosinophils/100 WBC (Bld) 3.3 % [facility] Erythrocyte distribution width (RBC) [Ratio] 14.2 % 11.5 - 15.0 % [facility] Hematocrit (Bld) [Volume fraction] 42.1 % 39.0 - 51.0 % [facility] Hemoglobin (Bld) [Mass/Vol] 13.6 g/dL 13.0 - 17.0 g/dL [facility] Immature granulocytes (Bld) [#/Vol] <0.10 k/uL [facility] Immature granulocytes/100 WBC (Bld) 0.2 % [facility] Lymphocytes (Bld) [#/Vol] 1.75 10*3/uL 1.00 - 4.00 k/uL [facility] Lymphocytes/100 WBC (Bld) 33.6 % [facility] MCH (RBC) [Entitic mass] 33.7 pg 26.0 - 34.0 pg [facility] MCHC (RBC) [Mass/Vol] 32.3 g/dL 30.5 - 36.0 g/dL [facility] MCV (RBC) [Entitic vol] 104.2 fL High 80.0 - 100.0 fL [facility] Monocytes (Bld) [#/Vol] 0.59 10*3/uL <0.87 k/uL [facility] Monocytes/100 WBC (Bld) 11.3 % [facility] Neutrophils (Bld) [#/Vol] 2.66 10*3/uL 1.45 - 7.50 k/uL [facility] Neutrophils/100 WBC (Bld) 51.0 % [facility] Nucleated RBC (Bld) [#/Vol] <0.01 k/uL [facility] Nucleated RBC/100 WBC (Bld) [Ratio] 0.0 /100 WBC [facility] Platelet mean volume (Bld) [Entitic vol] 10.2 fL 9.0 - 12.7 fL [facility] Platelets (Bld) [#/Vol] 207 10*3/uL 150 - 400 k/uL [facility] RBC (Bld) [#/Vol] 4.04 10*6/uL Low 4.20 - 6.0 0 m/uL [facility] WBC (Bld) [#/Vol] 5.21 10*3/uL 3.70 - 11. 00 k/uL [facility] Comprehensive metabolic 2000 panelon 05-31-2022 Albumin [Mass/Vol] 4.2 g/dL 3.9 - 4.9 g/dL [facility] ALP [Catalytic activity/Vol] 48 U/L 38 - 113 U/L [facility] ALT [Catalytic activity/Vol] 21 U/L 10 - 54 U/L [facility] Anion gap [Moles/Vol] 10 mmol/L 9 - 18 mmol/L [facility] AST [Catalytic activity/Vol] 27 U/L 14 - 40 U/L [facility] Bilirubin [Mass/Vol] 0.6 mg/dL 0.2 - 1 .3 mg/dL [facility] Calcium [Mass/Vol] 9.7 mg/dL 8.5 - 10. 2 mg/dL [facility] Chloride [Moles/Vol] 108 mmol/L High 97 - 10 5 mmol/L [facility] CO2 [Moles/Vol] 25 mmol/L 22 - 30 mmol/L [facility] Creatinine [Mass/Vol] 0.89 mg/dL 0.73 - 1.22 mg/dL [facility] Estimated Glomerular Filtration Rate 88 mL/min/1.73m >=60 mL/min/1.73m [facility] Glucose [Mass/Vol] 156 mg/dL High 74 - 99 mg/dL [facility] Potassium [Moles/Vol] 4.7 mmol/L 3.7 - 5.1 mmol/L [facility] Protein [Mass/Vol] 7.2 g/dL 6.3 - 8.0 g/dL [facility] Sodium [Moles/Vol] 143 mmol/L 136 - 144 mmol/L [facility] Urea nitrogen [Mass/Vol] 14 mg/dL 9 - 24 mg/dL [facility] LIPID PANEL, NONFASTINGon Cholesterol [Mass/Vol] 117 mg/dL <200 mg/dL [facility] HDL Cholesterol, Nonfasting 51 mg/dL >39 mg/dL [facility] LDL Cholesterol, Nonfasting 49 mg/dL <100 mg/dL [facility] LDL/HDL Ratio, Nonfasting 0.96 mg/dL <2.54 mg/dL [facility] Non HDL Cholesterol, Nonfasting 66 mg/dL <130 mg/dL [facility] Total Chol/HDL Ratio, Nonfasting 2.29 mg/dL <5.10 mg/dL [facility] Triglycerides, Nonfasting 85 mg/dL <150 mg/dL [facility] VLDL Cholesterol, Nonfasting 17 mg/dL <30 mg/dL [facility] PSA/PROSTSPECAG DIAGon 05-31 Prostate specific Ag [Mass/Vol] 1.42 ng/mL <2.60 ng/mL [facility] C-REACTIVE PROTEIN (CRP)on 0 09-19-2021 CRP [Mass/Vol] mg/L <0.9 mg/dL [facility] CBC W Auto Differential pane l (Bld)on 09-19-2021 Abs Immature Gran <0.03 <0.10 k/uL [facility] Basophils (Bld) [#/Vol] 0.05 10*3/uL <0.11 k/uL [facility] Basophils/100 WBC (Bld) 0.7 % [facility] Differential cell count method Nom (Bld) Auto [facility] Eosinophils (Bld) [#/Vol] 0.09 10*3/uL <0.46 k/uL [facility] Eosinophils/100 WBC (Bld) 1.2 % [facility] Erythrocyte distribution width (RBC) [Ratio] 13.3 % 11.5 - 15.0 % [facility] Hematocrit (Bld) [Volume fraction] 43.0 % 39.0 - 51.0 % [facility] Hemoglobin (Bld) [Mass/Vol] 14.5 g/dL 13.0 - 17.0 g/dL [facility] Immature Gran % 0.3 % [facility] Lymphocytes (Bld) [#/Vol] 2.18 10*3/uL 1.00 - 4.00 k/uL [facility] Lymphocytes/100 WBC (Bld) 29.1 % [facility] MCH (RBC) [Entitic mass] 34.1 pg High 26.0 - 34.0 pg [facility] MCHC (RBC) [Mass/Vol] 33.7 g/dL 30.5 - 36.0 g/dL [facility] MCV (RBC) [Entitic vol] 101.2 fL High 80.0 - 100.0 fL [facility] Monocytes (Bld) [#/Vol] 0.80 10*3/uL <0.87 k/uL [facility] Monocytes/100 WBC (Bld) 10.7 % [facility] Neutrophils (Bld) [#/Vol] 4.35 10*3/uL 1.45 - 7.50 k/uL [facility] Neutrophils/100 WBC (Bld) 58.0 % [facility] Nucleated RBC (Bld) [#/Vol] 10*3/uL <0.01 k/uL [facility] Nucleated RBC/100 WBC (Bld) [Ratio] 0.0 /100 WBC [facility] Platelet mean volume (Bld) [Entitic vol] 9.0 fL 9.0 - 12.7 fL [facility] Platelets (Bld) [#/Vol] 274 10*3/uL 150 - 400 k/uL [facility] RBC (Bld) [#/Vol] 4.25 10*6/uL 4.20 - 6.0 0 m/uL [facility] WBC (Bld) [#/Vol] 7.49 10*3/uL 3.70 - 11. 00 k/uL [facility] Comprehensive metabolic 2000 panelon 09-19-2021 Albumin [Mass/Vol] 4.7 g/dL 3.9 - 4.9 g/dL [facility] ALP [Catalytic activity/Vol] 62 U/L 38 - 113 U/L [facility] ALT [Catalytic activity/Vol] 17 U/L 10 - 54 U/L [facility] Anion gap [Moles/Vol] 12 mmol/L 9 - 18 mmol/L [facility] AST [Catalytic activity/Vol] 20 U/L 14 - 40 U/L [facility] Bilirubin [Mass/Vol] 0.6 mg/dL 0.2 - 1 .3 mg/dL [facility] Calcium [Mass/Vol] 10.4 mg/dL High 8.5 - 10. 2 mg/dL [facility] Chloride [Moles/Vol] 100 mmol/L 97 - 10 5 mmol/L [facility] CO2 [Moles/Vol] 27 mmol/L 22 - 30 mmol/L [facility] Creatinine [Mass/Vol] 1.22 mg/dL 0.73 - 1.22 mg/dL [facility] Estimated Glomerular Filtration Rate 61 mL/min/1.73m >=60 mL/min/1.73m [facility] Glucose [Mass/Vol] 147 mg/dL High 74 - 99 mg/dL [facility] Potassium [Moles/Vol] 4.9 mmol/L 3.7 - 5.1 mmol/L [facility] Protein [Mass/Vol] 7.8 g/dL 6.3 - 8.0 g/dL [facility] Sodium [Moles/Vol] 139 mmol/L 136 - 144 mmol/L [facility] Urea nitrogen [Mass/Vol] 25 mg/dL High 9 - 24 mg/dL [facility] Basophil percentageon 2021 Bilirubin [Mass/Vol] 0.70 mg/dL 0.20-1.00 [facility] Work Phone: Comment on above: For patients on eltr ombopag therapy, use of Dimension [place] TBIL is not recommended. Cholesterol [Mass/Vol] 117 mg/dL <200 [facility] Work Phone: Comment on above: <200 mg/dL Desirable 200-240 mg/dL Borderline >240 mg/dL High Risk Protein [Mass/Vol] 7.5 g/dL 6.4-8.2 [facility] Work Phone: [phone] Triglyceride [Mass/Vol] 131 mg/dL [facility] Work Phone: [phone] Comment on above: The drugs N-Acetylcy steine and Metamizole may falsely depress this assay.Serum Triglycerides Reference Interval Normal <150 mg/dL Borderline high 150 - 199 mg/dL High 200 - 499 mg/dL Very High > or = 500 mg/dL Direct bilirubinon Bilirubin.direct [Mass/Vol] 0.19 mg/dL 0.00-0.30 [facility] Work Phone: [phone] Laboratory - Chemistry and C hemistry - challengeon 07-21-2021 ALP [Catalytic activity/Vol] 52 U/L 45-117 [facility] Work Phone: [phone] ALT [Catalytic activity/Vol] 24 U/L 16-61 [facility] Work Phone: [phone] Globulin (S) [Mass/Vol] 3.8 g/dL 2.2-4.2 [facility] Work Phone: [phone] Serum or plasma albumin jose urement (mass/volume)on 07-21-2021 Albumin [Mass/Vol] 3.7 g/dL 3.2-5.0 [facility] Work Phone: [phone] Serum or plasma cholesterol in HDL measurement (mass/volume)on 07-21-2021 Cholesterol in HDL [Mass/Vol] 48 mg/dL [facility] Work Phone: [phone] Comment on above: The drugs N-Acetylcy steine and Metamizole may falsely depress this assay. Reference Range HDL <40 mg/dL Low HDL Cholesterol HDL >or= 60 mg/dL High HDL Cholesterol Serum or plasma cholesterol in VLDL measurement (mass/volume)on 07-21-2021 Cholesterol in VLDL [Mass/Vol] 26 mg/dL 5-40 [facility] Work Phone: Serum or plasma low density lipoprotein (LDL) cholesterol measurement (mass/volume)on 07-21-2021 Cholesterol in LDL [Mass/Vol] 43 mg/dL 0-130 [facility] Work Phone: Thin prep Papanicolaou smear with manual screeningon 07-21-2021 Thin prep Papanicolaou smear with manual screening 21 U/L 15-37 [facility] Work Phone: XR Chest PA and Lateralon IMPRESSION: Bilateral pulmonary parenchymal opacities related to scarring or infiltrates. Small right-sided pleural effusion. Testing Lead: PSCB Transcribe Date/Time: Feb 11 2021 2:24P Dictated by : DAVID CLEMONS MD This examination was interpreted and the report reviewed and electronically signed by: DAVID CLEMONS MD on Feb 11 2021 2:28PM [facility] [[email or web address]] DIVISION OF RADIOLOGY * * *Final Report* [...] soft tissues: Unremarkable. DIVISION OF RADIOLOGY Provider, [facility] - 02/11/2021 * * *Final [...] scarring or infiltrates. Small right-sided pleural effusion. Testing Lead: DARIUSZB Transcribe Date/Time: Feb 11 2021 2:24P Dictated by : DAVID CLEMONS MD This examination was interpreted and the report reviewed and electronically signed by: DAVID CLEMONS MD on Feb 11 2021 2:28PM EST [facility] Radiology Study observation (narrative) [facility] XR Chest PA and LateralOrder ed By: [facility] Provider on 02-11-2021 [facility] Office Visiton 01-29-2017 Documentation of current medications (procedure) Done Invalid Interpretation Code [employer] Work Phone: [phone] Protein mass conc Done Invalid Interpretation Code [employer] Work Phone: [phone] Lab Report: Lipid Profileon 01-20-2017 HDL Cholesterol 45 mg/dL Invalid Interpretation Code [employer] Work Phone: [phone] LDL Cholesterol 37 mg/dL Invalid Interpretation Code 0-130 [employer] Work Phone: [phone] very low density lipoproteins 19 mg/dL Invalid Interpretation Code 5-40 [employer] Work Phone: [phone] Cholesterol 101 mg/dL Invalid Interpretation Code 200 [employer] Work Phone: [phone] Triglyceride 94 mg/dL Invalid Interpretation Code [employer] Work Phone: [phone] Replaced Document: Liver Pro fileon 01-20-2017 Alanine aminotransferase (ALT) 26 U/L Invalid Interpretation Code 12-78 [employer] Work Phone: [phone] Albumin 3.5 g/dL Invalid Interpretation Code 3.4-5.0 [employer] Work Phone: [phone] Alkaline phosphatase (ALP) 54 U/L Invalid Interpretation Code 45-117 [facility] Work Phone: [phone] ALP enzyme act/vol (Bld) 54 U/L Invalid Interpretation Code 45-117 [facility] Work Phone: [phone] Aspartate aminotransferase (AST) 21 U/L Invalid Interpretation Code 15-37 [facility] Work Phone: [phone] Bilirubin (direct) 0.16 mg/dL Invalid Interpretation Code 0.00-0.30 [facility] Work Phone: [phone] Bilirubin (total) 0.60 mg/dL Invalid Interpretation Code 0.20-1.00 [facility] Work Phone: [phone] Globulin 3.4 g/dL Invalid Interpretation Code 2.3-3.5 [facility] Work Phone: [phone] Globulin mass conc (S) 3.4 g/dL 2.3-3.5 [facility] Work Phone: [phone] Protein 6.9 g/dL Invalid Interpretation Code 6.4-8.2 [facility] Work Phone: [phone] Office Visiton 07-17-2016 Documentation of current medications (procedure) Done Invalid Interpretation Code [facility] Work Phone: [phone] Clinical Lists Update: Prelo cinder man 07-12-2016 Left ventricular Ejection fraction 55 % Invalid Interpretation Code [facility] Work Phone: [phone] Office Visiton 07-19-2015 Tobacco smoking status NHIS Former smoker Invalid Interpretation Code [facility] Work Phone: [phone] Tobacco use CPHS Former smoker Invalid Interpretation Code [facility] Work Phone: [phone] Office Visiton 01-26-2015 cardiac risk group C Invalid Interpretation Code [facility] Work Phone: [phone] Dietary management education, guidance, and counseling (procedure) yes Invalid Interpretation Code [facility] Work Phone: [phone] General cardiovascular disease 10Y risk [#] [place].D'Agostrosangela N/A Invalid Interpretation Code [facility] Work Phone: [phone] EKG Report: [facility] ECG Obse rvationson 01-20-2014 GE use only - for [employer] import when terms are not otherwise specified 399 ms Invalid Interpretation Code [facility] Work Phone: [phone] QTc Medrano 399 ms Invalid Interpretation Code [facility] Work Phone: [phone] Replaced Document: Joe Segoviaon 01-20-2014 EKG QRS axis -9 deg Invalid Interpretation Code [facility] Work Phone: [phone] electrocardiogram interpretation Sinus Rhythm -First degree A-V block [place] = 230BORDERLINE RHYTHM Invalid Interpretation Code [facility] Work Phone: [phone] Interpretation Sinus Rhythm -First degree A-V block [place] = 230BORDERLINE RHYTHM Invalid Interpretation Code [employer] Work Phone: [phone] P [place] 36 deg Invalid Interpretation Code [employer] Work Phone: [phone] P wave axis, electrocardiogram 36 deg Invalid Interpretation Code [facility] Work Phone: [phone] TX Interval 230 ms Invalid Interpretation Code [facility] Work Phone: [phone] TX interval, electrocardiogram 230 ms Invalid Interpretation Code [facility] [employer] Work Phone: [phone] Pulse (Heart Rate) 401 ms Invalid Interpretation Code [facility] Work Phone: [phone] Pulse (Heart Rate) 61 /min Invalid Interpretation Code [facility] Work Phone: [phone] QRS axis, electrocardiogram -9 deg Invalid Interpretation Code [facility] [facility] Work Phone: [phone] QRS Duration 94 ms Invalid Interpretation Code [facility] [facility] Work Phone: [phone] QRS duration, electrocardiogram 94 ms Invalid Interpretation Code [facility] Work Phone: [phone] QT Interval new path ms Invalid Interpretation Code [facility] [employer] [facility] Work Phone: [phone] QT interval, electrocardiogram new path ms Invalid Interpretation Code [facility] Work Phone: [phone] T [place] 12 deg Invalid Interpretation Code [facility] Work Phone: [phone] T wave axis, electrocardiogram 12 deg Invalid Interpretation Code [facility] Work Phone: [phone] Clinical Lists Update: Prelo cinder man 10-13-2011 Anion gap 8 mmol/L Invalid Interpretation Code [employer] Work Phone: [phone] Anion gap 4 molar conc 8 Invalid Interpretation Code [facility] Work Phone: [phone] Anion gap molar conc 8 mmol/L [facility] Work Phone: [phone] BUN/Creatinine Ratio 15 mg/mg Invalid Interpretation Code [facility] Work Phone: [phone] Calcium 8.9 mg/dL Invalid Interpretation Code [facility] Work Phone: [phone] Chloride 109 mmol/L High [facility] Work Phone: [phone] CO2 25 mmol/L Invalid Interpretation Code [facility] Work Phone: [phone] CO2 ppres (BldV) 25 mmol/L Invalid Interpretation Code [facility] Work Phone: [phone] Creatinine 1.0 mg/dL Invalid Interpretation Code [facility] Work Phone: [phone] Glucose 122 mg/dL High [facility] Work Phone: [phone] Glucose mass conc 122 mg/dL High [facility] Work Phone: [phone] Potassium 4.0 mmol/L Invalid Interpretation Code [facility] Work Phone: [phone] Sodium 142 mmol/L Invalid Interpretation Code [facility] Work Phone: [phone] Urea nitrogen 15 mg/dL Invalid Interpretation Code [facility] Work Phone: [phone] Office Visiton 05-19-2011 Alcoholism counseling (procedure) no Invalid Interpretation Code [facility] Work Phone: [phone] Protein mass conc no Invalid Interpretation Code [facility] Work Phone: [phone] Vital Signs Date Time Vital Sign Value Performing Clinician Facility 03-05-2025 12:51-0500 Body height 167.6 cm Zunilda Barrientos MD Work Phone: [facility] 03-05-2025 12:51-0500 Body mass index (BMI) [Ratio] 39.38 kg/m2 Zunilda Barrientos MD Work Phone: [facility] 03-05-2025 12:51-0500 Body weight 110.68 kg Zunilda Barrientos MD Work Phone: [facility] 03-05-2025 12:51-0500 Diastolic blood pressure 66 mm[Hg] Zunilda Barrientos MD Work Phone: [facility] 03-05-2025 12:51-0500 Heart rate 69 /min Zunilda Barrientos MD Work Phone: [facility] 03-05-2025 12:51-0500 Systolic blood pressure 122 mm[Hg] Zunilda Barrientos MD Work Phone: [facility] 12-17-2024 09:24-0400 Body weight 104.33 kg Payton Brizuela MD Work Phone: [facility] 12-17-2024 09:24-0400 Diastolic blood pressure 76 mm[Hg] Payton Brizuela MD Work Phone: [facility] 12-17-2024 09:24-0400 Heart rate 56 /min Payton Brizuela MD Work Phone: [facility] 12-17-2024 09:24-0400 Systolic blood pressure 138 mm[Hg] Payton Brizuela MD Work Phone: [facility] 11-27-2024 07:48-0400 Body height 167.[address] César Merrill MD Work Phone: [facility] 11-27-2024 07:48-0400 Body weight 104.[address] César Merrill MD Work Phone: [facility] 11-26-2024 12:14-0400 Body mass index (BMI) [Ratio] 37.3 kg/m2 Dr. César Merrill MD Work Phone: [facility] 11-14-2024 10:30-0400 Body height 167.[address] César Merrill MD Work Phone: [facility] 11-14-2024 10:30-0400 Body mass index (BMI) [Ratio] 35.5 kg/m2 Dr. César Merrill MD Work Phone: [facility] 11-14-2024 10:30-0400 Body temperature 96.8 [degF] Dr. César Merrill MD Work Phone: 8(423)452-023025 [place] [address] 11-14-2024 10:30-0400 Body weight 99.[address] César Merrill MD Work Phone: 3(982)434-125825 [place] [address] 11-14-2024 10:30-0400 Diastolic blood pressure 68 mm[Hg] Dr. César Merrill MD Work Phone: 3(997)813-467225 [place] [address] 11-14-2024 10:30-0400 Heart rate 65 /min Dr. César Merrill MD Work Phone: 1(351)048-288125 [place] [address] 11-14-2024 10:30-0400 Respiratory rate 20 /min Dr. César Merrill MD Work Phone: 5(470)693-645225 [place] [address] 11-14-2024 10:30-0400 SaO2% (BldA) [Mass fraction] 94 % Dr. César Merrill MD Work Phone: 2(315)773-793625 [place] [address] 11-14-2024 10:30-0400 Systolic blood pressure 159 mm[Hg] Dr. César Merrill MD Work Phone: 2(198)636-412425 [place] [address] 10-29-2024 10:42-0400 Diastolic blood pressure 70 mm[Hg] Dr. César Merrill MD Work Phone: 1(238)541-964625 [place] [address] 10-29-2024 10:42-0400 Heart rate 60 /min Dr. César Merrill MD Work Phone: 0(969)491-996025 [place] [address] 10-29-2024 10:42-0400 Systolic blood pressure 149 mm[Hg] Dr. César Merrill MD Work Phone: 4(084)428-798525 [place] [address] 10-29-2024 10:29-0400 Body height 167.[address] César Merrill MD Work Phone: 8(316)134-714625 [place] [address] 10-29-2024 10:29-0400 Body mass index (BMI) [Ratio] 37.3 kg/m2 Dr. César Merrill MD Work Phone: 4(555)138-959125 [place] [address] 10-29-2024 10:29-0400 Body weight 104.[address] César Merrill MD Work Phone: 5(759)534-399701 [place] [address] 10-29-2024 10:29-0400 Respiratory rate 18 /min Dr. César Merrill MD Work Phone: 6(062)869-711525 [place] [address] 10-09-2024 15:06-0400 Body temperature 98.2 [degF] Dr. César Merrill MD Work Phone: 3(889)362-823225 [place] [address] 10-09-2024 15:06-0400 Body weight 105.[address] César Merrill MD Work Phone: 9(379)416-045325 [place] [address] 10-09-2024 15:06-0400 Diastolic blood pressure 70 mm[Hg] Dr. César Merrill MD Work Phone: 2(030)596-872925 [place] [address] 10-09-2024 15:06-0400 Heart rate 83 /min Dr. César Merrill MD Work Phone: 0(648)448-124725 [place] [address] 10-09-2024 15:06-0400 Respiratory rate 16 /min Dr. César Merrill MD Work Phone: 5(765)139-601525 [place] [address] 10-09-2024 15:06-0400 SaO2% (BldA) [Mass fraction] 93 % Dr. César Merrill MD Work Phone: 3(575)381-930601 [place] [address] 10-09-2024 15:06-0400 Systolic blood pressure 143 mm[Hg] Dr. César Merrill MD Work Phone: 4(165)579-896601 [place] [address] 08-29-2024 11:06-0400 Body temperature 98.6 [degF] Dr. César Merrill MD Work Phone: 5(335)147-727225 [place] [address] 08-29-2024 11:06-0400 Body weight 104.[address] César Merrill MD Work Phone: 3(013)240-100501 [place] [address] 08-29-2024 11:06-0400 Diastolic blood pressure 63 mm[Hg] Dr. César Merrill MD Work Phone: 6(557)346-472025 [place] [address] 08-29-2024 11:06-0400 Heart rate 62 /min Dr. César Merrill MD Work Phone: [facility] 08-29-2024 11:06-0400 Respiratory rate 18 /min Dr. César Merrill MD Work Phone: [facility] 08-29-2024 11:06-0400 SaO2% (BldA) [Mass fraction] 94 % Dr. César Merrill MD Work Phone: [facility] 08-29-2024 11:06-0400 Systolic blood pressure 128 mm[Hg] Dr. César Merrill MD Work Phone: [facility] 07-24-2024 08:29-0400 Body height 165.1 cm César Merrill MD Work Phone: [facility] 07-24-2024 08:29-0400 Body mass index (BMI) [Ratio] 37.77 kg/m2 César Merrill MD Work Phone: [facility] 07-24-2024 08:29-0400 Body weight 102.97 kg César Merrill MD Work Phone: [facility] 07-24-2024 08:29-0400 Diastolic blood pressure 54 mm[Hg] César Merrill MD Work Phone: [facility] 07-24-2024 08:29-0400 Heart rate 60 /min César Merrill MD Work Phone: [facility] 07-24-2024 08:29-0400 SaO2% (BldA) [Mass fraction] 95 % César Merrill MD Work Phone: [facility] 07-24-2024 08:29-0400 Systolic blood pressure 124 mm[Hg] César Merrill MD Work Phone: [facility] 07-10-2024 09:30-0400 Body height 167.[address] César Merrill MD Work Phone: [facility] 07-10-2024 09:30-0400 Body mass index (BMI) [Ratio] 37.4 kg/m2 Dr. César Merrill MD Work Phone: [facility] 07-10-2024 09:30-0400 Body weight 105.[address] César Merrill MD Work Phone: [facility] 07-10-2024 09:30-0400 Diastolic blood pressure 65 mm[Hg] Dr. César Merrill MD Work Phone: [facility] 07-10-2024 09:30-0400 Heart rate 55 /min Dr. César Merrill MD Work Phone: [facility] 07-10-2024 09:30-0400 Respiratory rate 18 /min Dr. César Merrill MD Work Phone: [facility] 07-10-2024 09:30-0400 SaO2% (BldA) [Mass fraction] 92 % Dr. César Merrill MD Work Phone: [facility] 07-10-2024 09:30-0400 Systolic blood pressure 142 mm[Hg] Dr. César Merrill MD Work Phone: [facility] 06-10-2024 13:21-0500 Body mass index (BMI) [Ratio] 39.16 kg/m2 Deysi Cain APRN.VEHICLE TRIMMER Work Phone: [facility] 06-10-2024 13:21-0500 Body temperature 98.71 [degF] Deysi Cain APRN.VEHICLE TRIMMER Work Phone: [facility] 06-10-2024 13:21-0500 Body weight 105.1 kg Deysi Cain APRN.VEHICLE TRIMMER Work Phone: [facility] 06-10-2024 13:21-0500 Diastolic blood pressure 72 mm[Hg] Deysi Cain APRN.VEHICLE TRIMMER Work Phone: [facility] 06-10-2024 13:21-0500 Heart rate 92 /min Deysi Cain APRN.VEHICLE TRIMMER Work Phone: [facility] 06-10-2024 13:21-0500 Respiratory rate 18 /min Deysi Cain APRN.VEHICLE TRIMMER Work Phone: [facility] 06-10-2024 13:21-0500 SaO2% (BldA) [Mass fraction] 94 % Deysi Cain ENVIRONMENTAL SCIENCE INSTRUCTOR.VEHICLE TRIMMER Work Phone: [facility] 06-10-2024 13:21-0500 Systolic blood pressure 142 mm[Hg] Deysi Cain APRN.VEHICLE TRIMMER Work Phone: [facility] 02-14-2024 09:13-0400 Diastolic blood pressure 58 mm[Hg] César Merrlil MD Work Phone: [facility] 02-14-2024 09:13-0400 Systolic blood pressure 132 mm[Hg] César Merrill MD Work Phone: [facility] 02-14-2024 08:39-0400 Body height 163.8 cm César Merrill MD Work Phone: [facility] 02-14-2024 08:39-0400 Body mass index (BMI) [Ratio] 37.33 kg/m2 César Merrill MD Work Phone: [facility] 02-14-2024 08:39-0400 Body weight 100.2 kg César Merrill MD Work Phone: [facility] 02-14-2024 08:39-0400 Heart rate 59 /min César Merrill MD Work Phone: [facility] 08-08-2023 09:31-0400 Body height 163.8 cm César Merrill MD Work Phone: [facility] 08-08-2023 09:31-0400 Body weight 101.15 kg César Merrill MD Work Phone: [facility] 08-08-2023 09:31-0400 Diastolic blood pressure 60 mm[Hg] César Merrill MD Work Phone: [facility] 08-08-2023 09:31-0400 Heart rate 76 /min César Merrill MD Work Phone: [facility] 08-08-2023 09:31-0400 Respiratory rate 16 /min César Merrill MD Work Phone: [facility] 08-08-2023 09:31-0400 Systolic blood pressure 118 mm[Hg] César Merrill MD Work Phone: [facility] 04-19-2023 09:58-0500 Body weight 101.15 kg May Ragland MD Work Phone: [facility] 04-19-2023 09:58-0500 Diastolic blood pressure 62 mm[Hg] May Ragland MD Work Phone: [facility] 04-19-2023 09:58-0500 Heart rate 81 /min May Ragland MD Work Phone: [facility] 04-19-2023 09:58-0500 SaO2% (BldA) [Mass fraction] 96 % May Ragland MD Work Phone: [facility] 04-19-2023 09:58-0500 Systolic blood pressure 142 mm[Hg] May Ragland MD Work Phone: [facility] 04-14-2023 10:56-0500 Heart rate 88 /min Dr. César Merrill Work Phone: [facility] 04-14-2023 10:56-0500 Respiratory rate 22 /min Dr. César Merrill Work Phone: [facility] 04-14-2023 09:28-0500 Inhaled oxygen flow rate 2 L/min Dr. César Merrill Work Phone: [facility] 04-14-2023 09:28-0500 SaO2% (BldA) [Mass fraction] 91 % Dr. César Merrill Work Phone: [facility] 04-14-2023 07:37-0500 Body temperature 98.3 [degF] Dr. César Merrill Work Phone: [facility] 04-14-2023 07:37-0500 Diastolic blood pressure 56 mm[Hg] Dr. César Merrill Work Phone: 3(227)186-956795 [place] [address] 04-14-2023 07:37-0500 Systolic blood pressure 124 mm[Hg] Dr. César Merrill Work Phone: [facility] 04-12-2023 16:00-0500 Body height 167.[address] César Merrill Work Phone: 7(109)237-265801 [place] [address] 04-12-2023 16:00-0500 Body mass index (BMI) [Ratio] 37.9 kg/m2 Dr. César Merrill Work Phone: 3(511)666-980401 [place] [address] 04-12-2023 16:00-0500 Body weight 106.[address] César Merrill Work Phone: 4(121)842-400101 [place] [address] 03-26-2023 11:56-0500 Diastolic blood pressure 66 mm[Hg] Melody Jerome ENVIRONMENTAL SCIENCE INSTRUCTOR.VEHICLE TRIMMER Work Phone: 7(744)350-445046 [place] [address] 03-26-2023 11:56-0500 Systolic blood pressure 141 mm[Hg] Melody Jerome ENVIRONMENTAL SCIENCE INSTRUCTOR.VEHICLE TRIMMER Work Phone: [facility] 03-26-2023 11:50-0500 Body height 165.1 cm Melody Jerome ENVIRONMENTAL SCIENCE INSTRUCTOR.VEHICLE TRIMMER Work Phone: [facility] 03-26-2023 11:50-0500 Body temperature 98.01 [degF] Melody Jerome ENVIRONMENTAL SCIENCE INSTRUCTOR.VEHICLE TRIMMER Work Phone: [facility] 03-26-2023 11:50-0500 Body weight 103.42 kg Melody Jerome ENVIRONMENTAL SCIENCE INSTRUCTOR.VEHICLE TRIMMER Work Phone: [facility] 03-26-2023 11:50-0500 Heart rate 70 /min Melody Jerome ENVIRONMENTAL SCIENCE INSTRUCTOR.VEHICLE TRIMMER Work Phone: [facility] 03-26-2023 11:50-0500 Respiratory rate 12 /min Melody Jerome ENVIRONMENTAL SCIENCE INSTRUCTOR.VEHICLE TRIMMER Work Phone: [facility] 03-26-2023 11:50-0500 SaO2% (BldA) [Mass fraction] 99 % Melody Jerome ENVIRONMENTAL SCIENCE INSTRUCTOR.VEHICLE TRIMMER Work Phone: [facility] 03-09-2023 10:57-0500 Diastolic blood pressure 78 mm[Hg] Dr. César Merrill Work Phone: [facility] 03-09-2023 10:57-0500 Systolic blood pressure 128 mm[Hg] Dr. César Merrill Work Phone: [facility] 03-09-2023 10:27-0500 Body mass index (BMI) [Ratio] 35.9 kg/m2 Dr. César Merrill Work Phone: [facility] 03-09-2023 10:27-0500 Body weight 101.[address] César Merrill Work Phone: [facility] 03-09-2023 10:27-0500 Heart rate 94 /min Dr. César Merrill Work Phone: 9(864)866-345101 [place] [address] 03-09-2023 10:27-0500 Respiratory rate 18 /min Dr. César Merrill Work Phone: 2(457)250-593701 [place] [address] 03-09-2023 10:27-0500 SaO2% (BldA) [Mass fraction] 95 % Dr. César Merrill Work Phone: [facility] 07-04-2022 09:18-0500 Body height 167.[address] César Merrill Work Phone: [facility] 07-04-2022 09:18-0500 Body mass index (BMI) [Ratio] 35.8 kg/m2 Dr. César Merrill Work Phone: [facility] 07-04-2022 09:18-0500 Body weight 100.[address] César Merrill Work Phone: [facility] 07-04-2022 09:18-0500 Diastolic blood pressure 67 mm[Hg] Dr. César Merrill Work Phone: [facility] 07-04-2022 09:18-0500 Heart rate 62 /min Dr. César Merrill Work Phone: [facility] 07-04-2022 09:18-0500 Respiratory rate 18 /min Dr. César Merrill Work Phone: [facility] 07-04-2022 09:18-0500 SaO2% (BldA) [Mass fraction] 95 % Dr. César Merrill Work Phone: [facility] 07-04-2022 09:18-0500 Systolic blood pressure 133 mm[Hg] Dr. César Merrill Work Phone: [facility] 05-31-2022 07:54-0500 Body height 165.1 cm César Mrerill MD Work Phone: [facility] 05-31-2022 07:54-0500 Body weight 100.7 kg César Merrill MD Work Phone: [facility] 05-31-2022 07:54-0500 Diastolic blood pressure 68 mm[Hg] César Merrill MD Work Phone: [facility] 05-31-2022 07:54-0500 Heart rate 64 /min César Merrill MD Work Phone: [facility] 05-31-2022 07:54-0500 Respiratory rate 16 /min César Merrill MD Work Phone: [facility] 05-31-2022 07:54-0500 Systolic blood pressure 132 mm[Hg] César Merrill MD Work Phone: [facility] 01-11-2022 10:33-0400 Diastolic blood pressure 68 mm[Hg] Dr. César Merrill Work Phone: [facility] Work Phone: 01-11-2022 10:33-0400 Heart rate 60 /min Dr. César Merrill Work Phone: [facility] Work Phone: 01-11-2022 10:33-0400 Systolic blood pressure 142 mm[Hg] Dr. César Merrill Work Phone: [facility] Work Phone: 01-11-2022 10:00-0400 Body height 167.[address] César Merrill Work Phone: [facility] Work Phone: 01-11-2022 10:00-0400 Body mass index (BMI) [Ratio] 34.8 kg/m2 Dr. César Merrill Work Phone: [facility] Work Phone: 01-11-2022 10:00-0400 Body weight 97.[address] César Merrill Work Phone: [facility] Work Phone: 01-11-2022 10:00-0400 Respiratory rate 16 /min Dr. César Merrill Work Phone: [facility] Work Phone: 11-15-2021 08:00-0400 Body weight 98.43 kg César Merrill MD Work Phone: [facility] 11-15-2021 08:00-0400 Diastolic blood pressure 84 mm[Hg] César Merrill MD Work Phone: [facility] 11-15-2021 08:00-0400 Heart rate 78 /min César Merrill MD Work Phone: [facility] 11-15-2021 08:00-0400 Respiratory rate 14 /min César Merrill MD Work Phone: [facility] 11-15-2021 08:00-0400 Systolic blood pressure 132 mm[Hg] César Merrill MD Work Phone: [facility] 09-23-2021 11:04-0400 Body temperature 98.49 [degF] Katarzyna Munson PA-C Work Phone: [facility] 09-23-2021 11:04-0400 Body weight 96.16 kg Katarzyna Munson PA-C Work Phone: [facility] 09-23-2021 11:04-0400 Diastolic blood pressure 60 mm[Hg] Katarzyna Munson PA-C Work Phone: [facility] 09-23-2021 11:04-0400 Heart rate 68 /min Katarzyna Munson PA-C Work Phone: [facility] 09-23-2021 11:04-0400 Respiratory rate 16 /min Katarzyna Munson PA-C Work Phone: [facility] 09-23-2021 11:04-0400 Systolic blood pressure 110 mm[Hg] Katarzyna Munson PA-C Work Phone: [facility] 09-19-2021 09:29-0400 Body temperature 98.71 [degF] César Ghotra ENVIRONMENTAL SCIENCE INSTRUCTOR.VEHICLE TRIMMER Work Phone: [facility] 09-19-2021 09:29-0400 Body weight 93.44 kg César Ghotra ENVIRONMENTAL SCIENCE INSTRUCTOR.VEHICLE TRIMMER Work Phone: [facility] 09-19-2021 09:29-0400 Diastolic blood pressure 56 mm[Hg] César Ghotra ENVIRONMENTAL SCIENCE INSTRUCTOR.VEHICLE TRIMMER Work Phone: [facility] 09-19-2021 09:29-0400 Heart rate 92 /min César Ghotra ENVIRONMENTAL SCIENCE INSTRUCTOR.VEHICLE TRIMMER Work Phone: [facility] 09-19-2021 09:29-0400 Respiratory rate 16 /min César Ghotra ENVIRONMENTAL SCIENCE INSTRUCTOR.VEHICLE TRIMMER Work Phone: [facility] 09-19-2021 09:29-0400 SaO2% (BldA) [Mass fraction] 97 % César Ghotra ENVIRONMENTAL SCIENCE INSTRUCTOR.VEHICLE TRIMMER Work Phone: [facility] 09-19-2021 09:29-0400 Systolic blood pressure 132 mm[Hg] César Ghotra ENVIRONMENTAL SCIENCE INSTRUCTOR.VEHICLE TRIMMER Work Phone: [facility] 07-14-2021 10:03-0400 Body height 167.[address] César Merrill Work Phone: [facility] Work Phone: 07-14-2021 10:03-0400 Body mass index (BMI) [Ratio] 33.3 kg/m2 Dr. César Merrill Work Phone: [facility] Work Phone: 07-14-2021 10:03-0400 Body weight 93.[address] éCsar Merrill Work Phone: [facility] Work Phone: 07-14-2021 10:03-0400 Diastolic blood pressure 58 mm[Hg] Dr. César Merrill Work Phone: [facility] Work Phone: 07-14-2021 10:03-0400 Heart rate 60 /min Dr. César Merrill Work Phone: [facility] Work Phone: 07-14-2021 10:03-0400 Respiratory rate 16 /min Dr. César Merrill Work Phone: [facility] Work Phone: 07-14-2021 10:03-0400 Systolic blood pressure 130 mm[Hg] Dr. César Merrill Work Phone: [facility] Work Phone: 01-29-2017 08:41-0400 BMI (Body Mass Index) 31.95 kg/m2 [facility] Work Phone: 01-29-2017 08:41-0400 BP Diastolic 72 mm[Hg] Padma Samuel [facility] Work Phone: 01-29-2017 08:41-0400 BP Systolic 130 mm[Hg] Padmajanell Baker [facility] Work Phone: 01-29-2017 08:41-0400 Height 167.64 cm Padma Baker [facility] Work Phone: 01-29-2017 08:41-0400 Pulse (Heart Rate) 58 /min Padma Samuel [facility] Work Phone: 01-29-2017 08:41-0400 Respiratory Rate 18 /min Padma Baker [facility] Work Phone: 01-29-2017 08:41-0400 Weight 89.81 kg Padma Baker [facility] Work Phone: 07-17-2016 12:00-0400 BMI (Body Mass Index) 33.73 kg/m2 Trey Manas PROGRAM ADVISOR [facility] Work Phone: 07-17-2016 12:00-0400 BP Diastolic 52 mm[Hg] Trey Manas PROGRAM ADVISOR [facility] Work Phone: 07-17-2016 12:00-0400 BP Systolic 128 mm[Hg] Trey Manas PROGRAM ADVISOR [facility] Work Phone: 07-17-2016 12:00-0400 Height 167.64 cm Trey Manas PROGRAM ADVISOR [facility] Work Phone: 07-17-2016 12:00-0400 Pulse (Heart Rate) 60 /min Trey Manas PROGRAM ADVISOR [facility] Work Phone: 07-17-2016 12:00-0400 Respiratory Rate 18 /min Trey Manas PROGRAM ADVISOR [facility] Work Phone: 07-17-2016 12:00-0400 Weight 94.8 kg Trey Manas PROGRAM ADVISOR [facility] Work Phone: 01-14-2016 11:48-0400 BSA (Body Surface Area) 2.06 m2 Trey Manas PROGRAM ADVISOR [facility] Work Phone: 07-19-2015 09:04-0400 BP Diastolic 80 mm[Hg] Trey Manas PROGRAM ADVISOR [facility] Work Phone: 07-19-2015 09:04-0400 BP Systolic 130 mm[Hg] Trey Manas PROGRAM ADVISOR [facility] Work Phone: 01-20-2014 14:06-0400 Heart rate 401 ms Padma Baker [facility] Work Phone: 01-20-2014 14:06-0400 Heart rate 61 /min Padma Baker [facility] Work Phone: Encounters Encounter Date Encounter Type Care Provider Facility Start: 03-05-2025 End: 03-05-2025 Office outpatient new 45 minutes Zunilda Barrientos MD Work Phone: [facility] Comment on above: 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 Start: 02-26-2025 Encounter for other preprocedural examination Lenny Oden [facility] Start: 02-19-2025 End: 02-19-2025 Office outpatient visit 15 minutes Payton Brizuela MD Work Phone: [facility] Comment on above: Coronary artery dise ase involving [place] coronary artery of [place] heart without angina pectoris (Primary Dx) Start: 02-19-2025 End: 02-19-2025 ambulatory PAYTON BRIZUELA [facility] Start: 02-05-2025 ambulatory éCsar Merrill Facility :[facility] Start: 02-05-2025 End: 02-05-2025 ambulatory César Desirae Facility:[facility] Start: 01-27-2025 End: 01-27-2025 ambulatory CÉSAR MERRILL Facility:[facility] Start: 01-27-2025 End: 01-27-2025 ambulatory CÉSAR MERRILL Facility:[facility] Start: 01-15-2025 ambulatory César Merrill Facility :[facility] Start: 01-15-2025 Non-patient / Non-visit Dr. Savana BAIN [facility] Start: 01-15-2025 End: 01-15-[address] César Merrill MD Work Phone: -Cardiovascular Services Start: 01-15-2025 End: 01-15-[address] 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 Debbie Remy MD -[employer]/Special Procedures Work Phone: Start: 11-27-2024 End: 11-27-[address] César Merrill MD Work Phone: -[facility] [facility]/Special Procedures Start: 11-21-2024 End: 11-21-[address] César Merrill MD Work Phone: -Radiology [facility] Start: 11-21-2024 End: 11-21-2024 Patient encounter procedure Trey Malagon PROGRAM ADVISOR-C -Radiology [facility] Work Phone: Start: 11-21-2024 End: 11-21-2024 ambulatory Trey Malagon NP Facility:[facility] Start: 11-20-2024 Encounter for preprocedural cardiovascular examination [facility] Start: 11-14-2024 End: 11-14-[address] John Nieto MD -[facility] Work Phone: Start: 11-14-2024 End: 11-14-[address] César Merrill MD Work Phone: -[facility] Start: 11-12-2024 End: 11-12-2024 Chart abstracting César Merrill MD Work Phone: [facility] [place] Comment on above: Outside Stress Test Start: 11-12-2024 ambulatory Debbie Remy Facility:[facility] Start: 11-12-2024 Non-patient / Non-visit Dr. Debbie lloyd MD -[facility] Start: 11-12-2024 End: 11-12-[address] César Merrill MD Work Phone: -Cardiovascular Services Start: 11-12-2024 End: 11-12-2024 Patient encounter procedure Trey Malagon PROGRAM ADVISOR-C -Cardiovascular Services Work Phone: Start: 11-12-2024 End: 11-12-2024 ambulatory Trey Malagon NP Facility:[facility] Start: 11-04-2024 End: 11-04-2024 ambulatory Lenny Taylor Facility:[facility] Start: 10-29-2024 Encounter for preprocedural cardiovascular examination Trey Malagon PROGRAM ADVISOR [facility] Start: 10-29-2024 End: 10-29-2024 Patient encounter procedure Trey Malagon PROGRAM ADVISOR-C -[facility] Work Phone: Start: 10-29-2024 End: 10-29-2024 Patient encounter status Trey Malagon PROGRAM ADVISOR-C [facility] Start: 10-29-2024 End: 10-29-[address] César Merrill MD Work Phone: -[facility] Start: 10-17-2024 End: 10-17-2024 Chart abstracting Diamond Cain MA [facility] Comment on above: Results (Outside res ults /) Start: 10-14-2024 End: 10-14-2024 Refill César Merrill MD Work Phone: [facility] Comment on above: Refill Request Start: 10-09-2024 End: 10-09-[address] Lenny Taylor MD -[facility] Work Phone: Start: 10-09-2024 End: 10-09-[address] César Merrill MD Work Phone: [facility] Work Phone: Start: 10-03-2024 End: 10-03-[address] César Merrill MD Work Phone: [facility] Work Phone: Start: 10-03-2024 End: 10-03-2024 [facility] Start: 10-03-2024 End: 10-03-2024 ambulatory César Merrill Facility:[facility] Start: 09-10-2024 End: 09-10-2024 Refill César Merrill MD Work Phone: Family [facility] [place] Comment on above: Refill Request Start: 09-02-2024 End: 09-02-2024 Chart abstracting César Merrill MD Work Phone: [facility] Comment on above: Outside Vascular Start: 08-29-2024 End: 08-29-2024 [facility] Work Phone: Start: 08-29-2024 End: 08-29-2024 ambulatory César Merrill Facility:[facility] Start: 08-21-2024 End: 08-21-2024 ambulatory CÉSAR MERRILL Facility:[facility] Start: 07-31-2024 End: 08-05-2024 Telephone encounter César Merrill MD Work Phone: Family [facility] Comment on above: Patient Update Start: 07-25-2024 End: 07-30-2024 Follow-up encounter César Merrill MD Work Phone: Family [facility] Start: 07-24-2024 End: 07-24-2024 ambulatory CÉSAR MERRILL Facility:[facility] Start: 07-24-2024 End: 07-24-2024 Ophthalmic examination and evaluation César Merrill MD Work Phone: [facility] Start: 07-24-2024 End: 07-24-2024 Patient encounter procedure César Merrill MD Work Phone: Family [facility] [place] Comment on above: Well adult exam ([facility] katie Dx); Type 2 diabetes mellitus without complication, without long-term current use of insulin (HCC); Diabetic eye exam (HCC); Hypertension, essential; Mixed hyperlipidemia; Atherosclerosis of [place] coronary artery of [place] heart without angina pectoris; KARLA (obstructive sleep apnea); Vitamin B12 deficiency; Benign prostatic hyperplasia with urinary frequency; Nocturnal leg cramps; Cyanosis; Diminished pulses in lower extremity; Screening for depression; Advance directive discussed with patient; Encounter for screening examination for other mental health and behavioral disorders Start: 07-24-2024 End: 07-24-2024 Patient encounter status César Merrill MD Work Phone: [facility] Start: 07-24-2024 Encounter for genera l adult medical examination without abnormal findings CÉSAR MERRILL [facility] Start: 07-24-2024 End: 07-24-2024 ambulatory CÉSAR MERRILL Facility:[facility] Start: 07-18-2024 End: 07-18-2024 Telephone encounter César Merrill MD Work Phone: [facility] Comment on above: Refill Request Start: 07-10-2024 End: 07-10-[address] London Tobar MD -[facility] Work Phone: Start: 07-10-2024 End: 07-10-2024 ambulatory César Merrill Facility:[facility] Start: 07-04-2024 End: 07-04-2024 Chart abstracting César Merrill MD Work Phone: [facility] Comment on above: Outside Diabetic Eye Exam Start: 06-10-2024 End: 06-10-2024 ambulatory CÉSAR MERRILL Facility:[facility] Start: 06-10-2024 End: 06-10-2024 Patient encounter procedure Deysi Cain APRN.CNP Work Phone: [facility] Comment on above: URI, acute (Primary Dx) Start: 02-15-2024 End: 02-15-2024 Telephone encounter César Merrill MD Work Phone: [facility] Comment on above: Results Start: 02-14-2024 End: 02-14-2024 Ophthalmic examination and evaluation César Merrill MD Work Phone: [facility] Start: 02-14-2024 End: 02-14-2024 Patient encounter procedure César Merrill MD Work Phone: [facility] Comment on above: Type 2 diabetes channing itus without complication, without long- term current use of insulin (HCC) (Primary Dx); Diabetic eye exam (HCC); Hypertension, essential; Mixed hyperlipidemia; Atherosclerosis of [place] coronary artery of [place] heart without angina pectoris; KARLA (obstructive sleep apnea); Vitamin B12 deficiency; Need for vaccination; Encounter for immunization Start: 09-14-2023 Telephone encounter César Merrill MD Work Phone: [facility] [place] Comment on above: Results Start: 08-16-2023 Telephone encounter César Merrill MD Work Phone: [facility] Comment on above: Results Start: 08-09-2023 Telephone encounter César Merrill MD Work Phone: [facility] Comment on above: Results Start: 08-08-2023 End: 08-08-2023 Ophthalmic examination and evaluation César Merrill MD Work Phone: [facility] Work Phone: Start: 08-08-2023 End: 08-08-2023 Patient encounter procedure César Merrill MD Work Phone: [facility] [place] Comment on above: Well adult exam ([facility] katie Dx); Type 2 diabetes mellitus without complication, without long-term current use of insulin (HCC); Diabetic eye exam (HCC); Hypertension, essential; Mixed hyperlipidemia; Atherosclerosis of [place] coronary artery of [place] heart without angina pectoris; KARLA (obstructive sleep apnea); Benign prostatic hyperplasia with urinary frequency; Advance directive discussed with patient; Screening for colon cancer; Prostate disorder; Nocturnal leg cramps Start: 08-08-2023 End: 08-08-2023 Patient encounter status César Merrill MD Work Phone: [facility] Work Phone: Start: 04-19-2023 End: 04-19-2023 Patient encounter procedure May Ragland MD Work Phone: Pulmonary Medicine Comment on above: Hypoxemia (Primary D x); History of COVID-19 Start: 04-14-2023 Non-patient / Non-visit Dr. Riccardo Merrill Work Phone: [facility] Work Phone: Start: 04-13-2023 Non-patient / Non-visit Dr. Riccardo Merrill Work Phone: [facility] Work Phone: Start: 04-12-2023 Non-patient / Non-visit Dr. Riccardo Merrill Work Phone: [facility] Work Phone: Start: 04-12-2023 End: 04-14-2023 Evaluation and management of inpatient Dr. César Merrill Work Phone: [facility] Work Phone: Start: 04-12-2023 End: 04-14-[address] César Merrill Work Phone: [facility] Work Phone: Start: 04-10-2023 Chart abstracting César winn MD Work Phone: [facility] Start: 04-10-2023 Ophthalmic examinati on and evaluation César Merrill MD Work Phone: [facility] Start: 03-26-2023 End: 03-26-2023 Patient encounter procedure Melody Cano APRN.VEHICLE TRIMMER Work Phone: [facility] Comment on above: Preop examination (P rimary Dx) Start: 03-26-2023 End: 03-26-2023 Preprocedural examination done Melody Cano APRN.VEHICLE TRIMMER Work Phone: [facility] Work Phone: Start: 03-15-2023 Telephone encounter César Merrill MD Work Phone: [facility] [place] Comment on above: pre-op form Start: 03-09-2023 End: 03-09-[address] César Merrill Work Phone: [facility] Work Phone: Start: 11-10-2022 Refill César guevara MD Work Phone: [facility] Comment on above: Refill Request Start: 08-08-2022 Refill César guevara MD Work Phone: [facility] Comment on above: Refill Request Start: 07-06-2022 Chart abstracting César winn MD Work Phone: [facility] Comment on above: Consult (Consult to Cardiology/labs) Start: 07-04-2022 End: 07-04-[address] César Merrill Work Phone: [facility] Work Phone: Start: 07-04-2022 End: 07-04-[address] César Merrill Work Phone: [facility] Start: 05-31-2022 End: 05-31-2022 Ophthalmic examination and evaluation César Merrill MD Work Phone: [facility] Start: 05-31-2022 End: 05-31-2022 Patient encounter procedure César Merrill MD Work Phone: [facility] Comment on above: Well adult exam ([place] katie Dx); Type 2 diabetes mellitus without complication, without long-term current use of insulin (HCC); Diabetic eye exam (HCC); Hypertension, essential; Mixed hyperlipidemia; Atherosclerosis of [place] coronary artery of [place] heart without angina pectoris; KARLA (obstructive sleep apnea); Benign prostatic hyperplasia with urinary frequency; Osteoarthritis of multiple joints, unspecified osteoarthritis type; Advance directive discussed with patient; Encounter for immunization; Screening for colon cancer; Prostate disorder Start: 05-31-2022 End: 05-31-2022 Patient encounter status César Merrill MD Work Phone: [facility] Start: 05-08-2022 Refill César guevara MD Work Phone: [facility] Comment on above: Refill Request Start: 04-05-2022 Telephone encounter Meggan DuffyLoreeGwen Milligan Work Phone: Pulmonary Medicine Comment on above: Orders Start: 03-21-2022 Ophthalmic examinati on and evaluation Meggan Srini Work Phone: [facility] Start: 02-10-2022 Refill César guevara MD Work Phone: [facility] Comment on above: Refill Request Start: 01-24-2022 Non-patient / Non-visit Dr. Riccardo Merrill Work Phone: [facility] Start: 01-24-2022 End: 01-24-[address] César Merrill Work Phone: [facility] Work Phone: Start: 01-24-2022 End: 01-24-[address] César Merrill Work Phone: [facility]Card[facility] Start: 01-11-2022 End: 01-11-[address] César Merrill Work Phone: [facility] Start: 11-16-2021 Telephone encounter César Merrill MD Work Phone: [facility] Comment on above: Results Start: 11-15-2021 End: 11-15-2021 Ophthalmic examination and evaluation César Merrill MD Work Phone: [facility] Start: 11-15-2021 End: 11-15-2021 Patient encounter procedure César Merrill MD Work Phone: [facility] Comment on above: Type 2 diabetes channing itus without complication, without long- term current use of insulin (HCC) (Primary Dx); Diabetic eye exam (HCC); Hypertension, essential; Mixed hyperlipidemia; Atherosclerosis of [place] coronary artery of [place] heart without angina pectoris; KARLA (obstructive sleep apnea); Nocturnal leg cramps; Benign prostatic hyperplasia with urinary frequency; Living will in place; Advance directive discussed with patient Start: 09-27-2021 Telephone encounter Katarzyna huddleston PA-C Work Phone: [facility] Comment on above: Results Start: 09-23-2021 End: 09-23-2021 Patient encounter procedure Katarzyna Munson PA-C Work Phone: [facility] Comment on above: Generalized abdomina l pain (Primary Dx); Hypercalcemia Start: 09-19-2021 Telephone encounter Tiff Natalee manuel ENVIRONMENTAL SCIENCE INSTRUCTOR.VEHICLE TRIMMER Work Phone: [facility] Comment on above: Results Start: 09-19-2021 End: 09-19-2021 Patient encounter procedure César Ghotra ENVIRONMENTAL SCIENCE INSTRUCTOR.VEHICLE TRIMMER Work Phone: [facility] Comment on above: Abdominal pain, gene ralized (Primary Dx) Start: 08-09-2021 Refill César guevara MD Work Phone: [facility] Comment on above: Refill Request Start: 07-21-2021 Chart abstracting César winn MD Work Phone: [facility] Comment on above: Outside Labs Results Start: 07-21-2021 End: 07-21-[address] César Merrill Work Phone: [facility] Start: 07-14-2021 End: 07-14-[address] César Merrill Work Phone: [facility] Start: 06-27-2021 Refill César guevara MD Work Phone: [facility] Comment on above: Refill Request (NEW PHARMACY) Start: 05-12-2021 Patient encounter status Jorge Merrill MD Work Phone: [facility] Work Phone: Start: 02-24-2021 Ophthalmic examinati on and evaluation César Merrill MD Work Phone: [facility] Start: 02-11-2021 End: 02-11-2021 Subsequent hospital visit by physician X[facility] [place] Work Phone: Radiology Comment on above: Pneumonia due to COV ID-19 virus [U07.1, J12.82] Procedures Date Procedure Procedure Detail Performing Clinician Start: 03-05-2025 Ecg routine ecg w/least 12 lds w/i&r Zunilda Barrientos MD Work Phone: Start: 01-15-2025 CT of chest without contrast Dr. César Merrill MD Work Phone: Start: 11-21-2024 X-ray of chest, PA and lateral views Dr. César Merrill MD Work Phone: Start: 11-12-2024 Cardiovascular stress test using pharmacologic stress agent Dr. César Merrill MD Work Phone: Start: 10-03-2024 CT of abdominal aorta with contrast Dr. César Merrill MD Work Phone: Start: 07-24-2024 Adult depression screening assessment César Merrill MD Work Phone: Start: 08-08-2023 Adult depression screening assessment [facility] Work Phone: Start: 04-13-2023 Nucleic acid [...] Radiologic exam chest 2 views Terry Sullivan APRN.MARIANNA SEPULVEDA Work Phone: Start: 01-29-2017 End: 01-29-2017 GREGORY [...] MD Work Phone: Start: 07-19-2015 End: 07-19-2015 BONNIEN Terry Barba MD Work Phone: Start: 07-19-2015 [...] Date Care Activity Detail Author Start: 10-27-2030 DTaP/Tdap/Td Vaccine s (3 - Td or Tdap) DTaP/Tdap/Td Vaccines (3 - Td or Tdap) [facility] Start: 10-27-2030 Urine microalbumin profile [facility] Start: 02-13-2027 Diabetes Screening Diabetes Screenin g [facility] Start: 01-27-2026 Diabetes: Estimated Glomerular Filtration Rate for Kidney [facility] Diabetes: Estimated Glomerular Filtration Rate for Kidney [facility] Start: 07-24-2025 Annual PCP Team Party Plan Sales Unit Sales Leader kay Disease Visit Annual PCP Team Chronic Disease Visit [facility] Start: 07-24-2025 Anxiety Screening Anxiety Screening [facility] Start: 07-24-2025 BP Controlled (<130/80) BP Controlle d (<130/80) [facility] Start: 07-24-2025 Depression Screening Depression Scre ening The [facility] Start: 07-24-2025 Diabetes: Estimated Glomerular Filtration Rate for Kidney [facility] Diabetes: Estimated Glomerular Filtration Rate for Kidney [facility] Start: 07-24-2025 Diabetes: Urine Albumin-Creatinine Ratio for Kidney [facility] Diabetes: Urine Albumin-Creatinine Ratio for Kidney [facility] Start: 07-24-2025 Diabetic foot examination Diabetic F oot Exam [facility] Start: 07-24-2025 Hepatitis B screening Urine Albumin:Creatinine Ratio [facility] Start: 07-24-2025 Hepatitis B surface antibody level LDL Cholesterol [facility] Start: 07-03-2025 Glaucoma screening Dilated Retinal E xam [facility] Start: 03-05-2025 End: 03-05-2026 CBC W Auto Differential panel - Blood CBC auto differential Lab Routine Shortness of breath Expected: 03/05/2025 (Approximate), Expires: 03/05/2026 [facility] Work Phone: Comment on above: Expected: 03/05/2025 (Approximate), Expires: 03/05/2026 Start: 03-05-2025 End: 03-05-2026 Comprehensive metabolic 1998 panel - Serum or Plasma Comprehensive metabolic panel Lab Routine Shortness of breath Expected: 03/05/2025 (Approximate), Expires: 03/05/2026 [facility] Comment on above: Expected: 03/05/2025 (Approximate), Expires: 03/05/2026 Start: 03-05-2025 End: 03-05-2026 Lipid 1996 panel - Serum or Plasma Lipid panel Lab Routine Shortness of breath Expected: 03/05/2025 (Approximate), Expires: 03/05/2026 [facility] Comment on above: Expected: 03/05/2025 (Approximate), Expires: 03/05/2026 Start: 03-05-2025 End: 03-05-2026 Natriuretic peptide B [Mass/volume] in Blood NT PRO BNP Lab Routine Shortness of breath Expected: 03/05/2025 (Approximate), Expires: 03/05/2026 [facility] Comment on above: Expected: 03/05/2025 (Approximate), Expires: 03/05/2026 Start: 02-13-2025 Annual PCP Team Party Plan Sales Unit Sales Leader kay Disease Visit Annual PCP Team Chronic Disease Visit [facility] Start: 02-13-2025 BP Controlled (<130/80) BP Controlle d (<130/80) [facility] Start: 01-27-2025 End: 01-27-2025 Patient encounter procedure 01/27/2025 8:40 AM EDT Office Visit [facility] [address] [place] [address] César Merrill MD [address] [place] [id number] 6 month follow up [facility] Comment on above: 6 month follow up Start: 01-24-2025 Hemoglobin A1c measurement HbA1C [facility] Start: 12-29-2024 COVID-19 Vaccine ( season) COVID-19 Vaccine ( season) [facility] Start: 12-29-2024 COVID-19 Vaccine ( season) COVID-19 Vaccine ( season) [facility] Start: 12-29-2024 Influenza vaccination Influenza Vacc ine (#1) [facility] Start: 11-27-2024 [facility] Start: 10-29-2024 End: 10-29-2024 Evaluation of diagnostic study results [facility] Start: 08-21-2024 End: 08-21-2024 Patient encounter procedure 08/21/2024 12:30 PM EDT Office Visit [facility] [address] [place] [address] Cyanosis [R23.0]; Diminished pulses in lower extremity [R09.89] [facility] Comment on above: Cyanosis [R23.0]; Di minished pulses in lower extremity [R09.89] Start: 08-14-2024 Hemoglobin A1c measurement HbA1C [facility] Start: 08-14-2024 End: 08-14-2024 Patient encounter procedure [facility] Comment on above: physical physical-discuss med compliance Start: 08-07-2024 Annual PCP Team Party Plan Sales Unit Sales Leader kay Disease Visit Annual PCP Team Chronic Disease Visit [facility] Start: 08-07-2024 Anxiety Screening Anxiety Screening [facility] Start: 08-07-2024 BP Controlled (<130/80) BP Controlle d (<130/80) [facility] Start: 08-07-2024 Depression Screening Depression Scre ening [facility] Start: 08-07-2024 Diabetic foot examination Diabetic F oot Exam [facility] Start: 08-07-2024 Hepatitis B screening Urine Albumin:Creatinine Ratio [facility] Start: 08-07-2024 Hepatitis B surface antibody level LDL Cholesterol [facility] Start: 08-07-2024 RSV Vaccine (1 - 1-d ose 60+ series) RSV Vaccine (1 - 1-dose 60+ series) [facility] Comment on above: Postponed from 02/18 (Insurance Coverage) Start: 08-07-2024 RSV Vaccine (1 - 1-d ose 75+ series) RSV Vaccine (1 - 1-dose 75+ series) [facility] Comment on above: Postponed from 02/18 (Insurance Coverage) Start: 08-07-2024 Shingrix Vaccine (2 of 2) Tam grix Vaccine (2 of 2) [facility] Comment on above: Postponed from 12/22 (Declined at this time) Start: 07-24-2024 End: 10-23-2024 Microalbumin/Creatinine [Mass Ratio] in Urine [facility] Work Phone: Comment on above: Expected: 07/24/2024 , Expires: 10/23/2024 Start: 04-30-2024 Advance Directive Discussion Advance Directive Discussion [facility] Start: 04-10-2024 Glaucoma screening Dilated Retinal E xam [facility] Start: 03-26-2024 Annual PCP Team Party Plan Sales Unit Sales Leader kay Disease Visit Annual PCP Team Chronic Disease Visit [facility] Start: 02-14-2024 End: 02-14-2024 Patient encounter procedure 02/14/2024 9:20 AM EDT Office Visit [facility] [address] [place] [phone] César Merrill MD [address] [place] [id number] 6 month follow up [facility] Comment on above: 6 month follow up Start: 02-07-2024 Hemoglobin A1c measurement HbA1C [facility] Start: 02-06-2024 Annual PCP Team Party Plan Sales Unit Sales Leader kay Disease Visit Annual PCP Team Chronic Disease Visit [facility] Start: 02-06-2024 BP Controlled (<130/80) BP Controlle d (<130/80) [facility] Start: 02-06-2024 Covid-19 Vaccine (#1) Covid-19 Vacci ne (#1) [facility] Comment on above: Postponed from 08/19 (Declined at this time) Start: 02-06-2024 Covid-19 Vaccine ( season) Covid-19 Vaccine () [facility] Comment on above: Postponed from 12/29 (Declined at this time) Start: 02-06-2024 Hepatitis B Vaccine (1 of 3 - Risk 3-dose series) Hepatitis B Vaccine (1 of 3 - Risk 3-dose series) [facility] Comment on above: Postponed from 02/18 (Declined at this time) Start: 12-30-2023 Covid-19 Vaccine ( season) Covid-19 Vaccine () [facility] Start: 12-30-2023 Influenza vaccination Influenza Vacc ine (#1) [facility] Start: 09-14-2023 End: 12-14-2023 CBC W Auto Differential panel - Blood COMPLETE BLOOD COUNT AND DIFFERENTIAL Lab Routine Vitamin B12 deficiency Expected: 09/14/2023, Expires: 12/14/2023 [facility] Work Phone: Comment on above: Expected: 09/14/2023 , Expires: 12/14/2023 Start: 09-14-2023 End: 12-14-2023 Cobalamin (Vitamin B12) [Mass/volume] in Serum or Plasma VITAMIN B12 Lab Routine Vitamin B12 deficiency Expected: 09/14/2023, Expires: 12/14/2023 [facility] Work Phone: Comment on above: Expected: 09/14/2023 , Expires: 12/14/2023 Start: 08-09-2023 End: 11-08-2023 Cobalamin (Vitamin B12) [Mass/volume] in Serum or Plasma VITAMIN B12 Lab Routine Anemia, unspecified type Expected: 08/09/2023, Expires: 11/08/2023 [facility] Work Phone: Comment on above: Expected: 08/09/2023 , Expires: 11/08/2023 Start: 08-09-2023 End: 11-08-2023 Ferritin [Mass/volume] in Serum or Plasma FERRITIN Lab Routine Anemia, unspecified type Expected: 08/09/2023, Expires: 11/08/2023 [facility] Work Phone: Comment on above: Expected: 08/09/2023 , Expires: 11/08/2023 Start: 08-09-2023 End: 11-08-2023 Folate [Mass/volume] in Serum or Plasma FOLATE, SERUM Lab Routine Anemia, unspecified type Expected: 08/09/2023, Expires: 11/08/2023 [facility] Work Phone: Comment on above: Expected: 08/09/2023 , Expires: 11/08/2023 Start: 08-09-2023 End: 11-08-2023 Iron and Iron binding capacity panel - Serum or Plasma IRON AND TIBC Lab Routine Anemia, unspecified type Expected: 08/09/2023, Expires: 11/08/2023 [facility] Work Phone: Comment on above: Expected: 08/09/2023 , Expires: 11/08/2023 Start: 05-31-2023 3 comp foot exam completed DIABETIC FOOT EXAM [facility] Start: 05-31-2023 ANNUAL PCP TEAM TECHNICAL DESIGNER KAY DISEASE VISIT ANNUAL PCP TEAM CHRONIC DISEASE VISIT [facility] Start: 05-31-2023 Diabetic foot examination Diabetic F oot Exam [facility] Start: 05-31-2023 Hepatitis B screening URINE ALBUMIN:CREATININE RATIO [facility] Start: 05-31-2023 Hepatitis B surface antibody level LDL CHOLESTEROL [facility] Start: 04-14-2023 Patient discharge [facility] Start: 04-13-2023 Continuous pulse oximetry [facility] Start: 04-13-2023 Physiotherapy of chest [facility] Start: 04-13-2023 Inhalation therapy procedure [facility] Start: 04-12-2023 Care regimes management [facility] Start: 04-12-2023 Notification of physician [facility] Start: 04-12-2023 Oxygen therapy [facility] Start: 04-12-2023 Following clinical p athway protocol [facility] Start: 04-12-2023 Admission procedure [facility] Start: 04-12-2023 Application of ice c ollar, cap or bag [facility] Start: 04-12-2023 Application of intermittent pneumatic compression device [facility] Start: 04-12-2023 Catheterization of vein [facility] Start: 04-12-2023 Consultation [facility] Start: 04-12-2023 Following clinical p athway protocol [facility] Start: 04-12-2023 Introduction of urin cas catheter [facility] Start: 04-12-2023 Maintenance of drain age tube [facility] Start: 04-12-2023 Measuring intake and output [facility] Start: 04-12-2023 Neurovascular assessment [facility] Start: 04-12-2023 Patient education [facility] Start: 04-12-2023 Procedure discontinued [facility] Start: 04-12-2023 Provision of activit y privileges [facility] Start: 04-12-2023 Recommendation to co ntinue with treatment [facility] Start: 04-12-2023 Referral to service [facility] Start: 04-12-2023 Taking patient vital signs [facility] Start: 03-16-2023 Hepatitis C antibody , confirmatory test DILATED RETINAL EXAM [facility] Start: 12-29-2022 Influenza vaccination INFLUENZA (#1) [facility] Start: 11-28-2022 Hemoglobin A1c measurement HbA1C [facility] Start: 11-28-2022 Hemoglobin A1c/Hemoglobin.total in Blood HBA1C [facility] Start: 11-15-2022 ANNUAL PCP TEAM TECHNICAL DESIGNER KAY DISEASE VISIT ANNUAL PCP TEAM CHRONIC DISEASE VISIT [facility] Start: 11-15-2022 BP CONTROLLED (<130/80) BP CONTROLLE D (<130/80) [facility] Start: 11-15-2022 COVID-19 VACCINE (#1) COVID-19 VACCI NE (#1) [facility] Comment on above: Postponed from 08/19 (Declined at this time) Start: 11-15-2022 Hepatitis B screening URINE ALBUMIN:CREATININE RATIO [facility] Start: 11-15-2022 Hepatitis B surface antibody level LDL CHOLESTEROL [facility] Start: 11-15-2022 SHINGRIX VACCINE (2 of 2) TAM GRIX VACCINE (2 of 2) [facility] Comment on above: Postponed from 12/22 (Insurance Coverage) Start: 09-23-2022 ANNUAL PCP TEAM TECHNICAL DESIGNER KAY DISEASE VISIT ANNUAL PCP TEAM CHRONIC DISEASE VISIT [facility] Start: 09-23-2022 BP CONTROLLED (<130/80) BP CONTROLLE D (<130/80) [facility] Start: 06-05-2022 FECAL OCCULT BLOOD FECAL OCCULT BLOO D [facility] Start: 06-05-2022 Screening for malign ant neoplasm of colon Fecal Occult Blood [facility] Start: 05-31-2022 End: 07-31-2022 ALBUMIN/CREAT RATIO RND UR [facility] Work Phone: Comment on above: Expected: 05/31/2022 , Expires: 07/31/2022 Start: 05-31-2022 End: 07-31-2022 Hemoglobin A1c in Blood [facility] Work Phone: Comment on above: Expected: 05/31/2022 , Expires: 07/31/2022 Start: 05-31-2022 End: 07-31-2022 Urinalysis complete panel - Urine [facility] Work Phone: Comment on above: Expected: 05/31/2022 , Expires: 07/31/2022 Start: 05-18-2022 Hemoglobin A1c/Hemoglobin.total in Blood HBA1C [facility] Start: 05-12-2022 3 comp foot exam completed DIABETIC FOOT EXAM [facility] Start: 05-12-2022 ANNUAL PCP TEAM TECHNICAL DESIGNER KAY DISEASE VISIT ANNUAL PCP TEAM CHRONIC DISEASE VISIT [facility] Start: 04-30-2022 ADVANCE DIRECTIVE DISCUSSION ADVANCE DIRECTIVE DISCUSSION [facility] Start: 04-30-2022 DEPRESSION ASSESSMENT DEPRESSION ASS ESSMENT [facility] Start: 02-24-2022 Hepatitis C antibody , confirmatory test DILATED RETINAL EXAM [facility] Start: 12-29-2021 Influenza vaccination INFLUENZA (#1) [facility] Start: 10-27-2021 BP CONTROLLED (<130/80) BP CONTROLLE D (<130/80) [facility] Start: 10-27-2021 COVID-19 VACCINE (#1) COVID-19 VACCI NE (#1) [facility] Comment on above: Postponed from 02/18 (Declined at this time) Start: 10-27-2021 COVID-19 VACCINE (1) COVID-19 VACCIN E (1) [facility] Comment on above: Postponed from 02/18 (Declined at this time) Start: 10-27-2021 Hepatitis B screening URINE ALBUMIN:CREATININE RATIO [facility] Start: 10-27-2021 Hepatitis B surface antibody level LDL CHOLESTEROL [facility] Start: 09-23-2021 End: 11-23-2021 Calcium [Mass/volume] in Serum or Plasma [facility] Work Phone: Comment on above: Expected: 09/23/2021 , Expires: 11/23/2021 Start: 09-23-2021 End: 11-23-2021 PTH INTACT BLD [facility] Work Phone: Comment on above: Expected: 09/23/2021 , Expires: 11/23/2021 Start: 09-19-2021 End: 11-19-2021 Erythrocyte sedimentation rate [facility] Work Phone: Comment on above: Expected: 09/19/2021 , Expires: 11/19/2021 Start: 08-10-2021 Hemoglobin A1c/Hemoglobin.total in Blood HBA1C [facility] Start: 04-30-2021 ADVANCE DIRECTIVE DISCUSSION ADVANCE DIRECTIVE DISCUSSION [facility] Start: 04-30-2021 DEPRESSION ASSESSMENT DEPRESSION ASS ESSMENT [facility] Start: 12-22-2020 SHINGRIX VACCINE (2 of 2) TAM GRIX VACCINE (2 of 2) [facility] Start: 02-19-2020 RSV Immunization for Adults (1 - 1-dose 75+ series) RSV Immunization for Adults (1 - 1-dose 75+ series) [facility] Start: 02-19-2020 RSV Vaccine (1 - 1-d ose 75+ series) RSV Vaccine (1 - 1-dose 75+ series) [facility] Start: 08-20-2017 End: 08-20-2017 Appointment Appointment [facility] Work Phone: Start: 07-23-2017 End: 01-23-2017 *Hepatic Function Panel *Hepatic Function Panel [facility] Work Phone: Start: 07-23-2017 End: 01-23-2017 Lipid 1996 panel *Lipid Profile CC PCP [facility] Work Phone: Start: 07-23-2017 End: 01-23-2017 *Hepatic Function Panel *Hepatic Function Panel [facility] Work Phone: Start: 07-23-2017 End: 01-23-2017 Lipid panel [AGGREGATE] *Lipid Profile CC PCP [facility] Work Phone: Start: 01-29-2017 End: 01-29-2017 GREGORY JENKINS [facility] Work Phone: Start: 01-29-2017 End: 01-29-2017 Follow Up Appt 6 months Follow Up Appt 6 months [facility] Work Phone: Start: 01-29-2017 End: 01-29-2017 Appointment Appointment [facility] Work Phone: Start: 01-29-2017 End: 01-29-2017 DJN DJN [facility] Work Phone: Start: 01-29-2017 End: 01-29-2017 Follow Up Appt 6 months Follow Up Appt 6 months [facility] Work Phone: Start: 01-12-2017 End: 01-22-2017 *Hepatic Function Panel *Hepatic Function Panel [facility] Work Phone: Start: 01-12-2017 End: 01-22-2017 Lipid 1996 panel *Lipid Profile CC PCP [facility] Work Phone: Start: 01-12-2017 End: 01-22-2017 *Hepatic Function Panel *Hepatic Function Panel [facility] Work Phone: Start: 01-12-2017 End: 01-22-2017 Lipid panel [AGGREGATE] *Lipid Profile CC PCP [facility] Work Phone: Start: 07-17-2016 End: 07-17-2016 DJN DJN [facility] Work Phone: Start: 07-17-2016 End: 07-17-2016 Follow Up Appt 6 months Follow Up Appt 6 months [facility] Work Phone: Start: 07-17-2016 End: 07-17-2016 DJN DJN [facility] Work Phone: Start: 07-17-2016 End: 07-17-2016 Follow Up Appt 6 months Follow Up Appt 6 months [facility] Work Phone: Start: 07-12-2016 End: 07-13-2016 *Hepatic Function Panel *Hepatic Function Panel [facility] Work Phone: Start: 07-12-2016 End: 07-14-2016 Lipid 1996 panel *Lipid Profile CC PCP [facility] Work Phone: Start: 07-12-2016 End: 07-13-2016 *Hepatic Function Panel *Hepatic Function Panel [facility] Work Phone: Start: 07-12-2016 End: 07-14-2016 Lipid panel [AGGREGATE] *Lipid Profile CC PCP [facility] Work Phone: Start: 01-19-2016 End: 01-10-2016 *Hepatic Function Panel *Hepatic Function Panel [facility] Work Phone: Start: 01-19-2016 End: 01-10-2016 *Hepatic Function Panel *Hepatic Function Panel [facility] Work Phone: Start: 01-14-2016 End: 01-14-2016 DJN DJN [facility] Work Phone: Start: 01-14-2016 End: 01-14-2016 Follow Up Appt 6 months Follow Up Appt 6 months [facility] Work Phone: Start: 01-14-2016 End: 01-14-2016 GREGORY NICOLEN [facility] Work Phone: Start: 01-14-2016 [...] 07-19-2015 *Hepatic Function Panel *Hepatic Function Panel [facility] Work Phone: Start: 07-26-2015 End: 07-19-2015 Lipid 1996 panel *Lipid Profile CC PCP [facility] Work Phone: Start: 07-26-2015 End: 07-19-2015 *Hepatic Function Panel *Hepatic Function Panel [facility] Work Phone: Start: 07-26-2015 End: 07-19-2015 Lipid panel [AGGREGATE] *Lipid Profile CC PCP [facility] Work Phone: Start: 07-19-2015 End: 07-19-2015 GREGORY JENKINS [facility] Work Phone: Start: 07-19-2015 End: 07-19-2015 Follow Up Appt 6 months Follow Up Appt 6 months [facility] Work Phone: Start: 07-19-2015 End: 07-19-2015 GREGORY NICOLEN [facility] Work Phone: Start: 07-19-2015 End: 07-19-2015 Follow Up Appt 6 months Follow Up Appt 6 months [facility] Work Phone: Start: 01-26-2015 End: 01-26-2015 GREGORY JENKINS [facility] Work Phone: Start: 01-26-2015 End: 01-26-2015 Follow Up Appt 6 months Follow Up Appt 6 months [facility] Work Phone: Start: 01-26-2015 End: 01-26-2015 Stress Echocardiogram (treadmill) Stress Echocardiogram (treadmill) [facility] Work Phone: Start: 01-26-2015 End: 01-26-2015 GREGORY JENKINS [facility] Work Phone: Start: 01-26-2015 End: 01-26-2015 Follow Up Appt 6 months Follow Up Appt 6 months [facility] Work Phone: Start: 01-26-2015 End: 01-26-2015 Stress Echocardiogram (treadmill) Stress Echocardiogram (treadmill) [facility] Work Phone: Start: 01-22-2015 End: 01-25-2015 *Hepatic Function Panel *Hepatic Function Panel [facility] Work Phone: Start: 01-22-2015 End: 01-25-2015 Lipid 1996 panel *Lipid Profile CC PCP [facility] Work Phone: Start: 01-22-2015 End: 01-25-2015 *Hepatic Function Panel *Hepatic Function Panel [facility] Work Phone: Start: 01-22-2015 End: 01-25-2015 Lipid panel [AGGREGATE] *Lipid Profile CC PCP [facility] Work Phone: Start: 07-15-2014 End: 07-20-2014 *Hepatic Function Panel *Hepatic Function Panel [facility] Work Phone: Start: 07-15-2014 End: 07-20-2014 Lipid 1996 panel *Lipid Profile CC PCP [facility] Work Phone: Start: 07-15-2014 End: 07-20-2014 *Hepatic Function Panel *Hepatic Function Panel [facility] Work Phone: Start: 07-15-2014 End: 07-20-2014 Lipid panel [AGGREGATE] *Lipid Profile CC PCP [facility] Work Phone: Start: 01-20-2014 End: 01-20-2014 BONNIEN GREGORY [facility] Work Phone: Start: 01-20-2014 End: 01-22-2014 Ecg routine ecg w/least 12 lds w/i&r EKG (In office) [facility] Work Phone: Start: 01-20-2014 End: 01-20-2014 Follow Up Appt 1 year Follow Up Appt 1 year [facility] Work Phone: Start: 01-20-2014 End: 01-20-2014 DJHarry DJN [facility] Work Phone: Start: 01-20-2014 End: 01-22-2014 Electrocardiogram, complete EKG (In office) [facility] Work Phone: Start: 01-20-2014 End: 01-20-2014 Follow Up Appt 1 year Follow Up Appt 1 year [facility] Work Phone: Start: 12-29-2013 End: 01-15-2014 *Hepatic Function Panel *Hepatic Function Panel [facility] Work Phone: Start: 12-29-2013 End: 01-15-2014 Lipid 1996 panel *Lipid Profile CC PCP [facility] Work Phone: Start: 12-29-2013 End: 01-15-2014 *Hepatic Function Panel *Hepatic Function Panel [facility] Work Phone: Start: 12-29-2013 End: 01-15-2014 Lipid panel [AGGREGATE] *Lipid Profile CC PCP [facility] Work Phone: Start: 06-28-2013 End: 07-16-2013 *Hepatic Function Panel *Hepatic Function Panel [facility] Work Phone: Start: 06-28-2013 End: 07-16-2013 Lipid 1996 panel *Lipid Profile CC PCP [facility] Work Phone: Start: 06-28-2013 End: 07-16-2013 *Hepatic Function Panel *Hepatic Function Panel [facility] Work Phone: Start: 06-28-2013 End: 07-16-2013 Lipid panel [AGGREGATE] *Lipid Profile CC PCP [facility] Work Phone: Start: 01-14-2013 End: 01-14-2013 GREGORY JENKINS [facility] Work Phone: Start: 01-14-2013 End: 01-14-2013 Follow Up Appt 1 year Follow Up Appt 1 year [facility] Work Phone: Start: 01-14-2013 End: 01-14-2013 Stress Echocardiogram (treadmill) Stress Echocardiogram (treadmill) [facility] Work Phone: Start: 01-14-2013 End: 01-14-2013 GREGORY NICOLEN [facility] Work Phone: Start: 01-14-2013 End: 01-14-2013 Follow Up Appt 1 year Follow Up Appt 1 year [facility] Work Phone: Start: 01-14-2013 End: 01-14-2013 Stress Echocardiogram (treadmill) Stress Echocardiogram (treadmill) [facility] Work Phone: Start: 12-29-2012 End: 01-06-2013 *Hepatic Function Panel *Hepatic Function Panel [facility] Work Phone: Start: 12-29-2012 End: 01-06-2013 Lipid 1996 panel *Lipid Profile [facility] Work Phone: Start: 12-29-2012 End: 01-06-2013 *Hepatic Function Panel *Hepatic Function Panel [facility] [employer] Work Phone: Start: 12-29-2012 End: 01-06-2013 Lipid panel [AGGREGATE] *Lipid Profile [facility] Work Phone: Start: 06-25-2012 End: 07-18-2012 *Hepatic Function Panel *Hepatic Function Panel [facility] Work Phone: Start: 06-25-2012 End: 06-25-2012 Ecg routine ecg w/least 12 lds w/i&r EKG (In office) [facility] [employer] Work Phone: Start: 06-25-2012 End: 06-25-2012 Follow Up Appt 6 months Follow Up Appt 6 months [facility] [employer] Work Phone: Start: 06-25-2012 End: 07-18-2012 Lipid 1996 panel *Lipid Profile [facility] [employer] Work Phone: Start: 06-25-2012 End: 07-18-2012 *Hepatic Function Panel *Hepatic Function Panel [facility] [employer] Work Phone: Start: 06-25-2012 End: 06-25-2012 Electrocardiogram, complete EKG (In office) [facility] [employer] Work Phone: Start: 06-25-2012 End: 06-25-2012 Follow Up Appt 6 months Follow Up Appt 6 months [facility] Work Phone: Start: 06-25-2012 End: 07-18-2012 Lipid panel [AGGREGATE] *Lipid Profile [facility] Work Phone: Start: 12-21-2011 End: 01-11-2012 *Hepatic Function Panel *Hepatic Function Panel [facility] Work Phone: Start: 12-21-2011 End: 12-21-2011 Follow Up Appt 6 months Follow Up Appt 6 months [facility] Work Phone: Start: 12-21-2011 End: 01-11-2012 Lipid 1996 panel *Lipid Profile [facility] [employer] Phone: Start: 12-21-2011 End: 01-11-2012 *Hepatic Function Panel *Hepatic Function Panel [facility] Work Phone: Start: 12-21-2011 End: 12-21-2011 Follow Up Appt 6 months Follow Up Appt 6 months Mahin [employer] Work Phone: Start: 12-21-2011 End: 01-11-2012 Lipid panel [AGGREGATE] *Lipid Profile [facility] [place] Work Phone: Start: 05-19-2011 End: 05-19-2011 Ecg routine ecg w/least 12 lds w/i&r EKG (In office) Mahin [employer] Phone: Start: 05-19-2011 End: 05-19-2011 Echocardiography Echocardiogram (complete) [facility]in [employer] Work Phone: Start: 05-19-2011 End: 05-19-2011 Follow Up Appt 3 months Follow Up Appt 3 months Mahin vivas [employer] Phone: Start: 05-19-2011 End: 05-19-2011 Nuclear stress test -adenosine Nuclear stress test -adenosine Mahin Cervantes [employer] Work Phone: Start: 05-19-2011 End: 05-19-2011 Echocardiography Echocardiogram (complete) [facility]in [employer] Phone: Start: 05-19-2011 End: 05-19-2011 Electrocardiogram, complete EKG (In office) Mahin [employer] Phone: Start: 05-19-2011 End: 05-19-2011 Follow Up Appt 3 months Follow Up Appt 3 months Mahin [employer] Work Phone: Start: 05-19-2011 End: 05-19-2011 Nuclear stress test -adenosine Nuclear stress test -adenosine Mahin [employer] Work Phone: Start: 2005 RSV Vaccine (1 - 1-d ose 60+ series) RSV Vaccine (1 - 1-dose 60+ series) [facility] Start: 1963 Hepatitis C screening Hepatitis C [facility] Start: 1957 Depression Screening Depression Scre [facility] Hemoglobin.gastroint estina l.lower [Presence] in Stool by Immunoassay FECAL OCCULT BLOOD TEST Lab Routine Well adult exam Screening for colon cancer Ordered: 05/31/2022 [facility] Work Phone: Comment on above: Ordered: 05/31/2022 Hemoglobin.gastroint estina l.lower [Presence] in Stool by Immunoassay IMMUNOCHEMICAL FECAL OCCULT BLOOD TEST Lab Routine Screening for colon cancer Ordered: 08/08/2023 [facility] Work Phone: Comment on above: Ordered: 08/08/2023 [facility] Heart Views W str ess and W radionuclide IV [facility] OXIMETRY - NOCTURNAL OXIMETRY - NOCTURNAL Procedures Routine Pneumonia due to COVID-19 virus Ordered: 04/10/2022 [facility] Work Phone: Comment on above: Ordered: 04/10/2022 End: 05-18-2024 OXIMETRY WITH AMBULATION OXIMETRY WITH AMBULATION PFT Routine Hypoxemia 1 Occurrences starting 04/19/2023 until 05/18/2024 [facility] Work Phone: Comment on above: 1 Occurrences starti ng 04/19/2023 until 05/18/2024 Patient Education [facility] Work Phone: Patient referral [facility] Work Phone: End: 07-24-2025 US Lower extremity artery - bilateral [facility] Vascular Lab Routine Cyanosis Diminished pulses in lower extremity 1 Occurrences starting 07/24/2024 until 07/24/2025 [facility] Comment on above: 1 Occurrences starti ng 07/24/2024 until 07/24/2025 [facility] Immunizations Immunization Date Immunization Notes Care Provider Ashley campbell 02-14-2024 influenza, high dose seasonal, preservative-free César Merrill MD Work Phone: [place] [address]-17-2024 zoster vaccine recombinant César Merrill MD Work Phone: [facility] 02-14-2024 influenza virus vacc ine, unspecified formulation César Merrill MD Work Phone: [facility] 02-05-2023 influenza (HD-IIV4) vaccine, age 65+ yr, high dose, quadrivalent, PF (FLUZONE HIGH-DOSE) César Merrill MD Work Phone: [facility] 02-05-2023 influenza virus vacc ine, unspecified formulation Xr Mahin Work Phone: [facility] 05-31-2022 influenza, high-dose , quadrivalent vaccine (FLUZONE HIGH DOSE QUADRIVALENT) César Merrill MD Work Phone: [facility] 03-07-2021 influenza, high-dose , quadrivalent vaccine (FLUZONE HIGH DOSE QUADRIVALENT) César Merrill MD Work Phone: [facility] 10-27-2020 tetanus toxoid, redu silva diphtheria toxoid, and acellular pertussis vaccine, adsorbed César Merrill MD Work Phone: [facility] 10-27-2020 zoster vaccine recombinant César Merrill MD Work Phone: [facility] 02-25-2019 influenza, high dose seasonal, preservative-free César Merrill MD Work Phone: [facility] 02-22-2018 influenza, high dose seasonal, preservative-free César Merrill MD Work Phone: [facility] 04-12-2017 influenza, injectabl e, quadrivalent, contains preservative César Merrill MD Work Phone: [facility] 12-06-2015 pneumococcal polysaccharide vaccine, 23 valent César Merrill MD Work Phone: [facility] 11-24-2014 pneumococcal conjuga te vaccine, 13 valent César Merrill MD Work Phone: [facility] 10-22-2013 measles, mumps and rubella virus vaccine César Merrill MD Work Phone: [facility] Work Phone: 09-03-2013 measles, mumps and rubella virus vaccine César Merrill MD Work Phone: [facility] Work Phone: 01-24-2010 influenza virus vacc ine, unspecified formulation César Merrill MD Work Phone: [facility] 05-22-2008 tetanus toxoid, redu silva diphtheria toxoid, and acellular pertussis vaccine, adsorbed César Merrill MD Work Phone: [facility] Work Phone: 02-28-1998 pneumococcal polysaccharide vaccine, 23 valent César Merrill MD Work Phone: [facility] Payers Date Payer Category Payer Unknown [id number] 2024 Self-pay [id number] 2024 Commercial Managed [facility] II [id number] 2024 Unknown [id number] Unknown [id number] Unknown [id number] Unknown [id number]. 2.462 Unknown [id number]. 2.462 Unknown [id number]. 2.462 Unknown [id number]. 2.462 Unknown [id number]. 2.462 Unknown [id number]. 2.462 Unknown [id number]. 2.462 Unknown [id number]. 2.462 Unknown [id number]. 2.462 Unknown [id number]. 2.462 Unknown [id number] [id number]. 2.462 Unknown [id number]. 2.462 Unknown [id number] [id number]. 2.462 Unknown [id number]. 2.462 Unknown [id number]. 2.462 Unknown [id number]. 2.462 Social History Date Type Detail Facility Start: 03-07-2021 End: 12-16-2024 Tobacco smoking status NHIS Ex-smoker [facility] Start: 1963 End: 07-29-1997 History of tobacco use Current smoker [facility] Start: 05-12-2021 End: 08-22-2024 Alcohol intake Current non-drinker of alcohol (finding) [facility] Start: 1945 Sex Assigned At Not on file C [facility] Start: 07-14-2021 End: 03-16-2023 Tobacco smoking status TXIS Unknown if ever smoked [facility] Start: 1945 Sex Assigned At Male [facility] Start: 01-12-2021 End: 11-15-2021 Exposure to SARS-CoV-2 (event) Not sure [facility] Work Phone: Start: 1963 End: 07-29-1997 History of tobacco use Cigarette Smoker [facility] Work Phone: Start: 03-07-2021 End: 02-14-2024 Tobacco use and exposure Former smokeless tobacco user [facility] Work Phone: Start: 05-31-2022 End: 03-05-2025 History of Social function [facility] Work Phone: Start: 05-31-2022 End: 03-05-2025 Tobacco use panel [facility] Work Phone: Adult Depression Screening Assessment 0 [facility] Work Phone: Start: 12-17-2024 End: 03-05-2025 Alcoholic beverage intake Lifetime non-drinker (finding) [facility] Start: 12-08-2024 Sex Male (finding) [facility] Medical Equipment Procedure Code Equipment Code Equipment Original Text Equipment Identifier Dates [id number] FDA Start: 04-12-2023 SCREW FDA Start: 04-12-2023 [...] Start: 04-12-2023 Collagen haemost atic agent, non-antimicrobial ()[id number] [id number] FDA Start: 04-12-2023 Collagen haemost atic agent, non-antimicrobial ()[id number] [id number] FDA Start: 04-12-2023 Plant polysaccha ride haemostatic agent, bioabsorbable ()[id number] [id number] FDA Start: 04-12-2023 PUTTY,BONE DBM 5 CC TIJERINA FDA Start: 04-12-2023 AMNA FDA Start: 04-12-2023 AMNA FDA Start: 04-12-2023 SCREW FDA Start: 04-12-2023 SCREW FDA Start: 04-12-2023 SCREW FDA Start: 04-12-2023 SCREW FDA Start: 04-12-2023 [id number] FDA Start: 04-12-2023 SCREW FDA Start: 04-12-2023 [...] FDA Start: 04-12-2023 SCREW FDA Start: 04-12-2023 [id number] FDA Start: 04-12-2023 SCREW FDA Start: 04-12-2023 [...] FDA Start: 04-12-2023 SCREW FDA Start: 04-12-2023 [id number] FDA Start: 04-12-2023 SCREW FDA Start: 04-12-2023 [...] FDA Start: 04-12-2023 SCREW FDA Start: 04-12-2023 [id number] FDA Start: 04-12-2023 SCREW FDA Start: 04-12-2023 [...] FDA Start: 04-12-2023 SCREW FDA Start: 04-12-2023 [id number] FDA Start: 04-12-2023 SCREW FDA Start: 04-12-2023 [...] FDA Start: 04-12-2023 SCREW FDA Start: 04-12-2023 [id number] FDA Start: 04-12-2023 SCREW FDA Start: 04-12-2023 [...] FDA Start: 04-12-2023 SCREW FDA Start: 04-12-2023 [id number] FDA Start: 04-12-2023 SCREW FDA Start: 04-12-2023 [...] Facility 04-14-2023 Functional status Patient Activity Chair [facility] Work Phone: 04-14-2023 Functional status With Assist of [facility] Work Phone: 11-24-2014 Are you deaf, or do you have serious difficulty hearing Yes 11/24/2014 8:22 AM Bryn Oneil LPN Yes [facility] 11-24-2014 Are you blind, or do you have serious difficulty seeing, even when wearing glasses No 11/24/2014 8:22 AM Bryn Oneil LPN No [facility] 11-24-2014 Do you have serious difficulty walking or climbing stairs No 11/24/2014 8:22 AM Bryn Oneil LPN No [facility] 11-24-2014 Do you have difficul ty dressing or bathing No 11/24/2014 8:22 AM Bryn Oneil LPN No [facility] 11-24-2014 Because of a physica l, mental, or emotional condition, do you have difficulty doing errands alone such as visiting a physician's office or shopping No 11/24/2014 8:22 AM EDT Bryn Benedict LPN No [facility] Mental Status Date Assessment Result Facility 04-14-2023 Cognitive function Voice/Name [facility] Work Phone: 11-24-2014 Because of a physica l, mental, or emotional condition, do you have serious difficulty concentrating, remembering, or making decisions No 11/24/2014 8:22 AM EDT Bryn Benedict LPN No [facility] Clinical Notes 07-29-1997 to 03-06-2025 Zunilda Barrientos MD - 03/05/2025 1:00 PM Cyndi Brizuela MD - 02/19/2025 9:00 AM Nichol Brizuela MD - 12/17/2024 9:45 AM Demarcus Fuentes LPN - 11/12/2024 1:54 PM EDT Note Date & Type Note Facility 03-06-2025 Note HNO ID: [id number] Author: DEMARCUS HIGGINBOTHAM LPN Service: ? Author Type: Licensed Nurse Type: Progress Notes Filed: 03/06/2025 14:06 Note Text: Scan on 03/06/2025 10:53 AM by Provider, YURIDIA Valle: Consultation - Cardiology [facility] 03-05-2025 History of Present illness Narrative Images from the original note were not included. [facility] Cardiology Note DATE of SERVICE: 03/05/2025 DATE of : 1945 PRIMARY CARE PHYSICIAN: César Merrill MD Chief Complaint: Chief Complaint Patient presents with New Patient Coronary Artery Disease History of Present Illness: Katharine Cano is a 80 y.o. [employer] male with severe bilateral iliac disease with lifestyle-limiting claudication (Followed by Dr. Taylor) found to have significant multivessel coronary disease involving distal left main bifurcation into ostial LAD and ostial circumflex with at least moderate calcified nodular stenosis of the large proximal dominant RCA was referred to interventional cardiology for evaluation of potential percutaneous coronary revascularization options. He was initially worked up for claudication and was found to have severe bilateral iliac stenoses with subtotal/total occlusions. Current surgical plan for lower extremity revascularization includes axillary bifemoral bypass. Further cardiovascular evaluation ensued at [place] including stress test showing inferolateral ischemia followed by cardiac cath with the findings as above. Echocardiogram performed showing normal EF and valves. He was referred to [facility] cardiothoracic surgeon Dr. Brizuela for potential CABG. however increased risks of CABG noted due to advanced age, some debilitation with decreased mobility (in wheelchair in office), obesity, and mild CKD with creatinine 1.2-1.3. Patient then referred for evaluation of percutaneous coronary revascularization options. Cardiac cath films from [place] personally reviewed and showed moderate tapering of distal left main with calcified critical stenosis of ostial circumflex and moderate to severe ostial LAD stenosis. Additional 50% stenosis of mid LAD which appears nonflow-limiting. Large dominant RCA noted calcified focal moderate proximal stenosis, estimated at least 50% stenotic. Complex anatomy with calcified distal left main bifurcation stenosis present, best approached with hemodynamic support using Impella, but this was further complicated by his critical calcified bilateral common iliac and femoral stenoses. Patient is ambulatory at baseline, but tires easily with shortness of breath, angina, and significant leg claudication bilaterally. He is obese, and utilizes a wheelchair for longer distances, including getting to our office. He is accompanied by his and son. He has chronic bilateral lower extremity edema. He is on chronic losartan/HCTZ, atenolol, DAPT with aspirin and Plavix, and high-dose Zocor 80 mg daily. Lipids are well-controlled, and hemoglobin A1c under reasonable control at 6.6%. Blood pressure is controlled. Creatinine 1.2. Past Medical History: Medical History[1] Past Surgical History Surgical History[2] Family History Family History[3] Social History Social History[4] Allergies: Allergies[5] Medications: Current Medications[6] Physical Examination: Vitals: Vitals: 03/05/25 1251 BP: 122/66 BP Location: Left arm Patient Position: Sitting BP Cuff Size: Adult Pulse: 69 Weight: 244 lb (111 kg) Height: 5' 6 (1.676 m) Body mass index is 39.38 kg/m . Physical Exam Constitutional: General: He is not in acute distress. Appearance: He is obese. He is not toxic-appearing. Comments: In wheelchair; with family HENT: Head: Normocephalic and atraumatic. Eyes: General: No scleral icterus. Extraocular Movements: Extraocular movements intact. Pupils: Pupils are equal, round, and reactive to light. Neck: Vascular: No carotid bruit. Cardiovascular: Rate and Rhythm: Normal rate and regular rhythm. Pulses: Normal pulses. Heart sounds: Normal heart sounds. No murmur heard. No friction rub. No gallop. Pulmonary: Effort: Pulmonary effort is normal. No respiratory distress. Breath sounds: Normal breath sounds. No wheezing, rhonchi or rales. Abdominal: General: Bowel sounds are normal. There is no distension. Palpations: Abdomen is soft. Tenderness: There is no abdominal tenderness. Musculoskeletal: Right lower leg: Edema (3+) present. Left lower leg: Edema (3+) present. Lymphadenopathy: Cervical: No cervical adenopathy. Skin: General: Skin is warm and dry. Capillary Refill: Capillary refill takes less than 2 seconds. Findings: No bruising or lesion. Neurological: General: No focal deficit present. Mental Status: He is alert and oriented to person, place, and time. Motor: No weakness. Gait: Gait abnormal. Comments: In wheelchair Psychiatric: Mood and Affect: Mood normal. Laboratory Tests: CBC: Component Ref Range & Units 7 mo ago (07/24/24) 1 yr ago (09/13/23) 1 yr ago (08/08/23) 2 yr ago (05/31/22) 3 yr ago (11/15/21) 3 yr ago (09/19/21) 4 yr ago (10/27/20) WBC 3.70 - 11.00 k/uL 4.77 4.55 4.75 5.21 5.18 7.49 5.39 RBC 4.20 - 6.00 m/uL 4.23 3.98 Low 3.91 Low 4.04 Low 3.97 Low 4.25 4.22 Hemoglobin 13.0 - 17.0 g/dL 14.1 13.1 12.7 Low 13.6 13.5 14.5 13.8 Hematocrit 39.0 - 51.0 % 42.7 40.2 39.3 42.1 39.9 43.0 41.0 MCV 80.0 - 100.0 fL 100.9 High 101.0 High 100.5 High 104.2 High 100.5 High 101.2 High 97.2 MCH 26.0 - 34.0 pg 33.3 32.9 32.5 33.7 34.0 34.1 High 32.7 R MCHC 30.5 - 36.0 g/dL 33.0 32.6 32.3 32.3 33.8 33.7 33.7 RDW-CV 11.5 - 15.0 % 13.5 14.9 14.6 14.2 13.2 13.3 12.5 Platelets 150 - 400 k/uL 232 179 179 207 205 274 183 MPV 9.0 - 12.7 fL 9.5 10.4 9.9 10.2 10.0 9.0 10.1 Neutrophils % % 38.9 34.1 42.9 51.0 42.2 58.0 52.5 Abs Neut 1.45 - 7.50 k/uL 1.85 1.55 2.03 2.66 2.19 4.35 2.82 Lymphocytes % % 45.5 47.9 40.8 33.6 40.7 29.1 Abs Lymph 1.00 - 4.00 k/uL 2.17 2.18 1.94 1.75 2.11 2.18 1.68 Monocytes Relative % 11.7 13.4 12.4 11.3 11.6 10.7 11.5 Abs [place] <0.87 k/uL 0.56 0.61 0.59 0.59 0.60 0.80 0.62 % Eosinophils % 3.1 3.5 2.9 3.3 4.1 1.2 Abs Eosin <0.46 k/uL 0.15 0.16 0.14 0.17 0.21 0.09 0.21 Basophils % % 0.8 0.9 0.8 0.6 1.0 0.7 Abs Baso <0.11 k/uL 0.04 0.04 0.04 0.03 0.05 0.05 0.05 Immature Granulocytes % % 0.0 0.2 0.2 0.2 0.4 0.3 Abs Immature Gran <0.10 k/uL <0.03 <0.03 <0.03 <0.03 <0.03 <0.03 NRBC /100 WBC 0.0 0.0 0.0 0.0 0.0 0.0 Absolute nRBC <0.01 k/uL <0.01 <0.01 <0.01 <0.01 <0.01 <0.01 <0.01 BMP: Component Ref Range & Units 1 mo ago (01/27/25) 7 mo ago (07/24/24) 1 yr ago (08/08/23) 2 yr ago (05/31/22) 3 yr ago (11/15/21) 3 yr ago (09/23/21) 3 yr ago (09/19/21) Glucose 74 - 99 mg/dL 125 High 154 High CM 108 High CM 156 High CM 196 High CM 147 High CM BUN 9 - 24 mg/dL 23 21 17 14 18 25 High Creatinine 0.73 - 1.22 mg/dL 1.24 High 1.36 High 1.17 0.89 1.12 1.22 Sodium 136 - 144 mmol/L 141 139 142 143 138 139 Potassium 3.7 - 5.1 mmol/L 4.4 4.4 4.2 4.7 4.7 4.9 Chloride 98 - 107 mmol/L 106 103 105 R 108 High R 102 R 100 R CO2 22 - 30 mmol/L 21 Low 24 25 25 27 27 Anion Gap 8 - 15 mmol/L 14 12 12 R 10 R 9 R 12 R Calcium 8.5 - 10.2 mg/dL 9.4 9.7 9.8 9.7 10.0 9.8 10.4 High Estimated Glomerular Filtration Rate >=60 mL/min/1.73m 59 Low 53 Low CM 64 CM 88 CM 68 CM 61 CM Lipid Panel: Component Ref Range & Units 1 mo ago Total Cholesterol, Nonfasting <200 mg/dL 117 Triglycerides, Nonfasting <150 mg/dL 101 HDL Cholesterol, Nonfasting >39 mg/dL 41 LDL Cholesterol, Nonfasting <100 mg/dL 57 Non HDL Cholesterol, Nonfasting <130 mg/dL 76 VLDL Cholesterol, Nonfasting <30 mg/dL 15 Total Chol/HDL Ratio, Nonfasting <5.10 mg/dL 2.85 LDL/HDL Ratio, Nonfasting <2.54 mg/dL 1.39 Hemoglobin A1c: Component Ref Range & Units 1 mo ago (01/27/25) 7 mo ago (07/24/24) 1 yr ago (02/14/24) 1 yr ago (08/08/23) 2 yr ago (05/31/22) 3 yr ago (11/15/21) 3 yr ago (05/12/21) Hemoglobin A1C 4.3 - 5.6 % 6.6 High 7.6 High CM 6.5 High CM 6.4 High CM 6.3 High CM 7.0 High CM 9.7 High CM Comment: [place] [employer] guidelines indicate that patients with HgbA1c in the range 5.7-6.4% are at increased risk for development of diabetes, and intervention by lifestyle modification may be beneficial. HgbA1c greater or equal to 6.5% is considered diagnostic of diabetes. Estimated Average Glucose mg/dL 143 171 CM 140 CM 137 CM 134 CM 154 CM 232 CM Cardiac Tests: ECG 03/11/25 personally reviewed and shows: sinus rhythm at 70bpm with first degree AV block. No ischemic changes or prior infarct Cardiac Cath 11/27/2024 ([place]): Lexiscan Nuclear Stress 11/12/2024 ([place]): Echo 01/15/2025 ([facility]) Carotid Duplex 02/05/25 ([place]): CT Abd with Runoff 10/03/2024 ([place]): CT Chest 01/17/2025 ([facility]): Assessment and Plan: 1. Coronary artery disease of [place] artery of [place] heart with stable angina pectoris Severe multivessel coronary disease involving distal left main bifurcation with critical ostial circumflex stenosis and severe ostial LAD stenosis. Additional moderate mid LAD stenosis and at least moderate-severe focal stenosis of large dominant RCA. Given increased risk for CABG, reasonable to approach lesions with PCI, optimally with mechanical circulatory support using Impella. Cardiac cath films discussed with interventional team as well as CT surgery. CTA chest abdomen pelvis discussed with CT surgery as well as vascular surgery. Very difficult if not impossible access for Impella from femoral approach with increased vascular risk given iliofemoral disease. -As such, recommend proceeding with surgically placed Impella 5.5 from axillary approach. Plan intra-op placement of RHC/[facility] catheter as well to help optimize volume status pre-PCI. -Plan axillary Impella with contralateral 7 [place] radial access for PCI. Plan to approach left main bifurcation first, and then potentially address RCA. May need atherectomy and/or IVL for both lesions given evidence of calcification. Risks, benefits, alternatives of Impella assisted PCI discussed with patient and family who agreed to proceed. - Patient will undergo surgical placement Impella 5.[address] Brizuela, then will be admitted to HLU with PCI afterwards. - Optimize volume status first. Starting Lasix. Repeat labs prior to procedures. - Plan to hold Plavix at least 5 days prior to Impella placement to minimize surgical bleeding. Afterwards, will reload with antiplatelet therapy prior to PCI. 2. Shortness of breath Multifactorial and related to obesity/deconditioning as well as significant multivessel coronary disease. Patient further limited by his lower extremity claudication as well. -Starting IV Lasix and plan to recheck labs within the next couple weeks. - ECG 12 lead - CLINIC PERFORMED - furosemide (Lasix) 40 MG tablet; Take 1 tablet (40 mg) by mouth daily., Starting Kait 03/05/2025, Until Sun03/05/2026, Normal - CBC auto differential - NT PRO BNP - Lipid panel - Comprehensive metabolic panel 3. Hypercholesteremia Recheck cholesterol. Switch Zocor to Crestor at time of PCI. 4. Primary hypertension Controlled. Optimize medications at time of PCI. 5. Diabetes mellitus type II, non insulin dependent (HCC) Under reasonable control. Optimize medications at time of PCI. Consider starting Farxiga. 6. Localized edema Starting Lasix. 7. Iliac artery stenosis, bilateral Severe calcified bilateral iliac artery stenoses and concomitant femoral disease. Anatomy not suitable for femoral access Impella. Plan as above. Eventual axillary bifemoral bypass 8. Atherosclerosis of [place] artery of both lower extremities with intermittent claudication Plan as above 9. CKD stage 3a, GFR 45-59 ml/min ([facility]) Monitor closely with medication adjustments and diuresis. Follow Up: Patient to follow-up in 2 months unless new cardiovascular issues arise. Please call with any questions. Zunilda Barrientos MD, [facility], [facility] [employer] [facility], [facility] [place] [address] [place] [address] [address] [place] [address] p [phone] f [phone] [email or web address] [1] Past Medical History: Diagnosis Date Acute on chronic respiratory failure with hypoxia (HCC) Coronary artery disease Diabetes mellitus (HCC) History of rheumatic fever Hyperlipidemia Hypertension ND (myocardial infarction) (HCC) Mitral valve prolapse [2] Past Surgical History: Procedure Laterality Date BACK SURGERY 2022 PARTIAL KNEE ARTHROPLASTY Bilateral 2011 SPINE SURGERY 2014 [3] Family History Problem Relation Name Age of Onset Heart disease Mother Coronary artery disease Father Kidney cancer Sister [4] Social History Tobacco Use Smoking status: Former Types: Cigarettes Substance Use Topics Alcohol use: Never Drug use: Never [5] Allergies Allergen Reactions Rosuvastatin Rash Other Reaction(s): Other: See Comments rash and sore muscles Valsartan Other Reaction(s): Cough Metformin Diarrhea Zinc Other Reaction(s): Intolerance chest pain [6] Current Outpatient Medications: aspirin 81 MG EC tablet, Take 81 mg by mouth daily. (Patient taking differently: Take 162 mg by mouth daily.), Disp: , Rfl: atenolol (Tenormin) 25 MG tablet, Take 25 mg by mouth daily., Disp: , Rfl: baclofen (Lioresal) 20 MG tablet, Take 20 mg by mouth Nightly as needed for muscle spasms., Disp: , Rfl: Berberine Chloride 500 MG capsule, Take by mouth., Disp: , Rfl: Cholecalciferol (D3 PO), Take 50 mcg by mouth daily., Disp: , Rfl: cilostazol (Pletal) 50 MG tablet, Take 50 mg by mouth 2 times daily., Disp: , Rfl: clopidogrel (Plavix) 75 MG tablet, Take 75 mg by mouth daily., Disp: , Rfl: cyanocobalamin (Vitamin B-12) 1000 MCG tablet, Take 1,000 mcg by mouth daily., Disp: , Rfl: gabapentin (Neurontin) 100 MG capsule, Take 100 mg by mouth Nightly., Disp: , Rfl: glimepiride (Amaryl) 4 MG tablet, Take 4 mg by mouth 2 times daily., Disp: , Rfl: losartan-hydroCHLOROthiazide (Hyzaar) 50-12.5 MG tablet, Take 1 tablet by mouth daily., Disp: , Rfl: nitroglycerin (Nitrostat) 0.4 MG SL tablet, Place 0.4 mg under the tongue every 5 minutes as needed for chest pain., Disp: , Rfl: NON FORMULARY, SUPER HEALTH, Disp: , Rfl: NON FORMULARY, PRO-CURSE, Disp: , Rfl: NON FORMULARY, DYSODIUM, Disp: , Rfl: NON FORMULARY, CURALIN SUPPLEMENT FOR BLOOD SUGAR, Disp: , Rfl: NON FORMULARY, CIRULATION CALC, Disp: , Rfl: pioglitazone (Actos) 45 MG tablet, Take 45 mg by mouth daily., Disp: , Rfl: simvastatin (Zocor) 80 MG tablet, Take 80 mg by mouth Nightly., Disp: , Rfl: tamsulosin (Flomax) 0.4 MG 24 hr capsule, Take 0.4 mg by mouth daily., Disp: , Rfl: furosemide (Lasix) 40 MG tablet, Take 1 tablet (40 mg) by mouth daily., Disp: 30 tablet, Rfl: 11 documented in this encounter [facility] 02-19-2025 History of Present illness Narrative Images from the original note were not included. [facility] CARDIOV[facility]ULAR [facility]ORACIC SURGERY [address] [facility] [address] [facility] [address] Dept: [phone] Dept Loc: [phone] Patient was identified and seen today via Telehealth by agreement and consent. I used the following Telehealth technology: Audio capability only. Total length of call 5 minutes. The patient was offered and advised video for a more comprehensive evaluation, but the patient declined or was unable to use video. Patient location: Patient Location: Home. This patient encounter is appropriate and reasonable under the circumstances: transportation issues . The patient has been advised of the potential risks and limitations of this mode of treatment (including but not limited to the absence of in-person examination) and has agreed to be treated in a remote fashion in spite of them. Any and all of the patient's/patient's family's questions on this issue have been answered and I have made no promises or guarantees to the patient. The patient has also been advised to contact this office for worsening conditions or problems, and seek emergency medical treatment and/or call 911 if the patient deems either necessary. The patient stated that they are currently in the state [facility]. If the patient is a minor, permission has been obtained by the parent or guardian for the patient to receive medical care at this visit. Visit type: Established Reason for Visit: Discussed results of heart team meeting this morning Assessment and plan 1. Coronary artery disease involving [place] coronary artery of [place] heart without angina pectoris Recommendations I discussed the results of the heart team discussion with the patient, specifically our concerns regarding his left lower extremity peripheral vascular disease and potential complications associated with cardiopulmonary bypass and poor recovery given that the patient can only walk a few feet without having to use a wheelchair. The conclusion of the meeting was we will review the CT scans from [place] of the abdomen and pelvis to determine if he has access for peripheral Impella insertion to aid PCI of the left main and RCA. Once the images arrive in our system, I will have a discussion with interventional cardiology regarding the options in this regard. He may also be a candidate for axillary Impella and PCI if the femoral access is poor. STS Risk Calculator Procedure Type: Isolated CABG Perioperative Outcome Estimate % Operative Mortality 1.54% Morbidity & Mortality 6.5% Stroke 0.596% Renal Failure 1.44% Reoperation 1.67% Prolonged Ventilation 3.39% Deep Sternal Wound Infection 0.328% Long Hospital Stay (>14 days) 5.01% Short Hospital Stay (<6 days)* 37.7% History of Present Illness Katharine Cano is a 80 y.o. male known to Dr. Brizuela for CAD. Per note, patient with past medical history significant for ND s/p PCI to RCA in 1997, HLD, HTN, T2DM, PAD. Pt was seen by cardiology for pre op cardiac clearance prior to femoral vascular surgery. Pt reported ongoing shortness of breath on exertion. Pt underwent nuclear stress test 11/12/24 which showed mildly reduced reversible perfusion of basal inferior and lateral wall. Pt then underwent heart catheterization on 12/08/24 which demonstrated 60% distal LMCA, 70% ostial, 70% Mid LAD, 95% ostial LCX, 70% distal RCA lesions. Dr. Brizuela Note 12/17/24 This is a 79-year-old gentleman referred for evaluation for CABG after positive stress test and heart catheterization that showed multivessel coronary disease. He received the stress test secondary to workup for potential lower extremity bypass by vascular surgery for his peripheral arterial disease. Patient also has a history of type 2 diabetes and PCI to the RCA in 1997. Secondary to his lower extremity peripheral arterial disease, the patient does not ambulate much and presented today in a wheelchair. About a year and a half ago he was more active and denied chest pain with activity at that time. On my review of the heart catheterization, the patient has a very large RCA with a large PDA and PLB, amenable to bypass. LAD has a left main/proximal LAD lesion as well as a mid LAD lesion and a jailed diagonal branch, both amenable for grafting. The circumflex is very small vessel as result of the large right-sided dominant vessels in that territory, as result the circumflex is likely not graftable secondary to size. EF appears to be normal on stress testing, however evaluation of valvular abnormalities was limited on that exam. He has a history of rheumatic fever as a child and has a diagnosis in the chart of prolapsed mitral valve. From an anatomy standpoint, the patient has adequate targets for bypass, plan would be for use of left internal mammary artery and additional saphenous vein for conduit. His lower extremities are edematous and he has some nonhealing wounds of the left lower extremity which is the side with worse stenosis in the femorals. I have concerns that blood flow will be compromised during the cardiopulmonary bypass run to the lower extremities, and I will have to have a discussion with vascular surgery regarding conduit they may use for lower extremity bypass as well. If he is deemed too high risk for surgical complications he may be a PCI candidate, we will have to discuss with interventional cardiology regarding his options. Prior to consideration for surgery will need the following: - TTE - CT of the chest - Bilateral carotid artery ultrasounds - Bilateral lower extremity vein mapping I will then see him back in the office to discuss the results of the studies as well as determine his risk for surgical intervention and plan moving forward. Pt completed all testing requested. TTE demonstrated EF 55%, moderate concentric LV hypertrophy, stage 1 diastolic dysfunction, and no valvular abnormalities. CT chest showed mild, diffuse lung disease, heavy calcification of the aortic leaflets and coronary arteries. Carotid US showed mild carotid stenosis. Vein mapping showed patent bilateral great and small saphenous veins. Patient is taking Plavix. Hgb A1C on 07/24/24 was 7.6%. Patient was discussed at Valve Conference on 02/19/25 and is here to discuss plan of care. Past Medical History Medical History[1] Past Surgical History Surgical History[2] Family History Family History[3] Social History Social History[4] Allergies Allergies[5] Medications Current Medications[6] Review of Systems Review of Systems Constitutional: Negative. HENT: Negative. Eyes: Negative. Respiratory: Positive for shortness of breath. Cardiovascular: Negative. Gastrointestinal: Negative. Endocrine: Negative. Genitourinary: Negative. Musculoskeletal: Negative. Skin: Negative. Allergic/Immunologic: Negative. Neurological: Negative. Hematological: Negative. Psychiatric/Behavioral: Negative. Physical Exam Vitals: There were no vitals taken for this visit. Physical exam not performed as this was a virtual visit. Labs No results found for: WBC, HGB, PLT, NA, K, CREATININE Imaging Carotid US 02/05/25 Transthoracic Echocardiogram 01/15/25 CT Chest 01/15/25 Vein Mapping 01/15/25 Heart Catheterization 11/27/24 CONCLUSIONS 60% distal LMCA 70% ostial, 70% Mid LAD 95% ostial LCX 70% distal RCA RECOMMENDATIONS Surgery consult for coronary revascularization CORONARY ANGIOGRAPHY DOMINANCE: Right Dominant LEFT MAIN: Tubular 60% Distal lesion in LMCA LEFT ANTERIOR DESCENDING ARTERY: LAD: Tubular 70% Ostial lesion in LAD Tubular 70% Mid lesion in LAD RIGHT CORONARY ARTERY: RCA: Calcified 50% Proximal lesion in RCA Tubular 70% Distal lesion in RCA Patient Care Team: PCP: César Merrill MD Cardiology: Debbie Remy MD Vascular Surgery: Lenny Taylor MD Disclaimer INFORMED CONSENT:The nature and purpose of the proposed treatment or procedure have been discussed. The risks and benefits of the proposed treatment or procedures have been reviewed. Alternatives have been reviewed in addition to the risks and benefits of not receiving treatments or undergoing procedures. Pursuant to this discussion, the patient agrees to undergo the proposed treatment or procedure. Captured images seen in this note from are not a substitute for a comprehensive interpretation of the entire data set as reflected by the interpreting physician with regard to radiology, echocardiography, and other diagnostic images. This note may have been dictated using [employer] Edition 2.6 and/or Phase III Development Voice Recognition Feature. The document was proofread, however unrecognized voice recognition tip mender errors may be present. [1] Past Medical History: Diagnosis Date Acute on chronic respiratory failure with hypoxia (HCC) Coronary artery disease Diabetes mellitus (HCC) History of rheumatic fever Hyperlipidemia Hypertension ND (myocardial infarction) (HCC) Mitral valve prolapse [2] No past surgical history on file. [3] Family History Problem Relation Name Age of Onset Heart disease Mother Coronary artery disease Father Kidney cancer Sister [4] Social History Tobacco Use Smoking status: Former Types: Cigarettes Substance Use Topics Alcohol use: Never Drug use: Never [5] Allergies Allergen Reactions Rosuvastatin Rash [6] Current Outpatient Medications: aspirin 81 MG EC tablet, Take 81 mg by mouth daily. (Patient taking differently: Take 162 mg by mouth daily.), Disp: , Rfl: atenolol (Tenormin) 25 MG tablet, Take 25 mg by mouth daily., Disp: , Rfl: baclofen (Lioresal) 20 MG tablet, Take 20 mg by mouth Nightly as needed for muscle spasms., Disp: , Rfl: Berberine Chloride 500 MG capsule, Take by mouth., Disp: , Rfl: Cholecalciferol (D3 PO), Take 50 mcg by mouth daily., Disp: , Rfl: cilostazol (Pletal) 50 MG tablet, Take 50 mg by mouth 2 times daily., Disp: , Rfl: clopidogrel (Plavix) 75 MG tablet, Take 75 mg by mouth daily., Disp: , Rfl: cyanocobalamin (Vitamin B-12) 1000 MCG tablet, Take 1,000 mcg by mouth daily., Disp: , Rfl: gabapentin (Neurontin) 100 MG capsule, Take 100 mg by mouth Nightly., Disp: , Rfl: glimepiride (Amaryl) 4 MG tablet, Take 4 mg by mouth 2 times daily., Disp: , Rfl: losartan-hydroCHLOROthiazide (Hyzaar) 50-12.5 MG tablet, Take 1 tablet by mouth daily., Disp: , Rfl: nitroglycerin (Nitrostat) 0.4 MG SL tablet, Place 0.4 mg under the tongue every 5 minutes as needed for chest pain., Disp: , Rfl: pioglitazone (Actos) 45 MG tablet, Take 45 mg by mouth daily., Disp: , Rfl: simvastatin (Zocor) 80 MG tablet, Take 80 mg by mouth Nightly., Disp: , Rfl: tamsulosin (Flomax) 0.4 MG 24 hr capsule, Take 0.4 mg by mouth daily., Disp: , Rfl: documented in this encounter [facility] 02-05-2025 Note HNO ID: [id number] Author: LENORE STEWARD MA Service: ? Author Type: Veterinarian Assistant Type: Progress Notes Filed: 02/05/2025 17:29 Note Text: Scan on 02/05/2025 2:24 PM by Provider, External, PA-C: Carotid Duplex US [facility] 01-27-2025 Note HNO ID: [id number] Author: CÉSAR MERRILL MD Service: ? Author Type: Physician Type: Progress Notes Filed: 01/27/2025 09:42 Note Text: Chief Complaint Patient presents with: F/U 6 Month HPI Katharine Cano is a 79 year old male who presents here today for a routine follow up. Patient with hx of CAD, HTN, hyperlipidemia, KARLA, DM2, BPH, PVD and those as below. Had cardiac cath completed on 11/27/24 at [facility]. Katharine has been evaluated by a wet silk hanger at [facility], Dr. Nieto, on 11/14. He has been diagnosed with significant coronary artery disease, including an 80% occlusion in the LAD and a 100% occlusion in another coronary artery. He is awaiting further evaluation and treatment, including potential stent placement in the LAD and a bypass surgery for the 100% occluded artery. He has undergone multiple diagnostic tests, including a CT scan of the chest and vein mapping on 01/15 at [facility], which showed patent great saphenous and small saphenous veins. He is also scheduled for leg surgery by Dr. Taylor, a vascular surgeon, before the planned open-heart surgery. Katharine reports worsening dyspnea on exertion, which improves with rest. He denies hemoptysis, chest pain, palpitations, or arrhythmias. He also reports increased lower extremity edema, which has remained consistent since his last cardiology visit. He elevates his legs at home and uses a recliner for sleep due to discomfort in the lower legs, particularly from the knees down to the ankles. He experiences occasional leg cramps, for which he takes Yen's cramp pills sublingually, providing relief within 5 minutes. He denies new onset of leg cramps. Katharine experienced a syncopal episode several months ago while fishing [place], attributed to inadequate food and water intake. He was accompanied by his two sons, who provided water and a sandwich, leading to symptom resolution. He denies seizures or tremors. He denies fevers, diaphoresis, chills, cervical lymphadenopathy, nausea, emesis, diarrhea, heartburn, or cephalalgia. He continues to use his CPAP machine at night. Past medical history, appointments, medications, allergies reviewed. [...] KARLA (obstructive sleep apnea) 12/19/2012 Phimosis 12/11/2016 PVD (peripheral vascular disease) 08/22/2024 Type 2 diabetes mellitus without complication, without long-term current use of insulin (HCC) 08/14/2017 Previous Surgical History PAST SURGICAL HISTORY Procedure Laterality Date 2D ECHO (EXEP) 11/19/2018 EF 55%, stage 1 Diast Dysf, NO change from 04/2011 ARTHRP KNE CONDYLEANDPLATU MEDIALANDLAT COMPARTMENTS Right ARTHRP KNE CONDYLEANDPLATU MEDIALANDLAT COMPARTMENTS Left IMMUNOCHEMICAL FECAL OCCULT BLOOD TEST 05/26/2019 negative PAST SURGICAL HISTORY OF 07/09/2017 right carpal tunnel repair PAST SURGICAL HISTORY OF 09/2017 C6, C7 block and plates PAST SURGICAL HISTORY OF 04/12/2023 lumbar surgery PAST SURGICAL HISTORY OF 03/2023 Spinal fusion L3-L4 PAST SURGICAL HISTORY OF N/A 11/27/2024 Heart catherization STRESS TEST 09/27/2017 negative Family History FAMILY [...] on File Prior to Visit Medication Sig atorvastatin (LIPITOR) 40 mg tablet Take 1 tablet by mouth once daily. pioglitazone (ACTOS) 45 mg tablet Take 1 tablet by mouth once daily. tamsulosin (FLOMAX) 0.4 mg Take 1 capsule by mouth daily at bedtime. Bringing good RX coupon. losartan-hydroCHLOROthiazide (HYZAAR) 50-12.5 mg per tablet Take 1 tablet by mouth once daily. dapagliflozin propanediol (FARXIGA) 5 mg tablet Take 1 tablet by mouth daily with breakfast. Cyanocobalamin 1,000 mcg TbER Take 1 tablet by mouth once daily. terbinafine HCl (LAMISIL) 250 mg tablet Take 1 tablet by mout (more content not included)... [facility] 01-19-2025 Note HNO ID: [id number] Author: SHAHNAZ MEDINA MA Service: ? Author Type: Veterinarian Assistant Type: Progress Notes Filed: 01/19/2025 11:17 Note Text: Scan on 01/19/2025 9:18 AM by Provider, External, PA-C: Saphenous Vein Mapping Jon Scan on 01/17/2025 12:42 PM by Provider, External, PA-C: CT Chest [facility] 01-17-2025 Radiology Diagnostic study note [facility] Imaging Services [address], [place] [id number] Chest without Contrast MR#: [id number] Acct: [id number] Name: KATHARINE CANO Kamar Rep #: [id number] : 1945 M 79 [facility] PCP: Dr. César Merrill MD Status: REG CLI Study:Chest without Contrast Date of Exam: 01/15/25 Exam# [id number] Ordering Dr: PAYTON BRIZUELA PROCEDURE: CHEST WITHOUT CONTRAST 01/15/2025 REASON FOR EXAM: AORTIC VALVE STENOSIS TECHNIQUE: Chest CT without contrast. Coronal and Sagittal reconstruction series were provided. One or more dose reduction techniques were used (e.g., Automated exposure control, adjustment of the mA and/or kV according to patient size, use of iterative reconstruction technique RADIATION DOSE SUMMARY: DLP: 602.94 mGycm COMPARISON: CT chest dated 01/30/2021 FINDINGS: There is a calcified granuloma in the right lower lobe. Dependent atelectatic changes and consolidation noted on previous exams has resolved. Mild ground-glass opacities and diffuse interstitial lung diseaseagain demonstrated. No pneumothorax. No effusion. The thoracic inlet and base of the neck appear within normal limits. Heavy atherosclerosis of the aorta present. No aneurysm or dissection. Coronary arterial calcifications evident with heavy calcifications at the aortic leaflets. No pericardial effusion. There are shotty lymph nodes in the mediastinum which are not pathologically enlarged by size criteria. A calcified subcarinal and right hilar lymph nodes are present. Upper abdominal structures are within normal limits. Osseous structures reveal no destructive bone lesion or acute fracture. Multilevel spondylosis seen. CT/Chest without Contrast IMPRESSION: Complete resolution of consolidations and dependent atelectasis noted in previous exams. Mild diffuse interstitial lung disease and dependent atelectasis. No acute cardiopulmonary process. Heavy calcifications of the aortic leaflets. Coronary arterial calcifications. No pericardial effusion. Reading Location: [facility] CC: Dr. César Merrill MD; PAYTON BRIZUELA ~ Testing Lead: Signed [facility] 01-15-2025 Note HNO ID: [id number] Author: SHAHNAZ MEDINA MA Service: ? Author Type: Licensed Nurse Type: Progress Notes Filed: 01/19/2025 11:17 Note Text: Scan on 01/15/2025 12:00 PM by Provider, External, PA-C: Echo [facility] 12-17-2024 Note Orders Placed This E ncounter Procedures CT chest wo IV contrast Standing Status: Future Expected Date: 12/17/2024 Expiration Date: 12/17/2025 Record Decision Support information?: No Decision Support Exception: Emergency Medical Condition (MA) [1] Transthoracic echocardiogram (TTE) complete with contrast, bubble, strain, and 3D PRN Standing Status: Future Expected Date: 12/17/2024 Expiration Date: 12/17/2026 Contrast Enhancement (Bubble Study, Definity, Optison) may be used if criteria listed in established evidence-based protocol has been identified.: Contrast and bubble study per evidence based protocol Vascular US carotid artery duplex bilateral Standing Status: Future Expected Date: 12/17/2024 Expiration Date: 12/17/2026 Vascular US lower extremity vein mapping for bypass bilateral Standing Status: Future Expected Date: 12/17/2024 Expiration Date: 12/17/2026 [facility] 12-17-2024 History of Present illness Narrative Images from the original note were not included. [facility] CARDIOVASCULAR & THORACIC SURGERY [address] [facility] [address] Dept: [phone] Dept Loc: [phone] Visit type: New Reason for Visit: Coronary artery disease Assessment and plan 1. Coronary artery disease of [place] artery of [place] heart with stable angina pectoris (HCC) This is a 79-year-old gentleman referred for evaluation for CABG after positive stress test and heart catheterization that showed multivessel coronary disease. He received the stress test secondary to workup for potential lower extremity bypass by vascular surgery for his peripheral arterial disease. Patient also has a history of type 2 diabetes and PCI to the RCA in 1997. Secondary to his lower extremity peripheral arterial disease, the patient does not ambulate much and presented today in a wheelchair. About a year and a half ago he was more active and denied chest pain with activity at that time. On my review of the heart catheterization, the patient has a very large RCA with a large PDA and PLB, amenable to bypass. LAD has a left main/proximal LAD lesion as well as a mid LAD lesion and a jailed diagonal branch, both amenable for grafting. The circumflex is very small vessel as result of the large right-sided dominant vessels in that territory, as result the circumflex is likely not graftable secondary to size. EF appears to be normal on stress testing, however evaluation of valvular abnormalities was limited on that exam. He has a history of rheumatic fever as a child and has a diagnosis in the chart of prolapsed mitral valve. From an anatomy standpoint, the patient has adequate targets for bypass, plan would be for use of left internal mammary artery and additional saphenous vein for conduit. His lower extremities are edematous and he has some nonhealing wounds of the left lower extremity which is the side with worse stenosis in the femorals. I have concerns that blood flow will be compromised during the cardiopulmonary bypass run to the lower extremities, and I will have to have a discussion with vascular surgery regarding conduit they may use for lower extremity bypass as well. If he is deemed too high risk for surgical complications he may be a PCI candidate, we will have to discuss with interventional cardiology regarding his options. Prior to consideration for surgery will need the following: - TTE - CT of the chest - Bilateral carotid artery ultrasounds - Bilateral lower extremity vein mapping I will then see him back in the office to discuss the results of the studies as well as determine his risk for surgical intervention and plan moving forward. STS Calculation Procedure Type: Isolated CABG Perioperative Outcome Estimate % Operative Mortality 1.73% Morbidity & Mortality 6.31% Stroke 0.969% Renal Failure 1.2% Reoperation 1.95% Prolonged Ventilation 2.83% Deep Sternal Wound Infection 0.162% Long Hospital Stay (>14 days) 3.73% Short Hospital Stay (<6 days)* 46.3% History of Present Illness Katharine Cano is a 79 y.o. male referred by Dr. Remy for CABG consult. Per note, patient with past medical history significant for ND s/p PCI to RCA in 1997, HLD, HTN, T2DM, PAD. Pt was seen by cardiology for pre op cardiac clearance prior to femoral vascular surgery. Pt reported ongoing shortness of breath on exertion. Pt underwent nuclear stress test 11/12/24 which showed mildly reduced reversible perfusion of basal inferior and lateral wall. Pt then underwent heart catheterization on 12/08/24 which demonstrated 60% distal LMCA, 70% ostial, 70% Mid LAD, 95% ostial LCX, 70% distal RCA lesions. Patient is a former smoker. Hgb A1C on 07/24/24 was 7.6%. Patient is here for a CABG consult. Past Medical History Medical History[1] Past Surgical History Surgical History[2] Family History Family History[3] Social History Social History[4] Allergies Allergies[5] Medications Current Medications[6] Review of Systems Review of Systems Respiratory: Negative for shortness of breath. Shortness of breath with exertion Cardiovascular: Positive for chest pain. All other systems reviewed and are negative. Physical Exam Vitals: BP 138/76 (BP Location: Right arm, Patient Position: Sitting, BP Cuff Size: Large adult) Pulse 56 Wt 230 lb (104 kg) Physical Exam Labs No results found for: WBC, HGB, PLT, NA, K, CREATININE Imaging Heart Catheterization 11/27/24 CONCLUSIONS 60% distal LMCA 70% ostial, 70% Mid LAD 95% ostial LCX 70% distal RCA RECOMMENDATIONS Surgery consult for coronary revascularization CORONARY ANGIOGRAPHY DOMINANCE: Right Dominant LEFT MAIN: Tubular 60% Distal lesion in LMCA LEFT ANTERIOR DESCENDING ARTERY: LAD: Tubular 70% Ostial lesion in LAD Tubular 70% Mid lesion in LAD RIGHT CORONARY ARTERY: RCA: Calcified 50% Proximal lesion in RCA Tubular 70% Distal lesion in RCA Nuclear Stress Test 11/12/24 Impression: 1. Pharmacologic (Regadenoson) evaluation 2. Peak pharmacologic ECG with no ischemic changes. 3. There were no cardiac dysrhythmias pretest, during pharmacologic infusion, or recovery. 5. Mildly reduced reversible perfusion of the basal inferior and lateral wall, suggestive of mild ischemia. 6. The gated Cardiolite study reports an LVEF of 60%. CTA Abd with Runoff 10/03/24 FINDINGS: Aorta: Moderate stenosis of the abdominal [...] and fusion of the lower lumbar levels. Patient Care Team: PCP: César Merrill MD Cardiology: Debbie Remy MD Vascular Surgery: Lenny Taylor MD Disclaimer INFORMED CONSENT:The nature and purpose of the proposed treatment or procedure have been discussed. The risks and benefits of the proposed treatment or procedures have been reviewed. Alternatives have been reviewed in addition to the risks and benefits of not receiving treatments or undergoing procedures. Pursuant to this discussion, the patient agrees to undergo the proposed treatment or procedure. Captured images seen in this note from are not a substitute for a comprehensive interpretation of the entire data set as reflected by the interpreting physician with regard to radiology, echocardiography, and other diagnostic images. This note may have been dictated using [employer] Practice Edition 2.6 and/or Phase III Development Voice Recognition Feature. The document was proofread, however unrecognized voice recognition tip mender errors may be present. [1] Past Medical History: Diagnosis Date Acute on chronic respiratory failure with hypoxia (HCC) Coronary artery disease Diabetes mellitus (HCC) History of rheumatic fever Hyperlipidemia Hypertension ND (myocardial infarction) (HCC) Mitral valve prolapse [2] No past surgical history on file. [3] Family History Problem Relation Name Age of Onset Heart disease Mother Coronary artery disease Father Kidney cancer Sister [4] Social History Tobacco Use Smoking status: Former Types: Cigarettes Substance Use Topics Alcohol use: Never Drug use: Never [5] Allergies Allergen Reactions Rosuvastatin Rash [6] Current Outpatient Medications: aspirin 81 MG EC tablet, Take 81 mg by mouth daily. (Patient taking differently: Take 162 mg by mouth daily.), Disp: , Rfl: atenolol (Tenormin) 25 MG tablet, Take 25 mg by mouth daily., Disp: , Rfl: baclofen (Lioresal) 20 MG tablet, Take 20 mg by mouth Nightly as needed for muscle spasms., Disp: , Rfl: Berberine Chloride 500 MG capsule, Take by mouth., Disp: , Rfl: Cholecalciferol (D3 PO), Take 50 mcg by mouth daily., Disp: , Rfl: cilostazol (Pletal) 50 MG tablet, Take 50 mg by mouth 2 times daily., Disp: , Rfl: clopidogrel (Plavix) 75 MG tablet, Take 75 mg by mouth daily., Disp: , Rfl: cyanocobalamin (Vitamin B-12) 1000 MCG tablet, Take 1,000 mcg by mouth daily., Disp: , Rfl: gabapentin (Neurontin) 100 MG capsule, Take 100 mg by mouth Nightly., Disp: , Rfl: glimepiride (Amaryl) 4 MG tablet, Take 4 mg by mouth 2 times daily., Disp: , Rfl: losartan-hydroCHLOROthiazide (Hyzaar) 50-12.5 MG tablet, Take 1 tablet by mouth daily., Disp: , Rfl: nitroglycerin (Nitrostat) 0.4 MG SL tablet, Place 0.4 mg under the tongue every 5 minutes as needed for chest pain., Disp: , Rfl: pioglitazone (Actos) 45 MG tablet, Take 45 mg by mouth daily., Disp: , Rfl: simvastatin (Zocor) 80 MG tablet, Take 80 mg by mouth Nightly., Disp: , Rfl: tamsulosin (Flomax) 0.4 MG 24 hr capsule, Take 0.4 mg by mouth daily., Disp: , Rfl: documented in this encounter [facility] 11-24-2024 Note HNO ID: [id number] Author: SHAHNAZ MEDINA MA Service: ? Author Type: Veterinarian Assistant Type: Progress Notes Filed: 11/24/2024 08:38 Note Text: Chest XR: View External Imaging - Chest [ID [id number]] [facility] 11-22-2024 Radiology Diagnostic study note [facility] Imaging Services [address] [place], [place] [address] Chest PA and Lateral MR#: [id number] Acct: [id number] Name: KATHARINE CANO Rep #: [id number] : 1945 M 79 From: Mikayla Delong MD PCP: Dr. César Merrill MD Status: REG CLI Study:Chest PA and Lateral Date of Exam: 11/21/24 Exam# [id number] Ordering Dr: Epi Malagon NP PROGRAM ADVISOR-C EXAM: XR Chest, 2 Views CLINICAL INDICATION: PRE-OPERATIVE: [facility] TECHNIQUE: Frontal and lateral views of the chest. COMPARISON: No relevant prior studies available. FINDINGS: LUNGS AND PLEURAL SPACES: Unremarkable. No consolidation. No pneumothorax. HEART: Unremarkable. No cardiomegaly. MEDIASTINUM: Unremarkable. Normal mediastinal contour. BONES/JOINTS: Unremarkable. No acute fracture. RAD/Chest PA and Lateral IMPRESSION: No acute cardiopulmonary process. Reading Location: [id number] CC: PROGRAM ADVISORMariaa Malagon; Dr. César Merrill MD ~ Testing Lead: Signed [facility] 11-12-2024 Note HNO ID: [id number] Author: DEMARCUS HIGGINBOTHAM LPN Service: ? Author Type: LICENSED NURSE Type: Progress Notes Filed: 11/12/2024 13:56 Note Text: Scan on 11/12/2024 12:14 PM by ProviderTori PA-C: Stress Test [facility] 11-12-2024 History of Present illness Narrative Scan on 11/12/2024 12:14 PM by Tori Meredith PA-C: Stress Test documented in this encounter [facility] 10-17-2024 Note HNO ID: [id number] Author: DIAMOND CAIN MA Service: ? Author Type: Veterinarian Assistant Type: Progress Notes Filed: 10/17/2024 13:51 Note Text: Scan on 10/03/2024 8:33 AM by Tori Meredith PA-C: Chemistry Scan on 10/05/2024 6:29 AM by Tori Meredith PA-C: CT Scan Diamond Cain MA [facility] 10-17-2024 History of Present illness Narrative Scan on 10/03/2024 8:33 AM by Tori Meredith PA-C: Chemistry Scan on 10/05/2024 6:29 AM by Tori Meredith PA-C: CT Scan Diamond Cain MA documented in this encounter [facility] 10-14-2024 Telephone encounter Note Patient son calling back for message. The message was read and patient son will call the heart group for the heart medication [facility] 10-14-2024 Miscellaneous Notes Patient son calling back for message. The message was read and patient son will call the heart group for the heart medication Patient has refills on Losartan and gets his [facility]enolol through [facility]. Diamond Cain MA Left message for patient's EC . Diamond aCin MA' Patient has been identified by name [...] you. Zita Patel. documented in this encounter [facility] 10-14-2024 Telephone encounter Note Patient has refills on Losartan and gets his atenolol through [facility]. Diamond Cain MA Left message for patient's EC . Dimaond Cain MA' [facility] 10-14-2024 Telephone encounter Note Prescription Refill Information [...] Cain MA October 14, 2024 11:10 AM [facility] 10-14-2024 Miscellaneous Notes Prescription Refill Information The [...] you. Zita Patel. documented in this encounter [facility] 10-14-2024 Telephone encounter Note Patient has been [...] 01/27/2025 Please advise. Thank you. Zita Patel. [facility] 10-14-2024 Telephone encounter Note Patient has been [...] 01/27/2025 Please advise. Thank you. Zita Patel. [facility] 10-09-2024 Evaluation note Diagnosis Onset Date Resolution Atherosclerosis of [place] arteries of extremities with rest pain, bilateral chronic September 282024 2:55pm Essential hypertension acute 2024 10:17am Preop cardiovascular exam acute October 29, 2024 10:17am Atherosclerotic heart disease of [place] coronary artery without angina pectoris chronic October 29, 2024 10:17am Hyperlipidemia chronic October 29, 2024 10:17am Atherosclerosis of [place] arteries of extremities with rest pain, bilateral chronic October 282024 10:22am [facility] Work Phone: 1(793) 214-871406-08-2025 Radiology Diagnostic study note [facility] Imaging Services [address], [place] [address] CTA Abd w/Runoff W/WO Contrast MR#: [id number] Acct: [id number] Name: KATHARINE CANO Kamar Rep #: [id number] : 1945 M 79 From: Salazar Goldberg MD PCP: Dr. César Merrill MD Status: REG CLI Study:CTA Abd w/Runoff W/WO Contrast Date of Exam: 10/03/24 Exam# [id number] Ordering Dr: Kyrie Rush PROCEDURE: CTA ABD W/RUNOFF W/WO CONTRAST [...] Contrast IMPRESSION: Atherosclerosis. Multifocal stenosis. Reading Location: [place] [address] CC: STEPHEN Toth; Dr. César Merrill MD ~ Testing Lead: Signed [facility]05-14-2025 Telephone encounter Note* Telephone Encounter - César Merrill MD - 09/10/2024 5:09 PM EDT The following approved medication requests [...] once daily. Authorizing Provider: CÉSAR MERRILL MD [facility]05-14-2025 Miscellaneous Notes* Telephone Encounter - César Merrill MD - 09/10/2024 5:09 PM EDT The following approved medication requests [...] once daily. Authorizing Provider: CÉSAR MERRILL MD * Telephone Encounter - Demarcus Higginbotham LPN - 09/10/2024 2:52 PM EDT Prescription Refill Information The patient has been [...] Higginbotham LPN September 10, 2024 2:52 PM * Telephone Encounter - Sissy Figueroa - 09/10/2024 11:55 AM EDT Prescription Refill Information The patient has been [...] 10, 2024 11:56 AM [facility] Telephone encounter Note * Telephone Encounter - Demarcus Higginbotham LPN - 09/10/2024 2:52 PM EDT Prescription Refill Information The patient has been [...] September 10, 2024 2:52 PM [facility]05-14-2025 Telephone encounter Note* Telephone Encounter - Sissy Figueroa - 09/10/2024 11:55 AM EDT Prescription Refill Information The patient has been [...] September 10, 2024 11:56 AM [facility]05-06-2025 NoteHNO ID: [id number] Author: DEMARCUS HIGGINBOTHAM LPN Service: ? Author Type: LICENSED NURSE Type: Progress Notes Filed: 09/02/2024 14:59 Note Text: Scan on 09/02/2024 9:55 AM by Provider, External, PA-C: [facility] History of Present illness Narrative* Demarcus Higginbotham LPN - 09/02/2024 2:58 PM EDT Scan on 09/02/2024 9:55 AM by Provider, YURIDIA Valle: Consultation - Vascular Medicine/Vascular Surgery [facility] Evaluation note* Diagnosis Onset Date Resolution Status Admit Date PAOD (peripheral arterial occlusive disease) acute August 29, 2024 10:57am Atherosclerosis of [place] arteries of extremities with rest pain, bilateral chronic October 09, 2024 2:55pm Essential hypertension acute [place] 2024 10:17am Preop cardiovascular exam acute October 29, 2024 10:17am Atherosclerotic heart diseas e of [place] coronary artery without angina pectoris chronic October 29, 2024 1 0:17am Hyperlipidemia chronic October 29, 2024 10:17am [facility] Work Phone: 1(323) 777-1745003421-23-0262 Evaluation note* Diagnosis Onset Date Resolution Status Admit Date PAOD (peripheral arterial occlusive disease) acute August 29, 2024 10:57am Atherosclerosis of [place] arteries of extremities with rest pain, bilateral chronic October 09, 2024 2:55pm Essential hypertension acute Ju [place] 2024 10:17am Preop cardiovascular exam acute October 29, 2024 10:17am Atherosclerotic heart diseas e of [place] coronary artery without angina pectoris chronic October 29, 2024 1 0:17am Hyperlipidemia chronic October 29, 2024 10:17am Atherosclerosis of [place] arteries of extremities with rest pain, bilateral chronic November 14, 2024 10:22am [facility] Work Phone: 1(733) 257-639304-03-2025 Telephone encounter Note* Telephone Encounter - Valerie Johnson LPN - 07/31/2024 3:57 PM EDT Reviewed message with Atlee and he voiced understanding. Valerie Johnson LPN [facility]04-03-2025 Miscellaneous Notes* Telephone Encounter - Valerie Johnson LPN - 07/31/2024 3:57 PM EDT Reviewed message with Adelaida and he voiced understanding. Valerie Johnson LPN * Telephone Encounter - Diego Aaron MD - 07/31/2024 3:01 PM EDT With LDL above 70 I would recommend he switch to the Atorvastatin 40 mg daily. * Telephone Encounter - NORMA ANDERSON - 07/31/2024 12:48 PM EDT Spoke with son, Adelaida, at this time [...] are questioning if they should continue with thisor start Atorvastatin instead. Please review and advise. Norma Anderson LPN * Telephone Encounter - Diego Aaron MD - 07/31/2024 12:29 PM EDT Patient is already on Actos and Glimepiride. Cannot tolerate metformin due to diarrhea. Can we initiate PA for this medication? If not, would have patient check with insurance to see if they have list of covered alternatives. * Telephone Encounter - Jeannette Oliveira RN - 07/31/2024 11:51 AM EDT Patient's son Atlee calls and states that Farxiga is too expensive for patient. Adelaida asking for different medication to be called into pharmacy. Please review and advise, Jeannette Oliveira, RN documented [facility] Telephone encounter Note * Telephone Encounter - Diego Aaron MD - 07/31/2024 3:01 PM EDT With LDL above 70 I would recommend he switch to the Atorvastatin 40 mg daily. [facility]04-03-2025 Telephone encounter Note* Telephone Encounter - NORMA ANDERSON - 07/31/2024 12:48 PM EDT Spoke with son, Adelaida, at this time and notified of Farxiga rangel if he uses GoodRx coupon at a different pharmacy ($288 with coupon; he was quoted over $400 at his preferred pharmacy without GoodRx). They will contact office back on whether they choose this route. He currently is taking Simvastatin 80mg daily that was originally prescribed through [facility]. Last visit with them on 07/10/24, stated they encouraged him to follow up with PCP for long-term management of his lipids and hypertension. They are questioning if they should continue with thisor start Atorvastatin instead. Please review and advise. Norma Anderson LPN [facility]04-03-2025 Telephone encounter Note* Telephone Encounter - Diego Aaron MD - 07/31/2024 12:29 PM EDT Patient is already on Actos and Glimepiride. Cannot tolerate metformin due to diarrhea. Can we initiate PA for this medication? If not, would have patient check with insurance to see if they have list of covered alternatives. [facility]04-03-2025 Telephone encounter Note* Telephone Encounter - Jeannette Oliveira RN - 07/31/2024 11:51 AM EDT Patient's son Adelaida calls and states that Farxiga is too expensive for patient. Khadijahee asking for different medication to be called into pharmacy. Please review and advise, Jeannette Oliveira RN [facility]04-02-2025 Telephone encounter Note* Telephone Encounter - Valerie Johnson LPN - 07/30/2024 4:37 PM EDT Patient's son aware. Valerie Johnson LPN [facility]04-02-2025 Miscellaneous Notes* Telephone Encounter - Valerie Johnson LPN - 07/30/2024 4:37 PM EDT Patient's son aware. Valerie Johnson LPN * Telephone Encounter - Diego Aaron MD - 07/30/2024 2:10 PM EDT Rx sent as requested. Call if unable to afford farxiga. * Telephone Encounter - Mee Shi RN - 07/30/2024 1:58 PM EDT Patient's son, Adelaida, returned call and given provider's message below. Son agreeable to provider'srecommendations. 1)Son agreeable to have PCP send Farxiga script as pended, for patient. He will let office know if cost is too expensive. 2) Son states he is not sure if pt on cholesterol medication ordered by [facility]. Stateshe will find out and call back with an update. 3) Son states he will instruct pt to take the Vit B12 as advised. Mee Shi, RN * Telephone Encounter - Demarcus Higginbotham LPN - 07/26/2024 11:38 AM EDT Left message for pt to contact office. Demarcus Higginbotham LPN * Telephone Encounter - César Merrill MD - 07/25/2024 1:39 PM EDT Let patient know his A1c is elevated [...] is no longer on the simvastatin per [facility]. If so I would suggest we put him on atorvastatin 40 mg a day. His B12 was on the low end of normal so I would advise getting back on Vit B12 1000 mcg but just one a day. All other labs and urine testing were ok. documented in [facility]04-[facility] Telephone encounter Note * Telephone Encounter - Diego Aaron MD - 07/30/2024 2:10 PM EDT Rx sent as requested. Call if unable to afford farxiga. [facility]04-02-2025 Telephone encounter Note* Telephone Encounter - Mee Shi RN - 07/30/2024 1:58 PM EDT Patient's son, Adelaida, returned call and given provider's message below. Son agreeable to provider'srecommendations. 1)Son agreeable to have PCP send Farxiga script as pended, for patient. He will let office know if cost is too expensive. 2) Son states he is not sure if pt on cholesterol medication ordered by [facility]. Stateshe will find out and call back with an update. 3) Son states he will instruct pt to take the Vit B12 as advised. Mee Shi RN [facility]03-29-2025 Telephone encounter Note* Telephone Encounter - Demarcus Higginbotham LPN - 07/26/2024 11:38 AM EDT Left message for pt to contact office. Demarcus Higginbotham LPN [facility]03-28-2025 Telephone encounter Note* Telephone Encounter - César Merrill MD - 07/25/2024 1:39 PM EDT Let patient know his A1c is elevated [...] other labs and urine testing were ok. [facility]03-27-2025 History of Present illness Narrative* César Merrill MD - 07/24/2024 8:40 AM EDT Images from the original note [...] - LIPID PANEL, NONFASTING 6. Atherosclerosis of [place] coronary artery of [place] heart without angina pectoris - ICD9: 414.01, [...] 782.5, ICD10: R23.0 Check - [facility] 12. Diminished pulses in lower extremity - ICD9: 785.9, ICD10: R09.89 Check - [facility] 13. Screening for depression - [...] which included preparing to see the patient, [id number] patient care, completing clinical documentation, performing a medically appropriate examination, counseling and educating the patient/family/caregiver and ordering medications, tests, or procedures. César Merrill MD SENSITIVE EXAMINATION CONSENT: The sensitive examination was discussed with the Patient or Patient's Authorized Prosecuting Attorney. Asapplicable, any other physician, advance practice provider, medical student, or other health professional student that will be observing or involved in the sensitive examination for educational or training purposes was discussed with the Patient or Authorized Prosecuting Attorney. The Patient or Authorized Prosecuting Attorney has agreed to proceed with the sensitive examination. documented in this encounterThe [facility]03-27-2025 NoteHNO ID: [id number] Author: CÉSAR MERRILL MD Service: ? Author [...] and med refills. Seeing Dr. Castro with [facility] for his hip pains. Patient had [...] Mixed hyperlipidemia 11/07/2005 Nocturnal leg cramps 02/22/2018 KALRA (obstructive sleep apnea) 12/19/2012 Phimosis 12/11/2016 Type [...] Social History Tobacco Use (more content not included)...[facility]03-27-2025 Instructions * Patient Instructions* César Merrill MD - 07/24/2024 8:38 AM EDT Please bring in copies of your power of regulatory attorney for health care and living will. Please get back on the B12 1000 mcg 1.5 tabs a day. documented in this encounterThe [facility]03-21-2025 Telephone encounter Note * Telephone Encounter - César Merrill MD - 07/18/2024 12:49 PM EDT Noted. [facility]03-21-2025 Miscellaneous Notes* Telephone Encounter - César Merrill MD - 07/18/2024 12:49 PM EDT Noted. * Telephone Encounter - Zohreh Hughes RN - 07/18/2024 12:12 PM EDT Love from [facility] pharmacy in [place] calling in for refills for pt. She states pt calledin for refill on his Baclofen and Gabapentin. [...] Simvastatin correctly. [facility] Pt is set up for a physical on 08/12 with Katarzyna Munson. Pt is [employer] and needs financiallycleared for appt. Attempted to call pt and son Adelaida answered the phone and said pt is unavailable. Discussed with son about how pt is taking his medications and that perhaps we need to bring him in sooner for an apptto discuss med compliance. Son agreeable to this. documented in this encounterThe [facility]03-[facility]-2025 Telephone encounter Note * Telephone Encounter - Zohreh Hughes RN - 07/18/2024 12:12 PM EDT Love from [facility] pharmacy in [place] calling in for refills for pt. She states pt calledin for refill on his Baclofen and Gabapentin. [...] Simvastatin correctly. [facility]. Pt is set up for a physical on 08/12 with Katarzyna Munson. Pt is [employer] and needs financiallycleared for appt. Attempted to call pt and son Adelaida answered the phone and said pt is unavailable. Discussed with son about how pt is taking his medications and that perhaps we need to bring him in sooner for an apptto discuss med compliance. Son agreeable to this. [facility]03-13-2025 Evaluation note* Diagnosis Onset Date Resolution Status Admit Date Essential hypertension acute [facility] 2024 9:26am Atherosclerotic heart diseas e of [place] coronary artery without angina pectoris chronic July 10, 2024 9:26am Hyperlipidemia chronic June 9:26am PAOD (peripheral arterial occlusive disease) acute August 29, 2024 10:57am [facility] Work Phone: 1(800) 250-638403-13-2025 Evaluation note* Diagnosis Onset Date Resolution Status Admit Date Essential hypertension acute [facility] 2024 9:26am Atherosclerotic heart diseas e of [place] coronary artery without angina pectoris chronic July 10, 2024 9:26am Hyperlipidemia chronic June 9:26am PAOD (peripheral arterial occlusive disease) acute August 29, 2024 10:57am Atherosclerosis of [place] arteries of extremities with rest pain, bilateral chronic October 09, 2024 2:55pm [facility] Work Phone: 1(679) 724-111603-13-2025 Evaluation note* Diagnosis Onset Date Resolution Status Admit Date Essential hypertension acute [facility] 2024 9:26am Atherosclerotic heart diseas e of [place] coronary artery without angina pectoris chronic July 10, 2024 9:26am Hyperlipidemia chronic June 9:26am PAOD (peripheral arterial occlusive disease) acute August 29, 2024 10:57am Atherosclerosis of [place] arteries of extremities with rest pain, bilateral chronic October 09, 2024 2:55pm Essential hypertension acute 2024 10:17am Preop cardiovascular exam acute October 29, 2024 10:17am Atherosclerotic heart diseas e of [place] coronary artery without angina pectoris chronic October 29, 2024 1 0:17am Hyperlipidemia chronic October 29, 2024 10:17am [facility] Work Phone: 1(163) 730-117903-07-2025 NoteHNO ID: [id number] Author: DEMARCUS HIGGINBOTHAM LPN Service: ? Author Type: LICENSED NURSE Type: Progress Notes Filed: 07/04/2024 08:36 Note Text: Scan on 07/04/2024 7:19 AM by Provider, External, PAClementineC: [facility] - [facility] History of Present illness Narrative* Demarcus Higginbotham LPN - 07/04/2024 8:24 AM EST Scan on 07/04/2024 7:19 AM by Provider, YURIDIA Valle: Consultation - Ophthalmology documented in this encounterThe [facility]health System02-11-2025 NoteHNO ID: [id number] Author: DEYSI CAIN APRN.VEHICLE TRIMMER Service: ? Author Type: Nurse Practitioner Type: [...] 07/29/1997 Years since quitting: (more content not included)...[facility] 06-10-2024 History of Present illness Narrative* Deysi Cain APRN.[facility] - 06/10/2024 1:43 PM EST CC: [...] Patient agreeable to treatment plan. Deysi Cain APRN.VEHICLE TRIMMER documented in this encounterThe Metrohealth System10-18-2024 Telephone encounter Note * Telephone Encounter - Demarcus Higginbotham LPN - 02/15/2024 11:46 AM EDT Left message of pt and pt's results on pt's vm. Demarcus Higginbotham LPN [facility]10-18-2024 Miscellaneous Notes* Telephone Encounter - Demarcus Higginbotham LPN - 02/15/2024 11:46 AM EDT Left message of pt and pt's results on pt's vm. Demarcus Higginbotham LPN * Telephone Encounter - César Merrill MD - 02/15/2024 10:03 AM EDT Let Katharine know that his recent labs along with his 's recent labs were ok. documented in this encounterThe Metrohealth System10-18-2024 Telephone encounter Note * Telephone Encounter - César Merrill MD - 02/15/2024 10:03 AM EDT Let Katharine know that his recent labs along with his 's recent labs were ok. [facility]10-17-20[facility] History of Present illness Narrative* César Merrill [...] diet and regular exercise 5. Atherosclerosis of [place] coronary artery of [place] heart without angina pectoris - ICD9: 414.01, [...] extensive. César Merrill MD documented in this encounterThe Metrohealth System05-17-2024 Telephone encounter Note * Telephone Encounter - Zohreh Hughes RN - 09/14/2023 2:48 PM EDT Teto Son returns the call and is notified of Dr. Merrill's instructions. He verbalizes understanding. [facility]05-17-2024 Miscellaneous Notes* Telephone Encounter - Zohreh Hughes [...] mcg once a day. documented in this encounterThe Metrohealth System05-17-2024 Telephone encounter Note * Telephone Encounter - Natalie Hebert LPN - 09/14/2023 1:16 PM EDT Left message to contact office for results. [facility]05-17-2024 Telephone encounter Note* Telephone Encounter - César Merrill MD - 09/14/2023 12:51 PM EDT Let patient (or since he has dementia) know his hemoglobin was back into a normal range. His B12 is improved but not wear it needs to be. He needs to increase his Vit B12 to 1500 mcg once a day. [facility]04-18-2024 Miscellaneous Notes* Telephone Encounter - Jeannette Oliveira RN - 08/16/2023 10:37 AM EDT Patient's son Atlee calls and notified of results and provider instructions. Atlee voices understanding. Jeannette Oliveira RN * Telephone Encounter - Valerie Johnson LPN - 08/16/2023 10:11 AM EDT Message left for patient's son Adelaida to [...] repeated in a month. documented in this encounterThe Metrohealth System04-15-2024 Miscellaneous Notes* Telephone Encounter - Jeannette Oliveira [...] labs to further evaluate. documented in this encounterThe Metrohealth System04-10-2024 Instructions* Patient Instructions* César Merrill MD - 08/08/2023 9:43 AM EDT Consider getting the shingrix vaccine for prevention of shingles, and RSV vaccine from a local pharmacy or the health dept Please bring in copies of your power of regulatory attorney for health care and living will. documented in this encounterThe Metrohealth System04-10-2024 History of Present illness Narrative* César Merrill [...] for pulmonary last visit 03/2023 Patient sees [facility] 03/2023 Patient sees Ophthalmology last [...] Diabetic Foot Exam due on 05/31/2023 Covid-19 Vaccine( season) due on 02/06/2024 Annual PCP Team [...] loss. BMI 37.69 kg/(m^2) 6. Atherosclerosis of [place] coronary artery of [place] heart without angina pectoris - ICD9: 414.01, [...] which included preparing to see the patient, [id number] patient care, completing clinical documentation, performing a medically appropriate examination, counseling and educating the patient/family/caregiver and ordering medications, tests, or procedures. César Merrill MD documented in this encounterThe Metrohealth System12-21-2023 Instructions* Patient Instructions* May Ragland MD - 04/19/2023 10:20 AM EST Use inhaler for SOB Oxygen reassessment documented in this encounterThe Metrohealth System12-21-2023 History of Present illness Narrative* May Ragland MD - 04/19/2023 10:00 AM EST Images from the original note were not included. . Respiratory [facility] Note Patient name: Katharine Cano PCP: César [...] had at L3-5 laminectomy with spinal fusion [facility] 04/22/23 with postoperative note of hypoxemia [...] 89%. DME: [employer] DATA: Reviewed EMR from [facility] Imaging / Diagnostic Studies: 03/20/23 STUDY: [...] acute cardiopulmonary disease. Reviewed portable CXR from [facility] which shows poor lung volumes but [...] of mild fibrosis May Ragland MD [facility] documented in this encounterThe Metrohealth System12-16-2023 Progress note Author Lenore Robledo [facility] April 14, 2023 11:28am Note Date/Time April 14, 2023 11:28am [facility] Medical Records Department [address] [place] [address] Progress Note - Hospitalist 04/14/23 1124 MR#: [id number] Acct: [id number] Name: JEROMEKATHARINE Rep #:[id number] : 1945 78 From: Lenore Robledo DO PCP: Dr. César Merrill MD Status:ADM ROSANGELA Location: [place] [address] Reason for Visit Reason for Visit: Chronic back pain Subjective Subjective No issues overnight. Patient remains on 2 L nasal cannula and with ambulation did well with 2 L however at rest with no oxygen his oxygen saturation was 87%. He indicates he is followed with Dr. May Ragland over at [facility] previously and will do so after discharge. He is anxious to go home and would be willing to doso on oxygen if needed. I think with his oxygen stabilizing we can get him hometoday with supplemental oxygen [id number] and he can follow-up as an outpatient [...] distress and well nourished Constitutional Narrative: Older, Episcopal, white male, sitting up in a chair [...] was referred to revisit with his home stapler machine after discharge CAD/HTN/HPL -Most recent stent was [...] with spacer. Charges/Coding Visit Charges Inpatient E&M: 77844 Subs Hosp L2 04/14/23 1128 <Electronically signed by Lenore Robledo DO> Cosigner Signature (if applicable): CC: ~ Signed [facility] Work Phone: 1(589) 930-768612-15-2023 Progress note Author Lenore Robledo [facility] April 13, 2023 10:53am Note Date/Time April 13, 2023 7:24am [facility] Medical Records Department [address] [place] [address] Progress Note - Hospitalist 04/13/23 0718 MR#: [id number] Acct: [id number] Name: KATHARINE CANO Rep #:[id number] : 1945 78 From: Lenore Robledo DO PCP: Dr. César Merrill MD Status:ADM ROSANGELA Location: [address] Reason for Visit Reason for Visit: Lumbar [...] distress and well nourished Constitutional Narrative: Older, Episcopal, white male, sitting up in bed, family [...] 24 hours Charges/Coding Visit Charges Inpatient E&M: 14635 Subs Hosp L2 04/13/23 1053 <Electronically signed by Lenore Robledo DO> Cosigner Signature (if applicable): CC: ~ Signed [facility] Work Phone: 1(498) 661-473012-15-2023 Progress note Author César Tijerina [facility] April 13, 2023 6:45am Note Date/Time April 13, 2023 6:45am [facility] Medical Records Department [address] [place] [address] Progress Note - Orthopedic 04/13/23 0643 MR#: [id number] Acct: [id number] Name: KATHARINE CANO Kamar Rep #:[id number] : 1945 78 From: César Martin PCP: Dr. César Merrill MD Status:ADM ROSANGELA [facility] Subjective Subjective Seen and examined postop day [...] Cosigner Signature (if applicable): CC: ~ Signed [facility] Work Phone: 1(651) 473-977512-15-2023 Progress note Author César Tijerina [facility] April 13, 2023 6:43am Note Date/Time April 12, 2023 8:06am [facility] Medical Records Department [address] [place] [address] Progress Note - Orthopedic 04/12/23805 MR#: [id number] Acct: [id number] Name: KATHARINE CANO Rep #:[id number] : 1945 78 From: César Martin PCP: Dr. César Merrill MD Status:ADM ROSANGELA Location: [place] [address] Subjective Subjective Seen and examined postop. Resting [...] Cosigner Signature (if applicable): CC: ~ Signed [facility] Work Phone: 1([phone]) 715-817812-14-2023 Progress note Author Gogo Santizo [facility] April 12, 2023 6:13pm Note Date/Time April 12, 2023 6:13pm [facility] Medical Records Department [facility] [place] [address] Progress Note - Hospitalist 04/12/231805 MR#: [id number] Acct: [id number] Name: JEROMEKATHARINE Rep #:[id number] : 1945 78 From: Gogo Satnizo MD PCP: Dr. César Merrill MD Status:ADM ROSANGELA Location: [place] [address] Reason for Visit Reason for Visit: Diagnoses Spinal stenosis, lumbar region without neurogenic claudication (04/12/23) Encounter for other preprocedural examination (04/12/23) Subjective Subjective 78-year-old male history of coronary artery disease status post stenting, lumbarstenosis, type 2 diabetes, hypertension presented to [facility] 04/12/2023 for lumbar stenosis requiring L3-5 posterior [...] documentation, 35minutes Charges/Coding Visit Charges Inpatient E&M: 94497 Subs Hosp L2 04/12/231812 <Electronically signed by Gogo Santizo MD> Cosigner Signature (if applicable): CC: ~ Signed [facility] Work Phone: 1(498) 608-977612-14-2023 Procedure [facility] 04-10-2023 History of Present illness Narrative* Demarcus Higginbotham LPN - 04/10/2023 2:26 PM EST Scan on 04/10/2023 10:15 AM by Provider, YURIDIA Valle: Consultation - Ophthalmology documented in this encounterThe Metrohealth System11-27-2023 History of Present illness Narrative* Melody Cano APRN.[facility] - 03/26/2023 12:09 PM EST Chief Complaint [...] for surgery from my standpoint. Melody Cano APRN.[facility] documented in this encounterThe Metrohealth System11-22-2023 Miscellaneous Notes* Telephone Encounter - Mary Worthington - 03/21/2023 2:45 PM EST Pre-op form received. Mary Worthington * Telephone Encounter - Demarcus Higginbotham LPN - 03/15/2023 3:26 PM EST Received pre -op forms form [facility]. Pt has appointment with Melody Cano 03/26. Forms placed in her mailbox. Demarcus Higginbotham LPN documented in this encounterThe Metrohealth System07-15-2023 Miscellaneous Notes* Telephone Encounter - César Merrill [...] notify patient. Elvia Condon documented in this encounterThe [facility]health System04-11-2023 Miscellaneous Notes* Telephone Encounter - César Merrill [...] notify patient. Shima Ramon documented in this [facility]03-09-2023 History of Present illness Narrative* Diamond Cain MA - 07/06/2022 2:55 PM EST Scan on 07/04/2022 11:06 AM by External Provider: Consultation - Cardiology Scan on 07/04/2022 11:54 AM by External Provider: Chemistry Diamond Cain MA documented in this encounterThe Metrohealth System02-01-2023 Instructions* Patient Instructions* César Merrill MD - 05/31/2022 8:12 AM EST Please bring in copies of your living ramos and durable power of regulatory attorney for health care. documented in this encounterThe Metrohealth System02-01-2023 History of Present illness Narrative* César Merrill [...] BMI 36.94 kg/(m^2) - Patient was counseled [id number]-[id number] by myself (the billing provider) for the [...] - LIPID PANEL, NONFASTING 6. Atherosclerosis of [place] coronary artery of [place] heart without angina pectoris - ICD9: 414.01, [...] routine César Merrill MD documented in this encounterThe [facility]health System01-09-2023 Miscellaneous Notes* Telephone Encounter - Diamond Cain [...] notify patient. Shima Ramon documented in this encounterThe Metrohealth System12-12-2022 Miscellaneous Notes* Telephone Encounter - Mary Portillo LPN - 04/10/2022 10:54 AM EST Order for overnight oximetry faxed to [facility] Mary Portillo LPN * Telephone Encounter - Meggan Milligan PA-C - 04/10/2022 10:52 AM EST Printed order for nocturnal oximetry on RA with CPAP. Please FAX to [facility]. Meggan Milligan PA-C * Telephone Encounter - Mary Portillo LPN - 04/05/2022 10:03 AM EST [facility] 03/2021. Patient was requiring 2L at night. Mary Portillo LPN * Telephone Encounter - Karina Mcdonough LPN - 04/05/2022 9:56 AM EST Atlee, patients son, called. Verified name and date of of patient. Atlee states he has been trying to get [facility] to [employer] that patient no longer uses and was told by them yesterday a referral is needed sent to [facility] to pickling [employer] the [employer]. Karina Mcdonough LPN documented in this encounterThe Metrohealth System10-14-2022 Miscellaneous Notes* Telephone Encounter - Diamond Cain [...] 07/2021 * Telephone Encounter - Jada Newton Pss - 02/10/2022 9:38 AM EDT Patient has [...] advise. Jada Newton Pss documented in this encounterThe Metrohealth System07-21-2022 Miscellaneous Notes* Telephone Encounter - May Doe [...] him with her dementia) documented in this encounterThe [facility]health System07-19-2022 History of Present illness Narrative* César Merrill [...] D2 ORAL) Take 2,000 Units by mouth. Zqyhpgeeerj-Esdvzloik-Iuv C-Mn (GLUCOSAMINE CHONDROITIN MAXSTR) 500-400 mg cap Take 1 capsule by mouth twice daily. simvastatin (ZOCOR) 80 mg tablet Take 1 tablet by mouth daily at bedtime. Per Dr. Barba Cinnamon Bark (CINNAMON) 500 mg cap Take 500 mg by mouth. Tjnprqggldcma-Vobnzkjj-Rdtsww (CENTRUM SILVER) Tab Take 1 tablet by [...] Abs Lymph 1.00 - 4.00 k/uL 1.68 [place]% % 11.5 Abs [place] <0.87 k/uL 0.62 Eosin% % 3.9 Abs [...] - Continue current therapy. 5. Atherosclerosis of [place] coronary artery of [place] heart without angina pectoris - ICD9: 414.01, [...] PE César Merrill MD documented in this encounterThe [facility]health System05-31-2022 Miscellaneous Notes* Telephone Encounter - Demarcus Higginbotham LPN - 09/27/2021 8:46 AM EDT Pt's son advised of results. Demarcus Higginbotham LPN * Telephone Encounter - Katarzyna Munson PA-C - 09/27/2021 7:30 AM EDT Repeat calcium level is normal. Katarzyna Munson PA-C documented in this encounterThe Metrohealth System05-27-2022 Instructions* Patient Instructions* Katarzyna Munson PA-C - 09/23/2021 11:21 AM EDT Repeat calcium labs today. Follow up as scheduled in October. Return sooner as needed. documented in this encounterThe Metrohealth System05-27-2022 History of Present illness Narrative* Katarzyna Munson PA-C - 09/23/2021 11:14 AM EDT Chief Complaint Patient presents with: Recheck: labs done [facility] HPI Katharine Cano is a 76 year old male who presents here today for Above Complaints.. Patient was seen in [facility] on 09/19/21 for abdominal pain/nausea. Symptoms at that time had seemed to start improving but patient had some LLQ pain on exam so [facility] provider discussed with me and we had [...] D2 ORAL) Take 2,000 Units by mouth. Djgxqupzncl-Mojrmggao-Mfi C-Mn (GLUCOSAMINE CHONDROITIN MAXSTR) 500-400 mg cap Take 1 capsule by mouth twice daily. simvastatin (ZOCOR) 80 mg tablet Take 1 tablet by mouth daily at bedtime. Per Dr. Barba Cinnamon Bark (CINNAMON) 500 mg cap Take 500 mg by mouth. Pfaotjptojfos-Xtjiqfly-Qkxumw (CENTRUM SILVER) Tab Take 1 tablet by [...] Abs Lymph 1.00 - 4.00 k/uL 2.18 [place]% % 10.7 Abs [place] <0.87 k/uL 0.80 Eosin% % 1.2 Abs [...] prior. Katarzyna Munson PA-C documented in this encounterThe Metrohealth System05-24-2022 Miscellaneous Notes* Telephone Encounter - Zahra Currie [...] keep his appointment tomorrow. documented in this encounterThe Metrohealth System05-23-2022 History of Present illness Narrative* César Ghotra [...] D2 ORAL) Take 2,000 Units by mouth. Vadsfnfxmbm-Qzocorpxa-Izo C-Mn (GLUCOSAMINE CHONDROITIN MAXSTR) 500-400 mg cap Take 1 capsule by mouth twice daily. simvastatin (ZOCOR) 80 mg tablet Take 1 tablet by mouth daily at bedtime. Per Dr. Barba Cinnamon Bark (CINNAMON) 500 mg cap Take 500 mg by mouth. Vjdlcjspjsqnm-Ztrdkool-Mxilbf (CENTRUM SILVER) Tab Take 1 tablet by [...] ofcare. César Ghotra APRN.[facility] documented in this encounterThe [facility]health System04-12-2022 Miscellaneous Notes* Telephone Encounter - César Merrill [...] notify patient. Elvia Condon documented in this encounterThe [facility]health System03-24-2022 History of Present illness Narrative* Demarcus Higginbotham LPN - 07/21/2021 9:35 AM EDT Scan on 07/21/2021 9:08 AM by External Provider: Chemistry documented in this encounterThe Metrohealth System02-28-2022 Miscellaneous Notes* Telephone Encounter - Catarina Solomon - 06/27/2021 12:20 PM EST Patient has [...] patient. Catarina Calvert Pss documented in this encounterThe Metrohealth System10-15-2021 History of Present illness Narrative* Christine Hendrix RT(R) - 02/11/2021 2:10 PM EDT Radiology [...] 11, 2021 2:06 PM documented in this encounterThe Metrohealth System04-01-1998 Evaluation note* Diagnosis Onset Date Resolution Status Essential hypertension acute Atherosclerotic heart diseas e of [place] coronary artery without angina pectoris chronic Hyperlipidemia chronic Stented coronary artery July, [facility] Work Phone: 1(468) 347-582904-01-1998 Evaluation note* Diagnosis Onset Date Resolution Status SEYMOUR (dyspnea on exertion) ac tray Essential hypertension acute Hyperlipidemia chronic Nonrheumatic mitral (valve) prolapse chronic Stented coronary artery July, [facility] Work Phone: 1(464) 957-903004-01-1998 Evaluation note* Diagnosis Onset Date Resolution Status Essential hypertension acute Hyperlipidemia chronic Nonrheumatic mitral (valve) prolapse chronic Stented coronary artery July, [facility] Bradycardia acute First degree heart block acu te Hypoxia acute Lumbar stenosis acute Diabetes mellitus type II, controlled chronic Stented coronary artery July, [facility] Work Phone: Evaluation note* Diagnosis Abdominal pain, generalized- Primary documented in this encounter [facility] SystemEvaluation note* Diagnosis Generalized abdominal pain- Primary Abdominal pain, generalized Hypercalcemia documented in this encounter [facility] SystemEvaluation note* Diagnosis Type 2 diabetes mellitus without complication, without long-term current use of insulin (HCC)- Primary Diabetic eye exam (HCC) Type II or unspecified type diabetes mellitus without mention of complication, not stated as uncontrolled Hypertension, essential Unspecified essential hypertension Mixed hyperlipidemia Atherosclerosis of [place] coronary artery of [place] heart without angina pectoris KARLA (obstructive sleep apnea) Obstructive sleep apnea (adult) (pediatric) Nocturnal leg cramps Sleep related leg cramps Benign prostatic hyperplasia with urinary frequency Living will in place Advance directive discussed with patient Other specified counseling documented in this encounter [facility] SystemEvaluation note* Diagnosis Onset Date Resolution Status SEYMOUR (dyspnea on exertion) ac tray Essential hypertension acute Atherosclerotic heart diseas e of [place] coronary artery without angina pectoris chronic Hyperlipidemia chronic Nonrheumatic mitral (valve) prolapse chronic Stented coronary artery July, [facility] Work Phone: Evaluation note* Diagnosis Pneumonia due to COVID-19 virus- Primary documented in this encounter [facility] SystemEvaluation note* Diagnosis Nocturnal leg cramps Sleep related leg cramps Benign prostatic hyperplasia with urinary frequency documented in this encounter [facility] SystemEvaluation note* Diagnosis Well adult exam- Primary Routine general medical examination at a health care facility Type 2 diabetes mellitus without complication, without long-term current use of insulin (HCC) Diabetic eye exam ([facility]) Type II or unspecified type diabetes mellitus without mention of complication, not stated as uncontrolled Hypertension, essential Unspecified essential hypertension Mixed hyperlipidemia Atherosclerosis of [place] coronary artery of [place] heart without angina pectoris KARLA (obstructive sleep [...] disorder of prostate documented in this encounter [facility]* Diagnosis Nocturnal leg cramps Sleep related leg cramps Benign prostatic hyperplasia with urinary frequency documented in this encounter [facility]* Diagnosis Preop examination- Primary Preoperative examination, unspecified documented in this encounter [facility]* Diagnosis Diabetic eye exam (HCC) Type II or unspecified type diabetes mellitus without mention of complication, not stated as uncontrolled documented in this encounter [facility]* Diagnosis Hypoxemia- Primary History of COVID-19 documented in this encounter [facility]* Diagnosis Well adult exam- Primary Routine general medical examination at a health care facility Type 2 diabetes mellitus without complication, without long-term current use of insulin (HCC) Diabetic eye exam (HCC) Type II or unspecified type diabetes mellitus without mention of complication, not stated as uncontrolled Hypertension, essential Unspecified essential hypertension Mixed hyperlipidemia Atherosclerosis of [place] coronary artery of [place] heart without angina pectoris KARLA (obstructive sleep apnea) Obstructive sleep apnea (adult) (pediatric) Benign prostatic hyperplasia with urinary frequency Advance directive discussed with patient Other specified counseling Screening for colon cancer Special screening for malignant neoplasms, colon Prostate disorder Unspecified disorder of prostate Nocturnal leg cramps Sleep related leg cramps documented in this encounter [facility]* Diagnosis Anemia, unspecified type- Primary documented in this encounter [facility]* Diagnosis Vitamin B12 deficiency- Primary Other B-complex deficiencies [facility] Diagnosis Pneumonia due to COVID-19 virus [facility]* Diagnosis Type 2 diabetes mellitus without complication, without long-term current use of insulin (HCC)- Primary Diabetic eye exam (HCC) Type II or unspecified type diabetes mellitus without mention of complication, not stated as uncontrolled Hypertension, essential Unspecified essential hypertension Mixed hyperlipidemia Atherosclerosis of [place] coronary artery of [place] heart without angina pectoris KARLA (obstructive sleep apnea) Obstructive sleep apnea (adult) (pediatric) Vitamin B12 deficiency Other B-complex deficiencies Need for vaccination Need for prophylactic vaccination and inoculation against unspecified single disease Encounter for immunization Need for other specified prophylactic vaccination against single bacterial disease documented in this encounter [facility]* Diagnosis URI, acute- Primary Acute upper respiratory infections of unspecified site documented in this encounter [facility]* Diagnosis Well adult exam- Primary Routine general medical examination at a health care facility Type 2 diabetes mellitus without complication, without long-term current use of insulin (HCC) Diabetic eye exam ([facility]) Type II or unspecified type diabetes mellitus without mention of complication, not stated as uncontrolled Hypertension, essential Unspecified essential hypertension Mixed hyperlipidemia Atherosclerosis of [place] coronary artery of [place] heart without angina pectoris KARLA (obstructive sleep [...] and behavioral disorders documented in this encounter [facility] note* Diagnosis Coronary artery disease of [place] artery of [place] heart with stable angina pectoris ([facility])- Primary documented in this encounter [facility] note* Diagnosis Coronary artery disease involving [place] coronary artery of [place] heart without angina pectoris- Primary documented in this encounter [facility] note* Diagnosis Coronary artery disease of [place] artery of [place] heart with stable angina pectoris- Primary Shortness of breath Hypercholesteremia Pure hypercholesterolemia Primary hypertension Unspecified essential hypertension Diabetes mellitus type II, non insulin dependent (HCC) Type II or unspecified type diabetes mellitus without mention of complication, not stated as uncontrolled Localized edema Edema Iliac artery stenosis, bilateral Atherosclerosis of [place] arteries of the extremities, unspecified Atherosclerosis of [place] artery of both lower extremities with intermittent claudication CKD stage 3a, GFR 45-59 ml/min ([facility]) documented in this encounter [facility] for referral (narrative)* Outpatient Procedure (Routine) - Pending Review Specialty Diagnoses / Procedures Referred By Contac t Referred To Contact [facility] Diagnoses Hypoxemia Procedures OXIMETRY WITH AMBULATION NONINVASIVE EAR/PULSE OXIMETRY MULTIPLE May Higuera MD [address] [place] [address] [facility] [address] [place] [id number] Referral ID Status Reason Start Date Expiration Date Visits Requested Visits Authorized [id number] Pending Review Auto-Generat ed Referral 3 05/18/2024 1 1 [facility] for referral (narrative)No reason for referral information [facility] Work Phone: Chief Complaint and Reason for Visit Chief Complaint 1 y fu INT LABS Reason for Visit Essential hypertensi on Atherosclerotic heart disease of [place] coronary artery without angina pectoris Hyperlipidemia Stented coronary artery Chief Complaint 6 M FU DYSPNEA Reason for Visit [place] (dyspnea on exer tion) Essential hypertension Atherosclerotic heart disease of [place] coronary artery without angina pectoris Hyperlipidemia Nonrheumatic [...] 2024 9:26am Atherosclerotic heart diseas e of [place] coronary artery without angina pectoris July 10, 2024 9:26am Hyperlipidemia July 10, 2024 9:2 6am PAOD (peripheral arterial occlusive dise ase) August 29, 2024 10:57am Reason for Visit Admit Date Essential hypertension July 10, 2024 9:26am Atherosclerotic heart diseas e of [place] coronary artery without angina pectoris July 10, 2024 9:26am Hyperlipidemia July 10, 2024 9:2 6am PAOD (peripheral arterial occlusive dise ase) August 29, 2024 10:57am Atherosclerosis of [place] 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, [...] 2024 9:26am Atherosclerotic heart diseas e of [place] coronary artery without angina pectoris July 10, 2024 9:26am Hyperlipidemia July 10, 2024 9:2 6am PAOD (peripheral arterial occlusive dise ase) August 29, 2024 10:57am Atherosclerosis of [place] 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, bilateral October 09, 2024 2:55pm Essential hypertension October 29, 2024 10 :17am Preop cardiovascular exam October 29, 2024 10:17am Atherosclerotic heart diseas e of [place] coronary artery without angina pectoris October 29, 2024 10:17am Hyperlipidemia October 29, 2024 10:17 am Chief Complaint Admit Date Severe PVD August 29, 2024 10:57a m Disorder of arteries and arterioles, uns pecified October 03, 2024 7:53am Discuss CTA October 09, 2024 2:55 pm Surgical Clearance (See Note) October 29, 2024 10:17am PREOP November 12, 2024 6:26 am PREOP November 12, 2024 12:0 9pm PREOP November 14, 2024 10:2 2am Reason for Visit Admit Date PAOD (peripheral arterial occlusive dise ase) August 29, 2024 10:57am Atherosclerosis of [place] 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, bilateral October 09, 2024 2:55pm Essential hypertension October 29, 2024 10 :17am Preop cardiovascular exam October 29, 2024 10:17am Atherosclerotic heart diseas e of [place] coronary artery without angina pectoris October 29, 2024 10:17am Hyperlipidemia October 29, 2024 10:17 am Reason for Visit Admit Date PAOD (peripheral arterial occlusive dise ase) August 29, 2024 10:57am Atherosclerosis of [place] 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, bilateral October 09, 2024 2:55pm Essential hypertension October 29, 2024 10 :17am Preop cardiovascular exam October 29, 2024 10:17am Atherosclerotic heart diseas e of [place] coronary artery without angina pectoris October 29, 2024 10:17am Hyperlipidemia October 29, 2024 10:17 am Atherosclerosis of [place] 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, bilateral November 14, 2024 10:22am Chief Complaint Admit Date Severe PVD August 29, 2024 10:57a m Disorder of arteries and arterioles, uns pecified October 03, 2024 7:53am Discuss CTA October 09, 2024 2:55 pm Surgical Clearance (See Note) October 29, 2024 10:17am PREOP November 12, 2024 6:26 am PREOP November 12, 2024 12:0 9pm PREOP November 14, 2024 10:2 2am Abnormal result of other cardiovascular function s November 27, 2024 7:24am Chief Complaint Admit Date Disorder of arteries and arterioles, uns pecified October 03, 2024 7:53am Discuss CTA October 09, 2024 2:55 pm Surgical Clearance (See Note) October 29, 2024 10:17am PREOP November 12, 2024 6:26 am PREOP November 12, 2024 12:0 9pm PREOP November 14, 2024 10:2 2am Abnormal result of other cardiovascular function s November 27, 2024 7:24am PRE OP BUBBLE,AORTIC VALVE STENOSIS Sept ember 2024 7:36am Reason for Visit Admit Date Atherosclerosis of [place] 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, bilateral October 09, 2024 2:55pm Essential hypertension October 29, 2024 10 :17am Preop cardiovascular exam October 29, 2024 10:17am Atherosclerotic heart diseas e of [place] coronary artery without angina pectoris October 29, 2024 10:17am Hyperlipidemia October 29, 2024 10:17 am Atherosclerosis of [place] 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, bilateral November 14, 2024 10:22am Family History Relationship Condition Age at Onset Recorded Date/T fabio father Coronary artery disease Unknown mother Cardiac disease Unknown sister Malignant neoplasm of kidney Unknown Advance Directives Advance Directive Response Recorded Date/ Time Living Will No January 30 2:08pm Power of Sidewalk Repairer No January 30 021 2:08pm Advance Directive Response Recorded Date/ Time Name of Medical Power of Sidewalk Repairer SON April 12, 2023 4:00pm Living Will Yes April 12, 023 4:00pm Power of Sidewalk Repairer Yes April 12, 2023 4:00pm Advance Directive Response Recorded Date/ Time Advance Directives No November 26 12:15pm Advance Directive Response Recorded Date/ Time Advance Directives on File No November 26, 2024 12:15pm Living Will No November 27, 2024 7:48am Do you have a Healthcare Power of Sidewalk Repairer? No November 27, 2024 7:48am Advance Directives No November 27 7:48am Summary Purpose Additional Source Comments Source Comments (unrecognize d section and content) In the event this informatio n is protected by the Federal Confidentiality of Alcohol and Drug Abuse Patient Records regulations: The Federal rules restrict any use of the information to criminally investigate or prosecute any alcohol or drug abuse patient.[facility] the event this information is protected by the Federal Confidentiality of Alcohol and Drug Abuse Patient Records regulations: The Federal rules restrict any use of the information to criminally investigate or prosecute any alcohol or drug abuse patient.[facility] SystemIn the event this information is protected by the Federal Confidentiality of Alcohol and Drug Abuse Patient Records regulations: The Federal rules restrict any use of the information to criminally investigate or prosecute any alcohol or drug abuse patient.[facility] SystemIn the event this information is protected by the Federal Confidentiality of Alcohol and Drug Abuse Patient Records regulations: The Federal rules restrict any use of the information to criminally investigate or prosecute any alcohol or drug abuse patient.[facility] SystemIn the event this information is protected by the Federal Confidentiality of Alcohol and Drug Abuse Patient Records regulations: The Federal rules restrict any use of the information to criminally investigate or prosecute any alcohol or drug abuse patient.[facility] SystemIn the event this information is protected by the Federal Confidentiality of Alcohol and Drug Abuse Patient Records regulations: The Federal rules restrict any use of the information to criminally investigate or prosecute any alcohol or drug abuse patient.[facility] SystemIn the event this information is protected by the Federal Confidentiality of Alcohol and Drug Abuse Patient Records regulations: The Federal rules restrict any use of the information to criminally investigate or prosecute any alcohol or drug abuse patient.[facility] SystemIn the event this information is protected by the Federal Confidentiality of Alcohol and Drug Abuse Patient Records regulations: The Federal rules restrict any use of the information to criminally investigate or prosecute any alcohol or drug abuse patient.[facility] SystemIn the event this information is protected by the Federal Confidentiality of Alcohol and Drug Abuse Patient Records regulations: The Federal rules restrict any use of the information to criminally investigate or prosecute any alcohol or drug abuse patient.[facility] SystemIn the event this information is protected by the Federal Confidentiality of Alcohol and Drug Abuse Patient Records regulations: The Federal rules restrict any use of the information to criminally investigate or prosecute any alcohol or drug abuse patient.[facility] SystemIn the event this information is protected by the Federal Confidentiality of Alcohol and Drug Abuse Patient Records regulations: The Federal rules restrict any use of the information to criminally investigate or prosecute any alcohol or drug abuse patient.[facility] SystemIn the event this information is protected by the Federal Confidentiality of Alcohol and Drug Abuse Patient Records regulations: The Federal rules restrict any use of the information to criminally investigate or prosecute any alcohol or drug abuse patient.[facility] SystemIn the event this information is protected by the Federal Confidentiality of Alcohol and Drug Abuse Patient Records regulations: The Federal rules restrict any use of the information to criminally investigate or prosecute any alcohol or drug abuse patient.[facility] SystemIn the event this information is protected by the Federal Confidentiality of Alcohol and Drug Abuse Patient Records regulations: The Federal rules restrict any use of the information to criminally investigate or prosecute any alcohol or drug abuse patient.[facility] SystemIn the event this information is protected by the Federal Confidentiality of Alcohol and Drug Abuse Patient Records regulations: The Federal rules restrict any use of the information to criminally investigate or prosecute any alcohol or drug abuse patient.[facility] SystemIn the event this information is protected by the Federal Confidentiality of Alcohol and Drug Abuse Patient Records regulations: The Federal rules restrict any use of the information to criminally investigate or prosecute any alcohol or drug abuse patient.[facility] SystemIn the event this information is protected by the Federal Confidentiality of Alcohol and Drug Abuse Patient Records regulations: The Federal rules restrict any use of the information to criminally investigate or prosecute any alcohol or drug abuse patient.[facility] SystemIn the event this information is protected by the Federal Confidentiality of Alcohol and Drug Abuse Patient Records regulations: The Federal rules restrict any use of the information to criminally investigate or prosecute any alcohol or drug abuse patient.[facility] SystemIn the event this information is protected by the Federal Confidentiality of Alcohol and Drug Abuse Patient Records regulations: The Federal rules restrict any use of the information to criminally investigate or prosecute any alcohol or drug abuse patient.[facility] SystemIn the event this information is protected by the Federal Confidentiality of Alcohol and Drug Abuse Patient Records regulations: The Federal rules restrict any use of the information to criminally investigate or prosecute any alcohol or drug abuse patient.[facility] SystemIn the event this information is protected by the Federal Confidentiality of Alcohol and Drug Abuse Patient Records regulations: The Federal rules restrict any use of the information to criminally investigate or prosecute any alcohol or drug abuse patient.[facility] SystemIn the event this information is protected by the Federal Confidentiality of Alcohol and Drug Abuse Patient Records regulations: The Federal rules restrict any use of the information to criminally investigate or prosecute any alcohol or drug abuse patient.[facility] SystemIn the event this information is protected by the Federal Confidentiality of Alcohol and Drug Abuse Patient Records regulations: The Federal rules restrict any use of the information to criminally investigate or prosecute any alcohol or drug abuse patient.[facility] SystemIn the event this information is protected by the Federal Confidentiality of Alcohol and Drug Abuse Patient Records regulations: The Federal rules restrict any use of the information to criminally investigate or prosecute any alcohol or drug abuse patient.[facility] SystemIn the event this information is protected by the Federal Confidentiality of Alcohol and Drug Abuse Patient Records regulations: The Federal rules restrict any use of the information to criminally investigate or prosecute any alcohol or drug abuse patient.[facility] SystemIn the event this information is protected by the Federal Confidentiality of Alcohol and Drug Abuse Patient Records regulations: The Federal rules restrict any use of the information to criminally investigate or prosecute any alcohol or drug abuse patient.[facility] SystemIn the event this information is protected by the Federal Confidentiality of Alcohol and Drug Abuse Patient Records regulations: The Federal rules restrict any use of the information to criminally investigate or prosecute any alcohol or drug abuse patient.[facility] SystemIn the event this information is protected by the Federal Confidentiality of Alcohol and Drug Abuse Patient Records regulations: The Federal rules restrict any use of the information to criminally investigate or prosecute any alcohol or drug abuse patient.[facility] SystemIn the event this information is protected by the Federal Confidentiality of Alcohol and Drug Abuse Patient Records regulations: The Federal rules restrict any use of the information to criminally investigate or prosecute any alcohol or drug abuse patient.[facility] SystemIn the event this information is protected by the Federal Confidentiality of Alcohol and Drug Abuse Patient Records regulations: The Federal rules restrict any use of the information to criminally investigate or prosecute any alcohol or drug abuse patient.[facility] SystemIn the event this information is protected by the Federal Confidentiality of Alcohol and Drug Abuse Patient Records regulations: The Federal rules restrict any use of the information to criminally investigate or prosecute any alcohol or drug abuse patient.[facility] SystemIn the event this information is protected by the Federal Confidentiality of Alcohol and Drug Abuse Patient Records regulations: The Federal rules restrict any use of the information to criminally investigate or prosecute any alcohol or drug abuse patient.[facility] SystemIn the event this information is protected by the Federal Confidentiality of Alcohol and Drug Abuse Patient Records regulations: The Federal rules restrict any use of the information to criminally investigate or prosecute any alcohol or drug abuse patient.[facility] SystemIn the event this information is protected by the Federal Confidentiality of Alcohol and Drug Abuse Patient Records regulations: The Federal rules restrict any use of the information to criminally investigate or prosecute any alcohol or drug abuse patient.[facility] SystemIn the event this information is protected by the Federal Confidentiality of Alcohol and Drug Abuse Patient Records regulations: The Federal rules restrict any use of the information to criminally investigate or prosecute any alcohol or drug abuse patient.[facility] SystemIn the event this information is protected by the Federal Confidentiality of Alcohol and Drug Abuse Patient Records regulations: The Federal rules restrict any use of the information to criminally investigate or prosecute any alcohol or drug abuse patient.[facility] SystemIn the event this information is protected by the Federal Confidentiality of Alcohol and Drug Abuse Patient Records regulations: The Federal rules restrict any use of the information to criminally investigate or prosecute any alcohol or drug abuse patient.[facility] SystemIn the event this information is protected by the Federal Confidentiality of Alcohol and Drug Abuse Patient Records regulations: The Federal rules restrict any use of the information to criminally investigate or prosecute any alcohol or drug abuse patient.[facility] SystemIn the event this information is protected by the Federal Confidentiality of Alcohol and Drug Abuse Patient Records regulations: The Federal rules restrict any use of the information to criminally investigate or prosecute any alcohol or drug abuse patient.[facility] Reason for Visit (unrecogniz ed section and [...] Diagnoses consult/test/treat Procedures consult/test/treat César Merrill MD [address] [place] [address] [facility] Dept Referral ID Status Reason Start Date Expiration Date Visits Requested Visits Authorized [id number] Authorized Patient Cleared - Qualified 100% FAS [...] Diagnoses consult/test/treat Procedures consult/test/treat César Merrill MD [address] [place] [address] [place] [address] Referral ID Status Reason Start Date Expiration Date V isits Requested Visits Authorized [id number] Closed Patient Cleared - Qualified 100% FAS 11/28/2022 02/28/2023 99 99 Reason Comments Hospital F/U Specialty Diagnoses / Procedures Referred By Contac t Referred To Contact [facility] Diagnoses [facility] Hosp discharge oxygen levels dropped after surgery was discharged with O2 Procedures hosp follow up Self [facility] [address] [place] [address] Referral ID Status Reason Start Date Expiration Date Visits Requested Visits Authorized [id number] Authorized Patient Cleared - Qualified 100% FAS 3 07/15/2023 99 99 Specialty Diagnoses / Procedures Referred By Contac t Referred To Contact Family Medicine / FAMILY MEDICINE Diagnoses [facility] FOLLOW UP-COVID/PNEUMONIA DISCHARGED 02/02 Procedures 4C EST HOSP/ER FU Self Terry Sullivan, ENVIRONMENTAL SCIENCE INSTRUCTOR.VEHICLE TRIMMER, DNP [address] [place] [address] Referral ID Status Reason Start Date Expiration Date V isits Requested Visits Authorized [id number] Closed Patient Cleared - Qualified 100% FAS 02/11/2021 05/12/2021 99 99 Reason Comments 6 Month Exam Specialty Diagnoses / Procedures Referred By Contac t Referred To Contact Family Medicine / FAMILY MEDICINE Diagnoses 6 month follow up Procedures 4C EST César Merrill MD [address] [place] [address] César Merrill MD [address] [place] [address] Referral ID Status Reason Start Date Expiration Date Visits Requested Visits Authorized [id number] Authorized Patient Cleared - Qualified 100% FAS 4 05/14/2024 99 99 Reason Comments Chest Congestion cough x 3 days Reason Comments Outside Diabetic Eye Exam Reason Onset Date Comments Refill Request 07/18/2024 Reason Comments Physical Specialty Diagnoses / Procedures Referred By Contac t Referred To Contact Family Medicine / [facility] Diagnoses cough, chest congestion Procedures EST SAME DAY Self Deysi Cain APRN.VEHICLE TRIMMER [address] [place] [address] Phone: tel: fax: Referral ID Status Reason Start Date Expiration Date Visits Requested Visits Authorized [id number] Authorized Patient Cleared - Qualified 100% FAS 06/10/2024 09/08/2024 99 99 Reason Comments Patient Update Reason Comments Outside Vascular Reason Onset Date Comments Refill Request 09/10/2024 Reason Onset Date Comments Refill Request 10/14/2024 Reason Comments Results Outside results Reason Comments Outside Stress Test Reason Comments New Patient Specialty Diagnoses / Procedures Referred By Contact Referred To Contact Cardiothoracic Surgery Diagnoses 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 Nonrheumatic mitral (valve) prolapse Atrioventricular block, 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, 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, unspecified (HCC) Procedures [place] OFFICE/OUTPATIENT NEW HIGH MDM 60 MINUTES Debbie Remy MD [address] [place] [address] Phone: tel:[phone] fax:[phone] Jem Forrest DO [address] [place] [address] Phone: tel: fax:[phone] Referral ID Status Reason Start Date Expiration Date Visits Re quested Visits Authorized [id number] Closed 12/08/2024 12/08/2025 1 1 Reason Comments New Patient Coronary Artery Disease Care Teams (unrecognized sec tion and content) Applied Statistician Relationship Specialty Start Date End Date César Merrill MD [address] [place], [place] [id number] PCP - General Family Practice 12/11/16 Applied Statistician Relationship Specialty Start Date End Date César Merrill MD [address] [place], [place] [id number] [phone] PCP - General Family Practice 12/11/16 Applied Statistician Relationship Specialty Start Date End Date César Merrill MD [address] [place], [place] [id number] [phone] PCP - General Family Practice 12/11/16 Applied Statistician Relationship Specialty Start Date End Date César Merrill MD [address] [place] [address] PCP - General Family Practice 12/11/16 Applied Statistician Relationship Specialty Start Date End Date César Merrill MD [address] [place] [address] PCP - General Family Practice 12/11/16 Applied Statistician Relationship Specialty Start Date End Date César Merrill MD [facility] [place] [address] PCP - General Family Practice 12/11/16 Applied Statistician Relationship Specialty Start Date End Date César Merrill MD [address] [place] [address], [place] [address] PCP - General Family Practice 12/11/16 Applied Statistician Relationship Specialty Start Date End Date César Merrill MD [address] [place] [address] [place] [address] PCP - General Family Practice 12/11/16 Applied Statistician Relationship Specialty Start Date End Date César Merrill MD [address] [place] [address] [place] [address] PCP - General Family Medicine 12/11/16 Applied Statistician Relationship Specialty Start Date End Date César Merrill MD [address] [place] [address] [place] [address] PCP - General Family Medicine 12/11/16 Applied Statistician Relationship Specialty Start Date End Date César Merrill MD [facility] [place] [address] PCP - General Family Medicine 12/11/16 Applied Statistician Relationship Specialty Start Date End Date César Merrill MD [address] [place] [address], [place] [address] PCP - General Family Medicine 12/11/16 Applied Statistician Relationship Specialty Start Date End Date César Merrill MD [address] [place] [address] PCP - General Family Medicine 12/11/16 Team Status: Active Member Role Status Dates Dr. César Merrill MD Family Provider Active Dr. César Merrill MD Primary Care Provider Active Team Status: Inactive Member Role Status Dates Dr. César Merrill MD Primary Care Provider, Referri ng Provider Active January Loera PROGRAM ADVISOR, PROGRAM ADVISOR-C Attending Provider Active Team Status: Inactive Member Role Status Dates Dr. César Merrill MD Primary Care Provider Active January Loera PROGRAM ADVISOR, PROGRAM ADVISOR-C Attending Provider, Patrick gregory Active Applied Statistician Relationship Specialty Start Date End Date César Merrill MD [address] [place] [address] PCP - General Family Medicine 12/11/16 Applied Statistician Relationship Specialty Start Date End Date César Merrill MD [address] [place] [address] PCP - General Family Medicine 12/11/16 Applied Statistician Relationship Specialty Start Date End Date César Merrill MD [address] [place] [address] PCP - General Family Medicine 12/11/16 Applied Statistician Relationship Specialty Start Date End Date César Merrill MD [address] [place] [address] PCP - General Family Medicine 12/11/16 Applied Statistician Relationship Specialty Start Date End Date César Merrill MD [address] [place] [address] PCP - General Family Medicine 12/11/16 Applied Statistician Relationship Specialty Start Date End Date César Merrill MD [address] [place] [address] PCP - General Family Medicine 12/11/16 Applied Statistician Relationship Specialty Start Date End Date César Merrill MD [address] [place] [address] PCP - General Family Medicine 12/11/16 Applied Statistician Relationship Specialty Start Date End Date César Merrill MD [address] [place] [address] PCP - General Family Medicine 12/11/16 Applied Statistician Relationship Specialty Start Date End Date César Merrill MD [address] [place] [address] PCP - General Family Medicine 12/11/16 Applied Statistician Relationship Specialty Start Date End Date César Merrill MD [address] [place] [address] PCP - General Family Medicine 12/11/16 Applied Statistician Relationship Specialty Start Date End Date César Merrill MD [address] [place] [address] PCP - General Family Medicine 12/11/16 Team Status: Inactive Member Role Status Dates Dr. César Merrill MD Primary Care Provider, Referri ng Provider Active Rayna MITCHELL, PA Attending Provider Active Team Status: Active Member Role Status Dates Dr. César Merrill MD Primary Care Provider Active Dr. César Tijerina , DO Admit Provider, R eferring Provider, Other Provider Active Dr. Gogo Santizo MD Attending Provider, Other Provid er Active Team Status: Active Member Role Status Dates Dr. César Merrill MD Primary Care Provider Active Dr. César Tijerina , DO Admit Provider, R eferring Provider, Other Provider Active Dr. Gogo Santizo MD Other Provider Active Dr. Lenore Robledo DO Attending Provider, Other Provide r Active Team Status: Inactive Member Role Status Dates Dr. César Merrill MD Primary Care Provider Active Dr. César Tijerina , DO Admit Provider, A ttending Provider, Referring Provider Active Dr. Gogo Santizo MD Other Provider Active Dr. Lenore Robledo , Other Provider Active Applied Statistician Relationship Specialty Start Date End Date César Merrill MD [address] [place] [address] PCP - General Family Medicine 12/11/16 Fartun Knight, BOBBY.VEHICLE TRIMMER [address] [place] [address] Tip Tester Family Medicine 04/05/24 Katarzyna Munson PA-C [address] [place] [address] Tip Tester Family Medicine 04/05/24 Applied Statistician Relationship Specialty Start Date End Date César Merrill MD [address] [place] [address] PCP - General Family Medicine 12/11/16 Fartun Knight, BOBBY.VEHICLE TRIMMER [address] [place] [address] Tip Tester Family Medicine 04/05/24 Katarzyna Munson PA-C [address] [place] [address] Tip Tester Family Medicine 04/05/24 Applied Statistician Relationship Specialty Start Date End Date César Merrill MD [address] [place] [address] PCP - General Family Medicine 12/11/16 Fartun Knight, ENVIRONMENTAL SCIENCE INSTRUCTOR.VEHICLE TRIMMER [address] [place] [address] Tip Tester Family Medicine 04/05/24 Katarzyna Munson PA-C [address] [place] [address] Tip Tester Family Medicine 04/05/24 Applied Statistician Relationship Specialty Start Date End Date César Merrill MD [address] [place] [address] PCP - General Family Medicine 12/11/16 Fartun Knight APRN.VEHICLE TRIMMER [address] [place] [address] Tip Tester Family Medicine 04/05/24 Katarzyna Munson PA-C [address] [place] [address] Tip Tester Family Medicine 04/05/24 Applied Statistician Relationship Specialty Start Date End Date César Merrill MD [address] [place] [address] PCP - General Family Medicine 12/11/16 Fartun Knight APRN.VEHICLE TRIMMER [address] [place] [address] Tip Tester Family [facility] 04/05/24 Katarzyna Munson PA-C [address] [place] [address] Tip Tester Family Medicine 04/05/24 Applied Statistician Relationship Specialty Start Date End Date César Merrill MD [address] [place] [address] PCP - General Family Medicine 12/11/16 08/03/24 César Merrill MD [address] [place] [address] PCP - General Family Medicine 08/04/24 Fartun Knight APRN.VEHICLE TRIMMER [facility] [place] [address] Tip Tester Family [facility] 04/05/24 Katarzyna Munson PA-C [address] [place] [phone] [facility] Applied Statistician Relationship Specialty Start Date End Date César Merrill MD [address] [place] [address] PCP - General Family Medicine 08/04/24 Fartun Knight APRN.VEHICLE TRIMMER [address] [place] [phone] Tip Tester [facility] 04/05/24 Katarzyna Munson PA-C [address] [place] [phone] [facility] 04[facility]/24 Applied Statistician Relationship Specialty Start Date End Date César Merrill MD [address] [place] [address] PCP - General Family Medicine 08/04/24 Fartun Knight APRN.VEHICLE TRIMMER [address] [place] [phone] [facility] 04/05/24 Katarzyna Munson PA-C [address] [place] [address] Tip Tester Family Medicine 04/05/24 Team Status: Active Member [...] October 03, 2024 End: October 03, 2024 Applied Statistician Relationship Specialty Start Date End Date César Merrill MD [address] [place] [address] PCP - General Family Medicine 08/04/24 Fartun Knight APRN.VEHICLE TRIMMER [address] [place] [address] Tip Tester Family Medicine 09/29/24 Katarzyna Munson PA-C [address] [place] [address] [facility] 09/29/24 Applied Statistician Relationship Specialty Start Date End Date César Merrill MD [address] [place] [address] PCP - General Family Medicine 08/04/24 Fartun Knight APRN.VEHICLE TRIMMER [address] [place] [phone] Tip Tester Family [facility] 09/29/24 Katarzyna Munson PA-C [address] [place] [address] [facility] 09/29/24 Applied Statistician Relationship Specialty Start Date End Date César Merrill MD [address] [place] [address] PCP - General Family Medicine 08/04/24 Fartun Knight APRN.VEHICLE TRIMMER [address] [place] [address] [facility] Medicine 09/29/24 Katarzyna Munson PA-C [address] [place] [address] [facility] Medicine 09/29/24 Team Status: Active Member Role/Relationship [...] 2024 End: October 29, 2024 Trey Malagon NP, PROGRAM ADVISOR-C Attending Provider Active S tart: October 29, 2024 End: October 29, 2024 Team Status: Inactive Member Role/Relationship [...] 2024 End: October 29, 2024 Trey Malagon PROGRAM ADVISOR, PROGRAM ADVISOR-C Attending Provider Active S tart: October 29, 2024 End: October 29, 2024 Team Status: Active Member Role/Relationship Status Dates Dr. César Merrill MD Primary Care Provider Active Start: November 12, 2024 Trey Malagon PROGRAM ADVISOR, PROGRAM ADVISOR-C Attending Provider Active S tart: November 12, 2024 Trey Malagon PROGRAM ADVISOR, PROGRAM ADVISOR-C Referring Provider Active S tart: November 12, 2024 Team Status: Active Member Role/Relationship Status Dates Dr. César Merrill MD Primary Care Provider Active Start: November 12, 2024 Trey Malagon PROGRAM ADVISOR, PROGRAM ADVISOR-C Referring Provider Active S tart: November 12, 2024 Trey Malagon PROGRAM ADVISOR, PROGRAM ADVISOR-C Other Provider Active Start : November 12, 2024 Dr. Debbie Remy MD Attending Provider Active Start: November 12, 2024 Team Status: Inactive Member Role/Relationship Status Dates Dr. César Merrill MD Primary Care Provider Active Start: November 14, 2024 End: November 14, 2024 Dr. César Merrill MD Referring Provider Active Start: November 14, 2024 End: November 14, 2024 Dr. John Nieto MD Attending Provider Active Start: November 14, 2024 End: November 14, 2024 Team Status: Inactive Member Role/Relationship Status Dates Dr. César Merrill MD Primary Care Provider Active Start: November 12, 2024 End: November 12, 2024 Trey Malagon PROGRAM ADVISOR, PROGRAM ADVISOR-C Attending Provider Active S tart: November 12, 2024 End: November 12, 2024 Trey Malagon PROGRAM ADVISOR, PROGRAM ADVISOR-C Referring Provider Active S tart: November 12, 2024 End: November 12, 2024 Team Status: Inactive Member Role/Relationship Status Dates Dr. César Merrill MD Primary Care Provider Active Start: November 21, 2024 End: November 21, 2024 Trey Malagon PROGRAM ADVISOR, PROGRAM ADVISOR-C Attending Provider Active S tart: November 21, 2024 End: November 21, 2024 Trey Malagon PROGRAM ADVISOR, PROGRAM ADVISOR-C Referring Provider Active S tart: November 21, 2024 End: November 21, 2024 Team Status: Inactive Member Role/Relationship Status Dates Dr. César Merrill MD Primary Care Provider Active Start: November 27, 2024 End: November 27, 2024 Trey Malagon PROGRAM ADVISOR, PROGRAM ADVISOR-C Other Provider Active Start : November 27, 2024 End: November 27, 2024 Dr. Debbie Remy MD Attending Provider Active Start: November 27, 2024 End: November 27, 2024 Dr. Debbie Remy MD Referring Provider Active Start: November 27, 2024 End: November 27, 2024 Applied Statistician Relationship Specialty Start Date End Date César Merrill MD [address] [place] [address] PCP - General Family Medicine 12/16/24 Team Status: Active Member Role/Relationship Status Dates Dr. César Merrill MD Primary care physician Active Team Status: Inactive Member Role/Relationship Status Dates Dr. César Merrlil MD Primary care physician Active Start: October 03, 2024 End: October 03, 2024 STEPHEN Toth Attending physician Active Sta rt: October 03, 2024 End: October 03, 2024 STEPHEN Toth Referring Provider Active Star t: October 03, 2024 End: October 03, 2024 Team Status: Inactive Member Role/Relationship Status Dates Dr. César Merrill MD Primary care physician Active Start: October 09, 2024 End: October 09, 2024 Dr. César Merrill MD Referring Provider Active Start: October 09, 2024 End: October 09, 2024 Dr. Lenny Taylor MD Attending physician Active Start: October 09, 2024 End: October 09, 2024 Team Status: Inactive Member Role/Relationship Status Dates Dr. César Merrill MD Primary care physician Active Start: October 29, 2024 End: October 29, 2024 Dr. César Merrill MD Referring Provider Active Start: October 29, 2024 End: October 29, 2024 Trey Malagon PROGRAM ADVISOR, PROGRAM ADVISOR-C Attending physician Active Start: October 29, 2024 End: October 29, 2024 Team Status: Inactive Member Role/Relationship Status Dates Dr. César Merrill MD Primary care physician Active Start: November 12, 2024 End: November 12, 2024 Trey Malagon PROGRAM ADVISOR, PROGRAM ADVISOR-C Attending physician Active Start: November 12, 2024 End: November 12, 2024 Trey Malagon PROGRAM ADVISOR, PROGRAM ADVISOR-C Referring Provider Active S tart: November 12, 2024 End: November 12, 2024 Team Status: Active Member Role/Relationship Status Dates Dr. César Merrill MD Primary care physician Active Start: November 12, 2024 Trey Malagon PROGRAM ADVISOR, PROGRAM ADVISOR-C Referring Provider Active S tart: November 12, 2024 Trey Malagon PROGRAM ADVISOR, PROGRAM ADVISOR-C Nurse Practitioner Active S tart: November 12, 2024 Dr. Debbie Remy MD Attending physician Active Start: November 12, 2024 Team Status: Inactive Member Role/Relationship Status Dates Dr. César Merrill MD Primary care physician Active Start: November 14, 2024 End: November 14, 2024 Dr. César Merrill MD Referring Provider Active Start: November 14, 2024 End: November 14, 2024 Dr. John Nieto MD Attending physician Active Start: November 14, 2024 End: November 14, 2024 Team Status: Inactive Member Role/Relationship Status Dates Dr. César Merrill MD Primary care physician Active Start: November 21, 2024 End: November 21, 2024 Trey Malagon PROGRAM ADVISOR, PROGRAM ADVISOR-C Attending physician Active Start: November 21, 2024 End: November 21, 2024 Trey Malagon PROGRAM ADVISOR, PROGRAM ADVISOR-C Referring Provider Active S tart: November 21, 2024 End: November 21, 2024 Team Status: Inactive Member Role/Relationship Status Dates Dr. César Merrill MD Primary care physician Active Start: November 27, 2024 End: November 27, 2024 Trey Malagon PROGRAM ADVISOR, PROGRAM ADVISOR-C Nurse Practitioner Active S tart: November 27, 2024 End: November 27, 2024 Dr. Debbie Remy MD Attending physician Active Start: November 27, 2024 End: November 27, 2024 Dr. Debbie Remy MD Referring Provider Active Start: November 27, 2024 End: November 27, 2024 Team Status: Inactive Member Role/Relationship Status Dates Dr. César Merrill MD Primary care physician Active Start: January 15, 2025 End: January 15, 2025 CHATA CAIN Attending physician Active Start : January 15, 2025 End: January 15, 2025 CHATA CAIN Referring Provider Active Start: January 15, 2025 End: January 15, 2025 Team Status: Active Member Role/Relationship Status Dates Dr. César Merrill MD Primary care physician Active Start: January 15, 2025 Dr. Lenny Taylor MD Attending physician Active Start: January 15, 2025 Team Status: Active Member Role/Relationship Status Dates Dr. César Merrill MD Primary care physician Active Start: January 15, 2025 Dr. Sean Croft MD Attending physician Active Start: January 15, 2025 Applied Statistician Relationship Specialty Start Date End Date César Merrill MD [address] [place], [place] [address] PCP - General Family Medicine 12/16/24 Applied Statistician Relationship Specialty Start Date End Date César Merrill MD [address] [place] [address] PCP - General Family Medicine 8/19/25 Goals (unrecognized section and content) Goals may [...] Records FoundNo Status Records FoundNo Status Records FoundNo Status Records Found INFORMATION SOURCE (unrecogn ized section and content) DATE CREATED AUTHOR 08/17/2023 [facility] DATE CREATED AUTHOR AUTHOR'S ORGANIZ ATION 02/27/2025 [facility] DATE CREATED AUTHOR AUTHOR'S ORGANIZ ATION 03/08/2025 [facility] DATE CREATED AUTHOR AUTHOR'S ORGANIZ ATION 03/12/2025 [facility] FOR RECORDS PERTAINING TO PATIENTS WHO ARE [...] BE BASED ON THE PRIMARY CLINICAL RECORDS. [facility] [employer] [facility]. provides no warranty or guarantee of the accuracy or completeness of information in this document.
[2025-03-20] MEDS: 0.9% Saline Lock 10 ML Syringe IV (21:21)
[2025-03-21 03:00] VITALS: BP 141/62; PULSE 98; RESP 16; TEMP 36.9; O2SAT 94
[2025-03-21 04:54] LABS: Hematocrit 36.6 % (40-54); Hemoglobin 12.4 g/dL (13.0-16.5); Mean Corp Hgb Conc 33.9 g/dL (32-36); Mean Corpuscular Volume 104.3 fL (80-94); Mean Platelet Vol. 9.4 fl (6.2-12.0); Platelet Count 182 K/mm3 (150-450); RBC Distribution Width CV 13.4 % (11.6-14.6); RBC Distribution Width SD 51.9 fl (35.1-43.9); Red Blood Count 3.51 M/mm3 (4.6-6.2); White Blood Count 4.7 K/mm3 (4.4-11.0)
[2025-03-21 05:17] LABS: Anion Gap 12 (5-15); BUN 24 mg/dL (4-19); BUN/Creat Ratio 16.1 RATIO (10-20); Calcium,Total 8.7 mg/dL (7.6-11.0); Carbon Dioxide 23.4 mmol/L (21.0-32.0); Chloride 104 mmol/L (98-108); Estimated Creatinine Clearance 43.32 ml/min (50-250); Glucose 201 mg/dL (70-99); Potassium 3.8 mmol/L (3.3-5.1)
--- NOTE | 2025-03-21 08:13 | CT_ITS ---
PROCEDURE: CHEST WITHOUT CONTRAST 03/21/2025 REASON FOR EXAM: HYPOXIA, ? CHF TECHNIQUE: Chest CT without contrast. Coronal and Sagittal reconstruction series were provided. One or more dose reduction techniques were used (e.g., Automated exposure control, adjustment of the mA and/or kV according to patient size, use of iterative reconstruction technique RADIATION DOSE SUMMARY: CTDlvol: 18.69 mGy DLP: 672.52 mGycm COMPARISON: 01/15/2025 FINDINGS: LUNGS: Mild centrilobular emphysema. Areas of minimal interlobular septal thickening. No pulmonary mass. No focal airspace consolidation. Several right upper lobe nodules, the largest is 4.4 mm, unchanged since the prior study. Minimal dependent atelectasis bilaterally. Calcified granulomas bilaterally. PLEURAL SPACES: No pleural effusion. No pneumothorax. HEART: Mild cardiomegaly. No significant pericardial effusion. Multivessel coronary artery and aortic valve calcification. MEDIASTINUM/HILUM: No significant lymphadenopathy. Calcified mediastinal and right hilar lymph nodes. AORTA: No aneurysm. Scattered calcified atherosclerosis. ESOPHAGUS: Unremarkable. CHEST WALL: The chest wall is unremarkable. BONES: No acute osseous abnormality. Prior ACDF with fusion hardware at C6 and C7. Degenerative changes of the spine. UPPER ABDOMEN: Multiple calcified splenic granulomas. Diffuse pancreatic lipomatosis. Calcified gallstones present. CT/Chest without Contrast IMPRESSION: 1. Mild centrilobular emphysema. 2. Cardiomegaly with minimal interstitial edema. 3. Right upper lobe nodules measuring up to 4.4 mm, unchanged since the prior study. According to the 2017 Fleischner criteria, if the patient is low risk, no routine follow-up is recommended. If the patien t is high risk, an optional CT at 12 months is recommended. 4. Coronary artery calcification (CAC) is present 5. Cholelithiasis. Reading Location: [id number]
[2025-03-21 08:34] VITALS: BP 130/70; PULSE 92; RESP 18; TEMP 37; O2SAT 92
[2025-03-21] MEDS: Cholecalciferol (VIT D3) 25 MCG TABLET (1,000 UNITS) 50 MCG PO (09:17)
--- NOTE | 2025-03-21 11:27 | CASEMGMT ---
LEONEL NEVILLE Assessment: Face to Face with pt for initial transition planning/care coordination assessment. LEONEL NEVILLE introduced self and role at [facility], pt voices understanding and consents to assessment. Pt is A&O x4 and answers all questions appropriately at this time. Care providers, pharmacy, and demographics verified/updated. Strata: 2 Admitting Dx: CHF exacerbation with hypoxia on exertion. PCP: Devon Specialists: Claudia, vascular; Sahra cardiology Preferred Pharmacy: [facility] pharmacy Insurance: [employer] Prescription Benefit: yes LNOK: Son, Gilberto; Son, Adelaida Living Arrangements: Pt lives with in a multi-level home with 4-5 steps to enter. Pt states he has a bedroom and bathroom on the main level. Pt son lives next door. ADLs: Pt reports I at baseline. Transportation: Pt calls [facility] Transportation Services Representative for transportation needs. DME: Grab bars, 3 canes, Walker, Wheelchair, shower chair. HHC/SNF: Denies Hx of. Pt states no concerns with going home at time of dc. Pt states no further concerns/needs. Pt currently on 2L O2 in room. Denies using oxygen at baseline. Discussed possible need for O2 at DC, provided verbal list of DME providers and Pt chose [facility] as provider of choice. CM to follow. Advised pt to ask CM if any further question/concerns/needs arise, voices understanding. Pt Goal: Home Plan: Home with family support. Follow for O2 needs. Merna CASTANEDA CM
[2025-03-21 17:45] VITALS: BP 133/58; PULSE 76; RESP 18; TEMP 36.7; O2SAT 93
--- NOTE | 2025-03-21 18:48 | PN.HOSP_ITS ---
Reason for Visit Chief Complaint: Leg swelling with discomfort and shortness of breath on exertion Subjective Subjective Patient was seen and examined today, he still remains on 2 L of oxygen at this time. I obtained a CT scan without contrast today to further chester to the lungs, there was noted to be mild emphysema, cardiomegaly was noted with minimal interstitial edema, there was noted to be right upper lobe nodules that were unchanged since the prior study in December 2024. Cholelithiasis was noted. Objective Data Objective Data Vital Signs: Vital Signs Temp Pulse Resp BP Pulse Ox O2 Del Method O2 Flow Rate 98.0 F 76 18 133/58 H 93 Nasal Cannula 2 03/21/25 17:45 03/21/25 17:45 03/21/25 17:45 03/21/25 17:45 03/21/25 17:45 03/21/25 17:45 03/21/25 17:45 Oxygen Flow Rate (L/min) 2 Oxygen Delivery Method Nasal Cannula Weight: 102.7 kg Body Mass Index (BMI) 37.6 Intake & Output: Intake and Output for Last 24 Hours 03/19/25 03/20/25 03/21/25 23:59 23:59 23:59 Intake Total 900 / 900 Output Total 1000 / 1000 Balance -100 / -100 Lab / Micro Data 03/21/25 04:21 03/21/25 04:21 Labs: Laboratory Results - last 24 hr 03/20/25 21:08: POC Glucose 176 H 03/21/25 04:21: WBC 4.7, RBC 3.51 L, Hgb 12.4 L, Hct 36.6 L, MCV 104.3 H, MCH 35.3 H, MCHC 33.9, RDW Std Deviation 51.9 H, RDW Coeff of Gem 13.4, Plt Count 182, MPV 9.4, Sodium 139, Potassium 3.8, Chloride 104, Carbon Dioxide 23.4, Anion Gap 12, BUN 24 H, Creatinine 1.50 H, Estim Creat Clear Calc 43.32 L, Est GFR (MDRD) Non-Af 47 L, BUN/Creatinine Ratio 16.1, Glucose 201 H, Calcium 8.7 03/21/25 08:31: POC Glucose 156 H 03/21/25 11:06: POC Glucose 149 H 03/21/25 16:09: POC Glucose 171 H Radiography Diagnostic Testing: Radiology Impression Chest CT 03/21/25 08:13 IMPRESSION: 1. Mild centrilobular emphysema. 2. Cardiomegaly with minimal interstitial edema. 3. Right upper lobe nodules measuring up to 4.4 mm, unchanged since the prior study. According to the 2017 Fleischner criteria, if the patient is low risk, no routine follow-up is recommended. If the patient is high risk, an optional CT at 12 months is recommended. 4. Coronary artery calcification (CAC) is present 5. Cholelithiasis. Reading Location: [facility] Physical Exam Const alert, oriented x3 and no apparent distress General Appearance: cooperative, well kempt and well developed Orientation / Consciousness: awake, oriented to person, oriented to place and oriented to time HEENT normocephalic, head/scalp atraumatic and moist oral mucous membranes Eyes PERRL, EOMs intact bilaterally and conjunctivae normal Neck supple, no JVD, thyroid normal and no carotid bruits General: trachea midline Resp normal respiratory effort, no retractions and no use of accessory muscles Resp Narrative: Breath sounds were diminished bilaterally, no rales rhonchi or wheezes are noted Auscultation: Negative for rales, rhonchi or wheezes Cardio regular rate, regular rhythm, S1 normal heart sound, S2 normal heart sound, no murmurs, no rub and no gallops GI normal to inspection, nondistended, normoactive bowel sounds, soft to palpation, non-tender and non-distended Extremity no clubbing, cyanosis or edema Skin no rashes or lesions noted General Skin Exam: no breakdown Neuro oriented x3, CN's II-XII intact bilaterally, moves all extremities, no focal motor deficits and no sensory deficits noted Sensorium / Orientation: awake and alert Speech: speech normal Psych affect normal Assessment & Plan Assessment/Plan (1) CHF (congestive heart failure): PLAN: Plan 1. Acute congestive heart failure with preserved ejection fraction-patient will remain on IV diuretics at this time, I examined the patient's chart and talked with the patient extensively today-he has had no history in the past of congestive heart failure. #2 multivessel coronary artery disease-patient is scheduled for intervention in [place] in the near future, he does not complain of any chest pain at this time, he will remain on his present medications #3 type 2 diabetes-blood sugars will be monitored, sliding scale insulin will be administered as indicated #4 peripheral vascular disease-patient will follow-up with vascular surgery as an outpatient #5 chronic kidney disease stage IIIa-secondary to type 2 diabetes, complicates care, management, recovery, and prognosis, BMP will be obtained tomorrow Acute on chronic congestive heart failure with preserved ejection fraction was ruled out Total clinical time spent by myself addressing the patient's medical issues, reviewing all of his data, and collaborating with the patient's care team: 35- minutes Charges/Coding Visit Charges Inpatient E&M: 48185 Subs Hosp L2
[2025-03-21 21:51] VITALS: BP 135/82; PULSE 66; RESP 14; TEMP 36.8; O2SAT 94
[2025-03-22 02:34] VITALS: BP 127/63; PULSE 86; RESP 20; TEMP 36.4; O2SAT 93
[2025-03-22 08:41] VITALS: O2SAT 93
[2025-03-22 08:44] VITALS: BP 130/63; PULSE 80; RESP 18; TEMP 36.8; O2SAT 94
[2025-03-22] MEDS: 0.9% Saline Lock 10 ML Syringe IV (08:49)
[2025-03-22] MEDS: Cholecalciferol (VIT D3) 25 MCG TABLET (1,000 UNITS) 50 MCG PO (08:50)
--- NOTE | 2025-03-22 11:44 | DCINST_ITS ---
Discharge Instructions DC O2, CPAP, BIPAP needs Home O2 Discharge instructions: No Dressing / Incision Discharge Activity: Return to Normal Activity Weight Bearing Status: Full weight bearing Follow Up Care Test Results: Test results from this visit will be discussed in further detail at your follow- up appointment, if applicable. Discharge Plan Admission Admit Date/Time: 03/20/25 17:30 Primary Reason for Your Visit: Congestive heart failure Attending Provider: Nick Jerry Primary Care Provider: César Osorio Consulting Providers: Burak Ocampo Discharge Orders/Prescriptions Prescriptions: New losartan 50 mg tablet 50 mg PO DAILY Qty: 30 0RF furosemide [Lasix] 40 mg tablet 40 mg PO BID Qty: 60 0RF potassium chloride [Klor-Con 10] 10 mEq tablet extended release 20 meq PO DAILY Qty: 60 0RF Continued nitroglycerin 0.4 mg tablet, sublingual 0.4 mg SUBLINGUAL Q5-15M PRN (Reason: chest pain) Qty: 25 3RF aspirin [Manan Chewable Aspirin] 81 mg tablet,chewable 162 mg PO QDAY Qty: 60 0RF berberine chloride 500 mg capsule 1,000 mg PO BID cilostazol 50 mg tablet 50 mg PO BID Qty: 60 1RF clopidogrel [Plavix] 75 mg tablet 75 mg PO DAILY Qty: 180 0RF baclofen 20 mg tablet 20 mg PO QHS Patient Comments: TAKE 1 TABLET BY MOUTH ONCE DAILY AT BEDTIME tamsulosin 0.4 mg capsule 0.4 mg PO QHS Patient Comments: TAKE 1 CAPSULE BY MOUTH EVERY DAY AT BEDTIME cholecalciferol (vitamin D3) [Vitamin D3] 50 mcg (2,000 unit) capsule 50 mcg PO DAILY mecobalamin (vitamin B12) 1,000 mcg tablet,chewable 1,000 mcg PO DAILY CURALIAN 2 cap PO BID [employer] HEALTH PROSTATE 1 tab PO DAILY PRO-CURSE 1 tab PO DAILY CIRULATION CALCIUM 1 tab PO DAILY DYSODIUM 1 tab PO DAILY gabapentin 100 mg capsule 100 mg PO QHS pioglitazone 45 mg tablet 45 mg PO DAILY glimepiride 4 mg tablet 4 mg PO BID simvastatin 80 mg tablet 80 mg PO QHS Qty: 90 3RF atenolol 25 mg tablet 25 mg PO DAILY Qty: 90 4RF Discontinued losartan-hydrochlorothiazide 50-12.5 mg tablet 1 tab PO DAILY Qty: 90 1RF Referrals / Follow Up: César Osorio MD [Primary Care Provider, [facility]] - Within 1 Month Disposition Disposition (needs filled in before D/C Order can be placed): Home, Self Care
[2025-03-22 11:55] VITALS: O2SAT 90; O2SAT 91
--- NOTE | 2025-03-22 11:55 | DS.PCM_ITS ---
Providers Date of Admission: 03/20/25 Date of Discharge: 03/22/25 Primary Care Physician: Dr. César Osorio MD Reason For Visit: CHF EXACERBATION W/ HYPOXIA ON EXERTION Diagnosis Discharge Diagnosis (1) CHF (congestive heart failure): Status: Acute Code(s): I50.9 - Heart failure, unspecified Plan 1. Acute congestive heart failure with preserved ejection fraction-patient will remain on IV diuretics at this time, I examined the patient's chart and talked with the patient extensively today-he has had no history in the past of congestive heart failure. 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, complicates care, management, recovery, and prognosis, BMP will be obtained tomorrow Acute on chronic congestive heart failure with preserved ejection fraction was ruled out Total clinical time spent by myself addressing the patient's medical issues, reviewing all of his data, and collaborating with the patient's care team: 35- minutes Medications at Discharge Home Medications nitroglycerin 0.4 mg sublingual tablet 0.4 mg sublingual Q5-15M PRN chest pain #25 tabs 11/04/18 baclofen 20 mg tablet 20 mg PO QHS Check with primary doctor 01/30/21 tamsulosin 0.4 mg capsule 0.4 mg PO QHS Check with primary doctor 01/30/21 gabapentin 100 mg capsule 100 mg PO QHS LEG CRAMPS 07/21/21 pioglitazone 45 mg tablet 45 mg PO DAILY DIABETES 07/21/21 glimepiride 4 mg tablet 4 mg PO BID DIABETES 01/11/22 simvastatin 80 mg tablet 80 mg PO QHS CHOLESTEROL #90 TABLETS 01/03/24 aspirin 81 mg chewable tablet (Manan Chewable Low Dose Aspirin) 162 mg (2 x 81 mg) PO QDAY PVD #60 tabs 07/10/24 berberine chloride 500 mg capsule 1,000 mg PO BID SUPPLEMENT 08/29/24 cilostazol 50 mg tablet 50 mg PO BID PVD #60 tabs 08/29/24 clopidogrel 75 mg tablet (Plavix) 75 mg PO DAILY PVD #180 tabs 10/09/24 atenolol 25 mg tablet 25 mg PO DAILY BP #90 tabs 10/15/24 CIRULATION CALCIUM 1 tab PO DAILY SUPPLEMENT 11/06/24 CURALIAN 2 cap PO BID SUPPLEMENT 11/06/24 DYSODIUM 1 tab PO DAILY SUPPLEMENT 11/06/24 PRO-CURSE 1 tab PO DAILY SUPPLEMENT 11/06/24 SUPER HEALTH PROSTATE 1 tab PO DAILY SUPPLEMENT 11/06/24 cholecalciferol (vitamin D3) 50 mcg (2,000 unit) capsule (Vitamin D3) 50 mcg PO DAILY SUPPLEMENT 11/06/24 mecobalamin (vitamin B12) 1,000 mcg chewable tablet 1,000 mcg PO DAILY SUPPLEMENT 11/06/24 furosemide 40 mg tablet (Lasix) 40 mg PO BID #60 tabs 03/22/25 losartan 50 mg tablet 50 mg PO DAILY #30 tabs 03/22/25 potassium chloride 10 mEq tablet,extended release (Klor-Con) 20 meq (2 x 10 mEq) PO DAILY #60 tabs 03/22/25 Hospital Course Operations None Procedures None Summary of Care Provided Minutes Spent on Discharge: 31 Hospital Course: This 80-year-old white male was seen in the emergency room at [facility] with complaints of leg edema and shortness of breath on exertion. Patient has a history of coronary artery disease and peripheral vascular disease. Workup in the emergency room included a chest x-ray which showed cardiomegaly and mild vascular congestion, CT of the abdomen pelvis was performed which showed moderate cardiomegaly with diffuse interstitial pulmonary densities concerning for CHF. Patient's beta natruretic peptide was 342, patient was given IV Bumex in the emergency room and he was admitted to PCU and placed on IV diuresis. Patient initially required supplemental oxygen but this was weaned off before his discharge. On 03/22/2025, patient was seen and examined: On examination he appeared in good health and spirits. Vital signs as documented. Skin warm and dry and without overt rashes. Neck without JVD, neck was supple, trachea midline, thyroid was normal. Lungs clear bilaterally, normal air movement was noted. Heart exam notable for regular rhythm, normal sounds and absence of murmurs, rubs or gallops. Abdomen unremarkable and without evidence of organomegaly, masses, or abdominal aortic enlargement. Bowel sounds are present, abdomen is not distended. Extremities nonedematous, no cyanosis was noted, no clubbing was noted. Neuro: Cranial nerves II through XII are grossly intact, no focal motor deficits were noted, sensation to light touch and pinprick intact, motor exam 5/5 throughout. Psych: Patient is alert and oriented x3, he does not appear anxious or depressed, he does not appear agitated. Patient was discharged home in stable condition on 03/22/2025. Weight / BMI Weight Weight: 102.7 kg Body Mass Index (BMI) 37.6 ABG / Lab / Microbiology Data 03/21/25 04:21 03/21/25 04:21 Laboratory: Laboratory Results - last 24 hr 03/21/25 16:09: POC Glucose 171 H 03/21/25 21:50: POC Glucose 121 H 03/22/25 06:45: POC Glucose 183 H D/C Instructions Weight Bearing Status: Full weight bearing DC O2, CPAP, BIPAP Needs Home O2 Discharge instructions: No Meaningful Use Info Meaningful Use Meaningful Use Diagnoses (Choose all that apply): CHF CHF NEYMAR/ARB ordered at discharge?: Yes Documented LVEF (%): 55 Discharge Plan Admission Admit Date/Time: 03/20/25 17:30 Primary Reason for Your Visit: Congestive heart failure Attending Provider: Nick Jerry Primary Care Provider: César Osorio Consulting Providers: Burak Ocampo Discharge Orders/Prescriptions Prescriptions: New losartan 50 mg tablet 50 mg PO DAILY Qty: 30 0RF furosemide [Lasix] 40 mg tablet 40 mg PO BID Qty: 60 0RF potassium chloride [Klor-Con 10] 10 mEq tablet extended release 20 meq PO DAILY Qty: 60 0RF Continued nitroglycerin 0.4 mg tablet, sublingual 0.4 mg SUBLINGUAL Q5-15M PRN (Reason: chest pain) Qty: 25 3RF aspirin [Manan Chewable Aspirin] 81 mg tablet,chewable 162 mg PO QDAY Qty: 60 0RF berberine chloride 500 mg capsule 1,000 mg PO BID cilostazol 50 mg tablet 50 mg PO BID Qty: 60 1RF clopidogrel [Plavix] 75 mg tablet 75 mg PO DAILY Qty: 180 0RF baclofen 20 mg tablet 20 mg PO QHS Patient Comments: TAKE 1 TABLET BY MOUTH ONCE DAILY AT BEDTIME tamsulosin 0.4 mg capsule 0.4 mg PO QHS Patient Comments: TAKE 1 CAPSULE BY MOUTH EVERY DAY AT BEDTIME cholecalciferol (vitamin D3) [Vitamin D3] 50 mcg (2,000 unit) capsule 50 mcg PO DAILY mecobalamin (vitamin B12) 1,000 mcg tablet,chewable 1,000 mcg PO DAILY CURALIAN 2 cap PO BID SUPER HEALTH PROSTATE 1 tab PO DAILY PRO-CURSE 1 tab PO DAILY CIRULATION CALCIUM 1 tab PO DAILY DYSODIUM 1 tab PO DAILY gabapentin 100 mg capsule 100 mg PO QHS pioglitazone 45 mg tablet 45 mg PO DAILY glimepiride 4 mg tablet 4 mg PO BID simvastatin 80 mg tablet 80 mg PO QHS Qty: 90 3RF atenolol 25 mg tablet 25 mg PO DAILY Qty: 90 4RF Discontinued losartan-hydrochlorothiazide 50-12.5 mg tablet 1 tab PO DAILY Qty: 90 1RF Referrals / Follow Up: César Osorio MD [Primary Care Provider, [facility]] - Within 1 Month Disposition Disposition (needs filled in before D/C Order can be placed): Home, Self Care Charges/Coding Visit Charges Inpatient E&M: 97604 Subs Hosp L2
[2025-03-22 13:39] VITALS: BP 131/56; PULSE 75; RESP 18; O2SAT 93
[2025-03-22 13:41] VITALS: O2SAT 93
== END 2025-03-22 14:02 | disposition home or self-care (01) | DRG 291 ==
LOC: ED 17:31 → PCU 17:50
PROVIDERS: Admitting Provider Hospitalist; Emergency Provider Emergency Medicine; PCP Family Medicine; Visit Provider Internal Medicine
DX: I13.0 Hypertensive heart and chronic kidney disease with heart failure and stage 1 through stage 4 chronic kidney disease, or unspecified chronic kidney disease (principal); I50.33 Acute on chronic diastolic (congestive) heart failure; J96.01 Acute respiratory failure with hypoxia; Z99.81 Dependence on supplemental oxygen; N18.31 Chronic kidney disease, stage 3a; E11.22 Type 2 diabetes mellitus with diabetic chronic kidney disease; E66.812 Obesity, class 2; G47.33 Obstructive sleep apnea (adult) (pediatric); I25.10 Atherosclerotic heart disease of native coronary artery without angina pectoris; E78.00 Pure hypercholesterolemia, unspecified; I25.2 Old myocardial infarction; Z79.84 Long term (current) use of oral hypoglycemic drugs; Z95.5 Presence of coronary angioplasty implant and graft; Z79.899 Other long term (current) drug therapy; Z79.82 Long term (current) use of aspirin; Z87.891 Personal history of nicotine dependence; Z79.02 Long term (current) use of antithrombotics/antiplatelets; Z68.37 Body mass index [BMI] 37.0-37.9, adult; Z96.659 Presence of unspecified artificial knee joint
CPT/HCPCS: 36415; 71045; 71250; 75635; 80048; 82962; 83880; 85025; 85027; 93005; 94668; 97802; 99285; Q9967; A4216; J1938; J2405

== ENCOUNTER → 2025-04-27 | Outpatient (CLI) | payer OTHER, SELFPAY ==
[2025-04-27 13:05] LABS: Anion Gap 12 (7-18); BUN 16 mg/dL (4-19); BUN/Creat Ratio 14.5 RATIO (10-20); Calcium,Total 9.2 mg/dL (7.6-11.0); Carbon Dioxide 22.2 mmol/L (20.0-29.0); Chloride 104 mmol/L (96-106); Glucose 251 mg/dL (70-99); Potassium 4.3 mmol/L (3.5-5.1); Pro- Brain NATRIURETIC PEPTIDE 479 pg/mL (<=1800)
== END | disposition home or self-care (01) ==
PROVIDERS: PCP Family Medicine; Referring Provider Student in an Organized Health Care Education/Training Program; Visit Provider Student in an Organized Health Care Education/Training Program
DX: I70.223 Atherosclerosis of native arteries of extremities with rest pain, bilateral legs (principal); I25.10 Atherosclerotic heart disease of native coronary artery without angina pectoris; Z95.5 Presence of coronary angioplasty implant and graft; R60.0 Localized edema
CPT/HCPCS: 36415; 80048; 83880